=== PATIENT | male | born 1940 | race Caucasian/White ===

== ENCOUNTER 2019-11-04 10:04 | Emergency (ER) | payer MEDICARE, SELFPAY ==
[2019-11-04 10:05] VITALS: BP 131/73; PULSE 64; RESP 18; TEMP 36.6; O2SAT 96; BMI 24.3
--- NOTE | 2019-11-04 10:18 | NURSING ---
NO OLD EKGS
--- NOTE | 2019-11-04 10:25 | CT_ITS ---
STUDY: CT BRAIN WITHOUT CONTRAST REASON FOR EXAM: Male, 79 years old. SYNCOPE, TRAUMA, LAC ABOVE RIGHT EYEBROW. RADIATION DOSAGE (If Supplied By Facility): CTDIvol = ( 44.99 ) mGy, DLP = ( 762.36 ) mGycm TECHNIQUE: Transaxial CT imaging of the brain was performed without administration of intravenous contrast material. Individualized dose optimization techniques were used for this CT. COMPARISON: No relevant priors. FINDINGS: Normal soft tissue structures. Normal calvarium. There is mild cerebral atrophy with widening of the extra-axial spaces and ventricular dilatation. Normal white matter tracts of the cerebral hemispheres. Normal basal ganglia and thalami. Normal brainstem. There is mild cerebellar atrophy. There is no intracranial hemorrhage. There are no findings of an acute ischemic infarction. Normal visualized paranasal sinuses. CT/Brain/Head without Contrast IMPRESSION: Chronic involutional changes of the brain. Electronically Signed: Aldo Everett, at 11:07 EDT , Service support ,
--- NOTE | 2019-11-04 10:25 | EKG12_ITS ---
Test Reason : Blood Pressure : / mmHG Vent. Rate : 061 BPM Atrial Rate : 061 BPM P-R Int : 164 ms QRS Dur : 092 ms QT Int : 450 ms P-R-T Axes : 030 017 027 degrees QTc Int : 453 ms Normal sinus rhythm Normal ECG Confirmed by ESTRELLITA MANCIA, BELEN ([id number]), graphic editor RODOLFO RAMEY ([id number]) on 11/09/2019 11:04:00 AM Referred By: VERONICA Confirmed By:BELEN HARO MD
--- NOTE | 2019-11-04 10:26 | RAD_ITS ---
STUDY: X-RAY CHEST REASON FOR EXAM: Male, 79 years old. Syncopal episode TECHNIQUE: PA and lateral views of the chest. COMPARISON: None. FINDINGS: EKG electrodes are seen. Hyperinflation. Minimal increased linear markings in the lingular segment of the left upper lobe suggestive of minimal left basilar atelectasis/scarring. There is no demonstrated pleural abnormality. Normal size heart. Normal mediastinum and dee dee. Normal visualized pulmonary arteries. There is atherosclerotic calcification of the aortic arch with tortuosity. There is demineralization of the osseous structures. Normal visualized ribs, clavicles, and shoulders. There is no demonstrated abnormality of the visualized soft tissue structures of the upper abdomen. RAD/Chest PA and Lateral IMPRESSION: Hyperinflation. Mild increased linear markings in the lingular segment of the left upper lobe suggesting mild scarring and/or atelectasis. Electronically Signed: Aldo Everett, at 11:11 EDT , Service support ,
--- NOTE | 2019-11-04 10:37 | ED.DCSUM_ITS ---
History of Present Illness Chief Complaint: Syncope Informant: Patient Narrative: Patient is a 79-year-old male with a past medical history of cluster headaches who presents to the emergency department for a syncopal episode. He states that he typically gets short of breath episodes that he relates to being on verapamil. Today he became very short of breath and tried to sit down. He ended up having a syncopal episode and fell onto his right forehead causing a small laceration above his right eye. He denies ever having a syncopal episode before in the past with this. He was only out for a few seconds. He denies having any chest pain or any heart palpitations. At this time his shortness of breath has completely resolved. Denies having any symptoms whatsoever at this time. No headache, vision changes. No weakness or loss of sensation in extremity. No neck pain or back pain. He is not on any anticoagulation medications. He denies any history of heart attack, strokes or DVT/PE. He has not had any leg swelling or calf pain. No recent prolonged periods of immobility. He has a former smoking history. Denies any alcohol or drug use. He was able to ambulate after the event. Past Medical History - Allergies and Home Meds Allergies/Adverse Reactions: Allergies Penicillins Allergy (Verified 11/04/19 10:08) NEEDS FOLLOW-UP fermented products Allergy (Uncoded 11/04/19 10:09) NEEDS FOLLOW-UP Primary Care Physician: Daniel Damico MD [Primary Care Provider] - 1 Day Prior records reviewed: Yes Past Medical History: - - Cluster headaches, hypothyroidism Lives: Spouse/ Significant Other Smoking Status: Former smoker Alcohol: None Drugs: None Review of Systems All systems negative except as indicated General: Denies: Chills, Fever, Sweats Eyes: Denies: Visual changes - bilaterally, Diplopia ENT: Denies: Rhinorrhea, Sore throat Cardiovascular: Denies: Chest pain, Palpitations Respiratory: Reports: Dyspnea - Resolved. Denies: Cough, Dyspnea on exertion Gastrointestinal: Denies: Abdominal pain, Nausea, Vomiting, Diarrhea Genitourinary: Denies: Dysuria, Hematuria, Frequency Musculoskeletal: Denies: Back pain, Extremity Pain Skin: Denies: Rash, Wounds Neurological: Denies: Headache, Weakness, Numbness Physical Exam Vital Signs/Narrative: Vital Signs Temp Pulse Resp BP Pulse Ox 11/04/19 10:05 97.9 F 64 18 131/73 H 96 Inital Vital Signs reviewed: Yes General: Well nourished, Well developed, No Acute Distress Head: Normocephalic, - - 3 cm horizontal laceration at the right eyebrow. No active bleeding. Eyes: Perrl, EOMI ENT: Moist mucous membranes, No rhinorrhea, TM's clear Neck: Supple, Nontender Cardiovascular: Regular rate, Regular rhythm, No murmurs Respiratory: No distress, CTA bilaterally, Chest nontender Abdomen: Soft, Nontender, Nondistended, Normal bowel sounds Back: Nontender, Normal Inspection. Negative for: Spinal tenderness Extremities: Nontender, No edema. Negative for: Tenderness, Edema, Calf Tenderness Skin: Normal color, No rash Neurological: Alert, Oriented x3, Cranial nerves II-XII grossly intact, Normal Strength, Normal Sensation Psychological: Normal affect, Normal Mood Diagnostic/Tx/Re-eval - EKG Initial EKG Interpretation: - - Rate of 61 bpm and normal sinus rhythm. Normal intervals. Normal axis. No ST elevations or depressions appreciated. No T wave abnormalities. No prior EKG for comparison. - Medical Decision Making Patient presents the emerge department after a shortness of breath episode. He has had these shortness of breath episodes before but never passed out from them. We will do a cardiac work-up at this time. He does not have any DVT/PE r isk factors. We will do a CT scan of his head given the head trauma. Laceration will require repair. Patient states his last tetanus shot was in the last 5 years. Lab work showed the patient's creatinine to be slightly elevated. No previous lab work to compare this to. He is unaware of having this elevated before in the past. Otherwise troponin within normal limits. No EKG changes. He is not overly anemic. I did offer hospitalization for echocardiogram given the syncopal episode today. He states that he believes it is due to his shortness of breath which he has had long-term and does not want to stay in the hospital for this. I discussed risks associate with going home and having this done as an outpatient. He understands. He will need to have close follow-up for the syncopal episode, shortness of breath as well as his mildly elevated creatinine. He needs to have the sutures removed in 5 to 7 days. He is to monitor for evidence of infection. Warning signs and symptoms including any worsening shortness of breath, any more syncopal episodes or developing any chest pain he needs to return to the emerge department immediately. He understands and is agreeable with this plan. Procedures Procedure(s): Laceration repair: Informed consent was obtained before procedure started. The appropriate timeout was taken. The area was prepped and draped in the usual sterile fashion. Local anesthesia was achieved using LET. The wound was copiously irrigated. 3 6-0 Ethilon simple interrupted sutures were placed. Wound was dressed with only antibiotic ointment and anticipatory guidance, as well as standard post procedure care, was explained. Return precautions are given. The patient tolerated the procedure well without any apparent complications. Follow-up visit set for suture removal and evaluation of laceration. ED Disposition - Plan for ED Patient: Disposition: Home or Assisted Living Diagnosis: Syncope, Laceration of face Instructions: What Is Syncope?, ED Laceration All Closures Referrals: Daniel Damico MD [Primary Care Provider] - 1 Day Additional Instructions: Please contact PCP in regard to syncopal episode. Can discuss mildly elevated creatinine. Sutures will need to be removed in 5 to 7 days. Please monitor for evidence of infection.
[2019-11-04 10:40] VITALS: BP 129/72; PULSE 62; RESP 15; O2SAT 98
[2019-11-04 10:54] LABS: Absolute Lymphocyte Count 1.36 X10^3/uL (0.83-4.51); Absolute Neutrophil Count 5.3 X10^3/uL (2.0-7.7); Basophil# 0.04 X10^3/uL; Basophil% 0.5 % (0-1); Eosinophils% 1.4 % (0-5); Hematocrit 43.2 % (40-54); Hemoglobin 14.3 g/dL (13.0-16.5); Lymphocyte # 1.36 X10^3/ul (4.0); Lymphocyte % 18.5 % (19-41); Mean Corp Hgb Conc 33.1 g/dL (32-36); Mean Corpuscular Hgb 31.7 pg (27.0-32.0); Mean Corpuscular Volume 95.8 fL (80-94); Mean Platelet Vol. 10.5 fl (6.2-12.0); Monocyte# 0.49 X10^3/uL; Monocyte% 6.7 % (0-10); NRBC Flagged by Analyzer 0 % (0-5); Neutrophil # 5.34 X10^3/uL (2.7-7.7); Neutrophil % 72.6 % (47-70); Platelet Count 183 K/mm3 (150-450); RBC Distribution Width CV 11.7 % (11.6-14.6); Red Blood Count 4.51 M/mm3 (4.6-6.2); White Blood Count 7.4 K/mm3 (4.4-11.0)
[2019-11-04 11:10] LABS: Anion Gap 6 (5-15); BUN 23 mg/dL (7-18); BUN/Creat Ratio 15.1 RATIO (10-20); Chloride 101 mmol/L (98-107); Creatinine, Serum 1.52 mg/dL (0.70-1.30); EST Glomerular Filtration Rate 47 mL/min (>60); Est Glom Filt Rate - Afr Amer 57 mL/min (>60); Estimated Creatinine Clearance 40.69 ml/min; Glucose 172 mg/dL (74-106); Potassium 4.4 mmol/L (3.5-5.1); Sodium Level 137 mmol/L (136-145)
[2019-11-04] MEDS: Lidocaine/Epi/Tetracaine 50 ML 1 APPLIC TOPICAL (11:10)
[2019-11-04 11:55] VITALS: BP 132/67; PULSE 70; RESP 18; O2SAT 96
== END 2019-11-04 11:55 | disposition home or self-care (01) ==
PROVIDERS: Emergency Provider Emergency Medicine; PCP Family Medicine
DX: R55 Syncope and collapse (principal); S01.111A Laceration without foreign body of right eyelid and periocular area, initial encounter; X58.XXXA Exposure to other specified factors, initial encounter; Y93.89 Activity, other specified; Y92.9 Unspecified place or not applicable; E03.9 Hypothyroidism, unspecified; Z87.891 Personal history of nicotine dependence
CPT/HCPCS: 12013; 70450; 71046; 80048; 84484; 85025; 93005; 99284; A4216

== ENCOUNTER → 2019-11-24 14:44 | Outpatient (CLI) | payer MEDICARE, SELFPAY ==
[2019-11-04 10:05] VITALS: BMI 24.3
--- NOTE | 2019-11-24 14:47 | ECHOD_ITS ---
Reason For Study: Syncope Procedure This was a 2D Doppler, Color Flow transthoracic echocardiogram. Contrast injection was performed. Exam performed in department. Left Ventricle Normal LV size. Left ventricular systolic function is normal. The estimated ejection fraction is 60 %. Diastolic function is indeterminate. No regional wall motion abnormalities noted. Right Ventricle Normal RV size. Normal systolic function. Atria Normal left atrium. Normal right atrium. No doppler evidence for ASD. Bubble contrast study negative for right to left interatrial shunt. Mitral Valve There is no mitral annular calcification. Mild diffuse mitral valve thickening. Equivocal mitral valve prolapse. Mild (1+) mitral valve insufficiency. Tricuspid Valve Normal tricuspid valve. Mild tricuspid valve insufficiency. Right ventricular systolic pressure estimated to be 19 mmHg. Aortic Valve Trisinus/trileaflet aortic valve. Mild diffuse aortic valve thickening. Mild focal aortic valve calcification. Aortic sclerosis, no stenosis. Pulmonic Valve The pulmonic valve is not well visualized. Trivial pulmonic valve insufficiency. Great Vessels Normal sized aortic root. Pericardium/Pleural No pericardial effusion. Medication 22 gauge I.V. with prn adaptor inserted into right arm. Performed a rapid injection of agitated mix of 9 cc saline and 1cc air to assess for atrial septal defect. MMode/2D Measurements & Calculations LVIDd: 5.0 cm IVSd: 0.90 cm LVOT diam: 2.3 cm LVIDs: 2.9 cm LVPWd: 0.80 cm RVDd: 4.2 cm FS: 43.0 % LVOT area: 4.1 cm2 Ao root diam: 3.8 cm LAV(MOD-bp): 57.6 ml LA A4 area: 15.7 cm2 LA dimension: 3.7 cm LAV(MOD-bp) Indexed: 29.6 ml/m2 LAV(MOD-sp2): 70.9 ml LAV(MOD-sp4): 42.7 ml RA A4 area: 22.5 cm2 Time Measurements MV dec time: 0.23 sec Doppler Measurements & Calculations MV E max paolo: 70.6 cm/sec Lat Peak E' Paolo: 6.9 cm/sec Med Peak E' Paolo: 4.3 cm/sec MV A max paolo: 85.3 cm/sec E/E' lat: 10.2 E/E' med: 16.3 MV E/A: 0.83 MV V2 max: 77.6 cm/sec MV P1/2t max paolo: 63.1 cm/sec Ao V2 max: 103.5 cm/sec MV max P.4 mmHg MV P1/2t: 138.8 msec Ao max P.3 mmHg MV V2 mean: 40.6 cm/sec MV dec slope: 133.1 cm/sec2 JUAN CARLOS(V,D): 4.0 cm2 MV mean P.77 mmHg MV V2 VTI: 32.2 cm MVA(P1/2t): 1.6 cm2 AI max paolo: 193.4 cm/sec LV V1 max: 102.7 cm/sec PA V2 max: 84.7 cm/sec AI max P.1 mmHg LV V1 max P.2 mmHg AI dec slope: 123.6 cm/sec2 AI P1/2t: 458.1 msec TR max paolo: 197.8 cm/sec TR max P.7 mmHg Interpretation Summary Left ventricular systolic function is normal. The estimated ejection fraction is 60 %. Mild diffuse mitral valve thickening. Equivocal mitral valve prolapse. Mild (1+) mitral valve insufficiency. Mild tricuspid valve insufficiency. Aortic sclerosis, no stenosis. Trivial pulmonic valve insufficiency. Right ventricular systolic pressure estimated to be 19 mmHg. Diastolic function is indeterminate. Bubble contrast study negative for right to left interatrial shunt. Ordering Physician: Zelalem Mukherjee Referring Physician: Zelalem Mukherjee Performed By: Ivan Lancaster RCS
== END ==
PROVIDERS: PCP Family Medicine; Referring Provider Nurse Practitioner Family; Visit Provider Nurse Practitioner Family
DX: R55 Syncope and collapse (principal)
CPT/HCPCS: 93306

== ENCOUNTER 2023-07-14 08:25 | Emergency (ER) | payer MEDICARE, SELFPAY ==
[2023-07-14 08:26] VITALS: BP 159/90; PULSE 73; RESP 18; TEMP 35.9; O2SAT 98; BMI 25.0
--- NOTE | 2023-07-14 08:51 | EX.ED.DYSGE1 ---
HPI History of Present Illness Chief Complaint: Nosebleed Informant: patient Narrative Narrative: Patient with 1-1.5 hours of spontaneous onset left-sided nosebleed, swallowing some blood,, no injury, no recent URI or blowing his nose, started out of nowhere while he was walking from 1 room to the other. No systemic symptoms or lightheadedness/near syncope symptoms of blood loss. Takes no antiplatelet or anticoagulant medications. PFSH PFSH Home Medications levothyroxine 112 mcg tablet 112 mcg PO DAILY 11/04/19 [History Last Taken 07/14/23] tamsulosin 0.4 mg capsule 0.4 mg PO QHS 11/04/19 [History Last Taken 07/14/23] verapamil 80 mg tablet 2 tab PO QHS 11/04/19 [History Last Taken Unknown] Allergy/AdvReac Type Severity Reaction Status Date / Time Penicillins Allergy NEEDS Verified 07/14/23 08:25 FOLLOW-UP fermented products Allergy NEEDS Uncoded 11/04/19 10:09 FOLLOW-UP Social History Smoking Status: Former smoker ROS ROS ED Constitutional Constitutional ED: Denies chills or fever(s) ENT ENT ED: Reports epistaxis; Denies ear pain, facial pain or sore throat Cardiovascular Cardiovascular: Denies chest pain, lightheadedness or palpitations Respiratory/Chest Respiratory/Chest: Denies dyspnea Gastrointestinal Gastrointestinal: Denies nausea or vomiting Integumentary Denies rash Neurologic Neurologic: Denies headache(s), paresthesias or weakness EXAM Physical Exam Const Vital Signs: 07/14/23 08:26 Temperature 96.6 F L Temperature Source Temporal Pulse Rate 73 Respiratory Rate 18 Blood Pressure 159/90 H Blood Pressure Mean 113 Pulse Ox 98 Oxygen Delivery Method Room Air Positive well nourished and well developed General Appearance ED: well developed and NAD HEENT Reports moist mucous membranes HEENT Narrative: Some blood in the posterior oropharynx, no active bleeding. Blood in the left naris, the right side is clear. There appears to be a source at the septum anteriorly left naris. It is not appear to be actively bleeding. Eyes PERRL and EOMs intact bilaterally Chest Wall inspection of chest normal and palpation of chest normal Neuro oriented x3, CN's II-XII intact bilaterally, no sensory deficits noted and gait normal Motor Exam: strength 5/5 throughout Psych mental status grossly normal Skin no rashes or lesions noted and no wounds MDM MDM MDM Narrative Medical decision making narrative: Epistaxis care: Patient was observed for short period time while we waited for pharmacy to send his medications, and when I got them to evaluate him, he states the bleeding seems to stop, and he is a breathing air through the left side without difficulty, I removed a small clot when I removed the Kleenex from his nose, but he has no other feelings of residual clotting/clots. Therefore I placed an Afrin-soaked pledget into his left naris, observed him for 20 minutes and then removed it for further inspection. The nidus appears to have no active bleeding at the septum, there are 2 of them; these was then chemically cauterized with silver nitrate, which he tolerated well without difficulty or complication. His vital signs are normal without tachycardia and he has no symptoms of anemia so I do not think we need to check blood counts here he did not lose a lot of blood according to him. Discharge Plan Triage Chief Complaint: Nosebleed ED Provider: Salomon Marquez Dx/Rx/DC Orders Clinical Impression: Acute anterior epistaxis Instructions: ED Epistaxis (Adult) Prescriptions: No Action verapamil 80 MG tablet 2 tab PO QHS tamsulosin 0.4 MG capsule 0.4 mg PO QHS levothyroxine 112 MCG tablet 112 mcg PO DAILY Primary Care Provider: Daniel Damico Referrals: Daniel Damico MD [Primary Care Provider] - As Needed Disposition Disposition: Home, Self Care
[2023-07-14] MEDS: Oxymetazoline 0.05% 1 SPRAY SPRAY.BTL 2 SPRAY NASAL (09:20)
[2023-07-14 10:49] VITALS: RESP 16
== END 2023-07-14 10:53 | disposition home or self-care (01) ==
PROVIDERS: Emergency Provider Emergency Medicine; PCP Family Medicine; Visit Provider Emergency Medicine
DX: R04.0 Epistaxis (principal); Z87.891 Personal history of nicotine dependence; Z79.899 Other long term (current) drug therapy
CPT/HCPCS: 30901; 99282

== ENCOUNTER 2025-02-24 07:50 | Inpatient (IN) | payer MEDICARE, SELFPAY ==
[2025-02-24] VITALS (23 sets, daily range): BP systolic 107–173; BP diastolic 66–106; PULSE 60–78; RESP 16–18; TEMP 36.2–37.2; O2SAT 96–99; BMI 23.5; BMI 24.6
--- NOTE | 2025-02-24 08:30 | RAD_ITS ---
PROCEDURE: RAD/Chest 1 View (Portable)
[2025-02-24 08:41] LABS: Hematocrit 43.4 % (40-54); Hemoglobin 14.4 g/dL (13.0-16.5); Immature Granulocytes Count 0.030 X10^3/uL (0.0-0.0); Mean Corp Hgb Conc 33.2 g/dL (32-36); Mean Corpuscular Volume 93.3 fL (80-94); Mean Platelet Vol. 9.8 fl (6.2-12.0); NRBC Flagged by Analyzer 0 % (0-5); Platelet Count 225 K/mm3 (150-450); RBC Distribution Width CV 12.2 % (11.6-14.6); RBC Distribution Width SD 42.0 fl (35.1-43.9); Red Blood Count 4.65 M/mm3 (4.6-6.2); White Blood Count 9.3 K/mm3 (4.4-11.0)
[2025-02-24 09:05] LABS: Anion Gap 9 (5-15); BUN 19 mg/dL (4-19); BUN/Creat Ratio 16.7 RATIO (10-20); Calcium,Total 9.4 mg/dL (7.6-11.0); Carbon Dioxide 24.9 mmol/L (21.0-32.0); Chloride 100 mmol/L (98-108); Estimated Creatinine Clearance 50.24 ml/min (50-250); Glucose 148 mg/dL (70-99); Potassium 4.1 mmol/L (3.3-5.1)
[2025-02-24 09:06] LABS: Troponin T High Sensitivity 218 ng/L (<=22)
--- NOTE | 2025-02-24 09:31 | ED.VIS.CHEST ---
HPI History of Present Illness Chief Complaint: Shortness of Breath Informant: patient Narrative Narrative: Patient is an 85-year-old male with a history of HTN presenting with dyspnea and chest tightness on exertion for the past 3-4 days. Resolves with rest. - Reports onset of symptoms yesterday while walking; typically walks 4 blocks, but experienced dyspnea and right-sided chest tightness after 2 blocks, prompting him to stop. - Symptoms worsened in the afternoon with more severe pain and difficulty taking deep breaths; pain described as a tightness in the right upper chest. - Symptoms resolve within 5-10 minutes of rest. - This morning, experienced similar symptoms after walking 1 block. - Denies diaphoresis, syncope, abdominal pain, or emesis. - Recent medication change on Saturday: increased verapamil from 80 mg to 120 mg ER for HTN management; has a 25-year history of verapamil use for headaches, but this is the first time using the ER formulation. - Consulted with a physician yesterday regarding the possibility of medication-related symptoms; was advised that symptoms are unlikely related to the medication change. - No known cardiac history; last stress test was 4-6 years ago, with no reported abnormalities. [facility] Medical History Hypertension Home Medications ?Medication ?Instructions ?Recorded ?Last Taken ?Type tamsulosin 0.4 mg capsule 0.8 mg PO QHS prostate 11/04/19 07/14/23 History aspirin 81 mg tablet,delayed 81 mg PO BREAKFAST #0 tabs 02/24/25 Unknown Rx release atorvastatin 40 mg tablet 40 mg PO QHS #0 tabs 02/24/25 Unknown Rx finasteride 5 mg tablet 5 mg PO QHS prostate 02/24/25 02/23/25 History levothyroxine 100 mcg tablet 100 mcg PO DAILY thyroid 02/24/25 02/24/25 History (Synthroid) losartan 100 mg tablet 100 mg PO QHS BP 02/24/25 02/23/25 History melatonin 3 mg capsule 9 mg PO QHS sleep 02/24/25 02/23/25 History metoprolol tartrate 25 mg tablet 25 mg PO BID #0 tabs 02/24/25 Unknown Rx multivit,Ca,min-iron 8 mg-folic 1 tab PO DAILY supplement 02/24/25 02/24/25 History acid 200 mcg-lycopene 600 mcg tablet (Men's Daily Multivitamin) verapamil 120 mg tablet,extended 120 mg PO QHS bp 02/24/25 Unknown History release Allergy/AdvReac Type Severity Reaction Status Date / Time Penicillins Allergy NEEDS Verified 02/24/25 07:51 FOLLOW-UP fermented products Allergy NEEDS Uncoded 11/04/19 10:09 FOLLOW-UP Surgical History (Updated 02/24/25 @ 12:51 by Sherie Izaguirre) History of meniscectomy of left knee Social History Smoking Status: Former smoker ROS ROS ED Constitutional Constitutional ED: Denies chills or fever(s) Eyes Eyes: Denies change in vision or diplopia ENT ENT ED: Denies rhinorrhea or sore throat Cardiovascular Cardiovascular: Reports as per HPI and chest pain; Denies orthopnea, palpitations or radiating jaw, neck or arm pain Respiratory/Chest Respiratory/Chest: Reports dyspnea on exertion; Denies cough or orthopnea Gastrointestinal Gastrointestinal: Denies abdominal pain, diarrhea, nausea or vomiting Genitourinary Genitourinary ED: Denies dysuria or hematuria Musculoskeletal Musculoskeletal: Denies back pain or neck pain Integumentary Denies abscess or rash Neurologic Neurologic: Denies headache(s), paresthesias or weakness Psychiatric Psychiatric: Denies anxiety or suicidal thoughts EXAM Physical Exam Const Vital Signs: 02/24/25 07:51 02/24/25 08:08 02/24/25 08:30 Temperature 98.9 F Temperature Source Oral Pulse Rate 72 Respiratory Rate 18 Respiratory Effort Normal Respiratory Pattern Normal Blood Pressure 136/87 H Blood Pressure Mean 103 Pulse Ox 99 Oxygen Delivery Method Room Air Room Air Room Air 02/24/25 08:51 02/24/25 09:00 Temperature Temperature Source Pulse Rate 66 66 Respiratory Rate 18 18 Respiratory Effort Respiratory Pattern Blood Pressure 123/66 H 123/66 H Blood Pressure Mean 85 85 Pulse Ox 99 99 Oxygen Delivery Method Positive well nourished and well developed General Appearance ED: well developed and NAD HEENT Reports moist mucous membranes normocephalic and atraumatic Eyes PERRL and EOMs intact bilaterally Neck full ROM and supple Resp normal respiratory effort and clear to auscultation bilaterally Cardio regular rate, regular rhythm and no murmurs GI non-tender and non-distended Auscultation: normoactive bowel sounds Palpation: soft Back/Spine no CVA tenderness General Back: other FROM Extremity normal to inspection General Extremety ED: Negative for edema, pulses abnormal or tenderness General Extremity: Negative for edema or pulses abnormal Neuro oriented x3, CN's II-XII intact bilaterally and no sensory deficits noted Sensorium / Orientation: awake and alert Motor Exam: strength 5/5 throughout Skin no rashes or lesions noted and no wounds Heart Score History: Highly Suspicious ECG: Nonspecific Repolarization Age: >/= 65 years Risk Factors: 1 or 2 Risk Factors Troponin: >1 - <3 Normal Limit Score: 7 MDM MDM MDM Narrative Medical decision making narrative: Assessment: The patient is an 85-year-old male with PMH of hypertension presenting for exertional right-sided chest tightness and shortness of breath. Symptoms occur after walking 1?4 blocks and resolve within minutes of rest; no associated diaphoresis, nausea, or syncope. EKG demonstrates nonspecific ST-T wave abnormalities without ST elevation or depression, and troponin is 218, both concerning for an evolving acute coronary syndrome despite current asymptomatic status. Plan: - Administered aspirin in the ED - Pending stress test discussion after initial workup - Continue monitoring while further disposition is determined Diagnostics: - EKG interpreted: nonspecific ST-T wave abnormalities; no ST elevations or depressions. Independently interpreted by meSalomon. - Labs: Troponin 218 ng/L Reevaluations: - Patient currently asymptomatic, hemodynamically and clinically stable after initial evaluation - Discussed with cardiology Dr. Chau. He recommends Nitropaste 1 inch, Brilinta load, heparin drip all of which were started in the ED. Patient stable clinically hemodynamically and asymptomatic. Lab Data Attestation: I reviewed the patient's lab results. Labs: Laboratory Results - last 24 hr 02/24/25 08:30 WBC 9.3 RBC 4.65 Hgb 14.4 Hct 43.4 MCV 93.3 MCH 31.0 MCHC 33.2 RDW Std Deviation 42.0 RDW Coeff of Charles 12.2 Plt Count 225 MPV 9.8 Immature Gran % (Auto) 0.300 Neut % (Auto) 73.8 H Lymph % (Auto) 17.2 L [place] % (Auto) 6.5 Eos % (Auto) 1.7 Baso % (Auto) 0.5 Absolute Neuts (auto) 6.8 Absolute Lymphs (auto) 1.59 Nucleated RBC % 0 PT 13.4 INR 1.0 APTT 27.5 Sodium 135 Potassium 4.1 Chloride 100 Carbon Dioxide 24.9 Anion Gap 9 BUN 19 Creatinine 1.11 Estim Creat Clear Calc 50.24 Est GFR (MDRD) Non-Af 65 BUN/Creatinine Ratio 16.7 Glucose 148 H Calcium 9.4 Troponin T High Sens 218 H* Radiography Chest X-Ray - ED: 1 View, Read by ED Physician and No Acute Disease Diagnostic Testing: Clinical Impression(s) from Imaging Studies Chest X-Ray 02/24/25 08:30 IMPRESSION: No acute cardiopulmonary process. Reading Location: [facility] Rhythm Strip Rhythm Strip: Sinus Rhythm Rate: 75 Ectopy: PAC(s) EKG Initial EKG: Attestation: I personally reviewed and interpreted this EKG as follows: Interpretation: Sinus Rhythm, No Acute Injury Pattern, AV Block (1st deg ) and Non-Specific ST Changes (lateral ? - nonfocal) Prior EKG tracings: available for review Prior: Changed Management Discussion w/another healthcare provider: Hospitalist and Tele Marketing Executive (cardiology teagan) Critical Care Time Critical Care Time: Yes Critical care time (excluding procedures): 30-74 minutes (35 min), Including time spent:, Discussing w/Patient &/or Family/Billboard Mechanic, Discussing w/Consultants, Arranging Admission or Transfer and Performing Direct Patient Care at Bedside Discharge Plan Dx/Rx/DC Orders Clinical Impression: ACS (acute coronary syndrome) Disposition Disposition: Acute Care Hospital [facility] Discharge Date/Time: 02/24/25 10:57
--- NOTE | 2025-02-24 09:46 | PCM.HP.STD ---
HPI - General General Date of Admission: 02/24/25 Date of Service: 02/24/25 Chief Complaint: Chest pain HPI Narrative ELSA ARMENDARIZ, is a 85 M who presents with chest discomfort and shortness of breath. Per patient he was in usual state of health a day prior to his admission when he noticed chest pain which he described as discomfort across the chest. Patient stated he has a high tolerance for pain therefore did not pay attention to it much. He however did notice increasing shortness of breath on the morning of his regurgitation with minimal activity he therefore made a decision to present to the ED. Patient was found to have elevated troponin in the ED. An assessment of acute non-STEMI was made. Cardiology was consulted patient started on heparin [facility] Medical History (Updated 02/24/25 @ 10:[address] Garrick Chau MD) Hypertension Home Medications ?Medication ?Instructions ?Recorded ?Last Taken ?Type levothyroxine 112 mcg tablet 112 mcg PO DAILY 11/04/19 07/14/23 History tamsulosin 0.4 mg capsule 0.4 mg PO QHS 11/04/19 07/14/23 History verapamil 80 mg tablet 2 tab PO QHS 11/04/19 Unknown History Allergy/AdvReac Type Severity Reaction Status Date / Time Penicillins Allergy NEEDS Verified 02/24/25 07:51 FOLLOW-UP fermented products Allergy NEEDS Uncoded 11/04/19 10:09 FOLLOW-UP Social History Smoking Status: Former smoker ROS ROS Narrative GENERAL: denies fever, chills, night sweats, HEENT: denies headache, sinus congestion, or drainage, dysphagia RESPIRATORY: shortness of breath, dyspnea on exertion CARDIAC: chest pain, GASTROINTESTINAL: denies abdominal pain, nausea, GENITOURINARY: denies dysuria, urgency, frequency, EXTREMITY: denies swelling MUSCULOSKELETAL: denies current joint pain or tenderness NEUROLOGIC: denies focal numbness, weakness, tingling HEMATOLOGIC: denies easy bruising and/or hemorrhage INTEGUMENT: denies rashes PSYCHIATRIC: denies suicidal or homicidal ideation Vital Signs Vital Signs Vital Signs: 02/24/25 07:51 02/24/25 08:08 02/24/25 08:30 Temperature 98.9 F Temperature Source Oral Pulse Rate 72 Respiratory Rate 18 Respiratory Effort Normal Respiratory Pattern Normal Blood Pressure 136/87 H Blood Pressure Mean 103 Pulse Ox 99 Oxygen Delivery Method Room Air Room Air Room Air 02/24/25 08:51 02/24/25 09:00 Temperature Temperature Source Pulse Rate 66 66 Respiratory Rate 18 18 Respiratory Effort Respiratory Pattern Blood Pressure 123/66 H 123/66 H Blood Pressure Mean 85 85 Pulse Ox 99 99 Oxygen Delivery Method Weight Weight: 74.389 kg Body Mass Index (BMI) 23.5 Physical Exam Narrative GENERAL: cooperative HEENT: Atraumatic; normocephalic EYES; Anicteric, Normal Conjunctiva NECK; supple, normal thyroid, RESPIRATORY: Diminished to auscultation CARDIOVASCULAR: Regular S1 S2, GI: soft, normoactive bowel sounds, : No Renal angle tenderness; EXTREMITIES: No edema, no clubbing, MUSCULOSKELETAL: no muscle wasting NEURO: Awake; no lateralizing signs. SKIN: No Rash PSYCH; Flat affect Results Lab / Micro Data 02/24/25 08:30 02/24/25 08:30 Labs: Laboratory Results - last 24 hr 02/24/25 08:30: WBC 9.3, RBC 4.65, Hgb 14.4, Hct 43.4, MCV 93.3, MCH 31.0, MCHC 33.2, RDW Std Deviation 42.0, RDW Coeff of Charles 12.2, Plt Count 225, MPV 9.8, Immature Gran % (Auto) 0.300, Neut % (Auto) 73.8 H, Lymph % (Auto) 17.2 L, [place] % (Auto) 6.5, Eos % (Auto) 1.7, Baso % (Auto) 0.5, Absolute Neuts (auto) 6.8, Absolute Lymphs (auto) 1.59, Nucleated RBC % 0, Sodium 135, Potassium 4.1, Chloride 100, Carbon Dioxide 24.9, Anion Gap 9, BUN 19, Creatinine 1.11, Estim Creat Clear Calc 50.24, Est GFR (MDRD) Non-Af 65, BUN/Creatinine Ratio 16.7, Glucose 148 H, Calcium 9.4, Troponin T High Sens 218 H* Rhythm Strip Rhythm Strip: Sinus Rhythm Rate: 75 Ectopy: PAC(s) Imaging Radiology Impression Chest X-Ray 02/24/25 08:30 IMPRESSION: No acute cardiopulmonary process. Reading Location: [facility] Assessment & Plan Assessment/Plan (1) ACS (acute coronary syndrome): PLAN: Plan Patient is an 85-year-old gentleman presenting with exertional chest pain with elevated troponin 1. Acute non-STEMI ? Patient admitted to monitored bed treatment initiated per protocol with antiplatelet therapy heparin beta-vance statin therapy. As part of patient's management cardiology was consulted and ordered 2D echo. Patient was kept n.p.o. for possible left heart cath with intervention if warranted 2. Hypertension ? Recently diagnosed patient is on verapamil which she was apparently using for cluster headaches 3. Cluster headaches ? Patient is on verapamil 4. BPH with lower urinary obstructive symptoms - Patient treated with tamsulosin 5. Hypothyroidism ? Patient is on levothyroxine home dose continued 6. DVT prophylaxis ? On heparin drip Time spent in the patient's overall evaluation,decision-making process, review of diagnostic data, adjustment of management, discussion with other providers, nursing nursing and ancillary staff involved in patient's care documentation, 55 minutes Advance planning; did discuss with the patient and family (patient's ) regarding advanced directives as well as CODE STATUS. Did explain the various scenarios involved ( FULL CODE, DNR CCA, DNR CCA with no intubation, and DNR CC and what each meant) patient elected to remain full code with CPR and intubation if needed. Order was placed. Time spent on discussion 16 minutes. Charges/Coding Multi Select Codes Visit Charges Visit Charges: 44887 Init Hosp L2 Hospitalists' Procedures Procedures: 39766 Advncd Care Plan 30 Min
--- NOTE | 2025-02-24 09:57 | PCM.CONS.C ---
Assessment & Plan Assessment/Plan (1) ACS (acute coronary syndrome): PLAN: Patient's history is classic for accelerating angina. It started out with moderate level of activity occurring with shortness of breath and chest tightness. It resolved within about 10 minutes of stopping and resting. It is now occurring with minimal activity and still resolves after about 10 minutes of rest. ECG does not show any acute ischemic changes however his troponin is elevated 218 on the initial set. Currently the patient is pain-free. Given the patient's elevated troponin and his classic symptoms of accelerating angina I would recommend the patient undergo a left heart catheterization to define his coronary anatomy. I discussed the procedure risk/benefit and alternatives with the patient and his they voiced understanding and agreed to proceed. Dr. Moy will be performing the procedure. (2) Hypertension: QUALIFIERS: Hypertension type: primary hypertension Qualified Code(s): I10 - Essential (primary) hypertension PLAN: Patient's blood pressure is well-controlled on his current verapamil dose. However, pending the outcome of the catheterization we may recommend alternative therapy to the negative inotropic calcium channel with medication. PLAN: Plan 1. Recommend urgent left heart catheterization. Dr. Moy to perform. 2. Will address further recommendations pending outcome of the catheterization. HPI Consult Data Date of Consult: 02/24/25 HPI Narrative Reason for Consultation: Accelerating angina consistent with acute coronary syndrome HPI Narrative: ELSA ARMENDARIZ, is a 85 M who presents a several day history of progressive anginal symptoms. The patient routinely walks about 4 blocks a day. He noticed about 3 days ago that he could only walk 2 blocks and then he started to get shortness of breath with the right sided chest tightness. He stopped and rested and it went away he walked back home without incident. The next day he tried to cut his grass and he had to stop 3 times with his pushing his push more due to the symptoms with left sided discomfort and shortness of breath. It always went away after about 10 minutes of rest. This morning the patient had the same type of symptoms that occurred with minimal activity. It also resolved with rest. Currently the patient is pain-free in the emergency department. His initial troponin was 218 and his ECG shows minor nonspecific changes. He is in sinus rhythm. The patient has a past history of about 5 years ago through the [facility] been evaluated for dyspnea on exertion. The only thing that was ever found was he was deconditioned he did have a negative stress test at that point in time. He was started his walking program and was doing fine until about 3-4 days ago. The patient has no family history of coronary disease he does have a longstanding history of hypertension and is on verapamil for that. He did have a recent change from short acting to long-acting verapamil. The patient does not have a known history of hypertension related cardiomyopathy. And he has been very active. He appears to be in great shape for his 85 years of age. His renal function is normal his CBC is normal he does have an elevated glucose but he ate breakfast at about 0700 hrs. this morning. The patient is not have a history of diabetes he does not smoke he is not hyperlipidemic to his knowledge. His only risk factor is his hypertension. The patient is on thyroid replacement therapy. He follows up through Dr. Milind Ty's office at the [facility] for primary services. The patient is not allergic to iodine. [facility] Medical History (Updated 02/24/25 @ 10:[address] Garrick Chau MD) Hypertension Home Medications ?Medication ?Instructions ?Recorded ?Last Taken ?Type levothyroxine 112 mcg tablet 112 mcg PO DAILY 11/04/19 07/14/23 History tamsulosin 0.4 mg capsule 0.4 mg PO QHS 11/04/19 07/14/23 History verapamil 80 mg tablet 2 tab PO QHS 11/04/19 Unknown History Allergy/AdvReac Type Severity Reaction Status Date / Time Penicillins Allergy NEEDS Verified 02/24/25 07:51 FOLLOW-UP fermented products Allergy NEEDS Uncoded 11/04/19 10:09 FOLLOW-UP Social History Smoking Status: Former smoker ROS Constitutional Constitutional: Reports as per HPI Eyes Eyes: Reports systems reviewed and no addt'l complaints, except as documented ENT HEENT: Reports systems reviewed and no addt'l complaints, except as documented Cardiovascular Cardiovascular: Reports as per HPI Respiratory/Chest Respiratory/Chest: Reports as per HPI Gastrointestinal Gastrointestinal: Reports systems reviewed and no addt'l complaints, except as documented Genitourinary Genitourinary: Reports as per HPI Musculoskeletal Musculoskeletal: Reports as per HPI Integumentary Integumentary: Reports systems reviewed and no addt'l complaints, except as documented Neurologic Neurologic: Reports systems reviewed and no addt'l complaints, except as documented Psychiatric Psychiatric: Reports systems reviewed and no addt'l complaints, except as documented Endocrine Endocrinology: Reports as per HPI Hematologic/Lymphatic Hematologic/Lymphatic: Reports as per HPI Allergic/Immunologic Allergic/Immunologic: Reports as per HPI Physical Exam Const alert and oriented x3 Constitutional Narrative: Appears much younger than his stated age. HEENT normocephalic Eyes EOMs intact bilaterally Neck no JVD Chest inspection of chest normal Resp normal respiratory effort and clear to auscultation bilaterally Cardio Rate: regular rate Rhythm: regular rhythm Heart Sounds: S1 normal and S2 normal; Negative for click, gallop or murmur GI soft to palpation Extremity no pedal edema Neuro Neuro Narrative: Alert and oriented x 3 Psych mental status grossly normal Charges/Coding Visit Charges Inpatient E&M: 32478 Init Hosp L2 Objective Data Vital Signs: Vital Signs Temp Pulse Resp BP Pulse Ox O2 Del Method 98.9 F 66 18 123/66 H 99 Room Air 02/24/25 07:51 02/24/25 09:00 02/24/25 09:00 02/24/25 09:00 02/24/25 09:00 02/24/25 08:30 Oxygen Delivery Method Room Air Weight: 164 lb Body Mass Index (BMI) 23.5 Lab / Micro Data Attestation: I reviewed the patient's lab results. 02/24/25 08:30 02/24/25 08:30 Labs: Laboratory Results - last 24 hr 02/24/25 08:30: WBC 9.3, RBC 4.65, Hgb 14.4, Hct 43.4, MCV 93.3, MCH 31.0, MCHC 33.2, RDW Std Deviation 42.0, RDW Coeff of Charles 12.2, Plt Count 225, MPV 9.8, Immature Gran % (Auto) 0.300, Neut % (Auto) 73.8 H, Lymph % (Auto) 17.2 L, [place] % (Auto) 6.5, Eos % (Auto) 1.7, Baso % (Auto) 0.5, Absolute Neuts (auto) 6.8, Absolute Lymphs (auto) 1.59, Nucleated RBC % 0, Sodium 135, Potassium 4.1, Chloride 100, Carbon Dioxide 24.9, Anion Gap 9, BUN 19, Creatinine 1.11, Estim Creat Clear Calc 50.24, Est GFR (MDRD) Non-Af 65, BUN/Creatinine Ratio 16.7, Glucose 148 H, Calcium 9.4, Troponin T High Sens 218 H* Rhythm Strip Rhythm Strip: Sinus Rhythm Rate: 75 Ectopy: PAC(s) Cardiology Labs/Tests 02/24/25 08:30: WBC 9.3, RBC 4.65, Hgb 14.4, Hct 43.4, MCV 93.3, MCH 31.0, MCHC 33.2, Plt Count 225, MPV 9.8, Immature Gran % (Auto) 0.300, Neut % (Auto) 73.8 H, Lymph % (Auto) 17.2 L, [place] % (Auto) 6.5, Eos % (Auto) 1.7, Baso % (Auto) 0.5, Absolute Neuts (auto) 6.8, Nucleated RBC % 0, Sodium 135, Potassium 4.1, Chloride 100, Carbon Dioxide 24.9, Anion Gap 9, BUN 19, Creatinine 1.11, Est GFR (MDRD) Non-Af 65, BUN/Creatinine Ratio 16.7, Glucose 148 H, Calcium 9.4 Rhythm: EKG: ECHO: Stress Test: Cardiac Cath: PCI: CT Surgery: Holter monitor: EPS: PPM: CXR: Chest CT Scan: Radiography Diagnostic Testing: Radiology Impression Chest X-Ray 02/24/25 08:30 IMPRESSION: No acute cardiopulmonary process. Reading Location: [facility] [place]ERNA[place]TE Risk Score for UA/STEMI Assesmment (YES = 1) Risk Stratification Applicable: Yes Age > or = 65: Yes > or = 3 CAD risk factors (HTN, Hypercholesterolemia, Diabetes, family hx, current smoker): No Known CAD (Stenosis > or = 50%): No ASA used in past 7 days: No Severe angina (> or = 2 episodes in 24 hrs): Yes EKG ST change > or = 0.5mm: No Positive cardiac markers: Yes Score BERNADETTE Risk Score of mortality/ recurrent ischemic event over the next 14 days: 3 = 13.2% Intermediate Risk
[2025-02-24 10:12] LABS: Partial Thromboplast Time 27.5 Seconds (24.1-36.2); Prothrombin Time (Protime)PT. 13.4 SECONDS (11.7-14.9)
[2025-02-24] MEDS: TICAGRELOR 90 MG TABLET 180 MG PO (10:17)
[2025-02-24] MEDS: Nitroglycerin Oint 1 INCH PACKET TD (10:18)
[2025-02-24] MEDS: Heparin Injection (Vial) 5,000 UNIT/ML VIAL 4000 UNIT IV (10:20)
[2025-02-24] MEDS: HEPARIN/D5w 25,000 UNITS 25,000 UNITS/250 ML IV.SOLN. 8.9 UNITS CONT INF (10:22)
--- NOTE | 2025-02-24 10:38 | CM.ED ---
Care Management Face to Face with patient for initial transition planning/care coordination assessment in the ED.? This filing writer introduced self and role at [facility]. Patient alert and oriented. Patient willing to participate in assessment and is able to answer all questions appropriately.? Care providers, pharmacy, and demographics verified. Admitting Diagnosis: ?Chest Pain Other diagnosis history: ?Hypertension PCP: ?[facility] Specialists: ?Neurologist [facility] Insurance: ?[employer] Prescription Benefit: ?yes Living Will/HPOA: ?Patient has both completed, asked to bring in copies when able LNOK: ? Living Arrangements: ?Patient lives with in house, independent with ADls and IADls Transportation: ?patient drives DME: ?blood pressure cuff, pulse ox. HHC: ?none SNF/Rehab: ?none Community Resources: ?none Behavioral Health History: ?none Patient goals: Patient wishes to discharge home, denies need for home health care at this time. Patient denies any further needs or concerns at this time. Disposition Plan: admission to acute; RN CM/SW to follow for discharge planning needs that may arise. Marce Max, PASTRYCOOK, SAFETY BELT INSTALLER
[2025-02-24 11:24] LABS: Troponin T High Sens 2 HR 243 ng/L (<=22)
--- NOTE | 2025-02-24 12:06 | ECHOD_ITS ---
Reason For Study ECHO/Echo Complete
--- NOTE | 2025-02-24 12:24 | CASEMGMT ---
Tertiary Insurance review for hospitals In-network with [employer] MCR insurance if transfer is recommended is as follows: [facility], [facility], [place], [facility], [facility], [facility], , [facility], [facility], and [place]. Clara Jiang, Discharge Planning Asst.
[2025-02-24 12:52] LABS: Troponin T High Sens 4 HR 252 ng/L (<=22)
--- NOTE | 2025-02-24 13:26 | PCM.DC.SUM ---
Providers Date of Admission: 02/24/25 Date of Discharge: 02/24/25 Primary Care Physician: Dr. Daniel Damico MD Consultations 02/24/25 12:06 Consult: Cardiology Routine Consulting Provider: Garrick Chau Reason for Consult: Chest Pain EMERGENT Consult: No MD Notified: Yes Date Notified: 02/24/25 Time Notified: 09:53 Method of Notification: ED Physician Initiated Reason For Visit: NSTEMI Diagnosis Discharge Diagnosis (1) ACS (acute coronary syndrome): Status: Acute Code(s): I24.9 - Acute ischemic heart disease, unspecified Plan Patient is an 85-year-old gentleman presenting with exertional chest pain with elevated troponin 1. Acute non-STEMI type I ? Patient admitted to monitored bed treatment initiated per protocol with antiplatelet therapy heparin beta-megan statin therapy. As part of patient's management cardiology was consulted and ordered 2D echo. Patient was kept n.p.o. for possible left heart cath with intervention if warranted ? Patient underwent emergency left heart catheterization findings included Severe multivessel coronary artery disease. No aortic stenosis. CORONARY ANGIOGRAPHY DOMINANCE: Right Dominant LEFT MAIN: Mild luminal irregularities LEFT ANTERIOR DESCENDING ARTERY: Moderate to severely diseased in the proximal portion and in the midportion immediately after the origin of a large septal branch. There is a 90% stenosis in the mid to distal portion. DIAGONAL 1: Proximal - Severe diffuse disease DIAGONAL 2: Proximal - Severe diffuse disease CIRCUMFLEX ARTERY: PROX CIRC: 95% stenosis DISTAL CIRC: There is severe diffuse disease in the mid to distal circumflex. OM 2: Proximal - 85 % Stenosis (OM1 is a small vessel) RIGHT CORONARY ARTERY: Severe diffuse disease in the mid RCA. 80% stenosis in the distal RCA RECOMMENDATIONS Surgery consult for coronary revascularization arrangement was subsequently made by Dr. Chau for patient to be transferred to [facility] for bypass 2. Hypertension ? Recently diagnosed patient is on verapamil which she was apparently using for cluster headaches 3. Cluster headaches ? Patient is on verapamil 4. BPH with lower urinary obstructive symptoms - Patient treated with tamsulosin 5. Hypothyroidism ? Patient is on levothyroxine home dose continued 6. DVT prophylaxis ? On heparin drip Time spent in the patient's overall evaluation,decision-making process, review of diagnostic data, adjustment of management, discussion with other providers, nursing nursing and ancillary staff involved in patient's care documentation, 85 minutes Medications at Discharge Home Medications tamsulosin 0.4 mg capsule 0.8 mg PO QHS prostate 11/04/19 aspirin 81 mg tablet,delayed release 81 mg PO BREAKFAST #0 tabs 02/24/25 atorvastatin 40 mg tablet 40 mg PO QHS #0 tabs 02/24/25 finasteride 5 mg tablet 5 mg PO QHS prostate 02/24/25 levothyroxine 100 mcg tablet (Synthroid) 100 mcg PO DAILY thyroid 02/24/25 losartan 100 mg tablet 100 mg PO QHS BP 02/24/25 melatonin 3 mg capsule 9 mg PO QHS sleep 02/24/25 metoprolol tartrate 25 mg tablet 25 mg PO BID #0 tabs 02/24/25 multivit,Ca,min-iron 8 mg-folic acid 200 mcg-lycopene 600 mcg tablet (Men's Daily Multivitamin) 1 tab PO DAILY supplement 02/24/25 verapamil 120 mg tablet,extended release 120 mg PO QHS bp 02/24/25 Physical Exam Narrative GENERAL: cooperative HEENT: Atraumatic; normocephalic EYES; Anicteric, Normal Conjunctiva NECK; supple, normal thyroid, RESPIRATORY: Diminished to auscultation CARDIOVASCULAR: Regular S1 S2, GI: soft, normoactive bowel sounds, : No Renal angle tenderness; EXTREMITIES: No edema, no clubbing, MUSCULOSKELETAL: no muscle wasting NEURO: Awake; no lateralizing signs. SKIN: No Rash PSYCH; Flat affect Weight / BMI Weight Weight: 77.791 kg Body Mass Index (BMI) 24.6 ABG / Lab / Microbiology Data 02/24/25 08:30 02/24/25 08:30 Laboratory: Laboratory Results - last 24 hr 02/24/25 08:30: WBC 9.3, RBC 4.65, Hgb 14.4, Hct 43.4, MCV 93.3, MCH 31.0, MCHC 33.2, RDW Std Deviation 42.0, RDW Coeff of Charles 12.2, Plt Count 225, MPV 9.8, Immature Gran % (Auto) 0.300, Neut % (Auto) 73.8 H, Lymph % (Auto) 17.2 L, [place] % (Auto) 6.5, Eos % (Auto) 1.7, Baso % (Auto) 0.5, Absolute Neuts (auto) 6.8, Absolute Lymphs (auto) 1.59, Nucleated RBC % 0, PT 13.4, INR 1.0, APTT 27.5, Sodium 135, Potassium 4.1, Chloride 100, Carbon Dioxide 24.9, Anion Gap 9, BUN 19, Creatinine 1.11, Estim Creat Clear Calc 50.24, Est GFR (MDRD) Non-Af 65, BUN/Creatinine Ratio 16.7, Glucose 148 H, Calcium 9.4, Troponin T High Sens 218 H* 02/24/25 10:30: Troponin T Hi Sens 2 Hr 243 H* 02/24/25 12:15: Troponin T Hi Sens 4Hr 252 H* Radiography Diagnostic Testing: Radiology Impression Chest X-Ray 02/24/25 08:30 IMPRESSION: No acute cardiopulmonary process. Reading Location: [facility] Echocardiogram 02/24/25 12:06 Interpretation Summary Mild concentric left ventricular hypertrophy. The left ventricular ejection fraction is 65 %. Stage 1 diastolic dysfunction. The left atrium is moderately enlarged. Moderate-Severe (3+) mitral valve insufficiency. Mild (1+) tricuspid valve insufficiency. Moderately thickened aortic valve. Aortic valve sclerosis without stenosis. Mild aortic valve regurgitation. Small loculated pericardial effusion anteriorly. Ordering Physician: Anibal Shore Referring Physician: Daniel Damico Performed By: Santino ANGULO RDCS, Raquel and Student D/C Instructions DC O2, CPAP, BIPAP Needs Home O2 Discharge instructions: No Meaningful Use Info Meaningful Use Meaningful Use Diagnoses (Choose all that apply): AMI AMI/Post PCI/Angioplasty Aspirin given w/in 24hrs of arrival?: Yes ASA at discharge?: Yes Antiplatelet Therapy at Discharge:: No Reason Antiplatelet Therapy not ordered:: Transferred for bypass Statins at discharge?: Yes Clive/ARB at discharge?: Yes Reason Clive/ARB not ordered:: Not indicated Beta Megan at discharge?: Yes Done w/ Acute TN measure.: Yes Discharge Plan Admission Admit Date/Time: 02/24/25 09:46 Attending Provider: Anibal Shore Primary Care Provider: Daniel Damico Consulting Providers: Garrick Chau Discharge Orders/Prescriptions Prescriptions: New atorvastatin 40 mg Tablet 40 mg PO QHS Qty: 0 0RF aspirin 81 mg Tablet,Delayed Release (Dr/Ec) 81 mg PO BREAKFAST Qty: 0 0RF metoprolol tartrate 25 mg Tablet 25 mg PO BID Qty: 0 0RF Continued tamsulosin 0.4 MG capsule 0.8 mg PO QHS levothyroxine [Synthroid] 100 mcg tablet 100 mcg PO DAILY losartan 100 mg tablet 100 mg PO QHS finasteride 5 mg tablet 5 mg PO QHS verapamil 120 mg tablet extended release 120 mg PO QHS melatonin 3 mg capsule 9 mg PO QHS Men's Daily Multivitamin 8 mg iron- 200 mcg-600 mcg tablet 1 tab PO DAILY Discontinued verapamil 80 MG tablet 2 tab PO QHS levothyroxine 112 MCG tablet 112 mcg PO DAILY Referrals / Follow Up: Daniel Damico MD [Primary Care Provider, Family Practice] Disposition Disposition (needs filled in before D/C Order can be placed): Acute Care Hospital Charges/Coding Visit Charges OBSV E&M: 80630 Observ/hosp same date L3
--- NOTE | 2025-02-24 13:45 | PHA.DC_ITS ---
Pharmacy DC Med Reconciliation
--- NOTE | 2025-02-24 13:45 | PHA.DC.MR.R ---
Pharmacy IN Med Reconciliation Pharmacy Service has performed discharge medication reconciliation for this patient. The patient's discharge medication list was reviewed for discrepancies and discrepancies were resolved. Medications at Discharge Home Medications levothyroxine 112 mcg tablet 112 mcg PO DAILY 11/04/19 tamsulosin 0.4 mg capsule 0.8 mg PO QHS prostate 11/04/19 verapamil 80 mg tablet 2 tab PO QHS 11/04/19 aspirin 81 mg tablet,delayed release 81 mg PO BREAKFAST #0 tabs 02/24/25 atorvastatin 40 mg tablet 40 mg PO QHS #0 tabs 02/24/25 finasteride 5 mg tablet 5 mg PO QHS prostate 02/24/25 levothyroxine 100 mcg tablet (Synthroid) 100 mcg PO DAILY thyroid 02/24/25 losartan 100 mg tablet 100 mg PO QHS BP 02/24/25 melatonin 3 mg capsule 9 mg PO QHS sleep 02/24/25 metoprolol tartrate 25 mg tablet 25 mg PO BID #0 tabs 02/24/25 multivit,Ca,min-iron 8 mg-folic acid 200 mcg-lycopene 600 mcg tablet (Men's Daily Multivitamin) 1 tab PO DAILY supplement 02/24/25 verapamil 120 mg tablet,extended release 120 mg PO QHS bp 02/24/25
[2025-02-24] MEDS: 0.9% Normal Saline (1000mL) 1,000 ML 75 ML IV (13:55)
[2025-02-24] MEDS: 0.9% Saline Lock 10 ML Syringe IV ×2 (13:55→18:25)
--- NOTE | 2025-02-24 23:18 | NURSING ---
Nursing report called to [facility] @ [phone]- gave report to ANIRUDH Henao. Also called pt.'s , Christine, @ [phone], in order to update her that pt. had left with transport per pt.'s request.
== END 2025-02-24 22:37 | disposition short-term general hospital (02) | DRG 282 ==
LOC: ED 10:08 → PCU 10:13
PROVIDERS: Admitting Provider Internal Medicine; Emergency Provider Emergency Medicine; PCP Family Medicine; Referring Provider Specialist; Visit Provider Internal Medicine
DX: I21.4 Non-ST elevation (NSTEMI) myocardial infarction (principal); E03.9 Hypothyroidism, unspecified; I10 Essential (primary) hypertension; G44.009 Cluster headache syndrome, unspecified, not intractable; I25.110 Atherosclerotic heart disease of native coronary artery with unstable angina pectoris; N40.1 Benign prostatic hyperplasia with lower urinary tract symptoms; Z79.890 Hormone replacement therapy; Z79.899 Other long term (current) drug therapy; Z87.891 Personal history of nicotine dependence
CPT/HCPCS: 71045; 80048; 84484; 85025; 85610; 85730; 93005; 93306; 93458; 99152; 99153; 99285; C1894; Q9957; Q9967; A4216; C1769

== ENCOUNTER 2025-03-19 14:50 | Inpatient (IN) | payer MEDICARE, SELFPAY ==
[2025-03-19 15:04] VITALS: BP 111/62; PULSE 79; RESP 14; TEMP 35.6; O2SAT 98; BMI 25.2
[2025-03-19 15:11] VITALS: BP 111/62; PULSE 79; RESP 14; TEMP 35.6; O2SAT 98
--- OUTSIDE RECORDS SUMMARY | 2025-03-19 15:18 | XMS RPT_ITS | CCD ---
Author Organization [facility] Care Team Providers Care Surgeon/President Name Role Phone Jeremias Damico MD Primary Care Provider Jeremias Damico MD Primary Care Provider [place] THORACIC MEDICINE SPECIALIST.Diana HENDRCIKS Unavailable Unavail able Renaldo THORACIC MEDICINE SPECIALIST.Zeeshan HENDRICKS Unavailable [place] THORACIC MEDICINE SPECIALIST.Diana HENDRICKS Unavailable [phone] ELDERBROCK, JEREMIAS Primary Care Unavailable ELDERMICHELLE, JEREMIAS Attending Unavailable ELDERMICHELLE, JEREMIAS Primary Care Unavailable ELDERBROTIMUR, JEREMIAS Referring Unavailable ELDERBROCK, JEREMIAS Primary Care Unavailable ELDERBROTIMUR, JEREMIAS Attending Unavailable ELDERBROTIMUR, JEREMIAS Primary Care Unavailable SHAQ BISHOP Attending Unavailable ELDERMICHELLE, JEREMIAS Primary Care Unavailable ELDERBROTIMUR, JEREMIAS Referring Unavailable ELDERBROTIMUR, JEREMIAS Attending Unavailable ELDERBROTIMUR, JEREMIAS Primary Care Unavailable SNOW BROOKS Attending Unavailable ELDERBROCK, JEREMIAS Primary Care Unavailable ELDERBROCK, JEREMIAS Attending Unavailable ELDERBROCK, JEREMIAS Primary Care Unavailable ELDERBROTIMUR, JEREMIAS Attending Unavailable Elderbrock, Jeremias Primary Care Unavailable Anibal Shore Admitting Unavailable Anibal Shore Consulting Unavailable Anibal Shore Attending Unavailable Shawn Chau Attending Unavailable Margaux, Jeremias Primary Care Unavailable KitAnibal rodriguez Attending Unavailable Shawn Chau Consulting Unavailable Nagaaustin, Nagapradenaresh Referring Unavailabl e Elderbrock, Jeremias Primary Care Unavailable Anibal Shore Admitting Unavailable Margaux, Jeremias Primary Care Unavailable Donna Ndiaye Attending Unavailable SHAWN CHAU Referring Unavail able YULISSA THORNTON Admitting Unavaila OMARI Cummings Attending Unavailable JOHN SAGASTUME Consulting Unavailable ЕКАТЕРИНА TAVERAS Primary Care Unavailab le Allergies Allergy Classification Reported Allergen(s) Allergy Type Date of Onset Reaction(s) Facility (20 sources) Cheese; Translations: [CHEESE (SEE VEGETABLE GUM)] Propensity to adverse reactions 5 [facility] Work Phone: (20 sources) Mold Extract; Translations: [MOLD] Drug Allergy 5 [facility] Work Phone: (20 sources) Penicillin G; Translations: [PENICILLIN G] Drug Allergy 5 [facility] (20 sources) Pollen; Translations: [POLLEN] Propensity to adverse reactions 5 [facility] Work Phone: (20 sources) dairy products [Other] Propensity to adverse reactions 1 Other: See Comments, Unknown [facility] (20 sources) Vinegar; Translations: [VINEGAR] Propensity to adverse reactions 5 [facility] Work Phone: (1 source) Penicillins Allergy to substance 4 NEEDS FOLLOW-UP [facility] (2 sources) fermented products; Translations: [fermented products] Allergy to substance 0 NEEDS FOLLOW-UP [facility] (16 sources) Milk; Translations: [MILK CONTAINING PRODUCTS (DAIRY)] Drug Intolerance 4 Intolerance [facility] (1 source) Penicillins Drug allergy (disorder) 5 [facility] Repository Medications Current Medications Medication Drug Class(es) Dates Sig (Normalized) Sig (Original) docusate sodium 100 mg oral capsule (20 sources) Start: 05-12-2007 docusate sodium([email or web address] LIQUI-GELS 100 MG CAP) Take by mouth once daily. 0 05/12/2007 Active Start: 05-12-2007 docusate sodiu m([email or web address] LIQUI-GELS 100 MG CAP) 3 per day 0 05/12/2007 Active Comment on above: 3 per day Take by mouth once d aily. finasteride 5 mg oral tablet (20 sources) 5-alpha Reductase Inhibitor Start: 01-16-2023 End: 12-17-2024 take 1 tablet by mouth once daily finasteride (PROSCAR) 5 mg tablet Take 1 tablet by mouth once daily. 90 tablet 3 12/17/2024 Active Start: 01-30-2022 take 1 tablet by rosette th once daily finasteride (PROSCAR) 5 mg tablet Take 1 tablet by mouth once daily. 90 tablet 3 01/30/2022 Active Comment on above: Take 1 tablet by rosette th once daily. levothyroxine sodium 0.1 mg oral tablet (20 sources) l-Thyroxine Start: 2 End: 5 take 1 tablet by mouth once daily levothyroxine (SYNTHROID) 100 mcg tablet Indications: Acquired hypothyroidism Take 1 tablet by mouth once daily. 90 tablet 4 12/17/2024 Active Start: 11-04-2019 End: 01-19-2022 levothyroxine (SYNTHROID) 11 2 mcg tablet Indications: Acquired hypothyroidism TAKE 1 TABLET DAILY 90 tablet 3 02/16/2021 01/19/2022 Discontinued Comment on above: TAKE 1 TABLET DAILY Take 1 tablet by rosette th once daily. losartan potassium 100 mg oral tablet (7 sources) Angiotensin 2 Receptor Vance Start: 5 take 1 tablet by mouth once daily losartan (COZAAR) 100 mg tablet Indications: Primary hypertension Take 1 tablet by mouth once daily. 30 tablet 5 11/19/2024 Active Start: 10-13-2024 End: 11-19-2024 take 1 tablet by mouth once daily losartan (COZAAR) 50 mg tablet Indications: Primary hypertension Take 1 tablet by mouth once daily. 30 tablet 5 10/13/2024 11/19/2024 Discontinued Start: 09-04-2024 End: 10-13-2024 take 1 tablet by mouth once daily losartan (COZAAR) 25 mg tablet Indications: Primary hypertension Take 1 tablet by mouth once daily. 30 tablet 5 09/04/2024 10/13/2024 Discontinued melatonin 3 mg oral tablet (20 sources) Start: 07-15-2008 take 2 tablets by mouth once daily at bedtime MELATONIN 3 MG TAB Take 6 mg by mouth daily at bedtime. 0 07/15/2008 Active Start: 07-15-2008 take 1 tablet by rosette th once daily at bedtime MELATONIN 3 MG TAB Take 3 mg by mouth daily at bedtime. 0 07/15/2008 Active Comment on above: take 3 tablets daily at bedtime. Take 3 mg by mouth d aily at bedtime. tamsulosin hydrochloride 0.4 mg oral capsule (20 sources) alpha-Adrenergic Vance Start: 3 End: take 2 capsules by mouth once daily tamsulosin (FLOMAX) 0.4 mg Take 2 capsules by mouth once daily. 180 capsule 3 12/17/2024 Active Start: 05-29-2021 End: 05-01-2022 take 2 capsules by mouth once daily tamsulosin (FLOMAX) 0.4 mg Indications: Erectile dysfunction due to diseases classified elsewhere Take 2 capsules by mouth once daily. 180 capsule 3 05/29/2021 05/01/2022 Discontinued Start: 11-04-2019 take 0.4 mg by mouth at bedtim e Tamsulosin Active 0.4 MG PO AT BEDTIME November 04, 2019 12:00am Comment on above: Take 2 capsules by m outh once daily. therapeutic multivitamin ORAL tablet (20 sources) Start: 03-14-2010 therapeutic multivitamin ORAL tablet Take by mouth once daily. 0 03/14/2010 Active Start: 03-14-2010 take 1 tablet by rosette th once daily therapeutic multivitamin ORAL tablet Take one(1) tablet daily. 0 03/14/2010 Active Comment on above: Take one(1) tablet d aily. Take by mouth once d aily. verapamil hydrochloride 80 mg oral tablet (20 sources) Calcium Channel Vance Start: 12-17-2024 verapamil 80 mg tablet Indications: Episodic cluster headache, not intractable Take 1 po at night 90 tablet 3 12/17/2024 Active Start: 01-19-2022 End: 02-16-2022 verapamil (CALAN, ISOPTIN) 8 0 mg tablet Indications: Episodic cluster headache, not intractable Take 2 tablet po at night 360 tablet 3 01/19/2022 02/16/2022 Discontinued Start: 11-04-2019 End: 09-04-2024 verapamil 80 mg tablet Indic ations: Episodic cluster headache, not intractable Take one(1) tablet two(2) times daily. 180 tablet 3 09/02/2023 09/04/2024 Discontinued Comment on above: Take 1 po in the am and 3 po at night Take 2 tablet po at night Take 1 po at night Take one(1) tablet t wo(2) times daily. Completed/Discontinued Medications Medication Drug Class(es) Dates Sig (Normalized) Sig (Original) sildenafil 100 mg oral tablet (20 sources) Phosphodiesterase 5 Inhibitor Start: 08-30-2020 End: 12-31-2023 sildenafil (VIAGRA) 100 mg tablet 1 tablet 30 min prior to intercourse, on empty stomach and with sexual stimulation immediately following. 30 tablet 3 05/01/2022 12/31/2023 Discontinued Comment on above: Take 1 tablet by rosette th as directed. 1 tablet 30 min prio r to intercourse, on empty stomach and with sexual stimulation immediately following. 0.5 ml SUMAtriptan 12 mg/ml cartridge (20 sources) Serotonin-1b and Serotonin-1d Receptor Agonist Start: 03-22-2021 End: 12-17-2024 inject 0.5 mL by subcutaneous injection every hour as needed for headache SUMAtriptan (IMITREX STATDOSE PEN) 6 mg/0.5 mL pen Inject 0.5 mL subcutaneously as needed (at onset of headache. May repeat after 1 hour.). 6 mL 11 01/30/2024 12/17/2024 Discontinued Comment on above: Inject 0.5 mL subcut aneously as needed (at onset of headache. May repeat after 1 hour.). traZODone hydrochloride 50 mg oral tablet (10 sources) Serotonin Reuptake Inhibitor Start: 02-01-2023 End: 01-24-2024 take 1 tablet by mouth once daily at bedtime traZODone (DESYREL) 50 mg tablet Indications: Difficulty sleeping Take 1 tablet by mouth daily at bedtime. 30 tablet 1 02/01/2023 01/24/2024 Discontinued (Course of therapy completed) Comment on above: Take 1 tablet by rosette daily at bedtime. 24 hr divalproex sodium 500 mg extended release oral tablet (1 source) Mood Stabilizer, Anti-epileptic Agent Start: 11-04-2019 End: 07-14-2023 take 1000 mg by mouth at bedtime Divalproex Discontinued 1000 MG PO AT BEDTIME November 04, 2019 12:00am July 14, 2023 9:45am Problems Active Problems Problem Classification Problem Date Documented Da te Episodic/Chronic Acute myocardial infarction (1 source) Non-ST elevation (NSTEMI) myocardial infarction; Translations: [Non-ST elevation (NSTEMI) myocardial infarction] Onset: 03-03-2025 Chronic Coronary atherosclerosis and other heart disease (1 source) Acute ischemic heart disease, unspecified; Translations: [Acute ischemic heart disease, unspecified] Onset: 03-03-2025 Chronic Essential hypertension (10 sources) Essential hypertension; Translations: [Essential (primary) hypertension] Onset: 10-13-2024 09-04-2024 Chronic Genitourinary symptoms and ill-defined conditions (1 source) Post-micturition incontinence ; Translations: [Post-void dribbling] Chronic Headache; including migraine (20 sources) Refractory migraine variants; Translations: [Migraine with aura, intractable, without status migrainosus] Onset: 02-23-2004 Resolved: 03-11-2009 03-13-2010 Chronic Hyperplasia of prostate (20 sources) Benign prostatic hypertrophy with outflow obstruction; Translations: [Benign prostatic hyperplasia with lower urinary tract symptoms] Onset: 10-28-2006 03-13-2010 Chronic Immunizations and screening for infectious disease (6 sources) Needs influenza immunization; Translations: [Encounter for immunization] Onset: 02-16-2025 Episodic Open wounds of head; neck; and trunk (1 source) Facial laceration ; Translations: [Laceration without foreign body of other part of head, initial encounter] 11-05-2019 Episodic Other diseases of bladder and urethra (20 sources) Bladder neck obstruction; Translations: [Bladder-neck obstruction] Onset: 10-28-2006 04-17-2021 Chronic Other male genital disorders (20 sources) Male erectile dysfunction, unspecified; Translations: [Impotence of organic origin] 03-11-2013 Chronic Other male genital disorders (2 sources) Secondary erectile dysfunction; Translations: [Erectile dysfunction due to diseases classified elsewhere] Chronic Other screening for suspected conditions (not mental disorders or infectious disease) (1 source) Encounter for screening for other disorder; Translations: [Screening for genitourinary condition] Onset: 12-22-2024 Episodic Other upper respiratory disease (1 source) Anterior epistaxis; Translations: [Epistaxis] 07-14-2023 Episodic Other upper respiratory infections (1 source) Acute upper respiratory infection; Translations: [Acute upper respiratory infection, unspecified] 03-27-2023 Episodic Residual codes; unclassified (1 source) Difficulty sleeping ; Translations: [Sleep disorder, unspecified] 01-31-2023 Episodic Residual codes; unclassified (1 source) Other specified health status; Translations: [CABG (coronary artery bypass graft) planned] Onset: 02-24-2025 Episodic Screening and history of mental health and substance abuse codes (3 sources) Patient encounter status; Translations: [Encounter for screening for depression] 01-24-2024 Episodic Syncope (1 source) Syncope; Translations: [Syncope and collapse] 11-05-2019 Episodic Thyroid disorders (20 sources) Hypothyroidism; Translations: [Hypothyroidism, unspecified] Onset: 08-22-2004 03-15-2014 Chronic Past or Other Problems Problem Classification Problem Date Documented Date Episodic/Chronic Diverticulosis and diverticulitis (16 sources) Diverticulosis of colon; Translations: [Diverticulosis of large intestine without perforation or abscess without bleeding] Onset: 05-10-2005 Resolved: 02-01-2017 02-01-2017 Chronic Other and unspecified benign neoplasm (20 sources) History of polyp of colon; Translations: [Personal history of colonic polyps] Onset: 05-10-2005 03-10-2012 Episodic Other connective tissue disease (20 sources) Triggering of digit; Translations: [Trigger finger, unspecified finger] Onset: 03-11-2009 03-13-2010 Episodic Other connective tissue disease (20 sources) Contracture of palmar fascia; Translations: [Palmar fascial fibromatosis [Dupuytren]] Onset: 01-15-2012 01-15-2012 Episodic Residual codes; unclassified (20 sources) Family history of malignant neoplasm of gastrointestinal tract; Translations: [Family history of malignant neoplasm of digestive organs] Onset: 05-10-2005 03-13-2010 Episodic Results Test Name Value Interpretation Reference Range Facility ARTERIAL BLOOD GASESon 03-03 Base deficit (BldA) [Moles/Vol] -1 mmol/L Normal -2-0 [facility] Comment on above: Order Comment: Sharon shaw Type: BLOOD SPECIMEN Ordering Facility: [facility] Address: [address] [place] [address] Performed By: #### 3 016-3, 31249-1, HSTNT, 33725-7, 75740-2, 21790-7 #### [facility] CLIA [id number] [address] [place] [address] [place] Body temperature 98.78 [degF] Normal [facility] Comment on above: Order Comment: Sharon shaw Type: BLOOD SPECIMEN Ordering Facility: [facility] Address: [address] [place] [address] Performed By: #### 3 016-3, 38724-1, HSTNT, 54025-4, 84665-8, 14465-7 #### [facility] CLIA [id number] [address] Calcium.ionized (BldV) [Mass/Vol] 1.22 mmol/L Normal 1.08-1.30 [facility] Comment on above: Order Comment: Speci men Type: BLOOD SPECIMEN Ordering Facility: [facility] Address: [address] [place] [address] Performed By: #### 3 016-3, 67483-4, HSTNT, 79221-7, 32901-0, 92115-4 #### [facility] CLIA [id number] [address] Calcium.ionized adjusted to pH 7.4 (BldA) [Moles/Vol] 1.21 mmol/L Normal 1.08-1.30 [facility] Comment on above: Order Comment: Speci men Type: BLOOD SPECIMEN Ordering Facility: [facility] Address: [address] [place] [address] Performed By: #### 3 016-3, 82974-3, HSTNT, 10625-2, 68399-9, 59013-8 #### [facility] CLIA [id number] [address] OF [facility] Carboxyhemoglobin (BldA) [Mass fraction] 1.1 % Normal 0.0-2.0 [facility] Comment on above: Order Comment: Speci men Type: BLOOD SPECIMEN Ordering Facility: [facility] Address: [address] [place] [address] Result Comment: Carb oxyhemoglobin Reference Range for Smokers: 2.0-8.0% Performed By: #### 3 016-3, 38253-1, HSTNT, 94878-2, 20091-3, 97827-7 #### [facility] CLIA [id number] [address] [place] Chloride [Moles/Vol] 100 mmol/L Normal 97-105 [facility] Comment on above: Order Comment: Speci men Type: BLOOD SPECIMEN Ordering Facility: [facility] Address: [address] [place] [address] Performed By: #### 3 016-3, 50785-5, HSTNT, 37602-6, 75942-9, 56938-5 #### [facility] CLIA [id number] [address] OF [facility] CO2 (Bld) [Partial pressure] 40 mm Hg Normal 36-46 [facility] Comment on above: Order Comment: Speci men Type: BLOOD SPECIMEN Ordering Facility: [facility] Address: [address] [place] [address] Performed By: #### 3 016-3, 20048-9, HSTNT, 08742-5, 29623-0, 51158-0 #### [facility] CLIA [id number] [address] CO2 adjusted to patient's actual temperature (Bld) [Partial pressure] 40 mmHg Normal 36-46 [facility] Comment on above: Order Comment: Speci men Type: BLOOD SPECIMEN Ordering Facility: [facility] Address: [address] [place] [address] Performed By: #### 3 016-3, 04188-8, HSTNT, 97448-3, 31684-5, 07715-3 #### [facility] CLIA [id number] [address] [place] Glucose [Mass/Vol] 91 mg/dL Normal 60-105 [facility] Comment on above: Order Comment: Speci men Type: BLOOD SPECIMEN Ordering Facility: [facility] Address: [address] [place] [address] Performed By: #### 3 016-3, 90134-9, HSTNT, 88954-6, 90596-4, 21496-9 #### [facility] CLIA [id number] [address] [place] HCO3 (Bld) [Moles/Vol] 24 mmol/L Normal 22-26 [facility] Comment on above: Order Comment: Speci men Type: BLOOD SPECIMEN Ordering Facility: [facility] Address: [address] [place] [address] Performed By: #### 3 016-3, 49177-6, HSTNT, 89728-1, 31725-5, 39500-6 #### [facility] CLIA [id number] [address] [place] Hematocrit (Bld) [Volume fraction] 35.0 % Low 39.0-51.0 [facility] Comment on above: Order Comment: Speci men Type: BLOOD SPECIMEN Ordering Facility: [facility] Address: [address] [place] [address] Performed By: #### 3 016-3, 90077-7, HSTNT, 13693-5, 54918-8, 57542-4 #### [facility] CLIA [id number] [address] [place] [address] [place] Hemoglobin (Bld) [Mass/Vol] 11.3 g/dL Low 13.0-17.0 [facility] Comment on above: Order Comment: Speci men Type: BLOOD SPECIMEN Ordering Facility: [facility] Address: [address] [place] [address] Performed By: #### 3 016-3, 20112-3, HSTNT, 03559-9, 95339-4, 10986-7 #### [facility] CLIA [id number] [address] [place] [address] [place] Lactate [Moles/Vol] 0.6 mmol/L Normal 0.5-2.2 [facility] Comment on above: Order Comment: Speci men Type: BLOOD SPECIMEN Ordering Facility: [facility] Address: [address] [place] [address] Performed By: #### 3 016-3, 00925-7, HSTNT, 87855-0, 65367-6, 06930-7 #### [facility] CLIA [id number] [address] [place] LITERS 3 Liters/min Normal [facility] Comment on above: Order Comment: Speci men Type: BLOOD SPECIMEN Ordering Facility: [facility] Address: [address] [place] [address] Performed By: #### 3 016-3, 96442-7, HSTNT, 94895-6, 24951-4, 72360-0 #### [facility] CLIA [id number] [address] [place] Methemoglobin (Bld) [Mass fraction] 1.0 % Normal 0.0-1.5 [facility] Comment on above: Order Comment: Speci men Type: BLOOD SPECIMEN Ordering Facility: [facility] Address: [address] [place] [address] Performed By: #### 3 016-3, 11207-4, HSTNT, 50694-0, 98177-2, 66612-6 #### [facility] CLIA [id number] [address] [place] O2 THERAPY NC = Nasal Cannula Normal [facility] Comment on above: Order Comment: Speci men Type: BLOOD SPECIMEN Ordering Facility: [facility] Address: [address] [place] [address] Performed By: #### 3 016-3, 05311-8, HSTNT, 33723-2, 11770-0, 09789-7 #### [facility] CLIA [id number] [address] [place] Oxygen (Bld) [Partial pressure] 86 mm Hg Normal 85-95 [facility] Comment on above: Order Comment: Speci men Type: BLOOD SPECIMEN Ordering Facility: [facility] Address: [address] [place] [address] Performed By: #### 3 016-3, 06406-6, HSTNT, 67755-8, 90691-0, 72413-1 #### [facility] CLIA [id number] [address] OF [place] Oxygen adjusted to patient's actual temperature (Bld) [Partial pressure] 87 mmHg Normal 85-95 [facility] Comment on above: Order Comment: Speci men Type: BLOOD SPECIMEN Ordering Facility: [facility] Address: [address] [place] [address] Performed By: #### 3 016-3, 39334-7, HSTNT, 78158-6, 59404-1, 26759-7 #### [facility] CLIA [id number] [address] STATES OF [facility] Oxyhemoglobin (BldA) [Mass fraction] 95 % Normal 95-98 [facility] Comment on above: Order Comment: Speci men Type: BLOOD SPECIMEN Ordering Facility: [facility] Address: [address] [place] [address] Performed By: #### 3 016-3, 47005-6, HSTNT, 16314-8, 09328-0, 13102-9 #### [facility] CLIA [id number] [address] STATES OF [facility] pH (Bld) 7.40 [pH] Normal 7.35-7.45 [facility] Comment on above: Order Comment: Speci men Type: BLOOD SPECIMEN Ordering Facility: [facility] Address: [address] [place] [address] Performed By: #### 3 016-3, 37357-8, HSTNT, 19295-8, 50293-7, 02607-0 #### [facility] CLIA [id number] [address] STATES OF [facility] pH adjusted to patient's actual temperature (Bld) 7.40 Normal 7.35-7.45 [facility] Comment on above: Order Comment: Speci men Type: BLOOD SPECIMEN Ordering Facility: [facility] Address: [address] [place] [address] Performed By: #### 3 016-3, 28626-9, HSTNT, 41628-8, 34912-6, 17878-6 #### [facility] CLIA [id number] [address] [place] [address] [place] Potassium [Moles/Vol] 3.9 mmol/L Normal 3.5-5.0 [facility] Comment on above: Order Comment: Speci men Type: BLOOD SPECIMEN Ordering Facility: [facility] Address: [address] [place] [address] Performed By: #### 3 016-3, 25696-6, HSTNT, 59298-9, 50146-3, 28891-9 #### [facility] CLIA [id number] [address] [place] [address] [place] Sodium [Moles/Vol] 130 mmol/L Low 136-144 [facility] Comment on above: Order Comment: Speci men Type: BLOOD SPECIMEN Ordering Facility: [facility] Address: [address] [place] [address] Performed By: #### 3 016-3, 65903-5, HSTNT, 51298-1, 84740-8, 75502-4 #### [facility] CLIA [id number] [address] [place] [address] [place] Basic metabolic 2000 panelon 03-03-2025 Anion gap [Moles/Vol] 9 mmol/L Normal 8-15 [facility] Comment on above: Order Comment: Speci men Type: BLOOD SPECIMEN Ordering Facility: [facility] Address: [address] [place] [address] Performed By: #### 3 016-3, 54700-7, HSTNT, 02404-8, 63294-9, 33755-2 #### [facility] CLIA [id number] [address] [place] [address] [place] Calcium [Mass/Vol] 8.4 mg/dL Low 8.5-10.2 [facility] Comment on above: Order Comment: Speci men Type: BLOOD SPECIMEN Ordering Facility: [facility] Address: [address] [place] [address] Performed By: #### 3 016-3, 20980-0, HSTNT, 02330-7, 46886-4, 00053-7 #### [facility] CLIA [id number] 1 [place] [address] [place] Chloride [Moles/Vol] 101 mmol/L Normal 98-107 [facility] Comment on above: Order Comment: Speci men Type: BLOOD SPECIMEN Ordering Facility: [facility] Address: [address] [place] [address] Performed By: #### 3 016-3, 18143-4, HSTNT, 99840-9, 45190-8, 77574-4 #### [facility] CLIA [id number] 1 [place] [address] [place] CO2 [Moles/Vol] 23 mmol/L Normal 22-30 [facility] Comment on above: Order Comment: Speci men Type: BLOOD SPECIMEN Ordering Facility: [facility] Address: [address] [place] [address] Performed By: #### 3 016-3, 03608-1, HSTNT, 40066-3, 93425-1, 03438-0 #### [facility] CLIA [id number] 1 [place] [address] [place] Creatinine [Mass/Vol] 0.85 mg/dL Normal 0.73-1.22 [facility] Comment on above: Order Comment: Speci men Type: BLOOD SPECIMEN Ordering Facility: [facility] Address: [address] [place] [address] Performed By: #### 3 016-3, 54076-0, HSTNT, 48989-5, 04652-3, 28685-0 #### [facility] CLIA [id number] 1 [place] [address] [place] eGFRcr SerPlBld CKD-EPI 2020 85 mL/min/1.73m??? Normal >=60 [facility] Comment on above: Order Comment: Speci men Type: BLOOD SPECIMEN Ordering Facility: [facility] Address: [address] [place] [address] Result Comment: Monie mated Glomerular Filtration Rate (eGFR) is calculated using the 2020 CKD-EPI creatinine equation. This equation utilizes serum creatinine, sex, and age as parameters. The creatinine assay has traceable calibration to isotope dilution-mass spectrometry. Refer to KDIGO guidelines for clinical interpretation. In patients with unstable renal function, e.g. those with acute kidney injury, the eGFR may not accurately reflect actual GFR. Performed By: #### 3 016-3, 08917-1, HSTNT, 11948-1, 15714-1, 78108-3 #### [facility] CLIA [id number] 1 [place] [address] [place] Glucose [Mass/Vol] 93 mg/dL Normal 74-99 [facility] Comment on above: Order Comment: Sharon shaw Type: BLOOD SPECIMEN Ordering Facility: [facility] Address: [address] [place] [address] Result Comment: The [place] Diabetes Association (ADA) provides guidance for cutoff values for fasting glucose and random glucose. The ADA defines fasting as no caloric intake for at least 8 hours. Fasting plasma glucose results between 100 to 125 mg/dL indicate increased risk for diabetes (prediabetes). Fasting plasma glucose results greater than or equal to 126 mg/dL meet the criteria for diagnosis of diabetes. In the absence of unequivocal hyperglycemia, results should be confirmed by repeat testing. In a patient with classic symptoms of hyperglycemia or hyperglycemic crisis, random plasma glucose results greater than or equal to 200 mg/dL meet the criteria for diagnosis of diabetes. Reference: Standards of Medical Care in Diabetes 2016, [place] [employer] Association. Diabetes Care. 2016.39(Suppl 1). Performed By: #### 3 016-3, 70365-6, HSTNT, 11586-5, 85216-1, 83303-5 #### [facility] CLIA [id number] 1 [place] [address] [place] Potassium [Moles/Vol] 4.1 mmol/L Normal 3.7-5.1 [facility] Comment on above: Order Comment: Sharon shaw Type: BLOOD SPECIMEN Ordering Facility: [facility] Address: [address] [place] [address] Performed By: #### 3 016-3, 46232-4, HSTNT, 76811-0, 09301-2, 43264-5 #### [facility] CLIA [id number] [address] [place] Sodium [Moles/Vol] 133 mmol/L Low 136-144 [facility] Comment on above: Order Comment: Speci men Type: BLOOD SPECIMEN Ordering Facility: [facility] Address: [address] [place] [address] Performed By: #### 3 016-3, 32576-8, HSTNT, 89866-6, 15535-8, 98359-7 #### [facility] CLIA [id number] 1 [place] [address] [place] Urea nitrogen [Mass/Vol] 11 mg/dL Normal 9-24 [facility] Comment on above: Order Comment: Speci men Type: BLOOD SPECIMEN Ordering Facility: [facility] Address: [address] [place] [address] Performed By: #### 3 016-3, 10161-0, HSTNT, 31304-9, 38831-9, 73907-9 #### [facility] CLIA [id number] 1 [place] [address] [place] CBC panel Auto (Bld)on 03-03 Erythrocyte distribution width (RBC) [Ratio] 12.4 % Normal 11.5-15.0 [facility] Comment on above: Order Comment: Speci men Type: BLOOD SPECIMEN Ordering Facility: [facility] Address: [address] [place] [address] Performed By: #### 3 016-3, 13049-0, HSTNT, 98194-3, 59580-9, 48185-9 #### [facility] CLIA [id number] [address] [place] Hematocrit (Bld) [Volume fraction] 31.6 % Low 39.0-51.0 [facility] Comment on above: Order Comment: Speci men Type: BLOOD SPECIMEN Ordering Facility: [facility] Address: [address] [place] [address] Performed By: #### 3 016-3, 46463-2, HSTNT, 10509-0, 82933-6, 87119-4 #### [facility] CLIA [id number] [address] STATES OF [facility] Hemoglobin (Bld) [Mass/Vol] 10.9 g/dL Low 13.0-17.0 [facility] Comment on above: Order Comment: Speci men Type: BLOOD SPECIMEN Ordering Facility: [facility] Address: [address] [place] [address] Performed By: #### 3 016-3, 46969-2, HSTNT, 77587-3, 39548-8, 18320-2 #### [facility] CLIA [id number] [address] MCH (RBC) [Entitic mass] 31.5 pg Normal 26.0-34.0 [facility] Comment on above: Order Comment: Speci men Type: BLOOD SPECIMEN Ordering Facility: [facility] Address: [address] [place] [address] Performed By: #### 3 016-3, 79262-3, HSTNT, 20726-3, 21362-0, 37620-6 #### [facility] CLIA [id number] [address] STATES OF [facility] MCHC (RBC) [Mass/Vol] 34.5 g/dL Normal 30.5-36.0 [facility] Comment on above: Order Comment: Speci men Type: BLOOD SPECIMEN Ordering Facility: [facility] Address: [address] [place] [address] Performed By: #### 3 016-3, 67009-8, HSTNT, 76813-1, 17301-5, 13747-0 #### [facility] CLIA [id number] [address] OF [facility] MCV (RBC) [Entitic vol] 91.3 fL Normal 80.0-100.0 [facility] Comment on above: Order Comment: Speci men Type: BLOOD SPECIMEN Ordering Facility: [facility] Address: [address] [place] [address] Performed By: #### 3 016-3, 18784-1, HSTNT, 06756-4, 85995-7, 25595-6 #### [facility] CLIA [id number] [address] [place] Nucleated RBC (Bld) [#/Vol] 10*3/uL Normal <0.01 [facility] Comment on above: Order Comment: Speci men Type: BLOOD SPECIMEN Ordering Facility: [facility] Address: [address] [place] [address] Performed By: #### 3 016-3, 69542-1, HSTNT, 04505-8, 06758-4, 17567-9 #### [facility] CLIA [id number] [address] [place] Platelet mean volume (Bld) [Entitic vol] 10.3 fL Normal 9.0-12.7 [facility] Comment on above: Order Comment: Speci men Type: BLOOD SPECIMEN Ordering Facility: [facility] Address: [address] [place] [address] Performed By: #### 3 016-3, 06140-0, HSTNT, 32489-3, 15219-8, 38716-0 #### [facility] CLIA [id number] [address] [place] Platelets (Bld) [#/Vol] 148 10*3/uL Low 150-400 [facility] Comment on above: Order Comment: Speci men Type: BLOOD SPECIMEN Ordering Facility: [facility] Address: [address] [place] [address] Performed By: #### 3 016-3, 29988-3, HSTNT, 81042-1, 85720-6, 63142-4 #### [facility] CLIA [id number] [address] [place] RBC (Bld) [#/Vol] 3.46 10*6/uL Low 4.20-6.00 [facility] Comment on above: Order Comment: Speci men Type: BLOOD SPECIMEN Ordering Facility: [facility] Address: [address] [place] [address] Performed By: #### 3 016-3, 90280-7, HSTNT, 43032-3, 32450-8, 23896-2 #### [facility] CLIA [id number] 1 [place] [address] [place] WBC (Bld) [#/Vol] 13.46 10*3/uL High 3.70-11.00 [facility] Comment on above: Order Comment: Speci men Type: BLOOD SPECIMEN Ordering Facility: [facility] Address: [address] [place] [address] Performed By: #### 3 016-3, 30162-2, HSTNT, 26191-3, 13901-6, 30446-0 #### [facility] CLIA [id number] [address] STATES OF [facility] ECG COMPLETEon 03-03-2025 ECG COMPLETE Ventricular Rate : 6 9 BPM Atrial Rate : 69 BPM P-R Interval : 160 ms QRS Duration : 88 ms Q-T Interval : 424 ms QTC Calculation(Bazett) : 454 ms Calculated P Condon : 55 degrees Calculated R Condon : 4 degrees Calculated T Condon : -10 degrees NORMAL SINUS RHYTHM WITH SINUS ARRHYTHMIA NONSPECIFIC T WAVE ABNORMALITY ABNORMAL ECG WHEN COMPARED WITH ECG OF 02-Mar-2025 14:10, SINUS RHYTHM HAS REPLACED ATRIAL FIBRILLATION NON-SPECIFIC CHANGE IN ST SEGMENT IN ANTERIOR LEADS NONSPECIFIC T WAVE ABNORMALITY NOW EVIDENT IN INFERIOR LEADS QT HAS SHORTENED Confirmed by MD HOPPER VINAY ([id number]) on 03/03/2025 12:33:00 PM NAME : ELSA PALACIO PID : [id number] : 1940 Gender : Male Race : ORD : [id number] Procedure Date : Mar 03 2025 04:23:56 Edit Date : Mar 03 2025 12:33:01 Diagnosis: NORMAL SINUS RHYTHM WITH SINUS ARRHYTHMIA NONSPECIFIC T WAVE ABNORMALITY ABNORMAL ECG WHEN COMPARED WITH ECG OF 02-Mar-2025 14:10, SINUS RHYTHM HAS REPLACED ATRIAL FIBRILLATION NON-SPECIFIC CHANGE IN ST SEGMENT IN ANTERIOR LEADS NONSPECIFIC T WAVE ABNORMALITY NOW EVIDENT IN INFERIOR LEADS QT HAS SHORTENED Confirmed by MD HOPPER VINAY ([id number]) on 03/03/2025 12:33:00 PM Test Reason : Post-OP Location : [address] : [place] [address] Overread By : MD HOPPER VINAY Edited By : MD HOPPER VINAY Referred By : SHAWN CHAU Acquired by : ALLISON LORD [facility] Magnesium SerPl-mCncon 03-03 Magnesium [Mass/Vol] 1.7 mg/dL Normal 1.7-2.3 [facility] Comment on above: Order Comment: Speci men Type: BLOOD SPECIMEN Ordering Facility: [facility] Address: [facility] [place] [address] Performed By: #### 3 016-3, 25814-9, HSTNT, 65500-1, 85494-9, 66479-8 #### [facility] CLIA [id number] [address] THERAPY NTon 03-03-2025 THERAPY NT HNO ID: [id number] Author: OSCAR BHAKTA, PT Service: Physical Therapy Author Type: Physical Therapist Type: Therapy (PT/OT/Speech/Resp) Filed: 03/03/2025 14:34 Note Text: Physical Therapy Evaluation Summary SERVICE DATE: 03/03/2025 SERVICE TIME: 1014 to 1037 ROOM: [place] [address] PT 6 Clicks Score: 18 DISCHARGE RECOMMENDATIONS Home Recommended Discharge Disposition Comments: Pt did well ambulating for first time after CABG Anticipated Discharge Needs: Physical Assist at Home Physical Assist at Home for: Ambulation, Cleaning, Transfers, Laundry, Meals, Stairs, Shopping, Transportation Recommended Discharge Equipment: Wheeled Walker ASSESSMENT Pt motivated and wanting to go for a walk. Pt currently on track to return to baseline function at this time. Pt tolerated ambulation of 150' with 1 standing rest break--anticipate ok for home with family support PRECAUTIONS Fall Risk, Sternal, Lines/Tubes/Drains Pt aware and educated on sternal precautions CURRENT HOSPITAL COURSE Pt is a transfer from [facility]. Pt c/o chest pain while mowing the grass. Pt had CABG x4 performed on 03/02 Relevant Past Medical History: Primary HTN, Hypothyroidism HOME LIVING Patient Lives With: Spouse Assistance Available: Part-Time Entry To Home: Stairs Number Of Stairs Into Home: 1 Number Of Stairs To Bed/Bath: 0 Tub/Shower Type: Walk in shower Laundry: basement. 6 steps down to the basement PRIOR FUNCTIONAL LEVEL Within Functional Limits ambulated without AD and no DME; takes care of household tasks SUBJECTIVE Pt AANDO x4. Pt compliant with PT. Pt c/o 4-5 pain in chest THERAPY DIAGNOSIS Decreased activities of daily living (ADL), Muscle Weakness (generalized), General symptoms and signs-other TREATMENT INTERVENTIONS Evaluation; Therapeutic Activity (52951) $ Evaluation-Moderate (35935) Billed Units: 1 unit Therapeutic Activity (49722) Treatment Minutes: 8 $ Therapeutic Activity (79225) Billed Units: 1 unit Cues for safe mobility see grid below Pt ambulated 100ft x2 with contact guard assist x2 through halls of ICU. Pt has no signs or symptoms present at this time. Pt required one rest break at 100ft of ambulating with verbal cues to take a deep breath through the nose like your smelling the roses Provided pt and family members with education on sternal precautions, stating no bending down, lifting overhead or in front, no twisting, and no pushing through arms while trying to stand TRAINING AND EDUCATION PROVIDED Anatomy and Impact on Deficits; Assistive Device Use; Benefits of In-Hospital Mobility; Discharge Planning; Expected Functional Level; Falls Prevention; Home Set-up/Modifications; Patient Exercise/Therapy Program Support Needs; Precautions/Restricti ons; Pre-gait Activities; Role of Physical Therapy; Sitting Balance; Standing Balance THERAPEUTIC SKILLS USED Activity Dosing; Assessment of Tolerance Including Vitals Response to Activity; Cues for Sequencing/Proper Technique for Activity; Cuing Verbal; Facilitation of Joint Range of Motion; Management of Critical Lines, Tubes and/or Drains; Movement Facilitation; Physical Assist FUNCTIONAL STATUS Bed Mobility Transfers Sit To Stand: Minimal Assistance, Moderate Assistance, Additional Information Stand To Sit: Contact Guard Assistance, Additional Information Bed to Chair Gait Contact Guard Assistance, Additional Information Gait Device: (CVICU tri-pod walker) Gait Distance (feet): 150' Stairs Range of Motion: WFL Strength: Right LE Measurement, Left LE Measurement Right Hip Flexion Strength: 4/5 Right Hip Extension Strength: N/T Right Knee Flexion Strength: 4/5 Right Knee Extension Strength: 4/5 Right Ankle Dorsiflexion Strength: 4/5 Left Hip Flexion Strength: N/T due to graft site Left Hip Extension Strength: N/T Left Knee Flexion Strength: N/T due to graft site Left Knee Extension Strength: N/T due to graft site Left Ankle Dorsiflexion Strength: N/T due to graft site GOALS Able to Perform HEP with: Independent Transfer Supine to/from Sit with: Independent Transfer Sit to/from Stand with: Independent Ambulate with: Independent Distance: 150ft x2 Device: Wheeled Walker Ambulate Up and Down Steps with: Stand By Assistance Number of Steps: 4 Device: Rail Rehab Potential: Good ACUTE CARE TREATMENT PLAN PT Frequency: 4 Times Per Week (1-4 x week) Treatment Interventions: Education, Self Care / Home Management, Strengthening, Functional Mobility Training, Balance Training, Pain Management Plan for Next Visit: Fall Prevention, Gait Training, Pre-gait Activities, Sit to Stand Transfers, Sitting Balance, Standing Balance SIGNATURE: AAKASH Garcia PATIENT NAME: Elsa Palacio DATE: March 03, 2025 TIME: 11:04 AM Supervising therapist was present and guided the care of the patient for the entire session on this date. A (more content not included)... Normal [facility] XR CHEST 1V FRONTALon 2024 XR CHEST 1V FRONTAL * * *Final Report* * * DATE OF EXAM: Mar 03 2025 4:25AM AKX [id number] - XR CHEST 1V FRONTAL / PROCEDURE REASON: Post-operative/post-p rocedure assessment * * * * Physician Interpretation * * * * EXAMINATION: CHEST RADIOGRAPH (SINGLE VIEW AP OR PA) CLINICAL HISTORY: Post-operative/post-p rocedure assessment MQ: XC1_5 Comparison: 03/02/2025 at 1436 RESULT: Lines, tubes, and devices: Endotracheal tube and enteric tube have been removed. Right internal jugular central line with tip in the mid to distal superior vena cava. Left-sided chest tube paralleling left hemidiaphragm. Intact median sternotomy wires and sternal plate. Overlying child monitor leads. Lungs and pleura: No pneumothorax. Diminished aeration remains at both lung bases due to postoperative atelectasis and probable pleural effusion. Cardiomediastinal silhouette: Stable. Other: No significant additional findings. IMPRESSION: Status post extubation. Fire Extinguisher Tester: GAEL Transcribe Date/Time: Mar 03 2025 6:40A Dictated by : NEIL CARTER MD This examination was interpreted and the report reviewed and electronically signed by: NEIL CARTER MD on Mar 03 2025 6:41AM EST [id number] N [facility] ANES POSTPROC EVALon 025 ANES POSTPROC EVAL HNO ID: [id number] Author: MOLINA PALOMO MD Service: Anesthesiology Author Type: Physician Type: Anesthesia Postprocedure Evaluation Filed: 03/02/2025 17:14 Note Text: POST ANESTHESIA EVALUATION NOTE : 1940 Procedure Summary Date: 03/02/25 Room / Location: [place] OR / [place] OR Anesthesia Start: 706 Anesthesia Stop: 1412 Procedure: BYPASS GRAFT ARTERY CORONARY ON-PUMP THREE CORONARY VENOUS GRAFTS, MALAGON TO LAD, SVG TO OM RCA, SVG TO DIAG (Chest) Diagnosis: NSTEMI (non-ST elevated myocardial infarction) (HCC) (NSTEMI (non-ST elevated myocardial infarction) (HCC) [I21.4]) Surgeons: John Sagastume MD Responsible Provider: Molina Palomo MD Anesthesia Type: general ASA Status: 4 Anesthesia Type: general Airway Type: ETT Last Vitals Vitals Value Taken Time Arterial BP 1 154/78 03/02/25 17:13 Temp 36.3 ?C (97.34 ?F) 03/02/25 17:13 Pulse 69 03/02/25 17:13 Resp 10 03/02/25 17:13 SpO2 98 % 03/02/25 17:13 Vitals shown include unfiled device data. Post Anesthesia Patient Status Patient Evaluation: ICU. PACU/ICU Patient Condition: stable. Anticipated Disposition: ICU planned admission. Neurological Status: sedated. Pulmonary Status: on mechanical ventilation (invasive ventilation) Airway Control: intubated on mechanical ventilation. Cardiovascular Status: stable. Pain Management: clinically adequate Postoperative Hydration: acceptable. Intraoperative Events: no significant anesthesia events Post Operative Nausea/Vomiting Status: no significant post operative nausea or vomiting Recommendation: further care per PACU/ICU/floor team. Anesthesia Observations No Documentation SIGNATURE: Molina Palomo MD PATIENT NAME: Elsa Palacio DATE: March 02, 2025 TIME: 5:13 PM CSN: [id number] [facility] ANES PRE-OPon 03-02-2025 ANES PRE-OP HNO ID: [id number] Author: BROOKS MONTEJO MD Service: Anesthesiology Author Type: Physician Type: Anesthesia Preprocedure Evaluation Filed: 03/02/2025 07:01 Note Text: ANESTHESIOLOGY DAY OF SURGERY NOTE : 1940 Procedure Information Date/Time: 03/02/25714 Procedure: BYPASS GRAFT ARTERY CORONARY ON-PUMP THREE CORONARY VENOUS GRAFTS (Chest) Location: [place] [address] [place] [address] OR Surgeons: John Sagastume MD Estimated body mass index is 23.66 kg/m? as calculated from the following: Height as of this encounter: 177.8 cm (5' 10). Weight as of this encounter: 74.8 kg (164 lb 14.5 oz). Most recent hematocrit and potassium results: Hematocrit 43.4 03/02/2025 Potassium 4.2 03/01/2025 Relevant Problems CARDIO (+) CAD, multiple vessel (+) Ectopic atrial rhythm (+) HTN (hypertension) (+) NSTEMI (non-ST elevated myocardial infarction) (HCC) (+) Second degree atrioventricular block, Mobitz type I (+) Variants of migraine, not elsewhere classified, with intractable migraine, so stated, without mention of status migrainosus ENDO (+) Hypothyroidism NEURO-PSYCH (+) Cluster headache (+) Episodic cluster headache, not intractable (+) Variants of migraine, not elsewhere classified, with intractable migraine, so stated, without mention of status migrainosus I - PHYSICAL EVALUATION AIRWAY Patient intubated: No. Tracheostomy tube not present Mallampati: III. TM distance: >3 FB. Neck ROM: full ROM without neurological symptoms. Mouth openin FB. Short neck: no. Thick neck: no DENTAL Dental findings: chipped and missing tooth/teeth. Additional exam findings: no II - ANESTHESIA PLAN ASA Score: 4 Anesthetic Plan: general Airway type: ETT NPO Status: adequate Monitoring Plan Monitoring plan: standard ASA and invasive hemodynamic monitoring. Monitoring method: arterial Line, CVL and CAN CAN details: patient denies history of stricture or varices Post Procedure Analgesic Plan Postoperative analgesic plan: go to ICU and per surgical service. Informed Consent Anesthetic risks, benefits, alternatives, personnel and consent discussed: yes. Patient / Responsible Libertarian agrees to proceed: yes Patient / Surrogate agrees to blood products: Yes Significant changes in the patient condition since the History and Physical, not otherwise documented in primary service progress note: no. Vitals Value Taken Time BP 159/81 03/02/25 06:42 Pulse 49 03/02/25 06:42 Resp 17 03/02/25 06:42 Temp 35.9 ?C (96.6 ?F) 03/02/25 06:42 SpO2 97 % 03/02/25 06:42 Facility-Administered Medications as of 03/02/2025 Medication Dose Route Frequency [Transfer Hold] nitroglycerin sublingual 0.4 mg tab(s) (NITROQUICK) 0.4 mg SUBLINGUAL PRN [COMPLETED] acetaminophen 1,000 mg tab(s) (TYLENOL) 1,000 mg ORAL ONCE [COMPLETED] aspirin 81 mg chewable tab(s) 81 mg ORAL ONCE [COMPLETED] metoprolol tartrate (short acting) 12.5 mg tab(s) (LOPRESSOR) 12.5 mg ORAL ONCE [Transfer Hold] heparin nomogram - NURSING INSTRUCTIONS OTHER ONCE [Transfer Hold] polyethylene glycol 3350 17 g packet 17 g ORAL DAILY PRN [] metoprolol tartrate (short acting) 25 mg tab(s) (LOPRESSOR) 25 mg ORAL q 12 H [Transfer Hold] Chlorhexidine Gluconate 0.12 % 15 mL (PERIDEX) 15 mL ORAL q 6 H [] heparin iv infusion 25,000 units in NaCl 0.45% 250 mL LOW DOSE/ACS NOMOGRAM 0-3,000 Units/hr INTRAVENOUS CONTINUOUS And [Transfer Hold] heparin RATE CHANGE bolus 1,000-4,000 Units for subtherapeutic PTTAC results 1,000-4,000 Units INTRAVENOUS PRN [] heparin nomogram - NO INITIAL BOLUS OTHER ONCE (heparin bolus) [Transfer Hold] finasteride 5 mg tab(s) (PROSCAR) 5 mg ORAL DAILY [Transfer Hold] levothyroxine 100 mcg tab(s) (SYNTHROID) 100 mcg ORAL DAILY [Transfer Hold] tamsulosin 0.8 mg cap(s) (FLOMAX) 0.8 mg ORAL DAILY [Transfer Hold] melatonin 6 mg tab(s) 6 mg ORAL AT BEDTIME [Transfer Hold] NaCl 0.9% iv flush bag 20 mL INTRAVENOUS PRN [Transfer Hold] ondansetron 4 mg tab(s) (ZOFRAN) 4 mg ORAL q 6 H PRN Or [Transfer Hold] ondansetron (PF) 4 mg injection (ZOFRAN) 4 mg INTRAVENOUS q 6 H PRN [Transfer Hold] acetaminophen 1,000 mg tab(s) (TYLENOL) 1,000 mg ORAL q 6 H PRN [Transfer Hold] melatonin 1 mg tab(s) 1 mg ORAL DAILY PRN [Transfer Hold] atorvastatin 40 mg tab(s) (LIPITOR) 40 mg ORAL AT BEDTIME [Transfer Hold] therapeutic multivitamin-minerals tablet (THERA-M PLUS) 1 tablet ORAL DAILY [COMPLETED] aspirin 81 mg chewable tab(s) 81 mg ORAL DAILY [] sodium chloride 0.9 % (flush) 2-10 mL (BD POSIFLUSH) 2-10 mL INTRAVENOUS DIRECTED PRN And [] perflutren lipid microspheres 1.1 mg/mL 1.3 mL injection (DEFINITY) 1.3 mL INTRAVENOUS DIRECTED PRN [COMPLETED] mupirocin 2 % 0.5 g nasal ointment (BACTROBAN) 0.5 g NASAL BID Outpatient Medications as of 03/02/2025 Medication Sig verapamil SR (CALAN SR) 120 mg CR tablet Take 1 tablet by mouth once daily. levothyroxine (more content not included)... Normal [facility] ARTERIAL BLOOD GASESon 03-02 Base deficit (BldA) [Moles/Vol] -1 mmol/L Normal -2-0 [facility] Comment on above: Order Comment: Speci men Type: BLOOD SPECIMEN Ordering Facility: [facility] Address: [address] [place] [address] Performed By: #### 3 016-3, 79336-4, HSTNT, 39435-9, 83450-8, 06674-0 #### [facility] CLIA [id number] 1 [place] [address] [place] Body temperature 98.78 [degF] Normal [facility] Comment on above: Order Comment: Speci men Type: BLOOD SPECIMEN Ordering Facility: [facility] Address: [address] [place] [address] Performed By: #### 3 016-3, 28146-4, HSTNT, 81085-7, 46463-4, 79367-6 #### [facility] CLIA [id number] [address] Calcium.ionized (BldV) [Mass/Vol] 1.23 mmol/L Normal 1.08-1.30 [facility] Comment on above: Order Comment: Speci men Type: BLOOD SPECIMEN Ordering Facility: [facility] Address: [address] [place] [address] Performed By: #### 3 016-3, 00251-3, HSTNT, 39029-2, 50406-5, 61992-7 #### [facility] CLIA [id number] [address] Calcium.ionized adjusted to pH 7.4 (BldA) [Moles/Vol] 1.21 mmol/L Normal 1.08-1.30 [facility] Comment on above: Order Comment: Speci men Type: BLOOD SPECIMEN Ordering Facility: [facility] Address: [address] [place] [address] Performed By: #### 3 016-3, 04874-5, HSTNT, 39325-6, 37220-0, 04047-3 #### [facility] CLIA [id number] [address] Carboxyhemoglobin (BldA) [Mass fraction] 1.1 % Normal 0.0-2.0 [facility] Comment on above: Order Comment: Speci men Type: BLOOD SPECIMEN Ordering Facility: [facility] Address: [address] [place] [address] Result Comment: Carb oxyhemoglobin Reference Range for Smokers: 2.0-8.0% Performed By: #### 3 016-3, 83973-0, HSTNT, 41346-6, 12575-5, 65145-9 #### [facility] CLIA [id number] [address] [place] Chloride [Moles/Vol] 102 mmol/L Normal 97-105 [facility] Comment on above: Order Comment: Speci men Type: BLOOD SPECIMEN Ordering Facility: [facility] Address: [address] [place] [address] Performed By: #### 3 016-3, 60091-3, HSTNT, 81335-5, 20069-5, 18879-9 #### [facility] CLIA [id number] [address] [place] CO2 (Bld) [Partial pressure] 41 mm Hg Normal 36-46 [facility] Comment on above: Order Comment: Speci men Type: BLOOD SPECIMEN Ordering Facility: [facility] Address: [address] [place] [address] Performed By: #### 3 016-3, 90360-1, HSTNT, 75498-9, 73491-8, 07337-8 #### [facility] CLIA [id number] [address] [place] [facility] CO2 adjusted to patient's actual temperature (Bld) [Partial pressure] 41 mmHg Normal 36-46 [facility] Comment on above: Order Comment: Speci men Type: BLOOD SPECIMEN Ordering Facility: [facility] Address: [address] [place] [address] Performed By: #### 3 016-3, 73804-4, HSTNT, 22715-1, 77768-5, 71794-1 #### [facility] CLIA [id number] 1 [place] [address] [place] Glucose [Mass/Vol] 120 mg/dL High 60-105 [facility] Comment on above: Order Comment: Speci men Type: BLOOD SPECIMEN Ordering Facility: [facility] Address: [address] [place] [address] Performed By: #### 3 016-3, 37793-5, HSTNT, 33232-4, 73614-4, 77167-5 #### [facility] CLIA [id number] [address] [place] HCO3 (Bld) [Moles/Vol] 23 mmol/L Normal 22-26 [facility] Comment on above: Order Comment: Speci men Type: BLOOD SPECIMEN Ordering Facility: [facility] Address: [address] [place] [address] Performed By: #### 3 016-3, 50157-5, HSTNT, 08065-5, 88284-7, 76261-5 #### [facility] CLIA [id number] [address] [place] Hematocrit (Bld) [Volume fraction] 35.0 % Low 39.0-51.0 [facility] Comment on above: Order Comment: Speci men Type: BLOOD SPECIMEN Ordering Facility: [facility] Address: [address] [place] [address] Performed By: #### 3 016-3, 47528-0, HSTNT, 28527-7, 18767-4, 95513-3 #### [facility] CLIA [id number] [address] [place] [facility] Hemoglobin (Bld) [Mass/Vol] 11.3 g/dL Low 13.0-17.0 [facility] Comment on above: Order Comment: Speci men Type: BLOOD SPECIMEN Ordering Facility: [facility] Address: [address] [place] [address] Performed By: #### 3 016-3, 50666-4, HSTNT, 10371-5, 66655-9, 66307-6 #### [facility] CLIA [id number] [address] [place] Lactate [Moles/Vol] 0.6 mmol/L Normal 0.5-2.2 [facility] Comment on above: Order Comment: Speci men Type: BLOOD SPECIMEN Ordering Facility: [facility] Address: [address] [place] [address] Performed By: #### 3 016-3, 96681-6, HSTNT, 87075-9, 04698-2, 67323-4 #### [facility] CLIA [id number] [address] [place] LITERS 4 Liters/min Normal [facility] Comment on above: Order Comment: Speci men Type: BLOOD SPECIMEN Ordering Facility: [facility] Address: [address] [place] [address] Performed By: #### 3 016-3, 55238-9, HSTNT, 81991-6, 41320-9, 90159-8 #### [facility] CLIA [id number] [address] [place] Methemoglobin (Bld) [Mass fraction] 1.0 % Normal 0.0-1.5 [facility] Comment on above: Order Comment: Speci men Type: BLOOD SPECIMEN Ordering Facility: [facility] Address: [address] [place] [address] Performed By: #### 3 016-3, 74278-7, HSTNT, 42975-6, 18346-6, 01486-7 #### [facility] CLIA [id number] [address] O2 THERAPY [place] = Nasal Cannula Normal [facility] Comment on above: Order Comment: Speci men Type: BLOOD SPECIMEN Ordering Facility: [facility] Address: [address] [place] [address] Performed By: #### 3 016-3, 32894-8, HSTNT, 68044-5, 87985-7, 52247-0 #### [facility] CLIA [id number] [address] [place] Oxygen (Bld) [Partial pressure] 93 mm Hg Normal 85-95 [facility] Comment on above: Order Comment: Speci men Type: BLOOD SPECIMEN Ordering Facility: [facility] Address: [address] [place] [address] Performed By: #### 3 016-3, 36240-7, HSTNT, 33038-8, 09176-9, 15301-6 #### [facility] CLIA [id number] [address] [place] Oxygen adjusted to patient's actual temperature (Bld) [Partial pressure] 93 mmHg Normal 85-95 [facility] Comment on above: Order Comment: Speci men Type: BLOOD SPECIMEN Ordering Facility: [facility] Address: [address] [place] [address] Performed By: #### 3 016-3, 87048-4, HSTNT, 24123-4, 75436-0, 12857-4 #### [facility] CLIA [id number] 1 [place] [address] [place] Oxyhemoglobin (BldA) [Mass fraction] 95 % Normal 95-98 [facility] Comment on above: Order Comment: Speci men Type: BLOOD SPECIMEN Ordering Facility: [facility] Address: [address] [place] [address] Performed By: #### 3 016-3, 82333-5, HSTNT, 04244-0, 24777-1, 25122-7 #### [facility] CLIA [id number] [address] [place] [address] [place] pH (Bld) 7.38 [pH] Normal 7.35-7.45 [facility] Comment on above: Order Comment: Speci men Type: BLOOD SPECIMEN Ordering Facility: [facility] Address: [address] [place] [address] Performed By: #### 3 016-3, 59241-7, HSTNT, 38372-5, 57362-9, 28933-5 #### [facility] CLIA [id number] 1 [place] [address] [place] pH adjusted to patient's actual temperature (Bld) 7.38 Normal 7.35-7.45 [facility] Comment on above: Order Comment: Speci men Type: BLOOD SPECIMEN Ordering Facility: [facility] Address: [address] [place] [address] Performed By: #### 3 016-3, 97607-6, HSTNT, 68502-6, 39426-1, 02059-5 #### [facility] CLIA [id number] 1 [place] [address] [place] Potassium [Moles/Vol] 4.4 mmol/L Normal 3.5-5.0 [facility] Comment on above: Order Comment: Speci men Type: BLOOD SPECIMEN Ordering Facility: [facility] Address: [address] [place] [address] Performed By: #### 3 016-3, 20329-3, HSTNT, 79304-9, 24077-2, 38710-6 #### [facility] CLIA [id number] 1 [place] [address] [place] Sodium [Moles/Vol] 130 mmol/L Low 136-144 [facility] Comment on above: Order Comment: Speci men Type: BLOOD SPECIMEN Ordering Facility: [facility] Address: [address] [place] [address] Performed By: #### 3 016-3, 20280-3, HSTNT, 64733-4, 99519-6, 02888-5 #### [facility] CLIA [id number] 1 [place] [address] [place] Base deficit (BldA) [Moles/Vol] -3 mmol/L Low -2-0 [facility] Comment on above: Order Comment: Speci men Type: BLOOD SPECIMEN Ordering Facility: [facility] Address: [address] [place] [address] Performed By: #### 3 016-3, 76027-6, HSTNT, 95822-7, 72314-7, 01276-3 #### [facility] CLIA [id number] 1 [place] [address] [place] Body temperature 98.6 [degF] Normal [facility] Comment on above: Order Comment: Speci men Type: BLOOD SPECIMEN Ordering Facility: [facility] Address: [address] [place] [address] Performed By: #### 3 016-3, 33996-6, HSTNT, 67241-3, 22171-3, 84923-9 #### [facility] CLIA [id number] 1 [place] [address] [place] Calcium.ionized (BldV) [Mass/Vol] 1.33 mmol/L High 1.08-1.30 [facility] Comment on above: Order Comment: Speci men Type: BLOOD SPECIMEN Ordering Facility: [facility] Address: [address] [place] [address] Performed By: #### 3 016-3, 55858-0, HSTNT, 19972-0, 23708-7, 74407-7 #### [facility] CLIA [id number] 1 [place] [address] [place] [facility] Calcium.ionized adjusted to pH 7.4 (BldA) [Moles/Vol] 1.29 mmol/L Normal 1.08-1.30 [facility] Comment on above: Order Comment: Speci men Type: BLOOD SPECIMEN Ordering Facility: [facility] Address: [address] [place] [address] Performed By: #### 3 016-3, 17974-3, HSTNT, 91986-8, 78503-6, 20427-4 #### [facility] CLIA [id number] [address] [place] Carboxyhemoglobin (BldA) [Mass fraction] 0.9 % Normal 0.0-2.0 [facility] Comment on above: Order Comment: Speci men Type: BLOOD SPECIMEN Ordering Facility: [facility] Address: [address] [place] [address] Result Comment: Carb oxyhemoglobin Reference Range for Smokers: 2.0-8.0% Performed By: #### 3 016-3, 71530-6, HSTNT, 87772-6, 99930-2, 74009-0 #### [facility] CLIA [id number] 1 [place] [address] [place] Chloride [Moles/Vol] 103 mmol/L Normal 97-105 [facility] Comment on above: Order Comment: Speci men Type: BLOOD SPECIMEN Ordering Facility: [facility] Address: [address] [place] [address] Performed By: #### 3 016-3, 93437-0, HSTNT, 87660-7, 87017-3, 10805-8 #### [facility] CLIA [id number] 1 [place] [address] [place] CO2 (Bld) [Partial pressure] 44 mm Hg Normal 36-46 [facility] Comment on above: Order Comment: Speci men Type: BLOOD SPECIMEN Ordering Facility: [facility] Address: [address] [place] [address] Performed By: #### 3 016-3, 85976-9, HSTNT, 00976-7, 39415-7, 16757-7 #### [facility] CLIA [id number] 1 [place] [address] [place] Glucose [Mass/Vol] 148 mg/dL High 60-105 [facility] Comment on above: Order Comment: Speci men Type: BLOOD SPECIMEN Ordering Facility: [facility] Address: [address] [place] [address] Performed By: #### 3 016-3, 08879-1, HSTNT, 75727-2, 08202-3, 82737-5 #### [facility] CLIA [id number] [address] [place] [address] [place] HCO3 (Bld) [Moles/Vol] 23 mmol/L Normal 22-26 [facility] Comment on above: Order Comment: Speci men Type: BLOOD SPECIMEN Ordering Facility: [facility] Address: [address] [place] [address] Performed By: #### 3 016-3, 04455-8, HSTNT, 77970-6, 76339-3, 90206-9 #### [facility] CLIA [id number] 1 [place] [address] [place] Hematocrit (Bld) [Volume fraction] 35.9 % Low 39.0-51.0 [facility] Comment on above: Order Comment: Speci men Type: BLOOD SPECIMEN Ordering Facility: [facility] Address: [address] [place] [address] Performed By: #### 3 016-3, 88488-5, HSTNT, 26644-8, 02135-3, 85004-0 #### [facility] CLIA [id number] [address] Hemoglobin (Bld) [Mass/Vol] 11.7 g/dL Low 13.0-17.0 [facility] Comment on above: Order Comment: Speci men Type: BLOOD SPECIMEN Ordering Facility: [facility] Address: [address] [place] [address] Performed By: #### 3 016-3, 16185-0, HSTNT, 68757-5, 09656-8, 28914-9 #### [facility] CLIA [id number] [address] [place] Lactate [Moles/Vol] 3.0 mmol/L High 0.5-2.2 [facility] Comment on above: Order Comment: Speci men Type: BLOOD SPECIMEN Ordering Facility: [facility] Address: [address] [place] [address] Performed By: #### 3 016-3, 57434-7, HSTNT, 33488-0, 08867-1, 93121-4 #### [facility] CLIA [id number] [address] [place] Methemoglobin (Bld) [Mass fraction] 1.0 % Normal 0.0-1.5 [facility] Comment on above: Order Comment: Speci men Type: BLOOD SPECIMEN Ordering Facility: [facility] Address: [address] [place] [address] Performed By: #### 3 016-3, 85220-0, HSTNT, 91847-3, 50947-1, 78945-6 #### [facility] CLIA [id number] [address] [place] O2 THERAPY VENT=Ventilator Normal [facility] Comment on above: Order Comment: Speci men Type: BLOOD SPECIMEN Ordering Facility: [facility] Address: [address] [place] [address] Performed By: #### 3 016-3, 61253-1, HSTNT, 18153-3, 68296-6, 20234-4 #### [facility] CLIA [id number] 1 [place] [address] [place] Oxygen (Bld) [Partial pressure] 228 mm Hg High 85-95 [facility] Comment on above: Order Comment: Speci men Type: BLOOD SPECIMEN Ordering Facility: [facility] Address: [address] [place] [address] Performed By: #### 3 016-3, 99047-8, HSTNT, 84995-5, 35410-1, 26173-0 #### [facility] CLIA [id number] 1 [place] [address] [place] Oxyhemoglobin (BldA) [Mass fraction] 98 % Normal 95-98 [facility] Comment on above: Order Comment: Speci men Type: BLOOD SPECIMEN Ordering Facility: [facility] Address: [address] [place] [address] Performed By: #### 3 016-3, 93647-0, HSTNT, 69970-1, 84872-5, 41004-5 #### [facility] CLIA [id number] 1 [place] [address] [place] pH (Bld) 7.34 [pH] Low 7.35-7.45 [facility] Comment on above: Order Comment: Speci men Type: BLOOD SPECIMEN Ordering Facility: [facility] Address: [address] [place] [address] Performed By: #### 3 016-3, 86234-9, HSTNT, 16063-6, 39953-3, 35112-6 #### [facility] CLIA [id number] 1 [place] [address] [place] Potassium [Moles/Vol] 3.5 mmol/L Normal 3.5-5.0 [facility] Comment on above: Order Comment: Speci men Type: BLOOD SPECIMEN Ordering Facility: [facility] Address: [address] [place] [address] Performed By: #### 3 016-3, 91195-0, HSTNT, 56616-4, 36593-5, 55847-1 #### [facility] CLIA [id number] 1 [place] [address] [place] Sodium [Moles/Vol] 132 mmol/L Low 136-144 [facility] Comment on above: Order Comment: Speci men Type: BLOOD SPECIMEN Ordering Facility: [facility] Address: [address] [place] [address] Performed By: #### 3 016-3, 62233-3, HSTNT, 24133-1, 97287-0, 75090-1 #### [facility] CLIA [id number] 1 [place] [address] [place] Basic metabolic 2000 panelon 03-02-2025 Anion gap [Moles/Vol] 11 mmol/L Normal 8-15 [facility] Comment on above: Order Comment: Speci men Type: BLOOD SPECIMEN Ordering Facility: [facility] Address: [address] [place] [address] Performed By: #### 3 016-3, 70571-5, HSTNT, 81506-1, 32609-5, 72479-5 #### [facility] CLIA [id number] [address] [place] Calcium [Mass/Vol] 9.3 mg/dL Normal 8.5-10.2 [facility] Comment on above: Order Comment: Speci men Type: BLOOD SPECIMEN Ordering Facility: [facility] Address: [address] [place] [address] Performed By: #### 3 016-3, 81069-0, HSTNT, 94121-0, 17100-0, 44767-3 #### [facility] CLIA [id number] [address] [place] Chloride [Moles/Vol] 102 mmol/L Normal 98-107 [facility] Comment on above: Order Comment: Speci men Type: BLOOD SPECIMEN Ordering Facility: [facility] Address: [address] [place] [address] Performed By: #### 3 016-3, 46129-4, HSTNT, 50563-6, 42610-1, 77581-5 #### [facility] CLIA [id number] 1 [place] [address] [place] CO2 [Moles/Vol] 22 mmol/L Normal 22-30 [facility] Comment on above: Order Comment: Speci men Type: BLOOD SPECIMEN Ordering Facility: [facility] Address: [address] [place] [address] Performed By: #### 3 016-3, 84621-2, HSTNT, 23963-4, 23498-4, 40045-0 #### [facility] CLIA [id number] [address] [place] Creatinine [Mass/Vol] 1.00 mg/dL Normal 0.73-1.22 [facility] Comment on above: Order Comment: Speci men Type: BLOOD SPECIMEN Ordering Facility: [facility] Address: [address] [place] [address] Performed By: #### 3 016-3, 18357-8, HSTNT, 93475-4, 82878-7, 45412-3 #### [facility] CLIA [id number] [address] [place] eGFRcr SerPlBld CKD-EPI 2020 74 mL/min/1.73m??? Normal >=60 [facility] Comment on above: Order Comment: Speci men Type: BLOOD SPECIMEN Ordering Facility: [facility] Address: [address] [place] [address] Result Comment: Monie mated Glomerular Filtration Rate (eGFR) is calculated using the 2020 CKD-EPI creatinine equation. This equation utilizes serum creatinine, sex, and age as parameters. The creatinine assay has traceable calibration to isotope dilution-mass spectrometry. Refer to KDIGO guidelines for clinical interpretation. In patients with unstable renal function, e.g. those with acute kidney injury, the eGFR may not accurately reflect actual GFR. Performed By: #### 3 016-3, 06587-1, HSTNT, 42365-8, 95585-6, 74906-3 #### [facility] CLIA [id number] 1 [place] [address] [place] Glucose [Mass/Vol] 147 mg/dL High 74-99 [facility] Comment on above: Order Comment: Sharon shaw Type: BLOOD SPECIMEN Ordering Facility: [facility] Address: [address] [place] [address] Result Comment: The [place] [employer] (ADA) provides guidance for cutoff values for fasting glucose and random glucose. The ADA defines fasting as no caloric intake for at least 8 hours. Fasting plasma glucose results between 100 to 125 mg/dL indicate increased risk for diabetes (prediabetes). Fasting plasma glucose results greater than or equal to 126 mg/dL meet the criteria for diagnosis of diabetes. In the absence of unequivocal hyperglycemia, results should be confirmed by repeat testing. In a patient with classic symptoms of hyperglycemia or hyperglycemic crisis, random plasma glucose results greater than or equal to 200 mg/dL meet the criteria for diagnosis of diabetes. Reference: Standards of Medical Care in Diabetes 2016, [place] [employer]. Diabetes Care. 2016.39(Suppl 1). Performed By: #### 3 016-3, 83663-4, HSTNT, 68072-3, 71977-2, 74597-3 #### [facility] CLIA [id number] 1 [place] [address] [place] Potassium [Moles/Vol] 3.6 mmol/L Low 3.7-5.1 [facility] Comment on above: Order Comment: Sharon shaw Type: BLOOD SPECIMEN Ordering Facility: [facility] Address: [address] [place] [address] Performed By: #### 3 016-3, 21801-5, HSTNT, 10720-1, 21216-3, 27676-6 #### [facility] CLIA [id number] [address] [place] [address] [place] Sodium [Moles/Vol] 135 mmol/L Low 136-144 [facility] Comment on above: Order Comment: Sharon shaw Type: BLOOD SPECIMEN Ordering Facility: [facility] Address: [address] [place] [address] Performed By: #### 3 016-3, 00223-5, HSTNT, 11416-1, 61732-1, 81163-5 #### [facility] CLIA [id number] [address] [place] [address] [place] Urea nitrogen [Mass/Vol] 14 mg/dL Normal 9-24 [facility] Comment on above: Order Comment: Speci men Type: BLOOD SPECIMEN Ordering Facility: [facility] Address: [address] [place] [address] Performed By: #### 3 016-3, 70237-2, HSTNT, 14055-2, 73623-0, 69143-9 #### [facility] CLIA [id number] [address] [place] [address] [place] Anion gap [Moles/Vol] 10 mmol/L Normal 8-15 [facility] Comment on above: Order Comment: Speci men Type: BLOOD SPECIMEN Ordering Facility: [facility] Address: [address] [place] [address] Performed By: #### 3 016-3, 69443-4, HSTNT, 59551-6, 64962-1, 00874-4 #### [facility] CLIA [id number] [address] [place] [address] [place] Calcium [Mass/Vol] 9.4 mg/dL Normal 8.5-10.2 [facility] Comment on above: Order Comment: Speci men Type: BLOOD SPECIMEN Ordering Facility: [facility] Address: [address] [place] [address] Performed By: #### 3 016-3, 64285-7, HSTNT, 59322-1, 64902-4, 35078-8 #### [facility] CLIA [id number] [address] [place] [address] [place] Chloride [Moles/Vol] 100 mmol/L Normal 98-107 [facility] Comment on above: Order Comment: Speci men Type: BLOOD SPECIMEN Ordering Facility: [facility] Address: [address] [place] [address] Performed By: #### 3 016-3, 98995-5, HSTNT, 07450-7, 51216-6, 47305-2 #### [facility] CLIA [id number] 1 [place] [address] [place] CO2 [Moles/Vol] 26 mmol/L Normal 22-30 [facility] Comment on above: Order Comment: Speci colin Type: BLOOD SPECIMEN Ordering Facility: [facility] Address: [address] [place] [address] Performed By: #### 3 016-3, 58506-6, HSTNT, 11732-6, 98206-6, 43291-6 #### [facility] CLIA [id number] 1 [place] [address] [place] Creatinine [Mass/Vol] 1.21 mg/dL Normal 0.73-1.22 [facility] Comment on above: Order Comment: Speci men Type: BLOOD SPECIMEN Ordering Facility: [facility] Address: [address] [place] [address] Performed By: #### 3 016-3, 70511-8, HSTNT, 60598-7, 85065-6, 28427-1 #### [facility] CLIA [id number] [address] [place] eGFRcr SerPlBld CKD-EPI 2020 59 mL/min/1.73m??? Low >=60 [facility] Comment on above: Order Comment: Sharon shaw Type: BLOOD SPECIMEN Ordering Facility: [facility] Address: [address] [place] [address] Result Comment: Monie mated Glomerular Filtration Rate (eGFR) is calculated using the 2020 CKD-EPI creatinine equation. This equation utilizes serum creatinine, sex, and age as parameters. The creatinine assay has traceable calibration to isotope dilution-mass spectrometry. Refer to KDIGO guidelines for clinical interpretation. In patients with unstable renal function, e.g. those with acute kidney injury, the eGFR may not accurately reflect actual GFR. Performed By: #### 3 016-3, 23010-9, HSTNT, 22966-7, 57753-9, 57804-6 #### [facility] CLIA [id number] 1 [place] [address] [place] Glucose [Mass/Vol] 100 mg/dL High 74-99 [facility] Comment on above: Order Comment: Sharon shaw Type: BLOOD SPECIMEN Ordering Facility: [facility] Address: [address] [place] [address] Result Comment: The [place] Diabetes [employer] (ADA) provides guidance for cutoff values for fasting glucose and random glucose. The ADA defines fasting as no caloric intake for at least 8 hours. Fasting plasma glucose results between 100 to 125 mg/dL indicate increased risk for diabetes (prediabetes). Fasting plasma glucose results greater than or equal to 126 mg/dL meet the criteria for diagnosis of diabetes. In the absence of unequivocal hyperglycemia, results should be confirmed by repeat testing. In a patient with classic symptoms of hyperglycemia or hyperglycemic crisis, random plasma glucose results greater than or equal to 200 mg/dL meet the criteria for diagnosis of diabetes. Reference: Standards of Medical Care in Diabetes 2016, [place] [employer]. Diabetes Care. 2016.39(Suppl 1). Performed By: #### 3 016-3, 73092-6, HSTNT, 50088-1, 88639-6, 88115-0 #### [facility] CLIA [id number] 1 [place] [address] [place] Potassium [Moles/Vol] 4.1 mmol/L Normal 3.7-5.1 [facility] Comment on above: Order Comment: Sharon shaw Type: BLOOD SPECIMEN Ordering Facility: [facility] Address: [address] [place] [address] Performed By: #### 3 016-3, 29949-2, HSTNT, 65358-0, 18703-1, 40721-5 #### [facility] CLIA [id number] 1 [place] [address] [place] Sodium [Moles/Vol] 136 mmol/L Normal 136-144 [facility] Comment on above: Order Comment: Sharon shaw Type: BLOOD SPECIMEN Ordering Facility: [facility] Address: [address] [place] [address] Performed By: #### 3 016-3, 78368-2, HSTNT, 17342-9, 48524-1, 76192-7 #### [facility] CLIA [id number] 1 [place] [address] [place] Urea nitrogen [Mass/Vol] 16 mg/dL Normal 9-24 [facility] Comment on above: Order Comment: Speci men Type: BLOOD SPECIMEN Ordering Facility: [facility] Address: [address] [place] [address] Performed By: #### 3 016-3, 92453-8, HSTNT, 54584-2, 17051-0, 06686-1 #### [facility] CLIA [id number] 1 [place] [address] [place] CBC panel Auto (Bld)on 03-02 Erythrocyte distribution width (RBC) [Ratio] 12.4 % Normal 11.5-15.0 [facility] Comment on above: Order Comment: Speci men Type: BLOOD SPECIMEN Ordering Facility: [facility] Address: [address] [place] [address] Performed By: #### 3 016-3, 28530-6, HSTNT, 51567-2, 84076-0, 53053-1 #### [facility] CLIA [id number] [address] [place] Hematocrit (Bld) [Volume fraction] 33.1 % Low 39.0-51.0 [facility] Comment on above: Order Comment: Speci men Type: BLOOD SPECIMEN Ordering Facility: [facility] Address: [address] [place] [address] Performed By: #### 3 016-3, 00759-4, HSTNT, 04055-7, 15244-1, 50263-3 #### [facility] CLIA [id number] 1 [place] [address] [place] Hemoglobin (Bld) [Mass/Vol] 11.6 g/dL Low 13.0-17.0 [facility] Comment on above: Order Comment: Speci men Type: BLOOD SPECIMEN Ordering Facility: [facility] Address: [address] [place] [address] Performed By: #### 3 016-3, 60371-4, HSTNT, 04231-7, 97540-4, 01374-7 #### [facility] CLIA [id number] [address] MCH (RBC) [Entitic mass] 32.0 pg Normal 26.0-34.0 [facility] Comment on above: Order Comment: Speci men Type: BLOOD SPECIMEN Ordering Facility: [facility] Address: [address] [place] [address] Performed By: #### 3 016-3, 34743-8, HSTNT, 41480-2, 74594-3, 29834-6 #### [facility] CLIA [id number] [address] MCHC (RBC) [Mass/Vol] 35.0 g/dL Normal 30.5-36.0 [facility] Comment on above: Order Comment: Speci men Type: BLOOD SPECIMEN Ordering Facility: [facility] Address: [address] [place] [address] Performed By: #### 3 016-3, 13643-0, HSTNT, 33196-6, 20334-3, 50893-0 #### [facility] CLIA [id number] [address] MCV (RBC) [Entitic vol] 91.2 fL Normal 80.0-100.0 [facility] Comment on above: Order Comment: Speci men Type: BLOOD SPECIMEN Ordering Facility: [facility] Address: [address] [place] [address] Performed By: #### 3 016-3, 77205-3, HSTNT, 59655-6, 93761-2, 81143-9 #### [facility] CLIA [id number] [address] Nucleated RBC (Bld) [#/Vol] 10*3/uL Normal <0.01 [facility] Comment on above: Order Comment: Speci men Type: BLOOD SPECIMEN Ordering Facility: [facility] Address: [address] [place] [address] Performed By: #### 3 016-3, 67510-3, HSTNT, 23808-6, 14017-8, 18186-8 #### [facility] CLIA [id number] [address] [place] Platelet mean volume (Bld) [Entitic vol] 10.5 fL Normal 9.0-12.7 [facility] Comment on above: Order Comment: Speci men Type: BLOOD SPECIMEN Ordering Facility: [facility] Address: [address] [place] [address] Performed By: #### 3 016-3, 39504-0, HSTNT, 20839-4, 72123-3, 87790-6 #### [facility] CLIA [id number] [address] Platelets (Bld) [#/Vol] 166 10*3/uL Normal 150-400 [facility] Comment on above: Order Comment: Speci men Type: BLOOD SPECIMEN Ordering Facility: [facility] Address: [address] [place] [address] Performed By: #### 3 016-3, 89647-6, HSTNT, 10250-4, 47208-1, 04770-3 #### [facility] CLIA [id number] [address] [place] RBC (Bld) [#/Vol] 3.63 10*6/uL Low 4.20-6.00 [facility] Comment on above: Order Comment: Speci men Type: BLOOD SPECIMEN Ordering Facility: [facility] Address: [address] [place] [address] Performed By: #### 3 016-3, 04809-7, HSTNT, 25227-5, 55736-6, 88650-3 #### [facility] CLIA [id number] [address] [place] WBC (Bld) [#/Vol] 25.71 10*3/uL High 3.70-11.00 [facility] Comment on above: Order Comment: Speci men Type: BLOOD SPECIMEN Ordering Facility: [facility] Address: [address] [place] [address] Performed By: #### 3 016-3, 68293-7, HSTNT, 18817-9, 85816-1, 34437-7 #### [facility] CLIA [id number] [address] Erythrocyte distribution width (RBC) [Ratio] 12.3 % Normal 11.5-15.0 [facility] Comment on above: Order Comment: Speci men Type: BLOOD SPECIMEN Ordering Facility: [facility] Address: [address] [place] [address] Performed By: #### 3 016-3, 20593-0, HSTNT, 17635-1, 95508-5, 56334-1 #### [facility] CLIA [id number] [address] [place] [address] Hematocrit (Bld) [Volume fraction] 43.4 % Normal 39.0-51.0 [facility] Comment on above: Order Comment: Speci men Type: BLOOD SPECIMEN Ordering Facility: [facility] Address: [address] [place] [address] Performed By: #### 3 016-3, 93526-6, HSTNT, 86311-3, 64314-2, 68724-2 #### [facility] CLIA [id number] [address] [place] [address] [place] Hemoglobin (Bld) [Mass/Vol] 14.7 g/dL Normal 13.0-17.0 [facility] Comment on above: Order Comment: Speci men Type: BLOOD SPECIMEN Ordering Facility: [facility] Address: [address] [place] [address] Performed By: #### 3 016-3, 36962-6, HSTNT, 18495-7, 95251-0, 76131-7 #### [facility] CLIA [id number] [address] [place] MCH (RBC) [Entitic mass] 31.3 pg Normal 26.0-34.0 [facility] Comment on above: Order Comment: Speci men Type: BLOOD SPECIMEN Ordering Facility: [facility] Address: [address] [place] [address] Performed By: #### 3 016-3, 46998-6, HSTNT, 68031-2, 86405-5, 04345-4 #### [facility] CLIA [id number] [address] MCHC (RBC) [Mass/Vol] 33.9 g/dL Normal 30.5-36.0 [facility] Comment on above: Order Comment: Speci men Type: BLOOD SPECIMEN Ordering Facility: [facility] Address: [address] [place] [address] Performed By: #### 3 016-3, 96819-3, HSTNT, 13776-9, 67392-5, 19475-8 #### [facility] CLIA [id number] [address] [place] [facility] MCV (RBC) [Entitic vol] 92.3 fL Normal 80.0-100.0 [facility] Comment on above: Order Comment: Speci men Type: BLOOD SPECIMEN Ordering Facility: [facility] Address: [address] [place] [address] Performed By: #### 3 016-3, 14190-3, HSTNT, 60869-3, 91536-3, 96964-0 #### [facility] CLIA [id number] [address] [place] [facility] Nucleated RBC (Bld) [#/Vol] 10*3/uL Normal <0.01 [facility] Comment on above: Order Comment: Speci men Type: BLOOD SPECIMEN Ordering Facility: [facility] Address: [address] [place] [address] Performed By: #### 3 016-3, 33687-9, HSTNT, 68825-3, 51418-6, 90751-8 #### [facility] CLIA [id number] [address] Platelet mean volume (Bld) [Entitic vol] 10.6 fL Normal 9.0-12.7 [facility] Comment on above: Order Comment: Speci men Type: BLOOD SPECIMEN Ordering Facility: [facility] Address: [address] [place] [address] Performed By: #### 3 016-3, 98235-2, HSTNT, 30701-6, 61004-5, 05218-2 #### [facility] CLIA [id number] [address] OF [facility] Platelets (Bld) [#/Vol] 222 10*3/uL Normal 150-400 [facility] Comment on above: Order Comment: Speci men Type: BLOOD SPECIMEN Ordering Facility: [facility] Address: [address] [place] [address] Performed By: #### 3 016-3, 32547-1, HSTNT, 74797-7, 56160-0, 97275-6 #### [facility] CLIA [id number] [address] RBC (Bld) [#/Vol] 4.70 10*6/uL Normal 4.20-6.00 [facility] Comment on above: Order Comment: Speci men Type: BLOOD SPECIMEN Ordering Facility: [facility] Address: [address] [place] [address] Performed By: #### 3 016-3, 44710-8, HSTNT, 78452-9, 38117-6, 72624-2 #### [facility] CLIA [id number] [address] [place] WBC (Bld) [#/Vol] 8.49 10*3/uL Normal 3.70-11.00 [facility] Comment on above: Order Comment: Speci men Type: BLOOD SPECIMEN Ordering Facility: [facility] Address: [address] [place] [address] Performed By: #### 3 016-3, 77686-2, HSTNT, 85641-8, 02466-7, 83381-0 #### [facility] CLIA [id number] [address] OF [facility] CONSULTon 11-11-2025 CONSULT HNO ID: [id number] Author: HERNANDEZ RENE MD Service: Critical Care Author Type: Physician Type: Consults Filed: 03/02/2025 17:53 Note Text: CRITICAL CARE CONSULT NOTE SERVICE DATE: March 02, 2025 Admission Date: 02/24/2025 Consulted by: Dr. Sagastume Reason for Consult: s/p CABG AGE: [age] year old LOS: 5 days Subjective 85 year old male who presents as transfer from [facility]. He was mowing the grass last week and was experiencing exertional shortness of breath with some right sided chest discomfort. He was admitted to [facility] and diagnosed with NSTEMI. Cardiac catheterization revealed severe 3-vessel CAD. Transferred to [facility] for consideration of CABG. He underwent CABG x 4 today. No acute intraoperative events. He has been weaned off all pressors. Extubated in my presence to low-flow nasal cannula. Intermittent A-fib on monitor. 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 Ed (Erectile Dysfunction) Episodic Cluster Headache, Not Intractable Htn (Hypertension) Cabg (Coronary Artery Bypass Graft) Planned Nstemi (Non-St Elevated Myocardial Infarction) (Hcc) Cad, Multiple Vessel Elevated Brain Natriuretic Peptide (Bnp) Level Troponin Level Elevated Acute Heart Failure With Preserved Ejection Fraction (Hfpef) ([facility]) Bradycardia Second Degree Atrioventricular Block, Mobitz Type I Ectopic Atrial Rhythm 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 PAF (paroxysmal atrial fibrillation) ([facility]) 02/25/2025 Primary hypertension 10/13/2024 PAST SURGICAL HISTORY Procedure Laterality Date ARTHROSCOPY KNEE DIAGNOSTIC W/WO SYNOVIAL BX SPX ~1979 Arthroscopy, left knee COLONOSCOPY AND POLYPECTOMY 06/18/2001,04/10/00 Colonoscopy COLONOSCOPY FLX DX W/COLLJ SPEC WHEN PFRMD 07/09/2007 repeat due 2012 COLONOSCOPY FLX DX W/COLLJ SPEC WHEN PFRMD 05/27/2012 no polyps, repeat due 2017 COLONOSCOPY FLX DX W/COLLJ SPEC WHEN PFRMD 01/20/2018 Colonoscopy COLONOSCOPY W/BIOPSY SINGLE/MULTIPLE 05/10/2005 LEFT HEART CATH,PERCUTANEOUS 02/24/2025 severe 3-vessel CAD; [facility] RAD RESECT TUMOR SOFT TISS NECK/ANT THORAX <5CM ~1970 BREAST TUMOR, left RELEASE PALM CONTRACTURE 01/15/2012 Right hand needle aponeurotomy REMV CATARACT EXTRACAP,INSERT LENS Bilateral SOCIAL HISTORY[1] VITAL SIGNS (last 24hrs min/max): Temp Av.9 ?C (96.7 ?F) Min: 35.4 ?C (95.7 ?F) Max: 36.5 ?C (97.7 ?F) Pulse Av.4 Min: 0 Max: 185 Arterial BP 1 Min: 54/49 Max: 177/69 Cuff BP Min: 69/47 Max: 161/74 Pain Level: 0 Vital signs reviewed. BP 155/77 Pulse 86 Temp (Src) 97.7 (Pina Thermistor) Resp 15 Ht 5' 10 (1.78m) Wt 186 lb 15.2 oz (84.8kg) SpO2 98% BMI 26.82 kg/(m2). O2 Therapy: Nasal Cannula, Liters (Numeric Only): 4, %FIO2: 40 Temp (24hrs), Av.9 ?C (96.7 ?F), Min:35.4 ?C (95.7 ?F), Max:36.5 ?C (97.7 ?F) NET FLUID BALANCE Intake/Output Summary (Last 24 hours) at 03/02/2025 1744 Last data filed at 03/02/2025 1700 Gross per 24 hour Intake 7800.7 ml Output 2515 ml Net 5285.7 ml MEDICATIONS Current Facility-Administered Medications Medication Dose Route Frequency lactated ringers iv infusion 50 mL/hr INTRAVENOUS CONTINUOUS insulin regular 100 units in NaCl 0.9% 100 mL - AK CARD SURG NOMOGRAM 0-12 Units/hr INTRAVENOUS CONTINUOUS insulin regular human 10 Units bolus from bag 10 Units INTRAVENOUS PRN dextrose 10% iv bolus 12.5 g INTRAVENOUS PRN albuterol 2.5 mg /3 mL (0.083 %) 2.5 mg (PROVENTIL) 2.5 mg INHALATION q 2 H PRN vancomycin iv piggyback 1.25 g in D5W 250 mL (VANCOCIN) 0.015 g/kg/dose INTRAVENOUS q 12 HR ondansetron (PF) 4 mg injection (ZOFRAN) 4 mg INTRAVENOUS q 6 H PRN potassium chloride iv piggyback 20 mEq/100 mL 20 mEq INTRAVENOUS PRN magnesium sulfate iv piggyback in sterile water 2 g 50 mL 2 g INTRAVENOUS PRN(NO DISPENSE) acetaminophen 1,000 mg tab(s) (TYLENOL) 1,000 mg ORAL QID gabapentin 200 mg cap(s) (NEURONTIN) 200 mg ORAL BID lidocaine 4 % 1 patch (SALONPAS) 1 patch TRANSDERMAL DAILY And lidocaine patch - REMOVE OTHER AT BEDTIME And lidocaine - VERIFY PATCH OTHER q 8 H magnesium oxide 400 mg tab(s) (MAG-OX) 400 mg ORAL DAILY traMADol 50-100 mg tab(s) (ULTRAM) 50-100 (more content not included)... Normal [facility] ECG COMPLETEon 03-02-2025 ECG COMPLETE Ventricular Rate : 8 2 BPM QRS Duration : 94 ms Q-T Interval : 464 ms QTC Calculation(Bazett) : 542 ms Calculated R Condon : 33 degrees Calculated T Condon : 54 degrees SINUS RHYTHM WITH BRIEF RUNS OF AFIB NONSPECIFIC ST AND T WAVE ABNORMALITY PROLONGED QT ABNORMAL ECG WHEN COMPARED WITH ECG OF 01-Mar-2025 12:55, ATRIAL FIBRILLATION HAS REPLACED SINUS RHYTHM QT HAS LENGTHENED Confirmed by MD HOPPER VINAY ([id number]) on 03/03/2025 12:27:40 PM NAME : ELSA PALACIO PID : [id number] : 1940 Gender : Male Race : ORD : [id number] Procedure Date : Mar 02 2025 14:10:01 Edit Date : Mar 03 2025 12:27:44 Diagnosis: SINUS RHYTHM WITH BRIEF RUNS OF AFIB NONSPECIFIC ST AND T WAVE ABNORMALITY PROLONGED QT ABNORMAL ECG WHEN COMPARED WITH ECG OF 01-Mar-2025 12:55, ATRIAL FIBRILLATION HAS REPLACED SINUS RHYTHM QT HAS LENGTHENED Confirmed by MD HOPPER VINAY ([id number]) on 03/03/2025 12:27:40 PM Test Reason : Post-OP Location : [address] : [place] [address] Overread By : MD HOPPER VINAY Edited By : MD HOPPER VINAY Referred By : SHAWN CHAU Acquired by : JADEN US [facility] Fibrinogen PPP-mCncon 2024 Fibrinogen Coag (PPP) [Mass/Vol] 159 mg/dL Low 200-400 [facility] Comment on above: Order Comment: Speci colin Type: BLOOD SPECIMEN Ordering Facility: [facility] Address: [address] [place] [address] Performed By: #### 3 016-3, 76296-4, HSTNT, 05411-2, 10802-3, 20557-5 #### [facility] CLIA [id number] [address] Magnesium SerPl-ncon 03-02 Magnesium [Mass/Vol] 2.4 mg/dL High 1.7-2.3 [facility] Comment on above: Order Comment: Speci men Type: BLOOD SPECIMEN Ordering Facility: [facility] Address: [address] [place] [address] Performed By: #### 3 016-3, 31569-8, HSTNT, 98972-2, 59413-8, 84083-6 #### [facility] CLIA [id number] [address] STATES OF [facility] Magnesium [Mass/Vol] 2.0 mg/dL Normal 1.7-2.3 [facility] Comment on above: Order Comment: Speci men Type: BLOOD SPECIMEN Ordering Facility: [facility] Address: [address] [place] [address] Performed By: #### 3 016-3, 14982-4, HSTNT, 52598-1, 50501-5, 05176-7 #### [facility] CLIA [id number] [address] [place] OPERATIVE NOon 03-02-2025 OPERATIVE NO HNO ID: [id number] Author: JOHN SAGASTUME MD Service: Cardiac Surgery Author Type: Physician Type: Operative Report Filed: 03/02/2025 15:01 Note Text: [facility] CARDIO-THORACICSURGER Y OPERATIVE/PROCEDURE REPORT LOG ID: [id number] SURGERY/PROCEDURE DATE: 03/02/2025 INCISION/PROCEDURE START TIME: 8:23 AM INCISION CLOSE/PROCEDURE END TIME: 1:32 PM SURGEON(S)/PROCEDURAL IST(S) AND [employer] STAYER MACHINE OPERATOR(S): Surgeons and Role: * John Sagastume MD - Primary * Evgeny White MD - Resident - Assisting Physician Energy Manager: Shanique Degroot PA-C; Rita Henley PA-C ANESTHESIA: General CTS OP REPORTS Procedure(s): Coronary Artery Bypass Graft Preop Diagnosis: Complex Vessel Coronary Artery Disease Post-Operative Diagnosis: Same as preop Findings/Additional Details: PROCEDURE: CABG x4 (MALAGON-LAD, SVG-distal RCA proper, SVG-OM1, SVG-D1) INDICATION: Severe CAD FINDINGS: Small and diffusely diseased distal targets Excellent flows with low PIs in grafts WIRES: RV. PULL. TUBES: LP x1. Med x1. Description Of Procedure: Patient Status: Elective Reoperation: No previous surgerie(s) Operative Approach: Open approach Open Approach Type: Median sternotomy PUMP: On cardiopulmonary bypass Arterial Cannulation: Ascending Aorta Venous Cannulation: Right Atrial Epiaortic Ultrasound Used: No CARDIOPLEGIA: [place] Cardioplegia Delivery: Antegrade and Retrograde, Indirect Coronary Artery Bypass Graft (CABG): Conduit Quality: Normal caliber with excellent flow Aorta Quality: Normal Coronary Artery Quality: Small and severely diseased distal targets Proximal Technique: Single cross clamp GRAFTS: MALAGON in situ mammary end to side mid LAD Vein graft ascending aorta end to side obtuse marginal 1 Vein graft ascending aorta end to side RCA Vein graft ascending aorta end to side diagonal 1 Left SAM: Skeletonized Galva Technique: Direct vision (open) Vein(s) Harvested: Left leg greater saphenous Post-Bypass: Aortic Occlusion: Aortic cross clamp WEANING FROM BYPASS: Requiring inotropes PACING WIRES: Right ventricle which can be pulled CHEST TUBES/DRAINS: Left chest tube and Mediastinal chest tube CLOSURE: Sternal plates Post Procedure Details: Patient Tolerance of Procedure: Tolerated well, no immediate complications Sponge/Instrument/Nee dle Counts: Final Counts Correct Estimated Blood Loss: 250 mL of shed blood was preserved by cardiopulmonary bypass pump and the cell saver. Specimens: None Complex Surgery: No Surgeon/Energy Manager Participation: The primary Surgeon/Proceduralist performed the procedure with assistance. Rug Clipper: opened, closed and harvested grafts Second Assist: closed, harvested grafts and opened SPECIMENS: COMPLETED BY: Evgeny White MD PATIENT NAME: Elsa Palacio DATE: March 02, 2025 TIME: 1:35 PM AGE: [age] year old .[facility] POTASSIUMon 03-02-2025 Potassium [Moles/Vol] 4.9 mmol/L Normal 3.7-5.1 [facility] Comment on above: Order Comment: Sharon shaw Type: BLOOD SPECIMEN Ordering Facility: [facility] Address: [address] [place] [address] Performed By: #### 3 016-3, 23130-3, HSTNT, 04766-2, 60554-0, 86138-5 #### [facility] CLIA [id number] [address] [facility] PT panel Coag (PPP)on 2024 INR Coag (PPP) [Relative time] 1.3 {INR} Normal 0.9-1.3 [facility] Comment on above: Order Comment: Sharon shaw Type: BLOOD SPECIMEN Ordering Facility: [facility] Address: [address] [place] [address] Result Comment: Sigrid min K Antagonist (VKA) Therapeutic Range: INR 2 to 3 (Target INR of 2.5) Note: For patients treated with VKA drugs, such as warfarin, the [place] [employer] 2012 Guideline recommends a therapeutic INR range of 2 to 3 (target INR of 2.5). This recommendation includes high-risk patients with antiphospholipid syndrome with previous arterial or venous thromboembolism, current-generation mechanical or bioprosthetic aortic heart valve replacement. Note: Patients with mechanical aortic valve replacement and additional risk factors for thromboembolic events (atrial fibrillation, previous thromboembolism, LV dysfunction, hypercoagulable conditions) or an older generation mechanical AVR (i.e., ball in-Cage) or any mechanical MVR should have a INR therapeutic range of 2.5 to 3.5 (target INR of 3). Jhoan ZEPEDA, et al. Chest 2012, 141:7S-47S Jose RA, et al. [facility] 2017, 70: 252-289 Performed By: #### 3 016-3, 72412-9, HSTNT, 45622-1, 53600-1, 02489-9 #### [facility] CLIA [id number] [address] [place] PT Coag (PPP) [Time] 13.1 s High 9.7-13.0 [facility] Comment on above: Order Comment: Speci men Type: BLOOD SPECIMEN Ordering Facility: [facility] Address: [address] [place] [address] Performed By: #### 3 016-3, 61078-0, HSTNT, 87621-8, 64472-7, 01409-5 #### [facility] CLIA [id number] [address] [facility] THERAPY NTon 03-02-2025 THERAPY NT HNO ID: [id number] Author: HERMINIA CORDERO RRT Service: Respiratory Therapy Author Type: Registered Resp Therapist Type: Therapy (PT/OT/Speech/Resp) Filed: 03/02/2025 16:50 Note Text: Summary: Extubation parameters RESPIRATORY THERAPY PROGRESS NOTE SERVICE DATE: 03/02/2025 03/02/25 8763 Extubation Parameters $Extubation Parameters $Extubation Parameters Performed Spontaneous Respiratory Rate (BPM) 12 Spontaneous Minute Volume (L/min) 7.6 Spontaneous Tidal Volume (mL) 686 Rapid Shallow Breathing Index (RSBI) 17.49 Forced Vital Capacity (L) 1.8 Negative Inspiratory Force (cm H2O) -32 PaO2/FIO2 > or = 200 Y Diaphoretic/Agitated N Suctioning Less Frequent Than Q2H Y Cuff Leak Y Head Lift Yes Adequate Cough/Gag Reflex Y Normal [facility] XR CHEST 1V FRONTALon 2024 XR CHEST 1V FRONTAL * * *Final Report* * * DATE OF EXAM: Mar 02 2025 2:53PM AKX 5290 - XR CHEST 1V FRONTAL / PROCEDURE REASON: Post-operative/post-p rocedure assessment * * * * Physician Interpretation * * * * EXAMINATION: CHEST RADIOGRAPH (SINGLE VIEW AP OR PA) CLINICAL HISTORY: Post-operative/post-p rocedure assessment MQ: XC1_5 Comparison: 03/01/2025 RESULT: Lines, tubes, and devices: Tip of endotracheal tube at the level of T4 with enteric tube passing in the stomach. Right internal jugular central line with tip in the midsuperior vena cava. Left-sided chest tube with tip directed laterally and inferiorly. Overlying child monitor leads. Lungs and pleura: No pneumothorax. Minimal atelectasis at the lung bases. Lungs are otherwise grossly clear. Cardiomediastinal silhouette: Normal cardiomediastinal silhouette. Other: No significant additional findings. IMPRESSION: 1. Lines and tubes as noted. 2. Minimal atelectasis at the lung bases. Fire Extinguisher Tester: GAEL Transcribe Date/Time: Mar 02 2025 3:12P Dictated by : NEIL CARTER MD This examination was interpreted and the report reviewed and electronically signed by: NEIL CARTER MD on Mar 02 2025 3:13PM EST [id number] Normal [facility] aPTT PPPon 03-02-2025 aPTT Coag (PPP) [Time] 27.3 s Normal 23.0-32.4 [facility] Comment on above: Order Comment: Speci men Type: BLOOD SPECIMEN Ordering Facility: [facility] Address: [address] [place] [address] Performed By: #### 3 016-3, 77209-3, T, 72052-6, 71428-7, 92021-3 #### [facility] CLIA [id number] 1 [place] [address] [place] Basic metabolic 2000 panelon 03-01-2025 Anion gap [Moles/Vol] 12 mmol/L Normal 8-15 [facility] Comment on above: Order Comment: Speci men Type: BLOOD SPECIMEN Ordering Facility: [facility] Address: [address] [place] [address] Performed By: #### 1 9123-9, 56393-2 #### [facility] CLIA [id number] 1 [place] [address] [place] Calcium [Mass/Vol] 9.1 mg/dL Normal 8.5-10.2 [facility] Comment on above: Order Comment: Speci men Type: BLOOD SPECIMEN Ordering Facility: [facility] Address: [address] [place] [address] Performed By: #### 1 91239, 78094-6 #### [facility] CLIA [id number] 1 [place] [address] [place] Chloride [Moles/Vol] 101 mmol/L Normal 98-107 [facility] Comment on above: Order Comment: Speci men Type: BLOOD SPECIMEN Ordering Facility: [facility] Address: [address] [place] [address] Performed By: #### 1 91239, 52673-0 #### [facility] CLIA [id number] 1 [place] [address] [place] CO2 [Moles/Vol] 21 mmol/L Low 22-30 [facility] Comment on above: Order Comment: Speci men Type: BLOOD SPECIMEN Ordering Facility: [facility] Address: [address] [place] [address] Performed By: #### 1 9123-9, 16662-7 #### [facility] CLIA [id number] 1 [place] [address] [place] Creatinine [Mass/Vol] 1.07 mg/dL Normal 0.73-1.22 [facility] Comment on above: Order Comment: Sharon shaw Type: BLOOD SPECIMEN Ordering Facility: [facility] Address: [address] [place] [address] Performed By: #### 1 9123-9, 74077-2 #### [facility] CLIA [id number] 1 [place] [address] [place] eGFRcr SerPlBld CKD-EPI 2020 68 mL/min/1.73m??? Normal >=60 [facility] Comment on above: Order Comment: Sharon shaw Type: BLOOD SPECIMEN Ordering Facility: [facility] Address: [address] [place] [address] Result Comment: Monie mated Glomerular Filtration Rate (eGFR) is calculated using the 2020 CKD-EPI creatinine equation. This equation utilizes serum creatinine, sex, and age as parameters. The creatinine assay has traceable calibration to isotope dilution-mass spectrometry. Refer to KDIGO guidelines for clinical interpretation. In patients with unstable renal function, e.g. those with acute kidney injury, the eGFR may not accurately reflect actual GFR. Performed By: #### 1 9123-9, 02011-2 #### [facility] CLIA [id number] [address] [place] [address] [place] Glucose [Mass/Vol] 99 mg/dL Normal 74-99 [facility] Comment on above: Order Comment: Sharon colin Type: BLOOD SPECIMEN Ordering Facility: [facility] Address: [address] [place] [address] Result Comment: The [place] [employer] (ADA) provides guidance for cutoff values for fasting glucose and random glucose. The ADA defines fasting as no caloric intake for at least 8 hours. Fasting plasma glucose results between 100 to 125 mg/dL indicate increased risk for diabetes (prediabetes). Fasting plasma glucose results greater than or equal to 126 mg/dL meet the criteria for diagnosis of diabetes. In the absence of unequivocal hyperglycemia, results should be confirmed by repeat testing. In a patient with classic symptoms of hyperglycemia or hyperglycemic crisis, random plasma glucose results greater than or equal to 200 mg/dL meet the criteria for diagnosis of diabetes. Reference: Standards of Medical Care in Diabetes 2016, [place] [employer]. Diabetes Care. 2016.39(Suppl 1). Performed By: #### 1 9123-9, 22068-4 #### [facility] CLIA [id number] [address] [place] Potassium [Moles/Vol] 4.2 mmol/L Normal 3.7-5.1 [facility] Comment on above: Order Comment: Speci men Type: BLOOD SPECIMEN Ordering Facility: [facility] Address: [address] [place] [address] Performed By: #### 1 9123-9, 57545-2 #### [facility] CLIA [id number] [address] [place] Sodium [Moles/Vol] 134 mmol/L Low 136-144 [facility] Comment on above: Order Comment: Speci men Type: BLOOD SPECIMEN Ordering Facility: [facility] Address: [address] [place] [address] Performed By: #### 1 91239, 20131-2 #### [facility] CLIA [id number] [address] STATES OF [facility] Urea nitrogen [Mass/Vol] 17 mg/dL Normal 9-24 [facility] Comment on above: Order Comment: Speci men Type: BLOOD SPECIMEN Ordering Facility: [facility] Address: [address] [place] [address] Performed By: #### 1 91239, 61915-4 #### [facility] CLIA [id number] [address] [place] CBC panel Auto (Bld)on 03-01 Erythrocyte distribution width (RBC) [Ratio] 12.3 % Normal 11.5-15.0 [facility] Comment on above: Order Comment: Speci men Type: BLOOD SPECIMEN Ordering Facility: [facility] Address: [address] [place] [address] Performed By: #### 5 8410-2 #### [facility] CLIA [id number] [address] [place] Hematocrit (Bld) [Volume fraction] 41.8 % Normal 39.0-51.0 [facility] Comment on above: Order Comment: Speci men Type: BLOOD SPECIMEN Ordering Facility: [facility] Address: [address] [place] [address] Performed By: #### 5 8410-2 #### [facility] CLIA [id number] [address] [facility] Hemoglobin (Bld) [Mass/Vol] 14.3 g/dL Normal 13.0-17.0 [facility] Comment on above: Order Comment: Speci men Type: BLOOD SPECIMEN Ordering Facility: [facility] Address: [address] [place] [address] Performed By: #### 5 8410-2 #### [facility] CLIA [id number] [address] [facility] MCH (RBC) [Entitic mass] 31.1 pg Normal 26.0-34.0 [facility] Comment on above: Order Comment: Speci men Type: BLOOD SPECIMEN Ordering Facility: [facility] Address: [address] [place] [address] Performed By: #### 5 8410-2 #### [facility] CLIA [id number] [address] [facility] MCHC (RBC) [Mass/Vol] 34.2 g/dL Normal 30.5-36.0 [facility] Comment on above: Order Comment: Speci men Type: BLOOD SPECIMEN Ordering Facility: [facility] Address: [address] [place] [address] Performed By: #### 5 8410-2 #### [facility] CLIA [id number] [address] [place] MCV (RBC) [Entitic vol] 90.9 fL Normal 80.0-100.0 [facility] Comment on above: Order Comment: Speci men Type: BLOOD SPECIMEN Ordering Facility: [facility] Address: [address] [place] [address] Performed By: #### 5 8410-2 #### [facility] CLIA [id number] [address] [place] Nucleated RBC (Bld) [#/Vol] 10*3/uL Normal <0.01 [facility] Comment on above: Order Comment: Speci men Type: BLOOD SPECIMEN Ordering Facility: [facility] Address: [address] [place] [address] Performed By: #### 5 8410-2 #### [facility] CLIA [id number] [address] [place] Platelet mean volume (Bld) [Entitic vol] 10.9 fL Normal 9.0-12.7 [facility] Comment on above: Order Comment: Speci men Type: BLOOD SPECIMEN Ordering Facility: [facility] Address: [address] [place] [address] Performed By: #### 5 8410-2 #### [facility] CLIA [id number] [address] [place] Platelets (Bld) [#/Vol] 201 10*3/uL Normal 150-400 [facility] Comment on above: Order Comment: Speci men Type: BLOOD SPECIMEN Ordering Facility: [facility] Address: [address] [place] [address] Performed By: #### 5 8410-2 #### [facility] CLIA [id number] [address] [place] RBC (Bld) [#/Vol] 4.60 10*6/uL Normal 4.20-6.00 [facility] Comment on above: Order Comment: Speci men Type: BLOOD SPECIMEN Ordering Facility: [facility] Address: [address] [place] [address] Performed By: #### 5 8410-2 #### [facility] CLIA [id number] [address] [place] WBC (Bld) [#/Vol] 7.95 10*3/uL Normal 3.70-11.00 [facility] Comment on above: Order Comment: Speci men Type: BLOOD SPECIMEN Ordering Facility: [facility] Address: [address] [place] [address] [place] [address] Performed By: #### 5 8410-2 #### [facility] CLIA [id number] [address] [place] EKGon 03-01-2025 Electrocardiogram Ventricular Rate : 6 5 BPM Atrial Rate : 60 BPM P-R Interval : 256 ms QRS Duration : 92 ms Q-T Interval : 442 ms QTC Calculation(Bazett) : 459 ms Calculated P Condon : 38 degrees Calculated R Condon : 2 degrees Calculated T Condon : 45 degrees SINUS RHYTHM WITH MARKED SINUS ARRHYTHMIA WITH 1ST DEGREE A-V BLOCK NONSPECIFIC ST ABNORMALITY ABNORMAL ECG WHEN COMPARED WITH ECG OF 28-Feb-2025 11:14, PREMATURE ATRIAL COMPLEXES ARE NO LONGER PRESENT Confirmed by MD HOPPER VINAY ([id number]) on 03/02/2025 6:13:12 PM NAME : ELSA PALACIO PID : [id number] : 1940 Gender : Male Race : ORD : Procedure Date : Mar 01 2025 12:55:06 Edit Date : Mar 02 2025 18:13:17 Diagnosis: SINUS RHYTHM WITH MARKED SINUS ARRHYTHMIA WITH 1ST DEGREE A-V BLOCK NONSPECIFIC ST ABNORMALITY ABNORMAL ECG WHEN COMPARED WITH ECG OF 28-Feb-2025 11:14, PREMATURE ATRIAL COMPLEXES ARE NO LONGER PRESENT Confirmed by MD HOPPER VINAY ([id number]) on 03/02/2025 6:13:12 PM Test Reason : Location : [address] : [place] [address] Overread By : MD HOPPER VINAY Edited By : MD HOPPER VINAY Referred By : HSAWN CHAU Acquired by : ROBERTO TRUJILLO [facility] HIGH SENSITIVITY TROPONIN To n 03-01-2025 Troponin T.cardiac High sensitivity method [Mass/Vol] 462 ng/L High <12 [facility] Comment on above: Order Comment: Speci men Type: BLOOD SPECIMEN Ordering Facility: [facility] Address: [address] [place] [address] Performed By: #### 3 016-3, 36084-0, HSTNT, 10170-0, 68424-8, 68049-8 #### [facility] CLIA [id number] [address] [place] Magnesium SerPl-mCncon 03-01 Magnesium [Mass/Vol] 1.8 mg/dL Normal 1.7-2.3 [facility] Comment on above: Order Comment: Speci men Type: BLOOD SPECIMEN Ordering Facility: [facility] Address: [address] [place] [address] Performed By: #### 1 9123-9, 41399-1 #### [facility] CLIA [id number] [address] [facility] NURSING PROGon 03-01-2025 NURSING PROG HNO ID: [id number] Author: DALILA BILLY, ANIRUDH Service: Nursing Author Type: Registered Nurse Type: Nursing Progress Note Filed: 03/01/2025 15:00 Note Text: Patient complaining of 2/10 sharp chest pain. Blood pressure is 155/78, heart rate is 57. Omari Heaton MD made aware of situation. 12 lead EKG obtained, nitro x1 dose given, and troponin drawn. Chest pain relieved after 1 dose of nitro. Normal [facility] TYPE + SCREENon 03-01-2025 ABO B Normal [facility] Comment on above: Order Comment: Speci men Type: BLOOD SPECIMEN Ordering Facility: [facility] Address: [address] [place] [address] Performed By: #### 3 016-3, 20346-9, HSTNT, 30473-0, 97136-8, 37138-8 #### [facility] CLIA [id number] [address] [place] Rh Nom (Bld) Positive Normal [facility] Comment on above: Order Comment: Speci men Type: BLOOD SPECIMEN Ordering Facility: [facility] Address: [address] [place] [address] Performed By: #### 3 016-3, 36051-7, HSTNT, 79746-0, 44067-0, 45831-5 #### [facility] CLIA [id number] [address] [place] TYPE AND SCREEN EXPIRATION 03/04/2025 23:59 Normal [facility] Comment on above: Order Comment: Speci men Type: BLOOD SPECIMEN Ordering Facility: [facility] Address: [address] [place], [place] [address] Performed By: #### 3 016-3, 10137-8, HSTNT, 82411-5, 13574-7, 68294-6 #### [facility] CLIA [id number] 1 [place] [address] [place] XR CHEST 1V FRONTALon 2024 XR CHEST 1V FRONTAL * * *Final Report* * * DATE OF EXAM: Mar 01 2025 3:59AM AKX 5290 - XR CHEST 1V FRONTAL / PROCEDURE REASON: Other * * * * Physician Interpretation * * * * EXAMINATION: CHEST RADIOGRAPH (SINGLE VIEW AP OR PA) CLINICAL HISTORY: Other, pre-op cxr MQ: XC1_5 Comparison: 08/06/2011 RESULT: Lines, tubes, and devices: monitor car operator leads. Lungs and pleura: No consolidation. No lung mass. No pleural effusion. Cardiomediastinal silhouette: Widening of the superior mediastinum most likely due to tortuous brachiocephalic vessels. Stable. Other: None. IMPRESSION: No acute radiographic abnormality. Fire Extinguisher Tester: PSCB Transcribe Date/Time: Mar 01 2025 6:53A Dictated by : NEIL CARTER MD This examination was interpreted and the report reviewed and electronically signed by: NEIL CARTER MD on Mar 01 2025 6:55AM EST [id number] Normal [facility] aPTT PPPon 03-01-2025 aPTT Coag (PPP) [Time] 61.7 s High 23.0-32.4 [facility] Comment on above: Order Comment: Sharon shaw Type: BLOOD SPECIMEN Ordering Facility: [facility] Address: [address] [place], [place] [address] Performed By: #### 3 016-3, 67796-9, HSTNT, 77646-0, 34931-1, 17361-8 #### [facility] CLIA [id number] 1 [place] [address] [place] Basic metabolic 2000 panelon 02-28-2025 Anion gap [Moles/Vol] 11 mmol/L Normal 8-15 [facility] Comment on above: Order Comment: Speci men Type: BLOOD SPECIMEN Ordering Facility: [facility] Address: [address] [place] [address] Performed By: #### 3 016-3, 39206-8, HSTNT, 56197-3, 83280-5, 90725-6 #### [facility] CLIA [id number] 1 [place] [address] [place] Calcium [Mass/Vol] 9.0 mg/dL Normal 8.5-10.2 [facility] Comment on above: Order Comment: Speci men Type: BLOOD SPECIMEN Ordering Facility: [facility] Address: [address] [place] [address] Performed By: #### 3 016-3, 33247-8, HSTNT, 13539-9, 00307-1, 84331-1 #### [facility] CLIA [id number] 1 [place] [address] [place] Chloride [Moles/Vol] 101 mmol/L Normal 98-107 [facility] Comment on above: Order Comment: Speci men Type: BLOOD SPECIMEN Ordering Facility: [facility] Address: [address] [place] [address] Performed By: #### 3 016-3, 87357-4, HSTNT, 11246-8, 69723-2, 46194-8 #### [facility] CLIA [id number] 1 [place] [address] [place] CO2 [Moles/Vol] 22 mmol/L Normal 22-30 [facility] Comment on above: Order Comment: Speci men Type: BLOOD SPECIMEN Ordering Facility: [facility] Address: [address] [place] [address] Performed By: #### 3 016-3, 27233-8, HSTNT, 14709-5, 75807-1, 27648-5 #### [facility] CLIA [id number] 1 [place] [address] [place] Creatinine [Mass/Vol] 1.05 mg/dL Normal 0.73-1.22 [facility] Comment on above: Order Comment: Sharon shaw Type: BLOOD SPECIMEN Ordering Facility: [facility] Address: [address] [place] [address] Performed By: #### 3 016-3, 45188-7, HSTNT, 61299-7, 76439-1, 96282-0 #### [facility] CLIA [id number] [address] [place] eGFRcr SerPlBld CKD-EPI 2020 70 mL/min/1.73m??? Normal >=60 [facility] Comment on above: Order Comment: [facility] Type: BLOOD SPECIMEN Ordering Facility: [facility] Address: [address] [place] [address] Result Comment: Monie mated Glomerular Filtration Rate (eGFR) is calculated using the 2020 CKD-EPI creatinine equation. This equation utilizes serum creatinine, sex, and age as parameters. The creatinine assay has traceable calibration to isotope dilution-mass spectrometry. Refer to KDIGO guidelines for clinical interpretation. In patients with unstable renal function, e.g. those with acute kidney injury, the eGFR may not accurately reflect actual GFR. Performed By: #### 3 016-3, 13113-1, HSTNT, 71284-6, 40323-1, 91795-3 #### [facility] CLIA [id number] 1 [place] [address] [place] Glucose [Mass/Vol] 110 mg/dL High 74-99 [facility] Comment on above: Order Comment: Sharon sahw Type: BLOOD SPECIMEN Ordering Facility: [facility] Address: [address] [place] [address] Result Comment: The [place] [employer] (ADA) provides guidance for cutoff values for fasting glucose and random glucose. The ADA defines fasting as no caloric intake for at least 8 hours. Fasting plasma glucose results between 100 to 125 mg/dL indicate increased risk for diabetes (prediabetes). Fasting plasma glucose results greater than or equal to 126 mg/dL meet the criteria for diagnosis of diabetes. In the absence of unequivocal hyperglycemia, results should be confirmed by repeat testing. In a patient with classic symptoms of hyperglycemia or hyperglycemic crisis, random plasma glucose results greater than or equal to 200 mg/dL meet the criteria for diagnosis of diabetes. Reference: Standards of Medical Care in Diabetes 2016, [place] [employer]. Diabetes Care. 2016.39(Suppl 1). Performed By: #### 3 016-3, 93950-0, HSTNT, 89536-2, 34856-2, 21414-4 #### [facility] CLIA [id number] [address] [place] Potassium [Moles/Vol] 4.2 mmol/L Normal 3.7-5.1 [facility] Comment on above: Order Comment: Speci men Type: BLOOD SPECIMEN Ordering Facility: [facility] Address: [address] [place] [address] Performed By: #### 3 016-3, 10338-1, HSTNT, 45006-9, 30816-1, 39965-1 #### [facility] CLIA [id number] [address] STATES OF [facility] Sodium [Moles/Vol] 134 mmol/L Low 136-144 [facility] Comment on above: Order Comment: Speci men Type: BLOOD SPECIMEN Ordering Facility: [facility] Address: [address] [place] [address] Performed By: #### 3 016-3, 57968-5, HSTNT, 98532-7, 43477-2, 31847-1 #### [facility] CLIA [id number] [address] [place] Urea nitrogen [Mass/Vol] 21 mg/dL Normal 9-24 [facility] Comment on above: Order Comment: Speci men Type: BLOOD SPECIMEN Ordering Facility: [facility] Address: [address] [place] [address] Performed By: #### 3 016-3, 76875-1, HSTNT, 12211-8, 08421-3, 27949-1 #### [facility] CLIA [id number] [address] [place] CBC panel Auto (Bld)on 02-28 Erythrocyte distribution width (RBC) [Ratio] 12.2 % Normal 11.5-15.0 [facility] Comment on above: Order Comment: Speci men Type: BLOOD SPECIMEN Ordering Facility: [facility] Address: [address] [place] [address] Performed By: #### 3 016-3, 03137-8, HSTNT, 86890-1, 71943-3, 25666-0 #### [facility] CLIA [id number] [address] OF [facility] Hematocrit (Bld) [Volume fraction] 41.4 % Normal 39.0-51.0 [facility] Comment on above: Order Comment: Speci men Type: BLOOD SPECIMEN Ordering Facility: [facility] Address: [address] [place] [address] Performed By: #### 3 016-3, 85961-4, HSTNT, 78922-0, 95485-6, 23599-0 #### [facility] CLIA [id number] [address] OF [facility] Hemoglobin (Bld) [Mass/Vol] 14.2 g/dL Normal 13.0-17.0 [facility] Comment on above: Order Comment: Speci men Type: BLOOD SPECIMEN Ordering Facility: [facility] Address: [address] [place] [address] Performed By: #### 3 016-3, 85844-1, HSTNT, 06977-3, 56591-9, 27690-8 #### [facility] CLIA [id number] [address] [place] [address] OF [facility] MCH (RBC) [Entitic mass] 31.1 pg Normal 26.0-34.0 [facility] Comment on above: Order Comment: Speci men Type: BLOOD SPECIMEN Ordering Facility: [facility] Address: [address] [place] [address] Performed By: #### 3 016-3, 18472-6, HSTNT, 04846-0, 82050-3, 20515-9 #### [facility] CLIA [id number] [address] MCHC (RBC) [Mass/Vol] 34.3 g/dL Normal 30.5-36.0 [facility] Comment on above: Order Comment: Speci men Type: BLOOD SPECIMEN Ordering Facility: [facility] Address: [address] [place] [address] Performed By: #### 3 016-3, 06876-8, HSTNT, 72639-7, 67525-5, 46006-1 #### [facility] CLIA [id number] [address] MCV (RBC) [Entitic vol] 90.6 fL Normal 80.0-100.0 [facility] Comment on above: Order Comment: Speci men Type: BLOOD SPECIMEN Ordering Facility: [facility] Address: [address] [place] [address] Performed By: #### 3 016-3, 98104-1, HSTNT, 11639-6, 98673-3, 83620-5 #### [facility] CLIA [id number] [address] Nucleated RBC (Bld) [#/Vol] 10*3/uL Normal <0.01 [facility] Comment on above: Order Comment: Speci men Type: BLOOD SPECIMEN Ordering Facility: [facility] Address: [address] [place] [address] Performed By: #### 3 016-3, 56632-6, HSTNT, 01997-7, 05597-3, 64743-0 #### [facility] CLIA [id number] [address] [place] Platelet mean volume (Bld) [Entitic vol] 10.2 fL Normal 9.0-12.7 [facility] Comment on above: Order Comment: Speci men Type: BLOOD SPECIMEN Ordering Facility: [facility] Address: [address] [place] [address] Performed By: #### 3 016-3, 69613-0, HSTNT, 82203-3, 20104-9, 32246-1 #### [facility] CLIA [id number] [address] [place] Platelets (Bld) [#/Vol] 197 10*3/uL Normal 150-400 [facility] Comment on above: Order Comment: Speci men Type: BLOOD SPECIMEN Ordering Facility: [facility] Address: [address] [place] [address] Performed By: #### 3 016-3, 28978-8, HSTNT, 98311-5, 94232-6, 30782-9 #### [facility] CLIA [id number] [address] [place] RBC (Bld) [#/Vol] 4.57 10*6/uL Normal 4.20-6.00 [facility] Comment on above: Order Comment: Speci men Type: BLOOD SPECIMEN Ordering Facility: [facility] Address: [address] [place] [address] Performed By: #### 3 016-3, 19126-0, HSTNT, 17208-5, 92187-1, 38035-4 #### [facility] CLIA [id number] [address] [place] WBC (Bld) [#/Vol] 8.49 10*3/uL Normal 3.70-11.00 [facility] Comment on above: Order Comment: Speci men Type: BLOOD SPECIMEN Ordering Facility: [facility] Address: [address] [place] [address] Performed By: #### 3 016-3, 12339-6, HSTNT, 14062-1, 57689-2, 87727-7 #### [facility] CLIA [id number] [address] CONSULTon 02-28-2025 CONSULT HNO ID: [id number] Author: HARRISON ARTIS MD Service: Electrophysiology Author Type: Physician Type: Consults Filed: 02/28/2025 12:18 Note Text: CONSULT: CARDIOLOGY SERVICE [facility] Electrophysiology (EP) SERVICE DATE: 02/28/2025 SERVICE TIME: 12:18 PM CONSULTING PHYSICIAN: Harrison Artis PCP: Екатерина Taveras MD ATTENDING: Omari Heaton MD REASON FOR CONSULT: Arrhythmias Subjective CHIEF COMPLAINT: CABG (coronary artery bypass graft) planned [Z78.9] HISTORY OF PRESENT ILLNESS: Mr. Palacio is a 85 year old male who presents as transfer from [facility] for consideration of CABG, evidently scheduled for tomorrow Saturday03/01/2025. No heart history, he was mowing the grass last week and was experiencing exertional shortness of breath, perhaps some right sided chest discomfort. He was admitted to [facility] and diagnosed with NSTEMI. Cardiac catheterization revealed severe 3-vessel CAD. Transferred to [facility] for consideration of CABG. He was noted by EKGs and monitoring to have irregular heart rhythm and intermittent bradycardia, there was concern even by general cardiology for the presence of atrial fibrillation (not present to my review, see below). Mr. Palacio is presently comfortable in bed, no distress. Denies chest pain, shortness of breath, severe lightheadedness, near syncope or syncope. 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 PAF (paroxysmal atrial fibrillation) ([facility]) 02/25/2025 Primary hypertension 10/13/2024 PAST SURGICAL HISTORY Procedure Laterality Date ARTHROSCOPY KNEE DIAGNOSTIC W/WO SYNOVIAL BX SPX ~1979 Arthroscopy, left knee COLONOSCOPY AND POLYPECTOMY 06/18/2001,04/10/00 Colonoscopy COLONOSCOPY FLX DX W/COLLJ SPEC WHEN PFRMD 07/09/2007 repeat due 2012 COLONOSCOPY FLX DX W/COLLJ SPEC WHEN PFRMD 05/27/2012 no polyps, repeat due 2017 COLONOSCOPY FLX DX W/COLLJ SPEC WHEN PFRMD 01/20/2018 Colonoscopy COLONOSCOPY W/BIOPSY SINGLE/MULTIPLE 05/10/2005 LEFT HEART CATH,PERCUTANEOUS 02/24/2025 severe 3-vessel CAD; [facility] RAD RESECT TUMOR SOFT TISS NECK/ANT THORAX <5CM ~1969 BREAST TUMOR, left RELEASE PALM CONTRACTURE 01/15/2012 Right hand needle aponeurotomy FAMILY HISTORY Problem Relation Age of Onset other (CHF) Mother OLD AGE Colon Cancer Father age 76 +/- SOCIAL HISTORY[1] Prior to Admission Medications Prescriptions Last Dose Informant Patient Reported? Taking? MELATONIN 3 MG TAB 02/24/2025 Yes Yes Sig: Take 6 mg by mouth daily at bedtime. docusate sodium(LOPEZ LIQUI-GELS 100 MG CAP) 02/25/2025 Morning Yes Yes Sig: Take by mouth once daily. finasteride (PROSCAR) 5 mg tablet 02/25/2025 Morning No Yes Sig: Take 1 tablet by mouth once daily. levothyroxine (SYNTHROID) 100 mcg tablet 02/25/2025 Morning No Yes Sig: Take 1 tablet by mouth once daily. losartan (COZAAR) 100 mg tablet 02/25/2025 Morning No Yes Sig: Take 1 tablet by mouth once daily. tamsulosin (FLOMAX) 0.4 mg 02/25/2025 Morning No Yes Sig: Take 2 capsules by mouth once daily. therapeutic multivitamin ORAL tablet 02/25/2025 Morning Yes Yes Sig: Take by mouth once daily. verapamil SR (CALAN SR) 120 mg CR tablet 02/25/2025 Morning No Yes Sig: Take 1 tablet by mouth once daily. Facility-Administered Medications: None Current Facility-Administered Medications Medication Dose Route Frequency heparin iv infusion 25,000 units in NaCl 0.45% 250 mL LOW DOSE/ACS NOMOGRAM 0-3,000 Units/hr INTRAVENOUS CONTINUOUS And heparin RATE CHANGE bolus 1,000-4,000 Units for subtherapeutic PTTAC results 1,000-4,000 Units INTRAVENOUS PRN finasteride 5 mg tab(s) (PROSCAR) 5 mg ORAL DAILY levothyroxine 100 mcg tab(s) (SYNTHROID) 100 mcg ORAL DAILY tamsulosin 0.8 mg cap(s) (FLOMAX) 0.8 mg ORAL DAILY melatonin 6 mg tab(s) 6 mg ORAL AT BEDTIME NaCl 0.9% iv flush bag 20 mL INTRAVENOUS PRN ondansetron 4 mg tab(s) (ZOFRAN) 4 mg ORAL q 6 H PRN Or ondansetron (PF) 4 mg injection (ZOFRAN) 4 mg INTRAVENOUS q 6 H PRN acetaminophen 1,000 mg tab(s) (TYLENOL) 1,000 mg ORAL q 6 H PRN melatonin 1 mg tab(s) 1 mg ORAL DAILY PRN atorvastatin 40 mg tab(s) (LIPITOR) 40 mg ORAL AT BEDTIME therapeutic multivitamin-minerals tablet (THERA-M PLUS) 1 tablet ORAL DAILY aspirin 81 mg chewable tab(s) 81 mg ORAL DAILY sodium chloride 0.9 % (flush) 2-10 mL (BD POSIFLUSH) 2-10 mL INTRAVENOUS DIRECTED PRN And perflutren lipid microspheres 1.1 mg/mL 1.3 mL injection (DEFINITY) 1.3 mL INTRAVENOUS DIRECTED PRN mupirocin 2 % 0.5 g nasal ointment (BACTROBAN) 0. (more content not included)... Normal [facility] ECG COMPLETEon 02-28-2025 ECG COMPLETE Ventricular Rate : 7 6 BPM Atrial Rate : 102 BPM QRS Duration : 92 ms Q-T Interval : 420 ms QTC Calculation(Bazett) : 472 ms Calculated P Condon : 26 degrees Calculated R Condon : 1 degrees Calculated T Condon : 62 degrees SINUS TACHYCARDIA WITH BLOCKED PREMATURE ATRIAL COMPLEXES OTHERWISE NORMAL ECG WHEN COMPARED WITH ECG OF 25-Feb-2025 14:55, SINUS RHYTHM HAS REPLACED ATRIAL FIBRILLATION QUESTIONABLE CHANGE IN QRS AXIS T WAVE INVERSION NO LONGER EVIDENT IN INFERIOR LEADS Confirmed by MD HOPPER VINAY ([id number]) on 03/01/2025 2:33:43 PM NAME : ELSA PALACIO PID : [id number] : 1940 Gender : Male Race : ORD : [id number] Procedure Date : Feb 28 2025 11:14:35 Edit Date : Mar 01 2025 14:33:46 Diagnosis: SINUS TACHYCARDIA WITH BLOCKED PREMATURE ATRIAL COMPLEXES OTHERWISE NORMAL ECG WHEN COMPARED WITH ECG OF 25-Feb-2025 14:55, SINUS RHYTHM HAS REPLACED ATRIAL FIBRILLATION QUESTIONABLE CHANGE IN QRS AXIS T WAVE INVERSION NO LONGER EVIDENT IN INFERIOR LEADS Confirmed by MD HOPPER VINAY ([id number]) on 03/01/2025 2:33:43 PM Test Reason : Arrhythmia Location : 200 : [facility]101 Overread By : MD HOPPER VINAY Edited By : MD HOPPER VINAY Referred By : SHAWN CHAU Acquired by : ADIN ISBELL Normal [facility] Magnesium SerPl-mCncon 11-09 -2025 Magnesium [Mass/Vol] 1.8 mg/dL Normal 1.7-2.3 [facility] Comment on above: Order Comment: Speci men Type: BLOOD SPECIMEN Ordering Facility: [facility] Address: [address] [place] [address] Performed By: #### 3 016-3, 71755-2, HSTNT, 19399-8, 37413-6, 17040-9 #### [facility] CLIA [id number] [address] [place] aPTT PPPon 02-28-2025 aPTT Coag (PPP) [Time] 63.2 s High 23.0-32.4 [facility] Comment on above: Order Comment: Speci men Type: BLOOD SPECIMEN Ordering Facility: [facility] Address: [address] [place] [address] Performed By: #### 3 016-3, 43098-6, HSTNT, 64532-3, 12376-0, 25052-4 #### [facility] CLIA [id number] [address] [place] aPTT PPPon 02-27-2025 aPTT Coag (PPP) [Time] 60.9 s High 23.0-32.4 [facility] Comment on above: Order Comment: Speci men Type: BLOOD SPECIMEN Ordering Facility: [facility] Address: [address] [place] [address] Performed By: #### 1 4979-9 #### [facility] CLIA [id number] 1 [place] [address] [place] Basic metabolic 2000 panelon 02-26-2025 Anion gap [Moles/Vol] 10 mmol/L Normal 8-15 [facility] Comment on above: Order Comment: Speci men Type: BLOOD SPECIMEN Ordering Facility: [facility] Address: [address] [place] [address] Performed By: #### 3 016-3, 79804-6, HSTNT, 27459-4, 38017-5, 47770-7 #### [facility] CLIA [id number] 1 [place] [address] [place] Calcium [Mass/Vol] 8.9 mg/dL Normal 8.5-10.2 [facility] Comment on above: Order Comment: Speci men Type: BLOOD SPECIMEN Ordering Facility: [facility] Address: [address] [place] [address] Performed By: #### 3 016-3, 09706-4, HSTNT, 23634-5, 05549-7, 41180-0 #### [facility] CLIA [id number] 1 [place] [address] [place] Chloride [Moles/Vol] 103 mmol/L Normal 98-107 [facility] Comment on above: Order Comment: Speci men Type: BLOOD SPECIMEN Ordering Facility: [facility] Address: [address] [place] [address] Performed By: #### 3 016-3, 70892-7, HSTNT, 82398-1, 12979-4, 16079-5 #### [facility] CLIA [id number] [address] [place] [address] [place] CO2 [Moles/Vol] 21 mmol/L Low 22-30 [facility] Comment on above: Order Comment: Speci men Type: BLOOD SPECIMEN Ordering Facility: [facility] Address: [address] [place] [address] Performed By: #### 3 016-3, 97607-4, HSTNT, 18127-1, 45468-1, 15910-2 #### [facility] CLIA [id number] [address] [place] [address] [place] Creatinine [Mass/Vol] 1.13 mg/dL Normal 0.73-1.22 [facility] Comment on above: Order Comment: Speci men Type: BLOOD SPECIMEN Ordering Facility: [facility] Address: [address] [place] [address] Performed By: #### 3 016-3, 89737-9, HSTNT, 11225-0, 46281-2, 81060-9 #### [facility] CLIA [id number] [address] [place] eGFRcr SerPlBld CKD-EPI 2020 64 mL/min/1.73m??? Normal >=60 [facility] Comment on above: Order Comment: Sharon colin Type: BLOOD SPECIMEN Ordering Facility: [facility] Address: [address] [place] [address] Result Comment: Monie mated Glomerular Filtration Rate (eGFR) is calculated using the 2020 CKD-EPI creatinine equation. This equation utilizes serum creatinine, sex, and age as parameters. The creatinine assay has traceable calibration to isotope dilution-mass spectrometry. Refer to KDIGO guidelines for clinical interpretation. In patients with unstable renal function, e.g. those with acute kidney injury, the eGFR may not accurately reflect actual GFR. Performed By: #### 3 016-3, 39026-7, HSTNT, 53765-8, 53527-3, 91884-5 #### [facility] CLIA [id number] [address] [place] Glucose [Mass/Vol] 118 mg/dL High 74-99 [facility] Comment on above: Order Comment: Sharon shaw Type: BLOOD SPECIMEN Ordering Facility: [facility] Address: [address] [place] [address] Result Comment: The [place] Diabetes [employer] (ADA) provides guidance for cutoff values for fasting glucose and random glucose. The ADA defines fasting as no caloric intake for at least 8 hours. Fasting plasma glucose results between 100 to 125 mg/dL indicate increased risk for diabetes (prediabetes). Fasting plasma glucose results greater than or equal to 126 mg/dL meet the criteria for diagnosis of diabetes. In the absence of unequivocal hyperglycemia, results should be confirmed by repeat testing. In a patient with classic symptoms of hyperglycemia or hyperglycemic crisis, random plasma glucose results greater than or equal to 200 mg/dL meet the criteria for diagnosis of diabetes. Reference: Standards of Medical Care in Diabetes 2016, [place] [employer]. Diabetes Care. 2016.39(Suppl 1). Performed By: #### 3 016-3, 15900-8, HSTNT, 94816-9, 06748-5, 58377-8 #### [facility] CLIA [id number] [address] [place] [address] [place] Potassium [Moles/Vol] 4.1 mmol/L Normal 3.7-5.1 [facility] Comment on above: Order Comment: Speci men Type: BLOOD SPECIMEN Ordering Facility: [facility] Address: [address] [place] [address] Performed By: #### 3 016-3, 06767-7, HSTNT, 82282-3, 25303-1, 40380-2 #### [facility] CLIA [id number] [address] [place] [address] [place] Sodium [Moles/Vol] 134 mmol/L Low 136-144 [facility] Comment on above: Order Comment: Speci men Type: BLOOD SPECIMEN Ordering Facility: [facility] Address: [address] [place] [address] Performed By: #### 3 016-3, 91455-7, HSTNT, 82489-2, 31468-4, 20172-7 #### [facility] CLIA [id number] [address] [place] [address] [place] Urea nitrogen [Mass/Vol] 19 mg/dL Normal 9-24 [facility] Comment on above: Order Comment: Speci men Type: BLOOD SPECIMEN Ordering Facility: [facility] Address: [address] [place] [address] Performed By: #### 3 016-3, 30933-6, HSTNT, 90971-7, 72953-6, 46917-3 #### [facility] CLIA [id number] [address] [place] [address] [place] CBC panel Auto (Bld)on 02-26 Erythrocyte distribution width (RBC) [Ratio] 12.3 % Normal 11.5-15.0 [facility] Comment on above: Order Comment: Speci men Type: BLOOD SPECIMEN Ordering Facility: [facility] Address: [address] [place] [address] Performed By: #### 3 016-3, 19273-8, HSTNT, 61509-7, 04037-0, 24868-5 #### [facility] CLIA [id number] [address] [place] Hematocrit (Bld) [Volume fraction] 39.7 % Normal 39.0-51.0 [facility] Comment on above: Order Comment: Speci men Type: BLOOD SPECIMEN Ordering Facility: [facility] Address: [address] [place] [address] Performed By: #### 3 016-3, 28235-0, HSTNT, 41385-8, 40680-1, 61256-7 #### [facility] CLIA [id number] [address] [place] Hemoglobin (Bld) [Mass/Vol] 13.3 g/dL Normal 13.0-17.0 [facility] Comment on above: Order Comment: Speci men Type: BLOOD SPECIMEN Ordering Facility: [facility] Address: [address] [place] [address] Performed By: #### 3 016-3, 70453-4, HSTNT, 86183-5, 90454-3, 67729-8 #### [facility] CLIA [id number] [address] STATES OF [facility] MCH (RBC) [Entitic mass] 30.5 pg Normal 26.0-34.0 [facility] Comment on above: Order Comment: Speci men Type: BLOOD SPECIMEN Ordering Facility: [facility] Address: [address] [place] [address] Performed By: #### 3 016-3, 89087-2, HSTNT, 05358-5, 88646-0, 99125-4 #### [facility] CLIA [id number] [address] [place] MCHC (RBC) [Mass/Vol] 33.5 g/dL Normal 30.5-36.0 [facility] Comment on above: Order Comment: Speci men Type: BLOOD SPECIMEN Ordering Facility: [facility] Address: [address] [place] [address] Performed By: #### 3 016-3, 45794-5, HSTNT, 30152-8, 27600-1, 37880-4 #### [facility] CLIA [id number] [address] MCV (RBC) [Entitic vol] 91.1 fL Normal 80.0-100.0 [facility] Comment on above: Order Comment: Speci men Type: BLOOD SPECIMEN Ordering Facility: [facility] Address: [address] [place] [address] Performed By: #### 3 016-3, 72879-1, HSTNT, 66666-9, 95254-5, 63076-9 #### [facility] CLIA [id number] [address] Nucleated RBC (Bld) [#/Vol] 10*3/uL Normal <0.01 [facility] Comment on above: Order Comment: Speci men Type: BLOOD SPECIMEN Ordering Facility: [facility] Address: [address] [place] [address] Performed By: #### 3 016-3, 08030-7, HSTNT, 73930-4, 21696-2, 59939-0 #### [facility] CLIA [id number] [address] [place] Platelet mean volume (Bld) [Entitic vol] 10.0 fL Normal 9.0-12.7 [facility] Comment on above: Order Comment: Speci men Type: BLOOD SPECIMEN Ordering Facility: [facility] Address: [address] [place] [address] Performed By: #### 3 016-3, 52982-3, HSTNT, 64622-1, 26918-0, 46311-8 #### [facility] CLIA [id number] [address] [place] Platelets (Bld) [#/Vol] 196 10*3/uL Normal 150-400 [facility] Comment on above: Order Comment: Speci men Type: BLOOD SPECIMEN Ordering Facility: [facility] Address: [address] [place] [address] Performed By: #### 3 016-3, 98068-4, HSTNT, 32967-9, 92470-0, 99016-0 #### [facility] CLIA [id number] [address] OF [facility] RBC (Bld) [#/Vol] 4.36 10*6/uL Normal 4.20-6.00 [facility] Comment on above: Order Comment: Speci men Type: BLOOD SPECIMEN Ordering Facility: [facility] Address: [address] [place] [address] Performed By: #### 3 016-3, 57323-4, HSTNT, 71163-9, 76709-7, 77370-9 #### [facility] CLIA [id number] [address] WBC (Bld) [#/Vol] 8.96 10*3/uL Normal 3.70-11.00 [facility] Comment on above: Order Comment: Speci men Type: BLOOD SPECIMEN Ordering Facility: [facility] Address: [address] [place] [address] Performed By: #### 3 016-3, 29436-4, HSTNT, 30351-0, 82749-4, 03095-4 #### [facility] CLIA [id number] [address] ECHOon 02-26-2025 Echocardiography Echocardiography Report: Transthoracic Echo [facility] Date of service: 02/26/2025 7:28:40 AM HOSPITAL Ordering physician: RITA HENLEY Exam indication: Chest Pain Technologist: Valeria Sim Interpreting physician: Iva Bach MD PATIENT: Name: MR. ELSA PALACIO : 1940 Age: 85 years Gender: M History of hypertension. Primary rhythm: sinus. Height: 177.80 cm BSA: 1.97 m Weight: 78.20 kg BMI: 24.7 kg/m Heart rate 75 bpm Blood pressure 111/53 mmHg Color Doppler was utilized to interrogate the cardiac valves assessed and spectral Doppler was utilized to determine the flow velocities and pressure gradients reported in this exam. MEASUREMENTS: Value Indexed Normal Max aortic dimension 3.8 cm Ao < 3.8 Left atrial volume 85 ml (biplane A-L) 43 ml/m Yonathan <= 34 LV ID (diastole) 4.5 cm (2D) 2.27 cm/m LV ID (systole) 2.8 cm (2D) 1.44 cm/m IVS, leaflet tips 1.1 cm (2D) Posterior wall thickness 1.0 cm (2D) Left ventricular mass 159 g (2D) 81 g/m LV stroke volume 73 ml (2D biplane) LV end diastolic volume 126 ml (2D biplane) 64.2 ml/m 34<=EDVi<75 LV end systolic volume 53 ml (2D biplane) 26.8 ml/m Ejection Fraction 58 % (2D biplane) EF > 52 FINDINGS: LEFT VENTRICLE The left ventricle is normal in size. There is no left ventricular hypertrophy. Left ventricular systolic function is normal globally. Indeterminate left ventricular diastolic function due to inconsistent or technically suboptimal data. Mitral annular lateral E/e': 8.7. Mitral annular septal E/e': 15.6. Wall Motion: All scored segments are normal. RIGHT VENTRICLE The right ventricle is normal in size. Right ventricular systolic function is normal. RV systolic tissue Doppler velocity is 11.0 cm/s. Tricuspid annular displacement is 2.2 cm. Estimated right ventricular systolic pressure is 23 mmHg consistent with normal pulmonary artery pressures. Estimated right atrial pressure is 3 mmHg based on IVC assessment. LEFT ATRIUM The left atrial cavity is moderately dilated. RIGHT ATRIUM The right atrial cavity is normal in size. Inferior Vena Cava: The inferior vena cava appears normal measuring 1.4 cm. The vessel decreases greater than 50 percent with inspiration. MITRAL VALVE There is mild (1+ - 2+) mitral valve regurgitation. There is mild thickening. Regurgitant orifice area (PISA) is 0.12 cm . The pressure half time is 69 msec. The peak mitral E/A ratio is 1.07. The average mitral E/e' ratio is 12.1. The mitral flow deceleration time is 236 msec. TRICUSPID VALVE The tricuspid valve leaflets are structurally normal. There is trace (trace - 1+) tricuspid valve regurgitation. AORTIC VALVE There is no aortic valve stenosis. There is trace (trace - 1+) aortic valve regurgitation. Tricuspid aortic valve. There is mild thickening. There is mild calcification. PULMONIC VALVE The pulmonic valve cusps are structurally normal. There is trace pulmonic valve regurgitation. AORTA The visualized aorta is borderline dilated. Measurements - Aortic valve annulus 2.5 cm. Sinus: 3.3 cm. Mid ascending aorta 3.8 cm. PULMONARY ARTERIES The pulmonary arteries are unseen or not interrogated. INTERATRIAL SEPTUM There is no evidence of intracardiac shunting as detected by Doppler. INTERVENTRICULAR SEPTUM There is no flow through the interventricular septum as detected by Doppler. PERICARDIUM There is a trivial pericardial effusion. There is an epicardial fat pad. CONCLUSIONS: - Exam indication: Chest Pain - The left ventricle is normal in size. There is no left ventricular hypertrophy. Left ventricular systolic function is normal. EF = 58 5% (2D biplane) Indeterminate left ventricular diastolic function due to inconsistent or technically suboptimal data. - The right ventricle is normal in size. Right ventricular systolic function is normal. - The left atrial cavity is moderately dilated. - No significant valve disease. - The visualized aorta is borderline dilated with a maximal dimension of 3.8 cm. - Exam was compared with the prior [facility] echocardiographic exam performed on 03/14/2020. No significant change noted when compared to report of prior study. * * * Final * * * CC [employer] Medical Image : [id number] amicsSISUID Normal [facility] aPTT PPPon 02-26-2025 aPTT Coag (PPP) [Time] 61.6 s High 23.0-32.4 [facility] Comment on above: Order Comment: Speci men Type: BLOOD SPECIMEN Ordering Facility: [facility] Address: [address] [place] [address] [place] [address] Performed By: #### 3 016-3, 50698-1, HSTNT, 17914-0, 27190-0, 58463-8 #### [facility] CLIA [id number] [address] [place] ALLIED HEALTHon 02-25-2025 ALLIED HEALTH HNO ID: [id number] Author: EMMY ZUNIGA RN Service: Cardiac Rehab Author Type: Registered Nurse Type: [facility] Filed: 02/25/2025 15:24 Note Text: CARDIAC REHAB 5 METER WALK TEST SERVICE DATE: 02/25/2025 SERVICE TIME: 1520 ASSESSMENT: 5 Meter Walk Test 5 Meter Walk Test Completed: Yes Trial 1 # of Seconds: 5.23 Trial 1 Assistive Device: IV Pole Trial 2 # of Seconds: 5.73 Trial 2 Assistive Device: IV Pole Trial 3 # of Seconds: 4.47 Trial 3 Assistive Device: IV Pole SIGNATURE: Emmy Zuniga RN PATIENT NAME: Elsa Palacio DATE: February 25, 2025 TIME: 3:24 PM PAGER/CONTACT #: [phone] [facility] HNO ID: [id number] Author: ARAMIS WISEMAN RT(R) Service: Radiology Author Type: Mechanic Type: [facility] Filed: 02/25/2025 13:30 Note Text: Radiology Service Progress Note PATIENT NAME: Elsa Palacio DATE OF SERVICE: February 25, 2025 TIME: 1:30 PM PATIENT IDENTITY VERIFICATION COMPLETED USING TWO (2) IDENTIFIERS: Name and Date of confirmed by patient verbally and Name and Date of confirmed by identification band. FALL SCREENING: Has the patient had 2 falls in the last year or 1 fall with injury or currently using an Ambulatory Assistive Device (Walker, Cane, Wheelchair, Crutches, etc.)? Inpatient: Screened on floor PATIENT GENDER DATA: Assigned male at PATIENT RELEVANT IMPLANT DATA REVIEWED: Not Applicable PATIENT PRESENTS WITH AN IMPLANTABLE OR ATTACHED REGISTERED NURSE MIDWIFE: No RADIOLOGY DEPARTMENT: CT; Exam(s) Completed: Chest. Anesthesia: No PERIPHERAL IV DATA: Not applicable SIGNED BY: RT Jacqueline(R) February 25, 2025 1:30 PM [facility] Basic metabolic 2000 panelon 02-25-2025 Anion gap [Moles/Vol] 10 mmol/L Normal 8-15 [facility] Comment on above: Order Comment: Speci men Type: BLOOD SPECIMEN Ordering Facility: [facility] Address: [address] [place] [address] Performed By: #### 3 016-3, 08082-1, HSTNT, 27795-2, 73880-4, 37970-4 #### [facility] CLIA [id number] 1 [place] [address] [place] Calcium [Mass/Vol] 8.9 mg/dL Normal 8.5-10.2 [facility] Comment on above: Order Comment: Speci men Type: BLOOD SPECIMEN Ordering Facility: [facility] Address: [address] [place] [address] Performed By: #### 3 016-3, 34448-4, HSTNT, 90598-2, 68800-8, 84539-9 #### [facility] CLIA [id number] 1 [place] [address] [place] Chloride [Moles/Vol] 103 mmol/L Normal 98-107 [facility] Comment on above: Order Comment: Speci men Type: BLOOD SPECIMEN Ordering Facility: [facility] Address: [address] [place] [address] Performed By: #### 3 016-3, 98710-7, HSTNT, 26735-6, 11570-1, 81611-6 #### [facility] CLIA [id number] 1 [place] [address] [place] CO2 [Moles/Vol] 22 mmol/L Normal 22-30 [facility] Comment on above: Order Comment: Speci men Type: BLOOD SPECIMEN Ordering Facility: [facility] Address: [address] [place] [address] Performed By: #### 3 016-3, 41757-9, HSTNT, 65434-6, 63953-2, 61212-6 #### [facility] CLIA [id number] 1 [place] [address] [place] Creatinine [Mass/Vol] 0.96 mg/dL Normal 0.73-1.22 [facility] Comment on above: Order Comment: Speci men Type: BLOOD SPECIMEN Ordering Facility: [facility] Address: [address] [place] [address] Performed By: #### 3 016-3, 91316-2, HSTNT, 10472-1, 23092-0, 00404-3 #### [facility] CLIA [id number] [address] [place] eGFRcr SerPlBld CKD-EPI 2020 77 mL/min/1.73m??? Normal >=60 [facility] Comment on above: Order Comment: Sharon shaw Type: BLOOD SPECIMEN Ordering Facility: [facility] Address: [address] [place] [address] Result Comment: Monie mated Glomerular Filtration Rate (eGFR) is calculated using the 2020 CKD-EPI creatinine equation. This equation utilizes serum creatinine, sex, and age as parameters. The creatinine assay has traceable calibration to isotope dilution-mass spectrometry. Refer to KDIGO guidelines for clinical interpretation. In patients with unstable renal function, e.g. those with acute kidney injury, the eGFR may not accurately reflect actual GFR. Performed By: #### 3 016-3, 48472-4, HSTNT, 21051-4, 27395-0, 24980-7 #### [facility] CLIA [id number] 1 [place] [address] [place] Glucose [Mass/Vol] 124 mg/dL High 74-99 [facility] Comment on above: Order Comment: Sharon shaw Type: BLOOD SPECIMEN Ordering Facility: [facility] Address: [address] [place] [address] Result Comment: The [place] Diabetes [employer] (ADA) provides guidance for cutoff values for fasting glucose and random glucose. The ADA defines fasting as no caloric intake for at least 8 hours. Fasting plasma glucose results between 100 to 125 mg/dL indicate increased risk for diabetes (prediabetes). Fasting plasma glucose results greater than or equal to 126 mg/dL meet the criteria for diagnosis of diabetes. In the absence of unequivocal hyperglycemia, results should be confirmed by repeat testing. In a patient with classic symptoms of hyperglycemia or hyperglycemic crisis, random plasma glucose results greater than or equal to 200 mg/dL meet the criteria for diagnosis of diabetes. Reference: Standards of Medical Care in Diabetes 2016, [place] [employer]. Diabetes Care. 2016.39(Suppl 1). Performed By: #### 3 016-3, 09561-0, HSTNT, 82718-2, 06974-3, 04512-7 #### [facility] CLIA [id number] [address] [place] Potassium [Moles/Vol] 4.0 mmol/L Normal 3.7-5.1 [facility] Comment on above: Order Comment: Speci men Type: BLOOD SPECIMEN Ordering Facility: [facility] Address: [address] [place] [address] Performed By: #### 3 016-3, 41837-9, HSTNT, 19689-7, 01702-9, 46169-9 #### [facility] CLIA [id number] [address] STATES OF [facility] Sodium [Moles/Vol] 135 mmol/L Low 136-144 [facility] Comment on above: Order Comment: Speci men Type: BLOOD SPECIMEN Ordering Facility: [facility] Address: [address] [place] [address] Performed By: #### 3 016-3, 32589-0, HSTNT, 12751-2, 00741-8, 22520-5 #### [facility] CLIA [id number] [address] STATES OF [facility] Urea nitrogen [Mass/Vol] 16 mg/dL Normal 9-24 [facility] Comment on above: Order Comment: Speci men Type: BLOOD SPECIMEN Ordering Facility: [facility] Address: [address] [place] [address] Performed By: #### 3 016-3, 52987-4, HSTNT, 33999-6, 34916-1, 16043-8 #### [facility] CLIA [id number] 1 [place] [address] [place] CBC W/Diff, Automatedon 11-0 Absolute Neut Normal 2.0-7.7 [facility] Comment on above: Result Comment: DUPL ICATE ORDER, CBCD DONE IN LAST 24HORS, SPOKE WITH KRISTA RN TO VERIFY. Performed By: #### L 100.0100 #### [facility] [address] [place], [address] Result Comment: Canc elled via OM: Order cancelled - Patient discharged HCT Normal 40-54 [facility] Comment on above: Result Comment: DUPL ICATE ORDER, CBCD DONE IN LAST 24HORS, SPOKE WITH LBENNET RN TO VERIFY. Performed By: #### L 100.0100 #### [facility] [address] [place], [address] Result Comment: Canc elled via OM: Order cancelled - Patient discharged HGB Normal 13.0-16.5 [facility] Comment on above: Result Comment: DUPL ICATE ORDER, CBCD DONE IN LAST 24HORS, SPOKE WITH LBENNET RN TO VERIFY. Performed By: #### L 100.0100 #### [facility] [address] [place], [address] Result Comment: Canc elled via OM: Order cancelled - Patient discharged MCH Normal 27.0-32.0 [facility] Comment on above: Result Comment: DUPL ICATE ORDER, CBCD DONE IN LAST 24HORS, SPOKE WITH LBENNET RN TO VERIFY. Performed By: #### L 100.0100 #### [facility] [address] [place], [address] Result Comment: Canc elled via OM: Order cancelled - Patient discharged MCHC Normal 32-36 [facility] Comment on above: Result Comment: DUPL ICATE ORDER, CBCD DONE IN LAST 24HORS, SPOKE WITH LBENNET RN TO VERIFY. Performed By: #### L 100.0100 #### [facility] [address] [place], [address] Result Comment: Canc elled via OM: Order cancelled - Patient discharged MCV Normal 80-94 [facility] Comment on above: Result Comment: DUPL ICATE ORDER, CBCD DONE IN LAST 24HORS, SPOKE WITH LBENNET RN TO VERIFY. Performed By: #### L 100.0100 #### [facility] [address] [place], [address] Result Comment: Canc elled via OM: Order cancelled - Patient discharged NEUT% Normal 47-70 [facility] Comment on above: Result Comment: DUPL ICATE ORDER, CBCD DONE IN LAST 24HORS, SPOKE WITH LBENNET RN TO VERIFY. Performed By: #### L 100.0100 #### [facility] [address] [place], [address] Result Comment: Canc elled via OM: Order cancelled - Patient discharged PLT Normal 150-450 [facility] Comment on above: Result Comment: DUPL ICATE ORDER, CBCD DONE IN LAST 24HORS, SPOKE WITH LBENNET RN TO VERIFY. Performed By: #### L 100.0100 #### [facility] [address] [place], [address] Result Comment: Canc elled via OM: Order cancelled - Patient discharged RBC Normal 4.6-6.2 [facility] Comment on above: Result Comment: DUPL ICATE ORDER, CBCD DONE IN LAST 24HORS, SPOKE WITH LBENNET RN TO VERIFY. Performed By: #### L 100.0100 #### [facility] [address] [place], [address] Result Comment: Canc elled via OM: Order cancelled - Patient discharged RDW CV Normal 11.6-14.6 [facility] Comment on above: Result Comment: DUPL ICATE ORDER, CBCD DONE IN LAST 24HORS, SPOKE WITH LBENNET RN TO VERIFY. Performed By: #### L 100.0100 #### [facility] [address] [place], [address] Result Comment: Canc elled via OM: Order cancelled - Patient discharged RDW SD Normal 35.1-43.9 [facility] Comment on above: Result Comment: DUPL ICATE ORDER, CBCD DONE IN LAST 24HORS, SPOKE WITH LBENNET RN TO VERIFY. Performed By: #### L 100.0100 #### [facility] [address] [place], [place], [address] Result Comment: Canc elled via OM: Order cancelled - Patient discharged WBC Normal 4.4-11.0 [facility] Comment on above: Result Comment: DUPL ICATE ORDER, CBCD DONE IN LAST 24HORS, SPOKE WITH KRISTA RN TO VERIFY. Performed By: #### L 100.0100 #### [facility] [address] [place], [address] Result Comment: Canc elled via OM: Order cancelled - Patient discharged CBC panel Auto (Bld)on 02-25 Erythrocyte distribution width (RBC) [Ratio] 12.4 % Normal 11.5-15.0 [facility] Comment on above: Order Comment: Speci men Type: BLOOD SPECIMEN Ordering Facility: [facility] Address: [address] [place] [address] Performed By: #### 3 016-3, 04858-5, HSTNT, 89986-8, 54370-0, 00693-0 #### [facility] CLIA [id number] 1 [place] [address] [place] Hematocrit (Bld) [Volume fraction] 41.3 % Normal 39.0-51.0 [facility] Comment on above: Order Comment: Speci men Type: BLOOD SPECIMEN Ordering Facility: [facility] Address: [address] [place] [address] Performed By: #### 3 016-3, 37875-9, HSTNT, 42025-1, 24300-1, 02645-8 #### [facility] CLIA [id number] 1 [place] [address] [place] Hemoglobin (Bld) [Mass/Vol] 14.2 g/dL Normal 13.0-17.0 [facility] Comment on above: Order Comment: Speci men Type: BLOOD SPECIMEN Ordering Facility: [facility] Address: [address] [place] [address] Performed By: #### 3 016-3, 08544-9, HSTNT, 08786-6, 68671-3, 68949-4 #### [facility] CLIA [id number] [address] MCH (RBC) [Entitic mass] 31.2 pg Normal 26.0-34.0 [facility] Comment on above: Order Comment: Speci men Type: BLOOD SPECIMEN Ordering Facility: [facility] Address: [address] [place] [address] Performed By: #### 3 016-3, 29954-5, HSTNT, 51888-0, 82921-4, 43022-1 #### [facility] CLIA [id number] [address] MCHC (RBC) [Mass/Vol] 34.4 g/dL Normal 30.5-36.0 [facility] Comment on above: Order Comment: Speci men Type: BLOOD SPECIMEN Ordering Facility: [facility] Address: [address] [place] [address] Performed By: #### 3 016-3, 84478-8, HSTNT, 82492-7, 50952-3, 67891-4 #### [facility] CLIA [id number] [address] MCV (RBC) [Entitic vol] 90.8 fL Normal 80.0-100.0 [facility] Comment on above: Order Comment: Speci men Type: BLOOD SPECIMEN Ordering Facility: [facility] Address: [address] [place] [address] Performed By: #### 3 016-3, 34892-6, HSTNT, 45929-9, 78098-3, 77517-1 #### [facility] CLIA [id number] [address] Nucleated RBC (Bld) [#/Vol] 10*3/uL Normal <0.01 [facility] Comment on above: Order Comment: Speci men Type: BLOOD SPECIMEN Ordering Facility: [facility] Address: [address] [place] [address] Performed By: #### 3 016-3, 41438-3, HSTNT, 92388-7, 32166-9, 24397-1 #### [facility] CLIA [id number] [address] [place] [address] Platelet mean volume (Bld) [Entitic vol] 10.3 fL Normal 9.0-12.7 [facility] Comment on above: Order Comment: Speci men Type: BLOOD SPECIMEN Ordering Facility: [facility] Address: [address] [place] [address] Performed By: #### 3 016-3, 71354-5, HSTNT, 70997-3, 28914-3, 78348-8 #### [facility] CLIA [id number] [address] [place] [address] [place] Platelets (Bld) [#/Vol] 222 10*3/uL Normal 150-400 [facility] Comment on above: Order Comment: Speci men Type: BLOOD SPECIMEN Ordering Facility: [facility] Address: [address] [place] [address] Performed By: #### 3 016-3, 98723-9, HSTNT, 72957-6, 71806-6, 24084-5 #### [facility] CLIA [id number] [address] [place] [address] [place] RBC (Bld) [#/Vol] 4.55 10*6/uL Normal 4.20-6.00 [facility] Comment on above: Order Comment: Speci men Type: BLOOD SPECIMEN Ordering Facility: [facility] Address: [address] [place] [address] Performed By: #### 3 016-3, 89231-4, HSTNT, 77728-4, 97483-4, 17900-9 #### [facility] CLIA [id number] 1 [place] [address] [place] WBC (Bld) [#/Vol] 10.33 10*3/uL Normal 3.70-11.00 [facility] Comment on above: Order Comment: Speci men Type: BLOOD SPECIMEN Ordering Facility: [facility] Address: [address], [place] [address] Performed By: #### 3 016-3, 91643-6, HSTNT, 15522-9, 21502-2, 48342-9 #### [facility] CLIA [id number] [address] [place] CONSULTon 02-25-2025 CONSULT HNO ID: [id number] Author: RITA HENLEY PA-C Service: Cardiovascular Surgery Author Type: Physician Energy Manager Type: Consults Filed: 02/25/2025 17:36 Note Text: CARDIOTHORACIC SURGERY CONSULT / HANDP SERVICE DATE: 02/25/2025 SERVICE TIME: 11:18 AM Subjective PRIMARY SERVICE: Cardiothoracic Surgery CHIEF COMPLAINT: chest pain/ Shortness of Breath on exertion Consult Reason: CABG eval HPI: This is a 85 year old male with a PMHx of HTN, hypothyroidism, BPH, and cluster headaches who presented to [place] ED with exertional chest pain and shortness of breath. 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 TTE there also reporting normal EF, moderate , and severe MR. Patient noted to have possible a fib there as well. Patient on heparin gtt and transferred here for further work-up and eval for CABG and CTS consulted. Patient seen at bedside on 4100. Patient remains HDS. Patient reports on Saturday while walking his 2 miles, he was cut short d/t chest pain and Shortness of Breath. Later when mowing the lawn, experienced same symptoms but worsening. Patient denies current chest pain or shortness of breath at rest. Patient denies associated symptoms at home including diaphoresis, palpitations, nausea, vomiting, or edema. Patient denies ever being told he has an abnormal heart rhythm. Pt denies previous cardiac surgery or stenting, prior [place], chest radiation, heart failure, COPD/ lung disease, cancer, stroke/TIAs, liver disease, kidney disease, bleeding or clotting disorders, T2DM, PAD, vein stripping, or varicose veins. Patient denies alocohol use, remote smoker for 4-5 years in the 60s, and denies drug use. Lives at home with his . Cares for himself independently and prior to this week walked approximately 2 miles per day at minimum to stay active. Patient disappointed and upset as was told yesterday prior to leaving [place] and on arrival here that he would undergo surgery today or tomorrow. Discussed with him this was not the case and we needed adequate work-up before to risk stratify and to ensure we safely proceed. 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 PAF (paroxysmal atrial fibrillation) (HCC) 02/25/2025 Primary hypertension 10/13/2024 PAST SURGICAL HISTORY Procedure Laterality Date ARTHROSCOPY KNEE DIAGNOSTIC W/WO SYNOVIAL BX SPX ~1979 Arthroscopy, left knee COLONOSCOPY AND POLYPECTOMY 06/18/2001,04/10/00 Colonoscopy COLONOSCOPY FLX DX W/COLLJ SPEC WHEN PFRMD 07/09/07 repeat due 2012 COLONOSCOPY FLX DX W/COLLJ SPEC WHEN PFRMD 05/27/2012 no polyps, repeat due 2017 COLONOSCOPY FLX DX W/COLLJ SPEC WHEN PFRMD 01/20/2018 Colonoscopy COLONOSCOPY W/BIOPSY SINGLE/MULTIPLE 05/10/05 RAD RESECT TUMOR SOFT TISS NECK/ANT THORAX <5CM ~1970 BREAST TUMOR, left RELEASE PALM CONTRACTURE 01/15/2012 Right hand needle aponeurotomy FAMILY HISTORY Problem Relation Age of Onset other (CHF) Mother OLD AGE Colon Cancer Father age 76 +/- SOCIAL HISTORY[1] Prescriptions Prior to Admission[2] verapamil SR (CALAN SR) 120 mg CR tabletTake 1 tablet by mouth once daily.Disp: 90 tabletRfl: 3 levothyroxine (SYNTHROID) 100 mcg tabletTake 1 tablet by mouth once daily.Disp: 90 tabletRfl: 4 tamsulosin (FLOMAX) 0.4 mgTake 2 capsules by mouth once daily.Disp: 180 capsuleRfl: 3 finasteride (PROSCAR) 5 mg tabletTake 1 tablet by mouth once daily.Disp: 90 tabletRfl: 3 losartan (COZAAR) 100 mg tabletTake 1 tablet by mouth once daily.Disp: 30 tabletRfl: 5 therapeutic multivitamin ORAL tabletTake by mouth once daily.Disp: Rfl: 0 MELATONIN 3 MG TABTake 6 mg by mouth daily at bedtime.Disp: Rfl: 0 docusate sodium(LOPEZ LIQUI-GELS 100 MG CAP)Take by mouth once daily.Disp: Rfl: 0 ALLERGIES Allergen Reactions Cheese (See Vegetab* cluster headaches Milk Containing Pro* Intolerance Mold cluster headaches Penicillin G cluster h/a Pollen cluster headaches Vinegar cluster headaches REVIEW OF SYSTEMS: See HPI GENERAL: Denies fever, chills, myalgias, fatigue, recent weight loss or weight gain HEENT: Denies headaches, vision changes, nasal congestion, URI like symptoms, or difficulty swallowing RESPIRATORY: + Shortness of Breath on exertion. Denies cough, sputum production, hemoptysis CARDIOVASCULAR: + chest pain. Denies palpitations or diaphoresis GI: Denies nausea, vomiting, hematemesis, abdominal pain, constipation, diarrhea, hematochezia, or melena : + BPH. Denies difficulty urinating, dysuria, or recent UTI. MUSCULO (more content not included)... Normal [facility] CONSULT HNO ID: [id number] Author: RACHEL PETERS MD Service: Cardiovascular Disease Author Type: Physician Type: Consults Filed: 02/25/2025 11:09 Note Text: Heart, Vascular AND Thoracic [place] Department of Cardiovascular Medicine [facility] CONSULT: CARDIOLOGY SERVICE SERVICE DATE: 02/25/2025 CONSULTING PHYSICIAN: Rachel Peters PCP: Jeremias Damico MD ATTENDING: Omari Heaton MD REASON FOR CONSULT: multivessel CAD Subjective CHIEF COMPLAINT: CABG (coronary artery bypass graft) planned [Z78.9] HISTORY OF PRESENT ILLNESS: Mr. Palacio is a 85 year old male with a history of HTN, hypothyroidism, BPH, a transfer from [place] yesterday. The patient was apparently well until 2 days ago when he noted dyspnea while he was mowing his lawn. He also had chest pain which was 10/10 in severity. Chest pain was retrosternal and was relieved when he rested. On arrival at [place] yesterday, he was noted to have uptrending troponins and underwent a coronary angiogram that revealed severe triple-vessel disease. He was started on heparin infusion and sent here for CABG. He was seen at the bedside with his and his son. He denied any ongoing complaints at the present time. He does not drink alcohol and stopped smoking cigarettes about 60 years ago. The echocardiogram done at the referring facility revealed LVEF of 65% with moderately enlarged left atrium and moderate to severe mitral insufficiency. There was also concern for possible atrial fibrillation. He is currently awaiting evaluation by cardiac surgery. 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 Dr Jameson Diverticulosis of colon (without mention of hemorrhage) Dupuytren's contracture of both hands ED (erectile dysfunction) Hypothyroidism Migraine with aura, without mention of intractable migraine without mention of status migrainosus Asya RAEDr Pierce PAF (paroxysmal atrial fibrillation) ([facility]) 02/25/2025 Primary hypertension 10/13/2024 PAST SURGICAL HISTORY Procedure Laterality Date ARTHROSCOPY KNEE DIAGNOSTIC W/WO SYNOVIAL BX SPX ~1979 Arthroscopy, left knee COLONOSCOPY AND POLYPECTOMY 06/18/2001,04/10/00 Colonoscopy COLONOSCOPY FLX DX W/COLLJ SPEC WHEN PFRMD 07/09/07 repeat due 2012 COLONOSCOPY FLX DX W/COLLJ SPEC WHEN PFRMD 05/27/2012 no polyps, repeat due 2017 COLONOSCOPY FLX DX W/COLLJ SPEC WHEN PFRMD 01/20/2018 Colonoscopy COLONOSCOPY W/BIOPSY SINGLE/MULTIPLE 05/10/05 RAD RESECT TUMOR SOFT TISS NECK/ANT THORAX <5CM ~1969 BREAST TUMOR, left RELEASE PALM CONTRACTURE 01/15/2012 Right hand needle aponeurotomy FAMILY HISTORY Problem Relation Age of Onset other (CHF) Mother OLD AGE Colon Cancer Father age 76 +/- SOCIAL HISTORY[1] Prior to Admission Medications Prescriptions Last Dose Informant Patient Reported? Taking? MELATONIN 3 MG TAB 02/24/2025 Yes Yes Sig: Take 6 mg by mouth daily at bedtime. docusate sodium(LOPEZ LIQUI-GELS 100 MG CAP) 02/25/2025 Morning Yes Yes Sig: Take by mouth once daily. finasteride (PROSCAR) 5 mg tablet 02/25/2025 Morning No Yes Sig: Take 1 tablet by mouth once daily. levothyroxine (SYNTHROID) 100 mcg tablet 02/25/2025 Morning No Yes Sig: Take 1 tablet by mouth once daily. losartan (COZAAR) 100 mg tablet 02/25/2025 Morning No Yes Sig: Take 1 tablet by mouth once daily. tamsulosin (FLOMAX) 0.4 mg 02/25/2025 Morning No Yes Sig: Take 2 capsules by mouth once daily. therapeutic multivitamin ORAL tablet 02/25/2025 Morning Yes Yes Sig: Take by mouth once daily. verapamil SR (CALAN SR) 120 mg CR tablet 02/25/2025 Morning No Yes Sig: Take 1 tablet by mouth once daily. Facility-Administered Medications: None Current Facility-Administered Medications Medication Dose Route Frequency heparin iv infusion 25,000 units in NaCl 0.45% 250 mL LOW DOSE/ACS NOMOGRAM 0-3,000 Units/hr INTRAVENOUS CONTINUOUS And heparin RATE CHANGE bolus 1,000-4,000 Units for subtherapeutic PTTAC results 1,000-4,000 Units INTRAVENOUS PRN [START ON 02/26/2025] verapamil SR 120 mg tab(s) (CALAN SR) 120 mg ORAL DAILY [START ON 02/26/2025] losartan 100 mg tab(s) (COZAAR) 100 mg ORAL DAILY [START ON 02/26/2025] finasteride 5 mg tab(s) (PROSCAR) 5 mg ORAL DAILY [START ON 02/26/2025] levothyroxine 100 mcg tab(s) (SYNTHROID) 100 mcg ORAL DAILY [START ON 02/26/2025] tamsulosin 0.8 mg cap(s) (FLOMAX) 0.8 mg ORAL DAILY melatonin 6 mg tab(s) 6 mg ORAL AT BEDTIME NaCl 0.9% iv flush bag 20 mL INTRAVENOUS PRN lactated ringers iv infusion 75 mL/hr INTRAVENOUS CONTINUOUS ondansetron 4 mg tab(s) (ZOFRAN) 4 mg ORAL q 6 H PRN Or ondansetron (PF) 4 mg injection (ZOFRAN) 4 mg INTRAVENOUS q 6 H PRN acetaminophen 1,000 mg tab(s) (TYLENOL) 1,000 mg ORAL q 6 H PRN melatonin 1 mg tab(s) 1 mg ORAL DAILY PRN atorvastatin 40 mg tab(s) (LIPITOR) 40 mg ORAL AT BEDTIME therapeutic multivitamin-mine (more content not included)... Normal [facility] CT CHEST WO IVCONon 02-26-[address] CHEST WO IVCON * * *Final Report* * * DATE OF EXAM: Feb 25 2025 1:37PM [facility] 0541 - CT CHEST WO IVCON / PROCEDURE REASON: Lung nodule, post chest CT or PET/CT, high suspicion of lung cancer, pre-op imag * * * * Physician Interpretation * * * * EXAMINATION: CHEST CT WITHOUT CONTRAST CLINICAL HISTORY: 85-year-old male presenting with exertional chest pain, NSTEMI. Status post left heart catheterization showing severe three-vessel CAD. Cardiothoracic surgery evaluation for CABG pending. Technique: Spiral CT acquisition of the chest from the thoracic inlet to the upper abdomen without contrast. MQ: [id number]_6 CT Radiation dose: Integrated Dose-length product (DLP) for this visit = 286 mGy*cm CT Dose Reduction Employed: Automated exposure control(AEC) and iterative recon Comparison: Chest radiographs 08/06/2011. RESULT: Limitations: Noncontrast technique. Lines, tubes, and devices: None. Lung parenchyma and airways: Bibasilar atelectasis. The central airways are patent. On the right, 4 mm superior segment lower lobe nodule, image 100 of series 4. Several 5 mm and smaller sized middle lobe nodules, images 117, 129, 144 and 157. On the left, 5 mm posterior superior segment lower lobe subpleural nodule, image 90, 4 mm lower lobe nodule, image 142, 8 mm basilar lower lobe nodular density, image 169 and 6 mm subpleural nodule within the posterior costophrenic angle, image 174. Cluster of calcified nodules within the anterior lower lobe. Pleural space: No pleural effusion. Lower neck, lymph nodes, and mediastinum: The imaged thyroid gland is normal. No lymphadenopathy in the supraclavicular, axillary, mediastinal, or hilar regions with calcified left hilar nodes.. Heart, pericardium, and thoracic vessels: The main pulmonary artery is normal in caliber. The mid ascending thoracic aorta measures 4.2 cm in diameter tapering in diameter distally. Atherosclerotic calcifications thoracic aortic arch, great vessels and descending thoracic aorta. The cardiac chambers are normal in size. Multivessel coronary artery atherosclerotic calcifications are noted, although the study is not optimized for coronary assessment. Trace pericardial effusion. Bones and soft tissues: Degenerative changes. Chest wall is unremarkable. Upper abdomen: Punctate calcifications scattered throughout the liver and spleen. 1 cm hypodensity lateral segment left lobe of the liver near the dome. Hyperattenuating dependent gallbladder. 3.2 cm exophytic cyst medial upper pole right kidney. Mild narrowing at the celiac origin with mild poststenotic dilatation measuring 1.4 cm in diameter. Localizer images: No additional findings. IMPRESSION: Bilateral pulmonary nodules. The majority of pulmonary nodules measure less than 6 mm in size with 8 mm nodular density at the left lung base. Correlate with clinical concern for metastatic disease. Recommend follow-up CT chest at 3-6 months. 4.2 cm diameter mid ascending thoracic aorta tapering in diameter distally. 1 cm hepatic hypodensity. Hyperattenuating dependent gallbladder which may be on the basis of dense bile, vicarious excretion of contrast or possible gallbladder sludge/gallstones. Sequela of prior granulomatous infection above and below the diaphragm. ACTIONABLE RESULT: FOLLOW-UP Acuity: Actionable Findings: Thoracic-Lung nodules Routing code: RI_1 Recommendation: CT Chest WO IVCON Time Frame: 3-6 months COMMUNICATION: Results will be communicated with the ordering provider via [employer] staff message or phone message by [employer] within 2 business days of report finalization. --END OF FINDING-- Fire Extinguisher Tester: GAEL Transcribe Date/Time: Feb 25 2025 2:53P Dictated by : BELIA ABDUL MD This examination was interpreted and the report reviewed and electronically signed by: BELIA ABDUL MD on Feb 25 2025 3:16PM EST [id number] ACTIONABLE Invalid Interpretation Code [facility] ECG COMPLETEon 02-25-2025 ECG COMPLETE Ventricular Rate : 5 5 BPM QRS Duration : 88 ms Q-T Interval : 460 ms QTC Calculation(Bazett) : 440 ms Calculated R Condon : 85 degrees Calculated T Condon : 267 degrees SINUS BRADYCARDIA WITH 1ST DEGREE A-V BLOCK WITH PREMATURE ATRIAL COMPLEXES AND WITH OCCASIONAL BLOCKED PREMATURE ATRIAL COMPLEXES ST & T WAVE ABNORMALITY, CONSIDER INFERIOR ISCHEMIA ABNORMAL ECG WHEN COMPARED WITH ECG OF 25-Feb-2025 00:38, QUESTIONABLE CHANGE IN QRS AXIS T WAVE INVERSION NOW EVIDENT IN INFERIOR LEADS Confirmed by MD JOHN, IVA ([id number]) on 02/26/2025 12:40:39 PM NAME : ELSA PALACIO PID : [id number] : 1940 Gender : Male Race : ORD : [id number] Procedure Date : Feb 25 2025 14:55:32 Edit Date : Feb 26 2025 12:40:42 Diagnosis: SINUS BRADYCARDIA WITH 1ST DEGREE A-V BLOCK WITH PREMATURE ATRIAL COMPLEXES AND WITH OCCASIONAL BLOCKED PREMATURE ATRIAL COMPLEXES ST & T WAVE ABNORMALITY, CONSIDER INFERIOR ISCHEMIA ABNORMAL ECG WHEN COMPARED WITH ECG OF 25-Feb-2025 00:38, QUESTIONABLE CHANGE IN QRS AXIS T WAVE INVERSION NOW EVIDENT IN INFERIOR LEADS Confirmed by MD BACH ANUBHAV ([id number]) on 02/26/2025 12:40:39 PM Test Reason : Arrhythmia Location : 200 : [facility] Overread By : MD BACH ANUBHAV Edited By : MD BACH ANUBHAV Referred By : SHAWN CHAU Acquired by : CESAR ROLON Normal [facility] ECG COMPLETE Ventricular Rate : 7 1 BPM QRS Duration : 92 ms Q-T Interval : 430 ms QTC Calculation(Bazett) : 467 ms Calculated R Condon : 8 degrees Calculated T Condon : 101 degrees NORMAL SINUS RHYTHM WITH 1ST DEGREE A-V BLOCK POOR R WAVE PROGRESSION NONSPECIFIC ST AND T WAVE ABNORMALITY ABNORMAL ECG NO PREVIOUS ECGS AVAILABLE Confirmed by MD NAPIER DAVID ([id number]) on 02/25/2025 12:33:22 PM NAME : ELSA PALACIO PID : [id number] : 1940 Gender : Male Race : ORD : [id number] Procedure Date : Feb 25 2025 00:38:41 Edit Date : Feb 25 2025 12:33:26 Diagnosis: NORMAL SINUS RHYTHM WITH 1ST DEGREE A-V BLOCK POOR R WAVE PROGRESSION NONSPECIFIC ST AND T WAVE ABNORMALITY ABNORMAL ECG NO PREVIOUS ECGS AVAILABLE Confirmed by MD NAPIER DAVID ([id number]) on 02/25/2025 12:33:22 PM Test Reason : Check QT Location : 200 : [facility] Overread By : MD NAPIER DAVID Edited By : MD NAPIER DAVID Referred By : SHAWN CHAU Acquired by : DIPIKA ADRIAN [facility] HIGH SENSITIVITY TROPONIN To n 02-25-2025 Troponin T.cardiac High sensitivity method [Mass/Vol] 287 ng/L High <12 [facility] Comment on above: Order Comment: Speci men Type: BLOOD SPECIMEN Ordering Facility: [facility] Address: [address], [place] [id number] Performed By: #### 3 016-3, 47005-7, HSTNT, 38122-7, 91589-3, 42538-8 #### [facility] CLIA [id number] [address] [place] [address] [place] HISTORY PHYSICALon HISTORY PHYSICAL HNO ID: [id number] Author: YULISSA THORNTON MD Service: Hospital Medicine Author Type: Registered Nurse Type: H&P Filed: 02/25/2025 02:47 Note Text: Attestation signed by Yulissa Thornton MD at 02/25/2025 2:47 AM (Updated) I performed a history and physical examination of the patient and discussed the management with the nurse practitioner student. I reviewed the resident's note and agree with the documented findings and plan of care. 85yoM w/ hx HTN, hypothyroidism, BPH, a transfer fr [place] where he presented w/ exertional chest pain/sob w/ uptrending troponins, 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 VSS, currently comfortable. EKG in [place] was NSR, EKG here concerning for Afib. Echo: EF 65%, st 1 diastolic dysfxn, moderately enlarged LA, moderate to severe MV insufficiency, moderately thickened AV, small loculated pericardial effusion. A> NSTEMI / CAD w/ severe triple vessel disease PAF Moderate to severe MV insufficiency Hypothyroidism Hx cluster headache BPH P> Continue heparin gtt, follow telemetry/trop, heparin gtt, atorvastatin, cardiology and CT surgery consultations Takes synthroid, losartan, verapamil at home Tamsulosin/finasterid e Full code [facility] MEDICINE HISTORY AND PHYSICAL EXAM SERVICE DATE: 02/25/2025 SERVICE TIME: 12:23 AM Primary Care Physician: Jeremias Damico MD NIGHT AND WEEKEND COVERAGE: From 7am - 7pm, please call Sound After 7pm, please call cross cover pager #[phone] Subjective CHIEF COMPLAINT: Abnormal heart cath HPI: This is a 85 year old male with hx of cluster headache, hypothyroidism, trigger finger, erectile dysfunction, HTN. The patient comes in w 4 days history of Shortness of Breath and Chest pain w exertion. The heart cath 02/24/2025 showed triple vessel disease. Troponin 218 > 243, EKG SR w PAC, QTC 466, Vitals: BP 149/96 MAP 114, HR 73, Temp 97.5F, SPO2 96% RA Pt denies headache, fever, chills, vision changes, swallowing problems, neck pain, cough, abdominal pain, flank pain, nausea, vomiting, diarrhea, constipation, bleeding, urinary problems, muscle pain or weakness, numbness, tingling, or joint pain/swelling 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 Dr Jameson Diverticulosis of colon (without mention of hemorrhage) Dupuytren's contracture of both hands ED (erectile dysfunction) Hypothyroidism Migraine with aura, without mention of intractable migraine without mention of status migrainosus Cluster RAE, Dr Pierce Primary hypertension 10/13/2024 PAST SURGICAL HISTORY Procedure Laterality Date ARTHROSCOPY KNEE DIAGNOSTIC W/WO SYNOVIAL BX SPX ~1979 Arthroscopy, left knee COLONOSCOPY AND POLYPECTOMY 06/18/2001,04/10/00 Colonoscopy COLONOSCOPY FLX DX W/COLLJ SPEC WHEN PFRMD 07/09/07 repeat due 2012 COLONOSCOPY FLX DX W/COLLJ SPEC WHEN PFRMD 05/27/2012 no polyps, repeat due 2017 COLONOSCOPY FLX DX W/COLLJ SPEC WHEN PFRMD 01/20/2018 Colonoscopy COLONOSCOPY W/BIOPSY SINGLE/MULTIPLE 05/10/05 RAD RESECT TUMOR SOFT TISS NECK/ANT THORAX <5CM ~1969 BREAST TUMOR, left RELEASE PALM CONTRACTURE 01/15/2012 Right hand needle aponeurotomy FAMILY HISTORY Problem Relation Age of Onset other (CHF) Mother OLD AGE Colon Cancer Father age 76 +/- SOCIAL HISTORY[1] HOME MEDICATIONS: Prior to Admission Medications Prescriptions Last Dose Informant Patient Reported? Taking? MELATONIN 3 MG TAB 02/24/2025 Yes Yes Sig: Take 6 mg by mouth daily at bedtime. docusate sodium(LOPEZ LIQUI-GELS 100 MG CAP) 02/25/2025 Morning Yes Yes Sig: Take by mouth once daily. finasteride (PROSCAR) 5 mg tablet 02/25/2025 Morning No Yes Sig: Take 1 tablet by mouth once daily. levothyroxine (SYNTHROID) 100 mcg tablet 02/25/2025 Morning No Yes Sig: Take 1 tablet by mouth once daily. losartan (COZAAR) 100 mg tablet 02/25/2025 Morning No Yes Sig: Take 1 tablet by mouth once daily. tamsulosin (FLOMAX) 0.4 mg 02/25/2025 Morning No Yes Sig: Take 2 capsules by mouth once daily. therapeutic multivitamin ORAL tablet 02/25/2025 Morning Yes Yes Sig: Take by mouth once daily. verapamil SR (CALAN SR) 120 mg CR tablet 02/25/2025 Morning No Yes Sig: Take 1 tablet by mouth once daily. Facility-Administered Medications: None ALLERGIES Allergen Reactions Cheese (See Vegetab* cluster headaches Milk Containing Pro* Intolerance Mold cluster headaches Penicillin G cluster h/a Pollen cluster headaches Vinegar cluster headaches REVIEW OF SYSTEM: All ROS are negative except those noted in HPI Objective PHYSICAL EXAM: BP 149/96 Pulse 73 Temp 97.5 Ht 5' 10 (1.78m) Wt 172 lb 6. (more content not included)... Normal [facility] HbA1c (Bld)on 02-25-2025 Average glucose Estimated from glycated hemoglobin (Bld) [Mass/Vol] 123 mg/dL Normal [facility] Comment on above: Order Comment: Speci men Type: BLOOD SPECIMEN Ordering Facility: [facility] [address] [place] [address] Result Comment: eAG: (Estimated average glucose) is a calculated value from HgbA1c and is insurance claim representative of the average blood glucose level in the last 2-3 month period. Performed By: #### 3 016-3, 47957-4, HSTNT, 66149-9, 81765-5, 24759-7 #### [facility] CLIA [id number] [address] HbA1c (Bld) [Mass fraction] 5.9 % High 4.3-5.6 [facility] Comment on above: Order Comment: Speci men Type: BLOOD SPECIMEN Ordering Facility: [facility] Address: [address] [place] [address] Result Comment: [place] Diabetes Association guidelines indicate that patients with HgbA1c in the range 5.7-6.4% are at increased risk for development of diabetes, and intervention by lifestyle modification may be beneficial. HgbA1c greater or equal to 6.5% is considered diagnostic of diabetes. Performed By: #### 3 016-3, 48815-0, HSTNT, 56198-3, 96479-5, 85476-8 #### [facility] CLIA [id number] [address] Hepatic function 2000 panelo n 02-25-2025 Albumin [Mass/Vol] 3.9 g/dL Normal 3.9-4.9 [facility] Comment on above: Order Comment: Speci men Type: BLOOD SPECIMEN Ordering Facility: [facility] Address: [address] [place] [address] Performed By: #### 3 016-3, 40845-2, HSTNT, 05100-1, 96556-5, 13834-3 #### [facility] CLIA [id number] [address] [place] [facility] ALP [Catalytic activity/Vol] 90 U/L Normal 38-113 [facility] Comment on above: Order Comment: Speci men Type: BLOOD SPECIMEN Ordering Facility: [facility] Address: [address] [place] [address] Performed By: #### 3 016-3, 24920-0, HSTNT, 88247-1, 42864-4, 70090-9 #### [facility] CLIA [id number] [address] [place] [address] [place] ALT With P-5'-P [Catalytic activity/Vol] 18 U/L Normal 10-54 [facility] Comment on above: Order Comment: Speci men Type: BLOOD SPECIMEN Ordering Facility: [facility] Address: [address] [place] [address] Performed By: #### 3 016-3, 58533-0, HSTNT, 50496-3, 13821-4, 31084-1 #### [facility] CLIA [id number] [address] [place] [address] [place] AST With P-5'-P [Catalytic activity/Vol] 44 U/L High 14-40 [facility] Comment on above: Order Comment: Speci men Type: BLOOD SPECIMEN Ordering Facility: [facility] Address: [address] [place] [address] Performed By: #### 3 016-3, 63228-0, HSTNT, 03903-1, 53885-8, 29634-2 #### [facility] CLIA [id number] [address] [place] [address] [place] Bilirubin [Mass/Vol] 0.6 mg/dL Normal 0.2-1.3 [facility] Comment on above: Order Comment: Speci men Type: BLOOD SPECIMEN Ordering Facility: [facility] Address: [address] [place] [address] Performed By: #### 3 016-3, 01158-8, HSTNT, 02016-6, 06707-3, 25675-7 #### [facility] CLIA [id number] [address] [place] [address] [place] Bilirubin.conjugated [Mass/Vol] 0.2 mg/dL Normal <0.3 [facility] Comment on above: Order Comment: Speci men Type: BLOOD SPECIMEN Ordering Facility: [facility] Address: [address] [place] [address] Performed By: #### 3 016-3, 52877-5, HSTNT, 95990-0, 63808-5, 26091-4 #### [facility] CLIA [id number] [address] [place] Protein [Mass/Vol] 6.4 g/dL Normal 6.3-8.0 [facility] Comment on above: Order Comment: Speci men Type: BLOOD SPECIMEN Ordering Facility: [facility] Address: [address] [place] [address] Performed By: #### 3 016-3, 43569-9, HSTNT, 89295-9, 98736-7, 30574-5 #### [facility] CLIA [id number] [address] [place] [address] [place] [facility] Magnesium [Mass/Vol] 2.1 mg/dL Normal 1.7-2.3 [facility] Comment on above: Order Comment: Speci men Type: BLOOD SPECIMEN Ordering Facility: [facility] Address: [address] [place] [address] Performed By: #### 3 016-3, 00493-2, HSTNT, 51980-9, 97847-7, 20514-0 #### [facility] CLIA [id number] [address] [place] NT-proBNP SerPl-ncon 02-25 Natriuretic peptide.B prohormone N-Terminal [Mass/Vol] 2640 pg/mL High <450 [facility] Comment on above: Order Comment: Speci men Type: BLOOD SPECIMEN Ordering Facility: [facility] Address: [address] [place] [address] Performed By: #### 3 016-3, 49716-0, HSTNT, 57957-4, 54297-6, 26029-8 #### [facility] CLIA [id number] [address] [place] PT panel Coag (PPP)on 2024 INR Coag (PPP) [Relative time] 1.0 {INR} Normal 0.9-1.3 [facility] Comment on above: Order Comment: Speci men Type: BLOOD SPECIMEN Ordering Facility: [facility] Address: [address] [place] [address] Result Comment: Sigrid min K Antagonist (VKA) Therapeutic Range: INR 2 to 3 (Target INR of 2.5) Note: For patients treated with VKA drugs, such as warfarin, the [employer] 2012 Guideline recommends a therapeutic INR range of 2 to 3 (target INR of 2.5). This recommendation includes high-risk patients with antiphospholipid syndrome with previous arterial or venous thromboembolism, current-generation mechanical or bioprosthetic aortic heart valve replacement. Note: Patients with mechanical aortic valve replacement and additional risk factors for thromboembolic events (atrial fibrillation, previous thromboembolism, LV dysfunction, hypercoagulable conditions) or an older generation mechanical AVR (i.e., ball in-Cage) or any mechanical MVR should have a INR therapeutic range of 2.5 to 3.5 (target INR of 3). Jhoan ZEPEDA, et al. Chest 2012, 141:7S-47S Jose RA, et al. [facility] 2017, 70: 252-289 Performed By: #### 3 016-3, 83657-8, HSTNT, 95481-6, 29510-7, 70500-1 #### [facility] CLIA [id number] [address] [place] [address] [place] PT Coag (PPP) [Time] 10.5 s Normal 9.7-13.0 [facility] Comment on above: Order Comment: Speci men Type: BLOOD SPECIMEN Ordering Facility: [facility] Address: [address] [place] [address] Performed By: #### 3 016-3, 59197-6, HSTNT, 20221-9, 82122-2, 15252-9 #### [facility] CLIA [id number] 1 [place] [address] [place] STAPHYLOCOCCUS AUREUS AND MR SA SCREEN, PCR, NASALon 02-25-2025 S. aureus and MRSA panel MARYANNE+probe (Nose) Not detected Normal Not Detected [facility] Comment on above: Order Comment: Speci men Type: SWAB Ordering Facility: [facility] Address: [address] [place] [address] Performed By: #### S APCR #### [facility] CLIA [id number] [address] STATES OF [facility] THERAPY NTon 02-25-2025 THERAPY NT HNO ID: [id number] Author: NATA FRY RRT Service: Respiratory Therapy Author Type: Registered Resp Therapist Type: Therapy (PT/OT/Speech/Resp) Filed: 02/25/2025 18:34 Note Text: Summary: Bedside Spirometry RESPIRATORY THERAPY PROGRESS NOTE SERVICE DATE: 02/25/2025 SERVICE TIME: 183202/25/[id number] Resp Assessment: Within Normal Limits (WNL): Rhythm Regular and Unlabored; No Cough or Sputum; Breath Sounds Clear All Lobes Peak Expiratory Flow Rate (LPM) 7.17 Forced Vital Capacity (FVC) (L) 2.9 Bedside Spirometry/Neuromuscu lar Assessment $Bedside Spirometry/Neuromuscu lar Assessment $Performed - Bedside Spirometry FEV1 (L) (Non-Intubated) 2.75 FEV1/FVC Ratio (%) 94.83 Patient Technique/Effort (Bedside Spirometry) Excellent Spirometry Adverse Effects No Copy placed on front of chart SIGNATURE: Nata Fry RRT PATIENT NAME: Elsa Palacio DATE: February 25, 2025 TIME: 6:34 PM PAGER/CONTACT #: Normal [facility] TSH SerPl-aCncon 02-25-2025 TSH Qn 1.880 m[IU]/L Normal 0.270-4.200 [facility] Comment on above: Order Comment: Speci men Type: BLOOD SPECIMEN Ordering Facility: [facility] Address: [address] [place], [place] [id number] Performed By: #### 1 9123-9, 67295-8 #### [facility] CLIA [id number] [address] OF [facility] TYPE + SCREENon 02-25-2025 ABO B Normal [facility] Comment on above: Order Comment: Speci men Type: BLOOD SPECIMEN Ordering Facility: [facility] Address: [address] [place] [address] Performed By: #### 3 016-3, 04706-6, HSTNT, 06055-3, 93888-1, 75718-0 #### [facility] CLIA [id number] [address] OF [facility] Rh Nom (Bld) Positive Normal [facility] Comment on above: Order Comment: Speci men Type: BLOOD SPECIMEN Ordering Facility: [facility] Address: [address] [place] [address] Performed By: #### 3 016-3, 06346-2, HSTNT, 61156-3, 50133-6, 09099-4 #### [facility] CLIA [id number] [address] TYPE AND SCREEN EXPIRATION 02/28/2025 23:59 Normal [facility] Comment on above: Order Comment: Speci men Type: BLOOD SPECIMEN Ordering Facility: [facility] Address: [address] [place] [address] Performed By: #### 3 016-3, 86525-8, HSTNT, 81608-1, 87184-2, 21138-0 #### [facility] CLIA [id number] [address] OF [facility] US CAROTID BILon 02-25-2025 US CAROTID NGUYỄN * * *Final Report* * * DATE OF EXAM: Feb 25 2025 1:26PM A2U 1077 - US CAROTID NGUYỄN / PROCEDURE REASON: preop cabg * * * * Physician Interpretation * * * * Non-Invasive Vascular Laboratory [facility] Carotid Duplex Bilateral/Complete Date of service/time: 02/25/2025 12:35:13 PM HOSPITAL Name: MR. ELSA PALACIO Date of : 1940 Age: 85 years Gender: M Medical History Tobacco: Former Coronary disease: Yes Myocardial infarction: Yes Hypertension: Yes Clinical Indication Pre op for cardiac surgery. TECHNIQUE -------- A carotid duplex ultrasound examination was performed, including grayscale imaging and color Doppler and spectral Doppler examination of the below mentioned arteries. FINDINGS -------- RIGHT SIDE Common carotid artery: Origin: PSV: 91 cm/s. EDV: 13 cm/s. Proximal: PSV: 69 cm/s. EDV: 10 cm/s. Mid: PSV: 85 cm/s. EDV: 11 cm/s. Distal: PSV: 44 cm/s. EDV: 7 cm/s. Internal carotid artery: Origin: PSV: 69 cm/s. EDV: 19 cm/s. Proximal: PSV: 69 cm/s. EDV: 17 cm/s. Mid: PSV: 59 cm/s. EDV: 14 cm/s. Distal: PSV: 75 cm/s. EDV: 26 cm/s. Moderate heterogeneous laminated, calcified and shadowing plaque from origin to proximal. ICA/CCA Ratio: 1.6 External carotid artery: PSV: 82 cm/s. EDV: 0 cm/s. Moderate heterogeneous irregular, calcified and shadowing plaque from origin to proximal. Subclavian artery: PSV: 48 cm/s. EDV: 0 cm/s. Innominate artery: PSV: 85 cm/s. EDV: 9 cm/s. Vertebral artery: PSV: 39 cm/s. EDV: 10 cm/s. LEFT SIDE Common carotid artery: Proximal: PSV: 71 cm/s. EDV: 7 cm/s. Mid: PSV: 61 cm/s. EDV: 11 cm/s. Distal: PSV: 84 cm/s. EDV: 15 cm/s. Mild homogeneous laminated and shadowing plaque at mid. Internal carotid artery: Origin: PSV: 45 cm/s. EDV: 23 cm/s. Proximal: PSV: 51 cm/s. EDV: 18 cm/s. Mid: PSV: 49 cm/s. EDV: 13 cm/s. Distal: PSV: 46 cm/s. EDV: 17 cm/s. Mild homogeneous laminated plaque at origin. ICA/CCA Ratio: 0.6 External carotid artery: PSV: 100 cm/s. EDV: 0 cm/s. Mild heterogeneous irregular, calcified and shadowing plaque from origin to proximal. Subclavian artery: PSV: 89 cm/s. EDV: 0 cm/s. Vertebral artery: PSV: 41 cm/s. EDV: 9 cm/s. IMPRESSION Please note: the new carotid interpretation criteria are used as recommended by [employer]. RIGHT SIDE Common carotid artery: Patent. Internal carotid artery: <50% stenosis consistent with mild carotid artery disease. External carotid artery: Patent. Vertebral artery: Patent and antegrade flow noted. Innominate artery: Patent. Subclavian artery: Patent. LEFT SIDE Common carotid artery: Plaque visualized without evidence of hemodynamically significant stenosis. Internal carotid artery: <50% stenosis consistent with mild carotid artery disease. External carotid artery: Patent. Vertebral artery: Patent and antegrade flow noted. Subclavian artery: Patent. Technologist: Aide Chamberlain RVT Ordering physician: OMARI HEATON Interpreting physician: Mckayla Person MD * * * Final * * * RP Fire Extinguisher Tester: AMY Transcribe Date/Time: Feb 25 2025 12:35P Dictated by : MCKAYLA PERSON MD This examination was interpreted and the report reviewed and electronically signed by: MCKAYLA PERSON MD on Feb 26 2025 8:50AM EST [id number] Normal [facility] Urinalysis complete panel (U )on 02-25-2025 Bilirubin Ql (U) Negative Normal Negative [facility] Comment on above: Order Comment: Speci men Type: BLOOD SPECIMEN Ordering Facility: [facility] Address: [address] [place], [place] [address] Performed By: #### 3 016-3, 86274-3, HSTNT, 69366-7, 38925-9, 13544-4 #### [facility] CLIA [id number] [address] [place] Clarity (Unsp spec) Turbid Abnormal Clear [facility] Comment on above: Order Comment: Speci men Type: BLOOD SPECIMEN Ordering Facility: [facility] Address: [address] [place] [address] Performed By: #### 3 016-3, 77836-4, HSTNT, 39129-2, 89665-3, 71415-2 #### [facility] CLIA [id number] [address] Color (U) Yellow Normal yellow [facility] Comment on above: Order Comment: Speci men Type: BLOOD SPECIMEN Ordering Facility: [facility] Address: [address] [place] [address] Performed By: #### 3 016-3, 81787-9, HSTNT, 35926-0, 91980-8, 33206-6 #### [facility] CLIA [id number] [address] Epithelial cells LM.HPF (Urine sed) [#/Area] Few Abnormal None Seen [facility] Comment on above: Order Comment: Speci men Type: BLOOD SPECIMEN Ordering Facility: [facility] Address: [address] [place] [address] Performed By: #### 3 016-3, 60220-7, HSTNT, 45572-5, 76856-8, 13171-8 #### [facility] CLIA [id number] [address] [place] Glucose Test strip (U) [Mass/Vol] Negative Normal Trace, Negative [facility] Comment on above: Order Comment: Speci men Type: BLOOD SPECIMEN Ordering Facility: [facility] Address: [address] [place] [address] Performed By: #### 3 016-3, 74105-1, HSTNT, 64459-2, 55214-3, 69226-1 #### [facility] CLIA [id number] 1 [place] [address] [place] Hemoglobin Ql (U) Negative Normal Negative, Trace [facility] Comment on above: Order Comment: Speci men Type: BLOOD SPECIMEN Ordering Facility: [facility] Address: [address] [place] [address] Performed By: #### 3 016-3, 02083-0, HSTNT, 55789-1, 16278-8, 95226-0 #### [facility] CLIA [id number] [address] OF [facility] Ketones Ql (U) Negative Normal Negative, Trace [facility] Comment on above: Order Comment: Speci men Type: BLOOD SPECIMEN Ordering Facility: [facility] Address: [address] [place] [address] Performed By: #### 3 016-3, 91219-5, HSTNT, 96343-0, 16418-6, 92132-3 #### [facility] CLIA [id number] [address] Leukocyte esterase Test strip Ql (U) Negative Normal Negative, 25 Iliana/uL [facility] Comment on above: Order Comment: Speci men Type: BLOOD SPECIMEN Ordering Facility: [facility] Address: [address] [place] [address] Performed By: #### 3 016-3, 44765-2, HSTNT, 77265-2, 33760-7, 34951-2 #### [facility] CLIA [id number] [address] Nitrite Ql (U) Negative Normal Negative [facility] Comment on above: Order Comment: Speci men Type: BLOOD SPECIMEN Ordering Facility: [facility] Address: [address] [place] [address] Performed By: #### 3 016-3, 32819-4, HSTNT, 01515-7, 78677-4, 00189-8 #### [facility] CLIA [id number] 1 [place] [address] [place] pH (U) 7.5 [pH] Normal 5.0-8.0 [facility] Comment on above: Order Comment: Speci men Type: BLOOD SPECIMEN Ordering Facility: [facility] Address: [address] [place] [address] Performed By: #### 3 016-3, 40850-1, HSTNT, 72504-7, 51428-1, 21673-4 #### [facility] CLIA [id number] 1 [place] [address] [place] Protein (U) [Mass/Vol] Negative Normal Trace, Negative [facility] Comment on above: Order Comment: Speci men Type: BLOOD SPECIMEN Ordering Facility: [facility] Address: [address] [place] [address] Performed By: #### 3 016-3, 96887-5, HSTNT, 71158-5, 84359-8, 20907-6 #### [facility] CLIA [id number] 1 [place] [address] [place] RBC LM.HPF (Urine sed) [#/Area] 11-25 /HPF Abnormal 0-3 /HPF [facility] Comment on above: Order Comment: Speci men Type: BLOOD SPECIMEN Ordering Facility: [facility] Address: [address] [place] [address] Performed By: #### 3 016-3, 28920-2, HSTNT, 38922-0, 55392-7, 31159-3 #### [facility] CLIA [id number] 1 [place] [address] [place] Specific gravity (U) [Rel density] 1.019 Normal 1.005-1.030 [facility] Comment on above: Order Comment: Speci men Type: BLOOD SPECIMEN Ordering Facility: [facility] Address: [address] [place] [address] Performed By: #### 3 016-3, 64524-9, HSTNT, 12532-3, 16219-6, 12247-1 #### [facility] CLIA [id number] [address] [place] Urobilinogen Ql (U) Normal Normal Normal [facility] Comment on above: Order Comment: Speci men Type: BLOOD SPECIMEN Ordering Facility: [facility] Address: [address] [place] [address] Performed By: #### 3 016-3, 04744-8, HSTNT, 27490-9, 99916-3, 98359-7 #### [facility] CLIA [id number] [address] [place] WBC LM.HPF (Urine sed) [#/Area] 0-5 /HPF Normal 0-5 /HPF [facility] Comment on above: Order Comment: Speci men Type: BLOOD SPECIMEN Ordering Facility: [facility] Address: [address] [place] [address] Performed By: #### 3 016-3, 91130-9, HSTNT, 62158-9, 65240-0, 51390-8 #### [facility] CLIA [id number] [address] [place] aPTT PPPon 02-25-2025 aPTT Coag (PPP) [Time] 64.3 s High 23.0-32.4 [facility] Comment on above: Order Comment: Speci men Type: BLOOD SPECIMEN Ordering Facility: [facility] Address: [address] [place] [address] Performed By: #### 3 016-3, 27267-8, HSTNT, 72832-2, 56289-3, 70611-8 #### [facility] CLIA [id number] [address] [place] aPTT Coag (PPP) [Time] 63.5 s High 23.0-32.4 [facility] Comment on above: Order Comment: Speci men Type: BLOOD SPECIMEN Ordering Facility: [facility] Address: [address] [place] [address] Performed By: #### 3 016-3, 05164-0, HSTNT, 43795-6, 95064-4, 38971-6 #### [facility] CLIA [id number] 1 [place] [address] [place] aPTT Coag (PPP) [Time] 35.3 s High 23.0-32.4 [facility] Comment on above: Order Comment: Speci men Type: BLOOD SPECIMEN Ordering Facility: [facility] Address: [facility] [place] [address] Performed By: #### 3 016-3, 21289-0, HSTNT, 76515-1, 24843-5, 51333-9 #### [facility] CLIA [id number] 1 [place] [id number] [facility] Basic Metabolic Profile (BMP )on 02-24-2025 BUN/CRE 16.7 RATIO Normal 10-20 [facility] Comment on above: Performed By: #### L 500.2500, L100.0100, L501.4021 ####[facility] [address] [place], [address] Calcium [Mass/Vol] 9.4 mg/dL Normal 7.6-11.0 [facility] Comment on above: Performed By: #### L 500.2500, L100.0100, L501.4021 ####[facility] [address] [place], [address] Chloride [Moles/Vol] 100 mmol/L Normal 98-108 [facility] Comment on above: Performed By: #### L 500.2500, L100.0100, L501.4021 ####[facility] [address] [place], [address] CO2 [Moles/Vol] 24.9 mmol/L Normal 21.0-32.0 [facility] Comment on above: Performed By: #### L 500.2500, L100.0100, L501.4021 ####[facility] [address] [place], [address] Creatinine [Mass/Vol] 1.11 mg/dL Normal 0.70-1.20 [facility] Comment on above: Performed By: #### L 500.2500, L100.0100, L501.4021 ####[facility] [address] [place], [address] ECRCL 50.24 ml/min Normal 50-250 [facility] Comment on above: Performed By: #### L 500.2500, L100.0100, L501.4021 ####[facility] [address] [place], [address] GAP 9 Normal 5-15 [facility] Comment on above: Performed By: #### L 500.2500, L100.0100, L501.4021 ####[facility] [address] [place], [address] GFR/1.73 sq M.predicted among non-blacks MDRD (S/P/Bld) [Vol rate/Area] 65 mL/min/{1.73_m2} Normal >60 [facility] Comment on above: Result Comment: mL/m in/1.73m2 CKD-EPI Creatinine Equation (2020) Performed By: #### L 500.2500, L100.0100, L501.4021 ####[facility] [address] [place], [address] Glucose [Mass/Vol] 148 mg/dL High 70-99 [facility] Comment on above: Performed By: #### L 500.2500, L100.0100, L501.4021 ####[facility] [address] [place], [address] Potassium [Moles/Vol] 4.1 mmol/L Normal 3.3-5.1 [facility] Comment on above: Performed By: #### L 500.2500, L100.0100, L501.4021 ####[facility] [address] [place], [address] Sodium [Moles/Vol] 135 mmol/L Normal 133-145 [facility] Comment on above: Performed By: #### L 500.2500, L100.0100, L501.4021 ####[facility] [address] [place], [address] Urea nitrogen [Mass/Vol] 19 mg/dL Normal 4-19 [facility] Comment on above: Performed By: #### L 500.2500, L100.0100, L501.4021 ####[facility] [address] [place], [address] CBC W/Diff, Automatedon 11-0 -2024 Absolute Neut Normal 2.0-7.7 [facility] Comment on above: Order Comment: Comme nts: If not done in prior 24 hours Result Comment: DUPL ICATE ORDER, CBCD DONE IN PRIOR 24 HOURS. SPOKE WITH Trudy NELSON RN TO VERIFY Performed By: #### L 300.4310, L300.3900, L100.0100 #### [facility] [address] [place], [address] HCT Normal 40-54 [facility] Comment on above: Order Comment: Comme nts: If not done in prior 24 hours Result Comment: DUPL ICATE ORDER, CBCD DONE IN PRIOR 24 HOURS. SPOKE WITH Trudy NELSON RN TO VERIFY Performed By: #### L 300.4310, L300.3900, L100.0100 #### [facility] [address] [place], [address] HGB Normal 13.0-16.5 [facility] Comment on above: Order Comment: Comme nts: If not done in prior 24 hours Result Comment: DUPL ICATE ORDER, CBCD DONE IN PRIOR 24 HOURS. SPOKE WITH Trudy NELSON RN TO VERIFY Performed By: #### L 300.4310, L300.3900, L100.0100 #### [facility] [address] [place], [address] MCH Normal 27.0-32.0 [facility] Comment on above: Order Comment: Comme nts: If not done in prior 24 hours Result Comment: DUPL ICATE ORDER, CBCD DONE IN PRIOR 24 HOURS. SPOKE WITH Trudy NELSON RN TO VERIFY Performed By: #### L 300.4310, L300.3900, L100.0100 #### [facility] [address] [place], [address] MCHC Normal 32-36 [facility] Comment on above: Order Comment: Comme nts: If not done in prior 24 hours Result Comment: DUPL ICATE ORDER, CBCD DONE IN PRIOR 24 HOURS. SPOKE WITH Trudy NELSON RN TO VERIFY Performed By: #### L 300.4310, L300.3900, L100.0100 #### [facility] [address] [place], [address] MCV Normal 80-94 [facility] Comment on above: Order Comment: Comme nts: If not done in prior 24 hours Result Comment: DUPL ICATE ORDER, CBCD DONE IN PRIOR 24 HOURS. SPOKE WITH Trudy NELSON RN TO VERIFY Performed By: #### L 300.4310, L300.3900, L100.0100 #### [facility] [address] [place], [address] NEUT% Normal 47-70 [facility] Comment on above: Order Comment: Comme nts: If not done in prior 24 hours Result Comment: DUPL ICATE ORDER, CBCD DONE IN PRIOR 24 HOURS. SPOKE WITH Trudy NELSON RN TO VERIFY Performed By: #### L 300.4310, L300.3900, L100.0100 #### [facility] [address] [place], [address] PLT Normal 150-450 [facility] Comment on above: Order Comment: Comme nts: If not done in prior 24 hours Result Comment: DUPL ICATE ORDER, CBCD DONE IN PRIOR 24 HOURS. SPOKE WITH L NELSON RN TO VERIFY Performed By: #### L 300.4310, L300.3900, L100.0100 #### [facility] [address] [place], [address] RBC Normal 4.6-6.2 [facility] Comment on above: Order Comment: Comme nts: If not done in prior 24 hours Result Comment: DUPL ICATE ORDER, CBCD DONE IN PRIOR 24 HOURS. SPOKE WITH Trudy NELSON RN TO VERIFY Performed By: #### L 300.4310, L300.3900, L100.0100 #### [facility] [address] [place], [address] RDW CV Normal 11.6-14.6 [facility] Comment on above: Order Comment: Comme nts: If not done in prior 24 hours Result Comment: DUPL ICATE ORDER, CBCD DONE IN PRIOR 24 HOURS. SPOKE WITH Trudy NELSON RN TO VERIFY Performed By: #### L 300.4310, L300.3900, L100.0100 #### [facility] [address] [place], [address] RDW SD Normal 35.1-43.9 [facility] Comment on above: Order Comment: Comme nts: If not done in prior 24 hours Result Comment: DUPL ICATE ORDER, CBCD DONE IN PRIOR 24 HOURS. SPOKE WITH Trudy NELSON RN TO VERIFY Performed By: #### L 300.4310, L300.3900, L100.0100 #### [facility] [address] [place], [address] WBC Normal 4.4-11.0 [facility] Comment on above: Order Comment: Comme nts: If not done in prior 24 hours Result Comment: DUPL ICATE ORDER, CBCD DONE IN PRIOR 24 HOURS. SPOKE WITH Trudy NELSON RN TO VERIFY Performed By: #### L 300.4310, L300.3900, L100.0100 #### [facility] [address] [place], [address] Absolute Lymph 1.59 X10 3/uL Normal 0.83-4.51 [facility] Comment on above: Performed By: #### L 500.2500, L100.0100, L501.4021 #### [facility] [address] [place], [address] Absolute Neut 6.8 X10 3/uL Normal 2.0-7.7 [facility] Comment on above: Performed By: #### L 500.2500, L100.0100, L501.4021 #### [facility] [address] [place], [address] Basophils/100 WBC (Bld) 0.5 % Normal 0-1 [facility] Comment on above: Performed By: #### L 500.2500, L100.0100, L501.4021 #### [facility] [address] [place], [address] Eosinophils/100 WBC (Bld) 1.7 % Normal 0-5 [facility] Comment on above: Performed By: #### L 500.2500, L100.0100, L501.4021 #### [facility] [address] [place], [address] Erythrocyte distribution width (RBC) [Ratio] 12.2 % Normal 11.6-14.6 [facility] Comment on above: Performed By: #### L 500.2500, L100.0100, L501.4021 #### [facility] [address] [place], [address] Hematocrit (Bld) [Volume fraction] 43.4 % Normal 40-54 [facility] Comment on above: Performed By: #### L 500.2500, L100.0100, L501.4021 #### [facility] [address] [place], [address] Hemoglobin (Bld) [Mass/Vol] 14.4 g/dL Normal 13.0-16.5 [facility] Comment on above: Performed By: #### L 500.2500, L100.0100, L501.4021 #### [facility] [address] [place], [address] IG% 0.300 Normal 0.0-0.9 [facility] Comment on above: Result Comment: IG% - Immature Granulocytes (promyelocytes, myelocytes and metamyelocytes) > 1% indicates that a LEFT SHIFT is Present. Performed By: #### L 500.2500, L100.0100, L501.4021 #### [facility] [address] [place], [address] Lymphocytes/100 WBC (Bld) 17.2 % Low 19-41 [facility] [facility] Comment on above: Performed By: #### L 500.2500, L100.0100, L501.4021 #### [facility] [address] [place], [address] MCH (RBC) [Entitic mass] 31.0 pg Normal 27.0-32.0 [facility] Comment on above: Performed By: #### L 500.2500, L100.0100, L501.4021 #### [facility] [address] [place], [address] MCHC (RBC) [Mass/Vol] 33.2 g/dL Normal 32-36 [facility] Comment on above: Performed By: #### L 500.2500, L100.0100, L501.4021 #### [facility] [address] [place], [address] MCV (RBC) [Entitic vol] 93.3 fL Normal 80-94 [facility] Comment on above: Performed By: #### L 500.2500, L100.0100, L501.4021 #### [facility] [address] [place], [address] Monocytes/100 WBC (Bld) 6.5 % Normal 0-10 [facility] Comment on above: Performed By: #### L 500.2500, L100.0100, L501.4021 #### [facility] [address] [place], [address] Neutrophils/100 WBC (Bld) 73.8 % High 47-70 [facility] Comment on above: Performed By: #### L 500.2500, L100.0100, L501.4021 #### [facility] [address] [place], [address] Nucleated RBC (Bld) [#/Vol] 0 10*3/uL Normal 0-5 [facility] Comment on above: Performed By: #### L 500.2500, L100.0100, L501.4021 #### [facility] [address] [place], [address] Platelet mean volume (Bld) [Entitic vol] 9.8 fL Normal 6.2-12.0 [facility] Comment on above: Performed By: #### L 500.2500, L100.0100, L501.4021 #### [facility] [address] [place], [address] Platelets (Bld) [#/Vol] 225 10*3/uL Normal 150-450 [facility] Comment on above: Performed By: #### L 500.2500, L100.0100, L501.4021 #### [facility] [address] [place], [address] RBC (Bld) [#/Vol] 4.65 10*6/uL Normal 4.6-6.2 [facility] Comment on above: Performed By: #### L 500.2500, L100.0100, L501.4021 #### [facility] [address] [place], [address] RDW SD 42.0 fl Normal 35.1-43.9 [facility] Comment on above: Performed By: #### L 500.2500, L100.0100, L501.4021 #### [facility] [address] [place], [address] WBC (Bld) [#/Vol] 9.3 10*3/uL Normal 4.4-11.0 [facility] Comment on above: Performed By: #### L 500.2500, L100.0100, L501.4021 #### [facility] [address] [place], [address] Cardiac Cath Diagnosticon Cardiac Cath Diagnostic [facility] Imaging Services [address] [facility] [place] [address] Cardiac Cath Diagnostic MR#: [id number] Acct: [id number] Name: ELSA PALACIO Rep #: [id number] : 1940 85 From: Augustine Moy MD PCP: Dr. Jeremias Damico MD Status:ADM IN Patient Name: ELSA PALACIO Study Date: 02/24/2025 Performing: Sravan Moy MD Ht: 70 inches 177.8 cm : 1940 Wt: 164.2 lbs 74.39 kg Age: 85 Gender: male BSA: 1.92 PROCEDURE(S) PERFORMED DC01-(07246)LHC/COR/L V CLINICAL PROFILE AND INDICATIONS Indications: ACS <= 24 hrs, NSTEMI Heart Failure: None CONCLUSIONS Severe multivessel coronary artery disease. No aortic stenosis. RECOMMENDATIONS Surgery consult for coronary revascularization DESCRIPTION OF PROCEDURE The patient arrived to the procedure lab. The risks and benefits of the procedure as well as a full description of our services here and current unavailability of surgical backup were fully explained to the patient and/or their significant other prior to the catheterization. The Timeout was completed, verifying the correct patient and procedure. The patient's procedural site was prepped and draped in the usual fashion. Local anesthetic was given subcutaneously to right radial region with Lidocaine 2%. Using a modified Seldinger technique, arterial access was obtained via the right radial artery, a 6Fr sheath was inserted. Left Coronary Artery selective angiography was performed in multiple views using a 5 Fr. JL3.5 catheter. LV to AO pullback pressures were then recorded. Right Coronary Artery selective angiography was then performed in multiple views using a 5 Fr. JR 4 catheter.The arterial sheath was pulled and a TR Band was applied for hemostasis. 12 cc of air CORONARY ANGIOGRAPHY DOMINANCE: Right Dominant LEFT MAIN: Mild luminal irregularities LEFT ANTERIOR DESCENDING ARTERY: Moderate to severely diseased in the proximal portion and in the midportion immediately after the origin of a large septal branch. There is a 90% stenosis in the mid to distal portion. DIAGONAL 1: Proximal - Severe diffuse disease DIAGONAL 2: Proximal - Severe diffuse disease CIRCUMFLEX ARTERY: PROX CIRC: 95% stenosis DISTAL CIRC: There is severe diffuse disease in the mid to distal circumflex. OM 2: Proximal - 85 % Stenosis (OM1 is a small vessel) RIGHT CORONARY ARTERY: Severe diffuse disease in the mid RCA. 80% stenosis in the distal RCA COMPLICATIONS No Complications PROCEDURE MEDICATIONS Fentanyl 50 mcg IV Versed 1 mg IV Oxygen: 2 L/min via nasal cannula Heparin 25,000u / 250ml D5W @ 0 u/hr discontinued 02/24/2025 10:50:18 Heparin given IA 02/24/2025 11:28:10 Verapamil 2.5mg, Ntg 100mcgs, 3000 units of Heparin given IA 02/24/2025 11:28:10 SUMMARY OF HEMODYNAMIC DATA Time AIR REST ECG 11:08:05 AO 110/71 (91) SA 11:30:31 LV 134/-3, 12 11:39:46 LV 130/2, 10 11:39:52 LVp 144/3, 12 11:40:12 AOp 139/72 (100) 11:40:17 Signed By Sravan Moy MD On 02/24/2025 12:26:42 Sravan Moy MD 02/24/25 1227 Date Augustine Moy MD Cosigner Signature: Date (if indicated) CC: Dr. Anibal Shore MD; Dr. Jeremias Damico MD; Dr. Augustine Moy MD Date Dictated: 02/24/25 1125 Date Transcribed: 02/24/25 1226 Fire Extinguisher Tester: NN Signed Normal [facility] Chest 1 View (Portable)on Chest 1 View (Portable) [facility] Imaging Services [address] [place] [address] ( Chest 1 View (Portable) MR#: [id number] Acct: [id number] Name: ELSA PALACIO Rep #: [id number] : 1940 M 85 From: Elvis Jarvis MD PCP: Dr. Jeremias Damico MD Status: REG ER Study: Chest 1 View (Portable) Date of Exam: 02/24/25 Exam# [id number] Ordering Dr: Salomon Marquez MD PROCEDURE: CHEST 1 VIEW (PORTABLE) 02/24/2025 REASON FOR EXAM: CHEST PAIN TECHNIQUE: Frontal view of the chest. COMPARISON: None FINDINGS: Hardware: EKG leads Heart: The heart size is normal. The aorta is atherosclerotic. Lungs: The lungs are clear. Bones: The bones are unremarkable. RAD/Chest 1 View (Portable) IMPRESSION: No acute cardiopulmonary process. Reading Location: [id number] CC: Dr. Salomon Marquez MD; Dr. Jeremias Damico MD Fire Extinguisher Tester: Signed Normal [facility] Consultation - Cardiologyon 02-24-2025 Consultation - Cardiology [facility] Medical Records Department [address] [place] [address] Consultation - Cardiology 02/24/25 0957 MR#: [id number] Acct: [id number] Name: ELSA PALACIO Rep #: [id number] : 1940 85 From: Shawn Chau MD PCP: Dr. 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 It started out with moderate level of activity occurring with shortness of breath and chest tightness. It resolved within about 10 minutes of stopping and resting. It is now occurring with minimal activity and still resolves after about 10 minutes of rest. ECG does not show any acute ischemic changes however his troponin is elevated 218 on the initial set. Currently the patient is pain-free. Given the patient's elevated troponin and his classic symptoms of accelerating angina I would recommend the patient undergo a left heart catheterization to define his coronary anatomy. I discussed the procedure risk/benefit and alternatives with the patient and his they voiced understanding and agreed to proceed. Dr. Moy will be performing the procedure. (2) Hypertension: QUALIFIERS: Hypertension type: primary hypertension Qualified Code(s): I10 - Essential (primary) hypertension PLAN: Patient's blood pressure is well-controlled on his current verapamil dose. However, pending the outcome of the catheterization we may recommend alternative therapy to the negative inotropic calcium channel with medication. PLAN: Plan 1. Recommend urgent left heart catheterization. Dr. Moy to perform. 2. Will address further recommendations pending outcome of the catheterization. HPI Consult Data Date of Consult: 02/24/25 HPI Narrative Reason for Consultation: Accelerating angina consistent with acute coronary syndrome HPI Narrative: ELSA PALACIO, is a 85 M who presents a several day history of progressive anginal symptoms. The patient routinely walks about 4 blocks a day. He noticed about 3 days ago that he could only walk 2 blocks and then he started to get shortness of breath with the right sided chest tightness. He stopped and rested and it went away he walked back home without incident. The next day he tried to cut his grass and he had to stop 3 times with his pushing his push more due to the symptoms with left sided discomfort and shortness of breath. It always went away after about 10 minutes of rest. This morning the patient had the same type of symptoms that occurred with minimal activity. It also resolved with rest. Currently the patient is pain-free in the emergency department. His initial troponin was 218 and his ECG shows minor nonspecific changes. He is in sinus rhythm. The patient has a past history of about 5 years ago through the [facility] been evaluated for dyspnea on exertion. The only thing that was ever found was he was deconditioned he did have a negative stress test at that point in time. He was started his walking program and was doing fine until about 3-4 days ago. The patient has no family history of coronary disease he does have a longstanding history of hypertension and is on verapamil for that. He did have a recent change from short acting to long- acting verapamil. The patient does not have a known history of hypertension related cardiomyopathy. And he has been very active. He appears to be in great shape for his 85 years of age. His renal function is normal his CBC is normal he does have an elevated glucose but he ate breakfast at about 0700 hrs. this morning. The patient is not have a history of diabetes he does not smoke he is not hyperlipidemic to his knowledge. His only risk factor is his hypertension. The patient is on thyroid replacement therapy. He follows up through Dr. Milind Ty's office at the [facility] for primary services. The patient is not allergic to iodine. [facility] Medical History (Updated 02/24/25 @ 10:[address] Shawn Chau MD) Hypertension Home Medications ???Medication ???Instructions ???Recorded ???Last Taken ???Type levothyroxine 112 mcg tablet 112 mcg PO DAILY 11/04/19 07/14/23 History tamsulosin 0.4 mg capsule 0.4 mg PO QHS 11/04/19 07/14/23 Hi story verapamil 80 mg tablet 2 tab PO QHS 11/04/19 Unknown Hist ory Allergy/AdvReac Type Severity Reaction Status Date / Time Penicillins Allergy NEEDS Verified 02/24/25 07:51 FOLLOW-UP fermented products Allergy NEEDS Uncoded 11/04/19 10:09 FOLLOW-UP Social History Smoking Status: Former smoker ROS Constitutional Constitutional: Reports as per HPI Eyes Eyes: Reports systems reviewed and no addt'l complaints, except as documented ENT HEENT: Reports (more content not included)... Normal [facility] Echo Completeon 02-24-2025 Echo Complete [facility] Cardiovascular Services [address] [place] [address] Echo Complete 02/24/25 1318 MR#: [id number] Acct: [id number] Name: ELSA PALACIO Rep #: [id number] : 1940 85 From: Donna Ndiaye MD Attending Dr: Dr. Anibal Shore MD Status: ADM IN Ordering Dr: Anibal Shore MD Date: 02/24/25 Location: [facility] Sex: M C Admitted: 02/24/25 Reason For Study Reason For Study: CHEST PAIN Procedure This was a 2D Doppler, Color Flow transthoracic echocardiogram. Exam performed portable in patient room. Left Ventricle Normal LV size. Mild concentric left ventricular hypertrophy. The left ventricular ejection fraction is 65 %. Stage 1 diastolic dysfunction. Right Ventricle Normal right ventricle. Atria The left atrium is moderately enlarged. Normal right atrium. Mitral Valve Moderate-Severe (3+) mitral valve insufficiency. Tricuspid Valve Mild (1+) tricuspid valve insufficiency. Normal pulmonary artery pressure. Aortic Valve Moderately thickened aortic valve. Aortic valve sclerosis without stenosis. Mild aortic valve regurgitation. Pulmonic Valve The pulmonic valve is not well visualized. Great Vessels Normal sized aortic root. Pericardium/Pleural Small loculated pericardial effusion anteriorly. MMode/2D Measurements Calculations LVIDd: 5.1 cm IVSd: 1.1 cm Ao root diam: 3.8 cm LVIDs: 3.8 cm LVPWd: 1.2 cm RVDd: 4.0 cm FS: 24.6 % LAV(MOD-sp4): 77.4 ml LVAd ap4: 37.0 cm2 LVAd ap2: 31.7 cm2 LVLd ap4: 8.6 cm LVLd ap2: 8.3 cm EDV(MOD-sp4): 132.1 ml EDV(MOD-sp2): 102.3 ml EDV(sp4-el): 135.5 ml EDV(sp2-el): 102.6 ml LVAs ap4: 25.8 cm2 LVAs ap2: 22.7 cm2 LVLs ap4: 7.9 cm LVLs ap2: 7.7 cm ESV(MOD-sp4): 74.2 ml ESV(MOD-sp2): 58.1 ml ESV(sp4-el): 71.4 ml ESV(sp2-el): 56.7 ml EF(MOD-sp4): 43.8 % EF(MOD-sp2): 43.2 % EF(sp4-el): 47.3 % SV(MOD-sp4): 57.8 ml SV(MOD-sp2): 44.2 ml SV(sp4-el): 64.1 ml SI(MOD-sp4): 29.6 ml/m2 SI(MOD-sp2): 22.6 ml/m2 LA A4 area: 21.9 cm2 LA dimension(2D): 4.6 cm RA A4 area: 17.3 cm2 TAPSE: 2.2 cm Time Measurements MV dec time: 0.29 sec Doppler Measurements Calculations MV E max kavin: 57.7 cm/sec Lat Peak E' Kavin: 5.2 cm/sec Med Peak E' Kavin: 5.6 cm/sec MV A max kavin: 84.6 cm/sec E/E' lat: 11.0 E/E' med: 10.4 MV E/A: 0.68 MV V2 max: 86.7 cm/sec Ao V2 max: 135.2 cm/sec AI max kavin: 457.0 cm/sec MV max P.0 mmHg Ao max P.3 mmHg AI max P.6 mmHg MV V2 mean: 45.5 cm/sec Ao V2 mean: 83.7 cm/sec MV mean P.92 mmHg Ao mean P.2 mmHg AI dec slope: 217.4 cm/sec2 MV V2 VTI: 22.7 cm Ao V2 VTI: 22.6 cm AI P1/2t: 615.8 msec AV (velocity ratio): 0.72 LV V1 max: 85.1 cm/sec MR max kavin: 663.5 cm/sec PA V2 max: 106.0 cm/sec LV V1 max P.9 mmHg MR max P.8 mmHg LV V1 mean P.3 mmHg MR mean kavin: 510.1 cm/sec LV V1 mean: 53.3 cm/sec MR mean P.8 mmHg LV V1 VTI: 16.3 cm MR VTI: 220.8 cm PI end-d kavin: 105.2 cm/sec TR max kavin: 239.1 cm/sec TR max P.9 mmHg ECHO/Echo Complete Interpretation Summary Mild concentric left ventricular hypertrophy. The left ventricular ejection fraction is 65 %. Stage 1 diastolic dysfunction. The left atrium is moderately enlarged. Moderate-Severe (3+) mitral valve insufficiency. Mild (1+) tricuspid valve insufficiency. Moderately thickened aortic valve. Aortic valve sclerosis without stenosis. Mild aortic valve regurgitation. Small loculated pericardial effusion anteriorly. Ordering Physician: Anibal Shore Referring Physician: Jeremias Damico Performed By: Santino ANGULO [facility] Student 02/24/25 1543 Date Donna Ndiaye MD CC: Dr. Anibal Shore MD; Dr. Jeremias Damico MD; Dr. 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 Jeremias Damico MD Status:ADM IN Location: [place] [address] HPI History of Present Illness Chief Complaint: Shortness of Breath Informant: patient Narrative Narrative: Patient is an 85-year-old male with a history of HTN presenting with dyspnea and chest tightness on exertion for the past 3-4 days. Resolves with rest. - Reports onset of symptoms yesterday while walking; typically walks 4 blocks, but experienced dyspnea and right-sided chest tightness after 2 blocks, prompting him to stop. - Symptoms worsened in the afternoon with more severe pain and difficulty taking deep breaths; pain described as a tightness in the right upper chest. - Symptoms resolve within 5-10 minutes of rest. - This morning, experienced similar symptoms after walking 1 block. - Denies diaphoresis, syncope, abdominal pain, or emesis. - Recent medication change on Saturday: increased verapamil from 80 mg to 120 mg ER for HTN management; has a 25-year history of verapamil use for headaches, but this is the first time using the ER formulation. - Consulted with a physician yesterday regarding the possibility of medication-related symptoms; was advised that symptoms are unlikely related to the medication change. - No known cardiac history; last stress test was 4-6 years ago, with no reported abnormalities. [facility] Medical History Hypertension Home Medications ???Medication ???Instructions ???Recorded ???Last Taken ???Type tamsulosin 0.4 mg capsule 0.8 mg PO QHS prostate 11/04/19 History aspirin 81 mg tablet,delayed 81 mg PO BREAKFAST #0 tabs 5 Unknown Rx release atorvastatin 40 mg tablet 40 mg PO QHS #0 tabs 02/24/25 Unkn own Rx finasteride 5 mg tablet 5 mg PO QHS prostate 02/24/2508/14 History levothyroxine 100 mcg tablet 100 mcg PO DAILY thyroid 02/24/25 02/24/25 History (Synthroid) losartan 100 mg tablet 100 mg PO QHS BP 02/24/25 02/23/25 History melatonin 3 mg capsule 9 mg PO QHS sleep 02/24/25 5 History metoprolol tartrate 25 mg tablet 25 mg PO BID #0 tabs 02/24/25 Unkn own Rx multivit,Ca,min-iron 8 mg-folic 1 tab PO DAILY supplement 02/24/25 02/24/25 History acid 200 mcg-lycopene 600 mcg tablet (Men's Daily Multivitamin) verapamil 120 mg tablet,extended 120 mg PO QHS bp 02/24/25 Unknown History release Allergy/AdvReac Type Severity Reaction Status Date / Time Penicillins Allergy NEEDS Verified 02/24/25 07:51 FOLLOW-UP fermented products Allergy NEEDS Uncoded 11/04/19 10:09 FOLLOW-UP Surgical History (Updated 02/24/25 @ 12:51 by Sherie Izaguirre) History of meniscectomy of left knee Social History Smoking Status: Former smoker ROS ROS ED Constitutional Constitutional ED: Denies chills or fever(s) Eyes Eyes: Denies change in vision or diplopia ENT ENT ED: Denies rhinorrhea or sore throat Cardiovascular Cardiovascular: Reports as per HPI and chest pain; Denies orthopnea, palpitations or radiating jaw, neck or arm pain Respiratory/Chest Respiratory/Chest: Reports dyspnea on exertion; Denies cough or orthopnea Gastrointestinal Gastrointestinal: Denies abdominal pain, diarrhea, nausea or vomiting Genitourinary Genitourinary ED: Denies dysuria or hematuria Musculoskeletal Musculoskeletal: Denies back pain or neck pain Integumentary Denies abscess or rash Neurologic Neurologic: Denies headache(s), paresthesias or weakness Psychiatric Psychiatric: Denies anxiety or suicidal thoughts EXAM Physical Exam Const Vital Signs: 02/24/25 07:51 02/24/25 08:08 02/24/25 08:30 Temperature 98.9 F Temperature Source Oral Pulse Rate 72 Respiratory Rate 18 Respiratory Effort Normal Respiratory Pattern Normal Blood Pressure 136/87 H Blood Pressure Mean 103 Pulse Ox 99 Oxygen Delivery Method Room Air Room Air Room Air 02/24/25 08:51 02/24/25 09:00 Temperature Temperature Source Pulse Rate 66 66 Respiratory Rate 18 18 Respiratory Effort Respiratory Pattern Blood Pressure 123/66 H 123/66 H Blood Pressure Mean 85 85 Pulse Ox 99 99 Oxygen Delivery Method Positive well nourished and well developed General Appearance ED: well developed and NAD HEENT Reports moist mucous membranes normocephalic and atraumatic Eyes PERRL and EOMs intact bilaterally Neck full ROM and supple Resp normal respiratory effort and clear to auscultation bilaterally Cardio regular rate, (more content not included)... Normal [facility] H AND P Exam - Hospitaliston 02-24-2025 H&P Exam - Hospitalist [facility] Medical Records Department [address] [place] [address] H P Exam - Hospitalist 02/24/25 0946 MR#: [id number] Acct: [id number] Name: ELSA PALACIO Rep #: [id number] : 1940 85 From: Anibal Shore MD PCP: Dr. Jeremias Damico MD Status:ADM IN Location: [address] HPI - General General Date of Admission: 02/24/25 Date of Service: 02/24/25 Chief Complaint: Chest pain HPI Narrative ELSA PALACIO, is a 85 M who presents with chest discomfort and shortness of breath. Per patient he was in usual state of health a day prior to his admission when he noticed chest pain which he described as discomfort across the chest. Patient stated he has a high tolerance for pain therefore did not pay attention to it much. He however did notice increasing shortness of breath on the morning of his regurgitation with minimal activity he therefore made a decision to present to the ED. Patient was found to have elevated troponin in the ED. An assessment of acute non-STEMI was made. Cardiology was consulted patient started on heparin [facility] Medical History (Updated 02/24/25 @ 10:[address] Shawn Chau MD) Hypertension Home Medications ???Medication ???Instructions ???Recorded ???Last Taken ???Type levothyroxine 112 mcg tablet 112 mcg PO DAILY 11/04/19 07/14/23 History tamsulosin 0.4 mg capsule 0.4 mg PO QHS 11/04/19 07/14/23 Hi story verapamil 80 mg tablet 2 tab PO QHS 11/04/19 Unknown Hist ory Allergy/AdvReac Type Severity Reaction Status Date / Time Penicillins Allergy NEEDS Verified 02/24/25 07:51 FOLLOW-UP fermented products Allergy NEEDS Uncoded 11/04/19 10:09 FOLLOW-UP Social History Smoking Status: Former smoker ROS ROS Narrative GENERAL: denies fever, chills, night sweats, HEENT: denies headache, sinus congestion, or drainage, dysphagia RESPIRATORY: shortness of breath, dyspnea on exertion CARDIAC: chest pain, GASTROINTESTINAL: denies abdominal pain, nausea, GENITOURINARY: denies dysuria, urgency, frequency, EXTREMITY: denies swelling MUSCULOSKELETAL: denies current joint pain or tenderness NEUROLOGIC: denies focal numbness, weakness, tingling HEMATOLOGIC: denies easy bruising and/or hemorrhage INTEGUMENT: denies rashes PSYCHIATRIC: denies suicidal or homicidal ideation Vital Signs Vital Signs Vital Signs: 02/24/25 07:51 02/24/25 08:08 02/24/25 08:30 Temperature 98.9 F Temperature Source Oral Pulse Rate 72 Respiratory Rate 18 Respiratory Effort Normal Respiratory Pattern Normal Blood Pressure 136/87 H Blood Pressure Mean 103 Pulse Ox 99 Oxygen Delivery Method Room Air Room Air Room Air 02/24/25 08:51 02/24/25 09:00 Temperature Temperature Source Pulse Rate 66 66 Respiratory Rate 18 18 Respiratory Effort Respiratory Pattern Blood Pressure 123/66 H 123/66 H Blood Pressure Mean 85 85 Pulse Ox 99 99 Oxygen Delivery Method Weight Weight: 74.389 kg Body Mass Index (BMI) 23.5 Physical Exam Narrative GENERAL: cooperative HEENT: Atraumatic; normocephalic EYES; Anicteric, Normal Conjunctiva NECK; supple, normal thyroid, RESPIRATORY: Diminished to auscultation CARDIOVASCULAR: Regular S1 S2, GI: soft, normoactive bowel sounds, : No Renal angle tenderness; EXTREMITIES: No edema, no clubbing, MUSCULOSKELETAL: no muscle wasting NEURO: Awake; no lateralizing signs. SKIN: No Rash PSYCH; Flat affect Results Lab / Micro Data 02/24/25 08:30 02/24/25 08:30 Labs: Laboratory Results - last 24 hr 02/24/25 08:30: WBC 9.3, RBC 4.65, Hgb 14.4, Hct 43.4, MCV 93.3, MCH 31.0, MCHC 33.2, RDW Std Deviation 42.0, RDW Coeff of Charles 12.2, Plt Count 225, MPV 9.8, Immature Gran % (Auto) 0.300, Neut % (Auto) 73.8 H, Lymph % (Auto) 17.2 L, Coal % (Auto) 6.5, Eos % (Auto) 1.7, Baso % (Auto) 0.5, Absolute Neuts (auto) 6.8, Absolute Lymphs (auto) 1.59, Nucleated RBC % 0, Sodium 135, Potassium 4.1, Chloride 100, Carbon Dioxide 24.9, Anion Gap 9, BUN 19, Creatinine 1.11, Estim Creat Clear Calc 50.24, Est GFR (MDRD) Non-Af 65, BUN/Creatinine Ratio 16.7, Glucose 148 H, Calcium 9.4, Troponin T High Sens 218 H* Rhythm Strip Rhythm Strip: Sinus Rhythm Rate: 75 Ectopy: PAC(s) Imaging Radiology Impression Chest X-Ray 02/24/25 08:30 IMPRESSION: No acute cardiopulmonary process. Reading Location: [facility] Assessment Plan Assessment/Plan (1) ACS (acute coronary syndrome): PLAN: Plan Patient is an 85-year-old gentleman presenting with exertional chest pain with elevated troponin 1. Acute non-STEMI ??? Patient admitted to monitored bed treatment initiated per protoc (more content not included)... Normal [facility] L501.4021on 02-24-2025 Trop T High Sen 218 ng/L Invalid Interpretation Code <=22 [facility] Comment on above: Result Comment: Crit ical Result(s) Called at: 0905 02/24/25 by: NAN LONG??Results read back by same. Performed By: #### L 500.2500, L100.0100, L501.4021 #### [facility] [address] [place], [address] Partial Thromboplast Timeon 02-24-2025 aPTT Coag (Bld) [Time] 27.5 s Normal 24.1-36.2 [facility] Comment on above: Order Comment: Comme nts: If not done in prior 24 hours Performed By: #### L 300.4310, L300.3900, L100.0100 #### [facility] [address] [place], [address] Prothrombin Time w/INRon INR Coag (PPP) [Relative time] 1.0 {INR} Normal [facility] Comment on above: Order Comment: Comme nts: If not done in prior 24 hours Performed By: #### L 300.4310, L300.3900, L100.0100 #### [facility] [address] [place], [address] PT Coag (PPP) [Time] 13.4 s Normal 11.7-14.9 [facility] Comment on above: Order Comment: Comme nts: If not done in prior 24 hours Performed By: #### L 300.4310, L300.3900, L100.0100 #### [facility] [address] [place], [address] Troponin T HS 2 HRon 025 Trop T High Sen 243 ng/L Invalid Interpretation Code <=22 [facility] Comment on above: Result Comment: Crit ical Result(s) Called at:11202/24/25 by:??LTAYLOR Results read back by same. Performed By: #### L 499.0042 ####[facility] [id number] [place], [address] Troponin T HS 4 HRon 025 Trop T High Sen 252 ng/L Invalid Interpretation Code <=22 [facility] Comment on above: Result Comment: Crit ical Result(s) Called at: 1251 02/24/25 by: HARPER??Results read back by same. Performed By: #### L 499.0043 ####[facility] [id number] [place], [address] [facility] 02-23-2025 [facility] Telephone (FAMPWS) HAKEEMELSA ([id number]) 1940 M Date Time Provider Department 02/23/25 JEREMIAS DAMICO [facility] During your visit today, we recorded the following information about you: Marvin Torres, RN 02/23/2025 2:37 PM Signed Pt reports pcp increased his verapamil from 80 mg daily to 120 mg daily. The 120 mg is verapamil SR. Reports he has taken verapamil for years but has never taken the SR before. Reports today he was taking his daily 2 mile walk and couldn't get a deep breath, had tightness in chest and throat. That went away and he was mowing the yard and had another episode where he could not get a deep breath, with tightness in chest and throat, but this time it was worse. No other s/s. Reports his BP was 132/72 after mowing. Reports he is sitting right now and feels fine. Asking pcp if he should be concerned about these symptoms? Jeremias Damico MD 02/23/2025 2:45 PM Signed I would recommend ER evaluation for his symptoms, with 2 episodes of chest tightness and Shortness of Breath with exertion. This would not be from the medication change. MD Paulo Hanley Kathryn, MA 02/23/2025 3:15 PM Signed Pt notified. Jessica Bates MA Allergies As of Date: 02/23/2025 Noted Allergy Reaction CHEESE (SEE VEGETABLE GUM) 01/29/2005 Comments: cluster headaches MILK CONTAINING PRODUCTS (DAIRY) 12/31/2023 5 - Intolerance MOLD 01/29/2005 Comments: cluster headaches PENICILLIN G 01/29/2005 Comments: cluster h/a POLLEN 01/29/2005 Comments: cluster headaches VINEGAR 01/29/2005 Comments: cluster headaches Date Reviewed: 02/16/2025 Reviewed by: Jessica Bates MA - Fully Assessed Reason for Visit: Medication Problem [65] Prescriptions as of 02/23/2025 - verapamil SR (CALAN SR) 120 mg CR tablet Take 1 tablet by mouth once daily. - levothyroxine (SYNTHROID) 100 mcg tablet Take 1 tablet by mouth once daily. - tamsulosin (FLOMAX) 0.4 mg Take 2 capsules by mouth once daily. - finasteride (PROSCAR) 5 mg tablet Take 1 tablet by mouth once daily. - losartan (COZAAR) 100 mg tablet Take 1 tablet by mouth once daily. - therapeutic multivitamin ORAL tablet Take by mouth once daily. - MELATONIN 3 MG TAB Take 6 mg by mouth daily at bedtime. - docusate sodium(LOPEZ LIQUI-GELS 100 MG CAP) Take by mouth once daily. 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] 01/15/2012 ED (erectile dysfunction) [N52.9] Episodic cluster headache, not intractable [G44*01/27/2015 Primary hypertension [I10] 10/13/2024 Encounter Status:Closed by JESSICA BATES on 02/23/25 [facility] CNOVon 02-16-2025 CNOV Office Visit (FAMPWS ) ELSA PALACIO ([id number]) 1940 M Date Time Provider Department 02/16/25 10:00 AM [facility] During your visit today, we recorded the following information about you: Pulse Respiration Blood pressure Weight 64/minute 16/minute 142/86 79.9 kg Jeremias Damico MD 02/16/2025 11:22 AM Signed Chief Complaint Patient presents with: Follow Up: 2 month follow up HPI Elsa Palacio is a 84 year old male who presents here today for 2 month follow up BP. No bowel, Gi, or urinary concerns. Follows with Urologist. Taking Flomax 0.4 mg 2 pills daily and Proscar 5 mg daily. Headaches: Stable. No longer needs to see his neurologist. HTN: No chest pains, dizziness, or Shortness of Breath. Checking BP at home and keeping log. Readings running around 127/98 to 152/95. Is taking Losartan 100 mg daily and restarted Verapamil 80 mg daily at last visit. Past medical history, appointments, medications, allergies reviewed. 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 Dr Jameson Diverticulosis of colon (without mention of hemorrhage) Dupuytren's contracture of both hands ED (erectile dysfunction) Hypothyroidism Migraine with aura, without mention of intractable migraine without mention of status migrainosus [facility], Dr Pirece Primary hypertension 10/13/2024 Previous Surgical History PAST SURGICAL HISTORY Procedure Laterality Date ARTHROSCOPY KNEE DIAGNOSTIC W/WO SYNOVIAL BX SPX ~1979 Arthroscopy, left knee COLONOSCOPY AND POLYPECTOMY 06/18/2001,04/10/00 Colonoscopy COLONOSCOPY FLX DX W/COLLJ SPEC WHEN PFRMD 07/09/07 repeat due 2012 COLONOSCOPY FLX DX W/COLLJ SPEC WHEN PFRMD 05/27/2012 no polyps, repeat due 2018 COLONOSCOPY FLX DX W/COLLJ SPEC WHEN PFRMD 01/20/2018 Colonoscopy COLONOSCOPY W/BIOPSY SINGLE/MULTIPLE 05/10/05 RAD RESECT TUMOR SOFT TISS NECK/ANT THORAX <5CM ~1970 BREAST TUMOR, left RELEASE PALM CONTRACTURE 01/15/2012 Right hand needle aponeurotomy Family History FAMILY HISTORY Problem Relation Age of Onset other (CHF) Mother OLD AGE Colon Cancer Father age 76 +/- Patient Allergies ALLERGIES Allergen Reactions Cheese (See Vegetab* cluster headaches Milk Containing Pro* Intolerance Mold cluster headaches Penicillin G cluster h/a Pollen cluster headaches Vinegar cluster headaches Current Medications Current Outpatient Medications on File Prior to Visit Medication Sig levothyroxine (SYNTHROID) 100 mcg tablet Take 1 tablet by mouth once daily. tamsulosin (FLOMAX) 0.4 mg Take 2 capsules by mouth once daily. finasteride (PROSCAR) 5 mg tablet Take 1 tablet by mouth once daily. verapamil 80 mg tablet Take 1 po at night losartan (COZAAR) 100 mg tablet Take 1 tablet by mouth once daily. therapeutic multivitamin ORAL tablet Take by mouth once daily. MELATONIN 3 MG TAB Take 6 mg by mouth daily at bedtime. docusate sodium([email or web address] LIQUI-GELS 100 MG CAP) Take by mouth once daily. No current facility-administered medications on file prior to visit. Social History SOCIAL HISTORY[1] EXAM: BP 142/86 Pulse 64 Resp 16 Wt 79.9 kg (176 lb 2.4 oz) BMI 24.94 kg/m? General Appearance: Well appearing, alert, in no acute distress, well-hydrated, well nourished.. Lungs: Lungs clear to auscultation. No wheezing, rhonchi, rales.. Heart: RRR without murmur, gallop, or rubs. No ectopy. Health Maintenance List Advance Directive Discussion due on 04/22/2024 Influenza Vaccine(1) due on 12/21/2024 Covid-19 Vaccine(2024- season) due on 12/21/2024 Depression Screening due on 01/23/2025 Anxiety Screening due on 01/23/2025 DTaP,Tdap,Td Vaccine(3 - Td or Tdap) due on 07/31/2027 Diabetes Screening due on 12/15/2027 RSV Vaccine Completed Medicare Advantage Annual Wellness Visit Completed Shingrix Vaccine Completed Pneumococcal Vaccine: 50+ Completed Colonoscopy Discontinued Data reviewed Home BP readings - range from 102-160/70s-90s ASSESSMENT/PLAN: 1. Primary hypertension - ICD9: 401.9, ICD10: I10 (primary diagnosis) - Improving control - Increase verapamil to 120 mg SR daily - Recommend home blood pressure monitoring, to bring results to next visit - Encouraged sodium restriction, DASH or Mediterranean diet - Recommend regular aerobic exercise 2. Need for influenza vaccination - ICD9: V04.81, ICD10: Z23 - INFLUENZA VACCINE, PRSV FREE, AGE 65+ YR, HIGH DOSE, TRIVALENT (FLUZONE HIGH-DOSE) 3. Need for vaccination - ICD9: V05.9, ICD10: Z23 - PFIZER-BIONTECH COVID-19 VACCINE AGE 12+ YR (COMIRNATY) Follow up in 3 months to check BP I agree with the Chief Complaint, ROS, and Past Histories independently gathered by the clinical direct support professional and the remaining scribed note accurately desc (more content not included)... Normal [facility] CNOVon 12-22-2024 CNOV Office Visit (UROLWS ) ELSA PALACIO ([id number]) 1940 M Date Time Provider Department 12/22/24 2:00 PM SHAQ BISHOP During your visit today, we recorded the following information about you: Leilani Archer LPN 12/22/2024 4:42 PM Signed Verified name and date of . CC Post Void Residual HPI: Elsa Palacio is a 84 year old male. The patient is here now for an appointment with MARTHA Martinez, [place], PA-COV. Procedure: Explained procedure to patient and verbalizes understanding. Performed a PVR. Patient urinated and instructed to empty bladder as much as possible just prior to having PVR done using bladder ultrasound scanner. Results of scan: 0 mL The patient tolerated the procedure well. Plan: Appointment with Shaq. Shaq Bishop PA-C 12/22/2024 4:42 PM Signed [facility] EST PATIENT CLINIC NOTE (M) Some elements copied from his previous note, which have been updated where appropriate, and all reflect current medical decision making from date of this visit. Note was generated by [employer] and edited as appropriate SERVICE DATE: December 22, 2024 NAME: Elsa Palacio GENDER: male CHIEF COMPLAINT: The patient is an 84-year-old male with benign prostatic hyperplasia, presenting for annual follow-up and medication refill for urinary symptoms. HISTORY OF PRESENT ILLNESS: The patient is an 84-year-old male with benign prostatic hyperplasia, presenting for annual follow-up and medication refill for urinary symptoms. BPH: - Last seen by urologist on 12/17. - Taking Proscar and Flomax; both refilled on 12/17. - Reports complete bladder emptying. - Denies any new urinary issues. > We discussed the common causes of urinary frequency and urgency, and restricting water intake In hopes to mitigate the need to urinate, we discussed how this behavior more often worsen the problem not improving it, > We discussed increasing daily water intake to 64-84 oz 7a -7p and try to reduce bladder irritants, caffeine, alcohol and acid foods and drink. > Bladder irritants handout available to patient. LABS: PSA (ng/mL) Date Value 12/29/2014 0.70 12/29/2013 0.78 Creatinine Date Value Ref Range Status 12/14/2024 1.13 0.73 - 1.22 mg/dL Final 01/20/2024 1.15 0.73 - 1.22 mg/dL Final 01/15/2023 1.17 0.73 - 1.22 mg/dL Final Testosterone (ng/dL) Date Value 06/28/2004 328 Hematocrit (%) Date Value 12/14/2024 44.3 01/20/2024 41.8 01/15/2023 43.4 01/13/2019 45.5 04/18/2015 44.8 03/08/2014 45.1 PSA (ng/mL) Date Value 12/29/2014 0.70 12/29/2013 0.78 MEDICATIONS: levothyroxine (SYNTHROID) 100 mcg tablet Take 1 tablet by mouth once daily. tamsulosin (FLOMAX) 0.4 mg Take 2 capsules by mouth once daily. finasteride (PROSCAR) 5 mg tablet Take 1 tablet by mouth once daily. verapamil 80 mg tablet Take 1 po at night losartan (COZAAR) 100 mg tablet Take 1 tablet by mouth once daily. therapeutic multivitamin ORAL tablet Take by mouth once daily. MELATONIN 3 MG TAB Take 6 mg by mouth daily at bedtime. docusate sodium([email or web address] LIQUI-GELS 100 MG CAP) Take by mouth once daily. 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 Oral cavity, oropharynx clear Neck: Supple, no mass Breast: Deferred Respiratory: Clear to auscultation, bilaterally Cardiovascular: Regular rate and rhythm, no murmurs, rubs, or gallops Abdomen: Soft, non-tender, non-distended, no masses palpable, no hepatosplenomegaly, normal bowel sounds Genitourinary: Deferred MSK: Back is non-tender Extremities: No clubbing, cyanosis, or edema PROBLEM LIST REVIEW: Yes LABS: Results for orders placed or performed in visit on 12/22/24 UA DIP, URINE (POC) Result Value Ref Range GLUCOSE UA (POCT) Negative Negative mg/dL BILIRUBIN UA (POCT) Negative Negative KETONE UA (POCT) Negative Negative mg/dL SPECIFIC GRAVITY UA (POCT) 1.015 1.005 - 1.030 HEMOGLOBIN/BLOOD UA (POCT) Trace-intact (A) Negative PH UA (POCT) 6.0 4.5 - 8.0 PROTEIN UA (POCT) Negative Negative mg/dL UROBILINOGEN UA (POCT) 0.2 Normal E.U./dL NITRITE UA (POCT) Negative Negative LEUKOCYTES UA (POCT) Negative Negative COLOR UA (POCT) Dark yellow CLARITY UA (POCT) Cl (more content not included)... Normal [facility] UA DIP, URINE (POC)on 2024 BILIRUBIN UA (POCT) Negative Negative [facility] CLARITY UA (POCT) Clear [facility] COLOR UA (POCT) Dark yellow [facility] GLUCOSE UA (POCT) Negative Negative mg/dL [facility] Hemoglobin Ql (U) Trace-intact Abnormal Negative [facility] Interpretation and review of laboratory results Abnormal [facility] KETONE UA (POCT) Negative Negative mg/dL [facility] LEUKOCYTES UA (POCT) Negative [facility] NITRITE UA (POCT) Negative Negative [facility] PH UA (POCT) 6.0 4.5 - 8.0 [facility] Protein Ql (U) Negative Negative mg/dL [facility] SPECIFIC GRAVITY UA (POCT) 1.015 1.005 - 1.030 [facility] UROBILINOGEN UA (POCT) 0.2 Normal E.U./dL [facility] Location:[facility], [address], [place], [place], [id number] [place] [address] POINT OF CARE [facility] CNOVon 12-17-2024 CNOV Office Visit (FAMPWS ) LILA PALACIORAZA Trudy ([id number]) 1940 M Date Time Provider Department 12/17/24 10:00 AM JEREMIAS DAMICO FAMPWS During your visit today, we recorded the following information about you: Pulse Respiration Blood pressure Weight 61/minute 16/minute 158/82 79.1 kg Height 1.79 m Jeremias Damico MD 12/17/2024 12:01 PM Signed Elsa Yates Hakeme is a 84 year old male here for a Medicare wellness visit. Medicare Health Risk Assessment General Health Very good Exercise: Minutes/Day 40 min Exercise: Days/Week 6 days Alcohol: Daily Use Never Alcohol: Drinks/Day Patient does not drink Alcohol: 6 or more drinks Never Feel off balance No Concerns: Teeth/Dentures No Concerns: Sexual function No Troubled by feelings None of the above Frequency: Eating healthy diet Nearly every day ADLs requiring help None of the above Safety precautions in home/vehicle No Smoke, vape, chews tobacco No Difficulty hearing Yes Difficulty seeing No Current Providers Specialists: I have reviewed specialist-related care of the patient in the medical record. Current care team: Patient Care Team: Jeremias Damico MD as PCP - General (Family Medicine) Zeeshan Mahmood APRN.RUTHIE as [employer] (Family Medicine) Outside specialists seen: Urology, Dermatology Medical/Family history review Reviewed and updated problem list, medical/surgical/fami ly/social history, medications, and allergies. Opioid use review Opioid Medications (last 90 days) No data to display Anxiety/Depression screening Recommendation: no further intervention at this time Cognitive screening Cognitive screening reviewed and No further action needed (score 3-5). Functional Observation Was the patient's Timed Up AND Go test unsteady or >= 12 seconds? No Advance Care Planning Surrogate decision maker and/or advance care plan documented Measurements There were no vitals taken for this visit. Assessment/Plan Medicare annual wellness visit, subsequent (Z00.00) - Counseled on healthy diet and regular exercise - Fall avoidance information provided - Personalized prevention plan provided Chief Complaint Follow up HPI Elsa Palacio is a 84 year old male who presents here today for follow up. Uses Proscar 5 mg daily and Flomax 0.4 mg 2 pills daily. Follows with Urology. Headaches: none for years, does not follow with Neuro any longer. He was previously on Verapamil for headaches, and his BP was controlled on this. HTN: Taking Losartan 100 mg daily. Medication was increased from 50 mg to 100 mg last visit. No chest pains, dizziness, or Shortness of Breath. Checking BP at home, still getting elevated readings. Thyroid: Taking Synthroid 100 mcg daily. Giuseppe is physically active, walking just under 2 miles most days of the week and engaging in lawn care. He denies alcohol consumption and is mindful of maintaining a healthy diet. He follows with a urologist and an eye doctor, having had cataract surgery 2 years ago with a recent check-up 2 weeks ago. He reports doing well post-surgery but notes a slight loss in differentiating tones. Past medical history, appointments, medications, allergies reviewed. 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 Primary hypertension 10/13/2024 Previous Surgical History PAST SURGICAL HISTORY Procedure Laterality Date ARTHROSCOPY KNEE DIAGNOSTIC W/WO SYNOVIAL BX SPX ~1979 Arthroscopy, left knee COLONOSCOPY AND POLYPECTOMY 06/18/2001,04/10/00 Colonoscopy COLONOSCOPY FLX DX W/COLLJ SPEC WHEN PFRMD 07/09/07 repeat due 2012 COLONOSCOPY FLX DX W/COLLJ SPEC WHEN PFRMD 05/27/2012 no polyps, repeat due 2017 COLONOSCOPY FLX DX W/COLLJ SPEC WHEN PFRMD 01/20/2018 Colonoscopy COLONOSCOPY W/BIOPSY SINGLE/MULTIPLE 05/10/05 RAD RESECT TUMOR SOFT TISS NECK/ANT THORAX <5CM ~1969 BREAST TUMOR, left RELEASE PALM CONTRACTURE 01/15/2012 Right hand needle aponeurotomy Family History FAMILY HISTORY Problem Relation Age of Onset other (CHF) Mother OLD AGE Colon Cancer Father age 76 +/- Patient Allergies ALLERGIES Allergen Reactions Cheese (See Vegetab* cluster headaches Milk Containing Pro* Intolerance Mold cluster headaches Penicillin G cluster h/a Pollen cluster headaches Vinegar cluster headaches Current Medications Current Outpatient Medications on File Prior to Visit Medication Sig losartan (COZAAR) 100 mg tablet Take 1 tablet by mouth once daily. SUMAtriptan (IMITREX STA (more content not included)... Normal [facility] CBC panel Auto (Bld)on 12-14 Erythrocyte distribution width (RBC) [Ratio] 12.3 % Normal 11.5-15.0 [facility] Comment on above: Order Comment: Speci men Type: BLOOD SPECIMENOrdering Facility: [facility] Address: [address] [place] [address] Performed By: #### 5 8410-2 ####[facility] LABCLIA [id number] [place] [address] [place] Hematocrit (Bld) [Volume fraction] 44.3 % Normal 39.0-51.0 [facility] Comment on above: Order Comment: Speci men Type: BLOOD SPECIMENOrdering Facility: [facility] Address: [address] [place] [address] Performed By: #### 5 8410-2 ####[facility] LABCLIA [id number] [place] [address] [place] Hemoglobin (Bld) [Mass/Vol] 14.7 g/dL Normal 13.0-17.0 [facility] Comment on above: Order Comment: Speci men Type: BLOOD SPECIMENOrdering Facility: [facility] Address: [address] [place] [address] Performed By: #### 5 8410-2 ####[facility] LABIA [id number] [address] [place] MCH (RBC) [Entitic mass] 30.7 pg Normal 26.0-34.0 [facility] Comment on above: Order Comment: Speci men Type: BLOOD SPECIMENOrdering Facility: [facility] Address: [address] [place] [address] Performed By: #### 5 8410-2 ####[facility] LABIA [id number] [place] [address] [place] MCHC (RBC) [Mass/Vol] 33.2 g/dL Normal 30.5-36.0 [facility] Comment on above: Order Comment: Speci men Type: BLOOD SPECIMENOrdering Facility: [facility] Address: [address] [place] [address] Performed By: #### 5 8410-2 ####[facility] LABIA [id number] [place] [address] [place] MCV (RBC) [Entitic vol] 92.5 fL Normal 80.0-100.0 [facility] Comment on above: Order Comment: Speci men Type: BLOOD SPECIMENOrdering Facility: [facility] Address: [address] [place] [address] Performed By: #### 5 8410-2 ####[facility] LABIA [id number] [place] [address] [place] Nucleated RBC (Bld) [#/Vol] 10*3/uL Normal <0.01 [facility] Comment on above: Order Comment: Speci men Type: BLOOD SPECIMENOrdering Facility: [facility] Address: [address] [place] [address] Performed By: #### 5 8410-2 ####[facility] LABIA [id number] [address], [place] [address] [place] Platelet mean volume (Bld) [Entitic vol] 10.4 fL Normal 9.0-12.7 [facility] Comment on above: Order Comment: Speci men Type: BLOOD SPECIMENOrdering Facility: [facility] Address: [address] [place] [address] Performed By: #### 5 8410-2 ####[facility] [id number] [place] [address] [place] Platelets (Bld) [#/Vol] 213 10*3/uL Normal 150-400 [facility] Comment on above: Order Comment: Speci men Type: BLOOD SPECIMENOrdering Facility: [facility] Address: [address] [place] [address] Performed By: #### 5 8410-2 ####[facility] LAB[facility] [id number] [place] [id number] [place] RBC (Bld) [#/Vol] 4.79 10*6/uL Normal 4.20-6.00 [facility] Comment on above: Order Comment: Speci men Type: BLOOD SPECIMENOrdering Facility: [facility] Address: [address] [place] [address] Performed By: #### 5 8410-2 ####[facility] LABCLIA [id number] [address] [address] [place] WBC (Bld) [#/Vol] 8.26 10*3/uL Normal 3.70-11.00 [facility] Comment on above: Order Comment: Speci men Type: BLOOD SPECIMENOrdering Facility: [facility] Address: [address] [place] [address] Performed By: #### 5 8410-2 ####[facility] LABCLIA [id number] [address] [address] [place] Comprehensive metabolic 2000 panelon 12-14-2024 Albumin [Mass/Vol] 3.9 g/dL Normal 3.9-4.9 [facility] Comment on above: Order Comment: Speci men Type: BLOOD SPECIMENOrdering Facility: [facility] Address: [address] [place] [address] Performed By: #### 2 4331-1, 03630-3, 3015-3 ####[facility] LABCLIA [id number] [place] [id number] [place] ALP [Catalytic activity/Vol] 93 U/L Normal 38-113 [facility] Comment on above: Order Comment: Speci men Type: BLOOD SPECIMENOrdering Facility: [facility] Address: [address] [place] [address] Performed By: #### 2 4331-1, 50347-3, 3015-3 ####[facility] LABCLIA [id number] [address] [address] [place] ALT [Catalytic activity/Vol] 15 U/L Normal 10-54 [facility] Comment on above: Order Comment: Speci men Type: BLOOD SPECIMENOrdering Facility: [facility] Address: [address] [place], [place] [address] Performed By: #### 2 4331-1, 03625-8, 6-3 ####[facility] LABCLIA [id number] [address] [address] [place] Anion gap [Moles/Vol] 11 mmol/L Normal 8-15 [facility] Comment on above: Order Comment: Speci men Type: BLOOD SPECIMENOrdering Facility: [facility] Address: [address] [place], [place] [address] Performed By: #### 2 4331-1, 76836-9, 6-3 ####[facility] LABCLIA [id number] [address] [address] [place] AST [Catalytic activity/Vol] 15 U/L Normal 14-40 [facility] Comment on above: Order Comment: Speci men Type: BLOOD SPECIMENOrdering Facility: [facility] Address: [address] [place] [address] Performed By: #### 2 4331-1, 53168-2, 6-3 ####[facility] [id number] [place] [id number] [place] Bilirubin [Mass/Vol] 0.2 mg/dL Normal 0.2-1.3 [facility] Comment on above: Order Comment: Speci men Type: BLOOD SPECIMENOrdering Facility: [facility] Address: [address] [place], [place] [address] Performed By: #### 2 4331-1, 43794-4, 6-3 ####[facility] LABCLIA [id number] [address] [address] [place] Calcium [Mass/Vol] 9.7 mg/dL Normal 8.5-10.2 [facility] Comment on above: Order Comment: Speci men Type: BLOOD SPECIMENOrdering Facility: [facility] Address: [address] [place], [place] [address] Performed By: #### 2 4331-1, 26069-6, 3016-3 ####[facility] LABCLIA [id number] [address] [address] [place] Chloride [Moles/Vol] 103 mmol/L Normal 98-107 [facility] Comment on above: Order Comment: Speci men Type: BLOOD SPECIMENOrdering Facility: [facility] Address: [address] [place] [address] Performed By: #### 2 4331-1, 08434-4, 3016-3 ####[facility] LABCLIA [id number] [place] [id number] [place] CO2 [Moles/Vol] 24 mmol/L Normal 22-30 [facility] Comment on above: Order Comment: Speci men Type: BLOOD SPECIMENOrdering Facility: [facility] Address: [address] [place] [address] Performed By: #### 2 4331-1, 61279-1, 3016-3 ####[facility] LABCLIA [id number] [place] [id number] [place] Creatinine [Mass/Vol] 1.13 mg/dL Normal 0.73-1.22 [facility] Comment on above: Order Comment: Speci men Type: BLOOD SPECIMENOrdering Facility: [facility] Address: [address] [place] [address] Performed By: #### 2 4331-1, 13460-4, 3016-3 ####[facility] LABCLIA [id number] [place] [id number] [place] eGFRcr SerPlBld CKD-EPI 2020 64 mL/min/1.73m??? Normal >=60 [facility] Comment on above: Order Comment: Speci men Type: BLOOD SPECIMENOrdering Facility: [facility] Address: [address] [place] [address] Result Comment: Monie mated Glomerular Filtration Rate (eGFR) is calculated using the 2020 CKD-EPI creatinine equation. This equation utilizes serum creatinine, sex, and age as parameters. The creatinine assay has traceable calibration to isotope dilution-mass spectrometry. Refer to KDIGO guidelines for clinical interpretation. In patients with unstable renal function, e.g. those with acute kidney injury, the eGFR may not accurately reflect actual GFR. Performed By: #### 2 4331-1, , 3 ####[facility] LABCLIA [id number] [facility] COASTK [address] [address] [place] Glucose [Mass/Vol] 113 mg/dL High 74-99 [facility] Comment on above: Order Comment: Speci men Type: BLOOD SPECIMENOrdering Facility: [facility] Address: [address] [place] [address] Result Comment: The [place] Diabetes Association (ADA) provides guidance for cutoff values for fasting glucose and random glucose. The ADA defines fasting as no caloric intake for at least 8 hours. Fasting plasma glucose results between 100 to 125 mg/dL indicate increased risk for diabetes (prediabetes). Fasting plasma glucose results greater than or equal to 126 mg/dL meet the criteria for diagnosis of diabetes. In the absence of unequivocal hyperglycemia, results should be confirmed by repeat testing. In a patient with classic symptoms of hyperglycemia or hyperglycemic crisis, random plasma glucose results greater than or equal to 200 mg/dL meet the criteria for diagnosis of diabetes. Reference: Standards of Medical Care in Diabetes 2016, [place] [employer] Association. Diabetes Care. 2016.39(Suppl 1). Performed By: #### 2 4331-1, , 3015-06 ####[facility] LABCLIA [id number] [facility]CAS[facility] MEDICINEK [address] [address] [place] Potassium [Moles/Vol] 4.6 mmol/L Normal 3.7-5.1 [facility] Comment on above: Order Comment: Sharon men Type: BLOOD SPECIMENOrdering Facility: [facility] Address: [address] [place] [address] Performed By: #### 2 4331-1, , 3015-06 ####[facility] LABCLIA [id number] [facility] [address] [address] [place] Protein [Mass/Vol] 6.2 g/dL Low 6.3-8.0 [facility] Comment on above: Order Comment: Speci men Type: BLOOD SPECIMENOrdering Facility: [facility] Address: [address] [place] [address] Performed By: #### 2 4331-1, , 3 ####[facility] LABCLIA [id number] [facility] [address] [place] [address] [place] Sodium [Moles/Vol] 138 mmol/L Normal 136-144 [facility] Comment on above: Order Comment: Speci men Type: BLOOD SPECIMENOrdering Facility: [facility] Address: [address] [place], [place] [address] Performed By: #### 2 4331-1, , 3015-06 ####[facility] LABCLIA [id number] [address] [address] [place] Urea nitrogen [Mass/Vol] 18 mg/dL Normal 9-24 [facility] Comment on above: Order Comment: Speci men Type: BLOOD SPECIMENOrdering Facility: [facility] Address: [address] [place], [place] [address] Performed By: #### 2 4331-1, , 3015-06 ####[facility] LABCLIA [id number] [address] [place] [address] [place] Lipid 1996 panelon 5 Cholesterol [Mass/Vol] 186 mg/dL Normal <200 [facility] Comment on above: Order Comment: Speci men Type: BLOOD SPECIMENOrdering Facility: [facility] Address: [address] [place] [address] Result Comment: <200 mg/dL, Desirable 200-239 mg/dL, Borderline high >239 mg/dL, High Performed By: #### 2 4331-1, , 3015-06 ####[facility] LABCLIA [id number] [address] [place] [address] [place] Cholesterol in HDL [Mass/Vol] 45 mg/dL Normal >39 [facility] Comment on above: Order Comment: Sharon shaw Type: BLOOD SPECIMENOrdering Facility: [facility] Address: [address] [place] [address] Result Comment: 40-5 9 mg/dL, Acceptable >59 mg/dL, High: Negative risk factor for coronary heart disease <40 mg/dL, Low: Positive risk factor for coronary heart disease Performed By: #### 2 4331-1, 42396-9, 6-3 ####[facility] LABIA [id number] [address] [place] [facility] Cholesterol in LDL [Mass/Vol] 116 mg/dL High <100 [facility] Comment on above: Order Comment: Teresebrian shaw Type: BLOOD SPECIMENOrdering Facility: [facility] Address: [address] [place] [address] Result Comment: <100 mg/dL, Optimal 100-129 mg/dL, Near optimal/above optimal 130-159 mg/dL, Borderline high 160-189 mg/dL, High >189 mg/dL, Very high Secondary prevention optimal LDL Cholesterol levels are recommended to be <70 mg/dL LDL cholesterol is calculated using the Rodriguez-NIH equation. Performed By: #### 2 4331-1, 82466-9, 3015-3 ####[facility] [id number] [address] [place] Cholesterol in LDL/Cholesterol in HDL [Mass ratio] 2.58 {ratio} High <2.54 [facility] Comment on above: Order Comment: Sharon shaw Type: BLOOD SPECIMENOrdering Facility: [facility] Address: [address] [place] [address] Result Comment: Refe rence: 1. National Cholesterol Education Program ATP III Guideline At-A-Glance Quick Desk Reference: National Heart, Lung, and Blood [place]. National Institutes of Health. 2001: NIH Publication No. 01-3305. 2. An International Atherosclerosis Society position paper: global recommendations for the management of dyslipidemia: executive summary, Atherosclerosis. 2014: 232(2):410-413. Performed By: #### 2 4331-1, , 3015-06 ####[facility] LABCLIA [id number] [address] [place] [address] [place] Cholesterol in VLDL [Mass/Vol] 24 mg/dL Normal <30 [facility] Comment on above: Order Comment: Speci men Type: BLOOD SPECIMENOrdering Facility: [facility] Address: [address] [place], [place] [address] Performed By: #### 2 4331-1, , 3015-06 ####[facility] LABCLIA [id number] [address] [place] [address] [place] Cholesterol non HDL [Mass/Vol] 141 mg/dL High <130 [facility] Comment on above: Order Comment: Speci men Type: BLOOD SPECIMENOrdering Facility: [facility] Address: [address] [place] [address] Result Comment: <130 mg/dL, Optimal 130-159 mg/dL, Near optimal/above optimal 160-189 mg/dL, Borderline high 190-219 mg/dL, High >219 mg/dL, Very high Secondary prevention optimal non HDL Cholesterol levels are recommended to be <100 mg/dL Performed By: #### 2 4331-1, , 3015-06 ####[facility]CLIA [id number] [address] [place] [address] [place] Cholesterol.total/Cho lesterol in HDL [Mass ratio] 4.13 {ratio} Normal <5.10 [facility] Comment on above: Order Comment: Speci men Type: BLOOD SPECIMENOrdering Facility: [facility] Address: [address] [place] [address] Performed By: #### 2 4331-1, , 3015-06 ####[facility] LABCLIA [id number] [address] [place] [address] [place] FASTING TIME 12 hrs Normal [facility] Comment on above: Order Comment: Speci men Type: BLOOD SPECIMENOrdering Facility: [facility] Address: [address] [place] [address] Performed By: #### 2 4331-1, 92355-8, 3 ####[facility] LABCLIA [id number] [place] [id number] [place] Triglyceride [Mass/Vol] 140 mg/dL Normal <150 [facility] Comment on above: Order Comment: Speci men Type: BLOOD SPECIMENOrdering Facility: [facility] Address: [address] [place] [address] Result Comment: <150 mg/dL, Normal 150-199 mg/dL, Borderline high 200-499 mg/dL, High >499 mg/dL, Very high Performed By: #### 2 4331-1, 77898-6, 3 ####[facility]CLIA [id number] [place] [id number] [place] TSH SerPl-aCncon 12-14-2024 TSH Qn 0.466 m[IU]/L Normal 0.270-4.200 [facility] Comment on above: Order Comment: Speci men Type: BLOOD SPECIMENOrdering Facility: [facility] Address: [address] [place] [address] Performed By: #### 2 4331-1, 16677-9, 3 ####[facility] [id number] [place] [id number] [place] CNOVon 11-19-2024 CNOV Office Visit (FAMPWS ) ELSA PALACIO ([id number]) 1940 M Date Time Provider Department 11/19/24 11:20 AM JEREMIAS DAMICOWS During your visit today, we recorded the following information about you: Pulse Respiration Blood pressure Weight 74/minute 16/minute 142/98 78 kg Jeremias Damico MD 11/19/2024 12:00 PM Signed Chief Complaint Patient presents with: F/U 1 month: BP HPI Elsa Palacio is a 84 year old male who presents here today for 1 month follow up. HTN: Taking Losartan which was increased last visit from 25 mg daily to 50 mg daily. He has been checking BP at home with readings running around 114/82 to 163/103. Feels that the past week his BP has been running higher than normal. No changes to lifestyle or stress to cause the BP to be higher. He denies any chest pains, dizziness, or shortness of breath. He does get a little bit of dizziness with exertion, about half hour in to push mowing his yard he has to take a break. No Shortness of Breath or chest pains. Has not experienced any headaches. Past medical history, appointments, medications, allergies reviewed. 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 Dr Jameson Diverticulosis of colon (without mention of hemorrhage) Dupuytren's contracture of both hands ED (erectile dysfunction) Hypothyroidism Migraine with aura, without mention of intractable migraine without mention of status migrainosus Asya RAE, Dr Pierce Primary hypertension 10/13/2024 Previous Surgical History PAST SURGICAL HISTORY Procedure Laterality Date ARTHROSCOPY KNEE DIAGNOSTIC W/WO SYNOVIAL BX SPX ~1979 Arthroscopy, left knee COLONOSCOPY AND POLYPECTOMY 06/18/2001,04/10/00 Colonoscopy COLONOSCOPY FLX DX W/COLLJ SPEC WHEN PFRMD 07/09/07 repeat due 2012 COLONOSCOPY FLX DX W/COLLJ SPEC WHEN PFRMD 05/27/2012 no polyps, repeat due 2017 COLONOSCOPY FLX DX W/COLLJ SPEC WHEN PFRMD 01/20/2018 Colonoscopy COLONOSCOPY W/BIOPSY SINGLE/MULTIPLE 05/10/05 RAD RESECT TUMOR SOFT TISS NECK/ANT THORAX <5CM ~1970 BREAST TUMOR, left RELEASE PALM CONTRACTURE 01/15/2012 Right hand needle aponeurotomy Family History FAMILY HISTORY Problem Relation Age of Onset other (CHF) Mother OLD AGE Colon Cancer Father age 76 +/- Patient Allergies ALLERGIES Allergen Reactions Cheese (See Vegetab* cluster headaches Milk Containing Pro* Intolerance Mold cluster headaches Penicillin G cluster h/a Pollen cluster headaches Vinegar cluster headaches Current Medications Current Outpatient Medications on File Prior to Visit Medication Sig losartan (COZAAR) 50 mg tablet Take 1 tablet by mouth once daily. SUMAtriptan (IMITREX STATDOSE PEN) 6 mg/0.5 mL pen Inject 0.5 mL subcutaneously as needed (at onset of headache. May repeat after 1 hour.). levothyroxine (SYNTHROID) 100 mcg tablet Take 1 tablet by mouth once daily. finasteride (PROSCAR) 5 mg tablet take 1 tablet by mouth once daily. tamsulosin (FLOMAX) 0.4 mg Take 2 capsules by mouth once daily. therapeutic multivitamin ORAL tablet Take by mouth once daily. MELATONIN 3 MG TAB Take 3 mg by mouth daily at bedtime. docusate sodium([email or web address] LIQUI-GELS 100 MG CAP) Take by mouth once daily. No current facility-administered medications on file prior to visit. Social History Social History Tobacco Use Smoking status: Former Types: Cigarettes Smokeless tobacco: Never Tobacco comments: for 2 years when patient was 20yrs old Vaping Use Vaping status: Never Used Substance Use Topics Alcohol use: Not Currently Drug use: Never EXAM: BP 142/98 Pulse 74 Resp 16 Wt 78 kg (171 lb 15.3 oz) BMI 25.12 kg/m? General Appearance: Well appearing, alert, in no acute distress, well-hydrated, well nourished.. Lungs: Lungs clear to auscultation. No wheezing, rhonchi, rales.. Heart: RRR without murmur, gallop, or rubs. No ectopy. Health Maintenance List Advance Directive Discussion due on 04/22/2024 Medicare Advantage Annual Wellness Visit due on 04/22/2024 Influenza Vaccine(1) due on 12/21/2024 Depression Screening due on 01/23/2025 Anxiety Screening due on 01/23/2025 Diabetes Screening due on 01/19/2027 DTaP,Tdap,Td Vaccine(3 - Td or Tdap) due on 07/31/2027 RSV Vaccine Completed Shingrix Vaccine Completed Pneumococcal Vaccine: 50+ Completed Colonoscopy Discontinued Data reviewed none 1. Primary hypertension (I10) Blood pressure readings have been normal to slightly elevated, with a recent outlier of 163/103 mmHg. Currently on Losartan 50 mg daily. Reports mild dizziness during prolonged physical activity, which is a new symptom since starting the medication. - Increased Losartan to 100 mg daily; prescription sent to [facility] in [place]. - Advised patie (more content not included)... Normal [facility] CNOVon 10-13-2024 CNOV Office Visit (FAMPWS ) ELSA PALACIO ([id number]) 1940 M Date Time Provider Department 10/13/24 4:40 PM [facility] During your visit today, we recorded the following information about you: Pulse Respiration Blood pressure Weight 78/minute 16/minute 140/82 79.4 kg Jeremias Damico MD 10/13/2024 5:15 PM Signed Chief Complaint Patient presents with: Follow Up: Blood pressure HPI Elsa Palacio is a 84 year old male who presents here today for 1 month follow up. HTN: Was started on Losartan 25 mg daily last visit as BP was running high. Neuro d/c his Verapamil due to him being headache free for several years and BP being controlled, but since being off the medication his BP was running higher. He denies any chest pains, dizziness, or shortness of breath. He has been checking BP at home with readings running around 155/108 to 130/80; recently averaging 140s/80s.. Past medical history, appointments, medications, allergies reviewed. 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 Dr Jameson Diverticulosis of colon (without mention of hemorrhage) Dupuytren's contracture of both hands ED (erectile dysfunction) Hypothyroidism Migraine with aura, without mention of intractable migraine without mention of status migrainosus Dr Kari Aguilar Previous Surgical History PAST SURGICAL HISTORY Procedure Laterality Date ARTHROSCOPY KNEE DIAGNOSTIC W/WO SYNOVIAL BX SPX ~1979 Arthroscopy, left knee COLONOSCOPY AND POLYPECTOMY 06/18/2001,04/10/00 Colonoscopy COLONOSCOPY FLX DX W/COLLJ SPEC WHEN PFRMD 07/09/07 repeat due 2012 COLONOSCOPY FLX DX W/COLLJ SPEC WHEN PFRMD 05/27/2012 no polyps, repeat due 2017 COLONOSCOPY FLX DX W/COLLJ SPEC WHEN PFRMD 01/20/2018 Colonoscopy COLONOSCOPY W/BIOPSY SINGLE/MULTIPLE 05/10/05 RAD RESECT TUMOR SOFT TISS NECK/ANT THORAX <5CM ~1970 BREAST TUMOR, left RELEASE PALM CONTRACTURE 01/15/2012 Right hand needle aponeurotomy Family History FAMILY HISTORY Problem Relation Age of Onset other (CHF) Mother OLD AGE Colon Cancer Father age 76 +/- Patient Allergies ALLERGIES Allergen Reactions Cheese (See Vegetab* cluster headaches Milk Containing Pro* Intolerance Mold cluster headaches Penicillin G cluster h/a Pollen cluster headaches Vinegar cluster headaches Current Medications Current Outpatient Medications on File Prior to Visit Medication Sig losartan (COZAAR) 25 mg tablet Take 1 tablet by mouth once daily. SUMAtriptan (IMITREX STATDOSE PEN) 6 mg/0.5 mL pen Inject 0.5 mL subcutaneously as needed (at onset of headache. May repeat after 1 hour.). levothyroxine (SYNTHROID) 100 mcg tablet Take 1 tablet by mouth once daily. finasteride (PROSCAR) 5 mg tablet take 1 tablet by mouth once daily. tamsulosin (FLOMAX) 0.4 mg Take 2 capsules by mouth once daily. therapeutic multivitamin ORAL tablet Take by mouth once daily. MELATONIN 3 MG TAB Take 3 mg by mouth daily at bedtime. docusate sodium([email or web address] LIQUI-GELS 100 MG CAP) Take by mouth once daily. No current facility-administered medications on file prior to visit. Social History Social History Tobacco Use Smoking status: Former Types: Cigarettes Smokeless tobacco: Never Tobacco comments: for 2 years when patient was 20yrs old Vaping Use Vaping status: Never Used Substance Use Topics Alcohol use: Not Currently Drug use: Never EXAM: BP 140/82 Pulse 78 Resp 16 Wt 79.4 kg (175 lb 0.7 oz) SpO2 99% BMI 25.57 kg/m? General Appearance: Well appearing, alert, in no acute distress, well-hydrated, well nourished.. Lungs: Lungs clear to auscultation. No wheezing, rhonchi, rales.. Heart: RRR without murmur, gallop, or rubs. No ectopy. Health Maintenance List Advance Directive Discussion due on 04/22/2024 Medicare Advantage Annual Wellness Visit due on 04/22/2024 Covid-19 Vaccine( season) due on 07/24/2024 Depression Screening due on 01/23/2025 Anxiety Screening due on 01/23/2025 Diabetes Screening due on 01/19/2027 DTaP,Tdap,Td Vaccine(3 - Td or Tdap) due on 07/31/2027 Influenza Vaccine Completed RSV Vaccine Completed Shingrix Vaccine Completed Pneumococcal Vaccine: 50+ Completed Colonoscopy Discontinued Data reviewed Home BP readings 1. Primary hypertension (I10) - Blood pressure readings have shown some improvement with losartan 25 mg daily, but still higher than desired, with recent readings up to 155 mmHg. - No adverse effects reported from losartan. - Increased losartan to 50 mg daily. - Advised patient that it may take 1-2 weeks for the medication to equilibrate in the system and to continue monitoring blood pressure at home. - Prescription for losartan 50 mg sent to [facility]. - Follow- (more content not included)... Normal [facility] CNOVon 09-04-2024 CNOV Office Visit (FAMPWS ) ELSA PALACIO ([id number]) 1940 M Date Time Provider Department 09/04/24 4:40 PM JEREMIAS DAMICO FAMPWS During your visit today, we recorded the following information about you: Pulse Respiration Blood pressure Weight 74/minute 16/minute 160/98 80.4 kg Jeremias Damico MD 09/04/2024 4:51 PM Signed Chief Complaint Patient presents with: Blood Pressure HPI Elsa Palacio is a 84 year old male who presents here today for blood pressure follow up. HTN: He saw Snow Brooks CNP in Neuro for his headache and she discontinued the Verapamil as he had been headache free for several years and his BP was controlled. Pt states that they have slowly been decreasing the Verapamil. At that visit his BP was 147/77. He discontinued the medication as directed and has been monitoring his BP which has been higher as expected. Stated his BP was lower when on the medication. At this time pt is not on any blood pressure medications. He has been checking his BP and reported readings on 08/27/24 via [employer]. Denies any chest pains, dizziness, SOB, or headaches. Readings: August 10-144/89 August 13-145/89 August 17-144/91 August 1-150/105 August 23-153/101 August 25-122/93 August 26-151/103 Past medical history, appointments, medications, allergies reviewed. 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 Previous Surgical History PAST SURGICAL HISTORY Procedure Laterality Date ARTHROSCOPY KNEE DIAGNOSTIC W/WO SYNOVIAL BX SPX ~1979 Arthroscopy, left knee COLONOSCOPY AND POLYPECTOMY 06/18/2001,04/10/00 Colonoscopy COLONOSCOPY FLX DX W/COLLJ SPEC WHEN PFRMD 07/09/07 repeat due 2012 COLONOSCOPY FLX DX W/COLLJ SPEC WHEN PFRMD 05/27/2012 no polyps, repeat due 2017 COLONOSCOPY FLX DX W/COLLJ SPEC WHEN PFRMD 01/20/2018 Colonoscopy COLONOSCOPY W/BIOPSY SINGLE/MULTIPLE 05/10/05 RAD RESECT TUMOR SOFT TISS NECK/ANT THORAX <5CM ~1969 BREAST TUMOR, left RELEASE PALM CONTRACTURE 01/15/2012 Right hand needle aponeurotomy Family History FAMILY HISTORY Problem Relation Age of Onset other (CHF) Mother OLD AGE Colon Cancer Father age 76 +/- Patient Allergies ALLERGIES Allergen Reactions Cheese (See Vegetab* cluster headaches Milk Containing Pro* Intolerance Mold cluster headaches Penicillin G cluster h/a Pollen cluster headaches Vinegar cluster headaches Current Medications Current Outpatient Medications on File Prior to Visit Medication Sig SUMAtriptan (IMITREX STATDOSE PEN) 6 mg/0.5 mL pen Inject 0.5 mL subcutaneously as needed (at onset of headache. May repeat after 1 hour.). levothyroxine (SYNTHROID) 100 mcg tablet Take 1 tablet by mouth once daily. finasteride (PROSCAR) 5 mg tablet take 1 tablet by mouth once daily. tamsulosin (FLOMAX) 0.4 mg Take 2 capsules by mouth once daily. verapamil 80 mg tablet Take one(1) tablet two(2) times daily. therapeutic multivitamin ORAL tablet Take by mouth once daily. MELATONIN 3 MG TAB Take 3 mg by mouth daily at bedtime. docusate sodium([email or web address] LIQUI-GELS 100 MG CAP) Take by mouth once daily. No current facility-administered medications on file prior to visit. Social History Social History Tobacco Use Smoking status: Former Types: Cigarettes Smokeless tobacco: Never Tobacco comments: for 2 years when patient was 20yrs old Vaping Use Vaping status: Never Used Substance Use Topics Alcohol use: Not Currently Drug use: Never EXAM: BP 160/98 Pulse 74 Resp 16 Wt 80.4 kg (177 lb 4 oz) BMI 25.90 kg/m? General Appearance: Well appearing, alert, in no acute distress, well-hydrated, well nourished.. Lungs: Lungs clear to auscultation. No wheezing, rhonchi, rales.. Heart: RRR without murmur, gallop, or rubs. No ectopy. Health Maintenance List Advance Directive Discussion due on 04/22/2024 Covid-19 Vaccine( season) due on 07/24/2024 Depression Screening due on 01/23/2025 Anxiety Screening due on 01/23/2025 Diabetes Screening due on 01/19/2027 DTaP,Tdap,Td Vaccine(3 - Td or Tdap) due on 07/31/2027 Influenza Vaccine Completed RSV Vaccine Completed Shingrix Vaccine Completed Pneumococcal Vaccine: 50+ Completed Colonoscopy Discontinued Data reviewed None ASSESSMENT/PLAN: 1. Primary hypertension - ICD9: 401.9, ICD10: I10 - Worsening control - Start losartan 25 mg daily - Recommend home blood pressure monitoring, to bring results to next visit - Encouraged sodium restriction, DASH or Mediterranean (more content not included)... Normal [facility] CNOVon 08-04-2024 CNOV Office Visit (NEHAHC ) ELSA PALACIO ([id number]) 1940 M Date Time Provider Department 08/04/24 9:30 AM [facility] During your visit today, we recorded the following information about you: Pulse Respiration Blood pressure Weight 55/minute 20/minute 147/77 80.5 kg Height 1.762 m Snow Brooks, NIDHI.TOOL SUPERVISOR 08/04/2024 10:06 AM Signed [facility] Follow up visit August 04, 2024 Chief Complaint: Cluster headache Impression and Plan last visit: 01/30/2024 with me Elsa Palacio is a 83 year old year old male, with a history of cluster headaches who returns in follow up. He is a former patient of Dr. Pierce's going back to 1999. Over the last few years he has been able to stop Depakote with no recurrence. When he tries to reduce the dose of Verapamil he will have start to have the a sensation left occipital region which is his prodrome and will treat with Sumatriptan SQ. Rarely treats. . PLAN: Continue Verapamil and Sumatriptan Interval Headache History: . He reduced the dose of Verapamil from 80mg bid to 80mg once a day 3 weeks ago with no worsening of headaches. No particular time of year for cluster episodes. They used to occur with schedule changes. In the past when he would vary his routine he would get more headaches. Over the last year he had been waking in the middle of the night - and not able to fall asleep - this has not caused an exacerbation of clusters When he used to feel the cluster coming on he would treat with sumatriptan immediately Rarely having hypnic - headaches that wake him in the middle of the night - no longer taking caffeine before bed. Headache 1 Location: cluster starts base of the skull on the left and settle behind the left eye ptosis and severe photophobia Number of migraine headache days/month: 0 Number of headache free days/month: 30 Relieving factors: sumatriptan injection; coffee or ice tea Headache status since the last visit: same Preventative: Verapamil 80 mg Abortive: sumatriptan SQ has not used it in years Prior Therapies Duration of Use Dose Reason for Discontinuation Anti-Convulsant Divalproex sodium (Depakote) Anti-Depressant and Antipsychotic Olanzapine (Zyprexa, Zydis) Anti-Migraine Dihydroergotamine (DHE-45, Migranal) Sumatriptan (Imitrex, Sumavel) Zolmitriptan (Zomig) Blood Pressure Verapamil (Verelan, Calan, Isoptin) Current Outpatient Medications Medication Sig SUMAtriptan (IMITREX STATDOSE PEN) 6 mg/0.5 mL pen Inject 0.5 mL subcutaneously as needed (at onset of headache. May repeat after 1 hour.). levothyroxine (SYNTHROID) 100 mcg tablet Take 1 tablet by mouth once daily. finasteride (PROSCAR) 5 mg tablet take 1 tablet by mouth once daily. tamsulosin (FLOMAX) 0.4 mg Take 2 capsules by mouth once daily. verapamil 80 mg tablet Take one(1) tablet two(2) times daily. therapeutic multivitamin ORAL tablet Take by mouth once daily. MELATONIN 3 MG TAB Take 3 mg by mouth daily at bedtime. docusate sodium([email or web address] LIQUI-GELS 100 MG CAP) Take by mouth once daily. No current facility-administered medications for this visit. 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 No acute intracranial process 2. No suspicious signal abnormality... MRA Head and/or Neck - Last 2 Impressions No resulted procedures found. CT Head/Brain - Last 2 Impressions No resulted procedures found. CTA Head and/or Neck - Last 2 No resulted procedures found. HEADACHE SCORES: 01/14/2023 01/23/2024 07/28/2024 Headache Questions ER visits since last office visit: 0 0 0 Hospital stays since last office visit 0 0 0 Limited ADLs in the last month: 0 0 0 Days missed from work or school in the last month: 0 0 0 Days headache pain free in the last month: 30 30 30 Days per month with ALL of the following symptoms - decreased productivity, light sensitivity and nausea: 0 0 0 Initial improvement of headache after botox injection at last visit: Not applicable, I did not have a botox injection at my last visit Not applicable, I did not have a botox injection at my last v (more content not included)... [facility] UA DIP, URINE (POC)on 2023 BILIRUBIN UA (POCT) Negative Negative [facility] CLARITY UA (POCT) [facility] COLOR UA (POCT) Dark yellow [facility] GLUCOSE UA (POCT) Negative Negative mg/dL [facility] Hemoglobin Ql (U) Negative Negative [facility] KETONE UA (POCT) Negative Negative mg/dL [facility] LEUKOCYTES UA (POCT) Negative [facility] (PO[facility]) Negative Negative [facility] PH UA (POCT) 5.5 4.5 - 8.0 [facility] Protein Ql (U) Negative Negative mg/dL [facility] SPECIFIC GRAVITY UA (POCT) 1.025 1.005 - 1.030 [facility] UROBILINOGEN UA (POCT) 0.2 Normal E.U./dL [facility] Location:[facility], [address], [place], [place], [id number] [place] [address] POINT OF CARE [facility] ECG COMPLETEon 01-25-2023 Atrial Rate 70 BPM [facility] Calculated P [place] 41 degrees [facility] Calculated R [place] 25 degrees [facility] Calculated T [place] 58 degrees [facility] P-R Interval 208 ms [facility] QRS Duration 88 ms [facility] QT Interval 444 ms [facility] QTC Calculation (Bazett) 479 ms [facility] Ventricular Rate 70 BPM [facility] UA DIP, URINE (POC)on 2022 BILIRUBIN UA (POCT) Small Abnormal Negative [facility] CLARITY UA (POCT) Clear [facility] COLOR UA (POCT) Dark yellow [facility] GLUCOSE UA (POCT) Negative Negative mg/dL [facility] HEMOGLOBIN/BLOOD UA (POCT) Trace-intact Abnormal Negative [facility] KETONE UA (POCT) 15 mg/dL Abnormal Negative mg/dL [facility] LEUKOCYTES UA (POCT) Negative Negative [facility] NITRITE UA (POCT) Negative Negative [facility] PH UA (POCT) 7.0 4.5 - 8.0 [facility] Protein Ql (U) 30 mg/dL Abnormal Negative mg/dL [facility] SPECIFIC GRAVITY UA (POCT) 1.020 1.005 - 1.030 [facility] UROBILINOGEN UA (POCT) 0.2 E.U./dL Normal E.U./dL [facility] UA DIP, URINE (POC)on 2021 BILIRUBIN UA (POCT) Negative Negative [facility] CLARITY UA (POCT) Clear [facility] COLOR UA (POCT) Dark yellow [facility] GLUCOSE UA (POCT) Negative Negative mg/dL [facility] HEMOGLOBIN/BLOOD UA (POCT) Trace-lysed Abnormal Negative [facility] KETONE UA (POCT) Negative Negative mg/dL [facility] LEUKOCYTES UA (POCT) Negative Negative [facility] NITRITE UA (POCT) Negative Negative [facility] PH UA (POCT) 7.0 4.5 - 8.0 [facility] Protein Ql (U) Trace Abnormal Negative mg/dL [facility] SPECIFIC GRAVITY UA (POCT) 1.020 1.005 - 1.030 [facility] UROBILINOGEN UA (POCT) 0.2 E.U./dL Normal E.U./dL [facility] STRESS TEST EXERCISEon 02-02 STRESS TEST EXERCISE NAME : ELSA PALACIO PID : [id number] : 1940 Gender : Male Race : ORD : [id number] Procedure Date : Feb 02 2019 13:37:39 Edit Date : Feb 03 2019 14:05:20 Protocol Name : JULISA Time In Exercise Phase : 00:10:45 Max. Systolic BP : 190 mmHg Max Diastolic BP : 84 mmHg Max Heart Rate : 134 BPM Max Predicted Heart Rate : 142 BPM Recovery ECG Response (OLD) : Reason For Termination : Target Heart Rate Achieved Test Reason : CAMPOS Location :[facility] Overread By : BELIA PHIPPS M.D. Edited By : Francia Hamm Referred By : ZEESHAN MAHMOOD Acquired by : KATHY GARCIA [facility]2019 [facility] Telephone ([facility]) ELSA PALACIO ([id number]) 1940 M Date Time Provider Department 01/30/19 BRENDA ZAYAS (RN) [facility] During your visit today, we recorded the following information about you: Brenda Zayas RN, RN 01/30/2019 2:42 PM Signed Spoke with patient regarding reminder for stress test on Saturday and given instructions Allergies As of Date: 01/30/2019 Noted Allergy Reaction CHEESE (SEE VEGETABLE GUM) 01/29/2005 Comments: cluster headaches dairy products [Other] 09/06/2010 14 - Other: See Comments Comments: headache MOLD 01/29/2005 Comments: cluster headaches PENICILLIN G 01/29/2005 Comments: cluster h/a POLLEN 01/29/2005 Comments: cluster headaches VINEGAR 01/29/2005 Comments: cluster headaches Date Reviewed: 01/27/2019 Reviewed by: Salomon Cali - Fully Assessed Reason for Visit: Reminder Call [[id number]] Prescriptions as of 01/30/2019 Sig: DIVALPROEX ER 500 MG TABLET,E* Take 2 at night VERAPAMIL 80 MG TABLET Take 2 in the am and 3 at nig* LEVOTHYROXINE 112 MCG TABLET Take 1 tablet by mouth once d* TAMSULOSIN 0.4 MG CAPSULE Take 1 capsule by mouth once * SILDENAFIL 50 MG TABLET Take 1 tablet by mouth as dir* PERFLUTREN LIPID MICROSPHERES* Inject 1.3 mL intravenously a* SUMATRIPTAN 6 MG/0.5 ML SUBCU* Inject 0.5 mL subcutaneously * * THERAPEUTIC MULTIVITAMIN TABL* Take one(1) tablet daily. 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 More... Cluster headache [G44.009] INVALID FOR* More... 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] INVALID FOR* ED (erectile dysfunction) [N52.9] Episodic cluster headache, not intractable [G44*INVALID FOR* Encounter Status:Closed by BRENDA ZAYAS on 01/30/19 [facility] Vital Signs Date Time Vital Sign Value Performing Clinician Facility 03-03-2025 04:05-0500 SaO2% (BldA) [Mass fraction] 97 % [facility] Comment on above: Order Comment: Specimen Type: BLOOD SPEC IMEN Ordering Facility: [facility] Address: [address] [place] [address] Performed By: #### 3 016-3, 80668-9, HSTNT, 39617-7, 81389-1, 27700-7 #### [facility] CLIA [id number] [address] [place] [address] [place] 03-02-2025 20:10-0500 SaO2% (BldA) [Mass fraction] 97 % [facility] Comment on above: Order Comment: Specimen Type: BLOOD SPEC IMEN Ordering Facility: [facility] Address: [address] [place] [address] Performed By: #### 3 016-3, 91139-6, HSTNT, 42827-9, 29776-4, 05729-6 #### [facility] CLIA [id number] [address] 03-02-2025 14:08-0500 SaO2% (BldA) [Mass fraction] 100 % [facility] Comment on above: Order Comment: Specimen Type: BLOOD SPEC IMEN Ordering Facility: [facility] Address: [address] [place] [address] Performed By: #### 3 016-3, 17505-5, HSTNT, 87239-6, 35955-3, 87302-3 #### [facility] CLIA [id number] [address] [place] [id number] [facility] 12-17-2024 09:59-0400 Diastolic blood pressure 82 mm[Hg] Jeremias Damico MD Work Phone: [facility] 12-17-2024 09:59-0400 Systolic blood pressure 158 mm[Hg] Jeremias Damico MD Work Phone: [facility] 12-17-2024 09:53-0400 Body height 179 cm Jeremias Damico MD Work Phone: [facility] 12-17-2024 09:53-0400 Body mass index (BMI) [Ratio] 24.69 kg/m2 Jeremias Damico MD Work Phone: [facility] 12-17-2024 09:53-0400 Body weight 79.1 kg Jeremias Damico MD Work Phone: [facility] 12-17-2024 09:53-0400 Heart rate 61 /min Jeremias Damico MD Work Phone: [facility] 12-17-2024 09:53-0400 Respiratory rate 16 /min Jeremias Damico MD Work Phone: [facility] 12-17-2024 09:53-0400 SaO2% (BldA) [Mass fraction] 99 % Jeremias Damico MD Work Phone: [facility] 11-19-2024 11:09-0400 Body mass index (BMI) [Ratio] 25.12 kg/m2 Jeremias Damico MD Work Phone: [facility] 11-19-2024 11:09-0400 Body weight 78 kg Jeremias Damico MD Work Phone: [facility] 11-19-2024 11:09-0400 Diastolic blood pressure 98 mm[Hg] Jeremias Damico MD Work Phone: [facility] 11-19-2024 11:09-0400 Heart rate 74 /min Jeremias Damico MD Work Phone: [facility] 11-19-2024 11:09-0400 Respiratory rate 16 /min Jeremias Damico MD Work Phone: [facility] 11-19-2024 11:09-0400 Systolic blood pressure 142 mm[Hg] Jeremias Damico MD Work Phone: [facility] 10-13-2024 16:25-0400 Body mass index (BMI) [Ratio] 25.57 kg/m2 Jeremias Damico MD Work Phone: [facility] 10-13-2024 16:25-0400 Body weight 79.4 kg Jeremias Damico MD Work Phone: [facility] 10-13-2024 16:25-0400 Diastolic blood pressure 82 mm[Hg] Jeremias Damico MD Work Phone: [facility] 10-13-2024 16:25-0400 Heart rate 78 /min Jeremias Damico MD Work Phone: [facility] 10-13-2024 16:25-0400 Respiratory rate 16 /min Jeremias Damico MD Work Phone: [facility] 10-13-2024 16:25-0400 SaO2% (BldA) [Mass fraction] 99 % Jeremias Damico MD Work Phone: [facility] 10-13-2024 16:25-0400 Systolic blood pressure 140 mm[Hg] Jeremias Damico MD Work Phone: [facility] 09-04-2024 16:31-0400 Body mass index (BMI) [Ratio] 25.9 kg/m2 Jeremias Damico MD Work Phone: [facility] 09-04-2024 16:31-0400 Body weight 80.4 kg Jeremias Damico MD Work Phone: [facility] 09-04-2024 16:31-0400 Diastolic blood pressure 98 mm[Hg] Jeremias Damico MD Work Phone: [facility] 09-04-2024 16:31-0400 Heart rate 74 /min Jeremias Damico MD Work Phone: [facility] 09-04-2024 16:31-0400 Respiratory rate 16 /min Jeremias Damico MD Work Phone: [facility] 09-04-2024 16:31-0400 Systolic blood pressure 160 mm[Hg] Jeremias Damico MD Work Phone: [facility] 08-04-2024 09:17-0400 Body height 176.2 cm Snow Dobrowski THORACIC MEDICINE SPECIALIST.TOOL SUPERVISOR Work Phone: [facility] 08-04-2024 09:17-0400 Body mass index (BMI) [Ratio] 25.93 kg/m2 Snow Dobrowski THORACIC MEDICINE SPECIALIST.TOOL SUPERVISOR Work Phone: [facility] 08-04-2024 09:17-0400 Body weight 80.5 kg Snow Dobrowski THORACIC MEDICINE SPECIALIST.TOOL SUPERVISOR Work Phone: [facility] 08-04-2024 09:17-0400 Diastolic blood pressure 77 mm[Hg] Snow Dobrowski THORACIC MEDICINE SPECIALIST.TOOL SUPERVISOR Work Phone: [facility] 08-04-2024 09:17-0400 Heart rate 55 /min Snow Dobrowski THORACIC MEDICINE SPECIALIST.TOOL SUPERVISOR Work Phone: [facility] 08-04-2024 09:17-0400 Respiratory rate 20 /min Snow Dobrowski THORACIC MEDICINE SPECIALIST.TOOL SUPERVISOR Work Phone: [facility] 08-04-2024 09:17-0400 Systolic blood pressure 147 mm[Hg] Nsow Dobrowski THORACIC MEDICINE SPECIALIST.TOOL SUPERVISOR Work Phone: [facility] 01-30-2024 09:47-0400 Body mass index (BMI) [Ratio] 25.45 kg/m2 Snow Doramonwski THORACIC MEDICINE SPECIALIST.TOOL SUPERVISOR Work Phone: [facility] 01-30-2024 09:47-0400 Body weight 79 kg Snow Doeverki THORACIC MEDICINE SPECIALIST.TOOL SUPERVISOR Work Phone: [facility] 01-30-2024 09:47-0400 Diastolic blood pressure 73 mm[Hg] Snow Dobrowski THORACIC MEDICINE SPECIALIST.TOOL SUPERVISOR Work Phone: [facility] 01-30-2024 09:47-0400 Heart rate 63 /min Snow Doeverki THORACIC MEDICINE SPECIALIST.TOOL SUPERVISOR Work Phone: [facility] 01-30-2024 09:47-0400 SaO2% (BldA) [Mass fraction] 97 % Snow Dogunner THORACIC MEDICINE SPECIALIST.TOOL SUPERVISOR Work Phone: [facility] 01-30-2024 09:47-0400 Systolic blood pressure 155 mm[Hg] Snow Dobrowski THORACIC MEDICINE SPECIALIST.TOOL SUPERVISOR Work Phone: [facility] 01-24-2024 10:11-0400 Body mass index (BMI) [Ratio] 25.35 kg/m2 Zeeshan Mahmood THORACIC MEDICINE SPECIALIST.TOOL SUPERVISOR Work Phone: [facility] 01-24-2024 10:11-0400 Body weight 78.7 kg Zeeshan Renaldo THORACIC MEDICINE SPECIALIST.TOOL SUPERVISOR Work Phone: [facility] 01-24-2024 10:11-0400 Diastolic blood pressure 82 mm[Hg] Zeeshan Renaldo THORACIC MEDICINE SPECIALIST.TOOL SUPERVISOR Work Phone: [facility] 01-24-2024 10:11-0400 Heart rate 63 /min Zeeshan Renaldo THORACIC MEDICINE SPECIALIST.TOOL SUPERVISOR Work Phone: [facility] 01-24-2024 10:11-0400 Respiratory rate 16 /min Zeeshan Renaldo THORACIC MEDICINE SPECIALIST.TOOL SUPERVISOR Work Phone: [facility] 01-24-2024 10:11-0400 SaO2% (BldA) [Mass fraction] 98 % Zeeshan Mahmood APRN.TOOL SUPERVISOR Work Phone: [facility] 01-24-2024 10:11-0400 Systolic blood pressure 138 mm[Hg] Zeeshan Mahmood APRN.TOOL SUPERVISOR Work Phone: [facility] 12-31-2023 15:27-0400 Body height 176.2 cm Shaq Bishop PA-C Work Phone: [facility] 12-31-2023 15:27-0400 Body mass index (BMI) [Ratio] 25.42 kg/m2 Shaq Bishop PA-C Work Phone: [facility] 12-31-2023 15:27-0400 Body temperature 97.5 [degF] Shaq Bishop PA-C Work Phone: [facility] 12-31-2023 15:27-0400 Body weight 78.93 kg Shaq Bishop PA-C Work Phone: [facility] 12-31-2023 15:27-0400 Diastolic blood pressure 80 mm[Hg] Shaq Bishop PA-C Work Phone: [facility] 12-31-2023 15:27-0400 Heart rate 70 /min Shaq Bishop PA-C Work Phone: [facility] 12-31-2023 15:27-0400 Respiratory rate 16 /min Shaq Bishop PA-C Work Phone: [facility] 12-31-2023 15:27-0400 SaO2% (BldA) [Mass fraction] 97 % Shaq Bishop PA-C Work Phone: [facility] 12-31-2023 15:27-0400 Systolic blood pressure 118 mm[Hg] Shaq Bishop PA-C Work Phone: [facility] 07-14-2023 10:49-0400 Respiratory rate 16 /min [facility] 07-14-2023 08:26-0400 Body height 177.8 cm [facility] 07-14-2023 08:26-0400 Body mass index (BMI) [Ratio] 25 kg/m2 [facility] 07-14-2023 08:26-0400 Body temperature 96.6 [degF] [facility] 07-14-2023 [id number] Body weight 78.92 kg [facility] 07-14-2023 08:26-0400 Diastolic blood pressure 90 mm[Hg] [facility] 07-14-2023 08:26-0400 Heart rate 73 /min [facility] 07-14-2023 08:26-0400 SaO2% (BldA) [Mass fraction] 98 % [facility] 07-14-2023 08:26-0400 Systolic blood pressure 159 mm[Hg] [facility] 03-27-2023 09:06-0500 Body temperature 97.2 [degF] Susan Donis APRN.TOOL SUPERVISOR Work Phone: [facility] 03-27-2023 09:06-0500 Body weight 80.29 kg Susan Donis APRN.TOOL SUPERVISOR Work Phone: [facility] 03-27-2023 09:06-0500 Diastolic blood pressure 76 mm[Hg] Susan Donis APRN.TOOL SUPERVISOR Work Phone: [facility] 03-27-2023 09:06-0500 Heart rate 72 /min Susan Donis APRN.TOOL SUPERVISOR Work Phone: [facility] 03-27-2023 09:06-0500 Respiratory rate 16 /min Susan Donis APRN.TOOL SUPERVISOR Work Phone: [facility] 03-27-2023 09:06-0500 SaO2% (BldA) [Mass fraction] 98 % Susan Donis APRN.TOOL SUPERVISOR Work Phone: [facility] 03-27-2023 09:06-0500 Systolic blood pressure 122 mm[Hg] Susan Donis APRN.TOOL SUPERVISOR Work Phone: [facility] 02-01-2023 12:44-0400 Body weight 79.74 kg Zeeshan Renaldo THORACIC MEDICINE SPECIALIST.TOOL SUPERVISOR Work Phone: [facility] 02-01-2023 12:44-0400 Diastolic blood pressure 80 mm[Hg] Zeeshan Renaldo THORACIC MEDICINE SPECIALIST.TOOL SUPERVISOR Work Phone: [facility] 02-01-2023 12:44-0400 Heart rate 70 /min Zeeshan Renaldo THORACIC MEDICINE SPECIALIST.TOOL SUPERVISOR Work Phone: [facility] 02-01-2023 12:44-0400 Respiratory rate 16 /min Zeeshan Renaldo THORACIC MEDICINE SPECIALIST.TOOL SUPERVISOR Work Phone: [facility] 02-01-2023 12:44-0400 SaO2% (BldA) [Mass fraction] 98 % Zeeshan Renaldo THORACIC MEDICINE SPECIALIST.TOOL SUPERVISOR Work Phone: [facility] 02-01-2023 12:44-0400 Systolic blood pressure 134 mm[Hg] Zeeshan Renaldo THORACIC MEDICINE SPECIALIST.TOOL SUPERVISOR Work Phone: [facility] 01-22-2023 10:01-0400 Body height 177.8 cm Zeeshan Renaldo THORACIC MEDICINE SPECIALIST.TOOL SUPERVISOR Work Phone: [facility] 01-22-2023 10:01-0400 Body temperature 97.5 [degF] Zeeshan Renaldo THORACIC MEDICINE SPECIALIST.TOOL SUPERVISOR Work Phone: [facility] 01-22-2023 10:01-0400 Body weight 78.83 kg Zeeshan Renaldo THORACIC MEDICINE SPECIALIST.TOOL SUPERVISOR Work Phone: [facility] 01-22-2023 10:01-0400 Diastolic blood pressure 78 mm[Hg] Zeeshan Renaldo THORACIC MEDICINE SPECIALIST.TOOL SUPERVISOR Work Phone: [facility] 01-22-2023 10:01-0400 Heart rate 60 /min Zeeshan Renaldo THORACIC MEDICINE SPECIALIST.TOOL SUPERVISOR Work Phone: [facility] 01-22-2023 10:01-0400 Respiratory rate 16 /min Zeeshan Renaldo THORACIC MEDICINE SPECIALIST.TOOL SUPERVISOR Work Phone: [facility] 01-22-2023 10:01-0400 SaO2% (BldA) [Mass fraction] 99 % Zeeshan Renaldo THORACIC MEDICINE SPECIALIST.TOOL SUPERVISOR Work Phone: [facility] 01-22-2023 10:01-0400 Systolic blood pressure 130 mm[Hg] Zeeshan Renaldo THORACIC MEDICINE SPECIALIST.TOOL SUPERVISOR Work Phone: [facility] 01-21-2023 12:44-0400 Body height 177.8 cm Snow Dobrowski THORACIC MEDICINE SPECIALIST.TOOL SUPERVISOR Work Phone: [facility] 01-21-2023 12:44-0400 Body weight 74.84 kg Snow Dobrowski THORACIC MEDICINE SPECIALIST.TOOL SUPERVISOR Work Phone: [facility] 01-21-2023 12:44-0400 Diastolic blood pressure 72 mm[Hg] Snow Dobrowski THORACIC MEDICINE SPECIALIST.TOOL SUPERVISOR Work Phone: [facility] 01-21-2023 12:44-0400 Heart rate 69 /min Snow Dobrowski THORACIC MEDICINE SPECIALIST.TOOL SUPERVISOR Work Phone: [facility] 01-21-2023 12:44-0400 Respiratory rate 14 /min Snow Dobrowski THORACIC MEDICINE SPECIALIST.TOOL SUPERVISOR Work Phone: [facility] 01-21-2023 12:44-0400 SaO2% (BldA) [Mass fraction] 99 % Snow Dobrowski THORACIC MEDICINE SPECIALIST.TOOL SUPERVISOR Work Phone: [facility] 01-21-2023 12:44-0400 Systolic blood pressure 144 mm[Hg] Snow Dobrowski THORACIC MEDICINE SPECIALIST.TOOL SUPERVISOR Work Phone: [facility] 05-01-2022 09:58-0500 Body height 177.8 cm Shaq Bishop PA-C Work Phone: [facility] 05-01-2022 09:58-0500 Body temperature 97 [degF] Shaq Bishop PA-C Work Phone: [facility] 05-01-2022 09:58-0500 Body weight 75.75 kg Shaq Bishop PA-C Work Phone: [facility] 05-01-2022 09:58-0500 Diastolic blood pressure 88 mm[Hg] Shaq Bishop PA-C Work Phone: [facility] 05-01-2022 09:58-0500 Heart rate 70 /min Shaq Bishop PA-C Work Phone: [facility] 05-01-2022 09:58-0500 Respiratory rate 12 /min Shaq Bishop PA-C Work Phone: [facility] 05-01-2022 09:58-0500 SaO2% (BldA) [Mass fraction] 98 % Shaq Bishop PA-C Work Phone: [facility] 05-01-2022 09:58-0500 Systolic blood pressure 140 mm[Hg] Shaq Bishop PA-C Work Phone: [facility] 02-16-2022 10:29-0400 Body height 177.8 cm Snow Dobrowski THORACIC MEDICINE SPECIALIST.TOOL SUPERVISOR Work Phone: [facility] 02-16-2022 10:29-0400 Body weight 73.03 kg Snow Dobrowski THORACIC MEDICINE SPECIALIST.TOOL SUPERVISOR Work Phone: [facility] 02-16-2022 10:29-0400 Diastolic blood pressure 73 mm[Hg] Snow Dobrowski THORACIC MEDICINE SPECIALIST.TOOL SUPERVISOR Work Phone: [facility] 02-16-2022 10:29-0400 Heart rate 59 /min Snow Dobrowski THORACIC MEDICINE SPECIALIST.TOOL SUPERVISOR Work Phone: [facility] 02-16-2022 10:29-0400 Systolic blood pressure 148 mm[Hg] Snow Dobrowski THORACIC MEDICINE SPECIALIST.TOOL SUPERVISOR Work Phone: [facility] 01-30-2022 11:20-0400 Body height 177.8 cm Shaq Bishop PA-C Work Phone: [facility] 01-30-2022 11:20-0400 Body temperature 97.11 [degF] Shqa Bishop PA-C Work Phone: [facility] 01-30-2022 11:20-0400 Body weight 77.56 kg Shaq Bishop PA-C Work Phone: [facility] 01-30-2022 11:20-0400 Diastolic blood pressure 98 mm[Hg] Shaq Bishop PA-C Work Phone: [facility] 01-30-2022 11:20-0400 Heart rate 64 /min Shaq Bishop PA-C Work Phone: [facility] 01-30-2022 11:20-0400 Respiratory rate 14 /min Hsaq Bishop PA-C Work Phone: [facility] 01-30-2022 11:20-0400 SaO2% (BldA) [Mass fraction] 99 % Shaq Bishop PA-C Work Phone: [facility] 01-30-2022 11:20-0400 Systolic blood pressure 154 mm[Hg] Shaq Bishop PA-C Work Phone: [facility] 01-19-2022 13:09-0400 Body height 176.5 cm Zeeshan Mahmood THORACIC MEDICINE SPECIALIST.TOOL SUPERVISOR Work Phone: [facility] 01-19-2022 13:09-0400 Body temperature 96.6 [degF] Zeeshan Renaldo THORACIC MEDICINE SPECIALIST.TOOL SUPERVISOR Work Phone: [facility] 01-19-2022 13:09-0400 Body weight 78.7 kg Zeeshan Renaldo THORACIC MEDICINE SPECIALIST.TOOL SUPERVISOR Work Phone: [facility] 01-19-2022 13:09-0400 Diastolic blood pressure 84 mm[Hg] Zeeshan Renaldo THORACIC MEDICINE SPECIALIST.TOOL SUPERVISOR Work Phone: [facility] 01-19-2022 13:09-0400 Heart rate 60 /min Zeeshan Renaldo THORACIC MEDICINE SPECIALIST.TOOL SUPERVISOR Work Phone: [facility] 01-19-2022 13:09-0400 Respiratory rate 16 /min Zeeshan Renaldo THORACIC MEDICINE SPECIALIST.TOOL SUPERVISOR Work Phone: [facility] 01-19-2022 13: Systolic blood pressure 134 mm[Hg] Zeeshan Mahmood APRN.TOOL SUPERVISOR Work Phone: [facility] Encounters Encounter Date Encounter Type Care Provider Facility Start: 02-24-2025 Evaluation and manag ement of inpatient SHAWN CHAU Facility:[facility] Start: 02-24-20[facility] Start: 02-24-2025 ambulatory Shawn Chau Facility :[facility] Start: 02-24-2025 End: 02-24-2025 Evaluation and management of inpatient Anibal Bellorohitnaresh Facility:[facility] Start: 02-16-2025 End: 02-16-2025 [facility] Facility:[facility] Start: 12-22-2024 End: 12-22-2024 Patient encounter procedure Shaq Bishop PA-C Work Phone: Urology Comment on above: 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); Screening for genitourinary condition Start: 12-22-2024 End: 12-22-2024 [facility] Facility:[facility] Start: 12-17-2024 End: 12-17-2024 [facility] Facility:[facility] Start: 12-17-2024 End: 12-17-2024 Patient encounter procedure Jeremisa Damico MD Work Phone: [facility] Comment on above: Acquired hypothyroid ism (Primary Dx); Primary hypertension; Encounter for Medicare annual wellness exam; Episodic cluster headache, not intractable; Benign prostatic hyperplasia without lower urinary tract symptoms Start: 12-14-2024 End: 12-14-2024 [facility] Facility:[facility] Start: 11-19-2024 End: 11-19-2024 Office outpatient visit 25 minutes Jeremias Damico MD Work Phone: [facility] Comment on above: Acquired hypothyroid ism (Primary Dx); Primary hypertension Start: 11-19-2024 End: 11-19-2024 [facility] Facility:[facility] Start: 10-13-2024 End: 10-13-2024 Office outpatient visit 15 minutes Jeremias Damico MD Work Phone: [facility] Comment on above: Primary hypertension (Primary Dx) Start: 10-13-2024 End: 10-13-2024 ambulatory [facility] Facility:[facility] Start: 09-04-2024 End: 09-04-2024 Office outpatient visit 25 minutes Jeremias Damico MD Work Phone: [facility] Comment on above: Primary hypertension (Primary Dx) Start: 09-04-2024 End: 09-04-2024 ambulatory [facility] Facility:[facility] Start: 08-27-2024 End: 09-01-2024 ambulatory Zeeshan Mahmood APRN.TOOL SUPERVISOR Work Phone: [facility] Comment on above: Blood pressure Start: 08-18-2024 End: 08-18-2024 ambulatory Sarmad Newton RN Work Phone: [employer] Comment on above: Population Health [facility] v[facility] ([facility] ) Start: 08-04-2024 End: 08-04-2024 [facility] Facility:[facility] Start: 08-04-2024 End: 08-04-2024 Office outpatient visit 15 minutes Snow Brooks APRN.TOOL SUPERVISOR Work Phone: Neurology Comment on above: Episodic cluster hea dache, not intractable (Primary Dx) Start: 01-30-2024 End: 01-30-2024 Patient encounter procedure Snow Brooks APRN.TOOL SUPERVISOR Work Phone: Neurology Comment on above: Episodic cluster hea dache, not intractable (Primary Dx) Start: 01-24-2024 End: 01-24-2024 Patient encounter procedure Zeeshan Mahmood APRN.TOOL SUPERVISOR Work Phone: [facility] [place] Comment on above: Medicare annual well ness visit, subsequent (Primary Dx); Acquired hypothyroidism; Episodic cluster headache, not intractable; Encounter for immunization; Screening for depression; Encounter for screening examination for other mental health and behavioral disorders Start: 01-21-2024 End: 01-21-2024 Nursing evaluation of patient and report Mi Nurse Work Phone: [facility] Comment on above: Episodic cluster hea dache, not intractable Start: 01-09-2024 End: 01-14-2024 Refill Shaq Bishop PA-C Work Phone: Urology Comment on above: Refill Request Start: 01-01-2024 End: 01-03-2024 Patient encounter procedure Jeremias Damico MD Work Phone: [facility] Start: 01-01-2024 End: 01-03-2024 Telephone encounter Jeremias Damico MD Work Phone: [facility] Comment on above: Orders Start: 12-31-2023 End: 12-31-2023 Patient encounter procedure Shaq Bishop PA-C Work Phone: Urology Comment on above: 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) Start: 12-06-2023 End: 12-09-2023 Telephone encounter Snow Brooks APRN.TOOL SUPERVISOR Work Phone: Neurology Comment on above: Orders Start: 09-02-2023 Refill Snow zafar APRN.TOOL SUPERVISOR Work Phone: Neurology Comment on above: Refill Request Start: 07-14-2023 End: 07-14-2023 Emergency department patient visit [facility] Work Phone: Start: 03-27-2023 End: 03-27-2023 Patient encounter procedure Susan Donis APRN.TOOL SUPERVISOR Work Phone: [facility] Comment on above: URI, acute (Primary Dx) Start: 02-18-2023 ambulatory Zeeshan MOE RN.TOOL SUPERVISOR Work Phone: [facility] Comment on above: This is part two Start: 02-01-2023 End: 02-01-2023 Office outpatient visit 15 minutes Zeeshan Mahmood APRN.TOOL SUPERVISOR Work Phone: [facility] Comment on above: Difficulty sleeping (Primary Dx) Start: 01-24-2023 End: 01-24-2023 Nursing evaluation of patient and report Mi Nurse Work Phone: [facility] Comment on above: Episodic cluster hea dache, not intractable (Primary Dx) Start: 01-22-2023 End: 01-22-2023 Patient encounter procedure Zeeshan Renaldo THORACIC MEDICINE SPECIALIST.TOOL SUPERVISOR Work Phone: [facility] Comment on above: Medicare annual well ness visit, subsequent (Primary Dx); Encounter for immunization; Acquired hypothyroidism; Episodic cluster headache, not intractable; BPH with obstruction/lower urinary tract symptoms Start: 01-21-2023 End: 01-21-2023 Patient encounter procedure Snow Brooks THORACIC MEDICINE SPECIALIST.TOOL SUPERVISOR Work Phone: Neurology Comment on above: Episodic cluster hea dache, not intractable (Primary Dx) Start: 12-27-2022 Telephone encounter Snow Buckner APRN.TOOL SUPERVISOR Work Phone: Neurology Comment on above: Orders (Labs) Start: 06-06-2022 ambulatory Snow Nimco zafar THORACIC MEDICINE SPECIALIST.TOOL SUPERVISOR Work Phone: Neurology Comment on above: Increase in Verapami l Start: 05-01-2022 End: 05-01-2022 Patient encounter procedure Shaq DESHPANDE-C Work Phone: Urology Comment on above: BPH with obstruction /lower urinary tract symptoms (Primary Dx); Erectile dysfunction due to diseases classified elsewhere Start: 03-30-2022 ambulatory Shaq Bishop PA-C Work Phone: Urology Comment on above: unable to gain erect ion Start: 03-23-2022 Refill Jessica tabor PA-C Work Phone: Neurology Comment on above: Refill Request Start: 02-16-2022 ambulatory Snow Nimco zafar THORACIC MEDICINE SPECIALIST.TOOL SUPERVISOR Work Phone: Neurology Comment on above: EKG Start: 02-16-2022 End: 02-16-2022 Patient encounter procedure Snow Brooks THORACIC MEDICINE SPECIALIST.TOOL SUPERVISOR Work Phone: Neurology Comment on above: Episodic cluster hea dache, not intractable Start: 02-15-2022 End: 02-15-2022 Nursing evaluation of patient and report Mi Nurse Work Phone: [facility] [place] Comment on above: Episodic cluster hea dache, not intractable Start: 01-30-2022 End: 01-30-2022 Patient encounter procedure Shaq Bishop PA-C Work Phone: Urology Comment on above: Post-void dribbling (Primary Dx); BPH with obstruction/lower urinary tract symptoms Start: 01-19-2022 End: 01-19-2022 Patient encounter procedure Zeeshan Mahmood APRN.TOOL SUPERVISOR Work Phone: [facility] Comment on above: Medicare annual well ness visit, subsequent (Primary Dx); Need for influenza vaccination; Immunization due; Episodic cluster headache, not intractable; Acquired hypothyroidism; BPH with obstruction/lower urinary tract symptoms Start: 01-04-2022 Patient encounter status Jeremias Damico MD Work Phone: [address] [place] [address] Start: 01-04-2022 Telephone encounter Jeremias wagoner MD Work Phone: [address] [place] [address] Comment on above: Orders Orders (Lab work) Start: 10-09-2021 Refill Jeremias alex MD Work Phone: [facility] Comment on above: Refill Request Start: 08-29-2021 ambulatory Snow zafar APRN.TOOL SUPERVISOR Work Phone: Neurology Comment on above: Verapamil 80mg Procedures Date Procedure Procedure Detail Performing Clinician Start: 03-01-2025 Antibody screen SHAWN CHAU Comment on above: Order Comment: Speci men Type: BLOOD SPECIMEN Ordering Facility: [facility] Address: [address] [place] [address] Performed By: #### 3 016-3, 48286-7, HSTNT, 89656-3, 06107-1, [id number] #### [facility] CLIA [id number] [address] [place] Start: 02-25-2025 Antibody screen SHAWN CHAU Comment on above: Order Comment: Speci men Type: BLOOD SPECIMEN Ordering Facility: [facility] Address: [facility] [place] [address] Performed By: #### 3 016-3, 05624-4, HSTNT, 97408-6, 37284-3, 61761-2 #### [facility] CLIA [id number] [address] [place] Start: 12-22-2024 Urnls dip stick/tabl et rgnt auto w/o microscopy Shaq Bishop PA-C Work Phone: Start: 01-24-2024 PFIZER-BIONTECH COVI D-19 VACCINE AGE 12+ YR (COMIRNATY) Zeeshan Mahmood APRN.TOOL SUPERVISOR Work Phone: Start: 01-24-2024 Adult depression scr eening assessment Zeeshan Mahmood APRN.TOOL SUPERVISOR Work Phone: Start: 01-21-2024 Ecg routine ecg w/le ast 12 lds i&r only [facility] Provider Start: 12-31-2023 Urnls dip stick/tabl et rgnt auto w/o microscopy Shaq Bishop PA-C Work Phone: Start: 01-24-2023 Ecg routine ecg w/le ast 12 lds i&r only [facility] Provider Start: 01-22-2023 PFIZER-BIONTECH COVI D-19 VACCINE (2022- SEASON) AGE 12+ YR Zeeshan Mahmood APRN.TOOL SUPERVISOR Work Phone: Start: 01-22-2023 INFLUENZA VACCINE, P RSV FREE, AGE 65+ YR, HIGH DOSE, QUADRIVALENT (FLUZONE HIGH-DOSE) Zeeshan Mahmood APRN.TOOL SUPERVISOR Work Phone: Start: 05-01-2022 Urnls dip stick/tabl et rgnt auto w/o microscopy Shaq Bishop PA-C Work Phone: Start: 01-30-2022 Urnls dip stick/tabl et rgnt auto w/o microscopy Shaq Bishop PA-C Work Phone: Start: 01-19-2022 INFLUENZA SEASONAL QUADRIVALENT HIGH DOSE AGE 65+ Zeeshan Mahmood THORACIC MEDICINE SPECIALIST.TOOL SUPERVISOR Work Phone: Start: 01-19-2022 PFIZER-BIONTtxtr COVI D-19 BIVALENT BOOSTER VACCINE, AGE 12+ YR Zeeshan Mahmood THORACIC MEDICINE SPECIALIST.RUTHIE Work Phone: Plan of Treatment Date Care Activity Detail Author Start: 12-15-2027 Diabetes Screening Diabetes Screenin g [facility] Start: 07-31-2027 Urine microalbumin profile [facility] Start: 01-19-2027 Diabetes Screening Diabetes Screenin g [facility] Start: 01-15-2026 Diabetes Screening Diabetes Screenin g [facility] Start: 01-04-2026 End: 01-04-2026 Patient encounter procedure 01/04/2026 9:00 AM EDT Office Visit Urology [address] [place], [place] [phone] Shaq Bishop PA-C [address] [place] [address] yearly Urology Comment on above: yearly Start: 02-16-2025 End: 02-16-2025 Patient encounter procedure 02/16/2025 10:00 AM EDT Office Visit [facility] [address] [place], [place] [phone] Jeremias Damico MD [address] [place], [place] [phone] 2 month f/u--Flu Shot/Covid Shot [facility] Comment on above: 2 month f/u--Flu Anna t/Covid Shot Start: 01-29-2025 End: 01-29-2025 Patient encounter procedure 01/29/2025 8:40 AM EDT Office Visit [facility] [address] [place], [place] [id number] Zeeshan Mahmood APRN.TOOL SUPERVISOR [address] [place], [place] [id number] Medicare wellness [facility] Comment on above: Medicare wellness Start: 01-23-2025 Anxiety Screening Anxiety Screening [facility] Start: 01-23-2025 Depression Screening Depression Scre ening [facility] Start: 01-09-2025 DIABETES SCREEN DIABETES SCREEN [facility] Start: 12-21-2024 End: 03-22-2025 CBC panel - Blood by Automated count COMPLETE BLOOD COUNT Lab Routine Primary hypertension Acquired hypothyroidism Expected: 12/21/2024 (Approximate), Expires: 03/22/2025 [facility] Comment on above: Expected: 12/21/2024 (Approximate), Expires: 03/22/2025 Start: 12-21-2024 End: 03-22-2025 Comprehensive metabolic 2000 panel - Serum or Plasma COMPREHENSIVE METABOLIC PANEL Lab Routine Primary hypertension Expected: 12/21/2024 (Approximate), Expires: 03/22/2025 [facility] Comment on above: Expected: 12/21/2024 (Approximate), Expires: 03/22/2025 Start: 12-21-2024 Influenza vaccination Influenza Vacc ine (#1) [facility] Start: 12-21-2024 End: 03-22-2025 Lipid 1996 panel - Serum or Plasma LIPID PANEL, FASTING Lab Routine Primary hypertension Expected: 12/21/2024 (Approximate), Expires: 03/22/2025 [facility] [facility] Comment on above: Expected: 12/21/2024 (Approximate), Expires: 03/22/2025 Start: 12-21-2024 End: 03-22-2025 Thyrotropin [Units/volume] in Serum or Plasma THYROID STIMULATING HORMONE Lab Routine Acquired hypothyroidism Expected: 12/21/2024 (Approximate), Expires: 03/22/2025 [facility] Work Phone: Comment on above: Expected: 12/21/2024 (Approximate), Expires: 03/22/2025 Start: 12-17-2024 End: 12-17-2024 Patient encounter procedure 12/17/2024 10:00 AM EDT Office Visit Family [facility] [place] [address] [place] [address] Jeremias Damico MD [address] [facility] [place] [address] medicare wellness [facility] Comment on above: medicare wellness Start: 11-19-2024 End: 11-19-2024 Patient encounter procedure 11/19/2024 11:20 AM EDT Office Visit [facility] [place] [address] [place] [address] Jeremias Damico MD [address] [place] [address] 1 month f/u BP [facility] Comment on above: 1 month f/u BP Start: 10-13-2024 End: 10-13-2024 Patient encounter procedure 10/13/2024 4:40 PM EDT Office Visit [facility] [place] [address] [place] [address] Jeremias Damico MD [address] [place] [address] 1 month follow up [facility] [place] Comment on above: 1 month follow up Start: 09-04-2024 End: 09-04-2024 Patient encounter procedure 09/04/2024 4:40 PM EDT Office Visit [facility] [place] [address] [place] [address] Jeremias Damico MD [address] [place] [address] 6 month f/u Bp check [facility] [place] Comment on above: 6 month f/u Bp check Start: 07-24-2024 Covid-19 Vaccine ( season) Covid-19 Vaccine ( season) [facility] Start: 04-22-2024 Advance Directive Discussion Advance Directive Discussion [facility] Start: 04-22-2024 Medicare Advantage Annual Wellness Visit Medicare Advantage Annual Wellness Visit [facility] Start: 02-28-2024 DIABETES SCREEN DIABETES SCREEN [facility] Start: 01-30-2024 End: 01-30-2024 Patient encounter procedure 01/30/2024 10:00 AM EDT Office Visit Neurology [address] [place] [address] Snow Brooks, THORACIC MEDICINE SPECIALIST.TOOL SUPERVISOR [address] [place] [address] headache Neurology Comment on above: headache Start: 01-24-2024 End: 01-24-2024 Patient encounter procedure [facility] [place] Comment on above: Medicare Wellness Start: 01-21-2024 End: 01-21-2024 Nursing evaluation of patient and report 01/21/2024 8:45 AM EDT Nurse Visit [facility] [place] [address] [place] [address] Nurse, [place] [address] [place] [address] ekg [facility] [place] Comment on above: ekg Start: 01-20-2024 End: 01-20-2024 ambulatory 01/20/2024 7:00 AM EDT [facility] [address] [place] [address] [facility] Start: 01-01-2024 End: 04-01-2024 CBC W Auto Differential panel - Blood COMPLETE BLOOD COUNT AND DIFFERENTIAL Lab Routine Medicare annual wellness visit, subsequent Expected: 01/01/2024, Expires: 04/01/2024 [facility] Comment on above: Expected: 01/01/2024 , Expires: 04/01/2024 Start: 01-01-2024 End: 04-01-2024 Comprehensive metabolic 2000 panel - Serum or Plasma COMPREHENSIVE METABOLIC PANEL Lab Routine Medicare annual wellness visit, subsequent Expected: 01/01/2024, Expires: 04/01/2024 [facility] Comment on above: Expected: 01/01/2024 , Expires: 04/01/2024 Start: 01-01-2024 End: 04-01-2024 Lipid 1996 panel - Serum or Plasma LIPID PANEL BASIC Lab Routine Medicare annual wellness visit, subsequent Expected: 01/01/2024, Expires: 04/01/2024 [facility] Work Phone: Comment on above: Expected: 01/01/2024 , Expires: 04/01/2024 Start: 01-01-2024 End: 04-01-2024 Thyrotropin [Units/volume] in Serum or Plasma THYROID STIMULATING HORMONE Lab Routine Acquired hypothyroidism Expected: 01/01/2024, Expires: 04/01/2024 [facility] Comment on above: Expected: 01/01/2024 , Expires: 04/01/2024 Start: 12-22-2023 Covid-19 Vaccine () Covid-19 Vaccine () [facility] Start: 12-22-2023 Covid-19 Vaccine () Covid-19 Vaccine () [facility] Start: 12-22-2023 Covid-19 Vaccine () Covid-19 Vaccine () [facility] Start: 12-22-2023 Influenza vaccination Influenza Vacc ine (#1) [facility] Start: 07-14-2023 [facility] Start: 05-25-2023 Covid-19 Vaccine (6 - Moderna series) Covid-19 Vaccine (6 - Moderna series) [facility] Start: 05-25-2023 Covid-19 Vaccine () Covid-19 Vaccine () [facility] Start: 04-22-2023 Advance Directive Discussion Advance Directive Discussion [facility] Start: 04-22-2023 Behavioral Health Screening Behavioral Health Screening [facility] Start: 03-27-2023 End: 04-10-2023 COVID & INFLUENZA A/B & RSV NAAT, ROUTINE [facility] Work Phone: Comment on above: Expected: 03/27/2023 , Expires: 04/10/2023 Start: 12-21-2022 Influenza vaccination [facility] Start: 05-21-2022 COVID-19 VACCINE (6 - Moderna series) COVID-19 VACCINE (6 - Moderna series) [facility] Start: 04-22-2022 ADVANCE DIRECTIVE DISCUSSION ADVANCE DIRECTIVE DISCUSSION [facility] Start: 04-22-2022 DEPRESSION ASSESSMENT DEPRESSION ASS ESSMENT [facility] Start: 03-21-2022 End: 05-21-2022 Thyrotropin [Units/volume] in Serum or Plasma TSH BLD Lab Routine Acquired hypothyroidism Expected: 03/21/2022 (Approximate), Expires: 05/21/2022 [facility] Work Phone: Comment on above: Expected: 03/21/2022 (Approximate), Expires: 05/21/2022 Start: 01-04-2022 End: 03-06-2022 CBC W Auto Differential panel - Blood CBC + DIFF Lab Routine Wellness examination Expected: 01/04/2022, Expires: 03/06/2022 [facility] Work Phone: Comment on above: Expected: 01/04/2022 , Expires: 03/06/2022 Start: 01-04-2022 End: 03-06-2022 Comprehensive metabolic 2000 panel - Serum or Plasma COMP METABOLIC PANEL Lab Routine Wellness examination Expected: 01/04/2022, Expires: 03/06/2022 [facility] Work Phone: Comment on above: Expected: 01/04/2022 , Expires: 03/06/2022 Start: 01-04-2022 End: 03-06-2022 Lipid 1996 panel - Serum or Plasma LIPID PANEL BASIC Lab Routine Wellness examination Expected: 01/04/2022, Expires: 03/06/2022 [facility] Work Phone: Comment on above: Expected: 01/04/2022 , Expires: 03/06/2022 Start: 01-04-2022 End: 03-06-2022 Thyrotropin [Units/volume] in Serum or Plasma TSH BLD Lab Routine Other specified hypothyroidism Expected: 01/04/2022, Expires: 03/06/2022 [facility] Work Phone: Comment on above: Expected: 01/04/2022 , Expires: 03/06/2022 Start: 12-21-2021 Influenza vaccination INFLUENZA (#1) [facility] Start: 06-24-2021 COVID-19 VACCINE (4 - Booster for Moderna series) COVID-19 VACCINE (4 - Booster for Moderna series) [facility] Start: 04-22-2021 ADVANCE DIRECTIVE DISCUSSION ADVANCE DIRECTIVE DISCUSSION [facility] Start: 02-08-2015 RSV Vaccine (1 - 1-d ose 75+ series) RSV Vaccine (1 - 1-dose 75+ series) [facility] Start: 2000 RSV Vaccine (1 - 1-d ose 60+ series) RSV Vaccine (1 - 1-dose 60+ series) [facility] Start: 02-08-1958 Anxiety Screening Anxiety Screening [facility] Start: 02-08-1958 Depression Screening Depression Scre ening [facility] End: 01-08-2023 ECG COMPLETE ECG COMPLETE ECG Routine Episodic cluster headache, not intractable 1 Occurrences starting 01/08/2022 until 01/08/2023 [facility] Work Phone: Comment on above: 1 Occurrences starti ng 01/08/2022 until 01/08/2023 End: 01-22-2024 ECG COMPLETE ECG COMPLETE ECG Routine Episodic cluster headache, not intractable 1 Occurrences starting 01/21/2023 until 01/22/2024 [facility] Work Phone: Comment on above: 1 Occurrences starti ng 01/21/2023 until 01/22/2024 End: 12-08-2024 ECG COMPLETE ECG COMPLETE ECG Routine Episodic cluster headache, not intractable 1 Occurrences starting 12/09/2023 until 12/08/2024 [facility] Work Phone: Comment on above: 1 Occurrences starti ng 12/09/2023 until 12/08/2024 ECG COMPLETE ECG COMPLETE ECG 01/21/2024 9:00 AM EDT [facility] Patient Education ED Epistaxis (Adult) [facility] Work Phone: Patient referral [facility] Work Phone: POST VOID RESIDUAL POST VOID RES IDUAL Procedures 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 Ordered: 01/30/2022 [facility] Work Phone: Comment on above: Ordered: 01/30/2022 POST VOID RESIDUAL POST VOID RES IDUAL Procedures 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 Ordered: 05/01/2022 [facility] Work Phone: Comment on above: Ordered: 05/01/2022 POST VOID RESIDUAL POST VOID RES IDUAL Procedures Routine BPH without obstruction/lower urinary tract symptoms Ordered: 12/31/2023 [facility] Work Phone: Comment on above: Ordered: 12/31/2023 POST VOID RESIDUAL POST VOID RES IDUAL Procedures Routine BPH without obstruction/lower urinary tract symptoms Screening for genitourinary condition Ordered: 12/22/2024 [facility] Work Phone: Comment on above: Ordered: 12/22/2024 [facility] Immunizations Immunization Date Immunization Notes Care Provider [facility] 01-24-2024 COVID-19 vaccine, ag e 12+ yr (PFIZER-BIONTECH COMIRNATY) Zeeshan Mahmood APRN.TOOL SUPERVISOR Work Phone: [facility] 01-24-2024 influenza, high dose seasonal, preservative-free Zeeshan Mahmood APRN.TOOL SUPERVISOR Work Phone: [facility] 01-24-2024 influenza virus vacc ine, unspecified formulation Jeremias Damico MD Work Phone: [facility] 01-22-2023 COVID-19 vaccine, ag e 12+ yr, season (PFIZER-BIONTECH) Zeeshan Mahmood APRN.TOOL SUPERVISOR Work Phone: [facility] 01-22-2023 influenza (HD-IIV4) vaccine, age 65+ yr, high dose, quadrivalent, PF (FLUZONE HIGH-DOSE) Zeeshan Mahmood THORACIC MEDICINE SPECIALIST.TOOL SUPERVISOR Work Phone: [facility] 01-22-2023 influenza virus vacc ine, unspecified formulation Snow Brooks THORACIC MEDICINE SPECIALIST.TOOL SUPERVISOR Work Phone: [facility] 01-19-2022 COVID-19 booster vaccine, age 12+ yr, bivalent (PFIZER-BIONTECH) Zeeshan Mahmood APRN.TOOL SUPERVISOR Work Phone: [facility] 01-19-2022 influenza, high-dose , quadrivalent vaccine (FLUZONE HIGH DOSE QUADRIVALENT) Zeeshan Mahmood THORACIC MEDICINE SPECIALIST.TOOL SUPERVISOR Work Phone: [facility] 01-19-2022 influenza virus vacc ine, unspecified formulation Snow Brooks THORACIC MEDICINE SPECIALIST.TOOL SUPERVISOR Work Phone: [facility] 02-24-2021 COVID-19 vaccine, fu ll dose (MODERNA) Snow Brooks THORACIC MEDICINE SPECIALIST.TOOL SUPERVISOR Work Phone: [facility] 01-27-2021 influenza, high-dose , quadrivalent vaccine (FLUZONE HIGH DOSE QUADRIVALENT) Snow Brooks THORACIC MEDICINE SPECIALIST.TOOL SUPERVISOR Work Phone: [facility] 06-16-2020 COVID-19 vaccine, fu ll dose (MODERNA) Snow Brooks THORACIC MEDICINE SPECIALIST.TOOL SUPERVISOR Work Phone: [facility] 05-19-2020 COVID-19 vaccine, fu ll dose (MODERNA) Snow Brooks THORACIC MEDICINE SPECIALIST.TOOL SUPERVISOR Work Phone: [facility] 04-02-2020 zoster vaccine recombinant Snow Doeverki THORACIC MEDICINE SPECIALIST.TOOL SUPERVISOR Work Phone: [facility] 01-31-2020 influenza, high dose seasonal, preservative-free Snow Dobrowski THORACIC MEDICINE SPECIALIST.TOOL SUPERVISOR Work Phone: [facility] 01-31-2020 zoster vaccine recombinant Snow Dobrowski THORACIC MEDICINE SPECIALIST.TOOL SUPERVISOR Work Phone: [facility] 01-19-2019 influenza, high dose seasonal, preservative-free Snow Dobrowski THORACIC MEDICINE SPECIALIST.TOOL SUPERVISOR Work Phone: [facility] 01-15-2018 influenza, high dose seasonal, preservative-free Snow Dobrowski THORACIC MEDICINE SPECIALIST.TOOL SUPERVISOR Work Phone: [facility] 07-30-2017 tetanus toxoid, redu regina diphtheria toxoid, and acellular pertussis vaccine, adsorbed Snow Yukiki THORACIC MEDICINE SPECIALIST.TOOL SUPERVISOR Work Phone: [facility] Work Phone: 02-01-2017 influenza, high dose seasonal, preservative-free Snow Dobrowski THORACIC MEDICINE SPECIALIST.[facility] Work Phone: [facility] 02-14-2016 influenza, high dose seasonal, preservative-free Snow Dobrowski THORACIC MEDICINE SPECIALIST.[facility] Work Phone: [facility] 04-27-2015 influenza, high dose seasonal, preservative-free Snow Dobrowski THORACIC MEDICINE SPECIALIST.[facility] Work Phone: [facility] 04-27-2015 pneumococcal conjuga te vaccine, 13 valent Snow Dobrowski THORACIC MEDICINE SPECIALIST.[facility] Work Phone: [facility] 04-27-2015 tetanus toxoid, redu regina diphtheria toxoid, and acellular pertussis vaccine, adsorbed Snow Dobrowski THORACIC MEDICINE SPECIALIST.[facility] Work Phone: [facility] 03-15-2014 influenza, high dose seasonal, preservative-free Snow Dobrowski THORACIC MEDICINE SPECIALIST.[facility] Work Phone: [facility] Work Phone: 03-11-2013 influenza virus vacc ine, unspecified formulation Snow Dobrowski THORACIC MEDICINE SPECIALIST.[facility] Work Phone: [facility] Work Phone: 03-10-2012 influenza virus vacc ine, unspecified formulation Snow Dobrowski THORACIC MEDICINE SPECIALIST.[facility] Work Phone: [facility] Work Phone: 04-11-2011 influenza virus vacc ine, unspecified formulation Snow Dobrowski THORACIC MEDICINE SPECIALIST.TOOL SUPERVISOR Work Phone: [facility] Work Phone: 04-11-2011 zoster vaccine, live Snow D obrowski THORACIC MEDICINE SPECIALIST.[facility] Work Phone: [facility] Work Phone: 03-11-2009 influenza virus vacc ine, unspecified formulation Snow Dobrowski THORACIC MEDICINE SPECIALIST.[facility] Work Phone: [facility] Work Phone: 03-02-2008 influenza virus vacc ine, unspecified formulation Snow Brooks APRN.TOOL SUPERVISOR Work Phone: [facility] Work Phone: 03-18-2007 influenza virus vacc ine, unspecified formulation Snow Brooks APRN.TOOL SUPERVISOR Work Phone: [facility] Work Phone: 01-17-2006 pneumococcal polysaccharide vaccine, 23 valent Snow Brooks APRN.TOOL SUPERVISOR Work Phone: [facility] Work Phone: 02-03-2005 tetanus and diphther ia toxoids, adsorbed, preservative free, for adult use (2 Lf of tetanus toxoid and 2 Lf of diphtheria toxoid) Snow Brooks APRN.TOOL SUPERVISOR Work Phone: [facility] Work Phone: Payers Date Payer Category Payer Self-pay [id number] 2009 Medicare AET[employer] MEDICARE A ETNA MEDICARE PPO [id number] 2009-Present [phone] [address] [place] [address] PPO [id number] 2009 Medicare [employer]ET[employer] MEDICARE A ETNA MEDICARE PPO [id number] 2009-Present [phone] [address] [place] [address] PPO [id number] 2009 Medicare (Managed Care) [employer] [place] [id number] 2009 Private Health Insurance [id number] Unknown [id number] Unknown [id number] Unknown [id number] Unknown [id number] Social History Date Type Detail Facility Start: 01-21-2019 End: 01-19-2022 Tobacco smoking status NHIS Ex-smoker [facility] History of tobacco use Cigarette Smoker [facility] Start: 01-21-2019 End: 01-19-2022 Tobacco use and exposure Smokeless tobacco non-user [facility] Start: 07-03-2021 End: 03-27-2023 Alcohol intake Current non-drinker of alcohol (finding) [facility] Start: 11-06-2019 End: 01-18-2022 History SDOH Alcohol Frequency 1 [facility] Start: 02-20-2020 History SDOH Alcohol Std Drinks 98 [facility] Start: 02-20-2020 End: 01-18-2022 History SDOH Social Connections Phone 2 [facility] Start: 11-06-2019 End: 02-20-2020 History SDOH Social Connections Sabianist 3 [facility] Start: 02-20-2020 History SDOH Physical Activity DPW 7 [facility] Start: 11-12-2019 History SDOH Financial 5 [facility] Start: 11-06-2019 Education 20 [facility] Start: 01-21-2019 End: 01-19-2022 Tobacco Comment for 2 years when patient was 20yrs old [facility] Start: 1940 Sex Assigned At Male [facility] History of tobacco use Current smoker [facility] Start: 12-25-2021 End: 02-16-2022 Exposure to SARS-CoV-2 (event) Not sure [facility] Start: 02-20-2020 End: 01-15-2023 History of Social function [facility] Start: 02-20-2020 End: 01-15-2023 Social connection and isolation panel [facility] Start: 03-23-2012 Frequency of Social Gatherings with Friends and Family Not on file [facility] Do you feel stress - tense, restless, nervous, or anxious, or unable to sleep at night because your mind is troubled all the time - these days [OSQ] Not at all [facility] (I/We) worried augustin er (my/our) food would run out before (I/we) got money to buy more. Never true [facility] Work Phone: In the past 12 month s, was there a time when you were not able to pay the mortgage or rent on time? No [facility] Start: 11-17-2018 Gender identity Identifies as male gender (finding) [facility] Start: 11-17-2018 Sexual orientation Heterosexual (finding) [facility] Do you belong to any clubs or organizations such as yarsani groups, unions, fraternal or athletic groups, or school groups? Yes [facility] Are you now , , , , never or living with a partner? [facility] How often to you hav e a drink containing alcohol? Never [facility] Start: 07-14-2023 Tobacco smoking status NHIS Unknown if ever smoked [facility] Start: 11-04-2019 None [facility] Start: 11-04-2019 Spouse/ Significant Other [facility] Start: 12-31-2023 End: 12-22-2024 Alcoholic beverage intake Ex-drinker (finding) [facility] Functional Status Date Assessment Result Facility 03-15-2014 Are you deaf, or do you have serious difficulty hearing No 03/15/2014 1:56 PM MEERA VELASQUEZ [facility] 03-15-2014 Are you blind, or do you have serious difficulty seeing, even when wearing glasses No 03/15/2014 1:56 PM MEERA VELASQUEZ [facility] 03-15-2014 Do you have serious difficulty walking or climbing stairs No 03/15/2014 1:56 PM MEERA VELASQUEZ No [facility] 03-15-2014 Do you have difficul ty dressing or bathing No 03/15/2014 1:56 PM MEERA VELASQUEZ No [facility] 03-15-2014 Because of a physica l, mental, or emotional condition, do you have difficulty doing errands alone such as visiting a physician's office or shopping No 03/15/2014 1:56 PM MEERA VELASQUEZ [facility] Mental Status Date Assessment Result Facility 03-15-2014 Because of a physica l, mental, or emotional condition, do you have serious difficulty concentrating, remembering, or making decisions No 03/15/2014 1:56 PM MEERA VELASQUEZ [facility] Clinical Notes 05-10-2005 to 03-03-2025 Shaq Bishop PA-C - 12/22/2024 2:25 PM Leilani Ma LPN - 12/22/2024 1:46 PM Jeremias Mccoy MD - 12/17/2024 10:00 AM Jeremias Mccoy MD - 11/19/2024 11:20 AM EDT Note Date & Type Note Facility 03-03-2025 Note HNO ID: [id number] Author: ALESSANDRA SANDY RN Service: Care Management Author Type: Registered Nurse Type: Care Mgt Progress Note Filed: 03/03/2025 15:14 Note Text: CARE MANAGEMENT PROGRESS NOTE SERVICE DATE: 03/03/2025 SERVICE TIME: 1510 LOS: 6 days Needs Prior to Discharge: To Be Determined, Home Care Order, Facility or Agency Choices [place] of Choice Given: Yes Level of Care Discussed: Home Care Financial Disclosure Provided: Yes Financial Disclosure Comments: CC Affiliation Provider List: Home Care Provider list within the patient's requested geographic area shared with the patient/family: Yes of zip code: [address] Quality and resource use metrics shared with the patient that are relevant to the patient's goals of care and treatment preferences:: Yes Chart reviewed, patient admitted secondary to CP and Shortness of Breath with exertion. 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 PT is recommending home with a Wheeled Walker. Met with patient, spouse and son at bedside. Discussed d/c plan of home with SN follow up. Provided them with a C FOC list. Will need FOC, HHC order, and Wheeled Walker prior to d/c. Will continue to follow. SIGNATURE: Alessandra Sandy RN PATIENT NAME: Elsa Palacio DATE: March 03, 2025 TIME: 3:10 PM [facility] 03-03-2025 Note HNO ID: [id number] Author: ?, ?, ? Service: Pharmacy Author Type: Mechanic Type: Plan of Care Filed: 03/03/2025 12:31 Note Text: PHARMACY MEDICATION REVIEW Patient Name: Elsa Palacio : 1940 The following medications were updated within the [employer] medication list: Medications ADDED to [facility] medication list Medications CHANGED on [employer] [facility] [facility] medication list Medications REMOVED from [employer] medication list Additional comments: Verified medication information with e-scripts/dispense report and chart review. Confirmed medications with family. Family stated medication list is current. Family stated patient not taking any additional medications or supplements. Required follow up actions for nursing: None The below information represents the best possible medication history: Yes Medication history completed by: Mechanic: Pat Quick (Cement Worker) Source of history: Family: Reliability of source: Appears reliable, clearly identified: Medication name, Medication dose, Medication route, and Medication frequency and Spoke with spouse in room, Pharmacy records: e-scripts/dispense report, and [facility] records Medication nonadherence identified: No barriers noted Reconciliation completed: No, pharmacist not yet reviewed Patient interested in Bedside Delivery Services or using OP Pharmacy at discharge? Unable to assess Preferred outpatient pharmacy: [facility] [place] [address] - [address] [facility] [phone] [employer] [address] [place] [address] - [address] [facility] - [phone] [facility] [place] [address] - [facility] - [phone] Portal to Registered [facility] Sites Allergies: Cheese (See Vegetab* Comment:cluster headaches Milk Containing Pro* Intolerance Mold Comment:cluster headaches Penicillin G Comment:cluster h/a Pollen Comment:cluster headaches Vinegar Comment:cluster headaches Prior to Admission Medications Prescriptions Last Dose Informant Patient Reported? Taking? MELATONIN 3 MG TAB 02/24/2025 Yes Yes Sig: Take 6 mg by mouth daily at bedtime. docusate sodium(LOPEZ LIQUI-GELS 100 MG CAP) 02/25/2025 Morning Yes Yes Sig: Take 200 mg by mouth once daily. finasteride (PROSCAR) 5 mg tablet 02/25/2025 Morning No Yes Sig: Take 1 tablet by mouth once daily. levothyroxine (SYNTHROID) 100 mcg tablet 02/25/2025 Morning No Yes Sig: Take 1 tablet by mouth once daily. losartan (COZAAR) 100 mg tablet 02/25/2025 Morning No Yes Sig: Take 1 tablet by mouth once daily. tamsulosin (FLOMAX) 0.4 mg 02/25/2025 Morning No Yes Sig: Take 2 capsules by mouth once daily. therapeutic multivitamin ORAL tablet 02/25/2025 Morning Yes Yes Sig: Take by mouth once daily. verapamil SR (CALAN SR) 120 mg CR tablet 02/25/2025 Morning No Yes Sig: Take 1 tablet by mouth once daily. Facility-Administered Medications: None Pat Quick (Cement Worker)[id number] 03/03/2025 [facility] 03-03-2025 Note HNO ID: [id number] Author: AMY SANCHEZ MD Service: Critical Care Author Type: Physician Type: Progress Notes Filed: 03/03/2025 11:30 Note Text: MICU PROGRESS NOTE Service Date: 03/03/2025 Admission Date: 02/24/2025 LOS: 6 days Interval hx: Sitting up in the chair. Denies pain. Ready to walk and get moving. VITAL SIGNS Vital signs reviewed. BP 159/81 Pulse 72 Temp (Src) 98.4 (Pina Thermistor) Resp 18 Ht 5' 10 (1.78m) Wt 178 lb 5.6 oz (80.9kg) SpO2 94% BMI 25.59 kg/(m2). O2 Therapy: Nasal Cannula, Liters (Numeric Only): 3 Temp (24hrs), Av.6 ?C (97.9 ?F), Min:35.4 ?C (95.7 ?F), Max:37.2 ?C (99 ?F) INFUSIONS: lactated ringers, Last Rate: 50 mL/hr (03/03/25 0400) NET FLUID BALANCE Intake/Output Summary (Last 24 hours) at 03/03/2025 1127 Last data filed at 03/03/2025 0800 Gross per 24 hour Intake 6587.8 ml Output 3540 ml Net 3047.8 ml MEDICATIONS Current Facility-Administered Medications Medication Dose Route Frequency metoprolol tartrate (short acting) 12.5 mg tab(s) (LOPRESSOR) 12.5 mg ORAL q 12 H levothyroxine 100 mcg tab(s) (SYNTHROID) 100 mcg ORAL DAILY (6 AM) enoxaparin 40 mg injection (LOVENOX) 40 mg SUBCUTANEOUS DAILY lactated ringers iv infusion 50 mL/hr INTRAVENOUS CONTINUOUS albuterol 2.5 mg /3 mL (0.083 %) 2.5 mg (PROVENTIL) 2.5 mg INHALATION q 2 H PRN aspirin 162 mg chewable tab(s) 162 mg ORAL DAILY vancomycin iv piggyback 1.25 g in D5W 250 mL (VANCOCIN) 0.015 g/kg/dose INTRAVENOUS q 12 HR ondansetron (PF) 4 mg injection (ZOFRAN) 4 mg INTRAVENOUS q 6 H PRN potassium chloride iv piggyback 20 mEq/100 mL 20 mEq INTRAVENOUS PRN magnesium sulfate iv piggyback in sterile water 2 g 50 mL 2 g INTRAVENOUS PRN(NO DISPENSE) acetaminophen 1,000 mg tab(s) (TYLENOL) 1,000 mg ORAL QID lidocaine 4 % 1 patch (SALONPAS) 1 patch TRANSDERMAL DAILY And lidocaine patch - REMOVE OTHER AT BEDTIME And lidocaine - VERIFY PATCH OTHER q 8 H magnesium oxide 400 mg tab(s) (MAG-OX) 400 mg ORAL DAILY traMADol 50-100 mg tab(s) (ULTRAM) 50-100 mg ORAL q 6 H PRN morphine 2-4 mg injection 2-4 mg INTRAVENOUS q 4 H PRN aztreonam 2 g in D5W 100 mL Vial-Bag (AZACTAM) 2 g INTRAVENOUS q 12 HR INDWELLING CATHETERS: Lines, Drains, and Airways Line Duration Peripheral 02/25/25 0010 Left Antecubital 20 Gauge 6 days Peripheral 02/25/25 0600 Left Forearm 20 Gauge 6 days Arterial Line/Sheath 03/02/25 0715 Left Radial 1 day Central Line Quadruple Lumen 03/02/25 0826 1 day Drain Duration Indwelling Urinary Catheter 03/02/25 0745 [facility] Temperature Monitoring 16 Fr 1 day Chest Tube 03/02/25 1159 [facility] Mediastinal 32 Fr Tube #1 <1 day Chest Tube 03/02/25 1200 Left Pleural 28 Fr Tube #2 <1 day PHYSICAL EXAM: Gen: NAD CV: RRR Pulm: CTAB Abd: Soft, nt Ext: No edema Neuro: AAOx3, no focal deficits DATA: Diagnostic tests reviewed for today's visit: Most recent labs and imaging results. LABS: CBC, Coags, BMP, Mg, Phos Recent Labs 03/03/25 0405 03/02/25 1801 03/02/25 1408 03/02/25 0604 03/01/25 0607 WBC 13.46* -- 25.71* 8.49 7.95 HB 10.9* -- 11.6* 14.7 14.3 HCT 31.6* -- 33.1* 43.4 41.8 PLT 148* -- 166 222 201 INR -- -- 1.3 -- -- APTT -- -- 27.3 -- 61.7* NA 133* -- 135* 136 134* K 4.1 4.9 3.6* 4.1 4.2 CHLOR 101 -- 102 100 101 CO2 23 -- 22 26 21* BUN 11 -- 14 16 17 CREAT 0.85 -- 1.00 1.21 1.07 GLUC 93 -- 147* 100* 99 CA 8.4* -- 9.3 9.4 9.1 MG 1.7 -- 2.4* 2.0 1.8 IMPRESSION: # Acute anticipated post-op pulmonary insuffiencey # CAD s/p CABG 03/02/25 PLAN: - Wean oxygen for SpO2 > 90% - Albuterol PRN - IS, PT/OT, early ambulation, out of bed as able SIGNATURE: Amy Sanchez MD [facility]:[phone] DATE of SERVICE: 03/03/2025 [facility] 03-03-2025 Note HNO ID: [id number] Author: BECCA, DALILA, PA-C Service: Cardiovascular Surgery Author Type: Physician Energy Manager Type: Progress Notes Filed: 03/03/2025 15:34 Note Text: CARDIOTHORACIC SURGERY POSTOP PROGRESS NOTE SERVICE DATE: 03/03/2025 SERVICE TIME: 7:00 am Subjective S/P SURGERY: Procedure(s) (LRB): CABG x4 (MALAGON-LAD, SVG-distal RCA proper, SVG-OM1, SVG-D1) DATE OF SURGERY: 03/02/2025 POSTOP DAY #1 LOS: 6 HPI (per Rita Henley PA-C on 02/25/25): This is a 85 year old male with a PMHx of HTN, hypothyroidism, BPH, and cluster headaches who presented to [place] ED with exertional chest pain and shortness of breath. 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 TTE there also reporting normal EF, moderate , and severe MR. Patient noted to have possible a fib there as well. Patient on heparin gtt and transferred here for further work-up and eval for CABG and CTS consulted. INTERVAL EVENTS / PERTINENT ROS: Patient underwent CABG x 4 CABG x4 (MALAGON-LAD, SVG-distal RCA proper, SVG-OM1, SVG-D1) with Dr. Sagastume on 03/02/25. Patient was then transferred to CVICU in stable condition. Patient was extubated on time per early extubation protocol. No acute events overnight. 11 POD#1: Patient is seen and examined in CVICU this AM. Patient is HDS with SBP in the 120s with HR in 60-70s in sinus arrhythmia. Patient was hypertensive overnight requiring cardene. Cardene weaned off by this AM. Patient was extubated on time per early extubation protocol. Pt is oxygenating adequately on 3 L NC. UOP in last 12 hours was 1,460 cc. Patient was given all boluses overnight plus [address] output since OR was 810 cc. Patient is alert and oriented sitting in chair this AM. He states pain is controlled with current pain regimen. He states majority of pain is with inspiration. He had one episode of lightheadedness with standing. Patient is currently denying N/V/D, SOB, lightheadedness, diaphoresis, or palpitations. All relevant labs and imaging were reviewed. Objective Admission Weight: 78.2 kg (172 lb 6.4 oz) BP 159/81 Pulse 68 Temp 36.8 ?C (98.2 ?F) (Pina Thermistor) Resp 18 Ht 177.8 cm (5' 10) Wt 80.9 kg (178 lb 5.6 oz) SpO2 97% BMI 25.59 kg/m? Body surface area is 2 meters squared. Min/Max/Average Temperature AND Blood Pressure: Temp (24hrs), Av.6 ?C (97.8 ?F), Min:35.4 ?C (95.7 ?F), Max:37.2 ?C (99 ?F) Systolic (24hrs), Av , Min:69 , Max:149 Diastolic (24hrs), Av, Min:46, Max:78 Intake/Output Summary (Last 24 hours) at 03/03/2025 0702 Last data filed at 03/03/2025 0607 Gross per 24 hour Intake 9267.6 ml Output 3675 ml Net 5592.6 ml TELEMETRY: sinus arrhythmia PHYSICAL EXAM: General Appearance: Well appearing and sitting upright in chair; in NAD Skin: Midsternal incision dry AND intact without surrounding erythema, warmth, drainage and SVG covered by CJ wrap without evidence of drainage Neck: no JVD and RIJ intact with clean and dry dressing Lungs: Adventitious sounds heard likely due to chest tubes, Decreased at the bases without wheezing, crackles, rhonchi; normal respiratory effort Heart: irregular rhythm and regular rate Peripheral Vascular/Arteries: pulses intact, dorsalis pedis 2+ and right radial 2+, left radial art line in place Abdomen: soft, non-tender and bowel sounds present Neurologic/Psychiatric: oriented to time, place and person, alert and branch office administrator strength 5/5 Extremities: normal exam of the extremities and mild edema of bilateral dorsum of hands, trace edema to BLE Lines, Drains, and Airways Line Duration Peripheral 02/25/25 0010 Left Antecubital 20 Gauge 6 days Peripheral 02/25/25 0600 Left Forearm 20 Gauge 6 days Arterial Line/Sheath 03/02/25 0715 Left Radial <1 day Central Line Quadruple Lumen 03/02/25 0826 <1 day Drain Duration Chest Tube 03/02/25 1159 [facility] Mediastinal 32 Fr Tube #1 <1 day Chest Tube 03/02/25 1200 Left Pleural 28 Fr Tube #2 <1 day Indwelling Urinary Catheter 03/02/25 0745 [facility] Temperature Monitoring 16 Fr <1 day DATA: Diagnostic tests reviewed for today's visit: CXR: Lines, tubes, and devices: Endotracheal tube and enteric tube have been removed. Right internal jugular central line with tip in the mid to distal superior vena cava. Left-sided chest tube paralleling left hemidiaphragm. Intact median sternotomy wires and sternal plate. Overlying child monitor leads. Lungs and pleura: No pneumothorax. Diminished aeration remains at both lung bases due to postoperative atelectasis and probable pleural effusion. Cardiomediastinal silhouette: Stable. Other: No significant additional findings. Recent Labs 03/03/25 0405 03/02/25200903/02/25 1801 03/02/25 1408 03/02/25 0604 03/01/25 0607 RBC 3.46* -- -- 3.63* 4.70 4.60 WBC 13.46* -- -- 25.71* 8.49 7.95 HB 10.9* -- -- (more content not included)... [facility] 03-02-2025 Note HNO ID: [id number] Author: DANISH BRUMFIELD APRN.STOCK PLAN ADMINISTRATOR Service: Anesthesiology Author Type: Nurse Medical Center Director Type: Anesthesia Procedure Notes Filed: 03/02/2025 08:35 Note Text: ANESTHESIOLOGY PROCEDURE NOTE Airway General Information Procedure Start Time/Medication Administration: 03/02/2025 7:28 AM Procedure End Time: 03/02/2025 7:28 AM Patient location during procedure: OR Patient identity confirmed: arm band and patient Staffing Anesthesiologist: Brooks Montejo MD STOCK PLAN ADMINISTRATOR: Danish Brumfield APRN.STOCK PLAN ADMINISTRATOR Performed by: STOCK PLAN ADMINISTRATOR Indications and Patient Condition Indications for airway management: anesthesia and airway protection Preoxygenated: yes anesthesia circuit Patient position: sniffing Method: asleep Difficult Mask: No Airway Accessory: oral airway Final Airway Details Final airway type: endotracheal airwayFinal Endotracheal Airway: ETT Cuffed: yes Successful intubation technique: video laryngoscopy Devices used: Gallo Endotracheal tube insertion site: oral Blade: Ruddy Blade size: #4 ETT size (mm): 8.0 Measured from: lips Measurement (cm): 22 Placement verified by: chest auscultation and capnometry Cormack-Lehane Classification: grade I - full view of glottis Number of attempts at approach: 1 Airway not difficult SIGNATURE: Danish Brumfield APRN.CRNA PATIENT NAME: Elsa Palacio DATE: March 02, 2025 TIME: 8:34 AM CSN: [id number] [facility] 03-02-2025 Note HNO ID: [id number] Author: BROOKS MONTEJO MD Service: Anesthesiology Author Type: Physician Type: Anesthesia Procedure Notes Filed: 03/02/2025 08:26 Note Text: ANESTHESIOLOGY PROCEDURE NOTE CVL General Information Procedure Start Time/Medication Administration: 03/02/2025 7:31 AM Procedure End Time: 03/02/2025 7:44 AM Patient location during procedure: OR Timeout Performed Pre-procedure: timeout performed Consent Obtained: Yes Patient identity confirmed: arm band, care project manager/team coach and patient sedated or unresponsive Indication: central venous access and CVP monitoring Staffing Anesthesiologist: Brooks Montejo MD Performed by: anesthesiologist Preparation Sterility Preparation: hand hygiene performed prior to procedure, sterile gloves, drapes, and procedure tray, surgical cap used, mask used, skin prep agent completely dried prior to procedure Site Prep: Chloraprep Procedure Details Patient Position: Trendelenburg Laterality: Right Site: Internal jugular Catheter Type: Standard CVL Catheter Size: 8.5 Fr Catheter Length (cm): 16 Insertion Depth: 15 cm Number of Lumens: Quad lumen Ultrasound Guided: Yes Image in Chart: No Sites: potential access sites evaluated, selected vessel patent, concurrent real time ultrasound visualization of vascular needle entry Vessel: target vessel identified and guidewire advanced into vessel Needle advanced into vein and blood aspirated: Yes Transduced prior to dilation: Yes Number of Attempts: 1 Number of Guidewires Used: 1 Number of Guidewires Removed Intact: 1 Post-procedure x-ray ordered: per surgery. Post Insertion Ports and Catheter: all ports aspirate easily, all ports flush easily and ports flushed with saline Catheter Secured: suture(s), central line dressing applied and antimicrobial dressing applied Events Events: patient tolerated procedure well with no complications SIGNATURE: Brooks Montejo MD PATIENT NAME: Elsa Palacio DATE: March 02, 2025 TIME: 8:25 AM CSN: [id number] [facility] 03-02-2025 Note HNO ID: [id number] Author: BROOKS MONTEJO MD Service: Anesthesiology Author Type: Physician Type: Anesthesia Procedure Notes Filed: 03/02/2025 08:24 Note Text: ANESTHESIOLOGY PROCEDURE NOTE A-Line General Information Procedure Start Time/Medication Administration: 03/02/2025 7:15 AM Procedure End Time: 03/02/2025 7:18 AM Patient location during procedure: OR Timeout Performed Pre-procedure: timeout performed Indications: continuous blood pressure monitoring and blood sampling needed Staffing Anesthesiologist: Brooks Montejo MD Performed by: anesthesiologist Preparation Sterility Preparation: hand hygiene performed prior to procedure, sterile gloves, drapes, and procedure tray, surgical cap used, mask used, skin prep agent completely dried prior to procedure Site Prep: Chloraprep Procedure Details Catheter Type: arterial line Catheter Size: 20 G Catheter Length: 1.88 in Micropuncture Kit Used: No Guidewire Used: No Laterality: left Site: radial artery Ultrasound Guided: Yes Image in Chart: No Sites: potential access sites evaluated, selected vessel patent, concurrent real time ultrasound visualization of vascular needle entry Vessel: target vessel identified Line Secured: tape, Tegaderm and occlusive biodressing Events Events: patient tolerated procedure well with no complications SIGNATURE: Brooks Montejo MD PATIENT NAME: Elsa Palacio DATE: March 02, 2025 TIME: 8:23 AM CSN: [id number] [facility] 03-01-2025 Note HNO ID: [id number] Author: OMARI HEATON MD Service: Hospital Medicine Author Type: Physician Type: Progress Notes Filed: 03/01/2025 14:33 Note Text: DEPARTMENT OF HOSPITAL MEDICINE PROGRESS NOTE SERVICE DATE: 03/01/2025 SERVICE TIME: 2:32 PM Hospital Medicine/Primary Attending: Omari Heaton MD NIGHT AND WEEKEND COVERAGE: [place] COVERAGE: After 7pm, please call cross cover pager #[phone] Subjective INTERVAL HPI: Episode of sharp L sided chest pain, self-resolved within minutes. EKG unchanged. Recurrent nausea. Current Facility-Administered Medications Medication Dose Route Frequency heparin iv infusion 25,000 units in NaCl 0.45% 250 mL LOW DOSE/ACS NOMOGRAM 0-3,000 Units/hr INTRAVENOUS CONTINUOUS And heparin RATE CHANGE bolus 1,000-4,000 Units for subtherapeutic PTTAC results 1,000-4,000 Units INTRAVENOUS PRN finasteride 5 mg tab(s) (PROSCAR) 5 mg ORAL DAILY levothyroxine 100 mcg tab(s) (SYNTHROID) 100 mcg ORAL DAILY tamsulosin 0.8 mg cap(s) (FLOMAX) 0.8 mg ORAL DAILY melatonin 6 mg tab(s) 6 mg ORAL AT BEDTIME NaCl 0.9% iv flush bag 20 mL INTRAVENOUS PRN ondansetron 4 mg tab(s) (ZOFRAN) 4 mg ORAL q 6 H PRN Or ondansetron (PF) 4 mg injection (ZOFRAN) 4 mg INTRAVENOUS q 6 H PRN acetaminophen 1,000 mg tab(s) (TYLENOL) 1,000 mg ORAL q 6 H PRN melatonin 1 mg tab(s) 1 mg ORAL DAILY PRN atorvastatin 40 mg tab(s) (LIPITOR) 40 mg ORAL AT BEDTIME therapeutic multivitamin-minerals tablet (THERA-M PLUS) 1 tablet ORAL DAILY sodium chloride 0.9 % (flush) 2-10 mL (BD POSIFLUSH) 2-10 mL INTRAVENOUS DIRECTED PRN And perflutren lipid microspheres 1.1 mg/mL 1.3 mL injection (DEFINITY) 1.3 mL INTRAVENOUS DIRECTED PRN mupirocin 2 % 0.5 g nasal ointment (BACTROBAN) 0.5 g NASAL BID metoprolol tartrate (short acting) 25 mg tab(s) (LOPRESSOR) 25 mg ORAL q 12 H Chlorhexidine Gluconate 0.12 % 15 mL (PERIDEX) 15 mL ORAL q 6 H [START ON 03/02/2025] acetaminophen 1,000 mg tab(s) (TYLENOL) 1,000 mg ORAL ONCE [START ON 03/02/2025] aspirin 81 mg chewable tab(s) 81 mg ORAL ONCE [START ON 03/02/2025] metoprolol tartrate (short acting) 12.5 mg tab(s) (LOPRESSOR) 12.5 mg ORAL ONCE [START ON 03/02/2025] heparin nomogram - NURSING INSTRUCTIONS OTHER ONCE polyethylene glycol 3350 17 g packet 17 g ORAL DAILY PRN nitroglycerin sublingual 0.4 mg tab(s) (NITROQUICK) 0.4 mg SUBLINGUAL PRN Objective PHYSICAL EXAM: BP 155/78 Pulse 55 Temp (Src) 97.2 (Axillary) Resp 18 Ht 5' 10 (1.78m) Wt 164 lb 14.5 oz (74.8kg) SpO2 94% BMI 23.66 kg/(m2). O2 Therapy: Room Air Physical Exam Performed GENERAL: Alert, no distress, cooperative LUNGS: Lungs clear to auscultation, Good diaphragmatic excursion CARDIAC: Normal S1 and S2; no rubs, murmurs, or gallops ABDOMEN: Abdomen soft, non-tender, BS normal, No masses or organomegaly EXTREMITIES: Extremities normal, no deformities, edema, clubbing or skin discoloration. Good capillary refill., No ulcers Lines, Drains, and Airways Line Duration Peripheral 02/25/25 0010 Left Antecubital 20 Gauge 4 days Peripheral 02/25/25 0600 Left Forearm 20 Gauge 4 days Patient does not currently have any lines, drains or airways. DATA: Diagnostic tests reviewed for today's visit: CBC, Coags, BMP, Mg, Phos Recent Labs 03/01/25 0607 02/28/25 0553 02/27/25 0601 WBC 7.95 8.49 -- HB 14.3 14.2 -- HCT 41.8 41.4 -- PLT 201 197 -- APTT 61.7* 63.2* 60.9* NA 134* 134* -- K 4.2 4.2 -- CHLOR 101 101 -- CO2 21* 22 -- BUN 17 21 -- CREAT 1.07 1.05 -- GLUC 99 110* -- CA 9.1 9.0 -- MG 1.8 1.8 -- HOSPITAL COURSE: 85M hx HTN, hypothyroidism, BPH p/w exertional chest pain, found to have NSTEMI. S/p LHC showing severe 3vCAD. Also p/w Afib w/ SVR, started on Lopressor for rate control but subsequently c/b episodes of sinus bradycardia and Mobitz I. Pending CABG. Assessment AND Plan NSTEMI (non-ST elevated myocardial infarction) (HCC) Present on Admission: Yes CAD, multiple vessel Present on Admission: Yes Acute severe chest pain, trop elevation, NSTEMI on EKG, LHC showing severe 3vCAD. Cardio and CTS consulted. Plan for CABG . Bradycardia Present on Admission: No Second degree atrioventricular block, Mobitz type I Present on Admission: No Initially p/w Afib w/ SVR though subsequently self-converted to sinus bradycardia. Lopressor dose decreased. Also w/ episodic Mobitz I. EP consulted, discontinued metoprolol. Medication and Non-Pharmacologic VTE Prophylaxis/Anticoagulants Anticoagulant AND Antiplatelet Medications (From admission, onward) Start Dose Route Frequency Last Action Ordered Stop 03/02/25 0530 aspirin 81 mg chewable tab(s) 81 mg PO ONCE Ordered 02/28/25 1540 03/02/25 1729 02/25/25 0030 heparin iv infusion 25,000 units in NaCl 0.45% 250 mL LOW DOSE/ACS NOMOGRAM (Heparin Infusion + Bolus for Subtherapeutic PTTAC) 0-30 mL/hr Placed in And Linked Group 0-3,000 Units/hr IV CONTINUOUS New Bag/Syringe/Bot (more content not included)... [facility] 03-01-2025 Note HNO ID: [id number] Author: AALIYAH LÓPEZ RN Service: Care Management Author Type: Registered Nurse Type: Care Mgt Progress Note Filed: 03/01/2025 14:14 Note Text: CARE MANAGEMENT PROGRESS NOTE SERVICE DATE: 03/01/2025 SERVICE TIME: 2:14 PM LOS: 4 days Pt going for CABG on 03/01, anticipate pt/ot eval post CABG, CM will continue to follow SIGNATURE: Aaliyah López RN PATIENT NAME: Elsa Palacio DATE: March 01, 2025 TIME: 2:14 PM [facility] 03-01-2025 Note HNO ID: [id number] Author: RITA HENLEY PA-C Service: Cardiovascular Surgery Author Type: Physician Energy Manager Type: Plan of Care Filed: 03/01/2025 13:54 Note Text: Cardiac Surgery 03/01/2025 Plan for CABG tomorrow 03/02/2025 at [address] Sagastume. Patient and family notified. Orders and checklist completed. Heparin gtt to be held at 0530 on 03/02. All pre-op meds to be given at 0530 also. Please ensure the following medications are held prior to cardiac surgery: ? Antiplatelets AND ADP inhibitors (Plavix/Brilinta/Effient/Ticlid) if ordered; please hold for 5 days of scheduled surgery ? CJ-i AND ARB's (Entresto/Lisinopril/Losartan/Va lsartan) if ordered; please hold within 24-48 hours of scheduled surgery ? GLP-1 AND GIP agents (Trulicity/Victoza/Semaglutide/T irzepatide) if ordered; please hold within 7-12 days of scheduled surgery ? SGLT2 agents (Jardiance / Farxiga) if ordered; please hold within 3-4 days of scheduled surgery Rita Henley PA-C Pager #[phone] [facility] 02-28-2025 Note HNO ID: [id number] Author: RITA HENLEY PA-C Service: Cardiovascular Surgery Author Type: Physician Energy Manager Type: Plan of Care Filed: 02/28/2025 17:49 Note Text: CTVS Surgery Pre-Op Open Heart Check List Patient Info: Elsa Palacio 1940 85 year old Awaiting confirmation from OR to formally schedule CABG with Dr. Sagastume on Saturday03/02/2025. Will confirm with OR scheduling when they return tomorrow AM. Pre-op orders and checklist placed in preparation. Please ensure the following medications are held prior to cardiac surgery: ? Antiplatelets AND ADP inhibitors (Plavix/Brilinta/Effient/Ticlid) if ordered; please hold for 5 days of scheduled surgery ? CJ-i AND ARB's (Entresto/Lisinopril/Losartan/Va lsartan) if ordered; please hold within 24-48 hours of scheduled surgery ? GLP-1 AND GIP agents (Trulicity/Victoza/Semaglutide/T irzepatide) if ordered; please hold within 7-12 days of scheduled surgery ? SGLT2 agents (Jardiance / Farxiga) if ordered; please hold within 3-4 days of scheduled surgery STS RISK SCORE: Isolated CABG, ~3% Pre-Op Testing: LABS: CHEMISTRY Sodium (mmol/L) Date Value 02/28/2025 134 02/26/2025 134 02/25/2025 135 02/27/2021 137 02/08/2020 138 12/17/2019 137 Chloride (mmol/L) Date Value 02/28/2025 101 02/26/2025 103 02/25/2025 103 02/27/2021 102 02/08/2020 100 12/17/2019 103 CO2 (mmol/L) Date Value 02/28/2025 22 02/26/2025 21 02/25/2025 22 02/27/2021 26 02/08/2020 27 12/17/2019 26 BUN (mg/dL) Date Value 02/28/2025 21 02/26/2025 19 02/25/2025 16 02/27/2021 18 02/08/2020 20 12/17/2019 17 Creatinine (mg/dL) Date Value 02/28/2025 1.05 02/26/2025 1.13 02/25/2025 0.96 02/27/2021 1.12 02/08/2020 1.19 12/17/2019 1.12 Glucose (mg/dL) Date Value 02/28/2025 110 02/26/2025 118 02/25/2025 124 02/27/2021 100 02/08/2020 91 12/17/2019 98 Magnesium (mg/dL) Date Value 02/28/2025 1.8 02/25/2025 2.1 Phosphorus (mg/dL) Date Value 12/17/2019 2.5 Protein, Total (g/dL) Date Value 02/25/2025 6.4 12/14/2024 6.2 01/20/2024 6.3 02/27/2021 6.7 02/08/2020 6.5 11/13/2019 6.0 Calcium (mg/dL) Date Value 02/27/2021 10.0 02/08/2020 9.3 12/17/2019 9.3 Calcium, Total (mg/dL) Date Value 02/28/2025 9.0 02/26/2025 8.9 02/25/2025 8.9 Bilirubin, Total (mg/dL) Date Value 02/25/2025 0.6 12/14/2024 0.2 01/20/2024 0.3 02/27/2021 0.3 02/08/2020 0.3 11/13/2019 0.4 Alkaline Phosphatase (U/L) Date Value 02/25/2025 90 12/14/2024 93 01/20/2024 86 02/27/2021 85 02/08/2020 63 11/13/2019 58 ALT (U/L) Date Value 02/25/2025 18 12/14/2024 15 01/20/2024 14 02/27/2021 17 02/08/2020 16 11/13/2019 15 AST (U/L) Date Value 02/25/2025 44 12/14/2024 15 01/20/2024 16 02/27/2021 20 02/08/2020 21 11/13/2019 17 Anion Gap (mmol/L) Date Value 02/28/2025 11 02/26/2025 10 02/25/2025 10 02/27/2021 9 02/08/2020 11 12/17/2019 8 { Lipid Panel Cholesterol, Total Date Value Ref Range Status 12/14/2024 186 <200 mg/dL Final Comment: <200 mg/dL, Desirable 200-239 mg/dL, Borderline high >239 mg/dL, High HDL Cholesterol Date Value Ref Range Status 12/14/2024 45 >39 mg/dL Final Comment: 40-59 mg/dL, Acceptable >59 mg/dL, High: Negative risk factor for coronary heart disease <40 mg/dL, Low: Positive risk factor for coronary heart disease LDL Cholesterol, Calculated Date Value Ref Range Status 12/14/2024 116 (H) <100 mg/dL Final Comment: <100 mg/dL, Optimal 100-129 mg/dL, Near optimal/above optimal 130-159 mg/dL, Borderline high 160-189 mg/dL, High >189 mg/dL, Very high Secondary prevention optimal LDL Cholesterol levels are recommended to be <70 mg/dL LDL cholesterol is calculated using the Rodriguez-NIH equation. Triglyceride Date Value Ref Range Status 12/14/2024 140 <150 mg/dL Final Comment: <150 mg/dL, Normal 150-199 mg/dL, Borderline high 200-499 mg/dL, High >499 mg/dL, Very high NT Pro BNP NT Pro BNP Date Value Ref Range Status 02/25/2025 2,640 (H) <450 pg/mL Final ENDOCRINE Hemoglobin A1C (%) Date Value 02/25/2025 5.9 01/13/2019 5.7 Lab Results Component Value Date TSH 1.880 02/25/2025 HEMATOLOGY RBC (m/uL) Date Value 02/28/2025 4.57 02/26/2025 4.36 02/25/2025 4.55 01/13/2019 4.80 04/18/2015 4.69 03/08/2014 4.56 Hemoglobin (g/dL) Date Value 02/28/2025 14.2 02/26/2025 13.3 02/25/2025 14.2 01/13/2019 15.2 04/18/2015 15.1 03/08/2014 14.4 Hematocrit (%) Date Value 02/28/2025 41.4 02/26/2025 39.7 02/25/2025 41.3 01/13/2019 45.5 04/18/2015 44.8 03/08/2014 45.1 WBC (k/uL) Date Value 02/28/2025 8.49 02/26/2025 8.96 02/25/2025 10.33 01/13/2019 8.76 04/18/2015 5.83 03/08/2014 6.13 Platelet Count (k/uL) Date Value 02/28/2025 197 02/26/2025 196 02/25/2025 222 01/13/2019 224 04/18/2015 175 03/08/2014 161 COAGULATION PT Sec Giuseppe (more content not included)... [facility] 02-28-2025 Note HNO ID: [id number] Author: OMARI HEATON MD Service: Hospital Medicine Author Type: Physician Type: Progress Notes Filed: 02/28/2025 14:07 Note Text: DEPARTMENT OF HOSPITAL MEDICINE PROGRESS NOTE SERVICE DATE: 02/28/2025 SERVICE TIME: 2:04 PM Hospital Medicine/Primary Attending: Omari Heaton MD NIGHT AND WEEKEND COVERAGE: IASALVATORE COVERAGE: After 7pm, please call cross cover pager [phone] Subjective INTERVAL HPI: Feeling well. Current Facility-Administered Medications Medication Dose Route Frequency heparin iv infusion 25,000 units in NaCl 0.45% 250 mL LOW DOSE/ACS NOMOGRAM 0-3,000 Units/hr INTRAVENOUS CONTINUOUS And heparin RATE CHANGE bolus 1,000-4,000 Units for subtherapeutic PTTAC results 1,000-4,000 Units INTRAVENOUS PRN finasteride 5 mg tab(s) (PROSCAR) 5 mg ORAL DAILY levothyroxine 100 mcg tab(s) (SYNTHROID) 100 mcg ORAL DAILY tamsulosin 0.8 mg cap(s) (FLOMAX) 0.8 mg ORAL DAILY melatonin 6 mg tab(s) 6 mg ORAL AT BEDTIME NaCl 0.9% iv flush bag 20 mL INTRAVENOUS PRN ondansetron 4 mg tab(s) (ZOFRAN) 4 mg ORAL q 6 H PRN Or ondansetron (PF) 4 mg injection (ZOFRAN) 4 mg INTRAVENOUS q 6 H PRN acetaminophen 1,000 mg tab(s) (TYLENOL) 1,000 mg ORAL q 6 H PRN melatonin 1 mg tab(s) 1 mg ORAL DAILY PRN atorvastatin 40 mg tab(s) (LIPITOR) 40 mg ORAL AT BEDTIME therapeutic multivitamin-minerals tablet (THERA-M PLUS) 1 tablet ORAL DAILY aspirin 81 mg chewable tab(s) 81 mg ORAL DAILY sodium chloride 0.9 % (flush) 2-10 mL (BD POSIFLUSH) 2-10 mL INTRAVENOUS DIRECTED PRN And perflutren lipid microspheres 1.1 mg/mL 1.3 mL injection (DEFINITY) 1.3 mL INTRAVENOUS DIRECTED PRN mupirocin 2 % 0.5 g nasal ointment (BACTROBAN) 0.5 g NASAL BID metoprolol tartrate (short acting) 25 mg tab(s) (LOPRESSOR) 25 mg ORAL q 12 H Chlorhexidine Gluconate 0.12 % 15 mL (PERIDEX) 15 mL ORAL q 6 H Objective PHYSICAL EXAM: BP 128/72 Pulse 73 Temp (Src) 97.7 (Oral) Resp 21 Ht 5' 10 (1.78m) Wt 167 lb 8.8 oz (76.0kg) SpO2 96% BMI 24.04 kg/(m2). O2 Therapy: Room Air Physical Exam Performed GENERAL: Alert, no distress, cooperative LUNGS: Lungs clear to auscultation, Good diaphragmatic excursion CARDIAC: Normal S1 and S2; no rubs, murmurs, or gallops ABDOMEN: Abdomen soft, non-tender, BS normal, No masses or organomegaly EXTREMITIES: Extremities normal, no deformities, edema, clubbing or skin discoloration. Good capillary refill., No ulcers Lines, Drains, and Airways Line Duration Peripheral 02/25/25 0010 Left Antecubital 20 Gauge 3 days Peripheral 02/25/25 0600 Left Forearm 20 Gauge 3 days Patient does not currently have any lines, drains or airways. DATA: Diagnostic tests reviewed for today's visit: CBC, Coags, BMP, Mg, Phos Recent Labs 02/28/25 0553 02/27/25 0601 02/26/25 0347 WBC 8.49 -- 8.96 HB 14.2 -- 13.3 HCT 41.4 -- 39.7 PLT 197 -- 196 APTT 63.2* 60.9* 61.6* NA 134* -- 134* K 4.2 -- 4.1 CHLOR 101 -- 103 CO2 22 -- 21* BUN 21 -- 19 CREAT 1.05 -- 1.13 GLUC 110* -- 118* CA 9.0 -- 8.9 MG 1.8 -- -- HOSPITAL COURSE: 85M hx HTN, hypothyroidism, BPH p/w exertional chest pain, found to have NSTEMI. S/p LHC showing severe 3vCAD. Also p/w Afib w/ SVR, started on Lopressor for rate control but subsequently c/b episodes of sinus bradycardia and Mobitz I. Pending CABG. Assessment AND Plan NSTEMI (non-ST elevated myocardial infarction) (HCC) Present on Admission: Yes CAD, multiple vessel Present on Admission: Yes Acute severe chest pain, trop elevation, NSTEMI on EKG, LHC showing severe 3vCAD. Cardio and CTS consulted. Plan for CABG Sat/. Bradycardia Present on Admission: No Second degree atrioventricular block, Mobitz type I Present on Admission: No Initially p/w Afib w/ SVR though subsequently self-converted to sinus bradycardia. Lopressor dose decreased. Also w/ episodic Mobitz I. EP consulted. Tele. Medication and Non-Pharmacologic VTE Prophylaxis/Anticoagulants Anticoagulant AND Antiplatelet Medications (From admission, onward) Start Dose Route Frequency Last Action Ordered Stop 02/25/25 0930 aspirin 81 mg chewable tab(s) 81 mg PO DAILY Given, 02/28 90602/25/25 0906 -- 02/25/25 0030 heparin iv infusion 25,000 units in NaCl 0.45% 250 mL LOW DOSE/ACS NOMOGRAM (Heparin Infusion + Bolus for Subtherapeutic PTTAC) 0-30 mL/hr Placed in And Linked Group 0-3,000 Units/hr IV CONTINUOUS Rate/Dose Calculated - Heparin, 02/29 65602/25/25 0026 -- 02/25/25 004 vte current anticoag therapy (ne,ri) 02/25/2544 pneumatic compression [place](s[place] 02/25/2544 activity - [place]ize [place] VTE Prophylaxis: VTE prophylaxis appropriate Disposition: Home Plan of care discussed with Provider, RN, Patient Plan communicated to: N/A SIGNATURE: Omari Heaton MD PATIENT NAME: Elsa Palacio DATE: February 28, 2025 TIME: 1:56 PM [facility] 02-27-2025 Note HNO ID: [id number] Author: OMARI HEATON MD Service: Hospital Medicine Author Type: Physician Type: Progress Notes Filed: 02/27/2025 14:33 Note Text: DEPARTMENT OF HOSPITAL MEDICINE PROGRESS NOTE SERVICE DATE: 02/27/2025 SERVICE TIME: 2:32 PM Hospital Medicine/Primary Attending: Omari Heaton MD NIGHT AND WEEKEND COVERAGE: IASALVATORE COVERAGE: After 7pm, please call cross cover pager #[phone] Subjective INTERVAL HPI: Mild fatigue and nausea. Current Facility-Administered Medications Medication Dose Route Frequency heparin iv infusion 25,000 units in NaCl 0.45% 250 mL LOW DOSE/ACS NOMOGRAM 0-3,000 Units/hr INTRAVENOUS CONTINUOUS And heparin RATE CHANGE bolus 1,000-4,000 Units for subtherapeutic PTTAC results 1,000-4,000 Units INTRAVENOUS PRN finasteride 5 mg tab(s) (PROSCAR) 5 mg ORAL DAILY levothyroxine 100 mcg tab(s) (SYNTHROID) 100 mcg ORAL DAILY tamsulosin 0.8 mg cap(s) (FLOMAX) 0.8 mg ORAL DAILY melatonin 6 mg tab(s) 6 mg ORAL AT BEDTIME NaCl 0.9% iv flush bag 20 mL INTRAVENOUS PRN ondansetron 4 mg tab(s) (ZOFRAN) 4 mg ORAL q 6 H PRN Or ondansetron (PF) 4 mg injection (ZOFRAN) 4 mg INTRAVENOUS q 6 H PRN acetaminophen 1,000 mg tab(s) (TYLENOL) 1,000 mg ORAL q 6 H PRN melatonin 1 mg tab(s) 1 mg ORAL DAILY PRN atorvastatin 40 mg tab(s) (LIPITOR) 40 mg ORAL AT BEDTIME therapeutic multivitamin-minerals tablet (THERA-M PLUS) 1 tablet ORAL DAILY aspirin 81 mg chewable tab(s) 81 mg ORAL DAILY sodium chloride 0.9 % (flush) 2-10 mL (BD POSIFLUSH) 2-10 mL INTRAVENOUS DIRECTED PRN And perflutren lipid microspheres 1.1 mg/mL 1.3 mL injection (DEFINITY) 1.3 mL INTRAVENOUS DIRECTED PRN mupirocin 2 % 0.5 g nasal ointment (BACTROBAN) 0.5 g NASAL BID metoprolol tartrate (short acting) 25 mg tab(s) (LOPRESSOR) 25 mg ORAL q 12 H [START ON 02/28/2025] Chlorhexidine Gluconate 0.12 % 15 mL (PERIDEX) 15 mL ORAL q 6 H Objective PHYSICAL EXAM: BP 135/74 Pulse 50 Temp (Src) 97.5 (Oral) Resp 18 Ht 5' 10 (1.78m) Wt 167 lb 8.8 oz (76.0kg) SpO2 97% BMI 24.04 kg/(m2). O2 Therapy: Room Air Physical Exam Performed GENERAL: Alert, no distress, cooperative LUNGS: Lungs clear to auscultation, Good diaphragmatic excursion CARDIAC: Normal S1 and S2; no rubs, murmurs, or gallops ABDOMEN: Abdomen soft, non-tender, BS normal, No masses or organomegaly EXTREMITIES: Extremities normal, no deformities, edema, clubbing or skin discoloration. Good capillary refill., No ulcers Lines, Drains, and Airways Line Duration Peripheral 02/25/25 0010 Left Antecubital 20 Gauge 2 days Peripheral 02/25/25 0600 Left Forearm 20 Gauge 2 days Patient does not currently have any lines, drains or airways. DATA: Diagnostic tests reviewed for today's visit: CBC, Coags, BMP, Mg, Phos Recent Labs 02/27/25 0601 02/26/25 0347 02/25/25 1453 02/25/25 0820 02/25/25 0106 WBC -- 8.96 -- -- 10.33 HB -- 13.3 -- -- 14.2 HCT -- 39.7 -- -- 41.3 PLT -- 196 -- -- 222 INR -- -- -- -- 1.0 APTT 60.9* 61.6* 64.3* < > 35.3* NA -- 134* -- -- 135* K -- 4.1 -- -- 4.0 CHLOR -- 103 -- -- 103 CO2 -- 21* -- -- 22 BUN -- 19 -- -- 16 CREAT -- 1.13 -- -- 0.96 GLUC -- 118* -- -- 124* CA -- 8.9 -- -- 8.9 MG -- -- -- -- 2.1 < > = values in this interval not displayed. HOSPITAL COURSE: 85M hx HTN, hypothyroidism, BPH p/w exertional chest pain, found to have NSTEMI. S/p LHC showing severe 3vCAD. Also found to have Afib w/ SVR. Pending CABG. Assessment AND Plan NSTEMI (non-ST elevated myocardial infarction) (HCC) Present on Admission: Yes CAD, multiple vessel Present on Admission: Status not on file Acute severe chest pain, trop elevation, NSTEMI on EKG, LHC showing severe 3vCAD. Cardio and CTS consulted. Hep gtt. Statin, Lopressor 50 bid, fluid/salt restriction. Plan for CABG Sat/. Atrial fibrillation with slow ventricular response (HCC) Present on Admission: Yes Noted on EKG. Switched verapamil to metop tart 50 bid. Persistent bradycardia to 40s, decreased metop to 25 bid. Medication and Non-Pharmacologic VTE Prophylaxis/Anticoagulants Anticoagulant AND Antiplatelet Medications (From admission, onward) Start Dose Route Frequency Last Action Ordered Stop 02/25/25 0930 aspirin 81 mg chewable tab(s) 81 mg PO DAILY Given, 02/27 1010 02/25/25 0906 -- 02/25/25 0030 heparin iv infusion 25,000 units in NaCl 0.45% 250 mL LOW DOSE/ACS NOMOGRAM (Heparin Infusion + Bolus for Subtherapeutic PTTAC) 0-30 mL/hr Placed in And Linked Group 0-3,000 Units/hr IV CONTINUOUS Rate Verify, 02/27 73102/25/25 0026 -- 02/25/2544 vte current anticoag therapy (ne,ri) 02/25/2544 pneumatic compression sleeve(s) [place] 02/25/2544 activity - [place] VTE Prophylaxis: VTE prophylaxis appropriate Disposition: Home Plan of care discussed with Provider, RN, Patient Plan communicated to: N/A SIGNATURE: Omari Heaton MD PATIENT NAME: Elsa Palacio DATE: February 27 (more content not included)... [facility] 02-27-2025 Note HNO ID: [id number] Author: DALILA HUDSON PA-C Service: Cardiovascular Surgery Author Type: Physician Energy Manager Type: Plan of Care Filed: 02/27/2025 13:24 Note Text: Cardiothoracic Surgery 02/27/25 10:00 AM Reviewed results shown below. Discussed with Dr. Sagastume. Tentative plan for surgery Friday 03/02 pending on OR availability. Discussed and answerred all questions patient and family had at bedside today. Patient denies chest pain or Shortness of Breath. Continue heparin drip. Results reviewed: CT Chest: Bilateral pulmonary nodules. The majority of pulmonary nodules measure less than 6 mm in size with 8 mm nodular density at the left lung base. Correlate with clinical concern for metastatic disease. Recommend follow-up CT chest at 3-6 months. 4.2 cm diameter mid ascending thoracic aorta tapering in diameter distally. 1 cm hepatic hypodensity. Hyperattenuating dependent gallbladder which may be on the basis of dense bile, vicarious excretion of contrast or possible gallbladder sludge/gallstones. Sequela of prior granulomatous infection above and below the diaphragm. Carotid US RIGHT SIDE Common carotid artery: Patent. Internal carotid artery: <50% stenosis consistent with mild carotid artery disease. External carotid artery: Patent. Vertebral artery: Patent and antegrade flow noted. Innominate artery: Patent. Subclavian artery: Patent. LEFT SIDE Common carotid artery: Plaque visualized without evidence of hemodynamically significant stenosis. Internal carotid artery: <50% stenosis consistent with mild carotid artery disease. External carotid artery: Patent. Vertebral artery: Patent and antegrade flow noted. Subclavian artery: Patent. Echo: The left ventricle is normal in size. There is no left ventricular hypertrophy. Left ventricular systolic function is normal. EF = 58 ? 5% (2D biplane) Indeterminate left ventricular diastolic function due to inconsistent or technically suboptimal data. - The right ventricle is normal in size. Right ventricular systolic function is normal. - The left atrial cavity is moderately dilated. - No significant valve disease. - The visualized aorta is borderline dilated with a maximal dimension of 3.8 cm. - Exam was compared with the prior [facility] echocardiographic exam performed on 03/14/2020. No significant change noted when compared to report of prior study. PFTS: FVC 76% FEV1 103% Updated STS: Procedure Type: Isolated CABG Perioperative Outcome Estimate % Operative Mortality 2.96% Morbidity AND Mortality 7.39% Stroke 1.12% Renal Failure 1.68% Reoperation 2.43% Prolonged Ventilation 3.69% Deep Sternal Wound Infection 0.153% Long Hospital Stay (>14 days) 6.12% Short Hospital Stay (<6 days)* 34.7% Clinical Summary Planned Surgery: Isolated CABG, Urgent, First cardiovascular surgery Demographics: 85 year old, male, 76kg, 177.8cm, BMI: 24 kg/m? Lab Values: Creatinine: 1.13 mg/dL, Hematocrit: 39.7%, WBC Count: 8.96 10?/?L, Platelet Count: 430163 cells/?L Substance Abuse: Former smoker Risk Factors / Comorbidities: Diabetes Mellitus , Hypertension, Family Hx of CAD Pulmonary RF: Mild CLD Cardiac Status: Chronic heart failure, NYHA Class I, Ejection Fraction = 58% Coronary Artery Disease: 3 vessels diseased, Proximal LAD Stenosis >= 70%, Non-ST Elevation MO, MO: 1 to 7 Days Valve Disease: Trivial/Trace AR, Mild MR, Trivial/Trace TR Discussed and answerred all questions patient and family had at bedside today. Patient denies chest pain or Shortness of Breath. Continue heparin drip. Dalila Hudson PA-C [facility] 02-26-2025 Note HNO ID: [id number] Author: OMARI HEATON MD Service: Hospital Medicine Author Type: Physician Type: Progress Notes Filed: 02/26/2025 13:57 Note Text: DEPARTMENT OF HOSPITAL MEDICINE PROGRESS NOTE SERVICE DATE: 02/26/2025 SERVICE TIME: 1:54 PM Hospital Medicine/Primary Attending: Omari Heaton MD NIGHT AND WEEKEND COVERAGE: STEVIE COVERAGE: After 7pm, please call cross cover pager #[phone] Subjective INTERVAL HPI: Denies chest pain or shortness of breath. Current Facility-Administered Medications Medication Dose Route Frequency heparin iv infusion 25,000 units in NaCl 0.45% 250 mL LOW DOSE/ACS NOMOGRAM 0-3,000 Units/hr INTRAVENOUS CONTINUOUS And heparin RATE CHANGE bolus 1,000-4,000 Units for subtherapeutic PTTAC results 1,000-4,000 Units INTRAVENOUS PRN finasteride 5 mg tab(s) (PROSCAR) 5 mg ORAL DAILY levothyroxine 100 mcg tab(s) (SYNTHROID) 100 mcg ORAL DAILY tamsulosin 0.8 mg cap(s) (FLOMAX) 0.8 mg ORAL DAILY melatonin 6 mg tab(s) 6 mg ORAL AT BEDTIME NaCl 0.9% iv flush bag 20 mL INTRAVENOUS PRN lactated ringers iv infusion 75 mL/hr INTRAVENOUS CONTINUOUS ondansetron 4 mg tab(s) (ZOFRAN) 4 mg ORAL q 6 H PRN Or ondansetron (PF) 4 mg injection (ZOFRAN) 4 mg INTRAVENOUS q 6 H PRN acetaminophen 1,000 mg tab(s) (TYLENOL) 1,000 mg ORAL q 6 H PRN melatonin 1 mg tab(s) 1 mg ORAL DAILY PRN atorvastatin 40 mg tab(s) (LIPITOR) 40 mg ORAL AT BEDTIME therapeutic multivitamin-minerals tablet (THERA-M PLUS) 1 tablet ORAL DAILY aspirin 81 mg chewable tab(s) 81 mg ORAL DAILY metoprolol tartrate (short acting) 50 mg tab(s) (LOPRESSOR) 50 mg ORAL q 12 H sodium chloride 0.9 % (flush) 2-10 mL (BD POSIFLUSH) 2-10 mL INTRAVENOUS DIRECTED PRN And perflutren lipid microspheres 1.1 mg/mL 1.3 mL injection (DEFINITY) 1.3 mL INTRAVENOUS DIRECTED PRN mupirocin 2 % 0.5 g nasal ointment (BACTROBAN) 0.5 g NASAL BID Objective PHYSICAL EXAM: BP 156/76 Pulse 62 Temp (Src) 98.3 (Oral) Resp 16 Ht 5' 10 (1.78m) Wt 169 lb 15.6 oz (77.1kg) SpO2 95% BMI 24.39 kg/(m2). O2 Therapy: Room Air Physical Exam Performed GENERAL: Alert, no distress, cooperative LUNGS: Lungs clear to auscultation, Good diaphragmatic excursion CARDIAC: Normal S1 and S2; no rubs, murmurs, or gallops ABDOMEN: Abdomen soft, non-tender, BS normal, No masses or organomegaly EXTREMITIES: Extremities normal, no deformities, edema, clubbing or skin discoloration. Good capillary refill., No ulcers Lines, Drains, and Airways Line Duration Peripheral 02/25/25 0010 Left Antecubital 20 Gauge 1 day Peripheral 02/25/25 0600 Left Forearm 20 Gauge 1 day Patient does not currently have any lines, drains or airways. DATA: Diagnostic tests reviewed for today's visit: CBC, Coags, BMP, Mg, Phos Recent Labs 02/26/25 0347 02/25/25 1453 02/25/25 0820 02/25/25 0106 WBC 8.96 -- -- 10.33 HB 13.3 -- -- 14.2 HCT 39.7 -- -- 41.3 PLT 196 -- -- 222 INR -- -- -- 1.0 APTT 61.6* 64.3* 63.5* 35.3* NA 134* -- -- 135* K 4.1 -- -- 4.0 CHLOR 103 -- -- 103 CO2 21* -- -- 22 BUN 19 -- -- 16 CREAT 1.13 -- -- 0.96 GLUC 118* -- -- 124* CA 8.9 -- -- 8.9 MG -- -- -- 2.1 HOSPITAL COURSE: 85M hx HTN, hypothyroidism, BPH p/w exertional chest pain, found to have NSTEMI. S/p LHC showing severe 3vCAD. Also found to have Afib w/ SVR. Pending further cardiac evaluation. Assessment AND Plan NSTEMI (non-ST elevated myocardial infarction) (HCC) Present on Admission: Yes CAD, multiple vessel Present on Admission: Status not on file Acute severe chest pain, trop elevation, NSTEMI on EKG, LHC showing severe 3vCAD. Cardio and CTS consulted. Hep gtt. Statin, Lopressor 50 bid, fluid/salt restriction. Atrial fibrillation with slow ventricular response (HCC) Present on Admission: Yes Noted on EKG. Switched verapamil to Lopressor 50 bid. Medication and Non-Pharmacologic VTE Prophylaxis/Anticoagulants Anticoagulant AND Antiplatelet Medications (From admission, onward) Start Dose Route Frequency Last Action Ordered Stop 02/25/25 0930 aspirin 81 mg chewable tab(s) 81 mg PO DAILY Given, 02/26 0803 02/25/25 0906 -- 02/25/25 0030 heparin iv infusion 25,000 units in NaCl 0.45% 250 mL LOW DOSE/ACS NOMOGRAM (Heparin Infusion + Bolus for Subtherapeutic PTTAC) 0-30 mL/hr Placed in And Linked Group 0-3,000 Units/hr IV CONTINUOUS Rate Verify, 02/26 0418 02/25/25 0026 -- 02/25/25 004 vte current anticoag therapy [place] 02/25/2544 pneumatic compression sleeve(s) [place]) 02/25/2544 activity - mobilize patient [place] VTE Prophylaxis: VTE prophylaxis appropriate Disposition: Home Plan of care discussed with Provider, RN, Patient Plan communicated to: N/A SIGNATURE: Omari Heaton MD PATIENT NAME: Elsa Palacio DATE: February 26, 2025 TIME: 1:56 PM [facility] 02-26-2025 Note HNO ID: [id number] Author: CANDIDA VALDIVIA RN Service: Care Management Author Type: Registered Nurse Type: Care Mgt Progress Note Filed: 02/26/2025 11:09 Note Text: CARE MANAGEMENT PROGRESS NOTE SERVICE DATE: 02/26/2025 SERVICE TIME: 11:08 AM LOS: 1 day Chart reviewed. Plan is pending clinical course. Cardio and CTS consulted. Await final recommendations. Plan is pending clinical course. CM to follow. SIGNATURE: Candida Valdivia RN PATIENT NAME: Elsa Palacio DATE: February 26, 2025 TIME: 11:08 AM [facility] 02-25-2025 Note HNO ID: [id number] Author: OMARI HEATON MD Service: Hospital Medicine Author Type: Physician Type: Progress Notes Filed: 02/25/2025 13:59 Note Text: DEPARTMENT OF HOSPITAL MEDICINE PROGRESS NOTE SERVICE DATE: 02/25/2025 SERVICE TIME: 1:56 PM Hospital Medicine/Primary Attending: Omari Heaton MD NIGHT AND WEEKEND COVERAGE: STEVIE COVERAGE: After 7pm, please call cross cover pager #[phone] Subjective INTERVAL HPI: Denies chest pain or shortness of breath. Current Facility-Administered Medications Medication Dose Route Frequency heparin iv infusion 25,000 units in NaCl 0.45% 250 mL LOW DOSE/ACS NOMOGRAM 0-3,000 Units/hr INTRAVENOUS CONTINUOUS And heparin RATE CHANGE bolus 1,000-4,000 Units for subtherapeutic PTTAC results 1,000-4,000 Units INTRAVENOUS PRN [START ON 02/26/2025] finasteride 5 mg tab(s) (PROSCAR) 5 mg ORAL DAILY [START ON 02/26/2025] levothyroxine 100 mcg tab(s) (SYNTHROID) 100 mcg ORAL DAILY [START ON 02/26/2025] tamsulosin 0.8 mg cap(s) (FLOMAX) 0.8 mg ORAL DAILY melatonin 6 mg tab(s) 6 mg ORAL AT BEDTIME NaCl 0.9% iv flush bag 20 mL INTRAVENOUS PRN lactated ringers iv infusion 75 mL/hr INTRAVENOUS CONTINUOUS ondansetron 4 mg tab(s) (ZOFRAN) 4 mg ORAL q 6 H PRN Or ondansetron (PF) 4 mg injection (ZOFRAN) 4 mg INTRAVENOUS q 6 H PRN acetaminophen 1,000 mg tab(s) (TYLENOL) 1,000 mg ORAL q 6 H PRN melatonin 1 mg tab(s) 1 mg ORAL DAILY PRN atorvastatin 40 mg tab(s) (LIPITOR) 40 mg ORAL AT BEDTIME therapeutic multivitamin-minerals tablet (THERA-M PLUS) 1 tablet ORAL DAILY aspirin 81 mg chewable tab(s) 81 mg ORAL DAILY metoprolol tartrate (short acting) 50 mg tab(s) (LOPRESSOR) 50 mg ORAL q 12 H sodium chloride 0.9 % (flush) 2-10 mL (BD POSIFLUSH) 2-10 mL INTRAVENOUS DIRECTED PRN And perflutren lipid microspheres 1.1 mg/mL 1.3 mL injection (DEFINITY) 1.3 mL INTRAVENOUS DIRECTED PRN mupirocin 2 % 0.5 g nasal ointment (BACTROBAN) 0.5 g NASAL BID Objective PHYSICAL EXAM: BP 150/81 Pulse 70 Temp (Src) 97.4 (Oral) Resp 16 Ht 5' 10 (1.78m) Wt 172 lb 6.4 oz (78.2kg) SpO2 97% BMI 24.74 kg/(m2). O2 Therapy: Room Air Physical Exam Performed GENERAL: Alert, no distress, cooperative LUNGS: Lungs clear to auscultation, Good diaphragmatic excursion CARDIAC: Normal S1 and S2; no rubs, murmurs, or gallops ABDOMEN: Abdomen soft, non-tender, BS normal, No masses or organomegaly EXTREMITIES: Extremities normal, no deformities, edema, clubbing or skin discoloration. Good capillary refill., No ulcers Lines, Drains, and Airways Line Duration Peripheral 02/25/25 0010 Left Antecubital 20 Gauge <1 day Peripheral 02/25/25 0600 Left Forearm 20 Gauge <1 day Patient does not currently have any lines, drains or airways. DATA: Diagnostic tests reviewed for today's visit: CBC, Coags, BMP, Mg, Phos Recent Labs 02/25/25 0820 02/25/25 0106 WBC -- 10.33 HB -- 14.2 HCT -- 41.3 PLT -- 222 INR -- 1.0 APTT 63.5* 35.3* NA -- 135* K -- 4.0 CHLOR -- 103 CO2 -- 22 BUN -- 16 CREAT -- 0.96 GLUC -- 124* CA -- 8.9 MG -- 2.1 HOSPITAL COURSE: 85M hx HTN, hypothyroidism, BPH p/w exertional chest pain, found to have NSTEMI. S/p LHC showing severe 3vCAD. Pending further cardiac evaluation. Assessment AND Plan NSTEMI (non-ST elevated myocardial infarction) (HCC) Present on Admission: Yes CAD, multiple vessel Present on Admission: Status not on file Acute severe chest pain, trop elevation, NSTEMI on EKG, LHC showing severe 3vCAD. Cardio and CTS consulted. Hep gtt. Statin, Lopressor 50 bid, fluid/salt restriction. Medication and Non-Pharmacologic VTE Prophylaxis/Anticoagulants Anticoagulant AND Antiplatelet Medications (From admission, onward) Start Dose Route Frequency Last Action Ordered Stop 02/25/25 0930 aspirin 81 mg chewable tab(s) 81 mg PO DAILY Given, 02/25 92202/25/25 0906 -- 02/25/25 0030 heparin iv infusion 25,000 units in NaCl 0.45% 250 mL LOW DOSE/ACS NOMOGRAM (Heparin Infusion + Bolus for Subtherapeutic PTTAC) 0-30 mL/hr Placed in And Linked Group 0-3,000 Units/hr IV CONTINUOUS Rate Verify, 02/25 90502/25/25 0026 -- 02/25/25 004 vte current anticoag therapy ([place], [place]) 02/25/2544 pneumatic compression sleeve(s) ([place]) 02/25/2544 activity - mobilize patient ([place]) VTE Prophylaxis: VTE prophylaxis appropriate Disposition: Home Plan of care discussed with Provider, RN, Patient Plan communicated to: N/A SIGNATURE: Omari Heaton MD PATIENT NAME: Elsa Palacio DATE: February 25, 2025 TIME: 1:56 PM [facility] 02-25-2025 Note HNO ID: [id number] Author: HERMINIA LEAL RN Service: ? Author Type: Registered Nurse Type: Progress Notes Filed: 02/25/2025 11:44 Note Text: Transitional Care Management (TCM) Inpatient Outreach N/A - No specialty updates needed Summary: Patient admitted to: [facility] Patient admitted on: 02/24/25 Admitted for: CABG (coronary artery bypass graft) planned Contact made with patient: Yes Scarlet, my name is Herminia Leal RN and I am calling from the [facility] on behalf of Soraya Briones MD. I understand that you are currently admitted at [facility] and I am calling to cover the follow up and support services that we provide when you are discharged home from the hospital. Spoke to: patient Patient identified by name and date of . What to Expect After Hospital Discharge Within 2 business days after you are discharged back to your home you will receive one of the following: A call from a registered nurse OR a text from the [facility] containing a secure link that will ask you questions about how you are doing since you are back at home. Please know that the telephone number on your caller ID may not identify as [facility]. During our outreach with you, we will ask you about any new or worsening symptoms and ensure you have a follow up appointment with your provider. Best Contact after Hospital Discharge I would like to confirm your contact information. Do you have a mobile phone, landline, or both? Mobile only: [phone] Is this the best number to reach you? Yes Do you give us permission to speak with anyone else if you are unavailable to speak with us? Yes. Name Christine relationship spouse, and contact number [phone]. Primary Care Provider (PCP) Hospital Discharge Appointment Does patient already have a PCP follow up appointment within 7-14 days after hospital discharge? No MyChart Patient MyChart status is: Active Thank you for taking the time to speak with me today. I look forward to working with you once you are discharged home from the hospital. Herminia Leal RN February 25, 2025 11:44 AM [facility] 02-25-2025 Note HNO ID: [id number] Author: CANDIDA VALDIVIA RN Service: Care Management Author Type: Registered Nurse Type: Care Mgt Initial Assessment Filed: 02/25/2025 12:16 Note Text: CARE MANAGEMENT: ASSESSMENT AND DISCHARGE PLAN SERVICE DATE: February 25, 2025 SERVICE TIME: 11:20 AM PCP: Soraya Briones MD Primary Contact: Extended Emergency Contact Information Primary Emergency Contact: Barbara Palacion Address: [address] [place] [address] Mobile Relation: Spouse Admission Status: Inpatient Insurance Provider: [employer] PPO Discharge Planning requested by: Per Department Practice Potential Transition Plans Home Advance Directives Current Living Arrangements and Support Lives with: Spouse/significant other, Family members Type of Residence: Private Residence (House) Support: Family members How do you manage to accomplish the following: Independent: Ambulation, Bathe/Shower, Dress, Meals/Meal Prep, Going to the bathroom, Medication Management, Transportation to appointments/community Current Services/Equipment Current Post-Acute Service(s): None Discharge Planning Patient Goal(s): Be able to go home, General wellness [place] Explained: [place] Given: No Reason Not Given: No placements necessary Are you interested in bedside delivery of your medications? No Patient would like to keep [facility] in [place]. Discharge Planning Participant(s): Patient, Family Patient/Family Comments: Son and spouse at bedside Caregiver Assessment: Caregiver is ready, willing and able to meet the patient's needs as recommended by the inter-professional team: No Caregiver needed Transport at Discharge: Transportation Arrangements: Car Needs Prior to Discharge: Needs Prior to Discharge: To Be Determined Post-Acute Discharge Plan: Spoke to patient and family at bedside. Patient from home, independent with ADLs at baseline. Denies use of DME. Patient is retired, no financial concerns at this time. Active with his PCP (Soraya Briones MD with [facility]). Patient drives, and family is able to assist as needed. Plan is home with self care when medically ready for discharge. CM to follow. SIGNATURE: Candida Valdivia RN PATIENT NAME: Elsa Palacio DATE: February 25, 2025 TIME: 12:12 PM [facility] 02-25-2025 Note Patient Outreach ([facility]) GÓMEZPARMINDERELSA Brennan ([id number]) 1940 M Date Time Provider Department 02/25/25 HERMINIA LEAL During your visit today, we recorded the following information about you: Herminia Leal RN 02/25/2025 11:44 AM Signed Transitional Care Management (TCM) Inpatient Outreach N/A - No specialty updates needed Summary: Patient admitted to: [facility] Patient admitted on: 02/24/25 Admitted for: CABG (coronary artery bypass graft) planned Contact made with patient: Yes Jonathanfay, my name is Herminia Leal RN and I am calling from the [facility] on behalf of Soraya Briones MD. I understand that you are currently admitted at [facility] and I am calling to cover the follow up and support services that we provide when you are discharged home from the hospital. Spoke to: patient Patient identified by name and date of . What to Expect After Hospital Discharge Within 2 business days after you are discharged back to your home you will receive one of the following: A call from a registered nurse OR a text from the [facility] containing a secure link that will ask you questions about how you are doing since you are back at home. Please know that the telephone number on your caller ID may not identify as [facility]. During our outreach with you, we will ask you about any new or worsening symptoms and ensure you have a follow up appointment with your provider. Best Contact after Hospital Discharge I would like to confirm your contact information. Do you have a mobile phone, landline, or both? Mobile only: [phone] Is this the best number to reach you? Yes Do you give us permission to speak with anyone else if you are unavailable to speak with us? Yes. Name Christine, relationship spouse, and contact number [phone]. Primary Care Provider (PCP) Hospital Discharge Appointment Does patient already have a PCP follow up appointment within 7-14 days after hospital discharge? No MyChart Patient MyChart status is: Active Thank you for taking the time to speak with me today. I look forward to working with you once you are discharged home from the hospital. Herminia Leal RN February 25, 2025 11:44 AM Allergies As of Date: 02/25/2025 Noted Allergy Reaction CHEESE (SEE VEGETABLE GUM) 01/29/2005 Comments: cluster headaches MILK CONTAINING PRODUCTS (DAIRY) 12/31/2023 5 - Intolerance MOLD 01/29/2005 Comments: cluster headaches PENICILLIN G 01/29/2005 Comments: cluster h/a POLLEN 01/29/2005 Comments: cluster headaches VINEGAR 01/29/2005 Comments: cluster headaches Date Reviewed: 02/25/2025 Reviewed by: Taurus Valdivia RN - Fully Assessed Reason for Visit: Transition Of Care [5660] Cmt: Reach In Prescriptions as of 02/25/2025 - verapamil SR (CALAN SR) 120 mg CR tablet Take 1 tablet by mouth once daily. - levothyroxine (SYNTHROID) 100 mcg tablet Take 1 tablet by mouth once daily. - tamsulosin (FLOMAX) 0.4 mg Take 2 capsules by mouth once daily. - finasteride (PROSCAR) 5 mg tablet Take 1 tablet by mouth once daily. - losartan (COZAAR) 100 mg tablet Take 1 tablet by mouth once daily. - therapeutic multivitamin ORAL tablet Take by mouth once daily. - MELATONIN 3 MG TAB Take 6 mg by mouth daily at bedtime. - docusate sodium(LOPEZ LIQUI-GELS 100 MG CAP) Take by mouth once daily. Facility-Administered Medications as of 02/25/2025 - heparin iv infusion 25,000 units in NaCl 0.45% 250 mL LOW DOSE/ACS NOMOGRAM - heparin RATE CHANGE bolus 1,000-4,000 Units for subtherapeutic PTTAC results - finasteride 5 mg tab(s) (PROSCAR) - levothyroxine 100 mcg tab(s) (SYNTHROID) - tamsulosin 0.8 mg cap(s) (FLOMAX) - melatonin 6 mg tab(s) - NaCl 0.9% iv flush bag - lactated ringers iv infusion - ondansetron 4 mg tab(s) (ZOFRAN) - ondansetron (PF) 4 mg injection (ZOFRAN) - acetaminophen 1,000 mg tab(s) (TYLENOL) - melatonin 1 mg tab(s) - atorvastatin 40 mg tab(s) (LIPITOR) - therapeutic multivitamin-minerals tablet (THERA-M PLUS) - aspirin 81 mg chewable tab(s) - metoprolol tartrate (short acting) 50 mg tab(s) (LOPRESSOR) Problem List As Of Date 02/25/2025 Noted Resolved 3.1.1 PERIOD UNDETERM W/O INTRACT [346.20] [G43*02/23/2004 03/11/2009 Vrnt mgrn w ntrc mgr NEC [G43.119] 08/21/2004 Hypothyroidism [E03.9] 08/22/2004 History of colon polyps [Z86.0100] 05/10/2005 Diverticulosis of colon (without mention of hem*05/10/2005 02/01/2017 Family history of malignant neoplasm of gastroi*05/10/2005 BPH (benign prostatic hyperplasia) [N40.0] 10/28/2006 Bladder neck obstruction [N32.0] 10/28/2006 Cluster headache [G44.009] 03/11/2009 Trigger finger [M65.30] 03/11/2009 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 [facility] 02-24-2025 Note [facility] Medical Records Department [address] [place] [address] Discharge Summary 02/24/25 1326 MR#: [id number] Acct: [id number] Name: ELSA PALACIO Rep #: [id number] : 1940 85 From: Anibal Shore MD PCP: Dr. Jeremias Damico MD Status:DIS IN Location: [facility] [id number] Providers Date of Admission: 02/24/25 Date of Discharge: 02/24/25 Primary Care Physician: Dr. Jeremias Damico MD Consultations 02/24/25 12:06 Consult: Cardiology Routine Consulting Provider: Shawn Chau Reason for Consult: Chest Pain EMERGENT Consult: No MD Notified: Yes Date Notified: 02/24/25 Time Notified: 09:53 Method of Notification: ED Physician Initiated Reason For Visit: NSTEMI Diagnosis Discharge Diagnosis (1) ACS (acute coronary syndrome): Status: Acute Code(s): I24.9 - Acute ischemic heart disease, unspecified Plan Patient is an 85-year-old gentleman presenting with exertional chest pain with elevated troponin 1. Acute non-STEMI type I ??? Patient admitted to monitored bed treatment initiated per protocol with antiplatelet therapy heparin beta-vance statin therapy. As part of patient's management cardiology was consulted and ordered 2D echo. Patient was kept n.p.o. for possible left heart cath with intervention if warranted ??? Patient underwent emergency left heart catheterization findings included Severe multivessel coronary artery disease. No aortic stenosis. CORONARY ANGIOGRAPHY DOMINANCE: Right Dominant LEFT MAIN: Mild luminal irregularities LEFT ANTERIOR DESCENDING ARTERY: Moderate to severely diseased in the proximal portion and in the midportion immediately after the origin of a large septal branch. There is a 90% stenosis in the mid to distal portion. DIAGONAL 1: Proximal - Severe diffuse disease DIAGONAL 2: Proximal - Severe diffuse disease CIRCUMFLEX ARTERY: PROX CIRC: 95% stenosis DISTAL CIRC: There is severe diffuse disease in the mid to distal circumflex. OM 2: Proximal - 85 % Stenosis (OM1 is a small vessel) RIGHT CORONARY ARTERY: Severe diffuse disease in the mid RCA. 80% stenosis in the distal RCA RECOMMENDATIONS Surgery consult for coronary revascularization arrangement was subsequently made by Dr. Chau for patient to be transferred to [facility] for bypass 2. Hypertension ??? Recently diagnosed patient is on verapamil which she was apparently using for cluster headaches 3. Cluster headaches ??? Patient is on verapamil 4. BPH with lower urinary obstructive symptoms - Patient treated with tamsulosin 5. Hypothyroidism ??? Patient is on levothyroxine home dose continued 6. DVT prophylaxis ??? On heparin drip Time spent in the patient's overall evaluation,decision-making process, review of diagnostic data, adjustment of management, discussion with other providers, nursing nursing and ancillary staff involved in patient's care documentation, 85 minutes Medications at Discharge Home Medications tamsulosin 0.4 mg capsule 0.8 mg PO QHS prostate 11/04/19 aspirin 81 mg tablet,delayed release 81 mg PO BREAKFAST #0 tabs 02/24/25 atorvastatin 40 mg tablet 40 mg PO QHS #0 tabs 02/24/25 finasteride 5 mg tablet 5 mg PO QHS prostate 02/24/25 levothyroxine 100 mcg tablet (Synthroid) 100 mcg PO DAILY thyroid 02/24/25 losartan 100 mg tablet 100 mg PO QHS BP 02/24/25 melatonin 3 mg capsule 9 mg PO QHS sleep 02/24/25 metoprolol tartrate 25 mg tablet 25 mg PO BID #0 tabs 02/24/25 multivit,Ca,min-iron 8 mg-folic acid 200 mcg-lycopene 600 mcg tablet (Men's Daily Multivitamin) 1 tab PO DAILY supplement 02/24/25 verapamil 120 mg tablet,extended release 120 mg PO QHS bp 02/24/25 Physical Exam Narrative GENERAL: cooperative HEENT: Atraumatic; normocephalic EYES; Anicteric, Normal Conjunctiva NECK; supple, normal thyroid, RESPIRATORY: Diminished to auscultation CARDIOVASCULAR: Regular S1 S2, GI: soft, normoactive bowel sounds, : No Renal angle tenderness; EXTREMITIES: No edema, no clubbing, MUSCULOSKELETAL: no muscle wasting NEURO: Awake; no lateralizing signs. SKIN: No Rash PSYCH; Flat affect Weight / BMI Weight Weight: 77.791 kg Body Mass Index (BMI) 24.6 ABG / Lab / Microbiology Data 02/24/25 08:30 02/24/25 08:30 Laboratory: Laboratory Results - last 24 hr 02/24/25 08:30: WBC 9.3, RBC 4.65, Hgb 14.4, Hct 43.4, MCV 93.3, MCH 31.0, MCHC 33.2, RDW Std Deviation 42.0, RDW Coeff of Charles 12.2, Plt Count 225, MPV 9.8, Immature Gran % (Auto) 0.300, Neut % (Auto) 73.8 H, Lymph % (Auto) 17.2 L, Coal % (Auto) 6.5, Eos % (Auto) 1.7, Baso % (Auto) 0.5, Absolute Neuts (auto) 6.8, Absolute Lymphs (auto) 1.59, Nucleated RBC % 0, PT 13.4, INR 1.0, APTT 27.5, Sodium 135, Potassium 4.1, Chloride 100, Carbon Dioxide 24.9, Anion Gap 9, BUN 19, Creatinine 1.11, Estim Cr (more content not included)... [facility] 02-16-2025 Note HNO ID: [id number] Author: JEREMIAS DAMICO MD Service: ? Author Type: Physician Type: Progress Notes Filed: 02/16/2025 11:22 Note Text: Chief Complaint Patient presents with: Follow Up: 2 month follow up HPI Elsa Palacio is a 84 year old male who presents here today for 2 month follow up BP. No bowel, Gi, or urinary concerns. Follows with Urologist. Taking Flomax 0.4 mg 2 pills daily and Proscar 5 mg daily. Headaches: Stable. No longer needs to see his neurologist. HTN: No chest pains, dizziness, or Shortness of Breath. Checking BP at home and keeping log. Readings running around 127/98 to 152/95. Is taking Losartan 100 mg daily and restarted Verapamil 80 mg daily at last visit. Past medical history, appointments, medications, allergies reviewed. 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 Dr Jameson Diverticulosis of colon (without mention of hemorrhage) Dupuytren's contracture of both hands ED (erectile dysfunction) Hypothyroidism Migraine with aura, without mention of intractable migraine without mention of status migrainosus [facility], Dr Pierce Primary hypertension 10/13/2024 Previous Surgical History PAST SURGICAL HISTORY Procedure Laterality Date ARTHROSCOPY KNEE DIAGNOSTIC W/WO SYNOVIAL BX SPX ~1979 Arthroscopy, left knee COLONOSCOPY AND POLYPECTOMY 06/18/2001,04/10/00 Colonoscopy COLONOSCOPY FLX DX W/COLLJ SPEC WHEN PFRMD 07/09/07 repeat due 2012 COLONOSCOPY FLX DX W/COLLJ SPEC WHEN PFRMD 05/27/2012 no polyps, repeat due 2017 COLONOSCOPY FLX DX W/COLLJ SPEC WHEN PFRMD 01/20/2018 Colonoscopy COLONOSCOPY W/BIOPSY SINGLE/MULTIPLE 05/10/05 RAD RESECT TUMOR SOFT TISS NECK/ANT THORAX <5CM ~1969 BREAST TUMOR, left RELEASE PALM CONTRACTURE 01/15/2012 Right hand needle aponeurotomy Family History FAMILY HISTORY Problem Relation Age of Onset other (CHF) Mother OLD AGE Colon Cancer Father age 76 +/- Patient Allergies ALLERGIES Allergen Reactions Cheese (See Vegetab* cluster headaches Milk Containing Pro* Intolerance Mold cluster headaches Penicillin G cluster h/a Pollen cluster headaches Vinegar cluster headaches Current Medications Current Outpatient Medications on File Prior to Visit Medication Sig levothyroxine (SYNTHROID) 100 mcg tablet Take 1 tablet by mouth once daily. tamsulosin (FLOMAX) 0.4 mg Take 2 capsules by mouth once daily. finasteride (PROSCAR) 5 mg tablet Take 1 tablet by mouth once daily. verapamil 80 mg tablet Take 1 po at night losartan (COZAAR) 100 mg tablet Take 1 tablet by mouth once daily. therapeutic multivitamin ORAL tablet Take by mouth once daily. MELATONIN 3 MG TAB Take 6 mg by mouth daily at bedtime. docusate sodium([email or web address] LIQUI-GELS 100 MG CAP) Take by mouth once daily. No current facility-administered medications on file prior to visit. Social History SOCIAL HISTORY[1] EXAM: BP 142/86 Pulse 64 Resp 16 Wt 79.9 kg (176 lb 2.4 oz) BMI 24.94 kg/m? General Appearance: Well appearing, alert, in no acute distress, well-hydrated, well nourished.. Lungs: Lungs clear to auscultation. No wheezing, rhonchi, rales.. Heart: RRR without murmur, gallop, or rubs. No ectopy. Health Maintenance List Advance Directive Discussion due on 04/22/2024 Influenza Vaccine(1) due on 12/21/2024 Covid-19 Vaccine( season) due on 12/21/2024 Depression Screening due on 01/23/2025 Anxiety Screening due on 01/23/2025 DTaP,Tdap,Td Vaccine(3 - Td or Tdap) due on 07/31/2027 Diabetes Screening due on 12/15/2027 RSV Vaccine Completed Medicare Advantage Annual Wellness Visit Completed Shingrix Vaccine Completed Pneumococcal Vaccine: 50+ Completed Colonoscopy Discontinued Data reviewed Home BP readings - range from 102-160/70s-90s ASSESSMENT/PLAN: 1. Primary hypertension - ICD9: 401.9, ICD10: I10 (primary diagnosis) - Improving control - Increase verapamil to 120 mg SR daily - Recommend home blood pressure monitoring, to bring results to next visit - Encouraged sodium restriction, DASH or Mediterranean diet - Recommend regular aerobic exercise 2. Need for influenza vaccination - ICD9: V04.81, ICD10: Z23 - INFLUENZA VACCINE, PRSV FREE, AGE 65+ YR, HIGH DOSE, TRIVALENT (FLUZONE HIGH-DOSE) 3. Need for vaccination - ICD9: V05.9, ICD10: Z23 - PFIZER-BIONTECH COVID-19 VACCINE AGE 12+ YR (COMIRNATY) Follow up in 3 months to check BP I agree with the Chief Complaint, ROS, and Past Histories independently gathered by the clinical direct support professional and the remaining scribed note accurately describes my personal service to the patient. Medical Decision Making: Problems: Low: Stable chronic illness Risk: Moderate: Drug management Medical Decision Making Level: 3 - Low Jeremias Damico MD The documentation for this note was completed by Jessica Bates, (more content not included)... [facility] 12-22-2024 Note HNO ID: [id number] Author: SHAQ BISHOP PA-C Service: ? Author Type: Physician Energy Manager Type: Progress Notes Filed: 12/22/2024 16:42 Note Text: [facility] EST PATIENT CLINIC NOTE (M) Some elements copied from his previous note, which have been updated where appropriate, and all reflect current medical decision making from date of this visit. Note was generated by [employer] and edited as appropriate SERVICE DATE: December 22, 2024 NAME: Elsa Palacio GENDER: male CHIEF COMPLAINT: The patient is an 84-year-old male with benign prostatic hyperplasia, presenting for annual follow-up and medication refill for urinary symptoms. HISTORY OF PRESENT ILLNESS: The patient is an 84-year-old male with benign prostatic hyperplasia, presenting for annual follow-up and medication refill for urinary symptoms. BPH: - Last seen by urologist on 12/17. - Taking Proscar and Flomax; both refilled on 12/17. - Reports complete bladder emptying. - Denies any new urinary issues. > We discussed the common causes of urinary frequency and urgency, and restricting water intake In hopes to mitigate the need to urinate, we discussed how this behavior more often worsen the problem not improving it, > We discussed increasing daily water intake to 64-84 oz 7a -7p and try to reduce bladder irritants, caffeine, alcohol and acid foods and drink. > Bladder irritants handout available to patient. LABS: PSA (ng/mL) Date Value 12/29/2014 0.70 12/29/2013 0.78 Creatinine Date Value Ref Range Status 12/14/2024 1.13 0.73 - 1.22 mg/dL Final 01/20/2024 1.15 0.73 - 1.22 mg/dL Final 01/15/2023 1.17 0.73 - 1.22 mg/dL Final Testosterone (ng/dL) Date Value 06/28/2004 328 Hematocrit (%) Date Value 12/14/2024 44.3 01/20/2024 41.8 01/15/2023 43.4 01/13/2019 45.5 04/18/2015 44.8 03/08/2014 45.1 PSA (ng/mL) Date Value 12/29/2014 0.70 12/29/2013 0.78 MEDICATIONS: levothyroxine (SYNTHROID) 100 mcg tablet Take 1 tablet by mouth once daily. tamsulosin (FLOMAX) 0.4 mg Take 2 capsules by mouth once daily. finasteride (PROSCAR) 5 mg tablet Take 1 tablet by mouth once daily. verapamil 80 mg tablet Take 1 po at night losartan (COZAAR) 100 mg tablet Take 1 tablet by mouth once daily. therapeutic multivitamin ORAL tablet Take by mouth once daily. MELATONIN 3 MG TAB Take 6 mg by mouth daily at bedtime. docusate sodium([email or web address] LIQUI-GELS 100 MG CAP) Take by mouth once daily. 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 Dr Jameson Diverticulosis of colon (without mention of hemorrhage) Dupuytren's contracture of both hands ED (erectile dysfunction) Hypothyroidism Migraine with aura, without mention of intractable migraine without mention of status migrainosus [facility], Dr Pierce Primary hypertension 10/13/2024 REVIEW OF SYSTEMS: Genitourinary: (-) urinary symptoms PHYSICAL EXAMINATION: General: Alert AND oriented, no acute distress Skin: Normal HEENT: Pupils equal, round. Oral cavity, oropharynx clear Neck: Supple, no mass Breast: Deferred Respiratory: Clear to auscultation, bilaterally Cardiovascular: Regular rate and rhythm, no murmurs, rubs, or gallops Abdomen: Soft, non-tender, non-distended, no masses palpable, no hepatosplenomegaly, normal bowel sounds Genitourinary: Deferred MSK: Back is non-tender Extremities: No clubbing, cyanosis, or edema PROBLEM LIST REVIEW: Yes LABS: Results for orders placed or performed in visit on 12/22/24 UA DIP, URINE (POC) Result Value Ref Range GLUCOSE UA (POCT) Negative Negative mg/dL BILIRUBIN UA (POCT) Negative Negative KETONE UA (POCT) Negative Negative mg/dL SPECIFIC GRAVITY UA (POCT) 1.015 1.005 - 1.030 HEMOGLOBIN/BLOOD UA (POCT) Trace-intact (A) Negative PH UA (POCT) 6.0 4.5 - 8.0 PROTEIN UA (POCT) Negative Negative mg/dL UROBILINOGEN UA (POCT) 0.2 Normal E.U./dL NITRITE UA (POCT) Negative Negative LEUKOCYTES UA (POCT) Negative Negative COLOR UA (POCT) Dark yellow CLARITY UA (POCT) Clear PROCEDURES: PVR - 0 ml ASSESSMENT/PLAN: 1. BPH without obstruction/lower urinary tract symptoms (N40.0) - Clinically stable on Proscar and Flomax, last refilled on December 17. No new urinary symptoms reported. Urinalysis shows trace hematuria, likely secondary to prostatic enlargement; no immediate concerns. Continue current medication regimen. Follow-up in one year. 2. Screening for genitourinary condition (Z13.89) - Urinalysis performed today. Chronic stable, well controlled > 1 year Appt w/ Agapito. Atilio, MARTHA, JUDY, PARaheelC for annual follow-up and refills. Patient Instructions (AVS) - printed for patient - Refills for Proscar and Flomax were provided on December 17; continue taking both as prescribed. - Urinalysis (more content not included)... [facility] 12-22-2024 History of Presen t illness Narrative Images from the original note were not included. [facility] PATIENT CLINIC NOTE (M) Some elements copied from his previous note, which have been updated where appropriate, and all reflect current medical decision making from date of this visit. Note was generated by [employer] and edited as appropriate SERVICE DATE: December 22, 2024 NAME: Elsa Palacio GENDER: male CHIEF COMPLAINT: The patient is an 84-year-old male with benign prostatic hyperplasia, presenting for annual follow-up and medication refill for urinary symptoms. HISTORY OF PRESENT ILLNESS: The patient is an 84-year-old male with benign prostatic hyperplasia, presenting for annual follow-up and medication refill for urinary symptoms. BPH: - Last seen by urologist on 12/17. - Taking Proscar and Flomax; both refilled on 12/17. - Reports complete bladder emptying. - Denies any new urinary issues. > We discussed the common causes of urinary frequency and urgency, and restricting water intake In hopes to mitigate the need to urinate, we discussed how this behavior more often worsen the problem not improving it, > We discussed increasing daily water intake to 64-84 oz 7a -7p and try to reduce bladder irritants, caffeine, alcohol and acid foods and drink. > Bladder irritants handout available to patient. LABS: PSA (ng/mL) Date Value 12/29/2014 0.70 12/29/2013 0.78 Creatinine Date Value Ref Range Status 12/14/2024 1.13 0.73 - 1.22 mg/dL Final 01/20/2024 1.15 0.73 - 1.22 mg/dL Final 01/15/2023 1.17 0.73 - 1.22 mg/dL Final Testosterone (ng/dL) Date Value 06/28/2004 328 Hematocrit (%) Date Value 12/14/2024 44.3 01/20/2024 41.8 01/15/2023 43.4 01/13/2019 45.5 04/18/2015 44.8 03/08/2014 45.1 PSA (ng/mL) Date Value 12/29/2014 0.70 12/29/2013 0.78 MEDICATIONS: levothyroxine (SYNTHROID) 100 mcg tablet Take 1 tablet by mouth once daily. tamsulosin (FLOMAX) 0.4 mg Take 2 capsules by mouth once daily. finasteride (PROSCAR) 5 mg tablet Take 1 tablet by mouth once daily. verapamil 80 mg tablet Take 1 po at night losartan (COZAAR) 100 mg tablet Take 1 tablet by mouth once daily. therapeutic multivitamin ORAL tablet Take by mouth once daily. MELATONIN 3 MG TAB Take 6 mg by mouth daily at bedtime. docusate sodium(LOPEZ LIQUI-GELS 100 MG CAP) Take by mouth once daily. 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 Oral cavity, oropharynx clear Neck: Supple, no mass Breast: Deferred Respiratory: Clear to auscultation, bilaterally Cardiovascular: Regular rate and rhythm, no murmurs, rubs, or gallops Abdomen: Soft, non-tender, non-distended, no masses palpable, no hepatosplenomegaly, normal bowel sounds Genitourinary: Deferred MSK: Back is non-tender Extremities: No clubbing, cyanosis, or edema PROBLEM LIST REVIEW: Yes LABS: Results for orders placed or performed in visit on 12/22/24 UA DIP, URINE (POC) Result Value Ref Range GLUCOSE UA (POCT) Negative Negative mg/dL BILIRUBIN UA (POCT) Negative Negative KETONE UA (POCT) Negative Negative mg/dL SPECIFIC GRAVITY UA (POCT) 1.015 1.005 - 1.030 HEMOGLOBIN/BLOOD UA (POCT) Trace-intact (A) Negative PH UA (POCT) 6.0 4.5 - 8.0 PROTEIN UA (POCT) Negative Negative mg/dL UROBILINOGEN UA (POCT) 0.2 Normal E.U./dL NITRITE UA (POCT) Negative Negative LEUKOCYTES UA (POCT) Negative Negative COLOR UA (POCT) Dark yellow CLARITY UA (POCT) Clear PROCEDURES: PVR - 0 ml ASSESSMENT/PLAN: 1. BPH without obstruction/lower urinary tract symptoms (N40.0) - Clinically stable on Proscar and Flomax, last refilled on December 17. No new urinary symptoms reported. Urinalysis shows trace hematuria, likely secondary to prostatic enlargement; no immediate concerns. Continue current medication regimen. Follow-up in one year. 2. Screening for genitourinary condition (Z13.89) - Urinalysis performed today. Chronic stable, well controlled > 1 year Appt w/ B. MARTHA Bishop MT, PA-C for annual follow-up and refills. Patient Instructions (AVS) - printed for patient - Refills for Proscar and Flomax were provided on December 17; continue taking both as prescribed. - Urinalysis performed today showed only trace blood, consistent with your enlarged prostate; no changes to your treatment. - Continue your current urinary regimen, as it s working well. - Schedule your annual urinary follow-up before you leave: go to the second window in the lobby so staff can set the appointment; you ll receive a reminder about three months beforehand. MARTHA Martinez MT, PA-C Verified name and date of . CC Post Void Residual HPI: Elsa Palacio is a 84 year old male. The patient is here now for an appointment with MARTHA Martinez MT, PA-COV. Procedure: Explained procedure to patient and verbalizes understanding. Performed a PVR. Patient urinated and instructed to empty bladder as much as possible just prior to having PVR done using bladder ultrasound scanner. Results of scan: 0 mL The patient tolerated the procedure well. Plan: Appointment with Shaq. documented in this encounter [facility] 12-22-2024 Note HNO ID: [id number] Author: LEILANI ARCHER LPN Service: ? Author Type: Licensed Nurse Type: Progress Notes Filed: 12/22/2024 16:42 Note Text: Verified name and date of . CC Post Void Residual HPI: Elsa Palacio is a 84 year old male. The patient is here now for an appointment with Shaq Bishop, MARTHA, MT, PA-COV. Procedure: Explained procedure to patient and verbalizes understanding. Performed a PVR. Patient urinated and instructed to empty bladder as much as possible just prior to having PVR done using bladder ultrasound scanner. Results of scan: 0 mL The patient tolerated the procedure well. Plan: Appointment with Shaq. [facility] 12-17-2024 History of Presen t illness Narrative Images from the original note were not included. Elsa Palacio is a 84 year old male here for a Medicare wellness visit. Medicare Health Risk Assessment General Health Very good Exercise: Minutes/Day 40 min Exercise: Days/Week 6 days Alcohol: Daily Use Never Alcohol: Drinks/Day Patient does not drink Alcohol: 6 or more drinks Never Feel off balance No Concerns: Teeth/Dentures No Concerns: Sexual function No Troubled by feelings None of the above Frequency: Eating healthy diet Nearly every day ADLs requiring help None of the above Safety precautions in home/vehicle No Smoke, vape, chews tobacco No Difficulty hearing Yes Difficulty seeing No Current Providers Specialists: I have reviewed specialist-related care of the patient in the medical record. Current care team: Patient Care Team: Jeremias Damico MD as PCP - General (Family Medicine) Zeeshan Mahmood APRN.RUTHIE as [employer] (Family Medicine) Outside specialists seen: Urology, Dermatology Medical/Family history review Reviewed and updated problem list, medical/surgical/family/social history, medications, and allergies. Opioid use review Opioid Medications (last 90 days) No data to display Anxiety/Depression screening Recommendation: no further intervention at this time Cognitive screening Cognitive screening reviewed and No further action needed (score 3-5). Functional Observation Was the patient's Timed Up & Go test unsteady or >= 12 seconds? No Advance Care Planning Surrogate decision maker and/or advance care plan documented Measurements There were no vitals taken for this visit. Assessment/Plan Medicare annual wellness visit, subsequent (Z00.00) - Counseled on healthy diet and regular exercise - Fall avoidance information provided - Personalized prevention plan provided Chief Complaint Follow up HPI Elsa Palacio is a 84 year old male who presents here today for follow up. Uses Proscar 5 mg daily and Flomax 0.4 mg 2 pills daily. Follows with Urology. Headaches: none for years, does not follow with Neuro any longer. He was previously on Verapamil for headaches, and his BP was controlled on this. HTN: Taking Losartan 100 mg daily. Medication was increased from 50 mg to 100 mg last visit. No chest pains, dizziness, or Shortness of Breath. Checking BP at home, still getting elevated readings. Thyroid: Taking Synthroid 100 mcg daily. Giuseppe is physically active, walking just under 2 miles most days of the week and engaging in lawn care. He denies alcohol consumption and is mindful of maintaining a healthy diet. He follows with a urologist and an eye doctor, having had cataract surgery 2 years ago with a recent check-up 2 weeks ago. He reports doing well post-surgery but notes a slight loss in differentiating tones. Past medical history, appointments, medications, allergies reviewed. 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 Dr Jameson Diverticulosis of colon (without mention of hemorrhage) Dupuytren's contracture of both hands ED (erectile dysfunction) Hypothyroidism Migraine with aura, without mention of intractable migraine without mention of status migrainosus [facility], Dr Pierce Primary hypertension 10/13/2024 Previous Surgical History PAST SURGICAL HISTORY Procedure Laterality Date ARTHROSCOPY KNEE DIAGNOSTIC W/WO SYNOVIAL BX SPX ~1979 Arthroscopy, left knee COLONOSCOPY & POLYPECTOMY 06/18/2001,04/10/00 Colonoscopy COLONOSCOPY FLX DX W/COLLJ SPEC WHEN PFRMD 07/09/07 repeat due 2012 COLONOSCOPY FLX DX W/COLLJ SPEC WHEN PFRMD 05/27/2012 no polyps, repeat due 2017 COLONOSCOPY FLX DX W/COLLJ SPEC WHEN PFRMD 01/20/2018 Colonoscopy COLONOSCOPY W/BIOPSY SINGLE/MULTIPLE 05/10/05 RAD RESECT TUMOR SOFT TISS NECK/ANT THORAX <5CM ~1970 BREAST TUMOR, left RELEASE PALM CONTRACTURE 01/15/2012 Right hand needle aponeurotomy Family History FAMILY HISTORY Problem Relation Age of Onset other (CHF) Mother OLD AGE Colon Cancer Father age 76 +/- Patient Allergies ALLERGIES Allergen Reactions Cheese (See Vegetab* cluster headaches Milk Containing Pro* Intolerance Mold cluster headaches Penicillin G cluster h/a Pollen cluster headaches Vinegar cluster headaches Current Medications Current Outpatient Medications on File Prior to Visit Medication Sig losartan (COZAAR) 100 mg tablet Take 1 tablet by mouth once daily. SUMAtriptan (IMITREX STATDOSE PEN) 6 mg/0.5 mL pen Inject 0.5 mL subcutaneously as needed (at onset of headache. May repeat after 1 hour.). levothyroxine (SYNTHROID) 100 mcg tablet Take 1 tablet by mouth once daily. finasteride (PROSCAR) 5 mg tablet take 1 tablet by mouth once daily. tamsulosin (FLOMAX) 0.4 mg Take 2 capsules by mouth once daily. therapeutic multivitamin ORAL tablet Take by mouth once daily. MELATONIN 3 MG TAB Take 3 mg by mouth daily at bedtime. docusate sodium(LOPEZ LIQUI-GELS 100 MG CAP) Take by mouth once daily. No current facility-administered medications on file prior to visit. Social History SOCIAL HISTORY[1] EXAM: There were no vitals taken for this visit. General Appearance: Well appearing, alert, in no acute distress, well-hydrated, well nourished.. Lungs: Lungs clear to auscultation. No wheezing, rhonchi, rales.. Heart: RRR without murmur, gallop, or rubs. No ectopy. Health Maintenance List Advance Directive Discussion due on 04/22/2024 Medicare Advantage Annual Wellness Visit due on 04/22/2024 Influenza Vaccine(1) due on 12/21/2024 Depression Screening due on 01/23/2025 Anxiety Screening due on 01/23/2025 Diabetes Screening due on 01/19/2027 DTaP,Tdap,Td Vaccine(3 - Td or Tdap) due on 07/31/2027 RSV Vaccine Completed Shingrix Vaccine Completed Pneumococcal Vaccine: 50+ Completed Colonoscopy Discontinued Data reviewed Appointment on 12/14/2024 Component Date Value TSH 12/14/2024 0.466 Protein, Total 12/14/2024 6.2 (L) Albumin 12/14/2024 3.9 Calcium, Total 12/14/2024 9.7 Bilirubin, Total 12/14/2024 0.2 Alkaline Phosphatase 12/14/2024 93 AST 12/14/2024 15 ALT 12/14/2024 15 Glucose 12/14/2024 113 (H) BUN 12/14/2024 18 Creatinine 12/14/2024 1.13 Sodium 12/14/2024 138 Potassium 12/14/2024 4.6 Chloride 12/14/2024 103 CO2 12/14/2024 24 Anion Gap 12/14/2024 11 Estimated Glomerular Rajiv* 12/14/2024 64 Cholesterol, Total 12/14/2024 186 Triglyceride 12/14/2024 140 HDL Cholesterol 12/14/2024 45 LDL Cholesterol, Calcula* 12/14/2024 116 (H) Non HDL Cholesterol 12/14/2024 141 (H) VLDL Cholesterol 12/14/2024 24 TC:HDL Ratio 12/14/2024 4.13 LDL:HDL Ratio 12/14/2024 2.58 (H) Fasting Time 12/14/2024 12 WBC 12/14/2024 8.26 RBC 12/14/2024 4.79 Hemoglobin 12/14/2024 14.7 Hematocrit 12/14/2024 44.3 MCV 12/14/2024 92.5 MCH 12/14/2024 30.7 MCHC 12/14/2024 33.2 RDW-CV 12/14/2024 12.3 Platelet Count 12/14/2024 213 MPV 12/14/2024 10.4 Absolute nRBC 12/14/2024 <0.01 Recording using [employer] software for draft documentation of the visit was discussed with the patient/authorized insurance claim representative; all questions welcomed and answered. Patient/authorized insurance claim representative agreed to proceed 1. Acquired hypothyroidism (E03.9) TSH within target range on current Synthroid regimen. - Continue current Synthroid dose. - Refill sent to [facility]. 2. Primary hypertension (I10) Home BP readings range from 125-149 systolic and are slightly elevated diastolic; higher reading of 140/90 in office today. Previously well-controlled on verapamil, which was discontinued by neurology after cluster headaches resolved; subsequent increase in BP noted. Currently on losartan 100 mg daily. - Restart verapamil 80 mg nightly. - Continue losartan 100 mg daily. - Follow-up in 2 months to reassess BP control. 3. Encounter for Medicare annual wellness exam (Z00.00) Completed annual wellness visit; reviewed recent labs, which were within acceptable limits. - Reviewed and updated advanced directives. 4. Episodic cluster headache, not intractable (G44.019) Headaches have been resolved for 3-4 years; verapamil was discontinued by neurology. - Restart verapamil 80 mg nightly for BP control. 5. Benign prostatic hyperplasia without lower urinary tract symptoms (N40.0) Stable on tamsulosin and Proscar. - Continue tamsulosin and Proscar; refills sent to [facility]. Medical Decision Making: Problems: Moderate: 1+ chronic illnesses with change and 2+ stable chronic illnesses Data: Unique test result(s) reviewed: 3+ Risk: Moderate: Drug management Medical Decision Making Level: 4 - Moderate Jeremias Damico MD [1] Social History Tobacco Use Smoking status: Former Types: Cigarettes Smokeless tobacco: Never Tobacco comments: for 2 years when patient was 20yrs old Vaping Use Vaping status: Never Used Substance Use Topics Alcohol use: Not Currently Drug use: Never documented in this encounter [facility] 12-17-2024 Note HNO ID: [id number] Author: JEREMIAS DAMICO MD Service: ? Author Type: Physician Type: Progress Notes Filed: 12/17/2024 12:01 Note Text: Elsa Palacio is a 84 year old male here for a Medicare wellness visit. Medicare Health Risk Assessment General Health Very good Exercise: Minutes/Day 40 min Exercise: Days/Week 6 days Alcohol: Daily Use Never Alcohol: Drinks/Day Patient does not drink Alcohol: 6 or more drinks Never Feel off balance No Concerns: Teeth/Dentures No Concerns: Sexual function No Troubled by feelings None of the above Frequency: Eating healthy diet Nearly every day ADLs requiring help None of the above Safety precautions in home/vehicle No Smoke, vape, chews tobacco No Difficulty hearing Yes Difficulty seeing No Current Providers Specialists: I have reviewed specialist-related care of the patient in the medical record. Current care team: Patient Care Team: Jeremias Damico MD as PCP - General (Family Medicine) Zeeshan Mahmood APRN.RUTHIE as [employer] (Family Medicine) Outside specialists seen: Urology, Dermatology Medical/Family history review Reviewed and updated problem list, medical/surgical/family/social history, medications, and allergies. Opioid use review Opioid Medications (last 90 days) No data to display Anxiety/Depression screening Recommendation: no further intervention at this time Cognitive screening Cognitive screening reviewed and No further action needed (score 3-5). Functional Observation Was the patient's Timed Up AND Go test unsteady or >= 12 seconds? No Advance Care Planning Surrogate decision maker and/or advance care plan documented Measurements There were no vitals taken for this visit. Assessment/Plan Medicare annual wellness visit, subsequent (Z00.00) - Counseled on healthy diet and regular exercise - Fall avoidance information provided - Personalized prevention plan provided Chief Complaint Follow up HPI Elsa Palacio is a 84 year old male who presents here today for follow up. Uses Proscar 5 mg daily and Flomax 0.4 mg 2 pills daily. Follows with Urology. Headaches: none for years, does not follow with Neuro any longer. He was previously on Verapamil for headaches, and his BP was controlled on this. HTN: Taking Losartan 100 mg daily. Medication was increased from 50 mg to 100 mg last visit. No chest pains, dizziness, or Shortness of Breath. Checking BP at home, still getting elevated readings. Thyroid: Taking Synthroid 100 mcg daily. Giuseppe is physically active, walking just under 2 miles most days of the week and engaging in lawn care. He denies alcohol consumption and is mindful of maintaining a healthy diet. He follows with a urologist and an eye doctor, having had cataract surgery 2 years ago with a recent check-up 2 weeks ago. He reports doing well post-surgery but notes a slight loss in differentiating tones. Past medical history, appointments, medications, allergies reviewed. 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 Dr Jameson Diverticulosis of colon (without mention of hemorrhage) Dupuytren's contracture of both hands ED (erectile dysfunction) Hypothyroidism Migraine with aura, without mention of intractable migraine without mention of status migrainosus [facility], Dr Pierce Primary hypertension 10/13/2024 Previous Surgical History PAST SURGICAL HISTORY Procedure Laterality Date ARTHROSCOPY KNEE DIAGNOSTIC W/WO SYNOVIAL BX SPX ~1979 Arthroscopy, left knee COLONOSCOPY AND POLYPECTOMY 06/18/2001,04/10/00 Colonoscopy COLONOSCOPY FLX DX W/COLLJ SPEC WHEN PFRMD 07/09/07 repeat due 2012 COLONOSCOPY FLX DX W/COLLJ SPEC WHEN PFRMD 05/27/2012 no polyps, repeat due 2017 COLONOSCOPY FLX DX W/COLLJ SPEC WHEN PFRMD 01/20/2018 Colonoscopy COLONOSCOPY W/BIOPSY SINGLE/MULTIPLE 05/10/05 RAD RESECT TUMOR SOFT TISS NECK/ANT THORAX <5CM ~1969 BREAST TUMOR, left RELEASE PALM CONTRACTURE 01/15/2012 Right hand needle aponeurotomy Family History FAMILY HISTORY Problem Relation Age of Onset other (CHF) Mother OLD AGE Colon Cancer Father age 76 +/- Patient Allergies ALLERGIES Allergen Reactions Cheese (See Vegetab* cluster headaches Milk Containing Pro* Intolerance Mold cluster headaches Penicillin G cluster h/a Pollen cluster headaches Vinegar cluster headaches Current Medications Current Outpatient Medications on File Prior to Visit Medication Sig losartan (COZAAR) 100 mg tablet Take 1 tablet by mouth once daily. SUMAtriptan (IMITREX STATDOSE PEN) 6 mg/0.5 mL pen Inject 0.5 mL subcutaneously as needed (at onset of headache. May repeat after 1 hour.). levothyroxine (SYNTHROID) 100 mcg tablet Take 1 tablet by mouth once daily. finasteride (PROSCAR) 5 mg tablet take 1 tablet by mouth once daily. tamsulosin (FLOMAX) 0.4 mg (more content not included)... [facility] 11-19-2024 History of Presen t illness Narrative Chief Complaint Patient presents with: F/U 1 month: BP HPI Elsa Palacio is a 84 year old male who presents here today for 1 month follow up. HTN: Taking Losartan which was increased last visit from 25 mg daily to 50 mg daily. He has been checking BP at home with readings running around 114/82 to 163/103. Feels that the past week his BP has been running higher than normal. No changes to lifestyle or stress to cause the BP to be higher. He denies any chest pains, dizziness, or shortness of breath. He does get a little bit of dizziness with exertion, about half hour in to push mowing his yard he has to take a break. No Shortness of Breath or chest pains. Has not experienced any headaches. Past medical history, appointments, medications, allergies reviewed. 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 Primary hypertension 10/13/2024 Previous Surgical History PAST SURGICAL HISTORY Procedure Laterality Date ARTHROSCOPY KNEE DIAGNOSTIC W/WO SYNOVIAL BX SPX ~1979 Arthroscopy, left knee COLONOSCOPY & POLYPECTOMY 06/18/2001,04/10/00 Colonoscopy COLONOSCOPY FLX DX W/COLLJ SPEC WHEN PFRMD 07/09/07 repeat due 2012 COLONOSCOPY FLX DX W/COLLJ SPEC WHEN PFRMD 05/27/2012 no polyps, repeat due 2017 COLONOSCOPY FLX DX W/COLLJ SPEC WHEN PFRMD 01/20/2018 Colonoscopy COLONOSCOPY W/BIOPSY SINGLE/MULTIPLE 05/10/05 RAD RESECT TUMOR SOFT TISS NECK/ANT THORAX <5CM ~1969 BREAST TUMOR, left RELEASE PALM CONTRACTURE 01/15/2012 Right hand needle aponeurotomy Family History FAMILY HISTORY Problem Relation Age of Onset other (CHF) Mother OLD AGE Colon Cancer Father age 76 +/- Patient Allergies ALLERGIES Allergen Reactions Cheese (See Vegetab* cluster headaches Milk Containing Pro* Intolerance Mold cluster headaches Penicillin G cluster h/a Pollen cluster headaches Vinegar cluster headaches Current Medications Current Outpatient Medications on File Prior to Visit Medication Sig losartan (COZAAR) 50 mg tablet Take 1 tablet by mouth once daily. SUMAtriptan (IMITREX STATDOSE PEN) 6 mg/0.5 mL pen Inject 0.5 mL subcutaneously as needed (at onset of headache. May repeat after 1 hour.). levothyroxine (SYNTHROID) 100 mcg tablet Take 1 tablet by mouth once daily. finasteride (PROSCAR) 5 mg tablet take 1 tablet by mouth once daily. tamsulosin (FLOMAX) 0.4 mg Take 2 capsules by mouth once daily. therapeutic multivitamin ORAL tablet Take by mouth once daily. MELATONIN 3 MG TAB Take 3 mg by mouth daily at bedtime. docusate sodium([email or web address] LIQUI-GELS 100 MG CAP) Take by mouth once daily. No current facility-administered medications on file prior to visit. Social History Social History Tobacco Use Smoking status: Former Types: Cigarettes Smokeless tobacco: Never Tobacco comments: for 2 years when patient was 20yrs old Vaping Use Vaping status: Never Used Substance Use Topics Alcohol use: Not Currently Drug use: Never EXAM: BP 142/98 Pulse 74 Resp 16 Wt 78 kg (171 lb 15.3 oz) BMI 25.12 kg/m General Appearance: Well appearing, alert, in no acute distress, well-hydrated, well nourished.. Lungs: Lungs clear to auscultation. No wheezing, rhonchi, rales.. Heart: RRR without murmur, gallop, or rubs. No ectopy. Health Maintenance List Advance Directive Discussion due on 04/22/2024 Medicare Advantage Annual Wellness Visit due on 04/22/2024 Influenza Vaccine(1) due on 12/21/2024 Depression Screening due on 01/23/2025 Anxiety Screening due on 01/23/2025 Diabetes Screening due on 01/19/2027 DTaP,Tdap,Td Vaccine(3 - Td or Tdap) due on 07/31/2027 RSV Vaccine Completed Shingrix Vaccine Completed Pneumococcal Vaccine: 50+ Completed Colonoscopy Discontinued Data reviewed none 1. Primary hypertension (I10) Blood pressure readings have been normal to slightly elevated, with a recent outlier of 163/103 mmHg. Currently on Losartan 50 mg daily. Reports mild dizziness during prolonged physical activity, which is a new symptom since starting the medication. - Increased Losartan to 100 mg daily; prescription sent to [facility] in [place]. - Advised patient to take medication in the evening. - Scheduled follow-up appointment in one month to reassess blood pressure and symptoms. - Ordered lab work to be completed before the next visit. - Cancelled appointment with Zeeshan and will conduct Medicare wellness visit during the next appointment. 2. Acquired hypothyroidism (E03.9) Recording using [employer] software for draft documentation of the visit was discussed with the patient/authorized insurance claim representative; all questions welcomed and answered. Patient/authorized insurance claim representative agreed to proceed I agree with the Chief Complaint, ROS, and Past Histories independently gathered by the clinical direct support professional and the remaining scribed note accurately describes my personal service to the patient. Medical Decision Making: Problems: Moderate: 1+ chronic illnesses with change Data: Unique test(s) ordered: 3+ Risk: Moderate: Drug management Medical Decision Making Level: 4 - Moderate Jeremias Damico MD The documentation for this note was completed by Jessica Bates MA acting as scribe for Jeremias Damico MD. November 19, 2024 11:09 AM. Jessica Bates MA documented in this encounter [facility] 11-19-2024 Note HNO ID: [id number] Author: JEREMIAS DAMICO MD Service: ? Author Type: Physician Type: Progress Notes Filed: 11/19/2024 12:00 Note Text: Chief Complaint Patient presents with: F/U 1 month: BP HPI Elsa Palacio is a 84 year old male who presents here today for 1 month follow up. HTN: Taking Losartan which was increased last visit from 25 mg daily to 50 mg daily. He has been checking BP at home with readings running around 114/82 to 163/103. Feels that the past week his BP has been running higher than normal. No changes to lifestyle or stress to cause the BP to be higher. He denies any chest pains, dizziness, or shortness of breath. He does get a little bit of dizziness with exertion, about half hour in to push mowing his yard he has to take a break. No Shortness of Breath or chest pains. Has not experienced any headaches. Past medical history, appointments, medications, allergies reviewed. 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 Dr Jameson Diverticulosis of colon (without mention of hemorrhage) Dupuytren's contracture of both hands ED (erectile dysfunction) Hypothyroidism Migraine with aura, without mention of intractable migraine without mention of status migrainosus [facility], Dr Pierce Primary hypertension 10/13/2024 Previous Surgical History PAST SURGICAL HISTORY Procedure Laterality Date ARTHROSCOPY KNEE DIAGNOSTIC W/WO SYNOVIAL BX SPX ~1979 Arthroscopy, left knee COLONOSCOPY AND POLYPECTOMY 06/18/2001,04/10/00 Colonoscopy COLONOSCOPY FLX DX W/COLLJ SPEC WHEN PFRMD 07/09/07 repeat due 2012 COLONOSCOPY FLX DX W/COLLJ SPEC WHEN PFRMD 05/27/2012 no polyps, repeat due 2018 COLONOSCOPY FLX DX W/COLLJ SPEC WHEN PFRMD 01/20/2018 Colonoscopy COLONOSCOPY W/BIOPSY SINGLE/MULTIPLE 05/10/05 RAD RESECT TUMOR SOFT TISS NECK/ANT THORAX <5CM ~1970 BREAST TUMOR, left RELEASE PALM CONTRACTURE 01/15/2012 Right hand needle aponeurotomy Family History FAMILY HISTORY Problem Relation Age of Onset other (CHF) Mother OLD AGE Colon Cancer Father age 76 +/- Patient Allergies ALLERGIES Allergen Reactions Cheese (See Vegetab* cluster headaches Milk Containing Pro* Intolerance Mold cluster headaches Penicillin G cluster h/a Pollen cluster headaches Vinegar cluster headaches Current Medications Current Outpatient Medications on File Prior to Visit Medication Sig losartan (COZAAR) 50 mg tablet Take 1 tablet by mouth once daily. SUMAtriptan (IMITREX STATDOSE PEN) 6 mg/0.5 mL pen Inject 0.5 mL subcutaneously as needed (at onset of headache. May repeat after 1 hour.). levothyroxine (SYNTHROID) 100 mcg tablet Take 1 tablet by mouth once daily. finasteride (PROSCAR) 5 mg tablet take 1 tablet by mouth once daily. tamsulosin (FLOMAX) 0.4 mg Take 2 capsules by mouth once daily. therapeutic multivitamin ORAL tablet Take by mouth once daily. MELATONIN 3 MG TAB Take 3 mg by mouth daily at bedtime. docusate sodium([email or web address] LIQUI-GELS 100 MG CAP) Take by mouth once daily. No current facility-administered medications on file prior to visit. Social History Social History Tobacco Use Smoking status: Former Types: Cigarettes Smokeless tobacco: Never Tobacco comments: for 2 years when patient was 20yrs old Vaping Use Vaping status: Never Used Substance Use Topics Alcohol use: Not Currently Drug use: Never EXAM: BP 142/98 Pulse 74 Resp 16 Wt 78 kg (171 lb 15.3 oz) BMI 25.12 kg/m? General Appearance: Well appearing, alert, in no acute distress, well-hydrated, well nourished.. Lungs: Lungs clear to auscultation. No wheezing, rhonchi, rales.. Heart: RRR without murmur, gallop, or rubs. No ectopy. Health Maintenance List Advance Directive Discussion due on 04/22/2024 Medicare Advantage Annual Wellness Visit due on 04/22/2024 Influenza Vaccine(1) due on 12/21/2024 Depression Screening due on 01/23/2025 Anxiety Screening due on 01/23/2025 Diabetes Screening due on 01/19/2027 DTaP,Tdap,Td Vaccine(3 - Td or Tdap) due on 07/31/2027 RSV Vaccine Completed Shingrix Vaccine Completed Pneumococcal Vaccine: 50+ Completed Colonoscopy Discontinued Data reviewed none 1. Primary hypertension (I10) Blood pressure readings have been normal to slightly elevated, with a recent outlier of 163/103 mmHg. Currently on Losartan 50 mg daily. Reports mild dizziness during prolonged physical activity, which is a new symptom since starting the medication. - Increased Losartan to 100 mg daily; prescription sent to [facility] in [place]. - Advised patient to take medication in the evening. - Scheduled follow-up appointment in one month to reassess blood pressure and symptoms. - Ordered lab work to be completed before the next visit. - Cancelled appointment with Zeeshan and will conduct Medicare wellness visit during t (more content not included)... [facility] 10-13-2024 History of Presen t illness Narrative Chief Complaint Patient presents with: Follow Up: Blood pressure HPI Elsa Palacio is a 84 year old male who presents here today for 1 month follow up. HTN: Was started on Losartan 25 mg daily last visit as BP was running high. Neuro d/c his Verapamil due to him being headache free for several years and BP being controlled, but since being off the medication his BP was running higher. He denies any chest pains, dizziness, or shortness of breath. He has been checking BP at home with readings running around 155/108 to 130/80; recently averaging 140s/80s.. Past medical history, appointments, medications, allergies reviewed. 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 Dr Jameson Diverticulosis of colon (without mention of hemorrhage) Dupuytren's contracture of both hands ED (erectile dysfunction) Hypothyroidism Migraine with aura, without mention of intractable migraine without mention of status migrainosus [facility], Dr Pierce Previous Surgical History PAST SURGICAL HISTORY Procedure Laterality Date ARTHROSCOPY KNEE DIAGNOSTIC W/WO SYNOVIAL BX SPX ~1979 Arthroscopy, left knee COLONOSCOPY & POLYPECTOMY 06/18/2001,04/10/00 Colonoscopy COLONOSCOPY FLX DX W/COLLJ SPEC WHEN PFRMD 07/09/07 repeat due 2012 COLONOSCOPY FLX DX W/COLLJ SPEC WHEN PFRMD 05/27/2012 no polyps, repeat due 2017 COLONOSCOPY FLX DX W/COLLJ SPEC WHEN PFRMD 01/20/2018 Colonoscopy COLONOSCOPY W/BIOPSY SINGLE/MULTIPLE 05/10/05 RAD RESECT TUMOR SOFT TISS NECK/ANT THORAX <5CM ~1970 BREAST TUMOR, left RELEASE PALM CONTRACTURE 01/15/2012 Right hand needle aponeurotomy Family History FAMILY HISTORY Problem Relation Age of Onset other (CHF) Mother OLD AGE Colon Cancer Father age 76 +/- Patient Allergies ALLERGIES Allergen Reactions Cheese (See Vegetab* cluster headaches Milk Containing Pro* Intolerance Mold cluster headaches Penicillin G cluster h/a Pollen cluster headaches Vinegar cluster headaches Current Medications Current Outpatient Medications on File Prior to Visit Medication Sig losartan (COZAAR) 25 mg tablet Take 1 tablet by mouth once daily. SUMAtriptan (IMITREX STATDOSE PEN) 6 mg/0.5 mL pen Inject 0.5 mL subcutaneously as needed (at onset of headache. May repeat after 1 hour.). levothyroxine (SYNTHROID) 100 mcg tablet Take 1 tablet by mouth once daily. finasteride (PROSCAR) 5 mg tablet take 1 tablet by mouth once daily. tamsulosin (FLOMAX) 0.4 mg Take 2 capsules by mouth once daily. therapeutic multivitamin ORAL tablet Take by mouth once daily. MELATONIN 3 MG TAB Take 3 mg by mouth daily at bedtime. docusate sodium([email or web address] LIQUI-GELS 100 MG CAP) Take by mouth once daily. No current facility-administered medications on file prior to visit. Social History Social History Tobacco Use Smoking status: Former Types: Cigarettes Smokeless tobacco: Never Tobacco comments: for 2 years when patient was 20yrs old Vaping Use Vaping status: Never Used Substance Use Topics Alcohol use: Not Currently Drug use: Never EXAM: BP 140/82 Pulse 78 Resp 16 Wt 79.4 kg (175 lb 0.7 oz) SpO2 99% BMI 25.57 kg/m General Appearance: Well appearing, alert, in no acute distress, well-hydrated, well nourished.. Lungs: Lungs clear to auscultation. No wheezing, rhonchi, rales.. Heart: RRR without murmur, gallop, or rubs. No ectopy. Health Maintenance List Advance Directive Discussion due on 04/22/2024 Medicare Advantage Annual Wellness Visit due on 04/22/2024 Covid-19 Vaccine( season) due on 07/24/2024 Depression Screening due on 01/23/2025 Anxiety Screening due on 01/23/2025 Diabetes Screening due on 01/19/2027 DTaP,Tdap,Td Vaccine(3 - Td or Tdap) due on 07/31/2027 Influenza Vaccine Completed RSV Vaccine Completed Shingrix Vaccine Completed Pneumococcal Vaccine: 50+ Completed Colonoscopy Discontinued Data reviewed Home BP readings 1. Primary hypertension (I10) - Blood pressure readings have shown some improvement with losartan 25 mg daily, but still higher than desired, with recent readings up to 155 mmHg. - No adverse effects reported from losartan. - Increased losartan to 50 mg daily. - Advised patient that it may take 1-2 weeks for the medication to equilibrate in the system and to continue monitoring blood pressure at home. - Prescription for losartan 50 mg sent to [facility]. - Follow-up appointment scheduled in one month to reassess blood pressure control. Recording using [employer] software for draft documentation of the visit was discussed with the patient/authorized insurance claim representative; all questions welcomed and answered. Patient/authorized insurance claim representative agreed to proceed I agree with the Chief Complaint, ROS, and Past Histories independently gathered by the clinical direct support professional and the remaining scribed note accurately describes my personal service to the patient. Medical Decision Making: Problems: Low: Stable chronic illness Risk: Moderate: Drug management Medical Decision Making Level: 3 - Low Jeremias Damico MD The documentation for this note was completed by Jessica Bates MA acting as scribe for Jeremias Damico MD. October 13, 2024 4:27 PM. Jessica Bates MA documented in this encounter [facility] 10-13-2024 Note HNO ID: [id number] Author: JEREMIAS DAMICO MD Service: ? Author Type: Physician Type: Progress Notes Filed: 10/13/2024 17:15 Note Text: Chief Complaint Patient presents with: Follow Up: Blood pressure HPI Elsa Palacio is a 84 year old male who presents here today for 1 month follow up. HTN: Was started on Losartan 25 mg daily last visit as BP was running high. Neuro d/c his Verapamil due to him being headache free for several years and BP being controlled, but since being off the medication his BP was running higher. He denies any chest pains, dizziness, or shortness of breath. He has been checking BP at home with readings running around 155/108 to 130/80; recently averaging 140s/80s.. Past medical history, appointments, medications, allergies reviewed. 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 Previous Surgical History PAST SURGICAL HISTORY Procedure Laterality Date ARTHROSCOPY KNEE DIAGNOSTIC W/WO SYNOVIAL BX SPX ~1979 Arthroscopy, left knee COLONOSCOPY AND POLYPECTOMY 06/18/2001,04/10/00 Colonoscopy COLONOSCOPY FLX DX W/COLLJ SPEC WHEN PFRMD 07/09/07 repeat due 2012 COLONOSCOPY FLX DX W/COLLJ SPEC WHEN PFRMD 05/27/2012 no polyps, repeat due 2017 COLONOSCOPY FLX DX W/COLLJ SPEC WHEN PFRMD 01/20/2018 Colonoscopy COLONOSCOPY W/BIOPSY SINGLE/MULTIPLE 05/10/05 RAD RESECT TUMOR SOFT TISS NECK/ANT THORAX <5CM ~1969 BREAST TUMOR, left RELEASE PALM CONTRACTURE 01/15/2012 Right hand needle aponeurotomy Family History FAMILY HISTORY Problem Relation Age of Onset other (CHF) Mother OLD AGE Colon Cancer Father age 76 +/- Patient Allergies ALLERGIES Allergen Reactions Cheese (See Vegetab* cluster headaches Milk Containing Pro* Intolerance Mold cluster headaches Penicillin G cluster h/a Pollen cluster headaches Vinegar cluster headaches Current Medications Current Outpatient Medications on File Prior to Visit Medication Sig losartan (COZAAR) 25 mg tablet Take 1 tablet by mouth once daily. SUMAtriptan (IMITREX STATDOSE PEN) 6 mg/0.5 mL pen Inject 0.5 mL subcutaneously as needed (at onset of headache. May repeat after 1 hour.). levothyroxine (SYNTHROID) 100 mcg tablet Take 1 tablet by mouth once daily. finasteride (PROSCAR) 5 mg tablet take 1 tablet by mouth once daily. tamsulosin (FLOMAX) 0.4 mg Take 2 capsules by mouth once daily. therapeutic multivitamin ORAL tablet Take by mouth once daily. MELATONIN 3 MG TAB Take 3 mg by mouth daily at bedtime. docusate sodium([employer] LIQUI-GELS 100 MG CAP) Take by mouth once daily. No current facility-administered medications on file prior to visit. Social History Social History Tobacco Use Smoking status: Former Types: Cigarettes Smokeless tobacco: Never Tobacco comments: for 2 years when patient was 20yrs old Vaping Use Vaping status: Never Used Substance Use Topics Alcohol use: Not Currently Drug use: Never EXAM: BP 140/82 Pulse 78 Resp 16 Wt 79.4 kg (175 lb 0.7 oz) SpO2 99% BMI 25.57 kg/m? General Appearance: Well appearing, alert, in no acute distress, well-hydrated, well nourished.. Lungs: Lungs clear to auscultation. No wheezing, rhonchi, rales.. Heart: RRR without murmur, gallop, or rubs. No ectopy. Health Maintenance List Advance Directive Discussion due on 04/22/2024 Medicare Advantage Annual Wellness Visit due on 04/22/2024 Covid-19 Vaccine() due on 07/24/2024 Depression Screening due on 01/23/2025 Anxiety Screening due on 01/23/2025 Diabetes Screening due on 01/19/2027 DTaP,Tdap,Td Vaccine(3 - Td or Tdap) due on 07/31/2027 Influenza Vaccine Completed RSV Vaccine Completed Shingrix Vaccine Completed Pneumococcal Vaccine: 50+ Completed Colonoscopy Discontinued Data reviewed Home BP readings 1. Primary hypertension (I10) - Blood pressure readings have shown some improvement with losartan 25 mg daily, but still higher than desired, with recent readings up to 155 mmHg. - No adverse effects reported from losartan. - Increased losartan to 50 mg daily. - Advised patient that it may take 1-2 weeks for the medication to equilibrate in the system and to continue monitoring blood pressure at home. - Prescription for losartan 50 mg sent to [facility] pharmacy. - Follow-up appointment scheduled in one month to reassess blood pressure control. Recording using [employer] software for draft documentation of the visit was discussed with the patient/authorized insurance claim representative; all questions welcomed and answered. Patient/authorized represe (more content not included)... [facility] 09-04-2024 History of Presen t illness Narrative Chief Complaint Patient presents with: Blood Pressure HPI Elsa Palacio is a 84 year old male who presents here today for blood pressure follow up. HTN: He saw Snow Brooks CNP in Neuro for his headache and she discontinued the Verapamil as he had been headache free for several years and his BP was controlled. Pt states that they have slowly been decreasing the Verapamil. At that visit his BP was 147/77. He discontinued the medication as directed and has been monitoring his BP which has been higher as expected. Stated his BP was lower when on the medication. At this time pt is not on any blood pressure medications. He has been checking his BP and reported readings on 08/27/24 via [employer]. Denies any chest pains, dizziness, SOB, or headaches. Readings: August 10-144/89 August 13-145/89 August 17-144/91 August 1-150/105 August 23-153/101 August 25-122/93 August 7-151/103 Past medical history, appointments, medications, allergies reviewed. 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 Dr Jameson Diverticulosis of colon (without mention of hemorrhage) Dupuytren's contracture of both hands ED (erectile dysfunction) Hypothyroidism Migraine with aura, without mention of intractable migraine without mention of status migrainosus [facility], Dr Pierce Previous Surgical History PAST SURGICAL HISTORY Procedure Laterality Date ARTHROSCOPY KNEE DIAGNOSTIC W/WO SYNOVIAL BX SPX ~1979 Arthroscopy, left knee COLONOSCOPY & POLYPECTOMY 06/18/2001,04/10/00 Colonoscopy COLONOSCOPY FLX DX W/COLLJ SPEC WHEN PFRMD 07/09/07 repeat due 2012 COLONOSCOPY FLX DX W/COLLJ SPEC WHEN PFRMD 05/27/2012 no polyps, repeat due 2017 COLONOSCOPY FLX DX W/COLLJ SPEC WHEN PFRMD 01/20/2018 Colonoscopy COLONOSCOPY W/BIOPSY SINGLE/MULTIPLE 05/10/05 RAD RESECT TUMOR SOFT TISS NECK/ANT THORAX <5CM ~1969 BREAST TUMOR, left RELEASE PALM CONTRACTURE 01/15/2012 Right hand needle aponeurotomy Family History FAMILY HISTORY Problem Relation Age of Onset other (CHF) Mother OLD AGE Colon Cancer Father age 76 +/- Patient Allergies ALLERGIES Allergen Reactions Cheese (See Vegetab* cluster headaches Milk Containing Pro* Intolerance Mold cluster headaches Penicillin G cluster h/a Pollen cluster headaches Vinegar cluster headaches Current Medications Current Outpatient Medications on File Prior to Visit Medication Sig SUMAtriptan (IMITREX STATDOSE PEN) 6 mg/0.5 mL pen Inject 0.5 mL subcutaneously as needed (at onset of headache. May repeat after 1 hour.). levothyroxine (SYNTHROID) 100 mcg tablet Take 1 tablet by mouth once daily. finasteride (PROSCAR) 5 mg tablet take 1 tablet by mouth once daily. tamsulosin (FLOMAX) 0.4 mg Take 2 capsules by mouth once daily. verapamil 80 mg tablet Take one(1) tablet two(2) times daily. therapeutic multivitamin ORAL tablet Take by mouth once daily. MELATONIN 3 MG TAB Take 3 mg by mouth daily at bedtime. docusate sodium([email or web address] LIQUI-GELS 100 MG CAP) Take by mouth once daily. No current facility-administered medications on file prior to visit. Social History Social History Tobacco Use Smoking status: Former Types: Cigarettes Smokeless tobacco: Never Tobacco comments: for 2 years when patient was 20yrs old Vaping Use Vaping status: Never Used Substance Use Topics Alcohol use: Not Currently Drug use: Never EXAM: BP 160/98 Pulse 74 Resp 16 Wt 80.4 kg (177 lb 4 oz) BMI 25.90 kg/m General Appearance: Well appearing, alert, in no acute distress, well-hydrated, well nourished.. Lungs: Lungs clear to auscultation. No wheezing, rhonchi, rales.. Heart: RRR without murmur, gallop, or rubs. No ectopy. Health Maintenance List Advance Directive Discussion due on 04/22/2024 Covid-19 Vaccine() due on 07/24/2024 Depression Screening due on 01/23/2025 Anxiety Screening due on 01/23/2025 Diabetes Screening due on 01/19/2027 DTaP,Tdap,Td Vaccine(3 - Td or Tdap) due on 07/31/2027 Influenza Vaccine Completed RSV Vaccine Completed Shingrix Vaccine Completed Pneumococcal Vaccine: 50+ Completed Colonoscopy Discontinued Data reviewed None ASSESSMENT/PLAN: 1. Primary hypertension - ICD9: 401.9, ICD10: I10 - Worsening control - Start losartan 25 mg daily - Recommend home blood pressure monitoring, to bring results to next visit - Encouraged sodium restriction, DASH or Mediterranean diet - Recommend regular aerobic exercise - Discussed need for and benefit of weight loss. BMI 25.90 kg/(m^2) Follow up in 1 month. I agree with the Chief Complaint, ROS, and Past Histories independently gathered by the clinical direct support professional and the remaining scribed note accurately describes my personal service to the patient. Medical Decision Making: Problems: Moderate: 1+ chronic illnesses with change Risk: Moderate: Drug management Medical Decision Making Level: 4 - Moderate Jeremias Damico MD The documentation for this note was completed by Jessica Bates MA acting as scribe for Jeremias Damico MD. September 04, 2024 4:38 PM. Jessica Bates MA documented in this encounter [facility] 09-04-2024 Note HNO ID: [id number] Author: JEREMIAS DAMICO MD Service: ? Author Type: Physician Type: Progress Notes Filed: 09/04/2024 16:51 Note Text: Chief Complaint Patient presents with: Blood Pressure HPI Elsa Palacio is a 84 year old male who presents here today for blood pressure follow up. HTN: He saw Snow Brooks CNP in Neuro for his headache and she discontinued the Verapamil as he had been headache free for several years and his BP was controlled. Pt states that they have slowly been decreasing the Verapamil. At that visit his BP was 147/77. He discontinued the medication as directed and has been monitoring his BP which has been higher as expected. Stated his BP was lower when on the medication. At this time pt is not on any blood pressure medications. He has been checking his BP and reported readings on 08/27/24 via [employer]. Denies any chest pains, dizziness, SOB, or headaches. Readings: August 10-144/89 August 13-145/89 August 17-144/91 August 20-150/105 August 23-153/101 August 25-122/93 May 7-151/103 Past medical history, appointments, medications, allergies reviewed. 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 Previous Surgical History PAST SURGICAL HISTORY Procedure Laterality Date ARTHROSCOPY KNEE DIAGNOSTIC W/WO SYNOVIAL BX SPX ~1979 Arthroscopy, left knee COLONOSCOPY AND POLYPECTOMY 06/18/2001,04/10/00 Colonoscopy COLONOSCOPY FLX DX W/COLLJ SPEC WHEN PFRMD 07/09/07 repeat due 2012 COLONOSCOPY FLX DX W/COLLJ SPEC WHEN PFRMD 05/27/2012 no polyps, repeat due 2017 COLONOSCOPY FLX DX W/COLLJ SPEC WHEN PFRMD 01/20/2018 Colonoscopy COLONOSCOPY W/BIOPSY SINGLE/MULTIPLE 05/10/05 RAD RESECT TUMOR SOFT TISS NECK/ANT THORAX <5CM ~1969 BREAST TUMOR, left RELEASE PALM CONTRACTURE 01/15/2012 Right hand needle aponeurotomy Family History FAMILY HISTORY Problem Relation Age of Onset other (CHF) Mother OLD AGE Colon Cancer Father age 76 +/- Patient Allergies ALLERGIES Allergen Reactions Cheese (See Vegetab* cluster headaches Milk Containing Pro* Intolerance Mold cluster headaches Penicillin G cluster h/a Pollen cluster headaches Vinegar cluster headaches Current Medications Current Outpatient Medications on File Prior to Visit Medication Sig SUMAtriptan (IMITREX STATDOSE PEN) 6 mg/0.5 mL pen Inject 0.5 mL subcutaneously as needed (at onset of headache. May repeat after 1 hour.). levothyroxine (SYNTHROID) 100 mcg tablet Take 1 tablet by mouth once daily. finasteride (PROSCAR) 5 mg tablet take 1 tablet by mouth once daily. tamsulosin (FLOMAX) 0.4 mg Take 2 capsules by mouth once daily. verapamil 80 mg tablet Take one(1) tablet two(2) times daily. therapeutic multivitamin ORAL tablet Take by mouth once daily. MELATONIN 3 MG TAB Take 3 mg by mouth daily at bedtime. docusate sodium(LOPEZ LIQUI-GELS 100 MG CAP) Take by mouth once daily. No current facility-administered medications on file prior to visit. Social History Social History Tobacco Use Smoking status: Former Types: Cigarettes Smokeless tobacco: Never Tobacco comments: for 2 years when patient was 20yrs old Vaping Use Vaping status: Never Used Substance Use Topics Alcohol use: Not Currently Drug use: Never EXAM: BP 160/98 Pulse 74 Resp 16 Wt 80.4 kg (177 lb 4 oz) BMI 25.90 kg/m? General Appearance: Well appearing, alert, in no acute distress, well-hydrated, well nourished.. Lungs: Lungs clear to auscultation. No wheezing, rhonchi, rales.. Heart: RRR without murmur, gallop, or rubs. No ectopy. Health Maintenance List Advance Directive Discussion due on 04/22/2024 Covid-19 Vaccine() due on 07/24/2024 Depression Screening due on 01/23/2025 Anxiety Screening due on 01/23/2025 Diabetes Screening due on 01/19/2027 DTaP,Tdap,Td Vaccine(3 - Td or Tdap) due on 07/31/2027 Influenza Vaccine Completed RSV Vaccine Completed Shingrix Vaccine Completed Pneumococcal Vaccine: 50+ Completed Colonoscopy Discontinued Data reviewed None ASSESSMENT/PLAN: 1. Primary hypertension - ICD9: 401.9, ICD10: I10 - Worsening control - Start losartan 25 mg daily - Recommend home blood pressure monitoring, to bring results to next visit - Encouraged sodium restriction, DASH or Mediterranean diet - Recommend regular aerobic exercise - Discussed need for and benefit of weight loss. BMI 25.90 kg/(m2) Follow up in 1 month. I agree with the Chief Complaint, ROS, and Past Histories independently gathered by the clinical direct support professional and the remaining scribe (more content not included)... [facility] 09-01-2024 Telephone encounter Note Patient rescheduled. [facility] 09-01-2024 Miscellaneous Notes Patient rescheduled. Notified pt of message below from Provider. Offered to schedule sooner appt if pt would like. Also made pt aware that Provider is okay with appt as scheduled, if pt prefers to not come sooner. Wait pt response. Naida Vazquez MA He probably will be okay. I think Dr. Damico has an appt at 3 pm this Saturday if he wants a sooner appointment. Zeeshan Mahmood APRN.RUTHIE Zeeshan are you okay with the appt as scheduled on 09/15/24. Naida Vazquez MA Message sent to pt notifying him that he needs appt. Awaiting response on day and time that would work for his appt. Jessica Bates MA Looks like patient would benefit from a visit to discuss blood pressure management Zeeshan Mahmood APRN.RUTHIE See pt message and advise. Medication was d/c by Neurology. Naida Vazquez MA documented in this encounter [facility] 08-31-2024 Telephone encounter Note Notified pt of message below from Provider. Offered to schedule sooner appt if pt would like. Also made pt aware that Provider is okay with appt as scheduled, if pt prefers to not come sooner. Wait pt response. Naida Vazquez MA [facility] 08-31-2024 Telephone encounter Note He probably will be okay. I think Dr. Damico has an appt at 3 pm this Saturday if he wants a sooner appointment. Zeeshan Mahmood APRN.TOOL SUPERVISOR [facility] 08-31-2024 Telephone encounter Note Zeeshan are you okay with the appt as scheduled on 09/15/24. Naida Vazquez MA [facility] 08-27-2024 Telephone encounter Note Message sent to pt notifying him that he needs appt. Awaiting response on day and time that would work for his appt. Jessica Bates MA [facility] 08-27-2024 Telephone encounter Note Looks like patient would benefit from a visit to discuss blood pressure management Zeeshan Mahmood APRN.TOOL SUPERVISOR [facility] 08-27-2024 Telephone encounter Note See pt message and advise. Medication was d/c by Neurology. Naida Vazquez MA [facility] 08-18-2024 Note HNO ID: [id number] Author: ROBYN HOWE MA Service: ? Author Type: Windmill Technician Type: Progress Notes Filed: 08/18/2024 10:47 Note Text: POPULATION HEALTH NAVIGATION OUTREACH Action/FYI Patient is on [facility] Outreach List and needs appointment to address : Advance Directive Discussion Covid-19 Vaccine() Patient due for: N/A - Needs H@H number MyChart Active: Yes 1st Attempt: Left message for patient to call back. Sent [place] message. AWV already scheduled 01-29-25 Healthy at Home (H@H) phone number provided [phone]: Yes via [employer] Reason for Outreach [facility] Care Gaps due: N/A Patient Contacted: Unable or unnecessary to reach patient: Left message [employer] message sent Navigation Signature: Robyn Howe MA August 18, 2024 10:44 AM [facility] 08-18-2024 History of Presen t illness Narrative POPULATION HEALTH NAVIGATION OUTREACH Action/FYI Patient is on [facility] Outreach List and needs appointment to address : Advance Directive Discussion Covid-19 Vaccine() Patient due for: N/A - Needs H@H number MyChart Active: Yes 1st Attempt: Left message for patient to call back. Sent [place] message. AWV already scheduled 01-29-25 Healthy at Home (H@H) phone number provided [phone]: Yes via [employer] Reason for Outreach [facility] Care Gaps due: N/A Patient Contacted: Unable or unnecessary to reach patient: Left message [employer] message sent Navigation Signature: Robyn Howe MA August 18, 2024 10:44 AM [facility] Care Coordination Chart Review Provider Action / FYI: AWV around 01/23/25 Healthy at home number Upon review of patient chart, the patient is excluded from Chronic Disease Management Patient is not a candidate for CDM at this time and placed in the following status: Deferred- NO CDM DX Action taken: Patient routed to Navigation Team Provide H@H number Schedule PCP appointment(s) . Sarmad Newton RN August 18, 2024 10:40 AM documented in this encounter [facility] 08-18-2024 Note HNO ID: [id number] Author: SARMAD NEWTON RN Service: ? Author Type: Registered Nurse Type: Progress Notes Filed: 08/18/2024 10:42 Note Text: Value Based Care Coordination Chart Review Provider Action / FYI: AWV around 01/23/25 Healthy at home number Upon review of patient chart, the patient is excluded from Chronic Disease Management Patient is not a candidate for CDM at this time and placed in the following status: Deferred- NO CDM DX Action taken: Patient routed to Navigation Team Provide H@H number Schedule PCP appointment(s) . Sarmad Newton RN August 18, 2024 10:40 AM [facility] 08-18-2024 Note Patient Outreach (AM [facility]) ELSA PALACIO ([id number]) 1940 M Date Time Provider Department 08/18/24 SARMAD NEWTON During your visit today, we recorded the following information about you: Sarmad Newton RN 08/18/2024 10:42 AM Signed Value Based Care Coordination Chart Review Provider Action / FYI: AWV around 01/23/25 Healthy at home number Upon review of patient chart, the patient is excluded from Chronic Disease Management Patient is not a candidate for CDM at this time and placed in the following status: Deferred- NO CDM DX Action taken: Patient routed to Navigation Team Provide H@H number Schedule PCP appointment(s) . Sarmad Newton RN August 18, 2024 10:40 AM Robyn Howe MA 08/18/2024 10:47 AM Signed POPULATION HEALTH NAVIGATION OUTREACH Action/FYI Patient is on [facility] Hub Outreach List and needs appointment to address : Advance Directive Discussion Covid-19 Vaccine( season) Patient due for: N/A - Needs H@H number [employer] Active: Yes 1st Attempt: Left message for patient to call back. Sent [place] message. AWV already scheduled 01-29-25 Healthy at Home (H@H) phone number provided [phone]: Yes via mychart Reason for Outreach [facility] Care Gaps due: N/A Patient Contacted: Unable or unnecessary to reach patient: Left message [employer] message sent Navigation Signature: Robyn Howe MA August 18, 2024 10:44 AM Allergies As of Date: 08/18/2024 Noted Allergy Reaction CHEESE (SEE VEGETABLE GUM) 01/29/2005 Comments: cluster headaches MILK CONTAINING PRODUCTS (DAIRY) 12/31/2023 5 - Intolerance MOLD 01/29/2005 Comments: cluster headaches PENICILLIN G 01/29/2005 Comments: cluster h/a POLLEN 01/29/2005 Comments: cluster headaches VINEGAR 01/29/2005 Comments: cluster headaches Date Reviewed: 08/04/2024 Reviewed by: Snow Brooks APRN.TOOL SUPERVISOR - Fully Assessed Reason for Visit: Population Health Navigation Outreach [3910] Cmt: Value [facility] Prescriptions as of 08/18/2024 - SUMAtriptan (IMITREX STATDOSE PEN) 6 mg/0.5 mL pen Inject 0.5 mL subcutaneously as needed (at onset of headache. May repeat after 1 hour.). - levothyroxine (SYNTHROID) 100 mcg tablet Take 1 tablet by mouth once daily. - finasteride (PROSCAR) 5 mg tablet take 1 tablet by mouth once daily. - tamsulosin (FLOMAX) 0.4 mg Take 2 capsules by mouth once daily. - verapamil 80 mg tablet Take one(1) tablet two(2) times daily. - therapeutic multivitamin ORAL tablet Take by mouth once daily. - MELATONIN 3 MG TAB Take 3 mg by mouth daily at bedtime. - docusate sodium(LOPEZ LIQUI-GELS 100 MG CAP) Take by mouth once daily. 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 [facility] Follow up visit August 04, 2024 Chief Complaint: Cluster headache Impression and Plan last visit: 01/30/2024 with me Elsa Palacio is a 83 year old year old male, with a history of cluster headaches who returns in follow up. He is a former patient of Dr. Pierce's going back to 1999. Over the last few years he has been able to stop Depakote with no recurrence. When he tries to reduce the dose of Verapamil he will have start to have the a sensation left occipital region which is his prodrome and will treat with Sumatriptan SQ. Rarely treats. . PLAN: Continue Verapamil and Sumatriptan Interval Headache History: . He reduced the dose of Verapamil from 80mg bid to 80mg once a day 3 weeks ago with no worsening of headaches. No particular time of year for cluster episodes. They used to occur with schedule changes. In the past when he would vary his routine he would get more headaches. Over the last year he had been waking in the middle of the night - and not able to fall asleep - this has not caused an exacerbation of clusters When he used to feel the cluster coming on he would treat with sumatriptan immediately Rarely having hypnic - headaches that wake him in the middle of the night - no longer taking caffeine before bed. Headache 1 Location: cluster starts base of the skull on the left and settle behind the left eye ptosis and severe photophobia Number of migraine headache days/month: 0 Number of headache free days/month: 30 Relieving factors: sumatriptan injection; coffee or ice tea Headache status since the last visit: same Preventative: Verapamil 80 mg Abortive: sumatriptan SQ has not used it in years Prior Therapies Duration of Use Dose Reason for Discontinuation Anti-Convulsant Divalproex sodium (Depakote) Anti-Depressant and Antipsychotic Olanzapine (Zyprexa, Zydis) Anti-Migraine Dihydroergotamine (DHE-45, Migranal) Sumatriptan (Imitrex, Sumavel) Zolmitriptan (Zomig) Blood Pressure Verapamil (Verelan, Calan, Isoptin) Current Outpatient Medications Medication Sig SUMAtriptan (IMITREX STATDOSE PEN) 6 mg/0.5 mL pen Inject 0.5 mL subcutaneously as needed (at onset of headache. May repeat after 1 hour.). levothyroxine (SYNTHROID) 100 mcg tablet Take 1 tablet by mouth once daily. finasteride (PROSCAR) 5 mg tablet take 1 tablet by mouth once daily. tamsulosin (FLOMAX) 0.4 mg Take 2 capsules by mouth once daily. verapamil 80 mg tablet Take one(1) tablet two(2) times daily. therapeutic multivitamin ORAL tablet Take by mouth once daily. MELATONIN 3 MG TAB Take 3 mg by mouth daily at bedtime. docusate sodium([email or web address] LIQUI-GELS 100 MG CAP) Take by mouth once daily. No current facility-administered medications for this visit. 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 No acute intracranial process 2. No suspicious signal abnormality... MRA Head and/or Neck - Last 2 Impressions No resulted procedures found. CT Head/Brain - Last 2 Impressions No resulted procedures found. CTA Head and/or Neck - Last 2 No resulted procedures found. HEADACHE SCORES: 01/14/2023 01/23/2024 07/28/2024 Headache Questions ER visits since last office visit: 0 0 0 Hospital stays since last office visit 0 0 0 Limited ADLs in the last month: 0 0 0 Days missed from work or school in the last month: 0 0 0 Days headache pain free in the last month: 30 30 30 Days per month with ALL of the following symptoms - decreased productivity, light sensitivity and nausea: 0 0 0 Initial improvement of headache after botox injection at last visit: Not applicable, I did not have a botox injection at my last visit Not applicable, I did not have a botox injection at my last visit Not applicable, I did not have a botox injection at my last visit PRN medication usage in the last month: 0 Patient impression of improvement since last visit: Much improved No change Very much improved 01/14/2023 01/23/2024 07/28/2024 HIT-6 HIT-6 40 (Little or no impact) 42 (Little or no impact) 50 (Moderate impact) 01/23/2024 01/24/2024 07/28/2024 TATIANA - 2/7 SCORES TATIANA-2 Score 0 0 0 TATIANA-7 Score 0 01/14/2023 01/23/2024 07/28/2024 Migraine Specific QOL - Higher scores indicate better HRQL Role Function-Restrictive Transformed Score (range: 0-100) 100 100 100 Role Function-Preventive Transformed Score (range: 0-100) 100 100 100 Emotional Function Transformed Score (range: 0-100) 100 100 100 01/23/2024 01/24/2024 07/28/2024 PHQ-9 Score 1 1 1 Review of Systems: Review of system: unchanged from the previous visit (sleep patterns, mood, energy, appetite, stress, exercising). Sleep: can fall asleep, but wakes around 4 am and cannot go back to sleep Mood: normal and good Energy: Normal - stable Appetite: normal Weight stable Stress: Low Exercising: Yes, walks 2 miles nearly every morning Vital Signs: BP 147/77 (BP Site: Left Arm, BP Position: Sitting, BP Cuff Size: Large Adult) Pulse (!) 55 Resp 20 Ht 176.2 cm (5' 9.37) Wt 80.5 kg (177 lb 7.5 oz) BMI 25.93 kg/m GENERAL: well appearing, in no acute distress, alert SKIN: Color, texture, turgor normal. No rashes or lesions HEAD: Normocephalic/atraumatic. RESP: normal respiratory effort MSK: No gross joint deformities. NEUROLOGICAL: Mental Status: Alert, oriented to person, place and time, Follows commands, and Speech fluent and appropriate. Cranial Nerves: PERRL, face symmetric, no dysarthria, hearing grossly intact Motor: moves all extremities equally Gait: normal-based. IMPRESSION: Elsa Palacoi is a 84 year old year old male, with a history of cluster headaches who returns in follow up. He is a former patient of Dr. Pierce's going back to 1999. His last full blown cluster episode was 2011. Over the last few years he has been able to stop Depakote with no recurrence. Tapering off Verapamil he would feel the sensation in his occiput where the headache would start and treat immediately with Sumatriptan. He recently reduced the dose of Verapamil to one a day with no recurrence and would like to stop it completely. He will monitor his blood pressure, if it starts to creep he will restart it PLAN: Stop Verapamil and monitor blood pressure HEADACHE MANAGEMENT: (You are the primary guardian of your health and headache. Keep track of all medications: This includes the reason for use, side effects and benefits.) MEDICATION TREATMENT: Medications to Start Taking None Follow-up: 6 months, PRN . Level of service: Est level 3 (20-29 min). Time spent 25 min on the day of service, which included preparing to see the patient, [id number] patient care, completing clinical documentation, obtaining and/or reviewing separately obtained history, performing a medically appropriate examination, and counseling and educating the patient/family/caregiver. Snow Brooks APRN.RUTHIE Headache Section [facility] documented in this encounter [facility] 08-04-2024 Note HNO ID: [id number] Author: SNOW BROOKS APRN.CNP Service: ? Author Type: Nurse Practitioner Type: Progress Notes Filed: 08/04/2024 10:06 Note Text: [facility] Follow up visit August 04, 2024 Chief Complaint: Cluster headache Impression and Plan last visit: 01/30/2024 with me Elsa Palacio is a 83 year old year old male, with a history of cluster headaches who returns in follow up. He is a former patient of Dr. Pierce'jl going back to 1999. Over the last few years he has been able to stop Depakote with no recurrence. When he tries to reduce the dose of Verapamil he will have start to have the a sensation left occipital region which is his prodrome and will treat with Sumatriptan SQ. Rarely treats. . PLAN: Continue Verapamil and Sumatriptan Interval Headache History: . He reduced the dose of Verapamil from 80mg bid to 80mg once a day 3 weeks ago with no worsening of headaches. No particular time of year for cluster episodes. They used to occur with schedule changes. In the past when he would vary his routine he would get more headaches. Over the last year he had been waking in the middle of the night - and not able to fall asleep - this has not caused an exacerbation of clusters When he used to feel the cluster coming on he would treat with sumatriptan immediately Rarely having hypnic - headaches that wake him in the middle of the night - no longer taking caffeine before bed. Headache 1 Location: cluster starts base of the skull on the left and settle behind the left eye ptosis and severe photophobia Number of migraine headache days/month: 0 Number of headache free days/month: 30 Relieving factors: sumatriptan injection; coffee or ice tea Headache status since the last visit: same Preventative: Verapamil 80 mg Abortive: sumatriptan SQ has not used it in years Prior Therapies Duration of Use Dose Reason for Discontinuation Anti-Convulsant Divalproex sodium (Depakote) Anti-Depressant and Antipsychotic Olanzapine (Zyprexa, Zydis) Anti-Migraine Dihydroergotamine (DHE-45, Migranal) Sumatriptan (Imitrex, Sumavel) Zolmitriptan (Zomig) Blood Pressure Verapamil (Verelan, Calan, Isoptin) Current Outpatient Medications Medication Sig SUMAtriptan (IMITREX STATDOSE PEN) 6 mg/0.5 mL pen Inject 0.5 mL subcutaneously as needed (at onset of headache. May repeat after 1 hour.). levothyroxine (SYNTHROID) 100 mcg tablet Take 1 tablet by mouth once daily. finasteride (PROSCAR) 5 mg tablet take 1 tablet by mouth once daily. tamsulosin (FLOMAX) 0.4 mg Take 2 capsules by mouth once daily. verapamil 80 mg tablet Take one(1) tablet two(2) times daily. therapeutic multivitamin ORAL tablet Take by mouth once daily. MELATONIN 3 MG TAB Take 3 mg by mouth daily at bedtime. docusate sodium(LOPEZ LIQUI-GELS 100 MG CAP) Take by mouth once daily. No current facility-administered medications for this visit. 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 No acute intracranial process 2. No suspicious signal abnormality... MRA Head and/or Neck - Last 2 Impressions No resulted procedures found. CT Head/Brain - Last 2 Impressions No resulted procedures found. CTA Head and/or Neck - Last 2 No resulted procedures found. HEADACHE SCORES: 01/14/2023 01/23/2024 07/28/2024 Headache Questions ER visits since last office visit: 0 0 0 Hospital stays since last office visit 0 0 0 Limited ADLs in the last month: 0 0 0 Days missed from work or school in the last month: 0 0 0 Days headache pain free in the last month: 30 30 30 Days per month with ALL of the following symptoms - decreased productivity, light sensitivity and nausea: 0 0 0 Initial improvement of headache after botox injection at last visit: Not applicable, I did not have a botox injection at my last visit Not applicable, I did not have a botox injection at my last visit Not applicable, I did not have a botox injection at my last visit PRN medication usage in the last month: 0 Patient impression of improvement since last visit: Much improved No change Very much improved 01/14/2023 01/23/2024 07/28/2024 HIT-6 HIT-6 40 (Little or no impact) 4 (more content not included)... [facility] 01-30-2024 History of Presen t illness Narrative [facility] Follow up visit January 30, 2024 Chief Complaint: headaches Impression and Plan last visit: 01/21/2023 with me Episodic cluster headache, not intractable (primary encounter diagnosis) Elsa Palacio is a 82 year old year old male, with a history of of episodic cluster headache and probable hypnic headache returns in follow up. His last full blown cluster episode was 2011. He was able to taper off Depakote with no exacerbation of clusters. Continues on Verapamil 160mg at night. Blood pressure elevated, he will address with his PCP tomorrow PLAN: The current medical regimen is effective; continue present plan and medications. EKG Interval Headache History: Tapered off Depakote with no recurrence of headaches. He tried to reduce Verapamil to 1 tablet - he will get a cluster in 24 -48 hours He will have a feeling in the mid occipital region and it may move to the left side - Sumatriptan sq and it stops it in its tracks It has been years since he has had a full blown migraine 3-4 the last year the sensation coming on and intercept with sumatriptan Headache 1 Location: cluster starts base of the skull on the left and settle behind the left eye ptosis and severe photophobia Number of headache free days/month: 30 Current preventive treatment: verapamil 160mg at night Relieving factors: sumatriptan injection; coffee or ice tea Days missed from work or school in the last month: 0 days : Preventative: Verapamil 160mg Abortive: Sumatriptan SQ Medications effective? no Prior Therapies Duration of Use Dose Reason for Discontinuation Anti-Convulsant Divalproex sodium (Depakote) Anti-Depressant and Antipsychotic Olanzapine (Zyprexa, Zydis) Anti-Migraine Dihydroergotamine (DHE-45, Migranal) Sumatriptan (Imitrex, Sumavel) Zolmitriptan (Zomig) Blood Pressure Verapamil (Verelan, Calan, Isoptin) Current Outpatient Medications Medication Sig levothyroxine (SYNTHROID) 100 mcg tablet Take 1 tablet by mouth once daily. finasteride (PROSCAR) 5 mg tablet take 1 tablet by mouth once daily. tamsulosin (FLOMAX) 0.4 mg Take 2 capsules by mouth once daily. verapamil 80 mg tablet Take one(1) tablet two(2) times daily. SUMAtriptan (IMITREX STATDOSE PEN) 6 mg/0.5 mL pen Inject 0.5 mL subcutaneously as needed (at onset of headache. May repeat after 1 hour.). therapeutic multivitamin ORAL tablet Take by mouth once daily. MELATONIN 3 MG TAB Take 3 mg by mouth daily at bedtime. docusate sodium(LOPEZ LIQUI-GELS 100 MG CAP) Take by mouth once daily. No current facility-administered medications for this visit. 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 Dr Jameson Diverticulosis of colon (without mention of hemorrhage) Dupuytren's contracture of both hands ED (erectile dysfunction) Hypothyroidism Migraine with aura, without mention of intractable migraine without mention of status migrainosus Cluster RAE, Dr Pierce ALLERGIES Allergen Reactions Cheese (See Vegetab* cluster headaches Milk Containing Pro* Intolerance Mold cluster headaches Penicillin G cluster h/a Pollen cluster headaches Vinegar cluster headaches HEADACHE SCORES: 02/11/2022 01/14/2023 01/23/2024 Headache Questions ER visits since last office visit: 0 0 0 Hospital stays since last office visit 0 0 0 Limited ADLs in the last month: 0 0 0 Days missed from work or school in the last month: 0 0 0 Days headache pain free in the last month: 30 30 30 Days per month with ALL of the following symptoms - decreased productivity, light sensitivity and nausea: 0 0 0 Initial improvement of headache after botox injection at last visit: Not applicable, I did not have a botox injection at my last visit Not applicable, I did not have a botox injection at my last visit Not applicable, I did not have a botox injection at my last visit PRN medication usage in the last month: 0 0 Patient impression of improvement since last visit: Very much improved Much improved No change 02/11/2022 01/14/2023 01/23/2024 HIT-6 HIT-6 44 (Little or no impact) 40 (Little or no impact) 42 (Little or no impact) 01/18/2024 01/23/2024 01/24/2024 TATIANA - 2/7 SCORES TATIANA-2 Score 0 0 0 TATIANA-7 Score 0 0 02/11/2022 01/14/2023 01/23/2024 Migraine Specific QOL - Higher scores indicate better HRQL Role Function-Restrictive Transformed Score (range: 0-100) 100 100 100 Role Function-Preventive Transformed Score (range: 0-100) 100 100 100 Emotional Function Transformed Score (range: 0-100) 100 100 100 01/18/2024 01/23/2024 01/24/2024 PHQ-9 Score 0 1 1 Review of Systems: Review of system: unchanged from the previous visit (sleep patterns, mood, energy, appetite, stress, exercising). PHYSICAL EXAMINATION: VS: BP 155/73 Pulse 63 Wt 79 kg (174 lb 2.6 oz) SpO2 97% BMI 25.45 kg/m General: well appearing, in no acute distress, well-hydrated, well nourished, alert, no pain behaviors observed, HEENT: Normocephalic/atraumatic., No carotid bruits ascultated., CV: RRR, Musculoskeletal: No gross joint deformities. Neurological: Normal mental status. Normal gait. IMPRESSION: Elsa Palacio is a 83 year old year old male, with a history of cluster headaches who returns in follow up. He is a former patient of Dr. Pierce's going back to 1999. Over the last few years he has been able to stop Depakote with no recurrence. When he tries to reduce the dose of Verapamil he will have start to have the a sensation left occipital region which is his prodrome and will treat with Sumatriptan SQ. Rarely treats. . PLAN: Continue Verapamil and Sumatriptan HEADACHE MANAGEMENT: (You are the primary guardian of your health and headache. Keep track of all medications: This includes the reason for use, side effects and benefits.) MEDICATION TREATMENT: Medications to Start Taking SUMAtriptan (IMITREX STATDOSE PEN) 6 mg/0.5 mL pen Inject 0.5 mL subcutaneously as needed (at onset of headache. May repeat after 1 hour.). Headache education was done. Discussed lifestyle modification including increased oral hydration, decreased caffeine, exercise and stress management. Discussed treatment options including preventive and acute medications, natural supplements, and infusion therapy. Discussed medication overuse headache and to limit use of acute treatments to no more than 2 days/week or 10 days/month. Discussed medication side effects, adverse reactions and drug interactions. Written educational materials and patient instructions outlining all of the above were given. RESEARCH: None at this time Follow-up: 1 year, PRN . Level of service: Est level 3 (20-29 min). Time spent 20 min on the day of service, which included preparing to see the patient, [id number] patient care, completing clinical documentation, obtaining and/or reviewing separately obtained history, performing a medically appropriate examination, and ordering medications, tests, or procedures. Snow Brooks APRN.RUTHIE Headache Section [facility] documented in this encounter [facility] 01-24-2024 Instructions Zeeshan Mahmood APRN.RUTHIE - 01/24/2024 10:33 AM EDT Screening schedule The following prevention plan is recommended: RSV Vaccine(1 - 1-dose 75+ series) Never done Influenza Vaccine(1) due on 12/22/2023 Covid-19 Vaccine(2023- season) due on 12/22/2023 WHAT YOU CAN DO TO PREVENT FALLS Many falls can be prevented. By making some changes, you can lower your chances of falling. Four things YOU can do to prevent falls for you* and your caregiver 1. Begin a regular exercise program Exercise is one of the most important ways to lower your chances of falling. It makes you stronger and helps you feel better. Exercises that improve balance and coordination (like Kirk Chi) are the most helpful. Lack of exercise leads to weakness and increases your chances of falling. Ask your doctor or health care provider about the best type of exercise program for you. 2. Have your health care provider review your medicines Have your doctor or pharmacist review all the medicines you take, even [id number] medicines. As you get older, the way medicines work in your body can change. Some medicines, or combinations of medicines, can make you sleepy or dizzy and can cause you to fall. 3. Have your vision checked Have your eyes checked by an eye doctor at least once a year. You may be wearing the wrong glasses or have a condition like glaucoma or cataracts that limits your vision. Poor vision can increase your chances of falling. 4. Make your home safer About half of all falls happen at home. To make your home safer: Remove things you can trip over (like papers, books, clothes, and shoes) from stairs and places where you walk. Remove small throw rugs or use double-sided tape to keep the rugs from slipping. Keep items you use often in cabinets you can reach easily without using a step stool. Have grab bars put in next to your toilet and in the tub or shower. Use non-slip mats in the bathtub and on shower floors. Improve the lighting in your home. As you get older, you need brighter lights to see well. Hang light-weight curtains or shades to reduce glare. Have handrails and lights put in on all staircases. Wear shoes both inside and outside the house. Avoid going barefoot or wearing slippers. For more information, contact: Centers for Disease Control and Prevention www.cdc.gov/injury * This information may not apply if you have certain medical conditions. documented in this encounter [facility] 01-24-2024 History of Presen t illness Narrative Images from the original note were not included. Elsa Palacio is a 83 year old male here for a Medicare wellness visit. Medicare Health Risk Assessment General Health Very good Exercise: Minutes/Day 40 min Exercise: Days/Week 6 days Alcohol: Daily Use Never Alcohol: Drinks/Day Patient does not drink Alcohol: 6 or more drinks Never Feel off balance No Concerns: Teeth/Dentures No Concerns: Sexual function No Troubled by feelings None of the above Frequency: Eating healthy diet Nearly every day ADLs requiring help None of the above Safety precautions in home/vehicle No Smoke, vape, chews tobacco No Difficulty hearing Yes Difficulty seeing No Current Providers Specialists: I have reviewed specialist-related care of the patient in the medical record. Medical/Family history review Reviewed and updated problem list, medical/surgical/family/social history, medications, and allergies. Opioid use review Opioid Medications (last 90 days) No data to display Anxiety/Depression screening PHQ-9 Score: 1 (Minimal Depression) TATIANA-7 Score: 0. Recommendation: no further intervention at this time Cognitive screening Mini Cog Score: 3 Cognitive screening reviewed and No further action needed (score 3-5). Functional Observation Was the patient's Timed Up & Go test unsteady or >= 12 seconds? No Advance Care Planning Surrogate decision maker and/or advance care plan documented Measurements BP 138/82 Pulse 63 Resp 16 Wt 78.7 kg (173 lb 8 oz) SpO2 98% BMI 25.35 kg/m Vision Screening: Follows with optometry/ophthalmology Latest Ref Rng 01/20/2024 WBC 3.70 - 11.00 k/uL 8.10 RBC 4.20 - 6.00 m/uL 4.54 Hemoglobin 13.0 - 17.0 g/dL 14.1 Hematocrit 39.0 - 51.0 % 41.8 MCV 80.0 - 100.0 fL 92.1 MCH 26.0 - 34.0 pg 31.1 MCHC 30.5 - 36.0 g/dL 33.7 RDW-CV 11.5 - 15.0 % 12.2 Platelet Count 150 - 400 k/uL 207 MPV 9.0 - 12.7 fL 10.2 Neut% % 63.3 Abs Neut (ANC) 1.45 - 7.50 k/uL 5.13 Lymph% % 23.7 Abs Lymph 1.00 - 4.00 k/uL 1.92 Coal% % 6.8 Abs Coal <0.87 k/uL 0.55 Eosin% % 4.8 Abs Eosin <0.46 k/uL 0.39 Baso% % 1.0 Abs Baso <0.11 k/uL 0.08 Immature Gran % % 0.4 IMMATURE GRANS (ABS) <0.10 k/uL 0.03 NRBC /100 WBC 0.0 Absolute nRBC <0.01 k/uL <0.01 DTYPE Auto Protein, Total 6.3 - 8.0 g/dL 6.3 Albumin 3.9 - 4.9 g/dL 3.8 (L) Calcium 8.5 - 10.2 mg/dL 9.2 Bilirubin, Total 0.2 - 1.3 mg/dL 0.3 Alkaline Phosphatase 38 - 113 U/L 86 AST 14 - 40 U/L 16 ALT 10 - 54 U/L 14 Glucose 74 - 99 mg/dL 107 (H) BUN 9 - 24 mg/dL 21 Creatinine 0.73 - 1.22 mg/dL 1.15 Sodium 136 - 144 mmol/L 138 Potassium 3.7 - 5.1 mmol/L 4.0 Chloride 98 - 107 mmol/L 103 CO2 22 - 30 mmol/L 26 Anion Gap 8 - 15 mmol/L 9 eGFR >=60 mL/min/1.73m 63 Cholesterol, Total <200 mg/dL 183 Triglyceride <150 mg/dL 97 HDL Cholesterol >39 mg/dL 48 Non HDL Cholesterol <130 mg/dL 135 (H) Fasting Time hrs 10 VLDL Cholesterol <30 mg/dL 19 TC:HDL Ratio <5.10 3.81 LDL Cholesterol <100 mg/dL 116 (H) LDL:HDL Ratio <2.54 2.42 TSH 0.270 - 4.200 mIU/L 0.521 Assessment/Plan Medicare annual wellness visit, subsequent () - Counseled on healthy diet and regular exercise - Fall avoidance information provided - Personalized prevention plan provided Zeeshan Mahmood APRN.TOOL SUPERVISOR Additional Concerns The following concerns were also discussed with the patient: Following up on the above blood work. HYPOTHYROID: Patient is compliant with medications: Yes Patient has changes in energy: Yes Patient has changes in hair or skin: No Patient has temperature intolerance: No Patient has weight changes: No Has sumatriptan for migraines if needing. Also taking prescribed verapamil. Following with neurology. Following with urology for BPH. Recent visit. PHYSICAL EXAM BP 138/82 Pulse 63 Resp 16 Wt 78.7 kg (173 lb 8 oz) SpO2 98% BMI 25.35 kg/m GENERAL: well appearing, alert, in no acute distress CARDIOVASCULAR: regular rate and rhythm. No murmur, rubs or gallops. PULMONARY: clear to auscultation, no wheezing, rhonchi, or crackles ABDOMEN: soft, non-tender, non-distended, no masses or organomegaly EXTREMITY: no lower extremity edema. No skin discoloration. ASSESSMENT/PLAN: 1. Medicare annual wellness visit, subsequent - ICD9: V70.0, ICD10: Z00.00 (primary diagnosis) - Counseled on healthy diet and regular exercise - Patient counseled on and acknowledged vaccine benefits/risks/side effects; VIS provided: COVID-19 and Influenza - Follow up for annual exam in one year 2. Acquired hypothyroidism - ICD9: 244.9, ICD10: E03.9 - Instructed patient on importance of taking on an empty stomach either first thing in the morning or at bedtime. 3. Episodic cluster headache, not intractable - ICD9: 339.01, ICD10: G44.019 - continue follow with neurology. 4. Encounter for immunization - ICD9: V03.89, ICD10: Z23 - INFLUENZA VACCINE, PRSV FREE, AGE 65+ YR, HIGH DOSE, TRIVALENT (FLUZONE HIGH-DOSE) - [employer] COVID-19 VACCINE AGE 12+ YR (COMIRNATY) Zeeshan Mahmood APRN.TOOL SUPERVISOR RTO in 12 months. documented in this encounter [facility] 01-21-2024 History of Presen t illness Narrative Patient presents for EKG per Snow Brooks CNP. Denies any problems at this time. Tolerated procedure well. Meera Parker LPN documented in this encounter [facility] 01-09-2024 Telephone encounter Note KD 12/31/23 Pt. Requesting another pharmacy Patient phones requesting refills as follows: Requested Prescriptions Pending Prescriptions Disp Refills finasteride (PROSCAR) 5 mg tablet [Pharmacy Med Name: finasteride 5 mg tablet] 90 tablet 3 Sig: take 1 tablet by mouth once daily. Please review and advise. Shawn Diaz RN [facility] 01-09-2024 Miscellaneous Notes KD 12/31/23 Pt. Requesting another pharmacy Patient phones requesting refills as follows: Requested Prescriptions Pending Prescriptions Disp Refills finasteride (PROSCAR) 5 mg tablet [Pharmacy Med Name: finasteride 5 mg tablet] 90 tablet 3 Sig: take 1 tablet by mouth once daily. Please review and advise. Shawn Diaz, RN documented in this encounter [facility] 01-03-2024 Telephone encounter Note Patient returned call and given provider's message below and patient verbalized understanding. Thao Gould RN [facility] 01-03-2024 Miscellaneous Notes Patient returned call and given provider's message below and patient verbalized understanding. Thao Gould RN Message left for pt to call back. Jessica Bates MA I placed labs. The EKG was ordered by neurology. He would need an appointment with a nurse to get it completed. Zeeshan Mahmood APRN.RUTHIE Pt called wondering if there are any labs necessary prior to his 01/24/24 appt. Please let him know. He needs and EKG also and would like to schedule lab and EKG same day unless EKG can be done at appointment with Zeeshan. documented in this encounter [facility] 01-02-2024 Telephone encounter Note Message left for pt to call back. Jessica Bates MA [facility] 01-01-2024 Telephone encounter Note I placed labs. The EKG was ordered by neurology. He would need an appointment with a nurse to get it completed. Zeeshan Mahmood APRN.TOOL SUPERVISOR [facility] 01-01-2024 Telephone encounter Note Pt called wondering if there are any labs necessary prior to his 01/24/24 appt. Please let him know. He needs and EKG also and would like to schedule lab and EKG same day unless EKG can be done at appointment with Zeeshan. [facility] Work Phone: 12-31-2023 Instructions Shaq Bishop PA-C - 12/31/2023 4:01 PM EDT .> 1 year Appt w/ B. MARTHA Bishop, INGRIS KIM for refills documented in this encounter [facility] 12-31-2023 History of Presen t illness Narrative Images from the original note were not included. [facility] EST PATIENT CLINIC NOTE SERVICE DATE: December 31, 2023 NAME: Elsa Palacio CHIEF COMPLAINT: BPH HISTORY OF PRESENT ILLNESS: Elsa Palacio is a 83 year old male an established patient following up for BPH The patient reports he is doing very well on Flomax and Proscar Rx's renewed today PVR 15 ml LUTS: None LABS: PSA (ng/mL) Date Value 12/29/2014 0.70 12/29/2013 0.78 Testosterone (ng/dL) Date Value 06/28/2004 328 Hematocrit (%) Date Value 01/15/2023 43.4 01/09/2022 45.0 01/13/2019 45.5 04/18/2015 44.8 03/08/2014 45.1 PSA (ng/mL) Date Value 12/29/2014 0.70 12/29/2013 0.78 Creatinine Date Value Ref Range Status 01/15/2023 1.17 0.73 - 1.22 mg/dL Final 01/09/2022 1.17 0.73 - 1.22 mg/dL Final 02/27/2021 1.12 0.73 - 1.22 mg/dL Final MEDICATIONS: verapamil 80 mg tablet Take one(1) tablet two(2) times daily. levothyroxine (SYNTHROID) 100 mcg tablet Take 1 tablet by mouth once daily. SUMAtriptan (IMITREX STATDOSE PEN) 6 mg/0.5 mL pen Inject 0.5 mL subcutaneously as needed (at onset of headache. May repeat after 1 hour.). therapeutic multivitamin ORAL tablet Take by mouth once daily. MELATONIN 3 MG TAB Take 3 mg by mouth daily at bedtime. docusate sodium(LOPEZ LIQUI-GELS 100 MG CAP) Take by mouth once daily. finasteride (PROSCAR) 5 mg tablet Take 1 tablet by mouth once daily. tamsulosin (FLOMAX) 0.4 mg Take 2 capsules by mouth once daily. traZODone (DESYREL) 50 mg tablet Take 1 tablet by mouth daily at bedtime. (Patient not taking: Reported on 12/31/2023) PAST MEDICAL HISTORY: PAST MEDICAL HISTORY No date: Allergic rhinitis due to other allergen No date: Benign neoplasm of colon No date: BPH w urinary obs/LUTS Comment: Dr Jameson No date: Diverticulosis of colon (without mention of hemorrhage) No date: Dupuytren's contracture of both hands No date: ED (erectile dysfunction) No date: Hypothyroidism No date: Migraine with aura, without mention of intractable migraine without mention of status migrainosus Comment: Dr Kari Aguilar REVIEW OF SYSTEMS: GENERAL: No fever, chills, weight loss, or fatigue. PHYSICAL EXAMINATION: Blood pressure 118/80, pulse 70, temperature 36.4 C (97.5 F), temperature source Temporal, resp. rate 16, height 176.2 cm (5' 9.37), weight 78.9 kg (174 lb), SpO2 97%. GENERAL: WNL nutrition, no deformities, healthy appearing PROBLEM LIST REVIEW: Yes LABS: Results for orders placed or performed in visit on 12/31/23 UA DIP, URINE (POC) Result Value Ref Range GLUCOSE UA (POCT) Negative Negative mg/dL BILIRUBIN UA (POCT) Negative Negative KETONE UA (POCT) Negative Negative mg/dL SPECIFIC GRAVITY UA (POCT) 1.025 1.005 - 1.030 HEMOGLOBIN/BLOOD UA (POCT) Negative Negative PH UA (POCT) 5.5 4.5 - 8.0 PROTEIN UA (POCT) Negative Negative mg/dL UROBILINOGEN UA (POCT) 0.2 Normal E.U./dL NITRITE UA (POCT) Negative Negative LEUKOCYTES UA (POCT) Negative Negative COLOR UA (POCT) Dark yellow CLARITY UA (POCT) Clear PROCEDURES: PVR: 15 ml ASSESSMENT/PLAN: 1. BPH without obstruction/lower urinary tract symptoms - ICD9: 600.00, ICD10: N40.0 - POST VOID RESIDUAL -15 ml > Refilled Proscar and Flomax Chronic stable, well controlled Medication - Renewed > 1 year Appt w/ B. MARTHA Bishop MT, PA-C for annual follow-up and refills. MARTHA Martinez MT, PA-C Verified name and date of . CC Post Void Residual HPI: Elsa Palacio is a 83 year old male. The patient is here now for an appointment with MARTHA Martinez MT, PA-COV. Procedure: Explained procedure to patient and verbalizes understanding. Performed a PVR. Patient urinated and instructed to empty bladder as much as possible just prior to having PVR done using bladder ultrasound scanner. Results of scan: 15 mL The patient tolerated the procedure well. Plan: Appointment with Shaq. documented in this encounter [facility] 12-09-2023 Telephone encounter Note He has tapered off Depakote, no labs Continues on Verapamil - order for EKG placed. Snow Brooks APRN.RUTHIE [facility] 12-09-2023 Miscellaneous Notes He has tapered off Depakote, no labs Continues on Verapamil - order for EKG placed. Snow Brooks APRN.CNP Call received for Snow Brooks APRN.CNP regarding Elsa Mendozajana 1940. Caller: Self Patient Identified by Name and : Yes Was permission obtained from patient ? Yes Reason for Call: Other: James has called in regards to scheduling a follow up appointment in January with you. And is asking if you can put in Lab orders for him to get done patient is unsure the labs he has gotten in the past, Last Office Visit: 01/21/23 with Cecilia Next scheduled appointment: 01/30/24 with Cecilia Best number to reach caller: [phone] (home) Best time to reach caller: ANY Is it OK to leave a detailed voice message? Yes Sandie Gonzalez documented in this encounter [facility] 12-06-2023 Telephone encounter Note Call received for Snow Brooks APRN.CNP regarding Elsa Mendozaa 1940. Caller: Self Patient Identified by Name and : Yes Was permission obtained from patient ? Yes Reason for Call: Other: James has called in regards to scheduling a follow up appointment in January with you. And is asking if you can put in Lab orders for him to get done patient is unsure the labs he has gotten in the past, Last Office Visit: 01/21/23 with Cecilia Next scheduled appointment: 01/30/24 with Cecilia Best number to reach caller: [phone] (home) Best time to reach caller: ANY Is it OK to leave a detailed voice message? Yes Sandie Gonzalez [facility] 09-02-2023 Telephone encounter Note Physician: Cecilia Call from patient requesting refill. Please E-Scribe Last OV: 01/21/2023 with Cecilia Future OV: Not Scheduled. Requested Prescriptions Pending Prescriptions Disp Refills verapamil 80 mg tablet 180 tablet 3 Sig: Take one(1) tablet two(2) times daily. Pharmacy Name: [facility] 09-02-2023 Miscellaneous Notes Physician: Cecilia Call from patient requesting refill. Please E-Scribe Last OV: 01/21/2023 with Cecilia Future OV: Not Scheduled. Requested Prescriptions Pending Prescriptions Disp Refills verapamil 80 mg tablet 180 tablet 3 Sig: Take one(1) tablet two(2) times daily. Pharmacy Name: [facility] documented in this encounter [facility] 07-14-2023 Discharge summary Note Date/Time July 14, 2023 8:53am [facility] Medical Records Department [address] [place] [address] Emergency Department Summary 07/14/23 MR#: [id number] Acct: [id number] Name: ELSA PALACIO KEVIN Rep #:[id number] : 1940 83 From: Salomon Marquez MD PCP: Dr. Jeremias Damico MD Status:RE G ER Location: ED HPI History of Present Illness Chief Complaint: Nosebleed Informant: patient Narrative Narrative: Patient with 1-1.5 hours of spontaneous onset left-sided nosebleed, swallowing some blood,, no injury, no recent URI or blowing his nose, started out of nowhere while he was walking from 1 room to the other. No systemic symptoms or lightheadedness/near syncope symptoms of blood loss. Takes no antiplatelet or anticoagulant medications. PFSH PFSH Home Medications levothyroxine 112 mcg tablet 112 mcg PO DAILY 11/04/19 [History Last Taken 07/14/23] tamsulosin 0.4 mg capsule 0.4 mg PO QHS 11/04/19 [History Last Taken 07/14/23] verapamil 80 mg tablet 2 tab PO QHS 11/04/19 [History Last Taken Unknown] Allergy/AdvReac Type Severity Reaction Status Date / Time Penicillins Allergy NEEDS Verified 07/14/23 08:25 FOLLOW-UP fermented products Allergy NEEDS Uncoded 11/04/19 10:09 FOLLOW-UP Social History Smoking Status: Former smoker ROS ROS ED Constitutional Constitutional ED: Denies chills or fever(s) ENT ENT ED: Reports epistaxis; Denies ear pain, facial pain or sore throat Cardiovascular Cardiovascular: Denies chest pain, lightheadedness or palpitations Respiratory/Chest Respiratory/Chest: Denies dyspnea Gastrointestinal Gastrointestinal: Denies nausea or vomiting Integumentary Denies rash Neurologic Neurologic: Denies headache(s), paresthesias or weakness EXAM Physical Exam Const Vital Signs: 07/14/23 08:26 Temperature 96.6 F L Temperature Source Temporal Pulse Rate 73 Respiratory Rate 18 Blood Pressure 159/90 H Blood Pressure Mean 113 Pulse Ox 98 Oxygen Delivery Method Room Air Positive well nourished and well developed General Appearance ED: well developed and NAD HEENT Reports moist mucous membranes HEENT Narrative: Some blood in the posterior oropharynx, no active bleeding. Blood in the left naris, the right side is clear. There appears to be a source at the septum anteriorly left naris. It is not appear to be actively bleeding. Eyes PERRL and EOMs intact bilaterally Chest Wall inspection of chest normal and palpation of chest normal Neuro oriented x3, CN's II-XII intact bilaterally, no sensory deficits noted and gait normal Motor Exam: strength 5/5 throughout Psych mental status grossly normal Skin no rashes or lesions noted and no wounds MDM MDM MDM Narrative Medical decision making narrative: Epistaxis care: Patient was observed for short period time while we waited for pharmacy to send his medications, and when I got them to evaluate him, he statesthe bleeding seems to stop, and he is a breathing air through the left side without difficulty, I removed a small clot when I removed the Kleenex from his nose, but he has no other feelings of residual clotting/clots. Therefore I placed an Afrin-soaked pledget into his left naris, observed him for 20 minutes and then removed it for further inspection. The nidus appears to have no activebleeding at the septum, there are 2 of them; these was then chemically cauterized with silver nitrate, which he tolerated well without difficulty or complication. His vital signs are normal without tachycardia and he has no symptoms of anemia so I do not think we need to check blood counts here he did not lose a lot of blood according to him. Discharge Plan Triage Chief Complaint: Nosebleed ED Provider: Salomon Marquez Dx/Rx/DC Orders Clinical Impression: Acute anterior epistaxis Instructions: ED Epistaxis (Adult) Prescriptions: No Action verapamil 80 MG tablet 2 tab PO QHS tamsulosin 0.4 MG capsule 0.4 mg PO QHS levothyroxine 112 MCG tablet 112 mcg PO DAILY Primary Care Provider: Jeremias Damico Referrals: Jeremias Damico MD [Primary Care Provider] - As Needed Disposition Disposition: Home, Self Care What to do if you have Problems For any increased pain, shortness of breath, bleeding, nausea or vomiting, chestpain, or any unexpected problems, contact your Primary Care Provider. Call [facility] ([phone]) or report to the closest Emergency Room. Call 911 if necessary. 07/14/23 1049 <Electronically signed by Salomon Marquez MD> Cosigner Signature (if applicable): CC: Dr. Jeremias Damico MD ~ Signed [facility] Work Phone: 1(809) 872-125312-06-2023 History of Present illness Narrative* Susan Donis APRN.TOOL SUPERVISOR - 03/27/2023 9:16 AM EST CC: Patient presents with: Cough: X4 days. He did say he had some burning in his lungs when he was outside in the cold air this morning. Says he thinks it was just the cold air. HPI: Elsa Palacio is a 83 year old male who presents to the office with complaint of cough, nonproductive for a few days. Symptoms are staying the same. Associated symptoms includes cough. Denies wheezing, dyspnea, and pleuritic pain. Treatments tried include nothing so far. with no relief of symptoms. Sick contacts: unknown. History of asthma, frequent episodes of bronchitis, chronic bronchitis, bronchiectasis or COPD: No Smoker: No Seasonal/environmental allergies: No The ROS is otherwise negative. The patient's pmh, medications, allergies, and past visits are reviewed. PHYSICAL EXAM: BP 122/76 Pulse 72 Temp 36.2 C (97.2 F) Resp 16 Wt 80.3 kg (177 lb) SpO2 98% BMI 25.40 kg/m General appearance: alert, cooperative, pleasant, in no acute distress Head: Normocephalic Eyes: EOM's intact, conjunctiva pink and moist, no icterus, sclera white, non-injected Ears: Right ear: External ear/canal- Normal, TM - clear with good landmarks. Left ear: External ear/canal- Normal, TM - clear with good landmarks Oropharynx:moist without lesions, No erythema, exudates or tonsillar hypertrophy. Heart: Negative. RRR without obvious murmur, gallop, or rubs. No ectopy. 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 Dr Jameson Diverticulosis of colon (without mention of hemorrhage) Dupuytren's contracture of both hands ED (erectile dysfunction) Hypothyroidism Migraine with aura, without mention of intractable migraine without mention of status migrainosus Cluster RAE, Dr Pierce PAST SURGICAL HISTORY Procedure Laterality Date ARTHROSCOPY KNEE DIAGNOSTIC W/WO SYNOVIAL BX SPX ~1979 Arthroscopy, left knee COLONOSCOPY & POLYPECTOMY 06/18/2001,04/10/00 Colonoscopy COLONOSCOPY FLX DX W/COLLJ SPEC WHEN PFRMD 07/09/07 repeat due 2012 COLONOSCOPY FLX DX W/COLLJ SPEC WHEN PFRMD 05/27/2012 no polyps, repeat due 2017 COLONOSCOPY FLX DX W/COLLJ SPEC WHEN PFRMD 01/20/2018 Colonoscopy COLONOSCOPY W/BIOPSY SINGLE/MULTIPLE 05/10/05 RAD RESECT TUMOR SOFT TISS NECK/ANT THORAX <5CM ~1970 BREAST TUMOR, left RELEASE PALM CONTRACTURE 01/15/2012 Right hand needle aponeurotomy ALLERGIES Cheese (See Vegetable Gum), Dairy Products [Other], Mold, Penicillin G, Pollen, and Vinegar MEDICATIONS traZODone (DESYREL) 50 mg tablet Take 1 tablet by mouth daily at bedtime. levothyroxine (SYNTHROID) 100 mcg tablet Take 1 tablet by mouth once daily. SUMAtriptan (IMITREX STATDOSE PEN) 6 mg/0.5 mL pen Inject 0.5 mL subcutaneously as needed (at onsetof headache. May repeat after 1 hour.). finasteride (PROSCAR) 5 mg tablet Take 1 tablet by mouth once daily. verapamil 80 mg tablet Take one(1) tablet two(2) times daily. tamsulosin (FLOMAX) 0.4 mg Take 2 capsules by mouth once daily. sildenafil (VIAGRA) 100 mg tablet 1 tablet 30 min prior to intercourse, on empty stomach and with sexual stimulation immediately following. therapeutic multivitamin ORAL tablet Take by mouth once daily. MELATONIN 3 MG TAB Take 3 mg by mouth daily at bedtime. docusate sodium(LOPEZ LIQUI-GELS 100 MG CAP) Take by mouth once daily. FAMILY HISTORY Problem Relation Age of Onset other (CHF) Mother OLD AGE Colon Cancer Father age 76 +/- Social History Tobacco Use Smoking status: Former Types: Cigarettes Smokeless tobacco: Never Tobacco comments: for 2 years when patient was 20yrs old Vaping Use Vaping Use: Never used Substance Use Topics Alcohol use: No Drug use: No ASSESSMENT/PLAN: 1. URI, acute - ICD9: 465.9, ICD10: J06.9 - COVID & INFLUENZA A/B & RSV NAAT, ROUTINE Prescription instructions reviewed with patient as applicable. Potential red flag symptoms discussed with the patient. Reviewed appropriate action plan to take if red flag symptoms occur. Patient agreeable to treatment plan. Susan Donis APRN.RUTHIE documented in this encounterLouis [facility] Miscellaneous Notes* Telephone Encounter - Naida Vazquez Ma - 02/18/2023 9:16 AM EDT Placed in first [place] message, closing this encounter. Naida Vazquez Ma documented in this encounterLouis [facility]10-13-2023 History of Present illness Narrative* Zeeshan Mahmood APRN.CNP - 02/01/2023 1:00 PM EDT Chief Complaint Patient presents with: Trouble sleeping: No difficulty falling asleep but cannot stay asleep HPI Elsa Palacio is a 82 year old male who presents here today for Above Complaints. follow up for difficulty sleeping. Patient complains of: difficulty sleeping through the night. Duration: over a year Associated Symptoms: Having difficulty with staying asleep Aggravating factors:nothing Things that improve symptoms :Stating that for many years he has taken Melatonin 9 mg today nightlyfor migraines as directed by his neurologist. He has found that he has no difficulty with falling asleep. He wakes up at 2:30 or 3 and cannot fall asleep. No real stressors. Not really ruminating when he wakes up. Occasionally has to urinate. Will read a book and then doze off. Past medical history, appointments, medications, allergies reviewed. EXAM: BP 134/80 Pulse 70 Resp 16 Wt 79.7 kg (175 lb 12.8 oz) SpO2 98% BMI 25.22 kg/m General Appearance: Well appearing, alert, in no acute distress, well-hydrated, well nourished.. ASSESSMENT/PLAN: 1. Difficulty sleeping - ICD9: 780.50, ICD10: G47.9 - Decrease melatonin to 6 mg night, start trazodone. Can wean off melatonin as needed for grogginess. Mychart me in 2-3 weeks with update. - TRAZODONE 50 MG TABLET Zeeshan Mahmood APRN.TOOL SUPERVISOR This note was partly generated using [employer] voice recognition dictation and may contain some misspelled or inaccurate words missed on review. documented in this encounterLouis Stokes [facility]10-13-2023 Instructions* Patient Instructions* Zeeshan Mahmood APRN.CNP - 02/01/2023 12:58 PM EDT Trial Trazodone 50 mg at night. Can you take with the melatonin. Just take 2 tablets of the melatonin. If you are groggy, trial decreasing melatonin dose. Can work all the way down to no melatonin. Mychart me in 2-3 weeks to update me. Zeeshan Mahmood APRN.RUTHIE documented in this encounterLouis [facility]10-05-2023 History of Present illness Narrative* Meera Parker LPN - 01/24/2023 12:58 PM EDT Patient presents for EKG per Snow Brooks CNP. Denies any problems at this time. Tolerated procedure well. Meera Parker LPN documented in this encounterLouis Stokes [facility]10-03-2023 History of Present illness Narrative* Zeeshan Mahmood APRN.CNP - 01/22/2023 10:20 AM EDT Elsa Palacio is a 82 year old male here for a Medicare wellness visit. Health Risk Assessment In general, health is: Excellent Concerns with balance: Not at all Concerns with teeth or dentures: Not at all Concerns with sexual function: Not at all [place] anxious, stressed, angry, irritable, lonely, isolated, or had thoughts of hurting themself: Not at all Has little interest or pleasure in doing things: Not at all Bothered by feeling down, depressed, or hopeless: Not at all Needs help with grocery shopping, cooking, housework, bathing, grooming, dressing, eating, sitting or standing, walking, using the toilet, handling finances, taking medications, using the telephone, or driving: No Following safety precautions in the home environment and vehicle: removed throw rugs from floors, installed grab bars in the bathroom, handrails in stairwells, having adequate lighting, wearing seatbelt at all times?: Yes Smokes cigarettes, vapes, or chew tobacco: No Eats healthy foods including fruits, vegetables, whole grains, and fiber-rich foods: Nearly every day Number of days per week engages in exercise: 6 days Average alcohol consumption: Never Current Providers Specialists: I have reviewed specialist-related care of the patient in the medical record. Medical/Family history review Reviewed and updated problem list, medical/surgical/family/social history, medications, and allergies. Opioid use review Patient is not currently using opioids. Depression screening Depression Screening PHQ-2 Score PHQ-9 Score TATIANA-2 Total Score 01/14/2023 0 0 0 Depression screening tool completed and reviewed. Based on score and interview, patient is not at risk for depression. Screening tool discussed with patient, and I recommended no further interventionat this time. Cognitive screening Mini Cog Score: Score: 4 Functional Observation Was the patient's timed Up & Go test unsteady or ? 12 seconds? No Advance Care Planning End of Life planning discussed, including patient's advanced directive wishes: Yes Measurements BP 130/78 Pulse 60 Temp (Src) 97.5 (Left Tympanic) Resp 16 Ht 5' 10 (1.78m) Wt 173 lb 12.8 oz (78.8kg) SpO2 99% BMI 24.94 kg/(m^2). Visual acuity (required for Welcome to Medicare): follows with optometry/ophthalmology. Cataract surgery September and October 2022. Hearing Evaluation: hard of hearing, wears hearing aids. Right ear hearing aid with a landscape specialist fromleft ear. Following with audiology. General appearance: healthy, alert, cooperative, pleasant, in no acute distress Heart: normal, regular rate and rhythm, without murmur Lungs: Lungs clear to auscultation, No wheezing, rales or rhonchi Neck: normal, supple, no adenopathy, and thyroid normal size, non-tender, without nodularity Component Latest Ref Rng & Units 01/15/2023 WBC 3.70 - 11.00 k/uL 7.05 RBC 4.20 - 6.00 m/uL 4.68 Hemoglobin 13.0 - 17.0 g/dL 14.6 Hematocrit 39.0 - 51.0 % 43.4 MCV 80.0 - 100.0 fL 92.7 MCH 26.0 - 34.0 pg 31.2 MCHC 30.5 - 36.0 g/dL 33.6 RDW-CV 11.5 - 15.0 % 12.2 Platelet Count 150 - 400 k/uL 199 MPV 9.0 - 12.7 fL 10.6 Neut% % 64.0 Abs Neut (ANC) 1.45 - 7.50 k/uL 4.51 Lymph% % 25.5 Abs Lymph 1.00 - 4.00 k/uL 1.80 Coal% % 6.4 Abs Coal <0.87 k/uL 0.45 Eosin% % 3.1 Abs Eosin <0.46 k/uL 0.22 Baso% % 0.9 Abs Baso <0.11 k/uL 0.06 Immature Gran % % 0.1 IMMATURE GRANS (ABS) <0.10 k/uL <0.03 NRBC /100 WBC 0.0 Absolute nRBC <0.01 k/uL <0.01 DTYPE Auto Protein, Total 6.3 - 8.0 g/dL 6.2 (L) Albumin 3.9 - 4.9 g/dL 4.1 Calcium 8.5 - 10.2 mg/dL 9.5 Bilirubin, Total 0.2 - 1.3 mg/dL 0.4 Alkaline Phosphatase 38 - 113 U/L 82 AST 14 - 40 U/L 16 ALT 10 - 54 U/L 15 Glucose 74 - 99 mg/dL 106 (H) BUN 9 - 24 mg/dL 15 Creatinine 0.73 - 1.22 mg/dL 1.17 Sodium 136 - 144 mmol/L 138 Potassium 3.7 - 5.1 mmol/L 4.6 Chloride 97 - 105 mmol/L 102 CO2 22 - 30 mmol/L 26 Anion Gap 9 - 18 mmol/L 10 eGFR >=60 mL/min/1.73m 62 Cholesterol, Total <200 mg/dL 180 Triglyceride <150 mg/dL 110 HDL Cholesterol >39 mg/dL 47 Non HDL Cholesterol <130 mg/dL 133 (H) Fasting Time hrs 9.5 VLDL Cholesterol <30 mg/dL 22 TC:HDL Ratio <5.10 3.83 LDL Cholesterol <100 mg/dL 111 (H) LDL:HDL Ratio <2.54 2.36 TSH 0.270 - 4.200 mIU/L 0.342 Assessment/Plan Medicare annual wellness visit, subsequent (Z00) - Counseled on healthy diet and regular exercise - Fall avoidance information provided - 10-year prevention plan provided ASSESSMENT/PLAN: 1. Medicare annual wellness visit, subsequent - ICD9: V70.0, ICD10: Z00.00 (primary diagnosis) - Counseled on healthy diet and regular exercise - Follow up for annual exam in one year 2. Encounter for immunization - ICD9: V03.89, ICD10: Z23 - INFLUENZA VACCINE, PRSV FREE, AGE 65+ YR, HIGH DOSE, QUADRIVALENT (FLUZONE HIGH-DOSE) - COVID 19 vaccine 3. Acquired hypothyroidism - ICD9: 244.9, ICD10: E03.9 - Instructed patient on importance of taking on an empty stomach either first thing in the morning or at bedtime. - check TSH in 1 year - continue current dose of Synthroid 0.100 mg - Follow up in 1 year or sooner if having symptoms 4. Episodic cluster headache, not intractable - ICD9: 339.01, ICD10: G44.019 -Following with neurology. Last visit in December. Headache free for > 6 months. Taking verapamil and sumatriptan. 5. BPH with obstruction/lower urinary tract symptoms - ICD9: 600.01, 599.69, ICD10: N40.1, N13.8 -Following with urology yearly. Last visit in April 2022 Discussed treatment plan and patient voices understanding. Patient's questions answered appropriately. Medications and potential side effects were discussed and patient voices understanding. Penny Ignacio APRN Student I have personally seen and examined the patient and performed the medical- decision making components. I have reviewed the Advanced Practice Registered Nurse (THORACIC MEDICINE SPECIALIST) student's documentation and verified the findings in the note as written. Any additions or changes are noted in bold/italics. Zeeshan Mahmood APRN.RUTHIE documented in this encounterLouis [facility]10-02-2023 History of Present illness Narrative* Snow Brooks APRN.RUTHIE - 01/21/2023 1:00 PM EDT Head[facility] Follow up visit January 21, 2023 Chief Complaint: cluster headache Impression and Plan last visit: 02/16/2022 with me Elsa Palacio is a 82 year old year old male, with a history of episodic cluster headache and probable hypnic headache returns in follow up. His last full blown cluster episode was 2011. Over the years he has tried reducing Depakote but with a random headache breaking through. Over the past 2 years he has been able to taper off Depakote with no breakthrough. This year has reduced Verapamil from 240mg a day to 80mg a day. He blood reading as noted above. He is agreeable to staying on this current dose ov Verapamil. . His neurological examination is essentially normal at this visit. EKG yesterday, final read not done PLAN: Continue verapamil Contact the office if you start back in a cycle Interval Headache History: 1. Overnight headaches hypnic from time to time if he does not have tea Glass of ice tea at noon and dinner will prevent it Night time headache - pain in the head holocephalic dull throbbing aching 2. Cluster - last full blown cluster 2011 No breakthrough headaches when tapering off Depakote Over the last year he has been tapering off Verapamil - when he went down to 1 at night he was having a headache once a week - back to 2 a day Headache 1 Location: cluster starts base of the skull on the left and settle behind the left eye ptosis and severe photophobia Number of migraine headache days/month: 0 Number of headache free days/month: 30 Current preventive treatment: verapamil 160mg at night Relieving factors: sumatriptan injection; coffee or ice tea Days missed from work or school in the last month: 0 days Current Outpatient Medications Medication Sig finasteride (PROSCAR) 5 mg tablet Take 1 tablet by mouth once daily. levothyroxine (SYNTHROID) 100 mcg tablet Take 1 tablet by mouth once daily. verapamil 80 mg tablet Take one(1) tablet two(2) times daily. tamsulosin (FLOMAX) 0.4 mg Take 2 capsules by mouth once daily. sildenafil (VIAGRA) 100 mg tablet 1 tablet 30 min prior to intercourse, on empty stomach and with sexual stimulation immediately following. SUMAtriptan (IMITREX STATDOSE PEN) 6 mg/0.5 mL kit Inject 0.5 mL subcutaneously as needed (at onsetof headache. May repeat after 1 hour.). therapeutic multivitamin ORAL tablet Take by mouth once daily. MELATONIN 3 MG TAB Take 3 mg by mouth daily at bedtime. docusate sodium(LOPEZ LIQUI-GELS 100 MG CAP) Take by mouth once daily. No current facility-administered medications for this visit. 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 Dr Jameson Diverticulosis of colon (without mention of hemorrhage) Dupuytren's contracture of both hands ED (erectile dysfunction) Hypothyroidism Migraine with aura, without mention of intractable migraine without mention of status migrainosus Cluster RAE, Dr Pierce ALLERGIES Allergen Reactions Cheese (See Vegetab* cluster headaches Dairy Products [Oth* Other: See Comments headache Mold cluster headaches Penicillin G cluster h/a Pollen cluster headaches Vinegar cluster headaches HEADACHE SCORES: Headache Questions 03/20/2021 02/11/2022 01/14/2023 ER visits since last office visit: 0 0 0 Hospital stays since last office visit 0 0 0 Limited ADLs in the last month: 0 0 0 Days missed from work or school in the last month: 0 0 0 Days headache pain free in the last month: 28 30 30 Days per month with ALL of the following symptoms - decreased productivity, light sensitivity and nausea: 0 0 0 Initial improvement of headache after botox injection at last visit: Not applicable, I did not havea botox injection at my last visit Not applicable, I did not have a botox injection at my last visit Not applicable, I did not have a botox injection at my last visit PRN medication usage in the last month: 2 0 0 Patient impression of improvement since last visit: No change Very much improved Much improved HIT-6 03/20/2021 02/11/2022 01/14/2023 HIT-6 - - - HIT-6 44 (Little or no impact) 44 (Little or no impact) 40 (Little or no impact) TATIANA - 2/7 SCORES 03/20/2021 02/11/2022 01/14/2023 TATIANA-2 Score 0 0 0 Migraine Specific QOL - Higher scores indicate better HRQL 02/13/2020 02/11/2022 01/14/2023 Role Function-Restrictive Transformed Score (range: 0-100) 100 100 100 Role Function-Preventive Transformed Score (range: 0-100) 100 100 100 Emotional Function Transformed Score (range: 0-100) 100 100 100 PHQ-9 03/20/2021 02/11/2022 01/14/2023 Score 1 2 0 Review of Systems: Review of system: unchanged from the previous visit (sleep patterns, mood, energy, appetite, stress, exercising). PHYSICAL EXAMINATION: VS: BP 144/72 (BP Site: Left Arm, BP Position: Sitting, BP Cuff Size: Regular Adult) Pulse 69 Resp 14 Ht 177.8 cm (5' 10) Wt 74.8 kg (165 lb) SpO2 99% BMI 23.68 kg/m General: well appearing, in no acute distress, well-hydrated, well nourished, alert, no pain behaviors observed, HEENT: Normocephalic/atraumatic., Musculoskeletal: No gross joint deformities. Neurological: Normal mental status. Normal gait. IMPRESSION: Episodic cluster headache, not intractable (primary encounter diagnosis) Elsa Palacio is a 82 year old year old male, with a history of of episodic cluster headache and probable hypnic headache returns in follow up. His last full blown cluster episode was 2011. He was able to taper off Depakote with no exacerbation of clusters. Continues on Verapamil 160mg at night. Blood pressure elevated, he will address with his PCP tomorrow PLAN: The current medical regimen is effective; continue present plan and medications. EKG HEADACHE MANAGEMENT: (You are the primary guardian of your health and headache. Keep track of all medications: This includes the reason for use, side effects and benefits.) MEDICATION TREATMENT: Medications to Start Taking SUMAtriptan (IMITREX STATDOSE PEN) 6 mg/0.5 mL pen Inject 0.5 mL subcutaneously as needed (at onsetof headache. May repeat after 1 hour.). Headache education was done. Discussed lifestyle modification including increased oral hydration, decreased caffeine, exercise and stress management. Discussed treatment options including preventive and acute medications, natural supplements, and infusion therapy. Discussed medication overuse headache and to limit use of acute treatments to no more than 2 days/week or 10 days/month. Discussed medication side effects, adverse reactions and drug interactions. Written educational materials and patient instructions outlining all of the above were given. RESEARCH: None at this time Follow-up: 1 year, PRN . Level of service: Est level 3 (20-29 min). Time spent 25 min on the day of service, which included preparing to see the patient, [id number] patient care, completing clinical documentation, obtaining and/or reviewing separately obtained history, performing a medically appropriate examination, counseling and educating the patient/family/caregiver, and ordering medications, tests, or procedures. Snow Brooks APRN.TOOL SUPERVISOR [facility] [facility] documented in this encounterLouis Stokes [facility]09[facility]23 Miscellaneous Notes* Telephone Encounter - Wendy Jack - 12/27/2022 10:51 AM EDT NI PHONE Name of caller : Giuseppe Relationship to patient : Self If not self Will need patient permission to release results or disclose health information with called documented in fyi. Was permission obtained from patient ? Yes Patient identified by Name and Date of . ( Elsa Palacio, 1940). Yes Reason for Call : Order Type of order requested : Labs Are you going to external facility ? YES. Patient would like to obtain with PCP in [place]. Did not have fax number. States its his typical lab work and did not know exactly what. Just wanted to get it done before his appt on 01/21/23. Number to return call [phone] Okay to leave a message ? Yes Last office visit 02/16/22 with Cecilia Next office visit 01/21/23 with Cecilia Thank you calling [facility] [place]. You will receive a return call within 48hours ( or 2 business days if close to the weekend). If you feel that this is an urgent issue and needs immediate attention, it is recommended that you contact your primary care provider office or proceed to your nearest Urgent Care Center of Emergency Room ED for evaluation/treatment. documented in this encounterLouis Stokes [facility]02-15-2023 Miscellaneous Notes* Telephone Encounter - Nesha Vail Adm - 06/06/2022 12:23 PM EST KD: 02/16/2022 with Cecilia documented in this encounterLouis Stokes [facility]01-10-2023 Instructions* Patient Instructions* Shaq Bishop PA-C - 05/01/2022 10:34 AM EST > 1 year Appt w/ B. MARTHA Bishop, INGRIS KIM for annual follow-up and refills. documented in this encounterLouis Stokes [facility]01-10-2023 History of Present illness Narrative* Shaq Bishop PA-C - 05/01/2022 10:23 AM EST Images from the original note were not included. [facility] ESTABLISHED PATIENT CLINIC NOTE Some elements copied from his previous note, which have been updated where appropriate, and all reflect current medical decision making from date of this visit. SERVICE DATE: 05/01/2022 SERVICE TIME: 10:23 AM NAME: Elsa aPlacio CHIEF COMPLAINT: 3 mo follow up HISTORY OF PRESENT ILLNESS: Elsa Palacio is a 82 year old Male presenting with follow up after starting Proscar 5 mg for postvoid dribble The patient reports he is improved but has been effecting his erections, he does use Viagra with good results For now he would like to stay on the Proscar 5 mg with the Flomax 0.4 mg LUTS: No new LUTS Other symptoms: ED - yes LABS: Hematocrit (%) Date Value 01/09/2022 45.0 01/13/2019 45.5 04/18/2015 44.8 03/08/2014 45.1 03/11/2013 44.4 PSA (ng/mL) Date Value 12/29/2014 0.70 12/29/2013 0.78 Testosterone (ng/dL) Date Value 06/28/2004 328 PSA (ng/mL) Date Value 12/29/2014 0.70 12/29/2013 0.78 Creatinine Date Value Ref Range Status 01/09/2022 1.17 0.73 - 1.22 mg/dL Final 02/27/2021 1.12 0.73 - 1.22 mg/dL Final 02/08/2020 1.19 0.73 - 1.22 mg/dL Final 12/17/2019 1.12 0.73 - 1.22 mg/dL Final MEDICATIONS: verapamil (CALAN, ISOPTIN) 80 mg tablet Take 1 po at night finasteride (PROSCAR) 5 mg tablet Take 1 tablet by mouth once daily. levothyroxine (SYNTHROID) 100 mcg tablet Take 1 tablet by mouth once daily. sildenafil (VIAGRA) 100 mg tablet Take 1 tablet by mouth as directed. tamsulosin (FLOMAX) 0.4 mg Take 2 capsules by mouth once daily. SUMAtriptan (IMITREX STATDOSE PEN) 6 mg/0.5 mL kit Inject 0.5 mL subcutaneously as needed (at onsetof headache. May repeat after 1 hour.). therapeutic multivitamin ORAL tablet Take by mouth once daily. MELATONIN 3 MG TAB Take 3 mg by mouth daily at bedtime. docusate sodium([email or web address] LIQUI-GELS 100 MG CAP) Take by mouth once daily. 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 Dr Jameson Diverticulosis of colon (without mention of hemorrhage) Dupuytren's contracture of both hands ED (erectile dysfunction) Hypothyroidism Migraine with aura, without mention of intractable migraine without mention of status migrainosus [facility] RAE, Dr Pierce PAST SURGICAL HISTORY: PAST SURGICAL HISTORY Procedure Laterality Date ARTHROSCOPY KNEE DIAGNOSTIC W/WO SYNOVIAL BX SPX ~1979 Arthroscopy, left knee COLONOSCOPY & POLYPECTOMY 06/18/2001,04/10/00 Colonoscopy COLONOSCOPY FLX DX W/COLLJ SPEC WHEN PFRMD 07/09/07 repeat due 2012 COLONOSCOPY FLX DX W/COLLJ SPEC WHEN PFRMD 05/27/2012 no polyps, repeat due 2017 COLONOSCOPY FLX DX W/COLLJ SPEC WHEN PFRMD 01/20/2018 Colonoscopy COLONOSCOPY W/BIOPSY SINGLE/MULTIPLE 05/10/05 RAD RESECT TUMOR SOFT TISS NECK/ANT THORAX <5CM ~1969 BREAST TUMOR, left RELEASE PALM CONTRACTURE 01/15/2012 Right hand needle aponeurotomy FAMILY HISTORY: FAMILY HISTORY Problem Relation Age of Onset other (CHF) Mother OLD AGE Colon Cancer Father age 76 +/- SOCIAL HISTORY: Social Connections: Not on file REVIEW OF SYSTEMS: GENERAL: No fever, chills, weight loss, or fatigue. All other systems reviewed and are negative PHYSICAL EXAMINATION: Blood pressure 140/88, pulse 70, temperature 36.1 C (97 F), temperature source Temporal, resp. rate12, height 177.8 cm (5' 10), weight 75.8 kg (167 lb), SpO2 98 %. GENERAL: WNL nutrition, no deformities, healthy appearing PROBLEM LIST REVIEW: Yes LABS: Results for orders placed or performed in visit on 05/01/22 UA DIP, URINE (POC) Result Value Ref Range GLUCOSE UA (POCT) Negative Negative mg/dL BILIRUBIN UA (POCT) Small (A) Negative KETONE UA (POCT) 15 (A) Negative mg/dL SPECIFIC GRAVITY UA (POCT) 1.020 1.005 - 1.030 HEMOGLOBIN/BLOOD UA (POCT) Trace-intact (A) Negative PH UA (POCT) 7.0 4.5 - 8.0 PROTEIN UA (POCT) 30 (A) Negative mg/dL UROBILINOGEN UA (POCT) 0.2 Normal E.U./dL NITRITE UA (POCT) Negative Negative LEUKOCYTES UA (POCT) Negative Negative COLOR UA (POCT) Dark yellow CLARITY UA (POCT) Clear PROCEDURES: PVR: 0 ml IMAGING: IMPRESSION/PLAN: 82 year old male with . 1. BPH with obstruction/lower urinary tract symptoms - ICD9: 600.01, 599.69, ICD10: N40.1, N13.8 - UA DIP, URINE (POC) - POST VOID RESIDUAL > Continue Proscar and Flomax - refills given > Refilled Viagra with Good Rx coupon > 1 year Appt w/ MARTHA Courtney MT, PA-C for annual follow-up and refills. MARTHA Martinez MT, PA-C * Leilani Archer LPN - 05/01/2022 9:57 AM EST Verified name and date of . CC Post Void Residual HPI: Elsa Palacio is a 82 year old male. The patient is here now for an appointment with MARTHA Martinez MT, PA-COV. Procedure: Explained procedure to patient and verbalizes understanding. Performed a PVR. Patient urinated and instructed to empty bladder as much as possible just prior to having PVR done using bladder ultrasound scanner. Results of scan: 0 mL The patient tolerated the procedure well. Plan: Appointment with Shaq. documented in this encounterLouis [facility] Center12-02-2022 Miscellaneous Notes* Telephone Encounter - Sonia Godfrey APRN.CNP - 03/23/2022 1:48 PM EST Called Mr. Palacio to verify Verapamil dose since it did not reflect what Snow and him discussed at his last visit. He is taking 80 mg daily as shown at their last visit. He states he does not need a refill today and that he sent that request on accident to [facility]. The following approved medication requests have been transmitted electronically. Requested Prescriptions Refused Prescriptions Disp Refills verapamil (CALAN, ISOPTIN) 80 mg tablet [Pharmacy Med Name: VERAPAMIL HCL TABS 80MG] 360 tablet 3 Sig: TAKE 1 TABLET IN THE MORNING AND 3 TABLETS AT NIGHT Refused By: SONIA GODFREY Reason for Refusal: Records indicate that there is a valid prescription at the pharmacy Sonia Godfrey APRN.CNP March 23, 2022 1:48 PM * Telephone Encounter - Wendy Jack - 03/23/2022 1:31 PM EST Physician: Cecilia Call from patient requesting refill. Please E-Scribe Last office visit 02/16/22 with Cecilia YEBOAH Next office visit Not scheduled NA Requested Prescriptions Pending Prescriptions Disp Refills verapamil (CALAN, ISOPTIN) 80 mg tablet [Pharmacy Med Name: VERAPAMIL HCL TABS 80MG] 360 tablet 3 Sig: TAKE 1 TABLET IN THE MORNING AND 3 TABLETS AT NIGHT Pharmacy Name: [facility] Wendy Jack documented in this encounterLouis [facility]10-31-2022 Miscellaneous Notes* Telephone Encounter - Snow Brooks APRN.CNP - 02/19/2022 4:51 PM EDT Called patient and discussed EKG results NSR. Snow Brooks APRN.RUTHIE * Telephone Encounter - Neshayessenia Vail Adm - 02/19/2022 4:38 PM EDT Patient called back and said that he will be available all day after 9 am tomorrow. [phone] * Telephone Encounter - Snow Brooks APRN.CNP - 02/19/2022 4:32 PM EDT Called patient and left message to contact the office with the best time to reach him Snow Brooks APRN.CNP * Telephone Encounter - Jocelyn Madrid Pss - 02/19/2022 2:51 PM EDT Patient last seen 02/16/2022. ECG results are dated 02/15/2022. documented in this encounterLouis Stokes [facility] Center10-28-2022 Instructions* Patient Instructions* Snow Brooks APRN.CNP - 02/16/2022 10:55 AM EDT 03/03/2021 07/03/2021 BP 116/70 118/72 Pulse 66 74 01/19/2022 01/30/2022 02/16/2022 BP 134/84 154/98 Shaq Bishop PA-C notified of blood pressure. 148/73 Pulse 60 64 59 (A) documented in this encounterLouis Stokes [facility]10-28-2022 History of Present illness Narrative* Snow Brooks APRN.CNP - 02/16/2022 10:30 AM EDT [facility] Follow up visit February 16, 2022 Chief Complaint: head\ache Impression and Plan last visit: 03/22/2021 Elsa Palacio is a 81 year old year old male, with a history of episodic cluster headaches. Last full blown episode 2011. No exacerbation with stopping Depakote Ice tea at dinner will prevent the hypnic headaches. Once a month he may treat the beginning of a cluster. ICHD-3 Diagnosis: Episodic cluster headache MEDICATION TREATMENT: Medications to Start Taking verapamil (CALAN, ISOPTIN) 80 mg tablet Take 1 po in the am and 3 po at night SUMAtriptan (IMITREX STATDOSE PEN) 6 mg/0.5 mL kit Inject 0.5 mL subcutaneously as needed (at onsetof headache. May repeat after 1 hour.). Interval Headache History: . 1. Overnight headaches hypnic from time to time if he does not have tea Glass of ice tea at noon and dinner will prevent it Night time headache - pain in the head holocephalic dull throbbing aching 2. Cluster - last full blown cluster 2011 No breakthrough headaches when tapering off Depakote Over the last year he has been tapering off Verapamil - he would drop a dose and feel a headache coming on, He had been taking 2 in the am and 3 at hs now he is taking just 80mg at night Clusters start out gradually and take 1-2 hours to be full blown - he will treat right away. Headache 1 Location: cluster starts base of the skull on the left and settle behind the left eye ptosis and severe photophobia Number of migraine headache days/month: 0 Number of headache free days/month: 30 Current preventive treatment: verpamil 80mg at hs Relieving factors: sumatriptan injection; coffee or ice tea Days missed from work or school in the last month: 0 days: Current Outpatient Medications Medication Sig finasteride (PROSCAR) 5 mg tablet Take 1 tablet by mouth once daily. verapamil (CALAN, ISOPTIN) 80 mg tablet Take 2 tablet po at night (Patient taking differently: Take2 tablet po at night Patient taking one tablet by mouth daily) levothyroxine (SYNTHROID) 100 mcg tablet Take 1 tablet by mouth once daily. sildenafil (VIAGRA) 100 mg tablet Take 1 tablet by mouth as directed. tamsulosin (FLOMAX) 0.4 mg Take 2 capsules by mouth once daily. SUMAtriptan (IMITREX STATDOSE PEN) 6 mg/0.5 mL kit Inject 0.5 mL subcutaneously as needed (at onsetof headache. May repeat after 1 hour.). therapeutic multivitamin ORAL tablet Take one(1) tablet daily. MELATONIN 3 MG TAB take 3 tablets daily at bedtime. docusate sodium(LOPEZ LIQUI-GELS 100 MG CAP) 3 per day No current facility-administered medications for this visit. 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 Dr Jameson Diverticulosis of colon (without mention of hemorrhage) Dupuytren's contracture of both hands ED (erectile dysfunction) Hypothyroidism Migraine with aura, without mention of intractable migraine without mention of status migrainosus Cluster RAE, Dr Pierce ALLERGIES Allergen Reactions Cheese (See Vegetab* cluster headaches Dairy Products [Oth* Other: See Comments headache Mold cluster headaches Penicillin G cluster h/a Pollen cluster headaches Vinegar cluster headaches HEADACHE SCORES: Headache Questions 02/13/2020 03/20/2021 02/11/2022 ER visits since last office visit: 0 0 0 Hospital stays since last office visit 0 0 0 Limited ADLs in the last month: 0 0 0 Days missed from work or school in the last month: - 0 0 Days headache pain free in the last month: 30 28 30 Days per month with ALL of the following symptoms - decreased productivity, light sensitivity and nausea: 0 0 0 Initial improvement of headache after botox injection at last visit: Not applicable, I did not havea botox injection at my last visit Not applicable, I did not have a botox injection at my last visit Not applicable, I did not have a botox injection at my last visit PRN medication usage in the last month: 0 2 0 Patient impression of improvement since last visit: No change No change Very much improved HIT-6 02/13/2020 03/20/2021 02/11/2022 HIT-6 - - - HIT-6 44 (Little or no impact) 44 (Little or no impact) 44 (Little or no impact) TATIANA - 2/7 SCORES 02/13/2020 03/20/2021 02/11/2022 TATIANA-2 Score 0 0 0 Migraine Specific QOL - Higher scores indicate better HRQL 01/21/2019 02/13/2020 02/11/2022 Role Function-Restrictive Transformed Score (range: 0-100) 100 100 100 Role Function-Preventive Transformed Score (range: 0-100) 100 100 100 Emotional Function Transformed Score (range: 0-100) 100 100 100 PHQ-9 02/13/2020 03/20/2021 02/11/2022 Score 0 1 2 Review of Systems: Review of system: unchanged from the previous visit (sleep patterns, mood, energy, appetite, stress, exercising). Sleep: some days he will wake in the middle of the night and be up for -2 hours Mood: normal and good Energy: Normal - stable Appetite: normal Weight stable- no unsweetened tea Stress: Low Exercising: Yes, walks 2 miles a day PHYSICAL EXAMINATION: VS: BP 148/73 Pulse (!) 59 Ht 177.8 cm (5' 10) Wt 73 kg (161 lb) BMI 23.10 kg/m 03/03/2021 07/03/2021 BP 116/70 118/72 Pulse 66 74 01/19/2022 01/30/2022 02/16/2022 BP 134/84 154/98 Shaq Bishop PA-C notified of blood pressure. 148/73 Pulse 60 64 59 (A) General: well appearing, in no acute distress, well-hydrated, well nourished, alert HEENT: Normocephalic/atraumatic., No carotid bruits ascultated. CV: RRR Musculoskeletal: No gross joint deformities. Neurological: Pain Behaviors: no pain behaviors observed Mental Status: Alert and oriented to person, place and time. Affect is normal and appropriate. Speech is spontaneous and fluent without dysarthria, normal in rate, volume and articulation, and clear,coherent, and relevant. Short and fpc memory, cognition and general fund of knowledge are good. Attention span and concentration are excellent. Cranial Nerves: II-Visual glover are full. III, IV, - extraocular muscles intact bilaterally, PERRL, nystagmus absent, . Cerebellar: No ataxia. Tremor: absent. Normal finger to nose. Gait examination is normal. IMPRESSION: Elsa Palacio is a 82 year old year old male, with a history of episodic cluster headache and probable hypnic headache returns in follow up. His last full blown cluster episode was 2011. Over the years he has tried reducing Depakote but with a random headache breaking through. Over the past 2 years he has been able to taper off Depakote with no breakthrough. This year has reduced Verapamil from 240mg a day to 80mg a day. He blood reading as noted above. He is agreeable to staying on this current dose ov Verapamil. . His neurological examination is essentially normal at this visit. EKG yesterday, final read not done PLAN: Continue verapamil Contact the office if you start back in a cycle HEADACHE MANAGEMENT: (You are the primary guardian of your health and headache. Keep track of all medications: This includes the reason for use, side effects and benefits.) MEDICATION TREATMENT: Medications to Start Taking None Headache education was done. Discussed lifestyle modification including increased oral hydration, decreased caffeine, exercise and stress management. Discussed treatment options including preventive and acute medications, natural supplements, and infusion therapy. Discussed medication overuse headache and to limit use of acute treatments to no more than 2 days/week or 10 days/month. Discussed medication side effects, adverse reactions and drug interactions. Written educational materials and patient instructions outlining all of the above were given. RESEARCH: None at this time Follow-up: 1 year, PRN . Level of service: Est level 4 (30-39 min). Time spent 30 min on the day of service, which included preparing to see the patient, [id number] patient care, completing clinical documentation, obtaining and/or reviewing separately obtained history, and counseling and educating the patient/family/caregiver. Snow Brooks APRN.RUTHIE [facility] February 16, 2022 12:57 PM documented in this encounterLouis Stokes [facility]10-27-2022 History of Present illness Narrative* Meera Parker LPN - 02/15/2022 3:04 PM EDT Patient presents for EKG per Dr Brooks. Denies any problems at this time. Tolerated procedure well. Meera Parker LPN documented in this encounterLouis Stokes [facility]10-11-2022 History of Present illness Narrative* Shaq Bishop PA-C - 01/30/2022 3:07 PM EDT Images from the original note were not included. [facility] NEW PATIENT CLINIC NOTE SERVICE DATE: 01/30/2022 SERVICE TIME: 3:07 PM NAME: Elsa Palacio REFERRED BY: CHIEF COMPLAINT: Post-Void Dripping HISTORY OF PRESENT ILLNESS: Elsa Palacio is a 81 year old Male with PMH including BPH without LUTs and no current medicationspresenting with new LUTS The patient reports Post Void Dripping for that 1-2 years more annoying than anything else Dicussed Prosca to help possibley LUTS: Other symptoms: LABS: Testosterone (ng/dL) Date Value 06/28/2004 328 Testosterone Free (pg/mL) Date Value 06/28/2004 40.0 PSA (ng/mL) Date Value 12/29/2014 0.70 12/29/2013 0.78 Hematocrit (%) Date Value 01/09/2022 45.0 01/13/2019 45.5 04/18/2015 44.8 03/08/2014 45.1 MEDICATIONS: verapamil (CALAN, ISOPTIN) 80 mg tablet Take 2 tablet po at night (Patient taking differently: Take2 tablet po at night Patient taking one tablet by mouth daily) levothyroxine (SYNTHROID) 100 mcg tablet Take 1 tablet by mouth once daily. sildenafil (VIAGRA) 100 mg tablet Take 1 tablet by mouth as directed. tamsulosin (FLOMAX) 0.4 mg Take 2 capsules by mouth once daily. SUMAtriptan (IMITREX STATDOSE PEN) 6 mg/0.5 mL kit Inject 0.5 mL subcutaneously as needed (at onsetof headache. May repeat after 1 hour.). therapeutic multivitamin ORAL tablet Take one(1) tablet daily. MELATONIN 3 MG TAB take 3 tablets daily at bedtime. docusate sodium(LOPEZ LIQUI-GELS 100 MG CAP) 3 per day finasteride (PROSCAR) 5 mg tablet Take 1 tablet by mouth once daily. 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 Dr Jameson Diverticulosis of colon (without mention of hemorrhage) Dupuytren's contracture of both hands ED (erectile dysfunction) Hypothyroidism Migraine with aura, without mention of intractable migraine without mention of status migrainosus Cluster RAE, Dr Pierce PAST SURGICAL HISTORY: PAST SURGICAL HISTORY Procedure Laterality Date ARTHROSCOPY KNEE DIAGNOSTIC W/WO SYNOVIAL BX SPX ~1979 Arthroscopy, left knee COLONOSCOPY & POLYPECTOMY 06/18/2001,04/10/00 Colonoscopy COLONOSCOPY FLX DX W/COLLJ SPEC WHEN PFRMD 07/09/07 repeat due 2012 COLONOSCOPY FLX DX W/COLLJ SPEC WHEN PFRMD 05/27/2012 no polyps, repeat due 2017 COLONOSCOPY FLX DX W/COLLJ SPEC WHEN PFRMD 01/20/2018 Colonoscopy COLONOSCOPY W/BIOPSY SINGLE/MULTIPLE 05/10/05 RAD RESECT TUMOR SOFT TISS NECK/ANT THORAX <5CM ~1969 BREAST TUMOR, left RELEASE PALM CONTRACTURE 01/15/2012 Right hand needle aponeurotomy FAMILY HISTORY: FAMILY HISTORY Problem Relation Age of Onset other (CHF) Mother OLD AGE Colon Cancer Father age 76 +/- SOCIAL HISTORY: Social Connections: Not on file REVIEW OF SYSTEMS: GENERAL: No fever, chills, weight loss, or fatigue. ENMT: Negative CARDIOVASCULAR:NO CHEST PAIN, PALPITATIONS, ANKLE EDEMA RESPIRATORY: No chronic cough, wheezing, dyspnea, hemoptysis. GENITOURINARY: SEE HPI MUSCULOSKELETAL:NO CHRONIC BACK PAIN, ARTHRITIS, CHRONIC NECK PAIN SKIN: NO VARICOSE VEINS, RASH, ABNORMAL ITCHING HEME/LYMPH/IMMUNE:Negative for prolonged bleeding, bruising easily or swollen nodes NEUROLOGICAL: NO HEADACHES, NUMBNESS, SEIZURES, STROKE DIABETES: no All other systems reviewed and are negative PHYSICAL EXAMINATION: Blood pressure 154/98, pulse 64, temperature 36.2 C (97.1 F), temperature source Temporal, resp. rate 14, height 177.8 cm (5' 10), weight 77.6 kg (171 lb), SpO2 99 %. GENERAL: WNL nutrition, no deformities, healthy appearing NEURO: Awake, alert and oriented x 3 and Normal gait PSYCH: No signs of depression, anxiety, or agitation ENMT (Ear, Nose, Mouth, Throat): No masses, adenopathy, icterus. Thyroid nonpalpable RESP: NL effort, no retractions or purse-lip breathing. CV: No extremity swelling, varices, edema, pallor, erythema GASTROINTESTINAL: Soft, nontender, nondistended, no masses. HERNIAS: None SKIN: No rash, lesions No palpable lymphadenopathy PROBLEM LIST REVIEW: Yes LABS: Results for orders placed or performed in visit on 01/30/22 UA DIP, URINE (POC) Result Value Ref Range GLUCOSE UA (POCT) Negative Negative mg/dL BILIRUBIN UA (POCT) Negative Negative KETONE UA (POCT) Negative Negative mg/dL SPECIFIC GRAVITY UA (POCT) 1.020 1.005 - 1.030 HEMOGLOBIN/BLOOD UA (POCT) Trace-lysed (A) Negative PH UA (POCT) 7.0 4.5 - 8.0 PROTEIN UA (POCT) Trace (A) Negative mg/dL UROBILINOGEN UA (POCT) 0.2 Normal E.U./dL NITRITE UA (POCT) Negative Negative LEUKOCYTES UA (POCT) Negative Negative COLOR UA (POCT) Dark yellow CLARITY UA (POCT) Clear PROCEDURES: PVR: 0 ml IMAGING: IMPRESSION/PLAN: 81 year old male with . Post-Void Dripping > Trial of Proscar 5 mg I spent a total of 30 minutes on the date of the service which included preparing to see the patient, face to face patient care, completing clinical documentation, obtaining and/or reviewing separately obtained history, performing a medically appropriate examination, counseling and educating the pat ient/family/caregiver, ordering medications, tests, or procedures, and care coordination. MARTHA Martinez MT, PA-C * Leilani Archer LPN - 01/30/2022 11:16 AM EDT Verified name and date of . CC Post Void Residual HPI: Elsa Palacio is a 81 year old male. The patient is here now for an appointment with MARTHA Martinez MT, PA-COV. Procedure: Explained procedure to patient and verbalizes understanding. Performed a PVR. Patient urinated and instructed to empty bladder as much as possible just prior to having PVR done using bladder ultrasound scanner. Results of scan: 8 mL The patient tolerated the procedure well. Plan: Appointment with Shaq. documented in this encounterLouis Stokes [facility]09-30-2022 Instructions* Patient Instructions* Zeeshan Mahmood APRN.CNP - 01/19/2022 1:32 PM EDT Influenza and COVID given today [facility]othyroxine [facility] Repeat TSH on or around 03/21/2022. I will reach out to you with results and instructions. Schedule with [facility]. Zeeshan Mahmood APRN.CNP documented in this encounterLouis Stokes [facility]09-30-2022 History of Present illness Narrative* Zeeshan Mahmood APRN.CNP - 01/19/2022 1:20 PM EDT Medicare Yearly Visit Medical B eligibilty date 01/2006 Date of last exam 01/15/2018 Would like to get the influenza and COVID vaccine today. He is due for his Booster. Had a viral syndrome, including a dry cough when he had blood drawn. WBCs were elevated at 13.10. Had a dry cough, chills. He is back to normal, symptoms resolved. TSH was suppressed at 0.222. Discussing that he has had continued post void urinary dribble. Difficulty with stream. He is on Flomax 0.4 mg (2 tablets nightly). He was previously seeing urology for elevated PSA but it resolved and was discharged. No blood in urine. Would like to see urology again. 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 Dr Jameson Diverticulosis of colon (without mention of hemorrhage) Dupuytren's contracture of both hands ED (erectile dysfunction) Hypothyroidism Migraine with aura, without mention of intractable migraine without mention of status migrainosus Dr Kari Aguilar PAST SURGICAL HISTORY Procedure Laterality Date ARTHROSCOPY KNEE DIAGNOSTIC W/WO SYNOVIAL BX SPX ~1979 Arthroscopy, left knee COLONOSCOPY & POLYPECTOMY 06/18/2001,04/10/00 Colonoscopy COLONOSCOPY FLX DX W/COLLJ SPEC WHEN PFRMD 07/09/07 repeat due 2012 COLONOSCOPY FLX DX W/COLLJ SPEC WHEN PFRMD 05/27/2012 no polyps, repeat due 2017 COLONOSCOPY FLX DX W/COLLJ SPEC WHEN PFRMD 01/20/2018 Colonoscopy COLONOSCOPY W/BIOPSY SINGLE/MULTIPLE 05/10/05 RAD RESECT TUMOR SOFT TISS NECK/ANT THORAX <5CM ~1970 BREAST TUMOR, left RELEASE PALM CONTRACTURE 01/15/2012 Right hand needle aponeurotomy ALLERGIES: Cheese (See Vegetable Gum), Dairy Products [Other], Mold, Penicillin G, Pollen, and Vinegar Medications reviewed: Yes FAMILY HISTORY Problem Relation Age of Onset other (CHF) Mother OLD AGE Colon Cancer Father age 76 +/- SOCIAL HISTORY: Social History Tobacco Use Smoking status: Former Types: Cigarettes Smokeless tobacco: Never Tobacco comments: for 2 years when patient was 20yrs old Vaping Use Vaping Use: Never used Substance Use Topics Alcohol use: No Drug use: No Elsa likes to exercise by walking. He watches his diet for sodium, low fat and low cholesterol most of the time. List of current specialists seen: Neurology, [facility]; [facility] Planning discussed including patients advanced directive wishes: Yes I am willing to follow Elsa's advanced directives. PHQ-2 / Depression screen He in the past two weeks denies having felt down, depressed, hopeless, or with little interest or pleasure in doing things. Functional Ability/Safety Screen 1. Was the patient's timed Up and Go test unsteady or longer than 30 seconds? No 2. Does the patient need help with the phone, transportation, shopping,preparing meals, housework, laundry, medications or managing money? No 3. Does your home have rugs in the hallway, lack of grab bars in the bathroom, lack of handrails onthe stairs or have poor lighting? No Hearing Evaluation: wears hearing aids PHYSICAL EXAM BP 134/84 Pulse 60 Temp (!) 35.9 C (96.6 F) (Right Tympanic) Resp 16 Ht 176.5 cm (5' 9.5) Wt 78.7 kg (173 lb 8 oz) BMI 25.25 kg/m Alert and oriented X 3: YES Body mass index is 25.25 kg/m . General appearance: healthy, alert, cooperative, pleasant, in no acute distress Neck: normal, supple, no adenopathy, and thyroid normal size, non-tender, without nodularity Heart: regular rate and rhythm, without murmur Lungs: Lungs clear to auscultation, No wheezing, rales or rhonchi Component Latest Ref Rng & Units 01/09/2022 WBC 3.70 - 11.00 k/uL 13.10 (H) RBC 4.20 - 6.00 m/uL 4.82 Hemoglobin 13.0 - 17.0 g/dL 15.1 Hematocrit 39.0 - 51.0 % 45.0 MCV 80.0 - 100.0 fL 93.4 MCH 26.0 - 34.0 pg 31.3 MCHC 30.5 - 36.0 g/dL 33.6 RDW-CV 11.5 - 15.0 % 12.4 Platelet Count 150 - 400 k/uL 226 MPV 9.0 - 12.7 fL 10.5 Neut% % 76.7 Abs Neut (ANC) 1.45 - 7.50 k/uL 10.04 (H) Lymph% % 14.6 Abs Lymph 1.00 - 4.00 k/uL 1.91 Coal% % 5.8 Abs Coal <0.87 k/uL 0.76 Eosin% % 2.1 Abs Eosin <0.46 k/uL 0.28 Baso% % 0.5 Abs Baso <0.11 k/uL 0.07 Immature Gran % % 0.3 IMMATURE GRANS (ABS) <0.10 k/uL 0.04 NRBC /100 WBC 0.0 Absolute nRBC <0.01 k/uL <0.01 DTYPE Auto Protein, Total 6.3 - 8.0 g/dL 6.6 Albumin 3.9 - 4.9 g/dL 4.4 Calcium 8.5 - 10.2 mg/dL 9.8 Bilirubin, Total 0.2 - 1.3 mg/dL 0.5 Alkaline Phosphatase 38 - 113 U/L 94 AST 14 - 40 U/L 19 ALT 10 - 54 U/L 16 Glucose 74 - 99 mg/dL 95 BUN 9 - 24 mg/dL 19 Creatinine 0.73 - 1.22 mg/dL 1.17 Sodium 136 - 144 mmol/L 140 Potassium 3.7 - 5.1 mmol/L 4.6 Chloride 97 - 105 mmol/L 104 CO2 22 - 30 mmol/L 25 Anion Gap 9 - 18 mmol/L 11 eGFR >=60 mL/min/1.73m 63 Cholesterol, Total <200 mg/dL 191 Triglyceride <150 mg/dL 134 HDL Cholesterol >39 mg/dL 46 Non HDL Cholesterol <130 mg/dL 145 (H) Fasting Time hrs 10 VLDL Cholesterol <30 mg/dL 27 TC:HDL Ratio <5.10 4.15 LDL Cholesterol <100 mg/dL 118 (H) LDL:HDL Ratio <2.54 2.57 (H) TSH 0.270 - 4.200 mIU/L 0.222 (L) ASSESSMENT/PLAN: 1. Medicare annual wellness visit, subsequent - ICD9: V70.0, ICD10: Z00.00 (primary diagnosis) - Counseled on healthy diet and regular exercise - Depression screening tool completed and reviewed with patient. Based on score and interview, patient is not at risk for depression and recommended no further intervention at this time. - Patient was counseled [id number] by myself (the billing provider) for the following immunizations and vaccine components, including side effects: COVID-19 and Influenza. Patient consents for immunization and understands risks and benefits. A VIS sheet on each immunization was given to the patient. - Follow up for annual exam in one year 2. Need for influenza vaccination - ICD9: V04.81, ICD10: Z23 - INFLUENZA SEASONAL QUADRIVALENT HIGH DOSE AGE 65+ 3. Immunization due - ICD9: V05.9, ICD10: Z23 - PFIZER-BIONTECH COVID-19 BIVALENT BOOSTER VACCINE, AGE 12+ YR 4. Episodic cluster headache, not intractable - ICD9: 339.01, ICD10: G44.019 - Continue follow up with neurology - VERAPAMIL 80 MG TABLET 5. Acquired hypothyroidism - ICD9: 244.9, ICD10: E03.9 - Instructed patient on importance of taking on an empty stomach either first thing in the morning or at bedtime. - check TSH in 2 months - Decrease Synthroid dose to 0.100 mg - LEVOTHYROXINE 100 MCG TABLET - TSH BLD 6. BPH with obstruction/lower urinary tract symptoms - ICD9: 600.01, 599.69, ICD10: N40.1, N13.8 - Already on Flomax 0.4 mg (2 capsules). History of BPH. Ongoing for extended time period. Patient will call to schedule with urology. - CONSULT TO UROLOGY Zeeshan Mahmood APRN.CNP documented in this encounter[facility] Miscellaneous Notes* Telephone Encounter - Snow Brooks APRN.CNP - 01/08/2022 9:46 AM EDT He is no longer on Depakote. Labs per PCP Order placed for EKG Snow Brooks APRN.CNP * Telephone Encounter - Jocelyn Madrid Pss - 01/04/2022 11:45 AM EDT NI PHONE Name of caller : Giuseppe Relationship to patient : Self If not self Will need patient permission to release results or disclose health information with called documented in fyi. Was permission obtained from patient ? Yes Patient identified by Name and Date of . ( Elsa Palacio, 1940). Yes Reason for Call : Order Type of order requested : any lab work you want patient to complete before is follow up with you , 02/16/2022. Are you going to external facility ? No Patient is aware you are out of office today. Number to return call [phone] Okay to leave a message ? Yes Last office visit 03/22/2021 with Cecilia Next office visit 02/16/2022 with Cecilia Thank you calling [facility] [place]. You will receive a return call within 48hours ( or 2 business days if close to the weekend). If you feel that this is an urgent issue and needs immediate attention, it is recommended that you contact your primary care provider office or proceed to your nearest Urgent Care Center of Emergency Room ED for evaluation/treatment. documented in this encounterLouis [facility] Miscellaneous Notes* Telephone Encounter - Herminia Keith RN - 01/05/2022 10:43 AM EDT Pt called and is notified of providers message. Pt voices understanding. Herminia Keith RN * Telephone Encounter - Zeeshan Mahmood APRN.CNP - 01/04/2022 5:50 PM EDT Orders filed. Zeeshan Mahmood CNP * Telephone Encounter - Naida Vazquez Ma - 01/04/2022 1:24 PM EDT Routed to RUTHIE, SYLVIA to file orders. Naida Vazquez Ma * Telephone Encounter - Sultana Cunningham - 01/04/2022 1:12 PM EDT Patient is schedule for physical on 01/19 and requesting lab orders. Please advise patient. documented in this encounterLouis [facility] Miscellaneous Notes* Telephone Encounter - Zeeshan Mahmood APRN.CNP - 10/09/2021 9:04 AM EDT The following approved medication requests have been transmitted electronically. Pending Prescriptions Disp Refills SILDENAFIL 100 MG TABLET 6 tablet 11 Sig: Take 1 tablet by mouth as directed. DICKSON: No Zeeshan Mahmood APRN.CNP * Telephone Encounter - Clara Salter LPN - 10/09/2021 8:44 AM EDT Pt calling for refill. KD: 03/03/21 NOV: None scheduled, pt aware he is due in the fall Last Refill: 08/30/20 #6 11 refills Clara Salter LPN documented in this encounterLouis [facility] Miscellaneous Notes* Telephone Encounter - Jocelyn Madrid Pss - 08/29/2021 4:23 PM EDT Patient last seen 07/03/2021. documented in this encounterLouis [facility] History of Past illness Narrative* Problem Noted Date Resolved Date Diverticulosis of colon (without mention of hemo rrhage) 05/10/2005 02/01/2017 3.1.1 PERIOD UNDETERM W/O INTRACT [346.20] 02/2203/11/2009 documented as of this encounter (statuses as of 08/29/2021) [facility] History of Past illness Narrative* Problem Noted Date Resolved Date Diverticulosis of colon (without mention of hemo rrhage) 05/10/2005 02/01/2017 3.1.1 PERIOD UNDETERM W/O INTRACT [346.20] 02/2203/11/2009 documented as of this encounter (statuses as of 10/09/2021) [facility] History of Past illness Narrative* Problem Noted Date Resolved Date Diverticulosis of colon (without mention of hemo rrhage) 05/10/2005 02/01/2017 3.1.1 PERIOD UNDETERM W/O INTRACT [346.20] 02/2203/11/2009 documented as of this encounter (statuses as of 01/05/2022) [facility] History of Past illness Narrative* Problem Noted Date Resolved Date Diverticulosis of colon (without mention of hemo rrhage) 05/10/2005 02/01/2017 3.1.1 PERIOD UNDETERM W/O INTRACT [346.20] 02/2203/11/2009 documented as of this encounter (statuses as of 01/08/2022) [facility] History of Past illness Narrative* Problem Noted Date Resolved Date Diverticulosis of colon (without mention of hemo rrhage) 05/10/2005 02/01/2017 3.1.1 PERIOD UNDETERM W/O INTRACT [346.20] 02/2203/11/2009 documented as of this encounter (statuses as of 01/19/2022) [address]19-2006 History of Past illness Narrative* Problem Noted Date Resolved Date Diverticulosis of colon (without mention of hemo rrhage) 05/10/2005 02/01/2017 3.1.1 PERIOD UNDETERM W/O INTRACT [346.20] 02/2203/11/2009 documented as of this encounter (statuses as of 01/30/2022) [address]19-2006 History of Past illness Narrative* Problem Noted Date Resolved Date Diverticulosis of colon (without mention of hemo rrhage) 05/10/2005 02/01/2017 3.1.1 PERIOD UNDETERM W/O INTRACT [346.20] 02/2203/11/2009 documented as of this encounter (statuses as of 02/15/2022) [address]19-2006 History of Past illness Narrative* Problem Noted Date Resolved Date Diverticulosis of colon (without mention of hemo rrhage) 05/10/2005 02/01/2017 3.1.1 PERIOD UNDETERM W/O INTRACT [346.20] 02/2203/11/2009 documented as of this encounter (statuses as of 02/16/2022) [address]19-2006 History of Past illness Narrative* Problem Noted Date Resolved Date Diverticulosis of colon (without mention of hemo rrhage) 05/10/2005 02/01/2017 3.1.1 PERIOD UNDETERM W/O INTRACT [346.20] 02/2203/11/2009 documented as of this encounter (statuses as of 02/19/2022) [address]19-2006 History of Past illness Narrative* Problem Noted Date Resolved Date Diverticulosis of colon (without mention of hemo rrhage) 05/10/2005 02/01/2017 3.1.1 PERIOD UNDETERM W/O INTRACT [346.20] 02/2203/11/2009 documented as of this encounter (statuses as of 03/23/2022) [address]19-2006 History of Past illness Narrative* Problem Noted Date Resolved Date Diverticulosis of colon (without mention of hemo rrhage) 05/10/2005 02/01/2017 3.1.1 PERIOD UNDETERM W/O INTRACT [346.20] 02/2203/11/2009 documented as of this encounter (statuses as of 04/03/2022) [address]19-2006 History of Past illness Narrative* Problem Noted Date Resolved Date Diverticulosis of colon (without mention of hemo rrhage) 05/10/2005 02/01/2017 3.1.1 PERIOD UNDETERM W/O INTRACT [346.20] 02/2203/11/2009 documented as of this encounter (statuses as of 05/01/2022) [address]19-2006 History of Past illness Narrative* Problem Noted Date Resolved Date Diverticulosis of colon (without mention of hemo rrhage) 05/10/2005 02/01/2017 3.1.1 PERIOD UNDETERM W/O INTRACT [346.20] 02/2203/11/2009 documented as of this encounter (statuses as of 06/07/2022) [address]19-2006 History of Past illness Narrative* Problem Noted Date Diagnosed Date Resolved Date Diverticulosis of colon (wit hout mention of hemorrhage) 05/10/2005 02/01/2017 3.1.1 PERIOD UNDETERM W/O INTRACT [346.20] 02/23/2004 03/11/2009 documented as of this encounter (statuses as of 12/27/2022) [address]19-2006 History of Past illness Narrative* Problem Noted Date Diagnosed Date Resolved Date Diverticulosis of colon (wit hout mention of hemorrhage) 05/10/2005 02/01/2017 3.1.1 PERIOD UNDETERM W/O INTRACT [346.20] 02/23/2004 03/11/2009 documented as of this encounter (statuses as of 01/22/2023) [address]19-2006 History of Past illness Narrative* Problem Noted Date Diagnosed Date Resolved Date Diverticulosis of colon (wit hout mention of hemorrhage) 05/10/2005 02/01/2017 3.1.1 PERIOD UNDETERM W/O INTRACT [346.20] 02/23/2004 03/11/2009 documented as of this encounter (statuses as of 01/23/2023) [address]19-2006 History of Past illness Narrative* Problem Noted Date Diagnosed Date Resolved Date Diverticulosis of colon (wit hout mention of hemorrhage) 05/10/2005 02/01/2017 3.1.1 PERIOD UNDETERM W/O INTRACT [346.20] 02/23/2004 03/11/2009 documented as of this encounter (statuses as of 01/26/2023) [address]19-2006 History of Past illness Narrative* Problem Noted Date Diagnosed Date Resolved Date Diverticulosis of colon (wit hout mention of hemorrhage) 05/10/2005 02/01/2017 3.1.1 PERIOD UNDETERM W/O INTRACT [346.20] 02/23/2004 03/11/2009 documented as of this encounter (statuses as of 02/01/2023) [facility] History of Past illness Narrative* Problem Noted Date Diagnosed Date Resolved Date Diverticulosis of colon (wit hout mention of hemorrhage) 05/10/2005 02/01/2017 3.1.1 PERIOD UNDETERM W/O INTRACT [346.20] 02/23/2004 03/11/2009 documented as of this encounter (statuses as of 02/18/2023) [address]19-2006 History of Past illness Narrative* Problem Noted Date Diagnosed Date Resolved Date Diverticulosis of colon (wit hout mention of hemorrhage) 05/10/2005 02/01/2017 3.1.1 PERIOD UNDETERM W/O INTRACT [346.20] 02/23/2004 03/11/2009 documented as of this encounter (statuses as of 03/27/2023) [facility]* Diagnosis Erectile dysfunction due to diseases classified elsewhere documented in this encounter [facility]* Diagnosis Wellness examination- Primary Other specified hypothyroidism documented in this encounter [facility]* Diagnosis Episodic cluster headache, not intractable- Primary Episodic cluster headache documented in this encounter [facility]* Diagnosis Medicare annual wellness visit, subsequent- Primary Routine general medical examination at a health care facility Need for influenza vaccination Need for prophylactic vaccination and inoculation against influenza Immunization due Need for prophylactic vaccination and inoculation against unspecified single disease Episodic cluster headache, not intractable Episodic cluster headache Acquired hypothyroidism Unspecified hypothyroidism BPH with obstruction/lower urinary tract symptoms Hypertrophy of prostate with urinary obstruction and other lower urinary tract symptoms (LUTS) documented in this encounter [facility] note* Diagnosis Post-void dribbling- Primary BPH with obstruction/lower urinary tract symptoms Hypertrophy of prostate with urinary obstruction and other lower urinary tract symptoms (LUTS) documented in this encounter [facility]* Diagnosis Episodic cluster headache, not intractable Episodic cluster headache documented in this encounter [facility] note* Diagnosis Episodic cluster headache, not intractable Episodic cluster headache documented in this encounter [facility] note* Diagnosis Episodic cluster headache, not intractable Episodic cluster headache documented in this encounter [facility] note* Diagnosis BPH with obstruction/lower urinary tract symptoms- Primary Hypertrophy of prostate with urinary obstruction and other lower urinary tract symptoms (LUTS) Erectile dysfunction due to diseases classified elsewhere documented in this encounter [facility] note* Diagnosis Episodic cluster headache, not intractable- Primary Episodic cluster headache documented in this encounter [facility] note* Diagnosis Medicare annual wellness visit, subsequent- Primary Routine general medical examination at a [facility] Encounter for immunization Need for other specified prophylactic vaccination against single bacterial disease Acquired hypothyroidism Unspecified hypothyroidism Episodic cluster headache, not intractable Episodic cluster headache BPH with obstruction/lower urinary tract symptoms Hypertrophy of prostate with urinary obstruction and other lower urinary tract symptoms (LUTS) documented in this encounter [facility] note* Diagnosis Episodic cluster headache, not intractable- Primary Episodic cluster headache documented in this encounter [facility] note* Diagnosis Difficulty sleeping- Primary Sleep disturbance, unspecified documented in this encounter [facility] note* Diagnosis URI, acute- Primary Acute upper respiratory infections of unspecified site documented in this encounter [facility] noteNo assessment information availableWAvita Health System Work Phone: Evaluation note* Diagnosis Episodic cluster headache, not intractable Episodic cluster headache documented in this encounter [facility] note* Diagnosis Episodic cluster headache, not intractable- Primary Episodic cluster headache documented in this encounter [facility] note* Diagnosis BPH without obstruction/lower urinary tract symptoms- Primary Hypertrophy of prostate without urinary obstruction and other lower urinary tract symptoms (LUTS) documented in this encounter [facility]* Diagnosis Acquired hypothyroidism- Primary Unspecified hypothyroidism Medicare annual wellness visit, subsequent Routine general medical examination at a health care facility documented in this encounter [facility] note* Diagnosis Episodic cluster headache, not intractable Episodic cluster headache documented in this encounter [facility] note* Diagnosis Medicare annual wellness visit, subsequent- Primary Routine general medical examination at a health care facility Acquired hypothyroidism Unspecified hypothyroidism Episodic cluster headache, not intractable Episodic cluster headache Encounter for immunization Need for other specified prophylactic vaccination against single bacterial disease Screening for depression Encounter for screening examination for other mental health and behavioral disorders documented in this encounter [facility] note* Diagnosis Episodic cluster headache, not intractable- Primary Episodic cluster headache documented in this encounter [facility] note* Diagnosis Episodic cluster headache, not intractable- Primary Episodic cluster headache documented in this encounter [facility] note* Diagnosis Primary hypertension- Primary Unspecified essential hypertension documented in this encounter [facility] note* Diagnosis Primary hypertension- Primary Unspecified essential hypertension documented in this encounter [facility] note* Diagnosis Acquired hypothyroidism- Primary Unspecified hypothyroidism Primary hypertension Unspecified essential hypertension documented in this encounter [facility] note* Diagnosis Acquired hypothyroidism- Primary Unspecified hypothyroidism Primary hypertension Unspecified essential hypertension Encounter for Medicare annual wellness exam Routine general medical examination at a [facility] Episodic cluster headache, not intractable Episodic cluster headache Benign prostatic hyperplasia without lower urinary tract symptoms documented in this encounter [facility] note* Diagnosis BPH without obstruction/lower urinary tract symptoms- Primary Hypertrophy of prostate without urinary obstruction and other lower urinary tract symptoms (LUTS) Screening for genitourinary condition Screening for other and unspecified genitourinary condition documented in this encounter [facility] for referral (narrative)* Outpatient Procedure (Routine) - Pending Review Specialty Diagnoses / Procedures Referred By Juventino gtz [facility] Diagnoses Episodic cluster headache, not intractable Procedures ECG COMPLETE ECG ROUTINE ECG W/LEAST 12 LDS W/I&R Snow Brooks, THORACIC MEDICINE SPECIALIST.TOOL SUPERVISOR [address] [place] [address] [facility] [place] [address] [place] [address] Referral ID Status Reason Start Date Expiration Date Visits Requested Visits Authorized [id number] Pending Review Auto-Generat ed Referral 01/08/2022 01/08/2023 1 1 [facility] for referral (narrative)* Outpatient Procedure (Routine) - Pending Review Specialty Diagnoses / Procedures Referred By Contac t Referred To Contact [facility] Diagnoses Episodic cluster headache, not intractable Procedures ECG COMPLETE ECG ROUTINE ECG W/LEAST 12 LDS W/I&R Snow Brooks APRN.CNP [address] [place] [address] [facility] [address] [place] [id number] Referral ID Status Reason Start Date Expiration Date Visits Requested Visits Authorized [id number] Pending Review Auto-Generat ed Referral 01/21/2023 01/21/2024 1 1 [facility] for referral (narrative)* Outpatient Procedure (Routine) - New Request Specialty Diagnoses / Procedures Referred By Contac t Referred To Contact [facility] Diagnoses Episodic cluster headache, not intractable Procedures ECG COMPLETE ECG ROUTINE ECG W/LEAST 12 LDS W/I&R Snow Brooks APRN.CNP [address] [place] [address] [facility] [address] [place] [address] Referral ID Status Reason Start Date Expiration Date Visits Requested Visits Authorized [id number] New Request Auto-Generat ed Referral 12/09/2023 12/08/2024 1 1 [facility] Summary Purpose Family History No Family History Records FoundNo Family History Records FoundNo Family History Records FoundNo Family History Records Found Advance Directives No Advanced Directives Records FoundDocuments on File Type Date Recorded Patient Hydrologic Modeler Expl anation Advance Directive(s) 01/20/2018 7:56 AM Advance Directive(s) 06/09/2013 12:43 PM Advance Directive(s) 11/24/2007 12:00 AM Documents on File Type Date Recorded Patient Hydrologic Modeler Expl anation Advance Directive(s) 06/09/2013 12:43 PM Advance Directive(s) 11/24/2007 Documents on File Type Date Recorded Patient Hydrologic Modeler Expl anation Advance Directive(s) 06/09/2013 12:43 PM Advance Directive(s) 11/24/2007 Advance Directive Response Recorded Date/ Time Living Will No July 14, 2023 9:28am Power of Early Childhood Specialist No July 13 9:28am Reason for Referral Specialty Diagnoses / Procedures Referred By Contac t Referred To Contact Urology Diagnoses BPH with obstruction/lower urinary tract symptoms Procedures CONSULT TO UROLOGY OFFICE/OUTPATIENT [facility] 60-74 MINUTES Zeeshan Mahmood APRN.TOOL SUPERVISOR [address] [place] [address] Referral ID Status Reason Start Date Expiration Date Visits Requested Visits Authorized [id number] Pending Review PCP Requested Referral 01/19/2022 01/19/2023 1 1 Health Concerns Infection Onset Date Last Indicated Resolved Time COVID-19 Rule-Out 03/27/2023 03/27/2023 Chief Complaint and Reason for Visit Chief Complaint nosebleed Additional Source Comments (unrecognized sect ion and content) No Status Records FoundNo Status Records FoundNo Status Records FoundNo Status Records Found INFORMATION SOURCE (unrecogn ized section and content) DATE CREATED AUTHOR 02/03/2019 [facility] DATE CREATED AUTHOR AUTHOR'S ORGANIZ ATION 02/27/2025 [facility] DATE CREATED AUTHOR AUTHOR'S ORGANIZ ATION 03/03/2025 [facility] DATE CREATED AUTHOR AUTHOR'S ORGANIZ ATION 03/04/2025 [facility] Source Comments (unrecognize d section and content) In the event this informatio n is protected by the Federal Confidentiality of Alcohol and Drug Abuse Patient Records regulations: The Federal rules restrict any use of the information to criminally investigate or prosecute any alcohol or drug abuse patient.[facility] the event this information is protected by the Federal Confidentiality of Alcohol and Drug Abuse Patient Records regulations: The Federal rules restrict any use of the information to criminally investigate or prosecute any alcohol or drug abuse patient.[facility] CenterIn the event this information is protected by the Federal Confidentiality of Alcohol and Drug Abuse Patient Records regulations: The Federal rules restrict any use of the information to criminally investigate or prosecute any alcohol or drug abuse patient.[facility] CenterIn the event this information is protected by the Federal Confidentiality of Alcohol and Drug Abuse Patient Records regulations: The Federal rules restrict any use of the information to criminally investigate or prosecute any alcohol or drug abuse patient.[facility] CenterIn the event this information is protected by the Federal Confidentiality of Alcohol and Drug Abuse Patient Records regulations: The Federal rules restrict any use of the information to criminally investigate or prosecute any alcohol or drug abuse patient.[facility] Center[facility] the event this information is protected by the Federal Confidentiality of Alcohol and Drug Abuse Patient Records regulations: The Federal rules restrict any use of the information to criminally investigate or prosecute any alcohol or drug abuse patient.[facility] CenterIn the event this information is protected by the Federal Confidentiality of Alcohol and Drug Abuse Patient Records regulations: The Federal rules restrict any use of the information to criminally investigate or prosecute any alcohol or drug abuse patient.[facility] CenterIn the event this information is protected by the Federal Confidentiality of Alcohol and Drug Abuse Patient Records regulations: The Federal rules restrict any use of the information to criminally investigate or prosecute any alcohol or drug abuse patient.[facility] CenterIn the event this information is protected by the Federal Confidentiality of Alcohol and Drug Abuse Patient Records regulations: The Federal rules restrict any use of the information to criminally investigate or prosecute any alcohol or drug abuse patient.[facility] CenterIn the event this information is protected by the Federal Confidentiality of Alcohol and Drug Abuse Patient Records regulations: The Federal rules restrict any use of the information to criminally investigate or prosecute any alcohol or drug abuse patient.[facility] CenterIn the event this information is protected by the Federal Confidentiality of Alcohol and Drug Abuse Patient Records regulations: The Federal rules restrict any use of the information to criminally investigate or prosecute any alcohol or drug abuse patient.[facility] CenterIn the event this information is protected by the Federal Confidentiality of Alcohol and Drug Abuse Patient Records regulations: The Federal rules restrict any use of the information to criminally investigate or prosecute any alcohol or drug abuse patient.[facility] CenterIn the event this information is protected by the Federal Confidentiality of Alcohol and Drug Abuse Patient Records regulations: The Federal rules restrict any use of the information to criminally investigate or prosecute any alcohol or drug abuse patient.[facility] CenterIn the event this information is protected by the Federal Confidentiality of Alcohol and Drug Abuse Patient Records regulations: The Federal rules restrict any use of the information to criminally investigate or prosecute any alcohol or drug abuse patient.[facility] CenterIn the event this information is protected by the Federal Confidentiality of Alcohol and Drug Abuse Patient Records regulations: The Federal rules restrict any use of the information to criminally investigate or prosecute any alcohol or drug abuse patient.[facility] CenterIn the event this information is protected by the Federal Confidentiality of Alcohol and Drug Abuse Patient Records regulations: The Federal rules restrict any use of the information to criminally investigate or prosecute any alcohol or drug abuse patient.[facility] CenterIn the event this information is protected by the Federal Confidentiality of Alcohol and Drug Abuse Patient Records regulations: The Federal rules restrict any use of the information to criminally investigate or prosecute any alcohol or drug abuse patient.[facility] CenterIn the event this information is protected by the Federal Confidentiality of Alcohol and Drug Abuse Patient Records regulations: The Federal rules restrict any use of the information to criminally investigate or prosecute any alcohol or drug abuse patient.[facility] CenterIn the event this information is protected by the Federal Confidentiality of Alcohol and Drug Abuse Patient Records regulations: The Federal rules restrict any use of the information to criminally investigate or prosecute any alcohol or drug abuse patient.[facility] CenterIn the event this information is protected by the Federal Confidentiality of Alcohol and Drug Abuse Patient Records regulations: The Federal rules restrict any use of the information to criminally investigate or prosecute any alcohol or drug abuse patient.[facility] CenterIn the event this information is protected by the Federal Confidentiality of Alcohol and Drug Abuse Patient Records regulations: The Federal rules restrict any use of the information to criminally investigate or prosecute any alcohol or drug abuse patient.[facility] CenterIn the event this information is protected by the Federal Confidentiality of Alcohol and Drug Abuse Patient Records regulations: The Federal rules restrict any use of the information to criminally investigate or prosecute any alcohol or drug abuse patient.[facility] CenterIn the event this information is protected by the Federal Confidentiality of Alcohol and Drug Abuse Patient Records regulations: The Federal rules restrict any use of the information to criminally investigate or prosecute any alcohol or drug abuse patient.[facility] CenterIn the event this information is protected by the Federal Confidentiality of Alcohol and Drug Abuse Patient Records regulations: The Federal rules restrict any use of the information to criminally investigate or prosecute any alcohol or drug abuse patient.[facility] CenterIn the event this information is protected by the Federal Confidentiality of Alcohol and Drug Abuse Patient Records regulations: The Federal rules restrict any use of the information to criminally investigate or prosecute any alcohol or drug abuse patient.[facility] CenterIn the event this information is protected by the Federal Confidentiality of Alcohol and Drug Abuse Patient Records regulations: The Federal rules restrict any use of the information to criminally investigate or prosecute any alcohol or drug abuse patient.[facility] CenterIn the event this information is protected by the Federal Confidentiality of Alcohol and Drug Abuse Patient Records regulations: The Federal rules restrict any use of the information to criminally investigate or prosecute any alcohol or drug abuse patient.[facility] CenterIn the event this information is protected by the Federal Confidentiality of Alcohol and Drug Abuse Patient Records regulations: The Federal rules restrict any use of the information to criminally investigate or prosecute any alcohol or drug abuse patient.[facility] CenterIn the event this information is protected by the Federal Confidentiality of Alcohol and Drug Abuse Patient Records regulations: The Federal rules restrict any use of the information to criminally investigate or prosecute any alcohol or drug abuse patient.[facility] CenterIn the event this information is protected by the Federal Confidentiality of Alcohol and Drug Abuse Patient Records regulations: The Federal rules restrict any use of the information to criminally investigate or prosecute any alcohol or drug abuse patient.[facility] CenterIn the event this information is protected by the Federal Confidentiality of Alcohol and Drug Abuse Patient Records regulations: The Federal rules restrict any use of the information to criminally investigate or prosecute any alcohol or drug abuse patient.[facility] CenterIn the event this information is protected by the Federal Confidentiality of Alcohol and Drug Abuse Patient Records regulations: The Federal rules restrict any use of the information to criminally investigate or prosecute any alcohol or drug abuse patient.[facility] CenterIn the event this information is protected by the Federal Confidentiality of Alcohol and Drug Abuse Patient Records regulations: The Federal rules restrict any use of the information to criminally investigate or prosecute any alcohol or drug abuse patient.[facility] CenterIn the event this information is protected by the Federal Confidentiality of Alcohol and Drug Abuse Patient Records regulations: The Federal rules restrict any use of the information to criminally investigate or prosecute any alcohol or drug abuse patient.[facility] CenterIn the event this information is protected by the Federal Confidentiality of Alcohol and Drug Abuse Patient Records regulations: The Federal rules restrict any use of the information to criminally investigate or prosecute any alcohol or drug abuse patient.[facility] CenterIn the event this information is protected by the Federal Confidentiality of Alcohol and Drug Abuse Patient Records regulations: The Federal rules restrict any use of the information to criminally investigate or prosecute any alcohol or drug abuse patient.[facility] Care Teams (unrecognized sec tion and content) Surgeon/President Relationship Specialty Start Date End Date Jeremias Damico MD [address] [place] [address] PCP - General Family Practice 04/27/15 Surgeon/President Relationship Specialty Start Date End Date Jeremias Damico MD [address] [place] [address] PCP - General Family Practice 04/27/15 Surgeon/President Relationship Specialty Start Date End Date Jeremias Damico MD [address] [place] [address] PCP - General Family Practice 04/27/15 Surgeon/President Relationship Specialty Start Date End Date Jeremias Damico MD [facility] [address] PCP - General Family Practice 04/27/15 Surgeon/President Relationship Specialty Start Date End Date Jeremias Damico MD [facility] [place] [address] PCP - General Family Medicine 04/27/15 Surgeon/President Relationship Specialty Start Date End Date Jeremias Damico MD [facility] [place] [address] PCP - General Family Medicine 04/27/15 Surgeon/President Relationship Specialty Start Date End Date Jeremias Damico MD [facility] [place] [address] PCP - General Family Medicine 04/27/15 Surgeon/President Relationship Specialty Start Date End Date Jeremias Damico MD [address] [place] [address] [place] [address] PCP - General Family Medicine 04/27/15 Surgeon/President Relationship Specialty Start Date End Date Jeremias Damico MD [address] [place] [address] PCP - General Family Medicine 04/27/15 Surgeon/President Relationship Specialty Start Date End Date Jeremias Damico MD [address] [place] [address] PCP - General Family Medicine 04/27/15 Surgeon/President Relationship Specialty Start Date End Date Jeremias Damico MD [address] [place] [address] PCP - General Family Medicine 04/27/15 Surgeon/President Relationship Specialty Start Date End Date Jeremias Damico MD [address] [place] [address] PCP - General Family Medicine 04/27/15 Surgeon/President Relationship Specialty Start Date End Date Jeremias Damico MD [address] [place] [address] PCP - General Family Medicine 04/27/15 Surgeon/President Relationship Specialty Start Date End Date Jeremias Damico MD [address] [place] [address] PCP - General Family Medicine 04/27/15 Surgeon/President Relationship Specialty Start Date End Date Jeremias Dmaico MD [address] [place] [address] PCP - General Family Medicine 04/27/15 Surgeon/President Relationship Specialty Start Date End Date Jeremias Damico MD [address] [place] [address] PCP - General Family Medicine 04/27/15 Surgeon/President Relationship Specialty Start Date End Date Jeremias Damico MD [address] [place] [address] PCP - General Family Medicine 04/27/15 Surgeon/President Relationship Specialty Start Date End Date Jeremias Damico MD [address] [place] [address] PCP - General Family Medicine 04/27/15 Team Status: Active Member Role Status Dates Dr. Jeremias Damico MD Family Provider Active Dr. Jeremias Damico MD Primary Care Provider Active Team Status: Inactive Member Role Status Dates Dr. Jeremias Damico MD Primary Care Provider Active Dr. Salomon Marquez MD Emergency Provider Active Surgeon/President Relationship Specialty Start Date End Date Jeremias Damico MD [address] [place] [address] PCP - General Family Medicine 04/27/15 Surgeon/President Relationship Specialty Start Date End Date Jeremias Damico MD [address] [place] [address] PCP - General Family Medicine 04/27/15 Surgeon/President Relationship Specialty Start Date End Date Jeremias Damico MD [address] [place] [address] PCP - General Family Medicine 04/27/15 Surgeon/President Relationship Specialty Start Date End Date Jeremias Damico MD [address] [place] [address] PCP - General Family Medicine 04/27/15 Surgeon/President Relationship Specialty Start Date End Date Jeremias Damico MD [address] [facility] [place] [address] PCP - General Family Medicine 04/27/15 Surgeon/President Relationship Specialty Start Date End Date Jeremias Damico MD [address] [place] [address] PCP - General Family Medicine 04/27/15 Surgeon/President Relationship Specialty Start Date End Date Jeremias Damico MD [address] [facility] [place] [address] PCP - General Family Medicine 04/27/15 Diana Shook, NIDHI.TOOL SUPERVISOR [address] [facility] [place] [address] [employer] Family Medicine 03/29/24 Zeeshan Mahmood THORACIC MEDICINE SPECIALIST.TOOL SUPERVISOR [address] [facility] [place] [address] [employer] Family Medicine 04/07/24 Surgeon/President Relationship Specialty Start Date End Date Jeremias Damico MD [address] [facility] [place] [address] PCP - General Family Medicine 04/27/15 Diana Shook THORACIC MEDICINE SPECIALIST.TOOL SUPERVISOR [address] [facility] [place] [address] [employer] Family Medicine 03/29/24 Zeeshan Mahmood THORACIC MEDICINE SPECIALIST.TOOL SUPERVISOR [address] [facility] [place] [address] [employer] Family Medicine 04/07/24 Surgeon/President Relationship Specialty Start Date End Date Jeremias Damico MD [address] [facility] [place] [address] PCP - General Family Medicine 04/27/15 Diana Shook, THORACIC MEDICINE SPECIALIST.TOOL SUPERVISOR [address] [place] [address] [employer] Family Medicine 03/29/24 Zeeshan Mahmood APRN.TOOL SUPERVISOR [address] [facility] [place] [address] [employer] Family Medicine 04/07/24 Surgeon/President Relationship Specialty Start Date End Date Jeremias Damico MD [address] [place] [address] PCP - General Family Medicine 04/27/15 Zeeshan Mahmood, THORACIC MEDICINE SPECIALIST.TOOL SUPERVISOR [address] [place] [address] [employer] Family Medicine 04/07/24 Surgeon/President Relationship Specialty Start Date End Date Jeremias Damico MD [address] [place] [address] PCP - General Family Medicine 04/27/15 Zeeshan Mahmood, THORACIC MEDICINE SPECIALIST.TOOL SUPERVISOR [address] [place] [address] [employer] Family Medicine 04/07/24 Surgeon/President Relationship Specialty Start Date End Date Jeremias Damico MD [address] [place] [address] PCP - General Family Medicine 04/27/15 Zeeshan Mahmood APRN.TOOL SUPERVISOR [address] [facility] [place] [address] [employer] Family Medicine 04/07/24 Surgeon/President Relationship Specialty Start Date End Date Jeremias Damico MD [address] [place] [address] PCP - General Family Medicine 04/27/15 Zeeshan Mahmood APRN.TOOL SUPERVISOR [address] [place] [address] [employer] Family Medicine 04/07/24 Reason for Visit (unrecogniz ed section and content) Reason Onset Date Comments Refill Request 10/09/2021 Reason Comments Orders Reason Comments Orders Lab work Reason Onset Date Comments Medicare Wellness Exam Immunizations 01/19/2022 Flu vaccination Reason Comments Consult Specialty Diagnoses / Procedures Referred By Juventino gtz Referred To Contact Urology Diagnoses BPH with obstruction/lower urinary tract symptoms Procedures CONSULT TO UROLOGY OFFICE/OUTPATIENT [facility] 60-74 MINUTES Zeeshan Mahmood APRN.TOOL SUPERVISOR [address] [place] [address] Referral ID Status Reason Start Date Expiration Date Visits Requested Visits Authorized [id number] Pending Review PCP Requested Referral 01/19/2022 01/19/2023 1 1 Reason Comments EKG Specialty Diagnoses / Procedures Referred By Juventino gtz Referred To Contact [facility] Diagnoses Episodic cluster headache, not intractable Procedures ECG COMPLETE ECG ROUTINE ECG W/LEAST 12 LDS W/I&R Snow Brooks, THORACIC MEDICINE SPECIALIST.TOOL SUPERVISOR [address] [place] [address] [facility] [address] [place] [address] Referral ID Status Reason Start Date Expiration Date V isits Requested Visits Authorized [id number] Closed Auto-Generate d Referral 01/08/2022 01/08/2023 1 1 Reason Comments Established Patient Follow Up Reason Comments Refill Request Reason Comments Follow Up Benign Prostatic Hypertrophy Erectile Dysfunction Reason Comments Orders Labs Reason Comments Established Patient Follow-Up Headache Reason Comments Medicare Wellness Exam Reason Comments Trouble sleeping No difficulty fallin g asleep but cannot stay asleep Reason Comments Cough X4 days. Reason Onset Date Comments Refill Request 09/02/2023 Reason Comments Orders Reason Comments Follow Up Referral ID Status Reason Start Date Expiration Date V isits Requested Visits Authorized [id number] Closed Auto-Generate d Referral 12/09/2023 12/08/2024 1 1 Reason Comments Established Patient Reason Onset Date Comments Population Health Navigation Outreach 08/18/2024 [facility] Reason Comments Blood Pressure Reason Comments Follow Up Blood pressure Reason Comments F/U 1 month BP Reason Comments Follow Up Benign Prostatic Hypertrophy Goals (unrecognized section and content) Goals may be documented in a n alternate section FOR RECORDS PERTAINING TO PATIENTS WHO ARE OR HAVE BEEN ENROLLED IN A CHEMICAL DEPENDENCY/SUBSTANCEABUSE PROGRAM, SOME INFORMATION MAY BE OMITTED. This clinical summary was aggregated from multiple sources. Caution should be exercised in using it in the provision of clinical care. This summary normalizes information from multiple sources, and as a consequence, information in this document may materially change the coding, format and clinical context of patient data. In addition, data may be omitted in some cases. CLINICAL DECISIONS SHOULD BE BASED ON THE PRIMARY CLINICAL RECORDS. [employer] [facility]. provides no warranty or guarantee of the accuracy or completeness of information in this document.
--- NOTE | 2025-03-19 16:57 | HP.PCM_ITS ---
[facility] - [facility] General Date of Admission: 03/19/25 Date of Service: 03/22/25 Chief Complaint: Here for rehabilitation. HPI Narrative ELSA ARMENDARIZ, is a 85 Male who presents with followin02/24/2025 [facility] ED shortness of breath. Dyspnea on exertion, resolves with rest, usually walks 4 blocks. New dyspnea on exertion, chest pain after walking 2 blocks. Recent Verapamil change from 80mg to 120mg extended release for cluster headache. Aspirin given, EKG non-specific st-t wave changes, troponin 210. Dr. Chau recommends Nitropaste 1 inch, Brilinta load, Heparin drip. 02/24/2025 Admit [facility]. Antiplatelet, Heparin, beta vance, NPO, prepare for heart catheterization for NSTEMI. Heart cath shows multi vessel disease. Transfer to [facility] for coronary revascularization. 02/25/2025 Admit [facility]. NPO, consult cardiothoracic surgery, Telemetry, Heparin drip for abnormal heart cath. 02/26/2025 No chest pain, No shortness of breath. Atrial fibrillation with slow ventricular response. 02/27/2025 Mild fatigue, nausea. Continue heparin, statin, beta vance, fluid/salt restriction. 03/02/2025 Dr. Iraheta performed cabg x 4. 03/03/2025 Sitting up in chair, ready to walk and get moving. Wean oxygen to pulsox 90%, Albuterol prn. PT/OT, OOB. 03/04/2025 Lying in bed, central line removed, went for walk. PT/OT, OOB, early ambulation. 03/05/2025 No calcium channel blockers, low dose Metoprolol if needed. Restart low dose Losartan. Amiodarone drip, Metoprolol 12.5mg po bid for atrial fibrillation. Lasix 20mg iv bid for acute HFpEF. 03/06/2025 SBP 180, increase Losartan, add Hydralazine PRN. Dysarthria, stroke alert, CT head, CTA head/neck negative. Chest tube 500cc output, continue chest tube. Continue diuresis for acute HFpEF with Lasix 20mg iv bid. 03/07/2025 Heparin for atrial fibrillation for stroke prevention. Not eaten for 7 days, bowel regimen for constipation. 03/08/2025 Nausea, positive bowel movement, poor appetite, tolerates medications and water. Small bites, PRN antiemetics for nausea, poor appetite. 03/09/2025 Feeling better, tolerates protein shakes, walking with staff. Atrial fibrillation, Amiodarone held, Eliquis started for stroke prevention. Hold NG, speech evaluation ordered. 03/11/2025 Corpak placed. 03/12/2025 Corpak placed for poor appetite. 03/13/2025 PT/OT recommended subacute/SNF. Continue TF via Corpak for poor appetite. 03/14/2025 Refused breakfast, only drank juice. Continue TF via Corpak. 03/15/2025 Finished Boost, asking for another, refused breakfast. Dry cough. Mirtazapine 7.5mg qhs for poor appetite, change TF to concentrated. 03/16/2025 Improved with Lasix. Dry cough, no sputum, +parainfluenza virus. Moderate left pleural effusion, atelectasis versus infiltrate. covid/flu/rsv negative. 03/19/2025 Admit to TCU with debility, here for rehabilitation, strengthening, prior to discharge home with . [facility] Medical History (Updated 03/19/25 @ 17:[address] Kirk Guevara MD) Hypertension Home Medications ?Medication ?Instructions ?Recorded ?Last Taken ?Type tamsulosin 0.4 mg capsule 0.8 mg PO QHS prostate 11/0307/14/23 History aspirin 81 mg tablet,delayed 81 mg PO BREAKFAST heart health #0 02/24/25 Unknown Rx release tabs atorvastatin 40 mg tablet 40 mg PO QHS cholesterol #0 tabs 02/24/25 Unknown Rx finasteride 5 mg tablet 5 mg PO QHS prostate 5 02/23/25 History levothyroxine 100 mcg tablet 100 mcg PO DAILY thyroid 02/24/25 02/24/25 History (Synthroid) losartan 100 mg tablet 75 mg PO QHS BP 02/24/2508/14 History melatonin 3 mg capsule 9 mg PO QHS sleep 02/24/25 1 04/25/24 History metoprolol tartrate 25 mg tablet 25 mg PO BID BP #0 ta bs 02/24/25 Unknown Rx multivit,Ca,min-iron 8 mg-folic 1 tab PO DAILY supplem ent 02/24/25 02/24/25 History acid 200 mcg-lycopene 600 mcg tablet (Men's Daily Multivitamin) verapamil 120 mg tablet,extended 120 mg PO QHS bp 11/0 09/13 Unknown History release acetaminophen 500 mg tablet 500 mg PO Q6H PRN pain 1-1 0 or 03/19/25 Unknown History fever albuterol sulfate 2.5 mg/3 mL 2.5 mg inhalation Q2H IA N 03/19/25 Unknown History (0.083 %) solution for nebulization shortness of breat h or wheezing apixaban 5 mg (74 tabs) tablets in 5 mg PO BID blood t hinner 03/19/25 Unknown History a dose pack furosemide 40 mg tablet (Lasix) 40 mg PO DAILY water r etention 03/19/25 Unknown History guaifenesin 600 mg tablet, 600 mg PO BID congestion Unknown History extended release 12 hr (Mucinex) insulin lispro 100 unit/mL 1 unit subcut ACHS diabetes 03/19/25 Unknown History subcutaneous pen (Humalog KwikPen (U-100) Insulin) ipratropium 0.5 mg-albuterol 3 mg 3 ml inhalation TID lungs 03/19/25 Unknown History (2.5 mg base)/3 mL nebulization soln lidocaine 4 % topical patch 1 patch topical Q24H pain 03/19/25 Unknown History mirtazapine 7.5 mg tablet 7.5 mg PO QHS sleep 03/19/25 Unknown History ondansetron HCl 4 mg/5 mL oral 4 mg PO Q6H PRN nausea and vomiting 03/19/25 Unknown History solution pantoprazole 40 mg tablet,delayed 40 mg PO DAILY acid reflux 03/19/25 Unknown History release polyethylene glycol 3350 17 gram 17 g PO DAILY bowels 03/19/25 Unknown History oral powder packet (Miralax) sennosides 8.6 mg-docusate sodium 2 tab-cap PO DAILY c onstipation 03/19/25 Unknown History 50 mg tablet (Senna with Docusate Sodium) Allergy/AdvReac Type Severity Reaction Status Date / Time Penicillins Allergy NEEDS Verified 02/24/25 07:51 FOLLOW-UP fermented products Allergy NEEDS Uncoded 11/04/19 10:09 FOLLOW-UP Family History (Updated 03/19/25 @ 17:[address] Kirk Guevara MD) Mother Congestive heart failure Father Colon cancer Surgical History (Updated 03/19/25 @ 17:[address] Kirk Guevara MD) History of hand surgery History of left breast biopsy History of colonoscopy History of meniscectomy of left knee Social History (Updated 03/19/25 @ 17:[address] Kirk Guevara MD) household members: spouse Smoking Status: Former smoker alcohol intake: never substance use type: does not use ROS Constitutional Constitutional: Denies chills, fever(s) or weight gain ENT HEENT: Denies headache(s), nasal congestion or nasal discharge Cardiovascular Cardiovascular: Denies chest pain or palpitations Respiratory/Chest Respiratory/Chest: Denies cough, excessive phlegm production or shortness of breath with exertion Gastrointestinal Gastrointestinal: Denies abdominal pain, nausea or vomiting Genitourinary Genitourinary: Denies dysuria Musculoskeletal Musculoskeletal: Denies joint pain or joint swelling Integumentary Integumentary: Denies rash or wounds Neurologic Neurologic: Denies focal weakness, numbness or tingling Psychiatric Psychiatric: Denies anxiety, auditory hallucinations, depression, homicidal ideation or suicidal ideation Vital Signs Vital Signs Vital Signs: 03/19/25 15:04 03/19/25 15:11 Temperature 96.1 F L 96.1 F L Temperature Source Temporal Temporal Pulse Rate 79 79 Respiratory Rate 14 14 Blood Pressure 111/62 111/62 Blood Pressure Mean 78 78 Blood Pressure Source Manual Manual Blood Pressure Position Semi-Fowlers Semi-Fowlers Blood Pressure Location Left Arm Left Arm Pulse Ox 98 98 Oxygen Delivery Method Room Air Room Air Physical Exam Const alert General Appearance: cooperative HEENT normocephalic Eyes PERRL and EOMs intact bilaterally Neck supple, no JVD and no carotid bruits Resp normal respiratory effort, normal air movement and clear to auscultation bilaterally Cardio regular rate and regular rhythm GI normal to inspection, nondistended, normoactive bowel sounds, non-tender and non-distended Extremity normal capillary refill General Extremity: Negative for edema Skin no rashes or lesions noted General Skin Exam: no breakdown Psych affect normal Appearance: appropriate Results Lab / Micro Data 03/22/25 05:14 03/20/25 06:20 Assessment & Plan Assessment/Plan (1) Debility: (2) NSTEMI (non-ST elevated myocardial infarction): (3) Status post four vessel coronary artery bypass: (4) Coronary artery disease: (5) Atrial fibrillation: (6) Acute heart failure with preserved ejection fraction (HFpEF): (7) Essential (primary) hypertension: (8) BPH (benign prostatic hyperplasia): (9) Hyperlipidemia: (10) Hypothyroidism: (11) Insomnia: (12) Cluster headache: (13) Parainfluenza infection: PLAN: Plan 85 year old male with below past medical history hospitalized for nstemi, multivessel coronary artery disease, underwent cabg x 4 03/02/[address] Iraheta, postoperative course complicated by atrial fibrillation, acute hfpef, parainfluenza infection, loss of appetite, admitted to TCU with debility, here for rehabilitation, strengthening, prior to discharge home with . * Debility - PT/OT. * Pain - Tylenol 1000mg q6 prn pain (1-10), Lidoderm 1 patch td daily. * Bowel - Miralax 17gm daily, senna/colace 2 tablets bid, Magnesium citrate 300mL po x 1 prn. * Adult immunization - Administer pneumonia vaccine, covid vaccine, flu vaccine as appropriate. * DVT prophylaxis - Eliquis. * Anemia - Hemoccult +, monitor H&H for now, transfuse if necessary. * Parainfluenza infection - Mucinex 600mg bid thru 03/21/2025, Duoneb 3ml neb tid, Albuterol 2.5mg q2h prn. * Atrial fibrillation - Metoprolol 25mg bid, Eliquis 5mg bid. * Hyperlipidemia - Atorvastatin 40mg qhs. * Coronary artery disease s/p cabg x 4 - Metoprolol 25mg bid, Losartan 75mg qhs, Eliquis 5mg bid, Aspirin 81mg daily. * BPH - Finasteride 5mg daily, Tamsulosin 0.8mg qhs. * Acute HFpEF - Metoprolol 25mg bid, Losartan 75mg qhs, Furosemide 40mg daily thru 03/27/2025. * Diabetes Mellitus II - Glucagon 1mg im x 1 prn hypoglycemia. * Hypothyroidism - Levothyroxine 100mcg daily. * Nutrition - MVI 1 tablet daily. * Nausea - Zofran odt 4mg q6 prn. * GERD - Pantoprazole 40mg daily. The following psychotropic medication was present on admission: Mirtazapine 7.5mg qhs. Psychotropic medication therapy is indicated for a diagnosis of: Appetite loss/depression/insomnia. Based on my clinical evaluation, continuation of the medication is necessary at this time. Gradual dose reduction plan (select one): ____ GDR will be attempted. Will monitor patient symptoms and behaviors in response to GDR. __x__ GRD contraindicated. Reason contraindicated: stable short term use. The following psychotropic medication is being started or the dose in being increased: Doxepin 10mg qhs. Psychotropic medication therapy is indicated for a diagnosis of: Insomnia. In my professional judgement, medication is necessary because the resident?s symptoms cause significant distress to the resident or a danger to the resident or others. Evaluation for underlying causes including medical illness and pain has been considered. The benefits of the medication are felt to outweigh potential harm. Nonpharmacologic/behavior interventions have been attempted but have not been effective or nonpharmacologic interventions are contraindicated for this patient. Potential benefits and risks of treatment and alternatives have been reviewed with resident/family and the resident/family have accepted psychotropic medication treatment. Please see nursing documentation.
[2025-03-19 22:22] VITALS: BP 111/77; PULSE 105
[2025-03-19] MEDS: MELATONIN 3 MG TABLET 9 MG PO (22:24)
[2025-03-19 22:25] VITALS: PULSE 105
[2025-03-19] MEDS: APIXABAN 5 MG TABLET PO (22:26)
[2025-03-19] MEDS: Senna/Docusate Sodium 1 Tablet 2 TABLET PO (22:30)
[2025-03-20] VITALS (7 sets, daily range): BP systolic 145–177; BP diastolic 77–82; PULSE 70–91; RESP 16–19; TEMP 36.6; O2SAT 94–98; BMI 25.2
[2025-03-20 07:07] LABS: Hematocrit 28.1 % (40-54); Hemoglobin 9.4 g/dL (13.0-16.5); Immature Granulocytes Count 0.080 X10^3/uL (0.0-0.0); Mean Corp Hgb Conc 33.5 g/dL (32-36); Mean Corpuscular Volume 94.9 fL (80-94); Mean Platelet Vol. 10.4 fl (6.2-12.0); NRBC Flagged by Analyzer 0 % (0-5); Platelet Count 314 K/mm3 (150-450); RBC Distribution Width CV 13.7 % (11.6-14.6); RBC Distribution Width SD 48.1 fl (35.1-43.9); Red Blood Count 2.96 M/mm3 (4.6-6.2); White Blood Count 11.0 K/mm3 (4.4-11.0)
[2025-03-20 07:40] LABS: Anion Gap 7 (5-15); BUN 29 mg/dL (4-19); BUN/Creat Ratio 28.1 RATIO (10-20); Calcium,Total 8.8 mg/dL (7.6-11.0); Carbon Dioxide 26.7 mmol/L (21.0-32.0); Chloride 100 mmol/L (98-108); Estimated Creatinine Clearance 53.62 ml/min (50-250); Glucose 128 mg/dL (70-99); Potassium 4.7 mmol/L (3.3-5.1)
[2025-03-20] MEDS: Lidocaine 5% Patch 1 PATCH TOPICAL (09:36)
[2025-03-20] MEDS: Aspirin E.C. 81 MG Tablet PO (09:37)
[2025-03-20] MEDS: APIXABAN 5 MG TABLET PO ×2 (09:39→21:40)
[2025-03-20] MEDS: Tuberculin,Purif.prot.deriv. 50 TU/ML Vial 0.1 ML ID (13:12)
--- NOTE | 2025-03-20 13:17 | NURSING ---
All care provided in room d/t isolation precautions.
--- NOTE | 2025-03-20 17:01 | NURSING ---
Dr. Guevara updated that pt is having difficulty sleeping and Melatonin is not effective. N.O. received to discontinue Melatonin and add Doxepin 10mg QHS. Pt also has Corpak in right nares and not receiving tube feed N.O. received to Discontinue Corpak. Orders read back.
--- NOTE | 2025-03-20 21:35 | NURSING ---
NG tube removed per order, tip intact. Pt tolerated well. Pt resting with eyes closed. Call light and personal belongings within reach.
[2025-03-20] MEDS: Doxepin Hydrochloride 10 MG Capsule PO (21:45)
[2025-03-21 06:23] VITALS: BMI 25.2
[2025-03-21 06:34] VITALS: PULSE 79; RESP 18; O2SAT 95
[2025-03-21 06:50] LABS: Hematocrit 27.4 % (40-54); Hemoglobin 9.0 g/dL (13.0-16.5)
[2025-03-21] MEDS: APIXABAN 5 MG TABLET PO ×2 (10:16→20:01)
[2025-03-21] MEDS: Aspirin E.C. 81 MG Tablet PO (10:16)
[2025-03-21] MEDS: Senna/Docusate Sodium 1 Tablet 2 TABLET PO ×2 (10:18→20:07)
[2025-03-21 10:24] VITALS: PULSE 101
[2025-03-21 10:35] VITALS: BP 115/79; PULSE 100; RESP 14; TEMP 37.2; O2SAT 93
[2025-03-21 20:00] VITALS: BP 109/76; PULSE 69; PULSE 93; RESP 16; RESP 18; O2SAT 93
[2025-03-21] MEDS: Ensure Plus High Protein 120 ML LIQUID PO (20:01)
[2025-03-21] MEDS: Doxepin Hydrochloride 10 MG Capsule PO (20:04)
[2025-03-21 20:13] VITALS: BP 109/76; PULSE 69
[2025-03-21 20:15] VITALS: PULSE 69; RESP 16; O2SAT 93
[2025-03-22] VITALS (7 sets, daily range): BP systolic 103–104; BP diastolic 63–74; PULSE 82–104; RESP 16–18; TEMP 36.6; O2SAT 92–98; BMI 25.1
[2025-03-22] MEDS: Ensure Plus High Protein 120 ML LIQUID PO ×4 (05:28→21:17)
[2025-03-22 05:42] LABS: Hematocrit 28.8 % (40-54); Hemoglobin 9.4 g/dL (13.0-16.5)
--- NOTE | 2025-03-22 08:12 | PCM.PN.DRR ---
Documented by User: oPlo Arrington 03/22/25 08:37 TCU RX Drug Regimen Review Subjective/Objective Subjective/Objective Subjective: TCU admission note. 85 year old male with below past medical history hospitalized for nstemi, multivessel coronary artery disease, underwent cabg x 4 03/02/[address] Iraheta, postoperative course complicated by atrial fibrillation, acute hfpef, parainfluenza infection, loss of appetite, admitted to TCU with debility, here for rehabilitation, strengthening, prior to discharge home with . Objective: Allergies Penicillins Allergy (Verified 02/24/25 07:51) NEEDS FOLLOW-UP fermented products Allergy (Uncoded 11/04/19 10:09) NEEDS FOLLOW-UP Current Medications Generic Name Dose Route Start Last Admin Trade Name Freq PRN Reason Stop Dose Admin Acetaminophen 1,000 mg 03/19/25 15:49 Acetaminophen 500 Mg Tablet PO Q6H PRN Pain 1-10 or Fever Albuterol Sulfate 2.5 mg 03/19/25 15:49 Albuterol 2.5 Mg/3 Ml Vial.Neb. INHALATION Q2H PRN shortness of breath or wheezing Albuterol/Ipratropium 3 ml 03/19/25 22:00 03/22/25 07:25 Ipratropium/Albuterol Sulfate 3 Ml Ampul.Neb INHALATION 3 ml TID.RT JOSÉ ANTONIO Administration Apixaban 5 mg 03/19/25 22:00 03/21/25 20:01 Apixaban 5 Mg Tablet PO 5 mg BID JOSÉ ANTONIO Administration Aspirin 81 mg 03/20/25 08:00 03/21/25 10:16 Aspirin E.C. 81 Mg Tablet PO 81 mg BREAKFAST JOSÉ ANTONIO Administration Atorvastatin Calcium 40 mg 03/19/25 22:00 03/21/25 20:15 Atorvastatin Calcium 40 Mg Tablet PO 40 mg QHS JOSÉ ANTONIO Administration Doxepin HCl 10 mg 03/20/25 22:00 03/21/25 20:04 Doxepin Hydrochloride 10 Mg Capsule PO 10 mg QHS JOSÉ ANTONIO Administration Finasteride 5 mg 03/19/25 22:00 03/21/25 20:02 Finasteride 5 Mg Tablet PO 5 mg QHS JOSÉ ANTONIO Administration Furosemide 40 mg 03/20/25 10:00 03/21/25 10:18 Furosemide 40 Mg Tablet PO 03/27/25 10:01 40 mg DAILY JOSÉ ANTONIO Administration Protocol Glucagon 1 mg 03/19/25 15:49 Glucagon 1 Mg/Ml Syringe IM X1 PRN Hypoglycemia Protocol Sodium Chloride 250 mls @ 15 mls/hr 03/19/25 15:21 IV .[id number] PRN Saline Flush Dextrose 250 mls @ 0 mls/hr 03/19/25 15:49 Dextrose 10%-Water IV .Q0M PRN HYPOGLYCEMIA Protocol As Directed Levothyroxine Sodium 100 mcg 03/20/25 06:00 03/22/25 05:28 Levothyroxine 100 Mcg Tablet PO 100 mcg DAILY@0600 JOSÉ ANTONIO Administration Lidocaine 1 patch 03/20/25 10:00 03/21/25 10:30 Lidocaine 5% Patch TOPICAL Not Given DAILY JOSÉ ANTONIO Losartan Potassium 75 mg 03/19/25 22:00 03/21/25 20:12 Losartan Potassium 50 Mg Tablet PO 75 mg QHS JOSÉ ANTONIO Administration Protocol Magnesium Citrate 300 ml 03/19/25 15:58 Magnesium Citrate 300 Ml PO X1 PRN Constipation Metoprolol Tartrate 25 mg 03/19/25 22:00 03/21/25 20:13 Metoprolol Tartrate 25 Mg Tablet PO 25 mg BID JOSÉ ANTONIO Administration Protocol Mirtazapine 7.5 mg 03/19/25 22:00 03/21/25 20:03 Mirtazapine 15 Mg Tablet PO 7.5 mg QHS JOSÉ ANTONIO Administration Multivitamins/Minerals 1 tablet 03/20/25 08:00 03/21/25 10:20 Multivitamins,Ther W-Minerals Tablet PO 1 tablet DAILYCM JOSÉ ANTONIO Administration Nutritional Formula (Lactose Free) 120 ml 03/21/25 22:00 03/22/25 05:28 Ensure Plus High Protein 120 Ml Liquid PO 120 ml 4X/DAY JOSÉ ANTONIO Administration Ondansetron HCl 4 mg 03/19/25 16:06 Ondansetron Odt 4 Mg Tablet PO Q6H PRN NAUSEA/VOMITING Pantoprazole Sodium 40 mg 03/20/25 10:00 03/21/25 10:17 Pantoprazole Sodium 40 Mg Tablet PO 40 mg DAILY JOSÉ ANTONIO Administration Polyethylene Glycol 17 gm 03/20/25 10:00 03/21/25 10:24 Polyethylene Glycol 3350 17 Gm Packet PO Not Given DAILY JOSÉ ANTONIO Senna/Docusate Sodium 2 tablet 03/19/25 22:00 03/21/25 20:07 Senna/Docusate Sodium 1 Tablet PO 2 tablet BID JOSÉ ANTONIO Administration Sodium Chloride 10 - 40 ml 03/19/25 15:21 0.9% Saline Lock 10 Ml Syringe IV UD PRN SALINE FLUSH Tamsulosin HCl 0.8 mg 03/19/25 22:00 03/21/25 20:01 Tamsulosin Hcl 0.4 Mg Capsule PO 0.8 mg QHS JOSÉ ANTONIO Administration Tuberculin PPD 0.1 ml 03/27/25 10:00 Tuberculin,Purif.Prot.Deriv. 50 Tu/Ml Vial ID 03/27/25 10:01 X1 ONE Problem List Parainfluenza infection (Acute) Cluster headache (Acute) Insomnia (Acute) Hypothyroidism (Acute) Hyperlipidemia (Acute) BPH (benign prostatic hyperplasia) (Acute) Essential (primary) hypertension (Acute) Acute heart failure with preserved ejection fraction (HFpEF) (Acute) Atrial fibrillation (Acute) Coronary artery disease (Acute) Status post four vessel coronary artery bypass (Acute) NSTEMI (non-ST elevated myocardial infarction) (Acute) Debility (Acute) Vital Signs Temp Pulse Resp BP Pulse Ox O2 Del Method 98.9 F 91 18 109/76 92 Room Air 03/21/25 10:35 03/22/25 07:49 03/22/25 07:49 03/21/25 20:13 03/22/25 06:16 03/22/25 07:49 Oxygen Delivery Method Room Air Weight: 79.56 kg Body Mass Index (BMI) 25.1 Sodium 133 mmol/L (133-145) 03/20/25 06:20 Potassium 4.7 mmol/L (3.3-5.1) 03/20/25 06:20 Chloride 100 mmol/L (98-108) 03/20/25 06:20 Carbon Dioxide 26.7 mmol/L (21.0-32.0) 03/20/25 06:20 Anion Gap 7 (5-15) 03/20/25 06:20 BUN 29 mg/dL (4-19) H 03/20/25 06:20 Creatinine 1.04 mg/dL (0.70-1.20) 03/20/25 06:20 Est GFR (MDRD) Non-Af 70 (>60) 03/20/25 06:20 BUN/Creatinine Ratio 28.1 RATIO (10-20) H 03/20/25 06:20 Glucose 128 mg/dL (70-99) H 03/20/25 06:20 Assessment/Plan: 1. Pain: acetaminophen 1000 mg PO Q6H PRN pain (1-10), lidocaine 5% 1 patch topically daily. The patient has not required any PRN doses of acetaminophen so far this admission. Please continue to monitor pain levels, for PRN medication usage, LFTs (no recent LFTs documented), and for local skin irritation on lidocaine patch application site. 2. Bowel: polyethylene glycol 17 grams PO daily, senna/docusate 2 tablets PO BID, magnesium citrate 300 mL PO daily PRN constipation. The patient has not required any PRN doses of magnesium citrate so far this admission. Please continue to monitor for PRN medication usage, bowel movements (last bowel movement= 03/22/25), and for constipation/diarrhea. 3. Parainfluenza infection: ipratropium/albuterol 1 nebulization TID, albuterol 2.5 mg nebulization Q2H PRN shortness of breath/wheezing. The patient has not required any PRN doses of albuterol so far this admission. Please continue to monitor for shortness of breath, for PRN medication usage, and respiratory rate (recent range = 14-18 breaths/min), as well as WBC counts (WBC = 11.0 K/mm3 on 03/20/25), and for fevers/chills (T = 98.9 F on ). 4. Atrial fibrillation/CAD s/p CABG x 4/Acute HFpEF: apixaban 5 mg PO BID, furosemide 40 mg PO daily through 03/27/25, losartan 75 mg PO QHS, metoprolol tartrate 25 mg PO BID, aspirin 81 mg PO daily. Please continue to monitor for chest pain, palpitations, shortness of breath, JVD, and lower extremity edema, as well as for s/s of bleeding/excessive bruising, for s/s of stroke, hemoglobin levels (Hgb = 9.4 g/dL on 03/22/25), platelet counts (Plt = 314 K/mm3 on 03/20/25), renal function (serum creatinine = 1.04 mg/dL with creatinine clearance ~ 54 mL/min on 03/20/25), for s/s of dehydration, sodium levels (Na = 133 mmol/L on 03/20/25), potassium levels (K = 4.7 mmol/L on 03/20/25), calcium levels (Ca = 8.8 mg/dL on 03/20/25), blood pressures (recent range = 109-177/62-82 mmHg), heart rates (recent range = 69-104 beats/min), for fatigue, and for gastric distress with aspirin administration. 5. BPH: finasteride 5 mg PO daily, tamsulosin 0.5 mg PO daily. Please continue to monitor urinary retention, urine stream, and for s/s of orthostasis. 6. Hyperlipidemia: atorvastatin 40 mg PO QHS. Please continue to monitor lipid levels (no recent lipid levels documented), LFTs (no recent LFTs documented), and for myalgias. 7. Diabetes Mellitus II - Glucagon 1mg im x 1 prn hypoglycemia. The patient has not required any PRN doses of glucagon so far this admission. Please continue to monitor blood glucose levels (BG = 128 mg/dL on 03/20/25), and for s/s of hypo/hyperglycemia. 8. Hypothyroidism: levothyroxine 100 mcg PO daily. Please continue to monitor thyroid hormone levels (no recent thyroid hormones documented), and for s/s of hypo/hyperthyroidism. 9. Nausea: ondansetron 4 mg PO Q6H PRN nausea. The patient has not required any PRN doses of ondansetron so far this admission. Please continue to monitor for PRN medication usage and for nausea/vomiting. 10. GERD: pantoprazole 40 mg PO daily. Please continue to monitor for s/s of GERD, for diarrhea that could indicate clostridium difficile infection as well as for s/s of bone resorption such as fractures. 11. Nutrition: multivitamin 1 tablet PO daily, ensure plus high protein 120 mL PO 4x/day. Please continue to monitor overall nutritional status. Assessment/Plan for indications treated with psychotropic medications: 1. Appetite loss/depression/insomnia: mirtazapine 7.5 mg PO QHS. Please see provider note regarding GDR contraindicated, stable short term use. Monitor for efficacy including resident symptoms, behaviors and indications of distress. Monitor for insomnia, depression, SI, and appetite. Monitor for tolerability including mental status, cognition, excessive sleepiness, withdrawal or decreased participation in activities and decline in physical functioning. Maximize use of nonpharmacologic/behavioral interventions to facilitate dose reduction or discontinuation as appropriate. Please evaluate the appropriateness of GDR unless contraindicated. If appropriate, GDR should be attempted in 2 separate quarters within the first year of use or admission to TCU. If GDR attempted, monitor resident symptoms/behaviors. Monitor for diarrhea, nausea, headache, anxiety or drowsiness, suicidal thoughts or behaviors (Boxed Warning), symptoms of bleeding, symptoms of serotonin syndrome (including agitation, confusion, hyperreflexia, rigidity/myoclonus, tremor, tachycardia, tachypnea), sodium levels (last Na = 133 mmol/L on 03/20/25). 2. Insomnia: doxepin 10 mg PO QHS. Monitor for efficacy including resident symptoms, behaviors and indications of distress. Monitor for insomnia and drowsiness. Monitor for tolerability including mental status, cognition, excessive sleepiness, withdrawal or decreased participation in activities and decline in physical functioning. Monitor for dizziness, lethargy and syncope. Maximize use of nonpharmacologic/behavioral interventions to facilitate dose reduction or discontinuation as appropriate. Please evaluate the appropriateness of GDR unless contraindicated. If appropriate, GDR should be attempted in 2 separate quarters within the first year of use or admission to TCU. If GDR attempted, monitor resident symptoms/behaviors. Medical chart and medication regimen reviewed. The following medication irregularities or issues were identified: No recommendations for resident at this time. Date Date of Note: 03/22/25 Documented by User: Dr. Kirk Guevara MD 03/22/25 08:50 TCU RX Drug Regimen Review Provider Comments Provider responsibility Provider Comments to Recommendations by Pharmacy Agree
[2025-03-22] MEDS: Aspirin E.C. 81 MG Tablet PO (10:31)
[2025-03-22] MEDS: APIXABAN 5 MG TABLET PO ×2 (10:32→21:18)
[2025-03-22] MEDS: Senna/Docusate Sodium 1 Tablet 2 TABLET PO ×2 (10:34→21:16)
--- NOTE | 2025-03-22 15:05 | NURSING ---
ALL CARE GIVEN IN ROOM FOR PT IN DROPLET PRECAUTIONS FOR FLU.
[2025-03-22] MEDS: Doxepin Hydrochloride 10 MG Capsule PO (21:18)
--- NOTE | 2025-03-22 21:30 | NURSING ---
COMMERCIAL REPORTER reports patient declined shower as scheduled. Discussed refusal with patient, patient states my is coming in tomorrow with therapy and they are going to give me a shower. patient presents as A&x3, denies requests at this time. call light and personal items within reach.
[2025-03-23] VITALS (8 sets, daily range): BP systolic 109–118; BP diastolic 55–76; PULSE 86–95; RESP 16; TEMP 36.8; O2SAT 94–98; BMI 24.3; BMI 23.9
--- NOTE | 2025-03-23 00:02 | NURSING ---
Addendum entered by Charlee Johnson 03/24/25 09:21: 03/23/25- DC'd droplet precautions. Tested positive to parainfluenza 03/15/25, had completed 7 days isolation. Resident asymptomatic. Original Note: All care provided in room, droplet precautions continue as ordered
[2025-03-23] MEDS: Ensure Plus High Protein 120 ML LIQUID PO ×4 (05:34→21:55)
[2025-03-23 05:53] LABS: Hematocrit 30.7 % (40-54); Hemoglobin 9.8 g/dL (13.0-16.5)
[2025-03-23] MEDS: Aspirin E.C. 81 MG Tablet PO (09:58)
[2025-03-23] MEDS: APIXABAN 5 MG TABLET PO ×2 (09:58→21:55)
[2025-03-23] MEDS: Senna/Docusate Sodium 1 Tablet 2 TABLET PO ×2 (10:00→22:01)
--- NOTE | 2025-03-23 12:51 | CASEMGMT ---
Social Work SW met w/pt to complete initial assessment. Introduced self and role. SW verified pt's contact of , did not want to add addtional contacts at this time. Pt confirmed code status as a DNRCC-A. Educated pt to [employer]'s next review date of 03/25 and continued stay is not guaranteed with each review. Pt aware of plan of care meeting tomorrow. Pt's goal is to return home w/spouse, is open to HHC vs outpt PT. He states he thinks may be looking into options already. Pt has no DME, open to SW ordering what is needed. Pt states is to bring in HCPOA documents. SW will continue to follow for d/c planning. DAWSON Quijano
--- NOTE | 2025-03-23 13:13 | CASEMGMT ---
Social Work did bring in POA/LW, they will be placed on the chart. DAWSON Quijano
[2025-03-23] MEDS: Doxepin Hydrochloride 10 MG Capsule PO (21:59)
[2025-03-24 04:28] VITALS: BMI 24.2
[2025-03-24] MEDS: Ensure Plus High Protein 120 ML LIQUID PO ×4 (05:33→21:03)
[2025-03-24 05:42] LABS: Hematocrit 29.3 % (40-54); Hemoglobin 9.5 g/dL (13.0-16.5)
[2025-03-24 05:53] VITALS: PULSE 78; O2SAT 94
[2025-03-24 06:53] VITALS: PULSE 89; RESP 24; O2SAT 99
[2025-03-24 08:39] VITALS: BP 137/78; PULSE 95
[2025-03-24] MEDS: Aspirin E.C. 81 MG Tablet PO (08:39)
[2025-03-24] MEDS: APIXABAN 5 MG TABLET PO ×2 (08:40→21:03)
--- NOTE | 2025-03-24 13:29 | CASEMGMT ---
Social Work IDT met with patient and for care plan meeting. Discussed patient's progress in PT/OT/SN/RDN. Educated to [facility] insurance with NRD 03/25 and continued stay is not guaranteed with each review. Provided pt/family with written communication of insurance process and copay coverage during stay. ST order entered to al for dysarthria. can care for pt at home. stated [facility] referred to [facility] before electing to come to TCU. SW can re-refer at [place]. inquired about being billed for a FWW at [facility] but never sent home with one. SW explored and obtained further details and will contact [facility] to investigate. Pt/ appreciative. SW will continue to follow to assist with DC planning. Sherry WHITTAKERW
[2025-03-24 16:00] VITALS: BP 121/81; PULSE 79; RESP 16; TEMP 36.5; O2SAT 98
[2025-03-24 19:05] VITALS: PULSE 78; RESP 15
[2025-03-24 21:03] VITALS: BP 124/73; PULSE 92
[2025-03-24] MEDS: Doxepin Hydrochloride 10 MG Capsule PO (21:03)
[2025-03-25 05:11] VITALS: BMI 24.0
[2025-03-25] MEDS: Ensure Plus High Protein 120 ML LIQUID PO ×4 (05:46→21:54)
[2025-03-25 05:52] LABS: Hematocrit 28.2 % (40-54); Hemoglobin 9.2 g/dL (13.0-16.5)
[2025-03-25 06:55] VITALS: PULSE 73; RESP 16
[2025-03-25] MEDS: Aspirin E.C. 81 MG Tablet PO (09:45)
[2025-03-25] MEDS: APIXABAN 5 MG TABLET PO ×2 (09:45→21:54)
[2025-03-25 09:46] VITALS: BP 128/67; PULSE 58
[2025-03-25 09:50] VITALS: BP 128/67; PULSE 58; RESP 16; TEMP 36.5; O2SAT 98
[2025-03-25 10:00] VITALS: BMI 23.6
--- NOTE | 2025-03-25 12:04 | CASEMGMT ---
Social Work SW completed BIMS () and PHQ-2 () for MDS assessment. Sherry Mejia DIE STORAGE CLERK CONCRETE BUILDING ASSEMBLER
--- NOTE | 2025-03-25 13:33 | NURSING ---
PT IS GETTING A SCOPE TOMORROW WITH . PT IS TO BE NPO AT MIDNIGHT TONIGHT. PT AND UPDATED.
--- NOTE | 2025-03-25 14:44 | CASEMGMT ---
Addendum entered by Sherry Mejia 03/26/25 12:11: SONAL received return call from Zully at [facility] who investigated the walker situation, and confirmed the signed for the walker, but did leave it in the pt's room. [facility] does have the walker for the to moss picker and can contact Zully to schedule coordination. SONAL phoned to update and provided Zully's contact information. Addendum entered by Lois Steiner 03/25/25 15:58: SONAL called [facility] and was provided with an alternate contact for Zully. Zully cell phone is [phone]. SONAL left a message requesting a return call to this SONAL or U SW. TREMAINE Castellon Original Note: Social Work- SONAL called [facility] and left a voicemail for Zully PRUITT [phone] regarding pt being billed for a walker, but discharging without the walker. SONAL requests a call back. TREMAINE Castellon
[2025-03-25] MEDS: Doxepin Hydrochloride 10 MG Capsule PO (21:54)
[2025-03-25 22:00] VITALS: BP 146/88; PULSE 82; RESP 16; O2SAT 99
--- NOTE | 2025-03-26 00:01 | NURSING ---
npo at this time per order
[2025-03-26 05:52] VITALS: BMI 24.1
[2025-03-26 06:04] LABS: Hematocrit 30.2 % (40-54); Hemoglobin 9.8 g/dL (13.0-16.5); Immature Granulocytes Count 0.050 X10^3/uL (0.0-0.0); Mean Corp Hgb Conc 32.5 g/dL (32-36); Mean Corpuscular Volume 94.4 fL (80-94); Mean Platelet Vol. 9.5 fl (6.2-12.0); NRBC Flagged by Analyzer 0 % (0-5); Platelet Count 260 K/mm3 (150-450); RBC Distribution Width CV 13.2 % (11.6-14.6); RBC Distribution Width SD 45.0 fl (35.1-43.9); Red Blood Count 3.20 M/mm3 (4.6-6.2); White Blood Count 6.6 K/mm3 (4.4-11.0)
[2025-03-26 06:35] LABS: Anion Gap 8 (5-15); BUN 21 mg/dL (4-19); BUN/Creat Ratio 20.9 RATIO (10-20); Calcium,Total 8.5 mg/dL (7.6-11.0); Carbon Dioxide 22.6 mmol/L (21.0-32.0); Chloride 104 mmol/L (98-108); Estimated Creatinine Clearance 54.67 ml/min (50-250); Glucose 106 mg/dL (70-99); Potassium 4.0 mmol/L (3.3-5.1)
--- NOTE | 2025-03-26 07:49 | NURSING ---
Broommaking Supervisor Note; MDS for 03/26/2025 Complete
--- NOTE | 2025-03-26 08:55 | NURSING ---
Primary Care Pediatrician Note, Activity Asset: Elías Mckinney is independent in his choice of daily activities. Was admitted on ISO and will have his her visiting daily. Staff will offer in room activities, TV, reading , word puzzles and when off ISO will remind him of group activities. Staff will respect his right to say no to daily activities.
[2025-03-26 09:57] VITALS: BP 139/96; PULSE 99; RESP 17; TEMP 36.6; O2SAT 95
[2025-03-26 10:00] VITALS: PULSE 99; RESP 17; O2SAT 95
--- NOTE | 2025-03-26 10:07 | EX.PCM.CON.G ---
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 Prior history: Cardiac/Surgical: Initial presentation with new onset dyspnea on exertion (CAMPOS) and chest pain after walking 2 blocks, culminating in NSTEMI diagnosis (Troponin 210). Successfully underwent CABG x 4. Reports no active chest pain or acute shortness of breath (SOB) since 02/26. Currently managed for post-operative atrial fibrillation (Afib) with Eliquis (started 03/09) and low-dose Metoprolol. Managed for Acute Heart Failure with preserved Ejection Fraction (HFpEF) with Lasix and fluid restriction, with reported improvement (03/16). Neuro: Experienced transient Dysarthria with negative CT/CTA for stroke (03/06). Currently has no reported acute neurological symptoms. Infectious/Pulmonary: Developed a dry cough (03/15), positive for Parainfluenza virus (03/16). Chest imaging shows moderate left pleural effusion, atelectasis versus infiltrate. Reports no fever or productive cough. Gastrointestinal/Nutrition: Significant issue with poor appetite/anorexia leading to 7 days of NPO/poor intake (03/07).He received concentrated tube feeds (TF) via [place] (placed 03/11) for nutritional support. Reports positive bowel movement (03/08) with ongoing bowel regimen. Functional Status: Reports feeling better and tolerating walking with staff (03/09).] His hemoglobin has been continually going down since being in a transitional care unit and I was consulted for anemia in the setting of anticoagulation and antiplatelet therapy. [facility] Medical History Hypertension Home Medications ?Medication ?Instructions ?Recorded ?Last Taken ?Type tamsulosin 0.4 mg capsule 0.8 mg PO QHS prostate 11/04/19 07/14/23 History aspirin 81 mg tablet,delayed 81 mg PO BREAKFAST heart health #0 02/24/25 Unknown Rx release tabs atorvastatin 40 mg tablet 40 mg PO QHS cholesterol #0 tabs 02/24/25 Unknown Rx finasteride 5 mg tablet 5 mg PO QHS prostate 02/24/25 02/23/25 History levothyroxine 100 mcg tablet 100 mcg PO DAILY thyroid 02/24/25 02/24/25 History (Synthroid) losartan 100 mg tablet 75 mg PO QHS BP 02/24/25 02/23/25 History melatonin 3 mg capsule 9 mg PO QHS sleep 02/24/25 02/23/25 History metoprolol tartrate 25 mg tablet 25 mg PO BID BP #0 tabs 02/24/25 Unknown Rx multivit,Ca,min-iron 8 mg-folic 1 tab PO DAILY supplement 02/24/25 02/24/25 History acid 200 mcg-lycopene 600 mcg tablet (Men's Daily Multivitamin) verapamil 120 mg tablet,extended 120 mg PO QHS bp 02/24/25 Unknown History release acetaminophen 500 mg tablet 500 mg PO Q6H PRN pain 1-10 or 03/19/25 Unknown History fever albuterol sulfate 2.5 mg/3 mL 2.5 mg inhalation Q2H PRN 03/19/25 Unknown History (0.083 %) solution for nebulization shortness of breath or wheezing apixaban 5 mg (74 tabs) tablets in 5 mg PO BID blood thinner 03/19/25 Unknown History a dose pack furosemide 40 mg tablet (Lasix) 40 mg PO DAILY water retention 03/19/25 Unknown History guaifenesin 600 mg tablet, 600 mg PO BID congestion 03/19/25 Unknown History extended release 12 hr (Mucinex) insulin lispro 100 unit/mL 1 unit subcut ACHS diabetes 03/19/25 Unknown History subcutaneous pen (Humalog KwikPen (U-100) Insulin) ipratropium 0.5 mg-albuterol 3 mg 3 ml inhalation TID lungs 03/19/25 Unknown History (2.5 mg base)/3 mL nebulization soln lidocaine 4 % topical patch 1 patch topical Q24H pain 03/19/25 Unknown History mirtazapine 7.5 mg tablet 7.5 mg PO QHS sleep 03/19/25 Unknown History ondansetron HCl 4 mg/5 mL oral 4 mg PO Q6H PRN nausea and vomiting 03/19/25 Unknown History solution pantoprazole 40 mg tablet,delayed 40 mg PO DAILY acid reflux 03/19/25 Unknown History release polyethylene glycol 3350 17 gram 17 g PO DAILY bowels 03/19/25 Unknown History oral powder packet (Miralax) sennosides 8.6 mg-docusate sodium 2 tab-cap PO DAILY constipation 03/19/25 Unknown History 50 mg tablet (Senna with Docusate Sodium) Allergy/AdvReac Type Severity Reaction Status Date / Time Penicillins Allergy NEEDS Verified 02/24/25 07:51 FOLLOW-UP fermented products Allergy NEEDS Uncoded 11/04/19 10:09 FOLLOW-UP Family History Mother Congestive heart failure Father Colon cancer Surgical History History of hand surgery History of left breast biopsy History of colonoscopy History of meniscectomy of left knee Social History household members: spouse Smoking Status: Former smoker alcohol intake: never substance use type: does not use ROS Constitutional Constitutional: Denies fatigue, fever(s), poor appetite, weight gain or weight loss Gastrointestinal Gastrointestinal: Denies belching, bloating, change in bowel habits, change in stool character, chewing difficulty, coffee ground emesis, constipation, cramping, diarrhea, dyspepsia, dysphagia, early satiety, excessive flatus, fecal incontinence, heartburn, hematemesis, hematochezia, hemorrhoids, loose stools, melena, nausea, odynophagia, rectal bleeding, tenesmus, vomiting or weight changes Physical Exam Const alert, oriented x3, no apparent distress and healthy appearing General Appearance: cooperative GI normal to inspection, nondistended, normoactive bowel sounds, soft to palpation, non-tender and non-distended Percussion: normal to percussion Rectal Exam: deferred Lab / Micro Data 03/26/25 05:20 03/26/25 05:26 Labs: Laboratory Results - last 24 hr 03/26/25 05:20: WBC 6.6, RBC 3.20 L, Hgb 9.8 L, Hct 30.2 L, MCV 94.4 H, MCH 30.6, MCHC 32.5, RDW Std Deviation 45.0 H, RDW Coeff of Charles 13.2, Plt Count 260, MPV 9.5, Immature Gran % (Auto) 0.800, Neut % (Auto) 64.0, Lymph % (Auto) 19.1, [place] % (Auto) 6.2, Eos % (Auto) 9.3 H, Baso % (Auto) 0.6, Absolute Neuts (auto) 4.3, Absolute Lymphs (auto) 1.27, Nucleated RBC % 0 03/26/25 05:26: Sodium 135, Potassium 4.0, Chloride 104, Carbon Dioxide 22.6, Anion Gap 8, BUN 21 H, Creatinine 1.02, Estim Creat Clear Calc 54.67, Est GFR (MDRD) Non-Af 72, BUN/Creatinine Ratio 20.9 H, Glucose 106 H, Calcium 8.5 Assessment & Plan Assessment/Plan (1) Anemia: PLAN: He will undergo endoscopic evaluation of his upper GI tract and possibly colonoscopy in the future. He was explained alternatives, risk and benefits include not withstanding bleeding, infection, subs, perforation, need for such a . He will have an ASA of 3. Please keep n.p.o. past midnight. Charges/Coding Visit Charges Inpatient E&M: 30074 SNF Init L2
[2025-03-26 13:24] VITALS: BP 139/96; PULSE 99; RESP 17; TEMP 36.6; O2SAT 96
--- NOTE | 2025-03-26 15:29 | NURSING ---
pt off floor for EGD with
--- NOTE | 2025-03-26 19:13 | NURSING ---
pt back to floor 1800
[2025-03-26 19:40] VITALS: PULSE 98; RESP 20; O2SAT 98
[2025-03-26 22:06] VITALS: BP 117/72; PULSE 97
[2025-03-26] MEDS: APIXABAN 5 MG TABLET PO (22:10)
[2025-03-26] MEDS: Senna/Docusate Sodium 1 Tablet 2 TABLET PO (22:14)
[2025-03-26] MEDS: Ensure Plus High Protein 120 ML LIQUID PO (22:14)
[2025-03-26 22:15] VITALS: BP 117/72; PULSE 97
[2025-03-26] MEDS: Doxepin Hydrochloride 10 MG Capsule PO (22:17)
[2025-03-27] MEDS: Ensure Plus High Protein 120 ML LIQUID PO ×3 (05:12→17:55)
[2025-03-27 06:26] VITALS: BMI 23.5
[2025-03-27 09:32] VITALS: BP 116/75; PULSE 74; RESP 17; TEMP 36.4; O2SAT 98
[2025-03-27] MEDS: Aspirin E.C. 81 MG Tablet PO (09:35)
[2025-03-27] MEDS: APIXABAN 5 MG TABLET PO ×2 (09:35→20:03)
[2025-03-27 09:36] VITALS: PULSE 74
[2025-03-27] MEDS: Tuberculin,Purif.prot.deriv. 50 TU/ML Vial 0.1 ML ID (13:20)
[2025-03-27 18:36] VITALS: PULSE 85; RESP 18; O2SAT 99
[2025-03-27 19:48] VITALS: BP 111/69; PULSE 100
[2025-03-27 20:01] VITALS: PULSE 100; O2SAT 97
[2025-03-27 20:04] VITALS: BP 111/69; PULSE 100
[2025-03-27] MEDS: Doxepin Hydrochloride 10 MG Capsule PO (20:06)
[2025-03-28 06:06] VITALS: BMI 23.8
[2025-03-28] MEDS: Ensure Plus High Protein 120 ML LIQUID PO (06:42)
[2025-03-28 10:57] VITALS: BP 110/73; PULSE 77; RESP 17; TEMP 36.2; O2SAT 97
[2025-03-28 11:00] VITALS: PULSE 77
[2025-03-28] MEDS: APIXABAN 5 MG TABLET PO ×2 (11:00→22:40)
[2025-03-28] MEDS: Aspirin E.C. 81 MG Tablet PO (11:00)
[2025-03-28 13:25] VITALS: PULSE 71; RESP 16
[2025-03-28 16:00] VITALS: BP 122/76; PULSE 73; RESP 18; TEMP 36.4; O2SAT 98
[2025-03-28] MEDS: Doxepin Hydrochloride 10 MG Capsule PO (22:38)
[2025-03-28 22:42] VITALS: BP 109/76; PULSE 76
[2025-03-28 22:51] VITALS: PULSE 76; RESP 16; O2SAT 97
[2025-03-29 05:15] VITALS: BMI 24.0
[2025-03-29 08:57] VITALS: BP 135/81; PULSE 90; RESP 18; TEMP 36.3; O2SAT 97
[2025-03-29 08:58] VITALS: BP 135/81; PULSE 90
[2025-03-29] MEDS: APIXABAN 5 MG TABLET PO ×2 (08:58→22:02)
[2025-03-29] MEDS: Aspirin E.C. 81 MG Tablet PO (08:59)
[2025-03-29 10:00] VITALS: PULSE 87; RESP 17; O2SAT 97
[2025-03-29 21:54] VITALS: BP 111/78; PULSE 81
[2025-03-29 22:01] VITALS: BP 111/78; PULSE 81
[2025-03-29] MEDS: Doxepin Hydrochloride 10 MG Capsule PO (22:01)
[2025-03-30] MEDS: Aspirin E.C. 81 MG Tablet PO (09:44)
[2025-03-30 09:45] VITALS: BP 115/66; PULSE 72
[2025-03-30] MEDS: APIXABAN 5 MG TABLET PO ×2 (09:45→20:09)
[2025-03-30 09:51] VITALS: BP 115/66; PULSE 72; RESP 16; TEMP 36.2; O2SAT 98
[2025-03-30 10:00] VITALS: BMI 23.5
--- NOTE | 2025-03-30 13:04 | MDS.RN ---
Information for the MDS was obtained from review of the clinical record, interview of resident, staff, and direct observation of resident?s care.
[2025-03-30 14:30] VITALS: PULSE 72; RESP 16; O2SAT 98
--- NOTE | 2025-03-30 15:40 | CASEMGMT ---
Social Work SW met with patient and in room. Pt is requesting to DC home. SW educated insurance update is 04/02 and may not hear back. Offered to set DC for 04/02. Pt/ agreed. confirmed she retrieved the FWW and there are no other DME needs. Pt/ confirmed to re-refer to [facility] and pt will f/u with cardiology after DC; if cardiac rehab is ordered, pt can transition at that time. will get son to assist at DC. - SONAL phoned referral to [facility] for PT/OT/SN Plan: DC home with 04/02, [facility] PT/OT/SN Sherry Mejia MSW CEMENT SACK BREAKER
--- NOTE | 2025-03-30 20:02 | DS.PCM_ITS ---
Providers Date of Admission: 03/19/25 Primary Care Physician: Dr. Daniel Damico MD Consultations 03/24/25 19:29 Consult: Gastroenterology Routine Consulting Provider: [facility] Reason for Consult: Anemia, +hemoccult. EMERGENT Consult: No MD Notified: Yes Date Notified: 03/24/25 Time Notified: 19:29 Method of Notification: Text Reason For Visit: HEART FAILURE Diagnosis Discharge Diagnosis (1) Anemia: Status: Acute Code(s): D64.9 - Anemia, unspecified Plan 85 year old male with below past medical history hospitalized for nstemi, multivessel coronary artery disease, underwent cabg x 4 03/02/[address] Iraheta, postoperative course complicated by atrial fibrillation, acute hfpef, parainfluenza infection, loss of appetite, admitted to TCU with debility, here for rehabilitation, strengthening, prior to discharge home with . * Debility - PT/OT. * Pain - Tylenol 1000mg q6 prn pain (1-10), Lidoderm 1 patch td daily. * Bowel - Miralax 17gm daily, senna/colace 2 tablets bid, Magnesium citrate 300mL po x 1 prn. * Adult immunization - Administer pneumonia vaccine, covid vaccine, flu vaccine as appropriate. * DVT prophylaxis - Eliquis. * Anemia - Hemoccult +, monitor H&H for now, transfuse if necessary. * Parainfluenza infection - Mucinex 600mg bid thru 03/21/2025, Duoneb 3ml neb tid, Albuterol 2.5mg q2h prn. * Atrial fibrillation - Metoprolol 25mg bid, Eliquis 5mg bid. * Hyperlipidemia - Atorvastatin 40mg qhs. * Coronary artery disease s/p cabg x 4 - Metoprolol 25mg bid, Losartan 75mg qhs, Eliquis 5mg bid, Aspirin 81mg daily. * BPH - Finasteride 5mg daily, Tamsulosin 0.8mg qhs. * Acute HFpEF - Metoprolol 25mg bid, Losartan 75mg qhs, Furosemide 40mg daily thru 03/27/2025. * Diabetes Mellitus II - Glucagon 1mg im x 1 prn hypoglycemia. * Hypothyroidism - Levothyroxine 100mcg daily. * Nutrition - MVI 1 tablet daily. * Nausea - Zofran odt 4mg q6 prn. * GERD - Pantoprazole 40mg daily. The following psychotropic medication was present on admission: Mirtazapine 7.5mg qhs. Psychotropic medication therapy is indicated for a diagnosis of: Appetite loss/depression/insomnia. Based on my clinical evaluation, continuation of the medication is necessary at this time. Gradual dose reduction plan (select one): ____ GDR will be attempted. Will monitor patient symptoms and behaviors in response to GDR. __x__ GRD contraindicated. Reason contraindicated: stable short term use. The following psychotropic medication is being started or the dose in being increased: Doxepin 10mg qhs. Psychotropic medication therapy is indicated for a diagnosis of: Insomnia. In my professional judgement, medication is necessary because the resident?s symptoms cause significant distress to the resident or a danger to the resident or others. Evaluation for underlying causes including medical illness and pain has been considered. The benefits of the medication are felt to outweigh potential harm. Nonpharmacologic/behavior interventions have been attempted but have not been effective or nonpharmacologic interventions are contraindicated for this patient. Potential benefits and risks of treatment and alternatives have been reviewed with resident/family and the resident/family have accepted psychotropic medication treatment. Please see nursing documentation. Medications at Discharge Home Medications tamsulosin 0.4 mg capsule 0.8 mg PO QHS prostate 11/04/19 aspirin 81 mg tablet,delayed release 81 mg PO BREAKFAST heart health #0 tabs 02/24/25 atorvastatin 40 mg tablet 40 mg PO QHS cholesterol #0 tabs 02/24/25 finasteride 5 mg tablet 5 mg PO QHS prostate 02/24/25 levothyroxine 100 mcg tablet (Synthroid) 100 mcg PO DAILY thyroid 02/24/25 metoprolol tartrate 25 mg tablet 25 mg PO BID BP #0 tabs 02/24/25 multivit,Ca,min-iron 8 mg-folic acid 200 mcg-lycopene 600 mcg tablet (Men's Daily Multivitamin) 1 tab PO DAILY supplement 02/24/25 apixaban 5 mg tablet (Eliquis) 5 mg PO BID 30 days #60 tabs 03/30/25 losartan 50 mg tablet 75 mg (1.5 x 50 mg) PO QHS 30 days #45 tabs 03/30/25 mirtazapine 15 mg tablet 7.5 mg (1/2 x 15 mg) PO QHS 30 days #15 tabs 03/30/25 pantoprazole 40 mg tablet,delayed release 40 mg PO BID 30 days #60 tabs 03/30/25 Hospital Course Operations - (See below.) Procedures None Summary of Care Provided Minutes Spent on Discharge: 35 Hospital Course: 85 year old male with below past medical history hospitalized for nstemi, multivessel coronary artery disease, underwent cabg x 4 03/02/[address] Iraheta, postoperative course complicated by atrial fibrillation, acute hfpef, parainfluenza infection, loss of appetite, admitted to TCU with debility, here for rehabilitation, strengthening, prior to discharge home with . 03/26/2025 Dr. Small EGD: Impression: - No gross lesions in the entire esophagus. - Chronic gastritis. Biopsied. - Multiple gastric polyps. Treated with a heater probe. - No gross lesions in the entire examined duodenum. Recommendation: - Discharge patient to home. - Resume previous diet. - Continue present medications. - Await pathology results. - Use Protonix (pantoprazole) 40 mg PO BID for 3 months. Discharge home with 04/02/2025, [facility] PT/OT/SN. Physical Exam Const alert, oriented x3, no apparent distress and healthy appearing General Appearance: cooperative GI normal to inspection, nondistended, normoactive bowel sounds, soft to palpation, non-tender and non-distended Percussion: normal to percussion Rectal Exam: deferred Weight / BMI Weight Weight: 74.525 kg Body Mass Index (BMI) 23.5 ABG / Lab / Microbiology Data 03/26/25 05:20 03/26/25 05:26 Microbiology: Microbiology 03/21/25 19:42 Stool Stool Occult Blood (JOSH) - Final Occult Blood Positive D/C Instructions Discharge Activity: Return to Normal Activity, May Shower and Use Walker Weight Bearing Status: Weight bearing as tolerated Call your doctor if you observe: Fever of 101 or Higher, Inability to urinate, Inability to have a bowel movement, Shortness of breath, Dizziness, Fainting spells, Swelling in the ankles, Chest pain and Uncontrolled pain DC O2, CPAP, BIPAP Needs Home O2 Discharge instructions: No Additional Instructions: Discharge home with 04/02/2025, [facility] PT/OT/SN. Please Follow Up With: Zeeshan Macario APRN CNP When: As scheduled. Meaningful Use Info Meaningful Use Meaningful Use Diagnoses (Choose all that apply): None applicable Discharge Plan Admission Admit Date/Time: 03/19/25 14:50 Primary Reason for Your Visit: Debility. Attending Provider: Kirk Guevara Chi Primary Care Provider: Daniel Damico Consulting Providers: Cem Tapia; Staci,Williams; Meera Cherry; Penny Cedillo; María Elena Scott Instructions Additional Instructions / Restrictions: Discharge home with 04/02/2025, [facility] PT/OT/SN. Discharge Orders/Prescriptions Prescriptions: New losartan 50 mg Tablet 75 mg PO QHS 30 Days Qty: 45 0RF pantoprazole 40 mg Tablet,Delayed Release (Dr/Ec) 40 mg PO BID 30 Days Qty: 60 0RF mirtazapine 15 mg Tablet 7.5 mg PO QHS 30 Days Qty: 15 0RF Eliquis 5 mg Tablet 5 mg PO BID 30 Days Qty: 60 0RF Continued tamsulosin 0.4 MG capsule 0.8 mg PO QHS levothyroxine [Synthroid] 100 mcg tablet 100 mcg PO DAILY finasteride 5 mg tablet 5 mg PO QHS Men's Daily Multivitamin 8 mg iron- 200 mcg-600 mcg tablet 1 tab PO DAILY atorvastatin 40 mg Tablet 40 mg PO QHS Qty: 0 0RF aspirin 81 mg Tablet,Delayed Release (Dr/Ec) 81 mg PO BREAKFAST Qty: 0 0RF metoprolol tartrate 25 mg Tablet 25 mg PO BID Qty: 0 0RF Discontinued losartan 100 mg tablet 75 mg PO QHS verapamil 120 mg tablet extended release 120 mg PO QHS melatonin 3 mg capsule 9 mg PO QHS acetaminophen 500 mg tablet 500 mg PO Q6H PRN (Reason: pain 1-10 or fever) albuterol sulfate 2.5 mg /3 mL (0.083 %) solution for nebulization 2.5 mg inhalation Q2H PRN (Reason: shortness of breath or wheezing) Rx Instructions: until breathing returns to target peak flow/parameters apixaban 5 mg (74 tabs) tablets,dose pack 5 mg PO BID furosemide [Lasix] 40 mg tablet 40 mg PO DAILY guaifenesin [Mucinex] 600 mg tablet extended release 12hr 600 mg PO BID insulin lispro [Humalog KwikPen Insulin] 100 unit/mL insulin pen 1 unit subcut ACHS ipratropium-albuterol 0.5 mg-3 mg(2.5 mg base)/3 mL solution for nebulization 3 ml inhalation TID lidocaine 4 % adhesive patch,medicated 1 patch topical Q24H Rx Instructions: may leave on for up to 12 hrs mirtazapine 7.5 mg tablet 7.5 mg PO QHS ondansetron HCl 4 mg/5 mL solution 4 mg PO Q6H PRN (Reason: nausea and vomiting) pantoprazole 40 mg tablet,delayed release (DR/EC) 40 mg PO DAILY polyethylene glycol 3350 [Miralax] 17 gram powder in packet 17 g PO DAILY sennosides-docusate sodium [Senna with Docusate Sodium] 8.6-50 mg tablet 2 tab-cap PO DAILY Referrals / Follow Up: Daniel Damico MD [Primary Care Provider, Family Practice] - 04/06/25 11:40 am Referral Note: appt with Johana Podlogtrini Disposition Disposition (needs filled in before D/C Order can be placed): Home Health Service
[2025-03-30] MEDS: Doxepin Hydrochloride 10 MG Capsule PO (20:08)
[2025-03-30 20:09] VITALS: BP 119/80; PULSE 65
[2025-03-31 10:00] VITALS: PULSE 85; RESP 17; O2SAT 98
[2025-03-31 10:21] VITALS: BP 109/72; PULSE 89; RESP 18; TEMP 36.3; O2SAT 98
[2025-03-31] MEDS: APIXABAN 5 MG TABLET PO ×2 (10:25→22:44)
[2025-03-31] MEDS: Aspirin E.C. 81 MG Tablet PO (10:25)
[2025-03-31] MEDS: Senna/Docusate Sodium 1 Tablet 2 TABLET PO ×2 (10:29→22:48)
[2025-03-31] MEDS: Pneumococcal Vaccine 20 Valent 0.5 ML Syringe IM (10:29)
[2025-03-31 10:30] VITALS: BP 109/72; PULSE 89
[2025-03-31 10:36] VITALS: O2SAT 96
[2025-03-31 22:40] VITALS: BP 109/79; PULSE 62
[2025-03-31 22:45] VITALS: BP 109/79; PULSE 62
[2025-03-31] MEDS: Doxepin Hydrochloride 10 MG Capsule PO (22:47)
[2025-04-01 04:20] VITALS: BMI 23.5
[2025-04-01 08:37] VITALS: BP 133/71; PULSE 91; RESP 18; TEMP 36.3; O2SAT 98
[2025-04-01] MEDS: Aspirin E.C. 81 MG Tablet PO (08:39)
[2025-04-01 08:40] VITALS: PULSE 91
[2025-04-01] MEDS: APIXABAN 5 MG TABLET PO ×2 (08:40→20:26)
[2025-04-01] MEDS: Senna/Docusate Sodium 1 Tablet 2 TABLET PO ×2 (08:44→20:27)
--- NOTE | 2025-04-01 16:02 | CASEMGMT ---
Social Work SW completed BIMS () and PHQ-2 () for MDS assessment. 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
[2025-04-01 20:22] VITALS: BP 144/72; PULSE 76
[2025-04-01 20:27] VITALS: PULSE 76
[2025-04-01] MEDS: Doxepin Hydrochloride 10 MG Capsule PO (20:27)
[2025-04-02 05:51] VITALS: BMI 23.5
[2025-04-02 05:56] VITALS: PULSE 69; O2SAT 98
[2025-04-02 05:58] LABS: Hematocrit 32.8 % (40-54); Hemoglobin 10.7 g/dL (13.0-16.5); Immature Granulocytes Count 0.060 X10^3/uL (0.0-0.0); Mean Corp Hgb Conc 32.6 g/dL (32-36); Mean Corpuscular Volume 93.2 fL (80-94); Mean Platelet Vol. 9.7 fl (6.2-12.0); NRBC Flagged by Analyzer 0 % (0-5); Platelet Count 256 K/mm3 (150-450); RBC Distribution Width CV 13.6 % (11.6-14.6); RBC Distribution Width SD 46.4 fl (35.1-43.9); Red Blood Count 3.52 M/mm3 (4.6-6.2); White Blood Count 7.5 K/mm3 (4.4-11.0)
[2025-04-02 06:33] LABS: Anion Gap 9 (5-15); BUN 14 mg/dL (4-19); BUN/Creat Ratio 13.1 RATIO (10-20); Calcium,Total 8.8 mg/dL (7.6-11.0); Carbon Dioxide 21.4 mmol/L (21.0-32.0); Chloride 106 mmol/L (98-108); Estimated Creatinine Clearance 51.16 ml/min (50-250); Glucose 110 mg/dL (70-99); Potassium 4.1 mmol/L (3.3-5.1)
[2025-04-02 08:22] VITALS: BP 120/79; PULSE 91; RESP 18; TEMP 36.4; O2SAT 96
[2025-04-02 08:25] VITALS: BP 120/79; PULSE 91
[2025-04-02] MEDS: Aspirin E.C. 81 MG Tablet PO (08:26)
[2025-04-02] MEDS: APIXABAN 5 MG TABLET PO (08:26)
[2025-04-02] MEDS: Senna/Docusate Sodium 1 Tablet 2 TABLET PO (08:28)
[2025-04-02 11:37] VITALS: BP 120/79; PULSE 91; RESP 18; TEMP 36.4; O2SAT 96
== END 2025-04-02 11:30 | disposition home health service (06) | DRG 949 ==
PROVIDERS: Admitting Provider Family Medicine Geriatric Medicine; PCP Family Medicine; Referring Provider Family Medicine Geriatric Medicine; Visit Provider Family Medicine Geriatric Medicine
DX: Z48.812 Encounter for surgical aftercare following surgery on the circulatory system (principal); I21.4 Non-ST elevation (NSTEMI) myocardial infarction; I50.33 Acute on chronic diastolic (congestive) heart failure; E11.9 Type 2 diabetes mellitus without complications; E03.9 Hypothyroidism, unspecified; D64.9 Anemia, unspecified; B34.8 Other viral infections of unspecified site; I11.0 Hypertensive heart disease with heart failure; F32.A Depression, unspecified; I48.91 Unspecified atrial fibrillation; I25.10 Atherosclerotic heart disease of native coronary artery without angina pectoris; K21.9 Gastro-esophageal reflux disease without esophagitis; E78.5 Hyperlipidemia, unspecified; Z79.4 Long term (current) use of insulin; K29.50 Unspecified chronic gastritis without bleeding; K31.7 Polyp of stomach and duodenum; Z79.899 Other long term (current) drug therapy; Z87.891 Personal history of nicotine dependence; Z79.82 Long term (current) use of aspirin; G47.00 Insomnia, unspecified; N40.0 Benign prostatic hyperplasia without lower urinary tract symptoms; Z79.890 Hormone replacement therapy; Z23 Encounter for immunization
CPT/HCPCS: 36415; 80048; 82274; 82962; 85014; 85018; 85025; 87811; 90677; 92507; 92523; 92526; 92610; 94640; 97110; 97116; 97162; 97165; 97530; 97535

== ENCOUNTER 2025-03-26 15:18 | Day surgery (SDC) | payer MEDICARE, SELFPAY ==
[2025-03-26] MEDS: Lactated Ringers 1,000 ML 15 ML IV (15:35)
--- NOTE | 2025-03-26 15:37 | PRE.ANES_ITS ---
ASA Classification* ASA Classification ASA Classification: 3 Assessment & Plan Anesthesia* Anesthesia Assessment Anesthesia Assessment: Discussed sedation and/or anesthesia options, risks, benefits, and alternatives with patient/parents/legal guardian/POA. Questions invited. The patient/parents/legal guardian/POA seems to understand and agrees to proceed with anesthesia plan. Reviewed the physical assessment, medical history, allergy history and patient home medications list prior to surgery/procedure/anesthetic and documented any changes. Performed airway and anesthesia risk assessments. Anesthesia Type Anesthesia Type: MAC Anesthesia Focused Assessment* Airway Assessment Mouth opens: >3 cm Mallampati Score: II Labs Anesthesia Preop lab: CBC WBC, (4.4-11.0) 6.6 K/mm3 Today, 05:20 RBC, (4.6-6.2) 3.20 M/mm3 L Today, 05:20 Hgb, (13.0-16.5) 9.8 g/dL L Today, 05:20 Hct, (40-54) 30.2 % L Today, 05:20 Plt Count, (150-450) 260 K/mm3 Today, 05:20 CHEMISTRY Potassium, (3.3-5.1) 4.0 mmol/L Today, 05:26 Sodium, (133-145) 135 mmol/L Today, 05:26 BUN, (4-19) 21 mg/dL H Today, 05:26 Creatinine, (0.70-1.20) 1.02 mg/dL Today, 05:26 Glucose, (70-99) 106 mg/dL H Today, 05:26 POC Glucose, (74-106) 111 mg/dL H 03/19/25, 16:42 COAG PT, (11.7-14.9) 13.4 SECONDS 02/24/25, 08:30 Pre-Assessment Diagnosis/Proposed Procedure Planned Operative Procedure(s): EGD Anesthesia History 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 When Was Last Pacemaker Check QUESTION #4 FULL TEXT: You/Your Family Experience fever (hyperthermia) with Anesthesia Last Oral Intake Last Oral intake: Last Oral Intake NPO since Meds taken in AM with sips of water? Meds patient instructed to take am of surgery PONV PONV - process validation engineer: PONV - process validation engineer Female HX of Motion Sickness HX of N/V After Surgery Non-Smoker Duration of Surgery greater than 60 minutes Number of Risk Factors PONV Score Height & Weight Height & Weight: Anesthesia: Height & Weight Height 5 ft 10.08 in 03/24/25 14:42 Respiratory Assessment Respiratory Assessment - process validation engineer: Respiratory Tract Infection Hx - process validation engineer Hx Respiratory Tract Infection STOP Sleep Apnea STOP Sleep Apnea - process validation engineer: STOP Sleep Apnea - process validation engineer Hx Hypertension Yes 03/20/25 09:36 Hx Sleep Apnea No 03/19/25 15:04 CPAP BIPAP Do you snore loudly (louder than talking or can be heard Do you often feel tired/ fatigued/ sleepy during daytime? Has anyone observed you stop breathing during sleep? STOP Results QUESTION #5 FULL TEXT : Do you snore loudly (louder than talking or can be heard through closed doors)? Tobacco Use History Tobacco Use History - process validation engineer: Tobacco Use History - process validation engineer Tobacco Use Smoking Status Former smoker 03/19/25 17:17 Hx Tobacco Use No 03/19/25 15:04 Years Smoking Packs Smoked per Day Smoking Cessation Date was within the last 15 years Hx Smoking Cessation Date Hx Smoking Cessation Counseling Hematologic Medial History Hematologic Hx - process validation engineer: Hematologic Medical Hx - computing systems mechanic Hx of Blood Transfusion Hx of Transfusion in last 3 Months Date of Last Transfusion (if within last 3 months) Ever experience any problems with transfusion(s)? Specify any problems Hx of Preganancy in last 3 Months Nurse Filling Out Transfusion & Questions: Date: Time: Patient unable to answer at this time (ie. confused, unrespo /Reproduction History /Reproductive History - process validation engineer: /Reproductive Hx- process validation engineer Hx Now Gestational Age (in weeks): EDC: Hx Hx Para Hx Section SAB Does the father of the baby or his family experience fever w Father of the baby Malignant Hypertension history comment Active Medications Active Medications: Current Medications Generic Name Dose Route Start Last Admin Trade Name Freq PRN Reason Stop Dose Admin Lactated Ringer's 1,000 mls @ 15 mls/hr 03/26/25 15:30 03/26/25 15:35 IV 15 mls/hr .Q48H JOSÉ ANTONIO Administration PFSH Medical History Hypertension Home Medications ?Medication ?Instructions ?Recorded ?Last Taken ?Type tamsulosin 0.4 mg capsule 0.8 mg PO QHS prostate 11/0307/14/23 History aspirin 81 mg tablet,delayed 81 mg PO BREAKFAST heart health #0 02/24/25 Unknown Rx release tabs atorvastatin 40 mg tablet 40 mg PO QHS cholesterol #0 tabs 02/24/25 Unknown Rx finasteride 5 mg tablet 5 mg PO QHS prostate 5 02/23/25 History levothyroxine 100 mcg tablet 100 mcg PO DAILY thyroid 02/24/25 02/24/25 History (Synthroid) losartan 100 mg tablet 75 mg PO QHS BP 02/24/2508/14 History melatonin 3 mg capsule 9 mg PO QHS sleep 02/24/25 1 04/25/24 History metoprolol tartrate 25 mg tablet 25 mg PO BID BP #0 ta bs 02/24/25 Unknown Rx multivit,Ca,min-iron 8 mg-folic 1 tab PO DAILY supplem ent 02/24/25 02/24/25 History acid 200 mcg-lycopene 600 mcg tablet (Men's Daily Multivitamin) verapamil 120 mg tablet,extended 120 mg PO QHS bp 09/13 Unknown History release acetaminophen 500 mg tablet 500 mg PO Q6H PRN pain 1-1 0 or 03/19/25 Unknown History fever albuterol sulfate 2.5 mg/3 mL 2.5 mg inhalation Q2H AR N 03/19/25 Unknown History (0.083 %) solution for nebulization shortness of breat h or wheezing apixaban 5 mg (74 tabs) tablets in 5 mg PO BID blood t hinner 03/19/25 Unknown History a dose pack furosemide 40 mg tablet (Lasix) 40 mg PO DAILY water r etention 03/19/25 Unknown History guaifenesin 600 mg tablet, 600 mg PO BID congestion Unknown History extended release 12 hr (Mucinex) insulin lispro 100 unit/mL 1 unit subcut ACHS diabetes 03/19/25 Unknown History subcutaneous pen (Humalog KwikPen (U-100) Insulin) ipratropium 0.5 mg-albuterol 3 mg 3 ml inhalation TID lungs 03/19/25 Unknown History (2.5 mg base)/3 mL nebulization soln lidocaine 4 % topical patch 1 patch topical Q24H pain 03/19/25 Unknown History mirtazapine 7.5 mg tablet 7.5 mg PO QHS sleep 03/19/25 Unknown History ondansetron HCl 4 mg/5 mL oral 4 mg PO Q6H PRN nausea and vomiting 03/19/25 Unknown History solution pantoprazole 40 mg tablet,delayed 40 mg PO DAILY acid reflux 03/19/25 Unknown History release polyethylene glycol 3350 17 gram 17 g PO DAILY bowels 03/19/25 Unknown History oral powder packet (Miralax) sennosides 8.6 mg-docusate sodium 2 tab-cap PO DAILY c onstipation 03/19/25 Unknown History 50 mg tablet (Senna with Docusate Sodium) Allergy/AdvReac Type Severity Reaction Status Date / Time Penicillins Allergy NEEDS Verified 02/24/25 07:51 FOLLOW-UP fermented products Allergy NEEDS Uncoded 11/04/19 10:09 FOLLOW-UP Family History Mother Congestive heart failure Father Colon cancer Surgical History History of hand surgery History of left breast biopsy History of colonoscopy History of meniscectomy of left knee Social History household members: spouse Smoking Status: Former smoker alcohol intake: never substance use type: does not use Review of Systems (Anesthesia) ROS Narrative System reviewed and no additional complaints, except as documented.
--- OUTSIDE RECORDS SUMMARY | 2025-03-26 15:42 | XMS RPT_ITS | CCD ---
Author Organization [facility] Care Team Providers Care Sorting And Folding Supervisor Name Role Phone Jeremias Damico MD Primary Care Provider Jeremias Damico MD Primary Care Provider Boone SUGAR CANE GROWER.Diana HENDRICKS Unavailable Unavail able Renaldo SUGAR CANE GROWER.Zeeshan HENDRICKS Unavailable Boone SUGAR CANE GROWER.Diana HENDRICKS Unavailable ELDERBROCK, JEREMIAS Primary Care Unavailable ELDERMICHELLE, JEREMIAS Attending Unavailable ELDERMICHELLE, JEREMIAS Primary Care Unavailable ELDERBROTIMUR, JEREMIAS Referring Unavailable ELDERBROCK, JEREMIAS Primary Care Unavailable ELDERBROTIMUR, JEREMIAS Attending Unavailable ELDERBROCK, JEREMIAS Primary Care Unavailable SHAQ BISHOP Attending [...] rodriguez Attending Unavailable Shawn Chau Consulting Unavailable Nagaaustin Nagapradenaresh Referring Unavailabl e Elderbrock, Jeremias Primary [...] VEGETABLE GUM)] Propensity to adverse reactions 5 [facility] Work Phone: (20 sources) Mold Extract; Translations: [MOLD] Drug Allergy 5 [facility] Work Phone: (20 sources) Penicillin G; Translations: [PENICILLIN G] Drug Allergy 5 [facility] (20 sources) Pollen; Translations: [POLLEN] Propensity to adverse reactions 5 [facility] Work Phone: (20 sources) dairy products [Other] Propensity to adverse reactions 1 Other: See Comments, Unknown [facility] (20 sources) Vinegar; Translations: [VINEGAR] Propensity to adverse reactions 5 [facility] Work Phone: (1 source) Penicillins Allergy to substance 4 NEEDS FOLLOW-UP [facility] (2 sources) fermented products; Translations: [fermented products] Allergy to substance 0 NEEDS FOLLOW-UP [facility] (16 sources) Milk; Translations: [MILK CONTAINING PRODUCTS (DAIRY)] Drug Intolerance 4 Intolerance [facility] (1 source) Penicillins Drug allergy (disorder) 5 [facility] Repository Medications Current Medications Medication Drug Class(es) Dates Sig (Normalized) Sig (Original) docusate sodium 100 mg oral capsule (20 sources) Start: 05-12-2007 docusate sodium([employer] LIQUI-GELS 100 MG CAP) Take by mouth once daily. 0 05/12/2007 Active Start: 05-12-2007 docusate sodiu m([employer] LIQUI-GELS 100 MG CAP) 3 per day [...] deficit (BldA) [Moles/Vol] -1 mmol/L Normal -2-0 [facility] Comment on above: Order Comment: Sharon shaw Type: BLOOD SPECIMEN Ordering Facility: [facility] Address: [address] [place] [address] Performed By: #### 3 016-3, 50731-6, HSTNT, 00426-0, 05619-2, 06998-8 #### [facility] CLIA [id number] [address] [place] [address] [place] Body temperature 98.78 [degF] Normal [facility] Comment on above: Order Comment: Sharon shaw Type: BLOOD SPECIMEN Ordering Facility: [facility] Address: [address] [place] [address] Performed By: #### 3 016-3, 41973-1, HSTNT, 40625-1, 86357-8, 57455-5 #### [facility] CLIA [id number] [address] Calcium.ionized (BldV) [Mass/Vol] 1.22 mmol/L Normal 1.08-1.30 [facility] Comment on above: Order Comment: Speci men Type: BLOOD SPECIMEN Ordering Facility: [facility] Address: [address] [place] [address] Performed By: #### 3 016-3, 80891-4, HSTNT, 12555-8, 29848-5, 62188-2 #### [facility] CLIA [id number] [address] Calcium.ionized adjusted to pH 7.4 (BldA) [Moles/Vol] 1.21 mmol/L Normal 1.08-1.30 [facility] Comment on above: Order Comment: Speci men Type: BLOOD SPECIMEN Ordering Facility: [facility] Address: [address] [place] [address] Performed By: #### 3 016-3, 36611-4, HSTNT, 07791-0, 48426-5, 73328-2 #### [facility] CLIA [id number] [address] OF [facility] Carboxyhemoglobin (BldA) [Mass fraction] 1.1 % Normal 0.0-2.0 [facility] Comment on above: Order Comment: Speci men Type: BLOOD SPECIMEN Ordering Facility: [facility] Address: [address] [place] [address] Result Comment: Carb oxyhemoglobin Reference Range for Smokers: 2.0-8.0% Performed By: #### 3 016-3, 71292-5, HSTNT, 47294-9, 08341-6, 46663-0 #### [facility] CLIA [id number] [address] [place] Chloride [Moles/Vol] 100 mmol/L Normal 97-105 [facility] Comment on above: Order Comment: Speci men Type: BLOOD SPECIMEN Ordering Facility: [facility] Address: [address] [place] [address] Performed By: #### 3 016-3, 49290-2, HSTNT, 39249-0, 27991-8, 58837-6 #### [facility] CLIA [id number] [address] OF [facility] CO2 (Bld) [Partial pressure] 40 mm Hg Normal 36-46 [facility] Comment on above: Order Comment: Speci men Type: BLOOD SPECIMEN Ordering Facility: [facility] Address: [address] [place] [address] Performed By: #### 3 016-3, 90255-9, HSTNT, 61842-5, 03541-2, 16345-7 #### [facility] CLIA [id number] [address] CO2 adjusted to patient's actual temperature (Bld) [Partial pressure] 40 mmHg Normal 36-46 [facility] Comment on above: Order Comment: Speci men Type: BLOOD SPECIMEN Ordering Facility: [facility] Address: [address] [place] [address] Performed By: #### 3 016-3, 43862-7, HSTNT, 08654-3, 62371-3, 87199-0 #### [facility] CLIA [id number] [address] [place] Glucose [Mass/Vol] 91 mg/dL Normal 60-105 [facility] Comment on above: Order Comment: Speci men Type: BLOOD SPECIMEN Ordering Facility: [facility] Address: [address] [place] [address] Performed By: #### 3 016-3, 32228-2, HSTNT, 09544-5, 73182-9, 97056-8 #### [facility] CLIA [id number] [address] [place] HCO3 (Bld) [Moles/Vol] 24 mmol/L Normal 22-26 [facility] Comment on above: Order Comment: Speci men Type: BLOOD SPECIMEN Ordering Facility: [facility] Address: [address] [place] [address] Performed By: #### 3 016-3, 33659-0, HSTNT, 22841-7, 82961-6, 41734-0 #### [facility] CLIA [id number] [address] [place] Hematocrit (Bld) [Volume fraction] 35.0 % Low 39.0-51.0 [facility] Comment on above: Order Comment: Speci men Type: BLOOD SPECIMEN Ordering Facility: [facility] Address: [address] [place] [address] Performed By: #### 3 016-3, 03680-3, HSTNT, 34456-5, 29017-7, 74923-4 #### [facility] CLIA [id number] [address] [place] [address] [place] Hemoglobin (Bld) [Mass/Vol] 11.3 g/dL Low 13.0-17.0 [facility] Comment on above: Order Comment: Speci men Type: BLOOD SPECIMEN Ordering Facility: [facility] Address: [address] [place] [address] Performed By: #### 3 016-3, 44180-7, HSTNT, 36018-7, 47994-1, 36997-1 #### [facility] CLIA [id number] [address] [place] [address] [place] Lactate [Moles/Vol] 0.6 mmol/L Normal 0.5-2.2 [facility] Comment on above: Order Comment: Speci men Type: BLOOD SPECIMEN Ordering Facility: [facility] Address: [address] [place] [address] Performed By: #### 3 016-3, 48693-9, HSTNT, 80803-0, 00817-7, 29877-8 #### [facility] CLIA [id number] [address] [place] LITERS 3 Liters/min Normal [facility] Comment on above: Order Comment: Speci men Type: BLOOD SPECIMEN Ordering Facility: [facility] Address: [address] [place] [address] Performed By: #### 3 016-3, 74388-7, HSTNT, 68909-5, 07441-4, 81621-3 #### [facility] CLIA [id number] [address] [place] Methemoglobin (Bld) [Mass fraction] 1.0 % Normal 0.0-1.5 [facility] Comment on above: Order Comment: Speci men Type: BLOOD SPECIMEN Ordering Facility: [facility] Address: [address] [place] [address] Performed By: #### 3 016-3, 34617-9, HSTNT, 40337-0, 32361-3, 65814-1 #### [facility] CLIA [id number] [address] [place] O2 THERAPY NC = Nasal Cannula Normal [facility] Comment on above: Order Comment: Speci men Type: BLOOD SPECIMEN Ordering Facility: [facility] Address: [address] [place] [address] Performed By: #### 3 016-3, 72751-4, HSTNT, 40987-5, 54963-7, 76685-2 #### [facility] CLIA [id number] [address] [place] Oxygen (Bld) [Partial pressure] 86 mm Hg Normal 85-95 [facility] Comment on above: Order Comment: Speci men Type: BLOOD SPECIMEN Ordering Facility: [facility] Address: [address] [place] [address] Performed By: #### 3 016-3, 23291-1, HSTNT, 30517-8, 45970-7, 66938-6 #### [facility] CLIA [id number] [address] [place] Oxygen adjusted to patient's actual temperature (Bld) [Partial pressure] 87 mmHg Normal 85-95 [facility] Comment on above: Order Comment: Speci men Type: BLOOD SPECIMEN Ordering Facility: [facility] Address: [address] [place] [address] Performed By: #### 3 016-3, 96257-7, HSTNT, 89341-7, 67203-2, 68879-0 #### [facility] CLIA [id number] [address] STATES OF [facility] Oxyhemoglobin (BldA) [Mass fraction] 95 % Normal 95-98 [facility] Comment on above: Order Comment: Speci men Type: BLOOD SPECIMEN Ordering Facility: [facility] Address: [address] [place] [address] Performed By: #### 3 016-3, 08938-9, HSTNT, 07463-1, 42580-8, 63505-0 #### [facility] CLIA [id number] [address] STATES OF [facility] pH (Bld) 7.40 [pH] Normal 7.35-7.45 [facility] Comment on above: Order Comment: Speci men Type: BLOOD SPECIMEN Ordering Facility: [facility] Address: [address] [place] [address] Performed By: #### 3 016-3, 63013-3, HSTNT, 80127-4, 16456-6, 39090-1 #### [facility] CLIA [id number] [address] STATES OF [facility] pH adjusted to patient's actual temperature (Bld) 7.40 Normal 7.35-7.45 [facility] Comment on above: Order Comment: Speci men Type: BLOOD SPECIMEN Ordering Facility: [facility] Address: [address] [place] [address] Performed By: #### 3 016-3, 10042-5, HSTNT, 97230-8, 79483-7, 40775-8 #### [facility] CLIA [id number] [address] [place] [address] [place] Potassium [Moles/Vol] 3.9 mmol/L Normal 3.5-5.0 [facility] Comment on above: Order Comment: Speci men Type: BLOOD SPECIMEN Ordering Facility: [facility] Address: [address] [place] [address] Performed By: #### 3 016-3, 98358-1, HSTNT, 90856-1, 60140-5, 23229-8 #### [facility] CLIA [id number] 1 [place] [address] [place] Sodium [Moles/Vol] 130 mmol/L Low 136-144 [facility] Comment on above: Order Comment: Speci men Type: BLOOD SPECIMEN Ordering Facility: [facility] Address: [address] [place] [address] Performed By: #### 3 016-3, 98776-5, HSTNT, 51951-6, 47768-7, 56583-6 #### [facility] CLIA [id number] 1 [place] [address] [place] Basic metabolic 2000 panelon 03-03-2025 Anion gap [Moles/Vol] 9 mmol/L Normal 8-15 [facility] Comment on above: Order Comment: Speci men Type: BLOOD SPECIMEN Ordering Facility: [facility] Address: [address] [place] [address] Performed By: #### 3 016-3, 80162-2, HSTNT, 55433-9, 78208-5, 10306-8 #### [facility] CLIA [id number] [address] [place] [address] [place] Calcium [Mass/Vol] 8.4 mg/dL Low 8.5-10.2 [facility] Comment on above: Order Comment: Speci men Type: BLOOD SPECIMEN Ordering Facility: [facility] Address: [address] [place] [address] Performed By: #### 3 016-3, 51196-2, HSTNT, 65203-0, 08153-3, 20212-8 #### [facility] CLIA [id number] 1 [place] [address] [place] Chloride [Moles/Vol] 101 mmol/L Normal 98-107 [facility] Comment on above: Order Comment: Speci men Type: BLOOD SPECIMEN Ordering Facility: [facility] Address: [address] [place] [address] Performed By: #### 3 016-3, 83983-9, HSTNT, 36630-1, 27509-5, 77712-8 #### [facility] CLIA [id number] 1 [place] [address] [place] CO2 [Moles/Vol] 23 mmol/L Normal 22-30 [facility] Comment on above: Order Comment: Speci men Type: BLOOD SPECIMEN Ordering Facility: [facility] Address: [address] [place] [address] Performed By: #### 3 016-3, 76762-5, HSTNT, 07388-2, 61364-3, 84269-7 #### [facility] CLIA [id number] 1 [place] [address] [place] Creatinine [Mass/Vol] 0.85 mg/dL Normal 0.73-1.22 [facility] Comment on above: Order Comment: Speci men Type: BLOOD SPECIMEN Ordering Facility: [facility] Address: [address] [place] [address] Performed By: #### 3 016-3, 26533-0, HSTNT, 13660-4, 67164-4, 83330-5 #### [facility] CLIA [id number] 1 [place] [address] [place] eGFRcr SerPlBld CKD-EPI 2020 85 mL/min/1.73m??? Normal >=60 [facility] Comment on above: Order Comment: Speci men Type: BLOOD SPECIMEN Ordering Facility: [facility] Address: [address] [place] [address] Result Comment: Monie mated Glomerular Filtration Rate [...] actual GFR. Performed By: #### 3 016-3, 55582-3, HSTNT, 01911-5, 37133-0, 00278-6 #### [facility] CLIA [id number] 1 [place] [address] [place] Glucose [Mass/Vol] 93 mg/dL Normal 74-99 [facility] Comment on above: Order Comment: Sharon shaw Type: BLOOD SPECIMEN Ordering Facility: [facility] Address: [address] [place] [address] Result Comment: The [place] [employer] (ADA) provides guidance for cutoff [...] Standards of Medical Care in Diabetes 2016, [place] [employer]. Diabetes Care. 2016.39(Suppl 1). Performed By: #### 3 016-3, 44230-7, HSTNT, 01343-0, 94389-5, 81522-6 #### [facility] CLIA [id number] 1 [place] [address] [place] Potassium [Moles/Vol] 4.1 mmol/L Normal 3.7-5.1 [facility] Comment on above: Order Comment: Sharon shaw Type: BLOOD SPECIMEN Ordering Facility: [facility] Address: [address] [place] [address] Performed By: #### 3 016-3, 93513-6, HSTNT, 01247-4, 15334-5, 29353-8 #### [facility] CLIA [id number] [address] [place] Sodium [Moles/Vol] 133 mmol/L Low 136-144 [facility] Comment on above: Order Comment: Speci men Type: BLOOD SPECIMEN Ordering Facility: [facility] Address: [address] [place] [address] Performed By: #### 3 016-3, 33935-1, HSTNT, 96201-8, 81030-4, 78738-5 #### [facility] CLIA [id number] 1 [place] [address] [place] Urea nitrogen [Mass/Vol] 11 mg/dL Normal 9-24 [facility] Comment on above: Order Comment: Speci men Type: BLOOD SPECIMEN Ordering Facility: [facility] Address: [address] [place] [address] Performed By: #### 3 016-3, 36595-0, HSTNT, 16391-4, 25851-1, 48637-2 #### [facility] CLIA [id number] [address] [place] [address] [place] CBC panel Auto (Bld)on 03-03 Erythrocyte distribution width (RBC) [Ratio] 12.4 % Normal 11.5-15.0 [facility] Comment on above: Order Comment: Speci men Type: BLOOD SPECIMEN Ordering Facility: [facility] Address: [address] [place] [address] Performed By: #### 3 016-3, 92060-9, HSTNT, 18069-1, 87982-7, 42714-3 #### [facility] CLIA [id number] [address] [place] Hematocrit (Bld) [Volume fraction] 31.6 % Low 39.0-51.0 [facility] Comment on above: Order Comment: Speci men Type: BLOOD SPECIMEN Ordering Facility: [facility] Address: [address] [place] [address] Performed By: #### 3 016-3, 67289-7, HSTNT, 59974-9, 44181-5, 15103-6 #### [facility] CLIA [id number] [address] STATES OF [facility] Hemoglobin (Bld) [Mass/Vol] 10.9 g/dL Low 13.0-17.0 [facility] Comment on above: Order Comment: Speci men Type: BLOOD SPECIMEN Ordering Facility: [facility] Address: [address] [place] [address] Performed By: #### 3 016-3, 08111-1, HSTNT, 83487-9, 55330-9, 46117-9 #### [facility] CLIA [id number] [address] MCH (RBC) [Entitic mass] 31.5 pg Normal 26.0-34.0 [facility] Comment on above: Order Comment: Speci men Type: BLOOD SPECIMEN Ordering Facility: [facility] Address: [address] [place] [address] Performed By: #### 3 016-3, 43055-6, HSTNT, 83925-2, 61493-7, 96522-4 #### [facility] CLIA [id number] [address] STATES OF [facility] MCHC (RBC) [Mass/Vol] 34.5 g/dL Normal 30.5-36.0 [facility] Comment on above: Order Comment: Speci men Type: BLOOD SPECIMEN Ordering Facility: [facility] Address: [address] [place] [address] Performed By: #### 3 016-3, 33967-6, HSTNT, 78821-1, 92935-2, 28673-0 #### [facility] CLIA [id number] [address] OF [facility] MCV (RBC) [Entitic vol] 91.3 fL Normal 80.0-100.0 [facility] Comment on above: Order Comment: Speci men Type: BLOOD SPECIMEN Ordering Facility: [facility] Address: [address] [place] [address] Performed By: #### 3 016-3, 22313-3, HSTNT, 91605-7, 72773-4, 76782-4 #### [facility] CLIA [id number] [address] [place] Nucleated RBC (Bld) [#/Vol] 10*3/uL Normal <0.01 [facility] Comment on above: Order Comment: Speci men Type: BLOOD SPECIMEN Ordering Facility: [facility] Address: [address] [place] [address] Performed By: #### 3 016-3, 53602-2, HSTNT, 25217-0, 35533-5, 72876-0 #### [facility] CLIA [id number] [address] [place] Platelet mean volume (Bld) [Entitic vol] 10.3 fL Normal 9.0-12.7 [facility] Comment on above: Order Comment: Speci men Type: BLOOD SPECIMEN Ordering Facility: [facility] Address: [address] [place] [address] Performed By: #### 3 016-3, 47737-1, HSTNT, 21843-6, 07346-7, 82947-4 #### [facility] CLIA [id number] [address] [place] Platelets (Bld) [#/Vol] 148 10*3/uL Low 150-400 [facility] Comment on above: Order Comment: Speci men Type: BLOOD SPECIMEN Ordering Facility: [facility] Address: [address] [place] [address] Performed By: #### 3 016-3, 37726-6, HSTNT, 19982-3, 80560-4, 29727-9 #### [facility] CLIA [id number] [address] [place] RBC (Bld) [#/Vol] 3.46 10*6/uL Low 4.20-6.00 [facility] Comment on above: Order Comment: Speci men Type: BLOOD SPECIMEN Ordering Facility: [facility] Address: [address] [place] [address] Performed By: #### 3 016-3, 06856-7, HSTNT, 40977-7, 57354-9, 10193-7 #### [facility] CLIA [id number] [address] [place] [address] [place] WBC (Bld) [#/Vol] 13.46 10*3/uL High 3.70-11.00 [facility] Comment on above: Order Comment: Speci men Type: BLOOD SPECIMEN Ordering Facility: [facility] Address: [address] [facility] [place] [address] Performed By: #### 3 016-3, 33849-5, HSTNT, 25872-7, 10569-1, 15838-2 #### [facility] CLIA [id number] [address] STATES OF [facility] ECG COMPLETEon 03-03-2025 ECG COMPLETE Ventricular Rate : 6 9 BPM Atrial Rate : 69 BPM P-R Interval : 160 ms QRS Duration : 88 ms Q-T Interval : 424 ms QTC Calculation(Bazett) : 454 ms Calculated P Flaxton : 55 degrees Calculated R Flaxton : 4 degrees Calculated T Flaxton : -10 degrees NORMAL SINUS RHYTHM WITH SINUS ARRHYTHMIA NONSPECIFIC T WAVE ABNORMALITY ABNORMAL ECG WHEN COMPARED WITH ECG OF 02-Mar-2025 14:10, SINUS RHYTHM HAS REPLACED ATRIAL FIBRILLATION NON-SPECIFIC CHANGE IN ST SEGMENT IN ANTERIOR LEADS NONSPECIFIC T WAVE ABNORMALITY NOW EVIDENT IN INFERIOR LEADS QT HAS SHORTENED Confirmed by MD HOPPER VINAY ([id number]) on 03/03/2025 12:33:00 PM NAME : ELSA PALACIO PID : [id number] : 1940 Gender : Male Race : ORD : [id number] Procedure Date : Mar 03 2025 04:23:56 [...] HAS SHORTENED Confirmed by MD HOPPER VINAY ([id number]) on 03/03/2025 12:33:00 PM Test Reason : Post-OP Location : [address] : [place] [address] Overread By : MD HOPPER VINAY Edited By : MD HOPPER VINAY Referred By : SHAWN CHAU Acquired by : ALLISON LORD [facility] Magnesium SerPl-mCncon 03-03 Magnesium [Mass/Vol] 1.7 mg/dL Normal 1.7-2.3 [facility] Comment on above: Order Comment: Speci men Type: BLOOD SPECIMEN Ordering Facility: [facility] Address: [facility] [place] [address] Performed By: #### 3 016-3, 57611-8, HSTNT, 20769-8, 34453-0, 24053-2 #### [facility] CLIA [id number] [address] THERAPY NTon 03-03-2025 THERAPY NT HNO ID: [id number] Author: OSCAR BHAKTA, PT Service: Physical Therapy Author Type: Physical Therapist Type: Therapy (PT/OT/Speech/Resp) Filed: 03/03/2025 14:34 Note Text: Physical Therapy Evaluation Summary SERVICE DATE: 03/03/2025 SERVICE TIME: 1014 to 1037 ROOM: [place] [address] PT 6 Clicks Score: 18 DISCHARGE RECOMMENDATIONS [...] HOSPITAL COURSE Pt is a transfer from [facility]. Pt c/o chest pain while mowing [...] and signs-other TREATMENT INTERVENTIONS Evaluation; Therapeutic Activity (35129) $ Evaluation-Moderate (57332) Billed Units: 1 unit Therapeutic Activity (20334) Treatment Minutes: 8 $ Therapeutic Activity (52406) Billed Units: 1 unit Cues for safe [...] date. A (more content not included)... Normal [facility] XR CHEST 1V FRONTALon 2024 XR [...] median sternotomy wires and sternal plate. 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 Lungs and pleura: No pneumothorax. Diminished aeration remains at both lung bases due to postoperative atelectasis and probable pleural effusion. Cardiomediastinal silhouette: Stable. Other: No significant additional findings. IMPRESSION: Status post extubation. Compliance Review Specialist: GAEL Transcribe Date/Time: Mar 03 2025 6:40A Dictated by : NEIL CARTER MD This examination was interpreted and the report reviewed and electronically signed by: NEIL CARTER MD on Mar 03 2025 6:41AM EST [id number] N [facility] ANES POSTPROC EVALon 025 ANES POSTPROC EVAL HNO ID: [id number] Author: MOLINA PALOMO MD Service: Anesthesiology Author Type: Physician Type: Anesthesia Postprocedure Evaluation Filed: 03/02/2025 17:14 Note Text: POST ANESTHESIA EVALUATION NOTE : 1940 Procedure Summary Date: 03/02/25 Room / Location: IN OR / IN OR Anesthesia Start: 706 Anesthesia Stop: 1412 [...] March 02, 2025 TIME: 5:13 PM CSN: [id number] [facility] ANES PRE-OPon 03-02-2025 ANES PRE-OP HNO ID: [id number] Author: BROOKS MONTEJO MD Service: Anesthesiology Author Type: Physician Type: Anesthesia Preprocedure Evaluation Filed: 03/02/2025 07:01 Note Text: ANESTHESIOLOGY DAY OF SURGERY NOTE : 1940 Procedure Information Date/Time: 03/02/25714 Procedure: 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 levothyroxine (more content not included)... Normal [facility] ARTERIAL BLOOD GASESon 03-02 Base deficit (BldA) [Moles/Vol] -1 mmol/L Normal -2-0 [facility] Comment on above: Order Comment: Speci men Type: BLOOD SPECIMEN Ordering Facility: [facility] Address: [address] [place] [address] Performed By: #### 3 016-3, 12568-1, HSTNT, 58338-7, 64803-8, 35749-7 #### [facility] CLIA [id number] [address] [place] [address] [place] Body temperature 98.78 [degF] Normal [facility] Comment on above: Order Comment: Speci men Type: BLOOD SPECIMEN Ordering Facility: [facility] Address: [address] [place] [address] Performed By: #### 3 016-3, 10765-9, HSTNT, 19401-6, 70711-0, 11346-6 #### [facility] CLIA [id number] [address] Calcium.ionized (BldV) [Mass/Vol] 1.23 mmol/L Normal 1.08-1.30 [facility] Comment on above: Order Comment: Speci men Type: BLOOD SPECIMEN Ordering Facility: [facility] Address: [address] [place] [address] Performed By: #### 3 016-3, 43885-2, HSTNT, 30340-5, 39239-4, 60907-5 #### [facility] CLIA [id number] [address] Calcium.ionized adjusted to pH 7.4 (BldA) [Moles/Vol] 1.21 mmol/L Normal 1.08-1.30 [facility] Comment on above: Order Comment: Speci men Type: BLOOD SPECIMEN Ordering Facility: [facility] Address: [address] [place] [address] Performed By: #### 3 016-3, 08369-9, HSTNT, 30674-5, 88193-8, 66715-5 #### [facility] CLIA [id number] [address] Carboxyhemoglobin (BldA) [Mass fraction] 1.1 % Normal 0.0-2.0 [facility] Comment on above: Order Comment: Speci men Type: BLOOD SPECIMEN Ordering Facility: [facility] Address: [address] [place] [address] Result Comment: Carb oxyhemoglobin Reference Range for Smokers: 2.0-8.0% Performed By: #### 3 016-3, 54191-2, HSTNT, 70441-7, 27769-5, 94956-7 #### [facility] CLIA [id number] [address] [place] Chloride [Moles/Vol] 102 mmol/L Normal 97-105 [facility] Comment on above: Order Comment: Speci men Type: BLOOD SPECIMEN Ordering Facility: [facility] Address: [address] [place] [address] Performed By: #### 3 016-3, 90407-5, HSTNT, 81544-9, 19585-6, 35593-6 #### [facility] CLIA [id number] [address] [place] CO2 (Bld) [Partial pressure] 41 mm Hg Normal 36-46 [facility] Comment on above: Order Comment: Speci men Type: BLOOD SPECIMEN Ordering Facility: [facility] Address: [address] [place] [address] Performed By: #### 3 016-3, 94323-5, HSTNT, 71076-6, 57114-4, 54112-3 #### [facility] CLIA [id number] [address] STATES [place] [facility] CO2 adjusted to patient's actual temperature (Bld) [Partial pressure] 41 mmHg Normal 36-46 [facility] Comment on above: Order Comment: Speci men Type: BLOOD SPECIMEN Ordering Facility: [facility] Address: [address] [place] [address] Performed By: #### 3 016-3, 20614-5, HSTNT, 74191-0, 58387-0, 63776-2 #### [facility] CLIA [id number] [address] [place] [address] [place] Glucose [Mass/Vol] 120 mg/dL High 60-105 [facility] Comment on above: Order Comment: Speci men Type: BLOOD SPECIMEN Ordering Facility: [facility] Address: [address] [place] [address] Performed By: #### 3 016-3, 63602-1, HSTNT, 42113-1, 62055-2, 52665-1 #### [facility] CLIA [id number] [address] [place] HCO3 (Bld) [Moles/Vol] 23 mmol/L Normal 22-26 [facility] Comment on above: Order Comment: Speci men Type: BLOOD SPECIMEN Ordering Facility: [facility] Address: [address] [place] [address] Performed By: #### 3 016-3, 53887-1, HSTNT, 60070-1, 89282-5, 99597-2 #### [facility] CLIA [id number] [address] [place] Hematocrit (Bld) [Volume fraction] 35.0 % Low 39.0-51.0 [facility] Comment on above: Order Comment: Speci men Type: BLOOD SPECIMEN Ordering Facility: [facility] Address: [address] [place] [address] Performed By: #### 3 016-3, 17756-1, HSTNT, 34705-4, 73044-0, 73190-6 #### [facility] CLIA [id number] [address] [place] [facility] Hemoglobin (Bld) [Mass/Vol] 11.3 g/dL Low 13.0-17.0 [facility] Comment on above: Order Comment: Speci men Type: BLOOD SPECIMEN Ordering Facility: [facility] Address: [address] [place] [address] Performed By: #### 3 016-3, 67109-6, HSTNT, 05294-2, 54157-5, 57431-5 #### [facility] CLIA [id number] [address] [place] Lactate [Moles/Vol] 0.6 mmol/L Normal 0.5-2.2 [facility] Comment on above: Order Comment: Speci men Type: BLOOD SPECIMEN Ordering Facility: [facility] Address: [address] [place] [address] Performed By: #### 3 016-3, 20151-0, HSTNT, 64602-2, 39716-1, 46358-6 #### [facility] CLIA [id number] [address] [place] LITERS 4 Liters/min Normal [facility] Comment on above: Order Comment: Speci men Type: BLOOD SPECIMEN Ordering Facility: [facility] Address: [address] [place] [address] Performed By: #### 3 016-3, 82596-8, HSTNT, 47287-7, 84116-3, 28822-3 #### [facility] CLIA [id number] [address] [place] Methemoglobin (Bld) [Mass fraction] 1.0 % Normal 0.0-1.5 [facility] Comment on above: Order Comment: Speci men Type: BLOOD SPECIMEN Ordering Facility: [facility] Address: [address] [place] [address] Performed By: #### 3 016-3, 07524-3, HSTNT, 40710-6, 95174-0, 14471-6 #### [facility] CLIA [id number] [address] O2 THERAPY NC = Nasal Cannula Normal [facility] Comment on above: Order Comment: Speci men Type: BLOOD SPECIMEN Ordering Facility: [facility] Address: [address] [place] [address] Performed By: #### 3 016-3, 62846-1, HSTNT, 48917-1, 20236-8, 18988-4 #### [facility] CLIA [id number] [address] [place] Oxygen (Bld) [Partial pressure] 93 mm Hg Normal 85-95 [facility] Comment on above: Order Comment: Speci men Type: BLOOD SPECIMEN Ordering Facility: [facility] Address: [address] [place] [address] Performed By: #### 3 016-3, 85935-5, HSTNT, 74426-6, 06659-1, 01121-1 #### [facility] CLIA [id number] [address] [place] Oxygen adjusted to patient's actual temperature (Bld) [Partial pressure] 93 mmHg Normal 85-95 [facility] Comment on above: Order Comment: Speci men Type: BLOOD SPECIMEN Ordering Facility: [facility] Address: [address] [place] [address] Performed By: #### 3 016-3, 30469-6, HSTNT, 11221-9, 56799-3, 38246-9 #### [facility] CLIA [id number] 1 [place] [address] [place] Oxyhemoglobin (BldA) [Mass fraction] 95 % Normal 95-98 [facility] Comment on above: Order Comment: Speci men Type: BLOOD SPECIMEN Ordering Facility: [facility] Address: [address] [place] [address] Performed By: #### 3 016-3, 21580-7, HSTNT, 17437-0, 91351-8, 60192-4 #### [facility] CLIA [id number] [address] [place] [address] [place] pH (Bld) 7.38 [pH] Normal 7.35-7.45 [facility] Comment on above: Order Comment: Speci men Type: BLOOD SPECIMEN Ordering Facility: [facility] Address: [address] [place] [address] Performed By: #### 3 016-3, 50948-1, HSTNT, 64986-4, 16714-8, 39994-4 #### [facility] CLIA [id number] 1 [place] [address] [place] pH adjusted to patient's actual temperature (Bld) 7.38 Normal 7.35-7.45 [facility] Comment on above: Order Comment: Speci men Type: BLOOD SPECIMEN Ordering Facility: [facility] Address: [address] [place] [address] Performed By: #### 3 016-3, 86641-6, HSTNT, 50599-5, 10843-8, 66384-9 #### [facility] CLIA [id number] 1 [place] [address] [place] Potassium [Moles/Vol] 4.4 mmol/L Normal 3.5-5.0 [facility] Comment on above: Order Comment: Speci men Type: BLOOD SPECIMEN Ordering Facility: [facility] Address: [address] [place] [address] Performed By: #### 3 016-3, 53426-0, HSTNT, 02280-8, 13731-5, 87740-1 #### [facility] CLIA [id number] 1 [place] [address] [place] Sodium [Moles/Vol] 130 mmol/L Low 136-144 [facility] Comment on above: Order Comment: Speci men Type: BLOOD SPECIMEN Ordering Facility: [facility] Address: [address] [place] [address] Performed By: #### 3 016-3, 99453-8, HSTNT, 23871-1, 80211-1, 62763-2 #### [facility] CLIA [id number] 1 [place] [address] [place] Base deficit (BldA) [Moles/Vol] -3 mmol/L Low -2-0 [facility] Comment on above: Order Comment: Speci men Type: BLOOD SPECIMEN Ordering Facility: [facility] Address: [address] [place] [address] Performed By: #### 3 016-3, 15480-4, HSTNT, 44733-1, 20443-6, 74108-4 #### [facility] CLIA [id number] 1 [place] [address] [place] Body temperature 98.6 [degF] Normal [facility] Comment on above: Order Comment: Speci men Type: BLOOD SPECIMEN Ordering Facility: [facility] Address: [address] [place] [address] Performed By: #### 3 016-3, 90164-6, HSTNT, 14891-2, 75983-2, 39008-2 #### [facility] CLIA [id number] 1 [place] [address] [place] Calcium.ionized (BldV) [Mass/Vol] 1.33 mmol/L High 1.08-1.30 [facility] Comment on above: Order Comment: Speci men Type: BLOOD SPECIMEN Ordering Facility: [facility] Address: [address] [place] [address] Performed By: #### 3 016-3, 99451-3, HSTNT, 13190-3, 94594-6, 31306-7 #### [facility] CLIA [id number] 1 [place] [address] [place] [facility] Calcium.ionized adjusted to pH 7.4 (BldA) [Moles/Vol] 1.29 mmol/L Normal 1.08-1.30 [facility] Comment on above: Order Comment: Speci men Type: BLOOD SPECIMEN Ordering Facility: [facility] Address: [address] [place] [address] Performed By: #### 3 016-3, 68127-8, HSTNT, 55477-3, 14674-9, 65725-3 #### [facility] CLIA [id number] [address] [place] Carboxyhemoglobin (BldA) [Mass fraction] 0.9 % Normal 0.0-2.0 [facility] Comment on above: Order Comment: Speci men Type: BLOOD SPECIMEN Ordering Facility: [facility] Address: [address] [place] [address] Result Comment: Carb oxyhemoglobin Reference Range for Smokers: 2.0-8.0% Performed By: #### 3 016-3, 14397-2, HSTNT, 07168-5, 65024-8, 72060-1 #### [facility] CLIA [id number] 1 [place] [address] [place] Chloride [Moles/Vol] 103 mmol/L Normal 97-105 [facility] Comment on above: Order Comment: Speci men Type: BLOOD SPECIMEN Ordering Facility: [facility] Address: [address] [place] [address] Performed By: #### 3 016-3, 10564-5, HSTNT, 99842-2, 30415-3, 91573-0 #### [facility] CLIA [id number] 1 [place] [address] [place] CO2 (Bld) [Partial pressure] 44 mm Hg Normal 36-46 [facility] Comment on above: Order Comment: Speci men Type: BLOOD SPECIMEN Ordering Facility: [facility] Address: [address] [place] [address] Performed By: #### 3 016-3, 61034-9, HSTNT, 14325-8, 30762-6, 53621-4 #### [facility] CLIA [id number] 1 [place] [address] [place] Glucose [Mass/Vol] 148 mg/dL High 60-105 [facility] Comment on above: Order Comment: Speci men Type: BLOOD SPECIMEN Ordering Facility: [facility] Address: [address] [place] [address] Performed By: #### 3 016-3, 47094-8, HSTNT, 72019-2, 64440-9, 19778-8 #### [facility] CLIA [id number] [address] [place] [address] [place] HCO3 (Bld) [Moles/Vol] 23 mmol/L Normal 22-26 [facility] Comment on above: Order Comment: Speci men Type: BLOOD SPECIMEN Ordering Facility: [facility] Address: [address] [place] [address] Performed By: #### 3 016-3, 13874-8, HSTNT, 38454-5, 71155-7, 33286-2 #### [facility] CLIA [id number] 1 [place] [address] [place] Hematocrit (Bld) [Volume fraction] 35.9 % Low 39.0-51.0 [facility] Comment on above: Order Comment: Speci men Type: BLOOD SPECIMEN Ordering Facility: [facility] Address: [address] [place] [address] Performed By: #### 3 016-3, 03805-6, HSTNT, 80400-0, 49659-7, 84077-8 #### [facility] CLIA [id number] [address] Hemoglobin (Bld) [Mass/Vol] 11.7 g/dL Low 13.0-17.0 [facility] Comment on above: Order Comment: Speci men Type: BLOOD SPECIMEN Ordering Facility: [facility] Address: [address] [place] [address] Performed By: #### 3 016-3, 15746-8, HSTNT, 57012-3, 59345-6, 17844-2 #### [facility] CLIA [id number] [address] [place] Lactate [Moles/Vol] 3.0 mmol/L High 0.5-2.2 [facility] Comment on above: Order Comment: Speci men Type: BLOOD SPECIMEN Ordering Facility: [facility] Address: [address] [place] [address] Performed By: #### 3 016-3, 56343-5, HSTNT, 07836-6, 45909-7, 25748-0 #### [facility] CLIA [id number] [address] [place] Methemoglobin (Bld) [Mass fraction] 1.0 % Normal 0.0-1.5 [facility] Comment on above: Order Comment: Speci men Type: BLOOD SPECIMEN Ordering Facility: [facility] Address: [address] [place] [address] Performed By: #### 3 016-3, 37811-2, HSTNT, 81590-2, 51812-5, 41865-2 #### [facility] CLIA [id number] [address] [place] O2 THERAPY VENT=Ventilator Normal [facility] Comment on above: Order Comment: Speci men Type: BLOOD SPECIMEN Ordering Facility: [facility] Address: [address] [place] [address] Performed By: #### 3 016-3, 88041-5, HSTNT, 34867-5, 74048-4, 45133-2 #### [facility] CLIA [id number] [address] [place] [address] [place] Oxygen (Bld) [Partial pressure] 228 mm Hg High 85-95 [facility] Comment on above: Order Comment: Speci men Type: BLOOD SPECIMEN Ordering Facility: [facility] Address: [address] [place] [address] Performed By: #### 3 016-3, 31122-1, HSTNT, 97133-9, 52334-7, 07897-6 #### [facility] CLIA [id number] 1 [place] [address] [place] Oxyhemoglobin (BldA) [Mass fraction] 98 % Normal 95-98 [facility] Comment on above: Order Comment: Speci men Type: BLOOD SPECIMEN Ordering Facility: [facility] Address: [address] [place] [address] Performed By: #### 3 016-3, 04297-1, HSTNT, 54797-6, 50310-4, 39521-8 #### [facility] CLIA [id number] 1 [place] [address] [place] pH (Bld) 7.34 [pH] Low 7.35-7.45 [facility] Comment on above: Order Comment: Speci men Type: BLOOD SPECIMEN Ordering Facility: [facility] Address: [address] [place] [address] Performed By: #### 3 016-3, 62991-6, HSTNT, 94015-7, 07039-2, 55867-8 #### [facility] CLIA [id number] 1 [place] [address] [place] Potassium [Moles/Vol] 3.5 mmol/L Normal 3.5-5.0 [facility] Comment on above: Order Comment: Speci men Type: BLOOD SPECIMEN Ordering Facility: [facility] Address: [address] [place] [address] Performed By: #### 3 016-3, 43392-6, HSTNT, 51677-4, 86576-2, 88070-3 #### [facility] CLIA [id number] [address] [place] [address] [place] Sodium [Moles/Vol] 132 mmol/L Low 136-144 [facility] Comment on above: Order Comment: Speci men Type: BLOOD SPECIMEN Ordering Facility: [facility] Address: [address] [place] [address] Performed By: #### 3 016-3, 04916-2, HSTNT, 73536-2, 68825-8, 66477-3 #### [facility] CLIA [id number] 1 [place] [address] [place] Basic metabolic 2000 panelon 03-02-2025 Anion gap [Moles/Vol] 11 mmol/L Normal 8-15 [facility] Comment on above: Order Comment: Speci men Type: BLOOD SPECIMEN Ordering Facility: [facility] Address: [address] [place] [address] Performed By: #### 3 016-3, 74079-7, HSTNT, 23614-3, 85409-8, 33198-3 #### [facility] CLIA [id number] [address] [place] Calcium [Mass/Vol] 9.3 mg/dL Normal 8.5-10.2 [facility] Comment on above: Order Comment: Speci men Type: BLOOD SPECIMEN Ordering Facility: [facility] Address: [address] [place] [address] Performed By: #### 3 016-3, 99952-3, HSTNT, 80739-4, 66721-0, 63166-3 #### [facility] CLIA [id number] [address] [place] Chloride [Moles/Vol] 102 mmol/L Normal 98-107 [facility] Comment on above: Order Comment: Speci men Type: BLOOD SPECIMEN Ordering Facility: [facility] Address: [address] [place] [address] Performed By: #### 3 016-3, 07324-0, HSTNT, 92297-6, 33043-9, 46204-5 #### [facility] CLIA [id number] [address] [place] [address] [place] CO2 [Moles/Vol] 22 mmol/L Normal 22-30 [facility] Comment on above: Order Comment: Speci men Type: BLOOD SPECIMEN Ordering Facility: [facility] Address: [address] [place] [address] Performed By: #### 3 016-3, 91150-6, HSTNT, 61186-3, 18992-0, 57912-7 #### [facility] CLIA [id number] [address] [place] Creatinine [Mass/Vol] 1.00 mg/dL Normal 0.73-1.22 [facility] Comment on above: Order Comment: Speci men Type: BLOOD SPECIMEN Ordering Facility: [facility] Address: [address] [place] [address] Performed By: #### 3 016-3, 96342-0, HSTNT, 68444-1, 35023-7, 55188-8 #### [facility] CLIA [id number] [address] [place] eGFRcr SerPlBld CKD-EPI 2020 74 mL/min/1.73m??? Normal >=60 [facility] Comment on above: Order Comment: Speci men Type: BLOOD SPECIMEN Ordering Facility: [facility] Address: [address] [place] [address] Result Comment: Monie mated Glomerular Filtration Rate [...] actual GFR. Performed By: #### 3 016-3, 74098-6, HSTNT, 61513-8, 11483-5, 57721-4 #### [facility] CLIA [id number] [address] [place] [address] [place] Glucose [Mass/Vol] 147 mg/dL High 74-99 [facility] Comment on above: Order Comment: Sharon shaw Type: BLOOD SPECIMEN Ordering Facility: [facility] Address: [address] [place] [address] Result Comment: The [place] [employer] (ADA) provides guidance for cutoff [...] Standards of Medical Care in Diabetes 2016, [place] [employer]. Diabetes Care. 2016.39(Suppl 1). Performed By: #### 3 016-3, 74681-4, HSTNT, 42779-1, 22160-0, 54057-3 #### [facility] CLIA [id number] [address] [place] [address] [place] Potassium [Moles/Vol] 3.6 mmol/L Low 3.7-5.1 [facility] Comment on above: Order Comment: Sharon shaw Type: BLOOD SPECIMEN Ordering Facility: [facility] Address: [address] [place] [address] Performed By: #### 3 016-3, 96389-5, HSTNT, 04438-4, 06494-1, 72966-3 #### [facility] CLIA [id number] [address] [place] [address] [place] Sodium [Moles/Vol] 135 mmol/L Low 136-144 [facility] Comment on above: Order Comment: Sharon shaw Type: BLOOD SPECIMEN Ordering Facility: [facility] Address: [address] [place] [address] Performed By: #### 3 016-3, 31195-1, HSTNT, 62162-8, 53741-8, 80185-8 #### [facility] CLIA [id number] [address] [place] [address] [place] Urea nitrogen [Mass/Vol] 14 mg/dL Normal 9-24 [facility] Comment on above: Order Comment: Speci men Type: BLOOD SPECIMEN Ordering Facility: [facility] Address: [address] [place] [address] Performed By: #### 3 016-3, 88674-5, HSTNT, 41241-4, 34719-7, 10365-2 #### [facility] CLIA [id number] 1 [place] [address] [place] Anion gap [Moles/Vol] 10 mmol/L Normal 8-15 [facility] Comment on above: Order Comment: Speci men Type: BLOOD SPECIMEN Ordering Facility: [facility] Address: [address] [place] [address] Performed By: #### 3 016-3, 02409-4, HSTNT, 13419-9, 50803-2, 20618-9 #### [facility] CLIA [id number] 1 [place] [address] [place] Calcium [Mass/Vol] 9.4 mg/dL Normal 8.5-10.2 [facility] Comment on above: Order Comment: Speci men Type: BLOOD SPECIMEN Ordering Facility: [facility] Address: [address] [place] [address] Performed By: #### 3 016-3, 83411-7, HSTNT, 16496-6, 94881-3, 54552-0 #### [facility] CLIA [id number] 1 [place] [address] [place] Chloride [Moles/Vol] 100 mmol/L Normal 98-107 [facility] Comment on above: Order Comment: Speci men Type: BLOOD SPECIMEN Ordering Facility: [facility] Address: [address] [place] [address] Performed By: #### 3 016-3, 51362-9, HSTNT, 44801-7, 78159-2, 43213-4 #### [facility] CLIA [id number] 1 [place] [address] [place] CO2 [Moles/Vol] 26 mmol/L Normal 22-30 [facility] Comment on above: Order Comment: Speci colin Type: BLOOD SPECIMEN Ordering Facility: [facility] Address: [address] [place] [address] Performed By: #### 3 016-3, 65908-7, HSTNT, 33899-5, 93361-2, 28023-9 #### [facility] CLIA [id number] 1 [place] [address] [place] Creatinine [Mass/Vol] 1.21 mg/dL Normal 0.73-1.22 [facility] Comment on above: Order Comment: Speci men Type: BLOOD SPECIMEN Ordering Facility: [facility] Address: [address] [place] [address] Performed By: #### 3 016-3, 24987-6, HSTNT, 62970-6, 04642-5, 47079-8 #### [facility] CLIA [id number] [address] [place] eGFRcr SerPlBld CKD-EPI 2020 59 mL/min/1.73m??? Low >=60 [facility] Comment on above: Order Comment: Sharon shaw Type: BLOOD SPECIMEN Ordering Facility: [facility] Address: [address] [place] [address] Result Comment: Monie mated Glomerular Filtration Rate [...] actual GFR. Performed By: #### 3 016-3, 53390-9, HSTNT, 50197-1, 83663-2, 90393-1 #### [facility] CLIA [id number] 1 [place] [address] [place] Glucose [Mass/Vol] 100 mg/dL High 74-99 [facility] Comment on above: Order Comment: Sharon shaw Type: BLOOD SPECIMEN Ordering Facility: [facility] Address: [address] [place] [address] Result Comment: The [place] Diabetes Association (ADA) provides guidance for cutoff [...] Standards of Medical Care in Diabetes 2016, [place] [employer]. Diabetes Care. 2016.39(Suppl 1). Performed By: #### 3 016-3, 51326-5, HSTNT, 93418-8, 08588-9, 24385-3 #### [facility] CLIA [id number] 1 [place] [address] [place] Potassium [Moles/Vol] 4.1 mmol/L Normal 3.7-5.1 [facility] Comment on above: Order Comment: Sharon shaw Type: BLOOD SPECIMEN Ordering Facility: [facility] Address: [address] [place] [address] Performed By: #### 3 016-3, 78728-7, HSTNT, 04026-2, 79454-1, 67786-7 #### [facility] CLIA [id number] 1 [place] [address] [place] Sodium [Moles/Vol] 136 mmol/L Normal 136-144 [facility] Comment on above: Order Comment: Sharon shaw Type: BLOOD SPECIMEN Ordering Facility: [facility] Address: [address] [place] [address] Performed By: #### 3 016-3, 71182-8, HSTNT, 35612-4, 35430-7, 49619-3 #### [facility] CLIA [id number] 1 [place] [address] [place] Urea nitrogen [Mass/Vol] 16 mg/dL Normal 9-24 [facility] Comment on above: Order Comment: Speci men Type: BLOOD SPECIMEN Ordering Facility: [facility] Address: [address] [place] [address] Performed By: #### 3 016-3, 01429-2, HSTNT, 76960-8, 83178-0, 58541-3 #### [facility] CLIA [id number] 1 [place] [address] [place] CBC panel Auto (Bld)on 03-02 Erythrocyte distribution width (RBC) [Ratio] 12.4 % Normal 11.5-15.0 [facility] Comment on above: Order Comment: Speci men Type: BLOOD SPECIMEN Ordering Facility: [facility] Address: [address] [place] [address] Performed By: #### 3 016-3, 80396-6, HSTNT, 84003-4, 61798-6, 89910-1 #### [facility] CLIA [id number] [address] [place] Hematocrit (Bld) [Volume fraction] 33.1 % Low 39.0-51.0 [facility] Comment on above: Order Comment: Speci men Type: BLOOD SPECIMEN Ordering Facility: [facility] Address: [address] [place] [address] Performed By: #### 3 016-3, 22200-8, HSTNT, 41746-1, 15948-9, 15346-5 #### [facility] CLIA [id number] 1 [place] [address] [place] Hemoglobin (Bld) [Mass/Vol] 11.6 g/dL Low 13.0-17.0 [facility] Comment on above: Order Comment: Speci men Type: BLOOD SPECIMEN Ordering Facility: [facility] Address: [address] [place] [address] Performed By: #### 3 016-3, 88297-7, HSTNT, 02508-9, 06904-2, 69836-6 #### [facility] CLIA [id number] [address] MCH (RBC) [Entitic mass] 32.0 pg Normal 26.0-34.0 [facility] Comment on above: Order Comment: Speci men Type: BLOOD SPECIMEN Ordering Facility: [facility] Address: [address] [place] [address] Performed By: #### 3 016-3, 20153-1, HSTNT, 80197-3, 09565-8, 99097-5 #### [facility] CLIA [id number] [address] MCHC (RBC) [Mass/Vol] 35.0 g/dL Normal 30.5-36.0 [facility] Comment on above: Order Comment: Speci men Type: BLOOD SPECIMEN Ordering Facility: [facility] Address: [address] [place] [address] Performed By: #### 3 016-3, 99083-7, HSTNT, 58957-4, 68745-3, 07172-6 #### [facility] CLIA [id number] [address] MCV (RBC) [Entitic vol] 91.2 fL Normal 80.0-100.0 [facility] Comment on above: Order Comment: Speci men Type: BLOOD SPECIMEN Ordering Facility: [facility] Address: [address] [place] [address] Performed By: #### 3 016-3, 96892-2, HSTNT, 23846-0, 77939-3, 01414-9 #### [facility] CLIA [id number] [address] Nucleated RBC (Bld) [#/Vol] 10*3/uL Normal <0.01 [facility] Comment on above: Order Comment: Speci men Type: BLOOD SPECIMEN Ordering Facility: [facility] Address: [address] [place] [address] Performed By: #### 3 016-3, 77313-7, HSTNT, 88832-1, 07568-6, 11062-5 #### [facility] CLIA [id number] [address] [place] Platelet mean volume (Bld) [Entitic vol] 10.5 fL Normal 9.0-12.7 [facility] Comment on above: Order Comment: Speci men Type: BLOOD SPECIMEN Ordering Facility: [facility] Address: [address] [place] [address] Performed By: #### 3 016-3, 65682-5, HSTNT, 72965-6, 09167-3, 49779-2 #### [facility] CLIA [id number] [address] Platelets (Bld) [#/Vol] 166 10*3/uL Normal 150-400 [facility] Comment on above: Order Comment: Speci men Type: BLOOD SPECIMEN Ordering Facility: [facility] Address: [address] [place] [address] Performed By: #### 3 016-3, 55597-3, HSTNT, 59521-5, 43826-9, 44889-7 #### [facility] CLIA [id number] [address] [place] RBC (Bld) [#/Vol] 3.63 10*6/uL Low 4.20-6.00 [facility] Comment on above: Order Comment: Speci men Type: BLOOD SPECIMEN Ordering Facility: [facility] Address: [address] [place] [address] Performed By: #### 3 016-3, 00711-9, HSTNT, 57725-8, 29572-8, 36679-3 #### [facility] CLIA [id number] [address] [place] WBC (Bld) [#/Vol] 25.71 10*3/uL High 3.70-11.00 [facility] Comment on above: Order Comment: Speci men Type: BLOOD SPECIMEN Ordering Facility: [facility] Address: [address] [place] [address] Performed By: #### 3 016-3, 62676-4, HSTNT, 77691-5, 98409-4, 21224-8 #### [facility] CLIA [id number] [address] Erythrocyte distribution width (RBC) [Ratio] 12.3 % Normal 11.5-15.0 [facility] Comment on above: Order Comment: Speci men Type: BLOOD SPECIMEN Ordering Facility: [facility] Address: [address] [place] [address] Performed By: #### 3 016-3, 20021-7, HSTNT, 03917-6, 01839-8, 26607-1 #### [facility] CLIA [id number] [address] [place] [address] Hematocrit (Bld) [Volume fraction] 43.4 % Normal 39.0-51.0 [facility] Comment on above: Order Comment: Speci men Type: BLOOD SPECIMEN Ordering Facility: [facility] Address: [address] [place] [address] Performed By: #### 3 016-3, 92542-6, HSTNT, 32936-1, 35786-7, 68302-9 #### [facility] CLIA [id number] [address] [place] [address] [place] Hemoglobin (Bld) [Mass/Vol] 14.7 g/dL Normal 13.0-17.0 [facility] Comment on above: Order Comment: Speci men Type: BLOOD SPECIMEN Ordering Facility: [facility] Address: [address] [place] [address] Performed By: #### 3 016-3, 89146-1, HSTNT, 19363-6, 95654-8, 92901-0 #### [facility] CLIA [id number] [address] [place] MCH (RBC) [Entitic mass] 31.3 pg Normal 26.0-34.0 [facility] Comment on above: Order Comment: Speci men Type: BLOOD SPECIMEN Ordering Facility: [facility] Address: [address] [place] [address] Performed By: #### 3 016-3, 39507-0, HSTNT, 84376-9, 78644-9, 96723-1 #### [facility] CLIA [id number] [address] MCHC (RBC) [Mass/Vol] 33.9 g/dL Normal 30.5-36.0 [facility] Comment on above: Order Comment: Speci men Type: BLOOD SPECIMEN Ordering Facility: [facility] Address: [address] [place] [address] Performed By: #### 3 016-3, 83222-0, HSTNT, 75637-3, 53037-7, 86338-8 #### [facility] CLIA [id number] [address] STATES [facility] MCV (RBC) [Entitic vol] 92.3 fL Normal 80.0-100.0 [facility] Comment on above: Order Comment: Speci men Type: BLOOD SPECIMEN Ordering Facility: [facility] Address: [address] [place] [address] Performed By: #### 3 016-3, 74572-6, HSTNT, 96986-5, 07057-6, 70690-1 #### [facility] CLIA [id number] [address] STATES [facility] Nucleated RBC (Bld) [#/Vol] 10*3/uL Normal <0.01 [facility] Comment on above: Order Comment: Speci men Type: BLOOD SPECIMEN Ordering Facility: [facility] Address: [address] [place] [address] Performed By: #### 3 016-3, 97077-0, HSTNT, 37353-1, 66752-2, 48577-6 #### [facility] CLIA [id number] [address] Platelet mean volume (Bld) [Entitic vol] 10.6 fL Normal 9.0-12.7 [facility] Comment on above: Order Comment: Speci men Type: BLOOD SPECIMEN Ordering Facility: [facility] Address: [address] [place] [address] Performed By: #### 3 016-3, 55420-0, HSTNT, 03071-5, 49947-9, 04237-1 #### [facility] CLIA [id number] [address] OF [facility] Platelets (Bld) [#/Vol] 222 10*3/uL Normal 150-400 [facility] Comment on above: Order Comment: Speci men Type: BLOOD SPECIMEN Ordering Facility: [facility] Address: [address] [place] [address] Performed By: #### 3 016-3, 69267-3, HSTNT, 82025-0, 43232-2, 15168-4 #### [facility] CLIA [id number] [address] RBC (Bld) [#/Vol] 4.70 10*6/uL Normal 4.20-6.00 [facility] Comment on above: Order Comment: Speci men Type: BLOOD SPECIMEN Ordering Facility: [facility] Address: [address] [place] [address] Performed By: #### 3 016-3, 43215-1, HSTNT, 09310-0, 94654-9, 41029-1 #### [facility] CLIA [id number] [address] [place] WBC (Bld) [#/Vol] 8.49 10*3/uL Normal 3.70-11.00 [facility] Comment on above: Order Comment: Speci men Type: BLOOD SPECIMEN Ordering Facility: [facility] Address: [address] [place] [address] Performed By: #### 3 016-3, 92368-7, HSTNT, 16876-0, 61472-9, 28206-7 #### [facility] CLIA [id number] [address] OF [facility] CONSULTon 11-11-2025 CONSULT HNO ID: [id number] Author: HERNANDEZ RENE MD Service: Critical Care Author Type: Physician Type: Consults Filed: 03/02/2025 17:53 Note Text: CRITICAL CARE CONSULT NOTE SERVICE DATE: March 02, 2025 Admission Date: 02/24/2025 Consulted by: Dr. Sagastume Reason for Consult: s/p CABG AGE: [age] year old LOS: 5 days Subjective 85 year old male who presents as transfer from [facility]. He was mowing the grass last week and was experiencing exertional shortness of breath with some right sided chest discomfort. He was admitted to [facility] and diagnosed with NSTEMI. Cardiac catheterization revealed severe 3-vessel CAD. Transferred to [facility] for consideration of CABG. 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 Normal [facility] ECG COMPLETEon 03-02-2025 ECG COMPLETE Ventricular Rate : 8 2 BPM QRS Duration : 94 ms Q-T Interval : 464 ms QTC Calculation(Bazett) : 542 ms Calculated R Flaxton : 33 degrees Calculated T Flaxton : 54 degrees SINUS RHYTHM WITH BRIEF RUNS OF AFIB NONSPECIFIC ST AND T WAVE ABNORMALITY PROLONGED QT ABNORMAL ECG WHEN COMPARED WITH ECG OF 01-Mar-2025 12:55, ATRIAL FIBRILLATION HAS REPLACED SINUS RHYTHM QT HAS LENGTHENED Confirmed by MD HOPPER VINAY ([id number]) on 03/03/2025 12:27:40 PM NAME : ELSA PALACIO PID : [id number] : 1940 Gender : Male Race : ORD : [id number] Procedure Date : Mar 02 2025 14:10:01 Edit Date : Mar 03 2025 12:27:44 Diagnosis: SINUS RHYTHM WITH BRIEF RUNS OF AFIB NONSPECIFIC ST AND T WAVE ABNORMALITY PROLONGED QT ABNORMAL ECG WHEN COMPARED WITH ECG OF 01-Mar-2025 12:55, ATRIAL FIBRILLATION HAS REPLACED SINUS RHYTHM QT HAS LENGTHENED Confirmed by MD HOPPER VINAY ([id number]) on 03/03/2025 12:27:40 PM Test Reason : Post-OP Location : [address] : [place] [address] Overread By : MD HOPPER VINAY Edited By : MD HOPPER VINAY Referred By : SHAWN CHAU Acquired by : JADEN US [facility] Fibrinogen PPP-mCncon 2024 Fibrinogen Coag (PPP) [Mass/Vol] 159 mg/dL Low 200-400 [facility] Comment on above: Order Comment: Speci colin Type: BLOOD SPECIMEN Ordering Facility: [facility] Address: [address] [place] [address] Performed By: #### 3 016-3, 25928-3, HSTNT, 91130-6, 66595-4, 87312-9 #### [facility] CLIA [id number] [address] Magnesium SerPl-ncon 03-02 Magnesium [Mass/Vol] 2.4 mg/dL High 1.7-2.3 [facility] Comment on above: Order Comment: Speci men Type: BLOOD SPECIMEN Ordering Facility: [facility] Address: [address] [place] [address] Performed By: #### 3 016-3, 43455-4, HSTNT, 44652-7, 27210-4, 25241-3 #### [facility] CLIA [id number] [address] STATES OF [facility] Magnesium [Mass/Vol] 2.0 mg/dL Normal 1.7-2.3 [facility] Comment on above: Order Comment: Speci men Type: BLOOD SPECIMEN Ordering Facility: [facility] Address: [address] [place] [address] Performed By: #### 3 016-3, 93791-6, HSTNT, 39438-9, 58277-1, 48939-3 #### [facility] CLIA [id number] [address] [place] OPERATIVE NOon 03-02-2025 OPERATIVE NO HNO ID: [id number] Author: JOHN SAGASTUME MD Service: Cardiac Surgery Author Type: Physician Type: Operative Report Filed: 03/02/2025 15:01 Note Text: [facility] CARDIO-THORACICSURGER Y OPERATIVE/PROCEDURE REPORT LOG ID: [id number] SURGERY/PROCEDURE DATE: 03/02/2025 INCISION/PROCEDURE START TIME: 8:23 AM INCISION CLOSE/PROCEDURE END TIME: 1:32 PM SURGEON(S)/PROCEDURAL IST(S) AND DYE RANGE TENDER(S): Surgeons and Role: * John Sagastume MD - Primary * Evgeny White MD - Resident - Assisting Physician Punch Press Setter: Shanique Degroot PA-C; Rita Henley PA-C ANESTHESIA: [...] to side diagonal 1 Left SAM: Skeletonized [place] Technique: Direct vision (open) Vein(s) Harvested: Left [...] cell saver. Specimens: None Complex Surgery: No Surgeon/Punch Press Setter Participation: The primary Surgeon/Proceduralist performed the procedure with assistance. Solar Power Installer: opened, closed and harvested grafts Second Assist: closed, harvested grafts and opened SPECIMENS: COMPLETED BY: Evgeny White MD PATIENT NAME: Elsa Palacio DATE: March 02, 2025 TIME: 1:35 PM AGE: [age] year old .surgatt Normal [facility] POTASSIUMon 03-02-2025 Potassium [Moles/Vol] 4.9 mmol/L Normal 3.7-5.1 [facility] Comment on above: Order Comment: Sharon shaw Type: BLOOD SPECIMEN Ordering Facility: [facility] Address: [address] [place] [address] Performed By: #### 3 016-3, 13547-1, HSTNT, 23831-7, 69026-9, 19356-5 #### [facility] CLIA [id number] [address] OF [facility] PT panel Coag (PPP)on 2024 INR Coag (PPP) [Relative time] 1.3 {INR} Normal 0.9-1.3 [facility] Comment on above: Order Comment: Sharon shaw Type: BLOOD SPECIMEN Ordering Facility: [facility] Address: [address] [place] [address] Result Comment: Sigrid min K Antagonist (VKA) Therapeutic Range: INR 2 to 3 (Target INR of 2.5) Note: For patients treated with VKA drugs, such as warfarin, the [place] [employer] 2012 Guideline recommends [...] Chest 2012, 141:7S-47S Jose RA, et al. [facility] 2017, 70: 252-289 Performed By: #### 3 016-3, 39521-5, HSTNT, 28818-1, 56819-0, 17947-7 #### [facility] CLIA [id number] [address] [place] PT Coag (PPP) [Time] 13.1 s High 9.7-13.0 [facility] Comment on above: Order Comment: Speci men Type: BLOOD SPECIMEN Ordering Facility: [facility] Address: [address] [place] [address] Performed By: #### 3 016-3, 73751-3, HSTNT, 03175-5, 17475-7, 80583-9 #### [facility] CLIA [id number] [address] OF [facility] THERAPY NTon 03-02-2025 THERAPY NT HNO ID: [id number] Author: HERMINIA CORDERO RRT Service: Respiratory Therapy Author Type: Registered Resp Therapist Type: Therapy (PT/OT/Speech/Resp) Filed: 03/02/2025 16:50 Note Text: Summary: Extubation parameters RESPIRATORY THERAPY PROGRESS NOTE SERVICE DATE: 03/02/2025 03/02/25 6320 Extubation Parameters $Extubation Parameters $Extubation Parameters Performed [...] Lift Yes Adequate Cough/Gag Reflex Y Normal [facility] XR CHEST 1V FRONTALon 2024 XR [...] with tip directed laterally and inferiorly. 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 Lungs and pleura: No pneumothorax. Minimal atelectasis at the lung bases. Lungs are otherwise grossly clear. Cardiomediastinal silhouette: Normal cardiomediastinal silhouette. Other: No significant additional findings. IMPRESSION: 1. Lines and tubes as noted. 2. Minimal atelectasis at the lung bases. Compliance Review Specialist: GAEL Transcribe Date/Time: Mar 02 2025 3:12P Dictated by : NEIL CARTER MD This examination was interpreted and the report reviewed and electronically signed by: NEIL CARTER MD on Mar 02 2025 3:13PM EST [id number] Normal [facility] aPTT PPPon 03-02-2025 aPTT Coag (PPP) [Time] 27.3 s Normal 23.0-32.4 [facility] Comment on above: Order Comment: Speci men Type: BLOOD SPECIMEN Ordering Facility: [facility] Address: [address] [place] [address] Performed By: #### 3 016-3, 48378-6, T, 99148-6, 02204-7, 40512-7 #### [facility] CLIA [id number] [address] [place] [address] [place] Basic metabolic 2000 panelon 03-01-2025 Anion gap [Moles/Vol] 12 mmol/L Normal 8-15 [facility] Comment on above: Order Comment: Speci men Type: BLOOD SPECIMEN Ordering Facility: [facility] Address: [address] [place] [address] Performed By: #### 1 9123-9, 23610-6 #### [facility] CLIA [id number] [address] [place] [address] [place] Calcium [Mass/Vol] 9.1 mg/dL Normal 8.5-10.2 [facility] Comment on above: Order Comment: Speci men Type: BLOOD SPECIMEN Ordering Facility: [facility] Address: [address] [place] [address] Performed By: #### 1 91239, 04035-6 #### [facility] CLIA [id number] [address] [place] [address] [place] Chloride [Moles/Vol] 101 mmol/L Normal 98-107 [facility] Comment on above: Order Comment: Speci men Type: BLOOD SPECIMEN Ordering Facility: [facility] Address: [address] [place] [address] Performed By: #### 1 91239, 69522-5 #### [facility] CLIA [id number] [address] [place] [address] [place] CO2 [Moles/Vol] 21 mmol/L Low 22-30 [facility] Comment on above: Order Comment: Speci men Type: BLOOD SPECIMEN Ordering Facility: [facility] Address: [address] [place] [address] Performed By: #### 1 9123-9, 84563-6 #### [facility] CLIA [id number] [address] [place] [address] [place] Creatinine [Mass/Vol] 1.07 mg/dL Normal 0.73-1.22 [facility] Comment on above: Order Comment: Sharon shaw Type: BLOOD SPECIMEN Ordering Facility: [facility] Address: [address] [place] [address] Performed By: #### 1 9123-9, 63416-7 #### [facility] CLIA [id number] 1 [place] [address] [place] eGFRcr SerPlBld CKD-EPI 2020 68 mL/min/1.73m??? Normal >=60 [facility] Comment on above: Order Comment: Sharon shaw Type: BLOOD SPECIMEN Ordering Facility: [facility] Address: [address] [place] [address] Result Comment: Monie mated Glomerular Filtration Rate [...] actual GFR. Performed By: #### 1 9123-9, 68909-0 #### [facility] CLIA [id number] [address] [place] [address] [place] Glucose [Mass/Vol] 99 mg/dL Normal 74-99 [facility] Comment on above: Order Comment: Sharon colin Type: BLOOD SPECIMEN Ordering Facility: [facility] Address: [address] [place] [address] Result Comment: The [place] Diabetes Association (ADA) provides guidance for cutoff [...] Standards of Medical Care in Diabetes 2016, [place] [employer]. Diabetes Care. 2016.39(Suppl 1). Performed By: #### 1 9123-9, 25437-5 #### [facility] CLIA [id number] [address] [place] Potassium [Moles/Vol] 4.2 mmol/L Normal 3.7-5.1 [facility] Comment on above: Order Comment: Speci men Type: BLOOD SPECIMEN Ordering Facility: [facility] Address: [address] [place] [address] Performed By: #### 1 9123-9, 92291-3 #### [facility] CLIA [id number] [address] [place] Sodium [Moles/Vol] 134 mmol/L Low 136-144 [facility] Comment on above: Order Comment: Speci men Type: BLOOD SPECIMEN Ordering Facility: [facility] Address: [address] [place] [address] Performed By: #### 1 91239, 58388-7 #### [facility] CLIA [id number] [address] STATES OF [facility] Urea nitrogen [Mass/Vol] 17 mg/dL Normal 9-24 [facility] Comment on above: Order Comment: Speci men Type: BLOOD SPECIMEN Ordering Facility: [facility] Address: [address] [place] [address] Performed By: #### 1 91239, 99937-5 #### [facility] CLIA [id number] [address] [place] CBC panel Auto (Bld)on 03-01 Erythrocyte distribution width (RBC) [Ratio] 12.3 % Normal 11.5-15.0 [facility] Comment on above: Order Comment: Speci men Type: BLOOD SPECIMEN Ordering Facility: [facility] Address: [address] [place] [address] Performed By: #### 5 8410-2 #### [facility] CLIA [id number] [address] [place] Hematocrit (Bld) [Volume fraction] 41.8 % Normal 39.0-51.0 [facility] Comment on above: Order Comment: Speci men Type: BLOOD SPECIMEN Ordering Facility: [facility] Address: [address] [place] [address] Performed By: #### 5 8410-2 #### [facility] CLIA [id number] [address] OF [facility] Hemoglobin (Bld) [Mass/Vol] 14.3 g/dL Normal 13.0-17.0 [facility] Comment on above: Order Comment: Speci men Type: BLOOD SPECIMEN Ordering Facility: [facility] Address: [address] [place] [address] Performed By: #### 5 8410-2 #### [facility] CLIA [id number] [address] OF [facility] MCH (RBC) [Entitic mass] 31.1 pg Normal 26.0-34.0 [facility] Comment on above: Order Comment: Speci men Type: BLOOD SPECIMEN Ordering Facility: [facility] Address: [address] [place] [address] Performed By: #### 5 8410-2 #### [facility] CLIA [id number] [address] OF [facility] MCHC (RBC) [Mass/Vol] 34.2 g/dL Normal 30.5-36.0 [facility] Comment on above: Order Comment: Speci men Type: BLOOD SPECIMEN Ordering Facility: [facility] Address: [address] [place] [address] Performed By: #### 5 8410-2 #### [facility] CLIA [id number] [address] [place] MCV (RBC) [Entitic vol] 90.9 fL Normal 80.0-100.0 [facility] Comment on above: Order Comment: Speci men Type: BLOOD SPECIMEN Ordering Facility: [facility] Address: [address] [place] [address] Performed By: #### 5 8410-2 #### [facility] CLIA [id number] [address] [place] Nucleated RBC (Bld) [#/Vol] 10*3/uL Normal <0.01 [facility] Comment on above: Order Comment: Speci men Type: BLOOD SPECIMEN Ordering Facility: [facility] Address: [address] [place] [address] Performed By: #### 5 8410-2 #### [facility] CLIA [id number] [address] [place] Platelet mean volume (Bld) [Entitic vol] 10.9 fL Normal 9.0-12.7 [facility] Comment on above: Order Comment: Speci men Type: BLOOD SPECIMEN Ordering Facility: [facility] Address: [address] [place] [address] Performed By: #### 5 8410-2 #### [facility] CLIA [id number] [address] [place] Platelets (Bld) [#/Vol] 201 10*3/uL Normal 150-400 [facility] Comment on above: Order Comment: Speci men Type: BLOOD SPECIMEN Ordering Facility: [facility] Address: [address] [place] [address] Performed By: #### 5 8410-2 #### [facility] CLIA [id number] [address] [place] RBC (Bld) [#/Vol] 4.60 10*6/uL Normal 4.20-6.00 [facility] Comment on above: Order Comment: Speci men Type: BLOOD SPECIMEN Ordering Facility: [facility] Address: [address] [place] [address] Performed By: #### 5 8410-2 #### [facility] CLIA [id number] [address] [place] WBC (Bld) [#/Vol] 7.95 10*3/uL Normal 3.70-11.00 [facility] Comment on above: Order Comment: Speci men Type: BLOOD SPECIMEN Ordering Facility: [facility] Address: [address] [place] [address] [place] [address] Performed By: #### 5 8410-2 #### [facility] CLIA [id number] [address] [place] EKGon 03-01-2025 Electrocardiogram Ventricular Rate : 6 5 BPM Atrial Rate : 60 BPM P-R Interval : 256 ms QRS Duration : 92 ms Q-T Interval : 442 ms QTC Calculation(Bazett) : 459 ms Calculated P Flaxton : 38 degrees Calculated R Flaxton : 2 degrees Calculated T Flaxton : 45 degrees SINUS RHYTHM WITH MARKED SINUS ARRHYTHMIA WITH 1ST DEGREE A-V BLOCK NONSPECIFIC ST ABNORMALITY ABNORMAL ECG WHEN COMPARED WITH ECG OF 28-Feb-2025 11:14, PREMATURE ATRIAL COMPLEXES ARE NO LONGER PRESENT Confirmed by MD HOPPER VINAY ([id number]) on 03/02/2025 6:13:12 PM NAME : ELSA PALACIO PID : [id number] : 1940 Gender : Male Race : ORD : Procedure Date : Mar 01 2025 12:55:06 Edit Date : Mar 02 2025 18:13:17 Diagnosis: SINUS RHYTHM WITH MARKED SINUS ARRHYTHMIA WITH 1ST DEGREE A-V BLOCK NONSPECIFIC ST ABNORMALITY ABNORMAL ECG WHEN COMPARED WITH ECG OF 28-Feb-2025 11:14, PREMATURE ATRIAL COMPLEXES ARE NO LONGER PRESENT Confirmed by MD HOPPER VINAY ([id number]) on 03/02/2025 6:13:12 PM Test Reason : Location : 200 : [place] [address] Overread By : MD HOPPER VINAY Edited By : MD HOPPER VINAY Referred By : SHAWN CHAU Acquired by : ROBERTO TRUJILLO [facility] HIGH SENSITIVITY TROPONIN To n 03-01-2025 Troponin T.cardiac High sensitivity method [Mass/Vol] 462 ng/L High <12 [facility] Comment on above: Order Comment: Speci men Type: BLOOD SPECIMEN Ordering Facility: [facility] Address: [address] [place] [address] Performed By: #### 3 016-3, 73045-5, HSTNT, 20675-7, 98144-1, 02135-9 #### [facility] CLIA [id number] [address] [place] Magnesium SerPl-mCncon 03-01 Magnesium [Mass/Vol] 1.8 mg/dL Normal 1.7-2.3 [facility] Comment on above: Order Comment: Speci men Type: BLOOD SPECIMEN Ordering Facility: [facility] Address: [address] [place] [address] Performed By: #### 1 9123-9, 02622-2 #### [facility] CLIA [id number] [address] OF [facility] NURSING PROGon 03-01-2025 NURSING PROG HNO ID: [id number] Author: DALILA BILLY, ANIRUDH Service: Nursing Author Type: Registered Nurse Type: Nursing Progress Note Filed: 03/01/2025 15:00 Note Text: Patient complaining of 2/10 sharp chest pain. Blood pressure is 155/78, heart rate is 57. Omari Heaton MD made aware of situation. 12 lead EKG obtained, nitro x1 dose given, and troponin drawn. Chest pain relieved after 1 dose of nitro. Normal [facility] TYPE + SCREENon 03-01-2025 ABO B Normal [facility] Comment on above: Order Comment: Speci men Type: BLOOD SPECIMEN Ordering Facility: [facility] Address: [address] [place] [address] Performed By: #### 3 016-3, 94092-0, HSTNT, 03956-3, 45862-3, 55134-6 #### [facility] CLIA [id number] [address] [place] Rh Nom (Bld) Positive Normal [facility] Comment on above: Order Comment: Speci men Type: BLOOD SPECIMEN Ordering Facility: [facility] Address: [address] [place] [address] Performed By: #### 3 016-3, 11437-5, HSTNT, 15885-8, 79601-7, 69817-6 #### [facility] CLIA [id number] [address] [place] TYPE AND SCREEN EXPIRATION 03/04/2025 23:59 Normal [facility] Comment on above: Order Comment: Speci men Type: BLOOD SPECIMEN Ordering Facility: [facility] Address: [address] [place], [place] [address] Performed By: #### 3 016-3, 94288-8, HSTNT, 62252-2, 13254-2, 79960-5 #### [facility] CLIA [id number] 1 [place] [address] [place] XR CHEST 1V [...] Comparison: 08/06/2011 RESULT: Lines, tubes, and devices: game artist leads. Lungs and pleura: No consolidation. No lung mass. No pleural effusion. Cardiomediastinal silhouette: Widening of the superior mediastinum most likely due to tortuous brachiocephalic vessels. Stable. Other: None. IMPRESSION: No acute radiographic abnormality. Compliance Review Specialist: PSCB Transcribe Date/Time: Mar 01 2025 6:53A Dictated by : NEIL CARTER MD This examination was interpreted and the report reviewed and electronically signed by: NEIL CARTER MD on Mar 01 2025 6:55AM EST [id number] Normal [facility] aPTT PPPon 03-01-2025 aPTT Coag (PPP) [Time] 61.7 s High 23.0-32.4 [facility] Comment on above: Order Comment: Sharon shaw Type: BLOOD SPECIMEN Ordering Facility: [facility] Address: [address] [place], [place] [address] Performed By: #### 3 016-3, 17509-5, HSTNT, 72376-2, 14504-4, 60171-6 #### [facility] CLIA [id number] 1 [place] [address] [place] Basic metabolic 2000 panelon 02-28-2025 Anion gap [Moles/Vol] 11 mmol/L Normal 8-15 [facility] Comment on above: Order Comment: Speci men Type: BLOOD SPECIMEN Ordering Facility: [facility] Address: [address] [place] [address] Performed By: #### 3 016-3, 70893-4, HSTNT, 99672-2, 09358-7, 56960-9 #### [facility] CLIA [id number] 1 [place] [address] [place] Calcium [Mass/Vol] 9.0 mg/dL Normal 8.5-10.2 [facility] Comment on above: Order Comment: Speci men Type: BLOOD SPECIMEN Ordering Facility: [facility] Address: [address] [place] [address] Performed By: #### 3 016-3, 83393-0, HSTNT, 79453-0, 22045-3, 48606-0 #### [facility] CLIA [id number] 1 [place] [address] [place] Chloride [Moles/Vol] 101 mmol/L Normal 98-107 [facility] Comment on above: Order Comment: Speci men Type: BLOOD SPECIMEN Ordering Facility: [facility] Address: [address] [place] [address] Performed By: #### 3 016-3, 68547-4, HSTNT, 44455-9, 27786-5, 89837-1 #### [facility] CLIA [id number] 1 [place] [address] [place] CO2 [Moles/Vol] 22 mmol/L Normal 22-30 [facility] Comment on above: Order Comment: Speci men Type: BLOOD SPECIMEN Ordering Facility: [facility] Address: [address] [place] [address] Performed By: #### 3 016-3, 18589-0, HSTNT, 98155-4, 21791-2, 08124-6 #### [facility] CLIA [id number] 1 [place] [address] [place] Creatinine [Mass/Vol] 1.05 mg/dL Normal 0.73-1.22 [facility] Comment on above: Order Comment: Sharon shaw Type: BLOOD SPECIMEN Ordering Facility: [facility] Address: [address] [place] [address] Performed By: #### 3 016-3, 70763-4, HSTNT, 72397-3, 00222-4, 67462-0 #### [facility] CLIA [id number] [address] [place] eGFRcr SerPlBld CKD-EPI 2020 70 mL/min/1.73m??? Normal >=60 [facility] Comment on above: Order Comment: [facility] Type: BLOOD SPECIMEN Ordering Facility: [facility] Address: [address] [place] [address] Result Comment: Monie mated Glomerular Filtration Rate [...] actual GFR. Performed By: #### 3 016-3, 47290-1, HSTNT, 66065-3, 56830-4, 14353-1 #### [facility] CLIA [id number] 1 [place] [address] [place] Glucose [Mass/Vol] 110 mg/dL High 74-99 [facility] Comment on above: Order Comment: Sharon shaw Type: BLOOD SPECIMEN Ordering Facility: [facility] Address: [address] [place] [address] Result Comment: The [place] Diabetes [employer] (ADA) provides guidance for cutoff [...] Standards of Medical Care in Diabetes 2016, [place] [employer]. Diabetes Care. 2016.39(Suppl 1). Performed By: #### 3 016-3, 29666-1, HSTNT, 98813-1, 38228-3, 24350-0 #### [facility] CLIA [id number] [address] [place] Potassium [Moles/Vol] 4.2 mmol/L Normal 3.7-5.1 [facility] Comment on above: Order Comment: Speci men Type: BLOOD SPECIMEN Ordering Facility: [facility] Address: [address] [place] [address] Performed By: #### 3 016-3, 51680-1, HSTNT, 26761-1, 97328-8, 45556-4 #### [facility] CLIA [id number] [address] STATES OF [facility] Sodium [Moles/Vol] 134 mmol/L Low 136-144 [facility] Comment on above: Order Comment: Speci men Type: BLOOD SPECIMEN Ordering Facility: [facility] Address: [address] [place] [address] Performed By: #### 3 016-3, 34977-1, HSTNT, 15181-9, 70636-8, 16726-4 #### [facility] CLIA [id number] [address] [place] Urea nitrogen [Mass/Vol] 21 mg/dL Normal 9-24 [facility] Comment on above: Order Comment: Speci men Type: BLOOD SPECIMEN Ordering Facility: [facility] Address: [address] [place] [address] Performed By: #### 3 016-3, 92238-7, HSTNT, 20855-5, 13410-5, 99675-9 #### [facility] CLIA [id number] [address] [place] CBC panel Auto (Bld)on 02-28 Erythrocyte distribution width (RBC) [Ratio] 12.2 % Normal 11.5-15.0 [facility] Comment on above: Order Comment: Speci men Type: BLOOD SPECIMEN Ordering Facility: [facility] Address: [address] [place] [address] Performed By: #### 3 016-3, 19449-0, HSTNT, 96077-0, 89991-5, 91242-5 #### [facility] CLIA [id number] [address] OF [facility] Hematocrit (Bld) [Volume fraction] 41.4 % Normal 39.0-51.0 [facility] Comment on above: Order Comment: Speci men Type: BLOOD SPECIMEN Ordering Facility: [facility] Address: [address] [place] [address] Performed By: #### 3 016-3, 76340-5, HSTNT, 12319-4, 95177-6, 69366-8 #### [facility] CLIA [id number] [address] OF [facility] Hemoglobin (Bld) [Mass/Vol] 14.2 g/dL Normal 13.0-17.0 [facility] Comment on above: Order Comment: Speci men Type: BLOOD SPECIMEN Ordering Facility: [facility] Address: [address] [place] [address] Performed By: #### 3 016-3, 99825-1, HSTNT, 99371-3, 94435-5, 20781-4 #### [facility] CLIA [id number] [address] [place] [address] OF [facility] MCH (RBC) [Entitic mass] 31.1 pg Normal 26.0-34.0 [facility] Comment on above: Order Comment: Speci men Type: BLOOD SPECIMEN Ordering Facility: [facility] Address: [address] [place] [address] Performed By: #### 3 016-3, 07039-3, HSTNT, 26355-9, 75947-5, 97080-3 #### [facility] CLIA [id number] [address] MCHC (RBC) [Mass/Vol] 34.3 g/dL Normal 30.5-36.0 [facility] Comment on above: Order Comment: Speci men Type: BLOOD SPECIMEN Ordering Facility: [facility] Address: [address] [place] [address] Performed By: #### 3 016-3, 79346-2, HSTNT, 51187-2, 48512-9, 38759-2 #### [facility] CLIA [id number] [address] MCV (RBC) [Entitic vol] 90.6 fL Normal 80.0-100.0 [facility] Comment on above: Order Comment: Speci men Type: BLOOD SPECIMEN Ordering Facility: [facility] Address: [address] [place] [address] Performed By: #### 3 016-3, 94718-2, HSTNT, 40709-7, 38645-4, 07624-9 #### [facility] CLIA [id number] [address] Nucleated RBC (Bld) [#/Vol] 10*3/uL Normal <0.01 [facility] Comment on above: Order Comment: Speci men Type: BLOOD SPECIMEN Ordering Facility: [facility] Address: [address] [place] [address] Performed By: #### 3 016-3, 05355-4, HSTNT, 13251-0, 71384-2, 98604-6 #### [facility] CLIA [id number] [address] [place] Platelet mean volume (Bld) [Entitic vol] 10.2 fL Normal 9.0-12.7 [facility] Comment on above: Order Comment: Speci men Type: BLOOD SPECIMEN Ordering Facility: [facility] Address: [address] [place] [address] Performed By: #### 3 016-3, 11556-4, HSTNT, 23003-9, 71353-9, 17226-7 #### [facility] CLIA [id number] [address] [place] Platelets (Bld) [#/Vol] 197 10*3/uL Normal 150-400 [facility] Comment on above: Order Comment: Speci men Type: BLOOD SPECIMEN Ordering Facility: [facility] Address: [address] [place] [address] Performed By: #### 3 016-3, 54846-7, HSTNT, 50445-9, 05380-9, 71704-3 #### [facility] CLIA [id number] [address] [place] RBC (Bld) [#/Vol] 4.57 10*6/uL Normal 4.20-6.00 [facility] Comment on above: Order Comment: Speci men Type: BLOOD SPECIMEN Ordering Facility: [facility] Address: [address] [place] [address] Performed By: #### 3 016-3, 98441-7, HSTNT, 31340-5, 97622-2, 47971-8 #### [facility] CLIA [id number] [address] [place] WBC (Bld) [#/Vol] 8.49 10*3/uL Normal 3.70-11.00 [facility] Comment on above: Order Comment: Speci men Type: BLOOD SPECIMEN Ordering Facility: [facility] Address: [address] [place] [address] Performed By: #### 3 016-3, 95122-9, HSTNT, 88221-4, 20285-1, 31502-6 #### [facility] CLIA [id number] [address] CONSULTon 02-28-2025 CONSULT HNO ID: [id number] Author: HARRISON ARTIS MD Service: Electrophysiology Author Type: Physician Type: Consults Filed: 02/28/2025 12:18 Note Text: CONSULT: CARDIOLOGY SERVICE [facility] Electrophysiology (EP) SERVICE DATE: 02/28/2025 SERVICE TIME: 12:18 PM CONSULTING PHYSICIAN: Harrison Artis PCP: Екатерина Taveras MD ATTENDING: Omari Heaton MD REASON FOR CONSULT: Arrhythmias Subjective CHIEF COMPLAINT: CABG (coronary artery bypass graft) planned [Z78.9] HISTORY OF PRESENT ILLNESS: Mr. Palacio is a 85 year old male who presents as transfer from [facility] for consideration of CABG, evidently scheduled for tomorrow Saturday03/01/2025. No heart history, he was mowing the grass last week and was experiencing exertional shortness of breath, perhaps some right sided chest discomfort. He was admitted to [facility] and diagnosed with NSTEMI. Cardiac catheterization revealed severe 3-vessel CAD. Transferred to [facility] for consideration of CABG. He was noted [...] RAE, Dr Pierce PAF (paroxysmal atrial fibrillation) ([facility]) 02/25/2025 Primary hypertension 10/13/2024 PAST SURGICAL HISTORY [...] LEFT HEART CATH,PERCUTANEOUS 02/24/2025 severe 3-vessel CAD; [facility] RAD RESECT TUMOR SOFT TISS NECK/ANT THORAX [...] (BACTROBAN) 0. (more content not included)... Normal [facility] ECG COMPLETEon 02-28-2025 ECG COMPLETE Ventricular Rate : 7 6 BPM Atrial Rate : 102 BPM QRS Duration : 92 ms Q-T Interval : 420 ms QTC Calculation(Bazett) : 472 ms Calculated P Flaxton : 26 degrees Calculated R Flaxton : 1 degrees Calculated T Flaxton : 62 degrees SINUS TACHYCARDIA WITH BLOCKED PREMATURE ATRIAL COMPLEXES OTHERWISE NORMAL ECG WHEN COMPARED WITH ECG OF 25-Feb-2025 14:55, SINUS RHYTHM HAS REPLACED ATRIAL FIBRILLATION QUESTIONABLE CHANGE IN QRS AXIS T WAVE INVERSION NO LONGER EVIDENT IN INFERIOR LEADS Confirmed by MD HOPPER VINAY ([id number]) on 03/01/2025 2:33:43 PM NAME : ELSA PALACIO PID : [id number] : 1940 Gender : Male Race : ORD : [id number] Procedure Date : Feb 28 2025 11:14:35 Edit Date : Mar 01 2025 14:33:46 Diagnosis: SINUS TACHYCARDIA WITH BLOCKED PREMATURE ATRIAL COMPLEXES OTHERWISE NORMAL ECG WHEN COMPARED WITH ECG OF 25-Feb-2025 14:55, SINUS RHYTHM HAS REPLACED ATRIAL FIBRILLATION QUESTIONABLE CHANGE IN QRS AXIS T WAVE INVERSION NO LONGER EVIDENT IN INFERIOR LEADS Confirmed by MD HOPPER VINAY ([id number]) on 03/01/2025 2:33:43 PM Test Reason : Arrhythmia Location : 200 : [id number] Overread By : MD HOPPER VINAY Edited By : MD HOPPER VINAY Referred By : SHAWN CHAU Acquired by : ADIN ISBELL Normal [facility] Magnesium SerPl-mCncon 11-09 -2025 Magnesium [Mass/Vol] 1.8 mg/dL Normal 1.7-2.3 [facility] Comment on above: Order Comment: Speci men Type: BLOOD SPECIMEN Ordering Facility: [facility] Address: [address] [place] [address] Performed By: #### 3 016-3, 09702-2, HSTNT, 52615-8, 43089-6, 85714-0 #### [facility] CLIA [id number] [address] [place] aPTT PPPon 02-28-2025 aPTT Coag (PPP) [Time] 63.2 s High 23.0-32.4 [facility] Comment on above: Order Comment: Speci men Type: BLOOD SPECIMEN Ordering Facility: [facility] Address: [address] [place] [address] Performed By: #### 3 016-3, 18440-1, HSTNT, 47132-2, 03326-5, 20984-9 #### [facility] CLIA [id number] [address] [place] aPTT PPPon 02-27-2025 aPTT Coag (PPP) [Time] 60.9 s High 23.0-32.4 [facility] Comment on above: Order Comment: Speci men Type: BLOOD SPECIMEN Ordering Facility: [facility] Address: [address] [place] [address] Performed By: #### 1 4979-9 #### [facility] CLIA [id number] 1 [place] [address] [place] Basic metabolic 2000 panelon 02-26-2025 Anion gap [Moles/Vol] 10 mmol/L Normal 8-15 [facility] Comment on above: Order Comment: Speci men Type: BLOOD SPECIMEN Ordering Facility: [facility] Address: [address] [place] [address] Performed By: #### 3 016-3, 41350-4, HSTNT, 29173-9, 31703-3, 69192-9 #### [facility] CLIA [id number] 1 [place] [address] [place] Calcium [Mass/Vol] 8.9 mg/dL Normal 8.5-10.2 [facility] Comment on above: Order Comment: Speci men Type: BLOOD SPECIMEN Ordering Facility: [facility] Address: [address] [place] [address] Performed By: #### 3 016-3, 44605-6, HSTNT, 88959-3, 07363-6, 15301-8 #### [facility] CLIA [id number] 1 [place] [address] [place] Chloride [Moles/Vol] 103 mmol/L Normal 98-107 [facility] Comment on above: Order Comment: Speci men Type: BLOOD SPECIMEN Ordering Facility: [facility] Address: [address] [place] [address] Performed By: #### 3 016-3, 49418-4, HSTNT, 94862-9, 34769-0, 05661-1 #### [facility] CLIA [id number] [address] [place] [address] [place] CO2 [Moles/Vol] 21 mmol/L Low 22-30 [facility] Comment on above: Order Comment: Speci men Type: BLOOD SPECIMEN Ordering Facility: [facility] Address: [address] [place] [address] Performed By: #### 3 016-3, 69841-7, HSTNT, 71257-3, 31761-6, 80843-6 #### [facility] CLIA [id number] [address] [place] [address] [place] Creatinine [Mass/Vol] 1.13 mg/dL Normal 0.73-1.22 [facility] Comment on above: Order Comment: Speci men Type: BLOOD SPECIMEN Ordering Facility: [facility] Address: [address] [place] [address] Performed By: #### 3 016-3, 30891-3, HSTNT, 33341-3, 29903-4, 08612-3 #### [facility] CLIA [id number] [address] [place] eGFRcr SerPlBld CKD-EPI 2020 64 mL/min/1.73m??? Normal >=60 [facility] Comment on above: Order Comment: Sharon colin Type: BLOOD SPECIMEN Ordering Facility: [facility] Address: [address] [place] [address] Result Comment: Monie mated Glomerular Filtration Rate [...] actual GFR. Performed By: #### 3 016-3, 39904-6, HSTNT, 79534-2, 60949-7, 98964-1 #### [facility] CLIA [id number] [address] [place] Glucose [Mass/Vol] 118 mg/dL High 74-99 [facility] Comment on above: Order Comment: Sharon shaw Type: BLOOD SPECIMEN Ordering Facility: [facility] Address: [address] [place] [address] Result Comment: The [place] [employer] (ADA) provides guidance for cutoff [...] Standards of Medical Care in Diabetes 2016, [place] [employer]. Diabetes Care. 2016.39(Suppl 1). Performed By: #### 3 016-3, 86782-4, HSTNT, 30996-8, 43031-5, 52116-9 #### [facility] CLIA [id number] [address] [place] [address] [place] Potassium [Moles/Vol] 4.1 mmol/L Normal 3.7-5.1 [facility] Comment on above: Order Comment: Speci men Type: BLOOD SPECIMEN Ordering Facility: [facility] Address: [address] [place] [address] Performed By: #### 3 016-3, 72015-7, HSTNT, 17105-5, 89412-9, 31017-4 #### [facility] CLIA [id number] [address] [place] [address] [place] Sodium [Moles/Vol] 134 mmol/L Low 136-144 [facility] Comment on above: Order Comment: Speci men Type: BLOOD SPECIMEN Ordering Facility: [facility] Address: [address] [place] [address] Performed By: #### 3 016-3, 52618-1, HSTNT, 98829-2, 65148-0, 12649-5 #### [facility] CLIA [id number] [address] [place] [address] [place] Urea nitrogen [Mass/Vol] 19 mg/dL Normal 9-24 [facility] Comment on above: Order Comment: Speci men Type: BLOOD SPECIMEN Ordering Facility: [facility] Address: [address] [place] [address] Performed By: #### 3 016-3, 70340-8, HSTNT, 56212-8, 82019-5, 01790-3 #### [facility] CLIA [id number] [address] [place] [address] [place] CBC panel Auto (Bld)on 02-26 Erythrocyte distribution width (RBC) [Ratio] 12.3 % Normal 11.5-15.0 [facility] Comment on above: Order Comment: Speci men Type: BLOOD SPECIMEN Ordering Facility: [facility] Address: [address] [place] [address] Performed By: #### 3 016-3, 89452-5, HSTNT, 25563-0, 37196-3, 61899-6 #### [facility] CLIA [id number] [address] [place] Hematocrit (Bld) [Volume fraction] 39.7 % Normal 39.0-51.0 [facility] Comment on above: Order Comment: Speci men Type: BLOOD SPECIMEN Ordering Facility: [facility] Address: [address] [place] [address] Performed By: #### 3 016-3, 53024-2, HSTNT, 79025-8, 13221-7, 13009-1 #### [facility] CLIA [id number] [address] [place] Hemoglobin (Bld) [Mass/Vol] 13.3 g/dL Normal 13.0-17.0 [facility] Comment on above: Order Comment: Speci men Type: BLOOD SPECIMEN Ordering Facility: [facility] Address: [address] [place] [address] Performed By: #### 3 016-3, 73220-0, HSTNT, 60616-0, 01900-3, 30526-8 #### [facility] CLIA [id number] [address] STATES OF [facility] MCH (RBC) [Entitic mass] 30.5 pg Normal 26.0-34.0 [facility] Comment on above: Order Comment: Speci men Type: BLOOD SPECIMEN Ordering Facility: [facility] Address: [address] [place] [address] Performed By: #### 3 016-3, 53277-1, HSTNT, 30465-3, 14679-4, 27688-0 #### [facility] CLIA [id number] [address] [place] MCHC (RBC) [Mass/Vol] 33.5 g/dL Normal 30.5-36.0 [facility] Comment on above: Order Comment: Speci men Type: BLOOD SPECIMEN Ordering Facility: [facility] Address: [address] [place] [address] Performed By: #### 3 016-3, 34359-7, HSTNT, 65074-0, 58910-1, 22174-6 #### [facility] CLIA [id number] [address] MCV (RBC) [Entitic vol] 91.1 fL Normal 80.0-100.0 [facility] Comment on above: Order Comment: Speci men Type: BLOOD SPECIMEN Ordering Facility: [facility] Address: [address] [place] [address] Performed By: #### 3 016-3, 85142-3, HSTNT, 04990-8, 23706-4, 27961-8 #### [facility] CLIA [id number] [address] Nucleated RBC (Bld) [#/Vol] 10*3/uL Normal <0.01 [facility] Comment on above: Order Comment: Speci men Type: BLOOD SPECIMEN Ordering Facility: [facility] Address: [address] [place] [address] Performed By: #### 3 016-3, 27489-0, HSTNT, 88123-6, 84016-1, 68700-8 #### [facility] CLIA [id number] [address] [place] Platelet mean volume (Bld) [Entitic vol] 10.0 fL Normal 9.0-12.7 [facility] Comment on above: Order Comment: Speci men Type: BLOOD SPECIMEN Ordering Facility: [facility] Address: [address] [place] [address] Performed By: #### 3 016-3, 92491-4, HSTNT, 32575-5, 88413-7, 28882-3 #### [facility] CLIA [id number] [address] [place] Platelets (Bld) [#/Vol] 196 10*3/uL Normal 150-400 [facility] Comment on above: Order Comment: Speci men Type: BLOOD SPECIMEN Ordering Facility: [facility] Address: [address] [place] [address] Performed By: #### 3 016-3, 43452-6, HSTNT, 12868-5, 47690-4, 46868-8 #### [facility] CLIA [id number] [address] OF [facility] RBC (Bld) [#/Vol] 4.36 10*6/uL Normal 4.20-6.00 [facility] Comment on above: Order Comment: Speci men Type: BLOOD SPECIMEN Ordering Facility: [facility] Address: [address] [place] [address] Performed By: #### 3 016-3, 66421-4, HSTNT, 83753-3, 45739-0, 39123-3 #### [facility] CLIA [id number] [address] WBC (Bld) [#/Vol] 8.96 10*3/uL Normal 3.70-11.00 [facility] Comment on above: Order Comment: Speci men Type: BLOOD SPECIMEN Ordering Facility: [facility] Address: [address] [place] [address] Performed By: #### 3 016-3, 42724-5, HSTNT, 88043-2, 79752-6, 28432-8 #### [facility] CLIA [id number] [address] ECHOon 02-26-2025 Echocardiography Echocardiography Report: Transthoracic Echo [facility] Date of service: 02/26/2025 7:28:40 AM [facility] Ordering physician: RITA HENLEY Exam indication: Chest [...] - Exam was compared with the prior [facility] echocardiographic exam performed on 03/14/2020. No significant change noted when compared to report of prior study. * * * Final * * * CC [employer] : [id number] amicsSISUID Normal [facility] aPTT PPPon 02-26-2025 aPTT Coag (PPP) [Time] 61.6 s High 23.0-32.4 [facility] Comment on above: Order Comment: Speci men Type: BLOOD SPECIMEN Ordering Facility: [facility] Address: [address] [place] [address] [place] [address] Performed By: #### 3 016-3, 62257-1, HSTNT, 00034-0, 07744-5, 30679-7 #### [facility] CLIA [id number] [address] [place] ALLIED HEALTHon 02-25-2025 ALLIED HEALTH HNO ID: [id number] Author: EMMY ZUNIGA RN Service: Cardiac Rehab Author Type: Registered Nurse Type: [facility] Filed: 02/25/2025 15:24 Note Text: CARDIAC [...] 25, 2025 TIME: 3:24 PM PAGER/CONTACT #: [phone] [facility] HNO ID: [id number] Author: ARAMIS WISEMAN RT(R) Service: Radiology Author Type: Type [employer] And Segment Assembler Type: [facility] Filed: 02/25/2025 13:30 Note Text: Radiology [...] PATIENT PRESENTS WITH AN IMPLANTABLE OR ATTACHED WOOL GRADER: No RADIOLOGY DEPARTMENT: CT; Exam(s) Completed: Chest. Anesthesia: No PERIPHERAL IV DATA: Not applicable SIGNED BY: RT Jacqueline(R) February 25, 2025 1:30 PM [facility] Basic metabolic 2000 panelon 02-25-2025 Anion gap [Moles/Vol] 10 mmol/L Normal 8-15 [facility] Comment on above: Order Comment: Speci men Type: BLOOD SPECIMEN Ordering Facility: [facility] Address: [address] [place] [address] Performed By: #### 3 016-3, 83563-0, HSTNT, 03990-6, 45769-0, 92884-2 #### [facility] CLIA [id number] 1 [place] [address] [place] Calcium [Mass/Vol] 8.9 mg/dL Normal 8.5-10.2 [facility] Comment on above: Order Comment: Speci men Type: BLOOD SPECIMEN Ordering Facility: [facility] Address: [address] [place] [address] Performed By: #### 3 016-3, 35299-8, HSTNT, 80075-3, 12668-0, 65800-8 #### [facility] CLIA [id number] 1 [place] [address] [place] Chloride [Moles/Vol] 103 mmol/L Normal 98-107 [facility] Comment on above: Order Comment: Speci men Type: BLOOD SPECIMEN Ordering Facility: [facility] Address: [address] [place] [address] Performed By: #### 3 016-3, 46047-0, HSTNT, 97195-7, 14790-6, 01326-5 #### [facility] CLIA [id number] 1 [place] [address] [place] CO2 [Moles/Vol] 22 mmol/L Normal 22-30 [facility] Comment on above: Order Comment: Speci men Type: BLOOD SPECIMEN Ordering Facility: [facility] Address: [address] [place] [address] Performed By: #### 3 016-3, 77726-3, HSTNT, 16859-7, 46604-9, 44481-9 #### [facility] CLIA [id number] 1 [place] [address] [place] Creatinine [Mass/Vol] 0.96 mg/dL Normal 0.73-1.22 [facility] Comment on above: Order Comment: Speci men Type: BLOOD SPECIMEN Ordering Facility: [facility] Address: [address] [place] [address] Performed By: #### 3 016-3, 02412-1, HSTNT, 57118-3, 23808-8, 88856-1 #### [facility] CLIA [id number] [address] [place] eGFRcr SerPlBld CKD-EPI 2020 77 mL/min/1.73m??? Normal >=60 [facility] Comment on above: Order Comment: Sharon shaw Type: BLOOD SPECIMEN Ordering Facility: [facility] Address: [address] [place] [address] Result Comment: Monie mated Glomerular Filtration Rate [...] actual GFR. Performed By: #### 3 016-3, 91264-2, HSTNT, 77854-4, 36388-4, 84883-4 #### [facility] CLIA [id number] 1 [place] [address] [place] Glucose [Mass/Vol] 124 mg/dL High 74-99 [facility] Comment on above: Order Comment: Sharon shaw Type: BLOOD SPECIMEN Ordering Facility: [facility] Address: [address] [place] [address] Result Comment: The [place] [employer] (ADA) provides guidance for cutoff [...] Standards of Medical Care in Diabetes 2016, [place] [employer]. Diabetes Care. 2016.39(Suppl 1). Performed By: #### 3 016-3, 78002-7, HSTNT, 80238-9, 58181-5, 39770-8 #### [facility] CLIA [id number] [address] [place] Potassium [Moles/Vol] 4.0 mmol/L Normal 3.7-5.1 [facility] Comment on above: Order Comment: Speci men Type: BLOOD SPECIMEN Ordering Facility: [facility] Address: [address] [place] [address] Performed By: #### 3 016-3, 14191-3, HSTNT, 23726-3, 83373-4, 37321-4 #### [facility] CLIA [id number] [address] STATES OF [facility] Sodium [Moles/Vol] 135 mmol/L Low 136-144 [facility] Comment on above: Order Comment: Speci men Type: BLOOD SPECIMEN Ordering Facility: [facility] Address: [address] [place] [address] Performed By: #### 3 016-3, 30518-6, HSTNT, 94205-5, 40889-6, 46753-4 #### [facility] CLIA [id number] [address] STATES OF [facility] Urea nitrogen [Mass/Vol] 16 mg/dL Normal 9-24 [facility] Comment on above: Order Comment: Speci men Type: BLOOD SPECIMEN Ordering Facility: [facility] Address: [address] [place] [address] Performed By: #### 3 016-3, 17412-5, HSTNT, 13409-9, 64946-8, 37144-5 #### [facility] CLIA [id number] 1 [place] [address] [place] CBC W/Diff, Automatedon 11-0 Absolute Neut Normal 2.0-7.7 [facility] Comment on above: Result Comment: DUPL ICATE ORDER, CBCD DONE IN LAST 24HORS, SPOKE WITH KRISTA RN TO VERIFY. Performed By: #### L 100.0100 #### [facility] [address] [place], [address] Result Comment: Canc elled via OM: Order cancelled - Patient discharged HCT Normal 40-54 [facility] Comment on above: Result Comment: DUPL ICATE ORDER, CBCD DONE IN LAST 24HORS, SPOKE WITH LBENNET RN TO VERIFY. Performed By: #### L 100.0100 #### [facility] [address] [place], [address] Result Comment: Canc elled via OM: Order cancelled - Patient discharged HGB Normal 13.0-16.5 [facility] Comment on above: Result Comment: DUPL ICATE ORDER, CBCD DONE IN LAST 24HORS, SPOKE WITH LBENNET RN TO VERIFY. Performed By: #### L 100.0100 #### [facility] [address] [place], [address] Result Comment: Canc elled via OM: Order cancelled - Patient discharged MCH Normal 27.0-32.0 [facility] Comment on above: Result Comment: DUPL ICATE ORDER, CBCD DONE IN LAST 24HORS, SPOKE WITH LBENNET RN TO VERIFY. Performed By: #### L 100.0100 #### [facility] [address] [place], [address] Result Comment: Canc elled via OM: Order cancelled - Patient discharged MCHC Normal 32-36 [facility] Comment on above: Result Comment: DUPL ICATE ORDER, CBCD DONE IN LAST 24HORS, SPOKE WITH LBENNET RN TO VERIFY. Performed By: #### L 100.0100 #### [facility] [address] [place], [address] Result Comment: Canc elled via OM: Order cancelled - Patient discharged MCV Normal 80-94 [facility] Comment on above: Result Comment: DUPL ICATE ORDER, CBCD DONE IN LAST 24HORS, SPOKE WITH LBENNET RN TO VERIFY. Performed By: #### L 100.0100 #### [facility] [address] [place], [address] Result Comment: Canc elled via OM: Order cancelled - Patient discharged NEUT% Normal 47-70 [facility] Comment on above: Result Comment: DUPL ICATE ORDER, CBCD DONE IN LAST 24HORS, SPOKE WITH LBENNET RN TO VERIFY. Performed By: #### L 100.0100 #### [facility] [address] [place], [address] Result Comment: Canc elled via OM: Order cancelled - Patient discharged PLT Normal 150-450 [facility] Comment on above: Result Comment: DUPL ICATE ORDER, CBCD DONE IN LAST 24HORS, SPOKE WITH LBENNET RN TO VERIFY. Performed By: #### L 100.0100 #### [facility] [address] [place], [address] Result Comment: Canc elled via OM: Order cancelled - Patient discharged RBC Normal 4.6-6.2 [facility] Comment on above: Result Comment: DUPL ICATE ORDER, CBCD DONE IN LAST 24HORS, SPOKE WITH LBENNET RN TO VERIFY. Performed By: #### L 100.0100 #### [facility] [address] [place], [address] Result Comment: Canc elled via OM: Order cancelled - Patient discharged RDW CV Normal 11.6-14.6 [facility] Comment on above: Result Comment: DUPL ICATE ORDER, CBCD DONE IN LAST 24HORS, SPOKE WITH LBENNET RN TO VERIFY. Performed By: #### L 100.0100 #### [facility] [address] [place], [address] Result Comment: Canc elled via OM: Order cancelled - Patient discharged RDW SD Normal 35.1-43.9 [facility] Comment on above: Result Comment: DUPL ICATE ORDER, CBCD DONE IN LAST 24HORS, SPOKE WITH LBENNET RN TO VERIFY. Performed By: #### L 100.0100 #### [facility] [address] [place], [place], [address] Result Comment: Canc elled via OM: Order cancelled - Patient discharged WBC Normal 4.4-11.0 [facility] Comment on above: Result Comment: DUPL ICATE ORDER, CBCD DONE IN LAST 24HORS, SPOKE WITH KRISTA RN TO VERIFY. Performed By: #### L 100.0100 #### [facility] [address] [place], [address] Result Comment: Canc elled via OM: Order cancelled - Patient discharged CBC panel Auto (Bld)on 02-25 Erythrocyte distribution width (RBC) [Ratio] 12.4 % Normal 11.5-15.0 [facility] Comment on above: Order Comment: Speci men Type: BLOOD SPECIMEN Ordering Facility: [facility] Address: [address] [place] [address] Performed By: #### 3 016-3, 74677-4, HSTNT, 29782-5, 59496-3, 75093-5 #### [facility] CLIA [id number] 1 [place] [address] [place] Hematocrit (Bld) [Volume fraction] 41.3 % Normal 39.0-51.0 [facility] Comment on above: Order Comment: Speci men Type: BLOOD SPECIMEN Ordering Facility: [facility] Address: [address] [place] [address] Performed By: #### 3 016-3, 35594-0, HSTNT, 21161-9, 56697-1, 93076-9 #### [facility] CLIA [id number] 1 [place] [address] [place] Hemoglobin (Bld) [Mass/Vol] 14.2 g/dL Normal 13.0-17.0 [facility] Comment on above: Order Comment: Speci men Type: BLOOD SPECIMEN Ordering Facility: [facility] Address: [address] [place] [address] Performed By: #### 3 016-3, 43961-1, HSTNT, 75905-6, 01748-0, 05371-0 #### [facility] CLIA [id number] [address] MCH (RBC) [Entitic mass] 31.2 pg Normal 26.0-34.0 [facility] Comment on above: Order Comment: Speci men Type: BLOOD SPECIMEN Ordering Facility: [facility] Address: [address] [place] [address] Performed By: #### 3 016-3, 89621-7, HSTNT, 89860-3, 72937-7, 76483-1 #### [facility] CLIA [id number] [address] MCHC (RBC) [Mass/Vol] 34.4 g/dL Normal 30.5-36.0 [facility] Comment on above: Order Comment: Speci men Type: BLOOD SPECIMEN Ordering Facility: [facility] Address: [address] [place] [address] Performed By: #### 3 016-3, 08160-3, HSTNT, 00084-9, 28742-8, 09045-0 #### [facility] CLIA [id number] [address] MCV (RBC) [Entitic vol] 90.8 fL Normal 80.0-100.0 [facility] Comment on above: Order Comment: Speci men Type: BLOOD SPECIMEN Ordering Facility: [facility] Address: [address] [place] [address] Performed By: #### 3 016-3, 57320-9, HSTNT, 03340-2, 15465-8, 23732-7 #### [facility] CLIA [id number] [address] Nucleated RBC (Bld) [#/Vol] 10*3/uL Normal <0.01 [facility] Comment on above: Order Comment: Speci men Type: BLOOD SPECIMEN Ordering Facility: [facility] Address: [address] [place] [address] Performed By: #### 3 016-3, 06860-2, HSTNT, 82529-4, 21624-5, 02942-8 #### [facility] CLIA [id number] [address] [place] [address] Platelet mean volume (Bld) [Entitic vol] 10.3 fL Normal 9.0-12.7 [facility] Comment on above: Order Comment: Speci men Type: BLOOD SPECIMEN [facility] [facility] Address: [address] [place] [address] Performed By: #### 3 016-3, 63334-2, HSTNT, 62168-8, 39581-0, 01688-4 #### [facility] CLIA [id number] [address] [place] [address] [place] Platelets (Bld) [#/Vol] 222 10*3/uL Normal 150-400 [facility] Comment on above: Order Comment: Speci men Type: BLOOD SPECIMEN Ordering Facility: [facility] Address: [address] [place] [address] Performed By: #### 3 016-3, 85382-8, HSTNT, 01605-0, 34479-5, 89046-3 #### [facility] CLIA [id number] [address] [place] [address] [place] RBC (Bld) [#/Vol] 4.55 10*6/uL Normal 4.20-6.00 [facility] Comment on above: Order Comment: Speci men Type: BLOOD SPECIMEN Ordering Facility: [facility] Address: [address] [place] [address] Performed By: #### 3 016-3, 70453-5, HSTNT, 00073-5, 29569-5, 84986-5 #### [facility] CLIA [id number] 1 [place] [address] [place] WBC (Bld) [#/Vol] 10.33 10*3/uL Normal 3.70-11.00 [facility] Comment on above: Order Comment: Speci men Type: BLOOD SPECIMEN Ordering Facility: [facility] Address: [address], [place] [address] Performed By: #### 3 016-3, 07272-1, HSTNT, 81905-0, 08101-4, 23773-7 #### [facility] CLIA [id number] [address] [place] CONSULTon 02-25-2025 CONSULT HNO ID: [id number] Author: RITA HENLEY PA-C Service: Cardiovascular Surgery Author Type: Physician Punch Press Setter Type: Consults Filed: 02/25/2025 17:36 Note Text: CARDIOTHORACIC SURGERY CONSULT / HANDP SERVICE DATE: 02/25/2025 SERVICE TIME: 11:18 AM Subjective PRIMARY SERVICE: Cardiothoracic Surgery CHIEF COMPLAINT: chest pain/ Shortness of Breath on exertion Consult Reason: CABG eval HPI: This is a 85 year old male with a PMHx of HTN, hypothyroidism, BPH, and cluster headaches who presented to [place] ED with exertional chest pain and shortness of breath. 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 TTE [...] UTI. MUSCULO (more content not included)... Normal [facility] CONSULT HNO ID: [id number] Author: RACHEL PETERS MD Service: Cardiovascular Disease Author Type: Physician Type: Consults Filed: 02/25/2025 11:09 Note Text: Heart, Vascular AND Thoracic [place] Department of Cardiovascular Medicine [facility] CONSULT: CARDIOLOGY SERVICE SERVICE DATE: 02/25/2025 CONSULTING PHYSICIAN: Rachel Peters PCP: Jeremias Damico MD ATTENDING: Omari Heaton MD REASON FOR CONSULT: multivessel CAD Subjective CHIEF COMPLAINT: CABG (coronary artery bypass graft) planned [Z78.9] HISTORY OF PRESENT ILLNESS: Mr. Palacio is a 85 year old male with a history of HTN, hypothyroidism, BPH, a transfer from [place] yesterday. The patient was apparently well until 2 days ago when he noted dyspnea while he was mowing his lawn. He also had chest pain which was 10/10 in severity. Chest pain was retrosternal and was relieved when he rested. On arrival at [place] yesterday, he was noted to have uptrending [...] Asya RAEDr Pierce PAF (paroxysmal atrial fibrillation) ([facility]) 02/25/2025 Primary hypertension 10/13/2024 PAST SURGICAL HISTORY [...] therapeutic multivitamin-mine (more content not included)... Normal [facility] CT CHEST WO IVCONon 02-26-[address] CHEST WO IVCON * * *Final Report* * * DATE OF EXAM: Feb 25 2025 1:37PM [facility] 0541 - CT CHEST WO IVCON [...] be communicated with the ordering provider via [employer] staff message or phone message by [employer] within 2 business days of report finalization. --END OF FINDING-- Compliance Review Specialist: GAEL Transcribe Date/Time: Feb 25 2025 2:53P Dictated by : BELIA ABDUL MD This examination was interpreted and the report reviewed and electronically signed by: BELIA ABDUL MD on Feb 25 2025 3:16PM EST [id number] ACTIONABLE Invalid Interpretation Code [facility] ECG COMPLETEon 02-25-2025 ECG COMPLETE Ventricular Rate : 5 5 BPM QRS Duration : 88 ms Q-T Interval : 460 ms QTC Calculation(Bazett) : 440 ms Calculated R Flaxton : 85 degrees Calculated T Flaxton : 267 degrees SINUS BRADYCARDIA WITH 1ST DEGREE A-V BLOCK WITH PREMATURE ATRIAL COMPLEXES AND WITH OCCASIONAL BLOCKED PREMATURE ATRIAL COMPLEXES ST & T WAVE ABNORMALITY, CONSIDER INFERIOR ISCHEMIA ABNORMAL ECG WHEN COMPARED WITH ECG OF 25-Feb-2025 00:38, QUESTIONABLE CHANGE IN QRS AXIS T WAVE INVERSION NOW EVIDENT IN INFERIOR LEADS Confirmed by MD JOHN, IVA ([id number]) on 02/26/2025 12:40:39 PM NAME : ELSA PALACIO PID : [id number] : 1940 Gender : Male Race : ORD : [id number] Procedure Date : Feb 25 2025 14:55:32 [...] INFERIOR LEADS Confirmed by MD BACH ANUBHAV ([id number]) on 02/26/2025 12:40:39 PM Test Reason : Arrhythmia Location : 200 : [facility] Overread By : MD BACH ANUBHAV Edited By : MD BACH ANUBHAV Referred By : SHAWN CHAU Acquired by : CESAR ROLON Normal [facility] ECG COMPLETE Ventricular Rate : 7 1 BPM QRS Duration : 92 ms Q-T Interval : 430 ms QTC Calculation(Bazett) : 467 ms Calculated R Flaxton : 8 degrees Calculated T Flaxton : 101 degrees NORMAL SINUS RHYTHM WITH 1ST DEGREE A-V BLOCK POOR R WAVE PROGRESSION NONSPECIFIC ST AND T WAVE ABNORMALITY ABNORMAL ECG NO PREVIOUS ECGS AVAILABLE Confirmed by MD NAPIER DAVID ([id number]) on 02/25/2025 12:33:22 PM NAME : ELSA PALACIO PID : [id number] : 1940 Gender : Male Race : ORD : [id number] Procedure Date : Feb 25 2025 00:38:41 Edit Date : Feb 25 2025 12:33:26 Diagnosis: NORMAL SINUS RHYTHM WITH 1ST DEGREE A-V BLOCK POOR R WAVE PROGRESSION NONSPECIFIC ST AND T WAVE ABNORMALITY ABNORMAL ECG NO PREVIOUS ECGS AVAILABLE Confirmed by MD NAPIER DAVID ([id number]) on 02/25/2025 12:33:22 PM Test Reason : Check QT Location : 200 : [facility] Overread By : MD NAPIER DAVID Edited By : MD NAPIER DAVID Referred By : SHAWN CHAU Acquired by : DIPIKA ADRIAN [facility] HIGH SENSITIVITY TROPONIN To n 02-25-2025 Troponin T.cardiac High sensitivity method [Mass/Vol] 287 ng/L High <12 [facility] Comment on above: Order Comment: Speci men Type: BLOOD SPECIMEN Ordering Facility: [facility] Address: [address], [place] [id number] Performed By: #### 3 016-3, 20969-5, HSTNT, 30333-2, 27460-5, 29213-9 #### [facility] CLIA [id number] 1 [place] [address] [place] HISTORY PHYSICALon HISTORY PHYSICAL HNO ID: [id number] Author: YULISSA THORNTON MD Service: Hospital Medicine [...] hx HTN, hypothyroidism, BPH, a transfer fr [place] where he presented w/ exertional chest pain/sob w/ uptrending troponins, 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 VSS, currently comfortable. EKG in [place] was NSR, EKG here concerning for Afib. [...] home Tamsulosin/finasterid e Full code [facility] MEDICINE HISTORY AND PHYSICAL EXAM SERVICE DATE: 02/25/2025 SERVICE TIME: 12:23 AM Primary Care Physician: Jeremias Damico MD NIGHT AND WEEKEND COVERAGE: From 7am - 7pm, please call Sound After 7pm, please call cross cover pager #[phone] Subjective CHIEF COMPLAINT: Abnormal heart cath HPI: [...] lb 6. (more content not included)... Normal [facility] HbA1c (Bld)on 02-25-2025 Average glucose Estimated from glycated hemoglobin (Bld) [Mass/Vol] 123 mg/dL Normal [facility] Comment on above: Order Comment: Speci men Type: BLOOD SPECIMEN Ordering Facility: [facility] Address: [address] [place] [address] Result Comment: eAG: (Estimated average glucose) is a calculated value from HgbA1c and is outside sales representative insurance of the average blood glucose level in the last 2-3 month period. Performed By: #### 3 016-3, 21142-8, HSTNT, 24241-1, 55126-5, 27171-5 #### [facility] CLIA [id number] [address] HbA1c (Bld) [Mass fraction] 5.9 % High 4.3-5.6 [facility] Comment on above: Order Comment: Speci men Type: BLOOD SPECIMEN Ordering Facility: [facility] Address: [address] [place] [address] Result Comment: Amer [place] Diabetes Association guidelines indicate that patients with HgbA1c in the range 5.7-6.4% are at increased risk for development of diabetes, and intervention by lifestyle modification may be beneficial. HgbA1c greater or equal to 6.5% is considered diagnostic of diabetes. Performed By: #### 3 016-3, 72261-0, HSTNT, 78557-2, 72968-0, 01224-7 #### [facility] CLIA [id number] [address] Hepatic function 2000 panelo n 02-25-2025 Albumin [Mass/Vol] 3.9 g/dL Normal 3.9-4.9 [facility] Comment on above: Order Comment: Speci men Type: BLOOD SPECIMEN Ordering Facility: [facility] Address: [address] [place] [address] Performed By: #### 3 016-3, 58278-6, HSTNT, 30622-4, 79025-6, 62990-5 #### [facility] CLIA [id number] [address] STATES [facility] ALP [Catalytic activity/Vol] 90 U/L Normal 38-113 [facility] Comment on above: Order Comment: Speci men Type: BLOOD SPECIMEN Ordering Facility: [facility] Address: [address] [place] [address] Performed By: #### 3 016-3, 75710-9, HSTNT, 25331-8, 31264-6, 95363-1 #### [facility] CLIA [id number] [address] [place] [address] [place] ALT With P-5'-P [Catalytic activity/Vol] 18 U/L Normal 10-54 [facility] Comment on above: Order Comment: Speci men Type: BLOOD SPECIMEN Ordering Facility: [facility] Address: [address] [place] [address] Performed By: #### 3 016-3, 50788-4, HSTNT, 30108-9, 73767-3, 75656-9 #### [facility] CLIA [id number] 1 [place] [address] [place] AST With P-5'-P [Catalytic activity/Vol] 44 U/L High 14-40 [facility] Comment on above: Order Comment: Speci men Type: BLOOD SPECIMEN Ordering Facility: [facility] Address: [address] [place] [address] Performed By: #### 3 016-3, 97458-0, HSTNT, 20634-8, 93473-8, 55176-9 #### [facility] CLIA [id number] [address] [place] [address] [place] Bilirubin [Mass/Vol] 0.6 mg/dL Normal 0.2-1.3 [facility] Comment on above: Order Comment: Speci men Type: BLOOD SPECIMEN Ordering Facility: [facility] Address: [address] [place] [address] Performed By: #### 3 016-3, 94804-4, HSTNT, 61107-4, 46820-8, 69492-0 #### [facility] CLIA [id number] [address] [place] [address] [place] Bilirubin.conjugated [Mass/Vol] 0.2 mg/dL Normal <0.3 [facility] Comment on above: Order Comment: Speci men Type: BLOOD SPECIMEN Ordering Facility: [facility] Address: [address] [place] [address] Performed By: #### 3 016-3, 88248-3, HSTNT, 02130-9, 70599-1, 62034-3 #### [facility] CLIA [id number] [address] [place] Protein [Mass/Vol] 6.4 g/dL Normal 6.3-8.0 [facility] Comment on above: Order Comment: Speci men Type: BLOOD SPECIMEN Ordering Facility: [facility] Address: [address] [place] [address] Performed By: #### 3 016-3, 63413-2, HSTNT, 19500-1, 82637-3, 31288-4 #### [facility] CLIA [id number] 1 [place] [address] [place] [facility] Magnesium [Mass/Vol] 2.1 mg/dL Normal 1.7-2.3 [facility] Comment on above: Order Comment: Speci men Type: BLOOD SPECIMEN Ordering Facility: [facility] Address: [address] [place] [address] Performed By: #### 3 016-3, 92181-9, HSTNT, 50792-2, 85384-8, 88917-1 #### [facility] CLIA [id number] [address] [place] NT-proBNP SerPl-ncon 02-25 Natriuretic peptide.B prohormone N-Terminal [Mass/Vol] 2640 pg/mL High <450 [facility] Comment on above: Order Comment: Speci men Type: BLOOD SPECIMEN Ordering Facility: [facility] Address: [address] [place] [address] Performed By: #### 3 016-3, 78830-2, HSTNT, 84028-3, 72666-9, 74969-5 #### [facility] CLIA [id number] [address] [place] PT panel Coag (PPP)on 2024 INR Coag (PPP) [Relative time] 1.0 {INR} Normal 0.9-1.3 [facility] Comment on above: Order Comment: Speci men Type: BLOOD SPECIMEN Ordering Facility: [facility] Address: [address] [place] [address] Result Comment: Sigrid min K Antagonist (VKA) Therapeutic Range: INR 2 to 3 (Target INR of 2.5) Note: For patients treated with VKA drugs, such as warfarin, the [place] [employer] 2012 Guideline recommends [...] Chest 2012, 141:7S-47S Jose RA, et al. [facility] 2017, 70: 252-289 Performed By: #### 3 016-3, 18200-1, HSTNT, 22050-8, 86187-6, 52449-0 #### [facility] CLIA [id number] 1 [place] [address] [place] PT Coag (PPP) [Time] 10.5 s Normal 9.7-13.0 [facility] Comment on above: Order Comment: Speci men Type: BLOOD SPECIMEN Ordering Facility: [facility] Address: [address] [place] [address] Performed By: #### 3 016-3, 89892-9, HSTNT, 18243-2, 93823-4, 01536-3 #### [facility] CLIA [id number] 1 [place] [address] [place] STAPHYLOCOCCUS AUREUS AND MR SA SCREEN, PCR, NASALon 02-25-2025 S. aureus and MRSA panel MARYANNE+probe (Nose) Not detected Normal Not Detected [facility] Comment on above: Order Comment: Speci men Type: SWAB Ordering Facility: [facility] Address: [address] [place] [address] Performed By: #### S APCR #### [facility] CLIA [id number] [address] STATES OF [facility] THERAPY NTon 02-25-2025 THERAPY NT HNO ID: [id number] Author: NATA FRY RRT Service: Respiratory Therapy [...] 2025 TIME: 6:34 PM PAGER/CONTACT #: Normal [facility] TSH SerPl-aCncon 02-25-2025 TSH Qn 1.880 m[IU]/L Normal 0.270-4.200 [facility] Comment on above: Order Comment: Speci men Type: BLOOD SPECIMEN Ordering Facility: [facility] Address: [address] [place], [place] [address] Performed By: #### 1 9123-9, 73983-3 #### [facility] CLIA [id number] [address] OF [facility] TYPE + SCREENon 02-25-2025 ABO B Normal [facility] Comment on above: Order Comment: Speci men Type: BLOOD SPECIMEN Ordering Facility: [facility] Address: [address] [place] [address] Performed By: #### 3 016-3, 82521-5, HSTNT, 87889-1, 74769-6, 08495-1 #### [facility] CLIA [id number] [address] OF [facility] Rh Nom (Bld) Positive Normal [facility] Comment on above: Order Comment: Speci men Type: BLOOD SPECIMEN Ordering Facility: [facility] Address: [address] [place] [address] Performed By: #### 3 016-3, 67659-8, HSTNT, 43468-8, 12512-0, 50071-8 #### [facility] CLIA [id number] [address] TYPE AND SCREEN EXPIRATION 02/28/2025 23:59 Normal [facility] Comment on above: Order Comment: Speci men Type: BLOOD SPECIMEN Ordering Facility: [facility] Address: [address] [place] [address] Performed By: #### 3 016-3, 03123-9, HSTNT, 97290-0, 31123-5, 78375-9 #### [facility] CLIA [id number] [address] OF [facility] US CAROTID BILon 02-25-2025 US CAROTID NGUYỄN * * *Final Report* * * DATE OF EXAM: Feb 25 2025 1:26PM A2U 1077 - US CAROTID NGUYỄN / PROCEDURE REASON: preop cabg * * * * Physician Interpretation * * * * Non-Invasive Vascular Laboratory [facility] Carotid Duplex Bilateral/Complete Date of service/time: 02/25/2025 12:35:13 PM [facility] Name: MR. ELSA PALACIO Date of : [...] * * Final * * * RP Compliance Review Specialist: AMY Transcribe Date/Time: Feb 25 2025 12:35P Dictated by : MCKAYLA PERSON MD This examination was interpreted and the report reviewed and electronically signed by: MCKAYLA PERSON MD on Feb 26 2025 8:50AM EST [id number] Normal [facility] Urinalysis complete panel (U )on 02-25-2025 Bilirubin Ql (U) Negative Normal Negative [facility] Comment on above: Order Comment: Speci men Type: BLOOD SPECIMEN Ordering Facility: [facility] Address: [address] [place], [place] [address] Performed By: #### 3 016-3, 83022-9, HSTNT, 72166-5, 32797-5, 85387-9 #### [facility] CLIA [id number] [address] [place] Clarity (Unsp spec) Turbid Abnormal Clear [facility] Comment on above: Order Comment: Speci men Type: BLOOD SPECIMEN Ordering Facility: [facility] Address: [address] [place] [address] Performed By: #### 3 016-3, 76218-2, HSTNT, 73004-8, 34187-3, 67349-6 #### [facility] CLIA [id number] [address] Color (U) Yellow Normal yellow [facility] Comment on above: Order Comment: Speci men Type: BLOOD SPECIMEN Ordering Facility: [facility] Address: [address] [place] [address] Performed By: #### 3 016-3, 79777-6, HSTNT, 06651-5, 50166-7, 47374-3 #### [facility] CLIA [id number] [address] Epithelial cells LM.HPF (Urine sed) [#/Area] Few Abnormal None Seen [facility] Comment on above: Order Comment: Speci men Type: BLOOD SPECIMEN Ordering Facility: [facility] Address: [address] [place] [address] Performed By: #### 3 016-3, 50691-0, HSTNT, 19227-3, 53055-5, 81882-2 #### [facility] CLIA [id number] [address] [place] Glucose Test strip (U) [Mass/Vol] Negative Normal Trace, Negative [facility] Comment on above: Order Comment: Speci men Type: BLOOD SPECIMEN Ordering Facility: [facility] Address: [address] [place] [address] Performed By: #### 3 016-3, 32397-7, HSTNT, 39478-6, 58343-4, 67826-8 #### [facility] CLIA [id number] 1 [place] [address] [place] Hemoglobin Ql (U) Negative Normal Negative, Trace [facility] Comment on above: Order Comment: Speci men Type: BLOOD SPECIMEN Ordering Facility: [facility] Address: [address] [place] [address] Performed By: #### 3 016-3, 10159-8, HSTNT, 99657-1, 76664-4, 30296-7 #### [facility] CLIA [id number] [address] OF [facility] Ketones Ql (U) Negative Normal Negative, Trace [facility] Comment on above: Order Comment: Speci men Type: BLOOD SPECIMEN Ordering Facility: [facility] Address: [address] [place] [address] Performed By: #### 3 016-3, 50402-0, HSTNT, 45888-2, 56113-1, 47681-4 #### [facility] CLIA [id number] [address] Leukocyte esterase Test strip Ql (U) Negative Normal Negative, 25 Iliana/uL [facility] Comment on above: Order Comment: Speci men Type: BLOOD SPECIMEN Ordering Facility: [facility] Address: [address] [place] [address] Performed By: #### 3 016-3, 47565-5, HSTNT, 90606-4, 11976-3, 19716-9 #### [facility] CLIA [id number] [address] Nitrite Ql (U) Negative Normal Negative [facility] Comment on above: Order Comment: Speci men Type: BLOOD SPECIMEN Ordering Facility: [facility] Address: [address] [place] [address] Performed By: #### 3 016-3, 47397-2, HSTNT, 56917-8, 20958-0, 18046-6 #### [facility] CLIA [id number] 1 [place] [address] [place] pH (U) 7.5 [pH] Normal 5.0-8.0 [facility] Comment on above: Order Comment: Speci men Type: BLOOD SPECIMEN Ordering Facility: [facility] Address: [address] [place] [address] Performed By: #### 3 016-3, 21965-4, HSTNT, 84613-5, 47993-1, 65190-9 #### [facility] CLIA [id number] 1 [place] [address] [place] Protein (U) [Mass/Vol] Negative Normal Trace, Negative [facility] Comment on above: Order Comment: Speci men Type: BLOOD SPECIMEN Ordering Facility: [facility] Address: [address] [place] [address] Performed By: #### 3 016-3, 47553-9, HSTNT, 37521-8, 10014-1, 06499-2 #### [facility] CLIA [id number] 1 [place] [address] [place] RBC LM.HPF (Urine sed) [#/Area] 11-25 /HPF Abnormal 0-3 /HPF [facility] Comment on above: Order Comment: Speci men Type: BLOOD SPECIMEN Ordering Facility: [facility] Address: [address] [place] [address] Performed By: #### 3 016-3, 02446-9, HSTNT, 14258-0, 61270-4, 04729-2 #### [facility] CLIA [id number] 1 [place] [address] [place] Specific gravity (U) [Rel density] 1.019 Normal 1.005-1.030 [facility] Comment on above: Order Comment: Speci men Type: BLOOD SPECIMEN Ordering Facility: [facility] Address: [address] [place] [address] Performed By: #### 3 016-3, 25321-3, HSTNT, 20835-0, 11006-7, 01719-9 #### [facility] CLIA [id number] [address] [place] Urobilinogen Ql (U) Normal Normal Normal [facility] Comment on above: Order Comment: Speci men Type: BLOOD SPECIMEN Ordering Facility: [facility] Address: [address] [place] [address] Performed By: #### 3 016-3, 19986-0, HSTNT, 61909-7, 20495-6, 27046-0 #### [facility] CLIA [id number] [address] [place] WBC LM.HPF (Urine sed) [#/Area] 0-5 /HPF Normal 0-5 /HPF [facility] Comment on above: Order Comment: Speci men Type: BLOOD SPECIMEN Ordering Facility: [facility] Address: [address] [place] [address] Performed By: #### 3 016-3, 80580-0, HSTNT, 19642-0, 47586-8, 66087-6 #### [facility] CLIA [id number] [address] [place] aPTT PPPon 02-25-2025 aPTT Coag (PPP) [Time] 64.3 s High 23.0-32.4 [facility] Comment on above: Order Comment: Speci men Type: BLOOD SPECIMEN Ordering Facility: [facility] Address: [address] [place] [address] Performed By: #### 3 016-3, 39774-0, HSTNT, 83166-0, 81280-9, 25580-4 #### [facility] CLIA [id number] [address] [place] aPTT Coag (PPP) [Time] 63.5 s High 23.0-32.4 [facility] Comment on above: Order Comment: Speci men Type: BLOOD SPECIMEN Ordering Facility: [facility] Address: [address] [place] [address] Performed By: #### 3 016-3, 70822-0, HSTNT, 85307-9, 10466-1, 95188-1 #### [facility] CLIA [id number] 1 [place] [address] [place] aPTT Coag (PPP) [Time] 35.3 s High 23.0-32.4 [facility] Comment on above: Order Comment: Speci men Type: BLOOD SPECIMEN Ordering Facility: [facility] Address: [facility] [place] [address] Performed By: #### 3 016-3, 10292-5, HSTNT, 49177-4, 24982-8, 04971-9 #### [facility] CLIA [id number] 1 [place] [id number] [facility] Basic Metabolic Profile (BMP )on 02-24-2025 BUN/CRE 16.7 RATIO Normal 10-20 [facility] Comment on above: Performed By: #### L 500.2500, L100.0100, L501.4021 ####[facility] [address] [place], [address] Calcium [Mass/Vol] 9.4 mg/dL Normal 7.6-11.0 [facility] Comment on above: Performed By: #### L 500.2500, L100.0100, L501.4021 ####[facility] [address] [place], [address] Chloride [Moles/Vol] 100 mmol/L Normal 98-108 [facility] Comment on above: Performed By: #### L 500.2500, L100.0100, L501.4021 ####[facility] [address] [place], [address] CO2 [Moles/Vol] 24.9 mmol/L Normal 21.0-32.0 [facility] Comment on above: Performed By: #### L 500.2500, L100.0100, L501.4021 ####[facility] [address] [place], [address] Creatinine [Mass/Vol] 1.11 mg/dL Normal 0.70-1.20 [facility] Comment on above: Performed By: #### L 500.2500, L100.0100, L501.4021 ####[facility] [address] [place], [address] ECRCL 50.24 ml/min Normal 50-250 [facility] Comment on above: Performed By: #### L 500.2500, L100.0100, L501.4021 ####[facility] [address] [place], [address] GAP 9 Normal 5-15 [facility] Comment on above: Performed By: #### L 500.2500, L100.0100, L501.4021 ####[facility] [address] [place], [address] GFR/1.73 sq M.predicted among non-blacks MDRD (S/P/Bld) [Vol rate/Area] 65 mL/min/{1.73_m2} Normal >60 [facility] Comment on above: Result Comment: mL/m in/1.73m2 CKD-EPI Creatinine Equation (2020) Performed By: #### L 500.2500, L100.0100, L501.4021 ####[facility] [address] [place], [address] Glucose [Mass/Vol] 148 mg/dL High 70-99 [facility] Comment on above: Performed By: #### L 500.2500, L100.0100, L501.4021 ####[facility] [address] [place], [address] Potassium [Moles/Vol] 4.1 mmol/L Normal 3.3-5.1 [facility] Comment on above: Performed By: #### L 500.2500, L100.0100, L501.4021 ####[facility] [address] [place], [address] Sodium [Moles/Vol] 135 mmol/L Normal 133-145 [facility] Comment on above: Performed By: #### L 500.2500, L100.0100, L501.4021 ####[facility] [address] [place], [address] Urea nitrogen [Mass/Vol] 19 mg/dL Normal 4-19 [facility] Comment on above: Performed By: #### L 500.2500, L100.0100, L501.4021 ####[facility] [address] [place], [address] CBC W/Diff, Automatedon 11-0 -2024 Absolute Neut Normal 2.0-7.7 [facility] Comment on above: Order Comment: Comme nts: If not done in prior 24 hours Result Comment: DUPL ICATE ORDER, CBCD DONE IN PRIOR 24 HOURS. SPOKE WITH Trudy NELSON RN TO VERIFY Performed By: #### L 300.4310, L300.3900, L100.0100 #### [facility] [address] [place], [address] HCT Normal 40-54 [facility] Comment on above: Order Comment: Comme nts: If not done in prior 24 hours Result Comment: DUPL ICATE ORDER, CBCD DONE IN PRIOR 24 HOURS. SPOKE WITH Trudy NELSON RN TO VERIFY Performed By: #### L 300.4310, L300.3900, L100.0100 #### [facility] [address] [place], [address] HGB Normal 13.0-16.5 [facility] Comment on above: Order Comment: Comme nts: If not done in prior 24 hours Result Comment: DUPL ICATE ORDER, CBCD DONE IN PRIOR 24 HOURS. SPOKE WITH Trudy NELSON RN TO VERIFY Performed By: #### L 300.4310, L300.3900, L100.0100 #### [facility] [address] [place], [address] MCH Normal 27.0-32.0 [facility] Comment on above: Order Comment: Comme nts: If not done in prior 24 hours Result Comment: DUPL ICATE ORDER, CBCD DONE IN PRIOR 24 HOURS. SPOKE WITH Trudy NELSON RN TO VERIFY Performed By: #### L 300.4310, L300.3900, L100.0100 #### [facility] [address] [place], [address] MCHC Normal 32-36 [facility] Comment on above: Order Comment: Comme nts: If not done in prior 24 hours Result Comment: DUPL ICATE ORDER, CBCD DONE IN PRIOR 24 HOURS. SPOKE WITH Trudy NELSON RN TO VERIFY Performed By: #### L 300.4310, L300.3900, L100.0100 #### [facility] [address] [place], [address] MCV Normal 80-94 [facility] Comment on above: Order Comment: Comme nts: If not done in prior 24 hours Result Comment: DUPL ICATE ORDER, CBCD DONE IN PRIOR 24 HOURS. SPOKE WITH Trudy NELSON RN TO VERIFY Performed By: #### L 300.4310, L300.3900, L100.0100 #### [facility] [address] [place], [address] NEUT% Normal 47-70 [facility] Comment on above: Order Comment: Comme nts: If not done in prior 24 hours Result Comment: DUPL ICATE ORDER, CBCD DONE IN PRIOR 24 HOURS. SPOKE WITH Trudy NELSON RN TO VERIFY Performed By: #### L 300.4310, L300.3900, L100.0100 #### [facility] [address] [place], [address] PLT Normal 150-450 [facility] Comment on above: Order Comment: Comme nts: If not done in prior 24 hours Result Comment: DUPL ICATE ORDER, CBCD DONE IN PRIOR 24 HOURS. SPOKE WITH L NELSON RN TO VERIFY Performed By: #### L 300.4310, L300.3900, L100.0100 #### [facility] [address] [place], [address] RBC Normal 4.6-6.2 [facility] Comment on above: Order Comment: Comme nts: If not done in prior 24 hours Result Comment: DUPL ICATE ORDER, CBCD DONE IN PRIOR 24 HOURS. SPOKE WITH Trudy NELSON RN TO VERIFY Performed By: #### L 300.4310, L300.3900, L100.0100 #### [facility] [address] [place], [address] RDW CV Normal 11.6-14.6 [facility] Comment on above: Order Comment: Comme nts: If not done in prior 24 hours Result Comment: DUPL ICATE ORDER, CBCD DONE IN PRIOR 24 HOURS. SPOKE WITH Trudy NELSON RN TO VERIFY Performed By: #### L 300.4310, L300.3900, L100.0100 #### [facility] [address] [place], [address] RDW SD Normal 35.1-43.9 [facility] Comment on above: Order Comment: Comme nts: If not done in prior 24 hours Result Comment: DUPL ICATE ORDER, CBCD DONE IN PRIOR 24 HOURS. SPOKE WITH Trudy NELSON RN TO VERIFY Performed By: #### L 300.4310, L300.3900, L100.0100 #### [facility] [address] [place], [address] WBC Normal 4.4-11.0 [facility] Comment on above: Order Comment: Comme nts: If not done in prior 24 hours Result Comment: DUPL ICATE ORDER, CBCD DONE IN PRIOR 24 HOURS. SPOKE WITH Trudy NELSON RN TO VERIFY Performed By: #### L 300.4310, L300.3900, L100.0100 #### [facility] [address] [place], [address] Absolute Lymph 1.59 X10 3/uL Normal 0.83-4.51 [facility] Comment on above: Performed By: #### L 500.2500, L100.0100, L501.4021 #### [facility] [address] [place], [address] Absolute Neut 6.8 X10 3/uL Normal 2.0-7.7 [facility] Comment on above: Performed By: #### L 500.2500, L100.0100, L501.4021 #### [facility] [address] [place], [address] Basophils/100 WBC (Bld) 0.5 % Normal 0-1 [facility] Comment on above: Performed By: #### L 500.2500, L100.0100, L501.4021 #### [facility] [address] [place], [address] Eosinophils/100 WBC (Bld) 1.7 % Normal 0-5 [facility] Comment on above: Performed By: #### L 500.2500, L100.0100, L501.4021 #### [facility] [address] [place], [address] Erythrocyte distribution width (RBC) [Ratio] 12.2 % Normal 11.6-14.6 [facility] Comment on above: Performed By: #### L 500.2500, L100.0100, L501.4021 #### [facility] [address] [place], [address] Hematocrit (Bld) [Volume fraction] 43.4 % Normal 40-54 [facility] Comment on above: Performed By: #### L 500.2500, L100.0100, L501.4021 #### [facility] [address] [place], [address] Hemoglobin (Bld) [Mass/Vol] 14.4 g/dL Normal 13.0-16.5 [facility] Comment on above: Performed By: #### L 500.2500, L100.0100, L501.4021 #### [facility] [address] [place], [address] IG% 0.300 Normal 0.0-0.9 [facility] Comment on above: Result Comment: IG% - Immature Granulocytes (promyelocytes, myelocytes and metamyelocytes) > 1% indicates that a LEFT SHIFT is Present. Performed By: #### L 500.2500, L100.0100, L501.4021 #### [facility] [address] [place], [address] Lymphocytes/100 WBC (Bld) 17.2 % Low 19-41 [facility] Comment on above: Performed By: #### L 500.2500, L100.0100, L501.4021 #### [facility] [address] [place], [address] MCH (RBC) [Entitic mass] 31.0 pg Normal 27.0-32.0 [facility] Comment on above: Performed By: #### L 500.2500, L100.0100, L501.4021 #### [facility] [address] [place], [address] MCHC (RBC) [Mass/Vol] 33.2 g/dL Normal 32-36 [facility] Comment on above: Performed By: #### L 500.2500, L100.0100, L501.4021 #### [facility] [address] [place], [address] MCV (RBC) [Entitic vol] 93.3 fL Normal 80-94 [facility] Comment on above: Performed By: #### L 500.2500, L100.0100, L501.4021 #### [facility] [address] [place], [address] Monocytes/100 WBC (Bld) 6.5 % Normal 0-10 [facility] Comment on above: Performed By: #### L 500.2500, L100.0100, L501.4021 #### [facility] [address] [place], [address] Neutrophils/100 WBC (Bld) 73.8 % High 47-70 [facility] Comment on above: Performed By: #### L 500.2500, L100.0100, L501.4021 #### [facility] [address] [place], [address] Nucleated RBC (Bld) [#/Vol] 0 10*3/uL Normal 0-5 [facility] Comment on above: Performed By: #### L 500.2500, L100.0100, L501.4021 #### [facility] [address] [place], [address] Platelet mean volume (Bld) [Entitic vol] 9.8 fL Normal 6.2-12.0 [facility] Comment on above: Performed By: #### L 500.2500, L100.0100, L501.4021 #### [facility] [address] [place], [address] Platelets (Bld) [#/Vol] 225 10*3/uL Normal 150-450 [facility] Comment on above: Performed By: #### L 500.2500, L100.0100, L501.4021 #### [facility] [address] [place], [address] RBC (Bld) [#/Vol] 4.65 10*6/uL Normal 4.6-6.2 [facility] Comment on above: Performed By: #### L 500.2500, L100.0100, L501.4021 #### [facility] [address] [place], [address] RDW SD 42.0 fl Normal 35.1-43.9 [facility] Comment on above: Performed By: #### L 500.2500, L100.0100, L501.4021 #### [facility] [address] [place], [address] WBC (Bld) [#/Vol] 9.3 10*3/uL Normal 4.4-11.0 [facility] Comment on above: Performed By: #### L 500.2500, L100.0100, L501.4021 #### [facility] [address] [place], [address] Cardiac Cath Diagnosticon Cardiac Cath Diagnostic [facility] Imaging Services [address] [facility] [place] [address] Cardiac Cath Diagnostic MR#: [id number] Acct: [id number] Name: ELSA PALACIO Rep #: [id number] : 1940 85 From: Augustine Moy MD PCP: Dr. Jeremias Damico MD Status:ADM IN Patient Name: ELSA PALACIO Study Date: 02/24/2025 Performing: Sravan Moy MD Ht: 70 inches 177.8 cm : 1940 Wt: 164.2 lbs 74.39 kg Age: 85 Gender: male BSA: 1.92 PROCEDURE(S) PERFORMED DC01-(57059)LHC/COR/L V CLINICAL PROFILE AND INDICATIONS Indications: ACS [...] Dictated: 02/24/25 1125 Date Transcribed: 02/24/25 1226 Compliance Review Specialist: NN Signed Normal [facility] Chest 1 View (Portable)on Chest 1 View (Portable) [facility] Imaging Services [address] [place] [address] ( Chest 1 View (Portable) MR#: [id number] Acct: [id number] Name: ELSA PALACIO Rep #: [id number] : 1940 M 85 From: Elvis Jarvis MD PCP: Dr. Jeremias Damico MD Status: REG ER Study: Chest 1 View (Portable) Date of Exam: 02/24/25 Exam# [id number] Ordering Dr: Salomon Marquez MD PROCEDURE: CHEST 1 VIEW (PORTABLE) 02/24/2025 REASON FOR EXAM: CHEST PAIN TECHNIQUE: Frontal view of the chest. COMPARISON: None FINDINGS: Hardware: EKG leads Heart: The heart size is normal. The aorta is atherosclerotic. Lungs: The lungs are clear. Bones: The bones are unremarkable. RAD/Chest 1 View (Portable) IMPRESSION: No acute cardiopulmonary process. Reading Location: [id number] CC: Dr. Salomon Marquez MD; Dr. Jeremias Damico MD Compliance Review Specialist: Signed Normal [facility] Consultation - Cardiologyon 02-24-2025 Consultation - Cardiology [facility] Medical Records Department [address] [place] [address] Consultation - Cardiology 02/24/25 0957 MR#: [id number] Acct: [id number] Name: ELSA PALACIO Rep #: [id number] : 1940 85 From: Shawn Chau MD [...] of about 5 years ago through the [facility] been evaluated for dyspnea on exertion. [...] through Dr. Milind Ty's office at the [facility] for primary services. The patient is not allergic to iodine. [facility] Medical History (Updated 02/24/25 @ 10:09 by [...] HEENT: Reports (more content not included)... Normal [facility] Echo Completeon 02-24-2025 Echo Complete [facility] Cardiovascular Services [address] [place] [address] Echo Complete 02/24/25 1318 MR#: [id number] Acct: [id number] Name: ELSA PALACIO Rep #: [id number] : 1940 85 From: Donna Ndiaye MD Attending Dr: Dr. Anibal Shore MD Status: ADM IN Ordering Dr: Anibal Shore MD Date: 02/24/25 Location: [facility] Sex: M C Admitted: 02/24/25 Reason For [...] Physician: Jeremias Damico Performed By: Santino [facility] 02/24/25 1543 Date Donna Ndiaye MD CC: Dr. Anibal Shore MD; Dr. Jeremias Damico MD; Dr. Augustine Moy MD Date Dictated: 02/24/25 1318 Date Transcribed: 02/24/25 1543 Compliance Review Specialist: Signed Normal [facility] Emergency Department Summary on 02-24-2025 Emergency Department Summary [facility] Medical Records Department [address] [place] [address] Emergency Department Summary 02/24/25 MR#: [id number] Acct: [id number] Name: ELSA PALACIO Rep #: [id number] : 1940 85 From: Salomon Marquez MD PCP: Dr. Jeremias Damico MD Status:ADM IN Location: [place] [address] HPI History of Present Illness Chief Complaint: [...] 4-6 years ago, with no reported abnormalities. [facility] Medical History Hypertension Home Medications ???Medication ???Instructions [...] regular rate, (more content not included)... Normal [facility] H AND P Exam - Hospitaliston 02-24-2025 H&P Exam - Hospitalist [facility] Medical Records Department [address] [place] [address] H P Exam - Hospitalist 02/24/25 0946 MR#: [id number] Acct: [id number] Name: ELSA PALACIO Rep #: [id number] : 1940 85 From: Anibal Shore MD PCP: Dr. Jeremias Damico MD Status:ADM IN Location: [address] HPI - General General Date of [...] Cardiology was consulted patient started on heparin [facility] Medical History (Updated 02/24/25 @ 10:09 by [...] 73.8 H, Lymph % (Auto) 17.2 L, [place] % (Auto) 6.5, Eos % (Auto) 1.7, [...] IMPRESSION: No acute cardiopulmonary process. Reading Location: [facility] Assessment Plan Assessment/Plan (1) ACS (acute coronary syndrome): PLAN: Plan Patient is an 85-year-old gentleman presenting with exertional chest pain with elevated troponin 1. Acute non-STEMI ??? Patient admitted to monitored bed treatment initiated per protoc (more content not included)... Normal [facility] L501.4021on 02-24-2025 Trop T High Sen 218 ng/L Invalid Interpretation Code <=22 [facility] Comment on above: Result Comment: Crit ical Result(s) Called at: 0905 02/24/25 by: NAN LONG??Results read back by same. Performed By: #### L 500.2500, L100.0100, L501.4021 #### [facility] [address] [place], [address] Partial Thromboplast Timeon 02-24-2025 aPTT Coag (Bld) [Time] 27.5 s Normal 24.1-36.2 [facility] Comment on above: Order Comment: Comme nts: If not done in prior 24 hours Performed By: #### L 300.4310, L300.3900, L100.0100 #### [facility] [address] [place], [address] Prothrombin Time w/INRon INR Coag (PPP) [Relative time] 1.0 {INR} Normal [facility] Comment on above: Order Comment: Comme nts: If not done in prior 24 hours Performed By: #### L 300.4310, L300.3900, L100.0100 #### [facility] [address] [place], [address] PT Coag (PPP) [Time] 13.4 s Normal 11.7-14.9 [facility] Comment on above: Order Comment: Comme nts: If not done in prior 24 hours Performed By: #### L 300.4310, L300.3900, L100.0100 #### [facility] [address] [place], [address] Troponin T HS 2 HRon 025 Trop T High Sen 243 ng/L Invalid Interpretation Code <=22 [facility] Comment on above: Result Comment: Crit ical Result(s) Called at:11202/24/25 by:??LTAYLOR Results read back by same. Performed By: #### L 499.0042 ####[facility] [address] [place], [address] Troponin T HS 4 HRon 025 Trop T High Sen 252 ng/L Invalid Interpretation Code <=22 [facility] Comment on above: Result Comment: Crit ical Result(s) Called at: 1251 02/24/25 by: HARPER??Results read back by same. Performed By: #### L 499.0043 ####[facility] [address] 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 docusate sodium([employer] LIQUI-GELS 100 MG CAP) Take by mouth [...] Past Histories independently gathered by the clinical residential direct support professional and the remaining scribed note accurately desc (more content not included)... Normal [facility] CNOVon 12-22-2024 CNOV Office Visit (UROLWS ) ELSA PALACIO ([id number]) 1940 M Date Time Provider Department 12/22/24 2:00 PM SHAQ BISHOP During your visit today, we recorded the following information about you: Leilani Archer LPN 12/22/2024 4:42 PM Signed Verified name and date of . CC Post Void Residual HPI: Elsa Palacio is a 84 year old male. The patient is here now for an appointment with MARTHA Martinez, [place], PA-COV. Procedure: Explained procedure to patient and verbalizes understanding. Performed a PVR. Patient urinated and instructed to empty bladder as much as possible just prior to having PVR done using bladder ultrasound scanner. Results of scan: 0 mL The patient tolerated the procedure well. Plan: Appointment with Shaq. hSaq Bishop PA-C 12/22/2024 4:42 PM Signed [facility] EST PATIENT CLINIC NOTE (M) Some elements copied from his previous note, which have been updated where appropriate, and all reflect current medical decision making from date of this visit. Note was generated by [employer] and edited as appropriate SERVICE DATE: [...] mg by mouth daily at bedtime. docusate sodium([employer] LIQUI-GELS 100 MG CAP) Take by mouth [...] (POCT) Cl (more content not included)... Normal [facility] UA DIP, URINE (POC)on 2024 BILIRUBIN UA (POCT) Negative Negative [facility] CLARITY UA (POCT) Clear [facility] COLOR UA (POCT) Dark yellow [facility] GLUCOSE UA (POCT) Negative Negative mg/dL [facility] Hemoglobin Ql (U) Trace-intact Abnormal Negative [facility] Interpretation and review of laboratory results Abnormal [facility] KETONE UA (POCT) Negative Negative mg/dL [facility] LEUKOCYTES UA (POCT) Negative [facility] NITRITE UA (POCT) Negative [facility] PH UA (POCT) 6.0 4.5 - 8.0 [facility] Protein Ql (U) Negative Negative mg/dL [facility] SPECIFIC GRAVITY UA (POCT) 1.015 1.005 - 1.030 [facility] UROBILINOGEN UA (POCT) 0.2 Normal E.U./dL [facility] Location:[facility], [address] [facility], [place], [place], [id number] [place] [address] POINT OF CARE [facility] CNOVon 12-17-2024 CNOV Office Visit (FAMPWS ) LILA PALACIORAZA Trudy ([id number]) 1940 M Date Time Provider Department 12/17/24 10:00 AM JEREMIAS DAMICO F[facility]WS During your visit today, we recorded the following information about you: Pulse Respiration Blood pressure Weight 61/minute 16/minute 158/82 79.1 kg Height 1.79 m Jeremias Damico MD 12/17/2024 12:01 PM Signed Elsa Yates Hakeem is a 84 year old male here [...] General (Family Medicine) Zeeshan Mahmood APRN.RUTHIE as Technical Project Coordinator (Family Medicine) Outside specialists seen: Urology, Dermatology [...] (IMITREX STA (more content not included)... Normal [facility] CBC panel Auto (Bld)on 12-14 Erythrocyte distribution width (RBC) [Ratio] 12.3 % Normal 11.5-15.0 [facility] Comment on above: Order Comment: Speci men Type: BLOOD SPECIMENOrdering Facility: [facility] Address: [address] [place] [address] Performed By: #### 5 8410-2 ####[facility] LABCLIA [id number] [place] [address] [place] Hematocrit (Bld) [Volume fraction] 44.3 % Normal 39.0-51.0 [facility] Comment on above: Order Comment: Speci men Type: BLOOD SPECIMENOrdering Facility: [facility] Address: [address] [place] [address] Performed By: #### 5 8410-2 ####[facility] LABCLIA [id number] [place] [address] [place] Hemoglobin (Bld) [Mass/Vol] 14.7 g/dL Normal 13.0-17.0 [facility] Comment on above: Order Comment: Speci men Type: BLOOD SPECIMENOrdering Facility: [facility] Address: [address] [place] [address] Performed By: #### 5 8410-2 ####[facility] LABIA [id number] [address] [place] MCH (RBC) [Entitic mass] 30.7 pg Normal 26.0-34.0 [facility] Comment on above: Order Comment: Speci men Type: BLOOD SPECIMENOrdering Facility: [facility] Address: [address] [place] [address] Performed By: #### 5 8410-2 ####[facility] LABIA [id number] [place] [address] [place] MCHC (RBC) [Mass/Vol] 33.2 g/dL Normal 30.5-36.0 [facility] Comment on above: Order Comment: Speci men Type: BLOOD SPECIMENOrdering Facility: [facility] Address: [address] [place] [address] Performed By: #### 5 8410-2 ####[facility] LABIA [id number] [place] [address] [place] MCV (RBC) [Entitic vol] 92.5 fL Normal 80.0-100.0 [facility] Comment on above: Order Comment: Speci men Type: BLOOD SPECIMENOrdering Facility: [facility] Address: [address] [place] [address] Performed By: #### 5 8410-2 ####[facility] LABIA [id number] [place] [address] [place] Nucleated RBC (Bld) [#/Vol] 10*3/uL Normal <0.01 [facility] Comment on above: Order Comment: Speci men Type: BLOOD SPECIMENOrdering Facility: [facility] Address: [address] [place] [address] Performed By: #### 5 8410-2 ####[facility] LABIA [id number] [address], [place] [address] [place] Platelet mean volume (Bld) [Entitic vol] 10.4 fL Normal 9.0-12.7 [facility] Comment on above: Order Comment: Speci men Type: BLOOD SPECIMENOrdering Facility: [facility] Address: [address] [place] [address] Performed By: #### 5 8410-2 ####[facility] LABIA [id number] [place] [address] [place] Platelets (Bld) [#/Vol] 213 10*3/uL Normal 150-400 [facility] Comment on above: Order Comment: Speci men Type: BLOOD SPECIMENOrdering Facility: [facility] Address: [address] [place] [address] Performed By: #### 5 8410-2 ####[facility] LABIA [id number] [place] [id number] [place] RBC (Bld) [#/Vol] 4.79 10*6/uL Normal 4.20-6.00 [facility] Comment on above: Order Comment: Speci men Type: BLOOD SPECIMENOrdering Facility: [facility] Address: [address] [place] [address] Performed By: #### 5 8410-2 ####[facility] LABCLIA [id number] [address] [address] [place] WBC (Bld) [#/Vol] 8.26 10*3/uL Normal 3.70-11.00 [facility] Comment on above: Order Comment: Speci men Type: BLOOD SPECIMENOrdering Facility: [facility] Address: [address] [place] [address] Performed By: #### 5 8410-2 ####[facility] LABCLIA [id number] [address] [address] [place] Comprehensive metabolic 2000 panelon 12-14-2024 Albumin [Mass/Vol] 3.9 g/dL Normal 3.9-4.9 [facility] Comment on above: Order Comment: Speci men Type: BLOOD SPECIMENOrdering Facility: [facility] Address: [address] [place] [address] Performed By: #### 2 4331-1, 75987-3, 3015-3 ####[facility] LABCLIA [id number] [place] [id number] [place] ALP [Catalytic activity/Vol] 93 U/L Normal 38-113 [facility] Comment on above: Order Comment: Speci men Type: BLOOD SPECIMENOrdering Facility: [facility] Address: [address] [place] [address] Performed By: #### 2 4331-1, 07741-9, 3015-3 ####[facility] LABCLIA [id number] [address] [address] [place] ALT [Catalytic activity/Vol] 15 U/L Normal 10-54 [facility] Comment on above: Order Comment: Speci men Type: BLOOD SPECIMENOrdering Facility: [facility] Address: [address] [place], [place] [address] Performed By: #### 2 4331-1, 63772-3, 6-3 ####[facility] LABCLIA [id number] [address] [address] [place] Anion gap [Moles/Vol] 11 mmol/L Normal 8-15 [facility] Comment on above: Order Comment: Speci men Type: BLOOD SPECIMENOrdering Facility: [facility] Address: [address] [place], [place] [address] Performed By: #### 2 4331-1, 69056-5, 6-3 ####[facility] LABCLIA [id number] [address] [address] [place] AST [Catalytic activity/Vol] 15 U/L Normal 14-40 [facility] Comment on above: Order Comment: Speci men Type: BLOOD SPECIMENOrdering Facility: [facility] Address: [address] [place] [address] Performed By: #### 2 4331-1, 06779-4, 6-3 ####[facility] LABIA [id number] [place] [address] [place] Bilirubin [Mass/Vol] 0.2 mg/dL Normal 0.2-1.3 [facility] Comment on above: Order Comment: Speci men Type: BLOOD SPECIMENOrdering Facility: [facility] Address: [address] [place], [place] [address] Performed By: #### 2 4331-1, 45244-4, 6-3 ####[facility] LABCLIA [id number] [address] [address] [place] Calcium [Mass/Vol] 9.7 mg/dL Normal 8.5-10.2 [facility] Comment on above: Order Comment: Speci men Type: BLOOD SPECIMENOrdering Facility: [facility] Address: [address] [place], [place] [address] Performed By: #### 2 4331-1, 43055-2, 3016-3 ####[facility] LABCLIA [id number] [address] [address] [place] Chloride [Moles/Vol] 103 mmol/L Normal 98-107 [facility] Comment on above: Order Comment: Speci men Type: BLOOD SPECIMENOrdering Facility: [facility] Address: [address] [place] [address] Performed By: #### 2 4331-1, 49354-9, 3016-3 ####[facility] LABCLIA [id number] [place] [address] [place] CO2 [Moles/Vol] 24 mmol/L Normal 22-30 [facility] Comment on above: Order Comment: Speci men Type: BLOOD SPECIMENOrdering Facility: [facility] Address: [address] [place] [address] Performed By: #### 2 4331-1, 09975-7, 3016-3 ####[facility] LABCLIA [id number] [place] [address] [place] Creatinine [Mass/Vol] 1.13 mg/dL Normal 0.73-1.22 [facility] Comment on above: Order Comment: Speci men Type: BLOOD SPECIMENOrdering Facility: [facility] Address: [address] [place] [address] Performed By: #### 2 4331-1, 49441-6, 3016-3 ####[facility] LABCLIA [id number] [place] [address] [place] eGFRcr SerPlBld CKD-EPI 2020 64 mL/min/1.73m??? Normal >=60 [facility] Comment on above: Order Comment: Speci men Type: BLOOD SPECIMENOrdering Facility: [facility] Address: [address] [place] [address] Result Comment: Monie mated Glomerular Filtration Rate [...] Performed By: #### 2 4331-1, , 3 ####[facility] LABCLIA [id number] [facility] [address] [address] [place] Glucose [Mass/Vol] 113 mg/dL High 74-99 [facility] Comment on above: Order Comment: Speci men Type: BLOOD SPECIMENOrdering Facility: [facility] Address: [address] [place] [address] Result Comment: The [place] Diabetes Association (ADA) provides guidance for cutoff [...] Standards of Medical Care in Diabetes 2016, [place] Diabetes Association. Diabetes Care. 2016.39(Suppl 1). Performed By: #### 2 4331-1, , 3015-06 ####[facility] LABCLIA [id number] [facility]RED[facility]ALK [address] [address] [place] Potassium [Moles/Vol] 4.6 mmol/L Normal 3.7-5.1 [facility] Comment on above: Order Comment: Sharon men Type: BLOOD SPECIMENOrdering Facility: [facility] Address: [address] [place] [address] Performed By: #### 2 4331-1, , 3015-06 ####[facility] LABCLIA [id number] [facility]ENTER[facility] [place] [address] [place] Protein [Mass/Vol] 6.2 g/dL Low 6.3-8.0 [facility] Comment on above: Order Comment: Speci men Type: BLOOD SPECIMENOrdering Facility: [facility] Address: [address] [place] [address] Performed By: #### 2 4331-1, , 3 ####[facility] LABCLIA [id number] [facility] [address] [place] [address] [place] Sodium [Moles/Vol] 138 mmol/L Normal 136-144 [facility] Comment on above: Order Comment: Speci men Type: BLOOD SPECIMENOrdering Facility: [facility] Address: [address] [place], [place] [address] Performed By: #### 2 4331-1, , 3015-06 ####[facility] LABCLIA [id number] [address] [address] [place] Urea nitrogen [Mass/Vol] 18 mg/dL Normal 9-24 [facility] Comment on above: Order Comment: Speci men Type: BLOOD SPECIMENOrdering Facility: [facility] Address: [address] [place], [place] [address] Performed By: #### 2 4331-1, , 3015-06 ####[facility] LABCLIA [id number] [address] [place] [address] [place] Lipid 1996 panelon 5 Cholesterol [Mass/Vol] 186 mg/dL Normal <200 [facility] Comment on above: Order Comment: Speci men Type: BLOOD SPECIMENOrdering Facility: [facility] Address: [address] [place] [address] Result Comment: <200 mg/dL, Desirable 200-239 mg/dL, Borderline high >239 mg/dL, High Performed By: #### 2 4331-1, , 3015-06 ####[facility] LABCLIA [id number] [address] [place] [address] [place] Cholesterol in HDL [Mass/Vol] 45 mg/dL Normal >39 [facility] Comment on above: Order Comment: Sharon shaw Type: BLOOD SPECIMENOrdering Facility: [facility] Address: [address] [place] [address] Result Comment: 40-5 9 mg/dL, Acceptable >59 mg/dL, High: Negative risk factor for coronary heart disease <40 mg/dL, Low: Positive risk factor for coronary heart disease Performed By: #### 2 4331-1, 23753-3, 6-3 ####[facility] LABIA [id number] [address] STATES OF [facility] Cholesterol in LDL [Mass/Vol] 116 mg/dL High <100 [facility] Comment on above: Order Comment: Teresebrian shaw Type: BLOOD SPECIMENOrdering Facility: [facility] Address: [address] [place] [address] Result Comment: <100 mg/dL, Optimal 100-129 mg/dL, Near optimal/above optimal 130-159 mg/dL, Borderline high 160-189 mg/dL, High >189 mg/dL, Very high Secondary prevention optimal LDL Cholesterol levels are recommended to be <70 mg/dL LDL cholesterol is calculated using the Rodriguez-NIH equation. Performed By: #### 2 4331-1, 29371-1, 3015-3 ####[facility] LABIA [id number] [address] [place] Cholesterol in LDL/Cholesterol in HDL [Mass ratio] 2.58 {ratio} High <2.54 [facility] Comment on above: Order Comment: Sharon shaw Type: BLOOD SPECIMENOrdering Facility: [facility] Address: [address] [place] [address] Result Comment: Refe rence: 1. National Cholesterol Education Program ATP III Guideline At-A-Glance Quick Desk Reference: National Heart, Lung, and Blood [place]. National Institutes of Health. 2001: NIH Publication No. 01-3305. 2. An International Atherosclerosis Society position paper: global recommendations for the management of dyslipidemia: executive summary, Atherosclerosis. 2014: 232(2):410-413. Performed By: #### 2 4331-1, , 3015-06 ####[facility] LABCLIA [id number] [address] [place] [address] [place] Cholesterol in VLDL [Mass/Vol] 24 mg/dL Normal <30 [facility] Comment on above: Order Comment: Speci men Type: BLOOD SPECIMENOrdering Facility: [facility] Address: [address] [place], [place] [address] Performed By: #### 2 4331-1, , 3015-06 ####[facility] LABCLIA [id number] [address] [place] [address] [place] Cholesterol non HDL [Mass/Vol] 141 mg/dL High <130 [facility] Comment on above: Order Comment: Speci men Type: BLOOD SPECIMENOrdering Facility: [facility] Address: [address] [place] [address] Result Comment: <130 mg/dL, Optimal 130-159 mg/dL, Near optimal/above optimal 160-189 mg/dL, Borderline high 190-219 mg/dL, High >219 mg/dL, Very high Secondary prevention optimal non HDL Cholesterol levels are recommended to be <100 mg/dL Performed By: #### 2 4331-1, , 3015-06 ####[facility] LABCLIA [id number] [address] [place] [address] [place] Cholesterol.total/Cho lesterol in HDL [Mass ratio] 4.13 {ratio} Normal <5.10 [facility] Comment on above: Order Comment: Speci men Type: BLOOD SPECIMENOrdering Facility: [facility] Address: [address] [place] [address] Performed By: #### 2 4331-1, , 3015-06 ####[facility] LABCLIA [id number] [address] [place] [address] [place] FASTING TIME 12 hrs Normal [facility] Comment on above: Order Comment: Speci men Type: BLOOD SPECIMENOrdering Facility: [facility] Address: [address] [place] [address] Performed By: #### 2 4331-1, 72913-1, 3 ####[facility] LABCLIA [id number] [place] [id number] [place] Triglyceride [Mass/Vol] 140 mg/dL Normal <150 [facility] Comment on above: Order Comment: Speci men Type: BLOOD SPECIMENOrdering Facility: [facility] Address: [address] [place] [address] Result Comment: <150 mg/dL, Normal 150-199 mg/dL, Borderline high 200-499 mg/dL, High >499 mg/dL, Very high Performed By: #### 2 4331-1, 93754-6, 3 ####[facility] LABCLIA [id number] [place] [id number] [place] TSH SerPl-aCncon 12-14-2024 TSH Qn 0.466 m[IU]/L Normal 0.270-4.200 [facility] Comment on above: Order Comment: Speci men Type: BLOOD SPECIMENOrdering Facility: [facility] Address: [address] [place] [address] Performed By: #### 2 4331-1, 22021-8, 3 ####[facility] LABIA [id number] [place] [id number] [place] CNOVon 11-19-2024 CNOV Office Visit (FAMPWS ) ELSA PALACIO ([id number]) 1940 M Date Time Provider Department 11/19/24 11:20 AM JEREMIAS ADMICOWS During your visit today, we recorded the following information about you: Pulse Respiration Blood pressure Weight 74/minute 16/minute 142/98 78 kg Jeremias Daimco MD 11/19/2024 12:00 PM Signed Chief Complaint [...] mg by mouth daily at bedtime. docusate sodium([employer] LIQUI-GELS 100 MG CAP) Take by mouth [...] to 100 mg daily; prescription sent to [facility] in [place]. - Advised patie (more content not included)... Normal [facility] CNOVon 10-13-2024 CNOV Office Visit (FAMPWS ) ELSA PALACIO ([id number]) 1940 M Date Time Provider Department 10/13/24 4:40 PM [facility] visit today, we recorded [...] mg by mouth daily at bedtime. docusate sodium([employer] LIQUI-GELS 100 MG CAP) Take by mouth [...] Prescription for losartan 50 mg sent to [facility] pharmacy. - Follow- (more content not included)... Normal [facility] CNOVon 09-04-2024 CNOV Office Visit (FAMPWS ) ELSA PALACIO ([id number]) 1940 M Date Time Provider Department 09/04/24 [...] BP and reported readings on 08/27/24 via [employer]. Denies any chest pains, dizziness, SOB, or [...] mg by mouth daily at bedtime. docusate sodium([employer] LIQUI-GELS 100 MG CAP) Take by mouth [...] or Mediterranean (more content not included)... Normal [facility] CNOVon 08-04-2024 CNOV Office Visit (NEHAHC ) ELSA PALACIO ([id number]) 1940 M Date Time Provider Department 08/04/24 9:30 AM [facility] During your visit today, we recorded the following information about you: Pulse Respiration Blood pressure Weight 55/minute 20/minute 147/77 80.5 kg Height 1.762 m Snow Brooks, NIDHI.OPTIONS ADVISOR 08/04/2024 10:06 AM Signed [facility] Follow up visit August 04, 2024 Chief [...] mg by mouth daily at bedtime. docusate sodium([employer] LIQUI-GELS 100 MG CAP) Take by mouth [...] last v (more content not included)... Normal [facility] UA DIP, URINE (POC)on 2023 BILIRUBIN UA (POCT) Negative Negative [facility] CLARITY UA (POCT) Clear [facility] COLOR UA (POCT) Dark yellow [facility] GLUCOSE UA (POCT) Negative Negative mg/dL [facility] Hemoglobin Ql (U) Negative Negative [facility] KETONE UA (POCT) Negative Negative mg/dL [facility] LEUKOCYTES UA (POCT) Negative Negative [facility] NITRITE UA (POCT) Negative Negative [facility] PH UA (POCT) 5.5 4.5 - 8.0 [facility] Protein Ql (U) Negative Negative mg/dL [facility] SPECIFIC GRAVITY UA (POCT) 1.025 1.005 - 1.030 [facility] UROBILINOGEN UA (POCT) 0.2 Normal E.U./dL [facility] Location:[facility], [address] [facility], [place], [place], [id number] [place] [address] POINT OF CARE [facility] ECG COMPLETEon 01-25-2023 Atrial Rate 70 BPM [facility] Calculated P [place] 41 degrees [facility] Calculated R [place] 25 degrees [facility] Calculated T [place] 58 degrees [facility] P-R Interval 208 ms [facility] QRS Duration 88 ms [facility] QT Interval 444 ms [facility] QTC Calculation (Bazett) 479 ms [facility] Ventricular Rate 70 BPM [facility] UA DIP, URINE (POC)on 2022 BILIRUBIN UA (POCT) Small Abnormal Negative [facility] CLARITY UA (POCT) Clear [facility] COLOR UA (POCT) Dark yellow [facility] GLUCOSE UA (POCT) Negative Negative mg/dL [facility] HEMOGLOBIN/BLOOD UA (POCT) Trace-intact Abnormal Negative [facility] KETONE UA (POCT) 15 mg/dL Abnormal Negative mg/dL [facility] LEUKOCYTES UA (POCT) Negative Negative [facility] NITRITE UA (POCT) Negative Negative [facility] PH UA (POCT) 7.0 4.5 - 8.0 [facility] Protein Ql (U) 30 mg/dL Abnormal Negative mg/dL [facility] SPECIFIC GRAVITY UA (POCT) 1.020 1.005 - 1.030 [facility] UROBILINOGEN UA (POCT) 0.2 E.U./dL Normal E.U./dL [facility] UA DIP, URINE (POC)on 2021 BILIRUBIN UA (POCT) Negative Negative [facility] CLARITY UA (POCT) Clear [facility] COLOR UA (POCT) Dark yellow [facility] GLUCOSE UA (POCT) Negative Negative mg/dL [facility] HEMOGLOBIN/BLOOD UA (POCT) Trace-lysed Abnormal Negative [facility] KETONE UA (POCT) Negative Negative mg/dL [facility] LEUKOCYTES UA (POCT) Negative Negative [facility] NITRITE UA (POCT) Negative Negative [facility] PH UA (POCT) 7.0 4.5 - 8.0 [facility] Protein Ql (U) Trace Abnormal Negative mg/dL [facility] SPECIFIC GRAVITY UA (POCT) 1.020 1.005 - 1.030 [facility] UROBILINOGEN UA (POCT) 0.2 E.U./dL Normal E.U./dL [facility] STRESS TEST EXERCISEon 02-02 STRESS TEST EXERCISE NAME : ELSA PALACIO PID : [id number] : 1940 Gender : Male Race : ORD : [id number] Procedure Date : Feb 02 2019 13:37:39 [...] Rate Achieved Test Reason : CAMPOS Location [facility] Overread By : BELIA PHIPPS M.D. Edited By : Francia Hamm Referred By : ZEESHAN MAHMOOD Acquired by : [facility]ARCIA [facility] Telephone (CDLBME) ELSA PALACIO ([id number]) 1940 M Date Time Provider Department 01/30/19 [...] Fully Assessed Reason for Visit: Reminder Call [[id number]] Prescriptions as of 01/30/2019 Sig: DIVALPROEX ER [...] Encounter Status:Closed by BRENDA ZAYAS on 01/30/19 [facility] Vital Signs Date Time Vital Sign Value Performing Clinician Facility 03-03-2025 04:05-0500 SaO2% (BldA) [Mass fraction] 97 % [facility] Comment on above: Order Comment: Specimen Type: BLOOD SPEC IMEN Ordering Facility: [facility] Address: [address] [place] [address] Performed By: #### 3 016-3, 65386-4, HSTNT, 11855-7, 68138-2, 39000-8 #### [facility] CLIA [id number] [address] [place] [address] [place] 03-02-2025 20:10-0500 SaO2% (BldA) [Mass fraction] 97 % [facility] Comment on above: Order Comment: Specimen Type: BLOOD SPEC IMEN Ordering Facility: [facility] Address: [address] [place] [address] Performed By: #### 3 016-3, 42670-3, HSTNT, 53910-6, 44837-2, 31455-4 #### [facility] CLIA [id number] [address] 03-02-2025 14:08-0500 SaO2% (BldA) [Mass fraction] 100 % [facility] Comment on above: Order Comment: Specimen Type: BLOOD SPEC IMEN Ordering Facility: [facility] Address: [address] [place] [address] Performed By: #### 3 016-3, 41680-7, HSTNT, 57815-9, 00451-4, 35604-6 #### [facility] CLIA [id number] [address] [place] [id number] [facility] 12-17-2024 09:59-0400 Diastolic blood pressure 82 mm[Hg] Jeremias Damico MD Work Phone: [facility] 12-17-2024 09:59-0400 Systolic blood pressure 158 mm[Hg] Jeremias Damico MD Work Phone: [facility] 12-17-2024 09:53-0400 Body height 179 cm Jeremias Damico MD Work Phone: [facility] 12-17-2024 09:53-0400 Body mass index (BMI) [Ratio] 24.69 kg/m2 Jeremias Damico MD Work Phone: [facility] 12-17-2024 09:53-0400 Body weight 79.1 kg Jeremias Damico MD Work Phone: [facility] 12-17-2024 09:53-0400 Heart rate 61 /min Jeremias Damico MD Work Phone: [facility] 12-17-2024 09:53-0400 Respiratory rate 16 /min Jeremias Damico MD Work Phone: [facility] 12-17-2024 09:53-0400 SaO2% (BldA) [Mass fraction] 99 % Jeremias Damico MD Work Phone: [facility] 11-19-2024 11:09-0400 Body mass index (BMI) [Ratio] 25.12 kg/m2 Jeremias Damico MD Work Phone: [facility] 11-19-2024 11:09-0400 Body weight 78 kg Jeremias Damico MD Work Phone: [facility] 11-19-2024 11:09-0400 Diastolic blood pressure 98 mm[Hg] Jeremias Damico MD Work Phone: [facility] 11-19-2024 11:09-0400 Heart rate 74 /min Jeremias Damico MD Work Phone: [facility] 11-19-2024 11:09-0400 Respiratory rate 16 /min Jeremias Damico MD Work Phone: [facility] 11-19-2024 11:09-0400 Systolic blood pressure 142 mm[Hg] Jeremias Damico MD Work Phone: [facility] 10-13-2024 16:25-0400 Body mass index (BMI) [Ratio] 25.57 kg/m2 Jeremias Damico MD Work Phone: [facility] 10-13-2024 16:25-0400 Body weight 79.4 kg Jeremias Damico MD Work Phone: [facility] 10-13-2024 16:25-0400 Diastolic blood pressure 82 mm[Hg] Jeremias Damico MD Work Phone: [facility] 10-13-2024 16:25-0400 Heart rate 78 /min Jeremias Damico MD Work Phone: [facility] 10-13-2024 16:25-0400 Respiratory rate 16 /min Jeremias Damico MD Work Phone: [facility] 10-13-2024 16:25-0400 SaO2% (BldA) [Mass fraction] 99 % Jeremias Damico MD Work Phone: [facility] 10-13-2024 16:25-0400 Systolic blood pressure 140 mm[Hg] Jeremias Damico MD Work Phone: [facility] 09-04-2024 16:31-0400 Body mass index (BMI) [Ratio] 25.9 kg/m2 Jeremias Damico MD Work Phone: [facility] 09-04-2024 16:31-0400 Body weight 80.4 kg Jeremias Damico MD Work Phone: [facility] 09-04-2024 16:31-0400 Diastolic blood pressure 98 mm[Hg] Jeremias Damico MD Work Phone: [facility] 09-04-2024 16:31-0400 Heart rate 74 /min Jeremias Damico MD Work Phone: [facility] 09-04-2024 16:31-0400 Respiratory rate 16 /min Jeremias Damico MD Work Phone: [facility] 09-04-2024 16:31-0400 Systolic blood pressure 160 mm[Hg] Jeremias Damico MD Work Phone: [facility] 08-04-2024 09:17-0400 Body height 176.2 cm Snow Dobrowski SUGAR CANE [employer]OWER.OPTIONS ADVISOR Work Phone: [facility] 08-04-2024 09:17-0400 Body mass index (BMI) [Ratio] 25.93 kg/m2 Snow Dobrowski [employer].OPTIONS ADVISOR Work Phone: [facility] 08-04-2024 09:17-0400 Body weight 80.5 kg Snow Dobrowski [employer].OPTIONS ADVISOR Work Phone: [facility] 08-04-2024 09:17-0400 Diastolic blood pressure 77 mm[Hg] Snow Dobrowski [employer]GAR [employer]OWER.OPTIONS ADVISOR Work Phone: [facility] 08-04-2024 09:17-0400 Heart rate 55 /min Snow Dobrowski [employer]OWER.OPTIONS ADVISOR Work Phone: [facility] 08-04-2024 09:17-0400 Respiratory rate 20 /min Snow Dobrowski [employer]OWER.OPTIONS ADVISOR Work Phone: [facility] 08-04-2024 09:17-0400 Systolic blood pressure 147 mm[Hg] Snow Dobrowski SUGAR [employer]OWER.OPTIONS ADVISOR Work Phone: [facility] 01-30-2024 09:47-0400 Body mass index (BMI) [Ratio] 25.45 kg/m2 Snow Doramonwski [employer]OWER.OPTIONS ADVISOR Work Phone: [facility] 01-30-2024 09:47-0400 Body weight 79 kg Snow Doeverki [employer]OWER.OPTIONS ADVISOR Work Phone: [facility] 01-30-2024 09:47-0400 Diastolic blood pressure 73 mm[Hg] Snow Dobrowski SUGAR [employer]OWER.OPTIONS ADVISOR Work Phone: [facility] 01-30-2024 09:47-0400 Heart rate 63 /min Snow Doeverki [employer]OWER.OPTIONS ADVISOR Work Phone: [facility] 01-30-2024 09:47-0400 SaO2% (BldA) [Mass fraction] 97 % Snow Dogunner [employer]AR [employer]OWER.OPTIONS ADVISOR Work Phone: [facility] 01-30-2024 09:47-0400 Systolic blood pressure 155 mm[Hg] Snow Dobrowski SUGAR [employer]OWER.OPTIONS ADVISOR Work Phone: [facility] 01-24-2024 10:11-0400 Body mass index (BMI) [Ratio] 25.35 kg/m2 Zeeshan Mahmood [employer].OPTIONS ADVISOR Work Phone: [facility] 01-24-2024 10:11-0400 Body weight 78.7 kg Zeeshan Renaldo [employer].OPTIONS ADVISOR Work Phone: [facility] 01-24-2024 10:11-0400 Diastolic blood pressure 82 mm[Hg] Zeeshan Renaldo SU[employer].OPTIONS ADVISOR Work Phone: [facility] 01-24-2024 10:11-0400 Heart rate 63 /min Zeeshan Renaldo SUG[employer]E [employer]OWER.OPTIONS ADVISOR Work Phone: [facility] 01-24-2024 10:11-0400 Respiratory rate 16 /min Zeeshan Renaldo [employer]OWER.OPTIONS ADVISOR Work Phone: [facility] 01-24-2024 10:11-0400 SaO2% (BldA) [Mass fraction] 98 % Zeeshan Mahmood APRN.OPTIONS ADVISOR Work Phone: [facility] 01-24-2024 10:11-0400 Systolic blood pressure 138 mm[Hg] Zeeshan Mahmood APRN.OPTIONS ADVISOR Work Phone: [facility] 12-31-2023 15:27-0400 Body height 176.2 cm Shaq Bishop PA-C Work Phone: [facility] 12-31-2023 15:27-0400 Body mass index (BMI) [Ratio] 25.42 kg/m2 Shaq Bishop PA-C Work Phone: [facility] 12-31-2023 15:27-0400 Body temperature 97.5 [degF] Shaq Bishop PA-C Work Phone: [facility] 12-31-2023 15:27-0400 Body weight 78.93 kg Shaq Bishop PA-C Work Phone: [facility] 12-31-2023 15:27-0400 Diastolic blood pressure 80 mm[Hg] Shaq Bishop PA-C Work Phone: [facility] 12-31-2023 15:27-0400 Heart rate 70 /min Shaq Bishop PA-C Work Phone: [facility] 12-31-2023 15:27-0400 Respiratory rate 16 /min Shaq Bishop PA-C Work Phone: [facility] 12-31-2023 15:27-0400 SaO2% (BldA) [Mass fraction] 97 % Shaq Bishop PA-C Work Phone: [facility] 12-31-2023 15:27-0400 Systolic blood pressure 118 mm[Hg] Shaq Bishop PA-C Work Phone: [facility] 07-14-2023 10:49-0400 Respiratory rate 16 /min [facility] 07-14-2023 08:26-0400 Body height 177.8 cm [facility] 07-14-2023 08:26-0400 Body mass index (BMI) [Ratio] 25 kg/m2 [facility] 07-14-2023 08:26-0400 Body temperature 96.6 [degF] [facility] 07-14-2023 [id number] Body weight 78.92 kg [facility] 07-14-2023 08:26-0400 Diastolic blood pressure 90 mm[Hg] [facility] 07-14-2023 08:26-0400 Heart rate 73 /min [facility] 07-14-2023 08:26-0400 SaO2% (BldA) [Mass fraction] 98 % [facility] 07-14-2023 08:26-0400 Systolic blood pressure 159 mm[Hg] [facility] 03-27-2023 09:06-0500 Body temperature 97.2 [degF] Susan Donis APRN.OPTIONS ADVISOR Work Phone: [facility] 03-27-2023 09:06-0500 Body weight 80.29 kg Susan Donis APRN.OPTIONS ADVISOR Work Phone: [facility] 03-27-2023 09:06-0500 Diastolic blood pressure 76 mm[Hg] Susan Donis APRN.OPTIONS ADVISOR Work Phone: [facility] 03-27-2023 09:06-0500 Heart rate 72 /min Susan Donis APRN.OPTIONS ADVISOR Work Phone: [facility] 03-27-2023 09:06-0500 Respiratory rate 16 /min Susan Donis APRN.OPTIONS ADVISOR Work Phone: [facility] 03-27-2023 09:06-0500 SaO2% (BldA) [Mass fraction] 98 % Susan Donis APRN.OPTIONS ADVISOR Work Phone: [facility] 03-27-2023 09:06-0500 Systolic blood pressure 122 mm[Hg] Susan Donis APRN.OPTIONS ADVISOR Work Phone: [facility] 02-01-2023 12:44-0400 Body weight 79.74 kg Zeeshan Renaldo [employer]E [employer]OWER.OPTIONS ADVISOR Work Phone: [facility] 02-01-2023 12:44-0400 Diastolic blood pressure 80 mm[Hg] Zeeshan Renaldo SU[employer]E [employer]OWER.OPTIONS ADVISOR Work Phone: [facility] 02-01-2023 12:44-0400 Heart rate 70 /min Zeeshan Renaldo SUGAR [employer]E GROWER.OPTIONS ADVISOR Work Phone: [facility] 02-01-2023 12:44-0400 Respiratory rate 16 /min Zeeshan Renaldo SUGAR [employer]E [employer]OWER.OPTIONS ADVISOR Work Phone: [facility] 02-01-2023 12:44-0400 SaO2% (BldA) [Mass fraction] 98 % Zeeshan Renaldo [employer]OWER.OPTIONS ADVISOR Work Phone: [facility] 02-01-2023 12:44-0400 Systolic blood pressure 134 mm[Hg] Zeeshan Renaldo SUGAR CANE GROWER.OPTIONS ADVISOR Work Phone: [facility] 01-22-2023 10:01-0400 Body height 177.8 cm Zeeshan Renaldo SUGAR CANE GROWER.OPTIONS ADVISOR Work Phone: [facility] 01-22-2023 10:01-0400 Body temperature 97.5 [degF] Zeeshan Renaldo SUG[employer] GROWER.OPTIONS ADVISOR Work Phone: [facility] 01-22-2023 10:01-0400 Body weight 78.83 kg Zeeshan Renaldo SUG[employer] GROWER.OPTIONS ADVISOR Work Phone: [facility] 01-22-2023 10:01-0400 Diastolic blood pressure 78 mm[Hg] Zeeshan Renaldo SUGAR [employer]E GROWER.OPTIONS ADVISOR Work Phone: [facility] 01-22-2023 10:01-0400 Heart rate 60 /min Zeeshan Renaldo SUGAR [employer]E GROWER.OPTIONS ADVISOR Work Phone: [facility] 01-22-2023 10:01-0400 Respiratory rate 16 /min Zeeshan Renaldo SUGAR [employer]E GROWER.OPTIONS ADVISOR Work Phone: [facility] 01-22-2023 10:01-0400 SaO2% (BldA) [Mass fraction] 99 % Zeeshan Renaldo SUG[employer] GROWER.OPTIONS ADVISOR Work Phone: [facility] 01-22-2023 10:01-0400 Systolic blood pressure 130 mm[Hg] Zeeshan Renaldo SUGAR CANE GROWER.OPTIONS ADVISOR Work Phone: [facility] 01-21-2023 12:44-0400 Body height 177.8 cm Snow Dobrowski SUGAR [employer]E GROWER.OPTIONS ADVISOR Work Phone: [facility] 01-21-2023 12:44-0400 Body weight 74.84 kg Snow Dobrowski SUGAR [employer]E GROWER.OPTIONS ADVISOR Work Phone: [facility] 01-21-2023 12:44-0400 Diastolic blood pressure 72 mm[Hg] Snow Dobrowski SUGAR CANE GROWER.OPTIONS ADVISOR Work Phone: [facility] 01-21-2023 12:44-0400 Heart rate 69 /min Snow Dobrowski SUGAR CANE GROWER.OPTIONS ADVISOR Work Phone: [facility] 01-21-2023 12:44-0400 Respiratory rate 14 /min Snow Dobrowski SUGAR [employer]E GROWER.OPTIONS ADVISOR Work Phone: [facility] 01-21-2023 12:44-0400 SaO2% (BldA) [Mass fraction] 99 % Snow Dobrowski SUG[employer] GROWER.OPTIONS ADVISOR Work Phone: [facility] 01-21-2023 12:44-0400 Systolic blood pressure 144 mm[Hg] Snow Dobrowski SUG[employer]OWER.OPTIONS ADVISOR Work Phone: [facility] 05-01-2022 09:58-0500 Body height 177.8 cm Shaq Bishop PA-C Work Phone: [facility] 05-01-2022 09:58-0500 Body temperature 97 [degF] Shaq Bishop PA-C Work Phone: [facility] 05-01-2022 09:58-0500 Body weight 75.75 kg Shaq Bishop PA-C Work Phone: [facility] 05-01-2022 09:58-0500 Diastolic blood pressure 88 mm[Hg] Shaq Bishop PA-C Work Phone: [facility] 05-01-2022 09:58-0500 Heart rate 70 /min Shaq Bishop PA-C Work Phone: [facility] 05-01-2022 09:58-0500 Respiratory rate 12 /min Shaq Bishop PA-C Work Phone: [facility] 05-01-2022 09:58-0500 SaO2% (BldA) [Mass fraction] 98 % Shaq Bishop PA-C Work Phone: [facility] 05-01-2022 09:58-0500 Systolic blood pressure 140 mm[Hg] Shaq Bishop PA-C Work Phone: [facility] 02-16-2022 10:29-0400 Body height 177.8 cm Snow Dobrowski SUGAR [employer]E GROWER.OPTIONS ADVISOR Work Phone: [facility] 02-16-2022 10:29-0400 Body weight 73.03 kg Snow Dobrowski SUGAR CANE GROWER.OPTIONS ADVISOR Work Phone: [facility] 02-16-2022 10:29-0400 Diastolic blood pressure 73 mm[Hg] Snow Dobrowski SUGAR CANE GROWER.OPTIONS ADVISOR Work Phone: [facility] 02-16-2022 10:29-0400 Heart rate 59 /min Snow Dobrowski SUGAR CANE GROWER.OPTIONS ADVISOR Work Phone: [facility] 02-16-2022 10:29-0400 Systolic blood pressure 148 mm[Hg] Snow Dobrowski SUGAR CANE GROWER.OPTIONS ADVISOR Work Phone: [facility] 01-30-2022 11:20-0400 Body height 177.8 cm Shaq Bishop PA-C Work Phone: [facility] 01-30-2022 11:20-0400 Body temperature 97.11 [degF] Shaq Bishop PA-C Work Phone: [facility] 01-30-2022 11:20-0400 Body weight 77.56 kg Shaq Bishop PA-C Work Phone: [facility] 01-30-2022 11:20-0400 Diastolic blood pressure 98 mm[Hg] Shaq Bishop PA-C Work Phone: [facility] 01-30-2022 11:20-0400 Heart rate 64 /min Shaq Bishop PA-C Work Phone: [facility] 01-30-2022 11:20-0400 Respiratory rate 14 /min Shaq Bishop PA-C Work Phone: [facility] 01-30-2022 11:20-0400 SaO2% (BldA) [Mass fraction] 99 % Shaq Bishop PA-C Work Phone: [facility] 01-30-2022 11:20-0400 Systolic blood pressure 154 mm[Hg] Shaq Bishop PA-C Work Phone: [facility] 01-19-2022 13:09-0400 Body height 176.5 cm Zeeshan Mahmood SU[employer]OWER.OPTIONS ADVISOR Work Phone: [facility] 01-19-2022 13:09-0400 Body temperature 96.6 [degF] Zeeshan Renaldo SUG[employer]E GROWER.OPTIONS ADVISOR Work Phone: [facility] 01-19-2022 13:09-0400 Body weight 78.7 kg Zeeshan Renaldo SU[employer] GROWER.OPTIONS ADVISOR Work Phone: [facility] 01-19-2022 13:09-0400 Diastolic blood pressure 84 mm[Hg] Zeeshan Renaldo SUGAR [employer]E GROWER.OPTIONS ADVISOR Work Phone: [facility] 01-19-2022 13:09-0400 Heart rate 60 /min Zeeshan Renaldo SU[employer]E GROWER.OPTIONS ADVISOR Work Phone: [facility] 01-19-2022 13:09-0400 Respiratory rate 16 /min Zeeshan Renaldo SUG[employer]E GROWER.OPTIONS ADVISOR Work Phone: [facility] 01-19-2022 13: Systolic blood pressure 134 mm[Hg] Zeeshan Mahmood APRN.OPTIONS ADVISOR Work Phone: [facility] Encounters Encounter Date Encounter Type Care Provider Facility Start: 02-24-2025 Evaluation and manag ement of inpatient SHAWN CHAU Facility:[facility] Start: 02-24-20[facility] Start: 02-24-2025 ambulatory Shawn Chau Facility :[facility] Start: 02-24-2025 End: 02-24-2025 Evaluation and management of inpatient Anibal Bellorohitnaresh Facility:[facility] Start: 02-16-2025 End: 02-16-2025 [employer] Facility:[facility] Start: 12-22-2024 End: 12-22-2024 Patient encounter procedure Shaq Bishop PA-C Work Phone: Urology Comment on above: 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); Screening for genitourinary condition Start: 12-22-2024 End: 12-22-2024 [employer] Facility:[facility] Start: 12-17-2024 End: 12-17-2024 [employer] Facility:[facility] Start: 12-17-2024 End: 12-17-2024 Patient encounter procedure Jeremias Damico MD Work Phone: [facility] Comment on above: Acquired hypothyroid ism (Primary Dx); Primary hypertension; Encounter for Medicare annual wellness exam; Episodic cluster headache, not intractable; Benign prostatic hyperplasia without lower urinary tract symptoms Start: 12-14-2024 End: 12-14-2024 [employer] Facility:[facility] Start: 11-19-2024 End: 11-19-2024 Office outpatient visit 25 minutes Jeremias Damico MD Work Phone: [facility] Comment on above: Acquired hypothyroid ism (Primary Dx); Primary hypertension Start: 11-19-2024 End: 11-19-2024 [employer] Facility:[facility] Start: 10-13-2024 End: 10-13-2024 Office outpatient visit 15 minutes Jeremias Damico MD Work Phone: [facility] Comment on above: Primary hypertension (Primary Dx) Start: 10-13-2024 End: 10-13-2024 ambulatory [facility] Facility:[facility] Start: 09-04-2024 End: 09-04-2024 Office outpatient visit 25 minutes Jeremias Damico MD Work Phone: [facility] Comment on above: Primary hypertension (Primary Dx) Start: 09-04-2024 End: 09-04-2024 ambulatory [facility] Facility:[facility] Start: 08-27-2024 End: 09-01-2024 ambulatory Zeeshan Mahmood APRN.OPTIONS ADVISOR Work Phone: [facility] Comment on above: Blood pressure Start: 08-18-2024 End: 08-18-2024 ambulatory Sarmad [place] RN Work Phone: [facility] [employer] Comment on above: Population Health Na vigation Outreach ([facility] ) Start: 08-04-2024 End: 08-04-2024 [employer] Facility:[facility] Start: 08-04-2024 End: 08-04-2024 Office outpatient visit 15 minutes Snow Brooks APRN.OPTIONS ADVISOR Work Phone: Neurology Comment on above: Episodic cluster hea dache, not intractable (Primary Dx) Start: 01-30-2024 End: 01-30-2024 Patient encounter procedure Snow Brooks APRN.OPTIONS ADVISOR Work Phone: Neurology Comment on above: Episodic cluster hea dache, not intractable (Primary Dx) Start: 01-24-2024 End: 01-24-2024 Patient encounter procedure Zeeshan Mahmood APRN.OPTIONS ADVISOR Work Phone: [facility] Comment on above: Medicare annual well ness visit, subsequent (Primary Dx); Acquired hypothyroidism; Episodic cluster headache, not intractable; Encounter for immunization; Screening for depression; Encounter for screening examination for other mental health and behavioral disorders Start: 01-21-2024 End: 01-21-2024 Nursing evaluation of patient and report Mi Nurse Work Phone: [facility] Comment on above: Episodic cluster hea dache, not intractable Start: 01-09-2024 End: 01-14-2024 Refill Shaq Bishop PA-C Work Phone: Urology Comment on above: Refill Request Start: 01-01-2024 End: 01-03-2024 Patient encounter procedure Jeremias Damico MD Work Phone: [facility] Start: 01-01-2024 End: 01-03-2024 Telephone encounter Jeremias Damico MD Work Phone: [facility] Comment on above: Orders Start: 12-31-2023 End: 12-31-2023 Patient encounter procedure Shaq Bishop PA-C Work Phone: Urology Comment on above: 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) Start: 12-06-2023 End: 12-09-2023 Telephone encounter Snow Brooks APRN.OPTIONS ADVISOR Work Phone: Neurology Comment on above: Orders Start: 09-02-2023 Refill Snow zafar APRN.OPTIONS ADVISOR Work Phone: Neurology Comment on above: Refill Request Start: 07-14-2023 End: 07-14-2023 Emergency department patient visit [facility] Work Phone: Start: 03-27-2023 End: 03-27-2023 Patient encounter procedure Susan Donis APRN.OPTIONS ADVISOR Work Phone: [facility] Comment on above: URI, acute (Primary Dx) Start: 02-18-2023 ambulatory Zeeshan MOE RN.OPTIONS ADVISOR Work Phone: [facility] Comment on above: This is part two Start: 02-01-2023 End: 02-01-2023 Office outpatient visit 15 minutes Zeeshan Mahmood APRN.OPTIONS ADVISOR Work Phone: [facility] Comment on above: Difficulty sleeping (Primary Dx) Start: 01-24-2023 End: 01-24-2023 Nursing evaluation of patient and report Mi Nurse Work Phone: [facility] Comment on above: Episodic cluster hea dache, not intractable (Primary Dx) Start: 01-22-2023 End: 01-22-2023 Patient encounter procedure Zeeshan Renaldo SU[employer]AR [employer]E [employer]OWER.OPTIONS ADVISOR Work Phone: [facility] Comment on above: Medicare annual well ness visit, subsequent (Primary Dx); Encounter for immunization; Acquired hypothyroidism; Episodic cluster headache, not intractable; BPH with obstruction/lower urinary tract symptoms Start: 01-21-2023 End: 01-21-2023 Patient encounter procedure Snow Brooks [employer]OWER.OPTIONS ADVISOR Work Phone: Neurology Comment on above: Episodic cluster hea dache, not intractable (Primary Dx) Start: 12-27-2022 Telephone encounter Snow Buckner APRN.OPTIONS ADVISOR Work Phone: Neurology Comment on above: Orders (Labs) Start: 06-06-2022 ambulatory Snow Nimco zafar [employer].OPTIONS ADVISOR Work Phone: Neurology Comment on above: Increase [...] Request Start: 02-16-2022 ambulatory Snow Nimco zafar [employer]OWER.OPTIONS ADVISOR Work Phone: Neurology Comment on above: EKG Start: 02-16-2022 End: 02-16-2022 Patient encounter procedure Snow Brooks [employer]OWER.OPTIONS ADVISOR Work Phone: Neurology Comment on above: Episodic cluster hea dache, not intractable Start: 02-15-2022 End: 02-15-2022 Nursing evaluation of patient and report Mi Nurse Work Phone: [facility] [place] Comment on above: Episodic cluster hea dache, not intractable Start: 01-30-2022 End: 01-30-2022 Patient encounter procedure Shaq Bishop PA-C Work Phone: Urology Comment on above: Post-void dribbling (Primary Dx); BPH with obstruction/lower urinary tract symptoms Start: 01-19-2022 End: 01-19-2022 Patient encounter procedure Zeeshan Mahmood APRN.OPTIONS ADVISOR Work Phone: [facility] [place] Comment on above: Medicare annual well ness visit, subsequent (Primary Dx); Need for influenza vaccination; Immunization due; Episodic cluster headache, not intractable; Acquired hypothyroidism; BPH with obstruction/lower urinary tract symptoms Start: 01-04-2022 Patient encounter status Jeremias Damico MD Work Phone: [address] [place] [address] Start: 01-04-2022 Telephone encounter Jeremias wagoner MD Work Phone: [address] [place] [address] Comment on above: Orders Orders (Lab work) Start: 10-09-2021 Refill Jeremias alex MD Work Phone: [facility] Comment on above: Refill Request Start: 08-29-2021 ambulatory Snow zafar APRN.OPTIONS ADVISOR Work Phone: Neurology Comment on above: Verapamil 80mg Procedures Date Procedure Procedure Detail Performing Clinician Start: 03-01-2025 Antibody screen SHAWN CHAU Comment on above: Order Comment: Speci men Type: BLOOD SPECIMEN Ordering Facility: [facility] Address: [address] [place] [address] Performed By: #### 3 016-3, 32940-1, HSTNT, 47658-5, 77365-9, 11445-8 #### [facility] CLIA [id number] [address] [place] Start: 02-25-2025 Antibody screen SHAWN CHAU Comment on above: Order Comment: Speci men Type: BLOOD SPECIMEN Ordering Facility: [facility] Address: [facility] [place] [address] Performed By: #### 3 016-3, 59437-4, HSTNT, 61107-2, 75532-4, 21234-9 #### [facility] CLIA [id number] [address] [place] Start: 12-22-2024 Urnls dip stick/tabl et rgnt auto w/o microscopy Shaq Bishop PA-C Work Phone: Start: 01-24-2024 PFIZER-BIONTECH COVI D-19 VACCINE AGE 12+ YR (COMIRNATY) Zeeshan Mahmood APRN.OPTIONS ADVISOR Work Phone: Start: 01-24-2024 Adult depression scr eening assessment Zeeshan Mahmood APRN.OPTIONS ADVISOR Work Phone: Start: 01-21-2024 Ecg routine ecg w/le ast 12 lds i&r only [facility] Provider Start: 12-31-2023 Urnls dip stick/tabl et rgnt auto w/o microscopy Shaq Bishop PA-C Work Phone: Start: 01-24-2023 Ecg routine ecg w/le ast 12 lds i&r only [facility] Provider Start: 01-22-2023 PFIZER-BIONTECH COVI D-19 VACCINE (2022- SEASON) AGE 12+ YR Zeeshan Mahmood APRN.OPTIONS ADVISOR Work Phone: Start: 01-22-2023 INFLUENZA VACCINE, P RSV FREE, AGE 65+ YR, HIGH DOSE, QUADRIVALENT (FLUZONE HIGH-DOSE) Zeeshan Mahmood APRN.OPTIONS ADVISOR Work Phone: Start: 05-01-2022 Urnls dip stick/tabl et rgnt auto w/o microscopy Shaq Bishop PA-C Work Phone: Start: 01-30-2022 Urnls dip stick/tabl et rgnt auto w/o microscopy Shaq Bishop PA-C Work Phone: Start: 01-19-2022 INFLUENZA SEASONAL QUADRIVALENT HIGH DOSE AGE 65+ Zeeshan Mahmood [employer]OWER.OPTIONS ADVISOR Work Phone: Start: 01-19-2022 PFIZER-BIONTSpurfly COVI D-19 BIVALENT BOOSTER VACCINE, AGE 12+ YR Zeeshan Mahmood SUGAR CANE GROWER.RUTHIE Work Phone: Plan of Treatment Date Care Activity Detail Author Start: 12-15-2027 Diabetes Screening Diabetes Screenin g [facility] Start: 07-31-2027 Urine microalbumin profile [facility] Start: 01-19-2027 Diabetes Screening Diabetes Screenin g [facility] Start: 01-15-2026 Diabetes Screening Diabetes Screenin g [facility] Start: 01-04-2026 End: 01-04-2026 Patient encounter procedure 01/04/2026 9:00 AM EDT Office Visit Urology [address] [place], [place] [id number] Shaq Bishop PA-C [address] [place] [address] yearly Urology Comment on above: yearly Start: 02-16-2025 End: 02-16-2025 Patient encounter procedure 02/16/2025 10:00 AM EDT Office Visit [facility] [address] [place], [place] [id number] Jeremias Damico MD [address] [place], [place] [id number] 2 month f/u--Flu Shot/Covid Shot [facility] Comment on above: 2 month f/u--Flu Anna t/Covid Shot Start: 01-29-2025 End: 01-29-2025 Patient encounter procedure 01/29/2025 8:40 AM EDT Office Visit [facility] [address] [place], [place] [id number] Zeeshan Mahmood APRN.OPTIONS ADVISOR [address] [place], [place] [id number] Medicare wellness [facility] [place] Comment on above: Medicare wellness Start: 01-23-2025 Anxiety Screening Anxiety Screening [facility] Start: 01-23-2025 Depression Screening Depression Scre ening [facility] Start: 01-09-2025 DIABETES SCREEN DIABETES SCREEN [facility] Start: 12-21-2024 End: 03-22-2025 CBC panel - Blood by Automated count COMPLETE BLOOD COUNT Lab Routine Primary hypertension Acquired hypothyroidism Expected: 12/21/2024 (Approximate), Expires: 03/22/2025 [facility] Comment on above: Expected: 12/21/2024 (Approximate), Expires: 03/22/2025 Start: 12-21-2024 End: 03-22-2025 Comprehensive metabolic 2000 panel - Serum or Plasma COMPREHENSIVE METABOLIC PANEL Lab Routine Primary hypertension Expected: 12/21/2024 (Approximate), Expires: 03/22/2025 [facility] Comment on above: Expected: 12/21/2024 (Approximate), Expires: 03/22/2025 Start: 12-21-2024 Influenza vaccination Influenza Vacc ine (#1) [facility] Start: 12-21-2024 End: 03-22-2025 Lipid 1996 panel - Serum or Plasma LIPID PANEL, FASTING Lab Routine Primary hypertension Expected: 12/21/2024 (Approximate), Expires: 03/22/2025 [facility] Comment on above: Expected: 12/21/2024 (Approximate), Expires: 03/22/2025 Start: 12-21-2024 End: 03-22-2025 Thyrotropin [Units/volume] in Serum or Plasma THYROID STIMULATING HORMONE Lab Routine Acquired hypothyroidism Expected: 12/21/2024 (Approximate), Expires: 03/22/2025 [facility] Work Phone: Comment on above: Expected: 12/21/2024 (Approximate), Expires: 03/22/2025 Start: 12-17-2024 End: 12-17-2024 Patient encounter procedure 12/17/2024 10:00 AM EDT Office Visit [facility] [place] [address] [place] [address] Jeremias Damico MD [address] [facility] [address] medicare wellness [facility] Comment on above: medicare wellness Start: 11-19-2024 End: 11-19-2024 Patient encounter procedure 11/19/2024 11:20 AM EDT Office Visit [facility] [place] [address] [facility] [place] [address] Jeremias Damico MD [address] [facility] [place] [address] 1 month f/u BP [facility] Comment on above: 1 month f/u BP Start: 10-13-2024 End: 10-13-2024 Patient encounter procedure 10/13/2024 4:40 PM EDT Office Visit [facility] [address] [facility] [place] [address] Jeremias Damico MD [address] [facility] [place] [address] 1 month follow up [facility] Comment on above: 1 month follow up Start: 09-04-2024 End: 09-04-2024 Patient encounter procedure 09/04/2024 4:40 PM EDT Office Visit [facility] [address] [facility] [place] [address] Jeremias Damico MD [address] [facility] [place] [address] 6 month f/u Bp check [facility] Comment on above: 6 month f/u Bp check Start: 07-24-2024 Covid-19 Vaccine ( season) Covid-19 Vaccine ( season) [facility] Start: 04-22-2024 Advance Directive Discussion Advance Directive Discussion [facility] Start: 04-22-2024 Medicare Advantage Annual Wellness Visit Medicare Advantage Annual Wellness Visit [facility] Start: 02-28-2024 DIABETES SCREEN DIABETES SCREEN [facility] Start: 01-30-2024 End: 01-30-2024 Patient encounter procedure 01/30/2024 10:00 AM EDT Office Visit Neurology [address] [place] [address] Snow Brooks, SUGAR CANE GROWER.OPTIONS ADVISOR [address] [place] [address] headache Neurology Comment on above: headache Start: 01-24-2024 End: 01-24-2024 Patient encounter procedure [facility] [place] Comment on above: Medicare Wellness Start: 01-21-2024 End: 01-21-2024 Nursing evaluation of patient and report 01/21/2024 8:45 AM EDT Nurse Visit [facility] [place] [address] [place] [address] Nurse, [place] [address] [place] [address] ekg [facility] [place] Comment on above: ekg Start: 01-20-2024 End: 01-20-2024 ambulatory 01/20/2024 7:00 AM EDT [facility] [address] [place] [address] [facility] Start: 01-01-2024 End: 04-01-2024 CBC W Auto Differential panel - Blood COMPLETE BLOOD COUNT AND DIFFERENTIAL Lab Routine Medicare annual wellness visit, subsequent Expected: 01/01/2024, Expires: 04/01/2024 [facility] Comment on above: Expected: 01/01/2024 , Expires: 04/01/2024 Start: 01-01-2024 End: 04-01-2024 Comprehensive metabolic 2000 panel - Serum or Plasma COMPREHENSIVE METABOLIC PANEL Lab Routine Medicare annual wellness visit, subsequent Expected: 01/01/2024, Expires: 04/01/2024 [facility] Comment on above: Expected: 01/01/2024 , Expires: 04/01/2024 Start: 01-01-2024 End: 04-01-2024 Lipid 1996 panel - Serum or Plasma LIPID PANEL BASIC Lab Routine Medicare annual wellness visit, subsequent Expected: 01/01/2024, Expires: 04/01/2024 [facility] Work Phone: Comment on above: Expected: 01/01/2024 , Expires: 04/01/2024 Start: 01-01-2024 End: 04-01-2024 Thyrotropin [Units/volume] in Serum or Plasma THYROID STIMULATING HORMONE Lab Routine Acquired hypothyroidism Expected: 01/01/2024, Expires: 04/01/2024 [facility] Comment on above: Expected: 01/01/2024 , Expires: 04/01/2024 Start: 12-22-2023 Covid-19 Vaccine () Covid-19 Vaccine () [facility] Start: 12-22-2023 Covid-19 Vaccine () Covid-19 Vaccine () [facility] Start: 12-22-2023 Covid-19 Vaccine () Covid-19 Vaccine () [facility] Start: 12-22-2023 Influenza vaccination Influenza Vacc ine (#1) [facility] Start: 07-14-2023 [facility] Start: 05-25-2023 Covid-19 Vaccine (6 - Moderna series) Covid-19 Vaccine (6 - Moderna series) [facility] Start: 05-25-2023 Covid-19 Vaccine () Covid-19 Vaccine () [facility] Start: 04-22-2023 Advance Directive Discussion Advance Directive Discussion [facility] Start: 04-22-2023 Behavioral Health Screening Behavioral Health Screening [facility] Start: 03-27-2023 End: 04-10-2023 COVID & INFLUENZA A/B & RSV NAAT, ROUTINE [facility] Work Phone: Comment on above: Expected: 03/27/2023 , Expires: 04/10/2023 Start: 12-21-2022 Influenza vaccination C [facility] Start: 05-21-2022 COVID-19 VACCINE (6 - Moderna series) COVID-19 VACCINE (6 - Moderna series) [facility] Start: 04-22-2022 ADVANCE DIRECTIVE DISCUSSION ADVANCE DIRECTIVE DISCUSSION [facility] Start: 04-22-2022 DEPRESSION ASSESSMENT DEPRESSION ASS ESSMENT [facility] Start: 03-21-2022 End: 05-21-2022 Thyrotropin [Units/volume] in Serum or Plasma TSH BLD Lab Routine Acquired hypothyroidism Expected: 03/21/2022 (Approximate), Expires: 05/21/2022 [facility] Work Phone: Comment on above: Expected: 03/21/2022 (Approximate), Expires: 05/21/2022 Start: 01-04-2022 End: 03-06-2022 CBC W Auto Differential panel - Blood CBC + DIFF Lab Routine Wellness examination Expected: 01/04/2022, Expires: 03/06/2022 [facility] Work Phone: Comment on above: Expected: 01/04/2022 , Expires: 03/06/2022 Start: 01-04-2022 End: 03-06-2022 Comprehensive metabolic 2000 panel - Serum or Plasma COMP METABOLIC PANEL Lab Routine Wellness examination Expected: 01/04/2022, Expires: 03/06/2022 [facility] Work Phone: Comment on above: Expected: 01/04/2022 , Expires: 03/06/2022 Start: 01-04-2022 End: 03-06-2022 Lipid 1996 panel - Serum or Plasma LIPID PANEL BASIC Lab Routine Wellness examination Expected: 01/04/2022, Expires: 03/06/2022 [facility] Work Phone: Comment on above: Expected: 01/04/2022 , Expires: 03/06/2022 Start: 01-04-2022 End: 03-06-2022 Thyrotropin [Units/volume] in Serum or Plasma TSH BLD Lab Routine Other specified hypothyroidism Expected: 01/04/2022, Expires: 03/06/2022 [facility] Work Phone: Comment on above: Expected: 01/04/2022 , Expires: 03/06/2022 Start: 12-21-2021 Influenza vaccination INFLUENZA (#1) [facility] Start: 06-24-2021 COVID-19 VACCINE (4 - Booster for Moderna series) COVID-19 VACCINE (4 - Booster for Moderna series) [facility] Start: 04-22-2021 ADVANCE DIRECTIVE DISCUSSION ADVANCE DIRECTIVE DISCUSSION [facility] Start: 02-08-2015 RSV Vaccine (1 - 1-d ose 75+ series) RSV Vaccine (1 - 1-dose 75+ series) [facility] Start: 2000 RSV Vaccine (1 - 1-d ose 60+ series) RSV Vaccine (1 - 1-dose 60+ series) [facility] Start: 02-08-1958 Anxiety Screening Anxiety Screening [facility] Start: 02-08-1958 Depression Screening Depression Scre ening [facility] End: 01-08-2023 ECG COMPLETE ECG COMPLETE ECG Routine Episodic cluster headache, not intractable 1 Occurrences starting 01/08/2022 until 01/08/2023 [facility] Work Phone: Comment on above: 1 Occurrences starti ng 01/08/2022 until 01/08/2023 End: 01-22-2024 ECG COMPLETE ECG COMPLETE ECG Routine Episodic cluster headache, not intractable 1 Occurrences starting 01/21/2023 until 01/22/2024 [facility] Work Phone: Comment on above: 1 Occurrences starti ng 01/21/2023 until 01/22/2024 End: 12-08-2024 ECG COMPLETE ECG COMPLETE ECG Routine Episodic cluster headache, not intractable 1 Occurrences starting 12/09/2023 until 12/08/2024 [facility] Work Phone: Comment on above: 1 Occurrences starti ng 12/09/2023 until 12/08/2024 ECG COMPLETE ECG COMPLETE ECG 01/21/2024 9:00 AM EDT [facility] Patient Education ED Epistaxis (Adult) [facility] Work Phone: Patient referral [facility] Work Phone: POST VOID RESIDUAL POST VOID RES IDUAL Procedures 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 Ordered: 01/30/2022 [facility] Work Phone: Comment on above: Ordered: 01/30/2022 POST VOID RESIDUAL POST VOID RES IDUAL Procedures 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 Ordered: 05/01/2022 [facility] Work Phone: Comment on above: Ordered: 05/01/2022 POST VOID RESIDUAL POST VOID RES IDUAL Procedures Routine BPH without obstruction/lower urinary tract symptoms Ordered: 12/31/2023 [facility] Work Phone: Comment on above: Ordered: 12/31/2023 POST VOID RESIDUAL POST VOID RES IDUAL Procedures Routine BPH without obstruction/lower urinary tract symptoms Screening for genitourinary condition Ordered: 12/22/2024 [facility] Work Phone: Comment on above: Ordered: 12/22/2024 [facility] Immunizations Immunization Date Immunization Notes Care Provider [facility] 01-24-2024 COVID-19 vaccine, ag e 12+ yr (PFIZER-BIONTECH COMIRNATY) Zeeshan Mahmood APRN.OPTIONS ADVISOR Work Phone: [facility] 01-24-2024 influenza, high dose seasonal, preservative-free Zeeshan Mahmood APRN.OPTIONS ADVISOR Work Phone: [facility] 01-24-2024 influenza virus vacc ine, unspecified formulation Jeremias Damico MD Work Phone: [facility] 01-22-2023 COVID-19 vaccine, ag e 12+ yr, season (PFIZER-BIONTECH) Zeeshan Mahmood APRN.OPTIONS ADVISOR Work Phone: [facility] 01-22-2023 influenza (HD-IIV4) vaccine, age 65+ yr, high dose, quadrivalent, PF (FLUZONE HIGH-DOSE) Zeeshan Mahmood SUGAR CANE GROWER.OPTIONS ADVISOR Work Phone: [facility] 01-22-2023 influenza virus vacc ine, unspecified formulation Snow Brooks SUGAR CANE GROWER.OPTIONS ADVISOR Work Phone: [facility] 01-19-2022 COVID-19 booster vaccine, age 12+ yr, bivalent (PFIZER-BIONTECH) Zeeshan Mahmood APRN.OPTIONS ADVISOR Work Phone: [facility] 01-19-2022 influenza, high-dose , quadrivalent vaccine (FLUZONE HIGH DOSE QUADRIVALENT) Zeeshan Mahmood SUGAR CANE GROWER.OPTIONS ADVISOR Work Phone: [facility] 01-19-2022 influenza virus vacc ine, unspecified formulation Snow Brooks SUGAR CANE GROWER.OPTIONS ADVISOR Work Phone: [facility] 02-24-2021 COVID-19 vaccine, fu ll dose (MODERNA) Snow Brooks SUGAR CANE GROWER.OPTIONS ADVISOR Work Phone: [facility] 01-27-2021 influenza, high-dose , quadrivalent vaccine (FLUZONE HIGH DOSE QUADRIVALENT) Snow Brooks SUGAR CANE GROWER.OPTIONS ADVISOR Work Phone: [facility] 06-16-2020 COVID-19 vaccine, fu ll dose (MODERNA) Snow Brooks SUGAR CANE GROWER.OPTIONS ADVISOR Work Phone: [facility] 05-19-2020 COVID-19 vaccine, fu ll dose (MODERNA) Snwo Brooks SUGAR CANE GROWER.OPTIONS ADVISOR Work Phone: [facility] 04-02-2020 zoster vaccine recombinant Snow Doeverki SUGAR CANE GROWER.OPTIONS ADVISOR Work Phone: [facility] 01-31-2020 influenza, high dose seasonal, preservative-free Snow Dobrowski SUGAR CANE GROWER.OPTIONS ADVISOR Work Phone: [facility] 01-31-2020 zoster vaccine recombinant Snow Dobrowski SUGAR CANE GROWER.OPTIONS ADVISOR Work Phone: [facility] 01-19-2019 influenza, high dose seasonal, preservative-free Snow Dobrowski SUGAR CANE GROWER.OPTIONS ADVISOR Work Phone: [facility] 01-15-2018 influenza, high dose seasonal, preservative-free Snow Dobrowski SUGAR CANE GROWER.OPTIONS ADVISOR Work Phone: [facility] 07-30-2017 tetanus toxoid, redu regina diphtheria toxoid, and acellular pertussis vaccine, adsorbed Snow Yukiki SUGAR CANE GROWER.OPTIONS ADVISOR Work Phone: [facility] Work Phone: 02-01-2017 influenza, high dose seasonal, preservative-free Snow Dobrowski SUGAR CANE GROWER.[facility] Work Phone: [facility] 02-14-2016 influenza, high dose seasonal, preservative-free Snow Dobrowski SUGAR CANE GROWER.[facility] Work Phone: [facility] 04-27-2015 influenza, high dose seasonal, preservative-free Snow Dobrowski SUGAR CANE GROWER.[facility] Work Phone: [facility] 04-27-2015 pneumococcal conjuga te vaccine, 13 valent Snow Dobrowski SUGAR CANE GROWER.[facility] Work Phone: [facility] 04-27-2015 tetanus toxoid, redu regina diphtheria toxoid, and acellular pertussis vaccine, adsorbed Snow Dobrowski SUGAR CANE GROWER.[facility] Work Phone: [facility] 03-15-2014 influenza, high dose seasonal, preservative-free Snow Dobrowski SUGAR CANE GROWER.[facility] Work Phone: [facility] Work Phone: 03-11-2013 influenza virus vacc ine, unspecified formulation Snow Dobrowski SUGAR CANE GROWER.[facility] Work Phone: [facility] Work Phone: 03-10-2012 influenza virus vacc ine, unspecified formulation Snow Dobrowski SUGAR CANE GROWER.[facility] Work Phone: [facility] Work Phone: 04-11-2011 influenza virus vacc ine, unspecified formulation Snow Dobrowski SUGAR CANE GROWER.OPTIONS ADVISOR Work Phone: [facility] Work Phone: 04-11-2011 zoster vaccine, live Snow D obrowski SUGAR CANE GROWER.[facility] Work Phone: [facility] Work Phone: 03-11-2009 influenza virus vacc ine, unspecified formulation Snow Dobrowski SUGAR CANE GROWER.[facility] Work Phone: [facility] Work Phone: 03-02-2008 influenza virus vacc ine, unspecified formulation Snow Brooks APRN.OPTIONS ADVISOR Work Phone: [facility] Work Phone: 03-18-2007 influenza virus vacc ine, unspecified formulation Snow Brooks APRN.OPTIONS ADVISOR Work Phone: [facility] Work Phone: 01-17-2006 pneumococcal polysaccharide vaccine, 23 valent Snow Brooks APRN.OPTIONS ADVISOR Work Phone: [facility] Work Phone: 02-03-2005 tetanus and diphther ia toxoids, adsorbed, preservative free, for adult use (2 Lf of tetanus toxoid and 2 Lf of diphtheria toxoid) Snow Brooks APRN.OPTIONS ADVISOR Work Phone: [facility] Work Phone: Payers Date Payer Category Payer Self-pay [id number] 2009 Medicare AETNA MEDICARE A ETNA MEDICARE PPO [id number] 2009-Present [phone] [address] [place] [address] PPO [id number] 2009 Medicare AETNA MEDICARE A ETNA MEDICARE PPO [id number] 2009-Present [phone] [address] [place] [address] PPO [id number] 2009 Medicare (Managed Care) AETNA [place] [id number] 2009 Private Health Insurance 101 [id number] Unknown [id number] Unknown [id number] Unknown [id number] Unknown [id number] Social History Date Type Detail Facility Start: 01-21-2019 End: 01-19-2022 Tobacco smoking status NHIS Ex-smoker [facility] History of tobacco use Cigarette Smoker C [facility] Start: 01-21-2019 End: 01-19-2022 Tobacco use and exposure Smokeless tobacco non-user [facility] Start: 07-03-2021 End: 03-27-2023 Alcohol intake Current non-drinker of alcohol (finding) [facility] Start: 11-06-2019 End: 01-18-2022 History SDOH Alcohol Frequency 1 [facility] Start: 02-20-2020 History SDOH Alcohol Std Drinks 98 [facility] Start: 02-20-2020 End: 01-18-2022 History SDOH Social Connections Phone 2 [facility] Start: 11-06-2019 End: 02-20-2020 History SDOH Social Connections Amish 3 [facility] Start: 02-20-2020 History SDOH Physical Activity DPW 7 [facility] Start: 11-12-2019 History SDOH Financial 5 [facility] Start: 11-06-2019 Education 20 [facility] Start: 01-21-2019 End: 01-19-2022 Tobacco Comment for 2 years when patient was 20yrs old [facility] Start: 1940 Sex Assigned At Male [facility] History of tobacco use Current smoker [facility] Start: 12-25-2021 End: 02-16-2022 Exposure to SARS-CoV-2 (event) Not sure [facility] Start: 02-20-2020 End: 01-15-2023 History of Social function [facility] Start: 02-20-2020 End: 01-15-2023 Social connection and isolation panel [facility] Start: 03-23-2012 Frequency of Social Gatherings with Friends and Family Not on file [facility] Do you feel stress - tense, restless, nervous, or anxious, or unable to sleep at night because your mind is troubled all the time - these days [OSQ] Not at all [facility] (I/We) worried augustin er (my/our) food would run out before (I/we) got money to buy more. Never true [facility] Work Phone: In the past 12 month s, was there a time when you were not able to pay the mortgage or rent on time? No [facility] Start: 11-17-2018 Gender identity Identifies as male gender (finding) [facility] Start: 11-17-2018 Sexual orientation Heterosexual (finding) [facility] Do you belong to any clubs or organizations such as mormon groups, unions, fraternal or athletic groups, or school groups? Yes [facility] Are you now , , , , never or living with a partner? [facility] How often to you hav e a drink containing alcohol? Never [facility] Start: 07-14-2023 Tobacco smoking status NHIS Unknown if ever smoked [facility] Start: 11-04-2019 None [facility] Start: 11-04-2019 Spouse/ Significant Other [facility] Start: 12-31-2023 End: 12-22-2024 Alcoholic beverage intake [facility] Status Date Assessment Result Facility 03-15-2014 Are you deaf, or do you have serious difficulty hearing No 03/15/2014 1:56 PM MEERA VELASQUEZ [facility] 03-15-2014 Are you blind, or do you have serious difficulty seeing, even when wearing glasses No 03/15/2014 1:56 PM MEERA VELASQUEZ [facility] 03-15-2014 Do you have serious difficulty walking or climbing stairs No 03/15/2014 1:56 PM MEERA VELASQUEZ No [facility] 03-15-2014 Do you have difficul ty dressing or bathing No 03/15/2014 1:56 PM MEERA VELASQUEZ No [facility] 03-15-2014 Because of a physica l, mental, or emotional condition, do you have difficulty doing errands alone such as visiting a physician's office or shopping No 03/15/2014 1:56 PM MEERA VELASQUEZ [facility] Mental Status Date Assessment Result Facility 03-15-2014 Because of a physica l, mental, or emotional condition, do you have serious difficulty concentrating, remembering, or making decisions No 03/15/2014 1:56 PM MEERA VELASQUEZ [facility] Clinical Notes 05-10-2005 to 03-03-2025 Shaq Bishop PA-C - 12/22/2024 2:25 PM Leilani Ma LPN - 12/22/2024 1:46 PM Jeremias Mccoy MD - 12/17/2024 10:00 AM Jeremias Mccoy MD - 11/19/2024 11:20 AM EDT Note Date & Type Note Facility 03-03-2025 Note HNO ID: [id number] Author: ALESSANDRA SANDY RN Service: Care Management Author Type: Registered Nurse Type: Care Mgt Progress Note Filed: 03/03/2025 15:14 Note Text: CARE MANAGEMENT PROGRESS NOTE SERVICE DATE: 03/03/2025 SERVICE TIME: 1510 LOS: 6 days Needs Prior to Discharge: To Be Determined, Home Care Order, Facility or Agency Choices [place] of Choice Given: Yes Level of Care Discussed: Home Care Financial Disclosure Provided: Yes Financial Disclosure Comments: CC Affiliation Provider List: Home Care Provider list within the patient's requested geographic area shared with the patient/family: Yes of zip code: [address] Quality and resource use metrics shared with [...] DATE: March 03, 2025 TIME: 3:10 PM [facility] 03-03-2025 Note HNO ID: [id number] Author: ?, ?, ? Service: Pharmacy Author Type: Type Bar And Segment Assembler Type: Plan of Care Filed: 03/03/2025 12:31 Note Text: PHARMACY MEDICATION REVIEW Patient Name: Elsa Palacio : 1940 The following medications were updated within the SOLID WASTE MANAGEMENT ENGINEER medication list: Medications ADDED to SOLID WASTE MANAGEMENT ENGINEER medication list Medications CHANGED on SOLID WASTE MANAGEMENT ENGINEER medication list Medications REMOVED from SOLID WASTE MANAGEMENT ENGINEER medication list Additional comments: Verified medication information with e-scripts/dispense report and chart review. Confirmed medications with family. Family stated medication list is current. Family stated patient not taking any additional medications or supplements. Required follow up actions for nursing: None The below information represents the best possible medication history: Yes Medication history completed by: Type Bar And Segment Assembler: Pat Quick (Fire Suppression Captain) Source of history: Family: Reliability of source: Appears reliable, clearly identified: Medication name, Medication dose, Medication route, and Medication frequency and Spoke with spouse in room, Pharmacy records: e-scripts/dispense report, and [facility] records Medication nonadherence identified: No barriers noted Reconciliation completed: No, pharmacist not yet reviewed Patient interested in Bedside Delivery Services or using OP Pharmacy at discharge? Unable to assess Preferred outpatient pharmacy: [facility] [place] [address] - [address] [facility] [phone] [address] [employer] [address] [place] [address] - [address] [facility] - [phone] [facility] [place] [address] - [facility] - [phone] Portal to Registered [facility] Sites Allergies: Cheese (See Vegetab* Comment:cluster headaches [...] once daily. Facility-Administered Medications: None Pat Quick (Fire Suppression Captain)[id number] 03/03/2025 [facility] 03-03-2025 Note HNO ID: [id number] Author: AMY SANCHEZ MD Service: Critical Care [...] Drain Duration Indwelling Urinary Catheter 03/02/[address] [facility] Temperature Monitoring 16 Fr 1 day Chest Tube 03/02/[address] [facility] Mediastinal 32 Fr Tube #1 <1 day [...] able SIGNATURE: Amy Sanchez MD [facility]:[phone] DATE of SERVICE: 03/03/2025 [facility] 03-03-2025 Note HNO ID: [id number] Author: BECCA, DALILA, PA-C Service: Cardiovascular Surgery Author Type: Physician Punch Press Setter Type: Progress Notes Filed: 03/03/2025 15:34 Note [...] BPH, and cluster headaches who presented to [place] ED with exertional chest pain and shortness of breath. 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 TTE [...] to time, place and person, alert and melt superintendant strength 5/5 Extremities: normal exam of the [...] day Drain Duration Chest Tube 03/02/[address] [facility] Mediastinal 32 Fr Tube #1 <1 day Chest Tube 03/02/25 1200 Left Pleural 28 Fr Tube #2 <1 day Indwelling Urinary Catheter 03/02/[address] [facility] Temperature Monitoring 16 Fr <1 day DATA: Diagnostic tests reviewed for today's visit: CXR: Lines, tubes, and devices: Endotracheal tube and enteric tube have been removed. Right internal jugular central line with tip in the mid to distal superior vena cava. Left-sided chest tube paralleling left hemidiaphragm. Intact median sternotomy wires and sternal plate. 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 Lungs and pleura: No pneumothorax. Diminished aeration remains at both lung bases due to postoperative atelectasis and probable pleural effusion. Cardiomediastinal silhouette: Stable. Other: No significant additional findings. Recent Labs 03/03/25 0405 03/02/25200903/02/25 1801 03/02/25 1408 03/02/25 0604 03/01/25 0607 RBC 3.46* -- -- 3.63* 4.70 4.60 WBC 13.46* -- -- 25.71* 8.49 7.95 HB 10.9* -- -- (more content not included)... [facility] 03-02-2025 Note HNO ID: [id number] Author: DANISH BRUMFIELD APRN.GLEASON OPERATOR Service: Anesthesiology Author Type: Nurse Transformation Manager Type: Anesthesia Procedure Notes Filed: 03/02/2025 08:35 Note Text: ANESTHESIOLOGY PROCEDURE NOTE Airway General Information Procedure Start Time/Medication Administration: 03/02/2025 7:28 AM Procedure End Time: 03/02/2025 7:28 AM Patient location during procedure: OR Patient identity confirmed: arm band and patient Staffing Anesthesiologist: Brooks Montejo MD GLEASON OPERATOR: Danish Brumfield APRN.GLEASON OPERATOR Performed by: GLEASON OPERATOR Indications and Patient Condition Indications for airway [...] March 02, 2025 TIME: 8:34 AM CSN: [id number] [facility] 03-02-2025 Note HNO ID: [id number] Author: BROOKS MONTEJO MD Service: Anesthesiology Author Type: Physician Type: Anesthesia Procedure Notes Filed: 03/02/2025 08:26 Note Text: ANESTHESIOLOGY PROCEDURE NOTE CVL General Information Procedure Start Time/Medication Administration: 03/02/2025 7:31 AM Procedure End Time: 03/02/2025 7:44 AM Patient location during procedure: OR Timeout Performed Pre-procedure: timeout performed Consent Obtained: Yes Patient identity confirmed: arm band, care hat steamer and patient sedated or unresponsive Indication: central [...] March 02, 2025 TIME: 8:25 AM CSN: [id number] [facility] 03-02-2025 Note HNO ID: [id number] Author: BROOKS MONTEJO MD Service: Anesthesiology Author [...] March 02, 2025 TIME: 8:23 AM CSN: [id number] [facility] 03-01-2025 Note HNO ID: [id number] Author: OMARI HEATON MD Service: Hospital Medicine Author Type: Physician Type: Progress Notes Filed: 03/01/2025 14:33 Note Text: DEPARTMENT OF HOSPITAL MEDICINE PROGRESS NOTE SERVICE DATE: 03/01/2025 SERVICE TIME: 2:32 PM Hospital Medicine/Primary Attending: Omari Heaton MD NIGHT AND WEEKEND COVERAGE: [employer] COVERAGE: After 7pm, please call cross cover pager #[phone] Subjective INTERVAL HPI: Episode of sharp L [...] CONTINUOUS New Bag/Syringe/Bot (more content not included)... [facility] 03-01-2025 Note HNO ID: [id number] Author: AALIYAH LÓPEZ RN Service: Care Management [...] DATE: March 01, 2025 TIME: 2:14 PM [facility] 03-01-2025 Note HNO ID: [id number] Author: RITA HENLEY PA-C Service: Cardiovascular Surgery Author Type: Physician Punch Press Setter Type: Plan of Care Filed: 03/01/2025 13:54 [...] of scheduled surgery Rita Henley PA-C Pager #[phone] [facility] 02-28-2025 Note HNO ID: [id number] Author: RITA HENLEY PA-C Service: Cardiovascular Surgery Author Type: Physician Punch Press Setter Type: Plan of Care Filed: 02/28/2025 17:49 [...] PT Sec Giuseppe (more content not included)... [facility] 02-28-2025 Note HNO ID: [id number] Author: OMARI HEATON MD Service: Hospital Medicine Author Type: Physician Type: Progress Notes Filed: 02/28/2025 14:07 Note Text: DEPARTMENT OF HOSPITAL MEDICINE PROGRESS NOTE SERVICE DATE: 02/28/2025 SERVICE TIME: 2:04 PM Hospital Medicine/Primary Attending: Omari Heaton MD NIGHT AND WEEKEND COVERAGE: [employer] COVERAGE: After 7pm, please call cross cover pager #[phone] Subjective INTERVAL HPI: Feeling well. Current Facility-Administered [...] -- 02/25/25 004 vte current anticoag therapy (ct,ar) 02/25/2544 pneumatic compression sleeve(s) ([place]) 02/25/2544 activity - mobilize patient ([place] VTE Prophylaxis: VTE prophylaxis appropriate Disposition: Home Plan of care discussed with Provider, RN, Patient Plan communicated to: N/A SIGNATURE: Omari Heaton MD PATIENT NAME: Elsa Palacio DATE: February 28, 2025 TIME: 1:56 PM [facility] 02-27-2025 Note HNO ID: [id number] Author: OMARI HEATON MD Service: Hospital Medicine Author Type: Physician Type: Progress Notes Filed: 02/27/2025 14:33 Note Text: DEPARTMENT OF HOSPITAL MEDICINE PROGRESS NOTE SERVICE DATE: 02/27/2025 SERVICE TIME: 2:32 PM Hospital Medicine/Primary Attending: Omari Heaton MD NIGHT AND WEEKEND COVERAGE: [employer] COVERAGE: After 7pm, please call cross cover pager #[phone] Subjective INTERVAL HPI: Mild fatigue and nausea. [...] 0026 -- 02/25/2544 vte current anticoag therapy (ct,ar) 02/25/2544 pneumatic compression sleeve(s) ([place] 02/25/2544 activity - mobilize patient ([place] VTE Prophylaxis: VTE prophylaxis appropriate Disposition: Home Plan of care discussed with Provider, RN, Patient Plan communicated to: N/A SIGNATURE: Omari Heaton MD PATIENT NAME: Elsa Palacio DATE: February 27 (more content not included)... [facility] 02-27-2025 Note HNO ID: [id number] Author: DALILA HUDSON PA-C Service: Cardiovascular Surgery Author Type: Physician Punch Press Setter Type: Plan of Care Filed: 02/27/2025 13:24 [...] - Exam was compared with the prior [facility] echocardiographic exam performed on 03/14/2020. No significant [...] 39.7%, WBC Count: 8.96 10?/?L, Platelet Count: 858259 cells/?L Substance Abuse: Former smoker Risk Factors [...] Breath. Continue heparin drip. Dalila Hudson PA-C [facility] 02-26-2025 Note HNO ID: [id number] Author: OMARI HEATON MD Service: Hospital Medicine Author Type: Physician Type: Progress Notes Filed: 02/26/2025 13:57 Note Text: DEPARTMENT OF HOSPITAL MEDICINE PROGRESS NOTE SERVICE DATE: 02/26/2025 SERVICE TIME: 1:54 PM Hospital Medicine/Primary Attending: Omari Heaton MD NIGHT AND WEEKEND COVERAGE: [place] COVERAGE: After 7pm, please call cross cover pager #[phone] Subjective INTERVAL HPI: Denies chest pain or [...] -- 02/25/25 004 vte current anticoag therapy ([place] 02/25/2544 pneumatic compression sleeve(s) ([place] 02/25/2544 activity - mobilize patient ([place] VTE Prophylaxis: VTE prophylaxis appropriate Disposition: Home Plan of care discussed with Provider, RN, Patient Plan communicated to: N/A SIGNATURE: Omari Heaton MD PATIENT NAME: Elsa Palacio DATE: February 26, 2025 TIME: 1:56 PM [facility] 02-26-2025 Note HNO ID: [id number] Author: CANDIDA VALDIVIA RN Service: Care Management [...] DATE: February 26, 2025 TIME: 11:08 AM [facility] 02-25-2025 Note HNO ID: [id number] Author: OMARI HEATON MD Service: Hospital Medicine Author Type: Physician Type: Progress Notes Filed: 02/25/2025 13:59 Note Text: DEPARTMENT OF HOSPITAL MEDICINE PROGRESS NOTE SERVICE DATE: 02/25/2025 SERVICE TIME: 1:56 PM Hospital Medicine/Primary Attending: Omari Heaton MD NIGHT AND WEEKEND COVERAGE: [place]EVIE COVERAGE: After 7pm, please call cross cover pager #[phone] Subjective INTERVAL HPI: Denies chest pain or [...] -- 02/25/25 004 vte current anticoag therapy ([place] 02/25/2544 pneumatic compression sleeve(s) ([place] 02/25/2544 activity - mobilize patient ([place] VTE Prophylaxis: VTE prophylaxis appropriate Disposition: Home Plan of care discussed with Provider, RN, Patient Plan communicated to: N/A SIGNATURE: Omari Heaton MD PATIENT NAME: Elsa Palacio DATE: February 25, 2025 TIME: 1:56 PM [facility] 02-25-2025 Note HNO ID: [id number] Author: HERMINIA LEAL RN Service: ? Author Type: Registered Nurse Type: Progress Notes Filed: 02/25/2025 11:44 Note Text: Transitional Care Management (TCM) Inpatient Outreach N/A - No specialty updates needed Summary: Patient admitted to: [facility] Patient admitted on: 02/24/25 Admitted for: CABG (coronary artery bypass graft) planned Contact made with patient: Yes Scarlet, my name is Herminia Leal RN and I am calling from the [facility] on behalf of Soraya Briones MD. I understand that you are currently admitted at [facility] and I am calling to cover the [...] registered nurse OR a text from the [facility] containing a secure link that will ask you questions about how you are doing since you are back at home. Please know that the telephone number on your caller ID may not identify as [facility]. During our outreach with you, we will ask you about any new or worsening symptoms and ensure you have a follow up appointment with your provider. Best Contact after Hospital Discharge I would like to confirm your contact information. Do you have a mobile phone, landline, or both? Mobile only: [phone] Is this the best number to reach you? Yes Do you give us permission to speak with anyone else if you are unavailable to speak with us? Yes. Name Christine relationship spouse, and contact number [phone]. Primary Care Provider (PCP) Hospital Discharge Appointment Does patient already have a PCP follow up appointment within 7-14 days after hospital discharge? No MyChart Patient MyChart status is: Active Thank you for taking the time to speak with me today. I look forward to working with you once you are discharged home from the hospital. Herminia Leal RN February 25, 2025 11:44 AM [facility] 02-25-2025 Note HNO ID: [id number] Author: CANDIDA VALDIVIA RN Service: Care Management Author Type: Registered Nurse Type: Care Mgt Initial Assessment Filed: 02/25/2025 12:16 Note Text: CARE MANAGEMENT: ASSESSMENT AND DISCHARGE PLAN SERVICE DATE: February 25, 2025 SERVICE TIME: 11:20 AM PCP: Soraya Briones MD Primary Contact: Extended Emergency Contact Information Primary Emergency Contact: Barbara Palacion Address: [address] [place] [address] Mobile Relation: Spouse Admission Status: Inpatient Insurance [...] Be able to go home, General wellness [place] Explained: [place] Given: No Reason Not Given: No placements necessary Are you interested in bedside delivery of your medications? No Patient would like to keep [facility] in [place]. Discharge Planning Participant(s): Patient, Family Patient/Family Comments: [...] with his PCP (Soraya Briones MD with [facility]). Patient drives, and family is able to assist as needed. Plan is home with self care when medically ready for discharge. CM to follow. SIGNATURE: Candida Valdivia RN PATIENT NAME: Elsa Palacio DATE: February 25, 2025 TIME: 12:12 PM [facility] 02-25-2025 Note Patient Outreach ([facility]) GÓMEZPARMINDERELSA Brennan ([id number]) 1940 M Date Time Provider Department 02/25/25 HERMINIA LEAL During your visit today, we recorded the following information about you: Herminia Leal RN 02/25/2025 11:44 AM Signed Transitional Care Management (TCM) Inpatient Outreach N/A - No specialty updates needed Summary: Patient admitted to: [facility] Patient admitted on: 02/24/25 Admitted for: CABG (coronary artery bypass graft) planned Contact made with patient: Yes Jonathanfay, my name is Herminia Leal RN and I am calling from the [facility] on behalf of Soraya Briones MD. I understand that you are currently admitted at [facility] and I am calling to cover the [...] registered nurse OR a text from the [facility] containing a secure link that will ask you questions about how you are doing since you are back at home. Please know that the telephone number on your caller ID may not identify as [facility]. During our outreach with you, we will ask you about any new or worsening symptoms and ensure you have a follow up appointment with your provider. Best Contact after Hospital Discharge I would like to confirm your contact information. Do you have a mobile phone, landline, or both? Mobile only: [phone] Is this the best number to reach you? Yes Do you give us permission to speak with anyone else if you are unavailable to speak with us? Yes. Name Christine, relationship spouse, and contact number [phone]. Primary Care Provider (PCP) Hospital Discharge Appointment [...] Assessed Reason for Visit: Transition Of Care [0076] Cmt: Reach In Prescriptions as of 02/25/2025 [...] [G44*01/27/2015 HTN (hypertension) (more content not included)... [facility] 02-24-2025 Note [facility] Medical Records Department [address] [place] [address] Discharge Summary 02/24/25 1326 MR#: [id number] Acct: [id number] Name: ELSA PALACIO Rep #: [id number] : 1940 85 From: Anibal Shore MD PCP: Dr. Jeremias Damico MD Status:DIS IN Location: [facility] [id number] Providers Date of Admission: 02/24/25 Date of [...] Chau for patient to be transferred to [facility] for bypass 2. Hypertension ??? Recently diagnosed [...] 73.8 H, Lymph % (Auto) 17.2 L, [place] % (Auto) 6.5, Eos % (Auto) 1.7, Baso % (Auto) 0.5, Absolute Neuts (auto) 6.8, Absolute Lymphs (auto) 1.59, Nucleated RBC % 0, PT 13.4, INR 1.0, APTT 27.5, Sodium 135, Potassium 4.1, Chloride 100, Carbon Dioxide 24.9, Anion Gap 9, BUN 19, Creatinine 1.11, Estim Cr (more content not included)... [facility] 02-16-2025 Note HNO ID: [id number] Author: JEREMIAS DAMICO MD Service: ? Author [...] intractable migraine without mention of status migrainosus [facility], Dr Pierce Primary hypertension 10/13/2024 Previous Surgical [...] mg by mouth daily at bedtime. docusate sodium([employer] LIQUI-GELS 100 MG CAP) Take by mouth [...] Past Histories independently gathered by the clinical residential direct support professional and the remaining scribed note accurately describes my personal service to the patient. Medical Decision Making: Problems: Low: Stable chronic illness Risk: Moderate: Drug management Medical Decision Making Level: 3 - Low Jeremias Damico MD The documentation for this note was completed by Jessica Bates, (more content not included)... [facility] 12-22-2024 Note HNO ID: [id number] Author: SHAQ BISHOP PA-C Service: ? Author Type: Physician Punch Press Setter Type: Progress Notes Filed: 12/22/2024 16:42 Note Text: [facility] EST PATIENT CLINIC NOTE (M) Some elements copied from his previous note, which have been updated where appropriate, and all reflect current medical decision making from date of this visit. Note was generated by [employer] and edited as appropriate SERVICE DATE: [...] mg by mouth daily at bedtime. docusate sodium([employer] LIQUI-GELS 100 MG CAP) Take by mouth once daily. 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 - Urinalysis (more content not included)... [facility] 12-22-2024 History of Presen t illness Narrative Images from the original note were not included. [facility] PATIENT CLINIC NOTE (M) Some elements copied from his previous note, which have been updated where appropriate, and all reflect current medical decision making from date of this visit. Note was generated by [employer] and edited as appropriate SERVICE DATE: [...] intractable migraine without mention of status migrainosus [facility], Dr Pierce Primary hypertension 10/13/2024 REVIEW OF [...] Appointment with Shaq. documented in this encounter [facility] 12-22-2024 Note HNO ID: [id number] Author: LEILANI ARCHER LPN Service: ? Author [...] tolerated the procedure well. Plan: Appointment with Shqa. [facility] 12-17-2024 History of Presen t illness [...] General (Family Medicine) Zeeshan Mahmood APRN.RUTHIE as Technical Project Coordinator (Family Medicine) Outside specialists seen: Urology, Dermatology [...] intractable migraine without mention of status migrainosus [facility], Dr Pierce Primary hypertension 10/13/2024 Previous Surgical [...] 10.4 Absolute nRBC 12/14/2024 <0.01 Recording using [employer] software for draft documentation of the visit was discussed with the patient/authorized outside sales representative insurance; all questions welcomed and answered. Patient/authorized outside sales representative insurance agreed to proceed 1. Acquired hypothyroidism (E03.9) TSH within target range on current Synthroid regimen. - Continue current Synthroid dose. - Refill sent to [facility]. 2. Primary hypertension (I10) Home BP readings [...] Continue tamsulosin and Proscar; refills sent to [facility]. Medical Decision Making: Problems: Moderate: 1+ chronic [...] Drug use: Never documented in this encounter [facility] 12-17-2024 Note HNO ID: [id number] Author: JEREMIAS DAMICO MD Service: ? Author [...] General (Family Medicine) Zeeshan Mahmood APRN.RUTHIE as Technical Project Coordinator (Family Medicine) Outside specialists seen: Urology, Dermatology [...] (FLOMAX) 0.4 mg (more content not included)... [facility] 11-19-2024 History of Presen t illness [...] mg by mouth daily at bedtime. docusate sodium([employer] LIQUI-GELS 100 MG CAP) Take by mouth [...] 100 mg daily; prescription sent to [facility] in [place]. - Advised patient to take medication in the evening. - Scheduled follow-up appointment in one month to reassess blood pressure and symptoms. - Ordered lab work to be completed before the next visit. - Cancelled appointment with Zeeshan and will conduct Medicare wellness visit during the next appointment. 2. Acquired hypothyroidism (E03.9) Recording using [employer] software for draft documentation of the visit was discussed with the patient/authorized outside sales representative insurance; all questions welcomed and answered. Patient/authorized outside sales representative insurance agreed to proceed I agree with the Chief Complaint, ROS, and Past Histories independently gathered by the clinical residential direct support professional and the remaining scribed [...] Jessica Bates MA documented in this encounter [facility] 11-19-2024 Note HNO ID: [id number] Author: JEREMIAS DAMICO MD Service: ? Author [...] intractable migraine without mention of status migrainosus [facility], Dr Pierce Primary hypertension 10/13/2024 Previous Surgical [...] mg by mouth daily at bedtime. docusate sodium([employer] LIQUI-GELS 100 MG CAP) Take by mouth [...] to 100 mg daily; prescription sent to [facility] in [place]. - Advised patient to take medication in the evening. - Scheduled follow-up appointment in one month to reassess blood pressure and symptoms. - Ordered lab work to be completed before the next visit. - Cancelled appointment with Zeeshan and will conduct Medicare wellness visit during t (more content not included)... [facility] 10-13-2024 History of Presen t illness [...] mg by mouth daily at bedtime. docusate sodium([employer] LIQUI-GELS 100 MG CAP) Take by mouth [...] Prescription for losartan 50 mg sent to [facility] pharmacy. - Follow-up appointment scheduled in one month to reassess blood pressure control. Recording using [employer] software for draft documentation of the visit was discussed with the patient/authorized outside sales representative insurance; all questions welcomed and answered. Patient/authorized outside sales representative insurance agreed to proceed I agree with the Chief Complaint, ROS, and Past Histories independently gathered by the clinical residential direct support professional and the remaining scribed [...] Jessica Bates MA documented in this encounter [facility] 10-13-2024 Note HNO ID: [id number] Author: JEREMIAS DAMICO MD Service: ? Author [...] Prescription for losartan 50 mg sent to [facility] pharmacy. - Follow-up appointment scheduled in one month to reassess blood pressure control. Recording using [employer] software for draft documentation of the visit was discussed with the patient/authorized outside sales representative insurance; all questions welcomed and answered. Patient/authorized represe (more content not included)... [facility] 09-04-2024 History of Presen t illness [...] BP and reported readings on 08/27/24 via [employer]. Denies any chest pains, dizziness, SOB, or [...] intractable migraine without mention of status migrainosus [facility], Dr Pierce Previous Surgical History PAST SURGICAL [...] mg by mouth daily at bedtime. docusate sodium([employer] LIQUI-GELS 100 MG CAP) Take by mouth [...] Past Histories independently gathered by the clinical residential direct support professional and the remaining scribed [...] Jessica Bates MA documented in this encounter [facility] 09-04-2024 Note HNO ID: [id number] Author: JEREMIAS DAMICO MD Service: ? Author [...] BP and reported readings on 08/27/24 via [employer]. Denies any chest pains, dizziness, SOB, or [...] Past Histories independently gathered by the clinical residential direct support professional and the remaining scribe (more content not included)... [facility] 09-01-2024 Telephone encounter Note Patient rescheduled. [facility] 09-01-2024 Miscellaneous Notes Patient rescheduled. Notified pt [...] Naida Vazquez MA documented in this encounter [facility] 08-31-2024 Telephone encounter Note Notified pt of message below from Provider. Offered to schedule sooner appt if pt would like. Also made pt aware that Provider is okay with appt as scheduled, if pt prefers to not come sooner. Wait pt response. Naida Vazquez MA [facility] [facility] Telephone encounter Note He probably will be okay. I think Dr. Damico has an appt at 3 pm this Saturday if he wants a sooner appointment. Zeeshan Mahmood APRN.OPTIONS ADVISOR [facility] 08-31-2024 Telephone encounter Note Zeeshan are you okay with the appt as scheduled on 09/15/24. Naida Vazquez MA [facility] 08-27-2024 Telephone encounter Note Message sent to pt notifying him that he needs appt. Awaiting response on day and time that would work for his appt. Jessica Bates MA [facility] 08-27-2024 Telephone encounter Note Looks like patient would benefit from a visit to discuss blood pressure management Zeeshan Mahmood APRN.OPTIONS ADVISOR [facility] 08-27-2024 Telephone encounter Note See pt message and advise. Medication was d/c by Neurology. Naida Vazquez MA [facility] 08-18-2024 Note HNO ID: [id number] Author: ROBYN HOWE MA Service: ? Author Type: Sushi Chef Type: Progress Notes Filed: 08/18/2024 10:47 Note Text: POPULATION HEALTH NAVIGATION OUTREACH Action/FYI Patient is on Value Hub Outreach List and needs appointment to address : Advance Directive Discussion Covid-19 Vaccine() Patient due for: N/A - Needs H@H number MyChart Active: Yes 1st Attempt: Left message for patient to call back. Sent Dennoo message. AWV already scheduled 01-29-25 Healthy at Home (H@H) phone number provided [phone]: Yes via Dennoo Reason for Outreach Value Hub Care Gaps due: N/A Patient Contacted: Unable or unnecessary to reach patient: Left message CombineNethart message sent Navigation Signature: Robyn Howe MA August 18, 2024 10:44 AM [facility] 08-18-2024 History of Presen t illness Narrative POPULATION HEALTH NAVIGATION OUTREACH Action/FYI Patient is on Value Hub Outreach List and needs appointment to address : Advance Directive Discussion Covid-19 Vaccine() Patient due for: N/A - Needs H@H number MyChart Active: Yes 1st Attempt: Left message for patient to call back. Sent Dennoo message. AWV already scheduled 01-29-25 Healthy at Home (H@H) phone number provided [phone]: Yes via Ybrant Digitalt Reason for Outreach [facility] Care Gaps due: N/A Patient Contacted: Unable or unnecessary to reach patient: Left message Xactium message sent Navigation Signature: Robyn Howe MA [...] 2024 10:40 AM documented in this encounter [facility] 08-18-2024 Note HNO ID: [id number] Author: SARMAD NEWTON RN Service: ? Author [...] Newton RN August 18, 2024 10:40 AM [facility] 08-18-2024 Note Patient Outreach (AM [facility]) ELSA PALACIO ([id number]) 1940 M Date Time Provider Department 08/18/24 [...] due for: N/A - Needs H@H number Xactium Active: Yes 1st Attempt: Left message for patient to call back. Sent Dennoo message. AWV already scheduled 01-29-25 Healthy at Home (H@H) phone number provided [phone]: Yes via mychart Reason for Outreach Value [facility] Care Gaps due: N/A Patient Contacted: Unable or unnecessary to reach patient: Left message CombineNethart message sent Navigation Signature: Robyn Howe MA [...] Date Reviewed: 08/04/2024 Reviewed by: Snow Brooks APRN.OPTIONS ADVISOR - Fully Assessed Reason for Visit: Population Health Navigation Outreach [3910] Cmt: Value [facility] Prescriptions as of 08/18/2024 [...] Encounter Status:Closed by SARMAD NEWTON on 08/18/24 [facility] 08-04-2024 History of Presen t illness Narrative Images from the original note were not included. [facility] Follow up visit August 04, 2024 Chief [...] mg by mouth daily at bedtime. docusate sodium([employer] LIQUI-GELS 100 MG CAP) Take by mouth [...] all extremities equally Gait: normal-based. IMPRESSION: Elsa Palacio is a 84 year old year old [...] which included preparing to see the patient, fina-lq-gqqe patient care, completing clinical documentation, obtaining and/or reviewing separately obtained history, performing a medically appropriate examination, and counseling and educating the patient/family/caregiver. Snow Brooks APRN.RUTHIE Headache Section [facility] documented in this encounter [facility] 08-04-2024 Note HNO ID: [id number] Author: SNOW BROOKS APRN.CNP Service: ? Author Type: Nurse Practitioner Type: Progress Notes Filed: 08/04/2024 10:06 Note Text: [facility] Follow up visit August 04, 2024 Chief [...] no impact) 4 (more content not included)... [facility] 01-30-2024 History of Presen t illness Narrative [facility] Follow up visit January 30, 2024 Chief [...] which included preparing to see the patient, onqv-wy-eloc patient care, completing clinical documentation, obtaining and/or reviewing separately obtained history, performing a medically appropriate examination, and ordering medications, tests, or procedures. Snow Brooks APRN.RUTHIE Headache Section [facility] documented in this encounter [facility] 01-24-2024 Instructions Zeeshan Mahmood APRN.RUTHIE - 01/24/2024 [...] review all the medicines you take, even lgtp-gyn-lfsjdgj medicines. As you get older, the way [...] certain medical conditions. documented in this encounter [facility] 01-24-2024 History of Presen t illness Narrative [...] Abs Lymph 1.00 - 4.00 k/uL 1.92 [place]% % 6.8 Abs [place] <0.87 k/uL 0.55 Eosin% % 4.8 Abs [...] - Personalized prevention plan provided Zeeshan Mahmood APRN.OPTIONS ADVISOR Additional Concerns The following concerns were also [...] YR, HIGH DOSE, TRIVALENT (FLUZONE HIGH-DOSE) - UCT Coatings-Apixio COVID-19 VACCINE AGE 12+ YR (COMIRNATY) Zeeshan Mahmood APRN.OPTIONS ADVISOR RTO in 12 months. documented in this encounter [facility] 01-21-2024 History of Presen t illness Narrative Patient presents for EKG per Snow Brooks CNP. Denies any problems at this time. Tolerated procedure well. Meera Parker LPN documented in this encounter [facility] 01-09-2024 Telephone encounter Note KD 12/31/23 Pt. Requesting another pharmacy Patient phones requesting refills as follows: Requested Prescriptions Pending Prescriptions Disp Refills finasteride (PROSCAR) 5 mg tablet [Pharmacy Med Name: finasteride 5 mg tablet] 90 tablet 3 Sig: take 1 tablet by mouth once daily. Please review and advise. Shawn Diaz RN [facility] 01-09-2024 Miscellaneous Notes KD 12/31/23 Pt. Requesting another pharmacy Patient phones requesting refills as follows: Requested Prescriptions Pending Prescriptions Disp Refills finasteride (PROSCAR) 5 mg tablet [Pharmacy Med Name: finasteride 5 mg tablet] 90 tablet 3 Sig: take 1 tablet by mouth once daily. Please review and advise. Shawn Diaz, RN documented in this encounter [facility] 01-03-2024 Telephone encounter Note Patient returned call and given provider's message below and patient verbalized understanding. Thao Gould RN [facility] 01-03-2024 Miscellaneous Notes Patient returned call and [...] appointment with Zeeshan. documented in this encounter [facility] 01-02-2024 Telephone encounter Note Message left for pt to call back. Jessica Bates MA [facility] 01-01-2024 Telephone encounter Note I placed labs. The EKG was ordered by neurology. He would need an appointment with a nurse to get it completed. Zeeshan Mahmood APRN.OPTIONS ADVISOR [facility] 01-01-2024 Telephone encounter Note Pt called wondering if there are any labs necessary prior to his 01/24/24 appt. Please let him know. He needs and EKG also and would like to schedule lab and EKG same day unless EKG can be done at appointment with Zeeshan. [facility] Work Phone: 12-31-2023 Instructions Shaq Bishop PA-C - 12/31/2023 4:01 PM EDT .> 1 year Appt w/ B. MARTHA Bishop, [facility] for refills documented in this encounter [facility] 12-31-2023 History of Presen t illness Narrative Images from the original note were not included. [facility] EST PATIENT CLINIC NOTE [...] Appointment with Shaq. documented in this encounter [facility] 12-09-2023 Telephone encounter Note He has tapered off Depakote, no labs Continues on Verapamil - order for EKG placed. Snow Brooks APRN.RUTHIE [facility] 12-09-2023 Miscellaneous Notes He has tapered off Depakote, no labs Continues on Verapamil - order for EKG placed. Snow Brooks APRN.CNP Call received for Snow Brooks APRN.CNP regarding Elsa Mendozaanu 1940. Caller: Self Patient Identified by Name [...] with Cecilia Best number to reach caller: [phone] (home) Best time to reach caller: ANY Is it OK to leave a detailed voice message? Yes Sandie Gonzalez documented in this encounter [facility] 12-06-2023 Telephone encounter Note Call received for [...] with Cecilia Best number to reach caller: [phone] (home) Best time to reach caller: ANY Is it OK to leave a detailed voice message? Yes Sandie Gonzalez [facility] 09-02-2023 Telephone encounter Note Physician: Cecilia Call from patient requesting refill. Please E-Scribe Last OV: 01/21/2023 with Cecilia Future OV: Not Scheduled. Requested Prescriptions Pending Prescriptions Disp Refills verapamil 80 mg tablet 180 tablet 3 Sig: Take one(1) tablet two(2) times daily. Pharmacy Name: [facility] Bria Flores Adm [facility] 09-02-2023 Miscellaneous Notes Physician: Cecilia Call from patient requesting refill. Please E-Scribe Last OV: 01/21/2023 with Cecilia Future OV: Not Scheduled. Requested Prescriptions Pending Prescriptions Disp Refills verapamil 80 mg tablet 180 tablet 3 Sig: Take one(1) tablet two(2) times daily. Pharmacy Name: [facility] Bria [facility] documented in this encounter [facility] 07-14-2023 Discharge summary Note Date/Time July 14, 2023 8:53am [facility] Medical Records Department [address] [place] [address] Emergency Department Summary 07/14/23 MR#: [id number] Acct: [id number] Name: ELSA PALACIO KEVIN Rep #:[id number] : 1940 83 From: Salomon Marquez MD [...] your Primary Care Provider. Call [facility] ([phone]) or report to the closest Emergency Room. Call 911 if necessary. 07/14/23 1049 <Electronically signed by Salomon Marquez MD> Cosigner Signature (if applicable): CC: Dr. Jeremias Damico MD ~ Signed [facility] Work Phone: [phone]) 372-894712-06-2023 History of Present illness Narrative* Susan Donis APRN.OPTIONS ADVISOR - 03/27/2023 9:16 AM EST CC: Patient [...] plan. Susan Donis APRN.RUTHIE [facility] Miscellaneous Notes* Telephone Encounter - Naida Vazquez Ma - 02/18/2023 9:16 AM EDT Placed in first Dennoo message, closing this encounter. Naida Vazquez Ma documented in this encounterA[facility]10-13-2023 History of Present illness Narrative* Zeeshan Mahmood [...] - TRAZODONE 50 MG TABLET Zeeshan Mahmood APRN.OPTIONS ADVISOR This note was partly generated using [employer] voice recognition dictation and may contain some misspelled or inaccurate words missed on review. documented in this encounterAdena Health System10-13-2023 Instructions* Patient Instructions* Zeeshan Mahmood APRN.CNP - 02/01/2023 12:58 PM EDT Trial Trazodone 50 mg at night. Can you take with the melatonin. Just take 2 tablets of the melatonin. If you are groggy, trial decreasing melatonin dose. Can work all the way down to no melatonin. Mychart me in 2-3 weeks to update me. Zeeshan Mahomod APRN.RUTHIE documented in this encounterAdena [facility] System10-05-2023 History of Present illness Narrative* Meera Parker LPN - 01/24/2023 12:58 PM EDT Patient presents for EKG per Snow Brooks CNP. Denies any problems at this time. Tolerated procedure well. Meera Parker LPN documented in this encounterAdena [facility] System10-03-2023 History of Present illness Narrative* Zeeshan Mahmood APRN.CNP - 01/22/2023 10:20 AM EDT Elsa Palacio is a 82 year old male here for a Medicare wellness visit. Health Risk Assessment In general, health is: Excellent Concerns with balance: Not at all Concerns with teeth or dentures: Not at all Concerns with sexual function: Not at all Adrian anxious, stressed, angry, irritable, lonely, isolated, or [...] aids. Right ear hearing aid with a nurses aide fromleft ear. Following with audiology. General appearance: [...] Abs Lymph 1.00 - 4.00 k/uL 1.80 [place]% % 6.4 Abs [place] <0.87 k/uL 0.45 Eosin% % 3.1 Abs [...] have reviewed the Advanced Practice Registered Nurse ([employer]OWER) student's documentation and verified the findings in the note as written. Any additions or changes are noted in bold/italics. Zeeshan Mahmood APRN.RUTHIE documented in this encounterAdena [facility] System10-02-2023 History of Present illness Narrative* Snow Brooks APRN.RUTHIE - 01/21/2023 1:00 PM EDT Head[facility] Follow up visit January 21, 2023 Chief [...] which included preparing to see the patient, cbjb-qa-jutz patient care, completing clinical documentation, obtaining and/or reviewing separately obtained history, performing a medically appropriate examination, counseling and educating the patient/family/caregiver, and ordering medications, tests, or procedures. Snow Brooks APRN.OPTIONS ADVISOR Headache Section [facility] documented in this encounterAdena [facility] System09-07-2023 Miscellaneous Notes* Telephone Encounter - Wendy Jack [...] would like to obtain with PCP in [place]. Did not have fax number. States its his typical lab work and did not know exactly what. Just wanted to get it done before his appt on 01/21/23. Number to return call [phone] Okay to leave a message ? Yes Last office visit 02/16/22 with Cecilia Next office visit 01/21/23 with Cecilia Thank you calling [facility] [place]. You will receive a return call within 48hours ( or 2 business days if close to the weekend). If you feel that this is an urgent issue and needs immediate attention, it is recommended that you contact your primary care provider office or proceed to your nearest Urgent Care Center of Emergency Room ED for evaluation/treatment. documented in this encounterAdena Health System02-15-2023 Miscellaneous Notes* Telephone Encounter - Nesha Vail Adm - 06/06/2022 12:23 PM EST KD: 02/16/2022 with Cecilia documented in this encounterAdena Health System01-10-2023 Instructions* Patient Instructions* Shaq Bishop PA-C - 05/01/2022 10:34 AM EST > 1 year Appt w/ B. MARTHA Bishop, [facility] for annual follow-up and refills. documented in this encounterAdena Health System01-10-2023 History of Present illness Narrative* Shaq Bishop PA-C - 05/01/2022 10:23 AM EST Images from the original note were not included. [facility] ESTABLISHED PATIENT CLINIC NOTE Some elements copied from his previous note, which have been updated where appropriate, and all reflect current medical decision making from date of this visit. SERVICE DATE: 05/01/2022 SERVICE TIME: 10:23 AM NAME: Elsa Palacio CHIEF COMPLAINT: 3 mo follow up HISTORY [...] mg by mouth daily at bedtime. docusate sodium([employer] LIQUI-GELS 100 MG CAP) Take by mouth once daily. 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 documented in this encounterAdena [facility] System12-02-2022 Miscellaneous Notes* Telephone Encounter - Sonia Godfrey [...] [facility] Wendy Jack documented in this encounterAdena Health System10-31-2022 Miscellaneous Notes* Telephone Encounter - Snow Brooks APRN.CNP - 02/19/2022 4:51 PM EDT Called patient and discussed EKG results NSR. Snow Brooks APRN.RUTHIE * Telephone Encounter - Neshayessenia Vail Adm - 02/19/2022 4:38 PM EDT Patient called back and said that he will be available all day after 9 am tomorrow. [phone] * Telephone Encounter - Snow Brooks APRN.CNP - 02/19/2022 4:32 PM EDT Called patient and left message to contact the office with the best time to reach him Snow Brooks APRN.CNP * Telephone Encounter - Jocelyn Madrid Pss - 02/19/2022 2:51 PM EDT Patient last seen 02/16/2022. ECG results are dated 02/15/2022. documented in this encounterAdena Health System10-28-2022 Instructions* Patient Instructions* Snow Brooks APRN.CNP - 02/16/2022 10:55 AM EDT 03/03/2021 07/03/2021 BP 116/70 118/72 Pulse 66 74 01/19/2022 01/30/2022 02/16/2022 BP 134/84 154/98 Shaq Bishop PA-C notified of blood pressure. 148/73 Pulse 60 64 59 (A) documented in this encounterAdena Health System10-28-2022 History of Present illness Narrative* Snow Brooks APRN.CNP - 02/16/2022 10:30 AM EDT [facility] Follow up visit February 16, 2022 Chief [...] articulation, and clear,coherent, and relevant. Short and intermodal dispatcher memory, cognition and general fund of knowledge [...] which included preparing to see the patient, zpel-od-qqpc patient care, completing clinical documentation, obtaining and/or reviewing separately obtained history, and counseling and educating the patient/family/caregiver. Snow Brooks APRN.RUTHIE Headache Section [facility] February 16, 2022 12:57 PM documented in this encounterAdena Health System10-27-2022 History of Present illness Narrative* Meera Parker LPN - 02/15/2022 3:04 PM EDT Patient presents for EKG per Dr Brooks. Denies any problems at this time. Tolerated procedure well. Meera Parker LPN documented in this encounterAdena Health System10-11-2022 History of Present illness Narrative* Shaq Bishop PA-C - 01/30/2022 3:07 PM EDT Images from the original note were not included. [facility] NEW PATIENT CLINIC NOTE [...] Plan: Appointment with Shaq. documented in this encounterAdena Health System09-30-2022 Instructions* Patient Instructions* Zeeshan Mahmood APRN.CNP - 01/19/2022 1:32 PM EDT Influenza and COVID given today Levothyroxine [facility] mcg [facility] Repeat TSH on or around 03/21/2022. I will reach out to you with results and instructions. Schedule with [facility]. Zeeshan Mahmood APRN.CNP documented in this encounterAdena Health System09-30-2022 History of Present illness Narrative* Zeeshan Mahmood [...] current specialists seen: Neurology, [facility]; [employer] End of Live Planning [...] Abs Lymph 1.00 - 4.00 k/uL 1.91 [place]% % 5.8 Abs [place] <0.87 k/uL 0.76 Eosin% % 2.1 Abs [...] at this time. - Patient was counseled zdpf-en-eblk by myself (the billing provider) for the [...] UROLOGY Zeeshan Mahmood APRN.CNP documented in this encounterAdena Health System09-19-2022 Miscellaneous Notes* Telephone Encounter - Snow Brooks [...] of office today. Number to return call [phone] Okay to leave a message ? Yes Last office visit 03/22/2021 with Cecilia Next office visit 02/16/2022 with Cecilia Thank you calling [facility] [place]. You will receive a return call within 48hours ( or 2 business days if close to the weekend). If you feel that this is an urgent issue and needs immediate attention, it is recommended that you contact your primary care provider office or proceed to your nearest Urgent Care Center of Emergency Room ED for evaluation/treatment. documented in this encounterAdena Health System09-16-2022 Miscellaneous Notes* Telephone Encounter - Herminia Keith [...] orders. Please advise patient. documented in this encounterAdena Health System06-20-2022 Miscellaneous Notes* Telephone Encounter - Zeeshan Mahmood [...] refills Clara Salter LPN documented in this encounterAdena Health System05-10-2022 Miscellaneous Notes* Telephone Encounter - Jocelyn Madrid Pss - 08/29/2021 4:23 PM EDT Patient last seen 07/03/2021. documented in this encounterAdena Health System01-19-2006 History of Past illness Narrative* Problem Noted Date Resolved Date Diverticulosis of colon (without mention of hemo rrhage) 05/10/2005 02/01/2017 3.1.1 PERIOD UNDETERM W/O INTRACT [346.20] 02/2203/11/2009 documented as of this encounter (statuses as of 08/29/2021) [facility] Narrative* Problem Noted Date Resolved Date Diverticulosis of colon (without mention of hemo rrhage) 05/10/2005 02/01/2017 3.1.1 PERIOD UNDETERM W/O INTRACT [346.20] 02/2203/11/2009 documented as of this encounter (statuses as of 10/09/2021) [facility] Narrative* Problem Noted Date Resolved Date Diverticulosis of colon (without mention of hemo rrhage) 05/10/2005 02/01/2017 3.1.1 PERIOD UNDETERM W/O INTRACT [346.20] 02/2203/11/2009 documented as of this encounter (statuses as of 01/05/2022) [facility] Narrative* Problem Noted Date Resolved Date Diverticulosis of colon (without mention of hemo rrhage) 05/10/2005 02/01/2017 3.1.1 PERIOD UNDETERM W/O INTRACT [346.20] 02/2203/11/2009 documented as of this encounter (statuses as of 01/08/2022) [facility] Narrative* Problem Noted Date Resolved Date Diverticulosis of colon (without mention of hemo rrhage) 05/10/2005 02/01/2017 3.1.1 PERIOD UNDETERM W/O INTRACT [346.20] 02/2203/11/2009 documented as of this encounter (statuses as of 01/19/2022) [address]19-2006 History of Past illness Narrative* Problem Noted Date Resolved Date Diverticulosis of colon (without mention of hemo rrhage) 05/10/2005 02/01/2017 3.1.1 PERIOD UNDETERM W/O INTRACT [346.20] 02/2203/11/2009 documented as of this encounter (statuses as of 01/30/2022) [address]19-2006 History of Past illness Narrative* Problem Noted Date Resolved Date Diverticulosis of colon (without mention of hemo rrhage) 05/10/2005 02/01/2017 3.1.1 PERIOD UNDETERM W/O INTRACT [346.20] 02/2203/11/2009 documented as of this encounter (statuses as of 02/15/2022) [address]19-2006 History of Past illness Narrative* Problem Noted Date Resolved Date Diverticulosis of colon (without mention of hemo rrhage) 05/10/2005 02/01/2017 3.1.1 PERIOD UNDETERM W/O INTRACT [346.20] 02/2203/11/2009 documented as of this encounter (statuses as of 02/16/2022) [address]19-2006 History of Past illness Narrative* Problem Noted Date Resolved Date Diverticulosis of colon (without mention of hemo rrhage) 05/10/2005 02/01/2017 3.1.1 PERIOD UNDETERM W/O INTRACT [346.20] 02/2203/11/2009 documented as of this encounter (statuses as of 02/19/2022) [address]19-2006 History of Past illness Narrative* Problem Noted Date Resolved Date Diverticulosis of colon (without mention of hemo rrhage) 05/10/2005 02/01/2017 3.1.1 PERIOD UNDETERM W/O INTRACT [346.20] 02/2203/11/2009 documented as of this encounter (statuses as of 03/23/2022) [address]19-2006 History of Past illness Narrative* Problem Noted Date Resolved Date Diverticulosis of colon (without mention of hemo rrhage) 05/10/2005 02/01/2017 3.1.1 PERIOD UNDETERM W/O INTRACT [346.20] 02/2203/11/2009 documented as of this encounter (statuses as of 04/03/2022) [address]19-2006 History of Past illness Narrative* Problem Noted Date Resolved Date Diverticulosis of colon (without mention of hemo rrhage) 05/10/2005 02/01/2017 3.1.1 PERIOD UNDETERM W/O INTRACT [346.20] 02/2203/11/2009 documented as of this encounter (statuses as of 05/01/2022) [address] [address] History of Past illness Narrative* Problem Noted Date Resolved Date Diverticulosis of colon (without mention of hemo rrhage) 05/10/2005 02/01/2017 3.1.1 PERIOD UNDETERM W/O INTRACT [346.20] 02/2203/11/2009 documented as of this encounter (statuses as of 06/07/2022) [address] History of Past illness Narrative* Problem Noted Date Diagnosed Date Resolved Date Diverticulosis of colon (wit hout mention of hemorrhage) 05/10/2005 02/01/2017 3.1.1 PERIOD UNDETERM W/O INTRACT [346.20] 02/23/2004 03/11/2009 documented as of this encounter (statuses as of 12/27/2022) [address] History of Past illness Narrative* Problem Noted Date Diagnosed Date Resolved Date Diverticulosis of colon (wit hout mention of hemorrhage) 05/10/2005 02/01/2017 3.1.1 PERIOD UNDETERM W/O INTRACT [346.20] 02/23/2004 03/11/2009 documented as of this encounter (statuses as of 01/22/2023) [address]2006 History of Past illness Narrative* Problem Noted Date Diagnosed Date Resolved Date Diverticulosis of colon (wit hout mention of hemorrhage) 05/10/2005 02/01/2017 3.1.1 PERIOD UNDETERM W/O INTRACT [346.20] 02/23/2004 03/11/2009 documented as of this encounter (statuses as of 01/23/2023) [address]2006 History of Past illness Narrative* Problem Noted Date Diagnosed Date Resolved Date Diverticulosis of colon (wit hout mention of hemorrhage) 05/10/2005 02/01/2017 3.1.1 PERIOD UNDETERM W/O INTRACT [346.20] 02/23/2004 03/11/2009 documented as of this encounter (statuses as of 01/26/2023) [address] History of Past illness Narrative* Problem Noted Date Diagnosed Date Resolved Date Diverticulosis of colon (wit hout mention of hemorrhage) 05/10/2005 02/01/2017 3.1.1 PERIOD UNDETERM W/O INTRACT [346.20] 02/23/2004 03/11/2009 documented as of this encounter (statuses as of 02/01/2023) [facility]2006 History of Past illness Narrative* Problem Noted Date Diagnosed Date Resolved Date Diverticulosis of colon (wit hout mention of hemorrhage) 05/10/2005 02/01/2017 3.1.1 PERIOD UNDETERM W/O INTRACT [346.20] 02/23/2004 03/11/2009 documented as of this encounter (statuses as of 02/18/2023) [address] History of Past illness Narrative* Problem Noted Date Diagnosed Date Resolved Date Diverticulosis of colon (wit hout mention of hemorrhage) 05/10/2005 02/01/2017 3.1.1 PERIOD UNDETERM W/O INTRACT [346.20] 02/23/2004 03/11/2009 documented as of this encounter (statuses as of 03/27/2023) [facility]* Diagnosis Erectile dysfunction due to diseases classified elsewhere [facility] Diagnosis Wellness examination- Primary Other specified hypothyroidism [facility]* Diagnosis Episodic cluster headache, not intractable- Primary Episodic cluster headache [facility]* Diagnosis Medicare annual wellness visit, subsequent- [...] tract symptoms (LUTS) documented in this encounter [facility] note* Diagnosis Post-void dribbling- Primary BPH with obstruction/lower urinary tract symptoms Hypertrophy of prostate with urinary obstruction and other lower urinary tract symptoms (LUTS) [facility]* Diagnosis Episodic cluster headache, not intractable Episodic cluster headache documented in this encounter [facility] note* Diagnosis Episodic cluster headache, not intractable Episodic cluster headache documented in this encounter [facility] note* Diagnosis Episodic cluster headache, not intractable Episodic cluster headache documented in this encounter [facility] note* Diagnosis BPH with obstruction/lower urinary tract symptoms- Primary Hypertrophy of prostate with urinary obstruction and other lower urinary tract symptoms (LUTS) Erectile dysfunction due to diseases classified elsewhere documented in this encounter [facility] note* Diagnosis Episodic cluster headache, not intractable- Primary Episodic cluster headache documented in this encounter [facility] note* Diagnosis Medicare annual wellness visit, subsequent- Primary Routine general medical examination at a [facility] Encounter for immunization Need for other specified prophylactic vaccination against single bacterial disease Acquired hypothyroidism Unspecified hypothyroidism Episodic cluster headache, not intractable Episodic cluster headache BPH with obstruction/lower urinary tract symptoms Hypertrophy of prostate with urinary obstruction and other lower urinary tract symptoms (LUTS) documented in this encounter [facility] note* Diagnosis Episodic cluster headache, not intractable- Primary Episodic cluster headache documented in this encounter [facility] note* Diagnosis Difficulty sleeping- Primary Sleep disturbance, unspecified documented in this encounter [facility] note* Diagnosis URI, acute- Primary Acute upper respiratory infections of unspecified site documented in this encounter [facility] noteNo assessment information availableWRiverview Health Institute Work Phone: Evaluation note* Diagnosis Episodic cluster headache, not intractable Episodic cluster headache documented in this encounter [facility] note* Diagnosis Episodic cluster headache, not intractable- Primary Episodic cluster headache documented in this encounter [facility] note* Diagnosis BPH without obstruction/lower urinary tract symptoms- Primary Hypertrophy of prostate without urinary obstruction and other lower urinary tract symptoms (LUTS) documented [facility]* Diagnosis Acquired hypothyroidism- Primary Unspecified hypothyroidism Medicare annual wellness visit, subsequent Routine general medical examination at a health care facility documented in this encounter [facility] note* Diagnosis Episodic cluster headache, not intractable Episodic cluster headache documented in this encounter [facility] note* Diagnosis Medicare annual wellness visit, subsequent- Primary Routine general medical examination at a health care facility Acquired hypothyroidism Unspecified hypothyroidism Episodic cluster headache, not intractable Episodic cluster headache Encounter for immunization Need for other specified prophylactic vaccination against single bacterial disease Screening for depression Encounter for screening examination for other mental health and behavioral disorders documented in this encounter [facility] note* Diagnosis Episodic cluster headache, not intractable- Primary Episodic cluster headache documented in this encounter [facility] note* Diagnosis Episodic cluster headache, not intractable- Primary Episodic cluster headache documented in this encounter [facility] note* Diagnosis Primary hypertension- Primary Unspecified essential hypertension documented in this encounter [facility] note* Diagnosis Primary hypertension- Primary Unspecified essential hypertension documented in this encounter [facility] note* Diagnosis Acquired hypothyroidism- Primary Unspecified hypothyroidism Primary hypertension Unspecified essential hypertension documented in this encounter [facility] note* Diagnosis Acquired hypothyroidism- Primary Unspecified hypothyroidism Primary hypertension Unspecified essential hypertension Encounter for Medicare annual wellness exam Routine general medical examination at a [facility] Episodic cluster headache, not intractable Episodic cluster headache Benign prostatic hyperplasia without lower urinary tract symptoms documented in this encounter [facility] note* Diagnosis BPH without obstruction/lower urinary tract symptoms- Primary Hypertrophy of prostate without urinary obstruction and other lower urinary tract symptoms (LUTS) Screening for genitourinary condition Screening for other and unspecified genitourinary condition documented in this encounter [facility] for referral (narrative)* Outpatient Procedure (Routine) - Pending Review Specialty Diagnoses / Procedures Referred By Juventino gtz [facility] Diagnoses Episodic cluster headache, not intractable Procedures ECG COMPLETE ECG ROUTINE ECG W/LEAST 12 LDS W/I&R Snow Brooks, SUGAR CANE GROWER.OPTIONS ADVISOR [address] [place] [address] [facility] [place] [address] [place] [address] Referral ID Status Reason Start Date Expiration Date Visits Requested Visits Authorized [id number] Pending Review Auto-Generat ed Referral 01/08/2022 01/08/2023 1 1 [facility] for referral (narrative)* Outpatient Procedure (Routine) - Pending Review Specialty Diagnoses / Procedures Referred By Contac t Referred To Contact [facility] Diagnoses Episodic cluster headache, not intractable Procedures ECG COMPLETE ECG ROUTINE ECG W/LEAST 12 LDS W/I&R Snow Brooks APRN.CNP [address] [place] [address] [facility] [address] [place] [id number] Referral ID Status Reason Start Date Expiration Date Visits Requested Visits Authorized [id number] Pending Review Auto-Generat ed Referral 01/21/2023 01/21/2024 1 1 [facility] for referral (narrative)* Outpatient Procedure (Routine) - New Request Specialty Diagnoses / Procedures Referred By Contac t Referred To Contact [facility] Diagnoses Episodic cluster headache, not intractable Procedures ECG COMPLETE ECG ROUTINE ECG W/LEAST 12 LDS W/I&R Snow Brooks APRN.CNP [address] [place] [address] [facility] [address] [place] [address] Referral ID Status Reason Start Date Expiration Date Visits Requested Visits Authorized [id number] New Request Auto-Generat ed Referral 12/09/2023 12/08/2024 1 1 [facility] Summary Purpose Family History No Family History Records FoundNo Family History Records FoundNo Family History Records FoundNo Family History Records Found Advance Directives No Advanced Directives Records FoundDocuments on File Type Date Recorded 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 Advance Directive(s) 01/20/2018 7:56 AM Advance Directive(s) 06/09/2013 12:43 PM Advance Directive(s) 11/24/2007 12:00 AM Documents on File Type Date 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 Advance Directive(s) 06/09/2013 12:43 PM Advance Directive(s) 11/24/2007 Documents on File Type Date Recorded 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 Advance Directive(s) 06/09/2013 12:43 PM Advance Directive(s) 11/24/2007 Advance Directive Response Recorded Date/ Time Living Will No July 14, 2023 9:28am Power of Bindery Machine Setter No July 13 9:28am Reason for Referral Specialty Diagnoses / Procedures Referred By Contac t Referred To Contact Urology Diagnoses BPH with obstruction/lower urinary tract symptoms Procedures CONSULT TO UROLOGY OFFICE/OUTPATIENT [facility] 60-74 MINUTES Zeeshan Mahmood APRN.OPTIONS ADVISOR [address] [place] [address] Referral ID Status Reason Start Date Expiration Date Visits Requested Visits Authorized [id number] Pending Review PCP Requested Referral 01/19/2022 01/19/2023 1 1 Health Concerns Infection Onset Date Last Indicated Resolved Time COVID-19 Rule-Out 03/27/2023 03/27/2023 Chief Complaint and Reason for Visit Chief Complaint nosebleed Additional Source Comments (unrecognized sect ion and content) No Status Records FoundNo Status Records FoundNo Status Records FoundNo Status Records Found INFORMATION SOURCE (unrecogn ized section and content) DATE CREATED AUTHOR 02/03/2019 [facility] DATE CREATED AUTHOR AUTHOR'S ORGANIZ ATION 02/27/2025 [facility] DATE CREATED AUTHOR AUTHOR'S ORGANIZ ATION 03/03/2025 [facility] DATE CREATED AUTHOR AUTHOR'S ORGANIZ ATION 03/04/2025 [facility] Source Comments (unrecognize d section and content) In the event this informatio n is protected by the Federal Confidentiality of Alcohol and Drug Abuse Patient Records regulations: The Federal rules restrict any use of the information to criminally investigate or prosecute any alcohol or drug abuse patient.[facility] the event this information is protected by the Federal Confidentiality of Alcohol and Drug Abuse Patient Records regulations: The Federal rules restrict any use of the information to criminally investigate or prosecute any alcohol or drug abuse patient.[facility] SystemIn the event this information is protected by the Federal Confidentiality of Alcohol and Drug Abuse Patient Records regulations: The Federal rules restrict any use of the information to criminally investigate or prosecute any alcohol or drug abuse patient.[facility] SystemIn the event this information is protected by the Federal Confidentiality of Alcohol and Drug Abuse Patient Records regulations: The Federal rules restrict any use of the information to criminally investigate or prosecute any alcohol or drug abuse patient.[facility] SystemIn the event this information is protected by the Federal Confidentiality of Alcohol and Drug Abuse Patient Records regulations: The Federal rules restrict any use of the information to criminally investigate or prosecute any alcohol or drug abuse patient.[facility] SystemIn the event this information is protected by the Federal Confidentiality of Alcohol and Drug Abuse Patient Records regulations: The Federal rules restrict any use of the information to criminally investigate or prosecute any alcohol or drug abuse patient.[facility] SystemIn the event this information is protected by the Federal Confidentiality of Alcohol and Drug Abuse Patient Records regulations: The Federal rules restrict any use of the information to criminally investigate or prosecute any alcohol or drug abuse patient.[facility] SystemIn the event this information is protected by the Federal Confidentiality of Alcohol and Drug Abuse Patient Records regulations: The Federal rules restrict any use of the information to criminally investigate or prosecute any alcohol or drug abuse patient.[facility] SystemIn the event this information is protected by the Federal Confidentiality of Alcohol and Drug Abuse Patient Records regulations: The Federal rules restrict any use of the information to criminally investigate or prosecute any alcohol or drug abuse patient.[facility] SystemIn the event this information is protected by the Federal Confidentiality of Alcohol and Drug Abuse Patient Records regulations: The Federal rules restrict any use of the information to criminally investigate or prosecute any alcohol or drug abuse patient.[facility] SystemIn the event this information is protected by the Federal Confidentiality of Alcohol and Drug Abuse Patient Records regulations: The Federal rules restrict any use of the information to criminally investigate or prosecute any alcohol or drug abuse patient.[facility] SystemIn the event this information is protected by the Federal Confidentiality of Alcohol and Drug Abuse Patient Records regulations: The Federal rules restrict any use of the information to criminally investigate or prosecute any alcohol or drug abuse patient.[facility] SystemIn the event this information is protected by the Federal Confidentiality of Alcohol and Drug Abuse Patient Records regulations: The Federal rules restrict any use of the information to criminally investigate or prosecute any alcohol or drug abuse patient.[facility] SystemIn the event this information is protected by the Federal Confidentiality of Alcohol and Drug Abuse Patient Records regulations: The Federal rules restrict any use of the information to criminally investigate or prosecute any alcohol or drug abuse patient.[facility] SystemIn the event this information is protected by the Federal Confidentiality of Alcohol and Drug Abuse Patient Records regulations: The Federal rules restrict any use of the information to criminally investigate or prosecute any alcohol or drug abuse patient.[facility] SystemIn the event this information is protected by the Federal Confidentiality of Alcohol and Drug Abuse Patient Records regulations: The Federal rules restrict any use of the information to criminally investigate or prosecute any alcohol or drug abuse patient.[facility] SystemIn the event this information is protected by the Federal Confidentiality of Alcohol and Drug Abuse Patient Records regulations: The Federal rules restrict any use of the information to criminally investigate or prosecute any alcohol or drug abuse patient.[facility] SystemIn the event this information is protected by the Federal Confidentiality of Alcohol and Drug Abuse Patient Records regulations: The Federal rules restrict any use of the information to criminally investigate or prosecute any alcohol or drug abuse patient.[facility] SystemIn the event this information is protected by the Federal Confidentiality of Alcohol and Drug Abuse Patient Records regulations: The Federal rules restrict any use of the information to criminally investigate or prosecute any alcohol or drug abuse patient.[facility] SystemIn the event this information is protected by the Federal Confidentiality of Alcohol and Drug Abuse Patient Records regulations: The Federal rules restrict any use of the information to criminally investigate or prosecute any alcohol or drug abuse patient.[facility] SystemIn the event this information is protected by the Federal Confidentiality of Alcohol and Drug Abuse Patient Records regulations: The Federal rules restrict any use of the information to criminally investigate or prosecute any alcohol or drug abuse patient.[facility] SystemIn the event this information is protected by the Federal Confidentiality of Alcohol and Drug Abuse Patient Records regulations: The Federal rules restrict any use of the information to criminally investigate or prosecute any alcohol or drug abuse patient.[facility] SystemIn the event this information is protected by the Federal Confidentiality of Alcohol and Drug Abuse Patient Records regulations: The Federal rules restrict any use of the information to criminally investigate or prosecute any alcohol or drug abuse patient.[facility] SystemIn the event this information is protected by the Federal Confidentiality of Alcohol and Drug Abuse Patient Records regulations: The Federal rules restrict any use of the information to criminally investigate or prosecute any alcohol or drug abuse patient.[facility] SystemIn the event this information is protected by the Federal Confidentiality of Alcohol and Drug Abuse Patient Records regulations: The Federal rules restrict any use of the information to criminally investigate or prosecute any alcohol or drug abuse patient.[facility] SystemIn the event this information is protected by the Federal Confidentiality of Alcohol and Drug Abuse Patient Records regulations: The Federal rules restrict any use of the information to criminally investigate or prosecute any alcohol or drug abuse patient.[facility] SystemIn the event this information is protected by the Federal Confidentiality of Alcohol and Drug Abuse Patient Records regulations: The Federal rules restrict any use of the information to criminally investigate or prosecute any alcohol or drug abuse patient.[facility] SystemIn the event this information is protected by the Federal Confidentiality of Alcohol and Drug Abuse Patient Records regulations: The Federal rules restrict any use of the information to criminally investigate or prosecute any alcohol or drug abuse patient.[facility] SystemIn the event this information is protected by the Federal Confidentiality of Alcohol and Drug Abuse Patient Records regulations: The Federal rules restrict any use of the information to criminally investigate or prosecute any alcohol or drug abuse patient.[facility] SystemIn the event this information is protected by the Federal Confidentiality of Alcohol and Drug Abuse Patient Records regulations: The Federal rules restrict any use of the information to criminally investigate or prosecute any alcohol or drug abuse patient.[facility] SystemIn the event this information is protected by the Federal Confidentiality of Alcohol and Drug Abuse Patient Records regulations: The Federal rules restrict any use of the information to criminally investigate or prosecute any alcohol or drug abuse patient.[facility] SystemIn the event this information is protected by the Federal Confidentiality of Alcohol and Drug Abuse Patient Records regulations: The Federal rules restrict any use of the information to criminally investigate or prosecute any alcohol or drug abuse patient.[facility] SystemIn the event this information is protected by the Federal Confidentiality of Alcohol and Drug Abuse Patient Records regulations: The Federal rules restrict any use of the information to criminally investigate or prosecute any alcohol or drug abuse patient.[facility] SystemIn the event this information is protected by the Federal Confidentiality of Alcohol and Drug Abuse Patient Records regulations: The Federal rules restrict any use of the information to criminally investigate or prosecute any alcohol or drug abuse patient.[facility] SystemIn the event this information is protected by the Federal Confidentiality of Alcohol and Drug Abuse Patient Records regulations: The Federal rules restrict any use of the information to criminally investigate or prosecute any alcohol or drug abuse patient.[facility] SystemIn the event this information is protected by the Federal Confidentiality of Alcohol and Drug Abuse Patient Records regulations: The Federal rules restrict any use of the information to criminally investigate or prosecute any alcohol or drug abuse patient.[facility] Care Teams (unrecognized sec tion and content) Sorting And Folding Supervisor Relationship Specialty Start Date End Date Jeremias Damico MD [address] [place] [address] PCP - General Family Practice 04/27/15 Sorting And Folding Supervisor Relationship Specialty Start Date End Date Jeremias Damico MD [address] [place] [id number] PCP - General Family Practice 04/27/15 Sorting And Folding Supervisor Relationship Specialty Start Date End Date Jeremias Damico MD [address] [place] [id number] PCP - General Family Practice 04/27/15 Sorting And Folding Supervisor Relationship Specialty Start Date End Date Jeremias Damico MD [facility] [place] [address] PCP - General Family Practice 04/27/15 Sorting And Folding Supervisor Relationship Specialty Start Date End Date Jeremias Damico MD [facility] [place] [address] PCP - General Family Medicine 04/27/15 Sorting And Folding Supervisor Relationship Specialty Start Date End Date Jeremias Damico MD [facility] [place] [address] PCP - General Family Medicine 04/27/15 Sorting And Folding Supervisor Relationship Specialty Start Date End Date Jeremias Damico MD [facility] [place] [address] PCP - General Family Medicine 04/27/15 Sorting And Folding Supervisor Relationship Specialty Start Date End Date Jeremias Damico MD [address] [place] [address] [place] [address] PCP - General Family Medicine 04/27/15 Sorting And Folding Supervisor Relationship Specialty Start Date End Date Jeremias Damico MD [address] [place] [address] PCP - General Family Medicine 04/27/15 Sorting And Folding Supervisor Relationship Specialty Start Date End Date Jeremias Damico MD [address] [place] [address] PCP - General Family Medicine 04/27/15 Sorting And Folding Supervisor Relationship Specialty Start Date End Date Jeremias Damico MD [address] [place] [address] PCP - General Family Medicine 04/27/15 Sorting And Folding Supervisor Relationship Specialty Start Date End Date Jeremias Damico MD [address] [place] [address] PCP - General Family Medicine 04/27/15 Sorting And Folding Supervisor Relationship Specialty Start Date End Date Jeremias Damico MD [address] [place] [address] PCP - General Family Medicine 04/27/15 Sorting And Folding Supervisor Relationship Specialty Start Date End Date Jeremias Damico MD [address] [place] [address] PCP - General Family Medicine 04/27/15 Sorting And Folding Supervisor Relationship Specialty Start Date End Date Jeremias Damico MD [address] [place] [address] PCP - General Family Medicine 04/27/15 Sorting And Folding Supervisor Relationship Specialty Start Date End Date Jeremias Damico MD [address] [place] [address] PCP - General Family Medicine 04/27/15 Sorting And Folding Supervisor Relationship Specialty Start Date End Date Jeremias Damico MD [address] [place] [address] PCP - General Family Medicine 04/27/15 Sorting And Folding Supervisor Relationship Specialty Start Date End Date Jeremias Damico MD [address] [place] [address] PCP - General Family Medicine 04/27/15 Team Status: Active Member Role Status Dates Dr. Jeremias Damico MD Family Provider Active Dr. Jeremias Damico MD Primary Care Provider Active Team Status: Inactive Member Role Status Dates Dr. Jeremias Damico MD Primary Care Provider Active Dr. Salomon Marquez MD Emergency Provider Active Sorting And Folding Supervisor Relationship Specialty Start Date End Date Jeremias Damico MD [address] [place] [address] PCP - General Family Medicine 04/27/15 Sorting And Folding Supervisor Relationship Specialty Start Date End Date Jeremias Damico MD [address] [place] [address] PCP - General Family Medicine 04/27/15 Sorting And Folding Supervisor Relationship Specialty Start Date End Date Jeremias Damico MD [address] [place] [address] PCP - General Family Medicine 04/27/15 Sorting And Folding Supervisor Relationship Specialty Start Date End Date Jeremias Damico MD [address] [place] [address] PCP - General Family Medicine 04/27/15 Sorting And Folding Supervisor Relationship Specialty Start Date End Date Jeremias Damico MD [address] [facility] [place] [address] PCP - General Family Medicine 04/27/15 Sorting And Folding Supervisor Relationship Specialty Start Date End Date Jeremias Damico MD [address] [facility] [address] PCP - General Family Medicine 04/27/15 Sorting And Folding Supervisor Relationship Specialty Start Date End Date Jeremias Damico MD [address] [facility] [place] [address] PCP - General Family Medicine 04/27/15 Diana Shook, NIDHI.OPTIONS ADVISOR [address] [facility] [place] [address] Technical Project Coordinator Family Medicine 03/29/24 Zeeshan Mahmood SUGAR CANE GROWER.OPTIONS ADVISOR [address] [facility] [place] [address] Technical Project Coordinator Family Medicine 04/07/24 Sorting And Folding Supervisor Relationship Specialty Start Date End Date Jeremias Damico MD [address] [facility] [place] [address] PCP - General Family Medicine 04/27/15 Diana Shook SUGAR CANE GROWER.OPTIONS ADVISOR [address] [facility] [place] [address] Technical Project Coordinator Family Medicine 03/29/24 Zeeshan Mahmood SUGAR CANE GROWER.OPTIONS ADVISOR [address] [facility] [place] [address] Technical Project Coordinator Family Medicine 04/07/24 Sorting And Folding Supervisor Relationship Specialty Start Date End Date Jeremias Damico MD [address] [facility] [place] [address] PCP - General Family Medicine 04/27/15 Diana Shook, SUGAR CANE GROWER.OPTIONS ADVISOR [address] [place] [address] Technical Project Coordinator Family Medicine 03/29/24 Zeeshan Mahmood APRN.OPTIONS ADVISOR [address] [facility] [place] [address] Technical Project Coordinator Family Medicine 04/07/24 Sorting And Folding Supervisor Relationship Specialty Start Date End Date Jeremias Damico MD [address] [place] [address] PCP - General Family Medicine 04/27/15 Zeeshan Mahmood, SUGAR CANE GROWER.OPTIONS ADVISOR [address] [place] [address] Technical Project Coordinator Family Medicine 04/07/24 Sorting And Folding Supervisor Relationship Specialty Start Date End Date Jeremias Damico MD [address] [place] [address] PCP - General Family Medicine 04/27/15 Zeeshan Mahmood, SUGAR CANE GROWER.OPTIONS ADVISOR [address] [place] [address] Technical Project Coordinator Family Medicine 04/07/24 Sorting And Folding Supervisor Relationship Specialty Start Date End Date Jeremias Damico MD [address] [place] [address] PCP - General Family Medicine 04/27/15 Zeeshan Mahmood APRN.OPTIONS ADVISOR [address] [facility] [place] [address] Technical Project Coordinator Family Medicine 04/07/24 Sorting And Folding Supervisor Relationship Specialty Start Date End Date Jeremias Damico MD [address] [place] [address] PCP - General Family Medicine 04/27/15 Zeeshan Mahmood APRN.OPTIONS ADVISOR [address] [place] [address] Technical Project Coordinator Family Medicine 04/07/24 Reason for Visit (unrecogniz [...] tract symptoms Procedures CONSULT TO UROLOGY OFFICE/OUTPATIENT [facility] 60-74 MINUTES Zeeshan Mahmood APRN.OPTIONS ADVISOR [address] [place] [address] Referral ID Status Reason Start Date Expiration Date Visits Requested Visits Authorized [id number] Pending Review PCP Requested Referral 01/19/2022 01/19/2023 1 1 Reason Comments EKG Specialty Diagnoses / Procedures Referred By Juventino gtz Referred To Contact [facility] Diagnoses Episodic cluster headache, not intractable Procedures ECG COMPLETE ECG ROUTINE ECG W/LEAST 12 LDS W/I&R Snow Brooks, SUGAR CANE GROWER.OPTIONS ADVISOR [address] [place] [address] [facility] [place] [address] [place] [address] Referral ID Status Reason Start Date Expiration Date V isits Requested Visits Authorized [id number] Closed Auto-Generate d Referral 01/08/2022 01/08/2023 1 [...] Expiration Date V isits Requested Visits Authorized [id number] Closed Auto-Generate d Referral 12/09/2023 12/08/2024 1 [...] BE BASED ON THE PRIMARY CLINICAL RECORDS. [employer] [facility]. provides no warranty or guarantee of the accuracy or completeness of information in this document.
--- NOTE | 2025-03-26 16:30 | EGD_PTH ---
PATIENT: ELSA ARMENDARIZ LOC: EN U#:[id number] AGE/SX: 85/M ROOM: RE03/26/[address]: Dr. Williams Small DO : 1940 BED: DIS: 03/26/2025 SPEC #: [id number] RECD: 03/29/25 07:53 STATUS: MARLIN REPaola #: [id number] AUBREE: 03/26/25 16:[address]: Williams Small DEPT: SURGICAL PATHOLOGY RECD BY: Timur Bloom ENTERED: 03/29/25 11:30 SP TYPE: EGD BIOPSY CUAUHTEMOC DR: Dr. Daniel Damico MD Tissues: A - Gastric mucous membrane Procedures: Immunohistochemical Stains Surgery Specimen Level IV HEADER OPERATION: EGD, biopsy, electrohemostasis PRE-OP DIAGNOSIS: Anemia TISSUE SUBMITTED: A- Gastric body biopsy MICROSCOPIC DIAGNOSIS A. Stomach, body, biopsy: - Oxyntic mucosa with polypoid foveolar hyperplasia and active chronic inflammation. - IHC negative for H. pylori organisms. MICROSCOPIC DESCRIPTION Slides are reviewed. All matched controls reacted appropriately. These tests were developed and their performance characteristics determined by [facility]. They may not have been cleared or approved by the U.S. Food and Drug Administration. The FDA has determined that such clearance or approval is not necessary. The above immunohistochemical markers and/or special?stains have been reviewed by the Pathologist. GROSS DESCRIPTION A. Received in fixative is one container labeled with the patient's name and designated Gastric body biopsy. The specimen consists of two irregular fragments of quezada tissue, each measuring 0.5 cm. The specimen is totally submitted in one cassette. [place] 03/29/2025 CPT:23421,92964
[2025-03-26] MEDS: Lidocaine 1% (5 ml sdv) 5 ML Vial IV (16:43)
--- NOTE | 2025-03-26 17:00 | PCM.POST.ANE ---
Anesthesia: Postop Eval I Current Vital Signs Temperature: 97 F Pulse Rate: 109 Blood Pressure: 106/79 Respiratory Rate: 28 Pulse Ox: 97 Oxygen Delivery Method: Room Air Assessment Airway patent: Yes Spontaneous unlabored respirations: Yes Mental status: Awake and Calm nausea: No Vomiting: No Anesthesia Complication: No Fluid Hydration Crystalloid volume administer (ml): 200 Total IV fluid infused: 200 Progress Note Anesthesia document: Postop Eval 1 completed: Yes
[2025-03-26 17:01] VITALS: BP 106/79; PULSE 109; RESP 28; TEMP 36.1; O2SAT 97
[2025-03-26 17:03] VITALS: BP 106/79; BP 117/64; PULSE 117; RESP 18; TEMP 37.1; O2SAT 97
--- NOTE | 2025-03-26 17:03 | OP.PROVAT_ITS ---
03/26/2025 Daniel Damico [address] [place] [address] Re : Upper GI endoscopy procedure for Hank Favianliss Dear Dr. Daimco This procedure was performed on Wednesday, March 26, 2025. My impressions and recommendations are as follows: Impressions : - No gross lesions in the entire esophagus. - Chronic gastritis. Biopsied. - Multiple gastric polyps. Treated with a heater probe. - No gross lesions in the entire examined duodenum. Recommendations : - Discharge patient to home. - Resume previous diet. - Continue present medications. - Await pathology results. - Use Protonix (pantoprazole) 40 mg PO BID for 3 months. My findings are described in the full procedure note, which is enclosed. If I can be of further assistance, please feel free to contact me at . Sincerely, Williams Small, 03/26/2025 5:02:54 PM This report has been signed electronically.
--- NOTE | 2025-03-26 17:03 | OP.EGD_ITS ---
Patient Name: Hank Palacio Procedure Date: 03/26/2025 4:39 PM Date of : 1940 Age: 85 Procedure: Upper GI endoscopy Indications: Epigastric abdominal pain, Iron deficiency anemia, Heme positive stool, Recent gastrointestinal bleeding, Suspected upper gastrointestinal bleeding Providers: Williams Small DO Medicines: Monitored Anesthesia Care Patient Profile: This is an 85 year old male. Refer to note in patient chart for documentation of history and physical. Complications: No immediate complications. Procedure: Pre-Anesthesia Assessment: - Prior to the procedure, a History and Physical was performed, and patient medications and allergies were reviewed. The patient is competent. The risks and benefits of the procedure and the sedation options and risks were discussed with the patient. All questions were answered and informed consent was obtained. Patient identification and proposed procedure were verified by the physician in the pre-procedure area. Mental Status Examination: alert and oriented. Airway Examination: normal oropharyngeal airway and neck mobility. Respiratory Examination: clear to auscultation. CV Examination: normal. Prophylactic Antibiotics: The patient does not require prophylactic antibiotics. Prior Anticoagulants: The patient has taken no anticoagulant or antiplatelet agents. ASA Grade Assessment: II - A patient with mild systemic disease. After reviewing the risks and benefits, the patient was deemed in satisfactory condition to undergo the procedure. The anesthesia plan was to use monitored anesthesia care (MAC). Immediately prior to administration of medications, the patient was re-assessed for adequacy to receive sedatives. The heart rate, respiratory rate, oxygen saturations, blood pressure, adequacy of pulmonary ventilation, and response to care were monitored throughout the procedure. The physical status of the patient was re-assessed after the procedure. After obtaining informed consent, the endoscope was passed under direct vision. Throughout the procedure, the patient's blood pressure, pulse, and oxygen saturations were monitored continuously. The Endoscope was introduced through the mouth, and advanced to the fourth part of the duodenum. Small bowel enteroscopy was deemed necessary. The upper GI endoscopy was accomplished without difficulty. The patient tolerated the procedure well. Scope In: 4:52:44 PM Scope Out: 4:57:53 PM Total Procedure Duration Time 0 hours 5 minutes 9 seconds Findings: No gross lesions were noted in the entire esophagus. Localized severe inflammation characterized by erosions, erythema, friability and granularity was found in the cardia. Biopsies were taken with a cold forceps for histology. Biopsies were taken with a cold forceps for Helicobacter pylori testing. Verification of patient identification for the specimen was done. Estimated blood loss: none. Multiple 5 mm sessile polyps with bleeding and stigmata of recent bleeding were found in the gastric fundus and on the greater curvature of the stomach. Coagulation for hemostasis using heater probe was successful. Estimated blood loss was minimal. No gross lesions were noted in the entire examined duodenum. Impression: - No gross lesions in the entire esophagus. - Chronic gastritis. Biopsied. - Multiple gastric polyps. Treated with a heater probe. - No gross lesions in the entire examined duodenum. Recommendation: - Discharge patient to home. - Resume previous diet. - Continue present medications. - Await pathology results. - Use Protonix (pantoprazole) 40 mg PO BID for 3 months. Procedure Code(s): --- Professional --- 68401, 59, Small intestinal endoscopy, enteroscopy beyond second portion of duodenum, not including ileum; with control of bleeding (eg, injection, bipolar cautery, unipolar cautery, laser, heater probe, stapler, plasma interactive project manager) 91427, 51, Small intestinal endoscopy, enteroscopy beyond second portion of duodenum, not including ileum; with biopsy, single or multiple CPT copyright 2021 [employer]. All rights reserved. The codes documented in this report are preliminary and upon medical records coder review may be revised to meet current compliance requirements. Williams Small DO 03/26/2025 5:02:54 PM This report has been signed electronically. Number of Addenda: 0 Note Initiated On: 03/26/2025 4:39 PM
[2025-03-26 17:05] VITALS: BP 106/79; BP 111/74; PULSE 101; RESP 18; O2SAT 97
--- NOTE | 2025-03-26 17:06 | POSTOPAN2_ITS ---
Anesthesia Postop Eval I Sum Postop Eval Completion status Anesthesia document: Postop Eval 1 completed: Yes Anesthesia Postop Eval I Summary Anesthesia Postop Eval I Summary: Anesthesia Postop Eval I: Assessment Summary Airway patent Yes 03/26/25 17:01 [email or web address] Spontaneous unlabored Yes 03/26/25 17:01 [email or web address] [email or web address].MDOT respirations Mental status Awake,Calm 03/26/25 17:01 [email or web address].MDOT nausea No 03/26/25 17:01 [email or web address].MDOT Vomiting No 03/26/25 17:01 [email or web address] Anesthesia Postop Eval I: Fluid Summary Crystalloid volume administer 200 03/26/25 17:01 PLASTIC [email or web address].MDOT (ml) Colloids volume administered ( ml) Blood Product volume administered (ml) Total IV fluid infused 200 03/26/25 17:01 [email or web address] Anesthesia Postop Eval I: Summary Notes Anesthesia Complication No 03/26/25 17:01 [email or web address] Anesthesia Complication Comment: Post-operative progress note Anesthesia: Postop Eval II Evaluation Mental status: Awake and Calm Pain Level: 0 nausea: No Vomiting: No Complications Anesthesia Complication: No
--- NOTE | 2025-03-26 17:06 | PCM.POSTANE2 ---
Anesthesia Postop Eval I Sum Postop Eval Completion status Anesthesia document: Postop Eval 1 completed: Yes Anesthesia Postop Eval I Summary Anesthesia Postop Eval I Summary: Anesthesia Postop Eval I: Assessment Summary Airway patent Yes 03/26/25 17:01 [email or web address] [email or web address] Spontaneous unlabored Yes 03/26/25 17:01 BALL MAKER.MDOT respirations Mental status Awake,Calm 03/26/25 17:01 BALL [email or web address].MDOT nausea No 03/26/25 17:01 BALL MAKER.MDOT Vomiting No 03/26/25 17:01 BALL [email or web address] Anesthesia Postop Eval I: Fluid Summary Crystalloid volume administer 200 03/26/25 17:01 BALL MAKER.MDOT (ml) Colloids volume administered ( ml) Blood Product volume administered (ml) Total IV fluid infused 200 03/26/25 17:01 BALL MAKER.MDOT Anesthesia Postop Eval I: Summary Notes Anesthesia Complication No 03/26/25 17:01 BALL [email or web address].MDOT Anesthesia Complication Comment: Post-operative progress note Anesthesia: Postop Eval II Evaluation Mental status: Awake and Calm Pain Level: 0 nausea: No Vomiting: No Complications Anesthesia Complication: No
--- NOTE | 2025-03-26 17:07 | PCM.HP.STD ---
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 Prior history: Cardiac/Surgical: Initial presentation with new onset dyspnea on exertion (CAMPOS) and chest pain after walking 2 blocks, culminating in NSTEMI diagnosis (Troponin 210). Successfully underwent CABG x 4. Reports no active chest pain or acute shortness of breath (SOB) since 02/26. Currently managed for post-operative atrial fibrillation (Afib) with Eliquis (started 03/09) and low-dose Metoprolol. Managed for Acute Heart Failure with preserved Ejection Fraction (HFpEF) with Lasix and fluid restriction, with reported improvement (03/16). Neuro: Experienced transient Dysarthria with negative CT/CTA for stroke (03/06). Currently has no reported acute neurological symptoms. Infectious/Pulmonary: Developed a dry cough (03/15), positive for Parainfluenza virus (03/16). Chest imaging shows moderate left pleural effusion, atelectasis versus infiltrate. Reports no fever or productive cough. Gastrointestinal/Nutrition: Significant issue with poor appetite/anorexia leading to 7 days of NPO/poor intake (03/07).He received concentrated tube feeds (TF) via [place] (placed 03/11) for nutritional support. Reports positive bowel movement (03/08) with ongoing bowel regimen. Functional Status: Reports feeling better and tolerating walking with staff (03/09).] His hemoglobin has been continually going down since being in a transitional care unit and I was consulted for anemia in the setting of anticoagulation and antiplatelet therapy. ] [facility] Medical History Hypertension Home Medications ?Medication ?Instructions ?Recorded ?Last Taken ?Type tamsulosin 0.4 mg capsule 0.8 mg PO QHS prostate 11/04/19 07/14/23 History aspirin 81 mg tablet,delayed 81 mg PO BREAKFAST pSivida #0 02/24/25 Unknown Rx release tabs atorvastatin 40 mg tablet 40 mg PO QHS cholesterol #0 tabs 02/24/25 Unknown Rx finasteride 5 mg tablet 5 mg PO QHS prostate 02/24/25 02/23/25 History levothyroxine 100 mcg tablet 100 mcg PO DAILY thyroid 02/24/25 02/24/25 History (Synthroid) losartan 100 mg tablet 75 mg PO QHS BP 02/24/25 02/23/25 History melatonin 3 mg capsule 9 mg PO QHS sleep 02/24/25 02/23/25 History metoprolol tartrate 25 mg tablet 25 mg PO BID BP #0 tabs 02/24/25 Unknown Rx multivit,Ca,min-iron 8 mg-folic 1 tab PO DAILY supplement 02/24/25 02/24/25 History acid 200 mcg-lycopene 600 mcg tablet (Men's Daily Multivitamin) verapamil 120 mg tablet,extended 120 mg PO QHS bp 02/24/25 Unknown History release acetaminophen 500 mg tablet 500 mg PO Q6H PRN pain 1-10 or 03/19/25 Unknown History fever albuterol sulfate 2.5 mg/3 mL 2.5 mg inhalation Q2H PRN 03/19/25 Unknown History (0.083 %) solution for nebulization shortness of breath or wheezing apixaban 5 mg (74 tabs) tablets in 5 mg PO BID blood thinner 03/19/25 Unknown History a dose pack furosemide 40 mg tablet (Lasix) 40 mg PO DAILY water retention 03/19/25 Unknown History guaifenesin 600 mg tablet, 600 mg PO BID congestion 03/19/25 Unknown History extended release 12 hr (Mucinex) insulin lispro 100 unit/mL 1 unit subcut ACHS diabetes 03/19/25 Unknown History subcutaneous pen (Humalog KwikPen (U-100) Insulin) ipratropium 0.5 mg-albuterol 3 mg 3 ml inhalation TID lungs 03/19/25 Unknown History (2.5 mg base)/3 mL nebulization soln lidocaine 4 % topical patch 1 patch topical Q24H pain 03/19/25 Unknown History mirtazapine 7.5 mg tablet 7.5 mg PO QHS sleep 03/19/25 Unknown History ondansetron HCl 4 mg/5 mL oral 4 mg PO Q6H PRN nausea and vomiting 03/19/25 Unknown History solution pantoprazole 40 mg tablet,delayed 40 mg PO DAILY acid reflux 03/19/25 Unknown History release polyethylene glycol 3350 17 gram 17 g PO DAILY bowels 03/19/25 Unknown History oral powder packet (Miralax) sennosides 8.6 mg-docusate sodium 2 tab-cap PO DAILY constipation 03/19/25 Unknown History 50 mg tablet (Senna with Docusate Sodium) Allergy/AdvReac Type Severity Reaction Status Date / Time Penicillins Allergy NEEDS Verified 02/24/25 07:51 FOLLOW-UP fermented products Allergy NEEDS Uncoded 11/04/19 10:09 FOLLOW-UP Family History Mother Congestive heart failure Father Colon cancer Surgical History History of hand surgery History of left breast biopsy History of colonoscopy History of meniscectomy of left knee Social History household members: spouse Smoking Status: Former smoker alcohol intake: never substance use type: does not use ROS Constitutional Constitutional: Denies fatigue, fever(s), poor appetite, weight gain or weight loss Gastrointestinal Gastrointestinal: Denies belching, bloating, change in bowel habits, change in stool character, chewing difficulty, coffee ground emesis, constipation, cramping, diarrhea, dyspepsia, dysphagia, early satiety, excessive flatus, fecal incontinence, heartburn, hematemesis, hematochezia, hemorrhoids, loose stools, melena, nausea, odynophagia, rectal bleeding, tenesmus, vomiting or weight changes Vital Signs Vital Signs Vital Signs: 03/26/25 17:01 03/26/25 17:03 03/26/25 17:05 Temperature 97 F L 98.7 F Temperature Source Temporal Pulse Rate 109 H 117 H 101 H Respiratory Rate 28 H 18 18 Respiratory Pattern Normal Blood Pressure 106/79 117/64 111/74 Blood Pressure Mean 81 86 Blood Pressure Source Monitor Monitor Blood Pressure Position Semi-Fowlers Semi-Fowlers Blood Pressure Location Right Arm Right Arm Baseline BP 106/79 106/79 Pulse Ox 97 97 97 Oxygen Delivery Method Room Air Room Air Room Air Physical Exam Const alert, oriented x3, no apparent distress and healthy appearing General Appearance: cooperative GI normal to inspection, nondistended, normoactive bowel sounds, soft to palpation, non-tender and non-distended Percussion: normal to percussion Rectal Exam: deferred Assessment & Plan Assessment/Plan (1) Anemia: PLAN: Assessment & Plan Assessment/Plan (1) Anemia: PLAN: He will undergo endoscopic evaluation of his upper GI tract and possibly colonoscopy in the future. He was explained alternatives, risk and benefits include not withstanding bleeding, infection, subs, perforation, need for such a . He will have an ASA of 3. Please keep n.p.o. past midnight.
[2025-03-26 17:10] VITALS: BP 101/78; BP 106/79; PULSE 105; RESP 18; O2SAT 97
[2025-03-26 17:15] VITALS: BP 106/79; BP 117/84; PULSE 104; RESP 18; O2SAT 97
[2025-03-26 17:20] VITALS: BP 106/79; BP 99/76; PULSE 90; RESP 18; TEMP 36.6; O2SAT 99
== END 2025-03-26 17:39 | disposition home or self-care (01) ==
LOC: EN 15:19 → AC 15:20
PROVIDERS: PCP Family Medicine; Referring Provider Internal Medicine Gastroenterology; Visit Provider Internal Medicine Gastroenterology
PROC: 0DJ08ZZ Inspection of Upper Intestinal Tract, Via Natural or Artificial Opening Endoscopic (ICD-10-PCS; CPT 43235; principal; 2025-03-26 16:25)
DX: K29.51 Unspecified chronic gastritis with bleeding (principal); I50.31 Acute diastolic (congestive) heart failure; Z79.4 Long term (current) use of insulin; I25.2 Old myocardial infarction; K31.7 Polyp of stomach and duodenum; Z79.82 Long term (current) use of aspirin; Z87.891 Personal history of nicotine dependence; I25.10 Atherosclerotic heart disease of native coronary artery without angina pectoris; I12.9 Hypertensive chronic kidney disease with stage 1 through stage 4 chronic kidney disease, or unspecified chronic kidney disease; Z79.01 Long term (current) use of anticoagulants; Z79.899 Other long term (current) drug therapy; D50.9 Iron deficiency anemia, unspecified; K22.10 Ulcer of esophagus without bleeding
CPT/HCPCS: 44366; 44361; 88305; 88342; C1889

== ENCOUNTER 2025-04-17 16:54 | Observation (INO) | payer MEDICARE, SELFPAY ==
[2025-04-17] VITALS (11 sets, daily range): BP systolic 156–201; BP diastolic 81–135; PULSE 58–94; RESP 13–89; TEMP 35.9–37.2; O2SAT 92–100; BMI 24.7; BMI 24.5; BMI 23.8
--- NOTE | 2025-04-17 16:58 | EKG12_ITS ---
Test Reason : STROKE Blood Pressure : */* mmHG Vent. Rate : 77 BPM Atrial Rate : * BPM P-R Int : * ms QRS Dur : 88 ms QT Int : 424 ms P-R-T Axes : * 2 -17 degrees QTcB Int : 479 ms Possible Atrial fibrillation , unclear Atrial Rhythm Nonspecific ST and T wave abnormality Abnormal ECG Borderline artifact/wander Confirmed by Anibal Painting ([id number]), elevator repair mechanic RODOLFO RAMEY ([id number]) on 04/23/2025 7:15:17 AM Referred By: Confirmed By: Anibal Painting
--- NOTE | 2025-04-17 16:58 | CT_ITS ---
PROCEDURE: STROKE BRAIN/HEAD WITHOUT CONT 04/17/2025 REASON FOR EXAM: NEURO DEFICIT, ACUTE, STROKE SUSPECTED TECHNIQUE: Procedure Code: CTBR.ST Modality: CT Procedure: STROKE BRAIN/HEAD WITHOUT CONT Coronal and Sagittal reconstruction series were provided. One or more dose reduction techniques were used (e.g., Automated exposure control, adjustment of the mA and/or kV according to patient size, use of iterative reconstruction technique. COMPARISON: CT head 11/04/2019 FINDINGS: There is no extra-axial or intra-axial intracranial hemorrhage. No mass effect or midline shift is seen. Generalized intracranial volume loss and findings compatible with chronic microvascular white matter ischemia. There is normal bolaños-white matter differentiation. The posterior fossa is grossly unremarkable. The skull is unremarkable. Visualized paranasal sinuses are clear. The mastoid air cells show normal translucency. CT/STROKE Brain/Head without Cont IMPRESSION: 1. No intracranial hemorrhage. No mass effect or midline shift. 2. Chronic involutional and ischemic gliotic white matter changes. CT is insensitive for early evaluation of acute stroke. If there is clinical co ncern for acute ischemia, an MRI may be considered. Stroke Alert: The critical findings in the findings and impression above were relayed directl y by me by telephone to Christoph Aguilar on 04/17/2025 at 5:23 pm EST with readback verification. Reading Location[facility]
--- NOTE | 2025-04-17 16:59 | CT_ITS ---
PROCEDURE: STROKE CTA HEAD AND NECK W/CON 04/17/2025 REASON FOR EXAM: NEURO DEFICIT, ACUTE, STROKE SUSPECTED TECHNIQUE: Procedure Code: CTCTA.ST.HN Modality: CT Procedure: STROKE CTA HEAD AND NECK W/CON Multiplanar Sagittal and Coronal images were obtained. CONTRAST: 100 cc of Isovue 370. One or more dose reduction techniques were used (e.g., Automated exposure control, adjustment of the mA and/or kV according to patient size, use of iterative reconstruction technique). COMPARISON: Same-day CT head FINDINGS: Aortic Arch: Normal size and branching pattern. No significant atherosclerotic plaque. Brachiocephalic and Subclavians: Unremarkable RIGHT Carotid: Right CCA: Unremarkable. Right ICA: Moderate calcified and soft plaque. Maximum stenosis (NASCET): No hemodynamically significant stenosis. Right ECA: Unremarkable. LEFT Carotid: Left CCA: Unremarkable. Left ICA: Unremarkable. Maximum stenosis (NASCET): No hemodynamically significant stenosis. Left ECA: Unremarkable. Vertebrals: Codominant. Arise from the subclavians. Both vertebrals form the basilar. RIGHT Vertebral: Unremarkable. LEFT Vertebral: Unremarkable. Anatomy: [place] anatomy is normal. Aneurysm or avm: No intracranial aneurysms or large vascular malformations are identified. Anterior cerebral arteries: Unremarkable: Middle cerebral arteries: Unremarkable. Basilar artery: Unremarkable. Posterior cerebral arteries: Unremarkable. Other major branches of the posterior circulation: Unremarkable. Major venous structures: Unremarkable. Other findings: Neck: No lymphadenopathy. Lungs: Lung apices are clear. Bones: Bones are unremarkable. CT/STROKE CTA Head AND Neck W/Con IMPRESSION: 1. Moderate plaque formation of the bilateral carotid bulbs and internal caroti d arteries. 2. No hemodynamically significant stenosis or occlusion in the head and neck va sculature. Reading Location[facility]
[2025-04-17 17:05] LABS: Hematocrit 34.0 % (40-54); Hemoglobin 11.2 g/dL (13.0-16.5); Immature Granulocytes Count 0.020 X10^3/uL (0.0-0.0); Mean Corp Hgb Conc 32.9 g/dL (32-36); Mean Corpuscular Volume 94.7 fL (80-94); Mean Platelet Vol. 9.8 fl (6.2-12.0); NRBC Flagged by Analyzer 0 % (0-5); Platelet Count 205 K/mm3 (150-450); RBC Distribution Width CV 13.5 % (11.6-14.6); RBC Distribution Width SD 47.0 fl (35.1-43.9); Red Blood Count 3.59 M/mm3 (4.6-6.2); White Blood Count 8.4 K/mm3 (4.4-11.0)
--- NOTE | 2025-04-17 17:07 | ED.VIS.STROK ---
HPI History of Present Illness Chief Complaint: Neuro S/Sx Informant: patient Onset/Context/Timing Onset: Today Context: Sudden Onset Timing: Continuous Quality and Location: Positive for Slurred Speech Onset: 1529 today Worsened by: Nothing Relieved by: Nothing Associated Symptoms Associated Symptoms: Negative for Headache, Nausea, Vomiting or Chest Pain Narrative Narrative: Patient presents with slurred speech that was noticed today approximately 1-1/2 hours prior to arrival. states that the patient started slurring his speech today. Patient states he had a similar episode when he had his coronary artery bypass graft. Patient states it was because he was in atrial fibrillation. Patient denies any chest pain or palpitations. Patient denies any nausea or vomiting. Patient denies any headaches. Patient denies any paresthesias or weakness of his extremities. Patient denies any visual changes. [facility] Medical History Cluster headache BPH (benign prostatic hyperplasia) CKD (chronic kidney disease), stage II NSTEMI (non-ST elevated myocardial infarction) Anemia Hypothyroidism Hyperlipidemia Coronary artery disease Essential (primary) hypertension Atrial fibrillation Home Medications ?Medication ?Instructions ?Recorded ?Last Taken ?Type tamsulosin 0.4 mg capsule 0.8 mg PO QHS prostate 11/04/19 07/14/23 History atorvastatin 40 mg tablet 40 mg PO QHS cholesterol #0 tabs 02/24/25 Unknown Rx finasteride 5 mg tablet 5 mg PO QHS prostate 02/24/25 02/23/25 History levothyroxine 100 mcg tablet 100 mcg PO DAILY thyroid 02/24/25 02/24/25 History (Synthroid) metoprolol tartrate 25 mg tablet 25 mg PO BID BP #0 tabs 02/24/25 Unknown Rx multivit,Ca,min-iron 8 mg-folic 1 tab PO DAILY supplement 02/24/25 02/24/25 History acid 200 mcg-lycopene 600 mcg tablet (Men's Daily Multivitamin) apixaban 5 mg tablet (Eliquis) 5 mg PO BID 30 days #60 tabs 03/30/25 Unknown Rx losartan 50 mg tablet 75 mg (1.5 x 50 mg) PO QHS 30 days 03/30/25 Unknown Rx #45 tabs mirtazapine 15 mg tablet 7.5 mg (1/2 x 15 mg) PO QHS 30 03/30/25 Unknown Rx days #15 tabs pantoprazole 40 mg tablet,delayed 40 mg PO BID 30 days #60 tabs 03/30/25 Unknown Rx release sucralfate 1 gram tablet 1 g PO BID 1 month #60 tabs 04/05/25 Unknown Rx clopidogrel 75 mg tablet 75 mg PO QHS 04/17/25 Unknown History Allergy/AdvReac Type Severity Reaction Status Date / Time Penicillins Allergy NEEDS Verified 04/17/25 16:58 FOLLOW-UP fermented products Allergy NEEDS Uncoded 11/04/19 10:09 FOLLOW-UP Family History Mother Congestive heart failure Father Colon cancer Surgical History Status post four vessel coronary artery bypass History of hand surgery History of left breast biopsy History of colonoscopy History of meniscectomy of left knee Social History household members: spouse Smoking Status: Former smoker alcohol intake: never substance use type: does not use ROS ROS ED Constitutional Constitutional ED: Denies chills or fever(s) Eyes Eyes: Denies blurry vision or change in vision ENT ENT ED: Denies rhinorrhea or sore throat Cardiovascular Cardiovascular: Denies chest pain or palpitations Respiratory/Chest Respiratory/Chest: Denies cough or dyspnea Gastrointestinal Gastrointestinal: Denies nausea or vomiting Genitourinary Genitourinary ED: Denies dysuria or hematuria Musculoskeletal Musculoskeletal: Denies back pain or neck pain Integumentary Denies abscess or rash Neurologic Neurologic: Denies headache(s) or weakness Allergic/Immunologic Allergic/Immunologic ED: Denies mouth swelling or urticaria EXAM Physical Exam Const Vital Signs: 04/17/25 16:56 04/17/25 17:02 04/17/25 17:12 Temperature 98.7 F Temperature Source Oral Pulse Rate 91 94 Respiratory Rate 16 16 Blood Pressure 162/135 H Blood Pressure Mean 144 Pulse Ox 99 99 100 Oxygen Delivery Method Room Air Room Air Room Air 04/17/25 17:12 04/17/25 17:45 04/17/25 18:00 Temperature 98.9 F 98.1 F 98 F Temperature Source Oral Oral Oral Pulse Rate 63 73 75 Respiratory Rate 16 23 H 23 H Blood Pressure 181/92 H 167/106 H 176/92 H Blood Pressure Mean 121 126 120 Pulse Ox 100 100 97 Oxygen Delivery Method Room Air Room Air Room Air 04/17/25 18:00 04/17/25 18:31 04/17/25 18:47 Temperature 98 F 97.8 F 98 F Temperature Source Oral Oral Pulse Rate 81 69 66 Respiratory Rate 15 13 20 H Blood Pressure 176/92 H 197/94 H 201/98 H Blood Pressure Mean 120 128 132 Pulse Ox 100 97 99 Oxygen Delivery Method Room Air Room Air Positive well nourished and well developed General Appearance ED: well developed and NAD HEENT Reports moist mucous membranes atraumatic Eyes PERRL and EOMs intact bilaterally Neck supple and no JVD Resp normal respiratory effort and clear to auscultation bilaterally Cardio Rate: regular rate Rhythm: regular rhythm GI soft to palpation, non-tender and non-distended Neuro oriented x3, CN's II-XII intact bilaterally and no sensory deficits noted Neuro Narrative: There was some slurring of the speech noted. However, patient was able to speak clearly enough to understand his words. There is no facial weakness noted. There are no motor or sensory deficits noted. Alen Coma Scale: document GCS findings Spontaneous Obeys Commands Oriented 15 Sensorium / Orientation: alert Motor Exam: strength 5/5 throughout Psych mental status grossly normal MDM MDM MDM Narrative Medical decision making narrative: Stroke alert was called in triage. Stroke order set was used. Differential diagnosis includes stroke, electrolyte abnormality, dehydration, infection, coagulopathy, and anxiety. CT scan of the brain will be obtained to assess for stroke and intracranial bleeding. CTA of the head and neck will be obtained to assess for large vessel occlusion and vascular stenosis. Chest x-ray will be obtained to assess for pneumonia or bronchitis. CBC will be obtained to assess for leukocytosis and anemia. Basic metabolic profile will be obtained to assess for electrolyte abnormality and renal function. High-sensitivity troponin will be obtained to assess for cardiac ischemia. 2-hour repeat high-sensitivity troponin will be obtained to assess for ongoing cardiac ischemia. PT with INR and PTT will be obtained to assess for coagulopathy. Lab Data Attestation: I reviewed the patient's lab results. Lab results narrative: CBC was reviewed. There is a mild anemia with a hemoglobin of 11.2 and hematocrit of 34.0. PT with INR and PTT were reviewed and were within normal limits. BGT was reviewed and was normal at 108. Labs: Laboratory Results - last 24 hr 04/17/25 04/17/25 16:56 17:00 WBC 8.4 RBC 3.59 L Hgb 11.2 L Hct 34.0 L MCV 94.7 H MCH 31.2 MCHC 32.9 RDW Std Deviation 47.0 H RDW Coeff of Charles 13.5 Plt Count 205 MPV 9.8 Immature Gran % (Auto) 0.200 Neut % (Auto) 59.2 Lymph % (Auto) 27.0 [place] % (Auto) 7.8 Eos % (Auto) 4.8 Baso % (Auto) 1.0 Absolute Neuts (auto) 5.0 Absolute Lymphs (auto) 2.27 Nucleated RBC % 0 PT 14.9 INR 1.1 APTT 29.4 Sodium 138 Potassium 4.4 Chloride 103 Carbon Dioxide 26.9 Anion Gap 8 BUN 19 Creatinine 1.01 Estim Creat Clear Calc 55.21 Est GFR (MDRD) Non-Af 73 BUN/Creatinine Ratio 19.1 Glucose 124 H Calcium 9.3 Magnesium 2.3 H Troponin T High Sens 26 H D POC Glucose 108 H Radiography Diagnostic Testing: Clinical Impression(s) from Imaging Studies Brain CT 04/17/25 16:58 IMPRESSION: 1. No intracranial hemorrhage. No mass effect or midline shift. 2. Chronic involutional and ischemic gliotic white matter changes. CT is insensitive for early evaluation of acute stroke. If there is clinical concern for acute ischemia, an MRI may be considered. Stroke Alert: The critical findings in the findings and impression above were relayed directly by me by telephone to Christoph Aguilar on 04/17/2025 at 5:23 pm EST with readback verification. Reading Location: [facility] Head/Neck CTA 04/17/25 16:59 IMPRESSION: 1. Moderate plaque formation of the bilateral carotid bulbs and internal carotid arteries. 2. No hemodynamically significant stenosis or occlusion in the head and neck vasculature. Reading Location: [facility] Chest X-Ray 04/17/25 17:25 IMPRESSION: No Acute Findings. Reading Location: [facility] CT scan of the brain was obtained. There is no acute intracranial abnormality. This was interpreted by the radiologist. I also independently reviewed the images and did not see any intracranial bleeding or mass. CTA of the head and neck was obtained. There is moderate plaque formation of the carotid bulbs and internal carotid arteries. There is no significant stenosis or occlusion noted. There is no large vessel occlusion noted. This was interpreted by the radiologist. I also independently reviewed the images and did not see any evidence of large vessel occlusion. Portable 1 view chest x-ray was obtained. On my independent interpretation, lung glover are clear. There is normal cardiac silhouette. Bony thorax is normal. There is no acute process noted. Radiologist also interpreted the x-ray and agrees. EKG Initial EKG: Attestation: I personally reviewed and interpreted this EKG as follows: Interpretation: Sinus Rhythm (With frequent PACs with a rate of 77) Comments: EKG was obtained. On my independent interpretation, shows a sinus rhythm with frequent PACs with a rate of 77. [place] interval was approximately 200 ms. QRS interval was normal at 88 ms. QTc interval was normal at 479 ms. [place] was normal. There are nonspecific ST-T wave changes. Prior EKG tracings: available for review Prior: Unchanged (02/24/2025) Management Discussion w/another healthcare provider: Hospitalist and Radiologist Treatment and Re-Evaluation Narrative: Patient was advised of his findings. I recommended admission to the hospital for further evaluation of possible stroke. Patient is agreeable with this. Case was discussed with the hospitalist. She will admit the patient to her service. Patient understood and was agreeable with the plan. All questions were answered. Discharge Plan Dx/Rx/DC Orders Clinical Impression: Slurred speech, Status post four vessel coronary artery bypass, Hypertension Disposition Disposition: Acute Care Hospital [facility] Discharge Date/Time: 04/17/25 19:36 NIHSS NIHSS 1a. Level of Consciousness: 0 - Alert; keenly responsive 1b. LOC Questions: 0 - Answers BOTH questions correctly 1c. LOC Commands: 0 - Performs BOTH tasks correctly 2. Best Gaze: 0 - Normal 3. Visual: 0 - No visual loss 4. Facial Palsy: 0 - Normal symmetrical movements 5a. Left Arm: 0 - No drift; arm holds 90 (or 45) degrees for full 10 seconds 5b. Right Arm: 0 - No drift; arm holds 90 (or 45) degrees for full 10 seconds 6a. Left Le - No drift; leg holds 30-degree position for full 5 seconds 6b. Right Le - No drift; leg holds 30-degree position for full 5 seconds 7. Limb Ataxia: 0 - Absent 8. Sensory: 0 - Normal; no sensory loss 9. Best Language: 0 - No aphasia; normal 10. Dysarthria: 1 = [id number] dysarthria; 11. Extinction and Inattention: 0 - No abnormality Total: 1 Stroke Questions Stroke Team Activated: Yes Reviewed Inclusion/Exclusion criteria: Yes IV Thrombolytic Administered: No
--- OUTSIDE RECORDS SUMMARY | 2025-04-17 17:10 | XMS RPT_ITS | CCD ---
Author Organization [facility] Care Team Providers Care Toll Mechanic Name Role Phone Jeremias Damico MD Primary Care Provider [phone] Jeremias Damico MD Primary Care Provider Boone [facility].Diana HENDRICKS Unavailable Unavail able Renaldo [employer] HAND.Zeeshan HENDRICKS Unavailable Boone [facility].Diana HENDRICKS Unavailable ELDERBROCK, JEREMIAS Primary Care Unavailable ELDERMICHELLE, JEREMIAS Attending Unavailable ELDERMICHELLE, JEREMIAS Primary Care Unavailable ELDERBROTIMUR, JEREMIAS Referring Unavailable ELDERBROCK, JEREMIAS Primary Care Unavailable ELDERBROTIMUR, JEREMIAS Attending Unavailable ELDERBROCK, JEREMIAS Primary Care Unavailable SHAQ BISHOP Attending Unavailable ELDERBROTIMUR, JEREMIAS Primary Care Unavailable ELDERBROTIMUR, JEREMIAS Referring [...] VEGETABLE GUM)] Propensity to adverse reactions 5 [facility] Work Phone: (20 sources) Mold Extract; Translations: [MOLD] Drug Allergy 5 [facility] Work Phone: (20 sources) Penicillin G; Translations: [PENICILLIN G] Drug Allergy 5 [facility] (20 sources) Pollen; Translations: [POLLEN] Propensity to adverse reactions 5 [facility] Work Phone: (20 sources) dairy products [Other] Propensity to adverse reactions 1 Other: See Comments, Unknown [facility] (20 sources) Vinegar; Translations: [VINEGAR] Propensity to adverse reactions 5 [facility] Work Phone: (1 source) Penicillins Allergy to substance 4 NEEDS FOLLOW-UP [facility] (2 sources) fermented products; Translations: [fermented products] Allergy to substance 0 NEEDS FOLLOW-UP [facility] (16 sources) Milk; Translations: [MILK CONTAINING PRODUCTS (DAIRY)] Drug Intolerance 4 Intolerance [facility] (1 source) Penicillins Drug allergy (disorder) 5 [facility] Repository Medications Current Medications Medication Drug Class(es) Dates Sig (Normalized) Sig (Original) docusate sodium 100 mg oral capsule (20 sources) Start: 05-12-2007 docusate sodium(Alumni[employer]under LIQUI-GELS 100 MG CAP) Take by mouth once daily. 0 05/12/2007 Active Start: 05-12-2007 docusate sodiu m(AlumniFunder LIQUI-GELS 100 MG CAP) 3 per day [...] [Moles/Vol] -1 mmol/L Normal -2-0 [facility] Comment on above: Order Comment: Sharon shaw Type: BLOOD SPECIMEN Ordering Facility: [facility] Address: [address] [place] [address] Performed By: #### 3 016-3, 43129-3, HSTNT, 39316-6, 96496-0, 85657-1 #### [facility] CLIA [id number] [address] [place] [address] [place] Body temperature 98.78 [degF] Normal [facility] Comment on above: Order Comment: Sharon shaw Type: BLOOD SPECIMEN Ordering Facility: [facility] Address: [address] [place] [address] Performed By: #### 3 016-3, 27855-0, HSTNT, 45222-3, 77009-7, 60012-8 #### [facility] CLIA [id number] [address] Calcium.ionized (BldV) [Mass/Vol] 1.22 mmol/L Normal 1.08-1.30 [facility] Comment on above: Order Comment: Speci men Type: BLOOD SPECIMEN Ordering Facility: [facility] Address: [address] [place] [address] Performed By: #### 3 016-3, 57769-2, HSTNT, 51643-4, 48525-7, 17369-2 #### [facility] CLIA [id number] [address] Calcium.ionized adjusted to pH 7.4 (BldA) [Moles/Vol] 1.21 mmol/L Normal 1.08-1.30 [facility] Comment on above: Order Comment: Speci men Type: BLOOD SPECIMEN Ordering Facility: [facility] Address: [address] [place] [address] Performed By: #### 3 016-3, 23452-9, HSTNT, 09638-7, 05186-7, 84321-7 #### [facility] CLIA [id number] [address] [facility] Carboxyhemoglobin (BldA) [Mass fraction] 1.1 % Normal 0.0-2.0 [facility] Comment on above: Order Comment: Speci men Type: BLOOD SPECIMEN Ordering Facility: [facility] Address: [address] [place] [address] Result Comment: Carb oxyhemoglobin Reference Range for Smokers: 2.0-8.0% Performed By: #### 3 016-3, 53827-8, HSTNT, 44502-7, 16886-1, 23075-9 #### [facility] CLIA [id number] [address] [place] Chloride [Moles/Vol] 100 mmol/L Normal 97-105 [facility] Comment on above: Order Comment: Speci men Type: BLOOD SPECIMEN Ordering Facility: [facility] Address: [address] [place] [address] Performed By: #### 3 016-3, 13129-2, HSTNT, 80270-6, 48683-2, 22025-6 #### [facility] CLIA [id number] [address] [facility] CO2 (Bld) [Partial pressure] 40 mm Hg Normal 36-46 [facility] Comment on above: Order Comment: Speci men Type: BLOOD SPECIMEN Ordering Facility: [facility] Address: [address] [place] [address] Performed By: #### 3 016-3, 47439-1, HSTNT, 56744-2, 21041-2, 33204-8 #### [facility] CLIA [id number] [address] CO2 adjusted to patient's actual temperature (Bld) [Partial pressure] 40 mmHg Normal 36-46 [facility] Comment on above: Order Comment: Speci men Type: BLOOD SPECIMEN Ordering Facility: [facility] Address: [address] [place] [address] Performed By: #### 3 016-3, 61404-2, HSTNT, 60851-9, 37478-8, 10281-4 #### [facility] CLIA [id number] [address] [place] Glucose [Mass/Vol] 91 mg/dL Normal 60-105 [facility] Comment on above: Order Comment: Speci men Type: BLOOD SPECIMEN Ordering Facility: [facility] Address: [address] [place] [address] Performed By: #### 3 016-3, 06205-0, HSTNT, 23041-0, 41849-0, 44094-6 #### [facility] CLIA [id number] [address] [place] HCO3 (Bld) [Moles/Vol] 24 mmol/L Normal 22-26 [facility] Comment on above: Order Comment: Speci men Type: BLOOD SPECIMEN Ordering Facility: [facility] Address: [address] [place] [address] Performed By: #### 3 016-3, 02788-4, HSTNT, 39486-3, 24959-9, 29166-8 #### [facility] CLIA [id number] [address] [place] Hematocrit (Bld) [Volume fraction] 35.0 % Low 39.0-51.0 [facility] Comment on above: Order Comment: Speci men Type: BLOOD SPECIMEN Ordering Facility: [facility] Address: [address] [place] [address] Performed By: #### 3 016-3, 47073-3, HSTNT, 64571-2, 68676-0, 99372-6 #### [facility] CLIA [id number] [address] [place] [address] [place] Hemoglobin (Bld) [Mass/Vol] 11.3 g/dL Low 13.0-17.0 [facility] Comment on above: Order Comment: Speci men Type: BLOOD SPECIMEN Ordering Facility: [facility] Address: [address] [place] [address] Performed By: #### 3 016-3, 60704-3, HSTNT, 10359-9, 61229-2, 31968-0 #### [facility] CLIA [id number] [address] [place] [address] [place] Lactate [Moles/Vol] 0.6 mmol/L Normal 0.5-2.2 [facility] Comment on above: Order Comment: Speci men Type: BLOOD SPECIMEN Ordering Facility: [facility] Address: [address] [place] [address] Performed By: #### 3 016-3, 13073-1, HSTNT, 82671-6, 54210-1, 34099-2 #### [facility] CLIA [id number] [address] [place] LITERS 3 Liters/min Normal [facility] Comment on above: Order Comment: Speci men Type: BLOOD SPECIMEN Ordering Facility: [facility] Address: [address] [place] [address] Performed By: #### 3 016-3, 14841-6, HSTNT, 49481-6, 71321-5, 81409-2 #### [facility] CLIA [id number] [address] [place] Methemoglobin (Bld) [Mass fraction] 1.0 % Normal 0.0-1.5 [facility] Comment on above: Order Comment: Speci men Type: BLOOD SPECIMEN Ordering Facility: [facility] Address: [address] [place] [address] Performed By: #### 3 016-3, 69095-5, HSTNT, 93203-9, 86732-8, 18274-4 #### [facility] CLIA [id number] [address] [place] O2 THERAPY NC = Nasal Cannula Normal [facility] Comment on above: Order Comment: Speci men Type: BLOOD SPECIMEN Ordering Facility: [facility] Address: [address] [place] [address] Performed By: #### 3 016-3, 74707-7, HSTNT, 58202-9, 73979-8, 58244-5 #### [facility] CLIA [id number] [address] [place] Oxygen (Bld) [Partial pressure] 86 mm Hg Normal 85-95 [facility] Comment on above: Order Comment: Speci men Type: BLOOD SPECIMEN Ordering Facility: [facility] Address: [address] [place] [address] Performed By: #### 3 016-3, 40876-3, HSTNT, 33557-5, 27346-0, 32950-5 #### [facility] CLIA [id number] [address] [place] Oxygen adjusted to patient's actual temperature (Bld) [Partial pressure] 87 mmHg Normal 85-95 [facility] Comment on above: Order Comment: Speci men Type: BLOOD SPECIMEN Ordering Facility: [facility] Address: [address] [place] [address] Performed By: #### 3 016-3, 88386-2, HSTNT, 59073-2, 93654-9, 80894-5 #### [facility] CLIA [id number] [address] [facility] Oxyhemoglobin (BldA) [Mass fraction] 95 % Normal 95-98 [facility] Comment on above: Order Comment: Speci men Type: BLOOD SPECIMEN Ordering Facility: [facility] Address: [address] [place] [address] Performed By: #### 3 016-3, 66743-3, HSTNT, 61695-2, 16408-0, 59254-7 #### [facility] CLIA [id number] [address] [facility] pH (Bld) 7.40 [pH] Normal 7.35-7.45 [facility] Comment on above: Order Comment: Speci men Type: BLOOD SPECIMEN Ordering Facility: [facility] Address: [address] [place] [address] Performed By: #### 3 016-3, 40708-0, HSTNT, 80111-9, 34372-0, 11243-1 #### [facility] CLIA [id number] [address] [facility] pH adjusted to patient's actual temperature (Bld) 7.40 Normal 7.35-7.45 [facility] Comment on above: Order Comment: Speci men Type: BLOOD SPECIMEN Ordering Facility: [facility] Address: [address] [place] [address] Performed By: #### 3 016-3, 00140-6, HSTNT, 21985-1, 89120-3, 66335-1 #### [facility] CLIA [id number] [address] [place] [address] [place] Potassium [Moles/Vol] 3.9 mmol/L Normal 3.5-5.0 [facility] Comment on above: Order Comment: Speci men Type: BLOOD SPECIMEN Ordering Facility: [facility] Address: [address] [place] [address] Performed By: #### 3 016-3, 95649-8, HSTNT, 08904-7, 12618-8, 18989-6 #### [facility] CLIA [id number] [address] [place] [address] [place] Sodium [Moles/Vol] 130 mmol/L Low 136-144 [facility] Comment on above: Order Comment: Speci men Type: BLOOD SPECIMEN Ordering Facility: [facility] Address: [address] [place] [address] Performed By: #### 3 016-3, 66373-5, HSTNT, 66730-8, 31044-8, 73994-6 #### [facility] CLIA [id number] [address] [place] [address] [place] Basic metabolic 2000 panelon 03-03-2025 Anion gap [Moles/Vol] 9 mmol/L Normal 8-15 [facility] Comment on above: Order Comment: Speci men Type: BLOOD SPECIMEN Ordering Facility: [facility] Address: [address] [place] [address] Performed By: #### 3 016-3, 70291-6, HSTNT, 01263-7, 74390-2, 99437-1 #### [facility] CLIA [id number] [address] [place] [address] [place] Calcium [Mass/Vol] 8.4 mg/dL Low 8.5-10.2 [facility] Comment on above: Order Comment: Speci men Type: BLOOD SPECIMEN Ordering Facility: [facility] Address: [address] [place] [address] Performed By: #### 3 016-3, 28325-5, HSTNT, 65258-7, 28552-8, 83592-5 #### [facility] CLIA [id number] [address] [place] [address] [place] Chloride [Moles/Vol] 101 mmol/L Normal 98-107 [facility] Comment on above: Order Comment: Speci men Type: BLOOD SPECIMEN Ordering Facility: [facility] Address: [address] [place] [address] Performed By: #### 3 016-3, 81523-4, HSTNT, 02572-8, 06089-3, 98301-3 #### [facility] CLIA [id number] [address] [place] [address] [place] CO2 [Moles/Vol] 23 mmol/L Normal 22-30 [facility] Comment on above: Order Comment: Speci men Type: BLOOD SPECIMEN Ordering Facility: [facility] Address: [address] [place] [address] Performed By: #### 3 016-3, 98568-0, HSTNT, 96285-2, 46617-1, 44092-9 #### [facility] CLIA [id number] [address] [place] [address] [place] Creatinine [Mass/Vol] 0.85 mg/dL Normal 0.73-1.22 [facility] Comment on above: Order Comment: Speci men Type: BLOOD SPECIMEN Ordering Facility: [facility] Address: [address] [place] [address] Performed By: #### 3 016-3, 68644-0, HSTNT, 80981-8, 88739-9, 94955-3 #### [facility] CLIA [id number] [address] [place] [address] [place] eGFRcr SerPlBld CKD-EPI 2020 85 mL/min/1.73m??? Normal >=60 [facility] Comment on above: Order Comment: Speci men Type: BLOOD SPECIMEN Ordering Facility: [facility] Address: [address] [place] [address] Result Comment: Monie mated Glomerular Filtration Rate [...] actual GFR. Performed By: #### 3 016-3, 93956-9, HSTNT, 10301-1, 81957-0, 67352-4 #### [facility] CLIA [id number] [address] [place] [address] [place] Glucose [Mass/Vol] 93 mg/dL Normal 74-99 [facility] Comment on above: Order Comment: Sharon shaw Type: BLOOD SPECIMEN Ordering Facility: [facility] Address: [address] [place] [address] Result Comment: The [place] [employer] (ADA) provides guidance for cutoff [...] Standards of Medical Care in Diabetes 2016, [place] [employer]. Diabetes Care. 2016.39(Suppl 1). Performed By: #### 3 016-3, 42054-0, HSTNT, 84977-1, 98131-7, 31593-6 #### [facility] CLIA [id number] [address] [place] [address] [place] Potassium [Moles/Vol] 4.1 mmol/L Normal 3.7-5.1 [facility] Comment on above: Order Comment: Sharon shaw Type: BLOOD SPECIMEN Ordering Facility: [facility] Address: [address] [place] [address] Performed By: #### 3 016-3, 36599-1, HSTNT, 33273-7, 50819-5, 24547-7 #### [facility] CLIA [id number] [address] [place] Sodium [Moles/Vol] 133 mmol/L Low 136-144 [facility] Comment on above: Order Comment: Speci men Type: BLOOD SPECIMEN Ordering Facility: [facility] Address: [address] [place] [address] Performed By: #### 3 016-3, 29655-2, HSTNT, 54770-7, 94869-9, 67743-6 #### [facility] CLIA [id number] [address] [place] [address] [place] Urea nitrogen [Mass/Vol] 11 mg/dL Normal 9-24 [facility] Comment on above: Order Comment: Speci men Type: BLOOD SPECIMEN Ordering Facility: [facility] Address: [address] [place] [address] Performed By: #### 3 016-3, 67598-3, HSTNT, 58097-9, 07180-1, 78493-2 #### [facility] CLIA [id number] [address] [place] [address] [place] CBC panel Auto (Bld)on 03-03 Erythrocyte distribution width (RBC) [Ratio] 12.4 % Normal 11.5-15.0 [facility] Comment on above: Order Comment: Speci men Type: BLOOD SPECIMEN Ordering Facility: [facility] Address: [address] [place] [address] Performed By: #### 3 016-3, 82223-2, HSTNT, 73614-9, 75244-9, 94386-3 #### [facility] CLIA [id number] [address] [place] Hematocrit (Bld) [Volume fraction] 31.6 % Low 39.0-51.0 [facility] Comment on above: Order Comment: Speci men Type: BLOOD SPECIMEN Ordering Facility: [facility] Address: [address] [place] [address] Performed By: #### 3 016-3, 51118-4, HSTNT, 45072-0, 83102-3, 08979-1 #### [facility] CLIA [id number] [address] [facility] Hemoglobin (Bld) [Mass/Vol] 10.9 g/dL Low 13.0-17.0 [facility] Comment on above: Order Comment: Speci men Type: BLOOD SPECIMEN Ordering Facility: [facility] Address: [address] [place] [address] Performed By: #### 3 016-3, 66731-3, HSTNT, 96370-9, 47148-4, 43979-5 #### [facility] CLIA [id number] [address] MCH (RBC) [Entitic mass] 31.5 pg Normal 26.0-34.0 [facility] Comment on above: Order Comment: Speci men Type: BLOOD SPECIMEN Ordering Facility: [facility] Address: [address] [place] [address] Performed By: #### 3 016-3, 41562-2, HSTNT, 00034-2, 20255-8, 56066-9 #### [facility] CLIA [id number] [address] [facility] MCHC (RBC) [Mass/Vol] 34.5 g/dL Normal 30.5-36.0 [facility] Comment on above: Order Comment: Speci men Type: BLOOD SPECIMEN Ordering Facility[facility] Address: [address] [place] [address] Performed By: #### 3 016-3, 75813-6, HSTNT, 95784-4, 86464-6, 71724-0 #### [facility] CLIA [id number] [address] [facility] MCV (RBC) [Entitic vol] 91.3 fL Normal 80.0-100.0 [facility] Comment on above: Order Comment: Speci men Type: BLOOD SPECIMEN Ordering Facility[facility] Address: [address] [place] [address] Performed By: #### 3 016-3, 46157-1, HSTNT, 71209-5, 26601-4, 49114-4 #### [facility] CLIA [id number] [address] [place] Nucleated RBC (Bld) [#/Vol] 10*3/uL Normal <0.01 [facility] Comment on above: Order Comment: Speci men Type: BLOOD SPECIMEN Ordering Facility: [facility] Address: [address] [place] [address] Performed By: #### 3 016-3, 78785-6, HSTNT, 93213-4, 26015-0, 95511-3 #### [facility] CLIA [id number] [address] [place] Platelet mean volume (Bld) [Entitic vol] 10.3 fL Normal 9.0-12.7 [facility] Comment on above: Order Comment: Speci men Type: BLOOD SPECIMEN Ordering Facility[facility] Address: [address] [place] [address] Performed By: #### 3 016-3, 22754-9, HSTNT, 65404-9, 96309-8, 76516-3 #### [facility] CLIA [id number] [address] [place] Platelets (Bld) [#/Vol] 148 10*3/uL Low 150-400 [facility] Comment on above: Order Comment: Speci men Type: BLOOD SPECIMEN Ordering Facility[facility] Address: [address] [place] [address] Performed By: #### 3 016-3, 16647-3, HSTNT, 28713-4, 09696-4, 24381-7 #### [facility] CLIA [id number] [address] [place] RBC (Bld) [#/Vol] 3.46 10*6/uL Low 4.20-6.00 [facility] Comment on above: Order Comment: Speci men Type: BLOOD SPECIMEN Ordering Facility[facility] Address: [address] [place] [address] Performed By: #### 3 016-3, 99911-1, HSTNT, 15612-8, 19705-9, 97243-6 #### [facility] CLIA [id number] [address] [place] [address] [place] WBC (Bld) [#/Vol] 13.46 10*3/uL High 3.70-11.00 [facility] Comment on above: Order Comment: Speci men Type: BLOOD SPECIMEN Ordering Facility: [facility] Address: [address] [facility] [place] [address] Performed By: #### 3 016-3, 87052-2, HSTNT, 21371-4, 95021-9, 12882-5 #### [facility] CLIA [id number] [address] [facility] ECG COMPLETEon 03-03-2025 ECG COMPLETE Ventricular Rate : 6 9 BPM Atrial Rate : 69 BPM P-R Interval : 160 ms QRS Duration : 88 ms Q-T Interval : 424 ms QTC Calculation(Bazett) : 454 ms Calculated P Almond : 55 degrees Calculated R Almond : 4 degrees Calculated T Almond : -10 degrees NORMAL SINUS RHYTHM WITH SINUS ARRHYTHMIA NONSPECIFIC T WAVE ABNORMALITY ABNORMAL ECG WHEN COMPARED WITH ECG OF 02-Mar-2025 14:10, SINUS RHYTHM HAS REPLACED ATRIAL FIBRILLATION NON-SPECIFIC CHANGE IN ST SEGMENT IN ANTERIOR LEADS NONSPECIFIC T WAVE ABNORMALITY NOW EVIDENT IN INFERIOR LEADS QT HAS SHORTENED Confirmed by MD HOPPER VINAY ([id number]) on 03/03/2025 12:33:00 PM NAME : ELSA PALACIO PID : [id number] : 1940 Gender : Male Race : ORD : [id number] Procedure Date : Mar 03 2025 04:23:56 [...] HAS SHORTENED Confirmed by MD HOPPER VINAY ([id number]) on 03/03/2025 12:33:00 PM Test Reason : Post-OP Location : [address] : [place] [address] Overread By : MD HOPPER VINAY Edited By : MD HOPPER VINAY Referred By : SHAWN CHAU Acquired by : ALLISON LORD [facility] Magnesium SerPl-mCncon 03-03 Magnesium [Mass/Vol] 1.7 mg/dL Normal 1.7-2.3 [facility] Comment on above: Order Comment: Speci men Type: BLOOD SPECIMEN Ordering Facility[facility] Address: [facility] [place] [address] Performed By: #### 3 016-3, 94126-2, HSTNT, 97148-3, 36836-9, 33309-1 #### [facility] CLIA [id number] [address] THERAPY NTon 03-03-2025 THERAPY NT HNO ID: [id number] Author: OSCAR BHAKTA, PT Service: Physical Therapy Author Type: Physical Therapist Type: Therapy (PT/OT/Speech/Resp) Filed: 03/03/2025 14:34 Note Text: Physical Therapy Evaluation Summary SERVICE DATE: 03/03/2025 SERVICE TIME: 1014 to 1037 ROOM: [place] [address] PT 6 Clicks Score: 18 DISCHARGE RECOMMENDATIONS [...] HOSPITAL COURSE Pt is a transfer from [facility]. Pt c/o chest pain while mowing [...] and signs-other TREATMENT INTERVENTIONS Evaluation; Therapeutic Activity (46873) $ Evaluation-Moderate (29304) Billed Units: 1 unit Therapeutic Activity (48710) Treatment Minutes: 8 $ Therapeutic Activity (60250) Billed Units: 1 unit Cues for safe [...] (more content not included)... Normal [facility] XR CHEST 1V FRONTALon 2024 [...] median sternotomy wires and sternal plate. Overlying campus monitor leads. Lungs and pleura: No pneumothorax. Diminished aeration remains at both lung bases due to postoperative atelectasis and probable pleural effusion. Cardiomediastinal silhouette: Stable. Other: No significant additional findings. IMPRESSION: Status post extubation. [employer]: GAEL Transcribe Date/Time: Mar 03 2025 6:40A Dictated by : NEIL CARTER MD This examination was interpreted and the report reviewed and electronically signed by: NEIL CARTER MD on Mar 03 2025 6:41AM EST [id number] N [facility] ANES POSTPROC EVALon 025 ANES POSTPROC EVAL HNO ID: [id number] Author: MOLINA PALOMO MD Service: Anesthesiology Author Type: Physician Type: Anesthesia Postprocedure Evaluation Filed: 03/02/2025 17:14 Note Text: POST ANESTHESIA EVALUATION NOTE : 1940 Procedure Summary Date: 03/02/25 Room / Location: [place] / [facility] [place] Anesthesia Start: 706 Anesthesia Stop: 1412 [...] March 02, 2025 TIME: 5:13 PM CSN: [id number] [facility] ANES PRE-OPon 03-02-2025 ANES PRE-OP HNO ID: [id number] Author: BROOKS MONTEJO MD Service: Anesthesiology Author Type: Physician Type: Anesthesia Preprocedure Evaluation Filed: 03/02/2025 07:01 Note Text: ANESTHESIOLOGY DAY OF SURGERY NOTE : 1940 Procedure Information Date/Time: 03/02/25714 Procedure: 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 Patient / Responsible Republican agrees to proceed: yes Patient / Surrogate [...] (more content not included)... Normal [facility] ARTERIAL BLOOD GASESon 03-02 Base deficit (BldA) [Moles/Vol] -1 mmol/L Normal -2-0 [facility] Comment on above: Order Comment: Speci men Type: BLOOD SPECIMEN Ordering Facility: [facility] Address: [address] [place] [address] Performed By: #### 3 016-3, 03001-3, HSTNT, 78520-0, 22834-6, 23897-6 #### [facility] CLIA [id number] [address] [place] [address] [place] Body temperature 98.78 [degF] Normal [facility] Comment on above: Order Comment: Speci men Type: BLOOD SPECIMEN Ordering Facility: [facility] Address: [address] [place] [address] Performed By: #### 3 016-3, 82381-0, HSTNT, 12823-9, 84416-0, 08157-2 #### [facility] CLIA [id number] [address] Calcium.ionized (BldV) [Mass/Vol] 1.23 mmol/L Normal 1.08-1.30 [facility] Comment on above: Order Comment: Speci men Type: BLOOD SPECIMEN Ordering Facility: [facility] Address: [address] [place] [address] Performed By: #### 3 016-3, 72890-2, HSTNT, 63456-0, 57025-2, 36792-9 #### [facility] CLIA [id number] [address] Calcium.ionized adjusted to pH 7.4 (BldA) [Moles/Vol] 1.21 mmol/L Normal 1.08-1.30 [facility] Comment on above: Order Comment: Speci men Type: BLOOD SPECIMEN Ordering Facility: [facility] Address: [address] [place] [address] Performed By: #### 3 016-3, 07400-4, HSTNT, 53178-3, 98285-3, 79699-5 #### [facility] CLIA [id number] [address] Carboxyhemoglobin (BldA) [Mass fraction] 1.1 % Normal 0.0-2.0 [facility] Comment on above: Order Comment: Speci men Type: BLOOD SPECIMEN Ordering Facility: [facility] Address: [address] [place] [address] Result Comment: Carb oxyhemoglobin Reference Range for Smokers: 2.0-8.0% Performed By: #### 3 016-3, 32214-6, HSTNT, 56389-8, 37631-8, 82247-2 #### [facility] CLIA [id number] [address] [place] Chloride [Moles/Vol] 102 mmol/L Normal 97-105 [facility] Comment on above: Order Comment: Speci men Type: BLOOD SPECIMEN Ordering Facility: [facility] Address: [address] [place] [address] Performed By: #### 3 016-3, 50031-7, HSTNT, 49147-5, 94652-5, 86014-8 #### [facility] CLIA [id number] [address] [place] CO2 (Bld) [Partial pressure] 41 mm Hg Normal 36-46 [facility] Comment on above: Order Comment: Speci men Type: BLOOD SPECIMEN Ordering Facility: [facility] Address: [address] [place] [address] Performed By: #### 3 016-3, 14137-0, HSTNT, 04271-2, 52054-8, 82090-5 #### [facility] CLIA [id number] [address] [place] [facility] CO2 adjusted to patient's actual temperature (Bld) [Partial pressure] 41 mmHg Normal 36-46 [facility] Comment on above: Order Comment: Speci men Type: BLOOD SPECIMEN Ordering Facility: [facility] Address: [address] [place] [address] Performed By: #### 3 016-3, 00694-4, HSTNT, 45555-1, 96536-8, 78346-9 #### [facility] CLIA [id number] [address] [place] [address] [place] Glucose [Mass/Vol] 120 mg/dL High 60-105 [facility] Comment on above: Order Comment: Speci men Type: BLOOD SPECIMEN Ordering Facility: [facility] Address: [address] [place] [address] Performed By: #### 3 016-3, 17758-8, HSTNT, 39577-7, 44583-5, 40582-5 #### [facility] CLIA [id number] [address] [place] HCO3 (Bld) [Moles/Vol] 23 mmol/L Normal 22-26 [facility] Comment on above: Order Comment: Speci men Type: BLOOD SPECIMEN Ordering Facility: [facility] Address: [address] [place] [address] Performed By: #### 3 016-3, 48544-3, HSTNT, 90711-4, 13852-9, 78097-9 #### [facility] CLIA [id number] [address] [place] Hematocrit (Bld) [Volume fraction] 35.0 % Low 39.0-51.0 [facility] Comment on above: Order Comment: Speci men Type: BLOOD SPECIMEN Ordering Facility: [facility] Address: [address] [place] [address] Performed By: #### 3 016-3, 11657-8, HSTNT, 13330-8, 90086-4, 81040-3 #### [facility] CLIA [id number] [address] [place] [facility] Hemoglobin (Bld) [Mass/Vol] 11.3 g/dL Low 13.0-17.0 [facility] Comment on above: Order Comment: Speci men Type: BLOOD SPECIMEN Ordering Facility: [facility] Address: [address] [place] [address] Performed By: #### 3 016-3, 82797-0, HSTNT, 56705-3, 83867-0, 21095-7 #### [facility] CLIA [id number] [address] [place] Lactate [Moles/Vol] 0.6 mmol/L Normal 0.5-2.2 [facility] Comment on above: Order Comment: Speci men Type: BLOOD SPECIMEN Ordering Facility: [facility] Address: [address] [place] [address] Performed By: #### 3 016-3, 17840-1, HSTNT, 32816-6, 08660-3, 53630-9 #### [facility] CLIA [id number] [address] [place] LITERS 4 Liters/min Normal [facility] Comment on above: Order Comment: Speci men Type: BLOOD SPECIMEN Ordering Facility: [facility] Address: [address] [place] [address] Performed By: #### 3 016-3, 26548-7, HSTNT, 97030-3, 01115-9, 14051-8 #### [facility] CLIA [id number] [address] [place] Methemoglobin (Bld) [Mass fraction] 1.0 % Normal 0.0-1.5 [facility] Comment on above: Order Comment: Speci men Type: BLOOD SPECIMEN Ordering Facility: [facility] Address: [address] [place] [address] Performed By: #### 3 016-3, 32617-8, HSTNT, 82655-4, 65124-4, 32285-4 #### [facility] CLIA [id number] [address] O2 THERAPY NC = Nasal Cannula Normal [facility] Comment on above: Order Comment: Speci men Type: BLOOD SPECIMEN Ordering Facility: [facility] Address: [address] [place] [address] Performed By: #### 3 016-3, 75390-9, HSTNT, 89518-2, 08164-5, 51084-1 #### [facility] CLIA [id number] [address] [place] Oxygen (Bld) [Partial pressure] 93 mm Hg Normal 85-95 [facility] Comment on above: Order Comment: Speci men Type: BLOOD SPECIMEN Ordering Facility: [facility] Address: [address] [place] [address] Performed By: #### 3 016-3, 37323-2, HSTNT, 74976-3, 50504-0, 90670-1 #### [facility] CLIA [id number] [address] [place] Oxygen adjusted to patient's actual temperature (Bld) [Partial pressure] 93 mmHg Normal 85-95 [facility] Comment on above: Order Comment: Speci men Type: BLOOD SPECIMEN Ordering Facility: [facility] Address: [address] [place] [address] Performed By: #### 3 016-3, 04007-2, HSTNT, 88950-1, 38078-1, 61479-5 #### [facility] CLIA [id number] [address] [place] [address] [place] Oxyhemoglobin (BldA) [Mass fraction] 95 % Normal 95-98 [facility] Comment on above: Order Comment: Speci men Type: BLOOD SPECIMEN Ordering Facility: [facility] Address: [address] [place] [address] Performed By: #### 3 016-3, 40224-8, HSTNT, 11437-0, 93386-1, 20789-5 #### [facility] CLIA [id number] [address] [place] [address] [place] pH (Bld) 7.38 [pH] Normal 7.35-7.45 [facility] Comment on above: Order Comment: Speci men Type: BLOOD SPECIMEN Ordering Facility: [facility] Address: [address] [place] [address] Performed By: #### 3 016-3, 38436-1, HSTNT, 84191-9, 84831-0, 54256-6 #### [facility] CLIA [id number] [address] [place] [address] [place] pH adjusted to patient's actual temperature (Bld) 7.38 Normal 7.35-7.45 [facility] Comment on above: Order Comment: Speci men Type: BLOOD SPECIMEN Ordering Facility: [facility] Address: [address] [place] [address] Performed By: #### 3 016-3, 54699-2, HSTNT, 43651-5, 92321-7, 48104-6 #### [facility] CLIA [id number] [address] [place] [address] [place] Potassium [Moles/Vol] 4.4 mmol/L Normal 3.5-5.0 [facility] Comment on above: Order Comment: Speci men Type: BLOOD SPECIMEN Ordering Facility: [facility] Address: [address] [place] [address] Performed By: #### 3 016-3, 32861-2, HSTNT, 27090-1, 62494-5, 16921-4 #### [facility] CLIA [id number] [address] [place] [address] [place] Sodium [Moles/Vol] 130 mmol/L Low 136-144 [facility] Comment on above: Order Comment: Speci men Type: BLOOD SPECIMEN Ordering Facility: [facility] Address: [address] [place] [address] Performed By: #### 3 016-3, 00849-7, HSTNT, 69991-0, 20147-0, 66322-6 #### [facility] CLIA [id number] [address] [place] [address] [place] Base deficit (BldA) [Moles/Vol] -3 mmol/L Low -2-0 [facility] Comment on above: Order Comment: Speci men Type: BLOOD SPECIMEN Ordering Facility: [facility] Address: [address] [place] [address] Performed By: #### 3 016-3, 63648-1, HSTNT, 23075-5, 40060-8, 66882-0 #### [facility] CLIA [id number] [address] [place] [address] [place] Body temperature 98.6 [degF] Normal [facility] Comment on above: Order Comment: Speci men Type: BLOOD SPECIMEN Ordering Facility: [facility] Address: [address] [place] [address] Performed By: #### 3 016-3, 46641-7, HSTNT, 13508-4, 78813-4, 71997-9 #### [facility] CLIA [id number] [address] [place] [address] [place] Calcium.ionized (BldV) [Mass/Vol] 1.33 mmol/L High 1.08-1.30 [facility] Comment on above: Order Comment: Speci men Type: BLOOD SPECIMEN Ordering Facility: [facility] Address: [address] [place] [address] Performed By: #### 3 016-3, 17539-7, HSTNT, 56406-5, 15028-6, 41874-3 #### [facility] CLIA [id number] [address] [place] [address] [place] [facility] Calcium.ionized adjusted to pH 7.4 (BldA) [Moles/Vol] 1.29 mmol/L Normal 1.08-1.30 [facility] Comment on above: Order Comment: Speci men Type: BLOOD SPECIMEN Ordering Facility: [facility] Address: [address] [place] [address] Performed By: #### 3 016-3, 19403-2, HSTNT, 17805-4, 07669-9, 32344-9 #### [facility] CLIA [id number] [address] [place] Carboxyhemoglobin (BldA) [Mass fraction] 0.9 % Normal 0.0-2.0 [facility] Comment on above: Order Comment: Speci men Type: BLOOD SPECIMEN Ordering Facility: [facility] Address: [address] [place] [address] Result Comment: Carb oxyhemoglobin Reference Range for Smokers: 2.0-8.0% Performed By: #### 3 016-3, 54987-2, HSTNT, 75538-4, 88514-7, 43666-7 #### [facility] CLIA [id number] [address] [place] [address] [place] Chloride [Moles/Vol] 103 mmol/L Normal 97-105 [facility] Comment on above: Order Comment: Speci men Type: BLOOD SPECIMEN Ordering Facility: [facility] Address: [address] [place] [address] Performed By: #### 3 016-3, 19069-6, HSTNT, 11994-8, 80097-9, 74740-0 #### [facility] CLIA [id number] [address] [place] [address] [place] CO2 (Bld) [Partial pressure] 44 mm Hg Normal 36-46 [facility] Comment on above: Order Comment: Speci men Type: BLOOD SPECIMEN Ordering Facility: [facility] Address: [address] [place] [address] Performed By: #### 3 016-3, 98012-6, HSTNT, 44866-3, 08252-7, 63865-7 #### [facility] CLIA [id number] [address] [place] [address] [place] Glucose [Mass/Vol] 148 mg/dL High 60-105 [facility] Comment on above: Order Comment: Speci men Type: BLOOD SPECIMEN Ordering Facility: [facility] Address: [address] [place] [address] Performed By: #### 3 016-3, 10339-6, HSTNT, 26217-1, 19676-7, 36672-9 #### [facility] CLIA [id number] [address] [place] [address] [place] HCO3 (Bld) [Moles/Vol] 23 mmol/L Normal 22-26 [facility] Comment on above: Order Comment: Speci men Type: BLOOD SPECIMEN Ordering Facility: [facility] Address: [address] [place] [address] Performed By: #### 3 016-3, 88371-2, HSTNT, 33365-9, 69537-4, 39497-8 #### [facility] CLIA [id number] [address] [place] [address] [place] Hematocrit (Bld) [Volume fraction] 35.9 % Low 39.0-51.0 [facility] Comment on above: Order Comment: Speci men Type: BLOOD SPECIMEN Ordering Facility: [facility] Address: [address] [place] [address] Performed By: #### 3 016-3, 20454-6, HSTNT, 14244-5, 20151-7, 80297-3 #### [facility] CLIA [id number] [address] Hemoglobin (Bld) [Mass/Vol] 11.7 g/dL Low 13.0-17.0 [facility] Comment on above: Order Comment: Speci men Type: BLOOD SPECIMEN Ordering Facility: [facility] Address: [address] [place] [address] Performed By: #### 3 016-3, 37256-3, HSTNT, 80082-3, 29942-3, 84087-7 #### [facility] CLIA [id number] [address] [place] Lactate [Moles/Vol] 3.0 mmol/L High 0.5-2.2 [facility] Comment on above: Order Comment: Speci men Type: BLOOD SPECIMEN Ordering Facility: [facility] Address: [address] [place] [address] Performed By: #### 3 016-3, 07361-7, HSTNT, 68691-2, 08497-6, 32135-8 #### [facility] CLIA [id number] [address] [place] Methemoglobin (Bld) [Mass fraction] 1.0 % Normal 0.0-1.5 [facility] Comment on above: Order Comment: Speci men Type: BLOOD SPECIMEN Ordering Facility: [facility] Address: [address] [place] [address] Performed By: #### 3 016-3, 48305-0, HSTNT, 49420-5, 64174-5, 85143-1 #### [facility] CLIA [id number] [address] [place] O2 THERAPY VENT=Ventilator Normal [facility] Comment on above: Order Comment: Speci men Type: BLOOD SPECIMEN Ordering Facility: [facility] Address: [address] [place] [address] Performed By: #### 3 016-3, 57335-0, HSTNT, 88750-4, 55231-7, 19520-5 #### [facility] CLIA [id number] [address] [place] [address] [place] Oxygen (Bld) [Partial pressure] 228 mm Hg High 85-95 [facility] Comment on above: Order Comment: Speci men Type: BLOOD SPECIMEN Ordering Facility: [facility] Address: [address] [place] [address] Performed By: #### 3 016-3, 46821-6, HSTNT, 10655-6, 96748-1, 34415-4 #### [facility] CLIA [id number] [address] [place] [address] [place] Oxyhemoglobin (BldA) [Mass fraction] 98 % Normal 95-98 [facility] Comment on above: Order Comment: Speci men Type: BLOOD SPECIMEN Ordering Facility: [facility] Address: [address] [place] [address] Performed By: #### 3 016-3, 75410-2, HSTNT, 44844-7, 58885-8, 75186-9 #### [facility] CLIA [id number] [address] [place] [address] [place] pH (Bld) 7.34 [pH] Low 7.35-7.45 [facility] Comment on above: Order Comment: Speci men Type: BLOOD SPECIMEN Ordering Facility: [facility] Address: [address] [place] [address] Performed By: #### 3 016-3, 34822-5, HSTNT, 91017-6, 75745-7, 78290-0 #### [facility] CLIA [id number] [address] [place] [address] [place] Potassium [Moles/Vol] 3.5 mmol/L Normal 3.5-5.0 [facility] Comment on above: Order Comment: Speci men Type: BLOOD SPECIMEN Ordering Facility: [facility] Address: [address] [place] [address] Performed By: #### 3 016-3, 31725-0, HSTNT, 03704-0, 44279-6, 28915-1 #### [facility] CLIA [id number] [address] [place] [address] [place] Sodium [Moles/Vol] 132 mmol/L Low 136-144 [facility] Comment on above: Order Comment: Speci men Type: BLOOD SPECIMEN Ordering Facility: [facility] Address: [address] [place] [address] Performed By: #### 3 016-3, 71947-3, HSTNT, 91956-5, 26962-6, 05099-3 #### [facility] CLIA [id number] [address] [place] [address] [place] Basic metabolic 2000 panelon 03-02-2025 Anion gap [Moles/Vol] 11 mmol/L Normal 8-15 [facility] Comment on above: Order Comment: Speci men Type: BLOOD SPECIMEN Ordering Facility: [facility] Address: [address] [place] [address] Performed By: #### 3 016-3, 72491-8, HSTNT, 58204-6, 48819-0, 98269-7 #### [facility] CLIA [id number] [address] [place] Calcium [Mass/Vol] 9.3 mg/dL Normal 8.5-10.2 [facility] Comment on above: Order Comment: Speci men Type: BLOOD SPECIMEN Ordering Facility: [facility] Address: [address] [place] [address] Performed By: #### 3 016-3, 92665-8, HSTNT, 47927-4, 41428-9, 23264-1 #### [facility] CLIA [id number] [address] [place] Chloride [Moles/Vol] 102 mmol/L Normal 98-107 [facility] Comment on above: Order Comment: Speci men Type: BLOOD SPECIMEN Ordering Facility: [facility] Address: [address] [place] [address] Performed By: #### 3 016-3, 61729-1, HSTNT, 32986-9, 32344-0, 82827-2 #### [facility] CLIA [id number] [address] [place] [address] [place] CO2 [Moles/Vol] 22 mmol/L Normal 22-30 [facility] Comment on above: Order Comment: Speci men Type: BLOOD SPECIMEN Ordering Facility: [facility] Address: [address] [place] [address] Performed By: #### 3 016-3, 38313-7, HSTNT, 40550-9, 69757-3, 94368-1 #### [facility] CLIA [id number] [address] [place] Creatinine [Mass/Vol] 1.00 mg/dL Normal 0.73-1.22 [facility] Comment on above: Order Comment: Speci men Type: BLOOD SPECIMEN Ordering Facility: [facility] Address: [address] [place] [address] Performed By: #### 3 016-3, 94739-2, HSTNT, 65383-3, 03926-9, 20948-4 #### [facility] CLIA [id number] [address] [place] eGFRcr SerPlBld CKD-EPI 2020 74 mL/min/1.73m??? Normal >=60 [facility] Comment on above: Order Comment: Speci men Type: BLOOD SPECIMEN Ordering Facility: [facility] Address: [address] [place] [address] Result Comment: Monie mated Glomerular Filtration Rate [...] actual GFR. Performed By: #### 3 016-3, 77308-3, HSTNT, 77717-2, 10453-6, 98847-5 #### [facility] CLIA [id number] [address] [place] [address] [place] Glucose [Mass/Vol] 147 mg/dL High 74-99 [facility] Comment on above: Order Comment: Sharon shaw Type: BLOOD SPECIMEN Ordering Facility: [facility] Address: [address] [place] [address] Result Comment: The [place] [employer] (ADA) provides guidance for cutoff [...] Standards of Medical Care in Diabetes 2016, [place] [employer]. Diabetes Care. 2016.39(Suppl 1). Performed By: #### 3 016-3, 78568-2, HSTNT, 98122-1, 66149-7, 38489-1 #### [facility] CLIA [id number] [address] [place] [address] [place] Potassium [Moles/Vol] 3.6 mmol/L Low 3.7-5.1 [facility] Comment on above: Order Comment: Sharon shaw Type: BLOOD SPECIMEN Ordering Facility: [facility] Address: [address] [place] [address] Performed By: #### 3 016-3, 69533-4, HSTNT, 99547-3, 08873-3, 40858-4 #### [facility] CLIA [id number] [address] [place] [address] [place] Sodium [Moles/Vol] 135 mmol/L Low 136-144 [facility] Comment on above: Order Comment: Sharon shaw Type: BLOOD SPECIMEN Ordering Facility: [facility] Address: [address] [place] [address] Performed By: #### 3 016-3, 56439-1, HSTNT, 07498-9, 99644-2, 53109-5 #### [facility] CLIA [id number] [address] [place] [address] [place] Urea nitrogen [Mass/Vol] 14 mg/dL Normal 9-24 [facility] Comment on above: Order Comment: Speci men Type: BLOOD SPECIMEN Ordering Facility: [facility] Address: [address] [place] [address] Performed By: #### 3 016-3, 17754-1, HSTNT, 32873-3, 35922-3, 12777-7 #### [facility] CLIA [id number] [address] [place] [address] [place] Anion gap [Moles/Vol] 10 mmol/L Normal 8-15 [facility] Comment on above: Order Comment: Speci men Type: BLOOD SPECIMEN Ordering Facility: [facility] Address: [address] [place] [address] Performed By: #### 3 016-3, 57801-9, HSTNT, 33560-0, 01008-2, 34087-8 #### [facility] CLIA [id number] [address] [place] [address] [place] Calcium [Mass/Vol] 9.4 mg/dL Normal 8.5-10.2 [facility] Comment on above: Order Comment: Speci men Type: BLOOD SPECIMEN Ordering Facility: [facility] Address: [address] [place] [address] Performed By: #### 3 016-3, 70804-6, HSTNT, 27484-1, 77340-1, 94430-5 #### [facility] CLIA [id number] [address] [place] [address] [place] Chloride [Moles/Vol] 100 mmol/L Normal 98-107 [facility] Comment on above: Order Comment: Speci men Type: BLOOD SPECIMEN Ordering Facility: [facility] Address: [address] [place] [address] Performed By: #### 3 016-3, 85370-0, HSTNT, 47525-3, 81195-6, 43058-2 #### [facility] CLIA [id number] [address] [place] [address] [place] CO2 [Moles/Vol] 26 mmol/L Normal 22-30 [facility] Comment on above: Order Comment: Speci colin Type: BLOOD SPECIMEN Ordering Facility: [facility] Address: [address] [place] [address] Performed By: #### 3 016-3, 02340-3, HSTNT, 92549-1, 26815-4, 00408-1 #### [facility] CLIA [id number] [address] [place] [address] [place] Creatinine [Mass/Vol] 1.21 mg/dL Normal 0.73-1.22 [facility] Comment on above: Order Comment: Speci men Type: BLOOD SPECIMEN Ordering Facility: [facility] Address: [address] [place] [address] Performed By: #### 3 016-3, 47565-8, HSTNT, 14235-5, 19153-3, 04218-5 #### [facility] [facility] CLIA [id number] [address] [place] eGFRcr SerPlBld CKD-EPI 2020 59 mL/min/1.73m??? Low >=60 [facility] Comment on above: Order Comment: Sharon shaw Type: BLOOD SPECIMEN Ordering Facility: [facility] Address: [address] [place] [address] Result Comment: Monie mated Glomerular Filtration Rate [...] actual GFR. Performed By: #### 3 016-3, 98104-3, HSTNT, 13838-8, 80054-8, 62768-8 #### [facility] CLIA [id number] [address] [place] [address] [place] Glucose [Mass/Vol] 100 mg/dL High 74-99 [facility] Comment on above: Order Comment: Sharon shaw Type: BLOOD SPECIMEN Ordering Facility: [facility] Address: [address] [place] [address] Result Comment: The [place] Diabetes Association (ADA) provides guidance for cutoff [...] Standards of Medical Care in Diabetes 2016, [place] [employer]. Diabetes Care. 2016.39(Suppl 1). Performed By: #### 3 016-3, 19370-8, HSTNT, 88705-9, 78311-2, 43161-6 #### [facility] CLIA [id number] [address] [place] [address] [place] Potassium [Moles/Vol] 4.1 mmol/L Normal 3.7-5.1 [facility] Comment on above: Order Comment: Sharon shaw Type: BLOOD SPECIMEN Ordering Facility: [facility] Address: [address] [place] [address] Performed By: #### 3 016-3, 91304-2, HSTNT, 31207-0, 81851-4, 04989-3 #### [facility] CLIA [id number] [address] [place] [address] [place] Sodium [Moles/Vol] 136 mmol/L Normal 136-144 [facility] Comment on above: Order Comment: Sharon shaw Type: BLOOD SPECIMEN Ordering Facility: [facility] Address: [address] [place] [address] Performed By: #### 3 016-3, 93923-2, HSTNT, 81927-3, 09687-1, 96971-3 #### [facility] CLIA [id number] [address] [place] [address] [place] Urea nitrogen [Mass/Vol] 16 mg/dL Normal 9-24 [facility] Comment on above: Order Comment: Speci men Type: BLOOD SPECIMEN Ordering Facility: [facility] Address: [address] [place] [address] Performed By: #### 3 016-3, 23533-4, HSTNT, 91895-2, 25706-0, 37063-0 #### [facility] CLIA [id number] [address] [place] [address] [place] CBC panel Auto (Bld)on 03-02 Erythrocyte distribution width (RBC) [Ratio] 12.4 % Normal 11.5-15.0 [facility] Comment on above: Order Comment: Speci men Type: BLOOD SPECIMEN Ordering Facility: [facility] Address: [address] [place] [address] Performed By: #### 3 016-3, 75607-9, HSTNT, 99123-5, 34559-9, 97794-3 #### [facility] CLIA [id number] [address] [place] Hematocrit (Bld) [Volume fraction] 33.1 % Low 39.0-51.0 [facility] Comment on above: Order Comment: Speci men Type: BLOOD SPECIMEN Ordering Facility: [facility] Address: [address] [place] [address] Performed By: #### 3 016-3, 43168-9, HSTNT, 18415-9, 42819-6, 01338-3 #### [facility] CLIA [id number] [address] [place] [address] [place] Hemoglobin (Bld) [Mass/Vol] 11.6 g/dL Low 13.0-17.0 [facility] Comment on above: Order Comment: Speci men Type: BLOOD SPECIMEN Ordering Facility: [facility] Address: [address] [place] [address] Performed By: #### 3 016-3, 74249-0, HSTNT, 57484-2, 96141-1, 14030-5 #### [facility] CLIA [id number] [address] MCH (RBC) [Entitic mass] 32.0 pg Normal 26.0-34.0 [facility] Comment on above: Order Comment: Speci men Type: BLOOD SPECIMEN Ordering Facility: [facility] Address: [address] [place] [address] Performed By: #### 3 016-3, 49289-5, HSTNT, 12079-7, 25055-5, 57495-3 #### [facility] CLIA [id number] [address] MCHC (RBC) [Mass/Vol] 35.0 g/dL Normal 30.5-36.0 [facility] Comment on above: Order Comment: Speci men Type: BLOOD SPECIMEN Ordering Facility: [facility] Address: [address] [place] [address] Performed By: #### 3 016-3, 32515-7, HSTNT, 37995-3, 25987-2, 23804-2 #### [facility] CLIA [id number] [address] MCV (RBC) [Entitic vol] 91.2 fL Normal 80.0-100.0 [facility] Comment on above: Order Comment: Speci men Type: BLOOD SPECIMEN Ordering Facility: [facility] Address: [address] [place] [address] Performed By: #### 3 016-3, 84638-9, HSTNT, 99197-8, 02128-7, 66682-2 #### [facility] CLIA [id number] [address] Nucleated RBC (Bld) [#/Vol] 10*3/uL Normal <0.01 [facility] Comment on above: Order Comment: Speci men Type: BLOOD SPECIMEN Ordering Facility: [facility] Address: [address] [place] [address] Performed By: #### 3 016-3, 43579-0, HSTNT, 81848-9, 23708-8, 47504-4 #### [facility] CLIA [id number] [address] [place] Platelet mean volume (Bld) [Entitic vol] 10.5 fL Normal 9.0-12.7 [facility] Comment on above: Order Comment: Speci men Type: BLOOD SPECIMEN Ordering Facility: [facility] Address: [address] [place] [address] Performed By: #### 3 016-3, 77748-4, HSTNT, 89859-8, 40830-4, 16309-9 #### [facility] CLIA [id number] [address] Platelets (Bld) [#/Vol] 166 10*3/uL Normal 150-400 [facility] Comment on above: Order Comment: Speci men Type: BLOOD SPECIMEN Ordering Facility: [facility] Address: [address] [place] [address] Performed By: #### 3 016-3, 63247-4, HSTNT, 87903-6, 87479-7, 21895-7 #### [facility] CLIA [id number] [address] [place] RBC (Bld) [#/Vol] 3.63 10*6/uL Low 4.20-6.00 [facility] Comment on above: Order Comment: Speci men Type: BLOOD SPECIMEN Ordering Facility: [facility] Address: [address] [place] [address] Performed By: #### 3 016-3, 50720-2, HSTNT, 49083-0, 20332-0, 56718-8 #### [facility] CLIA [id number] [address] [place] WBC (Bld) [#/Vol] 25.71 10*3/uL High 3.70-11.00 [facility] Comment on above: Order Comment: Speci men Type: BLOOD SPECIMEN Ordering Facility: [facility] Address: [address] [place] [address] Performed By: #### 3 016-3, 48509-2, HSTNT, 04771-7, 83267-0, 47166-0 #### [facility] CLIA [id number] [address] Erythrocyte distribution width (RBC) [Ratio] 12.3 % Normal 11.5-15.0 [facility] Comment on above: Order Comment: Speci men Type: BLOOD SPECIMEN Ordering Facility: [facility] Address: [address] [place] [address] Performed By: #### 3 016-3, 42038-6, HSTNT, 75035-3, 96289-6, 65510-3 #### [facility] CLIA [id number] [address] [place] [address] Hematocrit (Bld) [Volume fraction] 43.4 % Normal 39.0-51.0 [facility] Comment on above: Order Comment: Speci men Type: BLOOD SPECIMEN Ordering Facility: [facility] Address: [address] [place] [address] Performed By: #### 3 016-3, 38482-0, HSTNT, 96163-9, 15097-8, 48499-9 #### [facility] CLIA [id number] [address] [place] [address] [place] Hemoglobin (Bld) [Mass/Vol] 14.7 g/dL Normal 13.0-17.0 [facility] Comment on above: Order Comment: Speci men Type: BLOOD SPECIMEN Ordering Facility: [facility] Address: [address] [place] [address] Performed By: #### 3 016-3, 97814-0, HSTNT, 88437-7, 05327-6, 94473-2 #### [facility] CLIA [id number] [address] [place] MCH (RBC) [Entitic mass] 31.3 pg Normal 26.0-34.0 [facility] Comment on above: Order Comment: Speci men Type: BLOOD SPECIMEN Ordering Facility: [facility] Address: [address] [place] [address] Performed By: #### 3 016-3, 87229-0, HSTNT, 49067-7, 51263-9, 74056-8 #### [facility] CLIA [id number] [address] MCHC (RBC) [Mass/Vol] 33.9 g/dL Normal 30.5-36.0 [facility] Comment on above: Order Comment: Speci men Type: BLOOD SPECIMEN Ordering Facility: [facility] Address: [address] [place] [address] Performed By: #### 3 016-3, 20680-4, HSTNT, 97841-4, 86098-5, 90585-5 #### [facility] CLIA [id number] [address] [place] [facility] MCV (RBC) [Entitic vol] 92.3 fL Normal 80.0-100.0 [facility] Comment on above: Order Comment: Speci men Type: BLOOD SPECIMEN Ordering Facility: [facility] Address: [address] [place] [address] Performed By: #### 3 016-3, 40149-1, HSTNT, 59764-0, 83674-6, 65239-2 #### [facility] CLIA [id number] [address] [place] [facility] Nucleated RBC (Bld) [#/Vol] 10*3/uL Normal <0.01 [facility] Comment on above: Order Comment: Speci men Type: BLOOD SPECIMEN Ordering Facility: [facility] Address: [address] [place] [address] Performed By: #### 3 016-3, 46603-6, HSTNT, 53030-8, 68669-1, 59334-5 #### [facility] CLIA [id number] [address] Platelet mean volume (Bld) [Entitic vol] 10.6 fL Normal 9.0-12.7 [facility] Comment on above: Order Comment: Speci men Type: BLOOD SPECIMEN Ordering Facility: [facility] Address: [address] [place] [address] Performed By: #### 3 016-3, 89711-9, HSTNT, 28355-7, 60448-4, 60418-7 #### [facility] CLIA [id number] [address] [facility] Platelets (Bld) [#/Vol] 222 10*3/uL Normal 150-400 [facility] Comment on above: Order Comment: Speci men Type: BLOOD SPECIMEN Ordering Facility: [facility] Address: [address] [place] [address] Performed By: #### 3 016-3, 17480-5, HSTNT, 86595-1, 84791-0, 48262-3 #### [facility] CLIA [id number] [address] RBC (Bld) [#/Vol] 4.70 10*6/uL Normal 4.20-6.00 [facility] Comment on above: Order Comment: Speci men Type: BLOOD SPECIMEN Ordering Facility: [facility] Address: [address] [place] [address] Performed By: #### 3 016-3, 18221-8, HSTNT, 61047-9, 18381-4, 31470-9 #### [facility] CLIA [id number] [address] [place] WBC (Bld) [#/Vol] 8.49 10*3/uL Normal 3.70-11.00 [facility] Comment on above: Order Comment: Speci men Type: BLOOD SPECIMEN Ordering Facility: [facility] Address: [address] [place] [address] Performed By: #### 3 016-3, 46951-2, HSTNT, 28850-1, 27455-1, 33147-2 #### [facility] CLIA [id number] [address] [facility] CONSULTon 11-11-2025 CONSULT HNO ID: [id number] Author: HERNANDEZ RENE MD Service: Critical Care Author Type: Physician Type: Consults Filed: 03/02/2025 17:53 Note Text: CRITICAL CARE CONSULT NOTE SERVICE DATE: March 02, 2025 Admission Date: 02/24/2025 Consulted by: Dr. Sagastume Reason for Consult: s/p CABG AGE: [age] year old LOS: 5 days Subjective 85 year old male who presents as transfer from [facility]. He was mowing the grass last week and was experiencing exertional shortness of breath with some right sided chest discomfort. He was admitted to [facility] and diagnosed with NSTEMI. Cardiac catheterization revealed severe 3-vessel CAD. Transferred to [facility] for consideration of CABG. 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 Normal [facility] ECG COMPLETEon 03-02-2025 ECG COMPLETE Ventricular Rate : 8 2 BPM QRS Duration : 94 ms Q-T Interval : 464 ms QTC Calculation(Bazett) : 542 ms Calculated R Almond : 33 degrees Calculated T Almond : 54 degrees SINUS RHYTHM WITH BRIEF RUNS OF AFIB NONSPECIFIC ST AND T WAVE ABNORMALITY PROLONGED QT ABNORMAL ECG WHEN COMPARED WITH ECG OF 01-Mar-2025 12:55, ATRIAL FIBRILLATION HAS REPLACED SINUS RHYTHM QT HAS LENGTHENED Confirmed by MD HOPPER VINAY ([id number]) on 03/03/2025 12:27:40 PM NAME : ELSA PALACIO PID : [id number] : 1940 Gender : Male Race : ORD : [id number] Procedure Date : Mar 02 2025 14:10:01 Edit Date : Mar 03 2025 12:27:44 Diagnosis: SINUS RHYTHM WITH BRIEF RUNS OF AFIB NONSPECIFIC ST AND T WAVE ABNORMALITY PROLONGED QT ABNORMAL ECG WHEN COMPARED WITH ECG OF 01-Mar-2025 12:55, ATRIAL FIBRILLATION HAS REPLACED SINUS RHYTHM QT HAS LENGTHENED Confirmed by MD HOPPER VINAY ([id number]) on 03/03/2025 12:27:40 PM Test Reason : Post-OP Location : [address] : [place] [address] Overread By : MD HOPPER VINAY Edited By : MD HOPPER VINAY Referred By : SHAWN CHAU Acquired by : JADEN US [facility] Fibrinogen PPP-mCncon 2024 Fibrinogen Coag (PPP) [Mass/Vol] 159 mg/dL Low 200-400 [facility] Comment on above: Order Comment: Speci colin Type: BLOOD SPECIMEN Order[facility] Address: [address] [place] [address] Performed By: #### 3 016-3, 89651-9, HSTNT, 56147-1, 50853-5, 31957-1 #### [facility] CLIA [id number] [address] Magnesium SerPl-ncon 03-02 Magnesium [Mass/Vol] 2.4 mg/dL High 1.7-2.3 [facility] Comment on above: Order Comment: Speci men Type: BLOOD SPECIMEN Ordering Facility: [facility] Address: [address] [place] [address] Performed By: #### 3 016-3, 00872-9, HSTNT, 37989-8, 65782-2, 47135-8 #### [facility] CLIA [id number] [address] [facility] Magnesium [Mass/Vol] 2.0 mg/dL Normal 1.7-2.3 [facility] Comment on above: Order Comment: Speci men Type: BLOOD SPECIMEN Order[facility] Facility[facility] Address: [address] [place] [address] Performed By: #### 3 016-3, 52678-6, HSTNT, 07228-0, 89603-6, 37585-6 #### [facility] CLIA [id number] [address] [place] OPERATIVE NOon 03-02-2025 OPERATIVE NO HNO ID: [id number] Author: JOHN SAGASTUME MD Service: Cardiac Surgery Author Type: Physician Type: Operative Report Filed: 03/02/2025 15:01 Note Text: [facility] CARDIO-THORACICSURGER Y OPERATIVE/PROCEDURE REPORT LOG ID: [id number] SURGERY/PROCEDURE DATE: 03/02/2025 INCISION/PROCEDURE START TIME: 8:23 AM INCISION CLOSE/PROCEDURE END TIME: 1:32 PM SURGEON(S)/PROCEDURAL IST(S) AND SEWING MACHINE REPAIRER(S): Surgeons and Role: * John Sagastume MD - Primary * Evgeny White MD - Resident - Assisting Physician Charter Driver: Shanique Degroot PA-C; Rita Henley PA-C ANESTHESIA: [...] to side diagonal 1 Left SAM: Skeletonized [place] Technique: Direct vision (open) Vein(s) Harvested: Left [...] cell saver. Specimens: None Complex Surgery: No Surgeon/Charter Driver Participation: The primary Surgeon/Proceduralist performed the procedure with assistance. Roll Slicing Machine Tender: opened, closed and harvested grafts Second Assist: closed, harvested grafts and opened SPECIMENS: COMPLETED BY: Evgeny White MD PATIENT NAME: Elsa Palacio DATE: March 02, 2025 TIME: 1:35 PM AGE: [age] year old .surgatt Normal [facility] POTASSIUMon 03-02-2025 Potassium [Moles/Vol] 4.9 mmol/L Normal 3.7-5.1 [facility] Comment on above: Order Comment: Sharon shaw Type: BLOOD SPECIMEN [facility] Address: [address] [place] [address] Performed By: #### 3 016-3, 98568-2, HSTNT, 70054-2, 34357-2, 95512-1 #### [facility] CLIA [id number] [address] [facility] PT panel Coag (PPP)on 2024 INR Coag (PPP) [Relative time] 1.3 {INR} Normal 0.9-1.3 [facility] Comment on above: Order Comment: Sharon shaw Type: BLOOD SPECIMEN Order[facility] Facility: [facility] Address: [address] [place] [address] Result Comment: Sigrid min K Antagonist (VKA) Therapeutic Range: INR 2 to 3 (Target INR of 2.5) Note: For patients treated with VKA drugs, such as warfarin, the [place] [employer]icians 2012 Guideline recommends [...] Chest 2012, 141:7S-47S Jose RA, et al. [facility] 2017, 70: 252-289 Performed By: #### 3 016-3, 09165-2, HSTNT, 20324-8, 66907-2, 15421-1 #### [facility] CLIA [id number] [address] [place] PT Coag (PPP) [Time] 13.1 s High 9.7-13.0 [facility] Comment on above: Order Comment: Speci men Type: BLOOD SPECIMEN Ordering Facility[facility] Address: [address] [place] [address] Performed By: #### 3 016-3, 10223-1, HSTNT, 34269-1, 04635-3, 66377-4 #### [facility] CLIA [id number] [address] [facility] THERAPY NTon 03-02-2025 THERAPY NT HNO ID: [id number] Author: HERMINIA CORDERO RRT Service: Respiratory Therapy Author Type: Registered Resp Therapist Type: Therapy (PT/OT/Speech/Resp) Filed: 03/02/2025 16:50 Note Text: Summary: Extubation parameters RESPIRATORY THERAPY PROGRESS NOTE SERVICE DATE: 03/02/2025 03/02/25 9090 Extubation Parameters $Extubation Parameters $Extubation Parameters Performed [...] Adequate Cough/Gag Reflex Y Normal [facility] XR CHEST 1V FRONTALon 2024 [...] with tip directed laterally and inferiorly. Overlying campus monitor leads. Lungs and pleura: No pneumothorax. Minimal atelectasis at the lung bases. Lungs are otherwise grossly clear. Cardiomediastinal silhouette: Normal cardiomediastinal silhouette. Other: No significant additional findings. IMPRESSION: 1. Lines and tubes as noted. 2. Minimal atelectasis at the lung bases. [employer]: GAEL Transcribe Date/Time: Mar 02 2025 3:12P Dictated by : NEIL CARTER MD This examination was interpreted and the report reviewed and electronically signed by: NEIL CARTER MD on Mar 02 2025 3:13PM EST [id number] Normal [facility] aPTT PPPon 03-02-2025 aPTT Coag (PPP) [Time] 27.3 s Normal 23.0-32.4 [facility] Comment on above: Order Comment: Speci men Type: BLOOD SPECIMEN Order[facility] Facility[facility] Address: [address] [place] [address] Performed By: #### 3 016-3, 70626-1, T, 68731-3, 91287-2, 23531-6 #### [facility] CLIA [id number] [address] [place] [address] [place] Basic metabolic 2000 panelon 03-01-2025 Anion gap [Moles/Vol] 12 mmol/L Normal 8-15 [facility] Comment on above: Order Comment: Speci men Type: BLOOD SPECIMEN Ordering Facility[facility] Address: [address] [place] [address] Performed By: #### 1 9123-9, 70549-2 #### [facility] CLIA [id number] [address] [place] [address] [place] Calcium [Mass/Vol] 9.1 mg/dL Normal 8.5-10.2 [facility] Comment on above: Order Comment: Speci men Type: BLOOD SPECIMEN Order[facility] Facility[facility] Address: [address] [place] [address] Performed By: #### 1 91239, 34239-7 #### [facility] CLIA [id number] [address] [place] [address] [place] Chloride [Moles/Vol] 101 mmol/L Normal 98-107 [facility] Comment on above: Order Comment: Speci men Type: BLOOD SPECIMEN [facility] Facility[facility] Address: [address] [place] [address] Performed By: #### 1 91239, 51738-0 #### [facility] CLIA [id number] [address] [place] [address] [place] CO2 [Moles/Vol] 21 mmol/L Low 22-30 [facility] Comment on above: Order Comment: Speci men Type: BLOOD SPECIMEN Ordering Facility[facility] Address: [address] [place] [address] Performed By: #### 1 9123-9, 10202-9 #### [facility] CLIA [id number] [address] [place] [address] [place] Creatinine [Mass/Vol] 1.07 mg/dL Normal 0.73-1.22 [facility] Comment on above: Order Comment: Sharon shaw Type: BLOOD SPECIMEN Ordering Facility: [facility] Address: [address] [place] [address] Performed By: #### 1 9123-9, 39280-1 #### [facility] CLIA [id number] [address] [place] [address] [place] eGFRcr SerPlBld CKD-EPI 2020 68 mL/min/1.73m??? Normal >=60 [facility] Comment on above: Order Comment: Sharon shaw Type: BLOOD SPECIMEN Ordering Facility: [facility] Address: [address] [place] [address] Result Comment: Monie mated Glomerular Filtration Rate [...] actual GFR. Performed By: #### 1 9123-9, 46247-7 #### [facility] CLIA [id number] [address] [place] [address] [place] Glucose [Mass/Vol] 99 mg/dL Normal 74-99 [facility] Comment on above: Order Comment: Sharon colin Type: BLOOD SPECIMEN Ordering Facility: [facility] Address: [address] [place] [address] Result Comment: The [place] [employer] (ADA) provides guidance for cutoff [...] Standards of Medical Care in Diabetes 2016, [place] [employer]. Diabetes Care. 2016.39(Suppl 1). Performed By: #### 1 9123-9, 35525-3 #### [facility] CLIA [id number] [address] [place] Potassium [Moles/Vol] 4.2 mmol/L Normal 3.7-5.1 [facility] Comment on above: Order Comment: Speci men Type: BLOOD SPECIMEN Order[facility] Facility[facility] Address: [address] [place] [address] Performed By: #### 1 9123-9, 01585-0 #### [facility] CLIA [id number] [address] [place] Sodium [Moles/Vol] 134 mmol/L Low 136-144 [facility] Comment on above: Order Comment: Speci men Type: BLOOD SPECIMEN Order[facility] Facility[facility] Address: [address] [place] [address] Performed By: #### 1 91239, 85941-7 #### [facility] CLIA [id number] [address] [facility] Urea nitrogen [Mass/Vol] 17 mg/dL Normal 9-24 [facility] Comment on above: Order Comment: Speci men Type: BLOOD SPECIMEN Order[facility] Facility[facility] Address: [address] [place] [address] Performed By: #### 1 91239, 27596-2 #### [facility] CLIA [id number] [address] [place] CBC panel Auto (Bld)on 03-01 Erythrocyte distribution width (RBC) [Ratio] 12.3 % Normal 11.5-15.0 [facility] Comment on above: Order Comment: Speci men Type: BLOOD SPECIMEN Ordering Facility: [facility] Address: [address] [place] [address] Performed By: #### 5 8410-2 #### [facility] CLIA [id number] [address] [place] Hematocrit (Bld) [Volume fraction] 41.8 % Normal 39.0-51.0 [facility] Comment on above: Order Comment: Speci men Type: BLOOD SPECIMEN Ordering Facility: [facility] Address: [address] [place] [address] Performed By: #### 5 8410-2 #### [facility] CL[facility] [id number] [address] [facility] Hemoglobin (Bld) [Mass/Vol] 14.3 g/dL Normal 13.0-17.0 [facility] Comment on above: Order Comment: Speci men Type: BLOOD SPECIMEN Ordering Facility: [facility] Address: [address] [place] [address] Performed By: #### 5 8410-2 #### [facility] CLIA [id number] [address] [facility] MCH (RBC) [Entitic mass] 31.1 pg Normal 26.0-34.0 [facility] Comment on above: Order Comment: Speci men Type: BLOOD SPECIMEN Ordering Facility: [facility] Address: [address] [place] [address] Performed By: #### 5 8410-2 #### [facility] CLIA [id number] [address] [facility] MCHC (RBC) [Mass/Vol] 34.2 g/dL Normal 30.5-36.0 [facility] Comment on above: Order Comment: Speci men Type: BLOOD SPECIMEN Ordering Facility: [facility] Address: [address] [place] [address] Performed By: #### 5 8410-2 #### [facility] CLIA [id number] [address] [place] MCV (RBC) [Entitic vol] 90.9 fL Normal 80.0-100.0 [facility] Comment on above: Order Comment: Speci men Type: BLOOD SPECIMEN Ordering Facility: [facility] Address: [address] [place] [address] Performed By: #### 5 8410-2 #### [facility] CLIA [id number] [address] [place] Nucleated RBC (Bld) [#/Vol] 10*3/uL Normal <0.01 [facility] Comment on above: Order Comment: Speci men Type: BLOOD SPECIMEN Ordering Facility: [facility] Address: [address] [place] [address] Performed By: #### 5 8410-2 #### [facility] CLIA [id number] [address] [place] Platelet mean volume (Bld) [Entitic vol] 10.9 fL Normal 9.0-12.7 [facility] Comment on above: Order Comment: Speci men Type: BLOOD SPECIMEN Ordering Facility: [facility] Address: [address] [place] [address] Performed By: #### 5 8410-2 #### [facility] CLIA [id number] [address] [place] Platelets (Bld) [#/Vol] 201 10*3/uL Normal 150-400 [facility] Comment on above: Order Comment: Speci men Type: BLOOD SPECIMEN Ordering Facility: [facility] Address: [address] [place] [address] Performed By: #### 5 8410-2 #### [facility] CLIA [id number] [address] [place] RBC (Bld) [#/Vol] 4.60 10*6/uL Normal 4.20-6.00 [facility] Comment on above: Order Comment: Speci men Type: BLOOD SPECIMEN Ordering Facility: [facility] Address: [address] [place] [address] Performed By: #### 5 8410-2 #### [facility] CLIA [id number] [address] [place] WBC (Bld) [#/Vol] 7.95 10*3/uL Normal 3.70-11.00 [facility] Comment on above: Order Comment: Speci men Type: BLOOD SPECIMEN Ordering Facility: [facility] Address: [address] [place] [address] [place] [address] Performed By: #### 5 8410-2 #### [facility] CLIA [id number] [address] [place] EKGon 03-01-2025 Electrocardiogram Ventricular Rate : 6 5 BPM Atrial Rate : 60 BPM P-R Interval : 256 ms QRS Duration : 92 ms Q-T Interval : 442 ms QTC Calculation(Bazett) : 459 ms Calculated P Almond : 38 degrees Calculated R Almond : 2 degrees Calculated T Almond : 45 degrees SINUS RHYTHM WITH MARKED SINUS ARRHYTHMIA WITH 1ST DEGREE A-V BLOCK NONSPECIFIC ST ABNORMALITY ABNORMAL ECG WHEN COMPARED WITH ECG OF 28-Feb-2025 11:14, PREMATURE ATRIAL COMPLEXES ARE NO LONGER PRESENT Confirmed by MD HOPPER VINAY ([id number]) on 03/02/2025 6:13:12 PM NAME : ELSA PALACIO PID : [id number] : 1940 Gender : Male Race : ORD : Procedure Date : Mar 01 2025 12:55:06 Edit Date : Mar 02 2025 18:13:17 Diagnosis: SINUS RHYTHM WITH MARKED SINUS ARRHYTHMIA WITH 1ST DEGREE A-V BLOCK NONSPECIFIC ST ABNORMALITY ABNORMAL ECG WHEN COMPARED WITH ECG OF 28-Feb-2025 11:14, PREMATURE ATRIAL COMPLEXES ARE NO LONGER PRESENT Confirmed by MD HOPPER VINAY ([id number]) on 03/02/2025 6:13:12 PM Test Reason : Location : 200 : [place] [address] Overread By : MD HOPPER VINAY Edited By : MD HOPPER VINAY Referred By : SHAWN CHAU Acquired by : ROBERTO TRUJILLO [facility] HIGH SENSITIVITY TROPONIN To n 03-01-2025 Troponin T.cardiac High sensitivity method [Mass/Vol] 462 ng/L High <12 [facility] Comment on above: Order Comment: Speci men Type: BLOOD SPECIMEN Ordering Facility: [facility] Address: [address] [place] [address] Performed By: #### 3 016-3, 75161-6, HSTNT, 61789-3, 93539-1, 54643-2 #### [facility] CLIA [id number] [address] [place] Magnesium SerPl-mCncon 03-01 Magnesium [Mass/Vol] 1.8 mg/dL Normal 1.7-2.3 [facility] Comment on above: Order Comment: Speci men Type: BLOOD SPECIMEN Ordering Facility: [facility] Address: [address] [place] [address] Performed By: #### 1 9123-9, 26766-3 #### [facility] CLIA [id number] [address] [facility] NURSING PROGon 03-01-2025 NURSING PROG HNO ID: [id number] Author: DALILA BILLY, ANIRUDH Service: Nursing Author Type: Registered Nurse Type: Nursing Progress Note Filed: 03/01/2025 15:00 Note Text: Patient complaining of 2/10 sharp chest pain. Blood pressure is 155/78, heart rate is 57. Omari Heaton MD made aware of situation. 12 lead EKG obtained, nitro x1 dose given, and troponin drawn. Chest pain relieved after 1 dose of nitro. Normal [facility] TYPE + SCREENon 03-01-2025 ABO B Normal [facility] Comment on above: Order Comment: Speci men Type: BLOOD SPECIMEN Ordering Facility: [facility] Address: [address] [place] [address] Performed By: #### 3 016-3, 97983-6, HSTNT, 08102-4, 97117-1, 49339-6 #### [facility] CLIA [id number] [address] [place] Rh Nom (Bld) Positive Normal [facility] Comment on above: Order Comment: Speci men Type: BLOOD SPECIMEN Ordering Facility: [facility] Address: [address] [place] [address] Performed By: #### 3 016-3, 99674-5, HSTNT, 79161-6, 03089-6, 38997-6 #### [facility] CLIA [id number] [address] [place] TYPE AND SCREEN EXPIRATION 03/04/2025 23:59 Normal [facility] Comment on above: Order Comment: Speci men Type: BLOOD SPECIMEN Ordering Facility: [facility] Address: [address] [place], [place] [address] Performed By: #### 3 016-3, 00816-5, HSTNT, 18500-8, 28629-9, 06593-2 #### [facility] CLIA [id number] 1 [place] [address] [place] XR CHEST 1V [...] Comparison: 08/06/2011 RESULT: Lines, tubes, and devices: gambling monitor leads. Lungs and pleura: No consolidation. No lung mass. No pleural effusion. Cardiomediastinal silhouette: Widening of the superior mediastinum most likely due to tortuous brachiocephalic vessels. Stable. Other: None. IMPRESSION: No acute radiographic abnormality. [employer]: [employer] Transcribe Date/Time: Mar 01 2025 6:53A Dictated by : NEIL CARTER MD This examination was interpreted and the report reviewed and electronically signed by: NEIL CARTER MD on Mar 01 2025 6:55AM EST [id number] Normal [facility] aPTT PPPon 03-01-2025 aPTT Coag (PPP) [Time] 61.7 s High 23.0-32.4 [facility] Comment on above: Order Comment: Sharon shaw Type: BLOOD SPECIMEN Ordering Facility: [facility] Address: [address] [place], [place] [address] Performed By: #### 3 016-3, 10046-4, HSTNT, 68432-2, 21514-0, 60483-3 #### [facility] CLIA [id number] [address] [place] [address] [place] Basic metabolic 2000 panelon 02-28-2025 Anion gap [Moles/Vol] 11 mmol/L Normal 8-15 [facility] Comment on above: Order Comment: Speci men Type: BLOOD SPECIMEN Ordering Facility: [facility] Address: [address] [place] [address] Performed By: #### 3 016-3, 61949-2, HSTNT, 67809-7, 69770-3, 17025-0 #### [facility] CLIA [id number] [address] [place] [address] [place] Calcium [Mass/Vol] 9.0 mg/dL Normal 8.5-10.2 [facility] Comment on above: Order Comment: Speci men Type: BLOOD SPECIMEN Ordering Facility: [facility] Address: [address] [place] [address] Performed By: #### 3 016-3, 39275-6, HSTNT, 33029-8, 46604-2, 17561-5 #### [facility] CLIA [id number] [address] [place] [address] [place] Chloride [Moles/Vol] 101 mmol/L Normal 98-107 [facility] Comment on above: Order Comment: Speci men Type: BLOOD SPECIMEN Ordering Facility: [facility] Address: [address] [place] [address] Performed By: #### 3 016-3, 12363-8, HSTNT, 91964-3, 22581-9, 74029-1 #### [facility] CLIA [id number] [address] [place] [address] [place] CO2 [Moles/Vol] 22 mmol/L Normal 22-30 [facility] Comment on above: Order Comment: Speci men Type: BLOOD SPECIMEN Ordering Facility: [facility] Address: [address] [place] [address] Performed By: #### 3 016-3, 73119-0, HSTNT, 42832-0, 87066-0, 94606-5 #### [facility] CLIA [id number] [address] [place] [address] [place] Creatinine [Mass/Vol] 1.05 mg/dL Normal 0.73-1.22 [facility] Comment on above: Order Comment: Sharon shaw Type: BLOOD SPECIMEN Ordering Facility: [facility] Address: [address] [place] [address] Performed By: #### 3 016-3, 13963-4, HSTNT, 77106-1, 40697-1, 34277-7 #### [facility] CLIA [id number] [address] [place] eGFRcr SerPlBld CKD-EPI 2020 70 mL/min/1.73m??? Normal >=60 [facility] Comment on above: Order Comment: [facility] Type: BLOOD SPECIMEN Ordering Facility: [facility] Address: [address] [place] [address] Result Comment: Monie mated Glomerular Filtration Rate [...] actual GFR. Performed By: #### 3 016-3, 35022-9, HSTNT, 83692-1, 34950-0, 58083-4 #### [facility] CLIA [id number] [address] [place] [address] [place] Glucose [Mass/Vol] 110 mg/dL High 74-99 [facility] Comment on above: Order Comment: Sharon shaw Type: BLOOD SPECIMEN Ordering Facility: [facility] Address: [address] [place] [address] Result Comment: The [place] [employer] (ADA) provides guidance for cutoff [...] Standards of Medical Care in Diabetes 2016, [place] [employer]. Diabetes Care. 2016.39(Suppl 1). Performed By: #### 3 016-3, 01943-7, HSTNT, 79334-3, 61374-8, 31642-1 #### [facility] CLIA [id number] [address] [place] Potassium [Moles/Vol] 4.2 mmol/L Normal 3.7-5.1 [facility] Comment on above: Order Comment: Speci men Type: BLOOD SPECIMEN Ordering Facility: [facility] Address: [address] [place] [address] Performed By: #### 3 016-3, 73822-1, HSTNT, 21782-3, 06127-0, 34556-7 #### [facility] CLIA [id number] [address] [facility] Sodium [Moles/Vol] 134 mmol/L Low 136-144 [facility] Comment on above: Order Comment: Speci men Type: BLOOD SPECIMEN Ordering Facility: [facility] Address: [address] [place] [address] Performed By: #### 3 016-3, 93745-1, HSTNT, 08317-5, 65886-9, 69870-4 #### [facility] CLIA [id number] [address] [place] Urea nitrogen [Mass/Vol] 21 mg/dL Normal 9-24 [facility] Comment on above: Order Comment: Speci men Type: BLOOD SPECIMEN Ordering Facility: [facility] Address: [address] [place] [address] Performed By: #### 3 016-3, 91392-6, HSTNT, 84063-9, 33298-3, 52411-7 #### [facility] CLIA [id number] [address] [place] CBC panel Auto (Bld)on 02-28 Erythrocyte distribution width (RBC) [Ratio] 12.2 % Normal 11.5-15.0 [facility] Comment on above: Order Comment: Speci men Type: BLOOD SPECIMEN Ordering Facility: [facility] Address: [address] [place] [address] Performed By: #### 3 016-3, 17136-5, HSTNT, 44606-2, 41169-5, 96644-7 #### [facility] CLIA [id number] [address] [facility] Hematocrit (Bld) [Volume fraction] 41.4 % Normal 39.0-51.0 [facility] Comment on above: Order Comment: Speci men Type: BLOOD SPECIMEN Ordering Facility: [facility] Address: [address] [place] [address] Performed By: #### 3 016-3, 40449-5, HSTNT, 09658-8, 47019-0, 90631-5 #### [facility] CLIA [id number] [address] [facility] Hemoglobin (Bld) [Mass/Vol] 14.2 g/dL Normal 13.0-17.0 [facility] Comment on above: Order Comment: Speci men Type: BLOOD SPECIMEN Ordering Facility: [facility] Address: [address] [place] [address] Performed By: #### 3 016-3, 43403-1, HSTNT, 50299-8, 23694-9, 13719-9 #### [facility] CLIA [id number] [address] [place] [address] [facility] MCH (RBC) [Entitic mass] 31.1 pg Normal 26.0-34.0 [facility] Comment on above: Order Comment: Speci men Type: BLOOD SPECIMEN Ordering Facility: [facility] Address: [address] [place] [address] Performed By: #### 3 016-3, 31658-7, HSTNT, 74422-2, 80287-4, 16690-4 #### [facility] CLIA [id number] [address] MCHC (RBC) [Mass/Vol] 34.3 g/dL Normal 30.5-36.0 [facility] Comment on above: Order Comment: Speci men Type: BLOOD SPECIMEN Ordering Facility: [facility] Address: [address] [place] [address] Performed By: #### 3 016-3, 89202-5, HSTNT, 73258-7, 33290-1, 61014-4 #### [facility] CLIA [id number] [address] MCV (RBC) [Entitic vol] 90.6 fL Normal 80.0-100.0 [facility] Comment on above: Order Comment: Speci men Type: BLOOD SPECIMEN Ordering Facility: [facility] Address: [address] [place] [address] Performed By: #### 3 016-3, 34519-5, HSTNT, 90708-9, 73665-1, 38070-6 #### [facility] CLIA [id number] [address] Nucleated RBC (Bld) [#/Vol] 10*3/uL Normal <0.01 [facility] Comment on above: Order Comment: Speci men Type: BLOOD SPECIMEN Ordering Facility: [facility] Address: [address] [place] [address] Performed By: #### 3 016-3, 10388-3, HSTNT, 35837-9, 12922-9, 94970-6 #### [facility] CLIA [id number] [address] [place] Platelet mean volume (Bld) [Entitic vol] 10.2 fL Normal 9.0-12.7 [facility] Comment on above: Order Comment: Speci men Type: BLOOD SPECIMEN Ordering Facility: [facility] Address: [address] [place] [address] Performed By: #### 3 016-3, 59631-7, HSTNT, 43665-5, 46847-4, 68159-2 #### [facility] CLIA [id number] [address] [place] Platelets (Bld) [#/Vol] 197 10*3/uL Normal 150-400 [facility] Comment on above: Order Comment: Speci men Type: BLOOD SPECIMEN Ordering Facility: [facility] Address: [address] [place] [address] Performed By: #### 3 016-3, 81474-9, HSTNT, 73122-1, 88407-7, 28248-9 #### [facility] CLIA [id number] [address] [place] RBC (Bld) [#/Vol] 4.57 10*6/uL Normal 4.20-6.00 [facility] Comment on above: Order Comment: Speci men Type: BLOOD SPECIMEN Ordering Facility: [facility] Address: [address] [place] [address] Performed By: #### 3 016-3, 79191-3, HSTNT, 23986-0, 53706-5, 35502-6 #### [facility] CLIA [id number] [address] [place] WBC (Bld) [#/Vol] 8.49 10*3/uL Normal 3.70-11.00 [facility] Comment on above: Order Comment: Speci men Type: BLOOD SPECIMEN Ordering Facility: [facility] Address: [address] [place] [address] Performed By: #### 3 016-3, 81567-0, HSTNT, 95078-8, 68478-0, 78775-7 #### [facility] CLIA [id number] [address] CONSULTon 02-28-2025 CONSULT HNO ID: [id number] Author: HARRISON ARTIS MD Service: Electrophysiology Author Type: Physician Type: Consults Filed: 02/28/2025 12:18 Note Text: CONSULT: CARDIOLOGY SERVICE [facility] Electrophysiology (EP) SERVICE DATE: 02/28/2025 SERVICE TIME: 12:18 PM CONSULTING PHYSICIAN: Harrison Artis PCP: Екатерина Taveras MD ATTENDING: Omari Heaton MD REASON FOR CONSULT: Arrhythmias Subjective CHIEF COMPLAINT: CABG (coronary artery bypass graft) planned [Z78.9] HISTORY OF PRESENT ILLNESS: Mr. Palacio is a 85 year old male who presents as transfer from [facility] for consideration of CABG, evidently scheduled for tomorrow Saturday03/01/2025. No heart history, he was mowing the grass last week and was experiencing exertional shortness of breath, perhaps some right sided chest discomfort. He was admitted to [facility] and diagnosed with NSTEMI. Cardiac catheterization revealed severe 3-vessel CAD. Transferred to [facility] for consideration of CABG. He was noted [...] RAE, Dr Pierce PAF (paroxysmal atrial fibrillation) ([facility]) 02/25/2025 Primary hypertension 10/13/2024 PAST SURGICAL HISTORY [...] LEFT HEART CATH,PERCUTANEOUS 02/24/2025 severe 3-vessel CAD; [facility] RAD RESECT TUMOR SOFT TISS NECK/ANT THORAX [...] (more content not included)... Normal [facility] ECG COMPLETEon 02-28-2025 ECG COMPLETE Ventricular Rate : 7 6 BPM Atrial Rate : 102 BPM QRS Duration : 92 ms Q-T Interval : 420 ms QTC Calculation(Bazett) : 472 ms Calculated P Almond : 26 degrees Calculated R Almond : 1 degrees Calculated T Almond : 62 degrees SINUS TACHYCARDIA WITH BLOCKED PREMATURE ATRIAL COMPLEXES OTHERWISE NORMAL ECG WHEN COMPARED WITH ECG OF 25-Feb-2025 14:55, SINUS RHYTHM HAS REPLACED ATRIAL FIBRILLATION QUESTIONABLE CHANGE IN QRS AXIS T WAVE INVERSION NO LONGER EVIDENT IN INFERIOR LEADS Confirmed by MD HOPPER VINAY ([id number]) on 03/01/2025 2:33:43 PM NAME : ELSA PALACIO PID : [id number] : 1940 Gender : Male Race : ORD : [id number] Procedure Date : Feb 28 2025 11:14:35 Edit Date : Mar 01 2025 14:33:46 Diagnosis: SINUS TACHYCARDIA WITH BLOCKED PREMATURE ATRIAL COMPLEXES OTHERWISE NORMAL ECG WHEN COMPARED WITH ECG OF 25-Feb-2025 14:55, SINUS RHYTHM HAS REPLACED ATRIAL FIBRILLATION QUESTIONABLE CHANGE IN QRS AXIS T WAVE INVERSION NO LONGER EVIDENT IN INFERIOR LEADS Confirmed by MD HOPPER VINAY ([id number]) on 03/01/2025 2:33:43 PM Test Reason : Arrhythmia Location : 200 : [facility] Overread By : MD HOPPER VINAY Edited By : MD HOPPER VINAY Referred By : SHAWN CHAU Acquired by : ADIN ISBELL Normal [facility] Magnesium SerPl-mCncon 11-09 -2025 Magnesium [Mass/Vol] 1.8 mg/dL Normal 1.7-2.3 [facility] Comment on above: Order Comment: Speci men Type: BLOOD SPECIMEN Order[facility] Address: [address] [place] [address] Performed By: #### 3 016-3, 00685-8, HSTNT, 95147-8, 47231-0, 65900-1 #### [facility] CLIA [id number] [address] [place] aPTT PPPon 02-28-2025 aPTT Coag (PPP) [Time] 63.2 s High 23.0-32.4 [facility] Comment on above: Order Comment: Speci men Type: BLOOD SPECIMEN Order[facility] Address: [address] [place] [address] Performed By: #### 3 016-3, 29004-4, HSTNT, 85852-8, 33535-6, 14423-1 #### [facility] CLIA [id number] [address] [place] aPTT PPPon 02-27-2025 aPTT Coag (PPP) [Time] 60.9 s High 23.0-32.4 [facility] Comment on above: Order Comment: Speci men Type: BLOOD SPECIMEN Order[facility] Address: [address] [place] [address] Performed By: #### 1 4979-9 #### [facility] CLIA [id number] [address] [place] [address] [place] Basic metabolic 2000 panelon 02-26-2025 Anion gap [Moles/Vol] 10 mmol/L Normal 8-15 [facility] Comment on above: Order Comment: Speci men Type: BLOOD SPECIMEN Ordering Facility: [facility] Address: [address] [place] [address] Performed By: #### 3 016-3, 53738-0, HSTNT, 37706-6, 27038-9, 82749-6 #### [facility] CLIA [id number] [address] [place] [address] [place] Calcium [Mass/Vol] 8.9 mg/dL Normal 8.5-10.2 [facility] Comment on above: Order Comment: Speci men Type: BLOOD SPECIMEN Ordering Facility[facility] Address: [address] [place] [address] Performed By: #### 3 016-3, 96997-5, HSTNT, 46941-9, 89330-5, 77882-6 #### [facility] CLIA [id number] [address] [place] [address] [place] Chloride [Moles/Vol] 103 mmol/L Normal 98-107 [facility] Comment on above: Order Comment: Speci men Type: BLOOD SPECIMEN Ordering Facility: [facility] Address: [address] [place] [address] Performed By: #### 3 016-3, 72235-5, HSTNT, 98339-4, 29234-2, 08710-7 #### [facility] CLIA [id number] [address] [place] [address] [place] CO2 [Moles/Vol] 21 mmol/L Low 22-30 [facility] Comment on above: Order Comment: Speci men Type: BLOOD SPECIMEN Ordering Facility: [facility] Address: [address] [place] [address] Performed By: #### 3 016-3, 85127-2, HSTNT, 73502-7, 55846-1, 55444-2 #### [facility] CLIA [id number] [address] [place] [address] [place] Creatinine [Mass/Vol] 1.13 mg/dL Normal 0.73-1.22 [facility] Comment on above: Order Comment: Speci men Type: BLOOD SPECIMEN Ordering Facility: [facility] Address: [address] [place] [address] Performed By: #### 3 016-3, 14090-2, HSTNT, 76210-9, 42728-0, 22494-7 #### [facility] CLIA [id number] [address] [place] eGFRcr SerPlBld CKD-EPI 2020 64 mL/min/1.73m??? Normal >=60 [facility] Comment on above: Order Comment: Sharon colin Type: BLOOD SPECIMEN Ordering Facility[facility] Address: [address] [place] [address] Result Comment: Monie mated Glomerular Filtration Rate [...] actual GFR. Performed By: #### 3 016-3, 04833-1, HSTNT, 00955-0, 48242-3, 51462-9 #### [facility] CLIA [id number] [address] [place] Glucose [Mass/Vol] 118 mg/dL High 74-99 [facility] Comment on above: Order Comment: Sharon shaw Type: BLOOD SPECIMEN Ordering Facility: [facility] Address: [address] [place] [address] Result Comment: The [place] [employer] (ADA) provides guidance for cutoff [...] Standards of Medical Care in Diabetes 2016, [place] [employer]. Diabetes Care. 2016.39(Suppl 1). Performed By: #### 3 016-3, 22550-4, HSTNT, 83834-8, 84766-5, 31348-7 #### [facility] CLIA [id number] [address] [place] [address] [place] Potassium [Moles/Vol] 4.1 mmol/L Normal 3.7-5.1 [facility] Comment on above: Order Comment: Speci men Type: BLOOD SPECIMEN [facility] [facility] Address: [address] [place] [address] Performed By: #### 3 016-3, 50385-1, HSTNT, 55113-3, 71215-6, 48556-3 #### [facility] CLIA [id number] [address] [place] [address] [place] Sodium [Moles/Vol] 134 mmol/L Low 136-144 [facility] Comment on above: Order Comment: Speci men Type: BLOOD SPECIMEN Ordering Facility: [facility] Address: [address] [place] [address] Performed By: #### 3 016-3, 75411-1, HSTNT, 43353-1, 43974-2, 43174-6 #### [facility] CLIA [id number] [address] [place] [address] [place] Urea nitrogen [Mass/Vol] 19 mg/dL Normal 9-24 [facility] Comment on above: Order Comment: Speci men Type: BLOOD SPECIMEN Ordering Facility: [facility] Address: [address] [place] [address] Performed By: #### 3 016-3, 94670-2, HSTNT, 69057-2, 14748-9, 86185-5 #### [facility] CLIA [id number] [address] [place] [address] [place] CBC panel Auto (Bld)on 02-26 Erythrocyte distribution width (RBC) [Ratio] 12.3 % Normal 11.5-15.0 [facility] Comment on above: Order Comment: Speci men Type: BLOOD SPECIMEN Ordering Facility: [facility] Address: [address] [place] [address] Performed By: #### 3 016-3, 68320-5, HSTNT, 67879-6, 56844-5, 52346-7 #### [facility] CLIA [id number] [address] [place] Hematocrit (Bld) [Volume fraction] 39.7 % Normal 39.0-51.0 [facility] Comment on above: Order Comment: Speci men Type: BLOOD SPECIMEN Ordering Facility: [facility] Address: [address] [place] [address] Performed By: #### 3 016-3, 86063-5, HSTNT, 71129-8, 58651-7, 07706-7 #### [facility] CLIA [id number] [address] [place] Hemoglobin (Bld) [Mass/Vol] 13.3 g/dL Normal 13.0-17.0 [facility] Comment on above: Order Comment: Speci men Type: BLOOD SPECIMEN Ordering Facility: [facility] Address: [address] [place] [address] Performed By: #### 3 016-3, 62198-1, HSTNT, 50036-6, 64513-9, 80613-4 #### [facility] CLIA [id number] [address] [place] [facility] MCH (RBC) [Entitic mass] 30.5 pg Normal 26.0-34.0 [facility] Comment on above: Order Comment: Speci men Type: BLOOD SPECIMEN Ordering Facility: [facility] Address: [address] [place] [address] Performed By: #### 3 016-3, 68918-5, HSTNT, 27510-4, 91448-0, 21926-0 #### [facility] CLIA [id number] [address] [place] MCHC (RBC) [Mass/Vol] 33.5 g/dL Normal 30.5-36.0 [facility] Comment on above: Order Comment: Speci men Type: BLOOD SPECIMEN Ordering Facility: [facility] Address: [address] [place] [address] Performed By: #### 3 016-3, 58884-0, HSTNT, 03552-8, 15235-0, 27524-7 #### [facility] CLIA [id number] [address] MCV (RBC) [Entitic vol] 91.1 fL Normal 80.0-100.0 [facility] Comment on above: Order Comment: Speci men Type: BLOOD SPECIMEN Ordering Facility: [facility] Address: [address] [place] [address] Performed By: #### 3 016-3, 49027-8, HSTNT, 46630-9, 39412-7, 61572-2 #### [facility] CLIA [id number] [address] Nucleated RBC (Bld) [#/Vol] 10*3/uL Normal <0.01 [facility] Comment on above: Order Comment: Speci men Type: BLOOD SPECIMEN Ordering Facility: [facility] Address: [address] [place] [address] Performed By: #### 3 016-3, 16157-2, HSTNT, 30997-6, 14222-9, 61256-5 #### [facility] CLIA [id number] [address] [place] Platelet mean volume (Bld) [Entitic vol] 10.0 fL Normal 9.0-12.7 [facility] Comment on above: Order Comment: Speci men Type: BLOOD SPECIMEN Ordering Facility: [facility] Address: [address] [place] [address] Performed By: #### 3 016-3, 67117-1, HSTNT, 16378-6, 65551-9, 97899-5 #### [facility] CLIA [id number] [address] [place] Platelets (Bld) [#/Vol] 196 10*3/uL Normal 150-400 [facility] Comment on above: Order Comment: Speci men Type: BLOOD SPECIMEN Ordering Facility: [facility] Address: [address] [place] [address] Performed By: #### 3 016-3, 56926-1, HSTNT, 56550-7, 62363-8, 54463-5 #### [facility] CLIA [id number] [address] [facility] RBC (Bld) [#/Vol] 4.36 10*6/uL Normal 4.20-6.00 [facility] Comment on above: Order Comment: Speci men Type: BLOOD SPECIMEN Ordering Facility: [facility] Address: [address] [place] [address] Performed By: #### 3 016-3, 84160-0, HSTNT, 58635-1, 85848-5, 17940-8 #### [facility] CLIA [id number] [address] WBC (Bld) [#/Vol] 8.96 10*3/uL Normal 3.70-11.00 [facility] Comment on above: Order Comment: Speci men Type: BLOOD SPECIMEN Ordering Facility: [facility] Address: [address] [place] [address] Performed By: #### 3 016-3, 97681-6, HSTNT, 03846-7, 00156-7, 89182-2 #### [facility] CLIA [id number] [address] ECHOon 02-26-2025 Echocardiography Echocardiography Report: Transthoracic Echo [facility] Date of service: 02/26/2025 7:28:40 [facility] Ordering physician: RITA HENLEY Exam indication: [...] - Exam was compared with the prior [facility] echocardiographic exam performed on 03/14/2020. No significant change noted when compared to report of prior study. * * * Final * * * [facility] [employer] [facility] : [id number] amicsSISUID Normal [facility] aPTT PPPon 02-26-2025 aPTT Coag (PPP) [Time] 61.6 s High 23.0-32.4 [facility] Comment on above: Order Comment: Speci men Type: BLOOD SPECIMEN Ordering Facility: [facility] Address: [address] [place] [address] [place] [address] Performed By: #### 3 016-3, 08058-5, HSTNT, 43691-3, 10858-2, 53733-1 #### [facility] CLIA [id number] [address] [place] ALLIED HEALTHon 02-25-2025 ALLIED HEALTH HNO ID: [id number] Author: EMMY ZUNIGA RN Service: Cardiac Rehab Author Type: Registered Nurse Type: [facility] Filed: 02/25/2025 15:24 Note [...] 25, 2025 TIME: 3:24 PM PAGER/CONTACT #: [phone] [facility] HNO ID: [id number] Author: ARAMIS WISEMAN RT(R) Service: Radiology Author Type: Marine Diver Type: [facility] Filed: 02/25/2025 13:30 Note Text: Radiology Service [...] PATIENT PRESENTS WITH AN IMPLANTABLE OR ATTACHED MEDICAL PHOTOGRAPHER: No RADIOLOGY DEPARTMENT: CT; Exam(s) Completed: Chest. Anesthesia: No PERIPHERAL IV DATA: Not applicable SIGNED BY: RT Jacqueline(R) February 25, 2025 1:30 PM [facility] Basic metabolic 2000 panelon 02-25-2025 Anion gap [Moles/Vol] 10 mmol/L Normal 8-15 [facility] Comment on above: Order Comment: Speci men Type: BLOOD SPECIMEN Ordering Facility: [facility] Address: [address] [place] [address] Performed By: #### 3 016-3, 73610-2, HSTNT, 94625-1, 40998-7, 26951-4 #### [facility] CLIA [id number] [address] [place] [address] [place] Calcium [Mass/Vol] 8.9 mg/dL Normal 8.5-10.2 [facility] Comment on above: Order Comment: Speci men Type: BLOOD SPECIMEN Ordering Facility[facility] Address: [address] [place] [address] Performed By: #### 3 016-3, 49015-9, HSTNT, 91656-3, 65033-1, 15198-7 #### [facility] CLIA [id number] [address] [place] [address] [place] Chloride [Moles/Vol] 103 mmol/L Normal 98-107 [facility] Comment on above: Order Comment: Speci men Type: BLOOD SPECIMEN Ordering Facility: [facility] Address: [address] [place] [address] Performed By: #### 3 016-3, 27521-0, HSTNT, 47632-1, 66079-6, 03865-1 #### [facility] CLIA [id number] [address] [place] [address] [place] CO2 [Moles/Vol] 22 mmol/L Normal 22-30 [facility] Comment on above: Order Comment: Speci men Type: BLOOD SPECIMEN Ordering Facility: [facility] Address: [address] [place] [address] Performed By: #### 3 016-3, 24510-2, HSTNT, 18752-8, 62273-1, 33146-0 #### [facility] CLIA [id number] [address] [place] [address] [place] Creatinine [Mass/Vol] 0.96 mg/dL Normal 0.73-1.22 [facility] Comment on above: Order Comment: Speci men Type: BLOOD SPECIMEN Ordering Facility: [facility] Address: [address] [place] [address] Performed By: #### 3 016-3, 32356-6, HSTNT, 32157-7, 70797-3, 93287-4 #### [facility] CLIA [id number] [address] [place] eGFRcr SerPlBld CKD-EPI 2020 77 mL/min/1.73m??? Normal >=60 [facility] Comment on above: Order Comment: Sharon shaw Type: BLOOD SPECIMEN Ordering Facility: [facility] Address: [address] [place] [address] Result Comment: Monie mated Glomerular Filtration Rate [...] actual GFR. Performed By: #### 3 016-3, 41969-1, HSTNT, 55177-9, 53704-4, 00689-2 #### [facility] CLIA [id number] [address] [place] [address] [place] Glucose [Mass/Vol] 124 mg/dL High 74-99 [facility] Comment on above: Order Comment: Sharon shaw Type: BLOOD SPECIMEN Ordering Facility: [facility] Address: [address] [place] [address] Result Comment: The [place] Diabetes Association (ADA) provides guidance for cutoff [...] Standards of Medical Care in Diabetes 2016, [place] [employer]. Diabetes Care. 2016.39(Suppl 1). Performed By: #### 3 016-3, 26630-3, HSTNT, 30308-0, 95930-2, 26002-1 #### [facility] CLIA [id number] [address] [place] Potassium [Moles/Vol] 4.0 mmol/L Normal 3.7-5.1 [facility] Comment on above: Order Comment: Speci men Type: BLOOD SPECIMEN Ordering Facility: [facility] Address: [address] [place] [address] Performed By: #### 3 016-3, 57268-9, HSTNT, 13894-0, 29853-8, 83939-3 #### [facility] CLIA [id number] [address] STATES OF [facility] Sodium [Moles/Vol] 135 mmol/L Low 136-144 [facility] Comment on above: Order Comment: Speci men Type: BLOOD SPECIMEN Ordering Facility: [facility] Address: [address] [place] [address] Performed By: #### 3 016-3, 95466-3, HSTNT, 83062-5, 29797-8, 89220-1 #### [facility] CLIA [id number] [address] STATES [place] [facility] Urea nitrogen [Mass/Vol] 16 mg/dL Normal 9-24 [facility] Comment on above: Order Comment: Speci men Type: BLOOD SPECIMEN Ordering Facility: [facility] Address: [address] [place] [address] Performed By: #### 3 016-3, 86983-7, HSTNT, 24047-1, 34581-6, 13944-2 #### [facility] CLIA [id number] [address] [place] [address] [place] CBC W/Diff, Automatedon 11-0 Absolute Neut Normal 2.0-7.7 [facility] Comment on above: Result Comment: DUPL ICATE ORDER, CBCD DONE IN LAST 24HORS, SPOKE WITH KRISTA RN TO VERIFY. Performed By: #### L 100.0100 #### [facility] [address] [place], [address] Result Comment: Canc elled via OM: Order cancelled - Patient discharged HCT Normal 40-54 [facility] Comment on above: Result Comment: DUPL ICATE ORDER, CBCD DONE IN LAST 24HORS, SPOKE WITH LBENNET RN TO VERIFY. Performed By: #### L 100.0100 #### [facility] [address] [place], [address] Result Comment: Canc elled via OM: Order cancelled - Patient discharged HGB Normal 13.0-16.5 [facility] Comment on above: Result Comment: DUPL ICATE ORDER, CBCD DONE IN LAST 24HORS, SPOKE WITH LBENNET RN TO VERIFY. Performed By: #### L 100.0100 #### [facility] [address] [place], [address] Result Comment: Canc elled via OM: Order cancelled - Patient discharged MCH Normal 27.0-32.0 [facility] Comment on above: Result Comment: DUPL ICATE ORDER, CBCD DONE IN LAST 24HORS, SPOKE WITH LBENNET RN TO VERIFY. Performed By: #### L 100.0100 #### [facility] [address] [place], [address] Result Comment: Canc elled via OM: Order cancelled - Patient discharged MCHC Normal 32-36 [facility] Comment on above: Result Comment: DUPL ICATE ORDER, CBCD DONE IN LAST 24HORS, SPOKE WITH LBENNET RN TO VERIFY. Performed By: #### L 100.0100 #### [facility] [address] [place], [address] Result Comment: Canc elled via OM: Order cancelled - Patient discharged MCV Normal 80-94 [facility] Comment on above: Result Comment: DUPL ICATE ORDER, CBCD DONE IN LAST 24HORS, SPOKE WITH LBENNET RN TO VERIFY. Performed By: #### L 100.0100 #### [facility] [address] [place], [address] Result Comment: Canc elled via OM: Order cancelled - Patient discharged NEUT% Normal 47-70 [facility] Comment on above: Result Comment: DUPL ICATE ORDER, CBCD DONE IN LAST 24HORS, SPOKE WITH LBENNET RN TO VERIFY. Performed By: #### L 100.0100 #### [facility] [address] [place], [address] Result Comment: Canc elled via OM: Order cancelled - Patient discharged PLT Normal 150-450 [facility] Comment on above: Result Comment: DUPL ICATE ORDER, CBCD DONE IN LAST 24HORS, SPOKE WITH LBENNET RN TO VERIFY. Performed By: #### L 100.0100 #### [facility] [address] [place], [address] Result Comment: Canc elled via OM: Order cancelled - Patient discharged RBC Normal 4.6-6.2 [facility] Comment on above: Result Comment: DUPL ICATE ORDER, CBCD DONE IN LAST 24HORS, SPOKE WITH LBENNET RN TO VERIFY. Performed By: #### L 100.0100 #### [facility] [address] [place], [address] Result Comment: Canc elled via OM: Order cancelled - Patient discharged RDW CV Normal 11.6-14.6 [facility] Comment on above: Result Comment: DUPL ICATE ORDER, CBCD DONE IN LAST 24HORS, SPOKE WITH LBENNET RN TO VERIFY. Performed By: #### L 100.0100 #### [facility] [address] [place], [address] Result Comment: Canc elled via OM: Order cancelled - Patient discharged RDW SD Normal 35.1-43.9 [facility] Comment on above: Result Comment: DUPL ICATE ORDER, CBCD DONE IN LAST 24HORS, SPOKE WITH LBENNET RN TO VERIFY. Performed By: #### L 100.0100 #### [facility] [address] [place], [place], [address] Result Comment: Canc elled via OM: Order cancelled - Patient discharged WBC Normal 4.4-11.0 [facility] Comment on above: Result Comment: DUPL ICATE ORDER, CBCD DONE IN LAST 24HORS, SPOKE WITH KRISTA RN TO VERIFY. Performed By: #### L 100.0100 #### [facility] [address] [place], [address] Result Comment: Canc elled via OM: Order cancelled - Patient discharged CBC panel Auto (Bld)on 02-25 Erythrocyte distribution width (RBC) [Ratio] 12.4 % Normal 11.5-15.0 [facility] Comment on above: Order Comment: Speci men Type: BLOOD SPECIMEN Ordering Facility[facility] Address: [address] [place] [address] Performed By: #### 3 016-3, 49659-9, HSTNT, 08804-6, 62073-9, 87530-9 #### [facility] CLIA [id number] [address] [place] [address] [place] Hematocrit (Bld) [Volume fraction] 41.3 % Normal 39.0-51.0 [facility] Comment on above: Order Comment: Speci men Type: BLOOD SPECIMEN Ordering Facility: [facility] Address: [address] [place] [address] Performed By: #### 3 016-3, 07343-2, HSTNT, 27305-5, 60925-6, 90684-6 #### [facility] CLIA [id number] [address] [place] [address] [place] Hemoglobin (Bld) [Mass/Vol] 14.2 g/dL Normal 13.0-17.0 [facility] Comment on above: Order Comment: Speci men Type: BLOOD SPECIMEN Ordering Facility[facility] Address: [address] [place] [address] Performed By: #### 3 016-3, 58007-5, HSTNT, 18845-0, 01734-0, 69798-2 #### [facility] CLIA [id number] [address] MCH (RBC) [Entitic mass] 31.2 pg Normal 26.0-34.0 [facility] Comment on above: Order Comment: Speci men Type: BLOOD SPECIMEN Ordering Facility[facility] Address: [address] [place] [address] Performed By: #### 3 016-3, 32661-0, HSTNT, 85610-5, 64669-5, 30214-1 #### [facility] CLIA [id number] [address] MCHC (RBC) [Mass/Vol] 34.4 g/dL Normal 30.5-36.0 [facility] Comment on above: Order Comment: Speci men Type: BLOOD SPECIMEN Ordering Facility[facility] Address: [address] [place] [address] Performed By: #### 3 016-3, 06479-6, HSTNT, 09822-0, 48919-8, 07883-7 #### [facility] CLIA [id number] [address] MCV (RBC) [Entitic vol] 90.8 fL Normal 80.0-100.0 [facility] Comment on above: Order Comment: Speci men Type: BLOOD SPECIMEN Ordering Facility[facility] Address: [address] [place] [address] Performed By: #### 3 016-3, 21560-0, HSTNT, 44141-6, 96830-5, 42767-3 #### [facility] CLIA [id number] [address] Nucleated RBC (Bld) [#/Vol] 10*3/uL Normal <0.01 [facility] Comment on above: Order Comment: Speci men Type: BLOOD SPECIMEN Ordering Facility[facility] Address: [address] [place] [address] Performed By: #### 3 016-3, 50155-8, HSTNT, 78322-4, 21138-1, 74359-2 #### [facility] CLIA [id number] [address] [place] [address] Platelet mean volume (Bld) [Entitic vol] 10.3 fL Normal 9.0-12.7 [facility] Comment on above: Order Comment: Speci men Type: BLOOD SPECIMEN Ordering Facility: [facility] Address: [address] [place] [address] Performed By: #### 3 016-3, 56218-6, HSTNT, 83365-2, 73896-0, 95053-1 #### [facility] CLIA [id number] [address] [place] [address] [place] Platelets (Bld) [#/Vol] 222 10*3/uL Normal 150-400 [facility] Comment on above: Order Comment: Speci men Type: BLOOD SPECIMEN Ordering Facility[facility] Address: [address] [place] [address] Performed By: #### 3 016-3, 36770-2, HSTNT, 78920-2, 15185-7, 19850-5 #### [facility] CLIA [id number] [address] [place] [address] [place] RBC (Bld) [#/Vol] 4.55 10*6/uL Normal 4.20-6.00 [facility] Comment on above: Order Comment: Speci men Type: BLOOD SPECIMEN Ordering Facility: [facility] Address: [address] [place] [address] Performed By: #### 3 016-3, 43080-1, HSTNT, 65566-2, 75199-3, 14336-2 #### [facility] CLIA [id number] [address] [place] [address] [place] WBC (Bld) [#/Vol] 10.33 10*3/uL Normal 3.70-11.00 [facility] Comment on above: Order Comment: Speci men Type: BLOOD SPECIMEN Ordering Facility: [facility] Address: [address], [place] [address] Performed By: #### 3 016-3, 15378-3, HSTNT, 23381-7, 12431-7, 73181-5 #### [facility] CLIA [id number] [address] [place] CONSULTon 02-25-2025 CONSULT HNO ID: [id number] Author: RITA HENLEY PA-C Service: Cardiovascular Surgery Author Type: Physician Charter Driver Type: Consults Filed: 02/25/2025 17:36 Note Text: CARDIOTHORACIC SURGERY CONSULT / HANDP SERVICE DATE: 02/25/2025 SERVICE TIME: 11:18 AM Subjective PRIMARY SERVICE: Cardiothoracic Surgery CHIEF COMPLAINT: chest pain/ Shortness of Breath on exertion Consult Reason: CABG eval HPI: This is a 85 year old male with a PMHx of HTN, hypothyroidism, BPH, and cluster headaches who presented to [facility] ED with exertional chest pain and shortness of breath. 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 [...] denies previous cardiac surgery or stenting, prior [place], chest radiation, heart failure, COPD/ lung disease, [...] (more content not included)... Normal [facility] CONSULT HNO ID: [id number] Author: RACHEL PETERS MD Service: Cardiovascular Disease Author Type: Physician Type: Consults Filed: 02/25/2025 11:09 Note Text: Heart, Vascular AND Thoracic [place] Department of Cardiovascular Medicine [facility] CONSULT: CARDIOLOGY SERVICE SERVICE DATE: 02/25/2025 CONSULTING PHYSICIAN: Rachel Peters PCP: Jeremias Damico MD ATTENDING: Omari Heaton MD REASON FOR CONSULT: multivessel CAD Subjective CHIEF COMPLAINT: CABG (coronary artery bypass graft) planned [Z78.9] HISTORY OF PRESENT ILLNESS: Mr. Palacio is a 85 year old male with a history of HTN, hypothyroidism, BPH, a transfer from [place] yesterday. The patient was apparently well until 2 days ago when he noted dyspnea while he was mowing his lawn. He also had chest pain which was 10/10 in severity. Chest pain was retrosternal and was relieved when he rested. On arrival at [facility] yesterday, he was noted to have uptrending [...] Asya RAEDr Pierce PAF (paroxysmal atrial fibrillation) ([facility]) 02/25/2025 Primary hypertension 10/13/2024 PAST SURGICAL HISTORY [...] (more content not included)... Normal [facility] CT CHEST WO IVCONon 02-26-[address] CHEST WO IVCON * * *Final Report* * * DATE OF EXAM: Feb 25 2025 1:37PM [facility] 0541 - CT CHEST WO IVCON [...] be communicated with the ordering provider via [employer] staff message or phone message by [employer] within 2 business days of report finalization. --END OF FINDING-- [employer]: GAEL Transcribe Date/Time: Feb 25 2025 2:53P Dictated by : BELIA ABDUL MD This examination was interpreted and the report reviewed and electronically signed by: BELIA ABDUL MD on Feb 25 2025 3:16PM EST [id number] [id number] Invalid Interpretation Code [facility] ECG COMPLETEon 02-25-2025 ECG COMPLETE Ventricular Rate : 5 5 BPM QRS Duration : 88 ms Q-T Interval : 460 ms QTC Calculation(Bazett) : 440 ms Calculated R Almond : 85 degrees Calculated T Almond : 267 degrees SINUS BRADYCARDIA WITH 1ST DEGREE A-V BLOCK WITH PREMATURE ATRIAL COMPLEXES AND WITH OCCASIONAL BLOCKED PREMATURE ATRIAL COMPLEXES ST & T WAVE ABNORMALITY, CONSIDER INFERIOR ISCHEMIA ABNORMAL ECG WHEN COMPARED WITH ECG OF 25-Feb-2025 00:38, QUESTIONABLE CHANGE IN QRS AXIS T WAVE INVERSION NOW EVIDENT IN INFERIOR LEADS Confirmed by MD JOHN, IVA ([id number]) on 02/26/2025 12:40:39 PM NAME : ELSA PALACIO PID : [id number] : 1940 Gender : Male Race : ORD : [id number] Procedure Date : Feb 25 2025 14:55:32 [...] INFERIOR LEADS Confirmed by MD BACH ANUBHAV ([id number]) on 02/26/2025 12:40:39 PM Test Reason : Arrhythmia Location : 200 : [facility] 4101 Overread By : MD BACH ANUBHAV Edited By : MD BACH ANUBHAV Referred By : SHAWN CHAU Acquired by : CESAR ROLON Normal [facility] ECG COMPLETE Ventricular Rate : 7 1 BPM QRS Duration : 92 ms Q-T Interval : 430 ms QTC Calculation(Bazett) : 467 ms Calculated R Almond : 8 degrees Calculated T Almond : 101 degrees NORMAL SINUS RHYTHM WITH 1ST DEGREE A-V BLOCK POOR R WAVE PROGRESSION NONSPECIFIC ST AND T WAVE ABNORMALITY ABNORMAL ECG NO PREVIOUS ECGS AVAILABLE Confirmed by MD NAPIER DAVID ([id number]) on 02/25/2025 12:33:22 PM NAME : ELSA PALACIO PID : [id number] : 1940 Gender : Male Race : ORD : [id number] Procedure Date : Feb 25 2025 00:38:41 Edit Date : Feb 25 2025 12:33:26 Diagnosis: NORMAL SINUS RHYTHM WITH 1ST DEGREE A-V BLOCK POOR R WAVE PROGRESSION NONSPECIFIC ST AND T WAVE ABNORMALITY ABNORMAL ECG NO PREVIOUS ECGS AVAILABLE Confirmed by MD NAPIER DAVID ([id number]) on 02/25/2025 12:33:22 PM Test Reason : Check QT Location : 200 : [facility]101 Overread By : MD NAPIER DAVID Edited By : MD NAPIER DAVID Referred By : SHAWN CHAU Acquired by : DIPIKA ADRIAN [facility] HIGH SENSITIVITY TROPONIN To n 02-25-2025 Troponin T.cardiac High sensitivity method [Mass/Vol] 287 ng/L High <12 [facility] Comment on above: Order Comment: Speci men Type: BLOOD SPECIMEN Ordering Facility: [facility] Address: [address], [place] [id number] Performed By: #### 3 016-3, 24410-9, HSTNT, 04524-0, 08867-0, 07474-7 #### [facility] CLIA [id number] [address] [place] [address] [place] HISTORY PHYSICALon HISTORY PHYSICAL HNO ID: [id number] Author: YULISSA THORNTON MD Service: Hospital Medicine [...] hx HTN, hypothyroidism, BPH, a transfer fr [place] where he presented w/ exertional chest pain/sob w/ uptrending troponins, 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 VSS, currently comfortable. EKG in [place] [facility] was NSR, EKG here concerning for Afib. [...] home Tamsulosin/finasterid e Full code [facility] MEDICINE HISTORY AND PHYSICAL EXAM SERVICE DATE: 02/25/2025 SERVICE TIME: 12:23 AM Primary Care Physician: Jeremias Damico MD NIGHT AND WEEKEND COVERAGE: From 7am - 7pm, please call Sound After 7pm, please call cross cover pager #[phone] Subjective CHIEF COMPLAINT: Abnormal heart cath HPI: [...] (more content not included)... Normal [facility] HbA1c (Bld)on 02-25-2025 Average glucose Estimated from glycated hemoglobin (Bld) [Mass/Vol] 123 mg/dL Normal [facility] Comment on above: Order Comment: Speci men Type: BLOOD SPECIMEN Ordering Facility: [facility] Address: [address] [address] Result Comment: eAG: (Estimated average glucose) is a calculated value from HgbA1c and is residential sales representative of the average blood glucose level in the last 2-3 month period. Performed By: #### 3 016-3, 72300-6, HSTNT, 15378-9, 58717-9, 18596-5 #### [facility] CLIA [id number] [address] HbA1c (Bld) [Mass fraction] 5.9 % High 4.3-5.6 [facility] Comment on above: Order Comment: Speci men Type: BLOOD SPECIMEN Ordering Facility: [facility] Address: [address] [place] [address] Result Comment: Amer [place] Diabetes Association guidelines indicate that patients with HgbA1c in the range 5.7-6.4% are at increased risk for development of diabetes, and intervention by lifestyle modification may be beneficial. HgbA1c greater or equal to 6.5% is considered diagnostic of diabetes. Performed By: #### 3 016-3, 99008-3, HSTNT, 92451-8, 37488-7, 64233-4 #### [facility] CLIA [id number] [address] Hepatic function 2000 panelo n 02-25-2025 Albumin [Mass/Vol] 3.9 g/dL Normal 3.9-4.9 [facility] Comment on above: Order Comment: Speci men Type: BLOOD SPECIMEN Ordering Facility: [facility] Address: [address] [place] [address] Performed By: #### 3 016-3, 73502-4, HSTNT, 02802-9, 21093-3, 93567-5 #### [facility] CLIA [id number] [address] STATES [facility] ALP [Catalytic activity/Vol] 90 U/L Normal 38-113 [facility] Comment on above: Order Comment: Speci men Type: BLOOD SPECIMEN Ordering Facility: [facility] Address: [address] [place] [address] Performed By: #### 3 016-3, 28725-3, HSTNT, 48185-3, 19422-2, 32418-6 #### [facility] CLIA [id number] [address] [place] [address] [place] ALT With P-5'-P [Catalytic activity/Vol] 18 U/L Normal 10-54 [facility] Comment on above: Order Comment: Speci men Type: BLOOD SPECIMEN Ordering Facility: [facility] Address: [address] [place] [address] Performed By: #### 3 016-3, 57230-2, HSTNT, 65803-4, 43288-9, 69101-4 #### [facility] CLIA [id number] [address] [place] [address] [place] AST With P-5'-P [Catalytic activity/Vol] 44 U/L High 14-40 [facility] Comment on above: Order Comment: Speci men Type: BLOOD SPECIMEN Ordering Facility: [facility] Address: [address] [place] [address] Performed By: #### 3 016-3, 20688-5, HSTNT, 74251-8, 36114-3, 80090-6 #### [facility] CLIA [id number] [address] [place] [address] [place] Bilirubin [Mass/Vol] 0.6 mg/dL Normal 0.2-1.3 [facility] Comment on above: Order Comment: Speci men Type: BLOOD SPECIMEN Ordering Facility: [facility] Address: [address] [place] [address] Performed By: #### 3 016-3, 74804-8, HSTNT, 05568-1, 69151-8, 99082-4 #### [facility] CLIA [id number] [address] [place] [address] [place] Bilirubin.conjugated [Mass/Vol] 0.2 mg/dL Normal <0.3 [facility] Comment on above: Order Comment: Speci men Type: BLOOD SPECIMEN Ordering Facility: [facility] Address: [address] [place] [address] Performed By: #### 3 016-3, 59342-9, HSTNT, 04224-0, 23771-0, 00081-3 #### [facility] CLIA [id number] [address] [place] Protein [Mass/Vol] 6.4 g/dL Normal 6.3-8.0 [facility] Comment on above: Order Comment: Speci men Type: BLOOD SPECIMEN Ordering Facility: [facility] Address: [address] [place] [address] Performed By: #### 3 016-3, 36155-3, HSTNT, 41454-5, 05505-1, 65702-9 #### [facility] CLIA [id number] [address] [place] [address] [place] Magnesium [facility] Magnesium [Mass/Vol] 2.1 mg/dL Normal 1.7-2.3 [facility] Comment on above: Order Comment: Speci men Type: BLOOD SPECIMEN Ordering Facility: [facility] Address: [address] [place] [address] Performed By: #### 3 016-3, 26183-9, HSTNT, 21788-8, 68126-6, 15140-0 #### [facility] CLIA [id number] [address] [place] NT-proBNP SerPl-ncon 02-25 Natriuretic peptide.B prohormone N-Terminal [Mass/Vol] 2640 pg/mL High <450 [facility] Comment on above: Order Comment: Speci men Type: BLOOD SPECIMEN Ordering Facility: [facility] Address: [address] [place] [address] Performed By: #### 3 016-3, 08639-8, HSTNT, 68527-2, 92819-3, 39898-8 #### [facility] CLIA [id number] [address] [place] PT panel Coag (PPP)on 2024 INR Coag (PPP) [Relative time] 1.0 {INR} Normal 0.9-1.3 [facility] Comment on above: Order Comment: Speci men Type: BLOOD SPECIMEN Ordering Facility: [facility] Address: [address] [place] [address] Result Comment: Sigrid min K Antagonist (VKA) Therapeutic Range: INR 2 to 3 (Target INR of 2.5) Note: For patients treated with VKA drugs, such as warfarin, the [place] 2012 Guideline recommends [...] Chest 2012, 141:7S-47S Jose RA, et al. [facility] 2017, 70: 252-289 Performed By: #### 3 016-3, 84357-7, HSTNT, 34023-6, 11286-1, 34200-6 #### [facility] CLIA [id number] [address] [place] [address] [place] PT Coag (PPP) [Time] 10.5 s Normal 9.7-13.0 [facility] Comment on above: Order Comment: Speci men Type: BLOOD SPECIMEN Ordering Facility: [facility] Address: [address] [place] [address] Performed By: #### 3 016-3, 20022-3, HSTNT, 69882-0, 30756-3, 86899-6 #### [facility] CLIA [id number] [address] [place] [address] [place] STAPHYLOCOCCUS AUREUS AND MR SA SCREEN, PCR, NASALon 02-25-2025 S. aureus and MRSA panel MARYANNE+probe (Nose) Not detected Normal Not Detected [facility] Comment on above: Order Comment: Speci men Type: SWAB Ordering Facility: [facility] Address: [address] [place] [address] Performed By: #### S APCR #### [facility] CLIA [id number] [address] STATES [facility] THERAPY NTon 02-25-2025 THERAPY NT HNO ID: [id number] Author: NATA FRY RRT Service: Respiratory Therapy [...] 6:34 PM PAGER/CONTACT #: Normal [facility] TSH SerPl-aCncon 02-25-2025 TSH Qn 1.880 m[IU]/L Normal 0.270-4.200 [facility] Comment on above: Order Comment: Speci men Type: BLOOD SPECIMEN Ordering Facility: [facility] Address: [address] [place], [place] [address] Performed By: #### 1 9123-9, 70653-2 #### [facility] CLIA [id number] [address] [facility] TYPE + SCREENon 02-25-2025 ABO B Normal [facility] Comment on above: Order Comment: Speci men Type: BLOOD SPECIMEN Ordering Facility: [facility] Address: [address] [place] [address] Performed By: #### 3 016-3, 66273-7, HSTNT, 45673-2, 18013-1, 51387-7 #### [facility] CLIA [id number] [address] [facility] Rh Nom (Bld) Positive Normal [facility] Comment on above: Order Comment: Speci men Type: BLOOD SPECIMEN Ordering Facility: [facility] Address: [address] [place] [address] Performed By: #### 3 016-3, 18599-0, HSTNT, 40289-3, 13465-0, 35802-5 #### [facility] CLIA [id number] [address] TYPE AND SCREEN EXPIRATION 02/28/2025 23:59 Normal [facility] Comment on above: Order Comment: Speci men Type: BLOOD SPECIMEN Ordering Facility: [facility] Address: [address] [place] [address] Performed By: #### 3 016-3, 04676-2, HSTNT, 03984-2, 51511-3, 15422-8 #### [facility] CLIA [id number] [address] [facility] US CAROTID BILon 02-25-2025 US CAROTID NGUYỄN * * *Final Report* * * DATE OF EXAM: Feb 25 2025 1:26PM A2U 1077 - US CAROTID NGUYỄN / PROCEDURE REASON: preop cabg * * * * Physician Interpretation * * * * Non-Invasive Vascular Laboratory [facility] Carotid Duplex Bilateral/Complete Date of service/time: 02/25/2025 12:35:13 PM [facility] Name: MR. ELSA PALACIO Date of [...] * * Final * * * [employer]: AMY Transcribe Date/Time: Feb 25 2025 12:35P Dictated by : MCKAYLA PERSON MD This examination was interpreted and the report reviewed and electronically signed by: MCKAYLA PERSON MD on Feb 26 2025 8:50AM EST [id number] Normal [facility] Urinalysis complete panel (U )on 02-25-2025 Bilirubin Ql (U) Negative Normal Negative [facility] Comment on above: Order Comment: Speci men Type: BLOOD SPECIMEN Ordering Facility: [facility] Address: [address] [place], [place] [address] Performed By: #### 3 016-3, 24927-6, HSTNT, 02818-5, 37444-0, 35317-0 #### [facility] CLIA [id number] [address] [place] Clarity (Unsp spec) Turbid Abnormal Clear [facility] Comment on above: Order Comment: Speci men Type: BLOOD SPECIMEN Ordering Facility: [facility] Address: [address] [place] [address] Performed By: #### 3 016-3, 69684-3, HSTNT, 32090-5, 45097-0, 71099-0 #### [facility] CLIA [id number] [address] Color (U) Yellow Normal yellow [facility] Comment on above: Order Comment: Speci men Type: BLOOD SPECIMEN Ordering Facility: [facility] Address: [address] [place] [address] Performed By: #### 3 016-3, 42814-3, HSTNT, 30945-8, 22072-7, 51055-5 #### [facility] CLIA [id number] [address] Epithelial cells LM.HPF (Urine sed) [#/Area] Few Abnormal None Seen [facility] Comment on above: Order Comment: Speci men Type: BLOOD SPECIMEN Ordering Facility: [facility] Address: [address] [place] [address] Performed By: #### 3 016-3, 07040-2, HSTNT, 86658-8, 52846-1, 10943-2 #### [facility] CLIA [id number] [address] [place] Glucose Test strip (U) [Mass/Vol] Negative Normal Trace, Negative [facility] Comment on above: Order Comment: Speci men Type: BLOOD SPECIMEN Ordering Facility: [facility] Address: [address] [place] [address] Performed By: #### 3 016-3, 84902-8, HSTNT, 04514-5, 79307-8, 61327-4 #### [facility] CLIA [id number] [address] [place] [address] [place] Hemoglobin Ql (U) Negative Normal Negative, Trace [facility] Comment on above: Order Comment: Speci men Type: BLOOD SPECIMEN Ordering Facility: [facility] Address: [address] [place] [address] Performed By: #### 3 016-3, 85704-4, HSTNT, 25323-9, 02249-0, 08873-8 #### [facility] CLIA [id number] [address] [facility] Ketones Ql (U) Negative Normal Negative, Trace [facility] Comment on above: Order Comment: Speci men Type: BLOOD SPECIMEN Ordering Facility: [facility] Address: [address] [place] [address] Performed By: #### 3 016-3, 08416-8, HSTNT, 25046-1, 23023-6, 06973-2 #### [facility] CLIA [id number] [address] Leukocyte esterase Test strip Ql (U) Negative Normal Negative, 25 Iliana/uL [facility] Comment on above: Order Comment: Speci men Type: BLOOD SPECIMEN Ordering Facility: [facility] Address: [address] [place] [address] Performed By: #### 3 016-3, 67296-2, HSTNT, 76708-1, 45738-1, 78718-0 #### [facility] CLIA [id number] [address] Nitrite Ql (U) Negative Normal Negative [facility] Comment on above: Order Comment: Speci men Type: BLOOD SPECIMEN Ordering Facility: [facility] Address: [address] [place] [address] Performed By: #### 3 016-3, 51622-4, HSTNT, 89546-9, 56137-4, 40084-5 #### [facility] CLIA [id number] [address] [place] [address] [place] pH (U) 7.5 [pH] Normal 5.0-8.0 [facility] Comment on above: Order Comment: Speci men Type: BLOOD SPECIMEN Ordering Facility: [facility] Address: [address] [place] [address] Performed By: #### 3 016-3, 05417-4, HSTNT, 75262-1, 31784-1, 59085-7 #### [facility] CLIA [id number] [address] [place] [address] [place] Protein (U) [Mass/Vol] Negative Normal Trace, Negative [facility] Comment on above: Order Comment: Speci men Type: BLOOD SPECIMEN Ordering Facility: [facility] Address: [address] [place] [address] Performed By: #### 3 016-3, 95381-1, HSTNT, 07287-5, 72915-0, 93821-3 #### [facility] CLIA [id number] [address] [place] [address] [place] RBC LM.HPF (Urine sed) [#/Area] 11-25 /HPF Abnormal 0-3 /HPF [facility] Comment on above: Order Comment: Speci men Type: BLOOD SPECIMEN Ordering Facility: [facility] Address: [address] [place] [address] Performed By: #### 3 016-3, 43123-3, HSTNT, 63251-3, 32812-4, 04571-3 #### [facility] CLIA [id number] [address] [place] [address] [place] Specific gravity (U) [Rel density] 1.019 Normal 1.005-1.030 [facility] Comment on above: Order Comment: Speci men Type: BLOOD SPECIMEN Ordering Facility: [facility] Address: [address] [place] [address] Performed By: #### 3 016-3, 15008-4, HSTNT, 78618-8, 06977-5, 00017-1 #### [facility] CLIA [id number] [address] [place] Urobilinogen Ql (U) Normal Normal Normal [facility] Comment on above: Order Comment: Speci men Type: BLOOD SPECIMEN Ordering Facility: [facility] Address: [address] [place] [address] Performed By: #### 3 016-3, 22574-2, HSTNT, 95906-4, 23246-6, 21938-5 #### [facility] CLIA [id number] [address] [place] WBC LM.HPF (Urine sed) [#/Area] 0-5 /HPF Normal 0-5 /HPF [facility] Comment on above: Order Comment: Speci men Type: BLOOD SPECIMEN Ordering Facility: [facility] Address: [address] [place] [address] Performed By: #### 3 016-3, 58296-8, HSTNT, 29952-8, 65975-4, 33483-4 #### [facility] CLIA [id number] [address] [place] aPTT PPPon 02-25-2025 aPTT Coag (PPP) [Time] 64.3 s High 23.0-32.4 [facility] Comment on above: Order Comment: Speci men Type: BLOOD SPECIMEN Ordering Facility: [facility] Address: [address] [place] [address] Performed By: #### 3 016-3, 84808-4, HSTNT, 52626-8, 67264-1, 97005-9 #### [facility] CLIA [id number] [address] [place] aPTT Coag (PPP) [Time] 63.5 s High 23.0-32.4 [facility] Comment on above: Order Comment: Speci men Type: BLOOD SPECIMEN Ordering Facility: [facility] Address: [address] [place] [address] Performed By: #### 3 016-3, 52360-7, HSTNT, 60755-2, 46791-1, 88044-7 #### [facility] CLIA [id number] 1 [place] [address] [place] aPTT Coag (PPP) [Time] 35.3 s High 23.0-32.4 [facility] Comment on above: Order Comment: Speci men Type: BLOOD SPECIMEN Ordering Facility: [facility] Address: [facility] [place] [address] Performed By: #### 3 016-3, 90785-1, HSTNT, 01754-9, 59612-0, 95723-0 #### [facility] CLIA [id number] [address] [place] [id number] [facility] Basic Metabolic Profile (BMP )on 02-24-2025 BUN/CRE 16.7 RATIO Normal 10-20 [facility] Comment on above: Performed By: #### L 500.2500, L100.0100, L501.4021 ####[facility] [address] [place], [address] Calcium [Mass/Vol] 9.4 mg/dL Normal 7.6-11.0 [facility] Comment on above: Performed By: #### L 500.2500, L100.0100, L501.4021 ####[facility] [address] [place], [address] Chloride [Moles/Vol] 100 mmol/L Normal 98-108 [facility] Comment on above: Performed By: #### L 500.2500, L100.0100, L501.4021 ####[facility] [address] [place], [address] CO2 [Moles/Vol] 24.9 mmol/L Normal 21.0-32.0 [facility] Comment on above: Performed By: #### L 500.2500, L100.0100, L501.4021 ####[facility] [address] [place], [address] Creatinine [Mass/Vol] 1.11 mg/dL Normal 0.70-1.20 [facility] Comment on above: Performed By: #### L 500.2500, L100.0100, L501.4021 ####[facility] [address] [place], [address] ECRCL 50.24 ml/min Normal 50-250 [facility] Comment on above: Performed By: #### L 500.2500, L100.0100, L501.4021 ####[facility] [address] [place], [address] GAP 9 Normal 5-15 [facility] Comment on above: Performed By: #### L 500.2500, L100.0100, L501.4021 ####[facility] [address] [place], [address] GFR/1.73 sq M.predicted among non-blacks MDRD (S/P/Bld) [Vol rate/Area] 65 mL/min/{1.73_m2} Normal >60 [facility] Comment on above: Result Comment: mL/m in/1.73m2 CKD-EPI Creatinine Equation (2020) Performed By: #### L 500.2500, L100.0100, L501.4021 ####[facility] [address] [place], [address] Glucose [Mass/Vol] 148 mg/dL High 70-99 [facility] Comment on above: Performed By: #### L 500.2500, L100.0100, L501.4021 ####[facility] [address] [place], [address] Potassium [Moles/Vol] 4.1 mmol/L Normal 3.3-5.1 [facility] Comment on above: Performed By: #### L 500.2500, L100.0100, L501.4021 ####[facility] [address] [place], [address] Sodium [Moles/Vol] 135 mmol/L Normal 133-145 [facility] Comment on above: Performed By: #### L 500.2500, L100.0100, L501.4021 ####[facility] [address] [place], [address] Urea nitrogen [Mass/Vol] 19 mg/dL Normal 4-19 [facility] Comment on above: Performed By: #### L 500.2500, L100.0100, L501.4021 ####[facility] [address] [place], [address] CBC W/Diff, Automatedon 11-0 -2024 Absolute Neut Normal 2.0-7.7 [facility] Comment on above: Order Comment: Comme nts: If not done in prior 24 hours Result Comment: DUPL ICATE ORDER, CBCD DONE IN PRIOR 24 HOURS. SPOKE WITH Trudy NELSON RN TO VERIFY Performed By: #### L 300.4310, L300.3900, L100.0100 #### [facility] [address] [place], [address] HCT Normal 40-54 [facility] Comment on above: Order Comment: Comme nts: If not done in prior 24 hours Result Comment: DUPL ICATE ORDER, CBCD DONE IN PRIOR 24 HOURS. SPOKE WITH Trudy NELSON RN TO VERIFY Performed By: #### L 300.4310, L300.3900, L100.0100 #### [facility] [address] [place], [address] HGB Normal 13.0-16.5 [facility] Comment on above: Order Comment: Comme nts: If not done in prior 24 hours Result Comment: DUPL ICATE ORDER, CBCD DONE IN PRIOR 24 HOURS. SPOKE WITH Trudy NELSON RN TO VERIFY Performed By: #### L 300.4310, L300.3900, L100.0100 #### [facility] [address] [place], [address] MCH Normal 27.0-32.0 [facility] Comment on above: Order Comment: Comme nts: If not done in prior 24 hours Result Comment: DUPL ICATE ORDER, CBCD DONE IN PRIOR 24 HOURS. SPOKE WITH Trudy NELSON RN TO VERIFY Performed By: #### L 300.4310, L300.3900, L100.0100 #### [facility] [address] [place], [address] MCHC Normal 32-36 [facility] Comment on above: Order Comment: Comme nts: If not done in prior 24 hours Result Comment: DUPL ICATE ORDER, CBCD DONE IN PRIOR 24 HOURS. SPOKE WITH Trudy NELSON RN TO VERIFY Performed By: #### L 300.4310, L300.3900, L100.0100 #### [facility] [address] [place], [address] MCV Normal 80-94 [facility] Comment on above: Order Comment: Comme nts: If not done in prior 24 hours Result Comment: DUPL ICATE ORDER, CBCD DONE IN PRIOR 24 HOURS. SPOKE WITH Trudy NELSON RN TO VERIFY Performed By: #### L 300.4310, L300.3900, L100.0100 #### [facility] [address] [place], [address] NEUT% Normal 47-70 [facility] Comment on above: Order Comment: Comme nts: If not done in prior 24 hours Result Comment: DUPL ICATE ORDER, CBCD DONE IN PRIOR 24 HOURS. SPOKE WITH Trudy NELSON RN TO VERIFY Performed By: #### L 300.4310, L300.3900, L100.0100 #### [facility] [address] [place], [address] PLT Normal 150-450 [facility] Comment on above: Order Comment: Comme nts: If not done in prior 24 hours Result Comment: DUPL ICATE ORDER, CBCD DONE IN PRIOR 24 HOURS. SPOKE WITH L NELSON RN TO VERIFY Performed By: #### L 300.4310, L300.3900, L100.0100 #### [facility] [address] [place], [address] RBC Normal 4.6-6.2 [facility] Comment on above: Order Comment: Comme nts: If not done in prior 24 hours Result Comment: DUPL ICATE ORDER, CBCD DONE IN PRIOR 24 HOURS. SPOKE WITH Trudy NELSON RN TO VERIFY Performed By: #### L 300.4310, L300.3900, L100.0100 #### [facility] [address] [place], [address] RDW CV Normal 11.6-14.6 [facility] Comment on above: Order Comment: Comme nts: If not done in prior 24 hours Result Comment: DUPL ICATE ORDER, CBCD DONE IN PRIOR 24 HOURS. SPOKE WITH Trudy NELSON RN TO VERIFY Performed By: #### L 300.4310, L300.3900, L100.0100 #### [facility] [address] [place], [address] RDW SD Normal 35.1-43.9 [facility] Comment on above: Order Comment: Comme nts: If not done in prior 24 hours Result Comment: DUPL ICATE ORDER, CBCD DONE IN PRIOR 24 HOURS. SPOKE WITH Trudy NELSON RN TO VERIFY Performed By: #### L 300.4310, L300.3900, L100.0100 #### [facility] [address] [place], [address] WBC Normal 4.4-11.0 [facility] Comment on above: Order Comment: Comme nts: If not done in prior 24 hours Result Comment: DUPL ICATE ORDER, CBCD DONE IN PRIOR 24 HOURS. SPOKE WITH Trudy NELSON RN TO VERIFY Performed By: #### L 300.4310, L300.3900, L100.0100 #### [facility] [address] [place], [address] Absolute Lymph 1.59 X10 3/uL Normal 0.83-4.51 [facility] Comment on above: Performed By: #### L 500.2500, L100.0100, L501.4021 #### [facility] [address] [place], [address] Absolute Neut 6.8 X10 3/uL Normal 2.0-7.7 [facility] Comment on above: Performed By: #### L 500.2500, L100.0100, L501.4021 #### [facility] [address] [place], [address] Basophils/100 WBC (Bld) 0.5 % Normal 0-1 [facility] Comment on above: Performed By: #### L 500.2500, L100.0100, L501.4021 #### [facility] [address] [place], [address] Eosinophils/100 WBC (Bld) 1.7 % Normal 0-5 [facility] Comment on above: Performed By: #### L 500.2500, L100.0100, L501.4021 #### [facility] [address] [place], [address] Erythrocyte distribution width (RBC) [Ratio] 12.2 % Normal 11.6-14.6 [facility] Comment on above: Performed By: #### L 500.2500, L100.0100, L501.4021 #### [facility] [address] [place], [address] Hematocrit (Bld) [Volume fraction] 43.4 % Normal 40-54 [facility] Comment on above: Performed By: #### L 500.2500, L100.0100, L501.4021 #### [facility] [address] [place], [address] Hemoglobin (Bld) [Mass/Vol] 14.4 g/dL Normal 13.0-16.5 [facility] Comment on above: Performed By: #### L 500.2500, L100.0100, L501.4021 #### [facility] [address] [place], [address] IG% 0.300 Normal 0.0-0.9 [facility] Comment on above: Result Comment: IG% - Immature Granulocytes (promyelocytes, myelocytes and metamyelocytes) > 1% indicates that a LEFT SHIFT is Present. Performed By: #### L 500.2500, L100.0100, L501.4021 #### [facility] [address] [place], [address] Lymphocytes/100 WBC (Bld) 17.2 % Low 19-41 [facility] Comment on above: Performed By: #### L 500.2500, L100.0100, L501.4021 #### [facility] [address] [place], [address] MCH (RBC) [Entitic mass] 31.0 pg Normal 27.0-32.0 [facility] Comment on above: Performed By: #### L 500.2500, L100.0100, L501.4021 #### [facility] [address] [place], [address] MCHC (RBC) [Mass/Vol] 33.2 g/dL Normal 32-36 [facility] Comment on above: Performed By: #### L 500.2500, L100.0100, L501.4021 #### [facility] [address] [place], [address] MCV (RBC) [Entitic vol] 93.3 fL Normal 80-94 [facility] Comment on above: Performed By: #### L 500.2500, L100.0100, L501.4021 #### [facility] [address] [place], [address] Monocytes/100 WBC (Bld) 6.5 % Normal 0-10 [facility] Comment on above: Performed By: #### L 500.2500, L100.0100, L501.4021 #### [facility] [address] [place] [place], [address] Neutrophils/100 WBC (Bld) 73.8 % High 47-70 [facility] Comment on above: Performed By: #### L 500.2500, L100.0100, L501.4021 #### [facility] [address] [place], [address] Nucleated RBC (Bld) [#/Vol] 0 10*3/uL Normal 0-5 [facility] Comment on above: Performed By: #### L 500.2500, L100.0100, L501.4021 #### [facility] [address] [place], [address] Platelet mean volume (Bld) [Entitic vol] 9.8 fL Normal 6.2-12.0 [facility] Comment on above: Performed By: #### L 500.2500, L100.0100, L501.4021 #### [facility] [address] [place] [place], [address] Platelets (Bld) [#/Vol] 225 10*3/uL Normal 150-450 [facility] Comment on above: Performed By: #### L 500.2500, L100.0100, L501.4021 #### [facility] [address] [place], [address] RBC (Bld) [#/Vol] 4.65 10*6/uL Normal 4.6-6.2 [facility] Comment on above: Performed By: #### L 500.2500, L100.0100, L501.4021 #### [facility] [address] [place], [address] RDW SD 42.0 fl Normal 35.1-43.9 [facility] Comment on above: Performed By: #### L 500.2500, L100.0100, L501.4021 #### [facility] [address] [place], [address] WBC (Bld) [#/Vol] 9.3 10*3/uL Normal 4.4-11.0 [facility] Comment on above: Performed By: #### L 500.2500, L100.0100, L501.4021 #### [facility] [address] [place], [address] Cardiac Cath Diagnosticon Cardiac Cath Diagnostic [facility] Imaging Services [address] [facility] [place] [address] Cardiac Cath Diagnostic MR#: [id number] Acct: [id number] Name: ELSA PALACIO Rep #: [id number] : 1940 85 From: Augustine oMy MD PCP: Dr. Jeremias Damico MD Status:ADM IN Patient Name: ELSA PALACIO Study Date: 02/24/2025 Performing: Sravan Moy MD Ht: 70 inches 177.8 cm : 1940 Wt: 164.2 lbs 74.39 kg Age: 85 Gender: male BSA: 1.92 PROCEDURE(S) PERFORMED DC01-(28680)LHC/COR/L V CLINICAL PROFILE AND INDICATIONS Indications: ACS [...] Dictated: 02/24/25 1125 Date Transcribed: 02/24/25 1226 [employer]: NN Signed Normal [facility] Chest 1 View (Portable)on Chest 1 View (Portable) [facility] Imaging Services [address] [place] [address] ( Chest 1 View (Portable) MR#: [id number] Acct: [id number] Name: ELSA PALACIO Rep #: [id number] : 1940 M 85 From: Elvis Jarvis MD PCP: Dr. Jeremias Damico MD Status: REG ER Study: Chest 1 View (Portable) Date of Exam: 02/24/25 Exam# [id number] Ordering Dr: Salomon Marquez MD PROCEDURE: CHEST 1 VIEW (PORTABLE) 02/24/2025 REASON FOR EXAM: CHEST PAIN TECHNIQUE: Frontal view of the chest. COMPARISON: None FINDINGS: Hardware: EKG leads Heart: The heart size is normal. The aorta is atherosclerotic. Lungs: The lungs are clear. Bones: The bones are unremarkable. RAD/Chest 1 View (Portable) IMPRESSION: No acute cardiopulmonary process. Reading Location: [id number] CC: Dr. Salomon Marquez MD; Dr. Jeremias Damico MD [employer]: Signed Normal [facility] Consultation - Cardiologyon 02-24-2025 Consultation - Cardiology [facility] Medical Records Department [address] [place] [address] Consultation - Cardiology 02/24/25 0957 MR#: [id number] Acct: [id number] Name: ELSA PALACIO Rep #: [id number] : 1940 85 From: Shawn Chau MD [...] of about 5 years ago through the [facility] been evaluated for dyspnea on exertion. [...] through Dr. Milind Ty's office at the [facility] for primary services. The patient is not allergic to iodine. [facility] Medical History (Updated 02/24/25 @ 10:09 by [...] HEENT: Reports (more content not included)... Normal [facility] Echo Completeon 02-24-2025 Echo Complete [facility] [address] [place] [address] Echo Complete 02/24/25 1318 MR#: [id number] Acct: [id number] Name: ELSA PALACIO Rep #: [id number] : 1940 85 From: Donna Ndiaye MD Attending Dr: Dr. Anibal Shore MD Status: ADM IN Ordering Dr: Anibal Shore MD Date: 02/24/25 Location: [facility] Sex: M C Admitted: 02/24/25 Reason [...] Physician: Jeremias Damico Performed By: Santino ANGULO [facility] CORPORATIONRaquel and Student 02/24/25 1543 Date Donna Ndiaye MD CC: Dr. Anibal Shore MD; Dr. Jeremias Damico MD; Dr. Augustine Moy MD Date Dictated: 02/24/25 1318 Date Transcribed: 02/24/25 1543 [employer]: Signed Normal [facility] Emergency Department Summary on 02-24-2025 Emergency Department Summary [facility] Medical Records Department [address] [place] [address] Emergency Department Summary 02/24/25 MR#: [id number] Acct: [id number] Name: ELSA PALACIO Rep #: [id number] : 1940 85 From: Salomon Marquez MD PCP: Dr. Jeremias Damico MD Status:ADM IN Location: [place] [address] HPI History of Present Illness Chief Complaint: [...] 4-6 years ago, with no reported abnormalities. [facility] Medical History Hypertension Home Medications [...] regular rate, (more content not included)... Normal [facility] H AND P Exam - Hospitaliston 02-24-2025 H&P Exam - Hospitalist [facility] Medical Records Department [address] [place] [address] H P Exam - Hospitalist 02/24/25 0946 MR#: [id number] Acct: [id number] Name: ELSA PALACIO Rep #: [id number] : 1940 85 From: Anibal Shore MD PCP: Dr. Jeremias Damico MD Status:ADM IN Location: [address] HPI - General General Date of [...] Cardiology was consulted patient started on heparin [facility] Medical History (Updated 02/24/25 @ 10:09 by [...] 73.8 H, Lymph % (Auto) 17.2 L, Miner % (Auto) 6.5, Eos % (Auto) 1.7, [...] IMPRESSION: No acute cardiopulmonary process. Reading Location: [facility] Assessment Plan Assessment/Plan (1) ACS (acute coronary syndrome): PLAN: Plan Patient is an 85-year-old gentleman presenting with exertional chest pain with elevated troponin 1. Acute non-STEMI ??? Patient admitted to monitored bed treatment initiated per protoc (more content not included)... Normal [facility] L501.4021on 02-24-2025 Trop T High Sen 218 ng/L Invalid Interpretation Code <=22 [facility] Comment on above: Result Comment: Crit ical Result(s) Called at: 0905 02/24/25 by: NAN LONG??Results read back by same. Performed By: #### L 500.2500, L100.0100, L501.4021 #### [facility] [address] [place], [address] Partial Thromboplast Timeon 02-24-2025 aPTT Coag (Bld) [Time] 27.5 s Normal 24.1-36.2 [facility] Comment on above: Order Comment: Comme nts: If not done in prior 24 hours Performed By: #### L 300.4310, L300.3900, L100.0100 #### [facility] [address] [place], [address] Prothrombin Time w/INRon INR Coag (PPP) [Relative time] 1.0 {INR} Normal [facility] Comment on above: Order Comment: Comme nts: If not done in prior 24 hours Performed By: #### L 300.4310, L300.3900, L100.0100 #### [facility] [address] [place], [address] PT Coag (PPP) [Time] 13.4 s Normal 11.7-14.9 [facility] Comment on above: Order Comment: Comme nts: If not done in prior 24 hours Performed By: #### L 300.4310, L300.3900, L100.0100 #### [facility] [address] [place], [address] Troponin T HS 2 HRon 025 Trop T High Sen 243 ng/L Invalid Interpretation Code <=22 [facility] Comment on above: Result Comment: Crit ical Result(s) Called at:11202/24/25 by:??LTAYLOR Results read back by same. Performed By: #### L 499.0042 ####[facility] [address] [place], [address] Troponin T HS 4 HRon 025 Trop T High Sen 252 ng/L Invalid Interpretation Code <=22 [facility] Comment on above: Result Comment: Crit ical Result(s) Called at: 1251 02/24/25 by: HARPER??Results read back by same. Performed By: #### L 499.0043 ####[facility] [address] 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 docusate sodium(AlumniFunder LIQUI-GELS 100 MG CAP) Take by mouth [...] Past Histories independently gathered by the clinical patient support associate and the remaining scribed note accurately desc (more content not included)... Normal [facility] CNOVon 12-22-2024 CNOV Office Visit (UROLWS ) ELSA PALACIO ([id number]) 1940 M Date Time Provider Department 12/22/24 2:00 PM SHAQ BISHOP During your visit today, we recorded the following information about you: Leilani Archer LPN 12/22/2024 4:42 PM Signed Verified name and date of . CC Post Void Residual HPI: Elsa Palacio is a 84 year old male. The patient is here now for an appointment with MARTHA Martinez, CT, PA-COV. Procedure: Explained procedure to patient and verbalizes understanding. Performed a PVR. Patient urinated and instructed to empty bladder as much as possible just prior to having PVR done using bladder ultrasound scanner. Results of scan: 0 mL The patient tolerated the procedure well. Plan: Appointment with Shaq. Shaq Bishop PA-C 12/22/2024 4:42 PM Signed [facility] EST PATIENT CLINIC NOTE (M) Some elements copied from his previous note, which have been updated where appropriate, and all reflect current medical decision making from date of this visit. Note was generated by [employer] and edited as appropriate SERVICE DATE: [...] mg by mouth daily at bedtime. docusate sodium(AlumniFunder LIQUI-GELS 100 MG CAP) Take by mouth [...] (POCT) Cl (more content not included)... Normal [facility] UA DIP, URINE (POC)on 2024 BILIRUBIN UA (POCT) Negative Negative [facility] CLARITY UA (POCT) Clear [facility] COLOR UA (POCT) Dark yellow [facility] GLUCOSE UA (POCT) Negative Negative mg/dL [facility] Hemoglobin Ql (U) Trace-intact Abnormal Negative [facility] Interpretation and review of laboratory results Abnormal [facility] KETONE UA (POCT) Negative Negative mg/dL [facility] LEUKOCYTES UA (POCT) Negative Negative [facility] NITRITE UA (POCT) Negative Negative [facility] PH UA (POCT) 6.0 4.5 - 8.0 [facility] Protein Ql (U) Negative Negative mg/dL [facility] SPECIFIC GRAVITY UA (POCT) 1.015 1.005 - 1.030 [facility] UROBILINOGEN UA (POCT) 0.2 Normal E.U./dL [facility] Location:[facility], [address] [facility], [place], [place], [address] [place] [address] POINT OF CARE [facility] CNOVon 12-17-2024 CNOV Office Visit (FAMPWS ) LILA PALACIORAZA Trudy ([id number]) 1940 M Date Time Provider Department 12/17/24 [...] General (Family Medicine) Zeeshan Mahmood APRN.RUTHIE as Die Turner (Family Medicine) Outside specialists seen: Urology, Dermatology [...] (IMITREX STA (more content not included)... Normal [facility] CBC panel Auto (Bld)on 12-14 Erythrocyte distribution width (RBC) [Ratio] 12.3 % Normal 11.5-15.0 [facility] Comment on above: Order Comment: Speci men Type: BLOOD SPECIMENOrdering Facility: [facility] Address: [address] [place] [address] Performed By: #### 5 8410-2 ####[facility] LABCLIA [id number] [place] [address] [place] Hematocrit (Bld) [Volume fraction] 44.3 % Normal 39.0-51.0 [facility] Comment on above: Order Comment: Speci men Type: BLOOD SPECIMENOrdering Facility: [facility] Address: [address] [place] [address] Performed By: #### 5 8410-2 ####[facility] LABCLIA [id number] [place] [address] [place] Hemoglobin (Bld) [Mass/Vol] 14.7 g/dL Normal 13.0-17.0 [facility] Comment on above: Order Comment: Speci men Type: BLOOD SPECIMENOrdering Facility: [facility] Address: [address] [place] [address] Performed By: #### 5 8410-2 ####[facility] LABIA [id number] [address] [place] MCH (RBC) [Entitic mass] 30.7 pg Normal 26.0-34.0 [facility] Comment on above: Order Comment: Speci men Type: BLOOD SPECIMENOrdering Facility: [facility] Address: [address] [place] [address] Performed By: #### 5 8410-2 ####[facility] LABIA [id number] [place] [address] [place] MCHC (RBC) [Mass/Vol] 33.2 g/dL Normal 30.5-36.0 [facility] Comment on above: Order Comment: Speci men Type: BLOOD SPECIMENOrdering Facility: [facility] Address: [address] [place] [address] Performed By: #### 5 8410-2 ####[facility] LABIA [id number] [place] [address] [place] MCV (RBC) [Entitic vol] 92.5 fL Normal 80.0-100.0 [facility] Comment on above: Order Comment: Speci men Type: BLOOD SPECIMENOrdering Facility: [facility] Address: [address] [place] [address] Performed By: #### 5 8410-2 ####[facility] LABIA [id number] [place] [address] [place] Nucleated RBC (Bld) [#/Vol] 10*3/uL Normal <0.01 [facility] Comment on above: Order Comment: Speci men Type: BLOOD SPECIMENOrdering Facility: [facility] Address: [address] [place] [address] Performed By: #### 5 8410-2 ####[facility] LABIA [id number] [address], [place] [address] [place] Platelet mean volume (Bld) [Entitic vol] 10.4 fL Normal 9.0-12.7 [facility] Comment on above: Order Comment: Speci men Type: BLOOD SPECIMENOrdering Facility: [facility] Address: [address] [place] [address] Performed By: #### 5 8410-2 ####[facility] LABIA [id number] [place] [address] [place] Platelets (Bld) [#/Vol] 213 10*3/uL Normal 150-400 [facility] Comment on above: Order Comment: Speci men Type: BLOOD SPECIMENOrdering Facility: [facility] Address: [address] [place] [address] Performed By: #### 5 8410-2 ####[facility] LABIA [id number] [place] [id number] [place] RBC (Bld) [#/Vol] 4.79 10*6/uL Normal 4.20-6.00 [facility] Comment on above: Order Comment: Speci men Type: BLOOD SPECIMENOrdering Facility: [facility] Address: [address] [place] [address] Performed By: #### 5 8410-2 ####[facility] LABCLIA [id number] [address] [address] [place] WBC (Bld) [#/Vol] 8.26 10*3/uL Normal 3.70-11.00 [facility] Comment on above: Order Comment: Speci men Type: BLOOD SPECIMENOrdering Facility: [facility] Address: [address] [place] [address] Performed By: #### 5 8410-2 ####[facility] LABCLIA [id number] [address] [address] [place] Comprehensive metabolic 2000 panelon 12-14-2024 Albumin [Mass/Vol] 3.9 g/dL Normal 3.9-4.[address] [facility] Comment on above: Order Comment: Speci men Type: BLOOD SPECIMENOrdering Facility: [facility] Address: [address] [place] [address] Performed By: #### 2 4331-1, 97720-0, 3015-3 ####[facility] LABCLIA [id number] [place] [id number] [place] ALP [Catalytic activity/Vol] 93 U/L Normal 38-113 [facility] Comment on above: Order Comment: Speci men Type: BLOOD SPECIMENOrdering Facility: [facility] Address: [address] [place] [address] Performed By: #### 2 4331-1, 31716-3, 3015-3 ####[facility] LABCLIA [id number] [address] [address] [place] ALT [Catalytic activity/Vol] 15 U/L Normal 10-54 [facility] Comment on above: Order Comment: Speci men Type: BLOOD SPECIMENOrdering Facility: [facility] Address: [address] [place], [place] [address] Performed By: #### 2 4331-1, 13195-5, 6-3 ####[facility] LABCLIA [id number] [address] [address] [place] Anion gap [Moles/Vol] 11 mmol/L Normal 8-15 [facility] Comment on above: Order Comment: Speci men Type: BLOOD SPECIMENOrdering Facility: [facility] Address: [address] [place], [place] [address] Performed By: #### 2 4331-1, 69742-8, 6-3 ####[facility] LABCLIA [id number] [address] [address] [place] AST [Catalytic activity/Vol] 15 U/L Normal 14-40 [facility] Comment on above: Order Comment: Speci men Type: BLOOD SPECIMENOrdering Facility: [facility] Address: [address] [place] [address] Performed By: #### 2 4331-1, 49636-9, 6-3 ####[facility] LABIA [id number] [place] [id number] [place] Bilirubin [Mass/Vol] 0.2 mg/dL Normal 0.2-1.3 [facility] Comment on above: Order Comment: Speci men Type: BLOOD SPECIMENOrdering Facility: [facility] Address: [address] [place], [place] [address] Performed By: #### 2 4331-1, 25596-7, 6-3 ####[facility] [facility] LABCLIA [id number] [address] [address] [place] Calcium [Mass/Vol] 9.7 mg/dL Normal 8.5-10.[address] [facility] Comment on above: Order Comment: Speci men Type: BLOOD SPECIMENOrdering Facility: [facility] Address: [address] [place], [place] [address] Performed By: #### 2 4331-1, 10867-8, 3016-3 ####[facility] LABCLIA [id number] [address] [address] [place] Chloride [Moles/Vol] 103 mmol/L Normal 98-107 [facility] Comment on above: Order Comment: Speci men Type: BLOOD SPECIMENOrdering Facility: [facility] Address: [address] [place] [address] Performed By: #### 2 4331-1, 82013-2, 3016-3 ####[facility] LABCLIA [id number] [place] [id number] [place] CO2 [Moles/Vol] 24 mmol/L Normal 22-30 [facility] Comment on above: Order Comment: Speci men Type: BLOOD SPECIMENOrdering Facility: [facility] Address: [address] [place] [address] Performed By: #### 2 4331-1, 87902-8, 3016-3 ####[facility] LABCLIA [id number] [place] [id number] [place] Creatinine [Mass/Vol] 1.13 mg/dL Normal 0.73-1.22 [facility] Comment on above: Order Comment: Speci men Type: BLOOD SPECIMENOrdering Facility: [facility] Address: [address] [place] [address] Performed By: #### 2 4331-1, 48873-8, 3016-3 ####[facility] LABCLIA [id number] [place] [id number] [place] eGFRcr SerPlBld CKD-EPI 2020 64 mL/min/1.73m??? Normal >=60 [facility] Comment on above: Order Comment: Speci men Type: BLOOD SPECIMENOrdering Facility: [facility] Address: [address] [place] [address] Result Comment: Monie mated Glomerular Filtration Rate [...] Performed By: #### 2 4331-1, , 3 ####[facility] LABCLIA [id number] [facility] [address] [place] [address] [address] [place] Glucose [Mass/Vol] 113 mg/dL High 74-[address] [facility] Comment on above: Order Comment: Speci men Type: BLOOD SPECIMENOrdering Facility: [facility] Address: [address] [place] [address] Result Comment: The [place] Diabetes Association (ADA) provides guidance for cutoff [...] Standards of Medical Care in Diabetes 2016, [place] Diabetes Association. Diabetes Care. 2016.39(Suppl 1). Performed By: #### 2 4331-1, , 3015-06 ####[facility] LABCLIA [id number] [facility]ITALK [address] [address] [place] Potassium [Moles/Vol] 4.6 mmol/L Normal 3.7-5.1 [facility] Comment on above: Order Comment: Sharon men Type: BLOOD SPECIMENOrdering Facility: [facility] Address: [address] [place] [address] Performed By: #### 2 4331-1, , 3015-06 ####[facility] LABCLIA [id number] [facility] AVEN[address] [address] [place] Protein [Mass/Vol] 6.2 g/dL Low 6.3-8.[address] [facility] Comment on above: Order Comment: Speci men Type: BLOOD SPECIMENOrdering Facility: [facility] Address: [address] [place] [address] Performed By: #### 2 4331-1, , 3 ####[facility] LABCLIA [id number] [facility] [address] [place] [address] [place] Sodium [Moles/Vol] 138 mmol/L Normal 136-[address] [facility] Comment on above: Order Comment: Speci men Type: BLOOD SPECIMENOrdering Facility: [facility] Address: [address] [place], [place] [address] Performed By: #### 2 4331-1, , 3015-06 ####[facility] LABCLIA [id number] [address] [address] [place] Urea nitrogen [Mass/Vol] 18 mg/dL Normal 9-24 [facility] Comment on above: Order Comment: Speci men Type: BLOOD SPECIMENOrdering Facility: [facility] Address: [address] [place], [place] [address] Performed By: #### 2 4331-1, , 3015-06 ####[facility] LABCLIA [id number] [address] [place] [address] [place] Lipid 1996 panelon 5 Cholesterol [Mass/Vol] 186 mg/dL Normal <200 [facility] Comment on above: Order Comment: Speci men Type: BLOOD SPECIMENOrdering Facility: [facility] Address: [address] [place] [address] Result Comment: <200 mg/dL, Desirable 200-239 mg/dL, Borderline high >239 mg/dL, High Performed By: #### 2 4331-1, , 3015-06 ####[facility] LABCLIA [id number] [address] [place] [address] [place] Cholesterol in HDL [Mass/Vol] 45 mg/dL Normal >39 [facility] Comment on above: Order Comment: Sharon shaw Type: BLOOD SPECIMENOrdering Facility: [facility] Address: [address] [place] [address] Result Comment: 40-5 9 mg/dL, Acceptable >59 mg/dL, High: Negative risk factor for coronary heart disease <40 mg/dL, Low: Positive risk factor for coronary heart disease Performed By: #### 2 4331-1, 15169-5, 6-3 ####[facility] LABIA [id number] [address] [facility] Cholesterol in LDL [Mass/Vol] 116 mg/dL High <100 [facility] Comment on above: Order Comment: Teresebrian shaw Type: BLOOD SPECIMENOrdering Facility: [facility] Address: [address] [place] [address] Result Comment: <100 mg/dL, Optimal 100-129 mg/dL, Near optimal/above optimal 130-159 mg/dL, Borderline high 160-189 mg/dL, High >189 mg/dL, Very high Secondary prevention optimal LDL Cholesterol levels are recommended to be <70 mg/dL LDL cholesterol is calculated using the Rodriguez-NIH equation. Performed By: #### 2 4331-1, 15405-7, 3015-3 ####[facility] LABIA [id number] [address] [place] Cholesterol in LDL/Cholesterol in HDL [Mass ratio] 2.58 {ratio} High <2.54 [facility] Comment on above: Order Comment: Sharon shaw Type: BLOOD SPECIMENOrdering Facility: [facility] Address: [address] [place] [address] Result Comment: Refe rence: 1. National Cholesterol Education Program ATP III Guideline At-A-Glance Quick Desk Reference: National Heart, Lung, and Blood [place]. National Institutes of Health. 2001: NIH Publication No. 01-3305. 2. An International Atherosclerosis Society position paper: global recommendations for the management of dyslipidemia: executive summary, Atherosclerosis. 2014: 232(2):410-413. Performed By: #### 2 4331-1, , 3015-06 ####[facility] LABCLIA [id number] [address] [place] [address] [place] Cholesterol in VLDL [Mass/Vol] 24 mg/dL Normal <30 [facility] Comment on above: Order Comment: Speci men Type: BLOOD SPECIMENOrdering Facility: [facility] Address: [address] [place], [place] [address] Performed By: #### 2 4331-1, , 3015-06 ####[facility] LABCLIA [id number] [address] [place] [address] [place] Cholesterol non HDL [Mass/Vol] 141 mg/dL High <130 [facility] Comment on above: Order Comment: Speci men Type: BLOOD SPECIMENOrdering Facility: [facility] Address: [address] [place] [address] Result Comment: <130 mg/dL, Optimal 130-159 mg/dL, Near optimal/above optimal 160-189 mg/dL, Borderline high 190-219 mg/dL, High >219 mg/dL, Very high Secondary prevention optimal non HDL Cholesterol levels are recommended to be <100 mg/dL Performed By: #### 2 4331-1, , 3015-06 ####[facility] LABCLIA [id number] [address] [place] [address] [place] Cholesterol.total/Cho lesterol in HDL [Mass ratio] 4.13 {ratio} Normal <5.10 [facility] Comment on above: Order Comment: Speci men Type: BLOOD SPECIMENOrdering Facility: [facility] Address: [address] [place] [address] Performed By: #### 2 4331-1, , 3015-06 ####[facility] LABCLIA [id number] [address] [place] [address] [place] FASTING TIME 12 hrs Normal [facility] Comment on above: Order Comment: Speci men Type: BLOOD SPECIMENOrdering Facility: [facility] Address: [address] [place] [address] Performed By: #### 2 4331-1, 08528-2, 3 ####[facility] LABCLIA [id number] [place] [id number] [place] Triglyceride [Mass/Vol] 140 mg/dL Normal <150 [facility] Comment on above: Order Comment: Speci men Type: BLOOD SPECIMENOrdering Facility: [facility] Address: [address] [place] [address] Result Comment: <150 mg/dL, Normal 150-199 mg/dL, Borderline high 200-499 mg/dL, High >499 mg/dL, Very high Performed By: #### 2 4331-1, 03035-6, 3 ####[facility] LABCLIA [id number] [place] [id number] [place] TSH SerPl-aCncon 12-14-2024 TSH Qn 0.466 m[IU]/L Normal 0.270-4.200 [facility] Comment on above: Order Comment: Speci men Type: BLOOD SPECIMENOrdering Facility: [facility] Address: [address] [place] [address] Performed By: #### 2 4331-1, 05952-4, 3 ####[facility] LABIA [id number] [place] [id number] [place] CNOVon 11-19-2024 CNOV Office Visit (FAMPWS ) ELSA PALACIO ([id number]) 1940 M Date Time Provider Department 11/19/24 [...] mg by mouth daily at bedtime. docusate sodium(AlumniFunder LIQUI-GELS 100 MG CAP) Take by mouth [...] to 100 mg daily; prescription sent to [facility] in [place]. - Advised patie (more content not included)... Normal [facility] CNOVon 10-13-2024 CNOV Office Visit (FAMPWS ) ELSA PALACIO ([id number]) 1940 M Date Time Provider Department 10/13/24 4:40 PM [facility] During [facility] visit today, we recorded [...] mg by mouth daily at bedtime. docusate sodium(AlumniFunder LIQUI-GELS 100 MG CAP) Take by mouth [...] Prescription for losartan 50 mg sent to [facility]. - Follow- (more content not included)... Normal [facility] CNOVon 09-04-2024 CNOV Office Visit (FAMPWS ) ELSA PALACIO ([id number]) 1940 M Date Time Provider Department 09/04/24 [...] BP and reported readings on 08/27/24 via [employer]. Denies any chest pains, dizziness, SOB, or [...] mg by mouth daily at bedtime. docusate sodium(AlumniFunder LIQUI-GELS 100 MG CAP) Take by mouth [...] or Mediterranean (more content not included)... Normal [facility] CNOVon 08-04-2024 CNOV Office Visit (NEHAHC ) ELSA PALACIO ([id number]) 1940 M Date Time Provider Department 08/04/24 9:30 AM [facility] During your visit today, we recorded the following information about you: Pulse Respiration Blood pressure Weight 55/minute 20/minute 147/77 80.5 kg Height 1.762 m Snow Brooks, NIDHI.GOLF CADDY 08/04/2024 10:06 AM Signed [facility] Follow up visit August 04, 2024 Chief [...] mg by mouth daily at bedtime. docusate sodium(AlumniFunder LIQUI-GELS 100 MG CAP) Take by mouth [...] last v (more content not included)... Normal [facility] UA DIP, URINE (POC)on 2023 BILIRUBIN UA (POCT) Negative Negative [facility] CLARITY UA (POCT) Clear [facility] COLOR UA (POCT) Dark yellow [facility] GLUCOSE UA (POCT) Negative Negative mg/dL [facility] Hemoglobin Ql (U) Negative Negative [facility] KETONE UA (POCT) Negative Negative mg/dL [facility] LEUKOCYTES UA (POCT) Negative Negative [facility] NITRITE UA (POCT) Negative Negative [facility] PH UA (POCT) 5.5 4.5 - 8.0 [facility] Protein Ql (U) Negative Negative mg/dL [facility] SPECIFIC GRAVITY UA (POCT) 1.025 1.005 - 1.030 [facility] UROBILINOGEN UA (POCT) 0.2 Normal E.U./dL [facility] Location:[facility], [address], [place], [place], [id number] [place] [address] POINT OF CARE [facility] ECG COMPLETEon 01-25-2023 Atrial Rate 70 BPM [facility] Calculated P [place] 41 degrees [facility] Calculated R [place] 25 degrees [facility] Calculated T [place] 58 degrees [facility] P-R Interval 208 ms [facility] QRS Duration 88 ms [facility] QT Interval 444 ms [facility] QTC Calculation (Bazett) 479 ms [facility] Ventricular Rate 70 BPM [facility] UA DIP, URINE (POC)on 2022 BILIRUBIN UA (POCT) Small Abnormal Negative [facility] CLARITY UA (POCT) Clear [facility] COLOR UA (POCT) Dark yellow [facility] GLUCOSE UA (POCT) Negative Negative mg/dL [facility] HEMOGLOBIN/BLOOD UA (POCT) Trace-intact Abnormal Negative [facility] KETONE UA (POCT) 15 mg/dL Abnormal Negative mg/dL [facility] LEUKOCYTES UA (POCT) Negative Negative [facility] NITRITE UA (POCT) Negative Negative [facility] PH UA (POCT) 7.0 4.5 - 8.0 [facility] Protein Ql (U) 30 mg/dL Abnormal Negative mg/dL [facility] SPECIFIC GRAVITY UA (POCT) 1.020 1.005 - 1.030 [facility] UROBILINOGEN UA (POCT) 0.2 E.U./dL Normal E.U./dL [facility] UA DIP, URINE (POC)on 2021 BILIRUBIN UA (POCT) Negative Negative [facility] CLARITY UA (POCT) Clear [facility] COLOR UA (POCT) Dark yellow [facility] GLUCOSE UA (POCT) Negative Negative mg/dL [facility] HEMOGLOBIN/BLOOD UA (POCT) Trace-lysed Abnormal Negative [facility] KETONE UA (POCT) Negative Negative mg/dL [facility] LEUKOCYTES UA (POCT) Negative Negative [facility] NITRITE UA (POCT) Negative Negative [facility] PH UA (POCT) 7.0 4.5 - 8.0 [facility] Protein Ql (U) Trace Abnormal Negative mg/dL [facility] SPECIFIC GRAVITY UA (POCT) 1.020 1.005 - 1.030 [facility] UROBILINOGEN UA (POCT) 0.2 E.U./dL Normal E.U./dL [facility] STRESS TEST EXERCISEon 02-02 STRESS TEST EXERCISE NAME : ELSA PALACIO PID : [id number] : 1940 Gender : Male Race : ORD : [id number] Procedure Date : Feb 02 2019 13:37:39 [...] Target Heart Rate Achieved Test Reason : CAMPSO Location :[facility] Overread By : BELIA PHIPPS M.D. Edited By : Francia Hamm Referred By : ZEESHAN MAHMOOD [facility]quired [facility] : [facility] Telephone (CDLBME) ELSA PALACIO ([id number]) 1940 M Date Time Provider Department 01/30/19 [...] Fully Assessed Reason for Visit: Reminder Call [1195] Prescriptions as of 01/30/2019 Sig: DIVALPROEX ER [...] Encounter Status:Closed by BRENDA ZAYAS on 01/30/19 [facility] Vital Signs Date Time Vital Sign Value Performing Clinician Facility 03-03-2025 04:05-0500 SaO2% (BldA) [Mass fraction] 97 % [facility] Comment on above: Order Comment: Specimen Type: BLOOD SPEC IMEN [facility] Address: [address] [place] [address] Performed By: #### 3 016-3, 69291-1, HSTNT, 42157-9, 97737-9, 52794-0 #### [facility] CLIA [id number] [address] [place] [address] [place] 03-02-2025 20:10-0500 SaO2% (BldA) [Mass fraction] 97 % [facility] Comment on above: Order Comment: Specimen Type: BLOOD SPEC IMEN [facility] Address: [address] [place] [address] Performed By: #### 3 016-3, 66680-7, HSTNT, 04928-9, 57497-8, 52821-5 #### [facility] CLIA [id number] [address] 03-02-2025 14:08-0500 SaO2% (BldA) [Mass fraction] 100 % SHAWN CHAU [facility] Comment on above: Order Comment: Specimen Type: BLOOD SPEC IMEN [facility] Address: [address] [place] [address] Performed By: #### 3 016-3, 81933-1, HSTNT, 44476-5, 93738-0, 49696-1 #### [facility] CLIA [id number] [address] [place] [id number] [facility] 12-17-2024 09:59-0400 Diastolic blood pressure 82 mm[Hg] Jeremias Damico MD Work Phone: [facility] 12-17-2024 09:59-0400 Systolic blood pressure 158 mm[Hg] Jeremias Damico MD Work Phone: [facility] 12-17-2024 09:53-0400 Body height 179 cm Jeremias Damico MD Work Phone: [facility] 12-17-2024 09:53-0400 Body mass index (BMI) [Ratio] 24.69 kg/m2 Jeremias Damico MD Work Phone: [facility] 12-17-2024 09:53-0400 Body weight 79.1 kg Jeremias Damico MD Work Phone: [facility] 12-17-2024 09:53-0400 Heart rate 61 /min Jeremias Damico MD Work Phone: [facility] 12-17-2024 09:53-0400 Respiratory rate 16 /min Jeremias Damico MD Work Phone: [facility] 12-17-2024 09:53-0400 SaO2% (BldA) [Mass fraction] 99 % Jeremias Damico MD Work Phone: [facility] 11-19-2024 11:09-0400 Body mass index (BMI) [Ratio] 25.12 kg/m2 Jeremias Damico MD Work Phone: [facility] 11-19-2024 11:09-0400 Body weight 78 kg Jeremias Damico MD Work Phone: [facility] 11-19-2024 11:09-0400 Diastolic blood pressure 98 mm[Hg] Jeremias Damico MD Work Phone: [facility] 11-19-2024 11:09-0400 Heart rate 74 /min Jeremias Damico MD Work Phone: [facility] 11-19-2024 11:09-0400 Respiratory rate 16 /min Jeremias Damico MD Work Phone: [facility] 11-19-2024 11:09-0400 Systolic blood pressure 142 mm[Hg] Jeremias Damico MD Work Phone: [facility] 10-13-2024 16:25-0400 Body mass index (BMI) [Ratio] 25.57 kg/m2 Jeremias Damico MD Work Phone: [facility] 10-13-2024 16:25-0400 Body weight 79.4 kg Jeremias Damico MD Work Phone: [facility] 10-13-2024 16:25-0400 Diastolic blood pressure 82 mm[Hg] Jeremias Damico MD Work Phone: [facility] 10-13-2024 16:25-0400 Heart rate 78 /min Jeremias Damico MD Work Phone: [facility] 10-13-2024 16:25-0400 Respiratory rate 16 /min Jeremias Damico MD Work Phone: [facility] 10-13-2024 16:25-0400 SaO2% (BldA) [Mass fraction] 99 % Jeremias Damico MD Work Phone: [facility] 10-13-2024 16:25-0400 Systolic blood pressure 140 mm[Hg] Jeremias Damico MD Work Phone: [facility] 09-04-2024 16:31-0400 Body mass index (BMI) [Ratio] 25.9 kg/m2 Jeremias Damico MD Work Phone: [facility] 09-04-2024 16:31-0400 Body weight 80.4 kg Jeremias Damico MD Work Phone: [facility] 09-04-2024 16:31-0400 Diastolic blood pressure 98 mm[Hg] Jeremias Damico MD Work Phone: [facility] 09-04-2024 16:31-0400 Heart rate 74 /min Jeremias Damico MD Work Phone: [facility] 09-04-2024 16:31-0400 Respiratory rate 16 /min Jeremias Damico MD Work Phone: [facility] 09-04-2024 16:31-0400 Systolic blood pressure 160 mm[Hg] Jeremias Damico MD Work Phone: [facility] 08-04-2024 09:17-0400 Body height 176.2 cm Snow Dobrowski SOLE LAYER HAND.GOLF CADDY Work Phone: [facility] 08-04-2024 09:17-0400 Body mass index (BMI) [Ratio] 25.93 kg/m2 Snow Dobrowski [employer]LE LAYER [employer].GOLF CADDY Work Phone: [facility] 08-04-2024 09:17-0400 Body weight 80.5 kg Snow Dobrowski SOLE LAYER [employer].GOLF CADDY Work Phone: [facility] 08-04-2024 09:17-0400 Diastolic blood pressure 77 mm[Hg] Snow Dobrowski [employer]LE LAYER [employer].GOLF CADDY Work Phone: [facility] 08-04-2024 09:17-0400 Heart rate 55 /min Snow Dobrowski [employer]LE LAYER [employer].GOLF CADDY Work Phone: [facility] 08-04-2024 09:17-0400 Respiratory rate 20 /min Snow Dobrowski SOLE LAYER HAND.GOLF CADDY Work Phone: [facility] 08-04-2024 09:17-0400 Systolic blood pressure 147 mm[Hg] Snow Dobrowski SOLE LAYER HAND.GOLF CADDY Work Phone: [facility] 01-30-2024 09:47-0400 Body mass index (BMI) [Ratio] 25.45 kg/m2 Snow Doramonwski [employer]LE LAYER HAND.GOLF CADDY Work Phone: [facility] 01-30-2024 09:47-0400 Body weight 79 kg Snow Doeverki SOLE LAYER HAND.GOLF CADDY Work Phone: [facility] 01-30-2024 09:47-0400 Diastolic blood pressure 73 mm[Hg] Snow Dobrowski SOLE LAYER HAND.GOLF CADDY Work Phone: [facility] 01-30-2024 09:47-0400 Heart rate 63 /min Snow Doeverki SOLE LAYER HAND.GOLF CADDY Work Phone: [facility] 01-30-2024 09:47-0400 SaO2% (BldA) [Mass fraction] 97 % Snow Dogunner SOLE LAYER HAND.GOLF CADDY Work Phone: [facility] 01-30-2024 09:47-0400 Systolic blood pressure 155 mm[Hg] Snow Dobrowski SOLE LAYER HAND.GOLF CADDY Work Phone: [facility] 01-24-2024 10:11-0400 Body mass index (BMI) [Ratio] 25.35 kg/m2 Zeeshan Mahmood SOLE LAYER HAND.GOLF CADDY Work Phone: [facility] 01-24-2024 10:11-0400 Body weight 78.7 kg Zeeshan Renaldo [employer]LE LAYER HAND.GOLF CADDY Work Phone: [facility] 01-24-2024 10:11-0400 Diastolic blood pressure 82 mm[Hg] Zeeshan Renaldo SOLE LAYER HAND.GOLF CADDY Work Phone: [facility] 01-24-2024 10:11-0400 Heart rate 63 /min Zeeshan Renaldo SOLE LAYER HAND.GOLF CADDY Work Phone: [facility] 01-24-2024 10:11-0400 Respiratory rate 16 /min Zeeshan Renaldo SOLE LAYER HAND.GOLF CADDY Work Phone: [facility] 01-24-2024 10:11-0400 SaO2% (BldA) [Mass fraction] 98 % Zeeshan Mahmood APRN.GOLF CADDY Work Phone: [facility] 01-24-2024 10:11-0400 Systolic blood pressure 138 mm[Hg] Zeeshan Mahmood APRN.GOLF CADDY Work Phone: [facility] 12-31-2023 15:27-0400 Body height 176.2 cm Shaq Bishop PA-C Work Phone: [facility] 12-31-2023 15:27-0400 Body mass index (BMI) [Ratio] 25.42 kg/m2 Shaq Bishop PA-C Work Phone: [facility] 12-31-2023 15:27-0400 Body temperature 97.5 [degF] Shaq Bishop PA-C Work Phone: [facility] 12-31-2023 15:27-0400 Body weight 78.93 kg Shaq Bishop PA-C Work Phone: [facility] 12-31-2023 15:27-0400 Diastolic blood pressure 80 mm[Hg] Shaq Bishop PA-C Work Phone: [facility] 12-31-2023 15:27-0400 Heart rate 70 /min Shaq Bishop PA-C Work Phone: [facility] 12-31-2023 15:27-0400 Respiratory rate 16 /min Shaq Bishop PA-C Work Phone: [facility] 12-31-2023 15:27-0400 SaO2% (BldA) [Mass fraction] 97 % Shaq Bishop PA-C Work Phone: [facility] 12-31-2023 15:27-0400 Systolic blood pressure 118 mm[Hg] Shaq Bishop PA-C Work Phone: [facility] 07-14-2023 10:49-0400 Respiratory rate 16 /min [facility] 07-14-2023 08:26-0400 Body height 177.8 cm [facility] 07-14-2023 08:26-0400 Body mass index (BMI) [Ratio] 25 kg/m2 [facility] 07-14-2023 08:26-0400 Body temperature 96.6 [degF] [facility] 07-14-2023 08:260400 Body weight 78.92 kg [facility] 07-14-2023 08:26-0400 Diastolic blood pressure 90 mm[Hg] [facility] 07-14-2023 08:26-0400 Heart rate 73 /min [facility] 07-14-2023 08:26-0400 SaO2% (BldA) [Mass fraction] 98 % [facility] 07-14-2023 08:26-0400 Systolic blood pressure 159 mm[Hg] [facility] 03-27-2023 09:06-0500 Body temperature 97.2 [degF] Susan Donis APRN.GOLF CADDY Work Phone: [facility] 03-27-2023 09:06-0500 Body weight 80.29 kg Susan Donis APRN.GOLF CADDY Work Phone: [facility] 03-27-2023 09:06-0500 Diastolic blood pressure 76 mm[Hg] Susan Donis APRN.GOLF CADDY Work Phone: [facility] 03-27-2023 09:06-0500 Heart rate 72 /min Susan Donis APRN.GOLF CADDY Work Phone: [facility] 03-27-2023 09:06-0500 Respiratory rate 16 /min Susan Donis APRN.GOLF CADDY Work Phone: [facility] 03-27-2023 09:06-0500 SaO2% (BldA) [Mass fraction] 98 % Susan Donis APRN.GOLF CADDY Work Phone: [facility] 03-27-2023 09:06-0500 Systolic blood pressure 122 mm[Hg] Susan Donis APRN.GOLF CADDY Work Phone: [facility] 02-01-2023 12:44-0400 Body weight 79.74 kg Zeeshan Renaldo SOLE LAYER HAND.GOLF CADDY Work Phone: [facility] 02-01-2023 12:44-0400 Diastolic blood pressure 80 mm[Hg] Zeeshan Renaldo SOLE LAYER HAND.GOLF CADDY Work Phone: [facility] 02-01-2023 12:44-0400 Heart rate 70 /min Zeeshan Renaldo SOLE LAYER HAND.GOLF CADDY Work Phone: [facility] 02-01-2023 12:44-0400 Respiratory rate 16 /min Zeeshan Renaldo SOLE LAYER HAND.GOLF CADDY Work Phone: [facility] 02-01-2023 12:44-0400 SaO2% (BldA) [Mass fraction] 98 % Zeeshan Renaldo SOLE LAYER HAND.GOLF CADDY Work Phone: [facility] 02-01-2023 12:44-0400 Systolic blood pressure 134 mm[Hg] Zeeshan Renaldo SOLE LAYER HAND.GOLF CADDY Work Phone: [facility] 01-22-2023 10:01-0400 Body height 177.8 cm Zeeshan Renaldo SOLE LAYER HAND.GOLF CADDY Work Phone: [facility] 01-22-2023 10:01-0400 Body temperature 97.5 [degF] Zeeshan Renaldo SOLE LAYER HAND.GOLF CADDY Work Phone: [facility] 01-22-2023 10:01-0400 Body weight 78.83 kg Zeeshan Renaldo SOLE LAYER HAND.GOLF CADDY Work Phone: [facility] 01-22-2023 10:01-0400 Diastolic blood pressure 78 mm[Hg] Zeeshan Renaldo SOLE LAYER HAND.GOLF CADDY Work Phone: [facility] 01-22-2023 10:01-0400 Heart rate 60 /min Zeeshan Renaldo SOLE LAYER HAND.GOLF CADDY Work Phone: [facility] 01-22-2023 10:01-0400 Respiratory rate 16 /min Zeeshan Renaldo SOLE LAYER HAND.GOLF CADDY Work Phone: [facility] 01-22-2023 10:01-0400 SaO2% (BldA) [Mass fraction] 99 % Zeeshan Renaldo SOLE LAYER HAND.GOLF CADDY Work Phone: [facility] 01-22-2023 10:01-0400 Systolic blood pressure 130 mm[Hg] Zeeshan Renaldo SOLE LAYER HAND.GOLF CADDY Work Phone: [facility] 01-21-2023 12:44-0400 Body height 177.8 cm Snow Dobrowski SOLE LAYER HAND.GOLF CADDY Work Phone: [facility] 01-21-2023 12:44-0400 Body weight 74.84 kg Snow Dobrowski SOLE LAYER HAND.GOLF CADDY Work Phone: [facility] 01-21-2023 12:44-0400 Diastolic blood pressure 72 mm[Hg] Snow Dobrowski SOLE LAYER HAND.GOLF CADDY Work Phone: [facility] 01-21-2023 12:44-0400 Heart rate 69 /min Snow Dobrowski SOLE LAYER HAND.GOLF CADDY Work Phone: [facility] 01-21-2023 12:44-0400 Respiratory rate 14 /min Snow Dobrowski SOLE LAYER HAND.GOLF CADDY Work Phone: [facility] 01-21-2023 12:44-0400 SaO2% (BldA) [Mass fraction] 99 % Snow Dobrowski SOLE LAYER HAND.GOLF CADDY Work Phone: [facility] 01-21-2023 12:44-0400 Systolic blood pressure 144 mm[Hg] Snow Dobrowski SOLE LAYER HAND.GOLF CADDY Work Phone: [facility] 05-01-2022 09:58-0500 Body height 177.8 cm Shaq Bishop PA-C Work Phone: [facility] 05-01-2022 09:58-0500 Body temperature 97 [degF] Shaq Bishop PA-C Work Phone: [facility] 05-01-2022 09:58-0500 Body weight 75.75 kg Shaq Bishop PA-C Work Phone: [facility] 05-01-2022 09:58-0500 Diastolic blood pressure 88 mm[Hg] Shaq Bishop PA-C Work Phone: [facility] 05-01-2022 09:58-0500 Heart rate 70 /min Shaq Bishop PA-C Work Phone: [facility] 05-01-2022 09:58-0500 Respiratory rate 12 /min Shaq Bishop PA-C Work Phone: [facility] 05-01-2022 09:58-0500 SaO2% (BldA) [Mass fraction] 98 % Shaq Bishop PA-C Work Phone: [facility] 05-01-2022 09:58-0500 Systolic blood pressure 140 mm[Hg] Shaq Bishop PA-C Work Phone: [facility] 02-16-2022 10:29-0400 Body height 177.8 cm Snow Dobrowski SOLE LAYER HAND.GOLF CADDY Work Phone: [facility] 02-16-2022 10:29-0400 Body weight 73.03 kg Snow Dobrowski SOLE LAYER HAND.GOLF CADDY Work Phone: [facility] 02-16-2022 10:29-0400 Diastolic blood pressure 73 mm[Hg] Snow Dobrowski SOLE LAYER HAND.GOLF CADDY Work Phone: [facility] 02-16-2022 10:29-0400 Heart rate 59 /min Snow Dobrowski SOLE LAYER HAND.GOLF CADDY Work Phone: [facility] 02-16-2022 10:29-0400 Systolic blood pressure 148 mm[Hg] Snow Dobrowski SOLE LAYER HAND.GOLF CADDY Work Phone: [facility] 01-30-2022 11:20-0400 Body height 177.8 cm Shaq Bishop PA-C Work Phone: [facility] 01-30-2022 11:20-0400 Body temperature 97.11 [degF] Shaq Bishop PA-C Work Phone: [facility] 01-30-2022 11:20-0400 Body weight 77.56 kg Shaq Bishop PA-C Work Phone: [facility] 01-30-2022 11:20-0400 Diastolic blood pressure 98 mm[Hg] Shaq Bishop PA-C Work Phone: [facility] 01-30-2022 11:20-0400 Heart rate 64 /min Shaq Bishop PA-C Work Phone: [facility] 01-30-2022 11:20-0400 Respiratory rate 14 /min Shaq Bishop PA-C Work Phone: [facility] 01-30-2022 11:20-0400 SaO2% (BldA) [Mass fraction] 99 % Shaq Bishop PA-C Work Phone: [facility] 01-30-2022 11:20-0400 Systolic blood pressure 154 mm[Hg] Shaq Bishop PA-C Work Phone: [facility] 01-19-2022 13:09-0400 Body height 176.5 cm Zeeshan Mahmood SOLE LAYER HAND.GOLF CADDY Work Phone: [facility] 01-19-2022 13:09-0400 Body temperature 96.6 [degF] Zeeshan Renaldo SOLE LAYER HAND.GOLF CADDY Work Phone: [facility] 01-19-2022 13:09-0400 Body weight 78.7 kg Zeeshan Renaldo SOLE LAYER HAND.GOLF CADDY Work Phone: [facility] 01-19-2022 13:09-0400 Diastolic blood pressure 84 mm[Hg] Zeeshan Renaldo SOLE LAYER HAND.GOLF CADDY Work Phone: [facility] 01-19-2022 13:09-0400 Heart rate 60 /min Zeeshan Renaldo SOLE LAYER HAND.GOLF CADDY Work Phone: [facility] 01-19-2022 13:09-0400 Respiratory rate 16 /min Zeeshan Renaldo SOLE LAYER HAND.GOLF CADDY Work Phone: [facility] 01-19-2022 13: Systolic blood pressure 134 mm[Hg] Zeeshan Mahmood APRN.GOLF CADDY Work Phone: [facility] Encounters Encounter Date Encounter Type Care Provider Facility Start: 02-24-2025 Evaluation and manag ement of inpatient SHAWN CHAU Facility:[facility] Start: 02-24-2025 [facility] Start: 02-24-2025 ambulatory Shawn Chau Facility :[facility] Start: 02-24-2025 End: 02-24-2025 Evaluation and management of inpatient Anibal Bellorohitnaresh Facility:[facility] Start: 02-16-2025 End: 02-16-2025 [facility] Facility:[facility] Start: 12-22-2024 End: 12-22-2024 Patient encounter procedure Shaq Bishop PA-C Work Phone: Urology Comment on above: 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); Screening for genitourinary condition Start: 12-22-2024 End: 12-22-2024 [facility] Facility:[facility] Start: 12-17-2024 End: 12-17-2024 [facility] Facility:[facility] Start: 12-17-2024 End: 12-17-2024 Patient encounter procedure Jeremias Damico MD Work Phone: [facility] [place] Comment on above: Acquired hypothyroid ism (Primary Dx); Primary hypertension; Encounter for Medicare annual wellness exam; Episodic cluster headache, not intractable; Benign prostatic hyperplasia without lower urinary tract symptoms Start: 12-14-2024 End: 12-14-2024 [facility] Facility:[facility] Start: 11-19-2024 End: 11-19-2024 Office outpatient visit 25 minutes Jeremias Damico MD Work Phone: [facility] Comment on above: Acquired hypothyroid ism (Primary Dx); Primary hypertension Start: 11-19-2024 End: 11-19-2024 [facility] Facility:[facility] Start: 10-13-2024 End: 10-13-2024 Office outpatient visit 15 minutes Jeremias Damico MD Work Phone: [facility] Comment on above: Primary hypertension (Primary Dx) Start: 10-13-2024 End: 10-13-2024 ambulatory [facility] Facility:[facility] Start: 09-04-2024 End: 09-04-2024 Office outpatient visit 25 minutes Jeremias Damico MD Work Phone: [facility] Comment on above: Primary hypertension (Primary Dx) Start: 09-04-2024 End: 09-04-2024 ambulatory [facility] Facility:[facility] Start: 08-27-2024 End: 09-01-2024 ambulatory Zeeshan Mahmood APRN.GOLF CADDY Work Phone: [facility] Comment on above: Blood pressure Start: 08-18-2024 End: 08-18-2024 ambulatory Sarmad Newton RN Work Phone: [employer] Comment on above: Population Health Na vigation Outreach ([facility] ) Start: 08-04-2024 End: 08-04-2024 [facility] Facility:[facility] Start: 08-04-2024 End: 08-04-2024 Office outpatient visit 15 minutes Snow Brooks APRN.GOLF CADDY Work Phone: Neurology Comment on above: Episodic cluster hea dache, not intractable (Primary Dx) Start: 01-30-2024 End: 01-30-2024 Patient encounter procedure Snow Brooks APRN.GOLF CADDY Work Phone: Neurology Comment on above: Episodic cluster hea dache, not intractable (Primary Dx) Start: 01-24-2024 End: 01-24-2024 Patient encounter procedure Zeeshan Mahmood APRN.GOLF CADDY Work Phone: [facility] [place] Comment on above: Medicare annual well ness visit, subsequent (Primary Dx); Acquired hypothyroidism; Episodic cluster headache, not intractable; Encounter for immunization; Screening for depression; Encounter for screening examination for other mental health and behavioral disorders Start: 01-21-2024 End: 01-21-2024 Nursing evaluation of patient and report Mi Nurse Work Phone: [facility] Comment on above: Episodic cluster hea dache, not intractable Start: 01-09-2024 End: 01-14-2024 Refill Shaq Bishop PA-C Work Phone: Urology Comment on above: Refill Request Start: 01-01-2024 End: 01-03-2024 Patient encounter procedure Jeremias Damico MD Work Phone: [facility] Start: 01-01-2024 End: 01-03-2024 Telephone encounter Jeremias Damico MD Work Phone: [facility] Comment on above: Orders Start: 12-31-2023 End: 12-31-2023 Patient encounter procedure Shaq Bishop PA-C Work Phone: Urology Comment on above: 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) Start: 12-06-2023 End: 12-09-2023 Telephone encounter Snow Brooks APRN.GOLF CADDY Work Phone: Neurology Comment on above: Orders Start: 09-02-2023 Refill Snow zafar APRN.GOLF CADDY Work Phone: Neurology Comment on above: Refill Request Start: 07-14-2023 End: 07-14-2023 Emergency department patient visit [facility] Work Phone: Start: 03-27-2023 End: 03-27-2023 Patient encounter procedure Susan Donis APRN.GOLF CADDY Work Phone: [facility] Comment on above: URI, acute (Primary Dx) Start: 02-18-2023 ambulatory Zeeshan MOE RN.GOLF CADDY Work Phone: [facility] Comment on above: This is part two Start: 02-01-2023 End: 02-01-2023 Office outpatient visit 15 minutes Zeeshan Mahmood APRN.GOLF CADDY Work Phone: [facility] [place] Comment on above: Difficulty sleeping (Primary Dx) Start: 01-24-2023 End: 01-24-2023 Nursing evaluation of patient and report Mi Nurse Work Phone: [facility] Comment on above: Episodic cluster hea dache, not intractable (Primary Dx) Start: 01-22-2023 End: 01-22-2023 Patient encounter procedure Zeeshan Renaldo SOLE LAYER HAND.GOLF CADDY Work Phone: [facility] Comment on above: Medicare annual well ness visit, subsequent (Primary Dx); Encounter for immunization; Acquired hypothyroidism; Episodic cluster headache, not intractable; BPH with obstruction/lower urinary tract symptoms Start: 01-21-2023 End: 01-21-2023 Patient encounter procedure Snow Brooks SOLE LAYER HAND.GOLF CADDY Work Phone: Neurology Comment on above: Episodic cluster hea dache, not intractable (Primary Dx) Start: 12-27-2022 Telephone encounter Snow Buckner APRN.GOLF CADDY Work Phone: Neurology Comment on above: Orders (Labs) Start: 06-06-2022 ambulatory Snow Nimco zafar SOLE LAYER HAND.GOLF CADDY Work Phone: Neurology Comment on above: Increase [...] Request Start: 02-16-2022 ambulatory Snow Nimco zafar SOLE LAYER HAND.GOLF CADDY Work Phone: Neurology Comment on above: EKG Start: 02-16-2022 End: 02-16-2022 Patient encounter procedure Snow Brooks SOLE LAYER HAND.GOLF CADDY Work Phone: Neurology Comment on above: Episodic cluster hea dache, not intractable Start: 02-15-2022 End: 02-15-2022 Nursing evaluation of patient and report Mi Nurse Work Phone: [facility] [place] Comment on above: Episodic cluster hea dache, not intractable Start: 01-30-2022 End: 01-30-2022 Patient encounter procedure Shaq Bishop PA-C Work Phone: Urology Comment on above: Post-void dribbling (Primary Dx); BPH with obstruction/lower urinary tract symptoms Start: 01-19-2022 End: 01-19-2022 Patient encounter procedure Zeeshan Mahmood APRN.GOLF CADDY Work Phone: [facility] Comment on above: Medicare annual well ness visit, subsequent (Primary Dx); Need for influenza vaccination; Immunization due; Episodic cluster headache, not intractable; Acquired hypothyroidism; BPH with obstruction/lower urinary tract symptoms Start: 01-04-2022 Patient encounter status Jeremias Damico MD Work Phone: [address] [place] [address] Start: 01-04-2022 Telephone encounter Jeremias wagoner MD Work Phone: [address] [place] [address] Comment on above: Orders Orders (Lab work) Start: 10-09-2021 Refill Jeremias alex MD Work Phone: [facility] Comment on above: Refill Request Start: 08-29-2021 ambulatory Snow zafar APRN.GOLF CADDY Work Phone: Neurology Comment on above: Verapamil 80mg Procedures Date Procedure Procedure Detail Performing Clinician Start: 03-01-2025 Antibody screen SHAWN CHAU Comment on above: Order Comment: Speci men Type: BLOOD SPECIMEN Ordering Facility: [facility] Address: [address] [place] [address] Performed By: #### 3 016-3, 38165-6, HSTNT, 11642-4, 26225-9, 36350-5 #### [facility] CLIA [id number] [address] [place] Start: 02-25-2025 Antibody screen SHAWN CHAU Comment on above: Order Comment: Speci men Type: BLOOD SPECIMEN Ordering Facility: [facility] Address: [facility] [place] [address] Performed By: #### 3 016-3, 69302-9, HSTNT, 66980-4, 35056-9, 51382-6 #### [facility] CLIA [id number] [address] [place] Start: 12-22-2024 Urnls dip stick/tabl et rgnt auto w/o microscopy Shaq Bishop PA-C Work Phone: Start: 01-24-2024 PFIZER-BIONTECH COVI D-19 VACCINE AGE 12+ YR (COMIRNATY) Zeeshan Mahmood APRN.GOLF CADDY Work Phone: Start: 01-24-2024 Adult depression scr eening assessment Zeeshan Mahmood APRN.GOLF CADDY Work Phone: Start: 01-21-2024 Ecg routine ecg w/le ast 12 lds i&r only [facility] Provider Start: 12-31-2023 Urnls dip stick/tabl et rgnt auto w/o microscopy Shaq Bishop PA-C Work Phone: Start: 01-24-2023 Ecg routine ecg w/le ast 12 lds i&r only [facility] Provider Start: 01-22-2023 PFIZER-BIONTECH COVI D-19 VACCINE (2022- SEASON) AGE 12+ YR Zeeshan Mahmood APRN.GOLF CADDY Work Phone: Start: 01-22-2023 INFLUENZA VACCINE, P RSV FREE, AGE 65+ YR, HIGH DOSE, QUADRIVALENT (FLUZONE HIGH-DOSE) Zeeshan Mahmood APRN.GOLF CADDY Work Phone: Start: 05-01-2022 Urnls dip stick/tabl et rgnt auto w/o microscopy Shaq Bishop PA-C Work Phone: Start: 01-30-2022 Urnls dip stick/tabl et rgnt auto w/o microscopy Shaq Bishop PA-C Work Phone: Start: 01-19-2022 INFLUENZA SEASONAL QUADRIVALENT HIGH DOSE AGE 65+ Zeeshan Mahmood SOLE LAYER HAND.GOLF CADDY Work Phone: Start: 01-19-2022 PFIZER[employer]IONT[employer] COVI D-19 BIVALENT BOOSTER VACCINE, AGE 12+ YR Zeeshan Mahmood SOLE LAYER HAND.RUTHIE Work Phone: Plan of Treatment Date Care Activity Detail Author Start: 12-15-2027 Diabetes Screening Diabetes Screenin g [facility] Start: 07-31-2027 Urine microalbumin profile [facility] Start: 01-19-2027 Diabetes Screening Diabetes Screenin g [facility] Start: 01-15-2026 Diabetes Screening Diabetes Screenin g [facility] Start: 01-04-2026 End: 01-04-2026 Patient encounter procedure 01/04/2026 9:00 AM EDT Office Visit Urology [address] [place], [place] [id number] Shaq Bishop PA-C [address] [place] [address] yearly Urology Comment on above: yearly Start: 02-16-2025 End: 02-16-2025 Patient encounter procedure 02/16/2025 10:00 AM EDT Office Visit [facility] [address] [place], [place] [id number] Jeremias Damico MD [address] [place], [place] [id number] 2 month f/u--Flu Shot/Covid Shot [facility] Comment on above: 2 month f/u--Flu Anna t/Covid Shot Start: 01-29-2025 End: 01-29-2025 Patient encounter procedure 01/29/2025 8:40 AM EDT Office Visit [facility] [address] [place], [place] [id number] Zeeshan Mahmood APRN.GOLF CADDY [address] [place], [place] [id number] Medicare wellness [facility] Comment on above: Medicare wellness Start: 01-23-2025 Anxiety Screening Anxiety Screening [facility] Start: 01-23-2025 Depression Screening Depression Scre ening [facility] Start: 01-09-2025 DIABETES SCREEN DIABETES SCREEN [facility] Start: 12-21-2024 End: 03-22-2025 CBC panel - Blood by Automated count COMPLETE BLOOD COUNT Lab Routine Primary hypertension Acquired hypothyroidism Expected: 12/21/2024 (Approximate), Expires: 03/22/2025 [facility] Comment on above: Expected: 12/21/2024 (Approximate), Expires: 03/22/2025 Start: 12-21-2024 End: 03-22-2025 Comprehensive metabolic 2000 panel - Serum or Plasma COMPREHENSIVE METABOLIC PANEL Lab Routine Primary hypertension Expected: 12/21/2024 (Approximate), Expires: 03/22/2025 [facility] Comment on above: Expected: 12/21/2024 (Approximate), Expires: 03/22/2025 Start: 12-21-2024 Influenza vaccination Influenza Vacc ine (#1) [facility] Start: 12-21-2024 End: 03-22-2025 Lipid 1996 panel - Serum or Plasma LIPID PANEL, FASTING Lab Routine Primary hypertension Expected: 12/21/2024 (Approximate), Expires: 03/22/2025 [facility] Comment on above: Expected: 12/21/2024 (Approximate), Expires: 03/22/2025 Start: 12-21-2024 End: 03-22-2025 Thyrotropin [Units/volume] in Serum or Plasma THYROID STIMULATING HORMONE Lab Routine Acquired hypothyroidism Expected: 12/21/2024 (Approximate), Expires: 03/22/2025 [facility] Work Phone: Comment on above: Expected: 12/21/2024 (Approximate), Expires: 03/22/2025 Start: 12-17-2024 End: 12-17-2024 Patient encounter procedure 12/17/2024 10:00 AM EDT Office Visit [facility] [address] [place] [address] Jeremias Damico MD [address] [place] [address] medicare wellness [facility] Comment on above: medicare wellness Start: 11-19-2024 End: 11-19-2024 Patient encounter procedure 11/19/2024 11:20 AM EDT Office Visit [facility] [place] [address] [facility] [place] [address] Jeremias Damico MD [address] [place] [address] 1 month f/u BP [facility] [place] Comment on above: 1 month f/u BP Start: 10-13-2024 End: 10-13-2024 Patient encounter procedure 10/13/2024 4:40 PM EDT [facility] [place] [address] [facility] [place] [address] Jeremias Damico MD [address] [place] [address] 1 month follow up [facility] [place] Comment on above: 1 month follow up Start: 09-04-2024 End: 09-04-2024 Patient encounter procedure 09/04/2024 4:40 PM EDT Office [facility] [place] [address] [facility] [place] [address] Jeremias Damico MD [address] [place] [address] 6 month f/u Bp check [facility] Comment on above: 6 month f/u Bp check Start: 07-24-2024 Covid-19 Vaccine ( season) Covid-19 Vaccine ( season) [facility] Start: 04-22-2024 Advance Directive Discussion Advance Directive Discussion [facility] Start: 04-22-2024 Medicare Advantage Annual Wellness Visit Medicare Advantage Annual Wellness Visit [facility] Start: 02-28-2024 DIABETES SCREEN DIABETES SCREEN [facility] Start: 01-30-2024 End: 01-30-2024 Patient encounter procedure 01/30/2024 10:00 AM EDT Office Visit Neurology [address] [place] [address] Snow Brooks, SOLE LAYER HAND.GOLF CADDY [address] [place] [address] headache Neurology Comment on above: headache Start: 01-24-2024 End: 01-24-2024 Patient encounter procedure [facility] [place] Comment on above: Medicare Wellness Start: 01-21-2024 End: 01-21-2024 Nursing evaluation of patient and report 01/21/2024 8:45 AM EDT Nurse [facility] [place] [address] [place] [address] Nurse, [place] [address] [place] [address] ekg [facility] [place] Comment on above: ekg Start: 01-20-2024 End: 01-20-2024 ambulatory 01/20/2024 7:00 AM EDT [facility] [address] [place] [address] [facility] Start: 01-01-2024 End: 04-01-2024 CBC W Auto Differential panel - Blood COMPLETE BLOOD COUNT AND DIFFERENTIAL Lab Routine Medicare annual wellness visit, subsequent Expected: 01/01/2024, Expires: 04/01/2024 [facility] Comment on above: Expected: 01/01/2024 , Expires: 04/01/2024 Start: 01-01-2024 End: 04-01-2024 Comprehensive metabolic 2000 panel - Serum or Plasma COMPREHENSIVE METABOLIC PANEL Lab Routine Medicare annual wellness visit, subsequent Expected: 01/01/2024, Expires: 04/01/2024 [facility] Comment on above: Expected: 01/01/2024 , Expires: 04/01/2024 Start: 01-01-2024 End: 04-01-2024 Lipid 1996 panel - Serum or Plasma LIPID PANEL BASIC Lab Routine Medicare annual wellness visit, subsequent Expected: 01/01/2024, Expires: 04/01/2024 [facility] Work Phone: Comment on above: Expected: 01/01/2024 , Expires: 04/01/2024 Start: 01-01-2024 End: 04-01-2024 Thyrotropin [Units/volume] in Serum or Plasma THYROID STIMULATING HORMONE Lab Routine Acquired hypothyroidism Expected: 01/01/2024, Expires: 04/01/2024 [facility] Comment on above: Expected: 01/01/2024 , Expires: 04/01/2024 Start: 12-22-2023 Covid-19 Vaccine () Covid-19 Vaccine () [facility] Start: 12-22-2023 Covid-19 Vaccine () Covid-19 Vaccine () [facility] Start: 12-22-2023 Covid-19 Vaccine () Covid-19 Vaccine () [facility] Start: 12-22-2023 Influenza vaccination Influenza Vacc ine (#1) [facility] Start: 07-14-2023 [facility] Start: 05-25-2023 Covid-19 Vaccine (6 - Moderna series) Covid-19 Vaccine (6 - Moderna series) [facility] Start: 05-25-2023 Covid-19 Vaccine () Covid-19 Vaccine () [facility] Start: 04-22-2023 Advance Directive Discussion Advance Directive Discussion [facility] Start: 04-22-2023 Behavioral Health Screening Behavioral Health Screening [facility] Start: 03-27-2023 End: 04-10-2023 COVID & INFLUENZA A/B & RSV NAAT, ROUTINE [facility] Work Phone: Comment on above: Expected: 03/27/2023 , Expires: 04/10/2023 Start: 12-21-2022 Influenza vaccination C [facility] Start: 05-21-2022 COVID-19 VACCINE (6 - Moderna series) COVID-19 VACCINE (6 - Moderna series) [facility] Start: 04-22-2022 ADVANCE DIRECTIVE DISCUSSION ADVANCE DIRECTIVE DISCUSSION [facility] Start: 04-22-2022 DEPRESSION ASSESSMENT DEPRESSION ASS ESSMENT [facility] Start: 03-21-2022 End: 05-21-2022 Thyrotropin [Units/volume] in Serum or Plasma TSH BLD Lab Routine Acquired hypothyroidism Expected: 03/21/2022 (Approximate), Expires: 05/21/2022 [facility] Work Phone: Comment on above: Expected: 03/21/2022 (Approximate), Expires: 05/21/2022 Start: 01-04-2022 End: 03-06-2022 CBC W Auto Differential panel - Blood CBC + DIFF Lab Routine Wellness examination Expected: 01/04/2022, Expires: 03/06/2022 [facility] Work Phone: Comment on above: Expected: 01/04/2022 , Expires: 03/06/2022 Start: 01-04-2022 End: 03-06-2022 Comprehensive metabolic 2000 panel - Serum or Plasma COMP METABOLIC PANEL Lab Routine Wellness examination Expected: 01/04/2022, Expires: 03/06/2022 [facility] Work Phone: Comment on above: Expected: 01/04/2022 , Expires: 03/06/2022 Start: 01-04-2022 End: 03-06-2022 Lipid 1996 panel - Serum or Plasma LIPID PANEL BASIC Lab Routine Wellness examination Expected: 01/04/2022, Expires: 03/06/2022 [facility] Work Phone: Comment on above: Expected: 01/04/2022 , Expires: 03/06/2022 Start: 01-04-2022 End: 03-06-2022 Thyrotropin [Units/volume] in Serum or Plasma TSH BLD Lab Routine Other specified hypothyroidism Expected: 01/04/2022, Expires: 03/06/2022 [facility] Work Phone: Comment on above: Expected: 01/04/2022 , Expires: 03/06/2022 Start: 12-21-2021 Influenza vaccination INFLUENZA (#1) [facility] Start: 06-24-2021 COVID-19 VACCINE (4 - Booster for Moderna series) COVID-19 VACCINE (4 - Booster for Moderna series) [facility] Start: 04-22-2021 ADVANCE DIRECTIVE DISCUSSION ADVANCE DIRECTIVE DISCUSSION [facility] Start: 02-08-2015 RSV Vaccine (1 - 1-d ose 75+ series) RSV Vaccine (1 - 1-dose 75+ series) [facility] Start: 2000 RSV Vaccine (1 - 1-d ose 60+ series) RSV Vaccine (1 - 1-dose 60+ series) [facility] Start: [birth year]08-1958 Anxiety Screening Anxiety Screening [facility] Start: 02-08-1958 Depression Screening Depression Scre ening [facility] End: 01-08-2023 ECG COMPLETE ECG COMPLETE ECG Routine Episodic cluster headache, not intractable 1 Occurrences starting 01/08/2022 until 01/08/2023 [facility] Work Phone: Comment on above: 1 Occurrences starti ng 01/08/2022 until 01/08/2023 End: 01-22-2024 ECG COMPLETE ECG COMPLETE ECG Routine Episodic cluster headache, not intractable 1 Occurrences starting 01/21/2023 until 01/22/2024 [facility] Work Phone: Comment on above: 1 Occurrences starti ng 01/21/2023 until 01/22/2024 End: 12-08-2024 ECG COMPLETE ECG COMPLETE ECG Routine Episodic cluster headache, not intractable 1 Occurrences starting 12/09/2023 until 12/08/2024 [facility] Work Phone: Comment on above: 1 Occurrences starti ng 12/09/2023 until 12/08/2024 ECG COMPLETE ECG COMPLETE ECG 01/21/2024 9:00 AM EDT [facility] Patient Education ED Epistaxis (Adult) [facility] Work Phone: Patient referral [facility] Work Phone: POST VOID RESIDUAL POST VOID RES IDUAL Procedures 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 Ordered: 01/30/2022 [facility] Work Phone: Comment on above: Ordered: 01/30/2022 POST VOID RESIDUAL POST VOID RES IDUAL Procedures 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 Ordered: 05/01/2022 [facility] Work Phone: Comment on above: Ordered: 05/01/2022 POST VOID RESIDUAL POST VOID RES IDUAL Procedures Routine BPH without obstruction/lower urinary tract symptoms Ordered: 12/31/2023 [facility] Work Phone: Comment on above: Ordered: 12/31/2023 POST VOID RESIDUAL POST VOID RES IDUAL Procedures Routine BPH without obstruction/lower urinary tract symptoms Screening for genitourinary condition Ordered: 12/22/2024 [facility] Work Phone: Comment on above: Ordered: 12/22/2024 [facility] Immunizations Immunization Date Immunization Notes Care Provider [facility] 01-24-2024 COVID-19 vaccine, ag e 12+ yr (PFIZER-BIONTECH COMIRNATY) Zeeshan Mahmood APRN.GOLF CADDY Work Phone: [facility] 01-24-2024 influenza, high dose seasonal, preservative-free Zeeshan Mahmood APRN.GOLF CADDY Work Phone: [facility] 01-24-2024 influenza virus vacc ine, unspecified formulation Jeremias Damico MD Work Phone: [facility] 01-22-2023 COVID-19 vaccine, ag e 12+ yr, season (PFIZER-BIONTECH) Zeeshan Mahmood APRN.GOLF CADDY Work Phone: [facility] 01-22-2023 influenza (HD-IIV4) vaccine, age 65+ yr, high dose, quadrivalent, PF (FLUZONE HIGH-DOSE) Zeeshan Mahmood SOLE LAYER HAND.GOLF CADDY Work Phone: [facility] 01-22-2023 influenza virus vacc ine, unspecified formulation Snow Brooks SOLE LAYER HAND.GOLF CADDY Work Phone: [facility] 01-19-2022 COVID-19 booster vaccine, age 12+ yr, bivalent (PFIZER-BIONTECH) Zeeshan Mahmood APRN.GOLF CADDY Work Phone: [facility] 01-19-2022 influenza, high-dose , quadrivalent vaccine (FLUZONE HIGH DOSE QUADRIVALENT) Zeeshan Mahmood SOLE LAYER HAND.GOLF CADDY Work Phone: [facility] 01-19-2022 influenza virus vacc ine, unspecified formulation Snow Brooks SOLE LAYER HAND.GOLF CADDY Work Phone: [facility] 02-24-2021 COVID-19 vaccine, fu ll dose (MODERNA) Snow Brooks SOLE LAYER HAND.[employer]OL[employer] CADDY Work Phone: [facility] 01-27-2021 influenza, high-dose , quadrivalent vaccine (FLUZONE HIGH DOSE QUADRIVALENT) Snow Brooks SOLE LAYER HAND.GOL[employer] CADDY Work Phone: [facility] 06-16-2020 COVID-19 vaccine, fu ll dose (MODERNA) Snow Brooks SOLE LAYER HAND.GOLF CADDY Work Phone: [facility] 05-19-2020 COVID-19 vaccine, fu ll dose (MODERNA) Snow Brooks SOLE LAYER HAND.GOL[employer] CADDY Work Phone: [facility] 04-02-2020 zoster vaccine recombinant Snow Doeverki SOLE LAYER HAND.[employer]OL[employer]ADDY Work Phone: [facility] 01-31-2020 influenza, high dose seasonal, preservative-free Snow Dobrowski SOLE LAYER HAND.[employer] Work Phone: [facility] 01-31-2020 zoster vaccine recombinant Snow Dobrowski SOLE LAYER HAND.[employer] Work Phone: [facility] 01-19-2019 influenza, high dose seasonal, preservative-free Snow Dobrowski SOLE LAYER HAND.[employer] Work Phone: [facility] 01-15-2018 influenza, high dose seasonal, preservative-free Snow Dobrowski SOLE LAYER HAND.[employer] Work Phone: [facility] 07-30-2017 tetanus toxoid, redu regina diphtheria toxoid, and acellular pertussis vaccine, adsorbed Snow Yukiki SOLE LAYER HAND.GOLF CADDY Work Phone: [facility] Work Phone: 02-01-2017 influenza, high dose seasonal, preservative-free Snow Dobrowski SOLE LAYER HAND.[facility] Work Phone: [facility] 02-14-2016 influenza, high dose seasonal, preservative-free Snow Dobrowski SOLE LAYER HAND.[facility] Work Phone: [facility] 04-27-2015 influenza, high dose seasonal, preservative-free Snow Dobrowski SOLE LAYER HAND.[facility] Work Phone: [facility] 04-27-2015 pneumococcal conjuga te vaccine, 13 valent Snow Dobrowski SOLE LAYER HAND.[facility] Work Phone: [facility] 04-27-2015 tetanus toxoid, redu regina diphtheria toxoid, and acellular pertussis vaccine, adsorbed Snow Dobrowski SOLE LAYER HAND.[facility] Work Phone: [facility] 03-15-2014 influenza, high dose seasonal, preservative-free Snow Dobrowski SOLE LAYER HAND.[facility] Work Phone: [facility] Work Phone: 03-11-2013 influenza virus vacc ine, unspecified formulation Snow Dobrowski SOLE LAYER HAND.[facility] Work Phone: [facility] Work Phone: 03-10-2012 influenza virus vacc ine, unspecified formulation Snow Dobrowski SOLE LAYER HAND.[facility] Work Phone: [facility] Work Phone: 04-11-2011 influenza virus vacc ine, unspecified formulation Snow Dobrowski SOLE LAYER HAND.[employer] Work Phone: [facility] Work Phone: 04-11-2011 zoster vaccine, live Snow D obrowski SOLE LAYER HAND.[facility] Work Phone: [facility] Work Phone: 03-11-2009 influenza virus vacc ine, unspecified formulation Snow Dobrowski SOLE LAYER HAND.[facility] Work Phone: [facility] Work Phone: 03-02-2008 influenza virus vacc ine, unspecified formulation Snow Brooks APRN.GOLF CADDY Work Phone: [facility] Work Phone: 03-18-2007 influenza virus vacc ine, unspecified formulation Snow Brooks APRN.GOLF CADDY Work Phone: [facility] Work Phone: 01-17-2006 pneumococcal polysaccharide vaccine, 23 valent Snow Brooks APRN.GOLF CADDY Work Phone: [facility] Work Phone: 02-03-2005 tetanus and diphther ia toxoids, adsorbed, preservative free, for adult use (2 Lf of tetanus toxoid and 2 Lf of diphtheria toxoid) Snow Brooks APRN.GOLF CADDY Work Phone: [facility] Work Phone: Payers Date Payer Category Payer Self-pay [id number] 2009 Medicare AETNA MEDICARE A ETNA MEDICARE PPO [id number] 2009-Present [phone] [address] [place] [address] PPO [id number] 2009 Medicare AETNA MEDICARE A ETNA MEDICARE PPO [id number] 2009-Present [phone] [address] [place] [address] PPO [id number] 2009 Medicare (Managed Care) [place] [id number] 2009 Private Health Insurance 101 [id number] Unknown [id number] Unknown [id number] Unknown [id number] Unknown [id number] Social History Date Type Detail Facility Start: 01-21-2019 End: 01-19-2022 Tobacco smoking status NHIS Ex-smoker [facility] History of tobacco use Cigarette Smoker C [facility] Start: 01-21-2019 End: 01-19-2022 Tobacco use and exposure Smokeless tobacco non-user [facility] Start: 07-03-2021 End: 03-27-2023 Alcohol intake Current non-drinker of alcohol (finding) [facility] Start: 11-06-2019 End: 01-18-2022 History SDOH Alcohol Frequency 1 [facility] Start: 02-20-2020 History SDOH Alcohol Std Drinks 98 [facility] Start: 02-20-2020 End: 01-18-2022 History SDOH Social Connections Phone 2 [facility] Start: 11-06-2019 End: 02-20-2020 History SDOH Social Connections [employer] 3 [facility] Start: 02-20-2020 History SDOH Physical Activity DPW 7 [facility] Start: 11-12-2019 History SDOH Financial 5 [facility] Start: 11-06-2019 Education 20 [facility] Start: 01-21-2019 End: 01-19-2022 Tobacco Comment for 2 years when patient was 20yrs old [facility] Start: 1940 Sex Assigned At Male [facility] History of tobacco use Current smoker [facility] Start: 12-25-2021 End: 02-16-2022 Exposure to SARS-CoV-2 (event) Not sure [facility] Start: 02-20-2020 End: 01-15-2023 History of Social function [facility] Start: 02-20-2020 End: 01-15-2023 Social connection and isolation panel [facility] Start: 03-23-2012 Frequency of Social Gatherings with Friends and Family Not on file [facility] Do you feel stress - tense, restless, nervous, or anxious, or unable to sleep at night because your mind is troubled all the time - these days [OSQ] Not at all [facility] (I/We) worried augustin er (my/our) food would run out before (I/we) got money to buy more. Never true [facility] Work Phone: In the past 12 month s, was there a time when you were not able to pay the mortgage or rent on time? No [facility] Start: 11-17-2018 Gender identity Identifies as male gender (finding) [facility] Start: 11-17-2018 Sexual orientation Heterosexual (finding) [facility] Do you belong to any clubs or organizations such as episcopalian groups, unions, fraternal or athletic groups, or school groups? Yes [facility] Are you now , , , , never or living with a partner? [facility] How often to you hav e a drink containing alcohol? Never [facility] Start: 07-14-2023 Tobacco smoking status NHIS Unknown if ever smoked [facility] Start: 11-04-2019 None [facility] Start: 11-04-2019 Spouse/ Significant Other [facility] Start: 12-31-2023 End: 12-22-2024 Alcoholic beverage intake [facility] Status Date Assessment Result Facility 03-15-2014 Are you deaf, or do you have serious difficulty hearing No 03/15/2014 1:56 PM MEERA VELASQUEZ [facility] 03-15-2014 Are you blind, or do you have serious difficulty seeing, even when wearing glasses No 03/15/2014 1:56 PM MEERA VELASQUEZ [facility] 03-15-2014 Do you have serious difficulty walking or climbing stairs No 03/15/2014 1:56 PM MEERA VELASQUEZ No [facility] 03-15-2014 Do you have difficul ty dressing or bathing No 03/15/2014 1:56 PM MEERA VELASQUEZ No [facility] 03-15-2014 Because of a physica l, mental, or emotional condition, do you have difficulty doing errands alone such as visiting a physician's office or shopping No 03/15/2014 1:56 PM MEERA VELASQUEZ [facility] Mental Status Date Assessment Result Facility 03-15-2014 Because of a physica l, mental, or emotional condition, do you have serious difficulty concentrating, remembering, or making decisions No 03/15/2014 1:56 PM MEERA VELASQUEZ [facility] Clinical Notes 05-10-2005 to 03-03-2025 Shaq Bishop PA-C - 12/22/2024 2:25 PM Leilani Ma LPN - 12/22/2024 1:46 PM Jeremias Mccoy MD - 12/17/2024 10:00 AM Jeremias Mccoy MD - 11/19/2024 11:20 AM EDT Note Date & Type Note Facility 03-03-2025 Note HNO ID: [id number] Author: ALESSANDRA SANDY RN Service: Care Management Author Type: Registered Nurse Type: Care Mgt Progress Note Filed: 03/03/2025 15:14 Note Text: CARE MANAGEMENT PROGRESS NOTE SERVICE DATE: 03/03/2025 SERVICE TIME: 1510 LOS: 6 days Needs Prior to Discharge: To Be Determined, Home Care Order, Facility or Agency Choices [place] of Choice Given: Yes Level of Care Discussed: Home Care Financial Disclosure Provided: Yes Financial Disclosure Comments: CC Affiliation Provider List: Home Care Provider list within the patient's requested geographic area shared with the patient/family: Yes of zip code: [address] Quality and resource use metrics shared with [...] 03, 2025 TIME: 3:10 PM [facility] 03-03-2025 Note HNO ID: [id number] Author: ?, ?, ? Service: Pharmacy Author Type: Marine Diver Type: Plan of Care Filed: 03/03/2025 12:31 Note Text: PHARMACY MEDICATION REVIEW Patient Name: Elsa Palacio : 1940 The following medications were updated within the [facility] medication list: Medications ADDED to [facility] medication list Medications CHANGED on [facility] medication list Medications REMOVED from [facility] medication list Additional comments: Verified medication information with e-scripts/dispense report and chart review. Confirmed medications with family. Family stated medication list is current. Family stated patient not taking any additional medications or supplements. Required follow up actions for nursing: None The below information represents the best possible medication history: Yes Medication history completed by: Marine Diver: Pat Quick (Associate Professor Of Theology) Source of history: Family: Reliability of source: Appears reliable, clearly identified: Medication name, Medication dose, Medication route, and Medication frequency and Spoke with spouse in room, Pharmacy records: e-scripts/dispense report, and [facility] records Medication nonadherence identified: No barriers noted Reconciliation completed: No, pharmacist not yet reviewed Patient interested in Bedside Delivery Services or using OP Pharmacy at discharge? Unable to assess Preferred outpatient pharmacy: [facility] [address] - [address] [facility] [phone] [address] [employer] [address] [place] [address] - [address] [facility] - [phone] [facility] - [place] [address] - [facility] - [phone] Portal to Registered [facility] Sites Allergies: Cheese (See Vegetab* Comment:cluster [...] once daily. Facility-Administered Medications: None Pat Quick (Associate Professor Of Theology)[id number] 03/03/2025 [facility] 03-03-2025 Note HNO ID: [id number] Author: AMY SANCHEZ MD Service: Critical Care [...] Drain Duration Indwelling Urinary Catheter 03/02/25 0745 [facility] Temperature Monitoring 16 Fr 1 day Chest Tube 03/02/25 1159 [facility] Mediastinal 32 Fr Tube #1 <1 [...] able SIGNATURE: Amy Sanchez MD [facility]:[phone] DATE of SERVICE: 03/03/2025 [facility] 03-03-2025 Note HNO ID: [id number] Author: BECCA, DALILA, PA-C Service: Cardiovascular Surgery Author Type: Physician Charter Driver Type: Progress Notes Filed: 03/03/2025 15:34 Note [...] BPH, and cluster headaches who presented to [place] ED with exertional chest pain and shortness of breath. 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 Right internal jugular central line with tip in the mid to distal superior vena cava. Left-sided chest tube paralleling left hemidiaphragm. Intact median sternotomy wires and sternal plate. Overlying campus monitor leads. Lungs and pleura: No pneumothorax. [...] -- (more content not included)... [facility] 03-02-2025 Note HNO ID: [id number] Author: DANISH BRUMFIELD APRN.TREE DRILLER Service: Anesthesiology Author Type: Nurse Fulling Mill Operator Type: Anesthesia Procedure Notes Filed: 03/02/2025 08:35 Note Text: ANESTHESIOLOGY PROCEDURE NOTE Airway General Information Procedure Start Time/Medication Administration: 03/02/2025 7:28 AM Procedure End Time: 03/02/2025 7:28 AM Patient location during procedure: OR Patient identity confirmed: arm band and patient Staffing Anesthesiologist: Brooks Montejo MD TREE DRILLER: Danish Brumfield APRN.TREE DRILLER Performed by: TREE DRILLER Indications and Patient Condition Indications for airway [...] March 02, 2025 TIME: 8:34 AM CSN: [id number] [facility] 03-02-2025 Note HNO ID: [id number] Author: BROOKS MONTEJO MD Service: Anesthesiology Author Type: Physician Type: Anesthesia Procedure Notes Filed: 03/02/2025 08:26 Note Text: ANESTHESIOLOGY PROCEDURE NOTE CVL General Information Procedure Start Time/Medication Administration: 03/02/2025 7:31 AM Procedure End Time: 03/02/2025 7:44 AM Patient location during procedure: OR Timeout Performed Pre-procedure: timeout performed Consent Obtained: Yes Patient identity confirmed: arm band, care steam roller operator and patient sedated or unresponsive Indication: central [...] March 02, 2025 TIME: 8:25 AM CSN: [id number] [facility] 03-02-2025 Note HNO ID: [id number] Author: BROOKS MONTEJO MD Service: Anesthesiology Author [...] March 02, 2025 TIME: 8:23 AM CSN: [id number] [facility] 03-01-2025 Note HNO ID: [id number] Author: OMARI HEATON MD Service: Hospital Medicine Author Type: Physician Type: Progress Notes Filed: 03/01/2025 14:33 Note Text: DEPARTMENT OF HOSPITAL MEDICINE PROGRESS NOTE SERVICE DATE: 03/01/2025 SERVICE TIME: 2:32 PM Hospital Medicine/Primary Attending: Omari Heaton MD NIGHT AND WEEKEND COVERAGE: WHITTIER COVERAGE: After 7pm, please call cross cover pager #[phone] Subjective INTERVAL HPI: Episode of sharp L [...] Bag/Syringe/Bot (more content not included)... [facility] 03-01-2025 Note HNO ID: [id number] Author: AALIYAH LÓPEZ RN Service: Care Management [...] 01, 2025 TIME: 2:14 PM [facility] 03-01-2025 Note HNO ID: [id number] Author: RITA HENLEY PA-C Service: Cardiovascular Surgery Author Type: Physician Charter Driver Type: Plan of Care Filed: 03/01/2025 13:54 [...] of scheduled surgery Rita Henley PA-C Pager #[phone] [facility] 02-28-2025 Note HNO ID: [id number] Author: RITA HENLEY PA-C Service: Cardiovascular Surgery Author Type: Physician Charter Driver Type: Plan of Care Filed: 02/28/2025 17:49 [...] Giuseppe (more content not included)... [facility] 02-28-2025 Note HNO ID: [id number] Author: OMARI HEATON MD Service: Hospital Medicine Author Type: Physician Type: Progress Notes Filed: 02/28/2025 14:07 Note Text: DEPARTMENT OF HOSPITAL MEDICINE PROGRESS NOTE SERVICE DATE: 02/28/2025 SERVICE TIME: 2:04 PM Hospital Medicine/Primary Attending: Omari Heaton MD NIGHT AND WEEKEND COVERAGE: MNSALVATORE COVERAGE: After 7pm, please call cross cover pager #[phone] Subjective INTERVAL HPI: Feeling well. Current Facility-Administered [...] -- 02/25/25 004 vte current anticoag therapy (sc,sd) 02/25/2544 pneumatic compression sleeve(s) [place]) 02/25/2544 activity - [place]ize [place]) VTE Prophylaxis: VTE prophylaxis appropriate Disposition: Home Plan of care discussed with Provider, RN, Patient Plan communicated to: N/A SIGNATURE: Omari Heaton MD PATIENT NAME: Elsa Palacio DATE: February 28, 2025 TIME: 1:56 PM [facility] 02-27-2025 Note HNO ID: [id number] Author: OMARI HEATON MD Service: Hospital Medicine Author Type: Physician Type: Progress Notes Filed: 02/27/2025 14:33 Note Text: DEPARTMENT OF HOSPITAL MEDICINE PROGRESS NOTE SERVICE DATE: 02/27/2025 SERVICE TIME: 2:32 PM Hospital Medicine/Primary Attending: Omari Heaton MD NIGHT AND WEEKEND COVERAGE: MNSALVATORE COVERAGE: After 7pm, please call cross cover pager #[phone] Subjective INTERVAL HPI: Mild fatigue and nausea. [...] 0026 -- 02/25/2544 vte current anticoag therapy (sc,sd) 02/25/2544 pneumatic compression sleeve(s) ([place]) 02/25/2544 activity - [place]ize [place]) VTE Prophylaxis: VTE prophylaxis appropriate Disposition: Home Plan of care discussed with Provider, RN, Patient Plan communicated to: N/A SIGNATURE: Omari Heaton MD PATIENT NAME: Elsa Palacio DATE: February 27 (more content not included)... [facility] 02-27-2025 Note HNO ID: [id number] Author: DALILA HUDSON PA-C Service: Cardiovascular Surgery Author Type: Physician Charter Driver Type: Plan of Care Filed: 02/27/2025 13:24 [...] - Exam was compared with the prior [facility] echocardiographic exam performed on 03/14/2020. No significant [...] 39.7%, WBC Count: 8.96 10?/?L, Platelet Count: 997616 cells/?L Substance Abuse: Former smoker Risk Factors / Comorbidities: Diabetes Mellitus , Hypertension, Family Hx of CAD Pulmonary RF: Mild CLD Cardiac Status: Chronic heart failure, NYHA Class I, Ejection Fraction = 58% Coronary Artery Disease: 3 vessels diseased, Proximal LAD Stenosis >= 70%, Non-ST Elevation KS, KS: 1 to 7 Days Valve Disease: Trivial/Trace AR, Mild MR, Trivial/Trace TR Discussed and answerred all questions patient and family had at bedside today. Patient denies chest pain or Shortness of Breath. Continue heparin drip. Dalila Hudson PA-C [facility] 02-26-2025 Note HNO ID: [id number] Author: OMARI HEATON MD Service: Hospital Medicine Author Type: Physician Type: Progress Notes Filed: 02/26/2025 13:57 Note Text: DEPARTMENT OF HOSPITAL MEDICINE PROGRESS NOTE SERVICE DATE: 02/26/2025 SERVICE TIME: 1:54 PM Hospital Medicine/Primary Attending: Omari Heaton MD NIGHT AND WEEKEND COVERAGE: STEVIE COVERAGE: After 7pm, please call cross cover pager #[phone] Subjective INTERVAL HPI: Denies chest pain or [...] -- 02/25/25 004 vte [place] 02/25/2544 pneumatic compression sleeve[place] 02/25/2544 activity - [place]ize [place] VTE Prophylaxis: VTE prophylaxis appropriate Disposition: Home Plan of care discussed with Provider, RN, Patient Plan communicated to: N/A SIGNATURE: Omari Heaton MD PATIENT NAME: Elsa Palacio DATE: February 26, 2025 TIME: 1:56 PM [facility] 02-26-2025 Note HNO ID: [id number] Author: CANDIDA VALDIVIA RN Service: Care Management [...] 26, 2025 TIME: 11:08 AM [facility] 02-25-2025 Note HNO ID: [id number] Author: OMARI HEATON MD Service: Hospital Medicine Author Type: Physician Type: Progress Notes Filed: 02/25/2025 13:59 Note Text: DEPARTMENT OF HOSPITAL MEDICINE PROGRESS NOTE SERVICE DATE: 02/25/2025 SERVICE TIME: 1:56 PM Hospital Medicine/Primary Attending: Omari Heaton MD NIGHT AND WEEKEND COVERAGE: STEVIE COVERAGE: After 7pm, please call cross cover pager #[phone] Subjective INTERVAL HPI: Denies chest pain or [...] -- 02/25/25 004 vte [place]ag [place] 02/25/2544 pneumatic compression sleeve(s) [place] 02/25/2544 activity - [place]ize [place] V[place] Prophylaxis: VTE prophylaxis appropriate Disposition: Home Plan of care discussed with Provider, RN, Patient Plan communicated to: N/A SIGNATURE: Omari Heaton MD PATIENT NAME: Elsa Palacio DATE: February 25, 2025 TIME: 1:56 PM [facility] 02-25-2025 Note HNO ID: [id number] Author: HERMINIA LEAL RN Service: ? Author Type: Registered Nurse Type: Progress Notes Filed: 02/25/2025 11:44 Note Text: Transitional Care Management (TCM) Inpatient Outreach N/A - No specialty updates needed Summary: Patient admitted to: [facility] Patient admitted on: 02/24/25 Admitted for: CABG (coronary artery bypass graft) planned Contact made with patient: Yes Scarlet, my name is Herminia Leal RN and I am calling from the [facility] on behalf of Soraya Briones MD. I understand that you are currently admitted at [facility] and I am calling to cover [...] registered nurse OR a text from the [facility] containing a secure link that will ask you questions about how you are doing since you are back at home. Please know that the telephone number on your caller ID may not identify as [facility]. During our outreach with you, we will ask you about any new or worsening symptoms and ensure you have a follow up appointment with your provider. Best Contact after Hospital Discharge I would like to confirm your contact information. Do you have a mobile phone, landline, or both? Mobile only: [phone] Is this the best number to reach you? Yes Do you give us permission to speak with anyone else if you are unavailable to speak with us? Yes. Name Christine relationship spouse, and contact number [phone]. Primary Care Provider (PCP) Hospital Discharge Appointment Does patient already have a PCP follow up appointment within 7-14 days after hospital discharge? No MyChart Patient MyChart status is: Active Thank you for taking the time to speak with me today. I look forward to working with you once you are discharged home from the hospital. Herminia Leal RN February 25, 2025 11:44 AM [facility] 02-25-2025 Note HNO ID: [id number] Author: CANDIDA VALDIVIA RN Service: Care Management Author Type: Registered Nurse Type: Care Mgt Initial Assessment Filed: 02/25/2025 12:16 Note Text: CARE MANAGEMENT: ASSESSMENT AND DISCHARGE PLAN SERVICE DATE: February 25, 2025 SERVICE TIME: 11:20 AM PCP: Soraya Briones MD Primary Contact: Extended Emergency Contact Information Primary Emergency Contact: Barbara Palacion Address: [address] [place] [address] Mobile Relation: Spouse Admission Status: Inpatient Insurance [...] Be able to go home, General wellness [place] Explained: [place] Given: No Reason Not Given: No placements necessary Are you interested in bedside delivery of your medications? No Patient would like to keep [facility] in [place]. Discharge Planning Participant(s): Patient, Family Patient/Family Comments: [...] with his PCP (Soraya Briones MD with [facility]). Patient drives, and family is able to assist as needed. Plan is home with self care when medically ready for discharge. CM to follow. SIGNATURE: Candida Valdivia RN PATIENT NAME: Elsa Palacio DATE: February 25, 2025 TIME: 12:12 PM [facility] 02-25-2025 Note Patient Outreach ([facility]) GÓMEZPARMINDERELSA Brennan ([id number]) 1940 M Date Time Provider Department 02/25/25 HERMINIA LEAL During your visit today, we recorded the following information about you: Herminia Leal RN 02/25/2025 11:44 AM Signed Transitional Care Management (TCM) Inpatient Outreach N/A - No specialty updates needed Summary: Patient admitted to: [facility] Patient admitted on: 02/24/25 Admitted for: CABG (coronary artery bypass graft) planned Contact made with patient: Yes Jonathanfay, my name is Herminia Leal RN and I am calling from the [facility] on behalf of Soraya Briones MD. I understand that you are currently admitted at [facility] and I am calling to cover [...] registered nurse OR a text from the [facility] containing a secure link that will ask you questions about how you are doing since you are back at home. Please know that the telephone number on your caller ID may not identify as [facility]. During our outreach with you, we will ask you about any new or worsening symptoms and ensure you have a follow up appointment with your provider. Best Contact after Hospital Discharge I would like to confirm your contact information. Do you have a mobile phone, landline, or both? Mobile only: [phone] Is this the best number to reach you? Yes Do you give us permission to speak with anyone else if you are unavailable to speak with us? Yes. Name Christine, relationship spouse, and contact number [phone]. Primary Care Provider (PCP) Hospital Discharge Appointment [...] Assessed Reason for Visit: Transition Of Care [9575] Cmt: Reach In Prescriptions as of 02/25/2025 [...] [G44*01/27/2015 HTN (hypertension) (more content not included)... [facility] 02-24-2025 Note [facility] Medical Records Department [address] [place] [address] Discharge Summary 02/24/25 1326 MR#: [id number] Acct: [id number] Name: ELSA PALACIO Rep #: [id number] : 1940 85 From: Anibal Shore MD PCP: Dr. Jeremias Damico MD Status:DIS IN Location: [facility] [id number] Providers Date of Admission: 02/24/25 Date of [...] Chau for patient to be transferred to [facility] for bypass 2. Hypertension ??? Recently [...] 73.8 H, Lymph % (Auto) 17.2 L, Miner % (Auto) 6.5, Eos % (Auto) 1.7, Baso % (Auto) 0.5, Absolute Neuts (auto) 6.8, Absolute Lymphs (auto) 1.59, Nucleated RBC % 0, PT 13.4, INR 1.0, APTT 27.5, Sodium 135, Potassium 4.1, Chloride 100, Carbon Dioxide 24.9, Anion Gap 9, BUN 19, Creatinine 1.11, Estim Cr (more content not included)... [facility] 02-16-2025 Note HNO ID: [id number] Author: JEREMIAS DAMICO MD Service: ? Author [...] intractable migraine without mention of status migrainosus [facility], Dr Pierce Primary hypertension 10/13/2024 Previous Surgical [...] mg by mouth daily at bedtime. docusate sodium(AlumniFunder LIQUI-GELS 100 MG CAP) Take by mouth [...] Past Histories independently gathered by the clinical patient support associate and the remaining scribed note accurately describes my personal service to the patient. Medical Decision Making: Problems: Low: Stable chronic illness Risk: Moderate: Drug management Medical Decision Making Level: 3 - Low Jeremias Damico MD The documentation for this note was completed by Jessica Bates, (more content not included)... [facility] 12-22-2024 Note HNO ID: [id number] Author: SHAQ BISHOP PA-C Service: ? Author Type: Physician Charter Driver Type: Progress Notes Filed: 12/22/2024 16:42 Note Text: [facility] EST PATIENT CLINIC NOTE (M) Some elements copied from his previous note, which have been updated where appropriate, and all reflect current medical decision making from date of this visit. Note was generated by [employer] and edited as appropriate SERVICE DATE: [...] mg by mouth daily at bedtime. docusate sodium(AlumniFunder LIQUI-GELS 100 MG CAP) Take by mouth once daily. 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 - Urinalysis (more content not included)... [facility] 12-22-2024 History of Presen t illness Narrative Images from the original note were not included. [facility] PATIENT CLINIC NOTE (M) Some elements copied from his previous note, which have been updated where appropriate, and all reflect current medical decision making from date of this visit. Note was generated by [employer] and edited as appropriate SERVICE DATE: [...] intractable migraine without mention of status migrainosus [facility], Dr Pierce Primary hypertension 10/13/2024 REVIEW OF [...] Appointment with Shaq. documented in this encounter [facility] 12-22-2024 Note HNO ID: [id number] Author: LEILANI ARCHER LPN Service: ? Author [...] the procedure well. Plan: Appointment with Shaq. [facility] 12-17-2024 History of Presen t illness [...] General (Family Medicine) Zeeshan Mahmood APRN.RUTHIE as Die Turner (Family Medicine) Outside specialists seen: Urology, Dermatology [...] intractable migraine without mention of status migrainosus [facility], Dr Pierce Primary hypertension 10/13/2024 Previous Surgical [...] 10.4 Absolute nRBC 12/14/2024 <0.01 Recording using [employer] software for draft documentation of the visit was discussed with the patient/authorized residential sales representative; all questions welcomed and answered. Patient/authorized residential sales representative agreed to proceed 1. Acquired hypothyroidism (E03.9) TSH within target range on current Synthroid regimen. - Continue current Synthroid dose. - Refill sent to [facility]. 2. Primary hypertension (I10) Home BP readings [...] Continue tamsulosin and Proscar; refills sent to [place] [facility]. Medical Decision Making: Problems: Moderate: 1+ chronic [...] Drug use: Never documented in this encounter [facility] 12-17-2024 Note HNO ID: [id number] Author: JEREMIAS DAMICO MD Service: ? Author [...] General (Family Medicine) Zeeshan Mahmood APRN.RUTHIE as Die Turner (Family Medicine) Outside specialists seen: Urology, Dermatology [...] (FLOMAX) 0.4 mg (more content not included)... [facility] 11-19-2024 History of Presen t illness [...] mg by mouth daily at bedtime. docusate sodium(AlumniFunder LIQUI-GELS 100 MG CAP) Take by mouth [...] 100 mg daily; prescription sent to [facility] in [place]. - Advised patient to take medication in the evening. - Scheduled follow-up appointment in one month to reassess blood pressure and symptoms. - Ordered lab work to be completed before the next visit. - Cancelled appointment with Zeeshan and will conduct Medicare wellness visit during the next appointment. 2. Acquired hypothyroidism (E03.9) Recording using [employer] software for draft documentation of the visit was discussed with the patient/authorized residential sales representative; all questions welcomed and answered. Patient/authorized residential sales representative agreed to proceed I agree with the Chief Complaint, ROS, and Past Histories independently gathered by the clinical patient support associate and the remaining scribed note accurately describes [...] Jessica Bates MA documented in this encounter [facility] 11-19-2024 Note HNO ID: [id number] Author: JEREMIAS DAMICO MD Service: ? Author [...] intractable migraine without mention of status migrainosus [facility], Dr Pierce Primary hypertension 10/13/2024 Previous Surgical [...] mg by mouth daily at bedtime. docusate sodium(AlumniFunder LIQUI-GELS 100 MG CAP) Take by mouth [...] to 100 mg daily; prescription sent to [facility] in [place]. - Advised patient to take medication in the evening. - Scheduled follow-up appointment in one month to reassess blood pressure and symptoms. - Ordered lab work to be completed before the next visit. - Cancelled appointment with Zeeshan and will conduct Medicare wellness visit during t (more content not included)... [facility] 10-13-2024 History of Presen t illness [...] mg by mouth daily at bedtime. docusate sodium(AlumniFunder LIQUI-GELS 100 MG CAP) Take by mouth [...] Prescription for losartan 50 mg sent to [facility] pharmacy. - Follow-up appointment scheduled in one month to reassess blood pressure control. Recording using [employer] software for draft documentation of the visit was discussed with the patient/authorized residential sales representative; all questions welcomed and answered. Patient/authorized residential sales representative agreed to proceed I agree with the Chief Complaint, ROS, and Past Histories independently gathered by the clinical patient support associate and the remaining scribed note accurately describes [...] Jessica Bates MA documented in this encounter [facility] 10-13-2024 Note HNO ID: [id number] Author: JEREMIAS DAMICO MD Service: ? Author [...] Prescription for losartan 50 mg sent to [facility] pharmacy. - Follow-up appointment scheduled in one month to reassess blood pressure control. Recording using [employer] software for draft documentation of the visit was discussed with the patient/authorized residential sales representative; all questions welcomed and answered. Patient/authorized represe (more content not included)... [facility] 09-04-2024 History of Presen t illness [...] BP and reported readings on 08/27/24 via [email or web address]. Denies any chest pains, dizziness, SOB, or [...] intractable migraine without mention of status migrainosus [facility], Dr Pierce Previous Surgical History PAST SURGICAL [...] mg by mouth daily at bedtime. docusate sodium(AlumniFunder LIQUI-GELS 100 MG CAP) Take by mouth [...] Past Histories independently gathered by the clinical patient support associate and the remaining scribed note accurately describes [...] Jessica Bates MA documented in this encounter [facility] 09-04-2024 Note HNO ID: [id number] Author: JEREMIAS DAMICO MD Service: ? Author [...] BP and reported readings on 08/27/24 via [employer]. Denies any chest pains, dizziness, SOB, or [...] Past Histories independently gathered by the clinical patient support associate and the remaining scribe (more content not included)... [facility] 09-01-2024 Telephone encounter Note Patient rescheduled. [facility] 09-01-2024 Miscellaneous Notes Patient rescheduled. Notified pt [...] Naida Vazquez MA documented in this encounter [facility] 08-31-2024 Telephone encounter Note Notified pt of message below from Provider. Offered to schedule sooner appt if pt would like. Also made pt aware that Provider is okay with appt as scheduled, if pt prefers to not come sooner. Wait pt response. Naida Vazquez MA [facility] 08-31-2024 Telephone encounter Note He probably will be okay. I think Dr. Damico has an appt at 3 pm this Saturday if he wants a sooner appointment. Zeeshan Mahmood APRN.GOLF CADDY [facility] 08-31-2024 Telephone encounter Note Zeeshan are you okay with the appt as scheduled on 09/15/24. Naida Vazquez MA [facility] 08-27-2024 Telephone encounter Note Message sent to pt notifying him that he needs appt. Awaiting response on day and time that would work for his appt. Jessica Bates MA [facility] 08-27-2024 Telephone encounter Note Looks like patient would benefit from a visit to discuss blood pressure management Zeeshan Mahmood APRN.GOLF CADDY [facility] 08-27-2024 Telephone encounter Note See pt message and advise. Medication was d/c by Neurology. Naida Vazquez MA [facility] 08-18-2024 Note HNO ID: [id number] Author: ROBYN HOWE MA Service: ? Author Type: Stretching Machine Tender Frame Type: Progress Notes Filed: 08/18/2024 10:47 Note Text: POPULATION HEALTH NAVIGATION OUTREACH Action/FYI Patient is on [facility] Outreach List and needs appointment to address : Advance Directive Discussion Covid-19 Vaccine() Patient due for: N/A - Needs H@H number MyChart Active: Yes 1st Attempt: Left message for patient to call back. Sent [employer] message. AWV already scheduled 01-29-25 Healthy at Home (H@H) phone number provided [phone]: Yes via [employer] Reason for Outreach [facility] Care Gaps due: N/A Patient Contacted: Unable or unnecessary to reach patient: Left message [employer] message sent Navigation Signature: Robyn Howe MA August 18, 2024 10:44 AM [facility] 08-18-2024 History of Presen t illness Narrative POPULATION HEALTH NAVIGATION OUTREACH Action/FYI Patient is on [facility] Outreach List and needs appointment to address : Advance Directive Discussion Covid-19 Vaccine() Patient due for: N/A - Needs H@H number MyChart Active: Yes 1st Attempt: Left message for patient to call back. Sent [employer] message. AWV already scheduled 01-29-25 [facility] (H@H) phone number provided [phone]: Yes via [email or web address] Reason for Outreach [facility] Care Gaps due: N/A Patient Contacted: Unable or unnecessary to reach patient: Left message [employer] message sent Navigation Signature: Robyn Howe MA [...] 2024 10:40 AM documented in this encounter [facility] 08-18-2024 Note HNO ID: [id number] Author: SARMAD NEWTON RN Service: ? Author [...] Newton RN August 18, 2024 10:40 AM [facility] 08-18-2024 Note Patient Outreach ([facility]) ELSA PALACIO ([id number]) 1940 M Date Time Provider Department 08/18/24 [...] due for: N/A - Needs H@H number [employer] Active: Yes 1st Attempt: Left message for patient to call back. Sent [employer] message. AWV already scheduled 01-29-25 [facility] (H@H) phone number provided [phone]: Yes via mychart Reason for Outreach [facility] Care Gaps due: N/A Patient Contacted: Unable or unnecessary to reach patient: Left message [employer] message sent Navigation Signature: Robyn Howe MA [...] Date Reviewed: 08/04/2024 Reviewed by: Snow Brooks APRN.GOLF CADDY - Fully Assessed Reason for Visit: Population Health Navigation Outreach [3910] Cmt: Value [facility] Prescriptions as of 08/18/2024 - [...] Encounter Status:Closed by SARMAD NEWTON on 08/18/24 [facility] 08-04-2024 History of Presen t illness Narrative Images from the original note were not included. [facility] Follow up visit August 04, 2024 Chief [...] mg by mouth daily at bedtime. docusate sodium(AlumniFunder LIQUI-GELS 100 MG CAP) Take by mouth [...] which included preparing to see the patient, [id number] patient care, completing clinical documentation, obtaining and/or reviewing separately obtained history, performing a medically appropriate examination, and counseling and educating the patient/family/caregiver. Snow Brooks APRN.RUTHIE Headache [facility] documented in this encounter [facility] 08-04-2024 Note HNO ID: [id number] Author: SNOW BROOKS APRN.CNP Service: ? Author Type: Nurse Practitioner Type: Progress Notes Filed: 08/04/2024 10:06 Note Text: [facility] Follow up visit August 04, 2024 Chief [...] no impact) 4 (more content not included)... [facility] 01-30-2024 History of Presen t illness Narrative [facility] Follow up visit January 30, 2024 Chief [...] which included preparing to see the patient, [id number] patient care, completing clinical documentation, obtaining and/or reviewing separately obtained history, performing a medically appropriate examination, and ordering medications, tests, or procedures. Snow Brooks APRN.RUTHIE Headache [facility] documented in this encounter [facility] 01-24-2024 Instructions Zeeshan Mahmood APRN.RUTHIE - 01/24/2024 [...] review all the medicines you take, even cnqv-kfr-zxzihob medicines. As you get older, the way [...] certain medical conditions. documented in this encounter [facility] 01-24-2024 History of Presen t illness Narrative [...] Abs Lymph 1.00 - 4.00 k/uL 1.92 Miner% % 6.8 Abs Miner <0.87 k/uL 0.55 Eosin% % 4.8 Abs [...] - Personalized prevention plan provided Zeeshan Mahmood APRN.GOLF CADDY Additional Concerns The following concerns were also [...] YR, HIGH DOSE, TRIVALENT (FLUZONE HIGH-DOSE) - Work in [employer] COVID-19 VACCINE AGE 12+ YR (COMIRNATY) Zeeshan Mahmood APRN.GOLF CADDY RTO in 12 months. documented in this encounter [facility] 01-21-2024 History of Presen t illness Narrative Patient presents for EKG per Snow Brooks CNP. Denies any problems at this time. Tolerated procedure well. Meera Parker LPN documented in this encounter [facility] 01-09-2024 Telephone encounter Note KD 12/31/23 Pt. Requesting another pharmacy Patient phones requesting refills as follows: Requested Prescriptions Pending Prescriptions Disp Refills finasteride (PROSCAR) 5 mg tablet [Pharmacy Med Name: finasteride 5 mg tablet] 90 tablet 3 Sig: take 1 tablet by mouth once daily. Please review and advise. Shawn Diaz RN [facility] 01-09-2024 Miscellaneous Notes KD 12/31/23 Pt. Requesting another pharmacy Patient phones requesting refills as follows: Requested Prescriptions Pending Prescriptions Disp Refills finasteride (PROSCAR) 5 mg tablet [Pharmacy Med Name: finasteride 5 mg tablet] 90 tablet 3 Sig: take 1 tablet by mouth once daily. Please review and advise. Shawn Diaz, RN documented in this encounter [facility] 01-03-2024 Telephone encounter Note Patient returned call and given provider's message below and patient verbalized understanding. Thao Gould RN [facility] 01-03-2024 Miscellaneous Notes Patient returned call and given provider's message below and patient verbalized understanding. hTao Gould RN Message left for pt to [...] appointment with Zeeshan. documented in this encounter [facility] 01-02-2024 Telephone encounter Note Message left for pt to call back. Jessica Bates MA [facility] 01-01-2024 Telephone encounter Note I placed labs. The EKG was ordered by neurology. He would need an appointment with a nurse to get it completed. Zeeshan Mahmood APRN.GOLF CADDY [facility] 01-01-2024 Telephone encounter Note Pt called wondering if there are any labs necessary prior to his 01/24/24 appt. Please let him know. He needs and EKG also and would like to schedule lab and EKG same day unless EKG can be done at appointment with Zeeshan. [facility] Work Phone: 12-31-2023 Instructions Shaq Bishop PA-C - 12/31/2023 4:01 PM EDT .> 1 year Appt w/ B. MARTHA Bishop, INGRIS KIM for refills documented in this encounter [facility] 12-31-2023 History of Presen t illness Narrative Images from the original note were not included. [facility] EST PATIENT CLINIC NOTE [...] Appointment with Shaq. documented in this encounter [facility] 12-09-2023 Telephone encounter Note He has tapered off Depakote, no labs Continues on Verapamil - order for EKG placed. Snow Brooks APRN.RUTHIE [facility] 12-09-2023 Miscellaneous Notes He has tapered off [...] with Cecilia Best number to reach caller: [phone] (home) Best time to reach caller: ANY Is it OK to leave a detailed voice message? Yes Sandie Gonzalez documented in this encounter [facility] 12-06-2023 Telephone encounter Note Call received for [...] with Cecilia Best number to reach caller: [phone] (home) Best time to reach caller: ANY Is it OK to leave a detailed voice message? Yes Sandie Gonzalez [facility] 09-02-2023 Telephone encounter Note Physician: Cecilia Call from patient requesting refill. Please E-Scribe Last OV: 01/21/2023 with Cecilia Future OV: Not Scheduled. Requested Prescriptions Pending Prescriptions Disp Refills verapamil 80 mg tablet 180 tablet 3 Sig: Take one(1) tablet two(2) times daily. Pharmacy Name: [facility] Bria Flores Adm [facility] 09-02-2023 Miscellaneous Notes Physician: Cecilia Call from patient requesting refill. Please E-Scribe Last OV: 01/21/2023 with Cecilia Future OV: Not Scheduled. Requested Prescriptions Pending Prescriptions Disp Refills verapamil 80 mg tablet 180 tablet 3 Sig: Take one(1) tablet two(2) times daily. Pharmacy Name: [facility] Bria Flores [facility] documented in this encounter [facility] 07-14-2023 Discharge summary Note Date/Time July 14, 2023 8:53am [facility] Medical Records Department [address] [place] [address] Emergency Department Summary 07/14/23 MR#: [id number] Acct: [id number] Name: ELSA PALACIO KEVIN Rep #:[id number] : [id number] 83 From: Salomon Marquez MD [...] your Primary Care Provider. Call [facility] ([phone]) or report to the closest Emergency Room. Call 911 if necessary. 07/14/23 1049 <Electronically signed by Salomon Marquez MD> Cosigner Signature (if applicable): CC: Dr. Jeremias Damico MD ~ Signed [facility] Work Phone: 1(246) 164-300612-06-2023 History of Present illness Narrative* Susan Donis APRN.GOLF CADDY - 03/27/2023 9:16 AM EST CC: Patient [...] plan. Susan Donis APRN.RUTHIE [facility] Miscellaneous Notes* Telephone Encounter - Naida Vazquez Ma - 02/18/2023 9:16 AM EDT Placed in first [employer] message, closing this encounter. Naida Vazquez Ma documented [facility] History of Present illness Narrative* Zeeshan Mahmood [...] - TRAZODONE 50 MG TABLET Zeeshan Mahmood APRN.GOLF CADDY This note was partly generated using Zapa voice recognition dictation and may contain some misspelled or inaccurate words missed on review. documented in this encounterKind[facility]10-13-2023 Instructions* Patient Instructions* Zeeshan Mahmood APRN.CNP - 02/01/2023 12:58 PM EDT Trial Trazodone 50 mg at night. Can you take with the melatonin. Just take 2 tablets of the melatonin. If you are groggy, trial decreasing melatonin dose. Can work all the way down to no melatonin. Mychart me in 2-3 weeks to update me. Zeeshan Mahmood APRN.RUTHIE documented in this [facility]23 History of Present illness Narrative* Meera Parker LPN - 01/24/2023 12:58 PM EDT Patient presents for EKG per Snow Brooks CNP. Denies any problems at this time. Tolerated procedure well. Meera Parker LPN documented in this encounter[facility]-03-2023 History of Present illness Narrative* Zeeshan Mahmood APRN.CNP - 01/22/2023 10:20 AM EDT Elsa Palacio is a 82 year old male here for a Medicare wellness visit. Health Risk Assessment In general, health is: Excellent Concerns with balance: Not at all Concerns with teeth or dentures: Not at all Concerns with sexual function: Not at all [place] anxious, stressed, angry, irritable, lonely, isolated, or [...] aids. Right ear hearing aid with a solar photovoltaic installer fromleft ear. Following with audiology. General appearance: [...] Abs Lymph 1.00 - 4.00 k/uL 1.80 Miner% % 6.4 Abs Miner <0.87 k/uL 0.45 Eosin% % 3.1 Abs [...] have reviewed the Advanced Practice Registered Nurse (SOLE LAYER HAND) student's documentation and verified the findings in the note as written. Any additions or changes are noted in bold/italics. Zeeshan Mahmood APRN.RUTHIE documented in this encounter[facility]-02-2023 History of Present illness Narrative* Snow Brooks APRN.RUTHIE - 01/21/2023 1:00 PM EDT [facility] Follow up visit January 21, 2023 Chief [...] which included preparing to see the patient, [id number] patient care, completing clinical documentation, obtaining and/or reviewing separately obtained history, performing a medically appropriate examination, counseling and educating the patient/family/caregiver, and ordering medications, tests, or procedures. Snow Brooks APRN.GOLF CADDY Headache Section [facility] documented in this encounter[facility]09-07-2023 Miscellaneous Notes* Telephone Encounter - Wendy Jack [...] would like to obtain with PCP in [place]. Did not have fax number. States its his typical lab work and did not know exactly what. Just wanted to get it done before his appt on 01/21/23. Number to return call [phone] Okay to leave a message ? Yes Last office visit 02/16/22 with Cecilia Next office visit 01/21/23 with Cecilia Thank you calling [facility] [place]. You will receive a return call within 48hours ( or 2 business days if close to the weekend). If you feel that this is an urgent issue and needs immediate attention, it is recommended that you contact your primary care provider office or proceed to your nearest Urgent Care Center of Emergency Room ED for evaluation/treatment. documented in this encounterKind[facility]02-15-2023 Miscellaneous Notes* Telephone Encounter - Nesha Vail Adm - 06/06/2022 12:23 PM EST KD: 02/16/2022 with Cecilia documented in this encounter[facility]01-10-2023 Instructions* Patient Instructions* Shaq Bishop PA-C - 05/01/2022 10:34 AM EST > 1 year Appt w/ B. MARTHA Bishop, INGRIS KIM for annual follow-up and refills. documented in this encounterKind[facility]01-10-2023 History of Present illness Narrative* Shaq Bishop PA-C - 05/01/2022 10:23 AM EST Images from the original note were not included. [facility] ESTABLISHED PATIENT CLINIC NOTE [...] mg by mouth daily at bedtime. docusate sodium(Alumni[employer] LIQUI-GELS 100 MG CAP) Take by mouth once daily. 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 [...] Plan: Appointment with Shaq. documented in this encounter[facility]12-[facility]-2022 Miscellaneous Notes* Telephone Encounter - Sonia Godfrey [...] [facility] Wendy Jack documented in this encounterKind[facility]10-31-2022 Miscellaneous Notes* Telephone Encounter - Snow Brooks APRN.CNP - 02/19/2022 4:51 PM EDT Called patient and discussed EKG results NSR. Snow Brooks APRN.RUTHIE * Telephone Encounter - Neshayessenia Vail Adm - 02/19/2022 4:38 PM EDT Patient called back and said that he will be available all day after 9 am tomorrow. [phone] * Telephone Encounter - Snow Brooks APRN.CNP - 02/19/2022 4:32 PM EDT Called patient and left message to contact the office with the best time to reach him Snow Brooks APRN.CNP * Telephone Encounter - Jocelyn Madrid Pss - 02/19/2022 2:51 PM EDT Patient last seen 02/16/2022. ECG results are dated 02/15/2022. documented in this encounterKindred [facility]10-28-2022 Instructions* Patient Instructions* Snow Brooks APRN.CNP - 02/16/2022 10:55 AM EDT 03/03/2021 07/03/2021 BP 116/70 118/72 Pulse 66 74 01/19/2022 01/30/2022 02/16/2022 BP 134/84 154/98 Shaq Bishop PA-C notified of blood pressure. 148/73 Pulse 60 64 59 (A) documented in this encounterKindred [facility]10-28-2022 History of Present illness Narrative* Snow Brooks APRN.CNP - 02/16/2022 10:30 AM EDT [facility] Follow up visit February 16, 2022 Chief [...] articulation, and clear,coherent, and relevant. Short and mcfp memory, cognition and general fund of knowledge [...] which included preparing to see the patient, [id number] patient care, completing clinical documentation, obtaining and/or reviewing separately obtained history, and counseling and educating the patient/family/caregiver. Snow Brooks APRN.RUTHIE Headache Section [facility] February 16, 2022 12:57 PM documented in this encounterKindred [facility]10-27-2022 History of Present illness Narrative* Meera Parker LPN - 02/15/2022 3:04 PM EDT Patient presents for EKG per Dr Brooks. Denies any problems at this time. Tolerated procedure well. Meera Parker LPN documented in this encounterKindred [facility]10-11-2022 History of Present illness Narrative* Shaq Bishop PA-C - 01/30/2022 3:07 PM EDT Images from the original note were not included. [facility] NEW PATIENT CLINIC NOTE [...] Plan: Appointment with Shaq. documented in this encounterKind[facility]09-30-2022 Instructions* Patient Instructions* Zeeshan Mahmood APRN.CNP - 01/19/2022 1:32 PM EDT Influenza and COVID given today Levothyroxine 100 mcg [facility] Repeat TSH on or around 03/21/2022. I will reach out to you with results and instructions. Schedule with [facility]. Zeeshan Mahmood APRN.CNP documented in this encounterKindred Hospital [facility]09-30-2022 History of Present illness Narrative* Zeeshan Mahmood [...] current specialists seen: Neurology, [facility]; [employer] [facility] Live Planning [...] Abs Lymph 1.00 - 4.00 k/uL 1.91 Miner% % 5.8 Abs Miner <0.87 k/uL 0.76 Eosin% % 2.1 Abs [...] at this time. - Patient was counseled [id number] by myself (the billing provider) for the [...] UROLOGY Zeeshan Mahmood APRN.CNP documented in this encounterKindred [facility]09-19-2022 Miscellaneous Notes* Telephone Encounter - Snow Brooks [...] of office today. Number to return call [phone] Okay to leave a message ? Yes Last office visit 03/22/2021 with Cecilia Next office visit 02/16/2022 with Cecilia Thank you calling [facility] [place]. You will receive a return call within 48hours ( or 2 business days if close to the weekend). If you feel that this is an urgent issue and needs immediate attention, it is recommended that you contact your primary care provider office or proceed to your nearest Urgent Care Center of Emergency Room ED for evaluation/treatment. documented in this encounterKindred [facility]09-16-2022 Miscellaneous Notes* Telephone Encounter - Herminia Keith [...] orders. Please advise patient. documented in this encounterKindred [facility]06-20-2022 Miscellaneous Notes* Telephone Encounter - Zeeshan Mahmood [...] refills Clara Salter LPN documented in this encounterKindred [facility]05-10-2022 Miscellaneous Notes* Telephone Encounter - Jocelyn Madrid Pss - 08/29/2021 4:23 PM EDT Patient last seen 07/03/2021. documented in this encounterKind[facility]01-19-2006 History of Past illness Narrative* Problem Noted Date Resolved Date Diverticulosis of colon (without mention of hemo rrhage) 05/10/2005 02/01/2017 3.1.1 PERIOD UNDETERM W/O INTRACT [346.20] 02/2203/11/2009 documented as of this encounter (statuses as of 08/29/2021) [facility] of [facility] Narrative* Problem Noted Date Resolved Date Diverticulosis of colon (without mention of hemo rrhage) 05/10/2005 02/01/2017 3.1.1 PERIOD UNDETERM W/O INTRACT [346.20] 02/2203/11/2009 documented as of this encounter (statuses as of 10/09/2021) [facility] of Past illness Narrative* Problem Noted Date Resolved Date Diverticulosis of colon (without mention of hemo rrhage) 05/10/2005 02/01/2017 3.1.1 PERIOD UNDETERM W/O INTRACT [346.20] 02/2203/11/2009 documented as of this encounter (statuses as of 01/05/2022) [facility] History of Past illness Narrative* Problem Noted Date Resolved Date Diverticulosis of colon (without mention of hemo rrhage) 05/10/2005 02/01/2017 3.1.1 PERIOD UNDETERM W/O INTRACT [346.20] 02/2203/11/2009 documented as of this encounter (statuses as of 01/08/2022) [facility] of Past illness Narrative* Problem Noted Date Resolved Date Diverticulosis of colon (without mention of hemo rrhage) 05/10/2005 02/01/2017 3.1.1 PERIOD UNDETERM W/O INTRACT [346.20] 02/2203/11/2009 documented as of this encounter (statuses as of 01/19/2022) [address]19-2006 History of Past illness Narrative* Problem Noted Date Resolved Date Diverticulosis of colon (without mention of hemo rrhage) 05/10/2005 02/01/2017 3.1.1 PERIOD UNDETERM W/O INTRACT [346.20] 02/2203/11/2009 documented as of this encounter (statuses as of 01/30/2022) [address]19-2006 History of Past illness Narrative* Problem Noted Date Resolved Date Diverticulosis of colon (without mention of hemo rrhage) 05/10/2005 02/01/2017 3.1.1 PERIOD UNDETERM W/O INTRACT [346.20] 02/2203/11/2009 documented as of this encounter (statuses as of 02/15/2022) [address]19-2006 History of Past illness Narrative* Problem Noted Date Resolved Date Diverticulosis of colon (without mention of hemo rrhage) 05/10/2005 02/01/2017 3.1.1 PERIOD UNDETERM W/O INTRACT [346.20] 02/2203/11/2009 documented as of this encounter (statuses as of 02/16/2022) [address]19-2006 History of Past illness Narrative* Problem Noted Date Resolved Date Diverticulosis of colon (without mention of hemo rrhage) 05/10/2005 02/01/2017 3.1.1 PERIOD UNDETERM W/O INTRACT [346.20] 02/2203/11/2009 documented as of this encounter (statuses as of 02/19/2022) [address]19-2006 History of Past illness Narrative* Problem Noted Date Resolved Date Diverticulosis of colon (without mention of hemo rrhage) 05/10/2005 02/01/2017 3.1.1 PERIOD UNDETERM W/O INTRACT [346.20] 02/2203/11/2009 documented as of this encounter (statuses as of 03/23/2022) [address]19-2006 History of Past illness Narrative* Problem Noted Date Resolved Date Diverticulosis of colon (without mention of hemo rrhage) 05/10/2005 02/01/2017 3.1.1 PERIOD UNDETERM W/O INTRACT [346.20] 02/2203/11/2009 documented as of this encounter (statuses as of 04/03/2022) [address]19-2006 History of Past illness Narrative* Problem Noted Date Resolved Date Diverticulosis of colon (without mention of hemo rrhage) 05/10/2005 02/01/2017 3.1.1 PERIOD UNDETERM W/O INTRACT [346.20] 02/2203/11/2009 documented as of this encounter (statuses as of 05/01/2022) [address]19-2006 History of Past illness Narrative* Problem Noted Date Resolved Date Diverticulosis of colon (without mention of hemo rrhage) 05/10/2005 02/01/2017 3.1.1 PERIOD UNDETERM W/O INTRACT [346.20] 02/2203/11/2009 documented as of this encounter (statuses as of 06/07/2022) [address]19-2006 History of Past illness Narrative* Problem Noted Date Diagnosed Date Resolved Date Diverticulosis of colon (wit hout mention of hemorrhage) 05/10/2005 02/01/2017 3.1.1 PERIOD UNDETERM W/O INTRACT [346.20] 02/23/2004 03/11/2009 documented as of this encounter (statuses as of 12/27/2022) [address]19-2006 History of Past illness Narrative* Problem Noted Date Diagnosed Date Resolved Date Diverticulosis of colon (wit hout mention of hemorrhage) 05/10/2005 02/01/2017 3.1.1 PERIOD UNDETERM W/O INTRACT [346.20] 02/23/2004 03/11/2009 documented as of this encounter (statuses as of 01/22/2023) [address]19-2006 History of Past illness Narrative* Problem Noted Date Diagnosed Date Resolved Date Diverticulosis of colon (wit hout mention of hemorrhage) 05/10/2005 02/01/2017 3.1.1 PERIOD UNDETERM W/O INTRACT [346.20] 02/23/2004 03/11/2009 documented as of this encounter (statuses as of 01/23/2023) [address]19-2006 History of Past illness Narrative* Problem Noted Date Diagnosed Date Resolved Date Diverticulosis of colon (wit hout mention of hemorrhage) 05/10/2005 02/01/2017 3.1.1 PERIOD UNDETERM W/O INTRACT [346.20] 02/23/2004 03/11/2009 documented as of this encounter (statuses as of 01/26/2023) [address]19-2006 History of Past illness Narrative* Problem Noted Date Diagnosed Date Resolved Date Diverticulosis of colon (wit hout mention of hemorrhage) 05/10/2005 02/01/2017 3.1.1 PERIOD UNDETERM W/O INTRACT [346.20] 02/23/2004 03/11/2009 documented as of this encounter (statuses as of 02/01/2023) [facility] of Past illness Narrative* Problem Noted Date Diagnosed Date Resolved Date Diverticulosis of colon (wit hout mention of hemorrhage) 05/10/2005 02/01/2017 3.1.1 PERIOD UNDETERM W/O INTRACT [346.20] 02/23/2004 03/11/2009 documented as of this encounter (statuses as of 02/18/2023) [address]19-2006 History of Past illness Narrative* Problem Noted Date Diagnosed Date Resolved Date Diverticulosis of colon (wit hout mention of hemorrhage) 05/10/2005 02/01/2017 3.1.1 PERIOD UNDETERM W/O INTRACT [346.20] 02/23/2004 03/11/2009 documented as of this encounter (statuses as of 03/27/2023) [facility] Diagnosis Erectile dysfunction due to diseases classified elsewhere [facility]* Diagnosis Wellness examination- Primary Other specified hypothyroidism [facility]* Diagnosis Episodic cluster headache, not intractable- Primary Episodic cluster headache [facility]* Diagnosis Medicare annual wellness visit, subsequent- [...] tract symptoms (LUTS) documented in this encounter [facility] note* Diagnosis Post-void dribbling- Primary BPH with obstruction/lower urinary tract symptoms Hypertrophy of prostate with urinary obstruction and other lower urinary tract symptoms (LUTS) documented in this encounter [facility]* Diagnosis Episodic cluster headache, not intractable Episodic cluster headache documented in this encounter [facility] note* Diagnosis Episodic cluster headache, not intractable Episodic cluster headache documented in this encounter [facility] note* Diagnosis Episodic cluster headache, not intractable Episodic cluster headache documented in this encounter [facility] note* Diagnosis BPH with obstruction/lower urinary tract symptoms- Primary Hypertrophy of prostate with urinary obstruction and other lower urinary tract symptoms (LUTS) Erectile dysfunction due to diseases classified elsewhere documented in this encounter [facility] note* Diagnosis Episodic cluster headache, not intractable- Primary Episodic cluster headache documented in this encounter [facility] note* Diagnosis Medicare annual wellness visit, subsequent- Primary Routine general medical examination at a [facility] Encounter for immunization Need for other specified prophylactic vaccination against single bacterial disease Acquired hypothyroidism Unspecified hypothyroidism Episodic cluster headache, not intractable Episodic cluster headache BPH with obstruction/lower urinary tract symptoms Hypertrophy of prostate with urinary obstruction and other lower urinary tract symptoms (LUTS) documented in this encounter [facility] note* Diagnosis Episodic cluster headache, not intractable- Primary Episodic cluster headache documented in this encounter [facility] note* Diagnosis Difficulty sleeping- Primary Sleep disturbance, unspecified documented in this encounter [facility] note* Diagnosis URI, acute- Primary Acute upper respiratory infections of unspecified site documented in this encounter [facility] noteNo assessment information availableWGlenbeigh [facility] Work Phone: Evaluation note* Diagnosis Episodic cluster headache, not intractable Episodic cluster headache documented in this encounter [facility] note* Diagnosis Episodic cluster headache, not intractable- Primary Episodic cluster headache documented in this encounter [facility] note* Diagnosis BPH without obstruction/lower urinary tract symptoms- Primary Hypertrophy of prostate without urinary obstruction and other lower urinary tract symptoms (LUTS) documented in this encounter [facility]* Diagnosis Acquired hypothyroidism- Primary Unspecified hypothyroidism Medicare annual wellness visit, subsequent Routine general medical examination at a health care facility documented in this encounter [facility] note* Diagnosis Episodic cluster headache, not intractable Episodic cluster headache documented in this encounter [facility] note* Diagnosis Medicare annual wellness visit, subsequent- Primary Routine general medical examination at a health care facility Acquired hypothyroidism Unspecified hypothyroidism Episodic cluster headache, not intractable Episodic cluster headache Encounter for immunization Need for other specified prophylactic vaccination against single bacterial disease Screening for depression Encounter for screening examination for other mental health and behavioral disorders documented in this encounter [facility] note* Diagnosis Episodic cluster headache, not intractable- Primary Episodic cluster headache documented in this encounter [facility] note* Diagnosis Episodic cluster headache, not intractable- Primary Episodic cluster headache documented in this encounter [facility] note* Diagnosis Primary hypertension- Primary Unspecified essential hypertension documented in this encounter [facility] note* Diagnosis Primary hypertension- Primary Unspecified essential hypertension documented in this encounter [facility] note* Diagnosis Acquired hypothyroidism- Primary Unspecified hypothyroidism Primary hypertension Unspecified essential hypertension documented in this encounter [facility] note* Diagnosis Acquired hypothyroidism- Primary Unspecified hypothyroidism Primary hypertension Unspecified essential hypertension Encounter for Medicare annual wellness exam Routine general medical examination at a [facility] Episodic cluster headache, not intractable Episodic cluster headache Benign prostatic hyperplasia without lower urinary tract symptoms documented in this encounter [facility] note* Diagnosis BPH without obstruction/lower urinary tract symptoms- Primary Hypertrophy of prostate without urinary obstruction and other lower urinary tract symptoms (LUTS) Screening for genitourinary condition Screening for other and unspecified genitourinary condition documented in this encounter [facility] for referral (narrative)* Outpatient Procedure (Routine) - Pending Review Specialty Diagnoses / Procedures Referred By Juventino gtz Referred To [facility] Diagnoses Episodic cluster headache, not intractable Procedures ECG COMPLETE ECG ROUTINE ECG W/LEAST 12 LDS W/I&R Snow Brooks, SOLE LAYER HAND.GOLF CADDY [address] [place] [address] [facility] [place] [address] [place] [address] Referral ID Status Reason Start Date Expiration Date Visits Requested Visits Authorized [id number] Pending Review Auto-Generat ed Referral 01/08/2022 01/08/2023 1 1 [facility] for referral (narrative)* Outpatient Procedure (Routine) - Pending Review Specialty Diagnoses / Procedures Referred By Contac t Referred To Contact [facility] Diagnoses Episodic cluster headache, not intractable Procedures ECG COMPLETE ECG ROUTINE ECG W/LEAST 12 LDS W/I&R Snow Brooks APRN.CNP [address] [place] [address] [facility] [address] [place] [id number] Referral ID Status Reason Start Date Expiration Date Visits Requested Visits Authorized [id number] Pending Review Auto-Generat ed Referral 01/21/2023 01/21/2024 1 1 [facility] for referral (narrative)* Outpatient Procedure (Routine) - New Request Specialty Diagnoses / Procedures Referred By Contac t Referred To Contact [facility] Diagnoses Episodic cluster headache, not intractable Procedures ECG COMPLETE ECG ROUTINE ECG W/LEAST 12 LDS W/I&R Snow Brooks APRN.CNP [address] [place] [address] [facility] [address] [place] [address] Referral ID Status Reason Start Date Expiration Date Visits Requested Visits Authorized [id number] New Request Auto-Generat ed Referral 12/09/2023 12/08/2024 1 1 [facility] Summary Purpose Family History No Family History Records FoundNo Family History Records FoundNo Family History Records FoundNo Family History Records Found Advance Directives No Advanced Directives Records FoundDocuments on File Type Date 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 Advance Directive(s) 01/20/2018 7:56 AM Advance Directive(s) 06/09/2013 12:43 PM Advance Directive(s) 11/24/2007 12:00 AM Documents on File Type Date Recorded 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 Advance Directive(s) 06/09/2013 12:43 PM Advance Directive(s) 11/24/2007 Documents on File Type Date Recorded 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 Advance Directive(s) 06/09/2013 12:43 PM Advance Directive(s) 11/24/2007 Advance Directive Response Recorded Date/ Time Living Will No July 14, 2023 9:28am Power of Development Officer No July 13 9:28am Reason for Referral Specialty Diagnoses / Procedures Referred By Contac t Referred To Contact Urology Diagnoses BPH with obstruction/lower urinary tract symptoms Procedures CONSULT TO UROLOGY OFFICE/OUTPATIENT [facility] 60-74 MINUTES Zeeshan Mahmood APRN.GOLF CADDY [address] [place] [address] Referral ID Status Reason Start Date Expiration Date Visits Requested Visits Authorized [id number] Pending Review PCP Requested Referral 01/19/2022 01/19/2023 1 1 Health Concerns Infection Onset Date Last Indicated Resolved Time COVID-19 Rule-Out 03/27/2023 03/27/2023 Chief Complaint and Reason for Visit Chief Complaint nosebleed Additional Source Comments (unrecognized sect ion and content) No Status Records FoundNo Status Records FoundNo Status Records FoundNo Status Records Found INFORMATION SOURCE (unrecogn ized section and content) DATE CREATED AUTHOR 02/03/2019 [facility] DATE CREATED AUTHOR AUTHOR'S ORGANIZ ATION 02/27/2025 [facility] DATE CREATED AUTHOR AUTHOR'S ORGANIZ ATION 03/03/2025 [facility] DATE CREATED AUTHOR AUTHOR'S ORGANIZ ATION 03/04/2025 [facility] Source Comments (unrecognize d section and content) In the event this informatio n is protected by the Federal Confidentiality of Alcohol and Drug Abuse Patient Records regulations: The Federal rules restrict any use of the information to criminally investigate or prosecute any alcohol or drug abuse patient.[facility] the event this information is protected by the Federal Confidentiality of Alcohol and Drug Abuse Patient Records regulations: The Federal rules restrict any use of the information to criminally investigate or prosecute any alcohol or drug abuse patient.[facility] the event this information is protected by the Federal Confidentiality of Alcohol and Drug Abuse Patient Records regulations: The Federal rules restrict any use of the information to criminally investigate or prosecute any alcohol or drug abuse patient.[facility] the event this information is protected by the Federal Confidentiality of Alcohol and Drug Abuse Patient Records regulations: The Federal rules restrict any use of the information to criminally investigate or prosecute any alcohol or drug abuse patient.[facility] the event this information is protected by the Federal Confidentiality of Alcohol and Drug Abuse Patient Records regulations: The Federal rules restrict any use of the information to criminally investigate or prosecute any alcohol or drug abuse patient.[facility] the event this information is protected by the Federal Confidentiality of Alcohol and Drug Abuse Patient Records regulations: The Federal rules restrict any use of the information to criminally investigate or prosecute any alcohol or drug abuse patient.[facility] the event this information is protected by the Federal Confidentiality of Alcohol and Drug Abuse Patient Records regulations: The Federal rules restrict any use of the information to criminally investigate or prosecute any alcohol or drug abuse patient.[facility] the event this information is protected by the Federal Confidentiality of Alcohol and Drug Abuse Patient Records regulations: The Federal rules restrict any use of the information to criminally investigate or prosecute any alcohol or drug abuse patient.[facility] the event this information is protected by the Federal Confidentiality of Alcohol and Drug Abuse Patient Records regulations: The Federal rules restrict any use of the information to criminally investigate or prosecute any alcohol or drug abuse patient.[facility]ima[facility] the event this information is protected by the Federal Confidentiality of Alcohol and Drug Abuse Patient Records regulations: The Federal rules restrict any use of the information to criminally investigate or prosecute any alcohol or drug abuse patient.[facility]ima[facility] the event this information is protected by the Federal Confidentiality of Alcohol and Drug Abuse Patient Records regulations: The Federal rules restrict any use of the information to criminally investigate or prosecute any alcohol or drug abuse patient.[facility]ima[facility] the event this information is protected by the Federal Confidentiality of Alcohol and Drug Abuse Patient Records regulations: The Federal rules restrict any use of the information to criminally investigate or prosecute any alcohol or drug abuse patient.[facility]ima[facility] the event this information is protected by the Federal Confidentiality of Alcohol and Drug Abuse Patient Records regulations: The Federal rules restrict any use of the information to criminally investigate or prosecute any alcohol or drug abuse patient.[facility]ima[facility] the event this information is protected by the Federal Confidentiality of Alcohol and Drug Abuse Patient Records regulations: The Federal rules restrict any use of the information to criminally investigate or prosecute any alcohol or drug abuse patient.[facility]ima[facility] the event this information is protected by the Federal Confidentiality of Alcohol and Drug Abuse Patient Records regulations: The Federal rules restrict any use of the information to criminally investigate or prosecute any alcohol or drug abuse patient.[facility]ima[facility] the event this information is protected by the Federal Confidentiality of Alcohol and Drug Abuse Patient Records regulations: The Federal rules restrict any use of the information to criminally investigate or prosecute any alcohol or drug abuse patient.[facility]ima[facility] the event this information is protected by the Federal Confidentiality of Alcohol and Drug Abuse Patient Records regulations: The Federal rules restrict any use of the information to criminally investigate or prosecute any alcohol or drug abuse patient.[facility]ima[facility] the event this information is protected by the Federal Confidentiality of Alcohol and Drug Abuse Patient Records regulations: The Federal rules restrict any use of the information to criminally investigate or prosecute any alcohol or drug abuse patient.[facility]ima[facility] the event this information is protected by the Federal Confidentiality of Alcohol and Drug Abuse Patient Records regulations: The Federal rules restrict any use of the information to criminally investigate or prosecute any alcohol or drug abuse patient.[facility]ima[facility] the event this information is protected by the Federal Confidentiality of Alcohol and Drug Abuse Patient Records regulations: The Federal rules restrict any use of the information to criminally investigate or prosecute any alcohol or drug abuse patient.[facility]ima[facility] the event this information is protected by the Federal Confidentiality of Alcohol and Drug Abuse Patient Records regulations: The Federal rules restrict any use of the information to criminally investigate or prosecute any alcohol or drug abuse patient.[facility]ima[facility] the event this information is protected by the Federal Confidentiality of Alcohol and Drug Abuse Patient Records regulations: The Federal rules restrict any use of the information to criminally investigate or prosecute any alcohol or drug abuse patient.[facility]ima[facility] the event this information is protected by the Federal Confidentiality of Alcohol and Drug Abuse Patient Records regulations: The Federal rules restrict any use of the information to criminally investigate or prosecute any alcohol or drug abuse patient.[facility]ima[facility] the event this information is protected by the Federal Confidentiality of Alcohol and Drug Abuse Patient Records regulations: The Federal rules restrict any use of the information to criminally investigate or prosecute any alcohol or drug abuse patient.[facility]ima[facility] the event this information is protected by the Federal Confidentiality of Alcohol and Drug Abuse Patient Records regulations: The Federal rules restrict any use of the information to criminally investigate or prosecute any alcohol or drug abuse patient.[facility]ima[facility] the event this information is protected by the Federal Confidentiality of Alcohol and Drug Abuse Patient Records regulations: The Federal rules restrict any use of the information to criminally investigate or prosecute any alcohol or drug abuse patient.[facility]ima[facility] the event this information is protected by the Federal Confidentiality of Alcohol and Drug Abuse Patient Records regulations: The Federal rules restrict any use of the information to criminally investigate or prosecute any alcohol or drug abuse patient.[facility]ima[facility] the event this information is protected by the Federal Confidentiality of Alcohol and Drug Abuse Patient Records regulations: The Federal rules restrict any use of the information to criminally investigate or prosecute any alcohol or drug abuse patient.[facility]ima[facility] the event this information is protected by the Federal Confidentiality of Alcohol and Drug Abuse Patient Records regulations: The Federal rules restrict any use of the information to criminally investigate or prosecute any alcohol or drug abuse patient.[facility]ima[facility] the event this information is protected by the Federal Confidentiality of Alcohol and Drug Abuse Patient Records regulations: The Federal rules restrict any use of the information to criminally investigate or prosecute any alcohol or drug abuse patient.[facility]ima[facility] the event this information is protected by the Federal Confidentiality of Alcohol and Drug Abuse Patient Records regulations: The Federal rules restrict any use of the information to criminally investigate or prosecute any alcohol or drug abuse patient.[facility]ima[facility] the event this information is protected by the Federal Confidentiality of Alcohol and Drug Abuse Patient Records regulations: The Federal rules restrict any use of the information to criminally investigate or prosecute any alcohol or drug abuse patient.[facility]ima[facility] the event this information is protected by the Federal Confidentiality of Alcohol and Drug Abuse Patient Records regulations: The Federal rules restrict any use of the information to criminally investigate or prosecute any alcohol or drug abuse patient.[facility]ima[facility] the event this information is protected by the Federal Confidentiality of Alcohol and Drug Abuse Patient Records regulations: The Federal rules restrict any use of the information to criminally investigate or prosecute any alcohol or drug abuse patient.[facility]ima[facility] the event this information is protected by the Federal Confidentiality of Alcohol and Drug Abuse Patient Records regulations: The Federal rules restrict any use of the information to criminally investigate or prosecute any alcohol or drug abuse patient.[facility]imaIn the event this information is protected by the Federal Confidentiality of Alcohol and Drug Abuse Patient Records regulations: The Federal rules restrict any use of the information to criminally investigate or prosecute any alcohol or drug abuse patient.[facility] Care Teams (unrecognized sec tion and content) Toll Mechanic Relationship Specialty Start Date End Date Jeremias Damico MD [address] [place] [address] PCP - General Family Practice 04/27/15 Toll Mechanic Relationship Specialty Start Date End Date Jeremias Damico MD [address] [place] [address] PCP - General Family Practice 04/27/15 Toll Mechanic Relationship Specialty Start Date End Date Jeremias Damico MD [address] [place] [address] PCP - General Family Practice 04/27/15 Toll Mechanic Relationship Specialty Start Date End Date Jeremias Damico MD [facility] [place] [address] PCP - General Family Practice 04/27/15 Toll Mechanic Relationship Specialty Start Date End Date Jeremias Damico MD [facility] [place] [address] PCP - General Family Medicine 04/27/15 Toll Mechanic Relationship Specialty Start Date End Date Jeremias Damico MD [facility] [place] [address] PCP - General Family Medicine 04/27/15 Toll Mechanic Relationship Specialty Start Date End Date Jeremias Damico MD [facility] [place] [address] PCP - General Family Medicine 04/27/15 Toll Mechanic Relationship Specialty Start Date End Date Jeremias Damico MD [address] [place] [address] [place] [address] PCP - General Family Medicine 04/27/15 Toll Mechanic Relationship Specialty Start Date End Date Jeremias Damico MD [address] [place] [address] PCP - General Family Medicine 04/27/15 Toll Mechanic Relationship Specialty Start Date End Date Jeremias Damico MD [address] [place] [address] PCP - General Family Medicine 04/27/15 Toll Mechanic Relationship Specialty Start Date End Date Jeremias Damico MD [address] [place] [address] PCP - General Family Medicine 04/27/15 Toll Mechanic Relationship Specialty Start Date End Date Jeremias Damico MD [address] [place] [address] PCP - General Family Medicine 04/27/15 Toll Mechanic Relationship Specialty Start Date End Date Jeremias Damico MD [address] [place] [address] PCP - General Family Medicine 04/27/15 Toll Mechanic Relationship Specialty Start Date End Date Jeremias Damico MD [address] [place] [address] PCP - General Family Medicine 04/27/15 Toll Mechanic Relationship Specialty Start Date End Date Jeremias Damico MD [address] [place] [address] PCP - General Family Medicine 04/27/15 Toll Mechanic Relationship Specialty Start Date End Date Jeremias Damico MD [address] [place] [address] PCP - General Family Medicine 04/27/15 Toll Mechanic Relationship Specialty Start Date End Date Jeremias Damico MD [address] [place] [address] PCP - General Family Medicine 04/27/15 Toll Mechanic Relationship Specialty Start Date End Date Jeremias Damico MD [address] [place] [address] PCP - General Family Medicine 04/27/15 Team Status: Active Member Role Status Dates Dr. Jeremias Damico MD Family Provider Active Dr. Jeremias Damico MD Primary Care Provider Active Team Status: Inactive Member Role Status Dates Dr. Jeremias Damico MD Primary Care Provider Active Dr. Salomon Marquez MD Emergency Provider Active Toll Mechanic Relationship Specialty Start Date End Date Jeremias Damico MD [address] [place] [address] PCP - General Family Medicine 04/27/15 Toll Mechanic Relationship Specialty Start Date End Date Jeremias Damico MD [address] [place] [address] PCP - General Family Medicine 04/27/15 Toll Mechanic Relationship Specialty Start Date End Date Jeremias Damico MD [address] [place] [address] PCP - General Family Medicine 04/27/15 Toll Mechanic Relationship Specialty Start Date End Date Jeremias Damico MD [address] [place] [address] PCP - General Family Medicine 04/27/15 Toll Mechanic Relationship Specialty Start Date End Date Jeremias Damico MD [address] [place] [address] PCP - General Family Medicine 04/27/15 Toll Mechanic Relationship Specialty Start Date End Date Jeremias Damico MD [address] [facility] [place] [address] PCP - General Family Medicine 04/27/15 Toll Mechanic Relationship Specialty Start Date End Date Jeremias Damico MD [address] [place] [address] PCP - General Family Medicine 04/27/15 Diana Shook, NIDHI.GOLF CADDY [address] [place] [address] [facility] 03/29/24 Zeeshan Mahmodo SOLE LAYER HAND.GOLF CADDY [address] [place] [address] [facility] 04/07/24 Toll Mechanic Relationship Specialty Start Date End Date Jeremias Damico MD [address] [place] [address] PCP - General Family Medicine 04/27/15 Diana Shook SOLE LAYER HAND.GOLF CADDY [address] [place] [address] [facility] 03/29/24 Zeeshan Mahmood SOLE LAYER HAND.GOLF CADDY [address] [place] [address] [facility] 04/07/24 Toll Mechanic Relationship Specialty Start Date End Date Jeremias Damico MD [address] [place] [address] PCP - General Family Medicine 04/27/15 Diana Shook, SOLE LAYER HAND.GOLF CADDY [address] [place] [address] [facility] 03/29/24 Zeeshan Mahmood APRN.GOLF CADDY [address] [place] [address] [facility] 04/07/24 Toll Mechanic Relationship Specialty Start Date End Date Jeremias Damico MD [address] [place] [address] PCP - General Family Medicine 04/27/15 Zeeshan Mahmood, SOLE LAYER HAND.GOLF CADDY [address] [place] [address] [facility] 04/07/24 Toll Mechanic Relationship Specialty Start Date End Date Jeremias Damico MD [address] [place] [address] PCP - General Family Medicine 04/27/15 Zeeshan Mahmood, SOLE LAYER HAND.GOLF CADDY [address] [place] [address] [facility] 04/07/24 Toll Mechanic Relationship Specialty Start Date End Date Jreemias Damico MD [address] [place] [address] PCP - General Family Medicine 04/27/15 Zeeshan Mahmood APRN.GOLF CADDY [address] [place] [address] [facility] 04/07/24 Toll Mechanic Relationship Specialty Start Date End Date Jeremias Damico MD [address] [place] [address] PCP - General Family Medicine 04/27/15 Zeeshan Mahmood APRN.GOLF CADDY [address] [place] [address] [facility] 04/07/24 Reason for Visit (unrecogniz [...] tract symptoms Procedures CONSULT TO UROLOGY OFFICE/OUTPATIENT [facility] 60-74 MINUTES Zeeshan Mahmood APRN.GOLF CADDY [address] [place] [address] Referral ID Status Reason Start Date Expiration Date Visits Requested Visits Authorized [id number] Pending Review PCP Requested Referral 01/19/2022 01/19/2023 1 1 Reason Comments EKG Specialty Diagnoses / Procedures Referred By Juventino gtz Referred To Contact [facility] Diagnoses Episodic cluster headache, not intractable Procedures ECG COMPLETE ECG ROUTINE ECG W/LEAST 12 LDS W/I&R Snow Brooks, SOLE LAYER HAND.GOLF CADDY [address] [place] [address] [facility] [place] [address] [place] [address] Referral ID Status Reason Start Date Expiration Date V isits Requested Visits Authorized [id number] Closed Auto-Generate d Referral 01/08/2022 01/08/2023 1 [...] Expiration Date V isits Requested Visits Authorized [id number] Closed Auto-Generate d Referral 12/09/2023 12/08/2024 1 [...] BE BASED ON THE PRIMARY CLINICAL RECORDS. [employer] [facility]. provides no warranty or guarantee of the accuracy or completeness of information in this document.
[2025-04-17 17:17] LABS: Prothrombin Time (Protime)PT. 14.9 SECONDS (11.7-14.9)
[2025-04-17 17:18] LABS: Partial Thromboplast Time 29.4 Seconds (24.1-36.2)
[2025-04-17 17:25] LABS: Anion Gap 8 (7-18); BUN 19 mg/dL (4-19); BUN/Creat Ratio 19.1 RATIO (10-20); Calcium,Total 9.3 mg/dL (7.6-11.0); Carbon Dioxide 26.9 mmol/L (20.0-29.0); Chloride 103 mmol/L (96-106); Estimated Creatinine Clearance 55.21 ml/min (50-250); Glucose 124 mg/dL (70-99); Potassium 4.4 mmol/L (3.5-5.1); Troponin T High Sensitivity 26 ng/L (<=22)
--- NOTE | 2025-04-17 17:25 | RAD_ITS ---
PROCEDURE: CHEST 1 VIEW 04/17/2025 REASON FOR EXAM: NEURO DEFICIT, ACUTE, STROKE SUSPECTED TECHNIQUE: Frontal view of the chest. COMPARISON: 02/24/2025 FINDINGS: Hardware: Sternotomy wires are present. Heart: The heart size is normal. Lungs: The lungs are clear. No pneumothorax or pleural effusion. Bones: The bones are unremarkable. RAD/Chest 1 View IMPRESSION: No Acute Findings. Reading [facility]
--- NOTE | 2025-04-17 18:47 | HP.PCM.HOS_ITS ---
HPI - General General Date of Admission: 04/17/25 Date of Service: 04/17/25 Chief Complaint: Slurred speech. HPI Narrative The patient is an 85 y/o M w/ PMHx: Former tobacco use, Chronic macrocytic anemia, Cluster headaches HTN, HLD, GERD w/ Hx GI bleed, Anxiety and Depression, CAD s/p CABG x 4 following NSTEMI admission 02/24/2025 at [facility], PAF, BPH with obstructive pathology, Hypothyroidism, CKD stage II per GFR trending who presents to the [facility] ED on 04/17/2025 with history of onset at 1530 on day of presentation altered slurred speech with reportedly a similar episode following his CABG reportedly going into A-fib perioperatively with no other focal neurological deficits prompting immediate ED evaluation with event occurring approximately 1.5 hours prior to ED arrival. Patient reportedly had actually been doing a puzzle with his when he had onset of the altered speech and when he got up to stand he did have mild lightheadedness but that has subsided. Stroke alert initiated prior to ED arrival workup in the ED included T98.9, heart rate 63, BP 181/92, respiratory rate 16, 100% on room air, CBC with WC 8.4, Hgb 11.2, MCV 94.7, platelet 205 without marked shift, unremarkable coags, BMP with BUN/creatinine 19/1.01, GFR 73, glucose 124, troponin initial 26, EKG with A-fib, rate controlled with no acute evidence of ischemia, CT brain with no acute intracranial finding with chronic evolution of ischemic gliotic white matter changes, CTA head and neck with moderate plaque formation in bilateral carotid bulbs and internal carotid arteries with no hemodynamically significant stenosis or occlusion in the head or neck, chest x-ray with no acute cardiopulmonary findings. [facility] Medical History Cluster headache BPH (benign prostatic hyperplasia) CKD (chronic kidney disease), stage II NSTEMI (non-ST elevated myocardial infarction) Anemia Hypothyroidism Hyperlipidemia Coronary artery disease Essential (primary) hypertension Atrial fibrillation Home Medications ?Medication ?Instructions ?Recorded ?Last Taken ?Type tamsulosin 0.4 mg capsule 0.8 mg PO QHS prostate 11/0307/14/23 History atorvastatin 40 mg tablet 40 mg PO QHS cholesterol #0 tabs 02/24/25 Unknown Rx finasteride 5 mg tablet 5 mg PO QHS prostate 5 02/23/25 History levothyroxine 100 mcg tablet 100 mcg PO DAILY thyroid 02/24/25 02/24/25 History (Synthroid) metoprolol tartrate 25 mg tablet 25 mg PO BID BP #0 ta bs 02/24/25 Unknown Rx multivit,Ca,min-iron 8 mg-folic 1 tab PO DAILY supplem ent 02/24/25 02/24/25 History acid 200 mcg-lycopene 600 mcg tablet (Men's Daily Multivitamin) apixaban 5 mg tablet (Eliquis) 5 mg PO BID 30 days #60 tabs 03/30/25 Unknown Rx losartan 50 mg tablet 75 mg (1.5 x 50 mg) PO QHS 3 0 days 03/30/25 Unknown Rx #45 tabs mirtazapine 15 mg tablet 7.5 mg (1/2 x 15 mg) PO QHS 30 03/30/25 Unknown Rx days #15 tabs pantoprazole 40 mg tablet,delayed 40 mg PO BID 30 days #60 tabs 03/30/25 Unknown Rx release sucralfate 1 gram tablet 1 g PO BID 1 month #60 tabs 04/05/25 Unknown Rx clopidogrel 75 mg tablet 75 mg PO QHS 04/17/25 Unknow n History Allergy/AdvReac Type Severity Reaction Status Date / Time Penicillins Allergy NEEDS Verified 04/17/25 16:58 FOLLOW-UP fermented products Allergy NEEDS Uncoded 11/04/19 10:09 FOLLOW-UP Family History Mother Congestive heart failure Father Colon cancer Surgical History Status post four vessel coronary artery bypass History of hand surgery History of left breast biopsy History of colonoscopy History of meniscectomy of left knee Social History household members: spouse Smoking Status: Former smoker alcohol intake: never substance use type: does not use ROS ROS Narrative Admission Review of Systems: CONSTITUTIONAL: No weight loss, fever, chills, + weakness or fatigue. HEENT: + Transient lightheadedness. Eyes: No visual loss, blurred vision, double vision or yellow sclerae. Ears, Nose, Throat: No hearing loss, sneezing, congestion, runny nose or sore throat. SKIN: No rash or itching, lesions, wounds except occasional stage ecchymoses, abrasion, healing incisions. CARDIOVASCULAR: + Transient lightheadedness. No chest pain, chest pressure or chest discomfort, palpitations, edema, orthopnea, syncopal events. RESPIRATORY: No shortness of breath, cough or sputum, wheezing, hemoptysis. GASTROINTESTINAL: No anorexia, nausea, vomiting or diarrhea, abdominal pain, melena, BRBPR. GENITOURINARY: No dysuria, frequency, urgency or retention. NEUROLOGICAL: + Slurred speech/transient lightheadedness, chronic cluster headaches. No headache, syncope, paralysis, ataxia, numbness or tingling in the extremities, focal weakness, change in bowel or bladder control, seizure. MUSCULOSKELETAL: No muscle, back pain, joint pain or stiffness. HEMATOLOGIC: + Chronic anemia, easy bleeding/bruising LYMPHATICS: No enlarged nodes. No history of splenectomy. PSYCHIATRIC: + History of anxiety and depression. ENDOCRINOLOGIC: No reports of sweating, cold or heat intolerance. No polyuria or polydipsia. ALLERGIES: No history of asthma, hives, eczema or rhinitis. Patient's Goals Of Care . What would you like to achieve or improve as a result of your hospital stay?: R esolve slurred speech, assess risk factors for stroke Vital Signs Vital Signs Vital Signs: 04/17/25 16:56 04/17/25 17:02 04/17/25 17:12 Temperature 98.7 F Temperature Source Oral Pulse Rate 91 94 Respiratory Rate 16 16 Blood Pressure 162/135 H Blood Pressure Mean 144 Pulse Ox 99 99 100 Oxygen Delivery Method Room Air Room Air Room Air 04/17/25 17:12 04/17/25 17:45 04/17/25 18:00 Temperature 98.9 F 98.1 F 98 F Temperature Source Oral Oral Oral Pulse Rate 63 73 75 Respiratory Rate 16 23 H 23 H Blood Pressure 181/92 H 167/106 H 176/92 H Blood Pressure Mean 121 126 120 Pulse Ox 100 100 97 Oxygen Delivery Method Room Air Room Air Room Air 04/17/25 18:00 04/17/25 18:31 Temperature 98 F 97.8 F Temperature Source Oral Oral Pulse Rate 81 69 Respiratory Rate 15 13 Blood Pressure 176/92 H 197/94 H Blood Pressure Mean 120 128 Pulse Ox 100 97 Oxygen Delivery Method Room Air Room Air Weight Weight: 171 lb 4.787 oz Body Mass Index (BMI) 24.5 Physical Exam Narrative Physical Examination: General: Awake, alert, oriented x 3 and cooperative, seated upright in the ED bed, no acute distress, notes his speech is markedly improved, still mildly slurred but minimal. Skin: Normal color, normal turgor, no icterus, no cyanosis except occasional stage ecchymoses, abrasion, healing midline chest scar status post CABG. HEENT: AT/NC, EOMI, PERRLA, MMM, no carotid bruits or JVD noted. Lungs: Mildly diminished, greater bases, proper effort, no rales, ronchi or wheezing. Heart: Regular, rate controlled; no gallop, rub audible, healing midline chest scar status post CABG. Abdomen: Soft, NTTP, ND, normoactive BS, no HSM. Extremities: No cyanosis, no clubbing, no significant distal edema noted Neurological: Patient awake, alert, oriented as noted cognitive function intact; pupils equally reactive to light and accommodation, cranial nerves grossly normal, moving all 4 extremities, no focal deficits, strength preserved, finger- nose and [id number] appropriate, equivocal Babinski, sensation intact, speech very minimally altered, he notes he is speaking much more fluidly than he had been prior. Psychiatric: Affect appears mildly fatigued otherwise normal, no acute evidence of depressive or anxiety feelings but does have underlying history. Results Lab / Micro Data 04/17/25 17:00 04/17/25 17:00 Labs: Laboratory Results - last 24 hr 04/17/25 16:56: POC Glucose 108 H 04/17/25 17:00: WBC 8.4, RBC 3.59 L, Hgb 11.2 L, Hct 34.0 L, MCV 94.7 H, MCH 31.2, MCHC 32.9, RDW Std Deviation 47.0 H, RDW Coeff of Charles 13.5, Plt Count 205, MPV 9.8, Immature Gran % (Auto) 0.200, Neut % (Auto) 59.2, Lymph % (Auto) 27.0, [place] % (Auto) 7.8, Eos % (Auto) 4.8, Baso % (Auto) 1.0, Absolute Neuts (auto) 5.0, Absolute Lymphs (auto) 2.27, Nucleated RBC % 0, PT 14.9, INR 1.1, APTT 29.4, Sodium 138, Potassium 4.4, Chloride 103, Carbon Dioxide 26.9, Anion Gap 8, BUN 19, Creatinine 1.01, Estim Creat Clear Calc 55.21, Est GFR (MDRD) Non-Af 73, BUN/Creatinine Ratio 19.1, Glucose 124 H, Calcium 9.3, Troponin T High Sens 26 H D Imaging Radiology Impression Brain CT 04/17/25 16:58 IMPRESSION: 1. No intracranial hemorrhage. No mass effect or midline shift. 2. Chronic involutional and ischemic gliotic white matter changes. CT is insensitive for early evaluation of acute stroke. If there is clinical concern for acute ischemia, an MRI may be considered. Stroke Alert: The critical findings in the findings and impression above were relayed directly by me by telephone to Christoph Aguilar on 04/17/2025 at 5:23 pm EST with readback verification. Reading Location: [facility] Head/Neck CTA 04/17/25 16:59 IMPRESSION: 1. Moderate plaque formation of the bilateral carotid bulbs and internal carotid arteries. 2. No hemodynamically significant stenosis or occlusion in the head and neck vasculature. Reading Location: [facility] Chest X-Ray 04/17/25 17:25 IMPRESSION: No Acute Findings. Reading Location: [facility] Assessment & Plan Assessment/Plan (1) CVA (cerebral vascular accident): PLAN: Plan The patient is an 85 y/o M w/ PMHx: Former tobacco use, Chronic macrocytic anemia, Cluster headaches HTN, HLD, GERD w/ Hx GI bleed, Anxiety and Depression, CAD s/p CABG x 4 following NSTEMI admission 02/24/2025 at [facility], PAF, BPH with obstructive pathology, Hypothyroidism, CKD stage II per GFR trending who presents to the [facility] ED on 04/17/2025 with history of onset at 1530 on day of presentation altered slurred speech with reportedly a similar episode following his CABG reportedly going into A-fib perioperatively with no other focal neurological deficits prompting immediate ED evaluation with event occurring approximately 1.5 hours prior to ED arrival. #1. Slurred speech concerning for TIA/CVA with noted moderate plaque formation in bilateral carotid bulbs and internal carotid arteries: Will admit to PCU, will obtain MRI Brain, ECHO, PT/OT/Speech/Nutrition evaluation per protocol. Will allow permissive HTN, maintain on Plavix/Eliquis, continue statin w/ AM FLP, fall precautions. Mag, TSH, FLP, HgbA1c requested. Maintain on fall and aspiration precautions. Will continue stroke alert initiated neurology consultation. #2. CAD with mildly elevated cardiac enzymes and unclear significant: Status post CABG x 4 following NSTEMI admission [facility] 02/24/2025, will continue Eliquis, Plavix, statin, temporarily holding patient home metoprolol and losartan regimen for permissive hypertension, add back once appropriate. Will maintain on telemetry given #1 as noted, will continue cardiac enzyme trending initiated per ED, magnesium pending, FLP in AM. #3. PAF: Temporally holding metoprolol given permissive hypertension, add back once appropriate, continue home Eliquis regimen. #4. Hypertension: Will maintain permissive hypertension pending workup as noted with as needed agents per stroke protocol. #5. Hyperlipidemia: Continue home statin regimen. AM FLP. #6. Chronic anemia, currently macrocytic in appearance: Admission globin [place] 0.2, MCV 94.7, vacillates, hemoglobin baseline 9-10 more recently, continue to trend. #7. Chronic Kidney Disease Stage II per GFR trend: Admission BUN/Cr 19/1.01, GFR 73, baseline renal function 1.0-1.1, repeat BMP in AM. #8. Cluster headaches: Will temporarily hold home verapamil regimen, add back once appropriate given permissive hypertension. #9. Hypothyroidism: Will continue patient on levothyroxine regimen. #10. Anxiety and depression: Will continue patient home mirtazapine regimen. #11. BPH with obstructive pathology: Will continue patient home Flomax and finasteride regimen, monitor for retention. #12. GERD with history GI bleed: Will continue patient on PPI and sucralfate home regimen. #13. Former tobacco use: Encourage continued tobacco cessation. #14. DVT prophylaxis: Eliquis. #15 CODE status: Patient HCPEMLVIN is his and living will is currently in place. Discussed CODE status at length including difference between FULL code, DNR-CCA and DNR-CC status. Following discussions about the differences in these status, requested DNR CCA, discussed examples and situations and amenable to short-term intubation thus CODE STATUS DNR CCA with intubation. Advanced Care Planning Face to Face Time: 16 minutes. Charges/Coding Visit Charges Inpatient E&M: 43295 Init Hosp L3 Procedures Hospitalists Procedures: 48515 Advncd Care Plan 30 Min
[2025-04-17 19:14] LABS: Magnesium 2.3 mg/dL (1.5-2.2)
--- OUTSIDE RECORDS SUMMARY | 2025-04-17 19:34 | XMS RPT_ITS | CCD ---
Author Organization [facility] Care Team Providers Care Infrastructure Consultant Name Role Phone Jeremias Damico MD Primary Care Provider Jeremias Damico MD Primary Care Provider [phone] Boone GARNETT MECHANIC.Diana HENDRICKS Unavailable Unavail able Renaldo GARNETT MECHANIC.Zeeshan HENDRICKS Unavailable Boone GARNETT MECHANIC.Diana HENDRICKS Unavailable ELDERBROCK, JEREMIAS Primary Care Unavailable [...] Attending Unavailable SHAWN CHAU Referring Unavail able UYLISSA THORNTON Admitting Unavaila OMARI Cummings Attending Unavailable JOHN SAGASTUME Consulting Unavailable ЕКАТЕРИНА TAVERAS Primary Care Unavailab le Allergies Allergy Classification Reported Allergen(s) Allergy Type Date of Onset Reaction(s) Facility (20 sources) Cheese; Translations: [CHEESE (SEE VEGETABLE GUM)] Propensity to adverse reactions 5 [facility] Work Phone: (20 sources) Mold Extract; Translations: [MOLD] Drug Allergy 5 [facility] Work Phone: (20 sources) Penicillin G; Translations: [PENICILLIN G] Drug Allergy 5 [facility] (20 sources) Pollen; Translations: [POLLEN] Propensity to adverse reactions 5 [facility] Work Phone: (20 sources) dairy products [Other] Propensity to adverse reactions 1 Other: See Comments, Unknown [facility] (20 sources) Vinegar; Translations: [VINEGAR] Propensity to adverse reactions 5 [facility] Work Phone: (1 source) Penicillins Allergy to substance 4 NEEDS FOLLOW-UP [facility] (2 sources) fermented products; Translations: [fermented products] Allergy to substance 0 NEEDS FOLLOW-UP [facility] (16 sources) Milk; Translations: [MILK CONTAINING PRODUCTS (DAIRY)] Drug Intolerance 4 Intolerance [facility] (1 source) Penicillins Drug allergy (disorder) 5 [facility] Repository Medications Current Medications Medication Drug Class(es) Dates Sig (Normalized) Sig (Original) docusate sodium 100 mg oral capsule (20 sources) Start: 05-12-2007 docusate sodium([employer] LIQUI-GELS 100 MG CAP) Take by mouth once daily. 0 05/12/2007 Active Start: 05-12-2007 docusate sodiu m([employer] LIQUI-GELS 100 MG CAP) 3 per day [...] [Moles/Vol] -1 mmol/L Normal -2-0 [facility] Comment on above: Order Comment: Sharon shaw Type: BLOOD SPECIMEN Ordering Facility: [facility] Address: [address] [place] [address] Performed By: #### 3 016-3, 94759-9, HSTNT, 53018-0, 54039-5, 92511-6 #### [facility] CLIA [id number] [address] [place] [address] [place] Body temperature 98.78 [degF] Normal [facility] Comment on above: Order Comment: Sharon shaw Type: BLOOD SPECIMEN Ordering Facility: [facility] Address: [address] [place] [address] Performed By: #### 3 016-3, 45538-0, HSTNT, 65145-8, 99760-9, 37210-6 #### [facility] CLIA [id number] [address] Calcium.ionized (BldV) [Mass/Vol] 1.22 mmol/L Normal 1.08-1.30 [facility] Comment on above: Order Comment: Speci men Type: BLOOD SPECIMEN Ordering Facility: [facility] Address: [address] [place] [address] Performed By: #### 3 016-3, 28115-3, HSTNT, 88431-5, 95991-5, 29448-4 #### [facility] CLIA [id number] [address] Calcium.ionized adjusted to pH 7.4 (BldA) [Moles/Vol] 1.21 mmol/L Normal 1.08-1.30 [facility] Comment on above: Order Comment: Speci men Type: BLOOD SPECIMEN Ordering Facility: [facility] Address: [address] [place] [address] Performed By: #### 3 016-3, 53102-6, HSTNT, 71354-7, 03764-6, 95964-7 #### [facility] CLIA [id number] [address] OF [facility] Carboxyhemoglobin (BldA) [Mass fraction] 1.1 % Normal 0.0-2.0 [facility] Comment on above: Order Comment: Speci men Type: BLOOD SPECIMEN Ordering Facility: [facility] Address: [address] [place] [address] Result Comment: Carb oxyhemoglobin Reference Range for Smokers: 2.0-8.0% Performed By: #### 3 016-3, 47575-6, HSTNT, 19144-3, 11126-5, 51597-2 #### [facility] CLIA [id number] [address] [place] Chloride [Moles/Vol] 100 mmol/L Normal 97-105 [facility] Comment on above: Order Comment: Speci men Type: BLOOD SPECIMEN Ordering Facility: [facility] Address: [address] [place] [address] Performed By: #### 3 016-3, 49043-2, HSTNT, 40403-9, 01384-2, 48885-5 #### [facility] CLIA [id number] [address] OF [facility] CO2 (Bld) [Partial pressure] 40 mm Hg Normal 36-46 [facility] Comment on above: Order Comment: Speci men Type: BLOOD SPECIMEN Ordering Facility: [facility] Address: [address] [place] [address] Performed By: #### 3 016-3, 92582-6, HSTNT, 32579-3, 79702-7, 06866-1 #### [facility] CLIA [id number] [address] CO2 adjusted to patient's actual temperature (Bld) [Partial pressure] 40 mmHg Normal 36-46 [facility] Comment on above: Order Comment: Speci men Type: BLOOD SPECIMEN Ordering Facility: [facility] Address: [address] [place] [address] Performed By: #### 3 016-3, 41162-3, HSTNT, 80795-3, 16024-7, 83916-3 #### [facility] CLIA [id number] [address] [place] Glucose [Mass/Vol] 91 mg/dL Normal 60-105 [facility] Comment on above: Order Comment: Speci men Type: BLOOD SPECIMEN Ordering Facility: [facility] Address: [address] [place] [address] Performed By: #### 3 016-3, 24900-3, HSTNT, 85750-5, 16147-5, 90547-8 #### [facility] CLIA [id number] [address] [place] HCO3 (Bld) [Moles/Vol] 24 mmol/L Normal 22-26 [facility] Comment on above: Order Comment: Speci men Type: BLOOD SPECIMEN Ordering Facility: [facility] Address: [address] [place] [address] Performed By: #### 3 016-3, 06099-7, HSTNT, 69387-5, 19491-6, 95464-1 #### [facility] CLIA [id number] [address] [place] Hematocrit (Bld) [Volume fraction] 35.0 % Low 39.0-51.0 [facility] Comment on above: Order Comment: Speci men Type: BLOOD SPECIMEN Ordering Facility: [facility] Address: [address] [place] [address] Performed By: #### 3 016-3, 81199-2, HSTNT, 87537-9, 03657-1, 88897-7 #### [facility] CLIA [id number] [address] [place] [address] [place] Hemoglobin (Bld) [Mass/Vol] 11.3 g/dL Low 13.0-17.0 [facility] Comment on above: Order Comment: Speci men Type: BLOOD SPECIMEN Ordering Facility: [facility] Address: [address] [place] [address] Performed By: #### 3 016-3, 18077-5, HSTNT, 42901-1, 22733-8, 05448-7 #### [facility] CLIA [id number] [address] [place] [address] [place] Lactate [Moles/Vol] 0.6 mmol/L Normal 0.5-2.2 [facility] Comment on above: Order Comment: Speci men Type: BLOOD SPECIMEN Ordering Facility: [facility] Address: [address] [place] [address] Performed By: #### 3 016-3, 32448-1, HSTNT, 08497-4, 96589-3, 49909-9 #### [facility] CLIA [id number] [address] [place] LITERS 3 Liters/min Normal [facility] Comment on above: Order Comment: Speci men Type: BLOOD SPECIMEN Ordering Facility: [facility] Address: [address] [place] [address] Performed By: #### 3 016-3, 80417-7, HSTNT, 35631-4, 33165-1, 79010-1 #### [facility] CLIA [id number] [address] [place] Methemoglobin (Bld) [Mass fraction] 1.0 % Normal 0.0-1.5 [facility] Comment on above: Order Comment: Speci men Type: BLOOD SPECIMEN Ordering Facility: [facility] Address: [address] [place] [address] Performed By: #### 3 016-3, 80889-5, HSTNT, 22423-3, 43057-7, 91424-5 #### [facility] CLIA [id number] [address] [place] O2 THERAPY NC = Nasal Cannula Normal [facility] Comment on above: Order Comment: Speci men Type: BLOOD SPECIMEN Ordering Facility: [facility] Address: [address] [place] [address] Performed By: #### 3 016-3, 99933-7, HSTNT, 99097-6, 99010-2, 42404-3 #### [facility] CLIA [id number] [address] [place] Oxygen (Bld) [Partial pressure] 86 mm Hg Normal 85-95 [facility] Comment on above: Order Comment: Speci men Type: BLOOD SPECIMEN Ordering Facility: [facility] Address: [address] [place] [address] Performed By: #### 3 016-3, 36396-8, HSTNT, 59139-5, 36738-9, 12195-1 #### [facility] CLIA [id number] [address] [place] Oxygen adjusted to patient's actual temperature (Bld) [Partial pressure] 87 mmHg Normal 85-95 [facility] Comment on above: Order Comment: Speci men Type: BLOOD SPECIMEN Ordering Facility: [facility] Address: [address] [place] [address] Performed By: #### 3 016-3, 62688-9, HSTNT, 85640-6, 15154-7, 85115-9 #### [facility] CLIA [id number] [address] STATES OF [facility] Oxyhemoglobin (BldA) [Mass fraction] 95 % Normal 95-98 [facility] Comment on above: Order Comment: Speci men Type: BLOOD SPECIMEN Ordering Facility: [facility] Address: [address] [place] [address] Performed By: #### 3 016-3, 47040-4, HSTNT, 12105-2, 58440-9, 64011-6 #### [facility] CLIA [id number] [address] STATES OF [facility] pH (Bld) 7.40 [pH] Normal 7.35-7.45 [facility] Comment on above: Order Comment: Speci men Type: BLOOD SPECIMEN Ordering Facility: [facility] Address: [address] [place] [address] Performed By: #### 3 016-3, 12626-3, HSTNT, 36723-6, 87217-5, 61577-6 #### [facility] CLIA [id number] [address] STATES OF [facility] pH adjusted to patient's actual temperature (Bld) 7.40 Normal 7.35-7.45 [facility] Comment on above: Order Comment: Speci men Type: BLOOD SPECIMEN Ordering Facility: [facility] Address: [address] [place] [address] Performed By: #### 3 016-3, 65036-3, HSTNT, 91205-4, 13738-7, 93951-5 #### [facility] CLIA [id number] [address] [place] [address] [place] Potassium [Moles/Vol] 3.9 mmol/L Normal 3.5-5.0 [facility] Comment on above: Order Comment: Speci men Type: BLOOD SPECIMEN Ordering Facility: [facility] Address: [address] [place] [address] Performed By: #### 3 016-3, 53650-7, HSTNT, 66783-3, 62519-3, 20017-9 #### [facility] CLIA [id number] [address] [place] [address] [place] Sodium [Moles/Vol] 130 mmol/L Low 136-144 [facility] Comment on above: Order Comment: Speci men Type: BLOOD SPECIMEN Ordering Facility: [facility] Address: [address] [place] [address] Performed By: #### 3 016-3, 70698-7, HSTNT, 84467-3, 46603-7, 34754-2 #### [facility] CLIA [id number] [address] [place] [address] [place] Basic metabolic 2000 panelon 03-03-2025 Anion gap [Moles/Vol] 9 mmol/L Normal 8-15 [facility] Comment on above: Order Comment: Speci men Type: BLOOD SPECIMEN Ordering Facility: [facility] Address: [address] [place] [address] Performed By: #### 3 016-3, 81721-2, HSTNT, 56726-5, 56648-8, 02353-0 #### [facility] CLIA [id number] [address] [place] [address] [place] Calcium [Mass/Vol] 8.4 mg/dL Low 8.5-10.2 [facility] Comment on above: Order Comment: Speci men Type: BLOOD SPECIMEN Ordering Facility: [facility] Address: [address] [place] [address] Performed By: #### 3 016-3, 66314-5, HSTNT, 42137-7, 92683-0, 79025-4 #### [facility] CLIA [id number] [address] [place] [address] [place] Chloride [Moles/Vol] 101 mmol/L Normal 98-107 [facility] Comment on above: Order Comment: Speci men Type: BLOOD SPECIMEN Ordering Facility: [facility] Address: [address] [place] [address] Performed By: #### 3 016-3, 41593-8, HSTNT, 06040-3, 14796-5, 94426-3 #### [facility] CLIA [id number] [address] [place] [address] [place] CO2 [Moles/Vol] 23 mmol/L Normal 22-30 [facility] Comment on above: Order Comment: Speci men Type: BLOOD SPECIMEN Ordering Facility: [facility] Address: [address] [place] [address] Performed By: #### 3 016-3, 93684-3, HSTNT, 88711-3, 89911-1, 69471-3 #### [facility] CLIA [id number] [address] [place] [address] [place] Creatinine [Mass/Vol] 0.85 mg/dL Normal 0.73-1.22 [facility] Comment on above: Order Comment: Speci men Type: BLOOD SPECIMEN Ordering Facility: [facility] Address: [address] [place] [address] Performed By: #### 3 016-3, 73773-4, HSTNT, 75971-4, 51634-6, 12878-0 #### [facility] CLIA [id number] [address] [place] [address] [place] eGFRcr SerPlBld CKD-EPI 2020 85 mL/min/1.73m??? Normal >=60 [facility] Comment on above: Order Comment: Speci men Type: BLOOD SPECIMEN Ordering Facility: [facility] Address: [address] [place] [address] Result Comment: Monie mated Glomerular Filtration Rate [...] actual GFR. Performed By: #### 3 016-3, 29046-5, HSTNT, 13842-2, 23356-0, 84119-1 #### [facility] CLIA [id number] [address] [place] [address] [place] Glucose [Mass/Vol] 93 mg/dL Normal 74-99 [facility] Comment on above: Order Comment: Sharon shaw Type: BLOOD SPECIMEN Ordering Facility: [facility] Address: [address] [place] [address] Result Comment: The [place] [employer] (ADA) provides guidance for cutoff [...] Standards of Medical Care in Diabetes 2016, [place] [employer]. Diabetes Care. 2016.39(Suppl 1). Performed By: #### 3 016-3, 05617-3, HSTNT, 80383-0, 22376-3, 16886-3 #### [facility] CLIA [id number] [address] [place] [address] [place] Potassium [Moles/Vol] 4.1 mmol/L Normal 3.7-5.1 [facility] Comment on above: Order Comment: Sharon shaw Type: BLOOD SPECIMEN Ordering Facility: [facility] Address: [address] [place] [address] Performed By: #### 3 016-3, 37238-8, HSTNT, 24336-9, 92233-1, 93437-0 #### [facility] CLIA [id number] [address] [place] Sodium [Moles/Vol] 133 mmol/L Low 136-144 [facility] Comment on above: Order Comment: Speci men Type: BLOOD SPECIMEN Ordering Facility: [facility] Address: [address] [place] [address] Performed By: #### 3 016-3, 98669-0, HSTNT, 12116-4, 14441-4, 60307-8 #### [facility] CLIA [id number] [address] [place] [address] [place] Urea nitrogen [Mass/Vol] 11 mg/dL Normal 9-24 [facility] Comment on above: Order Comment: Speci men Type: BLOOD SPECIMEN Ordering Facility: [facility] Address: [address] [place] [address] Performed By: #### 3 016-3, 86760-5, HSTNT, 60274-0, 41736-7, 53917-1 #### [facility] CLIA [id number] [address] [place] [address] [place] CBC panel Auto (Bld)on 03-03 Erythrocyte distribution width (RBC) [Ratio] 12.4 % Normal 11.5-15.0 [facility] Comment on above: Order Comment: Speci men Type: BLOOD SPECIMEN Ordering Facility: [facility] Address: [address] [place] [address] Performed By: #### 3 016-3, 32610-8, HSTNT, 47894-8, 26240-8, 72439-3 #### [facility] CLIA [id number] [address] [place] Hematocrit (Bld) [Volume fraction] 31.6 % Low 39.0-51.0 [facility] Comment on above: Order Comment: Speci men Type: BLOOD SPECIMEN Ordering Facility: [facility] Address: [address] [place] [address] Performed By: #### 3 016-3, 02846-0, HSTNT, 51944-5, 08771-8, 08437-6 #### [facility] CLIA [id number] [address] STATES OF [facility] Hemoglobin (Bld) [Mass/Vol] 10.9 g/dL Low 13.0-17.0 [facility] Comment on above: Order Comment: Speci men Type: BLOOD SPECIMEN Ordering Facility: [facility] Address: [address] [place] [address] Performed By: #### 3 016-3, 00038-3, HSTNT, 93507-4, 46193-1, 36631-0 #### [facility] CLIA [id number] [address] MCH (RBC) [Entitic mass] 31.5 pg Normal 26.0-34.0 [facility] Comment on above: Order Comment: Speci men Type: BLOOD SPECIMEN Ordering Facility: [facility] Address: [address] [place] [address] Performed By: #### 3 016-3, 89235-5, HSTNT, 35014-6, 79653-3, 00460-3 #### [facility] CLIA [id number] [address] STATES OF [facility] MCHC (RBC) [Mass/Vol] 34.5 g/dL Normal 30.5-36.0 [facility] Comment on above: Order Comment: Speci men Type: BLOOD SPECIMEN Ordering Facility: [facility] Address: [address] [place] [address] Performed By: #### 3 016-3, 95019-5, HSTNT, 36038-8, 78588-6, 59791-6 #### [facility] CLIA [id number] [address] OF [facility] MCV (RBC) [Entitic vol] 91.3 fL Normal 80.0-100.0 [facility] Comment on above: Order Comment: Speci men Type: BLOOD SPECIMEN Ordering Facility: [facility] Address: [address] [place] [address] Performed By: #### 3 016-3, 31887-7, HSTNT, 90955-7, 90209-8, 31393-6 #### [facility] CLIA [id number] [address] [place] Nucleated RBC (Bld) [#/Vol] 10*3/uL Normal <0.01 [facility] Comment on above: Order Comment: Speci men Type: BLOOD SPECIMEN Ordering Facility: [facility] Address: [address] [place] [address] Performed By: #### 3 016-3, 83132-7, HSTNT, 82215-9, 80399-3, 15392-4 #### [facility] CLIA [id number] [address] [place] Platelet mean volume (Bld) [Entitic vol] 10.3 fL Normal 9.0-12.7 [facility] Comment on above: Order Comment: Speci men Type: BLOOD SPECIMEN Ordering Facility: [facility] Address: [address] [place] [address] Performed By: #### 3 016-3, 82640-0, HSTNT, 16988-8, 89370-8, 73904-7 #### [facility] CLIA [id number] [address] [place] Platelets (Bld) [#/Vol] 148 10*3/uL Low 150-400 [facility] Comment on above: Order Comment: Speci men Type: BLOOD SPECIMEN Ordering Facility: [facility] Address: [address] [place] [address] Performed By: #### 3 016-3, 88686-3, HSTNT, 47646-0, 10853-9, 11023-5 #### [facility] CLIA [id number] [address] [place] RBC (Bld) [#/Vol] 3.46 10*6/uL Low 4.20-6.00 [facility] Comment on above: Order Comment: Speci men Type: BLOOD SPECIMEN Ordering Facility: [facility] Address: [address] [place] [address] Performed By: #### 3 016-3, 37464-5, HSTNT, 28206-9, 19661-6, 62759-3 #### [facility] CLIA [id number] [address] [place] [address] [place] WBC (Bld) [#/Vol] 13.46 10*3/uL High 3.70-11.00 [facility] Comment on above: Order Comment: Speci men Type: BLOOD SPECIMEN Ordering Facility: [facility] Address: [address] [facility] [place] [address] Performed By: #### 3 016-3, 07194-9, HSTNT, 90965-9, 10090-3, 36441-5 #### [facility] CLIA [id number] [address] STATES OF [facility] ECG COMPLETEon 03-03-2025 ECG COMPLETE Ventricular Rate : 6 9 BPM Atrial Rate : 69 BPM P-R Interval : 160 ms QRS Duration : 88 ms Q-T Interval : 424 ms QTC Calculation(Bazett) : 454 ms Calculated P [place] : 55 degrees Calculated R [place] : 4 degrees Calculated T [place] : -10 degrees NORMAL SINUS RHYTHM WITH SINUS ARRHYTHMIA NONSPECIFIC T WAVE ABNORMALITY ABNORMAL ECG WHEN COMPARED WITH ECG OF 02-Mar-2025 14:10, SINUS RHYTHM HAS REPLACED ATRIAL FIBRILLATION NON-SPECIFIC CHANGE IN ST SEGMENT IN ANTERIOR LEADS NONSPECIFIC T WAVE ABNORMALITY NOW EVIDENT IN INFERIOR LEADS QT HAS SHORTENED Confirmed by MD HOPPER VINAY ([id number]) on 03/03/2025 12:33:00 PM NAME : ELSA PALACIO PID : [id number] : 1940 Gender : Male Race : ORD : [id number] Procedure Date : Mar 03 2025 04:23:56 [...] HAS SHORTENED Confirmed by MD HOPPER VINAY ([id number]) on 03/03/2025 12:33:00 PM Test Reason : Post-OP Location : [address] : [place] [address] Overread By : MD HOPPER VINAY Edited By : MD HOPPER VINAY Referred By : SHAWN CHAU Acquired by : ALLISON LORD [facility] Magnesium SerPl-mCncon 03-03 Magnesium [Mass/Vol] 1.7 mg/dL Normal 1.7-2.3 [facility] Comment on above: Order Comment: Speci men Type: BLOOD SPECIMEN Ordering Facility: [facility] Address: [facility] [place] [address] Performed By: #### 3 016-3, 35992-0, HSTNT, 48843-9, 55888-9, 85124-2 #### [facility] CLIA [id number] [address] THERAPY NTon 03-03-2025 THERAPY NT HNO ID: [id number] Author: OSCAR BHAKTA, PT Service: Physical Therapy Author Type: Physical Therapist Type: Therapy (PT/OT/Speech/Resp) Filed: 03/03/2025 14:34 Note Text: Physical Therapy Evaluation Summary SERVICE DATE: 03/03/2025 SERVICE TIME: 1014 to 1037 ROOM: [place] [id number] PT 6 Clicks Score: 18 DISCHARGE RECOMMENDATIONS [...] HOSPITAL COURSE Pt is a transfer from [facility]. Pt c/o chest pain while mowing [...] and signs-other TREATMENT INTERVENTIONS Evaluation; Therapeutic Activity (10919) $ Evaluation-Moderate (78005) Billed Units: 1 unit Therapeutic Activity (10587) Treatment Minutes: 8 $ Therapeutic Activity (52187) Billed Units: 1 unit Cues for safe [...] (more content not included)... Normal [facility] XR CHEST 1V FRONTALon 2024 XR CHEST [...] median sternotomy wires and sternal plate. Overlying neck skewer leads. Lungs and pleura: No pneumothorax. Diminished aeration remains at both lung bases due to postoperative atelectasis and probable pleural effusion. Cardiomediastinal silhouette: Stable. Other: No significant additional findings. IMPRESSION: Status post extubation. Social Economist: GAEL Transcribe Date/Time: Mar 03 2025 6:40A Dictated by : NEIL CARTER MD This examination was interpreted and the report reviewed and electronically signed by: NEIL CARTER MD on Mar 03 2025 6:41AM EST [id number] N [facility] ANES POSTPROC EVALon 025 ANES POSTPROC EVAL HNO ID: [id number] Author: MOLINA PALOMO MD Service: Anesthesiology Author Type: Physician Type: Anesthesia Postprocedure Evaluation Filed: 03/02/2025 17:14 Note Text: POST ANESTHESIA EVALUATION NOTE : 1940 Procedure Summary Date: 03/02/25 Room / Location: [place] Anesthesia Start: 706 Anesthesia Stop: 1412 [...] March 02, 2025 TIME: 5:13 PM CSN: [id number] [facility] ANES PRE-OPon 03-02-2025 ANES PRE-OP HNO ID: [id number] Author: BROOKS MONTEJO MD Service: Anesthesiology Author Type: Physician Type: Anesthesia Preprocedure Evaluation Filed: 03/02/2025 07:01 Note Text: ANESTHESIOLOGY DAY OF SURGERY NOTE : 1940 Procedure Information Date/Time: 03/02/25714 Procedure: 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 Patient / Responsible Alliance Party agrees to proceed: yes Patient / Surrogate [...] (more content not included)... Normal [facility] ARTERIAL BLOOD GASESon 03-02 Base deficit (BldA) [Moles/Vol] -1 mmol/L Normal -2-0 [facility] Comment on above: Order Comment: Speci men Type: BLOOD SPECIMEN Ordering Facility: [facility] Address: [address] [place] [address] Performed By: #### 3 016-3, 84679-1, HSTNT, 17626-8, 90136-7, 02362-1 #### [facility] CLIA [id number] [address] [place] [address] [place] Body temperature 98.78 [degF] Normal [facility] Comment on above: Order Comment: Speci men Type: BLOOD SPECIMEN Ordering Facility: [facility] Address: [address] [place] [address] Performed By: #### 3 016-3, 09432-4, HSTNT, 05872-5, 73037-3, 10474-3 #### [facility] CLIA [id number] [address] Calcium.ionized (BldV) [Mass/Vol] 1.23 mmol/L Normal 1.08-1.30 [facility] Comment on above: Order Comment: Speci men Type: BLOOD SPECIMEN Ordering Facility: [facility] Address: [address] [place] [address] Performed By: #### 3 016-3, 80553-5, HSTNT, 48195-7, 53483-4, 64619-6 #### [facility] CLIA [id number] [address] Calcium.ionized adjusted to pH 7.4 (BldA) [Moles/Vol] 1.21 mmol/L Normal 1.08-1.30 [facility] Comment on above: Order Comment: Speci men Type: BLOOD SPECIMEN Ordering Facility: [facility] Address: [address] [place] [address] Performed By: #### 3 016-3, 91115-3, HSTNT, 66102-3, 12954-5, 02548-9 #### [facility] CLIA [id number] [address] Carboxyhemoglobin (BldA) [Mass fraction] 1.1 % Normal 0.0-2.0 [facility] Comment on above: Order Comment: Speci men Type: BLOOD SPECIMEN Ordering Facility: [facility] Address: [address] [place] [address] Result Comment: Carb oxyhemoglobin Reference Range for Smokers: 2.0-8.0% Performed By: #### 3 016-3, 63765-5, HSTNT, 81379-9, 97395-2, 68439-4 #### [facility] CLIA [id number] [address] [place] Chloride [Moles/Vol] 102 mmol/L Normal 97-105 [facility] Comment on above: Order Comment: Speci men Type: BLOOD SPECIMEN Ordering Facility: [facility] Address: [address] [place] [address] Performed By: #### 3 016-3, 51019-5, HSTNT, 44303-9, 84228-1, 87940-9 #### [facility] CLIA [id number] [address] [place] CO2 (Bld) [Partial pressure] 41 mm Hg Normal 36-46 [facility] Comment on above: Order Comment: Speci men Type: BLOOD SPECIMEN Ordering Facility: [facility] Address: [address] [place] [address] Performed By: #### 3 016-3, 22843-4, HSTNT, 68854-0, 87178-6, 47753-0 #### [facility] CLIA [id number] [address] STATES [place] [facility] CO2 adjusted to patient's actual temperature (Bld) [Partial pressure] 41 mmHg Normal 36-46 [facility] Comment on above: Order Comment: Speci men Type: BLOOD SPECIMEN Ordering Facility: [facility] Address: [address] [place] [address] Performed By: #### 3 016-3, 65301-8, HSTNT, 14362-7, 47301-2, 12844-9 #### [facility] CLIA [id number] [address] [place] [address] [place] Glucose [Mass/Vol] 120 mg/dL High 60-105 [facility] Comment on above: Order Comment: Speci men Type: BLOOD SPECIMEN Ordering Facility: [facility] Address: [address] [place] [address] Performed By: #### 3 016-3, 69644-4, HSTNT, 63291-9, 87944-7, 84932-0 #### [facility] CLIA [id number] [address] [place] HCO3 (Bld) [Moles/Vol] 23 mmol/L Normal 22-26 [facility] Comment on above: Order Comment: Speci men Type: BLOOD SPECIMEN Ordering Facility: [facility] Address: [address] [place] [address] Performed By: #### 3 016-3, 35014-5, HSTNT, 67685-6, 50763-9, 50851-0 #### [facility] CLIA [id number] [address] [place] Hematocrit (Bld) [Volume fraction] 35.0 % Low 39.0-51.0 [facility] Comment on above: Order Comment: Speci men Type: BLOOD SPECIMEN Ordering Facility: [facility] Address: [address] [place] [address] Performed By: #### 3 016-3, 99774-9, HSTNT, 42722-1, 29497-0, 77741-3 #### [facility] CLIA [id number] [address] STATES OF [facility] Hemoglobin (Bld) [Mass/Vol] 11.3 g/dL Low 13.0-17.0 [facility] Comment on above: Order Comment: Speci men Type: BLOOD SPECIMEN Ordering Facility: [facility] Address: [address] [place] [address] Performed By: #### 3 016-3, 95465-3, HSTNT, 87146-5, 04789-3, 58020-7 #### [facility] CLIA [id number] [address] [place] Lactate [Moles/Vol] 0.6 mmol/L Normal 0.5-2.2 [facility] Comment on above: Order Comment: Speci men Type: BLOOD SPECIMEN Ordering Facility: [facility] Address: [address] [place] [address] Performed By: #### 3 016-3, 02643-9, HSTNT, 86314-8, 89319-1, 82433-0 #### [facility] CLIA [id number] [address] [place] LITERS 4 Liters/min Normal [facility] Comment on above: Order Comment: Speci men Type: BLOOD SPECIMEN Ordering Facility: [facility] Address: [address] [place] [address] Performed By: #### 3 016-3, 07572-0, HSTNT, 44485-2, 10135-6, 37359-4 #### [facility] CLIA [id number] [address] [place] Methemoglobin (Bld) [Mass fraction] 1.0 % Normal 0.0-1.5 [facility] Comment on above: Order Comment: Speci men Type: BLOOD SPECIMEN Ordering Facility: [facility] Address: [address] [place] [address] Performed By: #### 3 016-3, 88091-0, HSTNT, 55782-1, 59591-1, 01896-2 #### [facility] CLIA [id number] [address] O2 THERAPY NC = Nasal Cannula Normal [facility] Comment on above: Order Comment: Speci men Type: BLOOD SPECIMEN Ordering Facility: [facility] Address: [address] [place] [address] Performed By: #### 3 016-3, 15116-0, HSTNT, 75910-8, 05346-2, 15107-4 #### [facility] CLIA [id number] [address] [place] Oxygen (Bld) [Partial pressure] 93 mm Hg Normal 85-95 [facility] Comment on above: Order Comment: Speci men Type: BLOOD SPECIMEN Ordering Facility: [facility] Address: [address] [place] [address] Performed By: #### 3 016-3, 16458-6, HSTNT, 88189-1, 62685-0, 61584-7 #### [facility] CLIA [id number] [address] [place] Oxygen adjusted to patient's actual temperature (Bld) [Partial pressure] 93 mmHg Normal 85-95 [facility] Comment on above: Order Comment: Speci men Type: BLOOD SPECIMEN Ordering Facility: [facility] Address: [address] [place] [address] Performed By: #### 3 016-3, 92284-6, HSTNT, 07776-6, 85893-0, 33149-9 #### [facility] CLIA [id number] [address] [place] [address] [place] Oxyhemoglobin (BldA) [Mass fraction] 95 % Normal 95-98 [facility] Comment on above: Order Comment: Speci men Type: BLOOD SPECIMEN Ordering Facility: [facility] Address: [address] [place] [address] Performed By: #### 3 016-3, 83080-5, HSTNT, 92644-9, 81376-4, 67332-8 #### [facility] CLIA [id number] [address] [place] [address] [place] pH (Bld) 7.38 [pH] Normal 7.35-7.45 [facility] Comment on above: Order Comment: Speci men Type: BLOOD SPECIMEN Ordering Facility: [facility] Address: [address] [place] [address] Performed By: #### 3 016-3, 42472-9, HSTNT, 85276-8, 76321-7, 91630-7 #### [facility] CLIA [id number] [address] [place] [address] [place] pH adjusted to patient's actual temperature (Bld) 7.38 Normal 7.35-7.45 [facility] Comment on above: Order Comment: Speci men Type: BLOOD SPECIMEN Ordering Facility: [facility] Address: [address] [place] [address] Performed By: #### 3 016-3, 48100-7, HSTNT, 50281-3, 19309-0, 09491-0 #### [facility] CLIA [id number] [address] [place] [address] [place] Potassium [Moles/Vol] 4.4 mmol/L Normal 3.5-5.0 [facility] Comment on above: Order Comment: Speci men Type: BLOOD SPECIMEN Ordering Facility: [facility] Address: [address] [place] [address] Performed By: #### 3 016-3, 68610-8, HSTNT, 94463-9, 89814-5, 78439-2 #### [facility] CLIA [id number] [address] [place] [address] [place] Sodium [Moles/Vol] 130 mmol/L Low 136-144 [facility] Comment on above: Order Comment: Speci men Type: BLOOD SPECIMEN Ordering Facility: [facility] Address: [address] [place] [address] Performed By: #### 3 016-3, 38948-4, HSTNT, 31379-9, 92250-5, 83244-8 #### [facility] CLIA [id number] [address] [place] [address] [place] Base deficit (BldA) [Moles/Vol] -3 mmol/L Low -2-0 [facility] Comment on above: Order Comment: Speci men Type: BLOOD SPECIMEN Ordering Facility: [facility] Address: [address] [place] [address] Performed By: #### 3 016-3, 03922-8, HSTNT, 05930-6, 76876-0, 13367-8 #### [facility] CLIA [id number] 1 [place] [address] [place] Body temperature 98.6 [degF] Normal [facility] Comment on above: Order Comment: Speci men Type: BLOOD SPECIMEN Ordering Facility: [facility] Address: [address] [place] [address] Performed By: #### 3 016-3, 58974-3, HSTNT, 18547-2, 26467-5, 35948-8 #### [facility] CLIA [id number] [address] [place] [address] [place] Calcium.ionized (BldV) [Mass/Vol] 1.33 mmol/L High 1.08-1.30 [facility] Comment on above: Order Comment: Speci men Type: BLOOD SPECIMEN Ordering Facility: [facility] Address: [address] [place] [address] Performed By: #### 3 016-3, 73212-5, HSTNT, 75285-1, 12325-8, 21541-3 #### [facility] CLIA [id number] [address] [place] [address] [place] [facility] Calcium.ionized adjusted to pH 7.4 (BldA) [Moles/Vol] 1.29 mmol/L Normal 1.08-1.30 [facility] Comment on above: Order Comment: Speci men Type: BLOOD SPECIMEN Ordering Facility: [facility] Address: [address] [place] [address] Performed By: #### 3 016-3, 04486-3, HSTNT, 71147-3, 90909-2, 08297-7 #### [facility] CLIA [id number] [address] [place] Carboxyhemoglobin (BldA) [Mass fraction] 0.9 % Normal 0.0-2.0 [facility] Comment on above: Order Comment: Speci men Type: BLOOD SPECIMEN Ordering Facility: [facility] Address: [address] [place] [address] Result Comment: Carb oxyhemoglobin Reference Range for Smokers: 2.0-8.0% Performed By: #### 3 016-3, 80458-6, HSTNT, 00024-8, 62512-2, 74561-7 #### [facility] CLIA [id number] [address] [place] [address] [place] Chloride [Moles/Vol] 103 mmol/L Normal 97-105 [facility] Comment on above: Order Comment: Speci men Type: BLOOD SPECIMEN Ordering Facility: [facility] Address: [address] [place] [address] Performed By: #### 3 016-3, 90776-4, HSTNT, 89306-1, 80546-9, 77233-7 #### [facility] CLIA [id number] [address] [place] [address] [place] CO2 (Bld) [Partial pressure] 44 mm Hg Normal 36-46 [facility] Comment on above: Order Comment: Speci men Type: BLOOD SPECIMEN Ordering Facility: [facility] Address: [address] [place] [address] Performed By: #### 3 016-3, 58502-5, HSTNT, 31931-8, 20718-7, 74338-6 #### [facility] CLIA [id number] [address] [place] [address] [place] Glucose [Mass/Vol] 148 mg/dL High 60-105 [facility] Comment on above: Order Comment: Speci men Type: BLOOD SPECIMEN Ordering Facility: [facility] Address: [address] [place] [address] Performed By: #### 3 016-3, 75043-4, HSTNT, 40632-6, 42228-1, 77612-1 #### [facility] CLIA [id number] [address] [place] [address] [place] HCO3 (Bld) [Moles/Vol] 23 mmol/L Normal 22-26 [facility] Comment on above: Order Comment: Speci men Type: BLOOD SPECIMEN Ordering Facility: [facility] Address: [address] [place] [address] Performed By: #### 3 016-3, 26749-9, HSTNT, 31674-1, 35140-2, 30298-7 #### [facility] CLIA [id number] [address] [place] [address] [place] Hematocrit (Bld) [Volume fraction] 35.9 % Low 39.0-51.0 [facility] Comment on above: Order Comment: Speci men Type: BLOOD SPECIMEN Ordering Facility: [facility] Address: [address] [place] [address] Performed By: #### 3 016-3, 74805-8, HSTNT, 27536-1, 94678-1, 25317-3 #### [facility] CLIA [id number] [address] Hemoglobin (Bld) [Mass/Vol] 11.7 g/dL Low 13.0-17.0 [facility] Comment on above: Order Comment: Speci men Type: BLOOD SPECIMEN Ordering Facility: [facility] Address: [address] [place] [address] Performed By: #### 3 016-3, 55980-3, HSTNT, 78124-7, 17503-2, 86678-8 #### [facility] CLIA [id number] [address] [place] Lactate [Moles/Vol] 3.0 mmol/L High 0.5-2.2 [facility] Comment on above: Order Comment: Speci men Type: BLOOD SPECIMEN Ordering Facility: [facility] Address: [address] [place] [address] Performed By: #### 3 016-3, 89690-9, HSTNT, 24155-4, 54755-8, 68623-5 #### [facility] CLIA [id number] [address] [place] Methemoglobin (Bld) [Mass fraction] 1.0 % Normal 0.0-1.5 [facility] Comment on above: Order Comment: Speci men Type: BLOOD SPECIMEN Ordering Facility: [facility] Address: [address] [place] [address] Performed By: #### 3 016-3, 13728-4, HSTNT, 66690-4, 30864-2, 38408-3 #### [facility] CLIA [id number] [address] [place] O2 THERAPY VENT=Ventilator Normal [facility] Comment on above: Order Comment: Speci men Type: BLOOD SPECIMEN Ordering Facility: [facility] Address: [address] [place] [address] Performed By: #### 3 016-3, 03985-1, HSTNT, 71435-2, 27548-8, 20272-1 #### [facility] CLIA [id number] [address] [place] [address] [place] Oxygen (Bld) [Partial pressure] 228 mm Hg High 85-95 [facility] Comment on above: Order Comment: Speci men Type: BLOOD SPECIMEN Ordering Facility: [facility] Address: [address] [place] [address] Performed By: #### 3 016-3, 64730-8, HSTNT, 42874-8, 82034-4, 91998-9 #### [facility] CLIA [id number] [address] [place] [address] [place] Oxyhemoglobin (BldA) [Mass fraction] 98 % Normal 95-98 [facility] Comment on above: Order Comment: Speci men Type: BLOOD SPECIMEN Ordering Facility: [facility] Address: [address] [place] [address] Performed By: #### 3 016-3, 47951-2, HSTNT, 65531-4, 24034-3, 28686-9 #### [facility] CLIA [id number] [address] [place] [address] [place] pH (Bld) 7.34 [pH] Low 7.35-7.45 [facility] Comment on above: Order Comment: Speci men Type: BLOOD SPECIMEN Ordering Facility: [facility] Address: [address] [place] [address] Performed By: #### 3 016-3, 13709-1, HSTNT, 76240-2, 96467-2, 85583-4 #### [facility] CLIA [id number] [address] [place] [address] [place] Potassium [Moles/Vol] 3.5 mmol/L Normal 3.5-5.0 [facility] Comment on above: Order Comment: Speci men Type: BLOOD SPECIMEN Ordering Facility: [facility] Address: [address] [place] [address] Performed By: #### 3 016-3, 75297-7, HSTNT, 95731-0, 77985-6, 97848-9 #### [facility] CLIA [id number] [address] [place] [address] [place] Sodium [Moles/Vol] 132 mmol/L Low 136-144 [facility] Comment on above: Order Comment: Speci men Type: BLOOD SPECIMEN Ordering Facility: [facility] Address: [address] [place] [address] Performed By: #### 3 016-3, 84092-6, HSTNT, 01399-3, 48522-0, 60881-9 #### [facility] CLIA [id number] [address] [place] [address] [place] Basic metabolic 2000 panelon 03-02-2025 Anion gap [Moles/Vol] 11 mmol/L Normal 8-15 [facility] Comment on above: Order Comment: Speci men Type: BLOOD SPECIMEN Ordering Facility: [facility] Address: [address] [place] [address] Performed By: #### 3 016-3, 47072-0, HSTNT, 24865-4, 25722-2, 91294-1 #### [facility] CLIA [id number] [address] [place] Calcium [Mass/Vol] 9.3 mg/dL Normal 8.5-10.2 [facility] Comment on above: Order Comment: Speci men Type: BLOOD SPECIMEN Ordering Facility: [facility] Address: [address] [place] [address] Performed By: #### 3 016-3, 66797-7, HSTNT, 08628-1, 36575-5, 90867-3 #### [facility] CLIA [id number] [address] [place] Chloride [Moles/Vol] 102 mmol/L Normal 98-107 [facility] Comment on above: Order Comment: Speci men Type: BLOOD SPECIMEN Ordering Facility: [facility] Address: [address] [place] [address] Performed By: #### 3 016-3, 81692-5, HSTNT, 46313-2, 81232-1, 72327-2 #### [facility] CLIA [id number] [address] [place] [address] [place] CO2 [Moles/Vol] 22 mmol/L Normal 22-30 [facility] Comment on above: Order Comment: Speci men Type: BLOOD SPECIMEN Ordering Facility: [facility] Address: [address] [place] [address] Performed By: #### 3 016-3, 03050-1, HSTNT, 65107-6, 97594-8, 13169-0 #### [facility] CLIA [id number] [address] [place] Creatinine [Mass/Vol] 1.00 mg/dL Normal 0.73-1.22 [facility] Comment on above: Order Comment: Speci men Type: BLOOD SPECIMEN Ordering Facility: [facility] Address: [address] [place] [address] Performed By: #### 3 016-3, 65904-3, HSTNT, 97943-8, 92540-6, 71385-3 #### [facility] CLIA [id number] [address] [place] eGFRcr SerPlBld CKD-EPI 2020 74 mL/min/1.73m??? Normal >=60 [facility] Comment on above: Order Comment: Speci men Type: BLOOD SPECIMEN Ordering Facility: [facility] Address: [address] [place] [address] Result Comment: Monie mated Glomerular Filtration Rate [...] actual GFR. Performed By: #### 3 016-3, 46213-8, HSTNT, 86428-5, 45640-6, 08607-4 #### [facility] CLIA [id number] [address] [place] [address] [place] Glucose [Mass/Vol] 147 mg/dL High 74-99 [facility] Comment on above: Order Comment: Sharon shaw Type: BLOOD SPECIMEN Ordering Facility: [facility] Address: [address] [place] [address] Result Comment: The [place] [employer] (ADA) provides guidance for cutoff [...] Standards of Medical Care in Diabetes 2016, [place] [employer]. Diabetes Care. 2016.39(Suppl 1). Performed By: #### 3 016-3, 71941-3, HSTNT, 84720-7, 70126-1, 73835-5 #### [facility] CLIA [id number] [address] [place] [address] [place] Potassium [Moles/Vol] 3.6 mmol/L Low 3.7-5.1 [facility] Comment on above: Order Comment: Sharon shaw Type: BLOOD SPECIMEN Ordering Facility: [facility] Address: [address] [place] [address] Performed By: #### 3 016-3, 92530-6, HSTNT, 69425-7, 57372-0, 74819-8 #### [facility] CLIA [id number] [address] [place] [address] [place] [place] Sodium [Moles/Vol] 135 mmol/L Low 136-144 [facility] Comment on above: Order Comment: Sharon shaw Type: BLOOD SPECIMEN Ordering Facility: [facility] Address: [address] [place] [address] Performed By: #### 3 016-3, 98984-5, HSTNT, 53767-0, 60499-7, 05043-7 #### [facility] CLIA [id number] 1 [place] [address] [place] Urea nitrogen [Mass/Vol] 14 mg/dL Normal 9-24 [facility] Comment on above: Order Comment: Speci men Type: BLOOD SPECIMEN Ordering Facility: [facility] Address: [address] [place] [address] Performed By: #### 3 016-3, 71450-8, HSTNT, 21795-5, 21676-1, 39866-2 #### [facility] CLIA [id number] 1 [place] [address] [place] Anion gap [Moles/Vol] 10 mmol/L Normal 8-15 [facility] Comment on above: Order Comment: Speci men Type: BLOOD SPECIMEN Ordering Facility: [facility] Address: [address] [place] [address] Performed By: #### 3 016-3, 50822-3, HSTNT, 87794-4, 01221-1, 00057-9 #### [facility] CLIA [id number] 1 [place] [address] [place] Calcium [Mass/Vol] 9.4 mg/dL Normal 8.5-10.2 [facility] Comment on above: Order Comment: Speci men Type: BLOOD SPECIMEN Ordering Facility: [facility] Address: [address] [place] [address] Performed By: #### 3 016-3, 54670-9, HSTNT, 69825-4, 86614-7, 79893-1 #### [facility] CLIA [id number] [address] [place] [address] [place] Chloride [Moles/Vol] 100 mmol/L Normal 98-107 [facility] Comment on above: Order Comment: Speci men Type: BLOOD SPECIMEN Ordering Facility: [facility] Address: [address] [place] [address] Performed By: #### 3 016-3, 81395-0, HSTNT, 33521-7, 69240-8, 72339-3 #### [facility] CLIA [id number] [address] [place] [address] [place] CO2 [Moles/Vol] 26 mmol/L Normal 22-30 [facility] Comment on above: Order Comment: Speci colin Type: BLOOD SPECIMEN Ordering Facility: [facility] Address: [address] [place] [address] Performed By: #### 3 016-3, 53909-7, HSTNT, 05491-3, 95188-8, 45262-3 #### [facility] CLIA [id number] 1 [place] [address] [place] Creatinine [Mass/Vol] 1.21 mg/dL Normal 0.73-1.22 [facility] Comment on above: Order Comment: Speci men Type: BLOOD SPECIMEN Ordering Facility: [facility] Address: [address] [place] [address] Performed By: #### 3 016-3, 70713-0, HSTNT, 48596-7, 84543-7, 39369-6 #### [facility] CLIA [id number] [address] [place] eGFRcr SerPlBld CKD-EPI 2020 59 mL/min/1.73m??? Low >=60 [facility] Comment on above: Order Comment: Sharon shaw Type: BLOOD SPECIMEN Ordering Facility: [facility] Address: [address] [place] [address] Result Comment: Monie mated Glomerular Filtration Rate [...] actual GFR. Performed By: #### 3 016-3, 19790-1, HSTNT, 85857-3, 93999-5, 24822-4 #### [facility] CLIA [id number] 1 [place] [address] [place] Glucose [Mass/Vol] 100 mg/dL High 74-99 [facility] Comment on above: Order Comment: Sharon shaw Type: BLOOD SPECIMEN Ordering Facility: [facility] Address: [address] [place] [address] Result Comment: The [place] Diabetes Association (ADA) provides guidance for cutoff [...] Standards of Medical Care in Diabetes 2016, [place] [employer]. Diabetes Care. 2016.39(Suppl 1). Performed By: #### 3 016-3, 46176-9, HSTNT, 18294-9, 66009-3, 18075-5 #### [facility] CLIA [id number] [address] [place] [address] [place] Potassium [Moles/Vol] 4.1 mmol/L Normal 3.7-5.1 [facility] Comment on above: Order Comment: Sharon shaw Type: BLOOD SPECIMEN Ordering Facility: [facility] Address: [address] [place] [address] Performed By: #### 3 016-3, 90861-7, HSTNT, 50550-5, 70503-0, 14827-4 #### [facility] CLIA [id number] 1 [place] [address] [place] Sodium [Moles/Vol] 136 mmol/L Normal 136-144 [facility] Comment on above: Order Comment: Sharon shaw Type: BLOOD SPECIMEN Ordering Facility: [facility] Address: [address] [place] [address] Performed By: #### 3 016-3, 84836-4, HSTNT, 63666-9, 32718-3, 53969-1 #### [facility] CLIA [id number] 1 [place] [address] [place] Urea nitrogen [Mass/Vol] 16 mg/dL Normal 9-24 [facility] Comment on above: Order Comment: Speci men Type: BLOOD SPECIMEN Ordering Facility: [facility] Address: [address] [place] [address] Performed By: #### 3 016-3, 69710-1, HSTNT, 40274-4, 48280-3, 66723-1 #### [facility] CLIA [id number] 1 [place] [address] [place] CBC panel Auto (Bld)on 03-02 Erythrocyte distribution width (RBC) [Ratio] 12.4 % Normal 11.5-15.0 [facility] Comment on above: Order Comment: Speci men Type: BLOOD SPECIMEN Ordering Facility: [facility] Address: [address] [place] [address] Performed By: #### 3 016-3, 08476-3, HSTNT, 26481-3, 62053-0, 37681-5 #### [facility] CLIA [id number] [address] [place] Hematocrit (Bld) [Volume fraction] 33.1 % Low 39.0-51.0 [facility] Comment on above: Order Comment: Speci men Type: BLOOD SPECIMEN Ordering Facility: [facility] Address: [address] [place] [address] Performed By: #### 3 016-3, 11754-7, HSTNT, 36185-5, 39768-8, 27510-7 #### [facility] CLIA [id number] 1 [place] [address] [place] Hemoglobin (Bld) [Mass/Vol] 11.6 g/dL Low 13.0-17.0 [facility] Comment on above: Order Comment: Speci men Type: BLOOD SPECIMEN Ordering Facility: [facility] Address: [address] [place] [address] Performed By: #### 3 016-3, 85226-2, HSTNT, 05795-1, 81656-1, 28410-3 #### [facility] CLIA [id number] [address] MCH (RBC) [Entitic mass] 32.0 pg Normal 26.0-34.0 [facility] Comment on above: Order Comment: Speci men Type: BLOOD SPECIMEN Ordering Facility: [facility] Address: [address] [place] [address] Performed By: #### 3 016-3, 48083-7, HSTNT, 13926-7, 81994-1, 64874-0 #### [facility] CLIA [id number] [address] MCHC (RBC) [Mass/Vol] 35.0 g/dL Normal 30.5-36.0 [facility] Comment on above: Order Comment: Speci men Type: BLOOD SPECIMEN Ordering Facility: [facility] Address: [address] [place] [address] Performed By: #### 3 016-3, 06975-5, HSTNT, 49769-8, 83641-9, 49768-6 #### [facility] CLIA [id number] [address] MCV (RBC) [Entitic vol] 91.2 fL Normal 80.0-100.0 [facility] Comment on above: Order Comment: Speci men Type: BLOOD SPECIMEN Ordering Facility: [facility] Address: [address] [place] [address] Performed By: #### 3 016-3, 87788-3, HSTNT, 11247-6, 55046-6, 75369-7 #### [facility] CLIA [id number] [address] Nucleated RBC (Bld) [#/Vol] 10*3/uL Normal <0.01 [facility] Comment on above: Order Comment: Speci men Type: BLOOD SPECIMEN Ordering Facility: [facility] Address: [address] [place] [address] Performed By: #### 3 016-3, 69035-0, HSTNT, 69822-0, 18105-4, 60253-3 #### [facility] CLIA [id number] [address] [place] Platelet mean volume (Bld) [Entitic vol] 10.5 fL Normal 9.0-12.7 [facility] Comment on above: Order Comment: Speci men Type: BLOOD SPECIMEN Ordering Facility: [facility] Address: [address] [place] [address] Performed By: #### 3 016-3, 87254-5, HSTNT, 75771-0, 77038-4, 87068-5 #### [facility] CLIA [id number] [address] Platelets (Bld) [#/Vol] 166 10*3/uL Normal 150-400 [facility] Comment on above: Order Comment: Speci men Type: BLOOD SPECIMEN Ordering Facility: [facility] Address: [address] [place] [address] Performed By: #### 3 016-3, 61427-0, HSTNT, 73357-1, 14519-5, 92620-8 #### [facility] CLIA [id number] [address] [place] RBC (Bld) [#/Vol] 3.63 10*6/uL Low 4.20-6.00 [facility] Comment on above: Order Comment: Speci men Type: BLOOD SPECIMEN Ordering Facility: [facility] Address: [address] [place] [address] Performed By: #### 3 016-3, 77137-6, HSTNT, 55433-1, 02432-8, 78646-8 #### [facility] CLIA [id number] [address] [place] WBC (Bld) [#/Vol] 25.71 10*3/uL High 3.70-11.00 [facility] Comment on above: Order Comment: Speci men Type: BLOOD SPECIMEN Ordering Facility: [facility] Address: [address] [place] [address] Performed By: #### 3 016-3, 03619-7, HSTNT, 14857-3, 89246-1, 20278-6 #### [facility] CLIA [id number] [address] Erythrocyte distribution width (RBC) [Ratio] 12.3 % Normal 11.5-15.0 [facility] Comment on above: Order Comment: Speci men Type: BLOOD SPECIMEN Ordering Facility: [facility] Address: [address] [place] [address] Performed By: #### 3 016-3, 94149-9, HSTNT, 23737-0, 81576-6, 07770-5 #### [facility] CLIA [id number] [address] [place] [address] Hematocrit (Bld) [Volume fraction] 43.4 % Normal 39.0-51.0 [facility] Comment on above: Order Comment: Speci men Type: BLOOD SPECIMEN Ordering Facility: [facility] Address: [address] [place] [address] Performed By: #### 3 016-3, 80523-4, HSTNT, 88293-6, 26895-7, 92879-7 #### [facility] CLIA [id number] [address] [place] [address] [place] Hemoglobin (Bld) [Mass/Vol] 14.7 g/dL Normal 13.0-17.0 [facility] Comment on above: Order Comment: Speci men Type: BLOOD SPECIMEN Ordering Facility: [facility] Address: [address] [place] [address] Performed By: #### 3 016-3, 86787-1, HSTNT, 14923-9, 04327-6, 73644-3 #### [facility] CLIA [id number] [address] [place] MCH (RBC) [Entitic mass] 31.3 pg Normal 26.0-34.0 [facility] Comment on above: Order Comment: Speci men Type: BLOOD SPECIMEN Ordering Facility: [facility] Address: [address] [place] [address] Performed By: #### 3 016-3, 95053-2, HSTNT, 84623-3, 10520-3, 98682-8 #### [facility] CLIA [id number] [address] MCHC (RBC) [Mass/Vol] 33.9 g/dL Normal 30.5-36.0 [facility] Comment on above: Order Comment: Speci men Type: BLOOD SPECIMEN Ordering Facility: [facility] Address: [address] [place] [address] Performed By: #### 3 016-3, 12011-5, HSTNT, 55479-0, 05274-7, 72774-1 #### [facility] CLIA [id number] [address] STATES [facility] MCV (RBC) [Entitic vol] 92.3 fL Normal 80.0-100.0 [facility] Comment on above: Order Comment: Speci men Type: BLOOD SPECIMEN Ordering Facility: [facility] Address: [address] [place] [address] Performed By: #### 3 016-3, 32895-2, HSTNT, 48197-5, 49239-7, 29665-1 #### [facility] CLIA [id number] [address] STATES [facility] Nucleated RBC (Bld) [#/Vol] 10*3/uL Normal <0.01 [facility] Comment on above: Order Comment: Speci men Type: BLOOD SPECIMEN Ordering Facility: [facility] Address: [address] [place] [address] Performed By: #### 3 016-3, 00463-2, HSTNT, 41366-5, 62147-1, 65751-5 #### [facility] CLIA [id number] [address] Platelet mean volume (Bld) [Entitic vol] 10.6 fL Normal 9.0-12.7 [facility] Comment on above: Order Comment: Speci men Type: BLOOD SPECIMEN Ordering Facility: [facility] Address: [address] [place] [address] Performed By: #### 3 016-3, 49763-2, HSTNT, 78763-8, 37266-3, 78921-9 #### [facility] CLIA [id number] [address] OF [facility] Platelets (Bld) [#/Vol] 222 10*3/uL Normal 150-400 [facility] Comment on above: Order Comment: Speci men Type: BLOOD SPECIMEN Ordering Facility: [facility] Address: [address] [place] [address] Performed By: #### 3 016-3, 59388-0, HSTNT, 71180-4, 64437-1, 99604-9 #### [facility] CLIA [id number] [address] RBC (Bld) [#/Vol] 4.70 10*6/uL Normal 4.20-6.00 [facility] Comment on above: Order Comment: Speci men Type: BLOOD SPECIMEN Ordering Facility: [facility] Address: [address] [place] [address] Performed By: #### 3 016-3, 38659-0, HSTNT, 40841-9, 12290-7, 09315-1 #### [facility] CLIA [id number] [address] [place] WBC (Bld) [#/Vol] 8.49 10*3/uL Normal 3.70-11.00 [facility] Comment on above: Order Comment: Speci men Type: BLOOD SPECIMEN Ordering Facility: [facility] Address: [address] [place] [address] Performed By: #### 3 016-3, 09733-7, HSTNT, 30147-6, 39729-5, 33024-7 #### [facility] CLIA [id number] [address] OF [facility] CONSULTon 11-11-2025 CONSULT HNO ID: [id number] Author: HERNANDEZ RENE MD Service: Critical Care Author Type: Physician Type: Consults Filed: 03/02/2025 17:53 Note Text: CRITICAL CARE CONSULT NOTE SERVICE DATE: March 02, 2025 Admission Date: 02/24/2025 Consulted by: Dr. Sagastume Reason for Consult: s/p CABG AGE: [age] year old LOS: 5 days Subjective 85 year old male who presents as transfer from [facility]. He was mowing the grass last week and was experiencing exertional shortness of breath with some right sided chest discomfort. He was admitted to [facility] and diagnosed with NSTEMI. Cardiac catheterization revealed severe 3-vessel CAD. Transferred to [facility] for consideration of CABG. 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 Normal [facility] ECG COMPLETEon 03-02-2025 ECG COMPLETE Ventricular Rate : 8 2 BPM QRS Duration : 94 ms Q-T Interval : 464 ms QTC Calculation(Bazett) : 542 ms Calculated R [place] : 33 degrees Calculated T [place] : 54 degrees SINUS RHYTHM WITH BRIEF RUNS OF AFIB NONSPECIFIC ST AND T WAVE ABNORMALITY PROLONGED QT ABNORMAL ECG WHEN COMPARED WITH ECG OF 01-Mar-2025 12:55, ATRIAL FIBRILLATION HAS REPLACED SINUS RHYTHM QT HAS LENGTHENED Confirmed by MD HOPPER VINAY ([id number]) on 03/03/2025 12:27:40 PM NAME : ELSA PALACIO PID : [id number] : 1940 Gender : Male Race : ORD : [id number] Procedure Date : Mar 02 2025 14:10:01 Edit Date : Mar 03 2025 12:27:44 Diagnosis: SINUS RHYTHM WITH BRIEF RUNS OF AFIB NONSPECIFIC ST AND T WAVE ABNORMALITY PROLONGED QT ABNORMAL ECG WHEN COMPARED WITH ECG OF 01-Mar-2025 12:55, ATRIAL FIBRILLATION HAS REPLACED SINUS RHYTHM QT HAS LENGTHENED Confirmed by MD HOPPER VINAY ([id number]) on 03/03/2025 12:27:40 PM Test Reason : Post-OP Location : [address] : [place] [address] Overread By : MD HOPPER VINAY Edited By : MD HOPPER VINAY Referred By : SHAWN CHAU Acquired by : JADEN US [facility] Fibrinogen PPP-mCncon 2024 Fibrinogen Coag (PPP) [Mass/Vol] 159 mg/dL Low 200-400 [facility] Comment on above: Order Comment: Speci colin Type: BLOOD SPECIMEN Ordering Facility: [facility] Address: [address] [place] [address] Performed By: #### 3 016-3, 28071-6, HSTNT, 90334-4, 13428-6, 58872-5 #### [facility] CLIA [id number] [address] Magnesium SerPl-ncon 03-02 Magnesium [Mass/Vol] 2.4 mg/dL High 1.7-2.3 [facility] Comment on above: Order Comment: Speci men Type: BLOOD SPECIMEN Ordering Facility: [facility] Address: [address] [place] [address] Performed By: #### 3 016-3, 46439-9, HSTNT, 81859-1, 22238-0, 37185-4 #### [facility] CLIA [id number] [address] STATES OF [facility] Magnesium [Mass/Vol] 2.0 mg/dL Normal 1.7-2.3 [facility] Comment on above: Order Comment: Speci men Type: BLOOD SPECIMEN Ordering Facility: [facility] Address: [address] [place] [address] Performed By: #### 3 016-3, 99335-9, HSTNT, 77591-1, 46444-6, 84007-6 #### [facility] CLIA [id number] [address] [place] OPERATIVE NOon 03-02-2025 OPERATIVE NO HNO ID: [id number] Author: JOHN SAGASTUME MD Service: Cardiac Surgery Author Type: Physician Type: Operative Report Filed: 03/02/2025 15:01 Note Text: [facility] CARDIO-THORACICSURGER Y OPERATIVE/PROCEDURE REPORT LOG ID: [id number] SURGERY/PROCEDURE DATE: 03/02/2025 INCISION/PROCEDURE START TIME: 8:23 AM INCISION CLOSE/PROCEDURE END TIME: 1:32 PM SURGEON(S)/PROCEDURAL IST(S) AND CLINICAL INFORMATICS EDUCATOR(S): Surgeons and Role: * John Sagastume MD - Primary * Evgeny White MD - Resident - Assisting Physician Chemistry Associate: Shanique Degroot PA-C; Rita Henley PA-C ANESTHESIA: [...] to side diagonal 1 Left SAM: Skeletonized [place] Technique: Direct vision (open) Vein(s) Harvested: Left [...] cell saver. Specimens: None Complex Surgery: No Surgeon/Chemistry Associate Participation: The primary Surgeon/Proceduralist performed the procedure with assistance. Head Men'S Tennis Coach: opened, closed and harvested grafts Second Assist: closed, harvested grafts and opened SPECIMENS: COMPLETED BY: Evgeny White MD PATIENT NAME: Elsa Palacio DATE: March 02, 2025 TIME: 1:35 PM AGE: [age] year old .surgatt Normal [facility] POTASSIUMon 03-02-2025 Potassium [Moles/Vol] 4.9 mmol/L Normal 3.7-5.1 [facility] Comment on above: Order Comment: Sharon shaw Type: BLOOD SPECIMEN Ordering Facility: [facility] Address: [address] [place] [address] Performed By: #### 3 016-3, 00092-3, HSTNT, 67716-9, 19207-4, 31770-3 #### [facility] CLIA [id number] [address] OF [facility] PT panel Coag (PPP)on 2024 INR Coag (PPP) [Relative time] 1.3 {INR} Normal 0.9-1.3 [facility] Comment on above: Order Comment: Sharon shaw Type: BLOOD SPECIMEN Ordering Facility: [facility] Address: [address] [place] [address] Result Comment: Sigrid min K Antagonist (VKA) Therapeutic Range: INR 2 to 3 (Target INR of 2.5) Note: For patients treated with VKA drugs, such as warfarin, the [place] [employer] 2012 Guideline recommends [...] Chest 2012, 141:7S-47S Jose RA, et al. [facility] 2017, 70: 252-289 Performed By: #### 3 016-3, 04513-8, HSTNT, 28330-7, 15588-8, 19459-3 #### [facility] CLIA [id number] [address] [place] PT Coag (PPP) [Time] 13.1 s High 9.7-13.0 [facility] Comment on above: Order Comment: Speci men Type: BLOOD SPECIMEN Ordering Facility: [facility] Address: [address] [place] [address] Performed By: #### 3 016-3, 18287-9, HSTNT, 18342-7, 09631-3, 89491-6 #### [facility] CLIA [id number] [address] OF [facility] THERAPY NTon 03-02-2025 THERAPY NT HNO ID: [id number] Author: HERMINIA CORDERO RRT Service: Respiratory Therapy Author Type: Registered Resp Therapist Type: Therapy (PT/OT/Speech/Resp) Filed: 03/02/2025 16:50 Note Text: Summary: Extubation parameters RESPIRATORY THERAPY PROGRESS NOTE SERVICE DATE: 03/02/2025 03/02/25 7109 Extubation Parameters $Extubation Parameters $Extubation Parameters Performed [...] Adequate Cough/Gag Reflex Y Normal [facility] XR CHEST 1V FRONTALon 2024 XR CHEST [...] with tip directed laterally and inferiorly. Overlying neck skewer leads. Lungs and pleura: No pneumothorax. Minimal atelectasis at the lung bases. Lungs are otherwise grossly clear. Cardiomediastinal silhouette: Normal cardiomediastinal silhouette. Other: No significant additional findings. IMPRESSION: 1. Lines and tubes as noted. 2. Minimal atelectasis at the lung bases. Social Economist: GAEL Transcribe Date/Time: Mar 02 2025 3:12P Dictated by : NEIL CARTER MD This examination was interpreted and the report reviewed and electronically signed by: NEIL CARTER MD on Mar 02 2025 3:13PM EST [id number] Normal [facility] aPTT PPPon 03-02-2025 aPTT Coag (PPP) [Time] 27.3 s Normal 23.0-32.4 [facility] Comment on above: Order Comment: Speci men Type: BLOOD SPECIMEN Ordering Facility: [facility] Address: [address] [place] [address] Performed By: #### 3 016-3, 65369-0, T, 77088-7, 83969-5, 31880-6 #### [facility] CLIA [id number] [address] [place] [address] [place] Basic metabolic 2000 panelon 03-01-2025 Anion gap [Moles/Vol] 12 mmol/L Normal 8-15 [facility] Comment on above: Order Comment: Speci men Type: BLOOD SPECIMEN Ordering Facility: [facility] Address: [address] [place] [address] Performed By: #### 1 9123-9, 72482-3 #### [facility] CLIA [id number] [address] [place] [address] [place] Calcium [Mass/Vol] 9.1 mg/dL Normal 8.5-10.2 [facility] Comment on above: Order Comment: Speci men Type: BLOOD SPECIMEN Ordering Facility: [facility] Address: [address] [place] [address] Performed By: #### 1 91239, 03128-3 #### [facility] CLIA [id number] [address] [place] [address] [place] Chloride [Moles/Vol] 101 mmol/L Normal 98-107 [facility] Comment on above: Order Comment: Speci men Type: BLOOD SPECIMEN Ordering Facility: [facility] Address: [address] [place] [address] Performed By: #### 1 91239, 10927-1 #### [facility] CLIA [id number] 1 [place] [address] [place] CO2 [Moles/Vol] 21 mmol/L Low 22-30 [facility] Comment on above: Order Comment: Speci men Type: BLOOD SPECIMEN Ordering Facility: [facility] Address: [address] [place] [address] Performed By: #### 1 9123-9, 99849-1 #### [facility] CLIA [id number] 1 [place] [address] [place] Creatinine [Mass/Vol] 1.07 mg/dL Normal 0.73-1.22 [facility] Comment on above: Order Comment: Sharon shaw Type: BLOOD SPECIMEN Ordering Facility: [facility] Address: [address] [place] [address] Performed By: #### 1 9123-9, 96174-9 #### [facility] CLIA [id number] 1 [place] [address] [place] eGFRcr SerPlBld CKD-EPI 2020 68 mL/min/1.73m??? Normal >=60 [facility] Comment on above: Order Comment: Sharon shaw Type: BLOOD SPECIMEN Ordering Facility: [facility] Address: [address] [place] [address] Result Comment: Monie mated Glomerular Filtration Rate [...] actual GFR. Performed By: #### 1 9123-9, 28680-5 #### [facility] CLIA [id number] [address] [place] [address] [place] Glucose [Mass/Vol] 99 mg/dL Normal 74-99 [facility] Comment on above: Order Comment: Sharon colin Type: BLOOD SPECIMEN Ordering Facility: [facility] Address: [address] [place] [address] Result Comment: The [place] [employer] (ADA) provides guidance for cutoff [...] Standards of Medical Care in Diabetes 2016, [place] [employer]. Diabetes Care. 2016.39(Suppl 1). Performed By: #### 1 9123-9, 29893-1 #### [facility] CLIA [id number] [address] [place] Potassium [Moles/Vol] 4.2 mmol/L Normal 3.7-5.1 [facility] Comment on above: Order Comment: Speci men Type: BLOOD SPECIMEN Ordering Facility: [facility] Address: [address] [place] [address] Performed By: #### 1 9123-9, 72600-4 #### [facility] CLIA [id number] [address] [place] Sodium [Moles/Vol] 134 mmol/L Low 136-144 [facility] Comment on above: Order Comment: Speci men Type: BLOOD SPECIMEN Ordering Facility: [facility] Address: [address] [place] [address] Performed By: #### 1 91239, 60618-1 #### [facility] CLIA [id number] [address] STATES OF [facility] Urea nitrogen [Mass/Vol] 17 mg/dL Normal 9-24 [facility] Comment on above: Order Comment: Speci men Type: BLOOD SPECIMEN Ordering Facility: [facility] Address: [address] [place] [address] Performed By: #### 1 91239, 80997-1 #### [facility] CLIA [id number] [address] [place] CBC panel Auto (Bld)on 03-01 Erythrocyte distribution width (RBC) [Ratio] 12.3 % Normal 11.5-15.0 [facility] Comment on above: Order Comment: Speci men Type: BLOOD SPECIMEN Ordering Facility: [facility] Address: [address] [place] [address] Performed By: #### 5 8410-2 #### [facility] CLIA [id number] [address] [place] Hematocrit (Bld) [Volume fraction] 41.8 % Normal 39.0-51.0 [facility] Comment on above: Order Comment: Speci men Type: BLOOD SPECIMEN Ordering Facility: [facility] Address: [address] [place] [address] Performed By: #### 5 8410-2 #### [facility] CLIA [id number] [address] OF [facility] Hemoglobin (Bld) [Mass/Vol] 14.3 g/dL Normal 13.0-17.0 [facility] Comment on above: Order Comment: Speci men Type: BLOOD SPECIMEN Ordering Facility: [facility] Address: [address] [place] [address] Performed By: #### 5 8410-2 #### [facility] CLIA [id number] [address] OF [facility] MCH (RBC) [Entitic mass] 31.1 pg Normal 26.0-34.0 [facility] Comment on above: Order Comment: Speci men Type: BLOOD SPECIMEN Ordering Facility: [facility] Address: [address] [place] [address] Performed By: #### 5 8410-2 #### [facility] CLIA [id number] [address] OF [facility] MCHC (RBC) [Mass/Vol] 34.2 g/dL Normal 30.5-36.0 [facility] Comment on above: Order Comment: Speci men Type: BLOOD SPECIMEN Ordering Facility: [facility] Address: [address] [place] [address] Performed By: #### 5 8410-2 #### [facility] CLIA [id number] [address] [place] MCV (RBC) [Entitic vol] 90.9 fL Normal 80.0-100.0 [facility] Comment on above: Order Comment: Speci men Type: BLOOD SPECIMEN Ordering Facility: [facility] Address: [address] [place] [address] Performed By: #### 5 8410-2 #### [facility] CLIA [id number] [address] [place] Nucleated RBC (Bld) [#/Vol] 10*3/uL Normal <0.01 [facility] Comment on above: Order Comment: Speci men Type: BLOOD SPECIMEN Ordering Facility: [facility] Address: [address] [place] [address] Performed By: #### 5 8410-2 #### [facility] CLIA [id number] [address] [place] Platelet mean volume (Bld) [Entitic vol] 10.9 fL Normal 9.0-12.7 [facility] Comment on above: Order Comment: Speci men Type: BLOOD SPECIMEN Ordering Facility: [facility] Address: [address] [place] [address] Performed By: #### 5 8410-2 #### [facility] CLIA [id number] [address] [place] Platelets (Bld) [#/Vol] 201 10*3/uL Normal 150-400 [facility] Comment on above: Order Comment: Speci men Type: BLOOD SPECIMEN Ordering Facility: [facility] Address: [address] [place] [address] Performed By: #### 5 8410-2 #### [facility] CLIA [id number] [address] [place] RBC (Bld) [#/Vol] 4.60 10*6/uL Normal 4.20-6.00 [facility] Comment on above: Order Comment: Speci men Type: BLOOD SPECIMEN Ordering Facility: [facility] Address: [address] [place] [address] Performed By: #### 5 8410-2 #### [facility] CLIA [id number] [address] [place] WBC (Bld) [#/Vol] 7.95 10*3/uL Normal 3.70-11.00 [facility] Comment on above: Order Comment: Speci men Type: BLOOD SPECIMEN Ordering Facility: [facility] Address: [address] [place] [address] [place] [address] Performed By: #### 5 8410-2 #### [facility] CLIA [id number] [address] [place] EKGon 03-01-2025 Electrocardiogram Ventricular Rate : 6 5 BPM Atrial Rate : 60 BPM P-R Interval : 256 ms QRS Duration : 92 ms Q-T Interval : 442 ms QTC Calculation(Bazett) : 459 ms Calculated P [place] : 38 degrees Calculated R [place] : 2 degrees Calculated T [place] : 45 degrees SINUS RHYTHM WITH MARKED SINUS ARRHYTHMIA WITH 1ST DEGREE A-V BLOCK NONSPECIFIC ST ABNORMALITY ABNORMAL ECG WHEN COMPARED WITH ECG OF 28-Feb-2025 11:14, PREMATURE ATRIAL COMPLEXES ARE NO LONGER PRESENT Confirmed by MD HOPPER VINAY ([id number]) on 03/02/2025 6:13:12 PM NAME : ELSA PALACIO PID : [id number] : 1940 Gender : Male Race : ORD : Procedure Date : Mar 01 2025 12:55:06 Edit Date : Mar 02 2025 18:13:17 Diagnosis: SINUS RHYTHM WITH MARKED SINUS ARRHYTHMIA WITH 1ST DEGREE A-V BLOCK NONSPECIFIC ST ABNORMALITY ABNORMAL ECG WHEN COMPARED WITH ECG OF 28-Feb-2025 11:14, PREMATURE ATRIAL COMPLEXES ARE NO LONGER PRESENT Confirmed by MD HOPPER VINAY ([id number]) on 03/02/2025 6:13:12 PM Test Reason : Location : [address] : [place] [address] Overread By : MD HOPPER VINAY Edited By : MD HOPPER VINAY Referred By : SHAWN CHAU Acquired by : ROBERTO TRUJILLO [facility] HIGH SENSITIVITY TROPONIN To n 03-01-2025 Troponin T.cardiac High sensitivity method [Mass/Vol] 462 ng/L High <12 [facility] Comment on above: Order Comment: Speci men Type: BLOOD SPECIMEN Ordering Facility: [facility] Address: [address] [place] [address] Performed By: #### 3 016-3, 21378-4, HSTNT, 75787-2, 08259-7, 78973-5 #### [facility] CLIA [id number] [address] [place] Magnesium SerPl-mCncon 03-01 Magnesium [Mass/Vol] 1.8 mg/dL Normal 1.7-2.3 [facility] Comment on above: Order Comment: Speci men Type: BLOOD SPECIMEN Ordering Facility: [facility] Address: [address] [place] [address] Performed By: #### 1 9123-9, 30972-1 #### [facility] CLIA [id number] [address] OF [facility] NURSING PROGon 03-01-2025 NURSING PROG HNO ID: [id number] Author: DALILA BILLY, ANIRUDH Service: Nursing Author Type: Registered Nurse Type: Nursing Progress Note Filed: 03/01/2025 15:00 Note Text: Patient complaining of 2/10 sharp chest pain. Blood pressure is 155/78, heart rate is 57. Omari Heaton MD made aware of situation. 12 lead EKG obtained, nitro x1 dose given, and troponin drawn. Chest pain relieved after 1 dose of nitro. Normal [facility] TYPE + SCREENon 03-01-2025 ABO B Normal [facility] Comment on above: Order Comment: Speci men Type: BLOOD SPECIMEN Ordering Facility: [facility] Address: [address] [place] [address] Performed By: #### 3 016-3, 98257-2, HSTNT, 50268-5, 36346-9, 31836-1 #### [facility] CLIA [id number] [address] [place] Rh Nom (Bld) Positive Normal [facility] Comment on above: Order Comment: Speci men Type: BLOOD SPECIMEN Ordering Facility: [facility] Address: [address] [place] [address] Performed By: #### 3 016-3, 58178-3, HSTNT, 87973-6, 99450-5, 10698-1 #### [facility] CLIA [id number] [address] [place] TYPE AND SCREEN EXPIRATION 03/04/2025 23:59 Normal [facility] Comment on above: Order Comment: Speci men Type: BLOOD SPECIMEN Ordering Facility: [facility] Address: [address] [place], [place] [address] Performed By: #### 3 016-3, 78169-2, HSTNT, 31048-5, 96572-5, 78815-7 #### [facility] CLIA [id number] 1 [place] [address] [place] XR CHEST 1V [...] Comparison: 08/06/2011 RESULT: Lines, tubes, and devices: stay cutter leads. Lungs and pleura: No consolidation. No lung mass. No pleural effusion. Cardiomediastinal silhouette: Widening of the superior mediastinum most likely due to tortuous brachiocephalic vessels. Stable. Other: None. IMPRESSION: No acute radiographic abnormality. Social Economist: PSCB Transcribe Date/Time: Mar 01 2025 6:53A Dictated by : NEIL CARTER MD This examination was interpreted and the report reviewed and electronically signed by: NEIL CARTER MD on Mar 01 2025 6:55AM EST [id number] Normal [facility] aPTT PPPon 03-01-2025 aPTT Coag (PPP) [Time] 61.7 s High 23.0-32.4 [facility] Comment on above: Order Comment: Sharon shaw Type: BLOOD SPECIMEN Ordering Facility: [facility] Address: [address] [place], [place] [address] Performed By: #### 3 016-3, 48554-7, HSTNT, 37563-7, 31082-9, 07602-8 #### [facility] CLIA [id number] 1 [place] [address] [place] Basic metabolic 2000 panelon 02-28-2025 Anion gap [Moles/Vol] 11 mmol/L Normal 8-15 [facility] Comment on above: Order Comment: Speci men Type: BLOOD SPECIMEN Ordering Facility: [facility] Address: [address] [place] [address] Performed By: #### 3 016-3, 50124-5, HSTNT, 83959-6, 12710-6, 36623-7 #### [facility] CLIA [id number] 1 [place] [address] [place] Calcium [Mass/Vol] 9.0 mg/dL Normal 8.5-10.2 [facility] Comment on above: Order Comment: Speci men Type: BLOOD SPECIMEN Ordering Facility: [facility] Address: [address] [place] [address] Performed By: #### 3 016-3, 29305-9, HSTNT, 70485-0, 75385-0, 30260-8 #### [facility] CLIA [id number] 1 [place] [address] [place] Chloride [Moles/Vol] 101 mmol/L Normal 98-107 [facility] Comment on above: Order Comment: Speci men Type: BLOOD SPECIMEN Ordering Facility: [facility] Address: [address] [place] [address] Performed By: #### 3 016-3, 23107-8, HSTNT, 08760-5, 97206-6, 68440-5 #### [facility] CLIA [id number] 1 [place] [address] [place] CO2 [Moles/Vol] 22 mmol/L Normal 22-30 [facility] Comment on above: Order Comment: Speci men Type: BLOOD SPECIMEN Ordering Facility: [facility] Address: [address] [place] [address] Performed By: #### 3 016-3, 33325-7, HSTNT, 41758-6, 60023-6, 22608-8 #### [facility] CLIA [id number] 1 [place] [address] [place] Creatinine [Mass/Vol] 1.05 mg/dL Normal 0.73-1.22 [facility] Comment on above: Order Comment: Sharon shaw Type: BLOOD SPECIMEN Ordering Facility: [facility] Address: [address] [place] [address] Performed By: #### 3 016-3, 11448-6, HSTNT, 30585-5, 02782-6, 98539-0 #### [facility] CLIA [id number] [address] [place] eGFRcr SerPlBld CKD-EPI 2020 70 mL/min/1.73m??? Normal >=60 [facility] Comment on above: Order Comment: [facility] Type: BLOOD SPECIMEN Ordering Facility: [facility] Address: [address] [place] [address] Result Comment: Monie mated Glomerular Filtration Rate [...] actual GFR. Performed By: #### 3 016-3, 19341-3, HSTNT, 76104-4, 46022-3, 10537-6 #### [facility] CLIA [id number] 1 [place] [address] [place] Glucose [Mass/Vol] 110 mg/dL High 74-99 [facility] Comment on above: Order Comment: Sharon shaw Type: BLOOD SPECIMEN Ordering Facility: [facility] Address: [address] [place] [address] Result Comment: The [place] [employer] (ADA) provides guidance for cutoff [...] Standards of Medical Care in Diabetes 2016, [place] [employer]. Diabetes Care. 2016.39(Suppl 1). Performed By: #### 3 016-3, 71726-7, HSTNT, 94408-6, 93315-4, 89594-8 #### [facility] CLIA [id number] [address] [place] Potassium [Moles/Vol] 4.2 mmol/L Normal 3.7-5.1 [facility] Comment on above: Order Comment: Speci men Type: BLOOD SPECIMEN Ordering Facility: [facility] Address: [address] [place] [address] Performed By: #### 3 016-3, 78096-9, HSTNT, 17123-7, 22423-3, 81481-8 #### [facility] CLIA [id number] [address] STATES OF [facility] Sodium [Moles/Vol] 134 mmol/L Low 136-144 [facility] Comment on above: Order Comment: Speci men Type: BLOOD SPECIMEN Ordering Facility: [facility] Address: [address] [place] [address] Performed By: #### 3 016-3, 51666-5, HSTNT, 83976-9, 60019-5, 16140-5 #### [facility] CLIA [id number] [address] [place] Urea nitrogen [Mass/Vol] 21 mg/dL Normal 9-24 [facility] Comment on above: Order Comment: Speci men Type: BLOOD SPECIMEN Ordering Facility: [facility] Address: [address] [place] [address] Performed By: #### 3 016-3, 59147-0, HSTNT, 97158-1, 98970-1, 45113-4 #### [facility] CLIA [id number] [address] [place] CBC panel Auto (Bld)on 02-28 Erythrocyte distribution width (RBC) [Ratio] 12.2 % Normal 11.5-15.0 [facility] Comment on above: Order Comment: Speci men Type: BLOOD SPECIMEN Ordering Facility: [facility] Address: [address] [place] [address] Performed By: #### 3 016-3, 62013-0, HSTNT, 00213-2, 25660-6, 86849-2 #### [facility] CLIA [id number] [address] OF [facility] Hematocrit (Bld) [Volume fraction] 41.4 % Normal 39.0-51.0 [facility] Comment on above: Order Comment: Speci men Type: BLOOD SPECIMEN Ordering Facility: [facility] Address: [address] [place] [address] Performed By: #### 3 016-3, 59292-9, HSTNT, 97379-7, 27371-4, 76090-0 #### [facility] CLIA [id number] [address] OF [facility] Hemoglobin (Bld) [Mass/Vol] 14.2 g/dL Normal 13.0-17.0 [facility] Comment on above: Order Comment: Speci men Type: BLOOD SPECIMEN Ordering Facility: [facility] Address: [address] [place] [address] Performed By: #### 3 016-3, 40848-3, HSTNT, 78129-8, 49162-7, 69139-3 #### [facility] CLIA [id number] [address] [place] [address] OF [facility] MCH (RBC) [Entitic mass] 31.1 pg Normal 26.0-34.0 [facility] Comment on above: Order Comment: Speci men Type: BLOOD SPECIMEN Ordering Facility: [facility] Address: [address] [place] [address] Performed By: #### 3 016-3, 82385-8, HSTNT, 93544-3, 26243-1, 67716-2 #### [facility] CLIA [id number] [address] MCHC (RBC) [Mass/Vol] 34.3 g/dL Normal 30.5-36.0 [facility] Comment on above: Order Comment: Speci men Type: BLOOD SPECIMEN Ordering Facility: [facility] Address: [address] [place] [address] Performed By: #### 3 016-3, 66835-7, HSTNT, 36735-2, 24043-6, 82148-4 #### [facility] CLIA [id number] [address] MCV (RBC) [Entitic vol] 90.6 fL Normal 80.0-100.0 [facility] Comment on above: Order Comment: Speci men Type: BLOOD SPECIMEN Ordering Facility: [facility] Address: [address] [place] [address] Performed By: #### 3 016-3, 59341-5, HSTNT, 03287-5, 20784-4, 79399-3 #### [facility] CLIA [id number] [address] Nucleated RBC (Bld) [#/Vol] 10*3/uL Normal <0.01 [facility] Comment on above: Order Comment: Speci men Type: BLOOD SPECIMEN Ordering Facility: [facility] Address: [address] [place] [address] Performed By: #### 3 016-3, 56361-0, HSTNT, 55280-7, 15142-9, 58537-5 #### [facility] CLIA [id number] [address] [place] Platelet mean volume (Bld) [Entitic vol] 10.2 fL Normal 9.0-12.7 [facility] Comment on above: Order Comment: Speci men Type: BLOOD SPECIMEN Ordering Facility: [facility] Address: [address] [place] [address] Performed By: #### 3 016-3, 84944-9, HSTNT, 60214-7, 20700-2, 28900-0 #### [facility] CLIA [id number] [address] [place] Platelets (Bld) [#/Vol] 197 10*3/uL Normal 150-400 [facility] Comment on above: Order Comment: Speci men Type: BLOOD SPECIMEN Ordering Facility: [facility] Address: [address] [place] [address] Performed By: #### 3 016-3, 34500-0, HSTNT, 67484-9, 76155-7, 02210-1 #### [facility] CLIA [id number] [address] [place] RBC (Bld) [#/Vol] 4.57 10*6/uL Normal 4.20-6.00 [facility] Comment on above: Order Comment: Speci men Type: BLOOD SPECIMEN Ordering Facility: [facility] Address: [address] [place] [address] Performed By: #### 3 016-3, 92144-1, HSTNT, 69474-7, 46636-8, 61292-9 #### [facility] CLIA [id number] [address] [place] WBC (Bld) [#/Vol] 8.49 10*3/uL Normal 3.70-11.00 [facility] Comment on above: Order Comment: Speci men Type: BLOOD SPECIMEN Ordering Facility: [facility] Address: [address] [place] [address] Performed By: #### 3 016-3, 34202-3, HSTNT, 88596-5, 55615-8, 67587-0 #### [facility] CLIA [id number] [address] CONSULTon 02-28-2025 CONSULT HNO ID: [id number] Author: HARRISON ARTIS MD Service: Electrophysiology Author Type: Physician Type: Consults Filed: 02/28/2025 12:18 Note Text: CONSULT: CARDIOLOGY SERVICE [facility] Electrophysiology (EP) SERVICE DATE: 02/28/2025 SERVICE TIME: 12:18 PM CONSULTING PHYSICIAN: Harrison Artis PCP: Екатерина Taveras MD ATTENDING: Omari Heaton MD REASON FOR CONSULT: Arrhythmias Subjective CHIEF COMPLAINT: CABG (coronary artery bypass graft) planned [Z78.9] HISTORY OF PRESENT ILLNESS: Mr. Palacio is a 85 year old male who presents as transfer from [facility] for consideration of CABG, evidently scheduled for tomorrow Saturday03/01/2025. No heart history, he was mowing the grass last week and was experiencing exertional shortness of breath, perhaps some right sided chest discomfort. He was admitted to [facility] and diagnosed with NSTEMI. Cardiac catheterization revealed severe 3-vessel CAD. Transferred to [facility] for consideration of CABG. He was noted [...] RAE, Dr Pierce PAF (paroxysmal atrial fibrillation) ([facility]) 02/25/2025 Primary hypertension 10/13/2024 PAST SURGICAL HISTORY [...] LEFT HEART CATH,PERCUTANEOUS 02/24/2025 severe 3-vessel CAD; [facility] RAD RESECT TUMOR SOFT TISS NECK/ANT [...] (more content not included)... Normal [facility] ECG COMPLETEon 02-28-2025 ECG COMPLETE Ventricular Rate : 7 6 BPM Atrial Rate : 102 BPM QRS Duration : 92 ms Q-T Interval : 420 ms QTC Calculation(Bazett) : 472 ms Calculated P [place] : 26 degrees Calculated R [place] : 1 degrees Calculated T [place] : 62 degrees SINUS TACHYCARDIA WITH BLOCKED PREMATURE ATRIAL COMPLEXES OTHERWISE NORMAL ECG WHEN COMPARED WITH ECG OF 25-Feb-2025 14:55, SINUS RHYTHM HAS REPLACED ATRIAL FIBRILLATION QUESTIONABLE CHANGE IN QRS AXIS T WAVE INVERSION NO LONGER EVIDENT IN INFERIOR LEADS Confirmed by MD HOPPER VINAY ([id number]) on 03/01/2025 2:33:43 PM NAME : ELSA PALACIO PID : [id number] : 1940 Gender : Male Race : ORD : [id number] Procedure Date : Feb 28 2025 11:14:35 Edit Date : Mar 01 2025 14:33:46 Diagnosis: SINUS TACHYCARDIA WITH BLOCKED PREMATURE ATRIAL COMPLEXES OTHERWISE NORMAL ECG WHEN COMPARED WITH ECG OF 25-Feb-2025 14:55, SINUS RHYTHM HAS REPLACED ATRIAL FIBRILLATION QUESTIONABLE CHANGE IN QRS AXIS T WAVE INVERSION NO LONGER EVIDENT IN INFERIOR LEADS Confirmed by MD HOPPER VINAY ([id number]) on 03/01/2025 2:33:43 PM Test Reason : Arrhythmia Location : 200 : [facility]101 Overread By : MD HOPPER VINAY Edited By : MD HOPPER VINAY Referred By : SHAWN CHAU Acquired by : ADIN ISBELL Normal [facility] Magnesium SerPl-mCncon 11-09 -2025 Magnesium [Mass/Vol] 1.8 mg/dL Normal 1.7-2.3 [facility] Comment on above: Order Comment: Speci men Type: BLOOD SPECIMEN Ordering Facility: [facility] Address: [address] [place] [address] Performed By: #### 3 016-3, 09809-5, HSTNT, 93904-9, 46436-4, 20547-4 #### [facility] CLIA [id number] [address] [place] aPTT PPPon 02-28-2025 aPTT Coag (PPP) [Time] 63.2 s High 23.0-32.4 [facility] Comment on above: Order Comment: Speci men Type: BLOOD SPECIMEN Ordering Facility: [facility] Address: [address] [place] [address] Performed By: #### 3 016-3, 54096-0, HSTNT, 70357-7, 11837-2, 23307-8 #### [facility] CLIA [id number] [address] [place] aPTT PPPon 02-27-2025 aPTT Coag (PPP) [Time] 60.9 s High 23.0-32.4 [facility] Comment on above: Order Comment: Speci men Type: BLOOD SPECIMEN Ordering Facility: [facility] Address: [address] [place] [address] Performed By: #### 1 4979-9 #### [facility] CLIA [id number] 1 [place] [address] [place] Basic metabolic 2000 panelon 02-26-2025 Anion gap [Moles/Vol] 10 mmol/L Normal 8-15 [facility] Comment on above: Order Comment: Speci men Type: BLOOD SPECIMEN Ordering Facility: [facility] Address: [address] [place] [address] Performed By: #### 3 016-3, 06130-9, HSTNT, 60499-8, 15428-9, 04120-0 #### [facility] CLIA [id number] 1 [place] [address] [place] Calcium [Mass/Vol] 8.9 mg/dL Normal 8.5-10.2 [facility] Comment on above: Order Comment: Speci men Type: BLOOD SPECIMEN Ordering Facility: [facility] Address: [address] [place] [address] Performed By: #### 3 016-3, 78835-6, HSTNT, 58860-5, 15653-6, 21813-1 #### [facility] CLIA [id number] 1 [place] [address] [place] Chloride [Moles/Vol] 103 mmol/L Normal 98-107 [facility] Comment on above: Order Comment: Speci men Type: BLOOD SPECIMEN Ordering Facility: [facility] Address: [address] [place] [address] Performed By: #### 3 016-3, 67503-8, HSTNT, 82489-7, 81032-8, 19490-2 #### [facility] CLIA [id number] [address] [place] [address] [place] CO2 [Moles/Vol] 21 mmol/L Low 22-30 [facility] Comment on above: Order Comment: Speci men Type: BLOOD SPECIMEN Ordering Facility: [facility] Address: [address] [place] [address] Performed By: #### 3 016-3, 44803-2, HSTNT, 59676-4, 95746-3, 01975-2 #### [facility] CLIA [id number] [address] [place] [address] [place] Creatinine [Mass/Vol] 1.13 mg/dL Normal 0.73-1.22 [facility] Comment on above: Order Comment: Speci men Type: BLOOD SPECIMEN Ordering Facility: [facility] Address: [address] [place] [address] Performed By: #### 3 016-3, 75446-5, HSTNT, 42787-0, 00076-4, 09165-7 #### [facility] CLIA [id number] [address] [place] eGFRcr SerPlBld CKD-EPI 2020 64 mL/min/1.73m??? Normal >=60 [facility] Comment on above: Order Comment: Sharon colin Type: BLOOD SPECIMEN Ordering Facility: [facility] Address: [address] [place] [address] Result Comment: Monie mated Glomerular Filtration Rate [...] actual GFR. Performed By: #### 3 016-3, 18742-0, HSTNT, 61230-4, 20983-5, 76463-2 #### [facility] CLIA [id number] [address] [place] Glucose [Mass/Vol] 118 mg/dL High 74-99 [facility] Comment on above: Order Comment: Sharon shaw Type: BLOOD SPECIMEN Ordering Facility: [facility] Address: [address] [place] [address] Result Comment: The [place] [employer] (ADA) provides guidance for cutoff [...] Standards of Medical Care in Diabetes 2016, [place] [employer]. Diabetes Care. 2016.39(Suppl 1). Performed By: #### 3 016-3, 45948-4, HSTNT, 62018-0, 18141-9, 29399-8 #### [facility] CLIA [id number] [address] [place] [address] [place] Potassium [Moles/Vol] 4.1 mmol/L Normal 3.7-5.1 [facility] Comment on above: Order Comment: Speci men Type: BLOOD SPECIMEN Ordering Facility: [facility] Address: [address] [place] [address] Performed By: #### 3 016-3, 20324-2, HSTNT, 76146-2, 52197-1, 08796-6 #### [facility] CLIA [id number] [address] [place] [address] [place] Sodium [Moles/Vol] 134 mmol/L Low 136-144 [facility] Comment on above: Order Comment: Speci men Type: BLOOD SPECIMEN Ordering Facility: [facility] Address: [address] [place] [address] Performed By: #### 3 016-3, 48613-2, HSTNT, 57050-7, 66256-6, 40589-3 #### [facility] CLIA [id number] [address] [place] [address] [place] Urea nitrogen [Mass/Vol] 19 mg/dL Normal 9-24 [facility] Comment on above: Order Comment: Speci men Type: BLOOD SPECIMEN Ordering Facility: [facility] Address: [address] [place] [address] Performed By: #### 3 016-3, 26051-5, HSTNT, 02835-6, 68372-2, 31606-5 #### [facility] CLIA [id number] [address] [place] [address] [place] CBC panel Auto (Bld)on 02-26 Erythrocyte distribution width (RBC) [Ratio] 12.3 % Normal 11.5-15.0 [facility] Comment on above: Order Comment: Speci men Type: BLOOD SPECIMEN Ordering Facility: [facility] Address: [address] [place] [address] Performed By: #### 3 016-3, 11461-8, HSTNT, 93701-6, 24998-8, 92153-5 #### [facility] CLIA [id number] [address] [place] Hematocrit (Bld) [Volume fraction] 39.7 % Normal 39.0-51.0 [facility] Comment on above: Order Comment: Speci men Type: BLOOD SPECIMEN Ordering Facility: [facility] Address: [address] [place] [address] Performed By: #### 3 016-3, 37801-3, HSTNT, 95392-5, 52203-8, 24635-6 #### [facility] CLIA [id number] [address] [place] Hemoglobin (Bld) [Mass/Vol] 13.3 g/dL Normal 13.0-17.0 [facility] Comment on above: Order Comment: Speci men Type: BLOOD SPECIMEN Ordering Facility: [facility] Address: [address] [place] [address] Performed By: #### 3 016-3, 52468-0, HSTNT, 48315-1, 88670-6, 32570-8 #### [facility] CLIA [id number] [address] [place] OF [facility] MCH (RBC) [Entitic mass] 30.5 pg Normal 26.0-34.0 [facility] Comment on above: Order Comment: Speci men Type: BLOOD SPECIMEN Ordering Facility: [facility] Address: [address] [place] [address] Performed By: #### 3 016-3, 57374-3, HSTNT, 56047-8, 23071-6, 17628-1 #### [facility] CLIA [id number] [address] [place] MCHC (RBC) [Mass/Vol] 33.5 g/dL Normal 30.5-36.0 [facility] Comment on above: Order Comment: Speci men Type: BLOOD SPECIMEN Ordering Facility: [facility] Address: [address] [place] [address] Performed By: #### 3 016-3, 99460-5, HSTNT, 27316-2, 67191-3, 88446-4 #### [facility] CLIA [id number] [address] MCV (RBC) [Entitic vol] 91.1 fL Normal 80.0-100.0 [facility] Comment on above: Order Comment: Speci men Type: BLOOD SPECIMEN Ordering Facility: [facility] Address: [address] [place] [address] Performed By: #### 3 016-3, 88625-5, HSTNT, 33262-9, 39173-6, 54918-6 #### [facility] CLIA [id number] [address] Nucleated RBC (Bld) [#/Vol] 10*3/uL Normal <0.01 [facility] Comment on above: Order Comment: Speci men Type: BLOOD SPECIMEN Ordering Facility: [facility] Address: [address] [place] [address] Performed By: #### 3 016-3, 52640-2, HSTNT, 49564-4, 17781-0, 59581-0 #### [facility] CLIA [id number] [address] [place] Platelet mean volume (Bld) [Entitic vol] 10.0 fL Normal 9.0-12.7 [facility] Comment on above: Order Comment: Speci men Type: BLOOD SPECIMEN Ordering Facility: [facility] Address: [address] [place] [address] Performed By: #### 3 016-3, 13892-2, HSTNT, 88164-3, 21173-4, 91345-2 #### [facility] CLIA [id number] [address] [place] Platelets (Bld) [#/Vol] 196 10*3/uL Normal 150-400 [facility] Comment on above: Order Comment: Speci men Type: BLOOD SPECIMEN Ordering Facility: [facility] Address: [address] [place] [address] Performed By: #### 3 016-3, 55602-8, HSTNT, 85462-1, 30569-8, 05575-5 #### [facility] CLIA [id number] [address] OF [facility] RBC (Bld) [#/Vol] 4.36 10*6/uL Normal 4.20-6.00 [facility] Comment on above: Order Comment: Speci men Type: BLOOD SPECIMEN Ordering Facility: [facility] Address: [address] [place] [address] Performed By: #### 3 016-3, 25801-2, HSTNT, 69869-7, 48301-5, 59655-5 #### [facility] CLIA [id number] [address] WBC (Bld) [#/Vol] 8.96 10*3/uL Normal 3.70-11.00 [facility] Comment on above: Order Comment: Speci men Type: BLOOD SPECIMEN Ordering Facility: [facility] Address: [address] [place] [address] Performed By: #### 3 016-3, 90416-5, HSTNT, 59837-1, 29096-7, 25166-5 #### [facility] CLIA [id number] [address] ECHOon 02-26-2025 Echocardiography Echocardiography Report: Transthoracic Echo [facility] Date of service: 02/26/2025 7:28:40 AM [facility] Ordering physician: RITA HENLEY Exam indication: Chest [...] - Exam was compared with the prior [facility] echocardiographic exam performed on 03/14/2020. No significant change noted when compared to report of prior study. * * * Final * * * CC [facility] : [id number] amicsSISUID Normal [facility] aPTT PPPon 02-26-2025 aPTT Coag (PPP) [Time] 61.6 s High 23.0-32.4 [facility] Comment on above: Order Comment: Speci men Type: BLOOD SPECIMEN Ordering Facility: [facility] Address: [address] [place] [address] [place] [address] Performed By: #### 3 016-3, 23726-8, HSTNT, 07412-6, 55491-8, 61684-3 #### [facility] CLIA [id number] [address] [place] ALLIED HEALTHon 02-25-2025 ALLIED HEALTH HNO ID: [id number] Author: EMMY ZUNIGA RN Service: Cardiac Rehab Author Type: Registered Nurse Type: [facility] Filed: 02/25/2025 15:24 Note [...] 25, 2025 TIME: 3:24 PM PAGER/CONTACT #: [phone] [facility] HNO ID: [id number] Author: ARAMIS WISEMAN RT(R) Service: Radiology Author Type: Substitute Teacher Type: [facility] Filed: 02/25/2025 13:30 Note Text: Radiology [...] 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 Anesthesia: No PERIPHERAL IV DATA: Not applicable SIGNED BY: RT Jacqueline(R) February 25, 2025 1:30 PM [facility] Basic metabolic 2000 panelon 02-25-2025 Anion gap [Moles/Vol] 10 mmol/L Normal 8-15 [facility] Comment on above: Order Comment: Speci men Type: BLOOD SPECIMEN Ordering Facility: [facility] Address: [address] [place] [address] Performed By: #### 3 016-3, 60802-6, HSTNT, 04300-8, 03158-9, 45826-6 #### [facility] CLIA [id number] 1 [place] [address] [place] Calcium [Mass/Vol] 8.9 mg/dL Normal 8.5-10.2 [facility] Comment on above: Order Comment: Speci men Type: BLOOD SPECIMEN Ordering Facility: [facility] Address: [address] [place] [address] Performed By: #### 3 016-3, 50943-8, HSTNT, 43371-3, 97396-2, 68873-0 #### [facility] CLIA [id number] 1 [place] [address] [place] Chloride [Moles/Vol] 103 mmol/L Normal 98-107 [facility] Comment on above: Order Comment: Speci men Type: BLOOD SPECIMEN Ordering Facility: [facility] Address: [address] [place] [address] Performed By: #### 3 016-3, 07459-5, HSTNT, 47366-8, 52818-4, 77831-8 #### [facility] CLIA [id number] 1 [place] [address] [place] CO2 [Moles/Vol] 22 mmol/L Normal 22-30 [facility] Comment on above: Order Comment: Speci men Type: BLOOD SPECIMEN Ordering Facility: [facility] Address: [address] [place] [address] Performed By: #### 3 016-3, 25992-1, HSTNT, 89129-4, 69356-0, 85932-1 #### [facility] CLIA [id number] 1 [place] [address] [place] Creatinine [Mass/Vol] 0.96 mg/dL Normal 0.73-1.22 [facility] Comment on above: Order Comment: Speci men Type: BLOOD SPECIMEN Ordering Facility: [facility] Address: [address] [place] [address] Performed By: #### 3 016-3, 40875-0, HSTNT, 21120-4, 79835-6, 24824-9 #### [facility] CLIA [id number] [address] [place] eGFRcr SerPlBld CKD-EPI 2020 77 mL/min/1.73m??? Normal >=60 [facility] Comment on above: Order Comment: Sharon shaw Type: BLOOD SPECIMEN Ordering Facility: [facility] Address: [address] [place] [address] Result Comment: Monie mated Glomerular Filtration Rate [...] actual GFR. Performed By: #### 3 016-3, 59739-3, HSTNT, 38985-1, 92668-7, 74076-0 #### [facility] CLIA [id number] 1 [place] [address] [place] Glucose [Mass/Vol] 124 mg/dL High 74-99 [facility] Comment on above: Order Comment: Sharon shaw Type: BLOOD SPECIMEN Ordering Facility: [facility] Address: [address] [place] [address] Result Comment: The [place] [employer] (ADA) provides guidance for cutoff [...] Standards of Medical Care in Diabetes 2016, [place] [employer]. Diabetes Care. 2016.39(Suppl 1). Performed By: #### 3 016-3, 09427-1, HSTNT, 46798-7, 36410-8, 57640-7 #### [facility] CLIA [id number] [address] [place] Potassium [Moles/Vol] 4.0 mmol/L Normal 3.7-5.1 [facility] Comment on above: Order Comment: Speci men Type: BLOOD SPECIMEN Ordering Facility: [facility] Address: [address] [place] [address] Performed By: #### 3 016-3, 62235-8, HSTNT, 88657-7, 73841-0, 19872-9 #### [facility] CLIA [id number] [address] STATES OF [facility] Sodium [Moles/Vol] 135 mmol/L Low 136-144 [facility] Comment on above: Order Comment: Speci men Type: BLOOD SPECIMEN Ordering Facility: [facility] Address: [address] [place] [address] Performed By: #### 3 016-3, 01289-7, HSTNT, 92151-2, 09643-3, 66047-1 #### [facility] CLIA [id number] [address] STATES OF [facility] Urea nitrogen [Mass/Vol] 16 mg/dL Normal 9-24 [facility] Comment on above: Order Comment: Speci men Type: BLOOD SPECIMEN Ordering Facility: [facility] Address: [address] [place] [address] Performed By: #### 3 016-3, 10181-7, HSTNT, 24166-7, 23989-3, 93655-7 #### [facility] CLIA [id number] 1 [place] [address] [place] CBC W/Diff, Automatedon 11-0 Absolute Neut Normal 2.0-7.7 [facility] Comment on above: Result Comment: DUPL ICATE ORDER, CBCD DONE IN LAST 24HORS, SPOKE WITH KRISTA RN TO VERIFY. Performed By: #### L 100.0100 #### [facility] [address] [place], [address] Result Comment: Canc elled via OM: Order cancelled - Patient discharged HCT Normal 40-54 [facility] Comment on above: Result Comment: DUPL ICATE ORDER, CBCD DONE IN LAST 24HORS, SPOKE WITH [place] RN TO VERIFY. Performed By: #### L 100.0100 #### [facility] [address] [place], [address] Result Comment: Canc elled via OM: Order cancelled - Patient discharged HGB Normal 13.0-16.5 [facility] Comment on above: Result Comment: DUPL ICATE ORDER, CBCD DONE IN LAST 24HORS, SPOKE WITH [place] RN TO VERIFY. Performed By: #### L 100.0100 #### [facility] [address] [place], [address] Result Comment: Canc elled via OM: Order cancelled - Patient discharged MCH Normal 27.0-32.0 [facility] Comment on above: Result Comment: DUPL ICATE ORDER, CBCD DONE IN LAST 24HORS, SPOKE WITH [place] RN TO VERIFY. Performed By: #### L 100.0100 #### [facility] [address] [place], [address] Result Comment: Canc elled via OM: Order cancelled - Patient discharged MCHC Normal 32-36 [facility] Comment on above: Result Comment: DUPL ICATE ORDER, CBCD DONE IN LAST 24HORS, SPOKE WITH [place] RN TO VERIFY. Performed By: #### L 100.0100 #### [facility] [address] [place], [address] Result Comment: Canc elled via OM: Order cancelled - Patient discharged MCV Normal 80-94 [facility] Comment on above: Result Comment: DUPL ICATE ORDER, CBCD DONE IN LAST 24HORS, SPOKE WITH [place] RN TO VERIFY. Performed By: #### L 100.0100 #### [facility] [address] [place], [address] Result Comment: Canc elled via OM: Order cancelled - Patient discharged NEUT% Normal 47-70 [facility] Comment on above: Result Comment: DUPL ICATE ORDER, CBCD DONE IN LAST 24HORS, SPOKE WITH [place] RN TO VERIFY. Performed By: #### L 100.0100 #### [facility] [address] [place], [address] Result Comment: Canc elled via OM: Order cancelled - Patient discharged PLT Normal 150-450 [facility] Comment on above: Result Comment: DUPL ICATE ORDER, CBCD DONE IN LAST 24HORS, SPOKE WITH [place] RN TO VERIFY. Performed By: #### L 100.0100 #### [facility] [address] [place], [address] Result Comment: Canc elled via OM: Order cancelled - Patient discharged RBC Normal 4.6-6.2 [facility] Comment on above: Result Comment: DUPL ICATE ORDER, CBCD DONE IN LAST 24HORS, SPOKE WITH [place] RN TO VERIFY. Performed By: #### L 100.0100 #### [facility] [address] [place], [address] Result Comment: Canc elled via OM: Order cancelled - Patient discharged RDW CV Normal 11.6-14.6 [facility] Comment on above: Result Comment: DUPL ICATE ORDER, CBCD DONE IN LAST 24HORS, SPOKE WITH [place] RN TO VERIFY. Performed By: #### L 100.0100 #### [facility] [address] [place], [address] Result Comment: Canc elled via OM: Order cancelled - Patient discharged RDW SD Normal 35.1-43.9 [facility] Comment on above: Result Comment: DUPL ICATE ORDER, CBCD DONE IN LAST 24HORS, SPOKE WITH [place] RN TO VERIFY. Performed By: #### L 100.0100 #### [facility] [address] [place], [place], [address] Result Comment: Canc elled via OM: Order cancelled - Patient discharged WBC Normal 4.4-11.0 [facility] Comment on above: Result Comment: DUPL ICATE ORDER, CBCD DONE IN LAST 24HORS, SPOKE WITH KRISTA RN TO VERIFY. Performed By: #### L 100.0100 #### [facility] [address] [place], [address] Result Comment: Canc elled via OM: Order cancelled - Patient discharged CBC panel Auto (Bld)on 02-25 Erythrocyte distribution width (RBC) [Ratio] 12.4 % Normal 11.5-15.0 [facility] Comment on above: Order Comment: Speci men Type: BLOOD SPECIMEN Ordering Facility: [facility] Address: [address] [place] [address] Performed By: #### 3 016-3, 65089-1, HSTNT, 10037-9, 31745-5, 72444-5 #### [facility] CLIA [id number] [address] [place] [address] [place] Hematocrit (Bld) [Volume fraction] 41.3 % Normal 39.0-51.0 [facility] Comment on above: Order Comment: Speci men Type: BLOOD SPECIMEN Ordering Facility: [facility] Address: [address] [place] [address] Performed By: #### 3 016-3, 42671-0, HSTNT, 61682-6, 67829-5, 94948-1 #### [facility] CLIA [id number] [address] [place] [address] [place] Hemoglobin (Bld) [Mass/Vol] 14.2 g/dL Normal 13.0-17.0 [facility] Comment on above: Order Comment: Speci men Type: BLOOD SPECIMEN Ordering Facility: [facility] Address: [address] [place] [address] Performed By: #### 3 016-3, 93187-9, HSTNT, 48859-7, 07308-6, 64282-0 #### [facility] CLIA [id number] [address] MCH (RBC) [Entitic mass] 31.2 pg Normal 26.0-34.0 [facility] Comment on above: Order Comment: Speci men Type: BLOOD SPECIMEN Ordering Facility: [facility] Address: [address] [place] [address] Performed By: #### 3 016-3, 22162-1, HSTNT, 81798-6, 50185-7, 26393-7 #### [facility] CLIA [id number] [address] MCHC (RBC) [Mass/Vol] 34.4 g/dL Normal 30.5-36.0 [facility] Comment on above: Order Comment: Speci men Type: BLOOD SPECIMEN Ordering Facility: [facility] Address: [address] [place] [address] Performed By: #### 3 016-3, 18682-8, HSTNT, 17865-8, 83120-2, 18016-6 #### [facility] CLIA [id number] [address] MCV (RBC) [Entitic vol] 90.8 fL Normal 80.0-100.0 [facility] Comment on above: Order Comment: Speci men Type: BLOOD SPECIMEN Ordering Facility: [facility] Address: [address] [place] [address] Performed By: #### 3 016-3, 84360-2, HSTNT, 95235-6, 21705-6, 93191-3 #### [facility] CLIA [id number] [address] Nucleated RBC (Bld) [#/Vol] 10*3/uL Normal <0.01 [facility] Comment on above: Order Comment: Speci men Type: BLOOD SPECIMEN Ordering Facility: [facility] Address: [address] [place] [address] Performed By: #### 3 016-3, 43495-7, HSTNT, 92826-7, 08666-5, 20375-4 #### [facility] CLIA [id number] [address] [place] [address] Platelet mean volume (Bld) [Entitic vol] 10.3 fL Normal 9.0-12.7 [facility] Comment on above: Order Comment: Speci men Type: BLOOD SPECIMEN Ordering Facility: [facility] Address: [address] [place] [address] Performed By: #### 3 016-3, 51614-0, HSTNT, 35742-8, 34669-5, 11475-6 #### [facility] CLIA [id number] [address] [place] [address] [place] Platelets (Bld) [#/Vol] 222 10*3/uL Normal 150-400 [facility] Comment on above: Order Comment: Speci men Type: BLOOD SPECIMEN Ordering Facility: [facility] Address: [address] [place] [address] Performed By: #### 3 016-3, 75516-5, HSTNT, 19551-0, 76703-4, 39299-8 #### [facility] CLIA [id number] [address] [place] [address] [place] RBC (Bld) [#/Vol] 4.55 10*6/uL Normal 4.20-6.00 [facility] Comment on above: Order Comment: Speci men Type: BLOOD SPECIMEN Ordering Facility: [facility] Address: [address] [place] [address] Performed By: #### 3 016-3, 08967-8, HSTNT, 05016-1, 26712-4, 37325-5 #### [facility] CLIA [id number] 1 [place] [address] [place] WBC (Bld) [#/Vol] 10.33 10*3/uL Normal 3.70-11.00 [facility] Comment on above: Order Comment: Speci men Type: BLOOD SPECIMEN Ordering Facility: [facility] Address: [address], [place] [address] Performed By: #### 3 016-3, 79678-6, HSTNT, 58475-7, 71215-4, 73275-6 #### [facility] CLIA [id number] [address] [place] CONSULTon 02-25-2025 CONSULT HNO ID: [id number] Author: RITA HENLEY PA-C Service: Cardiovascular Surgery Author Type: Physician Chemistry Associate Type: Consults Filed: 02/25/2025 17:36 Note Text: CARDIOTHORACIC SURGERY CONSULT / HANDP SERVICE DATE: 02/25/2025 SERVICE TIME: 11:18 AM Subjective PRIMARY SERVICE: Cardiothoracic Surgery CHIEF COMPLAINT: chest pain/ Shortness of Breath on exertion Consult Reason: CABG eval HPI: This is a 85 year old male with a PMHx of HTN, hypothyroidism, BPH, and cluster headaches who presented to [facility] with exertional chest pain and shortness of breath. 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 TTE [...] denies previous cardiac surgery or stenting, prior CO, chest radiation, heart failure, COPD/ lung disease, [...] (more content not included)... Normal [facility] CONSULT HNO ID: [id number] Author: RACHEL PETERS MD Service: Cardiovascular Disease Author Type: Physician Type: Consults Filed: 02/25/2025 11:09 Note Text: Heart, Vascular AND Thoracic [place] Department of Cardiovascular Medicine [facility] CONSULT: CARDIOLOGY SERVICE SERVICE DATE: 02/25/2025 CONSULTING PHYSICIAN: Rachel Peters PCP: Jeremias Damico MD ATTENDING: Omari Heaton MD REASON FOR CONSULT: multivessel CAD Subjective CHIEF COMPLAINT: CABG (coronary artery bypass graft) planned [Z78.9] HISTORY OF PRESENT ILLNESS: Mr. Palacio is a 85 year old male with a history of HTN, hypothyroidism, BPH, a transfer from [facility] yesterday. The patient was apparently well until 2 days ago when he noted dyspnea while he was mowing his lawn. He also had chest pain which was 10/10 in severity. Chest pain was retrosternal and was relieved when he rested. On arrival at [facility] yesterday, he was noted to have uptrending [...] Asya RAEDr Pierce PAF (paroxysmal atrial fibrillation) ([facility]) 02/25/2025 Primary hypertension 10/13/2024 PAST SURGICAL HISTORY [...] (more content not included)... Normal [facility] CT CHEST WO IVCONon 02-26-[address] CHEST WO IVCON * * *Final Report* * * DATE OF EXAM: Feb 25 2025 1:37PM [facility] 0541 - CT CHEST WO IVCON / [...] be communicated with the ordering provider via [employer] staff message or phone message by [employer] within 2 business days of report finalization. --END OF FINDING-- Social Economist: GAEL Transcribe Date/Time: Feb 25 2025 2:53P Dictated by : BELIA ABDUL MD This examination was interpreted and the report reviewed and electronically signed by: BELIA ABDUL MD on Feb 25 2025 3:16PM EST [id number] ACTIONABLE Invalid Interpretation Code [facility] ECG COMPLETEon 02-25-2025 ECG COMPLETE Ventricular Rate : 5 5 BPM QRS Duration : 88 ms Q-T Interval : 460 ms QTC Calculation(Bazett) : 440 ms Calculated R [place] : 85 degrees Calculated T [place] : 267 degrees SINUS BRADYCARDIA WITH 1ST DEGREE A-V BLOCK WITH PREMATURE ATRIAL COMPLEXES AND WITH OCCASIONAL BLOCKED PREMATURE ATRIAL COMPLEXES ST & T WAVE ABNORMALITY, CONSIDER INFERIOR ISCHEMIA ABNORMAL ECG WHEN COMPARED WITH ECG OF 25-Feb-2025 00:38, QUESTIONABLE CHANGE IN QRS AXIS T WAVE INVERSION NOW EVIDENT IN INFERIOR LEADS Confirmed by MD JOHN, IVA ([id number]) on 02/26/2025 12:40:39 PM NAME : ELSA PALACIO PID : [id number] : 1940 Gender : Male Race : ORD : [id number] Procedure Date : Feb 25 2025 14:55:32 [...] INFERIOR LEADS Confirmed by MD BACH ANUBHAV ([id number]) on 02/26/2025 12:40:39 PM Test Reason : Arrhythmia Location : 200 : [facility] Overread By : MD BACH ANUBHAV Edited By : MD BACH ANUBHAV Referred By : SHAWN CHAU Acquired by : CESAR ROLON Normal [facility] ECG COMPLETE Ventricular Rate : 7 1 BPM QRS Duration : 92 ms Q-T Interval : 430 ms QTC Calculation(Bazett) : 467 ms Calculated R [place] : 8 degrees Calculated T [place] : 101 degrees NORMAL SINUS RHYTHM WITH 1ST DEGREE A-V BLOCK POOR R WAVE PROGRESSION NONSPECIFIC ST AND T WAVE ABNORMALITY ABNORMAL ECG NO PREVIOUS ECGS AVAILABLE Confirmed by MD NAPIER DAVID ([id number]) on 02/25/2025 12:33:22 PM NAME : ELSA PALACIO PID : [id number] : 1940 Gender : Male Race : ORD : [id number] Procedure Date : Feb 25 2025 00:38:41 Edit Date : Feb 25 2025 12:33:26 Diagnosis: NORMAL SINUS RHYTHM WITH 1ST DEGREE A-V BLOCK POOR R WAVE PROGRESSION NONSPECIFIC ST AND T WAVE ABNORMALITY ABNORMAL ECG NO PREVIOUS ECGS AVAILABLE Confirmed by MD NAPIER DAVID ([id number]) on 02/25/2025 12:33:22 PM Test Reason : Check QT Location : 200 : [facility] Overread By : MD NAPIER DAVID Edited By : MD NAPIER DAVID Referred By : SHAWN CHAU Acquired by : DIPIKA ADRIAN [facility] HIGH SENSITIVITY TROPONIN To n 02-25-2025 Troponin T.cardiac High sensitivity method [Mass/Vol] 287 ng/L High <12 [facility] Comment on above: Order Comment: Speci men Type: BLOOD SPECIMEN Ordering Facility: [facility] Address: [address], [place] [id number] Performed By: #### 3 016-3, 02618-4, HSTNT, 82919-5, 27449-6, 79785-3 #### [facility] CLIA [id number] 1 [place] [address] [place] HISTORY PHYSICALon HISTORY PHYSICAL HNO ID: [id number] Author: YULISSA THORNTON MD Service: Hospital Medicine [...] hx HTN, hypothyroidism, BPH, a transfer fr [facility] where he presented w/ exertional chest pain/sob w/ uptrending troponins, 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 VSS, currently comfortable. EKG in [place] was NSR, EKG here concerning for Afib. [...] home Tamsulosin/finasterid e Full code [facility] MEDICINE HISTORY AND PHYSICAL EXAM SERVICE DATE: 02/25/2025 SERVICE TIME: 12:23 AM Primary Care Physician: Jeremias Damico MD NIGHT AND WEEKEND COVERAGE: From 7am - 7pm, please call Sound After 7pm, please call cross cover pager #[phone] Subjective CHIEF COMPLAINT: Abnormal heart cath HPI: [...] (more content not included)... Normal [facility] HbA1c (Bld)on 02-25-2025 Average glucose Estimated from glycated hemoglobin (Bld) [Mass/Vol] 123 mg/dL Normal [facility] Comment on above: Order Comment: Speci men Type: BLOOD SPECIMEN Ordering Facility: [facility] Address: [address] [facility] [address] Result Comment: eAG: (Estimated average glucose) is a calculated value from HgbA1c and is market survey representative of the average blood glucose level in the last 2-3 month period. Performed By: #### 3 016-3, 27531-6, HSTNT, 52776-7, 21712-3, 47975-4 #### [facility] CLIA [id number] [address] HbA1c (Bld) [Mass fraction] 5.9 % High 4.3-5.6 [facility] Comment on above: Order Comment: Speci men Type: BLOOD SPECIMEN Ordering Facility: [facility] Address: [address] [place] [address] Result Comment: Amer [place] Diabetes Association guidelines indicate that patients with HgbA1c in the range 5.7-6.4% are at increased risk for development of diabetes, and intervention by lifestyle modification may be beneficial. HgbA1c greater or equal to 6.5% is considered diagnostic of diabetes. Performed By: #### 3 016-3, 96752-9, HSTNT, 12427-2, 31140-0, 68608-8 #### [facility] CLIA [id number] [address] Hepatic function 2000 panelo n 02-25-2025 Albumin [Mass/Vol] 3.9 g/dL Normal 3.9-4.9 [facility] Comment on above: Order Comment: Speci men Type: BLOOD SPECIMEN Ordering Facility: [facility] Address: [address] [place] [address] Performed By: #### 3 016-3, 19516-1, HSTNT, 33163-1, 55224-1, 92585-6 #### [facility] CLIA [id number] [address] STATES [facility] ALP [Catalytic activity/Vol] 90 U/L Normal 38-113 [facility] Comment on above: Order Comment: Speci men Type: BLOOD SPECIMEN Ordering Facility: [facility] Address: [address] [place] [address] Performed By: #### 3 016-3, 12099-9, HSTNT, 00298-6, 05955-0, 97763-3 #### [facility] CLIA [id number] [address] [place] [address] [place] ALT With P-5'-P [Catalytic activity/Vol] 18 U/L Normal 10-54 [facility] Comment on above: Order Comment: Speci men Type: BLOOD SPECIMEN Ordering Facility: [facility] Address: [address] [place] [address] Performed By: #### 3 016-3, 02460-1, HSTNT, 65968-9, 21909-2, 34729-9 #### [facility] CLIA [id number] 1 [place] [address] [place] AST With P-5'-P [Catalytic activity/Vol] 44 U/L High 14-40 [facility] Comment on above: Order Comment: Speci men Type: BLOOD SPECIMEN Ordering Facility: [facility] Address: [address] [place] [address] Performed By: #### 3 016-3, 16155-8, HSTNT, 92055-9, 38573-7, 90655-2 #### [facility] CLIA [id number] [address] [place] [address] [place] Bilirubin [Mass/Vol] 0.6 mg/dL Normal 0.2-1.3 [facility] Comment on above: Order Comment: Speci men Type: BLOOD SPECIMEN Ordering Facility: [facility] Address: [address] [place] [address] Performed By: #### 3 016-3, 04030-8, HSTNT, 50214-7, 64461-7, 71529-9 #### [facility] CLIA [id number] [address] [place] [address] [place] Bilirubin.conjugated [Mass/Vol] 0.2 mg/dL Normal <0.3 [facility] Comment on above: Order Comment: Speci men Type: BLOOD SPECIMEN Ordering Facility: [facility] Address: [address] [place] [address] Performed By: #### 3 016-3, 33565-1, HSTNT, 07141-6, 32526-3, 24603-7 #### [facility] CLIA [id number] [address] [place] Protein [Mass/Vol] 6.4 g/dL Normal 6.3-8.0 [facility] Comment on above: Order Comment: Speci men Type: BLOOD SPECIMEN Ordering Facility: [facility] Address: [address] [place] [address] Performed By: #### 3 016-3, 62306-5, HSTNT, 76101-1, 93306-3, 39685-7 #### [facility] CLIA [id number] 1 [place] [address] [place] Magnesium [facility] 02-25 Magnesium [Mass/Vol] 2.1 mg/dL Normal 1.7-2.3 [facility] Comment on above: Order Comment: Speci men Type: BLOOD SPECIMEN Ordering Facility: [facility] Address: [address] [place] [address] Performed By: #### 3 016-3, 98451-2, HSTNT, 24929-6, 33417-6, 09923-6 #### [facility] CLIA [id number] [address] [place] NT-proBNP SerPl-ncon 02-25 Natriuretic peptide.B prohormone N-Terminal [Mass/Vol] 2640 pg/mL High <450 [facility] Comment on above: Order Comment: Speci men Type: BLOOD SPECIMEN Ordering Facility: [facility] Address: [address] [place] [address] Performed By: #### 3 016-3, 20497-7, HSTNT, 27490-9, 93266-9, 76981-9 #### [facility] CLIA [id number] [address] [place] PT panel Coag (PPP)on 2024 INR Coag (PPP) [Relative time] 1.0 {INR} Normal 0.9-1.3 [facility] Comment on above: Order Comment: Speci men Type: BLOOD SPECIMEN Ordering Facility: [facility] Address: [address] [place] [address] Result Comment: Sigrid min K Antagonist (VKA) Therapeutic Range: INR 2 to 3 (Target INR of 2.5) Note: For patients treated with VKA drugs, such as warfarin, the [place] [employer] 2012 Guideline recommends [...] Chest 2012, 141:7S-47S Jose RA, et al. [facility] 2017, 70: 252-289 Performed By: #### 3 016-3, 15086-6, HSTNT, 51367-0, 72003-1, 94069-2 #### [facility] CLIA [id number] 1 [place] [address] [place] PT Coag (PPP) [Time] 10.5 s Normal 9.7-13.0 [facility] Comment on above: Order Comment: Speci men Type: BLOOD SPECIMEN Ordering Facility: [facility] Address: [address] [place] [address] Performed By: #### 3 016-3, 55106-1, HSTNT, 10585-3, 84476-3, 37704-4 #### [facility] CLIA [id number] 1 [place] [address] [place] STAPHYLOCOCCUS AUREUS AND MR SA SCREEN, PCR, NASALon 02-25-2025 S. aureus and MRSA panel MARYANNE+probe (Nose) Not detected Normal Not Detected [facility] Comment on above: Order Comment: Speci men Type: SWAB Ordering Facility: [facility] Address: [address] [place] [address] Performed By: #### S APCR #### [facility] CLIA [id number] [address] STATES OF [facility] THERAPY NTon 02-25-2025 THERAPY NT HNO ID: [id number] Author: NATA FRY RRT Service: Respiratory Therapy [...] 6:34 PM PAGER/CONTACT #: Normal [facility] TSH SerPl-aCncon 02-25-2025 TSH Qn 1.880 m[IU]/L Normal 0.270-4.200 [facility] Comment on above: Order Comment: Speci men Type: BLOOD SPECIMEN Ordering Facility: [facility] Address: [address] [place], [place] [address] Performed By: #### 1 9123-9, 27659-7 #### [facility] CLIA [id number] [address] OF [facility] TYPE + SCREENon 02-25-2025 ABO B Normal [facility] Comment on above: Order Comment: Speci men Type: BLOOD SPECIMEN Ordering Facility: [facility] Address: [address] [place] [address] Performed By: #### 3 016-3, 23277-6, HSTNT, 38655-5, 24546-2, 80852-8 #### [facility] CLIA [id number] [address] OF [facility] Rh Nom (Bld) Positive Normal [facility] Comment on above: Order Comment: Speci men Type: BLOOD SPECIMEN Ordering Facility: [facility] Address: [address] [place] [address] Performed By: #### 3 016-3, 97204-9, HSTNT, 72398-0, 13070-3, 54620-3 #### [facility] CLIA [id number] [address] TYPE AND SCREEN EXPIRATION 02/28/2025 23:59 Normal [facility] Comment on above: Order Comment: Speci men Type: BLOOD SPECIMEN Ordering Facility: [facility] Address: [address] [place] [address] Performed By: #### 3 016-3, 57182-3, HSTNT, 44219-7, 88287-5, 58507-7 #### [facility] CLIA [id number] [address] OF [facility] US CAROTID BILon 02-25-2025 US CAROTID NGUYỄN * * *Final Report* * * DATE OF EXAM: Feb 25 2025 1:26PM A2U 1077 - US CAROTID NGUYỄN / PROCEDURE REASON: preop cabg * * * * Physician Interpretation * * * * Non-Invasive Vascular Laboratory [facility] Carotid Duplex Bilateral/Complete Date of service/time: 02/25/2025 12:35:13 PM [facility] Name: MR. ELSA PALACIO Date of : [...] * * Final * * * RP Social Economist: AMY Transcribe Date/Time: Feb 25 2025 12:35P Dictated by : MCKAYLA PERSON MD This examination was interpreted and the report reviewed and electronically signed by: MCKAYLA PERSON MD on Feb 26 2025 8:50AM EST [id number] Normal [facility] Urinalysis complete panel (U )on 02-25-2025 Bilirubin Ql (U) Negative Normal Negative [facility] Comment on above: Order Comment: Speci men Type: BLOOD SPECIMEN Ordering Facility: [facility] Address: [address] [place], [place] [address] Performed By: #### 3 016-3, 59794-6, HSTNT, 66703-3, 00110-0, 27305-5 #### [facility] CLIA [id number] [address] [place] Clarity (Unsp spec) Turbid Abnormal Clear [facility] Comment on above: Order Comment: Speci men Type: BLOOD SPECIMEN Ordering Facility: [facility] Address: [address] [place] [address] Performed By: #### 3 016-3, 87849-4, HSTNT, 46415-0, 81006-4, 12997-6 #### [facility] CLIA [id number] [address] Color (U) Yellow Normal yellow [facility] Comment on above: Order Comment: Speci men Type: BLOOD SPECIMEN Ordering Facility: [facility] Address: [address] [place] [address] Performed By: #### 3 016-3, 91042-5, HSTNT, 58060-7, 97367-6, 14271-7 #### [facility] CLIA [id number] [address] Epithelial cells LM.HPF (Urine sed) [#/Area] Few Abnormal None Seen [facility] Comment on above: Order Comment: Speci men Type: BLOOD SPECIMEN Ordering Facility: [facility] Address: [address] [place] [address] Performed By: #### 3 016-3, 03341-7, HSTNT, 50429-0, 65415-0, 26172-6 #### [facility] CLIA [id number] [address] [place] Glucose Test strip (U) [Mass/Vol] Negative Normal Trace, Negative [facility] Comment on above: Order Comment: Speci men Type: BLOOD SPECIMEN Ordering Facility: [facility] Address: [address] [place] [address] Performed By: #### 3 016-3, 10992-2, HSTNT, 59948-3, 87614-2, 18284-8 #### [facility] CLIA [id number] 1 [place] [address] [place] Hemoglobin Ql (U) Negative Normal Negative, Trace [facility] Comment on above: Order Comment: Speci men Type: BLOOD SPECIMEN Ordering Facility: [facility] Address: [address] [place] [address] Performed By: #### 3 016-3, 09887-8, HSTNT, 48879-8, 92557-6, 94831-6 #### [facility] CLIA [id number] [address] OF [facility] Ketones Ql (U) Negative Normal Negative, Trace [facility] Comment on above: Order Comment: Speci men Type: BLOOD SPECIMEN Ordering Facility: [facility] Address: [address] [place] [address] Performed By: #### 3 016-3, 18892-2, HSTNT, 19469-0, 19233-2, 94665-6 #### [facility] CLIA [id number] [address] Leukocyte esterase Test strip Ql (U) Negative Normal Negative, 25 Iliana/uL [facility] Comment on above: Order Comment: Speci men Type: BLOOD SPECIMEN Ordering Facility: [facility] Address: [address] [place] [address] Performed By: #### 3 016-3, 64813-2, HSTNT, 60230-3, 08813-0, 51928-2 #### [facility] CLIA [id number] [address] Nitrite Ql (U) Negative Normal Negative [facility] Comment on above: Order Comment: Speci men Type: BLOOD SPECIMEN Ordering Facility: [facility] Address: [address] [place] [address] Performed By: #### 3 016-3, 79879-6, HSTNT, 99615-5, 27479-6, 33417-8 #### [facility] CLIA [id number] [address] [place] [address] [place] pH (U) 7.5 [pH] Normal 5.0-8.0 [facility] Comment on above: Order Comment: Speci men Type: BLOOD SPECIMEN Ordering Facility: [facility] Address: [address] [place] [address] Performed By: #### 3 016-3, 83724-9, HSTNT, 49715-8, 82762-4, 47063-8 #### [facility] CLIA [id number] [address] [place] [address] [place] Protein (U) [Mass/Vol] Negative Normal Trace, Negative [facility] Comment on above: Order Comment: Speci men Type: BLOOD SPECIMEN Ordering Facility: [facility] Address: [address] [place] [address] Performed By: #### 3 016-3, 91393-4, HSTNT, 83698-7, 95479-5, 65490-0 #### [facility] CLIA [id number] [address] [place] [address] [place] RBC LM.HPF (Urine sed) [#/Area] 11-25 /HPF Abnormal 0-3 /HPF [facility] Comment on above: Order Comment: Speci men Type: BLOOD SPECIMEN Ordering Facility: [facility] Address: [address] [place] [address] Performed By: #### 3 016-3, 73283-2, HSTNT, 12418-7, 62025-7, 12413-4 #### [facility] CLIA [id number] [address] [place] [address] [place] Specific gravity (U) [Rel density] 1.019 Normal 1.005-1.030 [facility] Comment on above: Order Comment: Speci men Type: BLOOD SPECIMEN Ordering Facility: [facility] Address: [address] [place] [address] Performed By: #### 3 016-3, 92148-5, HSTNT, 37108-2, 83654-9, 57519-6 #### [facility] CLIA [id number] [address] [place] Urobilinogen Ql (U) Normal Normal Normal [facility] Comment on above: Order Comment: Speci men Type: BLOOD SPECIMEN Ordering Facility: [facility] Address: [address] [place] [address] Performed By: #### 3 016-3, 02686-4, HSTNT, 86546-3, 63559-3, 83041-3 #### [facility] CLIA [id number] [address] [place] WBC LM.HPF (Urine sed) [#/Area] 0-5 /HPF Normal 0-5 /HPF [facility] Comment on above: Order Comment: Speci men Type: BLOOD SPECIMEN Ordering Facility: [facility] Address: [address] [place] [address] Performed By: #### 3 016-3, 55842-3, HSTNT, 11296-5, 28267-8, 50121-3 #### [facility] CLIA [id number] [address] [place] aPTT PPPon 02-25-2025 aPTT Coag (PPP) [Time] 64.3 s High 23.0-32.4 [facility] Comment on above: Order Comment: Speci men Type: BLOOD SPECIMEN Ordering Facility: [facility] Address: [address] [place] [address] Performed By: #### 3 016-3, 48307-2, HSTNT, 53411-7, 18644-4, 20206-0 #### [facility] CLIA [id number] [address] [place] aPTT Coag (PPP) [Time] 63.5 s High 23.0-32.4 [facility] Comment on above: Order Comment: Speci men Type: BLOOD SPECIMEN Ordering Facility: [facility] Address: [address] [place] [address] Performed By: #### 3 016-3, 88915-1, HSTNT, 77686-0, 87369-2, 68448-8 #### [facility] CLIA [id number] 1 [place] [address] [place] aPTT Coag (PPP) [Time] 35.3 s High 23.0-32.4 [facility] Comment on above: Order Comment: Speci men Type: BLOOD SPECIMEN Ordering Facility: [facility] Address: [facility] [place] [address] Performed By: #### 3 016-3, 16496-9, HSTNT, 76801-8, 46723-8, 61291-8 #### [facility] CLIA [id number] 1 [place] [id number] [facility] Basic Metabolic Profile (BMP )on 02-24-2025 BUN/CRE 16.7 RATIO Normal 10-20 [facility] Comment on above: Performed By: #### L 500.2500, L100.0100, L501.4021 ####[facility] [address] [place], [address] Calcium [Mass/Vol] 9.4 mg/dL Normal 7.6-11.0 [facility] Comment on above: Performed By: #### L 500.2500, L100.0100, L501.4021 ####[facility] [address] [place], [address] Chloride [Moles/Vol] 100 mmol/L Normal 98-108 [facility] Comment on above: Performed By: #### L 500.2500, L100.0100, L501.4021 ####[facility] [address] [place], [address] CO2 [Moles/Vol] 24.9 mmol/L Normal 21.0-32.0 [facility] Comment on above: Performed By: #### L 500.2500, L100.0100, L501.4021 ####[facility] [address] [place], [address] Creatinine [Mass/Vol] 1.11 mg/dL Normal 0.70-1.20 [facility] Comment on above: Performed By: #### L 500.2500, L100.0100, L501.4021 ####[facility] [address] [place], [address] ECRCL 50.24 ml/min Normal 50-250 [facility] Comment on above: Performed By: #### L 500.2500, L100.0100, L501.4021 ####[facility] [address] [place], [address] GAP 9 Normal 5-15 [facility] Comment on above: Performed By: #### L 500.2500, L100.0100, L501.4021 ####[facility] [address] [place], [address] GFR/1.73 sq M.predicted among non-blacks MDRD (S/P/Bld) [Vol rate/Area] 65 mL/min/{1.73_m2} Normal >60 [facility] Comment on above: Result Comment: mL/m in/1.73m2 CKD-EPI Creatinine Equation (2020) Performed By: #### L 500.2500, L100.0100, L501.4021 ####[facility] [address] [place], [address] Glucose [Mass/Vol] 148 mg/dL High 70-99 [facility] Comment on above: Performed By: #### L 500.2500, L100.0100, L501.4021 ####[facility] [address] [place], [address] Potassium [Moles/Vol] 4.1 mmol/L Normal 3.3-5.1 [facility] Comment on above: Performed By: #### L 500.2500, L100.0100, L501.4021 ####[facility] [address] [place], [address] Sodium [Moles/Vol] 135 mmol/L Normal 133-145 [facility] Comment on above: Performed By: #### L 500.2500, L100.0100, L501.4021 ####[facility] [address] [place], [address] Urea nitrogen [Mass/Vol] 19 mg/dL Normal 4-19 [facility] Comment on above: Performed By: #### L 500.2500, L100.0100, L501.4021 ####[facility] [address] [place], [address] CBC W/Diff, Automatedon 11-0 -2024 Absolute Neut Normal 2.0-7.7 [facility] Comment on above: Order Comment: Comme nts: If not done in prior 24 hours Result Comment: DUPL ICATE ORDER, CBCD DONE IN PRIOR 24 HOURS. SPOKE WITH Trudy NELSON RN TO VERIFY Performed By: #### L 300.4310, L300.3900, L100.0100 #### [facility] [address] [place], [address] HCT Normal 40-54 [facility] Comment on above: Order Comment: Comme nts: If not done in prior 24 hours Result Comment: DUPL ICATE ORDER, CBCD DONE IN PRIOR 24 HOURS. SPOKE WITH Trudy NELSON RN TO VERIFY Performed By: #### L 300.4310, L300.3900, L100.0100 #### [facility] [address] [place], [address] HGB Normal 13.0-16.5 [facility] Comment on above: Order Comment: Comme nts: If not done in prior 24 hours Result Comment: DUPL ICATE ORDER, CBCD DONE IN PRIOR 24 HOURS. SPOKE WITH Trudy NELSON RN TO VERIFY Performed By: #### L 300.4310, L300.3900, L100.0100 #### [facility] [address] [place], [address] MCH Normal 27.0-32.0 [facility] Comment on above: Order Comment: Comme nts: If not done in prior 24 hours Result Comment: DUPL ICATE ORDER, CBCD DONE IN PRIOR 24 HOURS. SPOKE WITH Trudy NELSON RN TO VERIFY Performed By: #### L 300.4310, L300.3900, L100.0100 #### [facility] [address] [place], [address] MCHC Normal 32-36 [facility] Comment on above: Order Comment: Comme nts: If not done in prior 24 hours Result Comment: DUPL ICATE ORDER, CBCD DONE IN PRIOR 24 HOURS. SPOKE WITH Trudy NELSON RN TO VERIFY Performed By: #### L 300.4310, L300.3900, L100.0100 #### [facility] [address] [place], [address] MCV Normal 80-94 [facility] Comment on above: Order Comment: Comme nts: If not done in prior 24 hours Result Comment: DUPL ICATE ORDER, CBCD DONE IN PRIOR 24 HOURS. SPOKE WITH Trudy NELSON RN TO VERIFY Performed By: #### L 300.4310, L300.3900, L100.0100 #### [facility] [address] [place], [address] NEUT% Normal 47-70 [facility] Comment on above: Order Comment: Comme nts: If not done in prior 24 hours Result Comment: DUPL ICATE ORDER, CBCD DONE IN PRIOR 24 HOURS. SPOKE WITH Trudy NELSON RN TO VERIFY Performed By: #### L 300.4310, L300.3900, L100.0100 #### [facility] [address] [place], [address] PLT Normal 150-450 [facility] Comment on above: Order Comment: Comme nts: If not done in prior 24 hours Result Comment: DUPL ICATE ORDER, CBCD DONE IN PRIOR 24 HOURS. SPOKE WITH L NELSON RN TO VERIFY Performed By: #### L 300.4310, L300.3900, L100.0100 #### [facility] [address] [place], [address] RBC Normal 4.6-6.2 [facility] Comment on above: Order Comment: Comme nts: If not done in prior 24 hours Result Comment: DUPL ICATE ORDER, CBCD DONE IN PRIOR 24 HOURS. SPOKE WITH Trudy NELSON RN TO VERIFY Performed By: #### L 300.4310, L300.3900, L100.0100 #### [facility] [address] [place], [address] RDW CV Normal 11.6-14.6 [facility] Comment on above: Order Comment: Comme nts: If not done in prior 24 hours Result Comment: DUPL ICATE ORDER, CBCD DONE IN PRIOR 24 HOURS. SPOKE WITH Trudy NELSON RN TO VERIFY Performed By: #### L 300.4310, L300.3900, L100.0100 #### [facility] [address] [place], [address] RDW SD Normal 35.1-43.9 [facility] Comment on above: Order Comment: Comme nts: If not done in prior 24 hours Result Comment: DUPL ICATE ORDER, CBCD DONE IN PRIOR 24 HOURS. SPOKE WITH Trudy NELSON RN TO VERIFY Performed By: #### L 300.4310, L300.3900, L100.0100 #### [facility] [address] [place], [address] WBC Normal 4.4-11.0 [facility] Comment on above: Order Comment: Comme nts: If not done in prior 24 hours Result Comment: DUPL ICATE ORDER, CBCD DONE IN PRIOR 24 HOURS. SPOKE WITH Trudy NELSON RN TO VERIFY Performed By: #### L 300.4310, L300.3900, L100.0100 #### [facility] [address] [place], [address] Absolute Lymph 1.59 X10 3/uL Normal 0.83-4.51 [facility] Comment on above: Performed By: #### L 500.2500, L100.0100, L501.4021 #### [facility] [address] [place], [address] Absolute Neut 6.8 X10 3/uL Normal 2.0-7.7 [facility] Comment on above: Performed By: #### L 500.2500, L100.0100, L501.4021 #### [facility] [address] [place], [address] Basophils/100 WBC (Bld) 0.5 % Normal 0-1 [facility] Comment on above: Performed By: #### L 500.2500, L100.0100, L501.4021 #### [facility] [address] [place], [address] Eosinophils/100 WBC (Bld) 1.7 % Normal 0-5 [facility] Comment on above: Performed By: #### L 500.2500, L100.0100, L501.4021 #### [facility] [address] [place], [address] Erythrocyte distribution width (RBC) [Ratio] 12.2 % Normal 11.6-14.6 [facility] Comment on above: Performed By: #### L 500.2500, L100.0100, L501.4021 #### [facility] [address] [place], [address] Hematocrit (Bld) [Volume fraction] 43.4 % Normal 40-54 [facility] Comment on above: Performed By: #### L 500.2500, L100.0100, L501.4021 #### [facility] [address] [place], [address] Hemoglobin (Bld) [Mass/Vol] 14.4 g/dL Normal 13.0-16.5 [facility] Comment on above: Performed By: #### L 500.2500, L100.0100, L501.4021 #### [facility] [address] [place], [address] IG% 0.300 Normal 0.0-0.9 [facility] Comment on above: Result Comment: IG% - Immature Granulocytes (promyelocytes, myelocytes and metamyelocytes) > 1% indicates that a LEFT SHIFT is Present. Performed By: #### L 500.2500, L100.0100, L501.4021 #### [facility] [address] [place], [address] Lymphocytes/100 WBC (Bld) 17.2 % Low 19-41 [facility] Comment on above: Performed By: #### L 500.2500, L100.0100, L501.4021 #### [facility] [address] [place], [address] MCH (RBC) [Entitic mass] 31.0 pg Normal 27.0-32.0 [facility] Comment on above: Performed By: #### L 500.2500, L100.0100, L501.4021 #### [facility] [address] [place], [address] MCHC (RBC) [Mass/Vol] 33.2 g/dL Normal 32-36 [facility] Comment on above: Performed By: #### L 500.2500, L100.0100, L501.4021 #### [facility] [address] [place], [address] MCV (RBC) [Entitic vol] 93.3 fL Normal 80-94 [facility] Comment on above: Performed By: #### L 500.2500, L100.0100, L501.4021 #### [facility] [address] [place], [address] Monocytes/100 WBC (Bld) 6.5 % Normal 0-10 [facility] Comment on above: Performed By: #### L 500.2500, L100.0100, L501.4021 #### [facility] [address] [place], [address] Neutrophils/100 WBC (Bld) 73.8 % High 47-70 [facility] Comment on above: Performed By: #### L 500.2500, L100.0100, L501.4021 #### [facility] [address] [place], [address] Nucleated RBC (Bld) [#/Vol] 0 10*3/uL Normal 0-5 [facility] Comment on above: Performed By: #### L 500.2500, L100.0100, L501.4021 #### [facility] [address] [place], [address] Platelet mean volume (Bld) [Entitic vol] 9.8 fL Normal 6.2-12.0 [facility] Comment on above: Performed By: #### L 500.2500, L100.0100, L501.4021 #### [facility] [address] [place], [address] Platelets (Bld) [#/Vol] 225 10*3/uL Normal 150-450 [facility] Comment on above: Performed By: #### L 500.2500, L100.0100, L501.4021 #### [facility] [address] [place], [address] RBC (Bld) [#/Vol] 4.65 10*6/uL Normal 4.6-6.2 [facility] Comment on above: Performed By: #### L 500.2500, L100.0100, L501.4021 #### [facility] [address] [place], [address] RDW SD 42.0 fl Normal 35.1-43.9 [facility] Comment on above: Performed By: #### L 500.2500, L100.0100, L501.4021 #### [facility] [address] [place], [address] WBC (Bld) [#/Vol] 9.3 10*3/uL Normal 4.4-11.0 [facility] Comment on above: Performed By: #### L 500.2500, L100.0100, L501.4021 #### [facility] [address] [place], [address] Cardiac Cath Diagnosticon Cardiac Cath Diagnostic [facility] Imaging Services [address] [facility] [place] [address] Cardiac Cath Diagnostic MR#: [id number] Acct: [id number] Name: ELSA PALACIO Rep #: [id number] : 1940 85 From: Augustine Moy MD PCP: Dr. Jeremias Damico MD Status:ADM IN Patient Name: ELSA PALACIO Study Date: 02/24/2025 Performing: Sravan Moy MD Ht: 70 inches 177.8 cm : 1940 Wt: 164.2 lbs 74.39 kg Age: 85 Gender: male BSA: 1.92 PROCEDURE(S) PERFORMED DC01-(89823)LHC/COR/L V CLINICAL PROFILE AND INDICATIONS Indications: ACS [...] Dictated: 02/24/25 1125 Date Transcribed: 02/24/25 1226 Social Economist: NN Signed Normal [facility] Chest 1 View (Portable)on Chest 1 View (Portable) [facility] Imaging Services [address] [place] [address] ( Chest 1 View (Portable) MR#: [id number] Acct: [id number] Name: ELSA PALACIO Rep #: [id number] : 1940 M 85 From: Elvis Jarvis MD PCP: Dr. Jeremias Damico MD Status: REG ER Study: Chest 1 View (Portable) Date of Exam: 02/24/25 Exam# [id number] Ordering Dr: Salomon Marquez MD PROCEDURE: CHEST 1 VIEW (PORTABLE) 02/24/2025 REASON FOR EXAM: CHEST PAIN TECHNIQUE: Frontal view of the chest. COMPARISON: None FINDINGS: Hardware: EKG leads Heart: The heart size is normal. The aorta is atherosclerotic. Lungs: The lungs are clear. Bones: The bones are unremarkable. RAD/Chest 1 View (Portable) IMPRESSION: No acute cardiopulmonary process. Reading Location: [id number] CC: Dr. Salomon Marquez MD; Dr. Jeremias Damico MD Social Economist: Signed Normal [facility] Consultation - Cardiologyon 02-24-2025 Consultation - Cardiology [facility] Medical Records Department [address] [place] [address] Consultation - Cardiology 02/24/25 0957 MR#: [id number] Acct: [id number] Name: ELSA PALACIO Rep #: [id number] : 1940 85 From: Shawn Chau MD [...] of about 5 years ago through the [facility] been evaluated for dyspnea on exertion. [...] through Dr. Milind Ty's office at the [facility] for primary services. The patient is not allergic to iodine. [facility] Medical History (Updated 02/24/25 @ 10:09 by [...] HEENT: Reports (more content not included)... Normal [facility] Echo Completeon 02-24-2025 Echo Complete [facility] Cardiovascular Services [address] [place] [address] Echo Complete 02/24/25 1318 MR#: [id number] Acct: [id number] Name: ELSA PALACIO Rep #: [id number] : 1940 85 From: Donna Ndiaye MD Attending Dr: Dr. Anibal Shore MD Status: ADM IN Ordering Dr: Anibal Shore MD Date: 02/24/25 Location: [facility] Sex: M C Admitted: [...] Physician: Jeremias Damico Performed By: Santino [facility] 02/24/25 1543 Date Donna Ndiaye MD CC: Dr. Anibal Shore MD; Dr. Jeremias Damico MD; Dr. Augustine Moy MD Date Dictated: 02/24/25 1318 Date Transcribed: 02/24/25 1543 Social Economist: Signed Normal [facility] Emergency Department Summary on 02-24-2025 Emergency Department Summary [facility] Medical Records Department [address] [place] [address] Emergency Department Summary 02/24/25 MR#: [id number] Acct: [id number] Name: ELSA PALACOI Rep #: [id number] : 1940 85 From: Salomon Marquez MD PCP: Dr. Jeremias Damico MD Status:ADM IN Location: [place] [address] HPI History of Present Illness Chief Complaint: [...] 4-6 years ago, with no reported abnormalities. [facility] Medical History Hypertension Home Medications ???Medication [...] regular rate, (more content not included)... Normal [facility] H AND P Exam - Hospitaliston 02-24-2025 H&P Exam - Hospitalist [facility] Medical Records Department [address] [place] [address] H P Exam - Hospitalist 02/24/25 0946 MR#: [id number] Acct: [id number] Name: ELSA PALACIO Rep #: [id number] : 1940 85 From: Anibal Shore MD PCP: Dr. Jeremias Damico MD Status:ADM IN Location: [address] HPI - General General Date of [...] Cardiology was consulted patient started on heparin [facility] Medical History (Updated 02/24/25 @ 10:09 by [...] 73.8 H, Lymph % (Auto) 17.2 L, [place] % (Auto) 6.5, Eos % (Auto) 1.7, [...] acute cardiopulmonary process. Reading Location: [facility] Assessment Plan Assessment/Plan (1) ACS (acute coronary syndrome): PLAN: Plan Patient is an 85-year-old gentleman presenting with exertional chest pain with elevated troponin 1. Acute non-STEMI ??? Patient admitted to monitored bed treatment initiated per protoc (more content not included)... Normal [facility] L501.4021on 02-24-2025 Trop T High Sen 218 ng/L Invalid Interpretation Code <=22 [facility] Comment on above: Result Comment: Crit ical Result(s) Called at: 0905 02/24/25 by: NAN LONG??Results read back by same. Performed By: #### L 500.2500, L100.0100, L501.4021 #### [facility] [address] [place], [address] Partial Thromboplast Timeon 02-24-2025 aPTT Coag (Bld) [Time] 27.5 s Normal 24.1-36.2 [facility] Comment on above: Order Comment: Comme nts: If not done in prior 24 hours Performed By: #### L 300.4310, L300.3900, L100.0100 #### [facility] [address] [place], [address] Prothrombin Time w/INRon INR Coag (PPP) [Relative time] 1.0 {INR} Normal [facility] Comment on above: Order Comment: Comme nts: If not done in prior 24 hours Performed By: #### L 300.4310, L300.3900, L100.0100 #### [facility] [address] [place], [address] PT Coag (PPP) [Time] 13.4 s Normal 11.7-14.9 [facility] Comment on above: Order Comment: Comme nts: If not done in prior 24 hours Performed By: #### L 300.4310, L300.3900, L100.0100 #### [facility] [address] [place], [address] Troponin T HS 2 HRon 025 Trop T High Sen 243 ng/L Invalid Interpretation Code <=22 [facility] Comment on above: Result Comment: Crit ical Result(s) Called at:11202/24/25 by:??LTAYLOR Results read back by same. Performed By: #### L 499.0042 ####[facility] [address] [place], [address] Troponin T HS 4 HRon 025 Trop T High Sen 252 ng/L Invalid Interpretation Code <=22 [facility] Comment on above: Result Comment: Crit ical Result(s) Called at: 1251 02/24/25 by: HARPER??Results read back by same. Performed By: #### L 499.0043 ####[facility] [address] [place], [address] [facility] 02-23-2025 [facility] Telephone (FAMPWS) HAKEEMELSA ([id number]) 1940 M Date Time Provider Department 02/23/25 JEREMIAS DAMICO [facility] During your visit today, we recorded [...] Encounter Status:Closed by JESSICA BATES on 02/23/25 [facility] CNOVon 02-16-2025 CNOV Office Visit (FAMPWS ) ELSA PALACIO ([id number]) 1940 M Date Time Provider Department 02/16/25 10:00 AM [facility] During your visit today, we recorded [...] 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 docusate sodium([employer] LIQUI-GELS 100 MG CAP) Take by mouth [...] Past Histories independently gathered by the clinical landing support specialist and the remaining scribed note accurately desc (more content not included)... Normal [facility] CNOVon 12-22-2024 CNOV Office Visit (UROLWS ) ELSA PALACIO ([id number]) 1940 M Date Time Provider Department 12/22/24 2:00 PM SHAQ BISHOP During your visit today, we recorded the following information about you: Leilani Archer LPN 12/22/2024 4:42 PM Signed Verified name and date of . CC Post Void Residual HPI: Elsa Palacio is a 84 year old male. The patient is here now for an appointment with MARTHA Martinez, [place], PA-COV. Procedure: Explained procedure to patient and verbalizes understanding. Performed a PVR. Patient urinated and instructed to empty bladder as much as possible just prior to having PVR done using bladder ultrasound scanner. Results of scan: 0 mL The patient tolerated the procedure well. Plan: Appointment with Shaq. Shaq Bishop PA-C 12/22/2024 4:42 PM Signed [facility] EST PATIENT CLINIC NOTE (M) Some elements copied from his previous note, which have been updated where appropriate, and all reflect current medical decision making from date of this visit. Note was generated by [employer] and edited as appropriate SERVICE DATE: [...] mg by mouth daily at bedtime. docusate sodium([employer] LIQUI-GELS 100 MG CAP) Take by mouth [...] (POCT) Cl (more content not included)... Normal [facility] UA DIP, URINE (POC)on 2024 BILIRUBIN UA (POCT) Negative Negative [facility] CLARITY UA (POCT) Clear [facility] COLOR UA (POCT) Dark yellow [facility] GLUCOSE UA (POCT) Negative Negative mg/dL [facility] Hemoglobin Ql (U) Trace-intact Abnormal Negative [facility] Interpretation and review of laboratory results Abnormal [facility] KETONE UA (POCT) Negative Negative mg/dL [facility] LEUKOCYTES UA (POCT) [facility] NITRITE UA (POCT) Negative [facility] PH UA (POCT) 6.0 4.5 - 8.0 [facility] Protein Ql (U) Negative Negative mg/dL [facility] SPECIFIC GRAVITY UA (POCT) 1.015 1.005 - 1.030 [facility] UROBILINOGEN UA (POCT) 0.2 Normal E.U./dL [facility] Location:[facility], [address] [facility], [place], [place], [id number] [place], [place] [address] POINT OF CARE [facility] CNOVon 12-17-2024 CNOV Office Visit (FAMPWS ) LILA PALACIORAZA Trudy ([id number]) 1940 M Date Time Provider Department 12/17/24 [...] General (Family Medicine) Zeeshan Mahmood APRN.RUTHIE as Gathering Machine Feeder (Family Medicine) Outside specialists seen: Urology, Dermatology [...] (IMITREX STA (more content not included)... Normal [facility] CBC panel Auto (Bld)on 12-14 Erythrocyte distribution width (RBC) [Ratio] 12.3 % Normal 11.5-15.0 [facility] Comment on above: Order Comment: Speci men Type: BLOOD SPECIMENOrdering Facility: [facility] Address: [address] [place] [address] Performed By: #### 5 8410-2 ####[facility] LABCLIA [id number] [place] [address] [place] Hematocrit (Bld) [Volume fraction] 44.3 % Normal 39.0-51.0 [facility] Comment on above: Order Comment: Speci men Type: BLOOD SPECIMENOrdering Facility: [facility] Address: [address] [place] [address] Performed By: #### 5 8410-2 ####[facility] LABCLIA [id number] [place] [address] [place] Hemoglobin (Bld) [Mass/Vol] 14.7 g/dL Normal 13.0-17.0 [facility] Comment on above: Order Comment: Speci men Type: BLOOD SPECIMENOrdering Facility: [facility] Address: [address] [place] [address] Performed By: #### 5 8410-2 ####[facility] LABIA [id number] [address] [place] MCH (RBC) [Entitic mass] 30.7 pg Normal 26.0-34.0 [facility] Comment on above: Order Comment: Speci men Type: BLOOD SPECIMENOrdering Facility: [facility] Address: [address] [place] [address] Performed By: #### 5 8410-2 ####[facility] LABIA [id number] [place] [address] [place] MCHC (RBC) [Mass/Vol] 33.2 g/dL Normal 30.5-36.0 [facility] Comment on above: Order Comment: Speci men Type: BLOOD SPECIMENOrdering Facility: [facility] Address: [address] [place] [address] Performed By: #### 5 8410-2 ####[facility] LABIA [id number] [place] [address] [place] MCV (RBC) [Entitic vol] 92.5 fL Normal 80.0-100.0 [facility] Comment on above: Order Comment: Speci men Type: BLOOD SPECIMENOrdering Facility: [facility] Address: [address] [place] [address] Performed By: #### 5 8410-2 ####[facility] LABIA [id number] [place] [address] [place] Nucleated RBC (Bld) [#/Vol] 10*3/uL Normal <0.01 [facility] Comment on above: Order Comment: Speci men Type: BLOOD SPECIMENOrdering Facility: [facility] Address: [address] [place] [address] Performed By: #### 5 8410-2 ####[facility] LABIA [id number] [address], [place] [address] [place] Platelet mean volume (Bld) [Entitic vol] 10.4 fL Normal 9.0-12.7 [facility] Comment on above: Order Comment: Speci men Type: BLOOD SPECIMENOrdering Facility: [facility] Address: [address] [place] [address] Performed By: #### 5 8410-2 ####[facility] LABIA [id number] [place] [address] [place] Platelets (Bld) [#/Vol] 213 10*3/uL Normal 150-400 [facility] Comment on above: Order Comment: Speci men Type: BLOOD SPECIMENOrdering Facility: [facility] Address: [address] [place] [address] Performed By: #### 5 8410-2 ####[facility] LABIA [id number] [place] [id number] [place] RBC (Bld) [#/Vol] 4.79 10*6/uL Normal 4.20-6.00 [facility] Comment on above: Order Comment: Speci men Type: BLOOD SPECIMENOrdering Facility: [facility] Address: [address] [place] [address] Performed By: #### 5 8410-2 ####[facility] LABCLIA [id number] [address] [address] [place] WBC (Bld) [#/Vol] 8.26 10*3/uL Normal 3.70-11.00 [facility] Comment on above: Order Comment: Speci men Type: BLOOD SPECIMENOrdering Facility: [facility] Address: [address] [place] [address] Performed By: #### 5 8410-2 ####[facility] LABCLIA [id number] [address] [address] [place] Comprehensive metabolic 2000 panelon 12-14-2024 Albumin [Mass/Vol] 3.9 g/dL Normal 3.9-4.[address] [facility] Comment on above: Order Comment: Speci men Type: BLOOD SPECIMENOrdering Facility: [facility] Address: [address] [place] [address] Performed By: #### 2 4331-1, 62064-8, 3015-3 ####[facility] LABCLIA [id number] [place] [address] [place] ALP [Catalytic activity/Vol] 93 U/L Normal 38-113 [facility] Comment on above: Order Comment: Speci men Type: BLOOD SPECIMENOrdering Facility: [facility] Address: [address] [place] [address] Performed By: #### 2 4331-1, 47944-5, 3015-3 ####[facility] LABCLIA [id number] [address] [address] [place] ALT [Catalytic activity/Vol] 15 U/L Normal 10-54 [facility] Comment on above: Order Comment: Speci men Type: BLOOD SPECIMENOrdering Facility: [facility] Address: [address] [place], [place] [address] Performed By: #### 2 4331-1, 22031-3, 6-3 ####[facility] LABCLIA [id number] [address] [address] [place] Anion gap [Moles/Vol] 11 mmol/L Normal 8-15 [facility] Comment on above: Order Comment: Speci men Type: BLOOD SPECIMENOrdering Facility: [facility] Address: [address] [place], [place] [address] Performed By: #### 2 4331-1, 14841-7, 6-3 ####[facility] LABCLIA [id number] [address] [address] [place] AST [Catalytic activity/Vol] 15 U/L Normal 14-40 [facility] Comment on above: Order Comment: Speci men Type: BLOOD SPECIMENOrdering Facility: [facility] Address: [address] [place] [address] Performed By: #### 2 4331-1, 46451-3, 6-3 ####[facility] LABIA [id number] [place] [address] [place] Bilirubin [Mass/Vol] 0.2 mg/dL Normal 0.2-1.3 [facility] Comment on above: Order Comment: Speci men Type: BLOOD SPECIMENOrdering Facility: [facility] Address: [address] [place], [place] [address] Performed By: #### 2 4331-1, 45512-8, 6-3 ####[facility] LABCLIA [id number] [address] [address] [place] Calcium [Mass/Vol] 9.7 mg/dL Normal 8.5-10.[address] [facility] Comment on above: Order Comment: Speci men Type: BLOOD SPECIMENOrdering Facility: [facility] Address: [address] [place], [place] [address] Performed By: #### 2 4331-1, 21775-9, 3016-3 ####[facility] LABCLIA [id number] [address] [address] [place] Chloride [Moles/Vol] 103 mmol/L Normal 98-107 [facility] Comment on above: Order Comment: Speci men Type: BLOOD SPECIMENOrdering Facility: [facility] Address: [address] [place] [address] Performed By: #### 2 4331-1, 25905-3, 3016-3 ####[facility] LABCLIA [id number] [place] [address] [place] CO2 [Moles/Vol] 24 mmol/L Normal 22-30 [facility] Comment on above: Order Comment: Speci men Type: BLOOD SPECIMENOrdering Facility: [facility] Address: [address] [place] [address] Performed By: #### 2 4331-1, 84849-8, 3016-3 ####[facility] LABCLIA [id number] [place] [address] [place] Creatinine [Mass/Vol] 1.13 mg/dL Normal 0.73-1.22 [facility] Comment on above: Order Comment: Speci men Type: BLOOD SPECIMENOrdering Facility: [facility] Address: [address] [place] [address] Performed By: #### 2 4331-1, 09010-0, 3016-3 ####[facility] LABCLIA [id number] [place] [address] [place] eGFRcr SerPlBld CKD-EPI 2020 64 mL/min/1.73m??? Normal >=60 [facility] Comment on above: Order Comment: Speci men Type: BLOOD SPECIMENOrdering Facility: [facility] Address: [address] [place] [address] Result Comment: Monie mated Glomerular Filtration Rate [...] Performed By: #### 2 4331-1, , 3 ####[facility] LABCLIA [id number] [facility] [address] [address] [place] Glucose [Mass/Vol] 113 mg/dL High 74-[address] [facility] Comment on above: Order Comment: Speci men Type: BLOOD SPECIMENOrdering Facility: [facility] Address: [address] [place] [address] Result Comment: The [place] Diabetes Association (ADA) provides guidance for cutoff [...] Standards of Medical Care in Diabetes 2016, [place] Diabetes Association. Diabetes Care. 2016.39(Suppl 1). Performed By: #### 2 4331-1, , 3015-06 ####[facility] LABCLIA [id number] [facility]OSPITALK [address] [address] [place] Potassium [Moles/Vol] 4.6 mmol/L Normal 3.7-5.1 [facility] Comment on above: Order Comment: Sharon men Type: BLOOD SPECIMENOrdering Facility: [facility] Address: [address] [place] [address] Performed By: #### 2 4331-1, , 3015-06 ####[facility] LABCLIA [id number] [facility] [address] [place] [address] [place] Protein [Mass/Vol] 6.2 g/dL Low 6.3-8.[address] [facility] Comment on above: Order Comment: Speci men Type: BLOOD SPECIMENOrdering Facility: [facility] Address: [address] [place] [address] Performed By: #### 2 4331-1, , 3 ####[facility] LABCLIA [id number] [facility] [address] [place] [address] [place] Sodium [Moles/Vol] 138 mmol/L Normal 136-[address] [facility] Comment on above: Order Comment: Speci men Type: BLOOD SPECIMENOrdering Facility: [facility] Address: [address] [place], [place] [address] Performed By: #### 2 4331-1, , 3015-06 ####[facility] LABCLIA [id number] [address] [address] [place] Urea nitrogen [Mass/Vol] 18 mg/dL Normal 9-24 [facility] Comment on above: Order Comment: Speci men Type: BLOOD SPECIMENOrdering Facility: [facility] Address: [address] [place], [place] [address] Performed By: #### 2 4331-1, , 3015-06 ####[facility] LABCLIA [id number] [address] [place] [address] [place] Lipid 1996 panelon 5 Cholesterol [Mass/Vol] 186 mg/dL Normal <200 [facility] Comment on above: Order Comment: Speci men Type: BLOOD SPECIMENOrdering Facility: [facility] Address: [address] [place] [address] Result Comment: <200 mg/dL, Desirable 200-239 mg/dL, Borderline high >239 mg/dL, High Performed By: #### 2 4331-1, , 3015-06 ####[facility] LABCLIA [id number] [address] [place] [address] [place] Cholesterol in HDL [Mass/Vol] 45 mg/dL Normal >39 [facility] Comment on above: Order Comment: Sharon shaw Type: BLOOD SPECIMENOrdering Facility: [facility] Address: [address] [place] [address] Result Comment: 40-5 9 mg/dL, Acceptable >59 mg/dL, High: Negative risk factor for coronary heart disease <40 mg/dL, Low: Positive risk factor for coronary heart disease Performed By: #### 2 4331-1, 13408-6, 6-3 ####[facility] LABIA [id number] [address] STATES OF [facility] Cholesterol in LDL [Mass/Vol] 116 mg/dL High <100 [facility] Comment on above: Order Comment: Teresebrian shaw Type: BLOOD SPECIMENOrdering Facility: [facility] Address: [address] [place] [address] Result Comment: <100 mg/dL, Optimal 100-129 mg/dL, Near optimal/above optimal 130-159 mg/dL, Borderline high 160-189 mg/dL, High >189 mg/dL, Very high Secondary prevention optimal LDL Cholesterol levels are recommended to be <70 mg/dL LDL cholesterol is calculated using the Rodriguez-NIH equation. Performed By: #### 2 4331-1, 29012-6, 3015-3 ####[facility] LABIA [id number] [address] [place] Cholesterol in LDL/Cholesterol in HDL [Mass ratio] 2.58 {ratio} High <2.54 [facility] Comment on above: Order Comment: Sharon shaw Type: BLOOD SPECIMENOrdering Facility: [facility] Address: [address] [place] [address] Result Comment: Refe rence: 1. National Cholesterol Education Program ATP III Guideline At-A-Glance Quick Desk Reference: National Heart, Lung, and Blood [place]. National Institutes of Health. 2001: NIH Publication No. 01-3305. 2. An International Atherosclerosis Society position paper: global recommendations for the management of dyslipidemia: executive summary, Atherosclerosis. 2014: 232(2):410-413. Performed By: #### 2 4331-1, , 3015-06 ####[facility] LABCLIA [id number] [address] [place] [address] [place] Cholesterol in VLDL [Mass/Vol] 24 mg/dL Normal <30 [facility] Comment on above: Order Comment: Speci men Type: BLOOD SPECIMENOrdering Facility: [facility] Address: [address] [place], [place] [address] Performed By: #### 2 4331-1, , 3015-06 ####[facility] LABCLIA [id number] [address] [place] [address] [place] Cholesterol non HDL [Mass/Vol] 141 mg/dL High <130 [facility] Comment on above: Order Comment: Speci men Type: BLOOD SPECIMENOrdering Facility: [facility] Address: [address] [place] [address] Result Comment: <130 mg/dL, Optimal 130-159 mg/dL, Near optimal/above optimal 160-189 mg/dL, Borderline high 190-219 mg/dL, High >219 mg/dL, Very high Secondary prevention optimal non HDL Cholesterol levels are recommended to be <100 mg/dL Performed By: #### 2 4331-1, , 3015-06 ####[facility] LABCLIA [id number] [address] [place] [address] [place] Cholesterol.total/Cho lesterol in HDL [Mass ratio] 4.13 {ratio} Normal <5.10 [facility] Comment on above: Order Comment: Speci men Type: BLOOD SPECIMENOrdering Facility: [facility] Address: [address] [place] [address] Performed By: #### 2 4331-1, , 3015-06 ####[facility] LABCLIA [id number] [address] [place] [address] [place] FASTING TIME 12 hrs Normal [facility] Comment on above: Order Comment: Speci men Type: BLOOD SPECIMENOrdering Facility: [facility] Address: [address] [place] [address] Performed By: #### 2 4331-1, 89128-3, 3 ####[facility] LABCLIA [id number] [place] [id number] [place] Triglyceride [Mass/Vol] 140 mg/dL Normal <150 [facility] Comment on above: Order Comment: Speci men Type: BLOOD SPECIMENOrdering Facility: [facility] Address: [address] [place] [address] Result Comment: <150 mg/dL, Normal 150-199 mg/dL, Borderline high 200-499 mg/dL, High >499 mg/dL, Very high Performed By: #### 2 4331-1, 90429-1, 3 ####[facility] LABCLIA [id number] [place] [id number] [place] TSH SerPl-aCncon 12-14-2024 TSH Qn 0.466 m[IU]/L Normal 0.270-4.200 [facility] Comment on above: Order Comment: Speci men Type: BLOOD SPECIMENOrdering Facility: [facility] Address: [address] [place] [address] Performed By: #### 2 4331-1, 70171-7, 3 ####[facility] LABIA [id number] [place] [id number] [place] CNOVon 11-19-2024 CNOV Office Visit (FAMPWS ) ELSA PALACIO ([id number]) 1940 M Date Time Provider Department 11/19/24 [...] mg by mouth daily at bedtime. docusate sodium([employer] LIQUI-GELS 100 MG CAP) Take by mouth [...] to 100 mg daily; prescription sent to [facility] in [place]. - Advised patie (more content not included)... Normal [facility] CNOVon 10-13-2024 CNOV Office Visit (FAMPWS ) ELSA PALACIO ([id number]) 1940 M Date Time Provider Department 10/13/24 4:40 PM [facility] visit today, we recorded [...] mg by mouth daily at bedtime. docusate sodium([employer] LIQUI-GELS 100 MG CAP) Take by mouth [...] Prescription for losartan 50 mg sent to [facility] pharmacy. - Follow- (more content not included)... Normal [facility] CNOVon 09-04-2024 CNOV Office Visit (FAMPWS ) ELSA PALACIO ([id number]) 1940 M Date Time Provider Department 09/04/24 [...] BP and reported readings on 08/27/24 via [employer]. Denies any chest pains, dizziness, SOB, or [...] mg by mouth daily at bedtime. docusate sodium([employer] LIQUI-GELS 100 MG CAP) Take by mouth [...] or Mediterranean (more content not included)... Normal [facility] CNOVon 08-04-2024 CNOV Office Visit (NEHAHC ) ELSA PALACIO ([id number]) 1940 M Date Time Provider Department 08/04/24 9:30 AM [facility] During your visit today, we recorded the following information about you: Pulse Respiration Blood pressure Weight 55/minute 20/minute 147/77 80.5 kg Height 1.762 m Snow Brooks, NIDHI.ELEMENTARY ASSISTANT TEACHER 08/04/2024 10:06 AM Signed [facility] Follow up visit August 04, 2024 Chief [...] mg by mouth daily at bedtime. docusate sodium([employer] LIQUI-GELS 100 MG CAP) Take by mouth [...] last v (more content not included)... Normal [facility] UA DIP, URINE (POC)on 2023 BILIRUBIN UA (POCT) Negative Negative [facility] CLARITY UA (POCT) Clear [facility] COLOR UA (POCT) Dark yellow [facility] GLUCOSE UA (POCT) Negative Negative mg/dL [facility] Hemoglobin Ql (U) Negative Negative [facility] KETONE UA (POCT) Negative Negative mg/dL [facility] LEUKOCYTES UA (POCT) Negative Negative [facility] NITRITE UA (POCT) Negative Negative [facility] PH UA (POCT) 5.5 4.5 - 8.0 [facility] Protein Ql (U) Negative Negative mg/dL [facility] SPECIFIC GRAVITY UA (POCT) 1.025 1.005 - 1.030 [facility] UROBILINOGEN UA (POCT) 0.2 Normal E.U./dL [facility] Location:[facility], [address], [place], [place], [id number] [place] [address] POINT OF CARE [facility] ECG COMPLETEon 01-25-2023 Atrial Rate 70 BPM [facility] Calculated P [place] 41 degrees [facility] Calculated R [place] 25 degrees [facility] Calculated T [place] 58 degrees [facility] P-R Interval 208 ms [facility] QRS Duration 88 ms [facility] QT Interval 444 ms [facility] QTC Calculation (Bazett) 479 ms [facility] Ventricular Rate 70 BPM [facility] UA DIP, URINE (POC)on 2022 BILIRUBIN UA (POCT) Small Abnormal Negative [facility] CLARITY UA (POCT) Clear [facility] COLOR UA (POCT) Dark yellow [facility] GLUCOSE UA (POCT) Negative Negative mg/dL [facility] HEMOGLOBIN/BLOOD UA (POCT) Trace-intact Abnormal Negative [facility] KETONE UA (POCT) 15 mg/dL Abnormal Negative mg/dL [facility] LEUKOCYTES UA (POCT) Negative Negative [facility] NITRITE UA (POCT) Negative Negative [facility] PH UA (POCT) 7.0 4.5 - 8.0 [facility] Protein Ql (U) 30 mg/dL Abnormal Negative mg/dL [facility] SPECIFIC GRAVITY UA (POCT) 1.020 1.005 - 1.030 [facility] UROBILINOGEN UA (POCT) 0.2 E.U./dL Normal E.U./dL [facility] UA DIP, URINE (POC)on 2021 BILIRUBIN UA (POCT) Negative Negative [facility] CLARITY UA (POCT) Clear [facility] COLOR UA (POCT) Dark yellow [facility] GLUCOSE UA (POCT) Negative Negative mg/dL [facility] HEMOGLOBIN/BLOOD UA (POCT) Trace-lysed Abnormal Negative [facility] KETONE UA (POCT) Negative Negative mg/dL [facility] LEUKOCYTES UA (POCT) Negative Negative [facility] NITRITE UA (POCT) Negative Negative [facility] PH UA (POCT) 7.0 4.5 - 8.0 [facility] Protein Ql (U) Trace Abnormal Negative mg/dL [facility] SPECIFIC GRAVITY UA (POCT) 1.020 1.005 - 1.030 [facility] UROBILINOGEN UA (POCT) 0.2 E.U./dL Normal E.U./dL [facility] STRESS TEST EXERCISEon 02-02 STRESS TEST EXERCISE NAME : ELSA PALACIO PID : [id number] : 1940 Gender : Male Race : ORD : [id number] Procedure Date : Feb 02 2019 13:37:39 [...] Rate Achieved Test Reason : CAMPOS Location [facility] Overread By : BELIA PHIPPS M.D. Edited By : Francia Hamm Referred By : ZEESHAN MAHMOOD Acquired by : KATHY GARCIA [facility] Telephone (CDLBME) ELSA PALACIO ([id number]) 1940 M Date Time Provider Department 01/30/19 [...] Fully Assessed Reason for Visit: Reminder Call [[id number]] Prescriptions as of 01/30/2019 Sig: DIVALPROEX ER [...] Encounter Status:Closed by BRENDA ZAYAS on 01/30/19 [facility] Vital Signs Date Time Vital Sign Value Performing Clinician Facility 03-03-2025 04:05-0500 SaO2% (BldA) [Mass fraction] 97 % [facility] Comment on above: Order Comment: Specimen Type: BLOOD SPEC IMEN [facility] Address: [address] [place] [address] Performed By: #### 3 016-3, 61303-1, HSTNT, 73158-2, 94179-4, 91869-2 #### [facility] CLIA [id number] [address] [place] [address] [place] 03-02-2025 20:10-0500 SaO2% (BldA) [Mass fraction] 97 % [facility] Comment on above: Order Comment: Specimen Type: BLOOD SPEC IMEN [facility] Address: [address] [place] [address] Performed By: #### 3 016-3, 56923-0, HSTNT, 66390-9, 62837-2, 35384-2 #### [facility] CLIA [id number] [address] 03-02-2025 14:08-0500 SaO2% (BldA) [Mass fraction] 100 % SHAWN CHAU [facility] Comment on above: Order Comment: Specimen Type: BLOOD SPEC IMEN [facility] Address: [address] [place] [address] Performed By: #### 3 016-3, 64438-3, HSTNT, 02806-4, 37738-9, 60739-4 #### [facility] CLIA [id number] [address] [place] [id number] [facility] 12-17-2024 09:59-0400 Diastolic blood pressure 82 mm[Hg] Jeremias Damico MD Work Phone: [facility] 12-17-2024 09:59-0400 Systolic blood pressure 158 mm[Hg] Jeremias Damico MD Work Phone: [facility] 12-17-2024 09:53-0400 Body height 179 cm Jeremias Damico MD Work Phone: [facility] 12-17-2024 09:53-0400 Body mass index (BMI) [Ratio] 24.69 kg/m2 Jeremias Damico MD Work Phone: [facility] 12-17-2024 09:53-0400 Body weight 79.1 kg Jeremias Damico MD Work Phone: [facility] 12-17-2024 09:53-0400 Heart rate 61 /min Jeremias Damico MD Work Phone: [facility] 12-17-2024 09:53-0400 Respiratory rate 16 /min Jeremias Damico MD Work Phone: [facility] 12-17-2024 09:53-0400 SaO2% (BldA) [Mass fraction] 99 % Jeremias Damico MD Work Phone: [facility] 11-19-2024 11:09-0400 Body mass index (BMI) [Ratio] 25.12 kg/m2 Jeremias Damico MD Work Phone: [facility] 11-19-2024 11:09-0400 Body weight 78 kg Jeremias Damico MD Work Phone: [facility] 11-19-2024 11:09-0400 Diastolic blood pressure 98 mm[Hg] Jeremias Damico MD Work Phone: [facility] 11-19-2024 11:09-0400 Heart rate 74 /min Jeremias Damico MD Work Phone: [facility] 11-19-2024 11:09-0400 Respiratory rate 16 /min Jeremias Daimco MD Work Phone: [facility] 11-19-2024 11:09-0400 Systolic blood pressure 142 mm[Hg] Jeremias Damico MD Work Phone: [facility] 10-13-2024 16:25-0400 Body mass index (BMI) [Ratio] 25.57 kg/m2 Jeremias Damico MD Work Phone: [facility] 10-13-2024 16:25-0400 Body weight 79.4 kg Jeremias Damico MD Work Phone: [facility] 10-13-2024 16:25-0400 Diastolic blood pressure 82 mm[Hg] Jeremias Damico MD Work Phone: [facility] 10-13-2024 16:25-0400 Heart rate 78 /min Jeremias Damico MD Work Phone: [facility] 10-13-2024 16:25-0400 Respiratory rate 16 /min Jeremias Damico MD Work Phone: [facility] 10-13-2024 16:25-0400 SaO2% (BldA) [Mass fraction] 99 % Jeremias Damico MD Work Phone: [facility] 10-13-2024 16:25-0400 Systolic blood pressure 140 mm[Hg] Jeremias Damico MD Work Phone: [facility] 09-04-2024 16:31-0400 Body mass index (BMI) [Ratio] 25.9 kg/m2 Jeremias Damico MD Work Phone: [facility] 09-04-2024 16:31-0400 Body weight 80.4 kg Jeremias Damico MD Work Phone: [facility] 09-04-2024 16:31-0400 Diastolic blood pressure 98 mm[Hg] Jeremias Damico MD Work Phone: [facility] 09-04-2024 16:31-0400 Heart rate 74 /min Jeremias Damico MD Work Phone: [facility] 09-04-2024 16:31-0400 Respiratory rate 16 /min Jeremias Damico MD Work Phone: [facility] 09-04-2024 16:31-0400 Systolic blood pressure 160 mm[Hg] Jeremias Damico MD Work Phone: [facility] 08-04-2024 09:17-0400 Body height 176.2 cm Snow Dobrowski GARNETT MECHANIC.ELEMENTARY ASSISTANT TEACHER Work Phone: [facility] 08-04-2024 09:17-0400 Body mass index (BMI) [Ratio] 25.93 kg/m2 Snow Dobrowski GARNETT MECHANIC.ELEMENTARY ASSISTANT TEACHER Work Phone: [facility] 08-04-2024 09:17-0400 Body weight 80.5 kg Snow Dobrowski GARNETT MECHANIC.ELEMENTARY ASSISTANT TEACHER Work Phone: [facility] 08-04-2024 09:17-0400 Diastolic blood pressure 77 mm[Hg] Snow Dobrowski GARNETT MECHANIC.ELEMENTARY ASSISTANT TEACHER Work Phone: [facility] 08-04-2024 09:17-0400 Heart rate 55 /min Snow Dobrowski GARNETT MECHANIC.ELEMENTARY ASSISTANT TEACHER Work Phone: [facility] 08-04-2024 09:17-0400 Respiratory rate 20 /min Snow Dobrowski GARNETT MECHANIC.ELEMENTARY ASSISTANT TEACHER Work Phone: [facility] 08-04-2024 09:17-0400 Systolic blood pressure 147 mm[Hg] Snow Dobrowski GARNETT MECHANIC.ELEMENTARY ASSISTANT TEACHER Work Phone: [facility] 01-30-2024 09:47-0400 Body mass index (BMI) [Ratio] 25.45 kg/m2 Snow Doramonwski GARNETT MECHANIC.ELEMENTARY ASSISTANT TEACHER Work Phone: [facility] 01-30-2024 09:47-0400 Body weight 79 kg Snow Doeverki GARNETT MECHANIC.ELEMENTARY ASSISTANT TEACHER Work Phone: [facility] 01-30-2024 09:47-0400 Diastolic blood pressure 73 mm[Hg] Snow Dobrowski GARNETT MECHANIC.ELEMENTARY ASSISTANT TEACHER Work Phone: [facility] 01-30-2024 09:47-0400 Heart rate 63 /min Snow Doeverki GARNETT MECHANIC.ELEMENTARY ASSISTANT TEACHER Work Phone: [facility] 01-30-2024 09:47-0400 SaO2% (BldA) [Mass fraction] 97 % Snow Dogunner GARNETT MECHANIC.ELEMENTARY ASSISTANT TEACHER Work Phone: [facility] 01-30-2024 09:47-0400 Systolic blood pressure 155 mm[Hg] Snow Dobrowski GARNETT MECHANIC.ELEMENTARY ASSISTANT TEACHER Work Phone: [facility] 01-24-2024 10:11-0400 Body mass index (BMI) [Ratio] 25.35 kg/m2 Zeeshan Mahmood GARNETT MECHANIC.ELEMENTARY ASSISTANT TEACHER Work Phone: [facility] 01-24-2024 10:11-0400 Body weight 78.7 kg Zeeshan Renaldo GARNETT MECHANIC.ELEMENTARY ASSISTANT TEACHER Work Phone: [facility] 01-24-2024 10:11-0400 Diastolic blood pressure 82 mm[Hg] Zeeshan Renaldo GARNETT MECHANIC.ELEMENTARY ASSISTANT TEACHER Work Phone: [facility] 01-24-2024 10:11-0400 Heart rate 63 /min Zeeshan Renaldo GARNETT MECHANIC.ELEMENTARY ASSISTANT TEACHER Work Phone: [facility] 01-24-2024 10:11-0400 Respiratory rate 16 /min Zeeshan Renaldo GARNETT MECHANIC.ELEMENTARY ASSISTANT TEACHER Work Phone: [facility] 01-24-2024 10:11-0400 SaO2% (BldA) [Mass fraction] 98 % Zeeshan Mahmood APRN.ELEMENTARY ASSISTANT TEACHER Work Phone: [facility] 01-24-2024 10:11-0400 Systolic blood pressure 138 mm[Hg] Zeeshan Mahmood APRN.ELEMENTARY ASSISTANT TEACHER Work Phone: [facility] 12-31-2023 15:27-0400 Body height 176.2 cm Shaq Bishop PA-C Work Phone: [facility] 12-31-2023 15:27-0400 Body mass index (BMI) [Ratio] 25.42 kg/m2 Shaq Bishop PA-C Work Phone: [facility] 12-31-2023 15:27-0400 Body temperature 97.5 [degF] Shaq Bishop PA-C Work Phone: [facility] 12-31-2023 15:27-0400 Body weight 78.93 kg Shaq Bishop PA-C Work Phone: [facility] 12-31-2023 15:27-0400 Diastolic blood pressure 80 mm[Hg] Shaq Bishop PA-C Work Phone: [facility] 12-31-2023 15:27-0400 Heart rate 70 /min Shaq Bishop PA-C Work Phone: [facility] 12-31-2023 15:27-0400 Respiratory rate 16 /min Shaq Bishop PA-C Work Phone: [facility] 12-31-2023 15:27-0400 SaO2% (BldA) [Mass fraction] 97 % Shaq Bishop PA-C Work Phone: [facility] 12-31-2023 15:27-0400 Systolic blood pressure 118 mm[Hg] Shaq Bishop PA-C Work Phone: [facility] 07-14-2023 10:49-0400 Respiratory rate 16 /min [facility] 07-14-2023 08:26-0400 Body height 177.8 cm [facility] 07-14-2023 08:26-0400 Body mass index (BMI) [Ratio] 25 kg/m2 [facility] 07-14-2023 08:26-0400 Body temperature 96.6 [degF] [facility] 07-14-2023 [id number] Body weight 78.92 kg [facility] 07-14-2023 08:26-0400 Diastolic blood pressure 90 mm[Hg] [facility] 07-14-2023 08:26-0400 Heart rate 73 /min [facility] 07-14-2023 08:26-0400 SaO2% (BldA) [Mass fraction] 98 % [facility] 07-14-2023 08:26-0400 Systolic blood pressure 159 mm[Hg] [facility] 03-27-2023 09:06-0500 Body temperature 97.2 [degF] Susan Donis APRN.ELEMENTARY ASSISTANT TEACHER Work Phone: [facility] 03-27-2023 09:06-0500 Body weight 80.29 kg Susan Donis APRN.ELEMENTARY ASSISTANT TEACHER Work Phone: [facility] 03-27-2023 09:06-0500 Diastolic blood pressure 76 mm[Hg] Susan Donis APRN.ELEMENTARY ASSISTANT TEACHER Work Phone: [facility] 03-27-2023 09:06-0500 Heart rate 72 /min Susan Donis APRN.ELEMENTARY ASSISTANT TEACHER Work Phone: [facility] 03-27-2023 09:06-0500 Respiratory rate 16 /min Susan Donis APRN.ELEMENTARY ASSISTANT TEACHER Work Phone: [facility] 03-27-2023 09:06-0500 SaO2% (BldA) [Mass fraction] 98 % Susan Donis APRN.ELEMENTARY ASSISTANT TEACHER Work Phone: [facility] 03-27-2023 09:06-0500 Systolic blood pressure 122 mm[Hg] Susan Donis APRN.ELEMENTARY ASSISTANT TEACHER Work Phone: [facility] 02-01-2023 12:44-0400 Body weight 79.74 kg Zeeshan Renaldo GARNETT MECHANIC.ELEMENTARY ASSISTANT TEACHER Work Phone: [facility] 02-01-2023 12:44-0400 Diastolic blood pressure 80 mm[Hg] Zeeshan Renaldo GARNETT MECHANIC.ELEMENTARY ASSISTANT TEACHER Work Phone: [facility] 02-01-2023 12:44-0400 Heart rate 70 /min Zeeshan Renaldo GARNETT MECHANIC.ELEMENTARY ASSISTANT TEACHER Work Phone: [facility] 02-01-2023 12:44-0400 Respiratory rate 16 /min Zeeshan Renaldo GARNETT MECHANIC.ELEMENTARY ASSISTANT TEACHER Work Phone: [facility] 02-01-2023 12:44-0400 SaO2% (BldA) [Mass fraction] 98 % Zeeshan Renaldo GARNETT MECHANIC.ELEMENTARY ASSISTANT TEACHER Work Phone: [facility] 02-01-2023 12:44-0400 Systolic blood pressure 134 mm[Hg] Zeeshan Renaldo GARNETT MECHANIC.ELEMENTARY ASSISTANT TEACHER Work Phone: [facility] 01-22-2023 10:01-0400 Body height 177.8 cm Zeeshan Renaldo GARNETT MECHANIC.ELEMENTARY ASSISTANT TEACHER Work Phone: [facility] 01-22-2023 10:01-0400 Body temperature 97.5 [degF] Zeeshan Renaldo GARNETT MECHANIC.ELEMENTARY ASSISTANT TEACHER Work Phone: [facility] 01-22-2023 10:01-0400 Body weight 78.83 kg Zeeshan Renaldo GARNETT MECHANIC.ELEMENTARY ASSISTANT TEACHER Work Phone: [facility] 01-22-2023 10:01-0400 Diastolic blood pressure 78 mm[Hg] Zeeshan Renaldo GARNETT MECHANIC.ELEMENTARY ASSISTANT TEACHER Work Phone: [facility] 01-22-2023 10:01-0400 Heart rate 60 /min Zeeshan Renaldo GARNETT MECHANIC.ELEMENTARY ASSISTANT TEACHER Work Phone: [facility] 01-22-2023 10:01-0400 Respiratory rate 16 /min Zeeshan Renaldo GARNETT MECHANIC.ELEMENTARY ASSISTANT TEACHER Work Phone: [facility] 01-22-2023 10:01-0400 SaO2% (BldA) [Mass fraction] 99 % Zeeshan Renaldo GARNETT MECHANIC.ELEMENTARY ASSISTANT TEACHER Work Phone: [facility] 01-22-2023 10:01-0400 Systolic blood pressure 130 mm[Hg] Zeeshan Renaldo GARNETT MECHANIC.ELEMENTARY ASSISTANT TEACHER Work Phone: [facility] 01-21-2023 12:44-0400 Body height 177.8 cm Snow Dobrowski GARNETT MECHANIC.ELEMENTARY ASSISTANT TEACHER Work Phone: [facility] 01-21-2023 12:44-0400 Body weight 74.84 kg Snow Dobrowski GARNETT MECHANIC.ELEMENTARY ASSISTANT TEACHER Work Phone: [facility] 01-21-2023 12:44-0400 Diastolic blood pressure 72 mm[Hg] Snow Dobrowski GARNETT MECHANIC.ELEMENTARY ASSISTANT TEACHER Work Phone: [facility] 01-21-2023 12:44-0400 Heart rate 69 /min Snow Dobrowski GARNETT MECHANIC.ELEMENTARY ASSISTANT TEACHER Work Phone: [facility] 01-21-2023 12:44-0400 Respiratory rate 14 /min Snow Dobrowski GARNETT MECHANIC.ELEMENTARY ASSISTANT TEACHER Work Phone: [facility] 01-21-2023 12:44-0400 SaO2% (BldA) [Mass fraction] 99 % Snow Dobrowski GARNETT MECHANIC.ELEMENTARY ASSISTANT TEACHER Work Phone: [facility] 01-21-2023 12:44-0400 Systolic blood pressure 144 mm[Hg] Snow Dobrowski GARNETT MECHANIC.ELEMENTARY ASSISTANT TEACHER Work Phone: [facility] 05-01-2022 09:58-0500 Body height 177.8 cm Shaq Bishop PA-C Work Phone: [facility] 05-01-2022 09:58-0500 Body temperature 97 [degF] Shaq Bishop PA-C Work Phone: [facility] 05-01-2022 09:58-0500 Body weight 75.75 kg Shaq Bishop PA-C Work Phone: [facility] 05-01-2022 09:58-0500 Diastolic blood pressure 88 mm[Hg] Shaq Bishop PA-C Work Phone: [facility] 05-01-2022 09:58-0500 Heart rate 70 /min Shaq Bishop PA-C Work Phone: [facility] 05-01-2022 09:58-0500 Respiratory rate 12 /min Shaq Bishop PA-C Work Phone: [facility] 05-01-2022 09:58-0500 SaO2% (BldA) [Mass fraction] 98 % Shaq Bishop PA-C Work Phone: [facility] 05-01-2022 09:58-0500 Systolic blood pressure 140 mm[Hg] Shaq Bishop PA-C Work Phone: [facility] 02-16-2022 10:29-0400 Body height 177.8 cm Snow Dobrowski GARNETT MECHANIC.ELEMENTARY ASSISTANT TEACHER Work Phone: [facility] 02-16-2022 10:29-0400 Body weight 73.03 kg Snow Dobrowski GARNETT MECHANIC.ELEMENTARY ASSISTANT TEACHER Work Phone: [facility] 02-16-2022 10:29-0400 Diastolic blood pressure 73 mm[Hg] Snow Dobrowski GARNETT MECHANIC.ELEMENTARY ASSISTANT TEACHER Work Phone: [facility] 02-16-2022 10:29-0400 Heart rate 59 /min Snow Dobrowski GARNETT MECHANIC.ELEMENTARY ASSISTANT TEACHER Work Phone: [facility] 02-16-2022 10:29-0400 Systolic blood pressure 148 mm[Hg] Snow Dobrowski GARNETT MECHANIC.ELEMENTARY ASSISTANT TEACHER Work Phone: [facility] 01-30-2022 11:20-0400 Body height 177.8 cm Shaq Bishop PA-C Work Phone: [facility] 01-30-2022 11:20-0400 Body temperature 97.11 [degF] Shaq Bishop PA-C Work Phone: [facility] 01-30-2022 11:20-0400 Body weight 77.56 kg Shaq Bishop PA-C Work Phone: [facility] 01-30-2022 11:20-0400 Diastolic blood pressure 98 mm[Hg] Shaq Bishop PA-C Work Phone: [facility] 01-30-2022 11:20-0400 Heart rate 64 /min Shaq Bishop PA-C Work Phone: [facility] 01-30-2022 11:20-0400 Respiratory rate 14 /min Shaq Bishop PA-C Work Phone: [facility] 01-30-2022 11:20-0400 SaO2% (BldA) [Mass fraction] 99 % Shaq Bishop PA-C Work Phone: [facility] 01-30-2022 11:20-0400 Systolic blood pressure 154 mm[Hg] Shaq Bishop PA-C Work Phone: [facility] 01-19-2022 13:09-0400 Body height 176.5 cm Zeeshan Mahmood GARNETT MECHANIC.ELEMENTARY ASSISTANT TEACHER Work Phone: [facility] 01-19-2022 13:09-0400 Body temperature 96.6 [degF] Zeeshan Renaldo GARNETT MECHANIC.ELEMENTARY ASSISTANT TEACHER Work Phone: [facility] 01-19-2022 13:09-0400 Body weight 78.7 kg Zeeshan Renaldo GARNETT MECHANIC.ELEMENTARY ASSISTANT TEACHER Work Phone: [facility] 01-19-2022 13:09-0400 Diastolic blood pressure 84 mm[Hg] Zeeshan Renaldo GARNETT MECHANIC.ELEMENTARY ASSISTANT TEACHER Work Phone: [facility] 01-19-2022 13:09-0400 Heart rate 60 /min Zeeshan Renaldo GARNETT MECHANIC.ELEMENTARY ASSISTANT TEACHER Work Phone: [facility] 01-19-2022 13:09-0400 Respiratory rate 16 /min Zeeshan Renaldo GARNETT MECHANIC.ELEMENTARY ASSISTANT TEACHER Work Phone: [facility] 01-19-2022 13: Systolic blood pressure 134 mm[Hg] Zeeshan Mahmood APRN.ELEMENTARY ASSISTANT TEACHER Work Phone: [facility] Encounters Encounter Date Encounter Type Care Provider Facility Start: 02-24-2025 Evaluation and manag ement of inpatient SHAWN CHAU Facility:[facility] Start: 02-24-20[facility] Start: 02-24-2025 ambulatory Shawn Chau Facility :[facility] Start: 02-24-2025 End: 02-24-2025 Evaluation and management of inpatient Anibal Bellorohitnaresh Facility:[facility] Start: 02-16-2025 End: 02-16-2025 [facility] Facility:[facility] Start: 12-22-2024 End: 12-22-2024 Patient encounter procedure Shaq Bishop PA-C Work Phone: Urology Comment on above: 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); Screening for genitourinary condition Start: 12-22-2024 End: 12-22-2024 [facility] Facility:[facility] Start: 12-17-2024 End: 12-17-2024 [facility] Facility:[facility] Start: 12-17-2024 End: 12-17-2024 Patient encounter procedure Jeremias Damico MD Work Phone: [facility] Comment on above: Acquired hypothyroid ism (Primary Dx); Primary hypertension; Encounter for Medicare annual wellness exam; Episodic cluster headache, not intractable; Benign prostatic hyperplasia without lower urinary tract symptoms Start: 12-14-2024 End: 12-14-2024 [facility] Facility:[facility] Start: 11-19-2024 End: 11-19-2024 Office outpatient visit 25 minutes Jeremias Damico MD Work Phone: [facility] Comment on above: Acquired hypothyroid ism (Primary Dx); Primary hypertension Start: 11-19-2024 End: 11-19-2024 [facility] Facility:[facility] Start: 10-13-2024 End: 10-13-2024 Office outpatient visit 15 minutes Jeremias Damico MD Work Phone: [facility] Comment on above: Primary hypertension (Primary Dx) Start: 10-13-2024 End: 10-13-2024 ambulatory [facility] Facility:[facility] Start: 09-04-2024 End: 09-04-2024 Office outpatient visit 25 minutes Jeremias Damico MD Work Phone: [facility] Comment on above: Primary hypertension (Primary Dx) Start: 09-04-2024 End: 09-04-2024 ambulatory [facility] Facility:[facility] Start: 08-27-2024 End: 09-01-2024 ambulatory Zeeshan Mahmood APRN.ELEMENTARY ASSISTANT TEACHER Work Phone: [facility] Comment on above: Blood pressure Start: 08-18-2024 End: 08-18-2024 ambulatory Sarmad Newton RN Work Phone: [employer] [facility] Comment on above: Population Health Na vigation Outreach ([facility] ) Start: 08-04-2024 End: 08-04-2024 [facility] Facility:[facility] Start: 08-04-2024 End: 08-04-2024 Office outpatient visit 15 minutes Snow Brooks APRN.ELEMENTARY ASSISTANT TEACHER Work Phone: Neurology Comment on above: Episodic cluster hea dache, not intractable (Primary Dx) Start: 01-30-2024 End: 01-30-2024 Patient encounter procedure Snow Brooks APRN.ELEMENTARY ASSISTANT TEACHER Work Phone: Neurology Comment on above: Episodic cluster hea dache, not intractable (Primary Dx) Start: 01-24-2024 End: 01-24-2024 Patient encounter procedure Zeeshan Mahmood APRN.ELEMENTARY ASSISTANT TEACHER Work Phone: [facility] Comment on above: Medicare annual well ness visit, subsequent (Primary Dx); Acquired hypothyroidism; Episodic cluster headache, not intractable; Encounter for immunization; Screening for depression; Encounter for screening examination for other mental health and behavioral disorders Start: 01-21-2024 End: 01-21-2024 Nursing evaluation of patient and report Mi Nurse Work Phone: [facility] Comment on above: Episodic cluster hea dache, not intractable Start: 01-09-2024 End: 01-14-2024 Refill Shaq Bishop PA-C Work Phone: Urology Comment on above: Refill Request Start: 01-01-2024 End: 01-03-2024 Patient encounter procedure Jeremias Damico MD Work Phone: [facility] Start: 01-01-2024 End: 01-03-2024 Telephone encounter Jeremias Damico MD Work Phone: [facility] Comment on above: Orders Start: 12-31-2023 End: 12-31-2023 Patient encounter procedure Shaq Bishop PA-C Work Phone: Urology Comment on above: 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) Start: 12-06-2023 End: 12-09-2023 Telephone encounter Snow Brooks APRN.ELEMENTARY ASSISTANT TEACHER Work Phone: Neurology Comment on above: Orders Start: 09-02-2023 Refill Snow zafar APRN.ELEMENTARY ASSISTANT TEACHER Work Phone: Neurology Comment on above: Refill Request Start: 07-14-2023 End: 07-14-2023 Emergency department patient visit [facility] Work Phone: Start: 03-27-2023 End: 03-27-2023 Patient encounter procedure Susan Donis APRN.ELEMENTARY ASSISTANT TEACHER Work Phone: [facility] Comment on above: URI, acute (Primary Dx) Start: 02-18-2023 ambulatory Zeeshan MOE RN.ELEMENTARY ASSISTANT TEACHER Work Phone: [facility] Comment on above: This is part two Start: 02-01-2023 End: 02-01-2023 Office outpatient visit 15 minutes Zeeshan Mahmood APRN.ELEMENTARY ASSISTANT TEACHER Work Phone: [facility] Comment on above: Difficulty sleeping (Primary Dx) Start: 01-24-2023 End: 01-24-2023 Nursing evaluation of patient and report Mi Nurse Work Phone: [facility] Comment on above: Episodic cluster hea dache, not intractable (Primary Dx) Start: 01-22-2023 End: 01-22-2023 Patient encounter procedure Zeeshan Renaldo GARNETT MECHANIC.ELEMENTARY ASSISTANT TEACHER Work Phone: [facility] Comment on above: Medicare annual well ness visit, subsequent (Primary Dx); Encounter for immunization; Acquired hypothyroidism; Episodic cluster headache, not intractable; BPH with obstruction/lower urinary tract symptoms Start: 01-21-2023 End: 01-21-2023 Patient encounter procedure Snow Brooks GARNETT MECHANIC.ELEMENTARY ASSISTANT TEACHER Work Phone: Neurology Comment on above: Episodic cluster hea dache, not intractable (Primary Dx) Start: 12-27-2022 Telephone encounter Snow Buckner APRN.ELEMENTARY ASSISTANT TEACHER Work Phone: Neurology Comment on above: Orders (Labs) Start: 06-06-2022 ambulatory Snow Nimco zafar GARNETT MECHANIC.ELEMENTARY ASSISTANT TEACHER Work Phone: Neurology Comment on above: Increase [...] Request Start: 02-16-2022 ambulatory Snow Nimco zafar GARNETT MECHANIC.ELEMENTARY ASSISTANT TEACHER Work Phone: Neurology Comment on above: EKG Start: 02-16-2022 End: 02-16-2022 Patient encounter procedure Snow Brooks GARNETT MECHANIC.ELEMENTARY ASSISTANT TEACHER Work Phone: Neurology Comment on above: Episodic cluster hea dache, not intractable Start: 02-15-2022 End: 02-15-2022 Nursing evaluation of patient and report Mi Nurse Work Phone: [facility] Comment on above: Episodic cluster hea dache, not intractable Start: 01-30-2022 End: 01-30-2022 Patient encounter procedure Shaq Bishop PA-C Work Phone: Urology Comment on above: Post-void dribbling (Primary Dx); BPH with obstruction/lower urinary tract symptoms Start: 01-19-2022 End: 01-19-2022 Patient encounter procedure Zeeshan Mahmood APRN.ELEMENTARY ASSISTANT TEACHER Work Phone: [facility] Comment on above: Medicare annual well ness visit, subsequent (Primary Dx); Need for influenza vaccination; Immunization due; Episodic cluster headache, not intractable; Acquired hypothyroidism; BPH with obstruction/lower urinary tract symptoms Start: 01-04-2022 Patient encounter status Jeremias Damico MD Work Phone: [address] [place] [address] Start: 01-04-2022 Telephone encounter Jeremias wagoner MD Work Phone: [address] [place] [address] Comment on above: Orders Orders (Lab work) Start: 10-09-2021 Refill Jeremias alex MD Work Phone: [facility] Comment on above: Refill Request Start: 08-29-2021 ambulatory Snow zafar APRN.ELEMENTARY ASSISTANT TEACHER Work Phone: Neurology Comment on above: Verapamil 80mg Procedures Date Procedure Procedure Detail Performing Clinician Start: 03-01-2025 Antibody screen SHAWN CHAU Comment on above: Order Comment: Speci men Type: BLOOD SPECIMEN Ordering Facility: [facility] Address: [address] [place] [address] Performed By: #### 3 016-3, 48198-4, HSTNT, 25353-6, 03138-4, 27802-8 #### [facility] CLIA [id number] [address] [place] Start: 02-25-2025 Antibody screen SHAWN [facility]AU Comment on above: Order Comment: Speci men Type: BLOOD SPECIMEN Ordering Facility: [facility] Address: [facility] [place] [address] Performed By: #### 3 016-3, 84129-5, HSTNT, 44067-6, 32299-9, 37738-0 #### [facility] CLIA [id number] [address] [place] Start: 12-22-2024 Urnls dip stick/tabl et rgnt auto w/o microscopy Shaq Bishop PA-C Work Phone: Start: 01-24-2024 PFIZER-BIONTECH COVI D-19 VACCINE AGE 12+ YR (COMIRNATY) Zeeshan Mahmood APRN.ELEMENTARY ASSISTANT TEACHER Work Phone: Start: 01-24-2024 Adult depression scr eening assessment Zeeshan Mahmood APRN.ELEMENTARY ASSISTANT TEACHER Work Phone: Start: 01-21-2024 Ecg routine ecg w/le ast 12 lds i&r only [facility] Provider Start: 12-31-2023 Urnls dip stick/tabl et rgnt auto w/o microscopy Shaq Bishop PA-C Work Phone: Start: 01-24-2023 Ecg routine ecg w/le ast 12 lds i&r only [facility] Provider Start: 01-22-2023 PFIZER-BIONTECH COVI D-19 VACCINE (2022- SEASON) AGE 12+ YR Zeeshan Mahmood APRN.ELEMENTARY ASSISTANT TEACHER Work Phone: Start: 01-22-2023 INFLUENZA VACCINE, P RSV FREE, AGE 65+ YR, HIGH DOSE, QUADRIVALENT (FLUZONE HIGH-DOSE) Zeeshan Mahmood APRN.ELEMENTARY ASSISTANT TEACHER Work Phone: Start: 05-01-2022 Urnls dip stick/tabl et rgnt auto w/o microscopy Shaq Bishop PA-C Work Phone: Start: 01-30-2022 Urnls dip stick/tabl et rgnt auto w/o microscopy Shaq Bishop PA-C Work Phone: Start: 01-19-2022 INFLUENZA SEASONAL QUADRIVALENT HIGH DOSE AGE 65+ Zeeshan Mahmood GARNETT MECHANIC.ELEMENTARY ASSISTANT TEACHER Work Phone: Start: 01-19-2022 PFIZER-BIONTCanal do [employer] COVI D-19 BIVALENT BOOSTER VACCINE, AGE 12+ YR Zeeshan Mahmood GARNETT MECHANIC.RUTHIE Work Phone: Plan of Treatment Date Care Activity Detail Author Start: 12-15-2027 Diabetes Screening Diabetes Screenin g [facility] Start: 07-31-2027 Urine microalbumin profile [facility] Start: 01-19-2027 Diabetes Screening Diabetes Screenin g [facility] Start: 01-15-2026 Diabetes Screening Diabetes Screenin g [facility] Start: 01-04-2026 End: 01-04-2026 Patient encounter procedure 01/04/2026 9:00 AM EDT Office Visit Urology [address] [place], [place] [id number] Shaq Bishop PA-C [address] [place] [address] yearly Urology Comment on above: yearly Start: 02-16-2025 End: 02-16-2025 Patient encounter procedure 02/16/2025 10:00 AM EDT Office Visit [facility] [address] [place], [place] [id number] Jeremias Damico MD [address] [place], [place] [id number] 2 month f/u--Flu Shot/Covid Shot [facility] Comment on above: 2 month f/u--Flu Anna t/Covid Shot Start: 01-29-2025 End: 01-29-2025 Patient encounter procedure 01/29/2025 8:40 AM EDT Office Visit [facility] [address] [place], [place] [id number] Zeeshan Mahmood APRN.ELEMENTARY ASSISTANT TEACHER [address] [place], [place] [id number] Medicare wellness [facility] Comment on above: Medicare wellness Start: 01-23-2025 Anxiety Screening Anxiety Screening [facility] Start: 01-23-2025 Depression Screening Depression Scre ening [facility] Start: 01-09-2025 DIABETES SCREEN DIABETES SCREEN [facility] Start: 12-21-2024 End: 03-22-2025 CBC panel - Blood by Automated count COMPLETE BLOOD COUNT Lab Routine Primary hypertension Acquired hypothyroidism Expected: 12/21/2024 (Approximate), Expires: 03/22/2025 [facility] Comment on above: Expected: 12/21/2024 (Approximate), Expires: 03/22/2025 Start: 12-21-2024 End: 03-22-2025 Comprehensive metabolic 2000 panel - Serum or Plasma COMPREHENSIVE METABOLIC PANEL Lab Routine Primary hypertension Expected: 12/21/2024 (Approximate), Expires: 03/22/2025 [facility] Comment on above: Expected: 12/21/2024 (Approximate), Expires: 03/22/2025 Start: 12-21-2024 Influenza vaccination Influenza Vacc ine (#1) [facility] Start: 12-21-2024 End: 03-22-2025 Lipid 1996 panel - Serum or Plasma LIPID PANEL, FASTING Lab Routine Primary hypertension Expected: 12/21/2024 (Approximate), Expires: 03/22/2025 [facility] Comment on above: Expected: 12/21/2024 (Approximate), Expires: 03/22/2025 Start: 12-21-2024 End: 03-22-2025 Thyrotropin [Units/volume] in Serum or Plasma THYROID STIMULATING HORMONE Lab Routine Acquired hypothyroidism Expected: 12/21/2024 (Approximate), Expires: 03/22/2025 [facility] Work Phone: Comment on above: Expected: 12/21/2024 (Approximate), Expires: 03/22/2025 Start: 12-17-2024 End: 12-17-2024 Patient encounter procedure 12/17/2024 10:00 AM EDT Office Visit [facility] [place] [address] [place] [address] Jeremias Damico MD [address] [facility] [address] medicare wellness [facility] Comment on above: medicare wellness Start: 11-19-2024 End: 11-19-2024 Patient encounter procedure 11/19/2024 11:20 AM EDT Office Visit [facility] [address] [place] [address] Jeremias Damico MD [address] [place] [address] 1 month f/u BP [facility] Comment on above: 1 month f/u BP Start: 10-13-2024 End: 10-13-2024 Patient encounter procedure 10/13/2024 4:40 PM EDT Office [facility] [address] [place] [address] Jeremias Damico MD [address] [place] [address] 1 month follow up [facility] Comment on above: 1 month follow up Start: 09-04-2024 End: 09-04-2024 Patient encounter procedure 09/04/2024 4:40 PM EDT Office [facility] [address] [place] [address] Jeremias Damico MD [address] [place] [address] 6 month f/u Bp check [facility] Comment on above: 6 month f/u Bp check Start: 07-24-2024 Covid-19 Vaccine ( season) Covid-19 Vaccine ( season) [facility] Start: 04-22-2024 Advance Directive Discussion Advance Directive Discussion [facility] Start: 04-22-2024 Medicare Advantage Annual Wellness Visit Medicare Advantage Annual Wellness Visit [facility] Start: 02-28-2024 DIABETES SCREEN DIABETES SCREEN [facility] Start: 01-30-2024 End: 01-30-2024 Patient encounter procedure 01/30/2024 10:00 AM EDT Office Visit Neurology [address] [place] [address] Snow Brooks, GARNETT MECHANIC.ELEMENTARY ASSISTANT TEACHER [address] [place] [address] headache Neurology Comment on above: headache Start: 01-24-2024 End: 01-24-2024 Patient encounter procedure [facility] Comment on above: Medicare Wellness Start: 01-21-2024 End: 01-21-2024 Nursing evaluation of patient and report 01/21/2024 8:45 AM EDT Nurse Visit [facility] [address] [place] [address] Nurse, [place] [address] [place] [address] ekg [facility] Comment on above: ekg Start: 01-20-2024 End: 01-20-2024 ambulatory 01/20/2024 7:00 AM EDT [facility] [address] [place] [address] [facility] Start: 01-01-2024 End: 04-01-2024 CBC W Auto Differential panel - Blood COMPLETE BLOOD COUNT AND DIFFERENTIAL Lab Routine Medicare annual wellness visit, subsequent Expected: 01/01/2024, Expires: 04/01/2024 [facility] Comment on above: Expected: 01/01/2024 , Expires: 04/01/2024 Start: 01-01-2024 End: 04-01-2024 Comprehensive metabolic 2000 panel - Serum or Plasma COMPREHENSIVE METABOLIC PANEL Lab Routine Medicare annual wellness visit, subsequent Expected: 01/01/2024, Expires: 04/01/2024 [facility] Comment on above: Expected: 01/01/2024 , Expires: 04/01/2024 Start: 01-01-2024 End: 04-01-2024 Lipid 1996 panel - Serum or Plasma LIPID PANEL BASIC Lab Routine Medicare annual wellness visit, subsequent Expected: 01/01/2024, Expires: 04/01/2024 [facility] Work Phone: Comment on above: Expected: 01/01/2024 , Expires: 04/01/2024 Start: 01-01-2024 End: 04-01-2024 Thyrotropin [Units/volume] in Serum or Plasma THYROID STIMULATING HORMONE Lab Routine Acquired hypothyroidism Expected: 01/01/2024, Expires: 04/01/2024 [facility] Comment on above: Expected: 01/01/2024 , Expires: 04/01/2024 Start: 12-22-2023 Covid-19 Vaccine () Covid-19 Vaccine () [facility] Start: 12-22-2023 Covid-19 Vaccine () Covid-19 Vaccine () [facility] Start: 12-22-2023 Covid-19 Vaccine () Covid-19 Vaccine () [facility] Start: 12-22-2023 Influenza vaccination Influenza Vacc ine (#1) [facility] Start: 07-14-2023 [facility] Start: 05-25-2023 Covid-19 Vaccine (6 - Moderna series) Covid-19 Vaccine (6 - Moderna series) [facility] Start: 05-25-2023 Covid-19 Vaccine () Covid-19 Vaccine () [facility] Start: 04-22-2023 Advance Directive Discussion Advance Directive Discussion [facility] Start: 04-22-2023 Behavioral Health Screening Behavioral Health Screening [facility] Start: 03-27-2023 End: 04-10-2023 COVID & INFLUENZA A/B & RSV NAAT, ROUTINE [facility] Work Phone: Comment on above: Expected: 03/27/2023 , Expires: 04/10/2023 Start: 12-21-2022 Influenza vaccination [facility] Start: 05-21-2022 COVID-19 VACCINE (6 - Moderna series) COVID-19 VACCINE (6 - Moderna series) [facility] Start: 04-22-2022 ADVANCE DIRECTIVE DISCUSSION ADVANCE DIRECTIVE DISCUSSION [facility] Start: 04-22-2022 DEPRESSION ASSESSMENT DEPRESSION ASS ESSMENT [facility] Start: 03-21-2022 End: 05-21-2022 Thyrotropin [Units/volume] in Serum or Plasma TSH BLD Lab Routine Acquired hypothyroidism Expected: 03/21/2022 (Approximate), Expires: 05/21/2022 [facility] Work Phone: Comment on above: Expected: 03/21/2022 (Approximate), Expires: 05/21/2022 Start: 01-04-2022 End: 03-06-2022 CBC W Auto Differential panel - Blood CBC + DIFF Lab Routine Wellness examination Expected: 01/04/2022, Expires: 03/06/2022 [facility] Work Phone: Comment on above: Expected: 01/04/2022 , Expires: 03/06/2022 Start: 01-04-2022 End: 03-06-2022 Comprehensive metabolic 2000 panel - Serum or Plasma COMP METABOLIC PANEL Lab Routine Wellness examination Expected: 01/04/2022, Expires: 03/06/2022 [facility] Work Phone: Comment on above: Expected: 01/04/2022 , Expires: 03/06/2022 Start: 01-04-2022 End: 03-06-2022 Lipid 1996 panel - Serum or Plasma LIPID PANEL BASIC Lab Routine Wellness examination Expected: 01/04/2022, Expires: 03/06/2022 [facility] Work Phone: Comment on above: Expected: 01/04/2022 , Expires: 03/06/2022 Start: 01-04-2022 End: 03-06-2022 Thyrotropin [Units/volume] in Serum or Plasma TSH BLD Lab Routine Other specified hypothyroidism Expected: 01/04/2022, Expires: 03/06/2022 [facility] Work Phone: Comment on above: Expected: 01/04/2022 , Expires: 03/06/2022 Start: 12-21-2021 Influenza vaccination INFLUENZA (#1) [facility] Start: 06-24-2021 COVID-19 VACCINE (4 - Booster for Moderna series) COVID-19 VACCINE (4 - Booster for Moderna series) [facility] Start: 04-22-2021 ADVANCE DIRECTIVE DISCUSSION ADVANCE DIRECTIVE DISCUSSION [facility] Start: 02-08-2015 RSV Vaccine (1 - 1-d ose 75+ series) RSV Vaccine (1 - 1-dose 75+ series) [facility] Start: 2000 RSV Vaccine (1 - 1-d ose 60+ series) RSV Vaccine (1 - 1-dose 60+ series) [facility] Start: 02-08-1958 Anxiety Screening Anxiety Screening [facility] Start: 02-08-1958 Depression Screening Depression Scre ening [facility] End: 01-08-2023 ECG COMPLETE ECG COMPLETE ECG Routine Episodic cluster headache, not intractable 1 Occurrences starting 01/08/2022 until 01/08/2023 [facility] Work Phone: Comment on above: 1 Occurrences starti ng 01/08/2022 until 01/08/2023 End: 01-22-2024 ECG COMPLETE ECG COMPLETE ECG Routine Episodic cluster headache, not intractable 1 Occurrences starting 01/21/2023 until 01/22/2024 [facility] Work Phone: Comment on above: 1 Occurrences starti ng 01/21/2023 until 01/22/2024 End: 12-08-2024 ECG COMPLETE ECG COMPLETE ECG Routine Episodic cluster headache, not intractable 1 Occurrences starting 12/09/2023 until 12/08/2024 [facility] Work Phone: Comment on above: 1 Occurrences starti ng 12/09/2023 until 12/08/2024 ECG COMPLETE ECG COMPLETE ECG 01/21/2024 9:00 AM EDT [facility] Patient Education ED Epistaxis (Adult) [facility] Work Phone: Patient referral [facility] Work Phone: POST VOID RESIDUAL POST VOID RES IDUAL Procedures 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 Ordered: 01/30/2022 [facility] Work Phone: Comment on above: Ordered: 01/30/2022 POST VOID RESIDUAL POST VOID RES IDUAL Procedures 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 Ordered: 05/01/2022 [facility] Work Phone: Comment on above: Ordered: 05/01/2022 POST VOID RESIDUAL POST VOID RES IDUAL Procedures Routine BPH without obstruction/lower urinary tract symptoms Ordered: 12/31/2023 [facility] Work Phone: Comment on above: Ordered: 12/31/2023 POST VOID RESIDUAL POST VOID RES IDUAL Procedures Routine BPH without obstruction/lower urinary tract symptoms Screening for genitourinary condition Ordered: 12/22/2024 [facility] Work Phone: Comment on above: Ordered: 12/22/2024 [facility] Immunizations Immunization Date Immunization Notes Care Provider Fa [facility] 01-24-2024 COVID-19 vaccine, ag e 12+ yr (PFIZER-BIONTECH COMIRNATY) Zeeshan Mahmood APRN.ELEMENTARY ASSISTANT TEACHER Work Phone: [facility] 01-24-2024 influenza, high dose seasonal, preservative-free Zeeshan Mahmood APRN.ELEMENTARY ASSISTANT TEACHER Work Phone: [facility] 01-24-2024 influenza virus vacc ine, unspecified formulation Jeremias Damico MD Work Phone: [facility] 01-22-2023 COVID-19 vaccine, ag e 12+ yr, season (PFIZER-BIONTECH) Zeeshan Mahmood APRN.ELEMENTARY ASSISTANT TEACHER Work Phone: [facility] 01-22-2023 influenza (HD-IIV4) vaccine, age 65+ yr, high dose, quadrivalent, PF (FLUZONE HIGH-DOSE) Zeeshan Mahmood GARNETT MECHANIC.ELEMENTARY ASSISTANT TEACHER Work Phone: [facility] 01-22-2023 influenza virus vacc ine, unspecified formulation Snow Brooks GARNETT MECHANIC.ELEMENTARY ASSISTANT TEACHER Work Phone: [facility] 01-19-2022 COVID-19 booster vaccine, age 12+ yr, bivalent (PFIZER-BIONTECH) Zeeshan Mahmood APRN.ELEMENTARY ASSISTANT TEACHER Work Phone: [facility] 01-19-2022 influenza, high-dose , quadrivalent vaccine (FLUZONE HIGH DOSE QUADRIVALENT) Zeeshan Mahmood GARNETT MECHANIC.ELEMENTARY ASSISTANT TEACHER Work Phone: [facility] 01-19-2022 influenza virus vacc ine, unspecified formulation Snow Brooks GARNETT MECHANIC.ELEMENTARY ASSISTANT TEACHER Work Phone: [facility] 02-24-2021 COVID-19 vaccine, fu ll dose (MODERNA) Snow Brooks GARNETT MECHANIC.ELEMENTARY ASSISTANT TEACHER Work Phone: [facility] 01-27-2021 influenza, high-dose , quadrivalent vaccine (FLUZONE HIGH DOSE QUADRIVALENT) Snow Brooks GARNETT MECHANIC.ELEMENTARY ASSISTANT TEACHER Work Phone: [facility] 06-16-2020 COVID-19 vaccine, fu ll dose (MODERNA) Snow Brooks GARNETT MECHANIC.ELEMENTARY ASSISTANT TEACHER Work Phone: [facility] 05-19-2020 COVID-19 vaccine, fu ll dose (MODERNA) Snow Brooks GARNETT MECHANIC.ELEMENTARY ASSISTANT TEACHER Work Phone: [facility] 04-02-2020 zoster vaccine recombinant Snow Doeverki GARNETT MECHANIC.ELEMENTARY ASSISTANT TEACHER Work Phone: [facility] 01-31-2020 influenza, high dose seasonal, preservative-free Snow Dobrowski GARNETT MECHANIC.ELEMENTARY ASSISTANT TEACHER Work Phone: [facility] 01-31-2020 zoster vaccine recombinant Snow Dobrowski GARNETT MECHANIC.ELEMENTARY ASSISTANT TEACHER Work Phone: [facility] 01-19-2019 influenza, high dose seasonal, preservative-free Snow Dobrowski GARNETT MECHANIC.ELEMENTARY ASSISTANT TEACHER Work Phone: [facility] 01-15-2018 influenza, high dose seasonal, preservative-free Snow Dobrowski GARNETT MECHANIC.ELEMENTARY ASSISTANT TEACHER Work Phone: [facility] 07-30-2017 tetanus toxoid, redu regina diphtheria toxoid, and acellular pertussis vaccine, adsorbed Snow Yukiki GARNETT MECHANIC.ELEMENTARY ASSISTANT TEACHER Work Phone: [facility] Work Phone: 02-01-2017 influenza, high dose seasonal, preservative-free Snow Dobrowski GARNETT MECHANIC.[facility] Work Phone: [facility] 02-14-2016 influenza, high dose seasonal, preservative-free Snow Dobrowski GARNETT MECHANIC.[facility] Work Phone: [facility] 04-27-2015 influenza, high dose seasonal, preservative-free Snow Dobrowski GARNETT MECHANIC.[facility] Work Phone: [facility] 04-27-2015 pneumococcal conjuga te vaccine, 13 valent Snow Dobrowski GARNETT MECHANIC.[facility] Work Phone: [facility] 04-27-2015 tetanus toxoid, redu regina diphtheria toxoid, and acellular pertussis vaccine, adsorbed Snow Dobrowski GARNETT MECHANIC.[facility] Work Phone: [facility] 03-15-2014 influenza, high dose seasonal, preservative-free Snow Dobrowski GARNETT MECHANIC.[facility] Work Phone: [facility] Work Phone: 03-11-2013 influenza virus vacc ine, unspecified formulation Snow Dobrowski GARNETT MECHANIC.[facility] Work Phone: [facility] Work Phone: 03-10-2012 influenza virus vacc ine, unspecified formulation Snow Dobrowski GARNETT MECHANIC.[facility] Work Phone: [facility] Work Phone: 04-11-2011 influenza virus vacc ine, unspecified formulation Snow Dobrowski GARNETT MECHANIC.ELEMENTARY ASSISTANT TEACHER Work Phone: [facility] Work Phone: 04-11-2011 zoster vaccine, live Snow D obrowski GARNETT MECHANIC.[facility] Work Phone: [facility] Work Phone: 03-11-2009 influenza virus vacc ine, unspecified formulation Snow Dobrowski GARNETT MECHANIC.[facility] Work Phone: [facility] Work Phone: 03-02-2008 influenza virus vacc ine, unspecified formulation Snow Brooks APRN.ELEMENTARY ASSISTANT TEACHER Work Phone: [facility] Work Phone: 03-18-2007 influenza virus vacc ine, unspecified formulation Snow Brooks APRN.ELEMENTARY ASSISTANT TEACHER Work Phone: [facility] Work Phone: 01-17-2006 pneumococcal polysaccharide vaccine, 23 valent Snow Brooks APRN.ELEMENTARY ASSISTANT TEACHER Work Phone: [facility] Work Phone: 02-03-2005 tetanus and diphther ia toxoids, adsorbed, preservative free, for adult use (2 Lf of tetanus toxoid and 2 Lf of diphtheria toxoid) Snow Brooks APRN.ELEMENTARY ASSISTANT TEACHER Work Phone: [facility] Work Phone: Payers Date Payer Category Payer Self-pay [id number] 2009 Medicare AETNA MEDICARE A ETNA MEDICARE PPO [id number] 2009-Present [phone] [address] [place] [address] PPO [id number] 2009 Medicare AETNA MEDICARE A ETNA MEDICARE PPO [id number] 2009-Present [phone] [address] [place] [address] PPO [id number] 2009 Medicare (Managed Care) AETNA RI HELEN [id number] 2009 Private Health Insurance [id number] Unknown [id number] Unknown [id number] Unknown [id number] Social History Date Type Detail Facility Start: 01-21-2019 End: 01-19-2022 Tobacco smoking status NHIS Ex-smoker [facility] History of tobacco use Cigarette Smoker [facility] Start: 01-21-2019 End: 01-19-2022 Tobacco use and exposure Smokeless tobacco non-user [facility] Start: 07-03-2021 End: 03-27-2023 Alcohol intake Current non-drinker of alcohol (finding) [facility] Start: 11-06-2019 End: 01-18-2022 History SDOH Alcohol Frequency 1 [facility] Start: 02-20-2020 History SDOH Alcohol Std Drinks 98 [facility] Start: 02-20-2020 End: 01-18-2022 History SDOH Social Connections Phone 2 [facility] Start: 11-06-2019 End: 02-20-2020 History SDOH Social Connections Rastafari 3 [facility] Start: 02-20-2020 History SDOH Physical Activity DPW 7 [facility] Start: 11-12-2019 History SDOH Financial 5 [facility] Start: 11-06-2019 Education 20 [facility] Start: 01-21-2019 End: 01-19-2022 Tobacco Comment for 2 years when patient was 20yrs old [facility] Start: 1940 Sex Assigned At Male [facility] History of tobacco use Current smoker [facility] Start: 12-25-2021 End: 02-16-2022 Exposure to SARS-CoV-2 (event) Not sure [facility] Start: 02-20-2020 End: 01-15-2023 History of Social function [facility] Start: 02-20-2020 End: 01-15-2023 Social connection and isolation panel [facility] Start: 03-23-2012 Frequency of Social Gatherings with Friends and Family Not on file [facility] Do you feel stress - tense, restless, nervous, or anxious, or unable to sleep at night because your mind is troubled all the time - these days [OSQ] Not at all [facility] (I/We) worried augustin er (my/our) food would run out before (I/we) got money to buy more. Never true [facility] Work Phone: In the past 12 month s, was there a time when you were not able to pay the mortgage or rent on time? No [facility] Start: 11-17-2018 Gender identity Identifies as male gender (finding) [facility] Start: 11-17-2018 Sexual orientation Heterosexual (finding) [facility] Do you belong to any clubs or organizations such as scientology groups, unions, fraternal or athletic groups, or school groups? Yes [facility] Are you now , , , , never or living with a partner? [facility] How often to you hav e a drink containing alcohol? Never [facility] Start: 07-14-2023 Tobacco smoking status NHIS Unknown if ever smoked [facility] Start: 11-04-2019 None [facility] Start: 11-04-2019 Spouse/ Significant Other [facility] Start: 12-31-2023 End: 12-22-2024 Alcoholic beverage intake [facility] Status Date Assessment Result Facility 03-15-2014 Are you deaf, or do you have serious difficulty hearing No 03/15/2014 1:56 PM MEERA VELASQUEZ [facility] 03-15-2014 Are you blind, or do you have serious difficulty seeing, even when wearing glasses No 03/15/2014 1:56 PM MEERA VELASQUEZ [facility] 03-15-2014 Do you have serious difficulty walking or climbing stairs No 03/15/2014 1:56 PM MEERA VELASQUEZ No [facility] 03-15-2014 Do you have difficul ty dressing or bathing No 03/15/2014 1:56 PM MEERA VELASQUEZ No [facility] 03-15-2014 Because of a physica l, mental, or emotional condition, do you have difficulty doing errands alone such as visiting a physician's office or shopping No 03/15/2014 1:56 PM MEERA VELASQUEZ [facility] Mental Status Date Assessment Result Facility 03-15-2014 Because of a physica l, mental, or emotional condition, do you have serious difficulty concentrating, remembering, or making decisions No 03/15/2014 1:56 PM MEERA VELASQUEZ [facility] Clinical Notes 05-10-2005 to 03-03-2025 Shaq Bishop PA-C - 12/22/2024 2:25 PM Leilani Ma LPN - 12/22/2024 1:46 PM Jeremias Mccoy MD - 12/17/2024 10:00 AM Jeremias Mccoy MD - 11/19/2024 11:20 AM EDT Note Date & Type Note Facility 03-03-2025 Note HNO ID: [id number] Author: ALESSANDRA SANDY RN Service: Care Management Author Type: Registered Nurse Type: Care Mgt Progress Note Filed: 03/03/2025 15:14 Note Text: CARE MANAGEMENT PROGRESS NOTE SERVICE DATE: 03/03/2025 SERVICE TIME: 1510 LOS: 6 days Needs Prior to Discharge: To Be Determined, Home Care Order, Facility or Agency Choices [place] Choice Given: Yes Level of Care Discussed: Home Care Financial Disclosure Provided: Yes Financial Disclosure Comments: CC Affiliation Provider List: Home Care Provider list within the patient's requested geographic area shared with the patient/family: Yes of zip code: [address] Quality and resource use metrics shared with [...] 03, 2025 TIME: 3:10 PM [facility] 03-03-2025 Note HNO ID: [id number] Author: ?, ?, ? Service: Pharmacy Author Type: Substitute Teacher Type: Plan of Care Filed: 03/03/2025 12:31 Note Text: PHARMACY MEDICATION REVIEW Patient Name: Elsa Palacio : 1940 The following medications were updated within the APARTMENT LEASING MANAGER medication list: Medications ADDED to APARTMENT LEASING MANAGER medication list Medications CHANGED on APARTMENT LEASING MANAGER medication list Medications REMOVED from APARTMENT LEASING MANAGER medication list Additional comments: Verified medication information with e-scripts/dispense report and chart review. Confirmed medications with family. Family stated medication list is current. Family stated patient not taking any additional medications or supplements. Required follow up actions for nursing: None The below information represents the best possible medication history: Yes Medication history completed by: Substitute Teacher: Pat Quick (Autopsy Assistant) Source of history: Family: Reliability of source: Appears reliable, clearly identified: Medication name, Medication dose, Medication route, and Medication frequency and Spoke with spouse in room, Pharmacy records: e-scripts/dispense report, and [facility] records Medication nonadherence identified: No barriers noted Reconciliation completed: No, pharmacist not yet reviewed Patient interested in Bedside Delivery Services or using OP Pharmacy at discharge? Unable to assess Preferred outpatient pharmacy: [facility] [place] [address] - [address] [facility] [phone] [address] [facility] [address] [place] [address] - [address] [facility] - [phone] [facility] - [place]ERAM[place] Pizano [id number] - [facility] - [phone] Portal to Registered [facility] Sites Allergies: Cheese (See Vegetab* Comment:cluster [...] once daily. Facility-Administered Medications: None Pat Quick (Autopsy Assistant)[id number] 03/03/2025 [facility] 03-03-2025 Note HNO ID: [id number] Author: AMY SANCHEZ MD Service: Critical Care [...] able SIGNATURE: Amy Sanchez MD [facility]:[phone] DATE of SERVICE: 03/03/2025 [facility] 03-03-2025 Note HNO ID: [id number] Author: BECCA, DALILA, PA-C Service: Cardiovascular Surgery Author Type: Physician Chemistry Associate Type: Progress Notes Filed: 03/03/2025 15:34 Note [...] BPH, and cluster headaches who presented to [place] ED with exertional chest pain and shortness of breath. 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 TTE [...] to time, place and person, alert and pumper brewery strength 5/5 Extremities: normal exam of the [...] median sternotomy wires and sternal plate. Overlying neck skewer leads. Lungs and pleura: No pneumothorax. Diminished [...] -- (more content not included)... [facility] 03-02-2025 Note HNO ID: [id number] Author: DANISH BRUMFIELD APRN.AC/DC REWINDER Service: Anesthesiology Author Type: Nurse Tensioning Machine Operator Type: Anesthesia Procedure Notes Filed: 03/02/2025 08:35 Note Text: ANESTHESIOLOGY PROCEDURE NOTE Airway General Information Procedure Start Time/Medication Administration: 03/02/2025 7:28 AM Procedure End Time: 03/02/2025 7:28 AM Patient location during procedure: OR Patient identity confirmed: arm band and patient Staffing Anesthesiologist: Brooks Montejo MD AC/DC REWINDER: Danish Brumfield APRN.AC/DC REWINDER Performed by: AC/DC REWINDER Indications and Patient Condition Indications for airway [...] March 02, 2025 TIME: 8:34 AM CSN: [id number] [facility] 03-02-2025 Note HNO ID: [id number] Author: BROOKS MONTEJO MD Service: Anesthesiology Author Type: Physician Type: Anesthesia Procedure Notes Filed: 03/02/2025 08:26 Note Text: ANESTHESIOLOGY PROCEDURE NOTE CVL General Information Procedure Start Time/Medication Administration: 03/02/2025 7:31 AM Procedure End Time: 03/02/2025 7:44 AM Patient location during procedure: OR Timeout Performed Pre-procedure: timeout performed Consent Obtained: Yes Patient identity confirmed: arm band, care steam table associate and patient sedated or unresponsive Indication: central [...] March 02, 2025 TIME: 8:25 AM CSN: [id number] [facility] 03-02-2025 Note HNO ID: [id number] Author: BROOKS MONTEJO MD Service: Anesthesiology Author [...] March 02, 2025 TIME: 8:23 AM CSN: [id number] [facility] 03-01-2025 Note HNO ID: [id number] Author: OMARI HEATON MD Service: Hospital Medicine Author Type: Physician Type: Progress Notes Filed: 03/01/2025 14:33 Note Text: DEPARTMENT OF HOSPITAL MEDICINE PROGRESS NOTE SERVICE DATE: 03/01/2025 SERVICE TIME: 2:32 PM Hospital Medicine/Primary Attending: Omari Heaton MD NIGHT AND WEEKEND COVERAGE: [place]RAKES [place]ANCH COVERAGE: After 7pm, please call cross cover pager #[phone] Subjective INTERVAL HPI: Episode of sharp L [...] Bag/Syringe/Bot (more content not included)... [facility] 03-01-2025 Note HNO ID: [id number] Author: AALIYAH LÓPEZ RN Service: Care Management [...] 01, 2025 TIME: 2:14 PM [facility] 03-01-2025 Note HNO ID: [id number] Author: RITA HENLEY PA-C Service: Cardiovascular Surgery Author Type: Physician Chemistry Associate Type: Plan of Care Filed: 03/01/2025 13:54 [...] of scheduled surgery Rita Henley PA-C Pager #[phone] [facility] 02-28-2025 Note HNO ID: [id number] Author: RITA HENLEY PA-C Service: Cardiovascular Surgery Author Type: Physician Chemistry Associate Type: Plan of Care Filed: 02/28/2025 17:49 [...] Giuseppe (more content not included)... [facility] 02-28-2025 Note HNO ID: [id number] Author: OMARI HEATON MD Service: Hospital Medicine Author Type: Physician Type: Progress Notes Filed: 02/28/2025 14:07 Note Text: DEPARTMENT OF HOSPITAL MEDICINE PROGRESS NOTE SERVICE DATE: 02/28/2025 SERVICE TIME: 2:04 PM Hospital Medicine/Primary Attending: Omari Heaton MD NIGHT AND WEEKEND COVERAGE: FLSALVATORE COVERAGE: After 7pm, please call cross cover pager #[phone] Subjective INTERVAL HPI: Feeling well. Current Facility-Administered [...] -- 02/25/25 004 vte current anticoag therapy (wy,tx) 02/25/2544 pneumatic compression sleeve(s) [place] 02/25/2544 activity - mobilize [place] VTE Prophylaxis: VTE prophylaxis appropriate Disposition: Home Plan of care discussed with Provider, RN, Patient Plan communicated to: N/A SIGNATURE: Omari Heaton MD PATIENT NAME: Elsa Palacio DATE: February 28, 2025 TIME: 1:56 PM [facility] 02-27-2025 Note HNO ID: [id number] Author: OMARI HEATON MD Service: Hospital Medicine Author Type: Physician Type: Progress Notes Filed: 02/27/2025 14:33 Note Text: DEPARTMENT OF HOSPITAL MEDICINE PROGRESS NOTE SERVICE DATE: 02/27/2025 SERVICE TIME: 2:32 PM Hospital Medicine/Primary Attending: Omair Heaton MD NIGHT AND WEEKEND COVERAGE: FLSALVATORE COVERAGE: After 7pm, please call cross cover pager #[phone] Subjective INTERVAL HPI: Mild fatigue and nausea. [...] 0026 -- 02/25/2544 vte current anticoag therapy (wy,tx) 02/25/2544 pneumatic compression sleeve(s) ([place]) 02/25/2544 activity - mobilize patient ([place] VTE Prophylaxis: VTE prophylaxis appropriate Disposition: Home Plan of care discussed with Provider, RN, Patient Plan communicated to: N/A SIGNATURE: Omari Heaton MD PATIENT NAME: Elsa Palacio DATE: February 27 (more content not included)... [facility] 02-27-2025 Note HNO ID: [id number] Author: DALILA HUDSON PA-C Service: Cardiovascular Surgery Author Type: Physician Chemistry Associate Type: Plan of Care Filed: 02/27/2025 13:24 [...] - Exam was compared with the prior [facility] echocardiographic exam performed on 03/14/2020. No significant [...] 39.7%, WBC Count: 8.96 10?/?L, Platelet Count: 502878 cells/?L Substance Abuse: Former smoker Risk Factors / Comorbidities: Diabetes Mellitus , Hypertension, Family Hx of CAD Pulmonary RF: Mild CLD Cardiac Status: Chronic heart failure, NYHA Class I, Ejection Fraction = 58% Coronary Artery Disease: 3 vessels diseased, Proximal LAD Stenosis >= 70%, Non-ST Elevation CO, CO: 1 to 7 Days Valve Disease: Trivial/Trace AR, Mild MR, Trivial/Trace TR Discussed and answerred all questions patient and family had at bedside today. Patient denies chest pain or Shortness of Breath. Continue heparin drip. Dalila Hudson PA-C [facility] 02-26-2025 Note HNO ID: [id number] Author: OMARI HEATON MD Service: Hospital Medicine Author Type: Physician Type: Progress Notes Filed: 02/26/2025 13:57 Note Text: DEPARTMENT OF HOSPITAL MEDICINE PROGRESS NOTE SERVICE DATE: 02/26/2025 SERVICE TIME: 1:54 PM Hospital Medicine/Primary Attending: Omari Heaton MD NIGHT AND WEEKEND COVERAGE: STEVIE COVERAGE: After 7pm, please call cross cover pager #[phone] Subjective INTERVAL HPI: Denies chest pain or [...] -- 02/25/25 004 vte current anticoag therapy ([place]) 02/25/2544 pneumatic compression sleeve(s) ([place]) 02/25/2544 activity - mobilize patient ([place] VTE Prophylaxis: VTE prophylaxis appropriate Disposition: Home Plan of care discussed with Provider, RN, Patient Plan communicated to: N/A SIGNATURE: Omari Heaton MD PATIENT NAME: Elsa Palacio DATE: February 26, 2025 TIME: 1:56 PM [facility] 02-26-2025 Note HNO ID: [id number] Author: CANDIDA VALDIVIA RN Service: Care Management [...] 26, 2025 TIME: 11:08 AM [facility] 02-25-2025 Note HNO ID: [id number] Author: OMARI HEATON MD Service: Hospital Medicine Author Type: Physician Type: Progress Notes Filed: 02/25/2025 13:59 Note Text: DEPARTMENT OF HOSPITAL MEDICINE PROGRESS NOTE SERVICE DATE: 02/25/2025 SERVICE TIME: 1:56 PM Hospital Medicine/Primary Attending: Omari Heaton MD NIGHT AND WEEKEND COVERAGE: STEVIE COVERAGE: After 7pm, please call cross cover pager #[phone] Subjective INTERVAL HPI: Denies chest pain or [...] -- 02/25/25 004 vte current anticoag therapy [place]) 02/25/2544 pneumatic compression sleeve(s) ([place]) 02/25/2544 activity - mobilize patient [place] VTE Prophylaxis: VTE prophylaxis appropriate Disposition: Home Plan of care discussed with Provider, RN, Patient Plan communicated to: N/A SIGNATURE: Omari Heaton MD PATIENT NAME: Elsa Palacio DATE: February 25, 2025 TIME: 1:56 PM [facility] 02-25-2025 Note HNO ID: [id number] Author: HERMINIA LEAL RN Service: ? Author Type: Registered Nurse Type: Progress Notes Filed: 02/25/2025 11:44 Note Text: Transitional Care Management (TCM) Inpatient Outreach N/A - No specialty updates needed Summary: Patient admitted to: [facility] Patient admitted on: 02/24/25 Admitted for: CABG (coronary artery bypass graft) planned Contact made with patient: Yes Scarlet, my name is Herminia Leal RN and I am calling from the [facility] on behalf of Soraya Briones MD. I understand that you are currently admitted at [facility] and I am calling to cover [...] registered nurse OR a text from the [facility] containing a secure link that will ask you questions about how you are doing since you are back at home. Please know that the telephone number on your caller ID may not identify as [facility]. During our outreach with you, we will ask you about any new or worsening symptoms and ensure you have a follow up appointment with your provider. Best Contact after Hospital Discharge I would like to confirm your contact information. Do you have a mobile phone, landline, or both? Mobile only: [phone] Is this the best number to reach you? Yes Do you give us permission to speak with anyone else if you are unavailable to speak with us? Yes. Name Christine relationship spouse, and contact number [phone]. Primary Care Provider (PCP) Hospital Discharge Appointment Does patient already have a PCP follow up appointment within 7-14 days after hospital discharge? No MyChart Patient MyChart status is: Active Thank you for taking the time to speak with me today. I look forward to working with you once you are discharged home from the hospital. Herminia Leal RN February 25, 2025 11:44 AM [facility] 02-25-2025 Note HNO ID: [id number] Author: CANDIDA VALDIVIA RN Service: Care Management Author Type: Registered Nurse Type: Care Mgt Initial Assessment Filed: 02/25/2025 12:16 Note Text: CARE MANAGEMENT: ASSESSMENT AND DISCHARGE PLAN SERVICE DATE: February 25, 2025 SERVICE TIME: 11:20 AM PCP: Soraya Briones MD Primary Contact: Extended Emergency Contact Information Primary Emergency Contact: Barbara Palacion Address: [address] [place] [address] Mobile Relation: Spouse Admission Status: Inpatient Insurance [...] Be able to go home, General wellness [place] of Choice Explained: [place] of Choice Given: No Reason Not Given: No placements necessary Are you interested in bedside delivery of your medications? No Patient would like to keep [facility] in [place]. Discharge Planning Participant(s): Patient, Family Patient/Family Comments: [...] 25, 2025 TIME: 12:12 PM [facility] 02-25-2025 Note Patient Outreach ([facility]) GÓMEZPARMINDERELSA Brennan ([id number]) 1940 M Date Time Provider Department 02/25/25 HERMINIA LEAL During your visit today, we recorded the following information about you: Herminia Leal RN 02/25/2025 11:44 AM Signed Transitional Care Management (TCM) Inpatient Outreach N/A - No specialty updates needed Summary: Patient admitted to: [facility] Patient admitted on: 02/24/25 Admitted for: CABG (coronary artery bypass graft) planned Contact made with patient: Yes Jonathanfay, my name is Herminia Leal RN and I am calling from the [facility] on behalf of Soraya Briones MD. I understand that you are currently admitted at [facility] and I am calling to cover [...] registered nurse OR a text from the [facility] containing a secure link that will ask you questions about how you are doing since you are back at home. Please know that the telephone number on your caller ID may not identify as [facility]. During our outreach with you, we will ask you about any new or worsening symptoms and ensure you have a follow up appointment with your provider. Best Contact after Hospital Discharge I would like to confirm your contact information. Do you have a mobile phone, landline, or both? Mobile only: [phone] Is this the best number to reach you? Yes Do you give us permission to speak with anyone else if you are unavailable to speak with us? Yes. Name Christine, relationship spouse, and contact number [phone]. Primary Care Provider (PCP) Hospital Discharge Appointment [...] Assessed Reason for Visit: Transition Of Care [5275] Cmt: Reach In Prescriptions as of 02/25/2025 [...] [G44*01/27/2015 HTN (hypertension) (more content not included)... [facility] 02-24-2025 Note [facility] Medical Records Department [address] [place] [address] Discharge Summary 02/24/25 1326 MR#: [id number] Acct: [id number] Name: ELSA PALACIO Rep #: [id number] : 1940 85 From: Anibal Shore MD PCP: Dr. Jeremias Damico MD Status:DIS IN Location: [facility] [id number] Providers Date of Admission: 02/24/25 Date of [...] Chau for patient to be transferred to [facility] for bypass 2. Hypertension ??? Recently diagnosed [...] 73.8 H, Lymph % (Auto) 17.2 L, [place] % (Auto) 6.5, Eos % (Auto) 1.7, Baso % (Auto) 0.5, Absolute Neuts (auto) 6.8, Absolute Lymphs (auto) 1.59, Nucleated RBC % 0, PT 13.4, INR 1.0, APTT 27.5, Sodium 135, Potassium 4.1, Chloride 100, Carbon Dioxide 24.9, Anion Gap 9, BUN 19, Creatinine 1.11, Estim Cr (more content not included)... [facility] 02-16-2025 Note HNO ID: [id number] Author: JEREMIAS DAMICO MD Service: ? Author [...] 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 docusate sodium([employer] LIQUI-GELS 100 MG CAP) Take by mouth [...] Past Histories independently gathered by the clinical landing support specialist and the remaining scribed note accurately describes my personal service to the patient. Medical Decision Making: Problems: Low: Stable chronic illness Risk: Moderate: Drug management Medical Decision Making Level: 3 - Low Jeremias Damico MD The documentation for this note was completed by Jessica Bates, (more content not included)... [facility] 12-22-2024 Note HNO ID: [id number] Author: SHAQ BISHOP PA-C Service: ? Author Type: Physician Chemistry Associate Type: Progress Notes Filed: 12/22/2024 16:42 Note Text: [facility] PATIENT CLINIC NOTE (M) Some elements copied from his previous note, which have been updated where appropriate, and all reflect current medical decision making from date of this visit. Note was generated by [employer] and edited as appropriate SERVICE DATE: [...] mg by mouth daily at bedtime. docusate sodium([employer] LIQUI-GELS 100 MG CAP) Take by mouth once daily. 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 - Urinalysis (more content not included)... [facility] 12-22-2024 History of Presen t illness Narrative Images from the original note were not included. [facility] PATIENT CLINIC NOTE (M) Some elements copied from his previous note, which have been updated where appropriate, and all reflect current medical decision making from date of this visit. Note was generated by [employer] and edited as appropriate SERVICE DATE: [...] intractable migraine without mention of status migrainosus [facility], Dr Pierce Primary hypertension 10/13/2024 REVIEW [...] Appointment with Shaq. documented in this encounter [facility] 12-22-2024 Note HNO ID: [id number] Author: LEILANI ARCHER LPN Service: ? Author [...] the procedure well. Plan: Appointment with Shaq. [facility] 12-17-2024 History of Presen t illness Narrative [...] General (Family Medicine) Zeeshan Mahmood APRN.RUTHIE as Gathering Machine Feeder (Family Medicine) Outside specialists seen: Urology, Dermatology [...] intractable migraine without mention of status migrainosus [facility], Dr Pierce Primary hypertension 10/13/2024 Previous [...] 10.4 Absolute nRBC 12/14/2024 <0.01 Recording using [employer] software for draft documentation of the visit was discussed with the patient/authorized market survey representative; all questions welcomed and answered. Patient/authorized market survey representative agreed to proceed 1. Acquired hypothyroidism (E03.9) TSH within target range on current Synthroid regimen. - Continue current Synthroid dose. - Refill sent to [facility]. 2. Primary hypertension (I10) Home BP readings [...] Continue tamsulosin and Proscar; refills sent to [facility]. Medical Decision Making: Problems: Moderate: [...] Drug use: Never documented in this encounter [facility] 12-17-2024 Note HNO ID: [id number] Author: JEREMIAS DAMICO MD Service: ? Author [...] General (Family Medicine) Zeeshan Mahmood APRN.RUTHIE as Gathering Machine Feeder (Family Medicine) Outside specialists seen: Urology, Dermatology [...] (FLOMAX) 0.4 mg (more content not included)... [facility] 11-19-2024 History of Presen t illness Narrative [...] mg by mouth daily at bedtime. docusate sodium([employer] LIQUI-GELS 100 MG CAP) Take by mouth [...] 100 mg daily; prescription sent to [facility] in [place]. - Advised patient to take medication in the evening. - Scheduled follow-up appointment in one month to reassess blood pressure and symptoms. - Ordered lab work to be completed before the next visit. - Cancelled appointment with Zeeshan and will conduct Medicare wellness visit during the next appointment. 2. Acquired hypothyroidism (E03.9) Recording using [employer] software for draft documentation of the visit was discussed with the patient/authorized market survey representative; all questions welcomed and answered. Patient/authorized market survey representative agreed to proceed I agree with the Chief Complaint, ROS, and Past Histories independently gathered by the clinical landing support specialist and the remaining scribed note accurately describes [...] Jessica Bates MA documented in this encounter [facility] 11-19-2024 Note HNO ID: [id number] Author: JEREMIAS DAMICO MD Service: ? Author [...] 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 docusate sodium([employer] LIQUI-GELS 100 MG CAP) Take by mouth [...] to 100 mg daily; prescription sent to [facility] in [place]. - Advised patient to take medication in the evening. - Scheduled follow-up appointment in one month to reassess blood pressure and symptoms. - Ordered lab work to be completed before the next visit. - Cancelled appointment with Zeeshan and will conduct Medicare wellness visit during t (more content not included)... [facility] 10-13-2024 History of Presen t illness Narrative [...] mg by mouth daily at bedtime. docusate sodium([employer] LIQUI-GELS 100 MG CAP) Take by mouth [...] Prescription for losartan 50 mg sent to [facility] pharmacy. - Follow-up appointment scheduled in one month to reassess blood pressure control. Recording using zPerfectGift software for draft documentation of the visit was discussed with the patient/authorized market survey representative; all questions welcomed and answered. Patient/authorized market survey representative agreed to proceed I agree with the Chief Complaint, ROS, and Past Histories independently gathered by the clinical landing support specialist and the remaining scribed note accurately describes [...] Jessica Bates MA documented in this encounter [facility] 10-13-2024 Note HNO ID: [id number] Author: JEREMIAS DAMICO MD Service: ? Author [...] Prescription for losartan 50 mg sent to [facility] pharmacy. - Follow-up appointment scheduled in one month to reassess blood pressure control. Recording using zPerfectGift software for draft documentation of the visit was discussed with the patient/authorized market survey representative; all questions welcomed and answered. Patient/authorized represe (more content not included)... [facility] 09-04-2024 History of Presen t illness Narrative [...] BP and reported readings on 08/27/24 via QUIQt. Denies any chest pains, dizziness, SOB, or [...] intractable migraine without mention of status migrainosus [facility], Dr Pierce Previous Surgical History PAST [...] mg by mouth daily at bedtime. docusate sodium([employer] LIQUI-GELS 100 MG CAP) Take by mouth [...] Past Histories independently gathered by the clinical landing support specialist and the remaining scribed note accurately describes [...] Jessica Bates MA documented in this encounter [facility] 09-04-2024 Note HNO ID: [id number] Author: JEREMIAS DAMICO MD Service: ? Author [...] BP and reported readings on 08/27/24 via Showpitchhart. Denies any chest pains, dizziness, SOB, or [...] Past Histories independently gathered by the clinical landing support specialist and the remaining scribe (more content not included)... [facility] 09-01-2024 Telephone encounter Note Patient rescheduled. [facility] 09-01-2024 Miscellaneous Notes Patient rescheduled. Notified pt [...] Naida Vazquez MA documented in this encounter [facility] 08-31-2024 Telephone encounter Note Notified pt of message below from Provider. Offered to schedule sooner appt if pt would like. Also made pt aware that Provider is okay with appt as scheduled, if pt prefers to not come sooner. Wait pt response. Naida Vazquez MA [facility] 08-31-2024 Telephone encounter Note He probably will be okay. I think Dr. Damico has an appt at 3 pm this Saturday if he wants a sooner appointment. Zeeshan Mahmood APRN.ELEMENTARY ASSISTANT TEACHER [facility] 08-31-2024 Telephone encounter Note Zeeshan are you okay with the appt as scheduled on 09/15/24. Naida Vazquez MA [facility] 08-27-2024 Telephone encounter Note Message sent to pt notifying him that he needs appt. Awaiting response on day and time that would work for his appt. Jessica Bates MA [facility] 08-27-2024 Telephone encounter Note Looks like patient would benefit from a visit to discuss blood pressure management Zeeshan Mahmood APRN.ELEMENTARY ASSISTANT TEACHER [facility] 08-27-2024 Telephone encounter Note See pt message and advise. Medication was d/c by Neurology. Naida Vazquez MA [facility] 08-18-2024 Note HNO ID: [id number] Author: ROBYN HOWE MA Service: ? Author Type: Tank Assembler Type: Progress Notes Filed: 08/18/2024 10:47 Note Text: POPULATION HEALTH NAVIGATION OUTREACH Action/FYI Patient is on [facility] Outreach List and needs appointment to address : Advance Directive Discussion Covid-19 Vaccine() Patient due for: N/A - Needs H@H number MyChart Active: Yes 1st Attempt: Left message for patient to call back. Sent Wonderflow message. AWV already scheduled 01-29-25 Healthy at Home (H@H) phone number provided [phone]: Yes via Wonderflow Reason for Outreach [facility] Care Gaps due: N/A Patient Contacted: Unable or unnecessary to reach patient: Left message YChartshart message sent Navigation Signature: Robyn Howe MA August 18, 2024 10:44 AM [facility] 08-18-2024 History of Presen t illness Narrative POPULATION HEALTH NAVIGATION OUTREACH Action/FYI Patient is on [facility] Outreach List and needs appointment to address : Advance Directive Discussion Covid-19 Vaccine() Patient due for: N/A - Needs H@H number MyChart Active: Yes 1st Attempt: Left message for patient to call back. Sent Wonderflow message. AWV already scheduled 01-29-25 Healthy at Home (H@H) phone number provided [phone]: Yes via QUIQt Reason for Outreach [facility] Care Gaps due: N/A Patient Contacted: Unable or unnecessary to reach patient: Left message [employer] message sent Navigation Signature: Robyn Howe MA [...] 2024 10:40 AM documented in this encounter [facility] 08-18-2024 Note HNO ID: [id number] Author: SARMAD NEWTON RN Service: ? Author [...] Newton RN August 18, 2024 10:40 AM [facility] 08-18-2024 Note Patient Outreach (AM [facility]) ELSA PALACIO ([id number]) 1940 M Date Time Provider Department 08/18/24 [...] due for: N/A - Needs H@H number [facility] Active: Yes 1st Attempt: Left message for patient to call back. Sent Wonderflow message. AWV already scheduled 01-29-25 Healthy at Home (H@H) phone number provided [phone]: Yes via mychart Reason for Outreach Value [facility] Care Gaps due: N/A Patient Contacted: Unable or unnecessary to reach patient: Left message YChartshart message sent Navigation Signature: Robyn Howe MA [...] Date Reviewed: 08/04/2024 Reviewed by: Snow Brooks APRN.ELEMENTARY ASSISTANT TEACHER - Fully Assessed Reason for Visit: Population Health Navigation Outreach [3910] Cmt: Value [facility] Prescriptions as of 08/18/2024 - SUMAtriptan [...] Encounter Status:Closed by SARMAD NEWTON on 08/18/24 [facility] 08-04-2024 History of Presen t illness Narrative Images from the original note were not included. [facility] Follow up visit August 04, 2024 Chief [...] mg by mouth daily at bedtime. docusate sodium([employer] LIQUI-GELS 100 MG CAP) Take by mouth [...] which included preparing to see the patient, bzyv-ac-xnph patient care, completing clinical documentation, obtaining and/or reviewing separately obtained history, performing a medically appropriate examination, and counseling and educating the patient/family/caregiver. Snow Brooks APRN.RUTHIE Headache Section [facility] documented in this encounter [facility] 08-04-2024 Note HNO ID: [id number] Author: SNOW BROOKS APRN.CNP Service: ? Author Type: Nurse Practitioner Type: Progress Notes Filed: 08/04/2024 10:06 Note Text: [facility] Follow up visit August 04, 2024 Chief [...] no impact) 4 (more content not included)... [facility] 01-30-2024 History of Presen t illness Narrative [facility] Follow up visit January 30, 2024 Chief [...] which included preparing to see the patient, zxjd-pg-atih patient care, completing clinical documentation, obtaining and/or reviewing separately obtained history, performing a medically appropriate examination, and ordering medications, tests, or procedures. Snow Brooks APRN.RUTHIE Headache Section [facility] documented in this encounter [facility] 01-24-2024 Instructions Zeeshan Mahmood APRN.RUTHIE - 01/24/2024 [...] review all the medicines you take, even sxre-dyq-nnyoxqb medicines. As you get older, the way [...] certain medical conditions. documented in this encounter [facility] 01-24-2024 History of Presen t illness Narrative [...] Abs Lymph 1.00 - 4.00 k/uL 1.92 Freestone% % 6.8 Abs Freestone <0.87 k/uL 0.55 Eosin% % 4.8 Abs [...] - Personalized prevention plan provided Zeeshan Mahmood APRN.ELEMENTARY ASSISTANT TEACHER Additional Concerns The following concerns were also [...] YR, HIGH DOSE, TRIVALENT (FLUZONE HIGH-DOSE) - [employer] COVID-19 VACCINE AGE 12+ YR (COMIRNATY) Zeeshan Mahmood APRN.ELEMENTARY ASSISTANT TEACHER RTO in 12 months. documented in this encounter [facility] 01-21-2024 History of Presen t illness Narrative Patient presents for EKG per Snow Brooks CNP. Denies any problems at this time. Tolerated procedure well. Meera Parker LPN documented in this encounter [facility] 01-09-2024 Telephone encounter Note KD 12/31/23 Pt. Requesting another pharmacy Patient phones requesting refills as follows: Requested Prescriptions Pending Prescriptions Disp Refills finasteride (PROSCAR) 5 mg tablet [Pharmacy Med Name: finasteride 5 mg tablet] 90 tablet 3 Sig: take 1 tablet by mouth once daily. Please review and advise. Shawn Diaz RN [facility] 01-09-2024 Miscellaneous Notes KD 12/31/23 Pt. Requesting another pharmacy Patient phones requesting refills as follows: Requested Prescriptions Pending Prescriptions Disp Refills finasteride (PROSCAR) 5 mg tablet [Pharmacy Med Name: finasteride 5 mg tablet] 90 tablet 3 Sig: take 1 tablet by mouth once daily. Please review and advise. Shawn Diaz, RN documented in this encounter [facility] 01-03-2024 Telephone encounter Note Patient returned call and given provider's message below and patient verbalized understanding. Thao Gould RN [facility] 01-03-2024 Miscellaneous Notes Patient returned call and [...] appointment with Zeeshan. documented in this encounter [facility] 01-02-2024 Telephone encounter Note Message left for pt to call back. Jessica Bates MA [facility] 01-01-2024 Telephone encounter Note I placed labs. The EKG was ordered by neurology. He would need an appointment with a nurse to get it completed. Zeeshan Mahmood APRN.ELEMENTARY ASSISTANT TEACHER [facility] 01-01-2024 Telephone encounter Note Pt called wondering if there are any labs necessary prior to his 01/24/24 appt. Please let him know. He needs and EKG also and would like to schedule lab and EKG same day unless EKG can be done at appointment with Zeeshan. [facility] Work Phone: 12-31-2023 Instructions Shaq Bishop PA-C - 12/31/2023 4:01 PM EDT .> 1 year Appt w/ B. MARTHA Bishop, [facility] for refills documented in this encounter [facility] 12-31-2023 History of Presen t illness Narrative Images from the original note were not included. [facility] EST PATIENT CLINIC NOTE [...] Appointment with Shaq. documented in this encounter [facility] 12-09-2023 Telephone encounter Note He has tapered off Depakote, no labs Continues on Verapamil - order for EKG placed. Snow Brooks APRN.RUTHIE [facility] 12-09-2023 Miscellaneous Notes He has tapered off [...] with Cecilia Best number to reach caller: [phone] (home) Best time to reach caller: ANY Is it OK to leave a detailed voice message? Yes Sandie Gonzalez documented in this encounter [facility] 12-06-2023 Telephone encounter Note Call received for [...] with Cecilia Best number to reach caller: [phone] (home) Best time to reach caller: ANY Is it OK to leave a detailed voice message? Yes Sandie Gonzalez [facility] 09-02-2023 Telephone encounter Note Physician: Cecilia Call from patient requesting refill. Please E-Scribe Last OV: 01/21/2023 with Cecilia Future OV: Not Scheduled. Requested Prescriptions Pending Prescriptions Disp Refills verapamil 80 mg tablet 180 tablet 3 Sig: Take one(1) tablet two(2) times daily. Pharmacy Name: [facility] Bria Flores Adm [facility] 09-02-2023 Miscellaneous Notes Physician: Cecilia Call from patient requesting refill. Please E-Scribe Last OV: 01/21/2023 with Cecilia Future OV: Not Scheduled. Requested Prescriptions Pending Prescriptions Disp Refills verapamil 80 mg tablet 180 tablet 3 Sig: Take one(1) tablet two(2) times daily. Pharmacy Name: [facility] Bria Flores [facility] documented in this encounter [facility] 07-14-2023 Discharge summary Note Date/Time July 14, 2023 8:53am [facility] Medical Records Department [address] [place] [address] Emergency Department Summary 07/14/23 MR#: [id number] Acct: [id number] Name: ELSA PALACIO KEVIN Rep #:[id number] : 1940 83 From: Salomon Marquez MD [...] your Primary Care Provider. Call [facility] ([phone]) or report to the closest Emergency Room. Call 911 if necessary. 07/14/23 1049 <Electronically signed by Salomon Marquez MD> Cosigner Signature (if applicable): CC: Dr. Jeremias Damico MD ~ Signed [facility] Work Phone: [phone]) 695-527612-06-2023 History of Present illness Narrative* Susan Donis APRN.ELEMENTARY ASSISTANT TEACHER - 03/27/2023 9:16 AM EST CC: Patient [...] plan. Susan Donis APRN.RUTHIE [facility] Miscellaneous Notes* Telephone Encounter - Naida Vazquez Ma - 02/18/2023 9:16 AM EDT Placed in first Wonderflow message, closing this encounter. Naida Vazquez Ma [facility] History of Present illness Narrative* Zeeshan Mahmood [...] - TRAZODONE 50 MG TABLET Zeeshan Mahmood APRN.ELEMENTARY ASSISTANT TEACHER This note was partly generated using [employer] voice recognition dictation and may contain some misspelled or inaccurate words missed on review. documented [facility] Instructions* Patient Instructions* Zeeshan Mahmood APRN.CNP - 02/01/2023 12:58 PM EDT Trial Trazodone 50 mg at night. Can you take with the melatonin. Just take 2 tablets of the melatonin. If you are groggy, trial decreasing melatonin dose. Can work all the way down to no melatonin. Mychart me in 2-3 weeks to update me. Zeeshan Mahmood APRN.RUTHIE [facility] History of Present illness Narrative* Meera Parker LPN - 01/24/2023 12:58 PM EDT Patient presents for EKG per Snow Brooks CNP. Denies any problems at this time. Tolerated procedure well. Meera Parker LPN documented [facility] History of Present illness Narrative* Zeeshan Mahmood APRN.CNP - 01/22/2023 10:20 AM EDT Elsa Palacio is a 82 year old male here for a Medicare wellness visit. Health Risk Assessment In general, health is: Excellent Concerns with balance: Not at all Concerns with teeth or dentures: Not at all Concerns with sexual function: Not at all Liberal anxious, stressed, angry, irritable, lonely, isolated, or [...] aids. Right ear hearing aid with a aviation project manager fromleft ear. Following with audiology. General appearance: [...] Abs Lymph 1.00 - 4.00 k/uL 1.80 Freestone% % 6.4 Abs Freestone <0.87 k/uL 0.45 Eosin% % 3.1 Abs [...] have reviewed the Advanced Practice Registered Nurse (GARNETT MECHANIC) student's documentation and verified the findings in the note as written. Any additions or changes are noted in bold/italics. Zeeshan Mahmood APRN.RUTHIE documented [facility] History of Present illness Narrative* Snow Brooks APRN.RUTHIE - 01/21/2023 1:00 PM EDT [facility] Follow up visit January 21, 2023 Chief [...] which included preparing to see the patient, biod-yp-omif patient care, completing clinical documentation, obtaining and/or reviewing separately obtained history, performing a medically appropriate examination, counseling and educating the patient/family/caregiver, and ordering medications, tests, or procedures. Snow Brooks APRN.ELEMENTARY ASSISTANT TEACHER Headache Section [facility] Miscellaneous Notes* Telephone Encounter - Wendy Jack [...] would like to obtain with PCP in [place]. Did not have fax number. States its his typical lab work and did not know exactly what. Just wanted to get it done before his appt on 01/21/23. Number to return call [phone] Okay to leave a message ? Yes Last office visit 02/16/22 with Cecilia Next office visit 01/21/23 with Cecilia Thank you calling [facility] [place]. You will receive a return call within 48hours ( or 2 business days if close to the weekend). If you feel that this is an urgent issue and needs immediate attention, it is recommended that you contact your primary care provider office or proceed to your nearest Urgent Care Center of Emergency Room ED for evaluation/treatment. documented in this encounterTri[facility] Miscellaneous Notes* Telephone Encounter - Nesha Vail Adm - 06/06/2022 12:23 PM EST KD: 02/16/2022 with Cecilia documented in this encounterTri[facility] Instructions* Patient Instructions* Shaq Bishop PA-C - 05/01/2022 10:34 AM EST > 1 year Appt w/ B. MARTHA Bishop, [facility] for annual follow-up and refills. documented in this encounterTri[facility] History of Present illness Narrative* Shaq Bishop PA-C - 05/01/2022 10:23 AM EST Images from the original note were not included. [facility] ESTABLISHED PATIENT CLINIC NOTE [...] mg by mouth daily at bedtime. docusate sodium([employer] LIQUI-GELS 100 MG CAP) Take by mouth once daily. 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 documented in this encounterTri[facility] Miscellaneous Notes* Telephone Encounter - Sonia Godfrey [...] [facility] Wendy Jack documented in this encounterTri[facility]22 Miscellaneous Notes* Telephone Encounter - Snow Brooks APRN.CNP - 02/19/2022 4:51 PM EDT Called patient and discussed EKG results NSR. Snow Brooks APRN.RUTHIE * Telephone Encounter - Neshayessenia Vail Adm - 02/19/2022 4:38 PM EDT Patient called back and said that he will be available all day after 9 am tomorrow. [phone] * Telephone Encounter - Snow Brooks APRN.CNP - 02/19/2022 4:32 PM EDT Called patient and left message to contact the office with the best time to reach him Snow Brooks APRN.CNP * Telephone Encounter - Jocelyn Madrid Pss - 02/19/2022 2:51 PM EDT Patient last seen 02/16/2022. ECG results are dated 02/15/2022. documented in this encounterTri[facility]10-[facility] Instructions* Patient Instructions* Snow Brooks APRN.CNP - 02/16/2022 10:55 AM EDT 03/03/2021 07/03/2021 BP 116/70 118/72 Pulse 66 74 01/19/2022 01/30/2022 02/16/2022 BP 134/84 154/98 Shaq Bishop PA-C notified of blood pressure. 148/73 Pulse 60 64 59 (A) documented in this encounterTrihealth [facility]10-28[facility]22 History of Present illness Narrative* Snow Brooks APRN.CNP - 02/16/2022 10:30 AM EDT [facility] Follow up visit February 16, 2022 Chief [...] articulation, and clear,coherent, and relevant. Short and long-term memory, cognition and general fund of knowledge [...] which included preparing to see the patient, lvxi-fd-ielk patient care, completing clinical documentation, obtaining and/or reviewing separately obtained history, and counseling and educating the patient/family/caregiver. Snow Brooks APRN.RUTHIE Headache Section [facility] February 16, 2022 12:57 PM documented in this encounterTrihealth [facility]10-27[facility] History of Present illness Narrative* Meera Parker LPN - 02/15/2022 3:04 PM EDT Patient presents for EKG per Dr Brooks. Denies any problems at this time. Tolerated procedure well. Meera Parker LPN documented in this encounterTri[facility] History of Present illness Narrative* Shaq Bishop PA-C - 01/30/2022 3:07 PM EDT Images from the original note were not included. [facility] NEW PATIENT CLINIC NOTE [...] Plan: Appointment with Shaq. documented in this encounterTrihealth [facility]09-30-2022 Instructions* Patient Instructions* Zeeshan Mahmood APRN.CNP - 01/19/2022 1:32 PM EDT Influenza and COVID given today Levothyroxine [facility] mcg [facility] Repeat TSH on or around 03/21/2022. I will reach out to you with results and instructions. Schedule with [facility]. Zeeshan Mahmood APRN.CNP documented in this encounterTrihealth [facility]09[facility] History of Present illness Narrative* Zeeshan Mahmood [...] current specialists seen: Neurology, [facility]; [employer] Live Planning [...] Abs Lymph 1.00 - 4.00 k/uL 1.91 Freestone% % 5.8 Abs Freestone <0.87 k/uL 0.76 Eosin% % 2.1 Abs [...] at this time. - Patient was counseled nhoy-cx-uqbv by myself (the billing provider) for the [...] UROLOGY Zeeshan Mahmood APRN.CNP documented in this encounterTrihealth [facility]09[facility] Miscellaneous Notes* Telephone Encounter - Snow Brooks [...] of office today. Number to return call [phone] Okay to leave a message ? Yes Last office visit 03/22/2021 with Cecilia Next office visit 02/16/2022 with Cecilia Thank you calling [facility] [place]. You will receive a return call within 48hours ( or 2 business days if close to the weekend). If you feel that this is an urgent issue and needs immediate attention, it is recommended that you contact your primary care provider office or proceed to your nearest Urgent Care Center of Emergency Room ED for evaluation/treatment. documented in this encounterTrihealth [facility]09-[facility]22 Miscellaneous Notes* Telephone Encounter - Herminia Keith [...] orders. Please advise patient. documented in this encounterTrihealth [facility]06-20-2022 Miscellaneous Notes* Telephone Encounter - Zeeshan Mahmood [...] refills Clara Salter LPN documented in this encounterTrihealth [facility]05-10-2022 Miscellaneous Notes* Telephone Encounter - Jocelyn Madrid Pss - 08/29/2021 4:23 PM EDT Patient last seen 07/03/2021. [facility] of Past illness Narrative* Problem Noted Date Resolved Date Diverticulosis of colon (without mention of hemo rrhage) 05/10/2005 02/01/2017 3.1.1 PERIOD UNDETERM W/O INTRACT [346.20] 02/2203/11/2009 documented as of this encounter (statuses as of 08/29/2021) [facility] of Past illness Narrative* Problem Noted Date Resolved Date Diverticulosis of colon (without mention of hemo rrhage) 05/10/2005 02/01/2017 3.1.1 PERIOD UNDETERM W/O INTRACT [346.20] 02/2203/11/2009 documented as of this encounter (statuses as of 10/09/2021) [facility] of Past illness Narrative* Problem Noted Date Resolved Date Diverticulosis of colon (without mention of hemo rrhage) 05/10/2005 02/01/2017 3.1.1 PERIOD UNDETERM W/O INTRACT [346.20] 02/2203/11/2009 documented as of this encounter (statuses as of 01/05/2022) [facility] of Past illness Narrative* Problem Noted Date Resolved Date Diverticulosis of colon (without mention of hemo rrhage) 05/10/2005 02/01/2017 3.1.1 PERIOD UNDETERM W/O INTRACT [346.20] 02/2203/11/2009 documented as of this encounter (statuses as of 01/08/2022) [facility] of [facility] illness Narrative* Problem Noted Date Resolved Date Diverticulosis of colon (without mention of hemo rrhage) 05/10/2005 02/01/2017 3.1.1 PERIOD UNDETERM W/O INTRACT [346.20] 02/2203/11/2009 documented as of this encounter (statuses as of 01/19/2022) [address]19-2006 History of Past illness Narrative* Problem Noted Date Resolved Date Diverticulosis of colon (without mention of hemo rrhage) 05/10/2005 02/01/2017 3.1.1 PERIOD UNDETERM W/O INTRACT [346.20] 02/2203/11/2009 documented as of this encounter (statuses as of 01/30/2022) [address]19-2006 History of Past illness Narrative* Problem Noted Date Resolved Date Diverticulosis of colon (without mention of hemo rrhage) 05/10/2005 02/01/2017 3.1.1 PERIOD UNDETERM W/O INTRACT [346.20] 02/2203/11/2009 documented as of this encounter (statuses as of 02/15/2022) [address]19-2006 History of Past illness Narrative* Problem Noted Date Resolved Date Diverticulosis of colon (without mention of hemo rrhage) 05/10/2005 02/01/2017 3.1.1 PERIOD UNDETERM W/O INTRACT [346.20] 02/2203/11/2009 documented as of this encounter (statuses as of 02/16/2022) [address]19-2006 History of Past illness Narrative* Problem Noted Date Resolved Date Diverticulosis of colon (without mention of hemo rrhage) 05/10/2005 02/01/2017 3.1.1 PERIOD UNDETERM W/O INTRACT [346.20] 02/2203/11/2009 documented as of this encounter (statuses as of 02/19/2022) [address]19-2006 History of Past illness Narrative* Problem Noted Date Resolved Date Diverticulosis of colon (without mention of hemo rrhage) 05/10/2005 02/01/2017 3.1.1 PERIOD UNDETERM W/O INTRACT [346.20] 02/2203/11/2009 documented as of this encounter (statuses as of 03/23/2022) [address]19-2006 History of Past illness Narrative* Problem Noted Date Resolved Date Diverticulosis of colon (without mention of hemo rrhage) 05/10/2005 02/01/2017 3.1.1 PERIOD UNDETERM W/O INTRACT [346.20] 02/2203/11/2009 documented as of this encounter (statuses as of 04/03/2022) [address]19-2006 History of Past illness Narrative* Problem Noted Date Resolved Date Diverticulosis of colon (without mention of hemo rrhage) 05/10/2005 02/01/2017 3.1.1 PERIOD UNDETERM W/O INTRACT [346.20] 02/2203/11/2009 documented as of this encounter (statuses as of 05/01/2022) [address]19-2006 History of Past illness Narrative* Problem Noted Date Resolved Date Diverticulosis of colon (without mention of hemo rrhage) 05/10/2005 02/01/2017 3.1.1 PERIOD UNDETERM W/O INTRACT [346.20] 02/2203/11/2009 documented as of this encounter (statuses as of 06/07/2022) [address]19-2006 History of Past illness Narrative* Problem Noted Date Diagnosed Date Resolved Date Diverticulosis of colon (wit hout mention of hemorrhage) 05/10/2005 02/01/2017 3.1.1 PERIOD UNDETERM W/O INTRACT [346.20] 02/23/2004 03/11/2009 documented as of this encounter (statuses as of 12/27/2022) [address]19-2006 History of Past illness Narrative* Problem Noted Date Diagnosed Date Resolved Date Diverticulosis of colon (wit hout mention of hemorrhage) 05/10/2005 02/01/2017 3.1.1 PERIOD UNDETERM W/O INTRACT [346.20] 02/23/2004 03/11/2009 documented as of this encounter (statuses as of 01/22/2023) [address]19-2006 History of Past illness Narrative* Problem Noted Date Diagnosed Date Resolved Date Diverticulosis of colon (wit hout mention of hemorrhage) 05/10/2005 02/01/2017 3.1.1 PERIOD UNDETERM W/O INTRACT [346.20] 02/23/2004 03/11/2009 documented as of this encounter (statuses as of 01/23/2023) [address]19-2006 History of Past illness Narrative* Problem Noted Date Diagnosed Date Resolved Date Diverticulosis of colon (wit hout mention of hemorrhage) 05/10/2005 02/01/2017 3.1.1 PERIOD UNDETERM W/O INTRACT [346.20] 02/23/2004 03/11/2009 documented as of this encounter (statuses as of 01/26/2023) [address]19-2006 History of Past illness Narrative* Problem Noted Date Diagnosed Date Resolved Date Diverticulosis of colon (wit hout mention of hemorrhage) 05/10/2005 02/01/2017 3.1.1 PERIOD UNDETERM W/O INTRACT [346.20] 02/23/2004 03/11/2009 documented as of this encounter (statuses as of 02/01/2023) [facility] of [facility] illness Narrative* Problem Noted Date Diagnosed Date Resolved Date Diverticulosis of colon (wit hout mention of hemorrhage) 05/10/2005 02/01/2017 3.1.1 PERIOD UNDETERM W/O INTRACT [346.20] 02/23/2004 03/11/2009 documented as of this encounter (statuses as of 02/18/2023) [address]19-2006 History of Past illness Narrative* Problem Noted Date Diagnosed Date Resolved Date Diverticulosis of colon (wit hout mention of hemorrhage) 05/10/2005 02/01/2017 3.1.1 PERIOD UNDETERM W/O INTRACT [346.20] 02/23/2004 03/11/2009 documented as of this encounter (statuses as of 03/27/2023) [facility] Diagnosis Erectile dysfunction due to diseases classified elsewhere [facility] Diagnosis Wellness examination- Primary Other specified hypothyroidism [facility] Diagnosis Episodic cluster headache, not intractable- Primary Episodic cluster headache [facility] Diagnosis Medicare annual wellness visit, subsequent- [...] tract symptoms (LUTS) documented in this encounter [facility] note* Diagnosis Post-void dribbling- Primary BPH with obstruction/lower urinary tract symptoms Hypertrophy of prostate with urinary obstruction and other lower urinary tract symptoms (LUTS) [facility] Diagnosis Episodic cluster headache, not intractable Episodic cluster headache documented in this encounter [facility] note* Diagnosis Episodic cluster headache, not intractable Episodic cluster headache documented in this encounter [facility] note* Diagnosis Episodic cluster headache, not intractable Episodic cluster headache documented in this encounter [facility] note* Diagnosis BPH with obstruction/lower urinary tract symptoms- Primary Hypertrophy of prostate with urinary obstruction and other lower urinary tract symptoms (LUTS) Erectile dysfunction due to diseases classified elsewhere documented in this encounter [facility] note* Diagnosis Episodic cluster headache, not intractable- Primary Episodic cluster headache documented in this encounter [facility] note* Diagnosis Medicare annual wellness visit, subsequent- Primary Routine general medical examination at a [facility] Encounter for immunization Need for other specified prophylactic vaccination against single bacterial disease Acquired hypothyroidism Unspecified hypothyroidism Episodic cluster headache, not intractable Episodic cluster headache BPH with obstruction/lower urinary tract symptoms Hypertrophy of prostate with urinary obstruction and other lower urinary tract symptoms (LUTS) documented in this encounter [facility] note* Diagnosis Episodic cluster headache, not intractable- Primary Episodic cluster headache documented in this encounter [facility] note* Diagnosis Difficulty sleeping- Primary Sleep disturbance, unspecified documented in this encounter [facility] note* Diagnosis URI, acute- Primary Acute upper respiratory infections of unspecified site documented in this encounter [facility] noteNo assessment information availableWOhio State [facility] Work Phone: Evaluation note* Diagnosis Episodic cluster headache, not intractable Episodic cluster headache documented in this encounter [facility] note* Diagnosis Episodic cluster headache, not intractable- Primary Episodic cluster headache documented in this encounter [facility] note* Diagnosis BPH without obstruction/lower urinary tract symptoms- Primary Hypertrophy of prostate without urinary obstruction and other lower urinary tract symptoms (LUTS) [facility]* Diagnosis Acquired hypothyroidism- Primary Unspecified hypothyroidism Medicare annual wellness visit, subsequent Routine general medical examination at a health care facility documented in this encounter [facility] note* Diagnosis Episodic cluster headache, not intractable Episodic cluster headache documented in this encounter [facility] note* Diagnosis Medicare annual wellness visit, subsequent- Primary Routine general medical examination at a health care facility Acquired hypothyroidism Unspecified hypothyroidism Episodic cluster headache, not intractable Episodic cluster headache Encounter for immunization Need for other specified prophylactic vaccination against single bacterial disease Screening for depression Encounter for screening examination for other mental health and behavioral disorders documented in this encounter [facility] note* Diagnosis Episodic cluster headache, not intractable- Primary Episodic cluster headache documented in this encounter [facility] note* Diagnosis Episodic cluster headache, not intractable- Primary Episodic cluster headache documented in this encounter [facility] note* Diagnosis Primary hypertension- Primary Unspecified essential hypertension documented in this encounter [facility] note* Diagnosis Primary hypertension- Primary Unspecified essential hypertension documented in this encounter [facility] note* Diagnosis Acquired hypothyroidism- Primary Unspecified hypothyroidism Primary hypertension Unspecified essential hypertension documented in this encounter [facility] note* Diagnosis Acquired hypothyroidism- Primary Unspecified hypothyroidism Primary hypertension Unspecified essential hypertension Encounter for Medicare annual wellness exam Routine [facility] Episodic cluster headache, not intractable Episodic cluster headache Benign prostatic hyperplasia without lower urinary tract symptoms documented in this encounter [facility] note* Diagnosis BPH without obstruction/lower urinary tract symptoms- Primary Hypertrophy of prostate without urinary obstruction and other lower urinary tract symptoms (LUTS) Screening for genitourinary condition Screening for other and unspecified genitourinary condition documented in this encounter [facility] for referral (narrative)* Outpatient Procedure (Routine) - Pending Review Specialty Diagnoses / Procedures Referred By Juventino gtz [facility] Diagnoses Episodic cluster headache, not intractable Procedures ECG COMPLETE ECG ROUTINE ECG W/LEAST 12 LDS W/I&R Snow Brooks, GARNETT MECHANIC.ELEMENTARY ASSISTANT TEACHER [address] [place] [address] [facility] [place] [address] [place] [address] Referral ID Status Reason Start Date Expiration Date Visits Requested Visits Authorized [id number] Pending Review Auto-Generat ed Referral 01/08/2022 01/08/2023 1 1 [facility] for referral (narrative)* Outpatient Procedure (Routine) - Pending Review Specialty Diagnoses / Procedures Referred By Contac t Referred To Contact [facility] Diagnoses Episodic cluster headache, not intractable Procedures ECG COMPLETE ECG ROUTINE ECG W/LEAST 12 LDS W/I&R Snow Brooks APRN.CNP [address] [place] [address] [facility] [address] [place] [id number] Referral ID Status Reason Start Date Expiration Date Visits Requested Visits Authorized [id number] Pending Review Auto-Generat ed Referral 01/21/2023 01/21/2024 1 1 [facility] for referral (narrative)* Outpatient Procedure (Routine) - New Request Specialty Diagnoses / Procedures Referred By Contac t Referred To Contact [facility] Diagnoses Episodic cluster headache, not intractable Procedures ECG COMPLETE ECG ROUTINE ECG W/LEAST 12 LDS W/I&R Snow Brooks APRN.CNP [address] [place] [address] 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 Advance Directive(s) 01/20/2018 7:56 AM Advance Directive(s) 06/09/2013 12:43 PM Advance Directive(s) 11/24/2007 12:00 AM Documents on File Type Date Recorded 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 Advance Directive(s) 06/09/2013 12:43 PM Advance Directive(s) 11/24/2007 Documents on File Type Date Recorded 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 Advance Directive(s) 06/09/2013 12:43 PM Advance Directive(s) 11/24/2007 Advance Directive Response Recorded Date/ Time Living Will No July 14, 2023 9:28am Power of Rating Specialist No July 13 9:28am Reason for Referral Specialty Diagnoses / Procedures Referred By Contac t Referred To Contact Urology Diagnoses BPH with obstruction/lower urinary tract symptoms Procedures CONSULT TO UROLOGY OFFICE/OUTPATIENT [facility] 60-74 MINUTES Zeeshan Mahmood APRN.ELEMENTARY ASSISTANT TEACHER [address] [place] [address] Referral ID Status Reason Start Date Expiration Date Visits Requested Visits Authorized [id number] Pending Review PCP Requested Referral 01/19/2022 01/19/2023 1 1 Health Concerns Infection Onset Date Last Indicated Resolved Time COVID-19 Rule-Out 03/27/2023 03/27/2023 Chief Complaint and Reason for Visit Chief Complaint nosebleed Additional Source Comments (unrecognized sect ion and content) No Status Records FoundNo Status Records FoundNo Status Records FoundNo Status Records Found INFORMATION SOURCE (unrecogn ized section and content) DATE CREATED AUTHOR 02/03/2019 [facility] DATE CREATED AUTHOR AUTHOR'S ORGANIZ ATION 02/27/2025 [facility] DATE CREATED AUTHOR AUTHOR'S ORGANIZ ATION 03/03/2025 [facility] DATE CREATED AUTHOR AUTHOR'S ORGANIZ ATION 03/04/2025 [facility] Source Comments (unrecognize d section and content) In the event this informatio n is protected by the Federal Confidentiality of Alcohol and Drug Abuse Patient Records regulations: The Federal rules restrict any use of the information to criminally investigate or prosecute any alcohol or drug abuse patient.[facility] the event this information is protected by the Federal Confidentiality of Alcohol and Drug Abuse Patient Records regulations: The Federal rules restrict any use of the information to criminally investigate or prosecute any alcohol or drug abuse patient.[facility] Hospital[facility] the event this information is protected by the Federal Confidentiality of Alcohol and Drug Abuse Patient Records regulations: The Federal rules restrict any use of the information to criminally investigate or prosecute any alcohol or drug abuse patient.[facility] the event this information is protected by the Federal Confidentiality of Alcohol and Drug Abuse Patient Records regulations: The Federal rules restrict any use of the information to criminally investigate or prosecute any alcohol or drug abuse patient.[facility] the event this information is protected by the Federal Confidentiality of Alcohol and Drug Abuse Patient Records regulations: The Federal rules restrict any use of the information to criminally investigate or prosecute any alcohol or drug abuse patient.[facility] Hospital[facility] the event this information is protected by the Federal Confidentiality of Alcohol and Drug Abuse Patient Records regulations: The Federal rules restrict any use of the information to criminally investigate or prosecute any alcohol or drug abuse patient.[facility] Hospital[facility] the event this information is protected by the Federal Confidentiality of Alcohol and Drug Abuse Patient Records regulations: The Federal rules restrict any use of the information to criminally investigate or prosecute any alcohol or drug abuse patient.[facility] HospitalIn the event this information is protected by the Federal Confidentiality of Alcohol and Drug Abuse Patient Records regulations: The Federal rules restrict any use of the information to criminally investigate or prosecute any alcohol or drug abuse patient.[facility] Hospital[facility] the event this information is protected by the Federal Confidentiality of Alcohol and Drug Abuse Patient Records regulations: The Federal rules restrict any use of the information to criminally investigate or prosecute any alcohol or drug abuse patient.[facility] Hospital[facility] the event this information is protected by the Federal Confidentiality of Alcohol and Drug Abuse Patient Records regulations: The Federal rules restrict any use of the information to criminally investigate or prosecute any alcohol or drug abuse patient.[facility] Hospital[facility] the event this information is protected by the Federal Confidentiality of Alcohol and Drug Abuse Patient Records regulations: The Federal rules restrict any use of the information to criminally investigate or prosecute any alcohol or drug abuse patient.[facility] Hospital[facility] the event this information is protected by the Federal Confidentiality of Alcohol and Drug Abuse Patient Records regulations: The Federal rules restrict any use of the information to criminally investigate or prosecute any alcohol or drug abuse patient.[facility] Hospital[facility] the event this information is protected by the Federal Confidentiality of Alcohol and Drug Abuse Patient Records regulations: The Federal rules restrict any use of the information to criminally investigate or prosecute any alcohol or drug abuse patient.[facility] the event this information is protected by the Federal Confidentiality of Alcohol and Drug Abuse Patient Records regulations: The Federal rules restrict any use of the information to criminally investigate or prosecute any alcohol or drug abuse patient.[facility] the event this information is protected by the Federal Confidentiality of Alcohol and Drug Abuse Patient Records regulations: The Federal rules restrict any use of the information to criminally investigate or prosecute any alcohol or drug abuse patient.[facility] the event this information is protected by the Federal Confidentiality of Alcohol and Drug Abuse Patient Records regulations: The Federal rules restrict any use of the information to criminally investigate or prosecute any alcohol or drug abuse patient.[facility] HospitalIn the event this information is protected by the Federal Confidentiality of Alcohol and Drug Abuse Patient Records regulations: The Federal rules restrict any use of the information to criminally investigate or prosecute any alcohol or drug abuse patient.[facility] Hospital[facility] the event this information is protected by the Federal Confidentiality of Alcohol and Drug Abuse Patient Records regulations: The Federal rules restrict any use of the information to criminally investigate or prosecute any alcohol or drug abuse patient.[facility] the event this information is protected by the Federal Confidentiality of Alcohol and Drug Abuse Patient Records regulations: The Federal rules restrict any use of the information to criminally investigate or prosecute any alcohol or drug abuse patient.[facility] Hospital[facility] the event this information is protected by the Federal Confidentiality of Alcohol and Drug Abuse Patient Records regulations: The Federal rules restrict any use of the information to criminally investigate or prosecute any alcohol or drug abuse patient.[facility] the event this information is protected by the Federal Confidentiality of Alcohol and Drug Abuse Patient Records regulations: The Federal rules restrict any use of the information to criminally investigate or prosecute any alcohol or drug abuse patient.[facility] Hospital[facility] the event this information is protected by the Federal Confidentiality of Alcohol and Drug Abuse Patient Records regulations: The Federal rules restrict any use of the information to criminally investigate or prosecute any alcohol or drug abuse patient.[facility] the event this information is protected by the Federal Confidentiality of Alcohol and Drug Abuse Patient Records regulations: The Federal rules restrict any use of the information to criminally investigate or prosecute any alcohol or drug abuse patient.[facility] HospitalIn the event this information is protected by the Federal Confidentiality of Alcohol and Drug Abuse Patient Records regulations: The Federal rules restrict any use of the information to criminally investigate or prosecute any alcohol or drug abuse patient.[facility] the event this information is protected by the Federal Confidentiality of Alcohol and Drug Abuse Patient Records regulations: The Federal rules restrict any use of the information to criminally investigate or prosecute any alcohol or drug abuse patient.[facility] the event this information is protected by the Federal Confidentiality of Alcohol and Drug Abuse Patient Records regulations: The Federal rules restrict any use of the information to criminally investigate or prosecute any alcohol or drug abuse patient.[facility] the event this information is protected by the Federal Confidentiality of Alcohol and Drug Abuse Patient Records regulations: The Federal rules restrict any use of the information to criminally investigate or prosecute any alcohol or drug abuse patient.[facility] the event this information is protected by the Federal Confidentiality of Alcohol and Drug Abuse Patient Records regulations: The Federal rules restrict any use of the information to criminally investigate or prosecute any alcohol or drug abuse patient.[facility] Hospital[facility] the event this information is protected by the Federal Confidentiality of Alcohol and Drug Abuse Patient Records regulations: The Federal rules restrict any use of the information to criminally investigate or prosecute any alcohol or drug abuse patient.[facility] Hospital[facility] the event this information is protected by the Federal Confidentiality of Alcohol and Drug Abuse Patient Records regulations: The Federal rules restrict any use of the information to criminally investigate or prosecute any alcohol or drug abuse patient.[facility] Hospital[facility] the event this information is protected by the Federal Confidentiality of Alcohol and Drug Abuse Patient Records regulations: The Federal rules restrict any use of the information to criminally investigate or prosecute any alcohol or drug abuse patient.[facility] the event this information is protected by the Federal Confidentiality of Alcohol and Drug Abuse Patient Records regulations: The Federal rules restrict any use of the information to criminally investigate or prosecute any alcohol or drug abuse patient.[facility] HospitalIn the event this information is protected by the Federal Confidentiality of Alcohol and Drug Abuse Patient Records regulations: The Federal rules restrict any use of the information to criminally investigate or prosecute any alcohol or drug abuse patient.[facility] HospitalIn the event this information is protected by the Federal Confidentiality of Alcohol and Drug Abuse Patient Records regulations: The Federal rules restrict any use of the information to criminally investigate or prosecute any alcohol or drug abuse patient.[facility] HospitalIn the event this information is protected by the Federal Confidentiality of Alcohol and Drug Abuse Patient Records regulations: The Federal rules restrict any use of the information to criminally investigate or prosecute any alcohol or drug abuse patient.[facility] HospitalIn the event this information is protected by the Federal Confidentiality of Alcohol and Drug Abuse Patient Records regulations: The Federal rules restrict any use of the information to criminally investigate or prosecute any alcohol or drug abuse patient.[facility] Care Teams (unrecognized sec tion and content) Infrastructure Consultant Relationship Specialty Start Date End Date Jeremias Damico MD [address] [place] [address] PCP - General Family Practice 04/27/15 Infrastructure Consultant Relationship Specialty Start Date End Date Jeremias Damico MD [address] [place] [id number] PCP - General Family Practice 04/27/15 Infrastructure Consultant Relationship Specialty Start Date End Date Jeremias Damico MD [address] [place] [address] PCP - General Family Practice 04/27/15 Infrastructure Consultant Relationship Specialty Start Date End Date Jeremias Damico MD [facility] [place] [address] PCP - General Family Practice 04/27/15 Infrastructure Consultant Relationship Specialty Start Date End Date Jeremias Damico MD [facility] [place] [address] PCP - General Family Medicine 04/27/15 Infrastructure Consultant Relationship Specialty Start Date End Date Jeremias Damico MD [facility] [place] [address] PCP - General Family Medicine 04/27/15 Infrastructure Consultant Relationship Specialty Start Date End Date Jeremias Damico MD [facility] [place] [address] PCP - General Family Medicine 04/27/15 Infrastructure Consultant Relationship Specialty Start Date End Date Jeremias Damico MD [address] [place] [address] [place] [address] PCP - General Family Medicine 04/27/15 Infrastructure Consultant Relationship Specialty Start Date End Date Jeremias Damico MD [address] [place] [address] PCP - General Family Medicine 04/27/15 Infrastructure Consultant Relationship Specialty Start Date End Date Jeremias Damico MD [address] [place] [address] PCP - General Family Medicine 04/27/15 Infrastructure Consultant Relationship Specialty Start Date End Date Jeremias Damico MD [address] [place] [address] PCP - General Family Medicine 04/27/15 Infrastructure Consultant Relationship Specialty Start Date End Date Jeremias Damico MD [address] [place] [address] PCP - General Family Medicine 04/27/15 Infrastructure Consultant Relationship Specialty Start Date End Date Jeremias Damico MD [address] [place] [address] PCP - General Family Medicine 04/27/15 Infrastructure Consultant Relationship Specialty Start Date End Date Jeremias Damico MD [address] [place] [address] PCP - General Family Medicine 04/27/15 Infrastructure Consultant Relationship Specialty Start Date End Date Jeremias Damico MD [address] [place] [address] PCP - General Family Medicine 04/27/15 Infrastructure Consultant Relationship Specialty Start Date End Date Jeremias Damico MD [address] [place] [address] PCP - General Family Medicine 04/27/15 Infrastructure Consultant Relationship Specialty Start Date End Date Jeremias Damico MD [address] [place] [address] PCP - General Family Medicine 04/27/15 Infrastructure Consultant Relationship Specialty Start Date End Date Jeremias Damico MD [address] [place] [address] PCP - General Family Medicine 04/27/15 Team Status: Active Member Role Status Dates Dr. Jeremias Damico MD Family Provider Active Dr. Jeremias Damico MD Primary Care Provider Active Team Status: Inactive Member Role Status Dates Dr. Jeremias Damico MD Primary Care Provider Active Dr. Salomon Marquez MD Emergency Provider Active Infrastructure Consultant Relationship Specialty Start Date End Date Jeremias Damico MD [address] [place] [address] PCP - General Family Medicine 04/27/15 Infrastructure Consultant Relationship Specialty Start Date End Date Jeremias Damico MD [address] [place] [address] PCP - General Family Medicine 04/27/15 Infrastructure Consultant Relationship Specialty Start Date End Date Jeremias Damico MD [address] [place] [address] PCP - General Family Medicine 04/27/15 Infrastructure Consultant Relationship Specialty Start Date End Date Jeremias Damico MD [address] [place] [address] PCP - General Family Medicine 04/27/15 Infrastructure Consultant Relationship Specialty Start Date End Date Jeremias Damico MD [address] [facility] [place] [address] PCP - General Family Medicine 04/27/15 Infrastructure Consultant Relationship Specialty Start Date End Date Jeremias Damico MD [address] [facility] [place] [address] PCP - General Family Medicine 04/27/15 Infrastructure Consultant Relationship Specialty Start Date End Date Jeremias Damico MD [address] [facility] [place] [address] PCP - General Family Medicine 04/27/15 Diana Shook, NIDHI.ELEMENTARY ASSISTANT TEACHER [address] [facility] [place] [address] Gathering Machine Feeder Family Medicine 03/29/24 Zeeshan Mahmood GARNETT MECHANIC.ELEMENTARY ASSISTANT TEACHER [address] [facility] [place] [address] Gathering Machine Feeder Family Medicine 04/07/24 Infrastructure Consultant Relationship Specialty Start Date End Date Jeremias Damico MD [address] [facility] [place] [address] PCP - General Family Medicine 04/27/15 Diana Shook GARNETT MECHANIC.ELEMENTARY ASSISTANT TEACHER [address] [facility] [place] [address] Gathering Machine Feeder Family Medicine 03/29/24 Zeeshan Mahmood GARNETT MECHANIC.ELEMENTARY ASSISTANT TEACHER [address] [facility] [place] [address] Gathering Machine Feeder Family Medicine 04/07/24 Infrastructure Consultant Relationship Specialty Start Date End Date Jeremias Damico MD [address] [facility] [place] [address] PCP - General Family Medicine 04/27/15 Diana Shook, GARNETT MECHANIC.ELEMENTARY ASSISTANT TEACHER [address] [place] [address] Gathering Machine Feeder Family Medicine 03/29/24 Zeeshan Mahmood APRN.ELEMENTARY ASSISTANT TEACHER [address] [facility] [place] [address] Gathering Machine Feeder Family Medicine 04/07/24 Infrastructure Consultant Relationship Specialty Start Date End Date Jeremias Damico MD [address] [place] [address] PCP - General Family Medicine 04/27/15 Zeeshan Mahmood, GARNETT MECHANIC.ELEMENTARY ASSISTANT TEACHER [address] [place] [address] Gathering Machine Feeder Family Medicine 04/07/24 Infrastructure Consultant Relationship Specialty Start Date End Date Jeremias Damico MD [address] [place] [address] PCP - General Family Medicine 04/27/15 Zeeshan Mahmood, GARNETT MECHANIC.ELEMENTARY ASSISTANT TEACHER [address] [place] [address] Gathering Machine Feeder Family Medicine 04/07/24 Infrastructure Consultant Relationship Specialty Start Date End Date Jeremias Damico MD [address] [place] [address] PCP - General Family Medicine 04/27/15 Zeeshan Mahmood APRN.ELEMENTARY ASSISTANT TEACHER [address] [facility] [place] [address] Gathering Machine Feeder Family Medicine 04/07/24 Infrastructure Consultant Relationship Specialty Start Date End Date Jeremias Damico MD [address] [place] [address] PCP - General Family Medicine 04/27/15 Zeeshan Mahmood APRN.ELEMENTARY ASSISTANT TEACHER [address] [place] [address] Gathering Machine Feeder Family Medicine 04/07/24 Reason for Visit (unrecogniz [...] tract symptoms Procedures CONSULT TO UROLOGY OFFICE/OUTPATIENT [facility] 60-74 MINUTES Zeeshan Mahmood APRN.ELEMENTARY ASSISTANT TEACHER [address] [place] [address] Referral ID Status Reason Start Date Expiration Date Visits Requested Visits Authorized [id number] Pending Review PCP Requested Referral 01/19/2022 01/19/2023 1 1 Reason Comments EKG Specialty Diagnoses / Procedures Referred By Juventino gtz Referred To Contact [facility] Diagnoses Episodic cluster headache, not intractable Procedures ECG COMPLETE ECG ROUTINE ECG W/LEAST 12 LDS W/I&R Snow Brooks, GARNETT MECHANIC.ELEMENTARY ASSISTANT TEACHER [address] [place] [address] [facility] [place] [address] [place] [address] Referral ID Status Reason Start Date Expiration Date V isits Requested Visits Authorized [id number] Closed Auto-Generate d Referral 01/08/2022 01/08/2023 1 [...] Expiration Date V isits Requested Visits Authorized [id number] Closed Auto-Generate d Referral 12/09/2023 12/08/2024 1 [...] BE BASED ON THE PRIMARY CLINICAL RECORDS. [facility]. provides no warranty or guarantee of the accuracy or completeness of information in this document.
[2025-04-17 19:39] LABS: Troponin T High Sens 2 HR 22 ng/L (<=22)
[2025-04-17] MEDS: 0.9% Normal Saline (1000mL) 1,000 ML 100 ML IV (20:19)
[2025-04-17] MEDS: APIXABAN 5 MG TABLET PO (21:09)
[2025-04-17 22:17] LABS: Troponin T High Sens 4 HR 24 ng/L (<=22)
[2025-04-18] VITALS (7 sets, daily range): BP systolic 164–174; BP diastolic 84–109; PULSE 64–93; RESP 14–18; TEMP 36.3–36.8; O2SAT 95–100; BMI 23.8
[2025-04-18 05:41] LABS: Hematocrit 30.5 % (40-54); Hemoglobin 10.2 g/dL (13.0-16.5); Immature Granulocytes Count 0.020 X10^3/uL (0.0-0.0); Mean Corp Hgb Conc 33.4 g/dL (32-36); Mean Corpuscular Volume 92.7 fL (80-94); Mean Platelet Vol. 10.2 fl (6.2-12.0); NRBC Flagged by Analyzer 0 % (0-5); Platelet Count 187 K/mm3 (150-450); RBC Distribution Width CV 13.6 % (11.6-14.6); RBC Distribution Width SD 46.7 fl (35.1-43.9); Red Blood Count 3.29 M/mm3 (4.6-6.2); White Blood Count 6.8 K/mm3 (4.4-11.0)
[2025-04-18 06:56] LABS: AST(SGOT) 16 U/L (<=37); Alanine Aminotransfer ALT/SGPT 9 U/L (<=46); Albumin, Serum 3.5 g/dL (3.4-4.8); Alkaline Phosphatase 83 U/L (40-129); Anion Gap 10 (7-18); BUN 15 mg/dL (4-19); BUN/Creat Ratio 16.4 RATIO (10-20); Calcium,Total 8.7 mg/dL (7.6-11.0); Carbon Dioxide 22.7 mmol/L (20.0-29.0); Chloride 107 mmol/L (96-106); Cholesterol 115 mg/dL (<=200); Estimated Creatinine Clearance 61.96 ml/min (50-250); Globulin 2.2 g/dL (2.2-4.2); Glucose 117 mg/dL (70-99); Low Density Lipoprotein Calc. 50 mg/dL; Potassium 3.8 mmol/L (3.5-5.1); Triglycerides 128 mg/dL; Very Low Density Lipoprotein 26 mg/dL (5-40); cholesterol:hdl ratio screen 2.74
[2025-04-18] MEDS: APIXABAN 5 MG TABLET PO ×2 (09:18→22:24)
--- NOTE | 2025-04-18 10:11 | STROKE.CONS ---
Assessment and Plan: Stroke Assessment/Plan ELSA ARMENDARIZ is a 85 M with a history of former tobacco use, Chronic macrocytic anemia, Cluster headaches HTN, HLD, GERD w/ Hx GI bleed, Anxiety and Depression, CAD s/p CABG x 4 following NSTEMI admission 02/24/2025 at [facility], PAF, BPH with obstructive pathology, Hypothyroidism, CKD stage II per GFR who presents for evaluation of transient slurred speech. Not a TNK or MT candidate. Neurological examination shows intact examination. Neuroimaging shows Ct head: negative, CTA: moderate plaque bilateral ICA but no stenosis. LDL: 50, HbA1C:5.9. Continue Eliquis and plavix Continue statin to target LDL <70 Target euglycemia MRI, ECHO pending Permissive HTN acutely. Target <180 and gradual normalization. Pt,OT eval Stroke education Thanks for consult. Spent 35 min in evaluation and management. HPI Consult Data Date of Consult: 04/18/25 HPI Narrative HPI Narrative: ELSA ARMENDARIZ, is a 85 M former tobacco use, Chronic macrocytic anemia, Cluster headaches HTN, HLD, GERD w/ Hx GI bleed, Anxiety and Depression, CAD s/p CABG x 4 following NSTEMI admission 02/24/2025 at [facility], PAF, BPH with obstructive pathology, Hypothyroidism, CKD stage II per GFR trending who presents to the ED on 04/17/2025 with slurred speech which started at 1530 yesterday. he had similar slurred speech following his CABG reportedly going into A-fib perioperatively. Patient reportedly had actually been doing a puzzle with his when he had onset of the altered speech, when family observed it was slurred and when he got up to stand he did have mild lightheadedness. It has subsided. NIHSS was 1 on telestroke evaluation. He is back to his baseline. Not a TNK or MT candidate. EKG with A-fib, rate controlled with no acute evidence of ischemia CT brain with no acute intracranial finding with chronic evolution of ischemic gliotic white matter changes CTA head and neck with moderate plaque formation in bilateral carotid bulbs and internal carotid arteries with no hemodynamically significant stenosis or occlusion in the head or neck, chest x-ray with no acute cardiopulmonary findings. On Plavix, eliquis and compliant with it. [facility] Medical History Cluster headache BPH (benign prostatic hyperplasia) CKD (chronic kidney disease), stage II NSTEMI (non-ST elevated myocardial infarction) Anemia Hypothyroidism Hyperlipidemia Coronary artery disease Essential (primary) hypertension Atrial fibrillation Home Medications ?Medication ?Instructions ?Recorded ?Last Taken ?Type tamsulosin 0.4 mg capsule 0.8 mg PO QHS prostate 11/04/19 07/14/23 History atorvastatin 40 mg tablet 40 mg PO QHS cholesterol #0 tabs 02/24/25 Unknown Rx finasteride 5 mg tablet 5 mg PO QHS prostate 02/24/25 02/23/25 History levothyroxine 100 mcg tablet 100 mcg PO DAILY thyroid 02/24/25 02/24/25 History (Synthroid) metoprolol tartrate 25 mg tablet 25 mg PO BID BP #0 tabs 02/24/25 Unknown Rx multivit,Ca,min-iron 8 mg-folic 1 tab PO DAILY supplement 02/24/25 02/24/25 History acid 200 mcg-lycopene 600 mcg tablet (Men's Daily Multivitamin) apixaban 5 mg tablet (Eliquis) 5 mg PO BID 30 days #60 tabs 03/30/25 Unknown Rx losartan 50 mg tablet 75 mg (1.5 x 50 mg) PO QHS 30 days 03/30/25 Unknown Rx #45 tabs mirtazapine 15 mg tablet 7.5 mg (1/2 x 15 mg) PO QHS 30 03/30/25 Unknown Rx days #15 tabs pantoprazole 40 mg tablet,delayed 40 mg PO BID 30 days #60 tabs 03/30/25 Unknown Rx release sucralfate 1 gram tablet 1 g PO BID 1 month #60 tabs 04/05/25 Unknown Rx clopidogrel 75 mg tablet 75 mg PO QHS 04/17/25 Unknown History Allergy/AdvReac Type Severity Reaction Status Date / Time Penicillins Allergy NEEDS Verified 04/17/25 16:58 FOLLOW-UP fermented products Allergy NEEDS Uncoded 11/04/19 10:09 FOLLOW-UP Family History Mother Congestive heart failure Father Colon cancer Surgical History Status post four vessel coronary artery bypass History of hand surgery History of left breast biopsy History of colonoscopy History of meniscectomy of left knee Social History household members: spouse Smoking Status: Former smoker alcohol intake: never substance use type: does not use Vital Signs Vital Signs Vital Signs: 04/17/25 16:56 04/17/25 17:02 04/17/25 17:12 Temperature 98.7 F Temperature Source Oral Pulse Rate 91 94 Pulse Strength Respiratory Rate 16 16 Respiratory Effort Respiratory Depth Respiratory Pattern Blood Pressure 162/135 H Blood Pressure Mean 144 Blood Pressure Source Blood Pressure Position Blood Pressure Location Pulse Ox 99 99 100 Oxygen Delivery Method Room Air Room Air Room Air 04/17/25 17:12 04/17/25 17:45 04/17/25 18:00 Temperature 98.9 F 98.1 F 98 F Temperature Source Oral Oral Oral Pulse Rate 63 73 75 Pulse Strength Respiratory Rate 16 23 H 23 H Respiratory Effort Respiratory Depth Respiratory Pattern Blood Pressure 181/92 H 167/106 H 176/92 H Blood Pressure Mean 121 126 120 Blood Pressure Source Blood Pressure Position Blood Pressure Location Pulse Ox 100 100 97 Oxygen Delivery Method Room Air Room Air Room Air 04/17/25 18:00 04/17/25 18:31 04/17/25 18:47 Temperature 98 F 97.8 F 98 F Temperature Source Oral Oral Pulse Rate 81 69 66 Pulse Strength Respiratory Rate 15 13 20 H Respiratory Effort Respiratory Depth Respiratory Pattern Blood Pressure 176/92 H 197/94 H 201/98 H Blood Pressure Mean 120 128 132 Blood Pressure Source Blood Pressure Position Blood Pressure Location Pulse Ox 100 97 99 Oxygen Delivery Method Room Air Room Air 04/17/25 19:00 04/17/25 19:00 04/17/25 19:30 Temperature Temperature Source Pulse Rate 79 79 58 L Pulse Strength Respiratory Rate 18 18 17 Respiratory Effort Respiratory Depth Respiratory Pattern Blood Pressure 192/84 H 192/84 H 163/81 H Blood Pressure Mean 120 120 108 Blood Pressure Source Blood Pressure Position Blood Pressure Location Pulse Ox 99 99 92 Oxygen Delivery Method Room Air Room Air Room Air 04/17/25 19:53 04/17/25 22:00 04/17/25 23:53 Temperature 96.6 F L 96.7 F L Temperature Source Oral Temporal Pulse Rate 89 73 Pulse Strength Respiratory Rate 89 H 18 Respiratory Effort Normal Non-Labored Respiratory Depth Respiratory Pattern Blood Pressure 195/90 H 156/89 H Blood Pressure Mean 125 111 Blood Pressure Source Monitor Monitor Blood Pressure Position Semi-Fowlers Semi-Fowlers Blood Pressure Location Right Arm Right Arm Pulse Ox 96 96 Oxygen Delivery Method Room Air Room Air Room Air 04/18/25 03:53 04/18/25 07:44 04/18/25 07:46 Temperature 97.5 F L 97.7 F L Temperature Source Temporal Oral Pulse Rate 74 64 Pulse Strength Respiratory Rate 18 18 Respiratory Effort Normal Non-Labored Respiratory Depth Normal Respiratory Pattern Normal Blood Pressure 166/87 H 164/109 H Blood Pressure Mean 113 127 Blood Pressure Source Monitor Monitor Blood Pressure Position Semi-Fowlers Semi-Fowlers Blood Pressure Location Right Arm Right Arm Pulse Ox 98 96 Oxygen Delivery Method Room Air Room Air Room Air 04/18/25 08:47 Temperature Temperature Source Pulse Rate Pulse Strength Normal (2+) Respiratory Rate Respiratory Effort Respiratory Depth Respiratory Pattern Blood Pressure Blood Pressure Mean Blood Pressure Source Blood Pressure Position Blood Pressure Location Pulse Ox Oxygen Delivery Method Weight Weight: 75.4 kg Body Mass Index (BMI) 23.8 Physical Exam Const alert and oriented x3 General Appearance: cooperative and comfortable Orientation / Consciousness: awake, oriented to person, oriented to place and oriented to time Exam Limitations: no limitations HEENT normocephalic and head/scalp atraumatic Face and Sinus: normal facial exam Nose: external nose normal External Ear: external ears normal Eyes General Eye: normal appearance of both eyes Neuro Neuro Narrative: Awake, alert oriented X3 Speech fluent CN: 2-12 intact Motor 5/5 Sensation intact No ataxia Lab / Micro Data 04/18/25 04:49 04/18/25 04:49 Labs: Laboratory Results - last 24 hr 04/17/25 16:56: POC Glucose 108 H 04/17/25 17:00: WBC 8.4, RBC 3.59 L, Hgb 11.2 L, Hct 34.0 L, MCV 94.7 H, MCH 31.2, MCHC 32.9, RDW Std Deviation 47.0 H, RDW Coeff of Charles 13.5, Plt Count 205, MPV 9.8, Immature Gran % (Auto) 0.200, Neut % (Auto) 59.2, Lymph % (Auto) 27.0, [place] % (Auto) 7.8, Eos % (Auto) 4.8, Baso % (Auto) 1.0, Absolute Neuts (auto) 5.0, Absolute Lymphs (auto) 2.27, Nucleated RBC % 0, PT 14.9, INR 1.1, APTT 29.4, Sodium 138, Potassium 4.4, Chloride 103, Carbon Dioxide 26.9, Anion Gap 8, BUN 19, Creatinine 1.01, Estim Creat Clear Calc 55.21, Est GFR (MDRD) Non-Af 73, BUN/Creatinine Ratio 19.1, Glucose 124 H, Calcium 9.3, Magnesium 2.3 H, Troponin T High Sens 26 H D 04/17/25 19:07: Troponin T Hi Sens 2 Hr 22 04/17/25 21:28: Troponin T Hi Sens 4Hr 24 H 04/18/25 04:49: WBC 6.8, RBC 3.29 L, Hgb 10.2 L, Hct 30.5 L, MCV 92.7, MCH 31.0, MCHC 33.4, RDW Std Deviation 46.7 H, RDW Coeff of Charles 13.6, Plt Count 187, MPV 10.2, Immature Gran % (Auto) 0.300, Neut % (Auto) 65.1, Lymph % (Auto) 20.4, [place] % (Auto) 7.9, Eos % (Auto) 5.6 H, Baso % (Auto) 0.7, Absolute Neuts (auto) 4.4, Absolute Lymphs (auto) 1.39, Nucleated RBC % 0, Sodium 139, Potassium 3.8, Chloride 107 H, Carbon Dioxide 22.7, Anion Gap 10, BUN 15, Creatinine 0.90, Estim Creat Clear Calc 61.96, Est GFR (MDRD) Non-Af 84, BUN/Creatinine Ratio 16.4, Glucose 117 H, Hemoglobin A1c 5.9 H, Calcium 8.7, Total Bilirubin 0.39, AST 16, ALT 9, Alkaline Phosphatase 83, Total Protein 5.6 L, Albumin 3.5, Globulin 2.2, Albumin/Globulin Ratio 1.6, Triglycerides 128, Cholesterol 115, LDL Cholesterol, Calc 50, VLDL Cholesterol 26, HDL Cholesterol 42, Cholesterol/HDL Ratio 2.74, TSH 5.250 H Imaging Radiology Impression Brain CT 04/17/25 16:58 IMPRESSION: 1. No intracranial hemorrhage. No mass effect or midline shift. 2. Chronic involutional and ischemic gliotic white matter changes. CT is insensitive for early evaluation of acute stroke. If there is clinical concern for acute ischemia, an MRI may be considered. Stroke Alert: The critical findings in the findings and impression above were relayed directly by me by telephone to Christoph Aguilar on 04/17/2025 at 5:23 pm EST with readback verification. Reading Location: [facility] Head/Neck CTA 04/17/25 16:59 IMPRESSION: 1. Moderate plaque formation of the bilateral carotid bulbs and internal carotid arteries. 2. No hemodynamically significant stenosis or occlusion in the head and neck vasculature. Reading Location: [facility] Chest X-Ray 04/17/25 17:25 IMPRESSION: No Acute Findings. Reading Location: [facility] Active Medications Active Medications Active Medications: Current Medications Generic Name Dose Route Start Last Admin Trade Name Freq PRN Reason Stop Dose Admin Acetaminophen 650 mg 04/17/25 19:53 Acetaminophen 325 Mg Tablet PO Q4H PRN PRN Fever, pain 1-10 Al Hydrox/Mg Hydrox/Simethicone 30 ml 04/17/25 19:53 Mag /Aluminum/Simeth Wch Udc 30 Ml Oral.Susp PO Q6H PRN PRN Gastric Burning Albuterol Sulfate 2.5 mg 04/17/25 19:53 Albuterol 2.5 Mg/3 Ml Vial.Neb. INHALATION Q2H PRN PRN Dyspnea, wheezing Apixaban 5 mg 04/17/25 22:00 04/18/25 09:18 Apixaban 5 Mg Tablet PO 5 mg BID JOSÉ ANTONIO Administration Atorvastatin Calcium 40 mg 04/17/25 22:00 04/17/25 21:11 Atorvastatin Calcium 40 Mg Tablet PO 40 mg QHS JOSÉ ANTONIO Administration Clopidogrel Bisulfate 75 mg 04/17/25 22:00 04/17/25 21:10 Clopidogrel Bisulfate 75 Mg Tablet PO 75 mg QHS JOSÉ ANTONIO Administration Finasteride 5 mg 04/17/25 22:00 04/17/25 21:09 Finasteride 5 Mg Tablet PO 5 mg QHS JOSÉ ANTONIO Administration Guaifenesin 20 ml 04/17/25 19:53 Guaifenesin 10 Ml Udc (200mg/10ml) PO Q4H PRN PRN COUGH Hydralazine HCl 5 mg 04/17/25 19:53 Hydralazine 20 Mg/Ml Vial IV 04/18/25 19:53 Q30M PRN maintain BP parameters with HR <60 Sodium Chloride 250 mls @ 15 mls/hr 04/17/25 20:30 IV .[id number] PRN Saline Flush Sodium Chloride 250 mls @ 15 mls/hr 04/17/25 20:30 IV .[id number] PRN Additional IVPB Infusion Labetalol HCl 10 - 20 mg 04/17/25 19:53 Labetalol 20 Mg/4 Ml Vial IV 04/18/25 19:53 Q10M PRN PRN maintain BP parameters with HR >/=60 Levothyroxine Sodium 100 mcg 04/18/25 06:00 04/18/25 05:46 Levothyroxine 100 Mcg Tablet PO 100 mcg DAILY@0600 JOSÉ ANTONIO Administration Melatonin 3 mg 04/17/25 19:53 Melatonin 3 Mg Tablet PO QHS PRN PRN INSOMNIA Mirtazapine 7.5 mg 04/17/25 22:00 04/17/25 21:10 Mirtazapine 15 Mg Tablet PO 7.5 mg QHS JOSÉ ANTONIO Administration Multivitamins/Minerals 1 tablet 04/18/25 08:00 04/18/25 09:17 Multivitamins,Ther W-Minerals Tablet PO 1 tablet DAILYCM JOSÉ ANTONIO Administration Ondansetron HCl 4 mg 04/17/25 19:53 Ondansetron 4 Mg/2 Ml Vial IV Q8H PRN PRN NAUSEA/VOMITING Pantoprazole Sodium 40 mg 04/17/25 22:00 04/18/25 09:18 Pantoprazole Sodium 40 Mg Tablet PO 40 mg BID JOSÉ ANTONIO Administration Senna/Docusate Sodium 2 tablet 04/17/25 19:53 Senna/Docusate Sodium 1 Tablet PO BID PRN PRN Constipation Sodium Chloride 10 - 40 ml 04/17/25 20:30 0.9% Saline Lock 10 Ml Syringe IV UD PRN SALINE FLUSH Sucralfate 1 gm 04/17/25 22:00 04/18/25 09:17 Sucralfate 1 Gm Tablet PO 1 gm BID JOSÉ ANTONIO Administration Tamsulosin HCl 0.8 mg 04/17/25 22:00 04/17/25 21:10 Tamsulosin Hcl 0.4 Mg Capsule PO 0.8 mg QHS JOSÉ ANTONIO Administration NIHSS NIHSS Nursing Documentation NIHSS Nursing Documentation: NIHSS: Ischemic Stroke/TIA Start: 04/17/25 19:53 Text: For PCU Patients: NIH and Neuro Check every 4 Status: Active hours, PRN and with change in RN caregiver. Freq: [id number] Protocol: Activity Type Activity Date Activity User E-sign Co-sign Detail Recorded Client Recorded Date Recorded By Document 04/18/25 07:45 FRANCINE [id number] 04/18/25 07:49 FRANCINE 04/18/25 07:45 NIH Stroke Scale [NIHSS] A score of 0 is normal or asymptomatic . Total possible score is 42. Inpatient: RN or Physician to activate a stroke alert for onset of new stroke symptoms or with NIHSS increase >/= 3 points. Following change in neurological status, NIHSS will be performed per physician order or more frequently PRN. -1a. Level of Consciousness 0 - Alert; keenly responsive -1b. LOC Questions 0 - Answers BOTH questions correctly -1c. LOC Commands 0 - Performs BOTH tasks correctly -2. Best Gaze 0 - Normal -3. Visual 0 - No visual loss -4. Facial Palsy 0 - Normal symmetrical movements -5a. Left Arm 0 - No drift; arm holds 90 ( or 45) degrees for full 10 seconds -5b. Right Arm 0 - No drift; arm holds 90 ( or 45) degrees for full 10 seconds -6a. Left Leg 0 - No drift; leg holds 30- degree position for full 5 seconds -6b. Right Leg 0 - No drift; leg holds 30- degree position for full 5 seconds -7. Limb Ataxia 0 - Absent -8. Sensory 0 - Normal; no sensory loss -9. Best Language 0 - No aphasia; normal -10. Dysarthria 0 - Normal -11. Extinction and Inattention 0 - No abnormality -Total 0 Query Text:A score of 0 is normal or asymptomatic. Total possible score is 42 . ED: Notify Physician for NIHSS increase by > / = 3 points. Inpatient: RN or Physician to activate a stroke alert for NIHSS increase of > / = 3 points. Coma Scale [Assess] -Eye Opening Spontaneous -Motor Obeys Commands -Verbal Oriented [Total] -Coma Scale Total 15 NIHSS 1a. Level of Consciousness: 0 - Alert; keenly responsive 1b. LOC Questions: 0 - Answers BOTH questions correctly 1c. LOC Commands: 0 - Performs BOTH tasks correctly 2. Best Gaze: 0 - Normal 3. Visual: 0 - No visual loss 4. Facial Palsy: 0 - Normal symmetrical movements 5a. Left Arm: 0 - No drift; arm holds 90 (or 45) degrees for full 10 seconds 5b. Right Arm: 0 - No drift; arm holds 90 (or 45) degrees for full 10 seconds 6a. Left Le - No drift; leg holds 30-degree position for full 5 seconds 6b. Right Le - No drift; leg holds 30-degree position for full 5 seconds 7. Limb Ataxia: 0 - Absent 8. Sensory: 0 - Normal; no sensory loss 9. Best Language: 0 - No aphasia; normal 10. Dysarthria: 0 - Normal 11. Extinction and Inattention: 0 - No abnormality Total: 0
--- NOTE | 2025-04-18 10:27 | PN.HOSP_ITS ---
Subjective Subjective Doing well, no issues overnight Objective Data Objective Data Vital Signs: Vital Signs Temp Pulse Resp BP Pulse Ox O2 Del Method 97.7 F L 64 18 164/109 H 96 Room Air 04/18/25 07:44 04/18/25 07:44 04/18/25 07:44 04/18/25 07:44 04/18/25 07:44 04/18/25 07:46 Oxygen Delivery Method Room Air Weight: 166 lb 3.657 oz Body Mass Index (BMI) 23.8 Intake & Output: Intake and Output for Last 24 Hours 04/17/25 04/18/25 04/19/25 03:59 03:59 03:59 Intake Total 1000 / 1000 Output Total 350 / 350 750 / 750 Balance -350 / -350 250 / 250 Lab / Micro Data 04/18/25 04:49 04/18/25 04:49 Labs: Laboratory Results - last 24 hr 04/17/25 16:56: POC Glucose 108 H 04/17/25 17:00: WBC 8.4, RBC 3.59 L, Hgb 11.2 L, Hct 34.0 L, MCV 94.7 H, MCH 31.2, MCHC 32.9, RDW Std Deviation 47.0 H, RDW Coeff of Charles 13.5, Plt Count 205, MPV 9.8, Immature Gran % (Auto) 0.200, Neut % (Auto) 59.2, Lymph % (Auto) 27.0, [place] % (Auto) 7.8, Eos % (Auto) 4.8, Baso % (Auto) 1.0, Absolute Neuts (auto) 5.0, Absolute Lymphs (auto) 2.27, Nucleated RBC % 0, PT 14.9, INR 1.1, APTT 29.4, Sodium 138, Potassium 4.4, Chloride 103, Carbon Dioxide 26.9, Anion Gap 8, BUN 19, Creatinine 1.01, Estim Creat Clear Calc 55.21, Est GFR (MDRD) Non-Af 73, BUN/Creatinine Ratio 19.1, Glucose 124 H, Calcium 9.3, Magnesium 2.3 H, Troponin T High Sens 26 H D 04/17/25 19:07: Troponin T Hi Sens 2 Hr 22 04/17/25 21:28: Troponin T Hi Sens 4Hr 24 H 04/18/25 04:49: WBC 6.8, RBC 3.29 L, Hgb 10.2 L, Hct 30.5 L, MCV 92.7, MCH 31.0, MCHC 33.4, RDW Std Deviation 46.7 H, RDW Coeff of Charles 13.6, Plt Count 187, MPV 10.2, Immature Gran % (Auto) 0.300, Neut % (Auto) 65.1, Lymph % (Auto) 20.4, [place] % (Auto) 7.9, Eos % (Auto) 5.6 H, Baso % (Auto) 0.7, Absolute Neuts (auto) 4.4, Absolute Lymphs (auto) 1.39, Nucleated RBC % 0, Sodium 139, Potassium 3.8, Chloride 107 H, Carbon Dioxide 22.7, Anion Gap 10, BUN 15, Creatinine 0.90, Estim Creat Clear Calc 61.96, Est GFR (MDRD) Non-Af 84, BUN/Creatinine Ratio 16.4, Glucose 117 H, Hemoglobin A1c 5.9 H, Calcium 8.7, Total Bilirubin 0.39, AST 16, ALT 9, Alkaline Phosphatase 83, Total Protein 5.6 L, Albumin 3.5, Globulin 2.2, Albumin/Globulin Ratio 1.6, Triglycerides 128, Cholesterol 115, LDL Cholesterol, Calc 50, VLDL Cholesterol 26, HDL Cholesterol 42, Cholesterol/HDL Ratio 2.74, TSH 5.250 H Radiography Diagnostic Testing: Radiology Impression Brain CT 04/17/25 16:58 IMPRESSION: 1. No intracranial hemorrhage. No mass effect or midline shift. 2. Chronic involutional and ischemic gliotic white matter changes. CT is insensitive for early evaluation of acute stroke. If there is clinical concern for acute ischemia, an MRI may be considered. Stroke Alert: The critical findings in the findings and impression above were relayed directly by me by telephone to Christoph Aguilar on 04/17/2025 at 5:23 pm EST with readback verification. Reading Location: [facility] Head/Neck CTA 04/17/25 16:59 IMPRESSION: 1. Moderate plaque formation of the bilateral carotid bulbs and internal carotid arteries. 2. No hemodynamically significant stenosis or occlusion in the head and neck vasculature. Reading Location: [facility] Chest X-Ray 04/17/25 17:25 IMPRESSION: No Acute Findings. Reading Location: [facility] Physical Exam Narrative General: Alert, Oriented x3, Cooperative, No apparent distress HEENT: Atraumatic, PERRLA, EOMI, Normocephalic Oral: Moist Mucosa Neck: Supple, No JVD Lungs: Diminished, Normal air movement, No rhonchi, No wheeze, No rales Cardiovascular: Regular rate, Regular Rhythm, Normal S1, Normal S2, No murmurs Abdomen: Soft, Non Tender, Non-Distended, No Hepato-splenomegaly Extremities: No edema, Capillary Refill Less than 3 Seconds Skin: No rashes, No breakdown Musculoskeletal: No Tenderness to Palpation of Joints or Extremities Neurological: No focal neurological deficits, moves all extremities, NIH of 0 Psych/Mental Status: Normal Affect, Appropriate Assessment & Plan Assessment/Plan (1) CVA (cerebral vascular accident): PLAN: Plan 1. Slurred speech concern for possible stroke ? MRI tomorrow ? CTA of the head and neck was unremarkable ? CT brain was negative 2. CAD status post CABG/essential HTN/HLD/paroxysmal A-fib ? Continue with Eliquis ? Continue with Plavix ? Will allow some permissive hypertension and can restart blood pressure medications on discharge ? Will monitor make adjustments as necessary 3. Hypothyroidism ? Stable ? Continue with Synthroid 4. Anxiety/depression ? Stable ? Continue with his home medications 5. GERD with history of GI bleed ? Stable ? Continue PPI 6. BPH with obstruction ? Stable ? Continue with his home medications DVT: Eliquis Charges/Coding Visit Charges Inpatient E&M: 87296 Subs Hosp L2 NIHSS NIHSS Nursing Documentation NIHSS Nursing Documentation: NIHSS: Ischemic Stroke/TIA Start: 04/17/25 19:53 Text: For PCU Patients: NIH and Neuro Check every 4 Status: Active hours, PRN and with change in RN caregiver. Freq: [id number] Protocol: Activity Type Activity Date Activity User E-sign Co-sign Detail Recorded Client Recorded Date Recorded By Document 04/18/25 07:45 FRANCINE [id number] 04/18/25 07:49 FRANCINE 04/18/25 07:45 NIH Stroke Scale [NIHSS] A score of 0 is normal or asymptomatic . Total possible score is 42. Inpatient: RN or Physician to activate a stroke alert for onset of new stroke symptoms or with NIHSS increase >/= 3 points. Following change in neurological status, NIHSS will be performed per physician order or more frequently PRN. -1a. Level of Consciousness 0 - Alert; keenly responsive -1b. LOC Questions 0 - Answers BOTH questions correctly -1c. LOC Commands 0 - Performs BOTH tasks correctly -2. Best Gaze 0 - Normal -3. Visual 0 - No visual loss -4. Facial Palsy 0 - Normal symmetrical movements -5a. Left Arm 0 - No drift; arm holds 90 ( or 45) degrees for full 10 seconds -5b. Right Arm 0 - No drift; arm holds 90 ( or 45) degrees for full 10 seconds -6a. Left Leg 0 - No drift; leg holds 30- degree position for full 5 seconds -6b. Right Leg 0 - No drift; leg holds 30- degree position for full 5 seconds -7. Limb Ataxia 0 - Absent -8. Sensory 0 - Normal; no sensory loss -9. Best Language 0 - No aphasia; normal -10. Dysarthria 0 - Normal -11. Extinction and Inattention 0 - No abnormality -Total 0 Query Text:A score of 0 is normal or asymptomatic. Total possible score is 42 . ED: Notify Physician for NIHSS increase by > / = 3 points. Inpatient: RN or Physician to activate a stroke alert for NIHSS increase of > / = 3 points. Coma Scale [Assess] -Eye Opening Spontaneous -Motor Obeys Commands -Verbal Oriented [Total] -Coma Scale Total 15
[2025-04-19 02:10] VITALS: BP 157/91; PULSE 91; RESP 18; TEMP 36.7; O2SAT 95
[2025-04-19 06:00] VITALS: BP 165/85; PULSE 100; RESP 18; TEMP 36.3; O2SAT 97; BMI 23.7
--- NOTE | 2025-04-19 07:00 | MRI_ITS ---
PROCEDURE: BRAIN WITHOUT CONTRAST N/A REASON FOR EXAM: TIA/CVA TECHNIQUE: Procedure Code: MRIBR Modality: MR Procedure: BRAIN WITHOUT CONTRAST Multiplanar and multisequence images were obtained. COMPARISON: STROKE Brain/Head without Cont, 04/17/2025 FINDINGS: BRAIN: No restricted diffusion to indicate acute infarction. No intracranial mass or hemorrhage. No midline shift or extra-axial fluid collection. No sulcal effacement. Mild high T2/FLAIR signal intensity in the deep white matter, likely microvascular ischemic changes. Diffuse cortical volume loss. No cerebellar tonsillar ectopia. The central arterial and venous flow voids are patent. VENTRICLES: No hydrocephalus. ORBITS: Intraocular lens implants bilaterally. The orbits are otherwise unremarkable. SINUSES AND MASTOIDS: Mild left maxillary and bilateral ethmoid sinus mucosal thickening. The mastoid air cells are clear. BONES: No focal osseous lesion. MRI/Brain without Contrast IMPRESSION: 1. No acute intracranial abnormality. 2. Age-related senescent changes. Reading Location: [id number]
[2025-04-19 07:31] VITALS: BP 152/94; PULSE 76; RESP 16; TEMP 36.5; O2SAT 96
[2025-04-19 08:31] VITALS: BMI 23.7
[2025-04-19] MEDS: APIXABAN 5 MG TABLET PO (08:59)
--- NOTE | 2025-04-19 11:50 | DCINST_ITS ---
Discharge Instructions DC O2, CPAP, BIPAP needs Home O2 Discharge instructions: No Dressing / Incision Discharge Activity: Return to Normal Activity Dressing / Incision Call your doctor if you observe: Fever of 101 or Higher, Shortness of breath, Dizziness, Fainting spells, Swelling in the ankles, Chest pain and Increased palpitations (irregular heartbeat) Follow Up Care Test Results: Test results from this visit will be discussed in further detail at your follow- up appointment, if applicable. Discharge Plan Admission Admit Date/Time: 04/17/25 18:48 Attending Provider: Sree Cline Primary Care Provider: Daniel Damico Consulting Providers: Abdulkadir Ford; Giselle Shah; Kina Baum; Yue Hoover; Becca Jones; Brown López; Flor Holguin; Bharathi Zelaya; Gagandeep Salomon; Kumar Kumari; Shivani Dominguez; Joycelyn Boo; Manpreet Lemus; Niya Seaman; Sudheer Serna; Demetri Gutierres; Fco Cintron; Telma Kelley; Jc Pickering; Vero Jameson; Khari Wheat; Regla Jack Discharge Orders/Prescriptions Prescriptions: Continued tamsulosin 0.4 MG capsule 0.8 mg PO QHS clopidogrel 75 mg tablet 75 mg PO QHS levothyroxine [Synthroid] 100 mcg tablet 100 mcg PO DAILY finasteride 5 mg tablet 5 mg PO QHS Men's Daily Multivitamin 8 mg iron- 200 mcg-600 mcg tablet 1 tab PO DAILY atorvastatin 40 mg Tablet 40 mg PO QHS Qty: 0 0RF metoprolol tartrate 25 mg Tablet 25 mg PO BID Qty: 0 0RF losartan 50 mg Tablet 75 mg PO QHS 30 Days Qty: 45 0RF pantoprazole 40 mg Tablet,Delayed Release (Dr/Ec) 40 mg PO BID 30 Days Qty: 60 0RF mirtazapine 15 mg Tablet 7.5 mg PO QHS 30 Days Qty: 15 0RF Eliquis 5 mg Tablet 5 mg PO BID 30 Days Qty: 60 0RF sucralfate 1 gram tablet 1 g PO BID 30 Days Qty: 60 0RF Referrals / Follow Up: Daniel Damico MD [Primary Care Provider, [facility]] - Within 1 Week Disposition Disposition (needs filled in before D/C Order can be placed): Home, Self Care
[2025-04-19 11:52] VITALS: BP 168/100; PULSE 83; RESP 18; TEMP 36.6; O2SAT 95
--- NOTE | 2025-04-19 12:01 | CASEMGMT ---
ANIRUDH SUTTON noted DC order. Reviewed therapy notes, not recommending need for additional therapy at this time. Reviewed DC order, no needs identified at this time.
--- NOTE | 2025-04-19 12:22 | DS.PCM_ITS ---
Providers Date of Admission: 04/17/25 Primary Care Physician: Dr. 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 this Nursing Unit Staff Notify [facility] of Tele-Neurology Consult: Yes Reason For Visit: neuro sx- TIA/CVA Diagnosis Discharge Diagnosis (1) CVA (cerebral vascular accident): Status: Acute Code(s): I63.9 - Cerebral infarction, unspecified Medications at Discharge Home Medications tamsulosin 0.4 mg capsule 0.8 mg PO QHS prostate 11/04/19 atorvastatin 40 mg tablet 40 mg PO QHS cholesterol #0 tabs 02/24/25 finasteride 5 mg tablet 5 mg PO QHS prostate 02/24/25 levothyroxine 100 mcg tablet (Synthroid) 100 mcg PO DAILY thyroid 02/24/25 metoprolol tartrate 25 mg tablet 25 mg PO BID BP #0 tabs 02/24/25 multivit,Ca,min-iron 8 mg-folic acid 200 mcg-lycopene 600 mcg tablet (Men's Daily Multivitamin) 1 tab PO DAILY supplement 02/24/25 apixaban 5 mg tablet (Eliquis) 5 mg PO BID 30 days #60 tabs 03/30/25 losartan 50 mg tablet 75 mg (1.5 x 50 mg) PO QHS 30 days #45 tabs 03/30/25 mirtazapine 15 mg tablet 7.5 mg (1/2 x 15 mg) PO QHS 30 days #15 tabs 03/30/25 pantoprazole 40 mg tablet,delayed release 40 mg PO BID 30 days #60 tabs 03/30/25 sucralfate 1 gram tablet 1 g PO BID 1 month #60 tabs 04/05/25 clopidogrel 75 mg tablet 75 mg PO QHS 04/17/25 Hospital Course Operations None Procedures None Summary of Care Provided Minutes Spent on Discharge: 37 Hospital Course: Per HPI: The patient is an 85 y/o M w/ PMHx: Former tobacco use, Chronic macrocytic anemia, Cluster headaches HTN, HLD, GERD w/ Hx GI bleed, Anxiety and Depression, CAD s/p CABG x 4 following NSTEMI admission 02/24/2025 at [facility], PAF, BPH with obstructive pathology, Hypothyroidism, CKD stage II per GFR trending who presents to the [facility] ED on 04/17/2025 with history of onset at 1530 on day of presentation altered slurred speech with reportedly a similar episode following his CABG reportedly going into A-fib perioperatively with no other focal neurological deficits prompting immediate ED evaluation with event occurring approximately 1.5 hours prior to ED arrival. Patient reportedly had actually been doing a puzzle with his when he had onset of the altered speech and when he got up to stand he did have mild lightheadedness but that has subsided. Stroke alert initiated prior to ED arrival workup in the ED included T98.9, heart rate 63, BP 181/92, respiratory rate 16, 100% on room air, CBC with WC 8.4, Hgb 11.2, MCV 94.7, platelet 205 without marked shift, unremarkable coags, BMP with BUN/creatinine 19/1.01, GFR 73, glucose 124, troponin initial 26, EKG with A-fib, rate controlled with no acute evidence of ischemia, CT brain with no acute intracranial finding with chronic evolution of ischemic gliotic white matter changes, CTA head and neck with moderate plaque formation in bilateral carotid bulbs and internal carotid arteries with no hemodynamically significant stenosis or occlusion in the head or neck, chest x-ray with no acute cardiopulmonary findings. Hospital Course: 1. TIA with slurred speech?85-year-old male presented to the hospital with slurred speech and concerns for possible stroke. His symptoms have completely resolved and MRI today did not demonstrate a stroke. He was seen by neurology who felt that this was likely a TIA however there is nothing more to do as he is on maximal therapy with Lipitor, Plavix, Eliquis. Symptoms have completely resolved by the day of discharge and I discussed with him the possibility for going home and he expressed understanding of the risks and benefits of going home and would like to go today. Of note he did not have an echocardiogram on this admission as he just had 1 on 02/24/2025 with an EF of 65% stage I diastolic dysfunction with moderate to severe mitral valve insufficiency and mild aortic valve regurgitation and no PFO was noted. 2. Coronary artery disease status post CABG, essential hypertension, hyperlipidemia, paroxysmal A-fib, hypothyroidism, anxiety, depression, GERD with a history of GI bleed, BPH with obstruction all chronic medical conditions which complicate his care. His home medications were continued where appropriate. Physical Exam Narrative General: Alert, Oriented x3, Cooperative, No apparent distress HEENT: Atraumatic, PERRLA, EOMI, Normocephalic Oral: Moist Mucosa Neck: Supple, No JVD Lungs: Diminished, Normal air movement, No rhonchi, No wheeze, No rales Cardiovascular: Regular rate, Regular Rhythm, Normal S1, Normal S2, No murmurs Abdomen: Soft, Non Tender, Non-Distended, No Hepato-splenomegaly Extremities: No edema, Capillary Refill Less than 3 Seconds Skin: No rashes, No breakdown Musculoskeletal: No Tenderness to Palpation of Joints or Extremities Neurological: No focal neurological deficits, moves all extremities, NIH of 0 Psych/Mental Status: Normal Affect, Appropriate Weight / BMI Weight Weight: 165 lb 9.074 oz Body Mass Index (BMI) 23.7 ABG / Lab / Microbiology Data 04/18/25 04:49 04/18/25 04:49 Radiography Diagnostic Testing: Radiology Impression Brain MRI 04/19/25 07:00 IMPRESSION: 1. No acute intracranial abnormality. 2. Age-related senescent changes. Reading Location: [id number] D/C Instructions Call your doctor if you observe: Fever of 101 or Higher, Shortness of breath, Dizziness, Fainting spells, Swelling in the ankles, Chest pain and Increased palpitations (irregular heartbeat) DC O2, CPAP, BIPAP Needs Home O2 Discharge instructions: No Meaningful Use Info Meaningful Use Meaningful Use Diagnoses (Choose all that apply): None applicable Discharge Plan Admission Admit Date/Time: 04/17/25 18:48 Attending Provider: Sree Cline Primary Care Provider: Daniel Damico Consulting Providers: Abdulkadir Ford; Giselle Shah; Kina Baum; Yue Hoover; Becca Jones; Brown López; Flor Holguin; Bharathi Zelaya; Gagandeep Salomon; Kumar Kumari; Shivani Dominguez; Joycelyn Boo; Manpreet Lemus; Niya Seaman; Sudheer Serna; Demetri Gutierres; Fco Cintron; Telma Kelley; Jc Pickering; Vero Jameson; Khari Wheat; Regla Jack Discharge Orders/Prescriptions Prescriptions: Continued tamsulosin 0.4 MG capsule 0.8 mg PO QHS clopidogrel 75 mg tablet 75 mg PO QHS levothyroxine [Synthroid] 100 mcg tablet 100 mcg PO DAILY finasteride 5 mg tablet 5 mg PO QHS Men's Daily Multivitamin 8 mg iron- 200 mcg-600 mcg tablet 1 tab PO DAILY atorvastatin 40 mg Tablet 40 mg PO QHS Qty: 0 0RF metoprolol tartrate 25 mg Tablet 25 mg PO BID Qty: 0 0RF losartan 50 mg Tablet 75 mg PO QHS 30 Days Qty: 45 0RF pantoprazole 40 mg Tablet,Delayed Release (Dr/Ec) 40 mg PO BID 30 Days Qty: 60 0RF mirtazapine 15 mg Tablet 7.5 mg PO QHS 30 Days Qty: 15 0RF Eliquis 5 mg Tablet 5 mg PO BID 30 Days Qty: 60 0RF sucralfate 1 gram tablet 1 g PO BID 30 Days Qty: 60 0RF Referrals / Follow Up: Daniel Damico MD [Primary Care Provider, [facility]] - 04/27/25 10:00 am Disposition Disposition (needs filled in before D/C Order can be placed): Home, Self Care Charges/Coding Visit Charges Inpatient E&M: 45792 Disch Hosp >30min
--- NOTE | 2025-04-19 13:36 | CASEMGMT ---
Social Work Per imaging pt negative for stroke, therefore PHQ9 not completed. JOSH Grovse
== END 2025-04-19 12:33 | disposition home or self-care (01) ==
LOC: ED 19:06 → PCU 19:32
PROVIDERS: Admitting Provider Family Medicine; Emergency Provider Emergency Medicine; PCP Family Medicine; Visit Provider Family Medicine
DX: G45.9 Transient cerebral ischemic attack, unspecified (principal); I48.0 Paroxysmal atrial fibrillation; Z79.02 Long term (current) use of antithrombotics/antiplatelets; I12.9 Hypertensive chronic kidney disease with stage 1 through stage 4 chronic kidney disease, or unspecified chronic kidney disease; I25.10 Atherosclerotic heart disease of native coronary artery without angina pectoris; N18.2 Chronic kidney disease, stage 2 (mild); Z95.1 Presence of aortocoronary bypass graft; K21.9 Gastro-esophageal reflux disease without esophagitis; E03.9 Hypothyroidism, unspecified; I25.2 Old myocardial infarction; Z87.891 Personal history of nicotine dependence; R47.81 Slurred speech; E78.5 Hyperlipidemia, unspecified; Z79.01 Long term (current) use of anticoagulants; Z79.890 Hormone replacement therapy; N40.1 Benign prostatic hyperplasia with lower urinary tract symptoms; D53.9 Nutritional anemia, unspecified; N13.8 Other obstructive and reflux uropathy; Z79.899 Other long term (current) drug therapy; Z66 Do not resuscitate
CPT/HCPCS: 70450; 70496; 70498; 70551; 71045; 80048; 80053; 80061; 82962; 83036; 83735; 84443; 84484; 85025; 85610; 85730; 92523; 93005; 94668; 94762; 96361; 96374; 97161; 97165; 97802; 99221; 99285; Q9967; A4216; G0378